=== PATIENT | female | born 1960 | race Caucasian/White ===

== ENCOUNTER 2017-09-27 08:07 | Emergency (ER) | payer SELFPAY ==
[2017-09-27 08:47] LABS: Absolute Lymphocytes (CBC) 1.7 K/uL (0.7-4.9); Absolute Monocytes 0.5 K/uL (0.1-1.3); Absolute Neutrophil 3.9 K/uL (1.8-8.0); Basophils % 0.5 % (0-1.3); Eosinophils % 0.3 % (0-4.4); Hematocrit 40.8 % (36.0-45.0); Lymphocytes % 27.5 % (15.3-44.8); MCH 35.8 pg (27.0-35.0); MCV 101.6 fL (80-100); MPV 8.2 fL (7.6-11.3); Monocytes % 8.5 % (3.3-12.3); RBC Red Blood Cell Count 4.02 M/uL (3.86-4.86)
[2017-09-27] MEDS ORDERED: NA CHLORIDE 0.9% 1,000 ML ONE (09:00)
[2017-09-27] MEDS ORDERED: ONDANSETRON 4 MG/2 ML VIAL ONE (09:00)
[2017-09-27 09:01] LABS: Potassium 3.8 mEq/L (3.6-5.0)
[2017-09-27 09:07] LABS: Bilirubin Direct 0.1 mg/dL (0-0.2); Protein, Total 8.7 g/dL (6.0-8.3)
--- NOTE | 2017-09-27 11:02 | RAD REPORT ---
EXAM DESCRIPTION: Jassi Everett (2 Views)09/27/2017 8:47 am CLINICAL HISTORY: Cough COMPARISON: 2016 FINDINGS: The lungs appear clear of acute infiltrate. The heart is normal size IMPRESSION: No acute abnormalities displayed
--- NOTE | 2017-09-27 11:18 | ER ---
Nurse's Notes [facility] Name: Billie Botello Age: 56 yrs Sex: Female : 1960 Arrival Date: 09/27/2017 Time: 08:09 Bed 7 Private MD: Diagnosis: Vomiting;Dehydration;Diarrhea, unspecified Presentation: 09/27 08:16 Presenting complaint: Patient states: "I have been sick a couple of days. I tried to go lk1 to work and I couldn't. I have indigestion and my arm is numb.". Transition of care: patient was not received from another setting of care. Onset of symptoms was September 23, 2017. Care prior to arrival: None. 08:16 Method Of Arrival: Ambulatory lk1 08:16 Acuity: NIKA 3 lk1 Triage Assessment: 08:18 General: Appears ill, Behavior is calm, cooperative, appropriate for age. Pain: lk1 Complains of pain in left clavicle and anterior aspect of left upper chest Pain currently is 7 out of 10 on a pain scale. GI: Reports vomiting. Historical: - Allergies: 08:18 Bactrim; lk1 - PMHx: 08:18 Diabetes - NIDDM; Hypertension; High Cholesterol; Pancreatitis; lk1 - PSHx: 08:18 ; lk1 - Immunization history:: Adult Immunizations up to date. - Social history:: Smoking status: Patient uses tobacco products, smokes one-half pack cigarettes per day. - Family history:: not pertinent. - Hospitalizations: : No recent hospitalization is reported. Screenin:43 Abuse screen: Denies threats or abuse. Denies injuries from another. Nutritional jl7 screening: No deficits noted. Tuberculosis screening: No symptoms or risk factors identified. Fall Risk IV access (20 points). Total Arias Fall Scale indicates No Risk (0-24 pts). Assessment: 08:43 General: Appears uncomfortable, Behavior is calm, cooperative, appropriate for age. jl7 Pain: Complains of pain in epigastric area Pain does not radiate. Pain Quality of pain is described as burning, Pain began this morning Is intermittent. Pain: Complains of pain in anterior aspect of left upper chest Pain does not radiate. Pain currently is 7 out of 10 on a pain scale. Pain began this morning Is continuous. Neuro: Level of Consciousness is awake, alert, obeys commands, Oriented to person, place, time, situation, Moves all extremities. Gait is steady, Speech is normal, Facial symmetry appears normal, Pupils are PERRLA. Cardiovascular: Heart tones S1 S2 present Patient's skin is warm and dry. Respiratory: Airway is patent Respiratory effort is even, unlabored, Respiratory pattern is regular, symmetrical, Breath sounds are clear bilaterally. GI: Abdomen is round non-distended, Bowel sounds present X 4 quads. : No signs and/or symptoms were reported regarding the genitourinary system. EENT: Derm: Skin is pink, warm \\T\\ dry. Musculoskeletal: No signs and/or symptoms reported regarding the musculoskeletal system. 09:45 Reassessment: No changes from previously documented assessment. Patient and/or family jl7 updated on plan of care and expected duration. Pain level reassessed. Patient is alert, oriented x 3, equal unlabored respirations, skin warm/dry/pink. 10:30 Reassessment: Assisted pt to bathroom, pt reported having diarrhea. Provider notified. jl7 Vital Signs: 08:18 BP 120 / 82; Pulse 101; Resp 18; Temp 97.8(TE); Pulse Ox 97% on R/A; Weight 83.91 kg lk1 (R); Height 5 ft. 4 in. (162.56 cm) (R); Pain 7/10; 08:42 BP 113 / 89; Pulse 87; Resp 16 S; Pulse Ox 98% on R/A; Pain 7/10; jl7 09:05 BP 121 / 88; Pulse 78; Resp 14 S; Pulse Ox 96% on R/A; jl7 09:30 BP 126 / 91; Pulse 71; Resp 14 S; Pulse Ox 97% on R/A; jl7 10:12 BP 130 / 83; Pulse 74; Resp 16 S; Pulse Ox 95% on R/A; jl7 11:25 BP 128 / 80; Pulse 73; Resp 16 S; Pulse Ox 97% on R/A; jl7 08:18 Body Mass Index 31.75 (83.91 kg, 162.56 cm) lk1 ED Course: 08:09 Patient arrived in ED. rg4 08:17 Triage completed. lk1 08:20 Arm band placed on right wrist. lk1 08:21 Hola Rodriguez MD is Attending Physician. rn 08:24 Barbara Schmitt, RN is Primary Nurse. jl7 08:42 Patient moved to radiology via wheelchair. jb2 08:43 X-ray completed. Patient tolerated procedure well. Patient moved back from radiology. jb2 08:43 XRAY Chest Pa And Lat (2 Views) In Process Unspecified. EDMS 08:43 Patient has correct armband on for positive identification. Placed in gown. Bed in low jl7 position. Call light in reach. Side rails up X 1. 7th grade teacher on. Pulse ox on. NIBP on. Warm blanket given. 08:43 Initial lab(s) drawn, by ca, sent to lab. Inserted saline lock: 20 gauge in left jl7 antecubital area, using aseptic technique. Blood collected. 08:46 EKG done, by renal dialysis technician. reviewed by Hola Rodriguez MD. tc 10:33 US Abdomen Limited In Process Unspecified. EDMS 11:30 No provider procedures requiring assistance completed. IV discontinued, intact, jl7 bleeding controlled, No redness/swelling at site. Pressure dressing applied. Administered Medications: 09:02 Drug: NS 0.9% 1000 ml Route: IV; Rate: 1000 ml; Site: left antecubital; jl7 10:00 Follow up: Response: No adverse reaction; IV Status: Completed infusion jl7 09:03 Drug: Zofran 4 mg Route: IVP; Site: left antecubital; jl7 09:30 Follow up: Response: No adverse reaction; Nausea is decreased jl7 Outcome: 11:17 Discharge ordered by . rn 11:30 Discharged to home ambulatory. jl7 11:30 Condition: stable 11:30 Discharge instructions given to patient, Instructed on discharge instructions, follow up and referral plans. medication usage, Demonstrated understanding of instructions, follow-up care, medications, Prescriptions given X 1. 11:31 Patient left the ED. jl7 Signatures: Dispatcher [employer] EDVT Steven Stiles jb2 Hola Rodriguez MD MD rn Callis, Tiffany, car head liner installer EKG Ttc Kate Rajput RN RN susan1 Sharla Abarca rg4 Barbara Schmitt, RN RN jl7
--- NOTE | 2017-09-27 11:18 | EDPHYS ---
Physician Documentation [facility] Name: Billie Botello Age: 56 yrs Sex: Female : 1960 Arrival Date: 09/27/2017 Time: 08:09 Bed 7 Private MD: ED Physician Hola Rodriguez HPI: 09/27 09:28 This 56 yrs old Female presents to ER via Ambulatory with complaints of rn Vomiting, Numbness Of Arm. 09:28 The patient presents to the emergency department with nausea, vomiting, abdominal pain, rn of the epigastric area and right upper quadrant. Onset: The symptoms/episode began/occurred today. Possible causes: unknown. The symptoms are aggravated by nothing. The symptoms are alleviated by nothing. Severity of symptoms: At their worst the symptoms were moderate in the emergency department the symptoms are unchanged. The patient has not experienced similar symptoms in the past. The patient has not recently seen a physician. Reports epigastric abd pain, RUQ pain, began just prior to arrival, has been having non-bilious/non-bloody emesis for 4 days, no chest pain, reports numbness of left arm today, has had multiple chest pain w/u here in this hospital with no abnormalities. Normal stool. . Historical: - Allergies: 08:18 Bactrim; lk1 - PMHx: 08:18 Diabetes - NIDDM; Hypertension; High Cholesterol; Pancreatitis; lk1 - PSHx: 08:18 ; lk1 - Immunization history:: Adult Immunizations up to date. - Social history:: Smoking status: Patient uses tobacco products, smokes one-half pack cigarettes per day. - Family history:: not pertinent. - Hospitalizations: : No recent hospitalization is reported. ROS: 09:28 Constitutional: Negative for fever, chills, and weight loss, Eyes: Negative for injury, rn pain, redness, and discharge, Neck: Negative for injury, pain, and swelling, Cardiovascular: Negative for chest pain, palpitations, and edema, Respiratory: Negative for shortness of breath, cough, wheezing, and pleuritic chest pain, Abdomen/GI: Negative for diarrhea, and constipation, Back: Negative for injury and pain, MS/Extremity: Negative for injury and deformity, Skin: Negative for injury, rash, and discoloration, Neuro: Negative for headache, weakness, and seizure. Exam: :28 Constitutional: This is a well developed, well nourished patient who is awake, alert, rn appears uncomfortable, holding right side Head/Face: Normocephalic, atraumatic. Eyes: Pupils equal round and reactive to light, extra-ocular motions intact. Lids and lashes normal. Conjunctiva and sclera are non-icteric and not injected. Cornea within normal limits. Periorbital areas with no swelling, redness, or edema. Neck: Trachea midline, no thyromegaly or masses palpated, and no cervical lymphadenopathy. Supple, full range of motion without nuchal rigidity, or vertebral point tenderness. No Meningismus. Cardiovascular: Regular rate and rhythm with a normal S1 and S2. No gallops, murmurs, or rubs. Normal PMI, no JVD. No pulse deficits. Respiratory: Lungs have equal breath sounds bilaterally, clear to auscultation and percussion. No rales, rhonchi or wheezes noted. No increased work of breathing, no retractions or nasal flaring. Abdomen/GI: soft, + epigastric and RUQ tenderness, no rebound, neg bautista Skin: Warm, dry with normal turgor. Normal color with no rashes, no lesions, and no evidence of cellulitis. MS/ Extremity: Pulses equal, no cyanosis. Neurovascular intact. Full, normal range of motion. Equal circumference. Neuro: Awake and alert, GCS 15, oriented to person, place, time, and situation. Cranial nerves II-XII grossly intact. Motor strength 5/5 in all extremities. Sensory grossly intact. 09:36 ECG was reviewed by the Attending Physician. rn Vital Signs: 08:18 BP 120 / 82; Pulse 101; Resp 18; Temp 97.8(TE); Pulse Ox 97% on R/A; Weight 83.91 kg lk1 (R); Height 5 ft. 4 in. (162.56 cm) (R); Pain 7/10; 08:42 BP 113 / 89; Pulse 87; Resp 16 S; Pulse Ox 98% on R/A; Pain 7/10; jl7 09:05 BP 121 / 88; Pulse 78; Resp 14 S; Pulse Ox 96% on R/A; jl7 09:30 BP 126 / 91; Pulse 71; Resp 14 S; Pulse Ox 97% on R/A; jl7 10:12 BP 130 / 83; Pulse 74; Resp 16 S; Pulse Ox 95% on R/A; jl7 11:25 BP 128 / 80; Pulse 73; Resp 16 S; Pulse Ox 97% on R/A; jl7 08:18 Body Mass Index 31.75 (83.91 kg, 162.56 cm) lk1 MDM: 08:21 Patient medically screened. rn 11:16 Differential diagnosis: gastritis, cholecystitis, pancreatitis, viral gastroenteritis, rn gastroenteritis. Data reviewed: vital signs, nurses notes, lab test result(s), EKG, radiologic studies, plain films, ultrasound, and as a result, I will discharge patient. Counseling: I had a detailed discussion with the patient and/or guardian regarding: the historical points, exam findings, and any diagnostic results supporting the discharge/admit diagnosis, lab results, radiology results, the need for outpatient follow up, to return to the emergency department if symptoms worsen or persist or if there are any questions or concerns that arise at home. Special discussion: I discussed with the patient/guardian in detail that at this point there is no indication for admission to the hospital. It is understood, however, that if the symptoms persist or worsen the patient needs to return immediately for re-evaluation. ED course: Pt now reports has been having concomitant diarrhea as well, no blood or dark color. Labs consistent with mild dehydration, normal WBC, normal h/h, normal u/s gallbladder, will dc home with zofran prn and pcp f/u. . 09/27 08:28 Order name: Basic Metabolic Panel; Complete Time: 09: rn 09/27 08:28 Order name: CBC with Diff; Complete Time: : rn 09/27 08:28 Order name: Creatinine for Radiology; Complete Time: : rn 09/27 08:28 Order name: Hepatic Function; Complete Time: 09: rn 09/27 08:28 Order name: Lipase; Complete Time: :09/27 08:28 Order name: Urine Microscopic Only rn 09/27 08:28 Order name: XRAY Chest Pa And Lat (2 Views); Complete Time: 11:15 09/27 08:28 Order name: Troponin (emerg Dept Use Only); Complete Time: 09: rn 09/27 08:28 Order name: EKG; Complete Time: 08:29 rn 09/27 10:07 Order name: US Abdomen Limited rn 09/27 11:30 Order name: Urine Dipstick--Ancillary (enter results) bd 09/27 11:31 Order name: Urine Dipstick-Ancillary EDMA 09/27 08:28 Order name: IV Saline Lock; Complete Time: 08:42 rn 09/27 08:28 Order name: Labs collected and sent; Complete Time: 08:42 rn 09/27 08:28 Order name: Urine Dipstick-Ancillary (obtain specimen); Complete Time: 13:28 rn 09/27 08:28 Order name: EKG - Nurse/Tech; Complete Time: 08:42 rn EC:36 Rate is 89 beats/min. Rhythm is regular. QRS [place] is Normal. [place] interval is normal. QRS rn interval is normal. QT interval is normal. No Q waves. T waves are Normal. No ST changes noted. Clinical impression: NSR w/ Non-specific ST/T Changes. Interpreted by me. Administered Medications: 09:02 Drug: NS 0.9% 1000 ml Route: IV; Rate: 1000 ml; Site: left antecubital; jl7 10:00 Follow up: Response: No adverse reaction; IV Status: Completed infusion jl7 09:03 Drug: Zofran 4 mg Route: IVP; Site: left antecubital; jl7 09:30 Follow up: Response: No adverse reaction; Nausea is decreased jl7 Disposition: 09/27/17 11:17 Discharged to Home. Impression: Vomiting, Dehydration, Diarrhea, unspecified. - Condition is Stable. - Discharge Instructions: Dehydration, Adult, Diarrhea, Nausea and Vomiting, Viral Gastroenteritis. - Prescriptions for Zofran ODT 4 mg Oral tablet,disintegrating - place 1 tablet by TRANSLINGUAL route every 8-10 hours As needed; 15 tablet. - Work release form, Medication Reconciliation Form, Thank You Letter, Antibiotic Education, Prescription Opioid Use form. - Follow up: Private Physician; When: As needed; Reason: Recheck today's complaints, Re-evaluation by your physician. - Problem is new. - Symptoms have improved. Signatures: Dispatcher [employer] EDMA Hola Rodriguez MD MD rn Kluge, Leah, RN RN lk1 Barbara Schmitt RN RN jl7
[2017-09-27 11:32] LABS: Urine Blood TRACE (NEG); Urine Glucose NEGATIVE (NEG); Urine Protein 3+ (NEG)
[2017-09-27 11:36] VITALS: TEMP 97.8
--- NOTE | 2017-09-27 11:37 | RAD REPORT ---
EXAM DESCRIPTION: US - Abdomen Exam Limited - 09/27/2017 10:33 am CLINICAL HISTORY: Right upper quadrant pain COMPARISON: May 2017 FINDINGS: No gallstones, sludge or other abnormalities within the gallbladder lumen. There is no wal l thickening or pericholecystic fluid. No common duct stone or biliary tree dilatation identified. IMPRESSION: Normal gallbladder and biliary tree ultrasound.
[2017-09-27 11:45] VITALS: BP 128/80; O2SAT 97
[2017-09-27 12:30] LABS: Urine Bacteria 20-50 /HPF (<20); Urine RBC <5 /HPF (NONE SEEN)
[2017-09-27 12:31] LABS: Urine Amorphous Sediment 2+ /HPF (NONE SEEN)
--- NOTE | 2017-09-27 16:27 | EKG ---
Test Date: 2017-09-27 Test Time: 08:26:27 Marine Consultant: NELA MEASUREMENT RESULTS: Intervals: Rate: 89 MI: 146 QRSD: 74 QT: 406 QTc: 493 [place]: P: -8 MI: 146 QRS: 17 T: 34 INTERPRETIVE STATEMENTS: Normal sinus rhythm Cannot rule out Anterior infarct, age undetermined Abnormal ECG Compared to ECG 08/14/2017 10:04:08 Myocardial infarct finding now present Electronically Signed On 09-27-17 16:24:59 CDT by Doug Gold
== END 2017-09-27 11:31 | disposition home or self-care (01) ==
LOC: ER 08:07
DX: I10 Essential (primary) hypertension; Z88.1 Allergy status to other antibiotic agents; F17.210 Nicotine dependence, cigarettes, uncomplicated; E86.0 Dehydration; R19.7 Diarrhea, unspecified
CPT/HCPCS: 36415; 71046; 76705; 80048; 80076; 81003; 81015; 83690; 84484; 85025; 93005; 96361; 96374; 99285; J2405; J7030

== ENCOUNTER 2017-12-06 09:16 | Emergency (ER) | payer SELFPAY ==
--- OUTSIDE RECORDS SUMMARY | 2017-12-06 09:19 | XMS REPORT ---
:1960 Author Organization e[employer] Care Team Providers Name Role Phone Nancy Oliva Provider Role Unavailable Allergies No Known Allergies Problems Problem Type Condition Code Onset Dates Condition Status Problem Type 2 diabetes mellitus without E11.9 Active complication Problem History of hypokalemia Z86.39 Active Problem Pain in left knee M25.562 Active Problem Vitamin D deficiency E55.9 Active Problem Other chronic pain G89.29 Active Problem Dizziness R42 Active Problem Uncontrolled type 2 diabetes E11.65 Active mellitus without complication, without long-term current use of insulin Problem Hypertension, unspecified type I10 Active Problem Hyperlipidemia, unspecified E78.5 Active hyperlipidemia type Problem Hypothyroidism, unspecified type E03.9 Active Problem Hyperlipidemia E78.5 Active Problem Hypothyroidism E03.9 Active Problem Depression F32.9 Active Problem Hypertension I10 Active Problem Allergic rhinitis, seasonal J30.2 Active Medications No Known Medications Results No Known Results Summary Purpose [employer] Submission
--- OUTSIDE RECORDS SUMMARY | 2017-12-06 09:19 | XMS REPORT ---
[...] Medications Results No Known Results Summary Purpose [employer] Submission
--- OUTSIDE RECORDS SUMMARY | 2017-12-06 09:19 | XMS REPORT ---
[...] Medications Results No Known Results Summary Purpose [employer] Submission
--- OUTSIDE RECORDS SUMMARY | 2017-12-06 09:19 | XMS REPORT ---
[...] Problem Allergic rhinitis, seasonal J30.2 Active Medications Medication Code Code Instructions Start End Date Status Dosage System Date Metformin HCl [facility] 29366256979 1000 MG Orally October 28, Active 1 tablet Twice a day 2017 with a meal Results No Known Results Summary Purpose [employer] Submission
--- OUTSIDE RECORDS SUMMARY | 2017-12-06 09:19 | XMS REPORT ---
:1960 Author Organization e[employer] Care Team Providers Name Role Phone Nancy Oliva Provider Role Unavailable Allergies, Adverse Reactions, Alerts Substance Reaction Event Type Sulfa Info Not Available Drug Allergy Problems Problem Type Condition Code Onset Dates Condition Status Problem Type 2 diabetes mellitus without E11.9 Active complication Problem History of hypokalemia Z86.39 Active Problem Pain in left knee M25.562 Active Problem Vitamin D deficiency E55.9 Active Assessment Uncontrolled type 2 diabetes E11.65 Active mellitus without complication, without long-term current use of insulin Problem Other chronic pain G89.29 Active Assessment Hyperlipidemia, unspecified E78.5 Active hyperlipidemia type Assessment Hypothyroidism, unspecified type E03.9 Active Problem Dizziness R42 Active Problem Uncontrolled type 2 diabetes E11.65 Active mellitus without complication, without long-term current use of insulin Problem Hypertension, unspecified type I10 Active Problem Hyperlipidemia, unspecified E78.5 Active hyperlipidemia type Problem Hypothyroidism, unspecified type E03.9 Active Assessment Dizziness R42 Active Assessment Other chronic pain G89.29 Active Assessment History of hypokalemia Z86.39 Active Assessment Hypertension, unspecified type I10 Active Problem Hyperlipidemia E78.5 Active Problem Hypothyroidism E03.9 Active Assessment Pain in left knee M25.562 Active Problem Depression F32.9 Active Assessment Vitamin D deficiency E55.9 Active Problem Hypertension I10 Active Problem Allergic rhinitis, seasonal J30.2 Active Medications Medication Code Code Instructions Start End Status Dosage System Date Date Cardura [facility] 09337075041 1 MG Orally Active 1 tablet Once a day Carvedilol [facility] 55562512421 12.5 MG Orally Active 1 tablet Twice daily Vitamin C [facility] 66128-53452 Orally Once a Active 1 tablet day Clonidine HCl [facility] 93103424095 0.1 MG Orally Active 1 tablet Once daily at bedtime Nitrofurantoin Monohyd [facility] 79708894676 100 MG Oral Active not Macro defined MetFORMIN HCl ER (OSM) ND 39017365155 1000 MG Orally October Active 1 tablet Twice daily 24, 2018 Simvastatin [facility] 18617047978 20 mg Orally Active 1 tablet Once a day Levothyroxine Sodium [facility] 78899290413 25 MCG Orally Active 1 tablet Once a day on an empty stomach in the morning Lisinopril [facility] 20416621515 20 mg Orally Active 1 tablet Once a day Potassium ND 0 Orally Once a Active 1 tablet day Hydrochlorothiazide [facility] 40843923703 12.5 MG Oral Active not defined Ondansetron [facility] 24362563880 4 MG Oral Active not defined Metformin HCl [facility] 18166112924 1000 MG Orally Active 1 tablet Twice a day with a meal Vitamin D-400 [facility] 9[address]70-60508 Orally Once a Active not day defined Results No Known Results Summary Purpose [employer] Submission
[2017-12-06] MEDS ORDERED: NA CHLORIDE 0.9% 500 ML ONE (10:38)
[2017-12-06 10:46] LABS: Absolute Lymphocytes (CBC) 1.2 K/uL (0.7-4.9); Absolute Monocytes 0.4 K/uL (0.1-1.3); Absolute Neutrophil 5.3 K/uL (1.8-8.0); Basophils % 0.5 % (0-1.3); Eosinophils % 0.9 % (0-4.4); Hematocrit 37.4 % (36.0-45.0); Lymphocytes % 17.1 % (15.3-44.8); MCH 35.6 pg (27.0-35.0); MCV 105.8 fL (80-100); MPV 8.4 fL (7.6-11.3); Monocytes % 5.8 % (3.3-12.3); RBC Red Blood Cell Count 3.53 M/uL (3.86-4.86)
[2017-12-06 10:48] LABS: Potassium 3.1 mEq/L (3.6-5.0)
[2017-12-06 10:59] LABS: Magnesium 1.4 mg/dL (1.8-2.5)
[2017-12-06] MEDS ORDERED: POTASSIUM CL SA 10 MEQ TAB PO ONE (11:03)
[2017-12-06] MEDS ORDERED: Magnesium Sulfate 2gm IVPB 2 G/50 ML BAG IV ONE (11:03)
[2017-12-06] MEDS ORDERED: ONDANSETRON 4 MG/2 ML VIAL ONE (11:03)
[2017-12-06 12:12] LABS: Urine Blood TRACE (NEG); Urine Glucose NEGATIVE (NEG); Urine Protein 2+ (NEG)
--- NOTE | 2017-12-06 12:50 | EDPHYS ---
Physician Documentation [facility] Name: Billie Botello Age: 57 yrs Sex: Female : 1960 Arrival Date: 12/06/2017 Time: 09:26 Bed 19 Private MD: ED Physician Hola Rodriguez HPI: 12/06 10:12 This 57 yrs old Female presents to ER via EMS with complaints of High Blood cp Sugar. 10:12 The patient or guardian reports hyperglycemia, dizziness that was potentially cp precipitated by no particular event, with the patient's symptoms witnessed by co-worker. Onset: The symptoms/episode began/occurred this morning. Associated signs and symptoms: Pertinent positives: dizziness. Historical: - Allergies: 09:30 Bactrim; jl7 - Home Meds: 09:30 carvedilol 6.25 mg Oral tab 2 tabs 2 times per day [Active]; lisinopril 20 mg Oral tab jl7 1 tab once daily [Active]; metformin 1,000 mg Oral tab [Active]; simvastatin 20 mg Oral tab 1 tab once daily [Active]; levothyroxine oral [Active]; - PMHx: 09:30 Diabetes - NIDDM; Hypertension; High Cholesterol; Pancreatitis; jl7 - PSHx: 09:30 Appendectomy; jl7 - Immunization history:: Adult Immunizations. - Social history:: Smoking status: Patient uses tobacco products, smokes one-half pack cigarettes per day, Patient uses alcohol, weekly. "About a pint of rum per week.". - Ebola Screening: : No symptoms or risks identified at this time. ROS: 10:20 Constitutional: Negative for body aches, chills, fever, poor PO intake. cp 10:20 Eyes: Negative for injury, pain, redness, and discharge. cp 10:20 ENT: Negative for drainage from ear(s), ear pain, sore throat, difficulty swallowing, difficulty handling secretions. 10:20 Neck: Negative for pain with movement, pain at rest, stiffness, tenderness. 10:20 Cardiovascular: Negative for chest pain, edema, palpitations. 10:20 Respiratory: Negative for cough, shortness of breath, wheezing. 10:20 Abdomen/GI: Negative for abdominal pain, nausea, vomiting, and diarrhea, constipation, anorexia, black/tarry stool, rectal bleeding. 10:20 Back: Negative for pain at rest, pain with movement, radiated pain. 10:20 : Negative for urinary symptoms, vaginal bleeding, vaginal discharge. 10:20 Skin: Negative for cellulitis, rash. 10:20 Neuro: Positive for dizziness, Negative for altered mental status, gait disturbance, headache, syncope, near syncope, weakness. 10:20 Endocrine: Positive for hyperglycemia, Negative for weight gain, weight loss. 10:20 All other systems are negative. Exam: 10:25 Constitutional: The patient appears in no acute distress, alert, awake, cp non-diaphoretic, non-toxic, well developed, well nourished. 10:25 Head/Face: Normocephalic, atraumatic. Eyes: Pupils equal round and reactive to light, cp extra-ocular motions intact. Lids and lashes normal. Conjunctiva and sclera are non-icteric and not injected. Cornea within normal limits. Periorbital areas with no swelling, redness, or edema. ENT: Nares patent. No nasal discharge, no septal abnormalities noted. Tympanic membranes are normal and external auditory canals are clear. Oropharynx with no redness, swelling, or masses, exudates, or evidence of obstruction, uvula midline. Mucous membranes moist. 10:25 Neck: External neck: is normal, ROM/movement: is normal, is supple, without pain, no range of motions limitations, no nuchal rigidity, Lymph nodes: no appreciated lymphadenopathy. 10:25 Chest/axilla: Inspection: normal, Palpation: is normal, no crepitus, no tenderness. 10:25 Cardiovascular: Rate: normal, Rhythm: regular, Pulses: Pulses are 2+ in right radial artery and left radial artery. Heart sounds: murmur, not appreciated, Edema: is not appreciated, JVD: is not appreciated. 10:25 Respiratory: the patient does not display signs of respiratory distress, Respirations: normal, no use of accessory muscles, no retractions, no splinting, no tachypnea, labored breathing, is not present, Breath sounds: are clear throughout, no decreased breath sounds, no stridor, no wheezing. 10:25 Abdomen/GI: Inspection: abdomen appears normal, Bowel sounds: active, all quadrants, Palpation: abdomen is soft and non-tender, in all quadrants, rebound tenderness, is not appreciated, voluntary guarding, is not appreciated, involuntary guarding, is not appreciated. 10:25 Back: pain, is absent, ROM is normal. 10:25 Skin: cellulitis, is not appreciated, no rash present. 10:25 Neuro: Orientation: to person, place \\T\\ time. Mentation: lucid, able to follow commands, Cerebellar function: is grossly normal, Motor: moves all fours, strength is normal, Sensation: no obvious gross deficits, Gait: is steady, at a normal pace, without difficulty. 11:42 ECG was reviewed by the Attending Physician. Vital Signs: 09:30 BP 115 / 75; Pulse 81; Resp 16 S; Temp 98.6(O); Pulse Ox 97% on R/A; Weight 81.65 kg jl7 (R); Height 5 ft. 4 in. (162.56 cm) (R); Pain 0/10; 10:37 BP 111 / 78 Supine; Pulse 87; Resp 20; Pulse Ox 96% ; 7 10:38 BP 126 / 86 Sitting; Pulse 92; Resp 21; Pulse Ox 98% ; 7 10:40 BP 106 / 86 Standing; Pulse 99; Resp 18; Pulse Ox 100% ; 7 11:46 BP 121 / 79; Pulse 96; Resp 17; Pulse Ox 94% on R/A; 5 12:45 BP 130 / 82; Pulse 85; Resp 16; Pulse Ox 100% ; 7 12:59 BP 115 / 87; Pulse 86; Resp 18; Pulse Ox 96% on R/A; 5 09:30 Body Mass Index 30.90 (81.65 kg, 162.56 cm) 7 MDM: 09:50 Patient medically screened. 11:00 Differential diagnosis: DKA, hyperglycemia, UTI, electrolyte abnormality, cardiac cp arrythmia. 12:48 Data reviewed: vital signs, nurses notes, lab test result(s), EKG, and as a result, I will discharge patient. 12:48 Test interpretation: by ED physician or midlevel provider: ECG. 12/06 10:10 Order name: CBC with Diff; Complete Time: 10:59 12/06 10:59 Interpretation: Normal except: RBC 3.53; MCV 105.8; MCH 35.6; BROOKS% 75.7. 12/06 10:10 Order name: BMP; Complete Time: 11:00 12/06 11:00 Interpretation: Normal except: K 3.1; CL 97; GLUC 143; BUN 35; CRE 1.41; GFR 38. cp / 10:10 Order name: Magnesium; Complete Time: 12:48 cp 05 12:48 Interpretation: Abnormal: MG 1.4. cp 12/06 11:57 Order name: Urine Dipstick--Ancillary (enter results); Complete Time: 12:48 bd 12/06 11:57 Order name: Urine --Ancillary (enter results); Complete Time: 12:48 bd 12/06 10:10 Order name: Orthostatics; Complete Time: 10:49 cp 12/06 10:10 Order name: Urine Dipstick-Ancillary (obtain specimen); Complete Time: 10:49 cp 12/06 10:10 Order name: Urine Test (obtain specimen); Complete Time: 10:49 cp 12/06 10:10 Order name: EKG; Complete Time: 10:10 cp EC:42 Rate is 86 beats/min. Rhythm is regular. OR interval is normal. QRS interval is normal. cp QT interval is normal. No ST changes noted. Interpreted by me. Reviewed by me. Administered Medications: 10:49 Drug: NS 0.9% 500 ml Route: IV; Rate: bolus; Site: right antecubital; jl7 11:08 Drug: Zofran 4 mg Route: IVP; Site: right antecubital; jl7 11:10 Drug: Magnesium Sulfate 2 grams Route: IVPB; Infused Over: 2 hrs; Site: right jl7 antecubital; 11:12 Drug: Potassium Chloride 40 mEq Route: PO; jl7 Point of Care Testing: Blood Glucose: 09:30 Blood Glucose: 167 mg/dL; jl7 Ranges: Critical Glucose Levels:Adult <50 mg/dl or >400 mg/dl <40 mg/dl or >180 mg/dl Disposition: 13:36 Co-signature as Attending Physician, Hola Rodriguez MD., rn 12/07 07:18 Co-signature as Attending Physician, Hola Rodriguez MD. rn Disposition: 12/06/17 12:49 Discharged to Home. Impression: Diabetes mellitus due to underlying condition with hyperglycemia, Hypomagnesemia, Hypokalemia. - Condition is Stable. - Discharge Instructions: Potassium Content of Foods, Hypomagnesemia, Blood Glucose Monitoring, Adult, Diabetes Mellitus and Food. - Prescriptions for magnesium - take 400 milligram by ORAL route once daily for 3 days; 3 tablet. Potassium Chloride 10 mEq Oral Capsule, Sustained Release - take 1 tablet by ORAL route every 12 hours for 3 days; 6 tablet. - Medication Reconciliation Form, Thank You Letter, Antibiotic Education, Prescription Opioid Use, Work release form form. - Follow up: Private Physician; When: 1 - 2 days; Reason: Recheck today's complaints. - Problem is new. - Symptoms have improved. Signatures: Dispatcher [employer] EDMS Hola Rodriguez MD MD rn Dallas Trujillo PA PA cp Leal, Jahala, RN RN jl7 Corrections: (The following items were deleted from the chart) 12/06 13:06 12:49 12/06/2017 12:49 Discharged to Home. Impression: Diabetes mellitus due to jl7 underlying condition with hyperglycemia; Hypomagnesemia; Hypokalemia. Condition is Stable. Forms are Medication Reconciliation Form, Thank You Letter, Antibiotic Education, Prescription Opioid Use. Follow up: Private Physician; When: 1 - 2 days; Reason: Recheck today's complaints. Problem is new. Symptoms have improved. cp
--- NOTE | 2017-12-06 12:50 | ER ---
Nurse's Notes [facility] Name: Billie Botello Age: 57 yrs Sex: Female : 1960 Arrival Date: 12/06/2017 Time: 09:26 Bed 19 Private MD: Diagnosis: Diabetes mellitus due to underlying condition with hyperglycemia;Hypomagnesemia;Hypokalemia Presentation: 12/06 09:26 Presenting complaint: EMS states: She was at work and started feeling shaky, FSBS was jl7 187 then checked again and it was 230. It was 201 for us. BP is on the low end for her 103/76, normal is 120/80, reported getting lightheaded when standing. Transition of care: patient was not received from another setting of care. Onset of symptoms was December 06, 2017 at 08:30. Risk Assessment: Do you want to hurt yourself or someone else? Patient reports no desire to harm self or others. Initial Sepsis Screen: Does the patient meet any 2 criteria? No. Patient's initial sepsis screen is negative. Does the patient have a suspected source of infection? No. Patient's initial sepsis screen is negative. Care prior to arrival: None. 09:26 Method Of Arrival: EMS: [facility] jl7 09:26 Acuity: NIKA 3 jl7 Triage Assessment: 09:30 General: Appears in no apparent distress. uncomfortable, Behavior is calm, Pt reports jl7 "I feel a lot better than I did when I was at work.". Pain: Denies pain. EENT: No deficits noted. Neuro: Level of Consciousness is awake, alert, obeys commands, Oriented to person, place, time, situation. Cardiovascular: Patient's skin is warm and dry. Respiratory: Airway is patent Respiratory effort is even, unlabored, Respiratory pattern is regular, symmetrical. GI: No signs and/or symptoms were reported involving the gastrointestinal system. Patient currently denies diarrhea, nausea, vomiting. : No signs and/or symptoms were reported regarding the genitourinary system. Derm: Skin is pink, warm \\T\\ dry. Musculoskeletal: No signs and/or symptoms reported regarding the musculoskeletal system. Historical: - Allergies: 09:30 Bactrim; jl7 - Home Meds: 09:30 carvedilol 6.25 mg Oral tab 2 tabs 2 times per day [Active]; lisinopril 20 mg Oral tab jl7 1 tab once daily [Active]; metformin 1,000 mg Oral tab [Active]; simvastatin 20 mg Oral tab 1 tab once daily [Active]; levothyroxine oral [Active]; - PMHx: 09:30 Diabetes - NIDDM; Hypertension; High Cholesterol; Pancreatitis; jl7 - PSHx: 09:30 Appendectomy; jl7 - Immunization history:: Adult Immunizations. - Social history:: Smoking status: Patient uses tobacco products, smokes one-half pack cigarettes per day, Patient uses alcohol, weekly. "About a pint of rum per week.". - Ebola Screening: : No symptoms or risks identified at this time. Screenin:33 Abuse screen: Denies threats or abuse. Denies injuries from another. Nutritional [facility] screening: No deficits noted. Tuberculosis screening: No symptoms or risk factors identified. Fall Risk IV access (20 points). Total Arias Fall Scale indicates No Risk (0-24 pts). Assessment: 10:59 Reassessment: Mag 1.4, provider notified of critical value. 7 Vital Signs: 09:30 BP 115 / 75; Pulse 81; Resp 16 S; Temp 98.6(O); Pulse Ox 97% on R/A; Weight 81.65 kg 7 (R); Height 5 ft. 4 in. (162.56 cm) (R); Pain 0/10; 10:37 BP 111 / 78 Supine; Pulse 87; Resp 20; Pulse Ox 96% ; 7 10:38 BP 126 / 86 Sitting; Pulse 92; Resp 21; Pulse Ox 98% ; 7 10:40 BP 106 / 86 Standing; Pulse 99; Resp 18; Pulse Ox 100% ; jl7 11:46 BP 121 / 79; Pulse 96; Resp 17; Pulse Ox 94% on R/A; 5 12:45 BP 130 / 82; Pulse 85; Resp 16; Pulse Ox 100% ; 7 12:59 BP 115 / 87; Pulse 86; Resp 18; Pulse Ox 96% on R/A; 5 09:30 Body Mass Index 30.90 (81.65 kg, 162.56 cm) [facility] ED Course: 09:26 Patient arrived in ED. 7 09:28 Triage completed. 7 09:30 Arm band placed on right wrist. jl7 09:33 Patient has correct armband on for positive identification. Placed in gown. Bed in low jl7 position. Call light in reach. Side rails up X 1. Pulse ox on. NIBP on. Warm blanket given. 09:50 Dallas Trujillo PA is PHCP. cp 09:50 Hola Rodriguez MD is Attending Physician. cp 09:59 Barbara Schmitt, RN is Primary Nurse. jl7 11:47 EKG done, by icu tech. reviewed by Dallas GARCIA. at1 13:06 No provider procedures requiring assistance completed. IV discontinued, intact, jl7 bleeding controlled, No redness/swelling at site. Pressure dressing applied. Administered Medications: 10:49 Drug: NS 0.9% 500 ml Route: IV; Rate: bolus; Site: right antecubital; jl7 11:08 Drug: Zofran 4 mg Route: IVP; Site: right antecubital; jl7 11:10 Drug: Magnesium Sulfate 2 grams Route: IVPB; Infused Over: 2 hrs; Site: right jl7 antecubital; 11:12 Drug: Potassium Chloride 40 mEq Route: PO; jl7 Point of Care Testing: Blood Glucose: 09:30 Blood Glucose: 167 mg/dL; jl7 Ranges: Outcome: 12:49 Discharge ordered by . cp 13:06 Discharged to home ambulatory. jl7 13:06 Condition: stable 13:06 Discharge instructions given to patient, Instructed on discharge instructions, follow up and referral plans. medication usage, Demonstrated understanding of instructions, follow-up care, medications, Prescriptions given X 2. 13:06 Patient left the ED. jl7 Signatures: Massiel centeno, commercial kitchen service technician EKG Tat1 Dallas Trujillo PA PA Rohini Carrillo 5 Barbara cShmitt, RN RN jl7
[2017-12-06 13:11] VITALS: TEMP 98.6
[2017-12-06 13:14] VITALS: O2SAT 100
[2017-12-06 13:15] VITALS: BP 130/82
--- NOTE | 2017-12-06 13:41 | EKG ---
Test Date: 2017-12-06 Test Time: 11:36:48 Resaw Machine Operator: STORM MEASUREMENT RESULTS: Intervals: Rate: 86 MO: 198 QRSD: 72 QT: 396 QTc: 473 [place]: P: 57 MO: 198 QRS: 8 T: 40 INTERPRETIVE STATEMENTS: Normal sinus rhythm Cannot rule out Anterior infarct, age undetermined Abnormal ECG Compared to ECG 09/27/2017 08:26:27 No significant changes Electronically Signed On 12-06-17 13:40:29 CDT by Doug Gold
== END 2017-12-06 13:06 | disposition home or self-care (01) ==
LOC: ER 09:16
DX: E11.65 Type 2 diabetes mellitus with hyperglycemia (principal); E83.42 Hypomagnesemia; E87.6 Hypokalemia; I10 Essential (primary) hypertension; E78.00 Pure hypercholesterolemia, unspecified; F17.210 Nicotine dependence, cigarettes, uncomplicated; Z88.1 Allergy status to other antibiotic agents
CPT/HCPCS: 36415; 80048; 81003; 81025; 82962; 83735; 85025; 93005; 96374; 96375; 99284; J2405; J3475

== ENCOUNTER 2017-12-29 08:52 | Inpatient (IN) | payer SELFPAY ==
--- OUTSIDE RECORDS SUMMARY | 2017-12-29 08:54 | XMS REPORT ---
[...] Medications Results No Known Results Summary Purpose [email or web address] Submission
--- OUTSIDE RECORDS SUMMARY | 2017-12-29 08:54 | XMS REPORT ---
[...] End Status Dosage System Date Date Cardura [facility] 20250092409 1 MG Orally Active 1 tablet Once a day Carvedilol [facility] 39728127797 12.5 MG Orally Active 1 tablet Twice daily Vitamin C [facility] 85698-62573 Orally Once a Active 1 tablet day Clonidine HCl [facility] 49265954862 0.1 MG Orally Active 1 tablet Once daily at bedtime Nitrofurantoin Monohyd [facility] 09877436479 100 MG Oral Active not Macro defined MetFORMIN HCl ER (OSM) ND 27905567323 1000 MG Orally October Active 1 tablet Twice daily 24, 2018 Simvastatin [facility] 37316025941 20 mg Orally Active 1 tablet Once a day Levothyroxine Sodium [facility] 30816708234 25 MCG Orally Active 1 tablet Once a day on an empty stomach in the morning Lisinopril [facility] 20173178446 20 mg Orally Active 1 tablet Once a day Potassium ND 0 Orally Once a Active 1 tablet day Hydrochlorothiazide [facility] 05131740447 12.5 MG Oral Active not defined Ondansetron [facility] 43125678176 4 MG Oral Active not defined Metformin HCl [facility] 77304596208 1000 MG Orally Active 1 tablet Twice a day with a meal Vitamin D-400 [facility] [address]-47817 Orally Once a Active not day defined Results No Known Results Summary Purpose eClinicalWorks Submission
--- OUTSIDE RECORDS SUMMARY | 2017-12-29 08:54 | XMS REPORT ---
[...] Medications Results No Known Results Summary Purpose [email or web address] Health Submission
--- OUTSIDE RECORDS SUMMARY | 2017-12-29 08:54 | XMS REPORT ---
[...] Date Status Dosage System Date Metformin HCl [facility] 91210295001 1000 MG Orally October 28, Active 1 tablet Twice a day 2017 with a meal Results No Known Results Summary Purpose eClinicalWorks Submission
--- OUTSIDE RECORDS SUMMARY | 2017-12-29 08:54 | XMS REPORT ---
[...] Medications Results No Known Results Summary Purpose [email or web address] Submission
[2017-12-29] MEDS ORDERED: NA CHLORIDE 0.9% 1,000 ML ONE (09:12)
[2017-12-29] MEDS ORDERED: ACETAMINOPHEN 500 MG TAB ONE (09:12)
[2017-12-29 09:26] LABS: Absolute Lymphocytes (CBC) 1.8 K/uL (0.7-4.9); Absolute Monocytes 0.5 K/uL (0.1-1.3); Absolute Neutrophil 5.1 K/uL (1.8-8.0); Basophils % 0.6 % (0-1.3); Eosinophils % 0.8 % (0-4.4); Hematocrit 38.5 % (36.0-45.0); Lymphocytes % 23.4 % (15.3-44.8); MCH 35.4 pg (27.0-35.0); MCV 107.4 fL (80-100); MPV 8.2 fL (7.6-11.3); Monocytes % 6.8 % (3.3-12.3); RBC Red Blood Cell Count 3.58 M/uL (3.86-4.86)
[2017-12-29 09:35] LABS: Protime INR 1.07
--- NOTE | 2017-12-29 09:44 | EKG ---
Test Date: 2017-12-29 Test Time: 09:11:55 Cashier Associate: STORM MEASUREMENT RESULTS: Intervals: Rate: 85 WV: 184 QRSD: 72 QT: 426 QTc: 506 [place]: P: 37 WV: 184 QRS: 24 T: 30 INTERPRETIVE STATEMENTS: Normal sinus rhythm Cannot rule out Anterior infarct, age undetermined Prolonged QT Abnormal ECG Compared to ECG 12/06/2017 11:36:48 Prolonged QT interval now present Myocardial infarct finding still present Electronically Signed On 12-29-17 09:43:57 CDT by Doug Gold
--- NOTE | 2017-12-29 09:48 | RAD REPORT ---
EXAM DESCRIPTION: CT - Head Brain Wo Cont - 12/29/2017 9:41 am CLINICAL HISTORY: Syncope COMPARISON: CT head August 2017 TECHNIQUE: Axial 5 mm thick images of the head were obtained without IV contrast. All CT scans are performed using dose optimization technique as appropriate and may include automated exposure control or mA/KV adjustment according to patient size. FINDINGS: No intracranial hemorrhage, mass, edema or shift of mid-line structures. No acute cortical based infarction. No cortical edema or sulcal effacement. Atrophy and chronic ischemic changes are p resent. Findings are not severe but are advanced for the patient's age. Physiologic calcifications ar e present. No abnormal extra-axial fluid collections. Ventricles are in proportion to volume loss. Mastoid air cells and visualized portions of the paranasal sinuses are clear. No acute bony findings. IMPRESSION: No hemorrhage, mass or acute intracranial finding. Advanced for age atrophy and chronic ischemic change similar to August 2017.
--- NOTE | 2017-12-29 09:49 | RAD REPORT ---
EXAM DESCRIPTION: RAD - Chest Single View - 12/29/2017 9:11 am CLINICAL HISTORY: Syncope, shortness of breath COMPARISON: September 2017 TECHNIQUE: AP portable chest image was obtained 0859 hours . FINDINGS: No acute lung parenchymal process. Lung findings are similar to comparison. Heart and vasc ulature are normal. No measurable pleural effusion and no pneumothorax. No gross bony abnormality see n. No acute aortic findings suspected. IMPRESSION: No acute cardiopulmonary process. No significant change from comparison.
[2017-12-29 09:52] LABS: Albumin 3.4 g/dL (3.4-5.0); Bilirubin Direct 0.2 mg/dL (0-0.2); Bilirubin Total 0.7 mg/dL (0.2-1.0); Potassium 3.8 mmol/L (3.5-5.1); Protein, Total 7.3 g/dL (6.4-8.2)
[2017-12-29 09:53] LABS: Magnesium 1.1 mg/dL (1.8-2.4)
--- NOTE | 2017-12-29 10:04 | EDPHYS ---
Physician Documentation [facility] Name: Billie Botello Age: 57 yrs Sex: Female : 1960 Arrival Date: 12/29/2017 Time: 08:58 Bed External Waiting Private MD: ED Physician Eduard Penaloza HPI: 12/29 17:25 This 57 yrs old Female presents to ER via EMS with complaints of Syncope, kdr Hypotension. 17:25 The patient has experienced syncope, became unresponsive, collapsed. kdr 17:29 Onset: The symptoms/episode began/occurred suddenly, just prior to arrival. Duration: kdr The patient has had multiple episodes, Lasts a few seconds. Context: occurred at work, occurred while the patient was at rest, sitting, Just prior to the episode the patient experienced dizziness, lightheadedness, weakness. Associated injury: The patient did not suffer any apparent associated injury. Associated signs and symptoms: Pertinent positives: confusion, diarrhea, dizziness, vomiting. Current symptoms: Generalized weakness. The patient has not experienced similar symptoms in the past. The patient has not recently seen a physician. Historical: - Allergies: 09:06 Bactrim; hb - Home Meds: 09:06 carvedilol 6.25 mg Oral tab 2 tabs 2 times per day [Active]; levothyroxine [Active]; hb lisinopril 20 mg Oral tab 1 tab once daily [Active]; metformin 1,000 mg Oral tab [Active]; simvastatin 20 mg Oral tab 1 tab once daily [Active]; - PMHx: 09:06 High Cholesterol; Hypertension; Diabetes - NIDDM; Pancreatitis; hb - PSHx: 09:06 Appendectomy; hb - Immunization history:: Adult Immunizations up to date. - Social history:: Smoking status: Patient/guardian denies using tobacco. - Ebola Screening: : No symptoms or risks identified at this time. ROS: 17:29 Constitutional: Negative for fever, chills, and weight loss, Eyes: Negative for injury, kdr pain, redness, and discharge, ENT: Negative for injury, pain, and discharge, Neck: Negative for injury, pain, and swelling, Cardiovascular: Negative for chest pain, palpitations, and edema, Respiratory: Negative for shortness of breath, cough, wheezing, and pleuritic chest pain, Abdomen/GI: Negative for abdominal pain, nausea, vomiting, diarrhea, and constipation, Back: Negative for injury and pain, : Negative for injury, bleeding, discharge, and swelling, MS/Extremity: Negative for injury and deformity, Skin: Negative for injury, rash, and discoloration, Psych: Negative for depression, anxiety, suicide ideation, homicidal ideation, and hallucinations, Allergy/Immunology: Negative for hives, rash, and allergies, Endocrine: Negative for neck swelling, polydipsia, polyuria, polyphagia, and marked weight changes, Hematologic/Lymphatic: Negative for swollen nodes, abnormal bleeding, and unusual bruising. 17:29 Neuro: Positive for dizziness, weakness, Negative for headache, numbness. Exam: 17:29 Constitutional: This is a well developed, well nourished patient who is awake, alert, kdr and in no acute distress. Head/Face: Normocephalic, atraumatic. Eyes: Pupils equal round and reactive to light, extra-ocular motions intact. Lids and lashes normal. Conjunctiva and sclera are non-icteric and not injected. Cornea within normal limits. Periorbital areas with no swelling, redness, or edema. ENT: Nares patent. No nasal discharge, no septal abnormalities noted. Tympanic membranes are normal and external auditory canals are clear. Oropharynx with no redness, swelling, or masses, exudates, or evidence of obstruction, uvula midline. Mucous membranes moist. Neck: Trachea midline, no thyromegaly or masses palpated, and no cervical lymphadenopathy. Supple, full range of motion without nuchal rigidity, or vertebral point tenderness. No Meningismus. Chest/axilla: Normal chest wall appearance and motion. Nontender with no deformity. No lesions are appreciated. Cardiovascular: Regular rate and rhythm with a normal S1 and S2. No gallops, murmurs, or rubs. Normal PMI, no JVD. No pulse deficits. Respiratory: Lungs have equal breath sounds bilaterally, clear to auscultation and percussion. No rales, rhonchi or wheezes noted. No increased work of breathing, no retractions or nasal flaring. Abdomen/GI: Soft, non-tender, with normal bowel sounds. No distension or tympany. No guarding or rebound. No evidence of tenderness throughout. Back: No spinal tenderness. No costovertebral tenderness. Full range of motion. Skin: Warm, dry with normal turgor. Normal color with no rashes, no lesions, and no evidence of cellulitis. MS/ Extremity: Pulses equal, no cyanosis. Neurovascular intact. Full, normal range of motion. Neuro: Awake and alert, GCS 15, oriented to person, place, time, and situation. Cranial nerves II-XII grossly intact. Motor strength 5/5 in all extremities. Sensory grossly intact. Cerebellar exam normal. Normal gait. Psych: Awake, alert, with orientation to person, place and time. Behavior, mood, and affect are within normal limits. Vital Signs: 09:04 BP 85 / 56; Pulse 87; Resp 15; Temp 98.1; Pulse Ox 100% ; Pain 0/10; hb 09:15 BP 82 / 59; Pulse 97; Resp 16 S; Pulse Ox 95% on R/A; Pain 3/10; aa5 09:25 BP 81 / 55; Pulse 87; Resp 16 S; Pulse Ox 95% on R/A; aa5 09:45 BP 80 / 68; Pulse 85; Resp 16 S; Pulse Ox 98% on R/A; Pain 0/10; aa5 09:54 BP 82 / 61; Pulse 82; Resp 16 S; Pulse Ox 97% on R/A; aa5 10:00 BP 93 / 66; Pulse 83; Resp 18 S; Pulse Ox 97% on R/A; aa5 10:10 BP 94 / 66; Pulse 80; Resp 16 S; Pulse Ox 97% on R/A; aa5 10:20 BP 96 / 63; Pulse 78; Resp 18 S; Pulse Ox 97% on R/A; aa5 10:30 BP 91 / 64; Pulse 80; Resp 16 S; Pulse Ox 96% on R/A; aa5 10:40 BP 103 / 51; Pulse 78; Resp 16 S; Pulse Ox 96% on R/A; aa5 11:00 BP 102 / 62; Pulse 78; Resp 16 S; Pulse Ox 95% on R/A; aa5 11:25 BP 111 / 73; Pulse 77; Resp 16 S; Pulse Ox 96% on R/A; aa5 11:45 BP 98 / 59; Pulse 78; Resp 16 S; Pulse Ox 95% on R/A; aa5 12:00 BP 105 / 94; Pulse 80; Resp 18 S; Pulse Ox 95% on R/A; aa5 MDM: 10:03 Patient medically screened. kdr 17:29 Data reviewed: vital signs, nurses notes, lab test result(s), radiologic studies. kdr Counseling: I had a detailed discussion with the patient and/or guardian regarding: the historical points, exam findings, and any diagnostic results supporting the discharge/admit diagnosis, lab results, radiology results, the need for further work-up and treatment in the hospital. 12/29 09:01 Order name: Basic Metabolic Panel; Complete Time: 09:54 [facility] 12/29 09:01 Order name: CBC with Diff; Complete Time: 09:53 [facility] 12/29 09:01 Order name: LFT's; Complete Time: 09:54 [facility] 12/29 09:01 Order name: Magnesium; Complete Time: 09:54 [facility] 12/29 09:01 Order name: NT PRO-BNP; Complete Time: 09:54 [facility] 12/29 09:01 Order name: PT-INR; Complete Time: 09:53 [facility] 12/29 09:01 Order name: Ptt, Activated; Complete Time: 09:53 [facility] 12/29 09:01 Order name: Troponin (emerg Dept Use Only); Complete Time: 09:53 [facility] 12/29 09:01 Order name: XRAY Chest (1 view); Complete Time: 09:53 [facility] 12/29 09:01 Order name: CT Head Brain wo Cont; Complete Time: 09:53 [facility] 12/29 10:39 Order name: CT Abd/Pelvis - Without Cont [facility] 12/29 11:18 Order name: CT; Complete Time: 11:23 EDID 12/29 11:55 Order name: US; Complete Time: 12:26 EDID 12/29 12:09 Order name: Urine Dipstick--Ancillary (enter results) em1 12/29 09:01 Order name: EKG; Complete Time: 09:02 [facility] 12/29 09:01 Order name: Cardiac monitoring; Complete Time: 09:20 [facility] 12/29 09:01 Order name: EKG - Nurse/Tech; Complete Time: 09:20 [facility] 12/29 09:01 Order name: IV Saline Lock; Complete Time: 09:20 [facility] 12/29 09:01 Order name: Labs collected and sent; Complete Time: 09:20 [facility] 12/29 09:01 Order name: O2 Per Protocol; Complete Time: 09:20 [facility] 12/29 09:01 Order name: O2 Sat Monitoring; Complete Time: : kdr 12/29 09:01 Order name: Urine Dipstick-Ancillary (obtain specimen); Complete Time: 12: [facility] Administered Medications: Drug: NS 0.9% 1000 ml Route: IV; Rate: 1 bolus; Site: left antecubital; aa5 :18 Follow up: Pt also given remaining EMS 400cc NS per Dr. Penaloza's VO. aa5 10:40 Follow up: IV Status: Completed infusion; IV Intake: 1400ml aa5 :18 Drug: Tylenol 1000 mg Route: PO; aa5 09:52 Follow up: Response: No adverse reaction; Pain is decreased aa5 10:05 Drug: Magnesium Sulfate 2 grams Route: IVPB; Infused Over: 2 hrs; Site: left aa5 antecubital; 12:05 Follow up: Response: No adverse reaction; IV Status: Completed infusion aa5 Disposition: 12/29/17 10:03 Hospitalization ordered by Jim Gilman for Inpatient Admission. Preliminary diagnosis are Syncope and collapse, Hypotension, Weakness, Hypomagnesemia. - Bed requested for Intensive Care Unit. - Status is Inpatient Admission. iw - Condition is Serious. - Problem is new. - Symptoms have improved. UTI on Admission? No Signatures: Dispatcher [employer] EDMS Eduard Penaloza MD MD [facility] Celia Anderson RN RN Cynthia Pope RN RN aa5 Sergo Medina PA PA jr8 Jennifer Garcia Layne Billingsley RN RN Corrections: (The following items were deleted from the chart) 10:04 10:03 Hospitalization Ordered by Jim Gilman DO for Inpatient Admission. Preliminary [facility] diagnosis is Syncope and collapse; Hypotension; Weakness. Bed requested for Intensive Care Unit. Status is Inpatient Admission. Condition is Serious. Problem is new. Symptoms have improved. UTI on Admission? No. kdr 11:35 10:04 12/29/2017 10:03 Hospitalization Ordered by Jim Gilman DO for Inpatient ag Admission. Preliminary diagnosis is Syncope and collapse; Hypotension; Weakness; Hypomagnesemia. Bed requested for Intensive Care Unit. Status is Inpatient Admission. Condition is Serious. Problem is new. Symptoms have improved. UTI on Admission? No. kdr 12:34 11:35 12/29/2017 10:03 Hospitalization Ordered by Jim Gilman DO for Inpatient iw Admission. Preliminary diagnosis is Syncope and collapse; Hypotension; Weakness; Hypomagnesemia. Bed requested for Intensive Care Unit. Status is Inpatient Admission. Condition is Serious. Problem is new. Symptoms have improved. UTI on Admission? No. ag
--- NOTE | 2017-12-29 10:04 | ER ---
Nurse's Notes [facility] Name: Billie Botello Age: 57 yrs Sex: Female : 1960 Arrival Date: 12/29/2017 Time: 08:58 Bed External Waiting [facility] MD: Diagnosis: Syncope and collapse;Hypotension;Weakness;Hypomagnesemia Presentation: 12/29 08:58 Presenting complaint: EMS states: Witnessed syncopal episode while sitting in chair at work. Pt reports severe nausea before passing out, now c/o nausea and headache. On scene initial BP 50s, unable to palpate radial pulse, skin pale and diaphoretic. SBP 80s, HR 100 after 600ml NS. BGL 140. Transition of care: patient was not received from another setting of care. Onset of symptoms was December 29, 2017. Risk Assessment: Do you want to hurt yourself or someone else? Patient reports no desire to harm self or others. Care prior to arrival: Medication(s) given: 600ml IV initiated. 18 GA, in the right wrist, Glucose check: 140. 08:58 Method Of Arrival: EMS: [facility] 08:58 Acuity: NIKA 2 hb 09:15 Initial Sepsis Screen: Does the patient meet any 2 criteria? Systolic BP < 90 mmHg. aa5 Does the patient have a suspected source of infection? No. Patient's initial sepsis screen is negative. Historical: - Allergies: 09:06 Bactrim; hb - Home Meds: 09:06 carvedilol 6.25 mg Oral tab 2 tabs 2 times per day [Active]; levothyroxine [Active]; hb lisinopril 20 mg Oral tab 1 tab once daily [Active]; metformin 1,000 mg Oral tab [Active]; simvastatin 20 mg Oral tab 1 tab once daily [Active]; - PMHx: 09:06 High Cholesterol; Hypertension; Diabetes - NIDDM; Pancreatitis; hb - PSHx: 09:06 Appendectomy; hb - Immunization history:: Adult Immunizations up to date. - Social history:: Smoking status: Patient/guardian denies using tobacco. - Ebola Screening: : No symptoms or risks identified at this time. Screenin:07 Abuse screen: Denies threats or abuse. Denies injuries from another. Nutritional hb screening: No deficits noted. Tuberculosis screening: No symptoms or risk factors identified. Fall Risk Total Arias Fall Scale indicates Low Risk Score (25-44 pts). Fall prevention measures have been instituted. Side Rails Up X 2 Frequent Obs/Assesments occuring As available Patient and Family Educated on Fall Prevention Program and strategies. Assessment: 09:15 Reassessment: Pt requesting for 18 G to R wrist to be dc'd, pt states "the IV is just aa5 rubbing against my bone, it feels like". 18G to R wrist was dc'd per pt's request, catheter intact, bleeding controlled, pressure dressing applied. . 09:15 General: Appears uncomfortable, Behavior is calm, cooperative. Pain: Complains of pain aa5 in right congregation and left congregation Pain does not radiate. Pain currently is 3 out of 10 on a pain scale. Quality of pain is described as aching, Pain began "just when I got here" Is continuous. Neuro: Level of Consciousness is awake, alert, obeys commands, Oriented to person, place, time, situation, Crm Marketing Analyst are weak bilaterally Moves all extremities. Speech is normal, Facial symmetry appears normal, Pupils are PERRLA, Reports headache frontal area, Feeling dizzy only with repositioning that began after syncopal episode. . Cardiovascular: Heart tones S1 S2 present Rhythm is regular. Respiratory: Airway is patent Respiratory effort is even, unlabored, Respiratory pattern is regular, symmetrical, Breath sounds are clear bilaterally. GI: Abdomen is round non-distended, Bowel sounds present X 4 quads. Abd is soft and non tender X 4 quads. 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 Patient currently denies bloody stool, nausea. : No signs and/or symptoms were reported regarding the genitourinary system. EENT: No signs and/or symptoms were reported regarding the EENT system. Derm: Skin is dry, Skin is pale, Skin temperature is warm. Musculoskeletal: Range of motion: limited in left knee Knee brace noted to left knee. Pt states "I have problems with the ligaments on my left knee so I wear the brace". Injury Description: Pt denies fall. Pt states "my co-workers were able to sit me in a chair before I passed out". 09:50 Reassessment: Patient and/or family updated on plan of care and expected duration. Pain aa5 level reassessed. Patient is alert, oriented x 3, equal unlabored respirations, skin warm/dry/pink. Pt back from CT. Pt currently denies headache, denies nausea. Pt sitting up in bed with eyes closed, bed remains in low position and locked, side rails x 2, call navarrete within reach. . 10:10 Reassessment: Patient and/or family updated on plan of care and expected duration. Pain aa5 level reassessed. Patient is alert, oriented x 3, equal unlabored respirations, skin warm/dry/pink. Patient denies pain at this time. 10:50 Reassessment: Dr. Gilman at bedside . aa5 11:25 Reassessment: Patient and/or family updated on plan of care and expected duration. Pain aa5 level reassessed. Patient is alert, oriented x 3, equal unlabored respirations, skin warm/dry/pink. Patient denies pain at this time. US at bedside . 12:00 Reassessment: Patient and/or family updated on plan of care and expected duration. Pain aa5 level reassessed. Patient is alert, oriented x 3, equal unlabored respirations, skin warm/dry/pink. Patient denies pain at this time. 12:30 Reassessment: Pt taken to MRI via stretcher . aa5 13:00 Reassessment: Patient is alert, oriented x 3, equal unlabored respirations, skin aa5 warm/dry/pink. Patient denies pain at this time. Vital Signs: 09:04 BP 85 / 56; Pulse 87; Resp 15; Temp 98.1; Pulse Ox 100% ; Pain 0/10; hb 09:15 BP 82 / 59; Pulse 97; Resp 16 S; Pulse Ox 95% on R/A; Pain 3/10; aa5 09:25 BP 81 / 55; Pulse 87; Resp 16 S; Pulse Ox 95% on R/A; aa5 09:45 BP 80 / 68; Pulse 85; Resp 16 S; Pulse Ox 98% on R/A; Pain 0/10; aa5 09:54 BP 82 / 61; Pulse 82; Resp 16 S; Pulse Ox 97% on R/A; aa5 10:00 BP 93 / 66; Pulse 83; Resp 18 S; Pulse Ox 97% on R/A; aa5 10:10 BP 94 / 66; Pulse 80; Resp 16 S; Pulse Ox 97% on R/A; aa5 10:20 BP 96 / 63; Pulse 78; Resp 18 S; Pulse Ox 97% on R/A; aa5 10:30 BP 91 / 64; Pulse 80; Resp 16 S; Pulse Ox 96% on R/A; aa5 10:40 BP 103 / 51; Pulse 78; Resp 16 S; Pulse Ox 96% on R/A; aa5 11:00 BP 102 / 62; Pulse 78; Resp 16 S; Pulse Ox 95% on R/A; aa5 11:25 BP 111 / 73; Pulse 77; Resp 16 S; Pulse Ox 96% on R/A; aa5 11:45 BP 98 / 59; Pulse 78; Resp 16 S; Pulse Ox 95% on R/A; aa5 12:00 BP 105 / 94; Pulse 80; Resp 18 S; Pulse Ox 95% on R/A; aa5 ED Course: 08:58 Patient arrived in ED. hb 08:59 Eduard Penaloza MD is Attending Physician. kdr 09:04 Triage completed. hb 09:06 Arm band placed on right wrist. hb 09:08 X-ray completed. Portable x-ray completed in exam room. Patient tolerated procedure jb2 well. 09:10 XRAY Chest (1 view) In Process Unspecified. EDMS 09:10 Initial lab(s) drawn, by me, sent to lab. Missed attempt(s): 20 gauge in right iw antecubital area. Inserted saline lock: 20 gauge in left antecubital area, using aseptic technique. Blood collected. 09:15 Patient has correct armband on for positive identification. Placed in gown. Bed in low aa5 position. Call light in reach. Side rails up X2. 09:15 cafeteria monitor on. Pulse ox on. NIBP on. aa5 09:20 Cynthia Pope, TEE is Primary Nurse. aa5 09:20 EKG done, by mineral surveying technician. reviewed by Eduard Penaloza MD. at1 09:21 No provider procedures requiring assistance completed. aa5 09:41 CT Head Brain wo Cont In Process Unspecified. EDMS 10:03 Jim Gilman DO is Hospitalizing Provider. kdr 10:56 CT completed. Patient tolerated procedure well. Patient moved to CT via stretcher. sj Patient moved back from CT. 11:51 Ultrasound completed. Patient tolerated well. aa4 13:00 Patient admitted, IV remains in place. aa5 Administered Medications: :18 Drug: NS 0.9% 1000 ml Route: IV; Rate: 1 bolus; Site: left antecubital; aa5 :18 Follow up: Pt also given remaining EMS 400cc NS per Dr. Penaloza's VO. aa5 10:40 Follow up: IV Status: Completed infusion; IV Intake: 1400ml aa5 :18 Drug: Tylenol 1000 mg Route: PO; aa5 09:52 Follow up: Response: No adverse reaction; Pain is decreased aa5 10:05 Drug: Magnesium Sulfate 2 grams Route: IVPB; Infused Over: 2 hrs; Site: left aa5 antecubital; 12:05 Follow up: Response: No adverse reaction; IV Status: Completed infusion aa5 Intake: 10:40 IV: 1400ml; Total: 1400ml. aa5 Outcome: 10:03 Decision to Hospitalize by Provider. kdr 13:00 Admitted to ICU accompanied by nurse, via stretcher, on monitor, with chart, Report aa5 called to TEE Ibarra 13:00 Condition: stable 13:00 Instructed on the need for admit, Demonstrated understanding of instructions. Signatures: Dispatcher [employer] EDMS Eduard Penaloza MD MD kdr Buechter, Jesse jb2 Jones, Susan sj Williams, Irene, TEE OLIVEIRA iw Massiel Swartz aa4 Cynthia Pope RN RN aa5 Massiel centeno, movable bulkhead installer EKG Tat1 Layne Billingsley RN RN Corrections: (The following items were deleted from the chart) 14:24 12:34 Patient left the ED. iw aa5
[2017-12-29] MEDS ORDERED: Magnesium Sulfate 2gm IVPB 2 G/50 ML BAG IV ONE (10:14)
[2017-12-29] MEDS ORDERED: ONDANSETRON 4 MG/2 ML VIAL IV PRN (10:59)
[2017-12-29] MEDS ORDERED: D50W 25 GM/50 ML SYRINGE IV PRN (10:59)
[2017-12-29] MEDS ORDERED: SODIUM CHLORIDE 0.9% 10ML INJ IV PRN (10:59)
[2017-12-29] MEDS ORDERED: GLUCAGON 1 MG/VIAL IM PRN (10:59)
[2017-12-29] MEDS ORDERED: ACETAMINOPHEN 500 MG TAB PO PRN (10:59)
--- NOTE | 2017-12-29 11:18 | RAD REPORT ---
EXAM DESCRIPTION: CT - Abdomen Pelvis Wo Contrast - 12/29/2017 10:59 am CLINICAL HISTORY: Abdominal pain /nausea COMPARISON: May 2017 TECHNIQUE: Computed axial tomography of the abdomen and pelvis was obtained. IV and oral contrast we re not requested. All CT scans are performed using dose optimization technique as appropriate and may include automated exposure control or mA/KV adjustment according to patient size. FINDINGS: The evaluation of solid organs, vessels and bowel is limited secondary to the lack of con trast administration. The wall of the distal esophagus appears thickened. The liver, spleen, pancreas, adrenals and kidneys appear grossly normal. Diverticula stem from the colon without evidence of diverticulitis. IMPRESSION: Apparent thickening of the wall of the distal esophagus may indicate esophagitis
[2017-12-29] MEDS ORDERED: INSULIN -REGULAR HUMAN 50 UNIT/0.5 ML ML SQ SCH (11:30)
[2017-12-29] MEDS: INSULIN -REGULAR HUMAN 50 UNIT/0.5 ML ML SQ SCH ×3 (11:30→21:00)
--- NOTE | 2017-12-29 11:54 | P.HP ---
Certification for Inpatient Patient admitted to: Inpatient With expected LOS: >2 Midnights Patient will require the following post-hospital care: None Practitioner: I am a practitioner with admitting privileges, knowledge of patient current condition, hospital course, and medical plan of care. Services: Services provided to patient in accordance with Admission requirements found in Title 42 Section 412.3 of the Code of Federal Regulations Patient History Date of Service: 12/29/17 Primary Care Provider: Dr. Oliva Reason for admission: Syncope History of Present Illness: 57-year-old female present emergency room with a syncopal episode. Patient reported some nausea, vomiting, diarrhea since Tuesday. Today she went to work. Her coworkers noted that she was pale. She did report some dizziness. Upon walking to the break room the patient had a syncopal episode. She denied any chest pain, palpitations. She did report a mild headache. The patient has diabetes, hypertension, hyperlipidemia. Patient on multiple blood pressure medications. She took medication this morning. Patient also takes metformin. In the ER patient was found to be hypotensive. Patient given IV fluids-2 liters. On lab white count 7.5, hemoglobin 12.7. Sodium 133, potassium 3.8. BUN of 33, creatinine 2.0 with a GFR 26. This has been a change from previous lab. AST 70, ALT 64. Troponin less than 0.02. BNP unremarkable. INR unremarkable. CT of the head showed no acute changes. Atrophy with chronic ischemic changes noted, advanced for her age. CT scan showed possible esophagitis. Due to the nature the findings the patient was admitted to ICU. When I saw the patient ER, she appeared stable. Blood pressure improved with hydration. Patient admits taking multiple medications for blood pressure. She did take her medications today. Patient also takes metformin. Patient was evaluated May 2017 for chest pain. At that time heart catheterization showed normal coronaries with normal ejection fraction. Patient does smoke. She also drinks on occasion. Patient reports some abdominal pain to the left lower quadrant. This is mild. She also reports some mild epigastric pain. Allergies sulfamethoxazole [From Bactrim] Allergy (Intermediate, Verified 05/09/12 16:51) Rash trimethoprim [From Bactrim] Allergy (Intermediate, Verified 05/09/12 16:51) Rash Sulfa (Sulfonamide Antibiotics) Allergy (Verified 05/27/17 01:47) Unknown Home medications list reviewed: Yes Home Medications: Lisinopril [Prinivil*] 20 mg PO BID 11/21/15 Carvedilol [Coreg*] 12.5 mg PO BID #60 tab 11/24/15 Levothyroxine Sodium [Unithroid] 25 mcg PO DAILY #30 tablet 11/24/15 Metformin HCl [Glucophage] 1,000 mg PO BID* 01/17/16 Cholecalciferol (Vitamin D3) [Vitamin D 1000 Iu Tab*] 1 tab PO DAILY 05/27/17 Potassium Gluconate [Potassium] 1 tab PO DAILY 05/27/17 Simvastatin 10 mg PO DAILY 05/27/17 Nitrofuran Macro [Macrobid] 100 mg PO BID #14 cap 05/30/17 - Past Medical/Surgical History Diabetic: Yes -: HTN -: Hyperlipidemia -: Hypothyroidism -: GERD -: Tobacco abuse -: -: R wrist Sx (metal plate) -: rectal polyps removed Psychosocial/ Personal History: The patient is single. She has 1 child. She works at [employer] - Family History Mother -: Heart disease, Cancer (Lymphoma) Notes: lymphoma Father -: Heart disease - Social History Smoking Status: Light Tobacco smoker (1-9 cigarettes/day) Counseled patient to stop smoking for: less than 10 minutes Smoking therapy provided: Yes Patient receptive to therapy: Yes Alcohol use: Yes CD- Drugs: No Caffeine use: Yes Place of Residence: Home Review of Systems General: Weakness, Malaise, As per HPI Eyes: Unremarkable ENT: Unremarkable Respiratory: Unremarkable Cardiovascular: Light Headedness, As per HPI Gastrointestinal: Nausea, Vomiting, Abdominal Pain, Diarrhea, As per HPI Genitourinary: Unremarkable Musculoskeletal: Unremarkable Integumentary: Unremarkable Neurological: Weakness, As per HPI Lymphatics: Unremarkable Physical Examination - Physical Exam General: Alert, In no apparent distress, Oriented x3, Cooperative HEENT: Atraumatic, Normocephalic, Other (Dry mucous membranes) Neck: Supple Respiratory: Clear to auscultation bilaterally, Normal air movement Cardiovascular: Normal pulses, Regular rate/rhythm Gastrointestinal: Normal bowel sounds, Soft and benign, Non-distended, No masses , No rebound, No guarding, Tenderness (Minimal pain to the epigastric region) Musculoskeletal: No erythema, No tenderness, No warmth Integumentary: No tenderness/swelling, No erythema, No warmth, No cyanosis, Other (Dry skin) Neurological: Normal speech, Normal strength at 5/5 x4 extr, Normal tone, Normal affect Lymphatics: No axilla or inguinal lymphadenopathy - Studies Laboratory Data (last 24 hrs) 12/29/17 09:10: PT 12.6 H, INR 1.07, APTT 22.2 L 12/29/17 09:10: WBC 7.5, Hgb 12.7, Hct 38.5, Plt Count 401 12/29/17 09:10: Sodium 133 L, Potassium 3.8, BUN 33 H, Creatinine 2.00 H, Glucose 177 H, Magnesium 1.1 L*, Total Bilirubin 0.7, AST 78 H, ALT 64, Alkaline Phosphatase 63 Assessment and Plan - Problems (Diagnosis) (1) Nausea & vomiting Current Visit: Yes Status: Acute Plan: Will provide medication. Qualifiers: Vomiting type: unspecified Vomiting Intractability: unspecified Qualified Code(s): R11.2 - Nausea with vomiting, unspecified (2) Diarrhea Current Visit: Yes Status: Acute Plan: Likely infectious. Will check stool for C diff. Will start IV Zosyn. Stool cultures obtained. Will monitor closely. Will continue with IV fluids. Qualifiers: Diarrhea type: unspecified type Qualified Code(s): R19.7 - Diarrhea, unspecified (3) GERD (gastroesophageal reflux disease) Current Visit: Yes Status: Suspected Plan: CT scan showed possible esophagitis. Will start PPI. Qualifiers: Esophagitis presence: with esophagitis Qualified Code(s): K21.0 - Gastro- esophageal reflux disease with esophagitis (4) Diabetes mellitus Current Visit: Yes Status: Chronic Plan: Will check A1c. We will continue sliding scale. Will hold metformin due to her acute renal insufficiency. Qualifiers: Diabetes mellitus type: type 2 Diabetes mellitus [facility] insulin use: without [facility] use Diabetes mellitus complication status: with other specified complication Qualified Code(s): E11.69 - Type 2 diabetes mellitus with other specified complication (5) Renal insufficiency Current Visit: Yes Status: Acute Plan: Likely from dehydration, diarrhea, and medication. Will hold lisinopril, metformin. Will also hold other blood pressure medication. Will continue IV fluids. Patient will be sent to the ICU for close monitoring. Previous heart catheterization done in May showed normal coronaries. Will evaluate for possible stroke which is less likely. Nephrology consulted to further evaluate. (6) Tobacco abuse Current Visit: Yes Status: Chronic Plan: Will provide nicotine patch. (7) Elevated liver function tests Current Visit: Yes Status: Chronic Plan: Will send for hepatitis panel (8) Hypomagnesemia Onset Date: 11/24/15 Current Visit: No Status: Acute Plan: Will monitor and replace. Replacement protocol in place. (9) Syncope Onset Date: 02/28/15 Current Visit: No Status: Acute Plan: Likely multifactorial. Patient dehydrated from nausea, vomiting and diarrhea. Will evaluate for infectious cause. Will send stool study for C diff. Will continue IV Zosyn and IV fluids. Will hold blood pressure medication and metformin. Will continue evaluation for possible CVA, less likely. CT scan brain shows chronic changes advanced for her age. CT abdomen and shows esophagitis. Will start PPI. Neurology consulted along with cardiology. Will discuss further with them. Previous heart catheterization showed normal ejection fraction and coronaries. Qualifiers: Encounter type: initial encounter (10) Hyperlipidemia Onset Date: 11/24/15 Current Visit: No Status: Chronic Plan: Will start Lipitor. Will check lipid panel. Qualifiers: Hyperlipidemia type: mixed hyperlipidemia Qualified Code(s): E78.2 - Mixed hyperlipidemia (11) Hypertension Onset Date: 11/24/15 Current Visit: No Status: Chronic Plan: Will hold blood pressure medication at this time. Continue as above. Qualifiers: Hypertension type: essential hypertension Qualified Code(s): I10 - Essential (primary) hypertension Discharge Plan: Home Plan to discharge in: 48 Hours - Advance Directives Does patient have a Living Will: No Does patient have a Durable POA for Healthcare: No - Code Status/Comfort Care Code Status Assessed: Yes Time Spent Managing Pts Care (In Minutes): 55
--- NOTE | 2017-12-29 11:55 | RAD REPORT ---
EXAM DESCRIPTION: VASCarotid Artery Bilateral12/29/2017 11:46 am CLINICAL HISTORY: Syncope COMPARISON: None FINDINGS: The velocity of the right internal carotid artery equals 67 cm/sec. The right ICA/CCA rati o 0.7 The velocity of the left internal carotid artery equals 82 cm/sec. The left ICA/CCA ratio point Mild to moderate plaque is present within the carotid arteries. The vertebral arteries demonstrate antegrade flow IMPRESSION: Mild to moderate plaque within the carotid arteries without evidence of a hemodynamicall y significant stenosis
[2017-12-29 13:16] LABS: Urine Blood NEGATIVE (NEG); Urine Glucose NEGATIVE (NEG); Urine Protein 3+ (NEG); Urine pH 5.5 (5.0-7.0)
--- NOTE | 2017-12-29 13:29 | RAD REPORT ---
EXAM DESCRIPTION: MRI - Brain Wo Cont - 12/29/2017 1:13 pm CLINICAL HISTORY: Syncope COMPARISON: August [address] TECHNIQUE: Axial, sagittal, and coronal magnetic resonance images of the brain were obtained. Contra st was not requested FINDINGS: Mild to moderate abnormal signal is present within periventricular, deep and subcortical w allen matter. Diffusion-weighted/ADC mapping does not reveal evidence of acute infarction. The ventricles are normal caliber. An extra-axial fluid collection is not present Fluid within the sinuses/mastoids is not seen. A 23 millimeter right parotid mass has high signal on T2 weighted sequences. IMPRESSION: Mild to moderate signal within periventricular, deep and subcortical white matter likely representing ischemic changes secondary to small vessel disease No acute intracranial abnormality is seen. A 23 millimeter right parotid mass
--- NOTE | 2017-12-29 13:34 | RAD REPORT ---
EXAM DESCRIPTION: MRI - MRA Head Wo Cont - 12/29/2017 1:13 pm CLINICAL HISTORY: Syncope, recurring episodes of loss of consciousness COMPARISON: None. TECHNIQUE: Axial and coronal 3D [id number] image acquisition was performed. 3D rotational images were generated with source and reconstruction images reviewed. FINDINGS: Major venous sinuses are patent. Right transverse sinus is dominant as a normal variant. No aneurysm or vascular malformation. No significant atherosclerotic changes identifiable. The right anterior cerebral artery A1 segment is very small as a normal anatomic variant. Anterior communicatin g artery is present. Vertebrobasilar tortuosity noted without stenosis. Both posterior cerebral arter ies are supplied by a large posterior communicating arteries. This persistent origin anatomy is a normal anatomic variant. Left vertebral artery is dominant. Right vertebral artery probably termin ates at the posterior inferior cerebellar artery. Most of the each cervical internal carotid artery a lso imaged on this study without abnormality. IMPRESSION: MRA head examination shows no significant or suspicious finding.
[2017-12-29] MEDS: NA CHLORIDE 0.9% 1,000 ML IV SCH ×2 (13:43→18:25)
[2017-12-29] MEDS: PIPER/TAZO/NS 3.375gm 3.375 GM/100 ML BAG IVPB SCH ×2 (13:44→21:06)
[2017-12-29] MEDS ORDERED: ENOXAPARIN 40 MG/0.4 ML SQ SCH (17:00)
[2017-12-29] MEDS: ENOXAPARIN 30 MG/0.3 ML SQ SCH (17:42)
[2017-12-29 17:49] LABS: Urine Appearance CLOUDY; Urine Bilirubin NEGATIVE (NEG); Urine Blood NEGATIVE (NEG); Urine Color YELLOW; Urine Glucose NEGATIVE (NEG); Urine Protein 1+ (NEG); Urine Specific Gravity 1.025 (1.005-1.030); Urine pH 5.5 (5.0-7.0)
[2017-12-29 17:50] LABS: Urine Microscopic Reflex ORDER UMIC
[2017-12-29] MEDS ORDERED: PNEUMOCOCCAL VACCINE 0.5 ML IMVAC ONE (18:00)
[2017-12-29 18:17] LABS: Urine Bacteria <20 /HPF (<20); Urine Culture Reflex Order NOT NEEDED; Urine RBC <5 /HPF (NONE SEEN)
[2017-12-29] MEDS ORDERED: ZOLPIDEM TARTRATE 5 MG TABLET PO PRN (18:35)
[2017-12-29 20:23] LABS: CKMB Creatine Kinase MB < 1.0 ng/mL (0.3-3.6); Creatine Phosphokinase 49 U/L (26-192)
[2017-12-29] MEDS ORDERED: ATORVASTATIN 40 MG TAB PO SCH (21:00)
--- NOTE | 2017-12-30 01:02 | CON ---
Date of Consultation: 12/29/2017 Reason For Consultation: Syncope. History: A 57-year-old lady with hypertension and diabetes. She was in her usual state of health un til today when doing her time sheet at work, she felt pale and generally weak, had to sit down in the chair. Blood pressure was checked and it was noted to be 50s systolic. The patient then had an epi sode of syncope. There is no mention of any convulsive activity. She did not bite her tongue. She was not incontinent, wheeled into the break room. EMS was summoned. The patient had another syncopa l spell in front of EMS, brought to the emergency department. Blood glucose 140, documented systolic s in the 80s, given normal saline. Blood pressure is better. The patient had a brain MRI. She had some nausea and generalized weakness. No acute stroke. MRI brain, no intracranial atherosclerosis. Doppler is negative for significant stenosis. The patient feels better, currently in the ICU. Cons ultation was requested. Past Medical History: As alluded to. Medications: Potassium, Prinivil, clonidine, simvastatin, Coreg, Glucophage, and . The yonny nunez is on aspirin now as well. Allergies: BACTRIM, SULFA. Social History: Employed. Smokes. Drinks. Independent in basic activities of daily living. Family History: Noncontributory. Review of Systems: General: Good health. Eyes: Denies. Ears, nose, and Throat: Negative. Cardiovascular: Hypertension. Pulmonary: Negative. GI: Negative. : Negative. She does have some renal insufficiency. Musculoskeletal: Arthralgias. Knee pain left. Neurologic: As noted. Psychiatric: Negative. Endocrine: Diabetes, hypothyroidism. Hematologic: Negative. Physical Examination: Vital Signs: 97, 170, 16, and 96/62. General: Pleasant lady, lying in bed, and in no distress. Awake, alert, and oriented to time, perso n, place, situation. Neurologic: Pupils are reactive. Ocular motion is full. Giraldo are full. Facial strength and sens ation are normal. Tongue protrudes evenly. Soft palate elevates symmetrically bilaterally. Extremi ty strength is full. Sensation decreased distally. Reflexes are 1/4, symmetric. Toes are downgoing . Cerebellar exam demonstrates no ataxia. Pertinent Laboratory Data: Imaging as noted. Creatinine is 2. White count 7.5, hemoglobin 12.7, an d platelets 401. Magnesium 1.1, up to 1.5; sodium 133; AST 78. Impression: Syncope likely from orthostasis. Plan: The patient did have several events. We will check an EEG, but I think that is going to be a relatively low yield study. Would continue aspirin on discharge. The patient has multiple vascular risk factors. Thank you for the consult. We will continue to follow with you. FLO Voice ID: [id number] Report ID: [id number]
--- NOTE | 2017-12-30 01:27 | CON ---
Date of Consultation: 12/29/2017 Reason For Consultation: Elevated creatinine, fluid management. History Of Present Illness: This is a pleasant 57-year-old female with significant past medical hist ory of hypertension, being uncontrolled, especially lately; diabetes complicated with neuropathy sinc e 2004, no retinopathy, no nephropathy; the patient came to the hospital because of presyncope. Appa rently, the patient had nausea, vomiting, and diarrhea for the last few days. Started having some ta chycardia and loss of consciousness. Found to have at work low blood pressure when EMS came, and whe n she arrived to the hospital, blood pressure was low. Lab showed elevation in BUN and creatinine. For that reason, we have been consulted. The patient admits that she has been taking Advil 1-2 table ts a week. The patient's blood sugar has been uncontrolled, was started on metformin. The patient i s on ARB. According to her, her doctor has been decreasing her blood pressure medication as the bloo d pressure was not controlled. The patient denied any recent exposure to antibiotics, no IV contrast. After started the patient on IV hydration, the blood pressure started being maintained. Reviewing the record for the patient, the patient's kidney function was normal before back in September 02 018. Creatinine 1.4 and GFR of 36, early in December. Past Medical History: 1.Diabetes. 2.Hypertension. 3.Hyperlipidemia. 4.Hypothyroidism. Past Surgical History: 1.. 2.Wrist surgery. 3.Rectal polyp removal. Home Medications: 1.Lisinopril. 2.Carvedilol. 3.Levothyroxine. 4.Metformin. 5.Cholecalciferol. 6.KCl. 7.Simvastatin. 8.Macrobid. Allergies: TO BACTRIM. Social History: Active smoker. Denies alcohol. Denies drug abuse. Family History: Positive for heart disease. Review of Systems: Head and Neck: No red eye. No ear pain. GI: Has nausea, vomiting. Has diarrhea. : No polyuria. No dysuria. No hematuria. 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 Respiratory: No shortness of breath. Cardiovascular: Has syncope. Has palpitation. Neuro: Has syncope. Musculoskeletal: Generalized body ache. Endocrine: No polydipsia. Skin: No rash. Physical Examination: Vital Signs: When I saw the patient, blood pressure of 78/50, pulse of 70, afebrile. Chest: Clear to auscultation. Heart: S1, S2. Regular. Abdomen: Soft, nontender. Extremities: No edema. Laboratory Data: Magnesium 1.5, sodium 133, potassium 3.8, bicarb 22, BUN 33, creatinine 2, GFR of 2 6. Earlier magnesium 1.5, calcium 8.8. BNP 183. PTH of 0.24. Repeated magnesium 1.5. Urinalysis; specific gravity 1.025, +1 protein. WBC 7.5, H and H of 12.7/38.5, platelets 403. Current Medications: Current medications the patient on include; 1.Aspirin. 2.Nicotine. 3.Zosyn. 4.Atorvastatin. 5.Ambien. 6.Tylenol. 7.Pantoprazole. 8.IV fluid. Assessment And Plan: 1.Acute kidney injury, secondary to prerenal poor perfusion, acute tubular necrosis, secondary to lo w blood pressure. Superimposed with NORMA inhibitor and metformin use. Doubt to be related to any hem olysis phenomena as the platelet within normal limit. I am going to agree with hydration, discontinu e lisinopril and metformin. We will continue to monitor the patient. We will go ahead and send for full workup renal ultrasound, protein, creatinine, and we will follow up. 2.Hypertension, currently blood pressure on the lower side. Hold all the blood pressure medication, especially NORMA inhibitor. 3.Diabetes, uncontrolled. Hold metformin given the acute kidney injury. 4.Diarrhea, as by Primary. Agree with Bertram for the time being accurate does. 5.Hypomagnesemia. I am going to go ahead and supplement. Thank you, Dr. Gilman, for allowing us to participate in the care of your patient. JOSR/RAJINDER Voice ID: [id number] Report ID: [id number]
[2017-12-30] MEDS: NA CHLORIDE 0.9% 1,000 ML IV SCH ×3 (03:57→21:27)
[2017-12-30 05:52] LABS: Urine Protein/Creatinine Ratio 0.43 ratio (<0.15)
[2017-12-30 06:03] LABS: Absolute Lymphocytes (CBC) 0.5 K/uL (0.7-4.9); Absolute Monocytes 0.2 K/uL (0.1-1.3); Absolute Neutrophil 3.9 K/uL (1.8-8.0); Basophils % 0.5 % (0-1.3); Eosinophils % 2.2 % (0-4.4); Hematocrit 33.7 % (36.0-45.0); Lymphocytes % 10.7 % (15.3-44.8); MCH 35.7 pg (27.0-35.0); MCV 107.3 fL (80-100); MPV 8.2 fL (7.6-11.3); Monocytes % 4.9 % (3.3-12.3); RBC Red Blood Cell Count 3.14 M/uL (3.86-4.86)
[2017-12-30 06:05] LABS: CKMB Creatine Kinase MB < 1.0 ng/mL (0.3-3.6); Creatine Phosphokinase 46 U/L (26-192)
[2017-12-30 06:08] LABS: Albumin 3.2 g/dL (3.4-5.0); Bilirubin Total 0.5 mg/dL (0.2-1.0); Magnesium 1.5 mg/dL (1.8-2.4); Phosphorus 3.2 mg/dL (2.5-4.9); Potassium 3.6 mmol/L (3.5-5.1); Protein, Total 6.8 g/dL (6.4-8.2); Thyroid Stimulating Hormone 1.24 uIU/mL (0.36-3.74)
[2017-12-30] MEDS: INSULIN -REGULAR HUMAN 50 UNIT/0.5 ML ML SQ SCH ×4 (07:30→21:00)
--- NOTE | 2017-12-30 07:40 | ECHO ---
HEIGHT: 5 ft 4 in WEIGHT: 175 lb 2 oz DATE OF STUDY: 12/29/[address]: Jim Gilman DO 2-DIMENSIONAL: YES M.MODE: YES DOPPLER: YES COLOR FLOW: YES TDS: YES PORTABLE: YES DEFINITY: NO BUBBLE STUDY: NO DIAGNOSIS: SYNCOPE, HISTORY OF HYPERTENSION CARDIAC HISTORY: CATHERIZATION: NO SURGERY: NO PROSTHETIC VALVE: NO PACEMAKER: NO MEASUREMENTS (cm) DIASTOLIC (NORMALS) SYSTOLIC (NORMALS) IVSd 1.1 (0.6-1.2) LA Diam 3.1 (1.9-4.0) LVEF 57% LVIDd 4.1 (3.5-5.7) LVIDs 2.9 (2.0-3.5) %FS 30% LVPWd 1.4 (0.6-1.2) Ao Diam 2.8 (2.0-3.7) 2 DIMENSIONAL ASSESSMENT: RIGHT ATRIUM: NORMAL LEFT ATRIUM: NORMAL RIGHT VENTRICLE: NORMAL LEFT VENTRICLE: NORMAL TRICUSPID VALVE: NORMAL MITRAL VALVE: NORMAL PULMONIC VALVE: NORMAL AORTIC VALVE: NORMAL PERICARDIAL EFFUSION: NONE AORTIC ROOT: NORMAL LEFT VENTRICULAR WALL MOTION: NORMAL. DOPPLER/COLOR FLOW: IMPAIRED LEFT VENTRICULAR RELAXATION. COMMENTS: NORMAL 2D ECHO. IMPAIRED LEFT VENTRICULAR RELAXATION OTHERWISE NORMAL CARDIAC DOPPLER. TECHNICALLY DIFFICULT STUDY. TECHNOLOGIST: JOYCE RICKS
--- NOTE | 2017-12-30 08:24 | P.PN ---
Subjective Date of Service: 12/30/17 Primary Care Provider: Dr. Oliva Chief Complaint: Syncope Subjective: Doing well (Patient doing well.) Physical Examination - Vital Signs Temperature: 98.4 F Blood Pressure: 132/84 Pulse: 68 Respirations: 13 Pulse Ox (%): 100 - Physical Exam General: Alert, In no apparent distress, Oriented x3, Cooperative HEENT: Atraumatic, Other (Mild fullness to the right parotid region compared to the left) Neck: Supple Respiratory: Clear to auscultation bilaterally, Normal air movement Cardiovascular: Normal pulses, Regular rate/rhythm Gastrointestinal: Normal bowel sounds, Soft and benign, Non-distended, No tenderness, No masses, No rebound, No guarding Musculoskeletal: No erythema, No tenderness, No warmth Integumentary: No tenderness/swelling, No erythema, No warmth, No cyanosis Neurological: Normal speech, Normal strength at 5/5 x4 extr, Normal tone, Normal affect - Studies Laboratory Data (last 24 hrs) 12/29/17 09:10: PT 12.6 H, INR 1.07, APTT 22.2 L 12/29/17 09:10: WBC 7.5, Hgb 12.7, Hct 38.5, Plt Count 401 12/29/17 09:10: Sodium 133 L, Potassium 3.8, BUN 33 H, Creatinine 2.00 H, Glucose 177 H, Magnesium 1.1 L*, Total Bilirubin 0.7, AST 78 H, ALT 64, Alkaline Phosphatase 63 Medications List Reviewed: Yes Assessment & Plan - Problems (Diagnosis) (1) Nausea & vomiting Onset Date: 12/30/17 Current Visit: Yes Status: Acute Plan: This has resolved. CT scan abdomen showed esophagitis. Will continue with PPI. Patient will need to follow up with GI as an outpatient to further assess. Patient will likely need EGD as an outpatient. Qualifiers: Vomiting type: unspecified Vomiting Intractability: unspecified Qualified Code(s): R11.2 - Nausea with vomiting, unspecified (2) Diarrhea Onset Date: 12/30/17 Current Visit: Yes Status: Acute Plan: Likely viral. This has improved. Will check C diff culture. Will consider discontinuing IV antibiotic therapy. Qualifiers: Diarrhea type: unspecified type Qualified Code(s): R19.7 - Diarrhea, unspecified (3) GERD (gastroesophageal reflux disease) Onset Date: 12/30/17 Current Visit: Yes Status: Suspected Plan: CT scan showed esophagitis. Will continue PPI. Patient will need EGD and GI evaluation as outpatient Qualifiers: Esophagitis presence: with esophagitis Qualified Code(s): K21.0 - Gastro- esophageal reflux disease with esophagitis (4) Diabetes mellitus Onset Date: 12/30/17 Current Visit: Yes Status: Chronic Plan: Will check A1c. We will continue sliding scale. Will hold metformin due to her acute renal insufficiency. Qualifiers: Diabetes mellitus type: type 2 Diabetes mellitus fpc insulin use: without fpc use Diabetes mellitus complication status: with other specified complication Qualified Code(s): E11.69 - Type 2 diabetes mellitus with other specified complication (5) Renal insufficiency Onset Date: 12/30/17 Current Visit: Yes Status: Acute Plan: Likely from dehydration, diarrhea, and medication. Will hold lisinopril, metformin. Patient improved. Will continue with IV fluids. Will check renal ultrasound. Will discuss with nephrology. Will transfer patient to the floor. Anticipate possible discharge as early as tomorrow. Will continue to adjust medications. (6) Tobacco abuse Onset Date: 12/30/17 Current Visit: Yes Status: Chronic Plan: Will provide nicotine patch. (7) Elevated liver function tests Onset Date: 12/30/17 Current Visit: Yes Status: Chronic Plan: Will send for hepatitis panel (8) Hypomagnesemia Onset Date: 11/24/15 Current Visit: No Status: Acute Plan: Will monitor and replace. Replacement protocol in place. (9) Syncope Onset Date: 02/28/15 Current Visit: No Status: Acute Plan: Likely multifactorial. Patient dehydrated from nausea, vomiting and diarrhea. Will continue IV antibiotic therapy. Will the await for C diff colitis. Continue IV fluids. Continue to hold blood pressure medication and metformin. Renal function slightly improved. Await renal ultrasound. MRI of brain shows no acute stroke. Neurology plans for EEG. Will discuss with cardiology. Echocardiogram unremarkable. Will ambulate patient today. Will transfer to the telemetry floor. Will check orthostatics. Qualifiers: Encounter type: initial encounter (10) Hyperlipidemia Onset Date: 11/24/15 Current Visit: No Status: Chronic Plan: Continue with Lipitor. Qualifiers: Hyperlipidemia type: mixed hyperlipidemia Qualified Code(s): E78.2 - Mixed hyperlipidemia (11) Hypertension Onset Date: 11/24/15 Current Visit: No Status: Chronic Plan: Blood pressure stable at this time. Patient off blood pressure medication. Will continue to monitor. Will need to make adjustments to her medication at discharge. Qualifiers: Hypertension type: essential hypertension Qualified Code(s): I10 - Essential (primary) hypertension (12) Esophagitis Current Visit: Yes Status: Suspected Plan: CT scan abdomen showed esophagitis. Will continue with PPI. Patient will need GI evaluation as an outpatient with EGD. (13) Parotid mass Current Visit: Yes Status: Acute Plan: New finding of parotid mass to the right side. Case discussed with the ENT. Patient will need fine-needle aspiration biopsy of mass to rule out cancer. This can be done as an outpatient. Patient will need to follow up with ENT as an outpatient to further address. Discharge Plan: Home Plan to discharge in: 24 Hours Time Spent Managing Pts Care (In Minutes): 55
[2017-12-30] MEDS: NICOTINE 21 MG/PAT TD SCH (08:53)
[2017-12-30] MEDS: LEVOTHYROXINE SOD 0.025 MG TAB PO SCH (08:53)
[2017-12-30] MEDS: PANTOPRAZOLE 40 MG INJ IVP SCH (08:53)
[2017-12-30] MEDS: ASPIRIN EC 81 MG TAB PO SCH (08:54)
[2017-12-30] MEDS: PIPER/TAZO/NS 3.375gm 3.375 GM/100 ML BAG IVPB SCH ×2 (08:56→21:29)
--- NOTE | 2017-12-30 11:28 | RAD REPORT ---
EXAM DESCRIPTION: US - Renal Ultrasound-Complete - 12/30/2017 11:23 am CLINICAL HISTORY: . Acute renal insufficiency COMPARISON: None. FINDINGS: The right kidney measures 11 cm with a normal echotexture. The left kidney measures 11 cm with a normal echotexture. Hydronephrosis is not seen. No abnormality of the bladder is noted IMPRESSION: Unremarkable renal ultrasound.
--- NOTE | 2017-12-30 11:45 | CON ---
Chief Complaint: Loss of consciousness. History Of Present Illness: Mrs. Botello takes medicines for blood pressure and diabetes. She took her medicines, went to work, was having a normal day, then she got some depressing news, her hours were b eing cut back and then she started to get lightheaded and dizzy then she sat down and while sitting s he completely lost consciousness apparently for 2 minutes. No tongue biting. No bladder or bowel in continence. Her outpatient medications are lisinopril, carvedilol, levothyroxine, metformin, choleca lciferol, simvastatin, clonidine, and potassium gluconate. The patient and drinking, taki ng her medicines on a normal routine. She has had no other episodes of syncope. No history of myoca rdial infarction, stroke, or known vascular disease. Since she has been in the hospital, MRA and MRI are negative for cerebrovascular disease. Carotid Doppler is normal. Echocardiogram is normal. Ca rdiac enzymes are normal. She has a normal hematocrit and hemoglobin level, but her red blood cells are rather large with an MCV of 107. Her thyroid function appears to be normal. Parathyroid hormone was normal. Calcium level was 8.1, but she has a fairly low albumin level. Her urine test shows a trace of esterase and protein. Physical Examination: Vital Signs: 5 feet 4 inches, 175 pounds. General: Alert, oriented, pleasant, not in distress. Lungs: Clear. Heart Exam: Within normal limits. Carotids: No bruit. Extremities: Palpable pulses. Her troponins are normal. EKG unremarkable. Impression: This is not cardiac related syncope, although I would be concerned that she may have hyp otension sometimes with her present medicine regimen and perhaps clonidine should be discontinued and reevaluate her blood pressure regimen. Dr. Ortiz is conducting other tests including an EEG. From a cardiac standpoint, I think Mrs. Botello can be discharged for outpatient care. She is a 10-cigarette per day cigarette smoker and is on a reduction plan, plans to quit, I encouraged that. Thank you very much for your kind referral of Mrs. Botello. We will follow her with you. BROOKLYN/RAJINDER Voice ID: [id number] Report ID: [id number]
--- NOTE | 2017-12-30 12:06 | CON ---
Date of Consultation: 12/29/[address] Gilman on 12/29/2017 and seen on the same day. Reason For Consultation: Syncope. History Of Present Illness: She has a history of hypertension, dyslipidemia, diabetes, hypothyroidis m, and pancreatitis, and syncope, noted to be orthostatic. Workup continues to be pending. She was seen in the emergency room. She but she really had a negative CT of her head, negative ca rotid. Her MRI is also negative. She had a normal heart catheterization by Dr. Botello in May 05 with normal coronaries. Allergies: SHE IS ALLERGIC TO SULFA. Medications: Include potassium, Zocor, lisinopril, Coreg, , and metformin. Review of Systems: Negative. Family History: Negative. Physical Examination: Vital Signs: Stable. Afebrile. HEENT: Negative. Neck: Supple with no bruit. Chest: Clear. Cardiac: Normal. Abdomen: Benign. Extremities: Revealed no clubbing, cyanosis, or edema. Diagnostic Data: All within normal limit, except for magnesium 1.1, creatinine 2.0, glucose 177. EK G is unremarkable. Chest x-ray is unremarkable. Impression And Plan: Syncope, most likely secondary to systemic hypertension and dehydration. She n eeds magnesium supplemented. She needs to be hydrated because of her creatinine and glucose was slig htly elevated. Her blood pressure is well controlled thyroid. She has had a negative CT echocardiogram was also normal. She can go home whenever it is okay with Dr. Gilman. We will suggest that she is off temporarily. If her syncope becomes more recurrent issue, we will discuss further therapy later such as . I doubt this is cardiovascular. KIM/RAJINDER Voice ID: [id number] Report ID: [id number]
[2017-12-30] MEDS ORDERED: POTASSIUM CL SA 10 MEQ TAB PO ONE (12:55)
[2017-12-30] MEDS ORDERED: Magnesium Sulfate 2gm IVPB 2 G/50 ML BAG IV ONE (12:55)
[2017-12-30] MEDS: ENOXAPARIN 30 MG/0.3 ML SQ SCH (16:41)
[2017-12-30] MEDS: ATORVASTATIN 10 MG TAB PO SCH (21:27)
[2017-12-30] MEDS: TRAZODONE 50 MG TABLET PO PRN (21:53)
--- NOTE | 2017-12-31 01:31 | PN ---
Date of Progress Note: 12/30/2017 Chief Complaint: Elevated BUN creatinine, acute on chronic kidney injury, diabetes mellitus with renal manifestation. History Of Present Illness: This patient developed acute kidney injury secondary to severe prerenal azotemia with poor renal perfusion, complicated by acute tubular necrosis. She has nonoliguric urine output. The patient had effect of NORMA inhibitor causing acute kidney injury. Prior to this admission, the patient was taking metformin for diabetes, and she was taken off metformin due to the fact that she developed acute kidney injury. The patient was started on IV fluids. She remains nonoliguric. Blood pressure remained stable. The patient developed syncope prior to this admission. She was found to have hypotension, was brought by EMS to the hospital and received IV fluids for volume resuscitation. The patient apparently was taking Advil, which was additional culprit for acute kidney injury. Review of Systems: The patient is feeling better. Denies PND or orthopnea. Physical Examination: Lungs: Clear to auscultation bilaterally. Heart: S1, S2. Abdomen: Soft, benign. Extremities: Minimal edema. Laboratory Data: Sodium 135, potassium 3.6, chloride 102, CO2 25, BUN 31, creatinine 1.80, glucose 170, calcium 8.1, magnesium 1.5, and phosphorus 3.2, CK level of 46. Yesterday, BUN 33, creatinine 2.0, magnesium 1.1. Impression And Plan: 1. Acute on chronic kidney injury, remains nonoliguric. Renal function has not improved significantly since yesterday. Continue IV fluids for hydration. 2. Hyponatremia on arrival to the hospital. The patient was found to have hyponatremia, sodium of 133, which was due to renal hypoperfusion and hypovolemia. Continue normal saline for volume resuscitation and treatment of acute kidney injury, as well as to control hyponatremia. 3. Hypomagnesemia. Magnesium was 1.1 on arrival to the hospital, is improving to 1.5. Continue magnesium replacement. The patient will have magnesium sulfate IV 2 g today. 4. Hypokalemia. Replacement with potassium by mouth was ordered. 5. Hypertension. Monitor blood pressure closely. The patient is off NORMA inhibitor due to acute kidney injury. Monitor renal function and fluid balance. Continue replacement of electrolytes as needed. I spent total 36 min including 25 min to coordinate care plan. VINICIUS/RAJINDER Voice ID: [id number] Report ID: [id number] [email or web address]
[2017-12-31] MEDS: NA CHLORIDE 0.9% 1,000 ML IV SCH ×3 (03:00→21:48)
[2017-12-31] MEDS: LEVOTHYROXINE SOD 0.025 MG TAB PO SCH (06:03)
[2017-12-31 06:07] LABS: Absolute Lymphocytes (CBC) 1.3 K/uL (0.7-4.9); Absolute Monocytes 0.4 K/uL (0.1-1.3); Absolute Neutrophil 3.2 K/uL (1.8-8.0); Basophils % 0.4 % (0-1.3); Hematocrit 40.5 % (36.0-45.0); Lymphocytes % 25.5 % (15.3-44.8); MCH 33.9 pg (27.0-35.0); MCV 108.8 fL (80-100); MPV 8.8 fL (7.6-11.3); Monocytes % 7.9 % (3.3-12.3); RBC Red Blood Cell Count 3.72 M/uL (3.86-4.86)
[2017-12-31 06:18] LABS: Albumin 3.2 g/dL (3.4-5.0); Bilirubin Total 0.3 mg/dL (0.2-1.0); Magnesium 1.8 mg/dL (1.8-2.4); Phosphorus 2.9 mg/dL (2.5-4.9); Potassium 4.1 mmol/L (3.5-5.1); Protein, Total 6.8 g/dL (6.4-8.2)
[2017-12-31] MEDS ORDERED: MAGNESIUM SULFATE 1 gm IVPB 1 GM/100 ML BAG IV ONE (06:36)
[2017-12-31 06:37] LABS: Urine White Blood Cell Casts OK
[2017-12-31 06:38] LABS: Blood Morphology Comment NOTED (NOT SEEN); Macrocytosis 1+; Platelet Estimate INCR
[2017-12-31] MEDS: INSULIN -REGULAR HUMAN 50 UNIT/0.5 ML ML SQ SCH ×4 (07:30→21:00)
[2017-12-31] MEDS: NICOTINE 21 MG/PAT TD SCH (09:07)
[2017-12-31] MEDS: PIPER/TAZO/NS 3.375gm 3.375 GM/100 ML BAG IVPB SCH (09:08)
[2017-12-31] MEDS: ASPIRIN EC 81 MG TAB PO SCH (09:08)
[2017-12-31] MEDS: PANTOPRAZOLE 40 MG INJ IVP SCH (09:08)
--- NOTE | 2017-12-31 10:36 | P.PN ---
Subjective Date of Service: 12/31/17 Primary Care Provider: Dr. Oliva Chief Complaint: Syncope Subjective: Improving Physical Examination - Vital Signs Temperature: 98.1 F Blood Pressure: 168/112 Pulse: 73 Respirations: 18 Pulse Ox (%): 99 - Physical Exam General: Alert, In no apparent distress, Oriented x3, Cooperative HEENT: Atraumatic Neck: Supple Respiratory: Clear to auscultation bilaterally, Normal air movement Cardiovascular: Normal pulses, Regular rate/rhythm Gastrointestinal: Normal bowel sounds, Soft and benign, Non-distended, No tenderness, No masses, No rebound, No guarding Musculoskeletal: No erythema, No tenderness, No warmth Integumentary: No tenderness/swelling, No erythema, No warmth, No cyanosis Neurological: Normal speech, Normal strength at 5/5 x4 extr, Normal tone, Normal affect - Studies Medications List Reviewed: Yes Assessment & Plan - Problems (Diagnosis) (1) Nausea & vomiting Onset Date: 12/30/17 Current Visit: Yes Status: Acute Plan: This has resolved. CT scan abdomen showed esophagitis. Will continue with PPI. Patient will need to follow up with GI as an outpatient to further assess. Patient will likely need EGD as an outpatient. Qualifiers: Vomiting type: unspecified Vomiting Intractability: unspecified Qualified Code(s): R11.2 - Nausea with vomiting, unspecified (2) Diarrhea Onset Date: 12/30/17 Current Visit: Yes Status: Acute Plan: Likely viral. This has improved. C diff negative. Will discontinue IV antibiotic therapy. Qualifiers: Diarrhea type: unspecified type Qualified Code(s): R19.7 - Diarrhea, unspecified (3) GERD (gastroesophageal reflux disease) Onset Date: 12/30/17 Current Visit: Yes Status: Suspected Plan: CT scan showed esophagitis. Will continue PPI. Patient will need EGD and GI evaluation as outpatient Qualifiers: Esophagitis presence: with esophagitis Qualified Code(s): K21.0 - Gastro- esophageal reflux disease with esophagitis (4) Diabetes mellitus Onset Date: 12/30/17 Current Visit: Yes Status: Chronic Plan: A1c 5.5. We will continue sliding scale. Will hold metformin due to her acute renal insufficiency. Patient may require glimepiride at discharge instead of metformin. 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 Continue to hold lisinopril , metformin. Overall improved. Will consider discharge today if lab improved. Will discuss with nephrology. (6) Tobacco abuse Onset Date: 12/30/17 Current Visit: Yes Status: Chronic Plan: Will provide nicotine patch. (7) Elevated liver function tests Onset Date: 12/30/17 Current Visit: Yes Status: Chronic Plan: Will send for hepatitis panel (8) Hypomagnesemia Onset Date: 11/24/15 Current Visit: No Status: Acute Plan: Will monitor and replace. Replacement protocol in place. (9) Syncope Onset Date: 02/28/15 Current Visit: No Status: Acute Plan: Likely multifactorial. Patient improved. No stroke noted. Consider discharge today or tomorrow pending lab improvement. Will also need better hypertensive control Qualifiers: Encounter type: initial encounter (10) Hyperlipidemia Onset Date: 11/24/15 Current Visit: No Status: Chronic Plan: Continue with Lipitor. Qualifiers: Hyperlipidemia type: mixed hyperlipidemia Qualified Code(s): E78.2 - Mixed hyperlipidemia (11) Hypertension Onset Date: 11/24/15 Current Visit: No Status: Chronic Plan: Blood pressure increased. Will restart carvedilol. Will add Norvasc. If blood pressure is stable by this afternoon then consider discharge Qualifiers: Hypertension type: essential hypertension Qualified Code(s): I10 - Essential (primary) hypertension (12) Esophagitis Current Visit: Yes Status: Suspected Plan: CT scan abdomen showed esophagitis. Will continue with PPI. Patient will need GI evaluation as an outpatient with EGD. (13) Parotid mass Current Visit: Yes Status: Acute Plan: New finding of parotid mass to the right side. Case discussed with the ENT. Patient will need fine-needle aspiration biopsy of mass to rule out cancer. This can be done as an outpatient. Patient will need to follow up with ENT as an outpatient to further address. Discharge Plan: Home Plan to discharge in: 24 Hours Time Spent Managing Pts Care (In Minutes): 55
[2017-12-31] MEDS: AMLODIPINE 5 MG TAB PO SCH ×2 (10:56→21:48)
[2017-12-31] MEDS: CARVEDILOL 12.5 MG TAB PO SCH ×2 (10:56→17:14)
[2017-12-31 11:37] LABS: Potassium 4.2 mmol/L (3.5-5.1)
[2017-12-31] MEDS ORDERED: ENOXAPARIN 40 MG/0.4 ML SQ SCH (17:00)
[2017-12-31] MEDS ORDERED: CARVEDILOL 3.125 MG TAB PO SCH (18:00)
[2017-12-31] MEDS: ATORVASTATIN 10 MG TAB PO SCH (21:49)
[2017-12-31] MEDS: TRAZODONE 50 MG TABLET PO PRN (21:49)
--- NOTE | 2018-01-01 04:43 | PN ---
Date of Progress Note: 12/31/2017 Chief Complaint: Acute kidney injury, nonoliguric, with prerenal azotemia and effect of NORMA inhibitor causing severe renal hypoperfusion. The patient was admitted to the hospital after she developed syncope. She was found to have hypotension, was brought by EMS to the hospital. Received IV fluids for volume resuscitation. Prior to this admission, she was taking Advil which was additional culprit for acute kidney injury. Review of Systems: Denies fever/chills. Physical Examination: Lungs: Few crackles at bases. Heart: S1, S2. Abdomen: Soft, benign. Extremities: Minimal edema. Impression And Plan: 1. Acute kidney injury, remains nonoliguric. Renal function is gradually improving. The patient was found to have hypomagnesemia. Magnesium level was 1.1, subsequently increased to 1.5 with replacement. Continue to monitor magnesium level and adjust treatment accordingly. 2. Hyponatremia. The patient was found to have mild hyponatremia on arrival to the hospital. The patient will continue normal saline for volume resuscitation. Continue p.o. intake and monitor electrolytes. 3. Hypokalemia, mild, replaced and stable. 4. Hypertension. The patient was taken off NORMA inhibitor due to acute kidney injury. NORMA inhibitor will be resumed when renal function is at baseline. 5. Acute kidney injury, nonoliguric, secondary to multiple causes leading to renal hypoperfusion. The patient will avoid nonsteroidal anti- inflammatory medication. VINICIUS/RAJINDER Voice ID: [id number] Report ID: [id number] [facility]
[2018-01-01] MEDS: NA CHLORIDE 0.9% 1,000 ML IV SCH ×2 (06:00→11:00)
[2018-01-01] MEDS: LEVOTHYROXINE SOD 0.025 MG TAB PO SCH (06:00)
[2018-01-01] MEDS: CARVEDILOL 12.5 MG TAB PO SCH (06:01)
[2018-01-01 06:24] LABS: Absolute Lymphocytes (CBC) 1.7 K/uL (0.7-4.9); Absolute Monocytes 0.5 K/uL (0.1-1.3); Absolute Neutrophil 3.5 K/uL (1.8-8.0); Basophils % 0.4 % (0-1.3); Eosinophils % 2.1 % (0-4.4); Hematocrit 37.3 % (36.0-45.0); Lymphocytes % 28.8 % (15.3-44.8); MCH 35.5 pg (27.0-35.0); MPV 8.5 fL (7.6-11.3); Monocytes % 8.6 % (3.3-12.3); RBC Red Blood Cell Count 3.48 M/uL (3.86-4.86)
[2018-01-01 06:48] LABS: Albumin 3.5 g/dL (3.4-5.0); Bilirubin Total 0.2 mg/dL (0.2-1.0); Potassium 3.9 mmol/L (3.5-5.1); Protein, Total 7.7 g/dL (6.4-8.2)
[2018-01-01 06:51] LABS: Magnesium 1.2 mg/dL (1.8-2.4)
[2018-01-01] MEDS: INSULIN -REGULAR HUMAN 50 UNIT/0.5 ML ML SQ SCH ×2 (07:30→11:30)
[2018-01-01] MEDS: NICOTINE 21 MG/PAT TD SCH (09:00)
[2018-01-01] MEDS ORDERED: POTASSIUM CL SA 10 MEQ TAB PO ONE (09:00)
[2018-01-01] MEDS ORDERED: Magnesium Sulfate 2gm IVPB 2 G/50 ML BAG IV ONE (09:00)
[2018-01-01 09:05] VITALS: O2SAT 97
[2018-01-01] MEDS: PANTOPRAZOLE 40 MG INJ IVP SCH (09:39)
[2018-01-01] MEDS: AMLODIPINE 5 MG TAB PO SCH (09:40)
[2018-01-01] MEDS: ASPIRIN EC 81 MG TAB PO SCH (09:41)
--- NOTE | 2018-01-01 10:00 | P.DS ---
Admission Date: 12/29/17 Discharge Date: 01/01/18 Primary Care Provider: Dr. Oliva Disposition: ROUTINE DISCHARGE Discharge Condition: GOOD Reason for Admission: Syncope Consultations: Nephrology-Dr. Vasquez Cardiology-Dr. Botello Neurology-Dr. Ortiz Procedures: MRI/MRA brain: COMPARISON: August [address] TECHNIQUE: Axial, sagittal, and coronal magnetic resonance images of the brain were obtained. Contrast was not requested FINDINGS: Mild to moderate abnormal signal is present within periventricular, deep and subcortical white matter. Diffusion-weighted/ADC mapping does not reveal evidence of acute infarction. The ventricles are normal caliber. An extra-axial fluid collection is not present Fluid within the sinuses/mastoids is not seen. A 23 millimeter right parotid mass has high signal on T2 weighted sequences. IMPRESSION: Mild to moderate signal within periventricular, deep and subcortical white matter likely representing ischemic changes secondary to small vessel disease No acute intracranial abnormality is seen. A 23 millimeter right parotid mass Echocardiogram: Ejection fraction 57%. Otherwise unremarkable Carotid Doppler: Mild to moderate plaque without any significant stenosis CT abdomen: Thickening to the esophagus likely esophagitis. - Problems (1) Nausea & vomiting Onset Date: 12/30/17 Current Visit: Yes Status: Acute Qualifiers: Vomiting type: unspecified Vomiting Intractability: unspecified Qualified Code(s): R11.2 - Nausea with vomiting, unspecified (2) Diarrhea Onset Date: 12/30/17 Current Visit: Yes Status: Acute Qualifiers: Diarrhea type: unspecified type Qualified Code(s): R19.7 - Diarrhea, unspecified (3) GERD (gastroesophageal reflux disease) Onset Date: 12/30/17 Current Visit: Yes Status: Suspected Qualifiers: Esophagitis presence: with esophagitis Qualified Code(s): K21.0 - Gastro- esophageal reflux disease with esophagitis (4) Diabetes mellitus Onset Date: 12/30/17 Current Visit: Yes Status: Chronic Qualifiers: Diabetes mellitus type: type 2 Diabetes mellitus longterm insulin use: without oil heaterman use Diabetes mellitus complication status: with other specified complication Qualified Code(s): E11.69 - Type 2 diabetes mellitus with other specified complication (5) Renal insufficiency Onset Date: 12/30/17 Current Visit: Yes Status: Acute (6) Tobacco abuse Onset Date: 12/30/17 Current Visit: Yes Status: Chronic (7) Elevated liver function tests Onset Date: 12/30/17 Current Visit: Yes Status: Chronic (8) Hypomagnesemia Onset Date: 11/24/15 Current Visit: No Status: Acute (9) Syncope Onset Date: 02/28/15 Current Visit: No Status: Acute Qualifiers: Encounter type: initial encounter (10) Hyperlipidemia Onset Date: 11/24/15 Current Visit: No Status: Chronic Qualifiers: Hyperlipidemia type: mixed hyperlipidemia Qualified Code(s): E78.2 - Mixed hyperlipidemia (11) Hypertension Onset Date: 11/24/15 Current Visit: No Status: Chronic Qualifiers: Hypertension type: essential hypertension Qualified Code(s): I10 - Essential (primary) hypertension (12) Esophagitis Current Visit: Yes Status: Suspected (13) Parotid mass Current Visit: Yes Status: Acute (14) B12 deficiency Current Visit: Yes Status: Acute Brief History of Present Illness: 57-year-old female present emergency room with a syncopal episode. Patient reported some nausea, vomiting, diarrhea since Tuesday. Today she went to work. Her coworkers noted that she was pale. She did report some dizziness. Upon walking to the break room the patient had a syncopal episode. She denied any chest pain, palpitations. She did report a mild headache. The patient has diabetes, hypertension, hyperlipidemia. Patient on multiple blood pressure medications. She took medication this morning. Patient also takes metformin. In the ER patient was found to be hypotensive. Patient given IV fluids-2 liters. On lab white count 7.5, hemoglobin 12.7. Sodium 133, potassium 3.8. BUN of 33, creatinine 2.0 with a GFR 26. This has been a change from previous lab. AST 70, ALT 64. Troponin less than 0.02. BNP unremarkable. INR unremarkable. CT of the head showed no acute changes. Atrophy with chronic ischemic changes noted, advanced for her age. CT scan showed possible esophagitis. Due to the nature the findings the patient was admitted to ICU. When I saw the patient ER, she appeared stable. Blood pressure improved with hydration. Patient admits taking multiple medications for blood pressure. She did take her medications today. Patient also takes metformin. Patient was evaluated May 2017 for chest pain. At that time heart catheterization showed normal coronaries with normal ejection fraction. Patient does smoke. She also drinks on occasion. Patient reports some abdominal pain to the left lower quadrant. This is mild. She also reports some mild epigastric pain. Hospital Course: Patient presented with syncopal episode likely from dehydration related to nausea, vomiting, diarrhea and medications-lisinopril/metformin. Patient had acute renal failure from dehydration. Patient responded to IV fluid resuscitation. Medications were held and adjusted. Patient was evaluated by cardiology, neurology and nephrology. C diff culture negative. CT scan showed esophagitis. MRI/MRA brain showed no acute stroke. Patient likely has small- vessel disease to the brain. 23 mm right parotid mass noted incidentally. Echocardiogram normal with ejection fraction of 57%. Carotid Doppler showed moderate plaque without any significant stenosis. During the course of her stay condition improved. At discharge she is without any nausea, vomiting or diarrhea. C diff culture negative. Patient tolerating diet. Renal function back to baseline. Patient will be discharged home. Recommendation to recheck lab-BMP in 1 week to monitor progress. Patient has diabetes. Hemoglobin A1c 5.5. Patient reports GI upset with metformin since starting this medication. Will discontinue metformin due to recent renal failure. Will start glimepiride 1 mg daily. Recommendation is to maintain blood sugars less 140 fasting and less than 200 after meals. Further adjustment can be done by her PCP. Patient has hypertension. Medications adjusted due to acute renal failure. At discharge patient will continue with Norvasc 5 mg 1 pill twice daily and carvedilol 12.5 mg 1 pill twice daily. Lisinopril and clonidine has been discontinued. Recommendation is to maintain blood pressures less 150/80. Further adjustment can be done by her PCP. Patient likely has GERD. CT scan showed esophagitis. Patient started on Protonix 40 mg 1 pill once daily. She will continue with this at discharge. Recommendation is for the patient follow up with GI as an outpatient to further evaluate. Patient will likely require EGD and colonoscopy to further evaluate. Patient found to have a right parotid mass. Case discussed with the ENT. Recommendations for the patient follow up with ENT as an outpatient. Patient will need fine-needle aspiration biopsy to further assess. Patient came in with acute renal failure likely from dehydration and medications. Medications adjusted as above. Patient now back to baseline. Recommendation to recheck lab-BMP in 1 week to monitor her progress. Recommendation on no further use of nonsteroidal anti-inflammatories. Future medications may need to be renally dosed. At discharge hepatitis panel pending at discharge. EEG was done by neurology. This is likely unremarkable. This will be followed up as an outpatient. Patient has hypothyroidism. Patient continue with her medication. Tobacco cessation addressed in detail. Nicotine patch provided. Patient found to have B12 deficiency. At discharge she will continue with B12 supplementation. Vital Signs/Physical Exam: Temp Pulse Resp BP Pulse Ox 96.8 F 75 12 147/102 H 98 01/01/18 08:00 01/01/18 09:40 01/01/18 08:00 01/01/18 09:40 01/01/18 08:00 General: Alert, In no apparent distress, Oriented x3, Cooperative HEENT: Atraumatic, Mucous membr. moist/pink Neck: Supple Respiratory: Clear to auscultation bilaterally, Normal air movement Cardiovascular: Normal pulses, Regular rate/rhythm Gastrointestinal: Normal bowel sounds, Soft and benign, Non-distended, No tenderness, No masses, No rebound, No guarding Musculoskeletal: No erythema, No tenderness, No warmth Integumentary: No tenderness/swelling, No erythema, No warmth, No cyanosis Neurological: Normal speech, Normal strength at 5/5 x4 extr, Normal tone, Normal affect Laboratory Data at Discharge: WBC 5.8 K/uL (4.3-10.9) D 01/01/18 05:20 Hgb 12.4 g/dL (12.0-15.0) 01/01/18 05:20 Hct 37.3 % (36.0-45.0) 01/01/18 05:20 Plt Count 336 K/uL (152-406) D 01/01/18 05:20 PT 12.6 SECONDS (9.5-12.5) H 12/29/17 09:10 INR 1.07 12/29/17 09:10 APTT 22.2 SECONDS (24.3-36.9) L 12/29/17 09:10 Sodium 140 mmol/L (136-145) 01/01/18 05:20 Potassium 3.9 mmol/L (3.5-5.1) 01/01/18 05:20 BUN 14 mg/dL (7-18) 01/01/18 05:20 Creatinine 1.00 mg/dL (0.55-1.3) 01/01/18 05:20 Glucose 104 mg/dL (74-106) 01/01/18 05:20 Phosphorus 3.0 mg/dL (2.5-4.9) 01/01/18 05:20 Magnesium 1.2 mg/dL (1.8-2.4) L* D 01/01/18 05:20 Total Bilirubin 0.2 mg/dL (0.2-1.0) 01/01/18 05:20 AST 47 U/L (15-37) H 01/01/18 05:20 ALT 46 U/L (12-78) 01/01/18 05:20 Alkaline Phosphatase 58 U/L (45-117) 01/01/18 05:20 Troponin I < 0.02 ng/mL (0.0-0.045) 12/30/17 05:22 Triglycerides 205 mg/dL (<150) H 12/30/17 05:22 Cholesterol 184 mg/dL (<200) 12/30/17 05:22 HDL Cholesterol 47 mg/dL (40-60) 12/30/17 05:22 Cholesterol/HDL Ratio 3.91 12/30/17 05:22 Home Medications: Carvedilol [Coreg*] 12.5 mg PO BID #60 tab 11/24/15 Levothyroxine Sodium [Unithroid] 25 mcg PO DAILY #30 tablet 11/24/15 Cholecalciferol (Vitamin D3) [Vitamin D 1000 Iu Tab*] 1 tab PO DAILY 05/27/17 Simvastatin 20 mg PO DAILY 05/27/17 Amlodipine [Norvasc*] 5 mg PO BID #60 tab 01/01/18 Aspirin [Aspirin EC 81 MG] 81 mg PO DAILY #90 tablet. 01/01/18 Cyanocobalamin (Vitamin B-12) [Vitamin B-12] 1,000 mcg PO DAILY #30 tablet 01/01 Glimepiride 1 mg PO DAILY #30 tablet 01/01/18 Nicotine [Nicoderm*] 21 mg TD DAILY #30 patch.td24 01/01/18 Pantoprazole [Protonix Tab] 40 mg PO DAILY #30 tab 01/01/18 New Medications: Amlodipine [Norvasc*] 5 mg PO BID #60 tab Aspirin [Aspirin EC 81 MG] 81 mg PO DAILY #90 tablet. Cyanocobalamin (Vitamin B-12) [Vitamin B-12] 1,000 mcg PO DAILY #30 tablet Glimepiride 1 mg PO DAILY #30 tablet Nicotine [Nicoderm*] 21 mg TD DAILY #30 patch.td24 Pantoprazole [Protonix Tab] 40 mg PO DAILY #30 tab Patient Discharge Instructions: 1. Patient will need to follow with her PCP in 1 week to follow up this hospitalization. 2. Patient presented with syncopal episode likely multifactorial secondary to medication-lisinopril/metformin/Aleve , diarrhea and dehydration. Patient found to have acute renal failure secondary to dehydration. Patient evaluated by neurology, nephrology and cardiology. MRI negative for acute stroke. Renal ultrasound shows no chronic renal disease. CT scan abdomen showed esophagitis. MRI showed incidental right parotid mass. Patient improved with IV fluids and medication adjustment. Renal function back to baseline. At discharge, clonidine, lisinopril, metformin has been discontinued. Recommendation on no further use of nonsteroidal anti-inflammatories. Recommendation is to recheck lab-BMP in 1 week to monitor progress. Increase fluid intake recommended. 3. Patient has hypertension. Echocardiogram unremarkable. Medications have been adjusted due to recent acute renal failure secondary to dehydration. Lisinopril, clonidine has been discontinued. At discharge she will continue with carvedilol 12.5 mg 1 pill twice daily and Norvasc 5 mg 1 pill twice daily. Recommendation is to maintain blood pressures less 150/80. Further adjustment can be done by her PCP. 4. Patient has diabetes. Hemoglobin A1c 5.5. Metformin was discontinued due to acute renal failure. At discharge metformin will be discontinued. Patient reports abdominal complaints with metformin. At discharge the patient will go home on glimepiride 1 mg daily. Recommendation is to maintain blood sugars less 140 fasting and less than 200 after meals. Further adjustment can be done by her PCP. 5. Patient has hyperlipidemia. Patient will continue with Zocor 20 mg 1 pill once daily. 6. Patient likely has GERD. CT scan revealed esophagitis. Patient will continue with Protonix 40 mg 1 pill once daily at discharge. Recommendation is for the patient follow up with GI as an outpatient to further evaluate. Patient may require a EGD in the future to further assess. 7. Patient found to have right parotid mass. Case discussed with ENT. Recommendation is for the patient to follow up with ENT as an outpatient to further evaluate. Patient will need fine-needle aspiration biopsy further assess. This can be arranged by her PCP or ENT. 8. Patient has hypothyroidism. Patient continue with her medication. 9. Tobacco cessation education will be provided. Patient provided nicotine patch as needed. Diet: Renal Activity: Ad sunitha Time spent managing pt's care (in minutes): 55
[2018-01-01 13:06] VITALS: BP 141/91; TEMP 97.4
--- NOTE | 2018-01-01 22:19 | PN ---
Date of Progress Note: 01/01/2018 Chief Complaint: Acute kidney injury, nonoliguric, with prerenal azotemia due to effect of NORMA inhibitor causing severe renal hypoperfusion in setting of hypovolemia. History Of Present Illness: The patient was brought to the hospital because of syncope and presyncope. She was found to have hypotension and acute kidney injury. She was started on IV fluids for volume resuscitation and treatment of acute kidney injury. She responded to IV fluids. She is tolerating p.o. intake. Renal function has improved to baseline. Review of Systems: Denies fever or chills. Physical Examination: Lungs: Clear to auscultation bilaterally. Heart: S1, S2. Abdomen: Soft, benign. Extremities: No edema. Impression And Plan: 1. Acute kidney injury, remains nonoliguric. Renal function is gradually improving. 2. Hypomagnesemia. Magnesium replacement was ordered. Monitor magnesium level. 3. Hyponatremia, was found when the patient came to the hospital, and normal saline was started, and sodium level is in acceptable control. 4. Hypokalemia. Replacement was ordered and potassium level is stable. 5. Hypertension. The patient was taken off NORMA inhibitor due to renal hypoperfusion, acute kidney injury, and hypotension. 6. Acute kidney injury is resolving. The patient will follow up with Nephrology for further adjustment of medications. NORMA inhibitor is currently on hold. 7. Plan is to avoid nonsteroidal anti-inflammatory medication which may be culprit for renal hypoperfusion as well as may lead to allergic interstitial nephritis. VINICIUS/RAJINDER Voice ID: [id number] Report ID: [id number] OSCAR
[2018-01-02 04:45] LABS: HBsAG Nonreactive (Nonreactive); Hepatitis A IgM Antibody Nonreactive
--- NOTE | 2018-01-02 07:51 | EEG ---
CHART: [id number] TEST ID#: [id number] DATE OF STUDY: 12/30/2017 THE EEG WAS RECORDED PORTABLE IN THE ICU ON A 17 CHANNEL MACHINE. ELECTRODES WERE APPLIED IN THE USUAL MANNER USING THE INTERNATIONAL 10-20 SYSTEM. THE WAKING BACKGROUND RHYTHM IN THIS RECORD CONSISTS OF VERY WELL DEVELOPED AND WELL ORGANIZED WAVES OF 10 HZ., MAXIMAL IN THE POSTERIOR HEAD REGIONS WHICH ATTENUATE NORMALLY WITH EYE OPENING. IN DROWSINESS THE BACKGROUND DROPS TO 9 HZ. THERE ARE NO FOCAL OR LATERALIZING FEATURES. NO EPILEPTIFORM ACTIVITY APPEARS. SLEEP DID NOT OCCUR. HYPERVENTILATION WAS NOT PERFORMED. PHOTIC STIMULATION PRODUCED GOOD DRIVING BILATERALLY. IMPRESSION: NORMAL EEG FOR THE AGE OF THE PATIENT IN WAKE AND DROWSINESS.
== END 2018-01-01 16:36 | disposition home or self-care (01) | DRG 683 ==
LOC: ER 08:52 → ERHOLD 10:01 → 3RD-ICU 12:01 → 2ND 12-30 12:40
PROVIDERS: ADMIT Family Medicine; ATTEND Family Medicine
DX: N17.0 Acute kidney failure with tubular necrosis (principal); E87.1 Hypo-osmolality and hyponatremia; I10 Essential (primary) hypertension; R19.7 Diarrhea, unspecified; E83.42 Hypomagnesemia; R55 Syncope and collapse; E86.0 Dehydration; R11.2 Nausea with vomiting, unspecified; E13.9 Other specified diabetes mellitus without complications; E87.6 Hypokalemia; E53.8 Deficiency of other specified B group vitamins; I89.8 Other specified noninfective disorders of lymphatic vessels and lymph nodes; E78.5 Hyperlipidemia, unspecified; K21.9 Gastro-esophageal reflux disease without esophagitis; K21.0 Gastro-esophageal reflux disease with esophagitis; F17.200 Nicotine dependence, unspecified, uncomplicated; Z23 Encounter for immunization
CPT/HCPCS: 36415; 70450; 70544; 70551; 71045; 74176; 76770; 80048; 80053; 80061; 80069; 80074; 80076; 81003; 81015; 82550; 82553; 82570; 82607; 82962; 83036; 83735; 83880; 83970; 84145; 84156; 84439; 84443; 84484; 85025; 85610; 85730; 87040; 87045; 87046; 87177; 87209; 87493; 89055; 90670; 93005; 93306; 93880; 95816; 96361; 96365; 96366; 99285; C9113; G0009; J1650; J2543; J3475; J7030

== ENCOUNTER 2018-10-16 15:35 | Emergency (ER) | payer SELFPAY ==
--- OUTSIDE RECORDS SUMMARY | 2018-10-16 15:53 | XMS REPORT ---
[...] Medications Results No Known Results Summary Purpose eClinicalBlack coin Submission
--- OUTSIDE RECORDS SUMMARY | 2018-10-16 15:53 | XMS REPORT ---
[...] Medications Results No Known Results Summary Purpose eClinicalGoMiles Submission
--- OUTSIDE RECORDS SUMMARY | 2018-10-16 15:53 | XMS REPORT ---
[...] Medications Results No Known Results Summary Purpose eClinicalMoka Submission
--- OUTSIDE RECORDS SUMMARY | 2018-10-16 15:53 | XMS REPORT ---
[...] Date Status Dosage System Date Metformin HCl [facility] 70904638208 1000 MG Orally October 28, Active 1 tablet Twice a day 2017 with a meal Results No Known Results Summary Purpose eClinicalWorks Submission
--- OUTSIDE RECORDS SUMMARY | 2018-10-16 15:53 | XMS REPORT ---
[...] End Status Dosage System Date Date Cardura [facility] 65435806439 1 MG Orally Active 1 tablet Once a day Carvedilol [facility] 59483866413 12.5 MG Orally Active 1 tablet Twice daily Vitamin C [facility] [address] Orally Once a Active 1 tablet day Clonidine HCl [facility] 12426484412 0.1 MG Orally Active 1 tablet Once daily at bedtime Nitrofurantoin Monohyd [facility] 58526822636 100 MG Oral Active not Macro defined MetFORMIN HCl ER (OSM) ND 07083763254 1000 MG Orally October Active 1 tablet Twice daily 24, 2018 Simvastatin [facility] 83988146884 20 mg Orally Active 1 tablet Once a day Levothyroxine Sodium [facility] 92480237179 25 MCG Orally Active 1 tablet Once a day on an empty stomach in the morning Lisinopril [facility] 30374234784 20 mg Orally Active 1 tablet Once a day Potassium ND 0 Orally Once a Active 1 tablet day Hydrochlorothiazide [facility] 66496114833 12.5 MG Oral Active not defined Ondansetron [facility] 40060289389 4 MG Oral Active not defined Metformin HCl [facility] 39230483320 1000 MG Orally Active 1 tablet Twice a day with a meal Vitamin D-400 [facility] [address] Orally Once a Active not day defined Results No Known Results Summary Purpose eClinicalWorks Submission
[2018-10-16 16:17] LABS: Absolute Lymphocytes (CBC) 1.5 K/uL (0.7-4.9); Absolute Monocytes 0.6 K/uL (0.1-1.3); Absolute Neutrophil 6.3 K/uL (1.8-8.0); Basophils % 0.6 % (0-1.3); Hematocrit 43.1 % (36.0-45.0); Lymphocytes % 18.2 % (15.3-44.8); MPV 8.4 fL (7.6-11.3); Monocytes % 6.5 % (3.3-12.3); RBC Red Blood Cell Count 4.12 M/uL (3.86-4.86)
[2018-10-16 16:30] LABS: Protime INR 0.99
--- NOTE | 2018-10-16 16:34 | RAD REPORT ---
EXAM DESCRIPTION: Jassi Single View10/16/2018 4:21 pm CLINICAL HISTORY: Chest pain COMPARISON: December 2017 FINDINGS: The lungs appear clear of acute infiltrate. The heart is normal size IMPRESSION: No acute abnormalities displayed
[2018-10-16 16:40] LABS: ALT/SGPT 40 U/L (12-78); AST/SGOT 41 U/L (15-37); Albumin 4.1 g/dL (3.4-5.0); Alkaline Phosphatase 70 U/L (45-117); BUN Blood Urea Nitrogen 12 mg/dL (7-18); Bicarbonate 32 mmol/L (21-32); Bilirubin Direct 0.4 mg/dL (0-0.2); Bilirubin Total 1.8 mg/dL (0.2-1.0); Glucose Level 182 mg/dL (74-106); NT PRO-BNP 120 pg/mL (<125); Protein, Total 8.1 g/dL (6.4-8.2); Sodium Level 136 mmol/L (136-145); Troponin (Emerg Dept Use Only) < 0.02 ng/mL (0.0-0.045)
[2018-10-16 16:56] LABS: Potassium 2.9 mmol/L (3.5-5.1)
[2018-10-16 16:57] LABS: Magnesium 1.1 mg/dL (1.8-2.4)
[2018-10-16] MEDS ORDERED: FAMOTIDINE 20 MG/2 ML VIAL IV ONE (17:07)
[2018-10-16] MEDS ORDERED: Magnesium Sulfate 2gm IVPB 2 G/50 ML BAG IV ONE (17:19)
[2018-10-16] MEDS ORDERED: POTASSIUM 25 MEQ EFFERV TAB ONE (17:19)
--- NOTE | 2018-10-16 18:18 | RAD REPORT ---
EXAM DESCRIPTION: CT - Abdomen Pelvis W Contrast - 10/16/2018 5:32 pm CLINICAL HISTORY: Abdominal pain/epigastric pain COMPARISON: 2016 TECHNIQUE: Computed axial tomography of the abdomen pelvis was obtained. 100 cc Isovue-300 was admin istered intravenously. Oral contrast was not requested which limits evaluation of bowel. All CT scans are performed using dose optimization technique as appropriate and may include automated exposure control or mA/KV adjustment according to patient size. FINDINGS: Fatty liver Spleen, pancreas, adrenal and kidneys appear unremarkable. Diverticula stem from the colon without evidence of diverticulitis. Spondylosis involves lumbar spine resulting in spinal stenosis IMPRESSION: Fatty liver
[2018-10-16] MEDS ORDERED: ONDANSETRON 4 MG/2 ML VIAL ONE (19:39)
--- NOTE | 2018-10-16 21:45 | ER ---
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 Transition of care: patient was not received from another setting of care. Onset of symptoms was October 16, 2018. Risk Assessment: Do you want to hurt yourself or someone else? Patient reports no desire to harm self or others. Initial Sepsis Screen: Does the patient meet any 2 criteria? No. Patient's initial sepsis screen is negative. Does the patient have a suspected source of infection? No. Patient's initial sepsis screen is negative. Care prior to arrival: IV initiated. 20 GA, in the left antecubital area, Glucose check: 211. 15:41 Method Of Arrival: EMS: [facility] sg 15:41 Acuity: NIKA 3 sg Historical: - Allergies: 15:49 Bactrim; sg - Home Meds: 15:49 carvedilol 6.25 mg Oral tab 2 tabs 2 times per day [Active]; levothyroxine [Active]; sg lisinopril 20 mg Oral tab 1 tab once daily [Active]; metformin 1,000 mg Oral tab [Active]; simvastatin 20 mg Oral tab 1 tab once daily [Active]; - PMHx: 15:49 Diabetes - NIDDM; High Cholesterol; Hypertension; Pancreatitis; sg - PSHx: 15:49 Appendectomy; sg - Immunization history:: Adult Immunizations up to date. - Social history:: Smoking status: Patient/guardian denies using tobacco. - Ebola Screening: : Patient negative for fever greater than or equal to 101.5 degrees Fahrenheit, and additional compatible Ebola Virus Disease symptoms Patient denies exposure to infectious person Patient denies travel to an Ebola-affected area in the 21 days before illness onset No symptoms or risks identified at this time. Assessment: 19:20 Reassessment:. General: Appears in no apparent distress. uncomfortable, Behavior is tl2 calm, cooperative, appropriate for age. Pain: Complains of pain in xyphoid area and mid-sternal area Pain does not radiate. Quality of pain is described as burning, Pain began 1 day ago. Neuro: Level of Consciousness is awake, alert, obeys commands, Oriented to person, place, time, situation. Cardiovascular: Chest pain is described as mild, quality is burning, is located in epigastric area. Respiratory: Airway is patent Respiratory effort is even, unlabored, Respiratory pattern is regular, symmetrical. GI: Patient currently denies diarrhea, nausea, vomiting. : No signs and/or symptoms were reported regarding the genitourinary system. Derm: Skin is pink, warm \\T\\ dry. 19:57 Reassessment: pt ambulatory to restroom without assistance. Will draw repeat troponin tl2 at 2030. 21:32 Reassessment: Patient appears in no apparent distress at this time. Patient and/or tl2 family updated on plan of care and expected duration. Pain level reassessed. Patient is alert, oriented x 3, equal unlabored respirations, skin warm/dry/pink. Vital Signs: 15:46 BP 123 / 91; Pulse 90; Resp 17; Temp 98.4; Pulse Ox 97% on R/A; Pain 6/10; sg 19:57 BP 141 / 93; Pulse 88; Resp 18; Pulse Ox 95% on R/A; tl2 21:32 BP 157 / 102; Pulse 97; Resp 20; Pulse Ox 96% on R/A; tl2 ED Course: 15:39 Patient arrived in ED. sg 15:39 Nancy Oliva MD is Private Physician. sg 15:41 Arm band placed on. sg 15:46 Triage completed. sg 15:51 EKG done, by vascular ultrasound technologist. reviewed by Dallas Arreola MD. sm3 16:00 Eleno Shrestha NP is PHCP. pm1 16:00 Tomas Castano MD is Attending Physician. pm1 16:21 Pancho Katz, RN is Primary Nurse. sg 16:22 XRAY Chest (1 view) In Process Unspecified. EDMS 17:[address] via wheelchair. jg6 17:32 CT Abd/Pelvis - W/Contrast: Iv contrast only In Process Unspecified. EDMS 17:32 CT completed. Patient tolerated procedure well. Patient moved back from CT. vm2 21:28 Sharri Wetzel, RN is Primary Nurse. ed1 22:26 No provider procedures requiring assistance completed. IV discontinued, intact, ed1 bleeding controlled, No redness/swelling at site. Pressure dressing applied. Administered Medications: 17:00 Drug: Pepcid 20 mg Route: IVP; Site: left antecubital; sg 17:00 Drug: Magnesium Sulfate 2 grams Route: IVPB; Infused Over: 2 hrs; Site: left sg antecubital; 17:00 Drug: Potassium Effervescent Tablet 50 mEq Route: PO; sg 21:08 Follow up: Response: No adverse reaction tl2 19:36 Drug: Zofran 4 mg Route: IVP; Site: left antecubital; tl2 20:30 Follow up: Response: No adverse reaction; Nausea is decreased tl2 21:40 Drug: GI Cocktail without - (Maalox Suspension 30 ml, Lidocaine Liquid 2 % 15 ed1 ml) Route: PO; Outcome: 21:45 Discharge ordered by MD. pm1 22:26 Discharged to home ambulatory, with family. ed1 22:26 Condition: good 22:26 Discharge instructions given to patient, Instructed on discharge instructions, follow up and referral plans. Demonstrated understanding of instructions, follow-up care. 22:27 Patient left the ED. ed1 Signatures: Dispatcher [employer] EDID Pancho Katz RN RN Sharri Wetzel, TEE RN ed1 Eleno Shrestha, PRASANNA EDGER TECHNICIAN pm1 Nicki Stanton RN RN tl2 Regina Maria 2 Dolores Bermudez 3 Jazmyn Abarca jg6
[2018-10-16] MEDS ORDERED: MAGNE/ALUM HYDROXD 30 ML UCUP ONE (21:46)
[2018-10-16] MEDS ORDERED: LIDOCAINE VISCOUS 2% SOLN 15 ML UDC ONE (21:46)
--- NOTE | 2018-10-16 21:46 | EDPHYS ---
Physician Documentation [facility] Name: Billie Botello Age: 57 yrs Sex: Female : 1960 Arrival Date: 10/16/2018 Time: 15:39 Bed 18 Private MD: Nancy Oliva ED Physician Tomas Castano HPI: 10/16 18:00 This 57 yrs old Female presents to ER via EMS with complaints of Chest Pain, pm1 High Blood Pressure. 18:00 The patient or guardian reports chest pain that is located primarily in the mid-sternal pm1 area. Onset: just prior to arrival. The pain does not radiate. Associated signs and symptoms: Pertinent negatives: abdominal pain, cough, nausea, shortness of breath, vomiting. The chest pain is described as burning. Duration: The patient or guardian reports a single episode, that is still ongoing. Modifying factors: The symptoms are alleviated by nothing. the symptoms are aggravated by Drinking water. Severity of pain: in the emergency department the pain has improved. The patient has experienced similar episodes in the past, several times. The patient has been recently seen by a physician: the patient's primary care provider, instructed to stop taking ranatadine 2 days ago. Patient with history of GERD. Patient with chest pain onset today with drinking water. Water felt like it was getting stuck. Patient recently stopped taking ranatadine. Historical: - Allergies: 15:49 Bactrim; sg - Home Meds: 15:49 carvedilol 6.25 mg Oral tab 2 tabs 2 times per day [Active]; levothyroxine [Active]; sg lisinopril 20 mg Oral tab 1 tab once daily [Active]; metformin 1,000 mg Oral tab [Active]; simvastatin 20 mg Oral tab 1 tab once daily [Active]; - PMHx: 15:49 Diabetes - NIDDM; High Cholesterol; Hypertension; Pancreatitis; sg - PSHx: 15:49 Appendectomy; sg - Immunization history:: Adult Immunizations up to date. - Social history:: Smoking status: Patient/guardian denies using tobacco. - Ebola Screening: : Patient negative for fever greater than or equal to 101.5 degrees Fahrenheit, and additional compatible Ebola Virus Disease symptoms Patient denies exposure to infectious person Patient denies travel to an Ebola-affected area in the 21 days before illness onset No symptoms or risks identified at this time. ROS: 18:00 Constitutional: Negative for fever, chills, and weight loss, Eyes: Negative for injury, pm1 pain, redness, and discharge, ENT: Negative for injury, pain, and discharge, Neck: Negative for injury, pain, and swelling. 18:00 Respiratory: Negative for shortness of breath, cough, wheezing, and pleuritic chest pain, Abdomen/GI: Negative for abdominal pain, nausea, vomiting, diarrhea, and constipation, Back: Negative for injury and pain, : Negative for injury, bleeding, discharge, and swelling, MS/Extremity: Negative for injury and deformity, Skin: Negative for injury, rash, and discoloration, Neuro: Negative for headache, weakness, numbness, tingling, and seizure. 18:00 Cardiovascular: Positive for chest pain, Negative for edema, orthopnea, palpitations. Exam: 18:00 Constitutional: This is a well developed, well nourished patient who is awake, alert, pm1 and in no acute distress. Head/Face: Normocephalic, atraumatic. Eyes: Pupils equal round and reactive to light, extra-ocular motions intact. Lids and lashes normal. Conjunctiva and sclera are non-icteric and not injected. Cornea within normal limits. Periorbital areas with no swelling, redness, or edema. ENT: Nares patent. No nasal discharge, no septal abnormalities noted. Tympanic membranes are normal and external auditory canals are clear. Oropharynx with no redness, swelling, or masses, exudates, or evidence of obstruction, uvula midline. Mucous membranes moist. Neck: Trachea midline, no thyromegaly or masses palpated, and no cervical lymphadenopathy. Supple, full range of motion without nuchal rigidity, or vertebral point tenderness. No Meningismus. Chest/axilla: Normal chest wall appearance and motion. Nontender with no deformity. No lesions are appreciated. Cardiovascular: Regular rate and rhythm with a normal S1 and S2. No gallops, murmurs, or rubs. Normal PMI, no JVD. No pulse deficits. Respiratory: Lungs have equal breath sounds bilaterally, clear to auscultation and percussion. No rales, rhonchi or wheezes noted. No increased work of breathing, no retractions or nasal flaring. Abdomen/GI: Soft, non-tender, with normal bowel sounds. No distension or tympany. No guarding or rebound. No evidence of tenderness throughout. Back: No spinal tenderness. No costovertebral tenderness. Full range of motion. Skin: Warm, dry with normal turgor. Normal color with no rashes, no lesions, and no evidence of cellulitis. MS/ Extremity: Pulses equal, no cyanosis. Neurovascular intact. Full, normal range of motion. 18:00 Neuro: Orientation: is normal, Motor: is normal, moves all fours, Sensation: is normal, no obvious gross deficits, Gait: is steady, at a normal pace, without difficulty. Vital Signs: 15:46 BP 123 / 91; Pulse 90; Resp 17; Temp 98.4; Pulse Ox 97% on R/A; Pain 6/10; sg 19:57 BP 141 / 93; Pulse 88; Resp 18; Pulse Ox 95% on R/A; tl2 21:32 BP 157 / 102; Pulse 97; Resp 20; Pulse Ox 96% on R/A; tl2 MDM: 16:03 Patient medically screened. pm1 17:24 ED course: patient takes hctz, likely cause for hypokalemia. pm1 21:44 Data reviewed: vital signs. Data interpreted: Pulse oximetry: on room air is 96 %. pm1 Interpretation: normal. Counseling: I had a detailed discussion with the patient and/or guardian regarding: the historical points, exam findings, and any diagnostic results supporting the discharge/admit diagnosis, lab results, radiology results, the need for outpatient follow up, to return to the emergency department if symptoms worsen or persist or if there are any questions or concerns that arise at home. 10/16 16:00 Order name: Basic Metabolic Panel; Complete Time: 17:08 pm1 10/16 16:00 Order name: CBC with Diff; Complete Time: 16:55 pm1 10/16 16:00 Order name: LFT's; Complete Time: 17:08 pm1 10/16 16:00 Order name: Magnesium; Complete Time: 17:08 pm1 10/16 16:00 Order name: NT PRO-BNP; Complete Time: 17:08 pm1 10/16 16:00 Order name: PT-INR; Complete Time: 16:55 pm1 10/16 16:00 Order name: Troponin (emerg Dept Use Only); Complete Time: 17:08 pm1 10/16 16:00 Order name: XRAY Chest (1 view); Complete Time: 16:55 pm1 10/16 17:12 Order name: CT Abd/Pelvis - W/Contrast: Iv contrast only; Complete Time: 18:21 pm1 10/16 20:12 Order name: Troponin (emerg Dept Use Only): 2021 for 4 hour repeat; Complete Time: 21:22pm1 10/16 16:00 Order name: EKG; Complete Time: 16:01 pm1 10/16 16:00 Order name: Cardiac monitoring; Complete Time: 16:22 pm1 10/16 16:00 Order name: EKG - Nurse/Tech; Complete Time: 16:22 pm1 10/16 16:00 Order name: IV Saline Lock; Complete Time: 16:22 pm1 10/16 16:00 Order name: Labs collected and sent; Complete Time: 16:22 pm1 10/16 16:00 Order name: O2 Per Protocol; Complete Time: 16:22 pm1 10/16 16:00 Order name: O2 Sat Monitoring; Complete Time: 16:23 pm1 Administered Medications: 17:00 Drug: Pepcid 20 mg Route: IVP; Site: left antecubital; sg 17:00 Drug: Magnesium Sulfate 2 grams Route: IVPB; Infused Over: 2 hrs; Site: left sg antecubital; 17:00 Drug: Potassium Effervescent Tablet 50 mEq Route: PO; sg 21:08 Follow up: Response: No adverse reaction tl2 19:36 Drug: Zofran 4 mg Route: IVP; Site: left antecubital; tl2 20:30 Follow up: Response: No adverse reaction; Nausea is decreased tl2 21:40 Drug: GI Cocktail without - (Maalox Suspension 30 ml, Lidocaine Liquid 2 % 15 ed1 ml) Route: PO; Disposition: 10/17 10:29 Co-signature as Attending Physician, Tomas Castano MD. Disposition: 10/16/18 21:45 Discharged to Home. Impression: Chest pain, unspecified, Gastritis, unspecified. - Condition is Stable. - Discharge Instructions: Nonspecific Chest Pain, Gastroesophageal Reflux Disease, Adult. - Work release form, Medication Reconciliation Form, Thank You Letter, Antibiotic Education, Prescription Opioid Use form. - Follow up: Emergency Department; When: As needed; Reason: Worsening of condition. Follow up: Private Physician; When: 2 - 3 days; Reason: Recheck today's complaints, Continuance of care, Re-evaluation by your physician. - Problem is new. - Symptoms have improved. 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 Impression: Chest pain, unspecified; ed1 Gastritis, unspecified. Condition is Stable. Forms are Medication Reconciliation Form, Thank You Letter, Antibiotic Education, Prescription Opioid Use. Follow up: Emergency Department; When: As needed; Reason: Worsening of condition. Follow up: Private Physician; When: 2 - 3 days; Reason: Recheck today's complaints, Continuance of care, Re-evaluation by your physician. Problem is new. Symptoms have improved. pm1
[2018-10-16 22:44] VITALS: TEMP 98.4
[2018-10-16 22:49] VITALS: BP 157/102; O2SAT 96
--- NOTE | 2018-10-17 05:51 | EKG ---
Test Date: 2018-10-16 Test Time: 15:38:43 Spin Instructor: EMMANUEL MEASUREMENT RESULTS: Intervals: Rate: 95 NE: 168 QRSD: 70 QT: 388 QTc: 487 Brooks: P: 46 NE: 168 QRS: 70 T: 68 INTERPRETIVE STATEMENTS: Normal sinus rhythm Cannot rule out Anterior infarct, age undetermined Abnormal ECG Compared to ECG 12/29/2017 09:11:55 Prolonged QT interval no longer present Myocardial infarct finding still present Electronically Signed On 10-17-18 05:50:39 CDT by Randall Botello
== END 2018-10-16 22:27 | disposition home or self-care (01) ==
LOC: ER 15:35
DX: K29.70 Gastritis, unspecified, without bleeding (principal); R07.9 Chest pain, unspecified; E11.9 Type 2 diabetes mellitus without complications; E78.00 Pure hypercholesterolemia, unspecified; I10 Essential (primary) hypertension; Z79.84 Long term (current) use of oral hypoglycemic drugs; Z79.899 Other long term (current) drug therapy
CPT/HCPCS: 36415; 71045; 74177; 80048; 80076; 83735; 83880; 84484; 85025; 85610; 93005; 96374; 96375; 99284; J2405; J3475; Q9967

== ENCOUNTER 2018-12-07 14:54 | Emergency (ER) | payer SELFPAY ==
--- OUTSIDE RECORDS SUMMARY | 2018-12-07 15:12 | XMS REPORT ---
[...] Medications Results No Known Results Summary Purpose eClinicalKarmaKey Submission
--- OUTSIDE RECORDS SUMMARY | 2018-12-07 15:12 | XMS REPORT ---
[...] Date Status Dosage System Date Metformin HCl [facility] 37480414387 1000 MG Orally October 28, Active 1 tablet Twice a day 2017 with a meal Results No Known Results Summary Purpose eClinicalWorks Submission
--- OUTSIDE RECORDS SUMMARY | 2018-12-07 15:12 | XMS REPORT ---
[...] Medications Results No Known Results Summary Purpose eClinicalAdept Cloud Submission
--- OUTSIDE RECORDS SUMMARY | 2018-12-07 15:12 | XMS REPORT ---
[...] End Status Dosage System Date Date Cardura [facility] 47100220650 1 MG Orally Active 1 tablet Once a day Carvedilol [facility] 96673882801 12.5 MG Orally Active 1 tablet Twice daily Vitamin C [facility] 87[address] Orally Once a Active 1 tablet day Clonidine HCl [facility] 04847806253 0.1 MG Orally Active 1 tablet Once daily at bedtime Nitrofurantoin Monohyd [facility] 10119445556 100 MG Oral Active not Macro defined MetFORMIN HCl ER (OSM) ND 63404765700 1000 MG Orally October Active 1 tablet Twice daily 24, 2018 Simvastatin [facility] 32422458861 20 mg Orally Active 1 tablet Once a day Levothyroxine Sodium [facility] 44916782308 25 MCG Orally Active 1 tablet Once a day on an empty stomach in the morning Lisinopril [facility] 88110052824 20 mg Orally Active 1 tablet Once a day Potassium ND 0 Orally Once a Active 1 tablet day Hydrochlorothiazide [facility] 23157367891 12.5 MG Oral Active not defined Ondansetron [facility] 29195612673 4 MG Oral Active not defined Metformin HCl [facility] 81501807021 1000 MG Orally Active 1 tablet Twice a day with a meal Vitamin D-400 [facility] [address] Orally Once a Active not day defined Results No Known Results Summary Purpose eClinicalWorks Submission
--- OUTSIDE RECORDS SUMMARY | 2018-12-07 15:12 | XMS REPORT ---
[...] Medications Results No Known Results Summary Purpose [email or web address] Submission
--- NOTE | 2018-12-07 15:32 | RAD REPORT ---
EXAM DESCRIPTION: CT - Ct Stroke Brain Wo Cont - 12/07/2018 3:20 pm CLINICAL HISTORY: numbness of arms and legs;Weakness CVA symptomology COMPARISON: Head Brain Wo Cont dated 12/29/2017; Head Brain Wo Cont dated 08/14/2017 TECHNIQUE: All CT scans are performed using dose optimization technique as appropriate and may inclu de automated exposure control or mA/KV adjustment according to patient size. FINDINGS: No intracranial hemorrhage, hydrocephalus or extra-axial fluid collection.Mild brain atrop hy.No areas of brain edema or evidence of midline shift. The paranasal sinuses and mastoids are clear. The calvarium is intact. IMPRESSION: No acute intracranial abnormality. The findings were discussed with ER physician Dr. Arreola on 12/07/2018 at 3:30 p.m. by telephone.
[2018-12-07 15:42] LABS: Absolute Lymphocytes (CBC) 0.8 K/uL (0.7-4.9); Absolute Monocytes 0.4 K/uL (0.1-1.3); Absolute Neutrophil 6.4 K/uL (1.8-8.0); Basophils % 0.6 % (0-1.3); Eosinophils % 0.7 % (0-4.4); Hematocrit 41.4 % (36.0-45.0); Lymphocytes % 10.4 % (15.3-44.8); MPV 8.2 fL (7.6-11.3); Monocytes % 5.2 % (3.3-12.3); RBC Red Blood Cell Count 4.09 M/uL (3.86-4.86)
[2018-12-07 15:52] LABS: Protime INR 1.02
[2018-12-07] MEDS ORDERED: ALTEPLASE 100 ML IV ONE (15:54)
[2018-12-07] MEDS ORDERED: NA CHLORIDE 0.9% 1,000 ML ONE (15:55)
[2018-12-07] MEDS ORDERED: NA CHLORIDE 0.9% 250 ML ONE (15:58)
[2018-12-07 16:04] LABS: ALT/SGPT 53 U/L (12-78); AST/SGOT 164 U/L (15-37); Albumin 3.1 g/dL (3.4-5.0); Alkaline Phosphatase 91 U/L (45-117); BUN Blood Urea Nitrogen 23 mg/dL (7-18); Bicarbonate 33 mmol/L (21-32); Bilirubin Direct 0.4 mg/dL (0-0.2); Bilirubin Total 1.1 mg/dL (0.2-1.0); CKMB Creatine Kinase MB < 1.0 ng/mL (0.3-3.6); Creatine Phosphokinase 71 U/L (26-192); Glucose Level 247 mg/dL (74-106); Protein, Total 7.4 g/dL (6.4-8.2); Sodium Level 129 mmol/L (136-145); Troponin (Emerg Dept Use Only) < 0.02 ng/mL (0.0-0.045)
[2018-12-07 16:08] LABS: Magnesium 0.9 mg/dL (1.8-2.4); Potassium 2.1 mmol/L (3.5-5.1)
--- NOTE | 2018-12-07 16:08 | RAD REPORT ---
EXAM DESCRIPTION: RAD - Chest Single View - 12/07/2018 4:01 pm CLINICAL HISTORY: weakness, numbness of arms and legs Chest pain. COMPARISON: Chest Single View dated 10/16/2018; Chest Single View dated 12/29/2017; Chest Pa And Lat ( 2 Views) dated 09/27/2017; Chest Single View dated 08/14/2017 FINDINGS: Portable technique limits examination quality. The lungs are grossly clear. The heart is normal in size. No displaced fractures. IMPRESSION: No acute intrathoracic process suspected.
--- NOTE | 2018-12-07 16:11 | EDPHYS ---
Physician Documentation [facility] Name: Billie Botello Age: 58 yrs Sex: Female : 1960 Arrival Date: 12/07/2018 Time: 14:56 Bed 3 Private MD: ED Physician Dallas Arreola HPI: 12/07 15:35 This 58 yrs old Female presents to ER via Wheelchair with complaints of cp Numbness Of Arm, Numbness Of Face. 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 Duration: The cp episode is continuous, the symptoms became worse while in ED. Patient reports worsening numbness to LUE and LLE with weakness now to LUE and LLE. Associated signs and symptoms: Pertinent negatives: abdominal pain, chest pain, diarrhea, vomiting. Severity of symptoms: in the emergency department the symptoms are worse. Patient's baseline: Neuro: alert and fully oriented, Motor: no deficits, Ambulation: walks without assistance, Speech: normal, The patient has a previous history of CVA. 15:35 The patient's problem is reported as paresthesias, in right upper extremity, in right cp lower extremity, in left upper extremity, in left lower extremity, in right side of face, in left side of face. Historical: - Allergies: 15:00 Bactrim; rb1 - Home Meds: 15:00 carvedilol 6.25 mg Oral tab 2 tabs 2 times per day [Active]; levothyroxine [Active]; rb1 lisinopril 20 mg Oral tab 1 tab once daily [Active]; metformin 1,000 mg Oral tab [Active]; simvastatin 20 mg Oral tab 1 tab once daily [Active]; - PMHx: 15:00 Diabetes - NIDDM; High Cholesterol; Hypertension; Pancreatitis; rb1 - PSHx: 15:00 Appendectomy; right wrist; rb1 - Immunization history:: Adult Immunizations up to date. - Social history:: Smoking status: Patient uses tobacco products, smokes one-half pack cigarettes per day. - Ebola Screening: : Patient negative for fever greater than or equal to 101.5 degrees Fahrenheit, and additional compatible Ebola Virus Disease symptoms. ROS: 15:40 Constitutional: Negative for body aches, chills, fever, poor PO intake. cp 15:40 Eyes: Negative for injury, pain, redness, and discharge. cp 15:40 ENT: Negative for drainage from ear(s), ear pain, sore throat, difficulty swallowing, difficulty handling secretions. 15:40 Neck: Negative for pain with movement, pain at rest, stiffness, tenderness. 15:40 Cardiovascular: Negative for chest pain, edema, palpitations. 15:40 Respiratory: Negative for cough, shortness of breath, wheezing. 15:40 Abdomen/GI: Negative for abdominal pain, nausea, vomiting, and diarrhea, black/tarry stool, rectal bleeding. 15:40 Back: Negative for pain at rest, pain with movement, radiated pain. 15:40 MS/extremity: Negative for injury or acute deformity, decreased range of motion, pain. 15:40 Neuro: Positive for numbness, weakness, of the left arm and left leg, Negative for altered mental status, dizziness, headache. 15:40 All other systems are negative. Exam: 15:38 Radiologist reports: negative for acute findings cp 15:43 Constitutional: The patient appears in no acute distress, alert, awake, cp non-diaphoretic, non-toxic, well developed, well nourished. 15:43 Head/Face: Normocephalic, atraumatic. cp 15:43 Eyes: Pupils equal round and reactive to light, extra-ocular motions intact. Lids and lashes normal. Conjunctiva and sclera are non-icteric and not injected. Cornea within normal limits. Periorbital areas with no swelling, redness, or edema. ENT: Nares patent. No nasal discharge, no septal abnormalities noted. Tympanic membranes are normal and external auditory canals are clear. Oropharynx with no redness, swelling, or masses, exudates, or evidence of obstruction, uvula midline. Mucous membranes moist. Chest/axilla: Normal chest wall appearance and motion. Nontender with no deformity. No lesions are appreciated. 15:43 Cardiovascular: Rate: normal, Rhythm: regular, Heart sounds: murmur, not appreciated, Edema: is not appreciated, JVD: is not appreciated. 15:43 ECG was reviewed by the Attending Physician. 15:43 Respiratory: the patient does not display signs of respiratory distress, Respirations: normal, no use of accessory muscles, no retractions, no splinting, no tachypnea, labored breathing, is not present, Breath sounds: are clear throughout, no decreased breath sounds, no stridor, no wheezing. 15:43 Abdomen/GI: Inspection: abdomen appears normal, Palpation: abdomen is soft and non-tender, in all quadrants. 15:43 Back: pain, is absent, ROM is normal. 15:43 Musculoskeletal/extremity: Exam is negative for bony tenderness, calf tenderness, decreased range of motion, injury, the left arm and left leg and left side of face decreased sensation. 15:43 Skin: cellulitis, is not appreciated, no rash present. 15:43 Neuro: Orientation: to person, place \T\ time. Mentation: is normal. Vital Signs: 15:00 BP 100 / 73; Pulse 106; Resp 20; Pulse Ox 96% on R/A; Weight 89.36 kg (R); Height 5 ft. rb1 4 in. (162.56 cm) (R); Pain 0/10; 15:35 BP 100 / 71; Pulse 96; Resp 20 S; Pulse Ox 96% on R/A; sg 15:37 Weight 92.99 kg (M); sg 15:55 BP 110 / 70; Pulse 94; Resp 18 S; Pain 10/10; sg 16:01 BP 96 / 70; Pulse 95 MON; Pain 9/10; sg 16:10 BP 105 / 84; Pulse 95 MON; Resp 17 S; Pulse Ox 98% on R/A; sg 16:25 BP 109 / 82; Pulse 95; Resp 17; Pulse Ox 95% on R/A; sg 16:40 BP 92 / 60; Pulse 96; Resp 17; Pulse Ox 90% on R/A; sg 16:55 BP 87 / 50; Pulse 99; Resp 19; Pulse Ox 100% on 2 lpm NC; sg 15:37 Body Mass Index 35.19 (92.99 kg, 162.56 cm) sg 16:40 pt placed to 02 via NC at 2 lpm, O2 reading increased to 98% sg NIH Stroke Scale Scores: 15:20 NIHSS Score: 3 cp 15:55 NIHSS Score: 2 sg MDM: 15:03 Patient medically screened. edgard 16:20 Data reviewed: vital signs, nurses notes, lab test result(s), EKG, radiologic studies, cp CT scan, plain films, I have discussed the patient's presentation/case with the attending Emergency Department Physician;. 16:20 Differential diagnosis: CVA, TIA, metabolic disorder, drug effects. Test cp interpretation: by ED physician or midlevel provider: ECG, plain radiologic studies. Response to treatment: the patient's symptoms have mildly improved after treatment. 12/07 15:14 Order name: CPK; Complete Time: 16:19 cp 12/07 15:14 Order name: Ckmb; Complete Time: 16:19 cp 12/07 15:14 Order name: Magnesium; Complete Time: 16:19 cp 12/07 16:20 Interpretation: Abnormal: MG 0.9. cp 12/07 15:14 Order name: Hepatic Function; Complete Time: 16:19 cp 12/07 15:14 Order name: Troponin (emerg Dept Use Only); Complete Time: 16:19 cp 12/07 15:14 Order name: Basic Metabolic Panel; Complete Time: 16:19 cp 12/07 16:20 Interpretation: Normal except: NA 129; K 2.1; CL 80; CO2 33; GLUC 247; BUN 23; CRE cp 1.65; GFR 32; CA 7.8. 12/07 15:14 Order name: CBC with Diff; Complete Time: 15:56 cp 12/07 15:14 Order name: Protime (+inr); Complete Time: 15:56 cp 12/07 15:14 Order name: Ptt, Activated; Complete Time: 15:56 cp 12/07 15:14 Order name: CT Stroke Brain w/o Contrast; Complete Time: 15:56 cp 12/07 15:14 Order name: Stroke CXR 1 View; Complete Time: 16:19 cp 12/07 16:26 Order name: BMP: redraw; Complete Time: 17:24 cp 12/07 16:26 Order name: Magnesium: redraw; Complete Time: 17:24 cp 12/07 15:14 Order name: EKG; Complete Time: 15:17 cp 12/07 15:14 Order name: Accucheck; Complete Time: 15:36 cp 12/07 15:14 Order name: Cardiac monitoring; Complete Time: 15:28 cp 12/07 15:14 Order name: EKG - Nurse/Tech; Complete Time: 15:28 cp 12/07 15:14 Order name: IV Saline Lock; Complete Time: 15:29 cp 12/07 15:14 Order name: Labs collected and sent; Complete Time: 15:29 cp 12/07 15:14 Order name: NPO; Complete Time: 15:29 cp 12/07 15:14 Order name: O2 Per Protocol; Complete Time: 15:51 cp 12/07 15:14 Order name: O2 Sat Monitoring; Complete Time: 15:51 cp EC:43 Rate is 97 beats/min. Rhythm is regular. FL interval is normal. QRS interval is normal. cp QT interval is normal. Interpreted by me. Reviewed by me. Administered Medications: 15:35 Drug: NS 0.9% 1000 ml Route: IV; Rate: 1 bolus; Site: right hand; sg 15:55 Drug: Alteplase {Co-Signature: hb (Layne Billingsley RN).} Route: IV Thrombolytics; Rate: sg calculated rate; 16:02 Drug: morphine 2 mg Route: IVP; Site: right wrist; sg 16:02 Drug: Zofran 4 mg Route: IVP; Site: right wrist; sg 16:24 Drug: foLIC Acid 1 mg Route: IVPB; Site: right wrist; hb 16:40 Follow up: Response: No adverse reaction; IV Status: Completed infusion sg 16:36 Drug: morphine 2 mg Route: IVP; Site: right wrist; hb 16:36 Drug: Magnesium Sulfate 1 grams Route: IVPB; Infused Over: 1 hrs; Site: right hb antecubital; 16:36 Drug: Potassium Chloride 20 mEq Route: IV; Rate: calculated rate; Site: right hb antecubital; Disposition: 12/08 07:20 Co-signature as Attending Physician, Dallas Arreola MD I agree with the assessment and edgard plan of care. Disposition: 12/07/18 16:10 Transfer ordered to [facility]. Diagnosis are Hypokalemia, Hypomagnesemia, Cerebral infarction. - Reason for transfer: Higher level of care. - Accepting physician is DR Oconnor. - Condition is Stable. - Problem is new. - Symptoms have improved. NIH Stroke Scale - NIH Stroke Score Date: 12/07/2018 Time: 15:20 Total Score = 3 1a. Level of Consciousness (LOC) - 0(Alert) 1b. Level of Consciousness (LOC) (Year \T\ Age) - 0(Both) 1c. LOC Commands (Open \T\ Closes Eyes/Level Vial Inside Grinder) - 0(Both) 2. Best Gaze (Lateral Gaze Paresis) - 0(Normal) 3. Visual Field Loss - 0(No visual loss) 4. Facial Palsy - 1(Minor Paralysis) 5a. Left Arm: Motor (10-second hold) - 0(No drift) 5b. Right Arm: Motor (10-second hold) - 0(No drift) 6a. Left Leg: Motor (5-second hold - always test supine) - 0(No drift) 6b. Right Leg: Motor (5-second hold - always test supine) - 0(No drift) 7. Limb Ataxia (finger/nose \T\ heel/umanzor - test with eyes open) - 0(Absent) 8. Sensory Loss (pinprick arms/legs/face) - 1(Mild to moderate loss) 9. Best Language: Aphasia (description/naming/reading) - 0(No aphasia) 10. Dysarthria (speech clarity - read or repeat words) - 1(Mild to Moderate) 11. Extinction and Inattention (visual/tactile/auditory/spatial/personal) - 0(No abnormality) Initials: cp NIH Stroke Scale - NIH Stroke Score Date: 12/07/2018 Time: 15:55 Total Score = 2 1a. Level of Consciousness (LOC) - 0(Alert) 1b. Level of Consciousness (LOC) (Year \T\ Age) - 0(Both) 1c. LOC Commands (Open \T\ Closes Eyes/Level Vial Inside Grinder) - 0(Both) 2. Best Gaze (Lateral Gaze Paresis) - 0(Normal) 3. Visual Field Loss - 0(No visual loss) 4. Facial Palsy - 1(Minor Paralysis) 5a. Left Arm: Motor (10-second hold) - 0(No drift) 5b. Right Arm: Motor (10-second hold) - 0(No drift) 6a. Left Leg: Motor (5-second hold - always test supine) - 0(No drift) 6b. Right Leg: Motor (5-second hold - always test supine) - 0(No drift) 7. Limb Ataxia (finger/nose \T\ heel/umanzor - test with eyes open) - 0(Absent) 8. Sensory Loss (pinprick arms/legs/face) - 1(Mild to moderate loss) 9. Best Language: Aphasia (description/naming/reading) - 0(No aphasia) 10. Dysarthria (speech clarity - read or repeat words) - 0(Normal) 11. Extinction and Inattention (visual/tactile/auditory/spatial/personal) - 0(No abnormality) Initials: sg Signatures: Dispatcher [employer] Pancho Muhammad RN RN sg Anderson, Corey, MD MD cha Page, Corey, JOSE GARCIA cp Janice Kaba RN RN [facility] Layne Billingsley RN RN hb Heather Baxter RN hb Corrections: (The following items were deleted from the chart) 12/07 15:42 15:38 The patient's problem is reported as paresthesias, in right upper cp extremity, in left upper extremity, in right side of face, in left side of face, cp 16:20 16:20 Normal except: NA 129; K 2.1; CL 80; CO2 33; GLUC 247; BUN 23; CRE 1.65; cp GFR 32. cp 16:27 16:10 12/07/2018 16:10 Transfer ordered to [facility]. cp Diagnosis is Cerebrovascular disease, unspecified. Reason for transfer: Higher level of care. Accepting physician is DR Oconnor. Condition is Stable. Problem is new. Symptoms have improved. cp 17:11 16:27 12/07/2018 16:10 Transfer ordered to [facility]. sg Diagnosis is Hypokalemia; Hypomagnesemia; Cerebral infarction. Reason for transfer: Higher level of care. Accepting physician is DR Oconnor. Condition is Stable. Problem is new. Symptoms have improved. cp
--- NOTE | 2018-12-07 16:11 | ER ---
Nurse's Notes [facility] Name: Billie Botello Age: 58 yrs Sex: Female : 1960 Arrival Date: 12/07/2018 Time: 14:56 Bed 3 Private MD: Diagnosis: Hypokalemia;Hypomagnesemia;Cerebral infarction Presentation: 12/07 15:00 Presenting complaint: Patient states: Pt. started having left sided facial numbness, rb1 tingling to the arms and legs, left sided chest pain 0/10 now, at worst 8/10. C/o nausea, SOB, facial drooping on the left side, generalized weakness, and slurred speech. Transition of care: patient was not received from another setting of care. Onset of symptoms was December 07, 2018 at 14:45. Risk Assessment: Do you want to hurt yourself or someone else? Patient reports no desire to harm self or others. Care prior to arrival: None. 15:00 Method Of Arrival: Wheelchair rb1 15:00 Acuity: NIKA 2 rb1 16:10 Initial Sepsis Screen: Does the patient meet any 2 criteria? HR > 90 bpm. Does the sg patient have a suspected source of infection? No. Patient's initial sepsis screen is negative. Triage Assessment: 15:00 General: Appears uncomfortable, Behavior is calm, cooperative. Pain: Denies pain. rb1 Neuro: Level of Consciousness is awake, alert, obeys commands, Oriented to person, place, time, situation, Nozzle Worker are equal bilaterally Moves all extremities. Gait is unsteady, Speech is slurred, Facial droop on left, Pupils are PERRLA, Reports numbness in bilateral arms and legs. Cardiovascular: Reports nausea, shortness of breath, Respiratory: Airway is patent Respiratory effort is even, unlabored, Respiratory pattern is regular, symmetrical. GI: Reports nausea. : Derm: Skin is pink, warm \T\ dry. Musculoskeletal: Range of motion: intact in all extremities. Historical: - Allergies: 15:00 Bactrim; rb1 - Home Meds: 15:00 carvedilol 6.25 mg Oral tab 2 tabs 2 times per day [Active]; levothyroxine [Active]; rb1 lisinopril 20 mg Oral tab 1 tab once daily [Active]; metformin 1,000 mg Oral tab [Active]; simvastatin 20 mg Oral tab 1 tab once daily [Active]; - PMHx: 15:00 Diabetes - NIDDM; High Cholesterol; Hypertension; Pancreatitis; rb1 - PSHx: 15:00 Appendectomy; right wrist; rb1 - Immunization history:: Adult Immunizations up to date. - Social history:: Smoking status: Patient uses tobacco products, smokes one-half pack cigarettes per day. - Ebola Screening: : Patient negative for fever greater than or equal to 101.5 degrees Fahrenheit, and additional compatible Ebola Virus Disease symptoms. Screenin:55 Abuse screen: Denies threats or abuse. Denies injuries from another. Nutritional sg screening: No deficits noted. Tuberculosis screening: No symptoms or risk factors identified. Never had TB. Fall Risk None identified. 16:30 The patient has not been NPO before screening. The patient is alert, able to follow sg commands. The patient does not exhibit slurred or garbled speech The patient is not exhibiting difficulty speaking. The patient does not exhibit difficulty understanding words. The patient is able to swallow own secretions with no drooling or need for suction. Patient tolerated one teaspoon of water. No drooling, immediate coughing, gurgling, or clearing of the throat was noted. The patient tolerated 90mL of water. No drooling, immediate coughing, gurgling, or clearing of the throat was noted. The patient passed the bedside swallow screening. Oral medications may be given as ordered. Contact Physician for further diet orders. Assessment: 15:55 Reassessment: Patient appears in no apparent distress at this time. pt complaining of sg abd pain at this time, described as sharp and shooting across the abd, Natalia GARCIA notified. 16:00 Reassessment: orders received for morphine 2 mg IVP repeat x1, and Zofran 4 mg IVP per sg Natalia GARCIA. 16:10 Reassessment: pt reports numbness to the face has gotten much better at this time, pt sg smile appears symmetrical, pt reports the numbness to the left arm and left leg continues, and Natalia GARCIA notified of pt condition. General: Appears in no apparent distress. well groomed, well developed, well nourished, Behavior is cooperative, appropriate for age, anxious. Pain: Complains of pain in anterior aspect of left upper chest. Neuro: Level of Consciousness is awake, alert, obeys commands, Oriented to person, place, time, Speech is slurred, Facial droop on left. Cardiovascular: Patient's skin is warm and dry. Chest pain is described as mild, quality is clutching, is located in left anterior chest wall. Respiratory: Airway is patent Respiratory effort is even, unlabored, Respiratory pattern is regular, symmetrical. GI: Abdomen is round obese, Bowel sounds present X 4 quads. : No signs and/or symptoms were reported regarding the genitourinary system. EENT: No signs and/or symptoms were reported regarding the EENT system. Derm: Skin is pale, Skin temperature is warm. Musculoskeletal: Circulation, motion, and sensation intact. Range of motion: intact in all extremities, Swelling absent. 16:25 Reassessment: Patient states feeling better. Neuro: Level of Consciousness is awake, sg alert, obeys commands, Oriented to person, place, time, Nozzle Worker are weak bilaterally Moves all extremities. Speech is normal, Facial symmetry appears normal. 16:40 Reassessment: Patient appears in no apparent distress at this time. Patient states sg feeling better. Neuro: Level of Consciousness is awake, alert, obeys commands, Oriented to person, place, time, Nozzle Worker are weak bilaterally Moves all extremities. Speech is normal, Facial symmetry appears normal. 16:55 Reassessment: Patient appears in no apparent distress at this time. Patient states sg feeling better. Patient states symptoms have improved. Reassessment:. Neuro: Level of Consciousness is awake, alert, obeys commands, Oriented to person, place, time, Nozzle Worker are weak bilaterally Moves all extremities. Speech is normal, Facial symmetry appears normal. Derm: Skin is pink, warm \T\ dry. Skin temperature is warm. 17:05 Reassessment: Patient appears in no apparent distress at this time. bedside report sg given to mirtha Clemens to be transported to [facility] at the [facility] Patient states feeling better. Patient states symptoms have improved. 17:21 Reassessment: Lab values called to TEE Barriga for [facility] [place]. sg 17:25 Reassessment: an updated lab report has been faxed to receiving facility for sg continuance of care. Vital Signs: 15:00 BP 100 / 73; Pulse 106; Resp 20; Pulse Ox 96% on R/A; Weight 89.36 kg (R); Height 5 ft. rb1 4 in. (162.56 cm) (R); Pain 0/10; 15:35 BP 100 / 71; Pulse 96; Resp 20 S; Pulse Ox 96% on R/A; sg 15:37 Weight 92.99 kg (M); sg 15:55 BP 110 / 70; Pulse 94; Resp 18 S; Pain 10/10; sg 16:01 BP 96 / 70; Pulse 95 MON; Pain 9/10; sg 16:10 BP 105 / 84; Pulse 95 MON; Resp 17 S; Pulse Ox 98% on R/A; sg 16:25 BP 109 / 82; Pulse 95; Resp 17; Pulse Ox 95% on R/A; sg 16:40 BP 92 / 60; Pulse 96; Resp 17; Pulse Ox 90% on R/A; sg 16:55 BP 87 / 50; Pulse 99; Resp 19; Pulse Ox 100% on 2 lpm NC; sg 15:37 Body Mass Index 35.19 (92.99 kg, 162.56 cm) sg 16:40 pt placed to 02 via NC at 2 lpm, O2 reading increased to 98% sg NIH Stroke Scale Scores: 15:20 NIHSS Score: 3 cp 15:55 NIHSS Score: 2 ED Course: 14:56 Patient arrived in ED. ds1 14:59 Janice Kaba, RN is Primary Nurse. rb1 15:00 Arm band placed on right wrist. rb1 15:03 Dallas Trujillo PA is PHCP. cp 15:03 Dallas Arreola MD is Attending Physician. cp 15:13 Patient has correct armband on for positive identification. Placed in gown. Bed in low mh5 position. Call light in reach. Side rails up X2. Warm blanket given. manhole stripper on. Pulse ox on. NIBP on. 15:14 Triage completed. rb1 15:22 CT Stroke Brain w/o Contrast In Process Unspecified. EDMS 15:35 Primary Nurse role handed off by Janice Kaba, RN sg 15:35 Pancho Katz, RN is Primary Nurse. sg 15:35 EKG done, by lube technician. reviewed by Dallas GARCIA. dt2 15:56 X-ray completed. Portable x-ray completed in exam room. Patient tolerated procedure mh1 well. 15:58 Stroke CXR 1 View In Process Unspecified. EDMS 17:05 No provider procedures requiring assistance completed. Patient transferred, IV remains sg in place. intact, No redness/swelling at site. Administered Medications: 15:35 Drug: NS 0.9% 1000 ml Route: IV; Rate: 1 bolus; Site: right hand; sg 15:55 Drug: Alteplase {Co-Signature: hb (Layne Billingsley RN).} Route: IV Thrombolytics; Rate: sg calculated rate; 16:02 Drug: morphine 2 mg Route: IVP; Site: right wrist; sg 16:02 Drug: Zofran 4 mg Route: IVP; Site: right wrist; sg 16:24 Drug: foLIC Acid 1 mg Route: IVPB; Site: right wrist; hb 16:40 Follow up: Response: No adverse reaction; IV Status: Completed infusion sg 16:36 Drug: morphine 2 mg Route: IVP; Site: right wrist; hb 16:36 Drug: Magnesium Sulfate 1 grams Route: IVPB; Infused Over: 1 hrs; Site: right hb antecubital; 16:36 Drug: Potassium Chloride 20 mEq Route: IV; Rate: calculated rate; Site: right hb antecubital; Outcome: 16:10 ER care complete, transfer ordered by . cp 16:15 Transferred sg 16:15 Transferred Note: report given to Linus OLIVEIRA 17:10 Transferred by helicopter to [facility], Transfer form completed. 17:10 Condition: stable 17:10 Instructed on the need for transfer, safety practices. 17:11 Patient left the ED. NIH Stroke Scale - NIH Stroke Score Date: 12/07/2018 Time: 15:20 Total Score = 3 1a. Level of Consciousness (LOC) - 0(Alert) 1b. Level of Consciousness (LOC) (Year \T\ Age) - 0(Both) 1c. LOC Commands (Open \T\ Closes Eyes/Pattern Perforating Machine Operator) - 0(Both) 2. Best Gaze (Lateral Gaze Paresis) - 0(Normal) 3. Visual Field Loss - 0(No visual loss) 4. Facial Palsy - 1(Minor Paralysis) 5a. Left Arm: Motor (10-second hold) - 0(No drift) 5b. Right Arm: Motor (10-second hold) - 0(No drift) 6a. Left Leg: Motor (5-second hold - always test supine) - 0(No drift) 6b. Right Leg: Motor (5-second hold - always test supine) - 0(No drift) 7. Limb Ataxia (finger/nose \T\ heel/umanzor - test with eyes open) - 0(Absent) 8. Sensory Loss (pinprick arms/legs/face) - 1(Mild to moderate loss) 9. Best Language: Aphasia (description/naming/reading) - 0(No aphasia) 10. Dysarthria (speech clarity - read or repeat words) - 1(Mild to Moderate) 11. Extinction and Inattention (visual/tactile/auditory/spatial/personal) - 0(No abnormality) Initials: cp NIH Stroke Scale - NIH Stroke Score Date: 12/07/2018 Time: 15:55 Total Score = 2 1a. Level of Consciousness (LOC) - 0(Alert) 1b. Level of Consciousness (LOC) (Year \T\ Age) - 0(Both) 1c. LOC Commands (Open \T\ Closes Eyes/Pattern Perforating Machine Operator) - 0(Both) 2. Best Gaze (Lateral Gaze Paresis) - 0(Normal) 3. Visual Field Loss - 0(No visual loss) 4. Facial Palsy - 1(Minor Paralysis) 5a. Left Arm: Motor (10-second hold) - 0(No drift) 5b. Right Arm: Motor (10-second hold) - 0(No drift) 6a. Left Leg: Motor (5-second hold - always test supine) - 0(No drift) 6b. Right Leg: Motor (5-second hold - always test supine) - 0(No drift) 7. Limb Ataxia (finger/nose \T\ heel/umanzor - test with eyes open) - 0(Absent) 8. Sensory Loss (pinprick arms/legs/face) - 1(Mild to moderate loss) 9. Best Language: Aphasia (description/naming/reading) - 0(No aphasia) 10. Dysarthria (speech clarity - read or repeat words) - 0(Normal) 11. Extinction and Inattention (visual/tactile/auditory/spatial/personal) - 0(No abnormality) Initials: sg Signatures: Dispatcher [employer] Pancho Muhammad RN RN Tawana Bearden 1 Peggy Marquez ds1 Dallas Trujillo PA PA cp Barber, Rebecca, TEE RN rb1 Layne Billingsley RN RN Rohini Wen 5 Mere Do 2 Layne Billingsley RN Corrections: (The following items were deleted from the chart) 17:10 16:55 BP 87 / 50; Pulse 102bpm; Resp 19bpm; Pulse Ox 100% 2 lpm Nasal Cannula; sg sg
[2018-12-07] MEDS ORDERED: MORPHINE 4 MG/ML SYR ONE (16:15)
[2018-12-07] MEDS ORDERED: ONDANSETRON 4 MG/2 ML VIAL ONE (16:15)
[2018-12-07] MEDS ORDERED: FOLIC ACID 5 MG/ML VIAL ONE (16:23)
[2018-12-07] MEDS ORDERED: MAGNESIUM SULFATE 1 gm IVPB 1 GM/100 ML BAG IV ONE (16:43)
[2018-12-07] MEDS ORDERED: KCL 20 MEQ/100 mL IVPB 20 MEQ/100 ML BAG IV ONE (16:44)
[2018-12-07 17:17] LABS: Magnesium 0.8 mg/dL (1.8-2.4)
[2018-12-07 19:51] VITALS: BP 87/50; O2SAT 100
--- NOTE | 2018-12-08 07:18 | EKG ---
Test Date: 2018-12-07 Test Time: 15:28:57 Lining Marker: CY MEASUREMENT RESULTS: Intervals: Rate: 97 IL: 138 QRSD: 74 QT: 424 QTc: 538 [place]: P: -9 IL: 138 QRS: 6 T: 22 INTERPRETIVE STATEMENTS: Normal sinus rhythm Inferior infarct, age undetermined Cannot rule out Anterior infarct, age undetermined Prolonged QT Abnormal ECG Compared to ECG 10/16/2018 15:38:43 Prolonged QT interval now present Myocardial infarct finding still present Electronically Signed On 12-08-18 07:15:48 CDT by Doug Gold
== END 2018-12-07 17:11 | disposition short-term general hospital (02) ==
LOC: ER 14:54
DX: I63.9 Cerebral infarction, unspecified (principal); E87.6 Hypokalemia; E83.42 Hypomagnesemia; E11.9 Type 2 diabetes mellitus without complications; E78.00 Pure hypercholesterolemia, unspecified; I10 Essential (primary) hypertension; Z79.84 Long term (current) use of oral hypoglycemic drugs
CPT/HCPCS: 36415; 70450; 71045; 80048; 80076; 82550; 82553; 82962; 83735; 84484; 85025; 85610; 85730; 92977; 93005; 99285; J2405; J2997; J3475; J7030

== ENCOUNTER 2019-02-19 10:35 | Observation (INO) | payer SELFPAY ==
--- OUTSIDE RECORDS SUMMARY | 2019-02-19 10:39 | XMS REPORT | Clinical Summary ---
:1960 Author Organization [facility] Address [address] [place] [address] Care Team Providers Name Role Phone Unavailable Primary Care Provider Unavailable Allergies Active Allergy Reactions Severity Noted Date Comments Sulfamethoxazole-Trimethoprim Rash Low 12/07/2018 Medications Medication Sig Dispensed Refills Start End Status Date Date carvedilol (COREG) 12.5 Take 1 tablet 60 tablet 2 Active MG tabletIndications: (12.5 mg 9 hypertension total) by mouth 2 (two) times daily with breakfast and dinner. aspirin 81 MG chewable Take 1 tablet 360 tablet 0 Active tablet (81 mg total) 9 020 by mouth daily. multivitamin (THERAGRAN) Take 1 tablet 360 tablet 0 Active tablet by mouth 9 020 daily. ranitidine (ZANTAC) 150 Take 150 mg 0 Active MG tablet by mouth 2 (two) times daily. omeprazole (PRILOSEC) 40 Take 40 mg by 0 Active MG capsule mouth daily. potassium gluconate 550 Take by 0 Active mg (90 mg) Tab mouth. amLODIPine (NORVASC) 10 Take 1 tablet 30 tablet 2 Active MG tablet (10 mg total) 9 by mouth daily. atorvastatin (LIPITOR) Take 1 tablet 30 tablet 2 Active 40 MG tablet (40 mg total) 9 by mouth nightly. glimepiride (AMARYL) 1 Take 1 tablet 30 tablet 2 Active MG tablet (1 mg total) 9 by mouth every morning before breakfast. carvedilol (COREG) 6.25 Take 6.25 mg 0 Discontinued MG tabletIndications: by mouth 2 019 hypertension (two) times daily with breakfast and dinner. lisinopril Take 20 mg by 0 Discontinued (PRINIVIL,ZESTRIL) 20 MG mouth daily. 019 tablet simvastatin (ZOCOR) 20 Take 20 mg by 0 Discontinued MG tabletIndications: mouth 019 hypercholesterolemia nightly. metFORMIN (GLUCOPHAGE) Take 500 mg 0 Discontinued 500 MG tablet by mouth 2 019 (two) times daily with breakfast and dinner. levothyroxine 112 mcg Take 112 mcg 0 Discontinued Cap by mouth 019 daily. lisinopril Take 1 tablet 30 tablet 2 Discontinued (PRINIVIL,ZESTRIL) 20 MG (20 mg total) 9 019 tablet by mouth daily. metFORMIN (GLUCOPHAGE) Take 1 tablet 60 tablet 2 Discontinued 500 MG tablet (500 mg 9 019 total) by mouth 2 (two) times daily with breakfast and dinner. simvastatin (ZOCOR) 20 Take 2 60 tablet 2 Discontinued MG tabletIndications: tablets (40 9 019 hypercholesterolemia mg total) by mouth nightly. traZODone (DESYREL) 100 Take 1 tablet 30 tablet 2 Discontinued MG tablet (100 mg 9 019 total) by mouth nightly for 90 days. nicotine (NICODERM CQ) Place 1 patch 21 patch 0 14 mg/24 hr patch onto the skin 9 019 daily for 21 days. carvedilol (COREG) 12.5 Take 12.5 mg 0 Discontinued MG tablet by mouth 2 019 (two) times daily with breakfast and dinner. amLODIPine (NORVASC) 10 Take 10 mg by 0 Discontinued MG tablet mouth daily. 019 atorvastatin (LIPITOR) Take 40 mg by 0 Discontinued 40 MG tablet mouth daily. 019 glimepiride (AMARYL) 1 Take 1 mg by 0 Discontinued MG tablet mouth every 019 morning before breakfast. traZODone (DESYREL) 100 Take 2 60 tablet 2 MG tablet tablets (200 9 019 mg total) by mouth nightly for 30 days. Active Problems Problem Noted Date Type 2 diabetes mellitus 12/08/2018 Hypokalemia 12/08/2018 Hypomagnesemia 12/08/2018 Alcohol abuse 12/08/2018 Essential hypertension 12/08/2018 Stroke 12/07/2018 Status post administration of tPA (rtPA) in a different facility within 2018 the last 24 hours prior to admission to current facility Encounters Date Type Specialty Care Team Description 12/10/2018 Orders Only General Internal Medicine 12/07/2018 - Hospital Encounter Intensive Care Altaf Oconnor Cerebrovascular accident (CVA), unspecified mechanism (HCC); 12/11/2018 MD Curtis Alcohol abuse 12/07/2018 Travel after 02/18/2018 Social History Tobacco Use Types Packs/Day Years Used Date Current Some Day Smoker 1 10 Smokeless Tobacco: Never Used Tobacco Cessation: Ready to Quit: Yes; Counseling Given: Yes Comments: 1 pack every 2 days for the last 10 years Alcohol Use Drinks/Week oz/Week Comments Yes drinks occcasionally run, last drank 12/06/18 Sex Assigned at Date Recorded Not on file Job Start Date Occupation Industry Not on file Not on file Not on file Travel History Travel Start Travel End No recent travel history available. Last Filed Vital Signs Vital Sign Reading Time Taken Blood Pressure 138/107 12/11/2018 2:00 PM CDT Pulse 101 12/11/2018 2:00 PM CDT Temperature 36.9 C (98.5 F) 12/11/2018 12:00 PM CDT Respiratory Rate 16 12/11/2018 2:00 PM CDT Oxygen Saturation 96% 12/11/2018 2:00 PM CDT Inhaled Oxygen Concentration - - Weight 81 kg (178 lb 9.2 oz) 12/07/2018 6:00 PM CDT Height 162.6 cm (5' 4") 12/07/2018 6:00 PM CDT Body Mass Index 30.65 12/07/2018 6:00 PM CDT Plan of Treatment Not on file Procedures Procedure Name Priority Date/Time Associated Comments Diagnosis REPORT OF PROCEDURE - 12/13/2018 10:30 ENDOSCOPY SCAN AM CDT RHYTHM STRIP - SCAN 12/13/2018 10:30 AM CDT CBC W/PLT COUNT & AUTO Routine 12/11/2018 3:46 Results for this DIFFERENTIAL AM CDT procedure are in the results section. BASIC METABOLIC PANEL Routine 12/11/2018 3:46 Results for this (7) AM CDT procedure are in the results section. CBC W/PLT COUNT & AUTO Routine 12/11/2018 3:46 Results for this DIFFERENTIAL AM CDT procedure are in the results section. POCT-GLUCOSE METER Routine 12/10/2018 9:56 Results for this PM CDT procedure are in the results section. POCT-GLUCOSE METER Routine 12/10/2018 4:52 Results for this PM CDT procedure are in the results section. POCT-GLUCOSE METER Routine 12/10/2018 11:58 Results for this AM CDT procedure are in the results section. ECG 12-LEAD STAT 12/10/2018 10:59 Results for this AM CDT procedure are in the results section. POCT-GLUCOSE METER Routine 12/10/2018 8:21 Results for this AM CDT procedure are in the results section. CBC W/PLT COUNT & AUTO Routine 12/10/2018 4:30 Results for this DIFFERENTIAL AM CDT procedure are in the results section. PHOSPHORUS Routine 12/10/2018 4:30 Results for this AM CDT procedure are in the results section. MAGNESIUM Routine 12/10/2018 4:30 Results for this AM CDT procedure are in the results section. COMPREHENSIVE Routine 12/10/2018 4:30 Results for this METABOLIC PANEL AM CDT procedure are in the results section. CBC W/PLT COUNT & AUTO Routine 12/10/2018 4:30 Results for this DIFFERENTIAL AM CDT procedure are in the results section. POCT-GLUCOSE METER Routine 12/09/2018 10:41 Results for this PM CDT procedure are in the results section. POCT-GLUCOSE METER Routine 12/09/2018 6:14 Results for this PM CDT procedure are in the results section. POTASSIUM Routine 12/09/2018 3:37 Results for this PM CDT procedure are in the results section. MAGNESIUM Routine 12/09/2018 3:37 Results for this PM CDT procedure are in the results section. POCT-GLUCOSE METER Routine 12/09/2018 12:21 Results for this PM CDT procedure are in the results section. POCT-GLUCOSE METER Routine 12/09/2018 9:21 Results for this AM CDT procedure are in the results section. CBC W/PLT COUNT & AUTO Routine 12/09/2018 5:06 Results for this DIFFERENTIAL AM CDT procedure are in the results section. MAGNESIUM Routine 12/09/2018 5:06 Results for this AM CDT procedure are in the results section. BASIC METABOLIC PANEL Routine 12/09/2018 5:06 Results for this (7) AM CDT procedure are in the results section. CBC W/PLT COUNT & AUTO Routine 12/09/2018 5:06 Results for this DIFFERENTIAL AM CDT procedure are in the results section. POCT-GLUCOSE METER Routine 12/08/2018 10:03 Results for this PM CDT procedure are in the results section. POCT-GLUCOSE METER Routine 12/08/2018 6:59 Results for this PM CDT procedure are in the results section. MAGNESIUM Routine 12/08/2018 4:49 Results for this PM CDT procedure are in the results section. POTASSIUM Routine 12/08/2018 4:49 Results for this PM CDT procedure are in the results section. POTASSIUM Routine 12/08/2018 10:02 Results for this AM CDT procedure are in the results section. MAGNESIUM JUANJO 12/08/2018 10:02 Results for this AM CDT procedure are in the results section. TROPONIN I Routine 12/08/2018 10:02 Results for this AM CDT procedure are in the results section. MR MRA HEAD WITHOUT Routine 12/08/2018 10:02 Results for this CONTRAST AM CDT procedure are in the results section. MR MRA NECK WITHOUT IV Routine 12/08/2018 10:02 Results for this CONTRAST AM CDT procedure are in the results section. MR BRAIN WITHOUT IV Routine 12/08/2018 10:02 Results for this CONTRAST AM CDT procedure are in the results section. POTASSIUM JUANJO 12/08/2018 5:31 Results for this AM CDT procedure are in the results section. CBC W/PLT COUNT & AUTO Routine 12/08/2018 1:23 Results for this DIFFERENTIAL AM CDT procedure are in the results section. BASIC METABOLIC PANEL Routine 12/08/2018 1:23 Results for this (7) AM CDT procedure are in the results section. HIV-1 ANTIGEN WITH Routine 12/08/2018 1:23 Results for this HIV-1/2 ANTIBODY AM CDT procedure are in the results section. VITAMIN B12 AND FOLATE Routine 12/08/2018 1:23 Results for this AM CDT procedure are in the results section. TSH/FREE T4 IF Routine 12/08/2018 1:23 Results for this INDICATED AM CDT procedure are in the results section. HEMOGLOBIN A1C Routine 12/08/2018 1:23 Results for this AM CDT procedure are in the results section. RPR Routine 12/08/2018 1:23 Results for this AM CDT procedure are in the results section. LIPID PANEL Routine 12/08/2018 1:23 Results for this AM CDT procedure are in the results section. CBC W/PLT COUNT & AUTO Routine 12/08/2018 1:23 Results for this DIFFERENTIAL AM CDT procedure are in the results section. MAGNESIUM JUANJO 12/08/2018 1:23 Results for this AM CDT procedure are in the results section. BASIC METABOLIC PANEL Routine 12/07/2018 10:16 Results for this (7) PM CDT procedure are in the results section. TROPONIN I Routine 12/07/2018 10:16 Results for this PM CDT procedure are in the results section. ETHANOL Routine 12/07/2018 10:16 Results for this PM CDT procedure are in the results section. URINALYSIS MICROSCOPIC Routine 12/07/2018 10:11 Results for this PM CDT procedure are in the results section. DRUG SCREEN, URINE, Routine 12/07/2018 10:11 COMPREHENSIVE PM CDT URINALYSIS WITH Routine 12/07/2018 10:11 Results for this MICROSCOPIC IF PM CDT procedure are in INDICATED the results section. ECG 12-LEAD STAT 12/07/2018 8:29 Results for this PM CDT procedure are in the results section. PHOSPHORUS STAT 12/07/2018 6:26 Results for this PM CDT procedure are in the results section. MAGNESIUM STAT 12/07/2018 6:26 Results for this PM CDT procedure are in the results section. BASIC METABOLIC PANEL STAT 12/07/2018 6:26 Results for this (7) PM CDT procedure are in the results section. HEPATIC FUNCTION PANEL Routine 12/07/2018 6:26 Results for this PM CDT procedure are in the results section. after 02/18/2018 Results EKG-SCANNED (12/13/2018 10:30 AM CDT) Narrative Performed At RHYTHM STRIP - SCAN (12/13/2018 10:30 AM CDT) Narrative Performed At CBC with platelet count + automated diff (12/11/2018 3:46 AM CDT)Only the most recent of4 resultswithin the time period is included. WBC 5.6 3.5 - 10.5 K/L [facility] RBC 2.98 (L) 3.93 - 5.22 M/L [facility] Hemoglobin 10.1 (L) 11.2 - 15.7 GM/DL [facility] Hematocrit 30.4 (L) 34.1 - 44.9 % [facility] MCV 102.0 (H) 79.4 - 94.8 fL [facility] MCH 33.9 (H) 25.6 - 32.2 pg [facility] MCHC 33.2 32.2 - 35.5 GM/DL [facility] RDW 12.6 11.7 - 14.4 % [facility] Platelets 318 150 - 450 K/CU MM [facility] MPV 9.9 9.4 - 12.3 fL [facility] nRBC 0 0 - 0 /100 WBC [facility] % Neutros 61 % [facility] % Lymphs 27 % [facility] % Monos 9 % [facility] % Eos 2 % [facility] [place] % Baso 0 % [facility] # Neutros 3.40 1.56 - 6.13 K/L [facility] # Lymphs 1.50 1.18 - 3.74 K/L [facility] # Monos 0.51 (H) 0.24 - 0.36 K/L [facility] # Eos 0.12 0.04 - 0.36 K/L [facility] # Baso 0.02 0.01 - 0.08 K/L [facility] Immature 0 0 - 1 % [facility] Specimen Blood Performing Organization Address City/[facility]/Zipcode Phone Number [address] [address] [place] Basic Metabolic Panel (12/11/2018 3:46 AM CDT)Only the most recent of5 resultswithin the time period is included. Sodium 135 (L) 136 - 145 meq/L [facility] Potassium 3.9 3.5 - 5.1 meq/L [facility] Chloride 101 98 - 107 meq/L [facility] CO2 25 22 - 29 meq/L [facility] BUN 11 7 - 21 mg/dL [facility] Creatinine 0.84 0.57 - 1.25 mg/dL [facility] Glucose 157 (H) 70 - 105 mg/dL [facility] Calcium 9.0 8.4 - 10.2 mg/dL [facility] EGFR 69Comment: ESTIMATED GFR IS mL/min/1.[address] [facility] NOT ACCURATE CREATININE [facility] CLEARANCE IN PREDICTING GLOMERULAR FILTRATION RATE. ESTIMATED GFR IS NOT APPLICABLE FOR DIALYSIS PATIENTS. Specimen Blood Performing Organization Address [facility] Phone Number [address] [address] [place] POC-Glucose meter (12/10/2018 9:56 PM CDT)Only the most recent of10 resultswithin the time period is included. POC-Glucose Meter 148 (H)Comment: TESTED AT 70 - 110 mg/dL [address] [address] Specimen Blood Performing Organization Address City/[facility]/Zipcode Phone Number [address] [address] [phone] [place] ECG 12 lead (12/10/2018 10:59 AM CDT)Only the most recent of2 resultswithin the time period is included. Specimen Narrative Performed At Ventricular Rate 89 BPM GE MUSE Atrial Rate 89 BPM P-R Interval 166 ms QRS Duration 70 ms Q-T Interval 376 ms QTC Calculation(Bazett) 457 ms P [place] 40 degrees R [place] -5 degrees T [place] 15 degrees Normal sinus rhythm Poor R wave progression Cannot rule out Anterior infarct , age undetermined Prolonged QT Abnormal ECG When compared with ECG of 07-DEC-2018 20:29, QT has shortened Confirmed by Bernarda RICHARDS, BRISA ([id number]) on 12/13/2018 7:23:26 AM Procedure Note Interface, External Ris In - 12/13/2018 7:23 AM CDT Ventricular Rate 89 BPM Atrial Rate 89 BPM P-R Interval 166 ms QRS Duration 70 ms Q-T Interval 376 ms QTC Calculation(Bazett) 457 ms P [place] 40 degrees R [place] -5 degrees T [place] 15 degrees Normal sinus rhythm Poor R wave progression Cannot rule out Anterior infarct , age undetermined Prolonged QT Abnormal ECG When compared with ECG of 07-DEC-2018 20:29, QT has shortened Confirmed by Bernarda RICHARDS, BRISA ([id number]) on 12/13/2018 7:23:26 AM Performing Organization Address City/State/Zipcode Phone Number GE MUSE Phosphorus (12/10/2018 4:30 AM CDT)Only the most recent of2 resultswithin the time period is included. Phosphorus 2.9 2.3 - 4.7 mg/dL [facility] Specimen Blood Performing Organization Address City/[facility] Phone Number [address] [address] CENTER Magnesium (12/10/2018 4:30 AM CDT)Only the most recent of7 resultswithin the time period is included. Magnesium 1.6 1.6 - 2.6 mg/dL [facility] Specimen Blood Performing Organization Address [facility]/Zipcode Phone Number [address] [address] [place] Comprehensive metabolic panel (12/10/2018 4:30 AM CDT) Protein, Total 6.3 6.0 - 8.3 gm/dL [facility] Albumin 3.3 (L) 3.5 - 5.0 g/dL [facility] Alkaline Phosphatase 84 40 - 150 U/L [facility] Total Bilirubin 0.4 0.2 - 1.2 mg/dL [facility] Sodium 137 136 - 145 meq/L [facility] Potassium 3.9 3.5 - 5.1 meq/L [facility] Chloride 98 98 - 107 meq/L [facility] CO2 31 (H) 22 - 29 meq/L [facility] BUN 10 7 - 21 mg/dL [facility] Creatinine 0.79 0.57 - 1.25 mg/dL [facility] Glucose 161 (H) 70 - 105 mg/dL [facility] Calcium 9.2 8.4 - 10.2 mg/dL [facility] AST 38 (H) 5 - 34 U/L [facility] ALT 23 6 - 55 U/L [facility] EGFR 74Comment: ESTIMATED GFR mL/min/1.73 sq m [facility] IS NOT ACCURATE [facility] CREATININE CLEARANCE IN PREDICTING GLOMERULAR FILTRATION RATE. ESTIMATED GFR IS NOT APPLICABLE FOR DIALYSIS PATIENTS. Specimen Blood Performing Organization Address City/[facility]/Zipcode Phone Number [address] [address] [phone] CENTER Potassium (12/09/2018 3:37 PM CDT)Only the most recent of4 resultswithin the time period is included. Potassium 4.1 3.5 - 5.1 meq/L [facility] Specimen Blood Performing Organization Address City/[facility]/Zipcode Phone Number [place] [phone] [place] [address] CENTER Troponin I (12/08/2018 10:02 AM CDT)Only the most recent of2 resultswithin the time period is included. Troponin I 0.01 0.00 - 0.03 ng/mL [facility] Specimen Blood Narrative Performed At Troponin I (TnI) levels must be interpreted [facility] in the context of the presenting symptoms and the clinical findings. Elevated TnI levels indicate myocardial damage, but are not specific for ischemic heart disease. Elevated TnI levels are seen in patients with other cardiac conditions (including myocarditis and congestive heart failure), and slight TnI elevations occur in patients with other conditions, including sepsis, renal failure, acidosis, acute neurological disease, and persistent tachyarrhythmia. Performing Organization Address City/State/Zipcode Phone Number [facility] [address] [place] [address] [phone] CENTER MR brain without IV contrast (12/08/2018 10:02 AM CDT) Specimen Narrative Performed At FINAL REPORT [facility] MR, BRAIN, WITHOUT CONTRAST, MR, MRA, BRAIN, WITHOUT CONTRAST, MR, MRA, NECK, WITHOUT IV CONTRAST INDICATION: Stroke Stroke TECHNIQUE: Multiplanar, multisequence MR images of the brain.3-D time of flight MRA of the cranial and cervical circulation. 2-D time of flight MRA of the neck. 3D MIP angiographic post-processing was performed. Stenosis evaluation utilized NASCET criteria. COMPARISON: Noncontrast brain CT of the same date FINDINGS: MRI BRAIN: Apparent DTI hyperintensity within the right pontomedullary junction (axial DTI image 48) is present with decreased signal on ADC. No definite FLAIR abnormality, although, this may conceivably have been excluded due to slice selection. The remainder of the brain parenchyma is normal in morphology. Midline structures are normally developed.No abnormal susceptibility. Scattered T2/FLAIR hyperintense foci within the periventricular and subcortical white matter are nonspecific, however, statistically represent chronic microvascular ischemic changes. No hydrocephalus. Orbits are within normal limits. No obstructive paranasal sinus disease. Additional findings: Bilateral T2 hyperintense parotid lesions, with the right measuring 2 cm and the right measuring 1.8 cm. MRA BRAIN: Internal carotid arteries: Normal flow related enhancementwithout flow-limiting stenosis Middle cerebral arteries: Normal flow related enhancement within the bilateral MCA M1-M2 segments without flow limiting stenosis Anterior cerebral arteries: Normal flow-related enhancement within the bilateral ANGELICA A1-A2 segments without flow limiting stenosis Basilar system: Normal flow-related enhancement within the bilateral V4 segments and the basilar arterywithout flow-limiting stenosis Posterior cerebral arteries: Normal flow-related enhancement within the bilateral [employer] P1-P2 segmentswithout flow-limiting stenosis. 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 Additional findings: None. MRA NECK: Common carotid arteries: Unremarkable. Bifurcations: No flow-limiting stenosis. Cervical internal carotid arteries: No flow limiting stenosis. Vertebral arteries: Origins are not well-seen. No flow limiting stenosis within the visualized cervical vertebral arterial segments. Limited assessment of the V3 segment secondary to noncontrast technique. IMPRESSION: Tiny focus of restricted diffusion within the right pontomedullary junction concerning for subcentimeter acute infarct. No flow limiting stenosis in the major branch vessels of the cervical or cranial circulation. Bilateral T2 hyperintense parotid lesions as per above. Differential considerations include benign parotid lesions ( Warthin's tumors versus pleomorphic adenoma), although, correlation with nonemergent outpatient tissue sampling is recommended to exclude primary intraparotid malignancy and/or metastatic disease (which cannot be excluded by imaging). Signed: Caty Barger MD Report Verified Date/Time:12/08/2018 19:23:05 Reading Location: [address] Neuro Reading Room Procedure Note Interface, External Ris In - 12/09/2018 10:05 AM CDT FINAL REPORT MR, BRAIN, WITHOUT CONTRAST, MR, MRA, BRAIN, WITHOUT CONTRAST, MR, MRA, NECK, WITHOUT IV CONTRAST INDICATION: Stroke Stroke TECHNIQUE: Multiplanar, multisequence MR images of the brain. 3-D time of flight MRA of the cranial and cervical circulation. 2-D time of flight MRA of the neck. 3D MIP angiographic post-processing was performed. Stenosis evaluation utilized NASCET criteria. COMPARISON: Noncontrast brain CT of the same date FINDINGS: MRI BRAIN: Apparent DTI hyperintensity within the right pontomedullary junction (axial DTI image 48) is present with decreased signal on ADC. No definite FLAIR abnormality, although, this may conceivably have been excluded due to slice selection. The remainder of the brain parenchyma is normal in morphology. Midline structures are normally developed. No abnormal susceptibility. Scattered T2/FLAIR hyperintense foci within the periventricular and subcortical white matter are nonspecific, however, statistically represent chronic microvascular ischemic changes. No hydrocephalus. Orbits are within normal limits. No obstructive paranasal sinus disease. Additional findings: Bilateral T2 hyperintense parotid lesions, with the right measuring 2 cm and the right measuring 1.8 cm. MRA BRAIN: Internal carotid arteries: Normal flow related enhancement without flow-limiting stenosis Middle cerebral arteries: Normal flow related enhancement within the bilateral MCA M1-M2 segments without flow limiting stenosis Anterior cerebral arteries: Normal flow-related enhancement within the bilateral ANGELICA A1-A2 segments without flow limiting stenosis Basilar system: Normal flow-related enhancement within the bilateral V4 segments and the basilar artery without flow-limiting stenosis Posterior cerebral arteries: Normal flow-related enhancement within the bilateral G[employer]JUSTER P1-P2 segments without flow-limiting stenosis. 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 Additional findings: None. MRA NECK: Common carotid arteries: Unremarkable. Bifurcations: No flow-limiting stenosis. Cervical internal carotid arteries: No flow limiting stenosis. Vertebral arteries: Origins are not well-seen. No flow limiting stenosis within the visualized cervical vertebral arterial segments. Limited assessment of the V3 segment secondary to noncontrast technique. IMPRESSION: Tiny focus of restricted diffusion within the right pontomedullary junction concerning for subcentimeter acute infarct. No flow limiting stenosis in the major branch vessels of the cervical or cranial circulation. Bilateral T2 hyperintense parotid lesions as per above. Differential considerations include benign parotid lesions ( Warthin's tumors versus pleomorphic adenoma), although, correlation with nonemergent outpatient tissue sampling is recommended to exclude primary intraparotid malignancy and/or metastatic disease (which cannot be excluded by imaging). Signed: Caty Barger MD Report Verified Date/Time: 12/08/2018 19:23:05 Reading Location: [address] Neuro Reading Room Performing Organization Address City/State/Zipcode Phone Number [facility] MR MRA neck without contrast (12/08/2018 10:02 AM CDT) Specimen Narrative Performed At FINAL REPORT [facility] MR, BRAIN, WITHOUT CONTRAST, MR, MRA, BRAIN, WITHOUT CONTRAST, MR, MRA, NECK, WITHOUT IV CONTRAST INDICATION: Stroke Stroke TECHNIQUE: Multiplanar, multisequence MR images of the brain.3-D time of flight MRA of the cranial and cervical circulation. 2-D time of flight MRA of the neck. 3D MIP angiographic post-processing was performed. Stenosis evaluation utilized NASCET criteria. COMPARISON: Noncontrast brain CT of the same date FINDINGS: MRI BRAIN: Apparent DTI hyperintensity within the right pontomedullary junction (axial DTI image 48) is present with decreased signal on ADC. No definite FLAIR abnormality, although, this may conceivably have been excluded due to slice selection. The remainder of the brain parenchyma is normal in morphology. Midline structures are normally developed.No abnormal susceptibility. Scattered T2/FLAIR hyperintense foci within the periventricular and subcortical white matter are nonspecific, however, statistically represent chronic microvascular ischemic changes. No hydrocephalus. Orbits are within normal limits. No obstructive paranasal sinus disease. Additional findings: Bilateral T2 hyperintense parotid lesions, with the right measuring 2 cm and the right measuring 1.8 cm. MRA BRAIN: Internal carotid arteries: Normal flow related enhancementwithout flow-limiting stenosis Middle cerebral arteries: Normal flow related enhancement within the bilateral MCA M1-M2 segments without flow limiting stenosis Anterior cerebral arteries: Normal flow-related enhancement within the bilateral ANGELICA A1-A2 segments without flow limiting stenosis Basilar system: Normal flow-related enhancement within the bilateral V4 segments and the basilar arterywithout flow-limiting stenosis Posterior cerebral arteries: Normal flow-related enhancement within the bilateral G[employer] ADJUSTER P1-P2 segmentswithout flow-limiting stenosis. 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 Additional findings: None. MRA NECK: Common carotid arteries: Unremarkable. Bifurcations: No flow-limiting stenosis. Cervical internal carotid arteries: No flow limiting stenosis. Vertebral arteries: Origins are not well-seen. No flow limiting stenosis within the visualized cervical vertebral arterial segments. Limited assessment of the V3 segment secondary to noncontrast technique. IMPRESSION: Tiny focus of restricted diffusion within the right pontomedullary junction concerning for subcentimeter acute infarct. No flow limiting stenosis in the major branch vessels of the cervical or cranial circulation. Bilateral T2 hyperintense parotid lesions as per above. Differential considerations include benign parotid lesions ( Warthin's tumors versus pleomorphic adenoma), although, correlation with nonemergent outpatient tissue sampling is recommended to exclude primary intraparotid malignancy and/or metastatic disease (which cannot be excluded by imaging). Signed: Caty Barger MD Report Verified Date/Time:12/08/2018 19:23:05 Reading Location: [address] Neuro Reading Room Procedure Note Interface, External Ris In - 12/09/2018 10:05 AM CDT FINAL REPORT MR, BRAIN, WITHOUT CONTRAST, MR, MRA, BRAIN, WITHOUT CONTRAST, MR, MRA, NECK, WITHOUT IV CONTRAST INDICATION: Stroke Stroke TECHNIQUE: Multiplanar, multisequence MR images of the brain. 3-D time of flight MRA of the cranial and cervical circulation. 2-D time of flight MRA of the neck. 3D MIP angiographic post-processing was performed. Stenosis evaluation utilized NASCET criteria. COMPARISON: Noncontrast brain CT of the same date FINDINGS: MRI BRAIN: Apparent DTI hyperintensity within the right pontomedullary junction (axial DTI image 48) is present with decreased signal on ADC. No definite FLAIR abnormality, although, this may conceivably have been excluded due to slice selection. The remainder of the brain parenchyma is normal in morphology. Midline structures are normally developed. No abnormal susceptibility. Scattered T2/FLAIR hyperintense foci within the periventricular and subcortical white matter are nonspecific, however, statistically represent chronic microvascular ischemic changes. No hydrocephalus. Orbits are within normal limits. No obstructive paranasal sinus disease. Additional findings: Bilateral T2 hyperintense parotid lesions, with the right measuring 2 cm and the right measuring 1.8 cm. MRA BRAIN: Internal carotid arteries: Normal flow related enhancement without flow-limiting stenosis Middle cerebral arteries: Normal flow related enhancement within the bilateral MCA M1-M2 segments without flow limiting stenosis Anterior cerebral arteries: Normal flow-related enhancement within the bilateral ANGELICA A1-A2 segments without flow limiting stenosis Basilar system: Normal flow-related enhancement within the bilateral V4 segments and the basilar artery without flow-limiting stenosis Posterior cerebral arteries: Normal flow-related enhancement within the bilateral G[employer] ADJUSTER P1-P2 segments without flow-limiting stenosis. 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 Additional findings: None. MRA NECK: Common carotid arteries: Unremarkable. Bifurcations: No flow-limiting stenosis. Cervical internal carotid arteries: No flow limiting stenosis. Vertebral arteries: Origins are not well-seen. No flow limiting stenosis within the visualized cervical vertebral arterial segments. Limited assessment of the V3 segment secondary to noncontrast technique. IMPRESSION: Tiny focus of restricted diffusion within the right pontomedullary junction concerning for subcentimeter acute infarct. No flow limiting stenosis in the major branch vessels of the cervical or cranial circulation. Bilateral T2 hyperintense parotid lesions as per above. Differential considerations include benign parotid lesions ( Warthin's tumors versus pleomorphic adenoma), although, correlation with nonemergent outpatient tissue sampling is recommended to exclude primary intraparotid malignancy and/or metastatic disease (which cannot be excluded by imaging). Signed: Caty Barger MD Report Verified Date/Time: 12/08/2018 19:23:05 Reading Location: [facility] B1 [id number] Neuro Reading Room Performing Organization Address City/State/Zipcode Phone Number [facility] MR MRA head without contrast (12/08/2018 10:02 AM CDT) Specimen Narrative Performed At FINAL REPORT [facility] MR, BRAIN, WITHOUT CONTRAST, MR, MRA, BRAIN, WITHOUT CONTRAST, MR, MRA, NECK, WITHOUT IV CONTRAST INDICATION: Stroke Stroke TECHNIQUE: Multiplanar, multisequence MR images of the brain.3-D time of flight MRA of the cranial and cervical circulation. 2-D time of flight MRA of the neck. 3D MIP angiographic post-processing was performed. Stenosis evaluation utilized NASCET criteria. COMPARISON: Noncontrast brain CT of the same date FINDINGS: MRI BRAIN: Apparent DTI hyperintensity within the right pontomedullary junction (axial DTI image 48) is present with decreased signal on ADC. No definite FLAIR abnormality, although, this may conceivably have been excluded due to slice selection. The remainder of the brain parenchyma is normal in morphology. Midline structures are normally developed.No abnormal susceptibility. Scattered T2/FLAIR hyperintense foci within the periventricular and subcortical white matter are nonspecific, however, statistically represent chronic microvascular ischemic changes. No hydrocephalus. Orbits are within normal limits. No obstructive paranasal sinus disease. Additional findings: Bilateral T2 hyperintense parotid lesions, with the right measuring 2 cm and the right measuring 1.8 cm. MRA BRAIN: Internal carotid arteries: Normal flow related enhancementwithout flow-limiting stenosis Middle cerebral arteries: Normal flow related enhancement within the bilateral MCA M1-M2 segments without flow limiting stenosis Anterior cerebral arteries: Normal flow-related enhancement within the bilateral ANGELICA A1-A2 segments without flow limiting stenosis Basilar system: Normal flow-related enhancement within the bilateral V4 segments and the basilar arterywithout flow-limiting stenosis Posterior cerebral arteries: Normal flow-related enhancement within the bilateral G[employer] ADJUSTER P1-P2 segmentswithout flow-limiting stenosis. 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 Additional findings: None. MRA NECK: Common carotid arteries: Unremarkable. Bifurcations: No flow-limiting stenosis. Cervical internal carotid arteries: No flow limiting stenosis. Vertebral arteries: Origins are not well-seen. No flow limiting stenosis within the visualized cervical vertebral arterial segments. Limited assessment of the V3 segment secondary to noncontrast technique. IMPRESSION: Tiny focus of restricted diffusion within the right pontomedullary junction concerning for subcentimeter acute infarct. No flow limiting stenosis in the major branch vessels of the cervical or cranial circulation. Bilateral T2 hyperintense parotid lesions as per above. Differential considerations include benign parotid lesions ( Warthin's tumors versus pleomorphic adenoma), although, correlation with nonemergent outpatient tissue sampling is recommended to exclude primary intraparotid malignancy and/or metastatic disease (which cannot be excluded by imaging). Signed: Caty Barger MD Report Verified Date/Time:12/08/2018 19:23:05 Reading Location: [address] Neuro Reading Room Procedure Note Interface, External Ris In - 12/09/2018 10:05 AM CDT FINAL REPORT MR, BRAIN, WITHOUT CONTRAST, MR, MRA, BRAIN, WITHOUT CONTRAST, MR, MRA, NECK, WITHOUT IV CONTRAST INDICATION: Stroke Stroke TECHNIQUE: Multiplanar, multisequence MR images of the brain. 3-D time of flight MRA of the cranial and cervical circulation. 2-D time of flight MRA of the neck. 3D MIP angiographic post-processing was performed. Stenosis evaluation utilized NASCET criteria. COMPARISON: Noncontrast brain CT of the same date FINDINGS: MRI BRAIN: Apparent DTI hyperintensity within the right pontomedullary junction (axial DTI image 48) is present with decreased signal on ADC. No definite FLAIR abnormality, although, this may conceivably have been excluded due to slice selection. The remainder of the brain parenchyma is normal in morphology. Midline structures are normally developed. No abnormal susceptibility. Scattered T2/FLAIR hyperintense foci within the periventricular and subcortical white matter are nonspecific, however, statistically represent chronic microvascular ischemic changes. No hydrocephalus. Orbits are within normal limits. No obstructive paranasal sinus disease. Additional findings: Bilateral T2 hyperintense parotid lesions, with the right measuring 2 cm and the right measuring 1.8 cm. MRA BRAIN: Internal carotid arteries: Normal flow related enhancement without flow-limiting stenosis Middle cerebral arteries: Normal flow related enhancement within the bilateral MCA M1-M2 segments without flow limiting stenosis Anterior cerebral arteries: Normal flow-related enhancement within the bilateral ANGELICA A1-A2 segments without flow limiting stenosis Basilar system: Normal flow-related enhancement within the bilateral V4 segments and the basilar artery without flow-limiting stenosis Posterior cerebral arteries: Normal flow-related enhancement within the bilateral G[employer] ADJUSTER P1-P2 segments without flow-limiting stenosis. 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 Additional findings: None. MRA NECK: Common carotid arteries: Unremarkable. Bifurcations: No flow-limiting stenosis. Cervical internal carotid arteries: No flow limiting stenosis. Vertebral arteries: Origins are not well-seen. No flow limiting stenosis within the visualized cervical vertebral arterial segments. Limited assessment of the V3 segment secondary to noncontrast technique. IMPRESSION: Tiny focus of restricted diffusion within the right pontomedullary junction concerning for subcentimeter acute infarct. No flow limiting stenosis in the major branch vessels of the cervical or cranial circulation. Bilateral T2 hyperintense parotid lesions as per above. Differential considerations include benign parotid lesions ( Warthin's tumors versus pleomorphic adenoma), although, correlation with nonemergent outpatient tissue sampling is recommended to exclude primary intraparotid malignancy and/or metastatic disease (which cannot be excluded by imaging). Signed: Caty Barger MD Report Verified Date/Time: 12/08/2018 19:23:05 Reading Location: [facility] Neuro Reading Room Performing Organization Address City/State/Zipcode Phone Number [facility] Vitamin B12 and Folate (12/08/2018 1:23 AM CDT) Vitamin B12 1,168 (H) 213 - 816 pg/mL [facility] Folate >40.0 >=7.0 ng/mL [facility] Specimen Blood Performing Organization Address City/[facility] Phone Number [facility] [address] [place] TSH/Free T4 If Indicated (12/08/2018 1:23 AM CDT) TSH 2.19 0.35 - 4.94 uIU/mL [facility] Specimen Blood Performing Organization Address City/[facility]/Zipcode Phone Number [address] [phone] [place] HIV-1 Antigen with HIV-1/2 Antibody (12/08/2018 1:23 AM CDT) HIV-1 Antigen with HIV 1&2 Nonreactive Nonreactive [facility] Specimen Blood Performing Organization Address City/[facility] Phone Number [address] [phone] [place] RPR (12/08/2018 1:23 AM CDT) RPR Nonreactive Nonreactive [facility] Specimen Blood Performing Organization Address City/State/Zipcode Phone Number [address] [address] [place] Hemoglobin A1c (12/08/2018 1:23 AM CDT) Hemoglobin A1C 8.1 (H) 4.3 - 6.1 % [facility] Specimen Blood Performing Organization Address City/[facility]/Zipcode Phone Number [address] [phone] [place] Fasting lipid panel (12/08/2018 1:23 AM CDT) Triglycerides 135Comment: Specimen slightly mg/dL [facility] Cholesterol 151Comment: Specimen slightly mg/dL [facility] HDL 43 mg/dL [facility] LDL Calculated 81 mg/dL [facility] Specimen Blood Narrative Performed At Triglyceride Reference Range: [facility] Low Risk <150 [id number] High Risk 200-499 Very High Risk>=500 Cholesterol Reference Range: Low Risk <200 [id number] High Risk>240 HDL Cholesterol Reference Range: Low Risk >=60 High Risk <40 LDL Cholesterol Reference Range: Optimal<100 Near [id number] Very High >=190 Fasting Performing Organization Address [facility] Phone Number [address] [address] CENTER Ethanol (12/07/2018 10:16 PM CDT) Ethanol Lvl <10 <=10 mg/dL [facility] Specimen Blood Performing Organization Address [facility] Phone Number [address] [phone] [place] Urinalysis Microscopic Only (12/07/2018 10:11 PM CDT) RBC, UA 1 /HPF [facility] WBC, UA <1 /HPF [facility] Squam Epithel, UA 7 /HPF [facility] Hyaline Casts, UA 2 /LPF [facility] Specimen Urine Performing Organization Address [facility] Phone Number [address] [address] [phone] CENTER Urinalysis with Microscopic If Indicated (12/07/2018 10:11 PM CDT) Color, UA Yellow [facility] Clarity, UA Hazy [facility] Specific Stout, UA 1.012 1.001 - 1.035 [facility] pH, UA 6.0 5.0 - 8.0 [facility] Protein, UA 200 mg/dL (A) Negative [facility] Glucose, UA Negative Negative [facility] Ketones, UA Trace (A) Negative [facility] Bilirubin, UA Negative Negative [facility] Blood, UA Trace (A) Negative [facility] Nitrite, UA Negative Negative [facility] Leukocytes, UA Negative Negative [facility] Urobilinogen, UA 2.0 (H) 0.2 - 1.0 mg/dL [facility] Specimen Source [facility] Specimen Urine Performing Organization Address City/[facility] Phone Number [facility] [address] [place] [phone] [place] Drug screen, urine, comprehensive (12/07/2018 10:11 PM CDT) Specimen Urine Narrative Performed At Hepatic function panel (12/07/2018 6:26 PM CDT) Protein, Total 6.0 6.0 - 8.3 gm/dL [facility] Albumin 3.3 (L) 3.5 - 5.0 g/dL [facility] Total Bilirubin 1.2 0.2 - 1.2 mg/dL [facility] Bilirubin, Direct 0.6 (H) 0.1 - 0.5 mg/dL [facility] Alkaline Phosphatase 74 40 - 150 U/L [facility] AST 103 (H) 5 - 34 U/L [facility] ALT 36 6 - 55 U/L [facility] Specimen Blood Performing Organization Address City/[facility]/Zipcode Phone Number [facility] [address] [place] [phone] [place] after 02/18/2018 Advance Directives For more information, please contact:[address] [phone] Code Status Date Activated Date Inactivated Comments Full Code 12/07/2018 6:12 PM 12/11/2018 5:47 PM This code status was determined by: Patient
--- OUTSIDE RECORDS SUMMARY | 2019-02-19 10:40 | XMS REPORT | Summary of Care ---
:1960 Author Encounter HQ Omega_[id number](NICOLE) [id number] Date(s): 10/30/14 - 11/01/14 [facility] [address] [place] [address]- Discharge Disposition: Home Physician Attending: Aditya Frost DO Physician Admitting: Aditya Frost DO Physician_Referring: Aditya Frost DO Vital Signs Most recent to oldest [Reference 1 2 3 Range]: Height 162.56 cm (10/30/14 5:23 AM) Temperature Oral [96.4-99.1 DegF] 98.5 DegF 98.6 DegF 98 DegF (11/01/14 12:00 PM) (11/01/14 8:00 AM) (11/01/14 4:01 AM) Blood Pressure [90-140/60-90 146/87 mmHg 136/80 mmHg 143/81 mmHg mmHg] *HI* (11/01/14 8:00 AM) *HI* (11/01/14 12:00 PM) (11/01/14 4:01 AM) Respiratory Rate [14-20 BRMIN] 17 BRMIN 17 BRMIN 17 BRMIN (11/01/14 12:00 PM) (11/01/14 8:00 AM) (11/01/14 4:01 AM) Peripheral Pulse Rate [60-100 61 bpm 58 bpm 66 bpm bpm] (11/01/14 12:00 PM) *LOW* (11/01/14 4:01 AM) (11/01/14 8:00 AM) Weight 81.932 kg (10/30/14 5:23 AM) Body Mass Index 31 m2 (10/30/14 5:23 AM) Problem List Condition Effective Dates Status Health Status Informant Diverticulitis(Confirmed) Resolved HTN (hypertension)(Confirmed) Resolved Allergies, Adverse Reactions, Alerts Substance Reaction Severity Status Bactrim Active Medications carvedilol 12.5 mg, 1 tab, Route: PO, Drug form: TAB, BID, Dosing Weight 81.932, kg, Start date: 10/30/14 17:00:00, Duration: 30 day, Stop date: 11/29/14 9:00:00 Notes: Give with food. (Same As: Coreg) Start Date: 10/30/14 Stop Date: 11/01/14 Status: Discontinuedcarvedilol 12.5 mg oral tablet 12.5 mg=1 tab, PO, BID, 0 Refill(s) Start Date: 10/30/14 Status: OrderedDilaudid 1 mg, 1 mL, Route: IVP, Drug form: INJ, Q6H, Dosing Weight 81.932, kg, PRN Pain Score 7-10, Priority: STAT, Start date: 10/30/14 6:25:00, Duration: 30 day, Stop date: 11/29/14 6:24:00 Start Date: 10/30/14 Stop Date: 11/01/14 Status: Discontinuedhydrochlorothiazide 12.5 mg, 1 cap, Route: PO, Drug form: CAP, Daily, Dosing Weight 81.932, kg, Start date: 10/31/14 9:00:00, Duration: 30 day, Stop date: 11/29/14 9:00:00 Notes: (Same as: Microzide) With food. Start Date: 10/31/14 Stop Date: 11/01/14 Status: Discontinuedhydrochlorothiazide 12.5 mg, PO, Daily, 0 Refill(s) Start Date: 10/30/14 Stop Date: 11/01/14 Status: DiscontinuedK-Dur 20 40 mEq, 2 tab, Route: PO, Drug form: ERTAB, ONCE, Dosing Weight 81.932, kg, Start date: 10/30/14 10:30:00, Stop date: 10/30/14 10:30:00 Notes: (Same as: K-Dur 20)"Do Not Crush" With food and full glass of water Start Date: 10/30/14 Stop Date: 10/30/14 Status: Completedlabetalol 5 mg, 1 mL, Route: IVP, Drug form: INJ, Q3H, Dosing Weight 81.932, kg, PRN Hypertension, Start date:10/30/14 6:23:00, Duration: 30 day, Stop date: 6:22:00 Notes: (Same as: Normodyne, Trandate)Push over 2 minutes Give bolus over 2-3 minutes. Start Date: 10/30/14 Stop Date: 11/01/14 Status: Discontinuedlisinopril 20 mg, 1 tab, Route: PO, Drug form: TAB, Daily, Dosing Weight 81.932, kg, Start date: 10/31/14 9:00:00, Duration: 30 day, Stop date: 11/29/14 9:00:00 Notes: (Same as: Prinivil, Zestril) Start Date: 10/31/14 Stop Date: 11/01/14 Status: Discontinuedlisinopril 20 mg, PO, Daily, 0 Refill(s) Start Date: 10/30/14 Status: Orderedmorphine Sulfate 2 mg, 1 mL, Route: IVP, Drug form: INJ, Q4H, Dosing Weight 81.932, kg, PRN Pain Score 1-5, Start date: 10/30/14 6:26:00, Duration: 30 day, Stop date: 11/29/14 6 :25:00 Notes: (Same as:MORPhine Sulfate) Start Date: 10/30/14 Stop Date: 11/01/14 Status: Discontinuednormal saline 0.9% IV 1,000 mL 1,000 mL, Rate: 100 ml/hr, Infuse over: 10 hr, Route: IV, Dosing Weight 81.932 kg, Total Volume: 1,000, Start date: 10/30/14 6:23:00, Duration: 30 day, Stop date: 11/29/14 6:22:00 Start Date: 10/30/14 Stop Date: 11/01/14 Status: Discontinuedpneumococcal 23-valent vaccine 0.5 mL, Route: IM, Drug Form: INJ, Daily, Start date: 10/31/14 9:00:00, Duration : 1 doses or times, Stop date: 10/31/14 9:00:00 Notes: (Same as: Pneumovax 23) Refrigerate Start Date: 10/31/14 Stop Date: 10/31/14 Status: Pending CompletePneumovax 23 0.5 mL, Route: IM, Drug Form: INJ, Daily, Start date: 11/01/14 12:21:00, Duration: 1 doses or times,Stop date: 11/01/14 12:21:00 Notes: (Same as: Pneumovax 23) Refrigerate Start Date: 11/01/14 Stop Date: 11/01/14 Status: CompletedUltram 50 mg oral tablet 1 - 2 tabs, PO, Q4-6H, PRN Pain 1-3/Temp > 100.4 F, X 4 day, # 30 tab, 0 Refill( s) Start Date: 11/01/14 Stop Date: 11/05/14 Status: OrderedZofran 4 mg, 2 mL, Route: IV, Drug form: INJ, Q4H, Dosing Weight 81.932, kg, PRN Nausea , Start date: 10/30/14 6:34:00, Duration: 30 day, Stop date: 11/29/14 6:33:00 Notes: (Same as: Zofran) MEDICATION WASTE Product Size: 4 mgProduct Wasted: ___ mg Start Date: 10/30/14 Stop Date: 11/01/14 Status: Discontinued Results ELECTROLYTES Most recent to oldest [Reference Range]: 1 2 3 Sodium Lvl [135-145 mEq/L] 134 mEq/L 136 mEq/L *LOW* (10/30/14 7:48 AM) (10/31/14 5:18 AM) Potassium Lvl [3.5-5.1 mEq/L] 3.5 mEq/L 3.1 mEq/L (10/31/14 5:18 AM) *LOW* (10/30/14 7:48 AM) Chloride Lvl [95-109 mEq/L] 98 mEq/L 96 mEq/L (10/31/14 5:18 AM) (10/30/14 7:48 AM) CO2 [24-32 mEq/L] 30 mEq/L 33 mEq/L (10/31/14 5:18 AM) *HI* (10/30/14 7:48 AM) AGAP [10.0-20.0 mEq/L] 9.5 mEq/L 10.1 mEq/L *LOW* (10/30/14 7:48 AM) (10/31/14 5:18 AM) CHEM PANEL Most recent to oldest 1 2 3 [Reference Range]: Creatinine Lvl [0.5-1.4 0.9 mg/dL 1.3 mg/dL mg/dL] (10/31/14 5:18 AM) (10/30/14 7:48 AM) eGFR 72 mL/min/1.73m2 1 46 mL/min/1.73m2 2 *NA* *NA* (10/31/14 5:18 AM) (10/30/14 7:48 AM) BUN [7-22 mg/dL] 12 mg/dL 30 mg/dL (10/31/14 5:18 AM) *HI* (10/30/14 7:48 AM) B/C Ratio [6-25] 13 23 (10/31/14 5:18 AM) (10/30/14 7:48 AM) Glucose Lvl [70-99 mg/dL] 145 mg/dL 3 105 mg/dL 4 *HI* *HI* (10/31/14 5:18 AM) (10/30/14 7:48 AM) Total Protein [6.4-8.4 g/dL] 6.1 g/dL 6.4 g/dL *LOW* (10/30/14 7:48 AM) (10/31/14 5:18 AM) Albumin Lvl [3.5-5.0 g/dL] 3.1 g/dL 3.6 g/dL *LOW* (10/30/14 7:48 AM) (10/31/14 5:18 AM) Globulin [2.0-4.0 g/dL] 3.0 g/dL 2.8 g/dL (10/31/14 5:18 AM) (10/30/14 7:48 AM) A/G Ratio [0.7-1.6] 1.0 1.3 (10/31/14 5:18 AM) (10/30/14 7:48 AM) Calcium Lvl [8.5-10.5 mg/dL] 7.8 mg/dL 8.3 mg/dL *LOW* *LOW* (10/31/14 5:18 AM) (10/30/14 7:48 AM) ALT [0-65 unit/L] 57 unit/L 84 unit/L (10/31/14 5:18 AM) *HI* (10/30/14 7:48 AM) AST [0-37 unit/L] 45 unit/L 92 unit/L *HI* *HI* (10/31/14 5:18 AM) (10/30/14 7:48 AM) Alk Phos [39-136 unit/L] 49 unit/L 50 unit/L (10/31/14 5:18 AM) (10/30/14 7:48 AM) Bili Total [0.2-1.3 mg/dL] 0.7 mg/dL 1.0 mg/dL (10/31/14 5:18 AM) (10/30/14 7:48 AM) Lipase Lvl [73-393 unit/L] 545 unit/L 660 unit/L 1352 unit/L *HI* *HI* *HI* (11/01/14 3:47 AM) (10/31/14 5:18 AM) (10/30/14 7:48 AM) 1Result Comment: The eGFR is calculated using the CKD-EPI formula. In most young , healthy individualsthe eGFR will be >90 mL/min/1.73m2. The eGFR declines with age. An eGFR of 60-89 may be normal in some populations, particularly the elderly, for whom the CKD-EPI formula has not been extensively validated. Use of the eGFR is not recommended in the following populations: Individuals with unstable creatinine concentrations, including patients and those with serious co-morbid conditions. Patients with extremes in muscle mass or diet. The data above are obtained from the National Kidney Disease Education Program ( NKDEP) which additionally recommends that when the eGFR is used in patients with extremes of body mass index for purposesof drug dosing, the eGFR should be multiplied by the estimated BMI.2Result Comment: The eGFR is calculated using the CKD-EPI formula. In most young, healthy individualsthe eGFR will be >90 mL/ min/1.73m2. The eGFR declines with age. An eGFR of 60-89 may be normal in some populations, particularly the elderly, for whom the CKD-EPI formula has not been extensively validated. Use of the eGFR is not recommended in the following populations: Individuals with unstable creatinine concentrations, including patients and those with serious co-morbid conditions. Patients with extremes in muscle mass or diet. The data above are obtained from the National Kidney Disease Education Program ( NKDEP) which additionally recommends that when the eGFR is used in patients with extremes of body mass index for purposesof drug dosing, the eGFR should be multiplied by the estimated BMI.3Interpretive Data: Adult reference range values reflect the clinical guidelines of the [place] [employer].4Interpretive Data: Adult reference range values reflect the clinical guidelines of the [place] [employer].LIPIDS Most recent to oldest [Reference Range]: 1 2 3 CHD Risk [3.90-5.80] 2.23 *LOW* (10/31/14:18 AM) Chol [<=199 mg/dL] 172 mg/dL (10/31/14:18 AM) Trig [<=149 mg/dL] 67 mg/dL (10/31/14:18 AM) HDL [>=61 mg/dL] 77 mg/dL (10/31/14:18 AM) LDL (Calculated) [<=99 mg/dL] 82 mg/dL (10/31/14 5:18 AM) VLDL 13 *NA* (10/31/14:18 AM) HEMATOLOGY Most recent to oldest [Reference Range]: 1 2 3 WBC [3.7-10.4 K/CMM] 8.0 K/CMM 7.8 K/CMM (10/31/14 5:18 AM) (10/30/14 7:48 AM) RBC [4.20-5.40 M/CMM] 3.39 M/CMM 3.56 M/CMM *LOW* *LOW* (10/31/14:18 AM) (10/30/14 7:48 AM) Hgb [12.0-16.0 g/dL] 12.0 g/dL 12.8 g/dL (10/31/14:18 AM) (10/30/14 7:48 AM) Hct [36.0-48.0 %] 35.5 % 36.8 % *LOW* (10/30/14 7:48 AM) (10/31/14 5:18 AM) MCV [80.0-98.0 fL] 104.7 fL 103.3 fL *HI* *HI* (10/31/14 5:18 AM) (10/30/14 7:48 AM) MCH [27.0-31.0 pg] 35.5 pg 36.1 pg *HI* *HI* (10/31/14 5:18 AM) (10/30/14 7:48 AM) MCHC [32.0-36.0 g/dL] 33.9 g/dL 34.9 g/dL (10/31/14 5:18 AM) (10/30/14 7:48 AM) RDW [11.5-14.5 %] 12.7 % 12.9 % (10/31/14:18 AM) (10/30/14 7:48 AM) Platelet [133-450 K/CMM] 128 K/CMM 163 K/CMM *LOW* (10/30/14 7:48 AM) (10/31/14 5:18 AM) MPV [7.4-10.4 fL] 9.5 fL 8.3 fL (10/31/14 5:18 AM) (10/30/14 7:48 AM) Segs [45.0-75.0 %] 76.2 % 70.9 % *HI* (10/30/14 7:48 AM) (10/31/14:18 AM) Lymphocytes [20.0-40.0 %] 15.1 % 20.3 % *LOW* (10/30/14 7:48 AM) (10/31/14 5:18 AM) Monocytes [2.0-12.0 %] 6.1 % 6.7 % (10/31/14 5:18 AM) (10/30/14 7:48 AM) Eosinophils [0.0-4.0 %] 2.3 % 1.4 % (10/31/14 5:18 AM) (10/30/14 7:48 AM) Basophils [0.0-1.0 %] 0.3 % 0.7 % (10/31/14 5:18 AM) (10/30/14 7:48 AM) Segs-Bands # [1.5-8.1 K/CMM] 6.1 K/CMM 5.5 K/CMM (10/31/14 5:18 AM) (10/30/14 7:48 AM) Lymphocytes # [1.0-5.5 K/CMM] 1.2 K/CMM 1.6 K/CMM (10/31/14 5:18 AM) (10/30/14 7:48 AM) Monocytes # [0.0-0.8 K/CMM] 0.5 K/CMM 0.5 K/CMM (10/31/14 5:18 AM) (10/30/14 7:48 AM) Eosinophils # [0.0-0.5 K/CMM] 0.2 K/CMM 0.1 K/CMM (10/31/14 5:18 AM) (10/30/14 7:48 AM) Basophils # [0.0-0.2 K/CMM] 0.1 K/CMM (10/30/14 7:48 AM) Macrocyte [None Seen] 2+ 1+ *ABN* *ABN* (10/31/14 5:18 AM) (10/30/14 7:48 AM) Immunizations Vaccine Date Refusal Reason pneumococcal 23-valent vaccine 11/01/14 Procedures Procedure Date Related Diagnosis Body Site section Social History Social History Type Response Substance Abuse Use: None. Alcohol Current, Type Liquor. Frequency: 1-2 times per week. Previous treatment: None. Smoking Status Former smoker; Type: Cigarettes; Tobacco use per day: 1; Previous treatment: None; Ready to change: Yes; Concerns about tobacco use in household: Yes; Exposure to Tobacco Smoke None; Cigarette Smoking Last 365 Days Yes; Reg Smoking Cessation Counseling No Assessment and Plan Extracted from: Title: Clinical Document Author: TeqwAditya zavala DO Date: 10/31/14 Progress Daily [facility] SUBJECTIVE Pt is feeling better with minimal abdominal pain. denies fever or chills OBJECTIVE Vital Signs (last 24 hrs) Last Charted Minimum Maximum Temp H 99.3 (OCT 31 08:08) 97.3 (OCT 31 00:04) H 99.3 (OCT 31 08:08) Heart Rate 62 (OCT 31 08:08) 60 (OCT 30 16:00) 74 (OCT 31 03:50) Resp Rate 18 (OCT 31 08:08) 18 (OCT 31 00:04) 20 (OCT 30 16:00) SBP 131 (OCT 31 08:08) 110 (OCT 31 00:04) 138 (OCT 31 03:50) DBP 81 (OCT 31 08:08) 69 (OCT 30 16:00) 83 (OCT 31 03:50) Labs (Last four charted values) WBC 8.0 (OCT 31) 7.8 (OCT 30) Hgb 12.0 (OCT 31) 12.8 (OCT 30) Hct L 35.5 (OCT 31) 36.8 (OCT 30) Plt L 128 (OCT 31) 163 (OCT 30) Na L 134 (OCT 31) 136 (OCT 30) K 3.5 (OCT 31) L 3.1 (OCT 30) CO2 30 (OCT 31) H 33 (OCT 30) Cl 98 (OCT 31) 96 (OCT 30) Cr 0.9 (OCT 31) 1.3 (OCT 30) BUN 12 (OCT 31) H 30 (OCT 30) Glucose Random H 145 (OCT 31) H 105 (OCT 30) Ca L 7.8 (OCT 31) L 8.3 (OCT 30) Input/Output Record In Out Bal 10/31 24hr Tot 2 0 2 10/30 24hr Tot [id number] ASSESSMENT & EXAM Gen. Pt is AOX4 in no acute distress HEET: Normocephalic, nontraumatic. NECK: Supple, no JVD or Lymphadenopathy LUNGS: Clear on auscultation B/l with no wheezing or crackles HEART: S1, S2.RRR with no murmurs ABDOMEN: Soft, mild diffuse tenderness CENTRAL NERVOUS SYSTEM: Patient moving all extremities grossly well. LOWER EXTREMITIES: No C/C/E PLAN & TREATMENT Pt admitted with acute pancreatitis -Pt is feeling better -lipase trending down -Will start on reg diet -C/w IVF DIAGNOSES & PROBLEMS Acute pancreatitis Chronic diarrhea HTN Scheduled Meds (3):carvedilol, hydrochlorothiazide, lisinopril Unscheduled Meds: None PRN Meds (4):hydromorphone (Dilaudid), labetalol, morphine Sulfate, ondansetron (Zofran) One Time Meds (1):(Completed) potassium chloride (K-Dur 20) Continuous Infusions (1):Sodium Chloride 0.9% IV 1,000 mL (normal saline 0.9% IV 1,000 mL)
--- OUTSIDE RECORDS SUMMARY | 2019-02-19 10:40 | XMS REPORT | Continuity of Care Document ---
:1960 Author Organization [employer] Care Team Providers Name Role Phone [employer] Unavailable Unavailable Problems Problem Status Onset Classification Date Comments Source Date Reported PANCREATITIS Active 10/31/19 15 [place] Diverticulitis Resolved Problem 2014 MH (disorder) [facility] Hypertensive Resolved Problem 2014 disorder, [place] systemic arterial (disorder) CHRONIC Active PANCREATITIS [facility] Medications Medication Details Route Status Patient Ordering Order Source Instructions Provider Date Pneumovax 23 0.5 mL, Inactive Route: IM, 2014 [facility] Drug Form: INJ, Daily, Start date: 11/01/14 12:21:00, Duration: 1 doses or times, Stop date: 11/01/14 12:21:00Note s: (Same as: Pneumovax 23) Refrigerate tramadol 1 - 2 tabs, Active hydrochloride 50 MG PO, Q4-6H, 2014 Oral Tablet [Ultram] PRN Pain 1-3/Temp > 100.4 F, X 4 day, # 30 tab, 0 Refill(s) Lisinopril 20 mg, 1 No Longer tab, Route: Active 2014 [facility] PO, Drug form: TAB, Daily, Dosing Weight 81.932, kg, Start date: 10/31/14 9:00:00, Duration: 30 day, Stop date: 11/29/14 9:00:00Notes : (Same as: Prinivil, Zestril) Hydrochlorothiazide 12.5 mg, 1 No Longer cap, Route: Active 2014 [facility] PO, Drug form: CAP, Daily, Dosing Weight 81.932, kg, Start date: 10/31/14 9:00:00, Duration: 30 day, Stop date: 11/29/14 9:00:00Notes : (Same as: Microzide) With food. pneumococcal 0.5 mL, Inactive capsular Route: IM, 2014 polysaccharide type Drug Form: 1 vaccine / INJ, Daily, pneumococcal Start date: capsular 10/31/14 polysaccharide type 9:00:00, 10A vaccine / Duration: 1 pneumococcal doses or capsular times, Stop polysaccharide type date: 11A vaccine / 10/31/14 pneumococcal 9:00:00Notes capsular : (Same as: polysaccharide type Pneumovax 12F vaccine / 23) pneumococcal Refrigerate capsular polysacchar carvedilol 12.5 mg, 1 No Longer tab, Route: Active 2014 [facility] PO, Drug form: TAB, BID, Dosing Weight 81.932, kg, Start date: 10/30/14 17:00:00, Duration: 30 day, Stop date: 11/29/14 9:00:00Notes : Give with food. (Same As: Coreg) K-Dur 20 40 mEq, 2 Inactive tab, Route: 2014 [facility] PO, Drug form: ERTAB, ONCE, Dosing Weight 81.932, kg, Start date: 10/30/14 10:30:00, Stop date: 10/30/14 10:30:00Note s: (Same as: K-Dur 20) "Do Not Crush" With food and full glass of water Zofran 4 mg, 2 mL, No Longer Route: IV, Active 2014 [facility] Drug form: INJ, Q4H, Dosing Weight 81.932, kg, PRN Nausea, Start date: 10/30/14 6:34:00, Duration: 30 day, Stop date: 11/29/14 6:33:00Notes : (Same as: Zofran) MEDICATION WASTE Product Size: 4 mg Product Wasted: ___ mg Morphine 2 mg, 1 mL, No Longer Route: IVP, Active 2014 [facility] Drug form: INJ, Q4H, Dosing Weight 81.932, kg, PRN Pain Score 1-5, Start date: 10/30/14 6:26:00, Duration: 30 day, Stop date: 11/29/14 6:25:00Notes : (Same as:MORPhine Sulfate) Dilaudid 1 mg, 1 mL, No Longer Route: IVP, Active 2014 [facility] Drug form: INJ, Q6H, Dosing Weight 81.932, kg, PRN Pain Score 7-10, Priority: STAT, Start date: 10/30/14 6:25:00, Duration: 30 day, Stop date: 11/29/14 6:24:00 Labetalol 5 mg, 1 mL, No Longer Route: IVP, Active 2014 [facility] Drug form: INJ, Q3H, Dosing Weight 81.932, kg, PRN Hypertension , Start date: 10/30/14 6:23:00, Duration: 30 day, Stop date: 11/29/14 6:22:00Notes : (Same as: Normodyne, Trandate) Push over 2 minutes Give bolus over 2-3 minutes. normal saline 0.9% 1,000 mL, No Longer IV 1,000 mL Rate: 100 Active 2014 [facility] ml/hr, Infuse over: 10 hr, Route: IV, Dosing Weight 81.932 kg, Total Volume: 1,000, Start date: 10/30/14 6:23:00, Duration: 30 day, Stop date: 11/29/14 6:22:00 carvedilol 12.5 mg 12.5 mg=1 Active oral tablet tab, PO, 2014 [facility] BID, 0 Refill(s) Hydrochlorothiazide 12.5 mg, PO, No Longer Daily, 0 Active 2014 [facility] Refill(s) Lisinopril 20 mg, PO, Active Daily, 0 2014 [facility] Refill(s) Allergies, Adverse Reactions, Alerts Substance Category Reaction Severity Reaction Status Date Comments Source type Reported Bactrim Assertion Drug Active allergy [facility] Immunizations Immunization Date Site Status Last Comments Source Given Updated pneumococcal Right completed [facility] 23-valent 5 deltoid vaccine Results Order Name Results Value Reference Date Interpretation Comments Source Range CHEM PANEL Lipase Lvl 545 73 393 11/01 [facility] CHEM PANEL Lipase Lvl 660 73 - 393 10/31 [facility] ELECTROLYTES Sodium Lvl 134 135 - 145 10/31 [facility] ELECTROLYTES Potassium 3.5 3.5 - 5.1 10/31 [facility] ELECTROLYTES Calcium Lvl 7.8 8.5 - 10.5 10/31 [facility] ELECTROLYTES Chloride Lvl 98 95 - 109 10/31 [facility] ELECTROLYTES eGFR 72 10/31 <sup>1</sup>R MH /2014 [facility] Comment: The eGFR is calculated using the CKD-EPI formula. In most young, healthy individuals the eGFR will be >90 mL/min/1.73m2 . The eGFR declines with age. An eGFR of 60-89 may be normal in some populations, particularly the elderly, for whom the CKD-EPI formula has not been extensively validated. Use of the eGFR is not recommended in the following populations:& lt;br/>
I ndividuals with unstable creatinine concentration s, including patients and those with serious co-morbid conditions.<b r/>
Patie nts with extremes in muscle mass or diet.

The data above are obtained from the National Kidney Disease Education Program (NKDEP) which additionally recommends that when the eGFR is used in patients with extremes of body mass index for purposes of drug dosing, the eGFR should be multiplied by the estimated BMI. ELECTROLYTES Globulin 3.0 2.0 - 4.0 10/31 [facility] ELECTROLYTES A/G Ratio 1.0 0.7 - 1.6 10/31 [facility] ELECTROLYTES AST 45 0 - 37 10/31 [facility] ELECTROLYTES ALT 57 0 - 65 10/31 [facility] ELECTROLYTES Alk Phos 49 39 - 136 10/31 [facility] ELECTROLYTES Bili Total 0.7 0.2 - 1.3 10/31 [facility] ELECTROLYTES Glucose Lvl 145 70 - 99 10/31 <sup>3</sup>I MH nterpretive [facility] Data: Adult reference range values reflect the clinical guidelines
of the [place] [employer]. ELECTROLYTES Creatinine 0.9 0.5 - 1.4 10/31 MH Lvl /2014 [facility] ELECTROLYTES BUN 12 7 - 22 10/31 [facility] ELECTROLYTES B/C Ratio 13 6 - 25 10/31 [facility] ELECTROLYTES CO2 30 24 - 32 10/31 [facility] ELECTROLYTES Total 6.1 6.4 - 8.4 10/31 MH Protein [facility] ELECTROLYTES AGAP 9.5 10.0 - 04 MH 20.0 /2015 [facility] ELECTROLYTES Albumin Lvl 3.1 3.5 - 5.0 10/31 [facility] HEMATOLOGY Eosinophils 0.2 0.0 - 0.5 10/31 MH # /2014 [facility] HEMATOLOGY Macrocyte 2+ None Seen 10/31 MH *ABN* /2014 [facility] (10/31/14 5:18 AM) HEMATOLOGY Monocytes # 0.5 0.0 - 0.8 10/31 [facility] HEMATOLOGY Eosinophils 2.3 0.0 - 4.0 10/31 [facility] HEMATOLOGY Lymphocytes 1.2 1.0 - 5.5 10/31 MH # /2014 [facility] HEMATOLOGY Basophils 0.3 0.0 - 1.0 10/31 [facility] HEMATOLOGY Segs-Bands # 6.1 1.5 - 8.1 10/31 [facility] HEMATOLOGY Monocytes 6.1 2.0 - 12.0 10/31 [facility] HEMATOLOGY Lymphocytes 15.1 20.0 - 10/31 MH 40.0 /2014 [facility] HEMATOLOGY Segs 76.2 45.0 - 10/31 MH 75.0 /2014 [facility] HEMATOLOGY MCHC 33.9 32.0 - 10/31 MH 36.0 /2014 [facility] HEMATOLOGY MCV 104.7 80.0 - 10/31 MH 98.0 /2014 [facility] HEMATOLOGY Hct 35.5 36.0 - 10/31 MH 48.0 /2014 [facility] HEMATOLOGY Hgb 12.0 12.0 - 10/31 MH 16.0 /2014 [facility] HEMATOLOGY WBC 8.0 3.7 - 10.4 10/31 [facility] HEMATOLOGY RBC 3.39 4.20 - 10/31 MH 5.40 /2014 [facility] HEMATOLOGY Platelet 128 133 - 450 10/31 [facility] HEMATOLOGY MPV 9.5 7.4 - 10.4 10/31 [facility] HEMATOLOGY RDW 12.7 11.5 - 10/31 MH 14.5 [facility] HEMATOLOGY MCH 35.5 27.0 - 10/31 MH 31.0 /2014 [facility] LIPIDS HDL 77 >=61 mg/dL 10/31 [facility] LIPIDS Chol 172 <=199 10/31 MH mg/dL [facility] LIPIDS Trig 67 <=149 10/31 mg/dL /2014 [facility] LIPIDS LDL 82 <=99 mg/dL 10/31 (Calculated) /2014 [facility] LIPIDS CHD Risk 2.23 3.90 - 10/31 MH 5.80 /2014 [facility] LIPIDS VLDL 13 10/31 /2014 [facility] CHEM PANEL Lipase Lvl 1352 73 - 393 10/30 [facility] CHEM PANEL Alk Phos 50 39 - 136 10/30 [facility] CHEM PANEL Bili Total 1.0 0.2 - 1.3 10/30 [facility] CHEM PANEL Albumin Lvl 3.6 3.5 - 5.0 10/30 [facility] CHEM PANEL CO2 33 24 - 32 10/30 [facility] CHEM PANEL Total 6.4 6.4 - 8.4 10/30 [facility] CHEM PANEL ALT 84 0 - 65 10/30 [facility] CHEM PANEL AST 92 0 - 37 10/30 [facility] CHEM PANEL Glucose Lvl 105 70 - 99 10/30 <sup>4</sup>I nterpretive [facility] Data: Adult reference range values reflect the clinical guidelines
of the [place] [employer]. CHEM PANEL BUN 30 7 - 22 10/30 [facility] CHEM PANEL eGFR 46 10/30 <sup>2</sup>R esult [facility] Comment: The eGFR is calculated using the CKD-EPI formula. In most young, healthy individuals the eGFR will be >90 mL/min/1.73m2 . The eGFR declines with age. An eGFR of 60-89 may be normal in some populations, particularly the elderly, for whom the CKD-EPI formula has not been extensively validated. Use of the eGFR is not recommended in the following populations:& lt;br/>
I ndividuals with unstable creatinine concentration s, including patients and those with serious co-morbid conditions.<b r/>
Patie nts with extremes in muscle mass or diet.

The data above are obtained from the National Kidney Disease Education Program (NKDEP) which additionally recommends that when the eGFR is used in patients with extremes of body mass index for purposes of drug dosing, the eGFR should be multiplied by the estimated BMI. CHEM PANEL Potassium 3.1 3.5 - 5.1 10/30 [facility] CHEM PANEL Calcium Lvl 8.3 8.5 - 10.5 10/30 [facility] CHEM PANEL Chloride Lvl 96 95 - 109 10/30 [facility] CHEM PANEL Sodium Lvl 136 135 - 145 10/30 [facility] CHEM PANEL Creatinine 1.3 0.5 - 1.4 10/30 [facility] CHEM PANEL Globulin 2.8 2.0 - 4.0 10/30 /2014 [facility] CHEM PANEL A/G Ratio 1.3 0.7 - 1.6 10/30 [facility] CHEM PANEL B/C Ratio 23 6 - 25 10/30 /2014 [facility] CHEM PANEL AGAP 10.1 10.0 - 10/30 MH 20.0 /2014 [facility] HEMATOLOGY Macrocyte 1+ None Seen 10/30 MH *ABN* /2014 [facility] (10/30/14 7:48 AM) HEMATOLOGY Segs-Bands # 5.5 1.5 - 8.1 10/30 [facility] HEMATOLOGY Basophils 0.7 0.0 - 1.0 10/30 /2014 [facility] HEMATOLOGY Eosinophils 1.4 0.0 - 4.0 10/30 [facility] HEMATOLOGY Basophils # 0.1 0.0 - 0.2 10/30 [facility] HEMATOLOGY Eosinophils 0.1 0.0 - 0.5 10/30 MH # /2014 [facility] HEMATOLOGY Lymphocytes 1.6 1.0 - 5.5 10/30 MH # /2015 [facility] HEMATOLOGY Monocytes # 0.5 0.0 - 0.8 10/30 /2014 [facility] HEMATOLOGY Monocytes 6.7 2.0 - 12.0 10/30 /2014 [facility] HEMATOLOGY Lymphocytes 20.3 20.0 - 10/30 MH 40.0 /2014 [facility] HEMATOLOGY Segs 70.9 45.0 - 10/30 MH 75.0 /2014 [facility] HEMATOLOGY RDW 12.9 11.5 - 10/30 MH 14.5 /2014 [facility] HEMATOLOGY Hgb 12.8 12.0 - 10/30 MH 16.0 /2014 [facility] HEMATOLOGY RBC 3.56 4.20 - 10/30 MH 5.40 /2014 [facility] HEMATOLOGY MPV 8.3 7.4 - 10.4 10/30 /2014 [facility] HEMATOLOGY Platelet 163 133 - 450 10/30 [facility] HEMATOLOGY MCV 103.3 80.0 - 10/30 MH 98.0 /2014 [facility] HEMATOLOGY Hct 36.8 36.0 - 10/30 MH 48.0 [facility] HEMATOLOGY MCHC 34.9 32.0 - 10/30 MH 36.0 [facility] HEMATOLOGY MCH 36.1 27.0 - 10/30 MH 31.0 [facility] HEMATOLOGY WBC 7.8 3.7 - 10.4 10/30 [facility] Pathology Reports No Data Provided for This Section Diagnostic Reports Report Value Date Source Abdomen w/wo contrast DYNAMIC MRI OF THE ABDOMEN WITH AND WITHOUT CONTRAST: 10/31/2014 [facility] MRI CLINICAL HISTORY: Acute abdominal pain. TECHNIQUE AND FINDINGS: A dynamic precontrast and postcontrast MRI of the liver was performed on a 1.5 savage magnet. Multiple imaging sequences were obtained including coronal T1 localizer, axial T1, axial T2 FSE fat-suppresse d, axial SSFSE, axial in phase/out of phase, and dynamic postcontrast axial T1 SPGR. COMPARISON: Abdominal ultrasound 10/30/2014 1. Normal size liver with fatty infiltration on out of phase images associated with areas of sparing adjacent to the gallbladder and kia hepatis. No focal hepatic lesions are otherwise appreciated on the precontrast and dynamic postcontrast images of the liver. 2. Normal gallbladder without cholelithiasis, pericholecystic inflammation, or biliary dilatation. 3. Although evaluation is mildly compromised by artifact, induration, stranding, and fluid is seen involving the pancreas and peripancreatic fat extending into the left anterior pararenal fascia. Trace perisplenic and perihepatic fluid are also noted. Findings are suspicious for acute pancreatitis. No focal pancreatic lesion is appreciated on the precontrast or post contrast images. The pancreatic ginny t is not dilated. No evidence of pancreatic pseudocyst, abscess, or necrosis. Heterogeneous areas of enhancement in the region of the pancreatic tail are likely related to inflammation or partial volume averaging artifact. 4. Normal kidneys, adrenal glands, spleen, and abdominal aorta. 5. No lymphadenopathy or mass. 6. Mild spinal degenerative change. IMPRESSION: 1. Findings consistent with acute pancreatitis as above discussed. Heterogeneous areas of enhancement in the pancreatic tail likely represent inflammation and partial volume averaging artifact. No defin ite occult pancreatic lesion is appreciated. Follow-up imaging is recommended after appropriate treatment to or evaluate this region. 2. Fatty liver infiltration with areas of focal sparing. SL:17 Consultation Notes No Data Provided for This Section Discharge Summaries No Data Provided for This Section History and Physicals No Data Provided for This Section Vital Signs Vital Sign Value Date Comments Source Heart Rate 61 11/01/2014 [facility] Temperature Oral (F) 98.5 F 11/01/2014 [facility] Systolic (mm Hg) 146 11/01/2014 [facility] Diastolic (mm Hg) 87 11/01/2014 [facility] Respitory Rate 17 11/01/2014 [facility] Heart Rate 58 11/01/2014 [facility] Systolic (mm Hg) 136 11/01/2014 [facility] Diastolic (mm Hg) 80 11/01/2014 [facility] Respitory Rate 17 11/01/2014 [facility] Temperature Oral (F) 98.6 F 11/01/2014 [facility] Respitory Rate 17 11/01/2014 [facility] Systolic (mm Hg) 143 11/01/2014 [facility] Diastolic (mm Hg) 81 11/01/2014 [facility] Temperature Oral (F) 98 F 11/01/2014 [facility] Heart Rate 66 11/01/2014 [facility] Weight 81.932 10/30/2014 [facility] BMI Calculated 31 10/30/2014 [facility] Height 162.56 cm 10/30/2014 [facility] Encounters Location Location Encounter Encounter Reason Attending ADM DC Status Source Details Type Number For Provider Date Date Visit [facility] Inpatient [id number] Aditya 10/30 11/01 [facility] /2014 [facility] Procedures Procedure Code Date Perfomer Comments Source section [id number] [facility] Assessment and Plan Assessment and Plan Date Source Extracted from:Title: Clinical Document 11/01/2014 [facility] Author: Aditya Frost DO Date: 10/31/14 Progress Daily [facility] SUBJECTIVE Pt is feeling better with minimal [...] 18 (OCT 31 00:04) 20 (OCT 30 16 :00) SBP 131 (OCT 31 08:08) 110 (OCT [...] 10/30 24hr Tot [id number] ASSESSMENT and EXAM Gen. Pt is AOX4 in no acute distress HEET: Normocephalic, nontraumatic. NECK: Supple, no JVD or Lymphadenopathy LUNGS: Clear on auscultation B/l with no wheezing or crackles HEART: S1, S2.RRR with no murmurs ABDOMEN: Soft, mild diffuse tenderness CENTRAL NERVOUS SYSTEM: Patient moving all extremities grossly well. LOWER EXTREMITIES: No C/C/E PLAN and TREATMENT Pt admitted with acute pancreatitis -Pt is feeling better -lipase trending down -Will start on reg diet -C/w IVF DIAGNOSES and PROBLEMS Acute pancreatitis Chronic diarrhea HTN Scheduled Meds (3):carvedilol, hydrochlorothiazide, lisinopril Unscheduled Meds: None PRN Meds (4):hydromorphone (Dilaudid), labetalol, morphine Sulfate, ondansetron (Zofran) One Time Meds (1):(Completed) potassium chloride (K-Dur 20) Continuous Infusions (1):Sodium Chloride 0.9% IV 1,000 mL (normal saline 0.9% IV 1,000 mL) Plan of Care No Data Provided for This Section Social History Social History Date Source Social History TypeResponse 10/30/2014 [facility] Substance Abuse Use: None. Alcohol Current, Type Liquor. Frequency: 1-2 times per week. Previous treatment: None. Smoking Status Former smoker; Type: Cigarettes; Tobacco use per day: 1; Previous treatment: None; Ready to change: Yes; Concerns about tobacco use in household: Yes; Exposure to Tobacco Smoke None; Cigarette Smoking L ast 365 Days Yes; Reg Smoking Cessation Counseling No Family History No Data Provided for This Section Advance Directives No Data Provided for This Section Functional Status No Data Provided for This Section
--- OUTSIDE RECORDS SUMMARY | 2019-02-19 10:41 | XMS REPORT ---
[...] Date Status Dosage System Date Metformin HCl [facility] 2001 [id number] 1000 MG Orally October 28, Active 1 tablet Twice a day 2017 with a meal Results No Known Results Summary Purpose [employer] Submission
--- OUTSIDE RECORDS SUMMARY | 2019-02-19 10:41 | XMS REPORT ---
[...] Medications Results No Known Results Summary Purpose [employer] Submission
--- OUTSIDE RECORDS SUMMARY | 2019-02-19 10:41 | XMS REPORT ---
:1960 [facility] Address [address] [place] [address] [address]. [address] [place] [address] Care Team Providers Name Role Phone RICH CHIANG Unavailable Unavailable Problems This patient has no known problems. Allergies, Adverse Reactions, Alerts This patient has no known allergies or adverse reactions. Medications This patient has no known medications. Results Test Description Test Time Test Comments Text Results Atomic Results Result Comments BASIC METABOLIC PANEL 2018-12-11 05:52:00 Test Item Value Reference Range Comments SODIUM (BEAKER) (test 135 meq/L 136-145 dbrt=260) POTASSIUM (BEAKER) (test 3.9 meq/L 3.5-5.1 plsh=832) CHLORIDE (BEAKER) (test 101 meq/L 98-107 mdpg=982) CO2 (BEAKER) (test bknn=063) 25 meq/L 22-29 BLOOD UREA NITROGEN (BEAKER) 11 mg/dL 7-21 (test dxnq=481) CREATININE (BEAKER) (test 0.84 mg/dL 0.57-1.25 wrde=933) GLUCOSE RANDOM (BEAKER) 157 mg/dL 70-105 (test sumv=137) CALCIUM (BEAKER) (test 9.0 mg/dL 8.4-10.2 hgxx=102) EGFR (BEAKER) (test 69 mL/min/1.73 sq m ESTIMATED GFR IS NOT prny=3333) ACCURATE CREATININE CLEARANCE IN PREDICTING GLOMERULAR FILTRATION RATE. ESTIMATED GFR IS NOT APPLICABLE FOR DIALYSIS PATIENTS. CBC W/PLT COUNT & AUTO [id number] 04:21:00 Test Item Value Reference Range Comments WHITE BLOOD CELL COUNT (BEAKER) (test xlue=267) 5.6 K/ L 3.5-10.5 RED BLOOD CELL COUNT (BEAKER) (test ojuc=966) 2.98 M/ L 3.93-5.22 HEMOGLOBIN (BEAKER) (test nhju=384) 10.1 GM/DL 11.2-15.7 HEMATOCRIT (BEAKER) (test nwhw=182) 30.4 % 34.1-44.9 MEAN CORPUSCULAR VOLUME (BEAKER) (test wzpz=850) 102.0 fL 79.4-94.8 MEAN CORPUSCULAR HEMOGLOBIN (BEAKER) (test 33.9 pg 25.6-32.2 ixsg=890) MEAN CORPUSCULAR HEMOGLOBIN CONC (BEAKER) (test 33.2 GM/DL 32.2-35.5 sjzo=888) RED CELL DISTRIBUTION WIDTH (BEAKER) (test 12.6 % 11.7-14.4 bhzt=081) PLATELET COUNT (BEAKER) (test zyde=336) 318 K/CU MM 150-450 MEAN PLATELET VOLUME (BEAKER) (test uqtg=289) 9.9 fL 9.4-12.3 NUCLEATED RED BLOOD CELLS (BEAKER) (test 0 /100 WBC 0-0 ughg=556) NEUTROPHILS RELATIVE PERCENT (BEAKER) (test 61 % hdlf=929) LYMPHOCYTES RELATIVE PERCENT (BEAKER) (test 27 % ycla=562) MONOCYTES RELATIVE PERCENT (BEAKER) (test 9 % joqr=197) EOSINOPHILS RELATIVE PERCENT (BEAKER) (test 2 % ofdq=949) BASOPHILS RELATIVE PERCENT (BEAKER) (test 0 % wndz=049) NEUTROPHILS ABSOLUTE COUNT (BEAKER) (test 3.40 K/ L 1.56-6.13 nerq=265) LYMPHOCYTES ABSOLUTE COUNT (BEAKER) (test 1.50 K/ L 1.18-3.74 akju=483) MONOCYTES ABSOLUTE COUNT (BEAKER) (test 0.51 K/ L 0.24-0.36 iose=143) EOSINOPHILS ABSOLUTE COUNT (BEAKER) (test 0.12 K/ L 0.04-0.36 lktr=018) BASOPHILS ABSOLUTE COUNT (BEAKER) (test 0.02 K/ L 0.01-0.08 okle=590) IMMATURE GRANULOCYTES-RELATIVE PERCENT (BEAKER) 0 % 0-1 (test aujf=3089) POCT-GLUCOSE [id number] 22:00:00 Test Item Value Reference Range Comments POC-GLUCOSE METER (BEAKER) 148 mg/dL 70-[address] [facility] [address] [facility] (test vhhr=9657) [facility] [address] POCT-GLUCOSE [id number] 17:06:00 Test Item Value Reference Range Comments POC-GLUCOSE METER (BEAKER) 224 mg/dL 70-[address] [facility] [address] [facility] (test fpbf=9265) [facility] [address] POCT-GLUCOSE [id number] 12:39:00 Test Item Value Reference Range Comments POC-GLUCOSE METER (BEAKER) 214 mg/dL 70-[address] [facility] [address] [facility] (test dzoa=7087) [facility] [address] POCT-GLUCOSE [id number] 08:26:00 Test Item Value Reference Range Comments POC-GLUCOSE METER (BEAKER) 166 mg/dL 70-110 TESTED AT [place] [id number] [facility] (test mvav=0791) [facility] [address] COMPREHENSIVE METABOLIC [id number] 05:17:00 Test Item Value Reference Range Comments TOTAL PROTEIN (BEAKER) 6.3 gm/dL 6.0-8.3 (test wvcw=746) ALBUMIN (BEAKER) (test 3.3 g/dL 3.5-5.0 wclu=6254) ALKALINE PHOSPHATASE 84 U/L 40-150 (BEAKER) (test zall=382) BILIRUBIN TOTAL (BEAKER) 0.4 mg/dL 0.2-1.2 (test cybt=386) SODIUM (BEAKER) (test 137 meq/L 136-145 xuqo=286) POTASSIUM (BEAKER) (test 3.9 meq/L 3.5-5.1 owro=937) CHLORIDE (BEAKER) (test 98 meq/L 98-107 pgzf=066) CO2 (BEAKER) (test 31 meq/L 22-29 rxmk=957) BLOOD UREA NITROGEN 10 mg/dL 7-21 (BEAKER) (test qdky=796) CREATININE (BEAKER) (test 0.79 mg/dL 0.57-1.25 lwls=566) GLUCOSE RANDOM (BEAKER) 161 mg/dL 70-105 (test ttkt=811) CALCIUM (BEAKER) (test 9.2 mg/dL 8.4-10.2 pevw=461) AST (SGOT) (BEAKER) (test 38 U/L 5-34 oinu=751) ALT (SGPT) (BEAKER) (test 23 U/L 6-55 xinh=188) EGFR (BEAKER) (test 74 mL/min/1.73 sq m ESTIMATED GFR IS NOT fnzo=6615) ACCURATE CREATININE CLEARANCE IN PREDICTING GLOMERULAR FILTRATION RATE. ESTIMATED GFR IS NOT APPLICABLE FOR DIALYSIS PATIENTS. [id number] 05:14:00 Test Item Value Reference Range Comments PHOSPHORUS (BEAKER) (test mylm=219) 2.9 mg/dL 2.3-4.7 [id number] 05:14:00 Test Item Value Reference Range Comments MAGNESIUM (BEAKER) (test hfuy=128) 1.6 mg/dL 1.6-2.6 CBC W/PLT COUNT & AUTO [id number] 04:48:00 Test Item Value Reference Range Comments WHITE BLOOD CELL COUNT (BEAKER) (test vjcg=208) 7.4 K/ L 3.5-10.5 RED BLOOD CELL COUNT (BEAKER) (test amnd=663) 3.37 M/ L 3.93-5.22 HEMOGLOBIN (BEAKER) (test ctcd=763) 11.4 GM/DL 11.2-15.7 HEMATOCRIT (BEAKER) (test lcjt=603) 34.6 % 34.1-44.9 MEAN CORPUSCULAR VOLUME (BEAKER) (test vfwy=129) 102.7 fL 79.4-94.8 MEAN CORPUSCULAR HEMOGLOBIN (BEAKER) (test 33.8 pg 25.6-32.2 oiqc=316) MEAN CORPUSCULAR HEMOGLOBIN CONC (BEAKER) (test 32.9 GM/DL 32.2-35.5 rquk=713) RED CELL DISTRIBUTION WIDTH (BEAKER) (test 12.7 % 11.7-14.4 dqpc=888) PLATELET COUNT (BEAKER) (test ysll=890) 330 K/CU MM 150-450 MEAN PLATELET VOLUME (BEAKER) (test jiad=846) 9.8 fL 9.4-12.3 NUCLEATED RED BLOOD CELLS (BEAKER) (test 0 /100 WBC 0-0 blej=031) NEUTROPHILS RELATIVE PERCENT (BEAKER) (test 73 % qnab=553) LYMPHOCYTES RELATIVE PERCENT (BEAKER) (test 18 % lyna=727) MONOCYTES RELATIVE PERCENT (BEAKER) (test 7 % ftzh=415) EOSINOPHILS RELATIVE PERCENT (BEAKER) (test 2 % mzba=212) BASOPHILS RELATIVE PERCENT (BEAKER) (test 0 % hbti=616) NEUTROPHILS ABSOLUTE COUNT (BEAKER) (test 5.43 K/ L 1.56-6.13 gtet=650) LYMPHOCYTES ABSOLUTE COUNT (BEAKER) (test 1.33 K/ L 1.18-3.74 fhhm=680) MONOCYTES ABSOLUTE COUNT (BEAKER) (test 0.48 K/ L 0.24-0.36 srej=916) EOSINOPHILS ABSOLUTE COUNT (BEAKER) (test 0.12 K/ L 0.04-0.36 csrm=618) BASOPHILS ABSOLUTE COUNT (BEAKER) (test 0.03 K/ L 0.01-0.08 onsz=976) IMMATURE GRANULOCYTES-RELATIVE PERCENT (BEAKER) 1 % 0-1 (test jjfo=9223) POCT-GLUCOSE [id number] 22:42:00 Test Item Value Reference Range Comments POC-GLUCOSE METER (BEAKER) 184 mg/dL 70-110 TESTED AT [address] (test djjf=2318) [place] [id number] POCT-GLUCOSE [id number] 18:51:00 Test Item Value Reference Range Comments POC-GLUCOSE METER (BEAKER) 220 mg/dL 70-110 TESTED AT [address] (test yrvm=7909) [place] [address] [id number] 16:07:00 Test Item Value Reference Range Comments MAGNESIUM (BEAKER) (test hndx=809) 1.8 mg/dL 1.6-2.6 [id number] 16:07:00 Test Item Value Reference Range Comments POTASSIUM (BEAKER) (test ryna=368) 4.1 meq/L 3.5-5.1 POCT-GLUCOSE [id number] 15:47:00 Test Item Value Reference Range Comments POC-GLUCOSE METER (BEAKER) 215 mg/dL 70-110 TESTED AT [address] (test uvqi=0610) [place] [id number] 10:16:00 Test Item Value Reference Range Comments MAGNESIUM (BEAKER) (test ooex=872) 1.7 mg/dL 1.6-2.6 POCT-GLUCOSE [id number] 09:25:00 Test Item Value Reference Range Comments POC-GLUCOSE METER (BEAKER) 156 mg/dL 70-110 TESTED AT [address] (test kboe=0632) [facility] [address] BASIC METABOLIC [id number] 06:32:00 Test Item Value Reference Range Comments SODIUM (BEAKER) (test 136 meq/L 136-145 airb=897) POTASSIUM (BEAKER) (test 3.7 meq/L 3.5-5.1 qzqr=882) CHLORIDE (BEAKER) (test 97 meq/L 98-107 nmfx=785) CO2 (BEAKER) (test 32 meq/L 22-29 nizf=822) BLOOD UREA NITROGEN 16 mg/dL 7-21 (BEAKER) (test rkge=477) CREATININE (BEAKER) (test 0.82 mg/dL 0.57-1.25 jkvn=137) GLUCOSE RANDOM (BEAKER) 114 mg/dL 70-105 (test jszj=873) CALCIUM (BEAKER) (test 7.8 mg/dL 8.4-10.2 fgru=788) EGFR (BEAKER) (test 71 mL/min/1.73 sq m ESTIMATED GFR IS NOT johi=0552) ACCURATE CREATININE CLEARANCE IN PREDICTING GLOMERULAR FILTRATION RATE. ESTIMATED GFR IS NOT APPLICABLE FOR DIALYSIS PATIENTS. CBC W/PLT COUNT & AUTO [id number] 05:42:00 Test Item Value Reference Range Comments WHITE BLOOD CELL COUNT (BEAKER) (test ozzx=153) 7.9 K/ L 3.5-10.5 RED BLOOD CELL COUNT (BEAKER) (test ujec=452) 3.12 M/ L 3.93-5.22 HEMOGLOBIN (BEAKER) (test gfve=791) 10.8 GM/DL 11.2-15.7 HEMATOCRIT (BEAKER) (test ucog=223) 32.6 % 34.1-44.9 MEAN CORPUSCULAR VOLUME (BEAKER) (test dqpa=869) 104.5 fL 79.4-94.8 MEAN CORPUSCULAR HEMOGLOBIN (BEAKER) (test 34.6 pg 25.6-32.2 adiv=608) MEAN CORPUSCULAR HEMOGLOBIN CONC (BEAKER) (test 33.1 GM/DL 32.2-35.5 yrhs=973) RED CELL DISTRIBUTION WIDTH (BEAKER) (test 13.0 % 11.7-14.4 uftc=108) PLATELET COUNT (BEAKER) (test kuds=013) 324 K/CU MM 150-450 MEAN PLATELET VOLUME (BEAKER) (test usqx=930) 9.7 fL 9.4-12.3 NUCLEATED RED BLOOD CELLS (BEAKER) (test 0 /100 WBC 0-0 vwiq=062) NEUTROPHILS RELATIVE PERCENT (BEAKER) (test 76 % swtg=363) LYMPHOCYTES RELATIVE PERCENT (BEAKER) (test 16 % ybhb=327) MONOCYTES RELATIVE PERCENT (BEAKER) (test 6 % pcbx=455) EOSINOPHILS RELATIVE PERCENT (BEAKER) (test 1 % ddns=793) BASOPHILS RELATIVE PERCENT (BEAKER) (test 1 % wdbi=852) NEUTROPHILS ABSOLUTE COUNT (BEAKER) (test 5.96 K/ L 1.56-6.13 nyfa=641) LYMPHOCYTES ABSOLUTE COUNT (BEAKER) (test 1.27 K/ L 1.18-3.74 zvhk=909) MONOCYTES ABSOLUTE COUNT (BEAKER) (test 0.46 K/ L 0.24-0.36 uxoz=576) EOSINOPHILS ABSOLUTE COUNT (BEAKER) (test 0.10 K/ L 0.04-0.36 zytu=465) BASOPHILS ABSOLUTE COUNT (BEAKER) (test 0.04 K/ L 0.01-0.08 rntx=028) IMMATURE GRANULOCYTES-RELATIVE PERCENT (BEAKER) 0 % 0-1 (test xosm=9898) POCT-GLUCOSE [id number] 22:05:00 Test Item Value Reference Range Comments POC-GLUCOSE METER (BEAKER) 255 mg/dL 70-110 TESTED AT [address] (test hksz=2518) [facility] [address] MR, BRAIN, WITHOUT [id number] 19:23:00Reason for exam:->StrokeWhat is the patient's sedation requirement?->No SedationFINAL REPORT MR, BRAIN, WITHOUT CONTRAST, MR, MRA, BRAIN, WITHOUT CONTRAST, MR, MRA, NECK, WITHOUT IV CONTRAST INDICATION: StrokeStroke TECHNIQUE: Multiplanar, multisequence MR images of the brain. 3-D time of flight MRA of the cranial and cervical circulation. 2-D time of flight MRA of the neck. 3D MIP angiographic post-processing was performed. Stenosis evaluation utilized NASCET criteria. COMPARISON: Noncontrast brain CT of the same date FINDINGS: MRI BRAIN : Apparent DTI hyperintensity within the right pontomedullary junction (axial DTI image 48) is present with decreased signal on ADC. No definite FLAIR abnormality, although, this may conceivably have been excluded dueto slice selection. The remainder of the brain [...] and the right measuring 1.8 cm. MRA BRAIN:Internal carotid arteries: Normal flowrelated enhancement without flow-limiting stenosisMiddle cerebral arteries: Normal flow related enhancement within the bilateral MCA M1-M2 segments without flow limiting stenosis Anterior cerebral arteries: Normal flow-related enhancement within the bilateral ANGELICA A1-A2 segments without flow limiting stenosisBasilar system: Normal flow-related enhancement within the bilateral V4 segments and the basilar artery without flow-limiting stenosis Posterior cerebral arteries: Normal flow-related enhancement within the bilateral PAPER MAKER P1-P2 segments without flow-limiting stenosis. 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 MRA NECK:Common carotid arteries: Unremarkable. Bifurcations: No flow-limiting stenosis. Cervical internal carotid arteries: No flow limiting stenosis.Vertebral arteries: Origins are not well-seen. No flow limiting stenosis within the visualized cervical vertebralarterial segments. Limited assessment of the V3 segment secondary to noncontrast technique. IMPRESSION: Tiny focus of restricted diffusion within the right pontomedullary junction concerning for subcentimeter acute infarct. No flow limiting stenosis in the major branch vessels of the cervical or cranial circulation. Bilateral T2 hyperintense parotid lesions as per above. Differential considerations include benign parotid lesions ( Warthin's tumors versus pleomorphic adenoma), although , correlation with nonemergent outpatient tissue sampling is recommended to exclude primary intraparotid malignancyand/or metastatic disease (which cannot be excluded by imaging). Signed: Caty Barger MDReport Verified Date/Time: 12/08/2018 19:23:05 Reading Location: [facility] C013V Neuro Reading Room MR , MRA, NECK, WITHOUT IV [id number] 19:23:00FINAL REPORT MR, BRAIN, WITHOUT CONTRAST, MR, MRA, BRAIN, WITHOUT CONTRAST, MR, MRA , NECK, WITHOUT IV CONTRAST INDICATION: StrokeStroke TECHNIQUE: Multiplanar, multisequence MR images of the brain. 3-D time of flight MRA of the cranial and cervical circulation. 2-D time of flight MRA of the neck. 3D MIP angiographic post-processing was performed. Stenosis evaluation utilized NASCET criteria. COMPARISON: Noncontrast brain CT of the same date FINDINGS: MRI BRAIN : Apparent DTI hyperintensity within the right pontomedullary junction (axial DTI image 48) is present with decreased signal on ADC. No definite FLAIR abnormality, although, this may conceivably have been excluded dueto slice selection. The remainder of the brain [...] and the right measuring 1.8 cm. MRA BRAIN:Internal carotid arteries: Normal flowrelated enhancement without flow-limiting stenosisMiddle cerebral arteries: Normal flow related enhancement within the bilateral MCA M1-M2 segments without flow limiting stenosis Anterior cerebral arteries: Normal flow-related enhancement within the bilateral ANGELICA A1-A2 segments without flow limiting stenosisBasilar system: Normal flow-related enhancement within the bilateral V4 segments and the basilar artery without flow-limiting stenosis Posterior cerebral arteries: Normal flow-related enhancement within the bilateral PAPER MAKER P1-P2 segments without flow-limiting stenosis. 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 MRA NECK:Common carotid arteries: Unremarkable. Bifurcations: No flow-limiting stenosis. Cervical internal carotid arteries: No flow limiting stenosis.Vertebral arteries: Origins are not well-seen. No flow limiting stenosis within the visualized cervical vertebralarterial segments. Limited assessment of the V3 segment secondary to noncontrast technique. IMPRESSION: Tiny focus of restricted diffusion within the right pontomedullary junction concerning for subcentimeter acute infarct. No flow limiting stenosis in the major branch vessels of the cervical or cranial circulation. Bilateral T2 hyperintense parotid lesions as per above. Differential considerations include benign parotid lesions ( Warthin's tumors versus pleomorphic adenoma), although , correlation with nonemergent outpatient tissue sampling is recommended to exclude primary intraparotid malignancyand/or metastatic disease (which cannot be excluded by imaging). Signed: Caty Barger MDReport Verified Date/Time: 12/08/2018 19:23:05 Reading Location: [facility] C013V Neuro Reading Room MR , MRA, BRAIN, WITHOUT [id number] 19:23:00Reason for exam:-> StrokeWhat is the patient's sedation requirement?->No SedationFINAL REPORT MR, BRAIN, WITHOUT CONTRAST, MR, MRA, BRAIN, WITHOUT CONTRAST, MR, MRA, NECK, WITHOUT IV CONTRAST INDICATION: StrokeStroke TECHNIQUE : Multiplanar, multisequence MR images of the brain. [...] although, this may conceivably have been excluded dueto slice selection. The remainder of the brain [...] and the right measuring 1.8 cm. MRA BRAIN:Internal carotid arteries: Normal flowrelated enhancement without flow-limiting stenosisMiddle cerebral arteries: Normal flow related enhancement within the bilateral MCA M1-M2 segments without flow limiting stenosis Anterior cerebral arteries: Normal flow-related enhancement within the bilateral ANGELICA A1-A2 segments without flow limiting stenosisBasilar system: Normal flow-related enhancement within the bilateral V4 segments and the basilar artery without flow-limiting stenosis Posterior cerebral arteries: Normal flow-related enhancement within the bilateral PAPER MAKER P1-P2 segments without flow-limiting stenosis. 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 MRA NECK:Common carotid arteries: Unremarkable. Bifurcations: No flow-limiting stenosis. Cervical internal carotid arteries: No flow limiting stenosis.Vertebral arteries: Origins are not well-seen. No flow limiting stenosis within the visualized cervical vertebralarterial segments. Limited assessment of the V3 segment secondary to noncontrast technique. IMPRESSION: Tiny focus of restricted diffusion within the right pontomedullary junction concerning for subcentimeter acute infarct. No flow limiting stenosis in the major branch vessels of the cervical or cranial circulation. Bilateral T2 hyperintense parotid lesions as per above. Differential considerations include benign parotid lesions ( Warthin's tumors versus pleomorphic adenoma), although , correlation with nonemergent outpatient tissue sampling is recommended to exclude primary intraparotid malignancyand/or metastatic disease (which cannot be excluded by imaging). Signed: Caty Barger Verified Date/Time: 12/08/2018 19:23:05 Reading Location: [address] Neuro Reading Room POCT-GLUCOSE [id number] 19:03:00 Test Item Value Reference Range Comments POC-GLUCOSE METER (BEAKER) 158 mg/dL 70-[address] [facility] [address] [facility] (test rans=1011) [facility] [address] [id number] 17:33:00 Test Item Value Reference Range Comments POTASSIUM (BEAKER) (test irit=611) 4.0 meq/L 3.5-5.1 [id number] 17:33:00 Test Item Value Reference Range Comments MAGNESIUM (BEAKER) (test leoh=110) 2.4 mg/dL 1.6-2.6 [id number] 14:55:00 Test Item Value Reference Range Comments RPR SCREEN (BEAKER) (test kbgv=276) Nonreactive Nonreactive [id number] 12:28:00 Test Item Value Reference Range Comments POTASSIUM (BEAKER) (test ilzg=769) 2.9 meq/L 3.5-5.1 TROPONIN [id number] 10:59:00 Test Item Value Reference Range Comments TROPONIN I (BEAKER) (test igrp=414) 0.01 ng/mL 0.00-0.03 Troponin I (TnI) levels must be interpreted in the context of the presenting symptoms and the clinical findings. Elevated TnI levels indicate myocardial damage, but are not specific for ischemic heart disease. Elevated TnI levels are seen in patients with other cardiac conditions (including myocarditis and congestive heart failure), and slight TnI elevations occur in patients with other conditions, including sepsis, renal failure, acidosis, acute neurological disease, and persistent tachyarrhythmia.[id number] 10:50:00 Test Item Value Reference Range Comments MAGNESIUM (BEAKER) (test ycbi=492) 1.8 mg/dL 1.6-2.6 HEMOGLOBIN [id number] 07:49:00 Test Item Value Reference Range Comments HEMOGLOBIN A1C (BEAKER) (test fiki=069) 8.1 % 4.3-6.1 HIV-1 ANTIGEN WITH HIV-1/2 [id number] 06:03:00 Test Item Value Reference Range Comments HIV-1 ANTIGEN WITH HIV 1\T\2 ANTIBODY (2) Nonreactive Nonreactive (BEAKER) (test ttyx=0341) [id number] 05:54:00 Test Item Value Reference Range Comments POTASSIUM (BEAKER) (test khjg=704) 2.8 meq/L 3.5-5.1 VITAMIN B12 AND [id number] 03:31:00 Test Item Value Reference Range Comments VITAMIN B12 (BEAKER) (test vnoy=241) 1168 pg/mL 213-816 FOLATE (BEAKER) (test xzkf=641) > ng/mL >=7.0 TSH/FREE T4 IF [id number] 03:24:00 Test Item Value Reference Range Comments THYROID STIMULATING HORMONE (BEAKER) (test 2.19 uIU/mL 0.35-4.94 akkh=244) BASIC METABOLIC [id number] 02:06:00 Test Item Value Reference Range Comments SODIUM (BEAKER) (test 132 meq/L 136-145 rxpm=289) POTASSIUM (BEAKER) (test 3.0 meq/L 3.5-5.1 Specimen slightly pxnr=072) hemolyzed CHLORIDE (BEAKER) (test 83 meq/L 98-107 vdpg=208) CO2 (BEAKER) (test 37 meq/L 22-29 orwx=603) BLOOD UREA NITROGEN 27 mg/dL 7-21 (BEAKER) (test ujpo=209) CREATININE (BEAKER) (test 1.33 mg/dL 0.57-1.25 Specimen slightly aejz=543) hemolyzed GLUCOSE RANDOM (BEAKER) 216 mg/dL 70-105 (test emeh=433) CALCIUM (BEAKER) (test 7.2 mg/dL 8.4-10.2 ejjz=529) EGFR (BEAKER) (test mL/min/1.73 sq m INSUFFICIENT CLINICAL DATA tacw=2254) TO CALCULATE ESTIMATED GFR. [id number] 02:04:00 Test Item Value Reference Range Comments MAGNESIUM (BEAKER) (test 1.5 mg/dL 1.6-2.6 Specimen slightly hemolyzed ccms=605) FastingLIPID [id number] 02:04:00 Test Item Value Reference Range Comments TRIGLYCERIDES (BEAKER) (test 135 mg/dL Specimen slightly hemolyzed mlfo=108) CHOLESTEROL (BEAKER) (test 151 mg/dL Specimen slightly hemolyzed phvd=797) HDL CHOLESTEROL (BEAKER) (test 43 mg/dL gubu=434) LDL CHOLESTEROL CALCULATED 81 mg/dL (BEAKER) (test jnwz=345) Triglyceride Reference Range: Low Risk <150 Borderline 150- 199 High Risk 200-499 Very High Risk >=500Cholesterol Reference Range: Low Risk <200 Borderline 200-239 High Risk > 240HDL Cholesterol Reference Range: Low Risk >=60 High Risk <40LDL Cholesterol Reference Range: Optimal <100 Near Optimal 100-129 Borderline 130-159 High 160-189 Very High >=190 FastingCBC W/PLT COUNT & AUTO [id number] 01:36:00 Test Item Value Reference Range Comments WHITE BLOOD CELL COUNT (BEAKER) (test mibt=134) 6.9 K/ L 3.5-10.5 RED BLOOD CELL COUNT (BEAKER) (test qzqr=583) 3.21 M/ L 3.93-5.22 HEMOGLOBIN (BEAKER) (test edrx=931) 11.2 GM/DL 11.2-15.7 HEMATOCRIT (BEAKER) (test dgyb=837) 32.4 % 34.1-44.9 MEAN CORPUSCULAR VOLUME (BEAKER) (test iksi=675) 100.9 fL 79.4-94.8 MEAN CORPUSCULAR HEMOGLOBIN (BEAKER) (test 34.9 pg 25.6-32.2 mrxq=961) MEAN CORPUSCULAR HEMOGLOBIN CONC (BEAKER) (test 34.6 GM/DL 32.2-35.5 ojrz=653) RED CELL DISTRIBUTION WIDTH (BEAKER) (test 12.9 % 11.7-14.4 ruim=782) PLATELET COUNT (BEAKER) (test kbmv=755) 346 K/CU MM 150-450 MEAN PLATELET VOLUME (BEAKER) (test acrz=206) 9.5 fL 9.4-12.3 NUCLEATED RED BLOOD CELLS (BEAKER) (test 0 /100 WBC 0-0 ghhq=884) NEUTROPHILS RELATIVE PERCENT (BEAKER) (test 82 % zusz=294) LYMPHOCYTES RELATIVE PERCENT (BEAKER) (test 11 % gksg=018) MONOCYTES RELATIVE PERCENT (BEAKER) (test 6 % lxbm=011) EOSINOPHILS RELATIVE PERCENT (BEAKER) (test 1 % bnbd=702) BASOPHILS RELATIVE PERCENT (BEAKER) (test 1 % awcm=645) NEUTROPHILS ABSOLUTE COUNT (BEAKER) (test 5.58 K/ L 1.56-6.13 kuhb=767) LYMPHOCYTES ABSOLUTE COUNT (BEAKER) (test 0.74 K/ L 1.18-3.74 xndx=668) MONOCYTES ABSOLUTE COUNT (BEAKER) (test 0.40 K/ L 0.24-0.36 qhcj=469) EOSINOPHILS ABSOLUTE COUNT (BEAKER) (test 0.06 K/ L 0.04-0.36 cfsn=659) BASOPHILS ABSOLUTE COUNT (BEAKER) (test 0.04 K/ L 0.01-0.08 ynfv=375) IMMATURE GRANULOCYTES-RELATIVE PERCENT (BEAKER) 0 % 0-1 (test kfng=8841) [id number] 23:06:00 Test Item Value Reference Range Comments ETHANOL (BEAKER) (test qmnb=734) < mg/dL <=10 TROPONIN [id number] 22:58:00 Test Item Value Reference Range Comments TROPONIN I (BEAKER) (test bhod=311) 0.01 ng/mL 0.00-0.03 Troponin I (TnI) levels must be interpreted in the context of the presenting symptoms and the clinical findings. Elevated TnI levels indicate myocardial damage, but are not specific for ischemic heart disease. Elevated TnI levels are seen in patients with other cardiac conditions (including myocarditis and congestive heart failure), and slight TnI elevations occur in patients with other conditions, including sepsis, renal failure, acidosis, acute neurological disease, and persistent tachyarrhythmia.BASIC METABOLIC [id number] 22:56:00 Test Item Value Reference Range Comments SODIUM (BEAKER) (test 132 meq/L 136-145 afhb=432) POTASSIUM (BEAKER) (test 2.2 meq/L 3.5-5.1 zmuv=374) CHLORIDE (BEAKER) (test 81 meq/L 98-107 agvi=978) CO2 (BEAKER) (test 36 meq/L 22-29 fone=935) BLOOD UREA NITROGEN 27 mg/dL 7-21 (BEAKER) (test mmoy=026) CREATININE (BEAKER) (test 1.43 mg/dL 0.57-1.25 xorg=072) GLUCOSE RANDOM (BEAKER) 190 mg/dL 70-105 (test ivxr=390) CALCIUM (BEAKER) (test 7.6 mg/dL 8.4-10.2 hzrf=890) EGFR (BEAKER) (test mL/min/1.73 sq m INSUFFICIENT CLINICAL DATA jhsi=1237) TO CALCULATE ESTIMATED GFR. URINALYSIS [id number] 22:41:00 Test Item Value Reference Range Comments RBC UA (BEAKER) (test gfzk=689) 1 /HPF WBC UA (BEAKER) (test slvf=189) < /HPF SQUAMOUS EPITHELIAL (BEAKER) (test sgmg=796) 7 /HPF HYALINE CASTS (BEAKER) (test drgi=817) 2 /LPF URINALYSIS WITH MICROSCOPIC IF [id number] 22:36:00 Test Item Value Reference Range Comments COLOR (BEAKER) (test sqgz=976) Yellow CLARITY (BEAKER) (test aayy=684) Hazy SPECIFIC GRAVITY UA (BEAKER) (test jvdj=156) 1.012 1.001-1.035 PH UA (BEAKER) (test fzxk=844) 6.0 5.0-8.0 PROTEIN UA (BEAKER) (test fywe=732) 200 mg/dL Negative GLUCOSE UA (BEAKER) (test nevy=548) Negative Negative KETONES UA (BEAKER) (test gxpf=860) Trace Negative BILIRUBIN UA (BEAKER) (test smbz=390) Negative Negative BLOOD UA (BEAKER) (test zvhu=904) Trace Negative NITRITE UA (BEAKER) (test xsso=402) Negative Negative LEUKOCYTE ESTERASE UA (BEAKER) (test kfuy=244) Negative Negative UROBILINOGEN UA (BEAKER) (test crus=561) 2.0 mg/dL 0.2-1.0 SOURCE(BEAKER) (test vczg=7765) BASIC METABOLIC [id number] 19:01:00 Test Item Value Reference Range Comments SODIUM (BEAKER) (test 134 meq/L 136-145 qgvp=320) POTASSIUM (BEAKER) (test 2.2 meq/L 3.5-5.1 jxcz=306) CHLORIDE (BEAKER) (test 82 meq/L 98-107 pqoh=270) CO2 (BEAKER) (test 35 meq/L 22-29 bifw=055) BLOOD UREA NITROGEN 25 mg/dL 7-21 (BEAKER) (test igrt=618) CREATININE (BEAKER) (test 1.36 mg/dL 0.57-1.25 kfxj=632) GLUCOSE RANDOM (BEAKER) 214 mg/dL 70-105 (test botc=214) CALCIUM (BEAKER) (test 7.4 mg/dL 8.4-10.2 eoto=217) EGFR (BEAKER) (test mL/min/1.73 sq m INSUFFICIENT CLINICAL DATA yytx=3995) TO CALCULATE ESTIMATED GFR. [id number] 19:01:00 Test Item Value Reference Range Comments MAGNESIUM (BEAKER) (test fpgo=949) 0.7 mg/dL 1.6-2.6 [id number] 18:58:00 Test Item Value Reference Range Comments PHOSPHORUS (BEAKER) (test zrpo=878) 3.3 mg/dL 2.3-4.7 HEPATIC FUNCTION [id number] 18:58:00 Test Item Value Reference Range Comments TOTAL PROTEIN (BEAKER) (test gnql=457) 6.0 gm/dL 6.0-8.3 ALBUMIN (BEAKER) (test hxfh=8245) 3.3 g/dL 3.5-5.0 BILIRUBIN TOTAL (BEAKER) (test rjew=187) 1.2 mg/dL 0.2-1.2 BILIRUBIN DIRECT (BEAKER) (test hvgs=667) 0.6 mg/dL 0.1-0.5 ALKALINE PHOSPHATASE (BEAKER) (test xckq=798) 74 U/L 40-150 AST (SGOT) (BEAKER) (test rwnl=501) 103 U/L 5-34 ALT (SGPT) (BEAKER) (test twzj=116) 36 U/L 6-55
--- OUTSIDE RECORDS SUMMARY | 2019-02-19 10:41 | XMS REPORT ---
[...] Medications Results No Known Results Summary Purpose [employer] Submission
--- OUTSIDE RECORDS SUMMARY | 2019-02-19 10:41 | XMS REPORT ---
[...] Medications Results No Known Results Summary Purpose [employer] Submission
--- OUTSIDE RECORDS SUMMARY | 2019-02-19 10:41 | XMS REPORT ---
[...] End Status Dosage System Date Date Cardura [facility] 02181821589 1 MG Orally Active 1 tablet Once a day Carvedilol [facility] 71534021561 12.5 MG Orally Active 1 tablet Twice daily Vitamin C [facility] 13668-[address] Orally Once a Active 1 tablet day Clonidine HCl [facility] 11033534971 0.1 MG Orally Active 1 tablet Once daily at bedtime Nitrofurantoin Monohyd [facility] 60890449103 100 MG Oral Active not Macro defined MetFORMIN HCl ER (OSM) ND 69093984861 1000 MG Orally October Active 1 tablet Twice daily 24, 2018 Simvastatin [facility] 00584448985 20 mg Orally Active 1 tablet Once a day Levothyroxine Sodium [facility] 90874435644 25 MCG Orally Active 1 tablet Once a day on an empty stomach in the morning Lisinopril [facility] 00905898256 20 mg Orally Active 1 tablet Once a day Potassium ND 0 Orally Once a Active 1 tablet day Hydrochlorothiazide [facility] 23788282729 12.5 MG Oral Active not defined Ondansetron [facility] 84180848899 4 MG Oral Active not defined Metformin HCl [facility] 18473192131 1000 MG Orally Active 1 tablet Twice a day with a meal Vitamin D-400 [facility] [address] Orally Once a Active not day defined Results No Known Results Summary Purpose [employer] Submission
[2019-02-19] MEDS ORDERED: NITROGLYCERIN 0.4 MG/TAB SL ONE (10:55)
[2019-02-19] MEDS ORDERED: ONDANSETRON 4 MG/2 ML VIAL ONE (11:02)
[2019-02-19 11:05] LABS: Absolute Lymphocytes (CBC) 1.8 K/uL (0.7-4.9); Basophils % 0.5 % (0-1.3); Hematocrit 42.6 % (36.0-45.0); Lymphocytes % 19.1 % (15.3-44.8); MPV 8.2 fL (7.6-11.3)
[2019-02-19 11:09] LABS: Protime INR 0.94
[2019-02-19 11:22] LABS: BUN Blood Urea Nitrogen 10 mg/dL (7-18); Bicarbonate 26 mmol/L (21-32); Glucose Level 172 mg/dL (74-106); NT PRO-BNP 15 pg/mL (<125); Potassium 3.8 mmol/L (3.5-5.1); Sodium Level 141 mmol/L (136-145); Troponin (Emerg Dept Use Only) < 0.02 ng/mL (0.0-0.045)
--- NOTE | 2019-02-19 11:44 | RAD REPORT ---
EXAM DESCRIPTION: RAD - Chest Single View - 02/19/2019 11:29 am CLINICAL HISTORY: CHEST PAIN Chest pain. COMPARISON: Chest Single View dated 12/07/2018; Chest Single View dated 10/16/2018; Chest Single View d ated 12/29/2017; Chest Pa And Lat (2 Views) dated 09/27/2017 FINDINGS: Portable technique limits examination quality. The lungs are grossly clear. The heart is normal in size. No displaced fractures. IMPRESSION: No acute intrathoracic process suspected.
--- NOTE | 2019-02-19 12:03 | RAD REPORT ---
EXAM DESCRIPTION: CT - Chest For Pe Angio - 02/19/2019 11:46 am CLINICAL HISTORY: Chest pain. CHEST PAIN COMPARISON: No comparisonsThorax W/ Con dated 05/21/2016Thorax W/ Con dated 05/21/2016; Chest For Pe Angio dated 11/21/2015 TECHNIQUE: CT angiogram of the pulmonary arteries was performed with MIP. All CT scans are performed using dose optimization technique as appropriate and may include automated exposure control or mA/KV adjustment according to patient size. FINDINGS: No evidence of pulmonary thromboembolism. No acute aortic finding demonstrated. The lungs are clear. No significant pericardial or pleural fluid. No concerning bony finding. IMPRESSION: No evidence of pulmonary thromboembolism. No acute lung findings.
--- NOTE | 2019-02-19 12:45 | ER ---
Nurse's Notes [facility] Name: Billie Botello Age: 58 yrs Sex: Female : 1960 Arrival Date: 02/19/2019 Time: 10:37 Bed 2 Private MD: Diagnosis: Chest pain, unspecified Presentation: 02/19 10:45 Presenting complaint: Patient states: left sided chest pain, vomiting since this iw morning, left hand went numb. Transition of care: patient was not received from another setting of care. Onset of symptoms was February 19, 2019. Risk Assessment: Do you want to hurt yourself or someone else? Patient reports no desire to harm self or others. Initial Sepsis Screen: Does the patient meet any 2 criteria? No. Patient's initial sepsis screen is negative. Does the patient have a suspected source of infection? No. Patient's initial sepsis screen is negative. Care prior to arrival: None. 10:45 Method Of Arrival: Wheelchair iw 10:45 Acuity: NIKA 2 iw Historical: - Allergies: 11:00 Bactrim; jl7 - Home Meds: 11:00 carvedilol 6.25 mg Oral tab 2 tabs 2 times per day [Active]; levothyroxine [Active]; jl7 lisinopril 20 mg Oral tab 1 tab once daily [Active]; metformin 1,000 mg Oral tab [Active]; simvastatin 20 mg Oral tab 1 tab once daily [Active]; aspirin Oral [Active]; - PMHx: 11:00 Diabetes - NIDDM; High Cholesterol; Hypertension; Pancreatitis; jl7 - PSHx: 11:00 Appendectomy; right wrist; jl7 - Immunization history:: Adult Immunizations unknown. - Social history:: Smoking status: Patient uses tobacco products, smokes one-half pack cigarettes per day, Patient uses alcohol, on a daily basis. "A pint/day and couple times a week.". - Ebola Screening: : No symptoms or risks identified at this time. - Family history:: not pertinent. - Hospitalizations: : No recent hospitalization is reported. Screenin:11 Abuse screen: Denies threats or abuse. Denies injuries from another. Nutritional jl7 screening: No deficits noted. Tuberculosis screening: No symptoms or risk factors identified. Fall Risk IV access (20 points). Total Arias Fall Scale indicates No Risk (0-24 pts). Assessment: 10:45 General: Appears in no apparent distress. uncomfortable, Behavior is cooperative, jl7 appropriate for age. Pain: Complains of pain in anterior aspect of left upper chest Pain radiates to left hand Pain currently is 8 out of 10 on a pain scale. Quality of pain is described as squeezing, Pain began 2 hours ago. Is continuous. Neuro: Level of Consciousness is awake, alert, obeys commands, Oriented to person, place, time, situation. Cardiovascular: Heart tones S1 S2 present Rhythm is sinus tachycardia Chest pain is described as Pain is 8 out of 10 on a pain scale. quality is squeezing, is located in left anterior chest wall radiates to left arm(s). Respiratory: Airway is patent Respiratory effort is even, unlabored, Respiratory pattern is regular, symmetrical, congestion auscultated bilaterally. GI: Reports nausea. : No signs and/or symptoms were reported regarding the genitourinary system. EENT: No signs and/or symptoms were reported regarding the EENT system. Derm: Skin is diaphoretic, Skin is normal, Skin temperature is cool. Musculoskeletal: No signs and/or symptoms reported regarding the musculoskeletal system. 11:26 Reassessment: Patient appears in no apparent distress at this time. Patient states jl7 feeling better. Patient states symptoms have improved. 12:30 Reassessment: Patient appears in no apparent distress at this time. No changes from jl7 previously documented assessment. Patient and/or family updated on plan of care and expected duration. Pain level reassessed. Patient is alert, oriented x 3, equal unlabored respirations, skin warm/dry/pink. 13:30 Reassessment: Patient appears in no apparent distress at this time. Patient and/or jl7 family updated on plan of care and expected duration. Pain level reassessed. Patient is alert, oriented x 3, equal unlabored respirations, skin warm/dry/pink. 14:30 Reassessment: Patient appears in no apparent distress at this time. No changes from jl7 previously documented assessment. Patient and/or family updated on plan of care and expected duration. Pain level reassessed. Patient is alert, oriented x 3, equal unlabored respirations, skin warm/dry/pink. Patient denies pain at this time. Vital Signs: 10:45 BP 144 / 93; Pulse 124; Resp 34; Pulse Ox 97% on R/A; Pain 8/10; jl7 11:24 BP 114 / 90; Pulse 103; Resp 16 S; Temp 98.5(O); Pulse Ox 96% on R/A; Pain 1/10; jl7 12:45 BP 135 / 96; Pulse 101; Resp 16 S; Pulse Ox 97% on R/A; jl7 14:30 BP 157 / 75; Pulse 64; Resp 16 S; Pulse Ox 98% on R/A; jl7 15:07 BP 162 / 107; Pulse 92; Resp 20; Temp 98.2(TE); Pulse Ox 95% on R/A; mh5 ED Course: 10:37 Patient arrived in ED. mr 10:43 Hola Rodriguez MD is Attending Physician. rn 10:45 Arm band placed on right wrist. jl7 10:46 Triage completed. iw 10:48 Initial lab(s) drawn, by pa, sent to lab. Inserted saline lock: 20 gauge in right aa5 forearm, using aseptic technique. Blood collected. 10:48 Missed attempt(s): 20 gauge in right forearm. Bleeding controlled, band aid applied, aa5 catheter tip intact. 10:54 Barbara Schmitt RN is Primary Nurse. jl7 10:58 EKG done, by case technician. reviewed by Hola Rodriguez MD. sm3 11:11 Patient maintains SpO2 saturation greater than 95% on room air. jl7 11:11 Patient has correct armband on for positive identification. Placed in gown. Bed in low jl7 position. Call light in reach. Side rails up X2. pipe machine operator on. Pulse ox on. NIBP on. Warm blanket given. 11:31 XRAY Chest (1 view) In Process Unspecified. EDMS 11:47 CT Chest For PE Angio In Process Unspecified. EDMS 12:44 Jim Gilman DO is Hospitalizing Provider. rn 14:40 No provider procedures requiring assistance completed. Patient admitted, IV remains in jl7 place. intact, No redness/swelling at site. Administered Medications: 10:58 Drug: Nitroglycerin 0.4 mg Route: Sublingual; jl7 11:15 Follow up: Response: No adverse reaction; Pain is decreased jl7 11:05 Drug: Zofran 4 mg Route: IVP; Site: right forearm; jl7 11:23 Follow up: Response: No adverse reaction; Nausea is decreased jl7 15:50 Drug: Phenergan 12.5 mg Route: IVP; Site: right forearm; iw Outcome: 12:44 Decision to Hospitalize by Provider. rn 16:32 Patient left the ED. iw Signatures: Dispatcher [employer] ADIA Aric Taylor rios Celia Anderson RN RN iw Hola Rodriguez MD MD rn Calderon, Audri, RN RN ishaan5 Rohini Wen 5 Barbara Schmitt RN RN jl7 Dolores Bermudez 3 Corrections: (The following items were deleted from the chart) 11:26 11:24 BP 114 / 90; Pulse 103bpm; Resp 96bpm; Spontaneous; Pulse Ox 96% RA; Temp 98.5F jl7 Oral; Pain /; jl7
--- NOTE | 2019-02-19 12:46 | EDPHYS ---
Physician Documentation [facility] Name: Billie Botello Age: 58 yrs Sex: Female : 1960 Arrival Date: 02/19/2019 Time: 10:37 Bed 2 Private MD: ED Physician Hola Rodriguez HPI: 02/19 11:19 This 58 yrs old Female presents to ER via Wheelchair with complaints of Chest rn Pain. 11:19 The patient or guardian reports chest pain that is located primarily in the anterior rn chest wall, left. Onset: this morning. The pain radiates to the left arm. The chest pain is described as a heaviness. Duration: The patient or guardian reports a single episode, that is still ongoing. Modifying factors: The symptoms are alleviated by nothing. the symptoms are aggravated by nothing. Severity of pain: At its worst the pain was moderate in the emergency department the pain is unchanged. The patient has not experienced similar symptoms in the past. Reports chest pain, pressure/tight, began this AM, radiates to left arm, assoc with nausea and vomiting. Denies abd pain.. Historical: - Allergies: 11:00 Bactrim; jl7 - Home Meds: 11:00 carvedilol 6.25 mg Oral tab 2 tabs 2 times per day [Active]; levothyroxine [Active]; jl7 lisinopril 20 mg Oral tab 1 tab once daily [Active]; metformin 1,000 mg Oral tab [Active]; simvastatin 20 mg Oral tab 1 tab once daily [Active]; aspirin Oral [Active]; - PMHx: 11:00 Diabetes - NIDDM; High Cholesterol; Hypertension; Pancreatitis; jl7 - PSHx: 11:00 Appendectomy; right wrist; jl7 - Immunization history:: Adult Immunizations unknown. - Social history:: Smoking status: Patient uses tobacco products, smokes one-half pack cigarettes per day, Patient uses alcohol, on a daily basis. "A pint/day and couple times a week.". - Ebola Screening: : No symptoms or risks identified at this time. - Family history:: not pertinent. - Hospitalizations: : No recent hospitalization is reported. ROS: 11:19 Constitutional: Negative for fever, chills, and weight loss, Eyes: Negative for injury, rn pain, redness, and discharge, Neck: Negative for injury, pain, and swelling, Cardiovascular: Negative for palpitations, and edema, Respiratory: Negative for shortness of breath, cough, wheezing, and pleuritic chest pain, Abdomen/GI: Negative for abdominal pain, diarrhea, and constipation, MS/Extremity: Negative for injury and deformity, Skin: Negative for injury, rash, and discoloration, Neuro: Negative for headache, weakness, numbness, tingling, and seizure. Exam: 11:19 Constitutional: This is a well developed, well nourished patient who is awake, alert, rn appears anxious and hyperventilating. Head/Face: Normocephalic, atraumatic. Eyes: Pupils equal round and reactive to light, extra-ocular motions intact. Lids and lashes normal. Conjunctiva and sclera are non-icteric and not injected. Cornea within normal limits. Periorbital areas with no swelling, redness, or edema. ENT: MMM Cardiovascular: tachycardic, regular, no murmur Respiratory: + mild tachypnea, clear bilateral breath sounds Abdomen/GI: soft, non-tender MS/ Extremity: Pulses equal, no cyanosis. Neurovascular intact. Full, normal range of motion. Equal circumference. Neuro: Awake and alert, GCS 15, oriented to person, place, time, and situation. Cranial nerves II-XII grossly intact. Motor strength 5/5 in all extremities. Sensory grossly intact. 11:46 ECG was reviewed by the Attending Physician. rn Vital Signs: 10:45 BP 144 / 93; Pulse 124; Resp 34; Pulse Ox 97% on R/A; Pain 8/10; jl7 11:24 BP 114 / 90; Pulse 103; Resp 16 S; Temp 98.5(O); Pulse Ox 96% on R/A; Pain 1/10; jl7 12:45 BP 135 / 96; Pulse 101; Resp 16 S; Pulse Ox 97% on R/A; jl7 14:30 BP 157 / 75; Pulse 64; Resp 16 S; Pulse Ox 98% on R/A; jl7 15:07 BP 162 / 107; Pulse 92; Resp 20; Temp 98.2(TE); Pulse Ox 95% on R/A; 5 MDM: 10:43 Patient medically screened. rn 12:43 Differential diagnosis: acute myocardial infarction, acute pericarditis, coronary rn artery disease gastroesophageal reflux disease (GERD), pleurisy, pneumonia, pneumothorax, pulmonary embolus, stable angina, unstable angina. HEART Score: History: Highly Suspicious (2), ECG: Normal (0), Age: > 45 and < 65 years (1), Risk Factors: > or = 3 Risk factors for atherosclerotic disease (2), Troponin: < or = 1 x Normal Limit (0). The patient was given aspirin in the Emergency Department. Data reviewed: vital signs, nurses notes, lab test result(s), EKG, radiologic studies, CT scan, plain films, and as a result, I will admit patient. Counseling: I had a detailed discussion with the patient and/or guardian regarding: the historical points, exam findings, and any diagnostic results supporting the discharge/admit diagnosis, lab results, radiology results, the need for further work-up and treatment in the hospital. ED course: Pt with chest pain resolved with nitro, nausea/vomiting/radiation to left arm, will admit for cardiac eval. CT PE neg. . 02/19 10:48 Order name: Basic Metabolic Panel; Complete Time: 11:36 rn 02/19 10:48 Order name: CBC with Diff; Complete Time: 11: rn 02/19 10:48 Order name: NT PRO-BNP; Complete Time: 11:36 rn 02/19 10:48 Order name: PT-INR; Complete Time: 11: rn 02/19 10:48 Order name: Troponin (emerg Dept Use Only); Complete Time: 11:36 rn 02/19 10:48 Order name: XRAY Chest (1 view); Complete Time: 12: rn 02/19 10:48 Order name: EKG; Complete Time: 10:50 rn 02/19 10:48 Order name: Cardiac monitoring; Complete Time: 10:58 rn 02/19 10:48 Order name: EKG - Nurse/Tech; Complete Time: 10:58 rn 02/19 11:36 Order name: CT Chest For PE Angio; Complete Time: 12: rn 02/19 13:47 Order name: CONS Physician Consult EDKY 02/19 10:48 Order name: IV Saline Lock; Complete Time: 10:58 rn 02/19 10:48 Order name: Labs collected and sent; Complete Time: 10:58 rn 02/19 10:48 Order name: O2 Per Protocol; Complete Time: 10:58 rn 02/19 10:48 Order name: O2 Sat Monitoring; Complete Time: 10:58 rn EC:46 Rate is 109 beats/min. Rhythm is regular. QRS [place] is Normal. [place] interval is normal. rn QRS interval is normal. QT interval is normal. No Q waves. T waves are Normal. No ST changes noted. Clinical impression: Normal ECG. Interpreted by me. Reviewed by me. Administered Medications: :58 Drug: Nitroglycerin 0.4 mg Route: Sublingual; jl7 11:15 Follow up: Response: No adverse reaction; Pain is decreased jl7 11:05 Drug: Zofran 4 mg Route: IVP; Site: right forearm; jl7 11:23 Follow up: Response: No adverse reaction; Nausea is decreased jl7 15:50 Drug: Phenergan 12.5 mg Route: IVP; Site: right forearm; iw Disposition: 02/19/19 12:44 Hospitalization ordered by Jim Gilman for Observation. Preliminary diagnosis is Chest pain, unspecified. - Bed requested for Telemetry/MedSurg (observation). - Status is Observation. iw - Condition is Stable. - Problem is new. - Symptoms have improved. UTI on Admission? No Signatures: Dispatcher [employer] EDMS Tiffany Scott Irene, RN RN iw Nieto, Roman, MD MD rn Leal, Jahala, RN RN jl7 Corrections: (The following items were deleted from the chart) 11:21 11:19 Constitutional: Negative for fever, chills, and weight loss, Eyes: Negative for rn injury, pain, redness, and discharge, Neck: Negative for injury, pain, and swelling, Cardiovascular: Negative for palpitations, and edema, Respiratory: Negative for shortness of breath, cough, wheezing, and pleuritic chest pain, Abdomen/GI: Negative for abdominal pain, nausea, vomiting, diarrhea, and constipation, MS/Extremity: Negative for injury and deformity, Skin: Negative for injury, rash, and discoloration, Neuro: Negative for headache, weakness, numbness, tingling, and seizure, rn 15:05 12:44 Hospitalization Ordered by Jim Gilman DO for Observation. Preliminary bd diagnosis is Chest pain, unspecified. Bed requested for Telemetry/MedSurg (observation). Status is Observation. Condition is Stable. Problem is new. Symptoms have improved. UTI on Admission? No. rn 16:32 15:05 02/19/2019 12:44 Hospitalization Ordered by Jim Gilman DO for Observation. iw Preliminary diagnosis is Chest pain, unspecified. Bed requested for Telemetry/MedSurg (observation). Status is Observation. Condition is Stable. Problem is new. Symptoms have improved. UTI on Admission? No. bd
--- NOTE | 2019-02-19 14:54 | P.HP ---
Certification for Inpatient Patient admitted to: Observation With expected LOS: <2 Midnights Patient will require the following post-hospital care: None Practitioner: I am a practitioner with admitting privileges, knowledge of patient current condition, hospital course, and medical plan of care. Services: Services provided to patient in accordance with Admission requirements found in Title 42 Section 412.3 of the Code of Federal Regulations <Fredo Medina - Last Filed: 02/19/19 14:49> Patient admitted to: Observation With expected LOS: <2 Midnights Patient will require the following post-hospital care: None Practitioner: I am a practitioner with admitting privileges, knowledge of patient current condition, hospital course, and medical plan of care. Services: Services provided to patient in accordance with Admission requirements found in Title 42 Section 412.3 of the Code of Federal Regulations <Jim Gilman - Last Filed: 02/19/19 17:31> Patient History Date of Service: 02/19/19 Primary Care Provider: [facility] Reason for admission: Chest pain History of Present Illness: This is a 58 y/o F patient that had sudden onset chest pressure with nausea that started while at rest this morning. Patient came in a couple hours after that to be evaluated as pain had not gone away. Patient was given nitroglycerin and aspirin with almost complete relief of symptoms. EKG and first round of cardiac enzymes were without acute findings. Patient has significant history such as HTN, DM, CVA, hyperlipidemia, and is a 1/2 ppd smoker with occasional ETOH use. Patient currently hemodynamically stable at this time. Home medications list reviewed: Yes - Past Medical/Surgical History Has patient received pneumonia vaccine in the past: No Diabetic: Yes -: HTN -: Hyperlipidemia -: Hypothyroidism -: GERD -: Tobacco abuse -: "stomach infection" -: renal insufficiency -: hypercholesterolemia -: -: R wrist Sx (metal plate) -: rectal polyps removed Psychosocial/ Personal History: The patient is single. She has 1 child. She works at [employer] - Family History Sister -: Lung disease, Diabetes Mother -: Heart disease, Cancer (Lymphoma) Notes: lymphoma Father -: Heart disease - Social History Smoking Status: Current every day smoker Counseled patient to stop smoking for: less than 10 minutes Smoking therapy provided: Yes Patient receptive to therapy: Yes Alcohol use: Yes CD- Drugs: No Caffeine use: Yes Place of Residence: Home <Vandana Medinashua - Last Filed: 02/19/19 14:49> Date of Service: 02/19/19 Home medications list reviewed: Yes - Past Medical/Surgical History Diabetic: Yes -: Diabetes mellitus type 2 in non insulin-dependent <Jim Gilman - Last Filed: 02/19/19 17:31> Allergies sulfamethoxazole [From Bactrim] Allergy (Intermediate, Verified 05/09/12 16:51) Rash trimethoprim [From Bactrim] Allergy (Intermediate, Verified 05/09/12 16:51) Rash Sulfa (Sulfonamide Antibiotics) Allergy (Verified 05/27/17 01:47) Unknown Home Medications: Carvedilol [Coreg*] 12.5 mg PO BID #60 tab 11/24/15 Levothyroxine Sodium [Unithroid] 25 mcg PO DAILY #30 tablet 11/24/15 Cholecalciferol (Vitamin D3) [Vitamin D 1000 Iu Tab*] 1 tab PO DAILY 05/27/17 Simvastatin 20 mg PO DAILY 05/27/17 Amlodipine [Norvasc*] 5 mg PO BID #60 tab 01/01/18 Aspirin [Aspirin EC 81 MG] 81 mg PO DAILY #90 tablet.dr 01/01/18 Cyanocobalamin (Vitamin B-12) [Vitamin B-12] 1,000 mcg PO DAILY #30 tablet 01/01 Glimepiride 1 mg PO DAILY #30 tablet 01/01/18 Nicotine [Nicoderm*] 21 mg TD DAILY #30 patch.td24 01/01/18 Pantoprazole [Protonix Tab] 40 mg PO DAILY #30 tab 01/01/18 Review of Systems General: Unremarkable Eyes: Unremarkable ENT: Unremarkable Respiratory: Unremarkable Cardiovascular: Chest Pain, As per HPI Gastrointestinal: Unremarkable Musculoskeletal: Unremarkable Integumentary: Unremarkable Neurological: Unremarkable Lymphatics: Unremarkable <ShylaalexanderVandana bacaFredo - Last Filed: 02/19/19 14:49> Physical Examination - Vital Signs Temperature: 98.5 F Blood Pressure: 114/90 Pulse: 103 Respirations: 16 Pulse Ox (%): 95 - Physical Exam General: Alert, In no apparent distress, Oriented x3, Cooperative HEENT: Normocephalic, PERRLA, Mucous membr. moist/pink, EOMI Neck: Supple, 2+ carotid pulse no bruit, JVD not distended, No Thyromegaly Respiratory: Clear to auscultation bilaterally, Normal air movement Cardiovascular: No edema, Normal pulses, Regular rate/rhythm, Normal S1 S2, No gallops, No rubs, No murmurs Capillary refill: <2 Seconds Gastrointestinal: Normal bowel sounds, Soft and benign, Non-distended, No ascites, No tenderness, No masses, No rebound, No guarding Musculoskeletal: No clubbing, No swelling, No contractures, No erythema, No tenderness, No warmth Integumentary: No rashes, No breakdown, No significant lesion, No tenderness/ swelling, No erythema, No warmth, No cyanosis Neurological: Normal gait, Normal speech, Normal strength at 5/5 x4 extr, Normal tone, Sensation intact, Cranial nerves 3-12 intact, Normal reflexes 2+, Normal affect Lymphatics: No axilla or inguinal lymphadenopathy - Studies Laboratory Data (last 24 hrs) 02/19/19 10:55: PT 11.1, INR 0.94 02/19/19 10:55: WBC 9.6, Hgb 14.9, Hct 42.6, Plt Count 363 02/19/19 10:55: Sodium 141, Potassium 3.8, BUN 10, Creatinine 0.90, Glucose 172 H <Fredo Medina - Last Filed: 02/19/19 14:49> - Physical Exam General: Alert, In no apparent distress, Oriented x3, Cooperative HEENT: Atraumatic, Normocephalic, PERRLA, Mucous membr. moist/pink Neck: Supple, No Thyromegaly Respiratory: Clear to auscultation bilaterally, Normal air movement Cardiovascular: Normal pulses, Regular rate/rhythm Gastrointestinal: Normal bowel sounds, Soft and benign, Non-distended, No tenderness, No masses, No rebound, No guarding Musculoskeletal: No contractures, No erythema, No tenderness, No warmth Integumentary: No tenderness/swelling, No erythema, No warmth, No cyanosis Neurological: Normal speech, Normal strength at 5/5 x4 extr, Normal tone, Normal affect - Studies Laboratory Data (last 24 hrs) 02/19/19 10:55: PT 11.1, INR 0.94 02/19/19 10:55: WBC 9.6, Hgb 14.9, Hct 42.6, Plt Count 363 02/19/19 10:55: Sodium 141, Potassium 3.8, BUN 10, Creatinine 0.90, Glucose 172 H <Jim Gilman - Last Filed: 02/19/19 17:31> Assessment and Plan - Problems (Diagnosis) (1) Chest pain, rule out acute myocardial infarction Onset Date: 05/30/17 Current Visit: Yes Status: Acute (2) Diabetes mellitus Onset Date: 12/30/17 Current Visit: Yes Status: Chronic Qualifiers: Diabetes mellitus type: type 2 Diabetes mellitus senior care insulin use: without watermelon inspector use Diabetes mellitus complication status: with other specified complication Qualified Code(s): E11.69 - Type 2 diabetes mellitus with other specified complication (3) Hyperlipidemia Onset Date: 11/24/15 Current Visit: Yes Status: Chronic Qualifiers: Hyperlipidemia type: mixed hyperlipidemia Qualified Code(s): E78.2 - Mixed hyperlipidemia (4) Hypertension Onset Date: 11/24/15 Current Visit: Yes Status: Chronic Qualifiers: Hypertension type: essential hypertension Qualified Code(s): I10 - Essential (primary) hypertension - Plan Patient will be continuously monitored in telemetry bed with serial troponin's drawn. Cardiology was consulted on case to assess if further intervention is needed. Labs and continued management of BP, cholesterol, and DM will also be completed Discharge Plan: Home Plan to discharge in: 24 Hours - Advance Directives Does patient have a Living Will: No Does patient have a Durable POA for Healthcare: No - Code Status/Comfort Care Code Status Assessed: Yes Code Status: Full Code Critical Care: No Time Spent Managing Pts Care (In Minutes): 45 <Fredo Medina - Last Filed: 02/19/19 14:49> Discharge Plan: Home Plan to discharge in: 24 Hours - Code Status/Comfort Care Code Status Assessed: Yes (Patient is full code) Physician Review Additional Text: Impression: Chest pain Hypertension Diabetes mellitus type 2 [id number] Hyperlipidemia GERD Tobacco abuse Hypothyroidism Obesity, BMI 31.8 Plan: Chest pain: Patient admitted for further evaluation. Continue telemetry and monitor cardiac enzymes. So far unremarkable. Will obtain echocardiogram to further evaluate. Will keep the patient NPO after midnight for possible cardiac evaluation. Cardiology has been consulted. Await further recommendation. Anticipate discharge within the next 24 hr pending clinical improvement and cleared by cardiology. Hypertension: Continue with home medication. Will monitor and adjust appropriately. Diabetes mellitus type 2 [id number]: Will provide insulin sliding scale. Monitor Accu-Cheks. Hyperlipidemia: Continue with medication. Will check fasting lipid panel. GERD: Continue with medication. Tobacco abuse: Continue to address lifestyle modification education and tobacco cessation. Will provide nicotine patch. Hypothyroidism: Continue home medication. Obesity, BMI 31.8: Will address lifestyle modification education. Time Spent Managing Pts Care (In Minutes): 55 <Jim Gilman - Last Filed: 02/19/19 17:31>
[2019-02-19] MEDS ORDERED: PROMETHAZINE 25 MG/ML VIAL ONE (15:45)
[2019-02-19 16:29] VITALS: BMI 31.7
[2019-02-19] MEDS ORDERED: GLUCAGON 1 MG/VIAL IM PRN (16:30)
[2019-02-19] MEDS ORDERED: NITROGLYCERIN 0.4 MG/TAB SL PRN (16:30)
[2019-02-19] MEDS: INSULIN -REGULAR HUMAN 50 UNIT/0.5 ML ML SQ SCH ×2 (16:30→20:20)
[2019-02-19] MEDS ORDERED: D50W 25 GM/50 ML SYRINGE IV PRN (16:30)
[2019-02-19 17:26] LABS: HDL Cholesterol 85 mg/dL (40-60); LDL Cholesterol, Calculated 133 (<130); Troponin I < 0.02 ng/mL (0.0-0.045)
[2019-02-19] MEDS: CARVEDILOL 12.5 MG TAB PO SCH (17:53)
[2019-02-19] MEDS: ONDANSETRON 4 MG/2 ML VIAL IV PRN (18:40)
[2019-02-19] MEDS ORDERED: MELATONIN 5 MG TABLET PO ONE ×2 (21:00→21:10)
[2019-02-19] MEDS ORDERED: ATORVASTATIN 10 MG TAB PO SCH (21:00)
[2019-02-19] MEDS ORDERED: TRAZODONE 50 MG TABLET ONE (21:02)
[2019-02-19] MEDS: ACETAMINOPHEN 500 MG TAB PO PRN (21:41)
[2019-02-19 22:05] LABS: Urine Appearance CLEAR; Urine Bilirubin NEGATIVE (NEG); Urine Blood NEGATIVE (NEG); Urine Color YELLOW; Urine Glucose NEGATIVE (NEG); Urine Protein 2+ (NEG); Urine Specific Gravity >=1.030 (1.005-1.030); Urine pH 7.5 (5.0-7.0)
[2019-02-19 22:07] LABS: Urine Microscopic Reflex ORDER UMIC
[2019-02-19 23:55] LABS: Urine Bacteria <20 /HPF (<20); Urine Culture Reflex Order NOT NEEDED; Urine RBC NONE SEEN /HPF (NONE SEEN)
[2019-02-20 04:28] LABS: Absolute Lymphocytes (CBC) 2.4 K/uL (0.7-4.9); Basophils % 0.3 % (0-1.3); Hematocrit 37.1 % (36.0-45.0); MPV 8.4 fL (7.6-11.3); RBC Red Blood Cell Count 3.67 M/uL (3.86-4.86)
[2019-02-20 05:00] LABS: Potassium 3.1 mmol/L (3.5-5.1)
[2019-02-20] MEDS: CARVEDILOL 12.5 MG TAB PO SCH (05:25)
[2019-02-20] MEDS: ONDANSETRON 4 MG/2 ML VIAL IV PRN (05:37)
[2019-02-20 05:43] LABS: Thyroid Stimulating Hormone 6.21 uIU/mL (0.360-3.740)
--- NOTE | 2019-02-20 07:28 | EKG ---
Test Date: 2019-02-19 Test Time: 10:49:22 Optical Engineering Technician: EMMANUEL MEASUREMENT RESULTS: Intervals: Rate: 109 AR: 184 QRSD: 70 QT: 326 QTc: 439 [place]: P: 77 AR: 184 QRS: 63 T: 66 INTERPRETIVE STATEMENTS: Sinus tachycardia Possible Anterior infarct, age undetermined Abnormal ECG Compared to ECG 12/07/2018 15:28:57 Sinus rhythm no longer present Prolonged QT interval no longer present Myocardial infarct finding still present Electronically Signed On 02-20-19 07:27:19 CDT by Randall Botello
[2019-02-20] MEDS: INSULIN -REGULAR HUMAN 50 UNIT/0.5 ML ML SQ SCH ×2 (07:30→12:02)
[2019-02-20] MEDS ORDERED: POTASSIUM CL SA 10 MEQ TAB PO ONE (08:13)
[2019-02-20] MEDS: ACETAMINOPHEN 500 MG TAB PO PRN (08:26)
[2019-02-20] MEDS ORDERED: ASPIRIN EC 81 MG TAB PO SCH (09:00)
[2019-02-20] MEDS ORDERED: NICOTINE 21 MG/PAT TD SCH (09:00)
[2019-02-20] MEDS ORDERED: LISINOPRIL 20 MG TAB PO SCH (09:00)
--- NOTE | 2019-02-20 11:06 | P.DS ---
Admission Date: 02/19/19 Discharge Date: 02/20/19 Primary Care Provider: Duarte cervantes Disposition: ROUTINE DISCHARGE Discharge Condition: GOOD Reason for Admission: Chest pain Consultations: Cardiology-Dr. Gold Procedures: CT Chest: FINDINGS: No evidence of pulmonary thromboembolism. No acute aortic finding demonstrated. The lungs are clear. No significant pericardial or pleural fluid. No concerning bony finding. IMPRESSION: No evidence of pulmonary thromboembolism. No acute lung findings. Medical Problem List: Chest pain suspect noncardiac Hypertension Diabetes mellitus type 2 [id number] Hyperlipidemia GERD Tobacco abuse Hypothyroidism History CVA Obesity, BMI 31.8 Brief History of Present Illness: 58-year-old female presented emergency room with chest pain. Patient with underlying hypertension, diabetes, hyperlipidemia and prior CVA. Patient was evaluated the emergency room. Initial cardiac enzymes unremarkable. The patient was admitted for further evaluation. Cardiology consulted. Hospital Course: Patient presented with chest pain. Initial CT chest unremarkable. Cardiac enzymes unremarkable. Lipid panel elevated with LDL of 133. Patient seen and evaluated by Cardiology. Cardiology reviewed prior information. Patient had heart catheterization in May of 2017. Heart catheterization was unremarkable. Cardiology suspects chest pain likely noncardiac. No intervention needed at this time. Recommendation is for the patient to follow up with cardiology in 1 week to follow up this hospitalization. Cardiology to further address as an outpatient. At discharge she will continue with aspirin 81 mg daily. Patient may utilize nitroglycerin as needed for chest pain. Patient may also benefit with GI evaluation as an outpatient, as she may need EGD to further address. Patient with underlying hypertension. This has remained stable. At discharge she will continue with her home medications-Norvasc 5 mg 1 pill twice daily and carvedilol 12.5 mg 1 pill twice daily. Recommend blood pressures to remain less than 150/80. Further adjustment can be done by her PCP. Patient with diabetes mellitus type 2, eew-sryiewb-tqkjjekda. A1c well controlled at 6.6. At discharge she will continue with her current medication- glimepiride 1 mg daily. Recommend maintain blood sugars less 140 fasting and less than 200 after meals. Further adjustment can be done by her PCP. Patient with hyperlipidemia. Total cholesterol 244, LDL 133. Patient needs better control of her lipids. Patient previously on Zocor 20 mg daily. Will change to Lipitor. At discharge she will continue with Lipitor 40 mg daily. Recommend lifestyle modification education with ADA diet. Recommend to recheck lab-fasting lipid panel in 4-6 weeks to monitor her progress. Further adjustment in medication can be done by her PCP. Patient with GERD. Patient will continue with Protonix 40 mg daily. Recommend lifestyle modification education. Recommend follow up with GI as an outpatient to further address. Patient may require EGD to further evaluate. Patient with tobacco abuse. Tobacco cessation addressed in detail. Patient will provided nicotine patch to help with cessation. Education on cessation will be provided. Patient with hypothyroidism. Tsh and free T4 appear stable. At discharge she will continue with her medication-levothyroxine 25 mcg daily. Patient with history of CVA. At discharge she will continue with aspirin 81 mg daily. Patient likely with underlying obstructive sleep apnea. Patient with obesity BMI 31.8. Lifestyle modification education addressed. Recommend evaluation with sleep study to furher evaluate. Vital Signs/Physical Exam: Temp Pulse Resp BP Pulse Ox 98.4 F 71 18 124/76 94 02/20/19 08:00 02/20/19 08:16 02/20/19 08:00 02/20/19 08:16 02/20/19 08:00 General: Alert, In no apparent distress, Oriented x3, Cooperative HEENT: Atraumatic Neck: Supple Respiratory: Clear to auscultation bilaterally, Normal air movement Cardiovascular: Normal pulses, Regular rate/rhythm Gastrointestinal: Normal bowel sounds, Soft and benign, Non-distended, No tenderness, No masses, No rebound, No guarding Musculoskeletal: No erythema, No tenderness, No warmth Integumentary: No tenderness/swelling, No erythema, No warmth, No cyanosis Neurological: Normal speech, Normal strength at 5/5 x4 extr, Normal tone, Normal affect Laboratory Data at Discharge: WBC 6.3 K/uL (4.3-10.9) D 02/20/19 03:55 Hgb 12.5 g/dL (12.0-15.0) 02/20/19 03:55 Hct 37.1 % (36.0-45.0) 02/20/19 03:55 Plt Count 266 K/uL (152-406) D 02/20/19 03:55 PT 11.1 SECONDS (9.5-12.5) 02/19/19 10:55 INR 0.94 02/19/19 10:55 Sodium 140 mmol/L (136-145) 02/20/19 03:55 Potassium 3.1 mmol/L (3.5-5.1) L 02/20/19 03:55 BUN 11 mg/dL (7-18) 02/20/19 03:55 Creatinine 0.90 mg/dL (0.55-1.3) 02/20/19 03:55 Glucose 102 mg/dL (74-106) 02/20/19 03:55 Troponin I < 0.02 ng/mL (0.0-0.045) 02/19/19 16:57 Triglycerides 128 mg/dL (<150) 02/19/19 16:57 Cholesterol 244 mg/dL (<200) H 02/19/19 16:57 HDL Cholesterol 85 mg/dL (40-60) H 02/19/19 16:57 Cholesterol/HDL Ratio 2.87 02/19/19 16:57 Home Medications: Carvedilol [Coreg*] 12.5 mg PO BID #60 tab 11/24/15 Levothyroxine Sodium [Unithroid] 25 mcg PO DAILY #30 tablet 11/24/15 Cholecalciferol (Vitamin D3) [Vitamin D 1000 Iu Tab*] 1 tab PO DAILY 05/27/17 Amlodipine [Norvasc*] 5 mg PO BID #60 tab 01/01/18 Aspirin [Aspirin EC 81 MG] 81 mg PO DAILY #90 tablet. 01/01/18 Cyanocobalamin (Vitamin B-12) [Vitamin B-12] 1,000 mcg PO DAILY #30 tablet 01/01 Glimepiride 1 mg PO DAILY #30 tablet 01/01/18 Nicotine [Nicoderm*] 21 mg TD DAILY #30 patch.td24 01/01/18 Pantoprazole [Protonix Tab*] 40 mg PO DAILY #30 tab 01/01/18 Atorvastatin Calcium [Lipitor] 40 mg PO BEDTIME #30 tab 02/20/19 Nicotine [Nicoderm*] 21 mg TD DAILY #30 patch.td24 02/20/19 Nitroglycerin 0.4 mg SL SEECOM #30 tab.subl 02/20/19 New Medications: Atorvastatin Calcium [Lipitor] 40 mg PO BEDTIME #30 tab Nicotine [Nicoderm*] 21 mg TD DAILY #30 patch.td24 Nitroglycerin 0.4 mg SL SEECOM #30 tab.subl Patient Discharge Instructions: 1. Recommend follow up with PCP in 1 week to follow up hospitalization. 2. Patient presented with chest pain. Initial CT chest unremarkable. Cardiac enzymes unremarkable. Lipid panel elevated with LDL of 133. Patient seen and evaluated by Cardiology. Cardiology reviewed prior information. Patient had heart catheterization in May of 2017. Heart catheterization was unremarkable. Cardiology suspects chest pain likely noncardiac. No intervention needed at this time. Recommendation is for the patient to follow up with cardiology in 1 week to follow up this hospitalization. Cardiology to further address as an outpatient. At discharge she will continue with aspirin 81 mg daily. Patient may utilize nitroglycerin as needed for chest pain. Patient may also benefit with GI evaluation as an outpatient, as she may need EGD to further address. 3. Patient with underlying hypertension. This has remained stable. At discharge she will continue with her home medications-Norvasc 5 mg 1 pill twice daily and carvedilol 12.5 mg 1 pill twice daily. Recommend blood pressures to remain less than 150/80. Further adjustment can be done by her PCP. 4. Patient with diabetes mellitus type 2, [id number]. A1c well controlled at 6.6. At discharge she will continue with her current medication-glimepiride 1 mg daily. Recommend maintain blood sugars less 140 fasting and less than 200 after meals. Further adjustment can be done by her PCP. 5. Patient with hyperlipidemia. Total cholesterol 244, LDL 133. Patient needs better control of her lipids. Patient previously on Zocor 20 mg daily. Will change to Lipitor. At discharge she will continue with Lipitor 40 mg daily. Recommend lifestyle modification education with ADA diet. Recommend to recheck lab- fasting lipid panel in 4-6 weeks to monitor her progress. Further adjustment in medication can be done by her PCP. 6. Patient with GERD. Patient will continue with Protonix 40 mg daily. Recommend lifestyle modification education. Recommend follow up with GI as an outpatient to further address. Patient may require EGD to further evaluate. 7. Patient with tobacco abuse. Tobacco cessation addressed in detail. Patient will provided nicotine patch to help with cessation. Education on cessation will be provided. 8. Patient with hypothyroidism. Tsh and free T4 appear stable. At discharge she will continue with her medication-levothyroxine 25 mcg daily. 9. Patient with history of CVA. At discharge she will continue with aspirin 81 mg daily. 10. Patient likely with underlying obstructive sleep apnea. Patient with obesity BMI 31.8. Lifestyle modification education addressed. Recommend evaluation with sleep study to furher evaluate. Diet: ADA Activity: Ad sunitha Time spent managing pt's care (in minutes): 55
[2019-02-20 11:57] VITALS: BP 128/84; TEMP 98; O2SAT 98
--- NOTE | 2019-02-20 12:21 | EKG ---
Test Date: 2019-02-20 Test Time: 07:22:57 Nutrition Partner: EMMANUEL MEASUREMENT RESULTS: Intervals: Rate: 70 MA: 198 QRSD: 78 QT: 450 QTc: 486 [place]: P: 44 MA: 198 QRS: 17 T: 33 INTERPRETIVE STATEMENTS: Normal sinus rhythm Prolonged QT Abnormal ECG Compared to ECG 02/19/2019 10:49:22 Prolonged QT interval now present Sinus tachycardia no longer present Myocardial infarct finding no longer present Electronically Signed On 02-20-19 12:20:13 CDT by Randall Botello
--- NOTE | 2019-02-20 14:23 | CON ---
Date of Consultation: 02/20/2019 Reason For Consultation: Chest pain. History Of Present Illness: Ms. Botello is a 58-year-old woman, who had a history of normal heart cathet erization less than 2 years ago. Normal echocardiogram in the past year. Had a negative carotid in 2017. At that time, she had a stroke. She has a history of diabetes, pancreatitis, hypertension, dy slipidemia, and hypothyroidism, as well as obesity. She came in with nausea, vomiting, midepigastric chest pain. No PND, orthopnea, pedal edema, palpitation, or syncope. She has already had a negativ e cardiac workup so far. Echocardiogram is pending. CPKs, MBs, troponin, BNP is negative. She is s till nauseated but no chest pain. Allergies: SULFA AND TRAZODONE. Review of Systems: Negative. Social History: Negative. Family History: Negative. Medications: At home include Coreg, Zocor, Synthroid, lisinopril, metformin, and aspirin. Ms. Botello h as not been taking her medication. She is run out of her medicine. She normally sees Dr. Yo at [facility]. Physical Examination: Vital Signs: Stable, afebrile. HEENT: Negative. Neck: Supple with no bruit. Chest: Clear. Cardiac: Revealed a regular rhythm and rate. No murmurs, gallops, or rubs. Abdomen: Benign. Extremities: Revealed no clubbing, cyanosis, or edema. Diagnostic Data: Within normal limit. Impression And Plan: Symptoms definitely noncardiac. Has had a normal stress test, normal echo, nor mal catheterization in 2017. Her CTA is negative. Her blood work is negative from a heart standpoin t. I think we are dealing with mid-epigastric viral gastroenteritis issue with nausea and vomiting. She certainly could have beginning of pancreatitis. Her other problems including diabetes, hyperten rigo, dyslipidemia, and hypothyroidism are stable. We will see what her echo shows, but if it is neg ative, she can go home from my standpoint. KIM/RAJINDER Voice ID: [id number] Report ID: [id number]
--- NOTE | 2019-02-20 16:23 | ECHO ---
HEIGHT: 5 ft 4 in WEIGHT: 185 lb 0 oz DATE OF STUDY: 02/20/[address]: Jim Gilman DO 2-DIMENSIONAL: YES M.MODE: YES DOPPLER: YES COLOR FLOW: YES TDS: PORTABLE: DEFINITY: BUBBLE STUDY: DIAGNOSIS: CHEST PAIN, HX HYPERTENSION, DIABETES AND HYPOTHYRODISM CARDIAC HISTORY: CATHERIZATION: NO SURGERY: NO PROSTHETIC VALVE: NO PACEMAKER: NO MEASUREMENTS (cm) DIASTOLIC (NORMALS) SYSTOLIC (NORMALS) IVSd 0.8 (0.6-1.2) LA Diam 2.6 (1.9-4.0) LVEF 62% LVIDd 4.2 (3.5-5.7) LVIDs 2.8 (2.0-3.5) %FS 33% LVPWd 1.0 (0.6-1.2) Ao Diam 2.8 (2.0-3.7) 2 DIMENSIONAL ASSESSMENT: RIGHT ATRIUM: NORMAL LEFT ATRIUM: NORMAL RIGHT VENTRICLE: NORMAL LEFT VENTRICLE: NORMAL TRICUSPID VALVE: NORMAL MITRAL VALVE: NORMAL PULMONIC VALVE: NORMAL AORTIC VALVE: NORMAL PERICARDIAL EFFUSION: NONE AORTIC ROOT: NORMAL LEFT VENTRICULAR WALL MOTION: NORMAL DOPPLER/COLOR FLOW: NORMAL COMMENTS: NORMAL TWO DIMENSIONAL ECHOCARDIOGRAM WITH DOPPLER. NO WALL MOTION ABNORMALITY. MILD TRICUSPID REGURGIATION. TECHNOLOGIST: CAPRI RICKS
[2019-02-20] MEDS ORDERED: ENOXAPARIN 40 MG/0.4 ML SQ SCH (17:00)
== END 2019-02-20 14:40 | disposition home or self-care (01) ==
LOC: ER 10:35 → ERHOLD 13:45 → 4TH 15:33
PROVIDERS: ADMIT Family Medicine; ATTEND Family Medicine
DX: R07.9 Chest pain, unspecified (principal); I10 Essential (primary) hypertension; E11.9 Type 2 diabetes mellitus without complications; E78.5 Hyperlipidemia, unspecified; K21.9 Gastro-esophageal reflux disease without esophagitis; F17.210 Nicotine dependence, cigarettes, uncomplicated; E03.9 Hypothyroidism, unspecified; Z86.73 Personal history of transient ischemic attack (TIA), and cerebral infarction without residual deficits
CPT/HCPCS: 36415; 71045; 71275; 80048; 80061; 81003; 81015; 82962; 83036; 83880; 84132; 84439; 84443; 84484; 85025; 85610; 93005; 93306; 96374; 96375; 99285; G0378; J2405; J2550; Q9967

== ENCOUNTER 2019-04-01 06:06 | Emergency (ER) | payer SELFPAY ==
[2019-04-01] MEDS ORDERED: HYDROCODONE/APAP 5/325 MG TAB ONE (06:37)
--- NOTE | 2019-04-01 07:11 | ER ---
Nurse's Notes [facility] Name: Billie Botello Age: 58 yrs Sex: Female : 1960 Arrival Date: 04/01/2019 Time: 06:08 Bed 8 Private MD: Diagnosis: Pain in left knee Presentation: 04/01 06:15 Presenting complaint: Patient states: 2 days ago her L knee cap popped out and she aa1 popped it back in and then it popped out again this morning when she got out of bed. C/O L knee pain 04/12. Transition of care: patient was not received from another setting of care. Onset of symptoms was March 30, 2019. Risk Assessment: Do you want to hurt yourself or someone else? Patient reports no desire to harm self or others. Initial Sepsis Screen: Does the patient meet any 2 criteria? No. Patient's initial sepsis screen is negative. Does the patient have a suspected source of infection? No. Patient's initial sepsis screen is negative. Care prior to arrival: None. 06:15 Method Of Arrival: Ambulatory aa1 06:15 Acuity: NIKA 4 aa1 Triage Assessment: 06:22 General: Appears in no apparent distress. comfortable, Behavior is calm, cooperative, aa1 appropriate for age. Historical: - Allergies: 06:22 Bactrim; aa1 - Home Meds: 06:22 Aspirin Oral [Active]; carvedilol 6.25 mg Oral tab 2 tabs 2 times per day [Active]; aa1 levothyroxine [Active]; lisinopril 20 mg Oral tab 1 tab once daily [Active]; metformin 1,000 mg Oral tab [Active]; simvastatin 20 mg Oral tab 1 tab once daily [Active]; - PMHx: 06:22 Diabetes - NIDDM; High Cholesterol; Hypertension; Pancreatitis; aa1 - PSHx: 06:22 Appendectomy; right wrist; aa1 - Immunization history:: Flu vaccine is up to date. - Social history:: Smoking status: Patient uses tobacco products, 2 packs/week. - Ebola Screening: : No symptoms or risks identified at this time. Screenin:33 Abuse screen: Denies threats or abuse. Denies injuries from another. Nutritional lp1 screening: No deficits noted. Tuberculosis screening: No symptoms or risk factors identified. Fall Risk None identified. Assessment: 06:26 General: Appears uncomfortable, Behavior is appropriate for age. Pain: Complains of lp1 pain in medial aspect of left knee and left knee Pain currently is 10 out of 10 on a pain scale. Quality of pain is described as sharp, Aggravated by increased activity, repositioning, weight bearing. Neuro: No deficits noted. Cardiovascular: No deficits noted. Respiratory: No deficits noted. GI: No deficits noted. : No deficits noted. EENT: No deficits noted. Derm: Skin is pink, warm \T\ dry. Musculoskeletal: Range of motion: limited in left knee Reports pain in medial aspect of left knee. 07:43 Reassessment: Patient appears in no apparent distress at this time. Patient and/or ph family updated on plan of care and expected duration. Pain level reassessed. Patient is alert, oriented x 3, equal unlabored respirations, skin warm/dry/pink. Knee immobilizer placed to L knee, pt instructed to follow up w/ ortho and provided work note. Vital Signs: 06:22 BP 144 / 97; Pulse 115; Resp 18; Temp 98.5; Pulse Ox 99% on R/A; Weight 88.45 kg; aa1 Height 5 ft. 4 in. (162.56 cm); Pain 10/10; 06:39 Pulse 97; Pulse Ox 100% on R/A; lp1 07:48 BP 132 / 87; Pulse 94; Resp 18; Temp 98.0; Pulse Ox 100% on R/A; ph 06:22 Body Mass Index 33.47 (88.45 kg, 162.56 cm) aa1 ED Course: 06:08 Patient arrived in ED. ds1 06:10 Ember Syed, TEE is Primary Nurse. lp1 06:10 Eleno Shrestha NP is PHCP. pm1 06:10 Tomas Castano MD is Attending Physician. pm1 06:20 Triage completed. aa1 06:22 Arm band placed on right wrist. aa1 06:33 Patient has correct armband on for positive identification. lp1 06:57 Knee Left 3 View XRAY In Process Unspecified. EDMS 07:49 No provider procedures requiring assistance completed. Patient did not have IV access ph during this emergency room visit. Administered Medications: 06:38 Drug: [place] 5 mg-325 mg 1 tabs {Note: RASS 0.} Route: PO; lp1 07:43 Follow up: Response: No adverse reaction; Pain is decreased; RASS: Alert and Calm (0) ph Outcome: 07:11 Discharge ordered by MD. pm1 07:49 Discharged to home ambulatory. ph 07:49 Condition: good 07:49 Discharge instructions given to patient, Instructed on discharge instructions, follow up and referral plans. medication usage, Demonstrated understanding of instructions, follow-up care, medications, Prescriptions given X 1. 07:49 Patient left the ED. ph Signatures: Dispatcher [employer] EDMS Fiona Santiago RN RN aa1 Peggy Marquez ds1 Ember Syed RN RN lp1 Marybeth Andrade RN RN Eleno Shrestha NP EARLY CHILDHOOD ASSOCIATE pm1
--- NOTE | 2019-04-01 07:12 | EDPHYS ---
Physician Documentation [facility] Name: Billie Botello Age: 58 yrs Sex: Female : 1960 Arrival Date: 04/01/2019 Time: 06:08 Bed 8 Private MD: ED Physician Tomas Castano HPI: 04/01 06:33 This 58 yrs old Female presents to ER via Ambulatory with complaints of Left pm1 Knee Pain. 06:33 The patient presents with pain. The complaints affect the left knee. Context: The pm1 problem was sustained at home, resulted from an unknown cause, the patient can fully bear weight, the patient is able to ambulate, uses a brace, Has been told at least 6 years ago by orthopedics that she requires left knee surgery. 06:33 Reports that left knee cap popped out 2 days ago and occurred this again this AM. pm1 Patient popped it back in. Patient denies any trauma. Historical: - Allergies: 06:22 Bactrim; aa1 - Home Meds: 06:22 Aspirin Oral [Active]; carvedilol 6.25 mg Oral tab 2 tabs 2 times per day [Active]; aa1 levothyroxine [Active]; lisinopril 20 mg Oral tab 1 tab once daily [Active]; metformin 1,000 mg Oral tab [Active]; simvastatin 20 mg Oral tab 1 tab once daily [Active]; - PMHx: 06:22 Diabetes - NIDDM; High Cholesterol; Hypertension; Pancreatitis; aa1 - PSHx: 06:22 Appendectomy; right wrist; aa1 - Immunization history:: Flu vaccine is up to date. - Social history:: Smoking status: Patient uses tobacco products, 2 packs/week. - Ebola Screening: : No symptoms or risks identified at this time. ROS: 06:41 Constitutional: Negative for fever, chills, and weight loss, Eyes: Negative for injury, pm1 pain, redness, and discharge, ENT: Negative for injury, pain, and discharge, Neck: Negative for injury, pain, and swelling, Cardiovascular: Negative for chest pain, palpitations, and edema, Respiratory: Negative for shortness of breath, cough, wheezing, and pleuritic chest pain, Abdomen/GI: Negative for abdominal pain, nausea, vomiting, diarrhea, and constipation, Back: Negative for injury and pain, : Negative for injury, bleeding, discharge, and swelling. 06:41 Skin: Negative for injury, rash, and discoloration, Neuro: Negative for headache, weakness, numbness, tingling, and seizure. 06:41 MS/extremity: Positive for pain, of the left knee, Negative for decreased range of motion, deformity. Exam: 06:41 Constitutional: This is a well developed, well nourished patient who is awake, alert, pm1 and in no acute distress. Head/Face: Normocephalic, atraumatic. Chest/axilla: Normal chest wall appearance and motion. Nontender with no deformity. No lesions are appreciated. Cardiovascular: Regular rate and rhythm with a normal S1 and S2. No gallops, murmurs, or rubs. Normal PMI, no JVD. No pulse deficits. Respiratory: Lungs have equal breath sounds bilaterally, clear to auscultation and percussion. No rales, rhonchi or wheezes noted. No increased work of breathing, no retractions or nasal flaring. Back: No spinal tenderness. No costovertebral tenderness. Full range of motion. Skin: Warm, dry with normal turgor. Normal color with no rashes, no lesions, and no evidence of cellulitis. 06:41 Musculoskeletal/extremity: Extremities: grossly normal except: noted in the medial aspect of left knee: tenderness, There is no evidence of decreased ROM, deformity, swelling, ROM: full passive range of motion, in the left knee, Circulation is intact in all extremities. Sensation intact. 06:41 Neuro: Orientation: is normal, Motor: is normal, moves all fours, Sensation: is normal, no obvious gross deficits. Vital Signs: 06:22 BP 144 / 97; Pulse 115; Resp 18; Temp 98.5; Pulse Ox 99% on R/A; Weight 88.45 kg; aa1 Height 5 ft. 4 in. (162.56 cm); Pain 10/10; 06:39 Pulse 97; Pulse Ox 100% on R/A; lp1 07:48 BP 132 / 87; Pulse 94; Resp 18; Temp 98.0; Pulse Ox 100% on R/A; ph 06:22 Body Mass Index 33.47 (88.45 kg, 162.56 cm) aa1 MDM: 06:10 Patient medically screened. pm1 07:09 Data reviewed: vital signs. Data interpreted: Pulse oximetry: on room air is 100 %. pm1 Interpretation: normal. Counseling: I had a detailed discussion with the patient and/or guardian regarding: the historical points, exam findings, and any diagnostic results supporting the discharge/admit diagnosis, radiology results, the need for outpatient follow up, for definitive care, a orthopedic surgeon, to return to the emergency department if symptoms worsen or persist or if there are any questions or concerns that arise at home. 07:19 ED course: Patient offered crutches and knee immobilizer. Patient just wants pm1 immobilizer because she has a cane at home and has crutches that she plans to borrow from her family. 04/01 06:33 Order name: Knee Left 3 View XRAY pm1 04/01 07:17 Order name: Knee Immobilizer; Complete Time: 07:35 pm1 Administered Medications: 06:38 Drug: [place] 5 mg-325 mg 1 tabs {Note: RASS 0.} Route: PO; lp1 07:43 Follow up: Response: No adverse reaction; Pain is decreased; RASS: Alert and Calm (0) ph Disposition: 04/01/19 07:11 Discharged to Home. Impression: Pain in left knee. - Condition is Stable. - Discharge Instructions: Crutch Use, Knee Immobilizer, Knee Pain. - Prescriptions for Tylenol- Codeine #3 300-30 mg Oral Tablet - take 2 tablets by ORAL route every 6 hours As needed; 20 tablet. - Work release form, Medication Reconciliation Form, Thank You Letter, Antibiotic Education, Prescription Opioid Use form. - Follow up: Emergency Department; When: As needed; Reason: Worsening of condition. Follow up: Private Physician; When: 2 - 3 days; Reason: Recheck today's complaints, Continuance of care, Re-evaluation by your physician. - Problem is new. - Symptoms have improved. Addendum: 04/03/2019 15:01 Co-signature as Attending Physician, Tomas Castano MD. g s Signatures: Dispatcher [employer] EDMS Fiona Santiago RN RN aa1 Ember Syed RN RN lp1 Marybeth Andrade RN RN ph Eleno Shrestha, WAX PATTERN REPAIRER WAX PATTERN REPAIRER pm1 Tomas Castano MD MD Corrections: (The following items were deleted from the chart) 04/01 07:49 07:11 04/01/2019 07:11 Discharged to Home. Impression: Pain in left knee. Condition is ph Stable. Forms are Medication Reconciliation Form, Thank You Letter, Antibiotic Education, Prescription Opioid Use. Follow up: Emergency Department; When: As needed; Reason: Worsening of condition. Follow up: Private Physician; When: 2 - 3 days; Reason: Recheck today's complaints, Continuance of care, Re-evaluation by your physician. Problem is new. Symptoms have improved. pm1
[2019-04-01 07:57] VITALS: O2SAT 100
[2019-04-01 07:58] VITALS: BP 132/87; TEMP 98
--- NOTE | 2019-04-01 10:48 | RAD REPORT ---
EXAM DESCRIPTION: RAD - Knee Left 3 View - 04/01/2019 6:59 am CLINICAL HISTORY: Left knee pain, history of recent patella dislocation COMPARISON: August 2015 FINDINGS: No fracture, dislocation or periosteal reaction.Trace joint effusion is seen. No acute fin ding of the patella identified. Mild edema in the soft tissues anterior to the patella. Patient has u nderlying degenerative change with marginal spurs at the compartments. No significant compartment wesley rowing. Arterial tree calcifications are present progressive from 2016. IMPRESSION: Mild soft tissue edema changes are present around the anterior knee and patella. Bony degenerative change in the joint. No acute findings seen. Clinical concerns for internal derangement or occult bony injury could be further assessed with MR im aging.
== END 2019-04-01 07:49 | disposition home or self-care (01) ==
LOC: ER 06:06
DX: M25.562 Pain in left knee (principal); I10 Essential (primary) hypertension; E11.9 Type 2 diabetes mellitus without complications; E78.00 Pure hypercholesterolemia, unspecified; Z72.0 Tobacco use; Z79.82 Long term (current) use of aspirin; Z88.1 Allergy status to other antibiotic agents
CPT/HCPCS: 99283

== ENCOUNTER 2019-04-13 12:21 | Emergency (ER) | payer SELFPAY ==
[2019-04-13] MEDS ORDERED: HYDROCODONE/APAP 7.5/325 MG TAB ONE ×2 (12:58→14:55)
--- NOTE | 2019-04-13 13:54 | RAD REPORT ---
EXAM DESCRIPTION: CT - Chest Abd Pelvis Wo Con - 04/13/2019 1:18 pm CLINICAL HISTORY: Chest and abdominal pain status post fall COMPARISON: February 2018 TECHNIQUE: Computed axial tomography of the chest, abdomen and pelvis was obtained. IV and oral cont rast was not requested. All CT scans are performed using dose optimization technique as appropriate and may include automated exposure control or mA/KV adjustment according to patient size. FINDINGS: Some of the images are degraded by motion artifact The evaluation of mediastinum, roger, vessels,bowel and solid organs is limited secondary to the lack of contrast administration A mediastinal hematoma is not seen. A pleural effusion is not present. A lung contusion is not seen. Mild left lower lobe atelectasis The liver, spleen, pancreas, adrenals, kidneys and bladder do not demonstrate traumatic injury. . . IMPRESSION: No evidence of a an acute traumatic injury to the chest, abdomen or pelvis. Mild left lower lobe atelectasis
--- NOTE | 2019-04-13 13:55 | RAD REPORT ---
EXAM DESCRIPTION: CT - Head Brain Wo Cont - 04/13/2019 1:19 pm CLINICAL HISTORY: Headache status post fall and head injury COMPARISON: December 2018 TECHNIQUE: Computed axial tomography of the head was obtained. IV contrast was not requested. All CT scans are performed using dose optimization technique as appropriate and may include automated exposure control or mA/KV adjustment according to patient size. FINDINGS: An intracranial bleed is not seen . The ventricles are normal in caliber. No extra-axial fluid collection is noted. Mild low-density areas within periventricular, deep and sub cortical white matter likely ischemic changes secondary to small vessel disease Fluid within the sinuses/ mastoids is not seen. IMPRESSION: No acute intracranial abnormality is seen. If patient's symptoms persist MRI of the bra in would be recommended.
--- NOTE | 2019-04-13 14:36 | EDPHYS ---
Physician Documentation [facility] Name: Billie Botello Age: 58 yrs Sex: Female : 1960 Arrival Date: 04/13/2019 Time: 12:24 Bed 12 Private MD: ED Physician Tomas Castano HPI: 04/13 14:25 This 58 yrs old Female presents to ER via Wheelchair with complaints of Fall gs Injury. 14:25 Details of fall: The patient fell from an upright position, while walking. Onset: The gs symptoms/episode began/occurred acutely, yesterday. Associated injuries: The patient sustained injury to the chest, injury to the abdomen. Severity of symptoms: At their worst the symptoms were moderate, in the emergency department the symptoms are unchanged. The patient has not experienced similar symptoms in the past. Historical: - Allergies: 12:28 Bactrim; hb 14:16 Sulfa (Sulfonamide Antibiotics); tw2 14:16 trimethoprim; tw2 14:16 Trazodone; tw2 - Home Meds: 14:16 Aspirin Oral [Active]; simvastatin 20 mg Oral tab 1 tab once daily [Active]; metformin tw2 1,000 mg Oral tab [Active]; lisinopril 20 mg Oral tab 1 tab once daily [Active]; levothyroxine [Active]; carvedilol 6.25 mg Oral tab 2 tabs 2 times per day [Active]; - PMHx: 12:28 Diabetes - NIDDM; High Cholesterol; Pancreatitis; Hypertension; hb - PSHx: 12:28 Appendectomy; right wrist; hb - Immunization history:: Adult Immunizations up to date. - Social history:: Smoking status: Patient/guardian denies using tobacco. - Ebola Screening: : No symptoms or risks identified at this time. ROS: 14:25 All other systems are negative. gs Exam: 14:25 Head/Face: Normocephalic, atraumatic. Eyes: Pupils equal round and reactive to light, gs extra-ocular motions intact. Lids and lashes normal. Conjunctiva and sclera are non-icteric and not injected. Cornea within normal limits. Periorbital areas with no swelling, redness, or edema. ENT: Nares patent. No nasal discharge, no septal abnormalities noted. Tympanic membranes are normal and external auditory canals are clear. Oropharynx with no redness, swelling, or masses, exudates, or evidence of obstruction, uvula midline. Mucous membranes moist. Neck: Trachea midline, no thyromegaly or masses palpated, and no cervical lymphadenopathy. Supple, full range of motion without nuchal rigidity, or vertebral point tenderness. No Meningismus. Cardiovascular: Regular rate and rhythm with a normal S1 and S2. No gallops, murmurs, or rubs. Normal PMI, no JVD. No pulse deficits. Respiratory: Lungs have equal breath sounds bilaterally, clear to auscultation and percussion. No rales, rhonchi or wheezes noted. No increased work of breathing, no retractions or nasal flaring. Back: No spinal tenderness. No costovertebral tenderness. Full range of motion. Skin: Warm, dry with normal turgor. Normal color with no rashes, no lesions, and no evidence of cellulitis. MS/ Extremity: Pulses equal, no cyanosis. Neurovascular intact. Full, normal range of motion. Neuro: Awake and alert, GCS 15, oriented to person, place, time, and situation. Cranial nerves II-XII grossly intact. Motor strength 5/5 in all extremities. Sensory grossly intact. Cerebellar exam normal. Normal gait. 14:25 Constitutional: The patient appears alert, awake, uncomfortable. 14:25 Chest/axilla: Palpation: tenderness, that is moderate, of the left nipple, right breast and left breast. 14:25 Abdomen/GI: Palpation: moderate abdominal tenderness, in the epigastric area, right upper quadrant and left upper quadrant. Vital Signs: 12:27 BP 152 / 118; Pulse 115; Resp 24; Temp 97.8; Pulse Ox 100% on R/A; Weight 82.1 kg; hb Height 5 ft. 4 in. (162.56 cm); Pain 10/10; 14:11 BP 152 / 89; Pulse 98; Resp 18 S; Pulse Ox 98% on R/A; iw 12:27 Body Mass Index 31.07 (82.10 kg, 162.56 cm) hb Trauma Score (Adult): 12:27 Eye Response: spontaneous(1); Verbal Response: oriented(1); Motor Response: obeys hb commands(2); Systolic BP: > 89 mm Hg(4); Respiratory Rate: 10 to 29 per min(4); [place] Score: 15; Trauma Score: 12 MDM: 12:54 Patient medically screened. 14:25 Differential diagnosis: closed head injury, contusion, fracture, sprain. Data reviewed: vital signs, nurses notes, and as a result, I will discharge patient. 04/13 12:55 Order name: CT Chest Abdomen Pelvis W/O Contrast; Complete Time: 14:35 04/13 13:02 Order name: CT Head Brain wo Cont; Complete Time: 14:35 04/13 14:43 Order name: EKG - Nurse/Tech; Complete Time: 15:01 iw 04/13 14:44 Order name: EKG; Complete Time: 14:44 iw Administered Medications: 13:01 Drug: [place] (7.5 mg-325 mg) 1 tabs Route: PO; iw 14:00 Follow up: Response: No adverse reaction; Pain is unchanged, physician notified iw 14:46 Drug: [place] (7.5 mg-325 mg) 1 tabs Route: PO; Disposition: 04/13/19 14:35 Discharged to Home. Impression: Contusion of front wall of thorax, Contusion of abdominal wall. - Condition is Stable. - Discharge Instructions: Contusion. - Prescriptions for Tylenol- Codeine #4 300-60 mg Oral Tablet - take 1 tablet by ORAL route every 6 hours As needed; 6 tablet. - Medication Reconciliation Form, Thank You Letter, Antibiotic Education, Prescription Opioid Use form. - Follow up: Private Physician; When: 2 - 3 days; Reason: Re-evaluation by your physician. Signatures: Dispatcher [employer] Celia Retana RN RN Layne Billingsley RN RN Marilu Bella RN RN tw2 Tomas Castano MD MD Corrections: (The following items were deleted from the chart) 15: 14:35 04/13/2019 14:35 Discharged to Home. Impression: Contusion of front wall of iw thorax; Contusion of abdominal wall. Condition is Stable. Forms are Medication Reconciliation Form, Thank You Letter, Antibiotic Education, Prescription Opioid Use. Follow up: Private Physician; When: 2 - 3 days; Reason: Re-evaluation by your physician.
--- NOTE | 2019-04-13 14:36 | ER ---
Nurse's Notes [facility] Name: Billie Botello Age: 58 yrs Sex: Female : 1960 Arrival Date: 04/13/2019 Time: 12:24 Bed 12 Private MD: Diagnosis: Contusion of front wall of thorax;Contusion of abdominal wall Presentation: 04/13 12:25 Presenting complaint: Anterior chest wall pain and pain with breathing after mechanical hb fall from standing last night. Care prior to arrival: None. Mechanism of Injury: Fall from standing position. 12:25 Acuity: NIKA 3 hb 12:25 Method Of Arrival: Wheelchair hb 14:00 Transition of care: patient was not received from another setting of care. Onset of tw2 symptoms was April 13, 2019. Risk Assessment: Do you want to hurt yourself or someone else? Patient reports no desire to harm self or others. Initial Sepsis Screen: Does the patient meet any 2 criteria? No. Patient's initial sepsis screen is negative. Does the patient have a suspected source of infection? No. Patient's initial sepsis screen is negative. Triage Assessment: 15:00 General: Appears in no apparent distress. Behavior is calm. Pain: Complains of pain in iw chest and abdomen. Historical: - Allergies: 12:28 Bactrim; hb 14:16 Sulfa (Sulfonamide Antibiotics); tw2 14:16 trimethoprim; tw2 14:16 Trazodone; tw2 - Home Meds: 14:16 Aspirin Oral [Active]; simvastatin 20 mg Oral tab 1 tab once daily [Active]; metformin tw2 1,000 mg Oral tab [Active]; lisinopril 20 mg Oral tab 1 tab once daily [Active]; levothyroxine [Active]; carvedilol 6.25 mg Oral tab 2 tabs 2 times per day [Active]; - PMHx: 12:28 Diabetes - NIDDM; High Cholesterol; Pancreatitis; Hypertension; hb - PSHx: 12:28 Appendectomy; right wrist; hb - Immunization history:: Adult Immunizations up to date. - Social history:: Smoking status: Patient/guardian denies using tobacco. - Ebola Screening: : No symptoms or risks identified at this time. Screenin:00 Abuse screen: Denies threats or abuse. Nutritional screening: No deficits noted. tw2 Tuberculosis screening: No symptoms or risk factors identified. Fall Risk None identified. Primary Survey: 12:35 NO uncontrolled hemorrhage observed. A: The patient is alert. Airway: patent. tw2 Breathing/Chest: Respiratory pattern: regular, Respiratory effort: spontaneous, unlabored, Chest inspection: symmetrical rise and fall of the chest. Circulation: Heart tones present. Disability Alert. 14:00 Exposure/Environment: All clothing and personal items were removed. Forensic evidence tw2 collection is not deemed to be indicated at this time. Items placed in patient belonging bag. Assessment: 13:00 General: Appears uncomfortable, Behavior is cooperative. Pain: Complains of pain in iw chest, epigastric area, right upper quadrant and left upper quadrant. Neuro: Level of Consciousness is awake, alert, obeys commands, Oriented to person, place, time, situation, Moves all extremities. Full function. Neuro: Reports headache Denies blurred vision dizziness, numbness. Cardiovascular: Patient's skin is warm and dry. Respiratory: Respiratory effort is even, unlabored, Respiratory pattern is regular, symmetrical. Derm: Skin is intact, is fragile, is thin. Musculoskeletal: Range of motion: intact in all extremities. 13:49 Reassessment: pt requesting apple juice, given now, awaiting results of CT/xray. iw 14:11 Reassessment: Patient appears in no apparent distress at this time. Patient and/or iw family updated on plan of care and expected duration. Pain level reassessed. Patient is alert, oriented x 3, equal unlabored respirations, skin warm/dry/pink. Vital Signs: 12:27 BP 152 / 118; Pulse 115; Resp 24; Temp 97.8; Pulse Ox 100% on R/A; Weight 82.1 kg; hb Height 5 ft. 4 in. (162.56 cm); Pain 10/10; 14:11 BP 152 / 89; Pulse 98; Resp 18 S; Pulse Ox 98% on R/A; iw 12:27 Body Mass Index 31.07 (82.10 kg, 162.56 cm) hb Trauma Score (Adult): 12:27 Eye Response: spontaneous(1); Verbal Response: oriented(1); Motor Response: obeys hb commands(2); Systolic BP: > 89 mm Hg(4); Respiratory Rate: 10 to 29 per min(4); [place] Score: 15; Trauma Score: 12 ED Course: 12:24 Patient arrived in ED. mr 12:27 Triage completed. hb 12:28 Arm band placed on. hb 12:32 Bed in low position. Call light in reach. tw2 12:38 Tomas Castano MD is Attending Physician. gs 12:56 Celia Anderson, RN is Primary Nurse. iw 13:18 CT Chest Abdomen Pelvis W/O Contrast In Process Unspecified. EDMS 13:19 CT Head Brain wo Cont In Process Unspecified. EDMS 14:00 Patient maintains SpO2 saturation greater than 95% on room air. tw2 15:00 No provider procedures requiring assistance completed. Patient did not have IV access iw during this emergency room visit. Administered Medications: 13:01 Drug: [place] (7.5 mg-325 mg) 1 tabs Route: PO; iw 14:00 Follow up: Response: No adverse reaction; Pain is unchanged, physician notified iw 14:46 Drug: Wheatcroft (7.5 mg-325 mg) 1 tabs Route: PO; iw Outcome: 14:35 Discharge ordered by . gs 15:00 Discharged to home ambulatory, with family. iw 15:00 Discharge instructions given to patient, family, Instructed on discharge instructions, follow up and referral plans. medication usage, Demonstrated understanding of instructions, follow-up care, medications, Prescriptions given X 1. 15:01 Patient left the ED. iw 15:13 Condition: good iw Signatures: Dispatcher [employer] [facility] [place] Taylor Corbett mr Celia Anderson RN RN Layne Billingsley RN RN Marilu Bella RN RN tw2 Tomas Castano MD MD
[2019-04-13 15:20] VITALS: TEMP 97.8
[2019-04-13 15:21] VITALS: BP 152/89; O2SAT 98
--- NOTE | 2019-04-13 17:13 | EKG ---
Test Date: 2019-04-13 Test Time: 14:48:23 Hospice Patient Care Secretary: GWEN MEASUREMENT RESULTS: Intervals: Rate: 89 [place]: 176 QRSD: 70 QT: 360 QTc: 438 [place]: P: 25 [place]: 176 QRS: 1 T: 39 INTERPRETIVE STATEMENTS: Normal sinus rhythm Possible Inferior infarct, age undetermined Cannot rule out Anterior infarct, age undetermined Abnormal ECG Compared to ECG 02/20/2019 07:22:57 Myocardial infarct finding now present Prolonged QT interval no longer present Electronically Signed On 04-13-19 17:12:35 CDT by Doug Gold
== END 2019-04-13 15:01 | disposition home or self-care (01) ==
LOC: ER 12:21
DX: S30.1XXA Contusion of abdominal wall, initial encounter (principal); S20.219A Contusion of unspecified front wall of thorax, initial encounter; W19.XXXA Unspecified fall, initial encounter; Y93.01 Activity, walking, marching and hiking; Y92.9 Unspecified place or not applicable; Z79.82 Long term (current) use of aspirin; Z88.1 Allergy status to other antibiotic agents; Z88.2 Allergy status to sulfonamides; Z88.5 Allergy status to narcotic agent; I10 Essential (primary) hypertension; E11.9 Type 2 diabetes mellitus without complications; E78.00 Pure hypercholesterolemia, unspecified
CPT/HCPCS: 70450; 71250; 74176; 93005; 99284

== ENCOUNTER 2019-06-19 20:51 | Emergency (ER) | payer SELFPAY ==
--- OUTSIDE RECORDS SUMMARY | 2019-06-19 20:55 | XMS REPORT ---
[...] Medications Results No Known Results Summary Purpose [employer] Submission
--- OUTSIDE RECORDS SUMMARY | 2019-06-19 20:55 | XMS REPORT ---
:1960 [facility] Address [address] [place] [address] Care Team Providers Name Role Phone RICH [...] Comments SODIUM (BEAKER) (test 135 meq/L 136-145 vsbp=279) POTASSIUM (BEAKER) (test 3.9 meq/L 3.5-5.1 mxdd=129) CHLORIDE (BEAKER) (test 101 meq/L 98-107 eylk=151) CO2 (BEAKER) (test mrac=427) 25 meq/L 22-29 BLOOD UREA NITROGEN (BEAKER) 11 mg/dL 7-21 (test myjv=030) CREATININE (BEAKER) (test 0.84 mg/dL 0.57-1.25 kyqt=129) GLUCOSE RANDOM (BEAKER) 157 mg/dL 70-105 (test rrkr=283) CALCIUM (BEAKER) (test 9.0 mg/dL 8.4-10.2 dfqt=716) EGFR (BEAKER) (test 69 mL/min/1.73 sq m ESTIMATED GFR IS NOT hoxv=6803) ACCURATE CREATININE CLEARANCE IN PREDICTING GLOMERULAR FILTRATION RATE. ESTIMATED GFR IS NOT APPLICABLE FOR DIALYSIS PATIENTS. CBC W/PLT COUNT & AUTO [id number] 04:21:00 Test Item Value Reference Range Comments WHITE BLOOD CELL COUNT (BEAKER) (test fxux=525) 5.6 K/ L 3.5-10.5 RED BLOOD CELL COUNT (BEAKER) (test msww=293) 2.98 M/ L 3.93-5.22 HEMOGLOBIN (BEAKER) (test sbhf=608) 10.1 GM/DL 11.2-15.7 HEMATOCRIT (BEAKER) (test ppud=036) 30.4 % 34.1-44.9 MEAN CORPUSCULAR VOLUME (BEAKER) (test qxvq=400) 102.0 fL 79.4-94.8 MEAN CORPUSCULAR HEMOGLOBIN (BEAKER) (test 33.9 pg 25.6-32.2 omwh=960) MEAN CORPUSCULAR HEMOGLOBIN CONC (BEAKER) (test 33.2 GM/DL 32.2-35.5 slkb=432) RED CELL DISTRIBUTION WIDTH (BEAKER) (test 12.6 % 11.7-14.4 kbdh=666) PLATELET COUNT (BEAKER) (test brtz=358) 318 K/CU MM 150-450 MEAN PLATELET VOLUME (BEAKER) (test ppue=669) 9.9 fL 9.4-12.3 NUCLEATED RED BLOOD CELLS (BEAKER) (test 0 /100 WBC 0-0 kvvd=382) NEUTROPHILS RELATIVE PERCENT (BEAKER) (test 61 % afqu=514) LYMPHOCYTES RELATIVE PERCENT (BEAKER) (test 27 % lodo=026) MONOCYTES RELATIVE PERCENT (BEAKER) (test 9 % trty=632) EOSINOPHILS RELATIVE PERCENT (BEAKER) (test 2 % qxti=262) BASOPHILS RELATIVE PERCENT (BEAKER) (test 0 % gxtt=669) NEUTROPHILS ABSOLUTE COUNT (BEAKER) (test 3.40 K/ L 1.56-6.13 mkmj=499) LYMPHOCYTES ABSOLUTE COUNT (BEAKER) (test 1.50 K/ L 1.18-3.74 jwoe=689) MONOCYTES ABSOLUTE COUNT (BEAKER) (test 0.51 K/ L 0.24-0.36 yfpo=912) EOSINOPHILS ABSOLUTE COUNT (BEAKER) (test 0.12 K/ L 0.04-0.36 xjfa=151) BASOPHILS ABSOLUTE COUNT (BEAKER) (test 0.02 K/ L 0.01-0.08 ivzk=333) IMMATURE GRANULOCYTES-RELATIVE PERCENT (BEAKER) 0 % 0-1 (test kqjf=1096) POCT-GLUCOSE [id number] 22:00:00 Test Item Value Reference Range Comments POC-GLUCOSE METER (BEAKER) 148 mg/dL 70-110 TESTED AT [address] (test tfxx=7610) [facility] [address] POCT-GLUCOSE [id number] 17:06:00 Test Item Value Reference Range Comments POC-GLUCOSE METER (BEAKER) 224 mg/dL 70-110 TESTED AT [place] [id number] [facility] (test xbxm=6403) [facility] [address] POCT-GLUCOSE [id number] 12:39:00 Test Item Value Reference Range Comments POC-GLUCOSE METER (BEAKER) 214 mg/dL 70-110 TESTED AT [address] (test zuhf=8096) [facility] [address] POCT-GLUCOSE [id number] 08:26:00 Test Item Value Reference Range Comments POC-GLUCOSE METER (BEAKER) 166 mg/dL 70-110 TESTED AT [address] (test lsbu=8074) [facility] [address] COMPREHENSIVE METABOLIC [id number] 05:17:00 Test Item Value Reference Range Comments TOTAL PROTEIN (BEAKER) 6.3 gm/dL 6.0-8.3 (test dalu=199) ALBUMIN (BEAKER) (test 3.3 g/dL 3.5-5.0 xrrr=8082) ALKALINE PHOSPHATASE 84 U/L 40-150 (BEAKER) (test vajq=725) BILIRUBIN TOTAL (BEAKER) 0.4 mg/dL 0.2-1.2 (test xrzt=028) SODIUM (BEAKER) (test 137 meq/L 136-145 wzsd=220) POTASSIUM (BEAKER) (test 3.9 meq/L 3.5-5.1 cjas=335) CHLORIDE (BEAKER) (test 98 meq/L 98-107 vnfq=948) CO2 (BEAKER) (test 31 meq/L 22-29 wvaq=090) BLOOD UREA NITROGEN 10 mg/dL 7-21 (BEAKER) (test bqiu=890) CREATININE (BEAKER) (test 0.79 mg/dL 0.57-1.25 rxry=084) GLUCOSE RANDOM (BEAKER) 161 mg/dL 70-105 (test nhav=836) CALCIUM (BEAKER) (test 9.2 mg/dL 8.4-10.2 bhtc=577) AST (SGOT) (BEAKER) (test 38 U/L 5-34 tjjz=932) ALT (SGPT) (BEAKER) (test 23 U/L 6-55 jpum=661) EGFR (BEAKER) (test 74 mL/min/1.73 sq m ESTIMATED GFR IS NOT irbm=0730) ACCURATE CREATININE CLEARANCE IN PREDICTING GLOMERULAR FILTRATION RATE. ESTIMATED GFR IS NOT APPLICABLE FOR DIALYSIS PATIENTS. [id number] 05:14:00 Test Item Value Reference Range Comments PHOSPHORUS (BEAKER) (test ikqw=460) 2.9 mg/dL 2.3-4.7 [id number] 05:14:00 Test Item Value Reference Range Comments MAGNESIUM (BEAKER) (test zvqy=128) 1.6 mg/dL 1.6-2.6 CBC W/PLT COUNT & AUTO [id number] 04:48:00 Test Item Value Reference Range Comments WHITE BLOOD CELL COUNT (BEAKER) (test lyga=695) 7.4 K/ L 3.5-10.5 RED BLOOD CELL COUNT (BEAKER) (test ifew=883) 3.37 M/ L 3.93-5.22 HEMOGLOBIN (BEAKER) (test tfpa=660) 11.4 GM/DL 11.2-15.7 HEMATOCRIT (BEAKER) (test jtir=549) 34.6 % 34.1-44.9 MEAN CORPUSCULAR VOLUME (BEAKER) (test rylh=139) 102.7 fL 79.4-94.8 MEAN CORPUSCULAR HEMOGLOBIN (BEAKER) (test 33.8 pg 25.6-32.2 mtfa=418) MEAN CORPUSCULAR HEMOGLOBIN CONC (BEAKER) (test 32.9 GM/DL 32.2-35.5 nilo=467) RED CELL DISTRIBUTION WIDTH (BEAKER) (test 12.7 % 11.7-14.4 yegs=428) PLATELET COUNT (BEAKER) (test tdao=906) 330 K/CU MM 150-450 MEAN PLATELET VOLUME (BEAKER) (test wjsp=916) 9.8 fL 9.4-12.3 NUCLEATED RED BLOOD CELLS (BEAKER) (test 0 /100 WBC 0-0 drns=392) NEUTROPHILS RELATIVE PERCENT (BEAKER) (test 73 % jmfn=654) LYMPHOCYTES RELATIVE PERCENT (BEAKER) (test 18 % mzgx=746) MONOCYTES RELATIVE PERCENT (BEAKER) (test 7 % vupn=776) EOSINOPHILS RELATIVE PERCENT (BEAKER) (test 2 % efpo=551) BASOPHILS RELATIVE PERCENT (BEAKER) (test 0 % nnew=689) NEUTROPHILS ABSOLUTE COUNT (BEAKER) (test 5.43 K/ L 1.56-6.13 nqpx=610) LYMPHOCYTES ABSOLUTE COUNT (BEAKER) (test 1.33 K/ L 1.18-3.74 rwee=269) MONOCYTES ABSOLUTE COUNT (BEAKER) (test 0.48 K/ L 0.24-0.36 eoei=297) EOSINOPHILS ABSOLUTE COUNT (BEAKER) (test 0.12 K/ L 0.04-0.36 qvou=267) BASOPHILS ABSOLUTE COUNT (BEAKER) (test 0.03 K/ L 0.01-0.08 bedt=615) IMMATURE GRANULOCYTES-RELATIVE PERCENT (BEAKER) 1 % 0-1 (test ahgs=6963) POCT-GLUCOSE [id number] 22:42:00 Test Item Value Reference Range Comments POC-GLUCOSE METER (BEAKER) 184 mg/dL 70-110 TESTED AT [address] (test kqfk=2985) [place] [id number] POCT-GLUCOSE [id number] 18:51:00 Test Item Value Reference Range Comments POC-GLUCOSE METER (BEAKER) 220 mg/dL 70-110 TESTED AT [address] (test ezpx=9459) [place] [address] [id number] 16:07:00 Test Item Value Reference Range Comments MAGNESIUM (BEAKER) (test isaw=150) 1.8 mg/dL 1.6-2.6 [id number] 16:07:00 Test Item Value Reference Range Comments POTASSIUM (BEAKER) (test wdud=470) 4.1 meq/L 3.5-5.1 POCT-GLUCOSE [id number] 15:47:00 Test Item Value Reference Range Comments POC-GLUCOSE METER (BEAKER) 215 mg/dL 70-110 TESTED AT [address] (test zqqf=0083) [place] [address] [id number] 10:16:00 Test Item Value Reference Range Comments MAGNESIUM (BEAKER) (test oenv=098) 1.7 mg/dL 1.6-2.6 POCT-GLUCOSE [id number] 09:25:00 Test Item Value Reference Range Comments POC-GLUCOSE METER (BEAKER) 156 mg/dL 70-110 TESTED AT [facility] [address] (test lawc=5281) [facility] [address] BASIC METABOLIC [id number] 06:32:00 Test Item Value Reference Range Comments SODIUM (BEAKER) (test 136 meq/L 136-145 khlc=594) POTASSIUM (BEAKER) (test 3.7 meq/L 3.5-5.1 siig=249) CHLORIDE (BEAKER) (test 97 meq/L 98-107 nela=500) CO2 (BEAKER) (test 32 meq/L 22-29 btlb=865) BLOOD UREA NITROGEN 16 mg/dL 7-21 (BEAKER) (test aofg=608) CREATININE (BEAKER) (test 0.82 mg/dL 0.57-1.25 bmds=079) GLUCOSE RANDOM (BEAKER) 114 mg/dL 70-105 (test bixb=987) CALCIUM (BEAKER) (test 7.8 mg/dL 8.4-10.2 czdz=886) EGFR (BEAKER) (test 71 mL/min/1.73 sq m ESTIMATED GFR IS NOT mfkc=6643) ACCURATE CREATININE CLEARANCE IN PREDICTING GLOMERULAR FILTRATION RATE. ESTIMATED GFR IS NOT APPLICABLE FOR DIALYSIS PATIENTS. CBC W/PLT COUNT & AUTO [id number] 05:42:00 Test Item Value Reference Range Comments WHITE BLOOD CELL COUNT (BEAKER) (test sgda=490) 7.9 K/ L 3.5-10.5 RED BLOOD CELL COUNT (BEAKER) (test iyoe=005) 3.12 M/ L 3.93-5.22 HEMOGLOBIN (BEAKER) (test dikm=406) 10.8 GM/DL 11.2-15.7 HEMATOCRIT (BEAKER) (test domt=969) 32.6 % 34.1-44.9 MEAN CORPUSCULAR VOLUME (BEAKER) (test etra=024) 104.5 fL 79.4-94.8 MEAN CORPUSCULAR HEMOGLOBIN (BEAKER) (test 34.6 pg 25.6-32.2 zgdq=646) MEAN CORPUSCULAR HEMOGLOBIN CONC (BEAKER) (test 33.1 GM/DL 32.2-35.5 eshp=262) RED CELL DISTRIBUTION WIDTH (BEAKER) (test 13.0 % 11.7-14.4 xtvw=642) PLATELET COUNT (BEAKER) (test vafg=349) 324 K/CU MM 150-450 MEAN PLATELET VOLUME (BEAKER) (test bjhm=188) 9.7 fL 9.4-12.3 NUCLEATED RED BLOOD CELLS (BEAKER) (test 0 /100 WBC 0-0 kymr=911) NEUTROPHILS RELATIVE PERCENT (BEAKER) (test 76 % vlrz=360) LYMPHOCYTES RELATIVE PERCENT (BEAKER) (test 16 % aczv=402) MONOCYTES RELATIVE PERCENT (BEAKER) (test 6 % ofko=149) EOSINOPHILS RELATIVE PERCENT (BEAKER) (test 1 % dzjm=369) BASOPHILS RELATIVE PERCENT (BEAKER) (test 1 % eczi=363) NEUTROPHILS ABSOLUTE COUNT (BEAKER) (test 5.96 K/ L 1.56-6.13 wubk=033) LYMPHOCYTES ABSOLUTE COUNT (BEAKER) (test 1.27 K/ L 1.18-3.74 rfse=383) MONOCYTES ABSOLUTE COUNT (BEAKER) (test 0.46 K/ L 0.24-0.36 lxnc=224) EOSINOPHILS ABSOLUTE COUNT (BEAKER) (test 0.10 K/ L 0.04-0.36 keby=933) BASOPHILS ABSOLUTE COUNT (BEAKER) (test 0.04 K/ L 0.01-0.08 jewc=862) IMMATURE GRANULOCYTES-RELATIVE PERCENT (BEAKER) 0 % 0-1 (test rkvm=0921) POCT-GLUCOSE [id number] 22:05:00 Test Item Value Reference Range Comments POC-GLUCOSE METER (BEAKER) 255 mg/dL 70-110 TESTED AT [facility] [address] [facility] (test dzgl=1213) [facility] [address] MR, BRAIN, WITHOUT [id number] 19:23:00Reason for exam:->StrokeWhat is the patient's sedation [...] arteries: Normal flow-related enhancement within the bilateral BOOT REPAIRER P1-P2 segments without flow-limiting stenosis. Bilateral functional type field research associate.Additional findings: None. MRA NECK:Common carotid arteries: Unremarkable. [...] be excluded by imaging). Signed: Caty Barger MDRayana Verified Date/Time: 12/08/2018 19:23:05 Reading Location: [address] Neuro Reading Room MR , MRA, NECK, WITHOUT IV [id number] 19:23:00FINAL REPORT MR, BRAIN, WITHOUT CONTRAST, MR, [...] arteries: Normal flow-related enhancement within the bilateral BOOT REPAIRER P1-P2 segments without flow-limiting stenosis. Bilateral functional type field research associate.Additional findings: None. MRA NECK:Common carotid arteries: Unremarkable. [...] MDReport Verified Date/Time: 12/08/2018 19:23:05 Reading Location: [facility] B1 C013V Neuro Reading Room MR , MRA, BRAIN, WITHOUT [id number] 19:23:00Reason for exam:-> StrokeWhat is the patient's [...] arteries: Normal flow-related enhancement within the bilateral BOOT REPAIRER P1-P2 segments without flow-limiting stenosis. Bilateral functional type field research associate.Additional findings: None. MRA NECK:Common carotid arteries: Unremarkable. [...] Barger Verified Date/Time: 12/08/2018 19:23:05 Reading Location: [address] Neuro Reading Room POCT-GLUCOSE [id number] 19:03:00 Test Item Value Reference Range Comments POC-GLUCOSE METER (BEAKER) 158 mg/dL 70-110 TESTED AT [facility] [address] [place] [address] (test zmqn=9597) [facility] [address] [id number] 17:33:00 Test Item Value Reference Range Comments POTASSIUM (BEAKER) (test teot=957) 4.0 meq/L 3.5-5.1 [id number] 17:33:00 Test Item Value Reference Range Comments MAGNESIUM (BEAKER) (test rfme=806) 2.4 mg/dL 1.6-2.6 [id number] 14:55:00 Test Item Value Reference Range Comments RPR SCREEN (BEAKER) (test jtkl=573) Nonreactive Nonreactive [id number] 12:28:00 Test Item Value Reference Range Comments POTASSIUM (BEAKER) (test anfq=269) 2.9 meq/L 3.5-5.1 TROPONIN [id number] 10:59:00 Test Item Value Reference Range Comments TROPONIN I (BEAKER) (test hbpo=673) 0.01 ng/mL 0.00-0.03 Troponin I (TnI) levels [...] failure, acidosis, acute neurological disease, and persistent tachyarrhythmia.[id number] 10:50:00 Test Item Value Reference Range Comments MAGNESIUM (BEAKER) (test kxem=647) 1.8 mg/dL 1.6-2.6 HEMOGLOBIN [id number] 07:49:00 Test Item Value Reference Range Comments HEMOGLOBIN A1C (BEAKER) (test bgpk=856) 8.1 % 4.3-6.1 HIV-1 ANTIGEN WITH HIV-1/2 [id number] 06:03:00 Test Item Value Reference Range Comments HIV-1 ANTIGEN WITH HIV 1\T\2 ANTIBODY (2) Nonreactive Nonreactive (BEAKER) (test trny=9700) [id number] 05:54:00 Test Item Value Reference Range Comments POTASSIUM (BEAKER) (test wege=489) 2.8 meq/L 3.5-5.1 VITAMIN B12 AND [id number] 03:31:00 Test Item Value Reference Range Comments VITAMIN B12 (BEAKER) (test rckn=811) 1168 pg/mL 213-816 FOLATE (BEAKER) (test eaom=878) > ng/mL >=7.0 TSH/FREE T4 IF [id number] 03:24:00 Test Item Value Reference Range Comments THYROID STIMULATING HORMONE (BEAKER) (test 2.19 uIU/mL 0.35-4.94 gzmd=805) BASIC METABOLIC [id number] 02:06:00 Test Item Value Reference Range Comments SODIUM (BEAKER) (test 132 meq/L 136-145 ftuc=477) POTASSIUM (BEAKER) (test 3.0 meq/L 3.5-5.1 Specimen slightly aszp=579) hemolyzed CHLORIDE (BEAKER) (test 83 meq/L 98-107 zeag=223) CO2 (BEAKER) (test 37 meq/L 22-29 ihwj=046) BLOOD UREA NITROGEN 27 mg/dL 7-21 (BEAKER) (test yiva=837) CREATININE (BEAKER) (test 1.33 mg/dL 0.57-1.25 Specimen slightly xbsu=370) hemolyzed GLUCOSE RANDOM (BEAKER) 216 mg/dL 70-105 (test icsk=959) CALCIUM (BEAKER) (test 7.2 mg/dL 8.4-10.2 iqho=499) EGFR (BEAKER) (test mL/min/1.73 sq m INSUFFICIENT CLINICAL DATA deaw=5553) TO CALCULATE ESTIMATED GFR. [id number] 02:04:00 Test Item Value Reference Range Comments MAGNESIUM (BEAKER) (test 1.5 mg/dL 1.6-2.6 Specimen slightly hemolyzed knxy=204) FastingLIPID [id number] 02:04:00 Test Item Value Reference Range Comments TRIGLYCERIDES (BEAKER) (test 135 mg/dL Specimen slightly hemolyzed joum=352) CHOLESTEROL (BEAKER) (test 151 mg/dL Specimen slightly hemolyzed bwir=482) HDL CHOLESTEROL (BEAKER) (test 43 mg/dL ldxp=617) LDL CHOLESTEROL CALCULATED 81 mg/dL (BEAKER) (test rysr=774) Triglyceride Reference Range: Low Risk <150 Borderline 150- 199 High Risk 200-499 Very High Risk >=500Cholesterol Reference Range: Low Risk <200 Borderline 200-239 High Risk > 240HDL Cholesterol Reference Range: Low Risk >=60 High Risk <40LDL Cholesterol Reference Range: Optimal <100 Near Optimal 100-129 Borderline 130-159 High 160-189 Very High >=190 FastingCBC W/PLT COUNT & AUTO [id number] 01:36:00 Test Item Value Reference Range Comments WHITE BLOOD CELL COUNT (BEAKER) (test rxtm=039) 6.9 K/ L 3.5-10.5 RED BLOOD CELL COUNT (BEAKER) (test aaev=128) 3.21 M/ L 3.93-5.22 HEMOGLOBIN (BEAKER) (test ziqx=358) 11.2 GM/DL 11.2-15.7 HEMATOCRIT (BEAKER) (test oawn=608) 32.4 % 34.1-44.9 MEAN CORPUSCULAR VOLUME (BEAKER) (test tihc=975) 100.9 fL 79.4-94.8 MEAN CORPUSCULAR HEMOGLOBIN (BEAKER) (test 34.9 pg 25.6-32.2 wwra=598) MEAN CORPUSCULAR HEMOGLOBIN CONC (BEAKER) (test 34.6 GM/DL 32.2-35.5 fmvt=371) RED CELL DISTRIBUTION WIDTH (BEAKER) (test 12.9 % 11.7-14.4 akdt=283) PLATELET COUNT (BEAKER) (test uthh=266) 346 K/CU MM 150-450 MEAN PLATELET VOLUME (BEAKER) (test dgxp=218) 9.5 fL 9.4-12.3 NUCLEATED RED BLOOD CELLS (BEAKER) (test 0 /100 WBC 0-0 koqu=727) NEUTROPHILS RELATIVE PERCENT (BEAKER) (test 82 % qzwc=229) LYMPHOCYTES RELATIVE PERCENT (BEAKER) (test 11 % yfqu=092) MONOCYTES RELATIVE PERCENT (BEAKER) (test 6 % bsex=170) EOSINOPHILS RELATIVE PERCENT (BEAKER) (test 1 % qxad=306) BASOPHILS RELATIVE PERCENT (BEAKER) (test 1 % vjmy=434) NEUTROPHILS ABSOLUTE COUNT (BEAKER) (test 5.58 K/ L 1.56-6.13 nzkg=782) LYMPHOCYTES ABSOLUTE COUNT (BEAKER) (test 0.74 K/ L 1.18-3.74 uqwk=673) MONOCYTES ABSOLUTE COUNT (BEAKER) (test 0.40 K/ L 0.24-0.36 fgfs=538) EOSINOPHILS ABSOLUTE COUNT (BEAKER) (test 0.06 K/ L 0.04-0.36 wils=837) BASOPHILS ABSOLUTE COUNT (BEAKER) (test 0.04 K/ L 0.01-0.08 uker=653) IMMATURE GRANULOCYTES-RELATIVE PERCENT (BEAKER) 0 % 0-1 (test ybzo=0172) [id number] 23:06:00 Test Item Value Reference Range Comments ETHANOL (BEAKER) (test hbbw=039) < mg/dL <=10 TROPONIN [id number] 22:58:00 Test Item Value Reference Range Comments TROPONIN I (BEAKER) (test xhhs=705) 0.01 ng/mL 0.00-0.03 Troponin I (TnI) levels [...] acute neurological disease, and persistent tachyarrhythmia.BASIC METABOLIC [id number] 22:56:00 Test Item Value Reference Range Comments SODIUM (BEAKER) (test 132 meq/L 136-145 mcva=946) POTASSIUM (BEAKER) (test 2.2 meq/L 3.5-5.1 vqed=570) CHLORIDE (BEAKER) (test 81 meq/L 98-107 gwmg=831) CO2 (BEAKER) (test 36 meq/L 22-29 hscs=401) BLOOD UREA NITROGEN 27 mg/dL 7-21 (BEAKER) (test qfrl=238) CREATININE (BEAKER) (test 1.43 mg/dL 0.57-1.25 wtva=966) GLUCOSE RANDOM (BEAKER) 190 mg/dL 70-105 (test tgsr=685) CALCIUM (BEAKER) (test 7.6 mg/dL 8.4-10.2 otdq=071) EGFR (BEAKER) (test mL/min/1.73 sq m INSUFFICIENT CLINICAL DATA uybj=2001) TO CALCULATE ESTIMATED GFR. URINALYSIS [id number] 22:41:00 Test Item Value Reference Range Comments RBC UA (BEAKER) (test exvs=671) 1 /HPF WBC UA (BEAKER) (test yzan=084) < /HPF SQUAMOUS EPITHELIAL (BEAKER) (test ntae=661) 7 /HPF HYALINE CASTS (BEAKER) (test bhbn=168) 2 /LPF URINALYSIS WITH MICROSCOPIC IF [id number] 22:36:00 Test Item Value Reference Range Comments COLOR (BEAKER) (test azyg=764) Yellow CLARITY (BEAKER) (test xqfm=603) Hazy SPECIFIC GRAVITY UA (BEAKER) (test yxvr=384) 1.012 1.001-1.035 PH UA (BEAKER) (test txpp=301) 6.0 5.0-8.0 PROTEIN UA (BEAKER) (test icez=961) 200 mg/dL Negative GLUCOSE UA (BEAKER) (test ajmk=379) Negative Negative KETONES UA (BEAKER) (test msjv=661) Trace Negative BILIRUBIN UA (BEAKER) (test jtxn=411) Negative Negative BLOOD UA (BEAKER) (test vfjz=966) Trace Negative NITRITE UA (BEAKER) (test bozq=782) Negative Negative LEUKOCYTE ESTERASE UA (BEAKER) (test mbsb=693) Negative Negative UROBILINOGEN UA (BEAKER) (test yvaf=676) 2.0 mg/dL 0.2-1.0 SOURCE(BEAKER) (test njue=8814) BASIC METABOLIC [id number] 19:01:00 Test Item Value Reference Range Comments SODIUM (BEAKER) (test 134 meq/L 136-145 foqa=908) POTASSIUM (BEAKER) (test 2.2 meq/L 3.5-5.1 vlxy=015) CHLORIDE (BEAKER) (test 82 meq/L 98-107 egja=301) CO2 (BEAKER) (test 35 meq/L 22-29 tkzc=428) BLOOD UREA NITROGEN 25 mg/dL 7-21 (BEAKER) (test amyk=114) CREATININE (BEAKER) (test 1.36 mg/dL 0.57-1.25 ocrc=362) GLUCOSE RANDOM (BEAKER) 214 mg/dL 70-105 (test emrf=524) CALCIUM (BEAKER) (test 7.4 mg/dL 8.4-10.2 lklf=214) EGFR (BEAKER) (test mL/min/1.73 sq m INSUFFICIENT CLINICAL DATA tiih=4059) TO CALCULATE ESTIMATED GFR. [id number] 19:01:00 Test Item Value Reference Range Comments MAGNESIUM (BEAKER) (test bdco=273) 0.7 mg/dL 1.6-2.6 [id number] 18:58:00 Test Item Value Reference Range Comments PHOSPHORUS (BEAKER) (test zueg=756) 3.3 mg/dL 2.3-4.7 HEPATIC FUNCTION [id number] 18:58:00 Test Item Value Reference Range Comments TOTAL PROTEIN (BEAKER) (test lshr=030) 6.0 gm/dL 6.0-8.3 ALBUMIN (BEAKER) (test zvrr=7321) 3.3 g/dL 3.5-5.0 BILIRUBIN TOTAL (BEAKER) (test fikv=806) 1.2 mg/dL 0.2-1.2 BILIRUBIN DIRECT (BEAKER) (test jtbs=768) 0.6 mg/dL 0.1-0.5 ALKALINE PHOSPHATASE (BEAKER) (test chly=660) 74 U/L 40-150 AST (SGOT) (BEAKER) (test uubf=683) 103 U/L 5-34 ALT (SGPT) (BEAKER) (test hyte=384) 36 U/L 6-55
--- OUTSIDE RECORDS SUMMARY | 2019-06-19 20:55 | XMS REPORT ---
[...] Medications Results No Known Results Summary Purpose [email or web address] Submission
--- OUTSIDE RECORDS SUMMARY | 2019-06-19 20:55 | XMS REPORT ---
[...] Date Status Dosage System Date Metformin HCl [facility] 86782650264 1000 MG Orally October 28, Active 1 tablet Twice a day 2017 with a meal Results No Known Results Summary Purpose eClinicalWorks Submission
--- OUTSIDE RECORDS SUMMARY | 2019-06-19 20:55 | XMS REPORT ---
[...] End Status Dosage System Date Date Cardura [facility] 38973890865 1 MG Orally Active 1 tablet Once a day Carvedilol [facility] 09405824801 12.5 MG Orally Active 1 tablet Twice daily Vitamin C [facility] 80[address]-72555 Orally Once a Active 1 tablet day Clonidine HCl [facility] 44761728508 0.1 MG Orally Active 1 tablet Once daily at bedtime Nitrofurantoin Monohyd [facility] 38265944034 100 MG Oral Active not Macro defined MetFORMIN HCl ER (OS[facility]) ND 42939382957 1000 MG Orally October Active 1 tablet Twice daily 24, 2018 Simvastatin [facility] 57239593760 20 mg Orally Active 1 tablet Once a day Levothyroxine Sodium [facility] 83076972953 25 MCG Orally Active 1 tablet Once a day on an empty stomach in the morning Lisinopril [facility] 51659520306 20 mg Orally Active 1 tablet Once a day Potassium ND 0 Orally Once a Active 1 tablet day Hydrochlorothiazide [facility] 86047546502 12.5 MG Oral Active not defined Ondansetron [facility] 43043353915 4 MG Oral Active not defined Metformin HCl [facility] 99718425798 1000 MG Orally Active 1 tablet Twice a day with a meal Vitamin D-400 [facility] 11264-89044 Orally Once a Active not day defined Results No Known Results Summary Purpose eClinicalWorks Submission
--- OUTSIDE RECORDS SUMMARY | 2019-06-19 20:55 | XMS REPORT ---
[...] Medications Results No Known Results Summary Purpose [employer] Submission
[2019-06-19] MEDS ORDERED: INSULIN -REGULAR HUMAN 50 UNIT/0.5 ML ML ONE (21:49)
[2019-06-19] MEDS ORDERED: NA CHLORIDE 0.9% 1,000 ML ONE (21:49)
[2019-06-19 22:04] LABS: Absolute Lymphocytes (CBC) 2.5 K/uL (0.7-4.9); Basophils % 0.6 % (0-1.3); Hematocrit 37.7 % (36.0-45.0); Lymphocytes % 32.2 % (15.3-44.8); MPV 9.4 fL (7.6-11.3); RBC Red Blood Cell Count 3.82 M/uL (3.86-4.86)
[2019-06-19 22:14] LABS: Potassium 3.9 mmol/L (3.5-5.1)
--- NOTE | 2019-06-19 23:06 | ER ---
Nurse's Notes [facility] Name: Billie Botello Age: 58 yrs Sex: Female : 1960 Arrival Date: 06/19/2019 Time: 20:55 Bed 23 Private MD: Diagnosis: Hyperglycemia, unspecified Presentation: 06/19 21:03 Presenting complaint: Patient states: I have been having real high blood sugars this tl1 week. i went to the Dr this week and he started me on metformin 500mg twice per day and changed my glimipiride 4mg twice per day. My blood sugars are still high. Transition of care: patient was not received from another setting of care. Onset of symptoms was June 17, 2019. Risk Assessment: Do you want to hurt yourself or someone else? Patient reports no desire to harm self or others. Initial Sepsis Screen: Does the patient meet any 2 criteria? No. Patient's initial sepsis screen is negative. Does the patient have a suspected source of infection? No. Patient's initial sepsis screen is negative. Care prior to arrival: None. 21:03 Method Of Arrival: Ambulatory tl1 21:03 Acuity: NIKA 3 tl1 Historical: - Allergies: 21:07 Bactrim; tl1 21:07 Sulfa (Sulfonamide Antibiotics); tl1 21:07 Trazodone; tl1 21:07 TRIMETHOPRIM; tl1 - Home Meds: 21:07 Aspirin Oral [Active]; carvedilol 6.25 mg Oral tab 2 tabs 2 times per day [Active]; tl1 levothyroxine [Active]; lisinopril 20 mg Oral tab 1 tab once daily [Active]; simvastatin 20 mg Oral tab 1 tab once daily [Active]; metformin 500 mg oral tab 1 tab 2 times per day [Active]; glimepiride 4 mg Oral tab 1 tab bid [Active]; - PMHx: 21:08 Diabetes - NIDDM; High Cholesterol; Hypertension; Pancreatitis; tl1 - Immunization history:: Adult Immunizations up to date. - Social history:: Smoking status: Patient uses tobacco products, smokes one-half pack cigarettes per day. - Ebola Screening: : Patient negative for fever greater than or equal to 101.5 degrees Fahrenheit, and additional compatible Ebola Virus Disease symptoms Patient denies exposure to infectious person Patient denies travel to an Ebola-affected area in the 21 days before illness onset. Screenin:13 Abuse screen: Denies threats or abuse. Denies injuries from another. Nutritional mg2 screening: No deficits noted. Tuberculosis screening: No symptoms or risk factors identified. Fall Risk IV access (20 points). Assessment: 22:24 General: Appears in no apparent distress. Behavior is calm, cooperative, appropriate ea for age. Pain: Denies pain. Neuro: Level of Consciousness is awake, alert, obeys commands, Oriented to person, place, time, situation. Cardiovascular: Respiratory: Airway is patent Respiratory effort is even, unlabored, Respiratory pattern is regular, symmetrical. Derm: Skin is pink, warm \T\ dry. Musculoskeletal: Circulation, motion, and sensation intact. 23:23 Reassessment: Patient and/or family updated on plan of care and expected duration. Pain ea level reassessed. Patient is alert, oriented x 3, equal unlabored respirations, skin warm/dry/pink. Discharge instruction given to patient, verbalized the understanding of instruction. Pt left ED ambulatory accompanied by family, pt tolerating well. Vital Signs: 21:09 BP 144 / 92; Pulse 94; Resp 20; Temp 99.4; Pulse Ox 96% on R/A; Weight 85.73 kg; Height tl1 5 ft. 4 in. (162.56 cm); Pain 0/10; 22:31 BP 142 / 57; Pulse 87; Resp 18; Pulse Ox 100% ; ea 23:15 BP 140 / 60; Pulse 88; Resp 18; Temp 98.8; Pulse Ox 97% on R/A; ea 21:09 Body Mass Index 32.44 (85.73 kg, 162.56 cm) tl1 ED Course: 20:55 Patient arrived in ED. jg7 21:03 Sergo Medina PA is PHCP. jr8 21:03 Clovis Gaytan MD is Attending Physician. jr8 21:05 Triage completed. tl1 21:10 Arm band placed on right wrist. tl1 21:54 Angela Sims, TEE is Primary Nurse. ea 22:12 No provider procedures requiring assistance completed. Inserted saline lock: 20 gauge mg2 in right forearm, using aseptic technique. Blood collected. 22:25 Patient has correct armband on for positive identification. Bed in low position. Call ea light in reach. Side rails up X2. 23:15 IV discontinued, intact, bleeding controlled, No redness/swelling at site. Pressure ea dressing applied. Administered Medications: 21:56 Drug: NS 0.9% 1000 ml Route: IV; Rate: 1000 ml; Site: right forearm; mg2 23:00 Follow up: Response: No adverse reaction; IV Status: Completed infusion; IV Intake: ea 1000ml 21:56 Drug: Insulin Regular Human 10 units {Co-Signature: sonido (Angela Sims RN).} Route: IVP; mg2 Site: right forearm; 22:30 Follow up: Response: No adverse reaction ea Intake: 23:00 IV: 1000ml; Total: 1000ml. ea Outcome: 23:06 Discharge ordered by . carol 23:21 Discharged to home ambulatory, with family. ea 23:21 Condition: stable 23:21 Discharge instructions given to patient, Instructed on discharge instructions, follow up and referral plans. medication usage, Demonstrated understanding of instructions, follow-up care, medications, Prescriptions given X 1. 23:25 Patient left the ED. ea Signatures: Sergo Medina PA PA jr8 Lasagna, Tonya, RN RN tl1 Angela Sims RN RN ea Gardose, Michele RN TEE mg2 Jazmyn Emmanuelg7 Angela Sims RN, ea Corrections: (The following items were deleted from the chart) 21:09 21:03 Presenting complaint: Patient states: I have been having real high blood sugars tl1 this week. i went to the Dr this week and he started me on metformin 500mg twice per day and changed my glipizide 4mg twice per day. My blood sugars are still high tl1
--- NOTE | 2019-06-19 23:07 | EDPHYS ---
Physician Documentation [facility] Name: Billie Botello Age: 58 yrs Sex: Female : 1960 Arrival Date: 06/19/2019 Time: 20:55 Bed 23 Private MD: ED Physician Clovis Gaytan HPI: 06/19 21:40 This 58 yrs old Female presents to ER via Ambulatory with complaints of High jr8 Blood Sugar. 21:40 The patient or guardian reports generalized fatigue, generalized weakness, jr8 hyperglycemia, polydipsia, polyuria. Onset: The symptoms/episode began/occurred gradually, 1 week(s) ago. Associated signs and symptoms: Pertinent positives: blurred vision. Current symptoms: In the emergency department the patient's symptoms are unchanged from the initial presentation. It is unknown whether or not the patient has had similar symptoms in the past. The patient has been recently seen by a physician:. Patient stated that her sugar had been elevating lately. PCP last week increased her glimepride and also put her on metformin 500 mg PO BID. Still continues to have elevated glucose with fatigue, dryness, and blurred vision . Historical: - Allergies: 21:07 Bactrim; tl1 21:07 Sulfa (Sulfonamide Antibiotics); tl1 21:07 Trazodone; tl1 21:07 TRIMETHOPRIM; tl1 - Home Meds: 21:07 Aspirin Oral [Active]; carvedilol 6.25 mg Oral tab 2 tabs 2 times per day [Active]; tl1 levothyroxine [Active]; lisinopril 20 mg Oral tab 1 tab once daily [Active]; simvastatin 20 mg Oral tab 1 tab once daily [Active]; metformin 500 mg oral tab 1 tab 2 times per day [Active]; glimepiride 4 mg Oral tab 1 tab bid [Active]; - PMHx: 21:08 Diabetes - NIDDM; High Cholesterol; Hypertension; Pancreatitis; tl1 - Immunization history:: Adult Immunizations up to date. - Social history:: Smoking status: Patient uses tobacco products, smokes one-half pack cigarettes per day. - Ebola Screening: : Patient negative for fever greater than or equal to 101.5 degrees Fahrenheit, and additional compatible Ebola Virus Disease symptoms Patient denies exposure to infectious person Patient denies travel to an Ebola-affected area in the 21 days before illness onset. ROS: 21:40 Eyes: Negative for injury, pain, redness, and discharge, ENT: Negative for injury, jr8 pain, and discharge, Neck: Negative for injury, pain, and swelling, Cardiovascular: Negative for chest pain, palpitations, and edema, Respiratory: Negative for shortness of breath, cough, wheezing, and pleuritic chest pain, Abdomen/GI: Negative for abdominal pain, nausea, vomiting, diarrhea, and constipation, Back: Negative for injury and pain, MS/Extremity: Negative for injury and deformity, Skin: Negative for injury, rash, and discoloration, Neuro: Negative for headache, weakness, numbness, tingling, and seizure. 21:40 Constitutional: Positive for fatigue, malaise. 21:40 Endocrine: Positive for polydipsia, polyuria. Exam: 21:40 Eyes: Pupils equal round and reactive to light, extra-ocular motions intact. Lids and jr8 lashes normal. Conjunctiva and sclera are non-icteric and not injected. Cornea within normal limits. Periorbital areas with no swelling, redness, or edema. ENT: Nares patent. No nasal discharge, no septal abnormalities noted. Tympanic membranes are normal and external auditory canals are clear. Oropharynx with no redness, swelling, or masses, exudates, or evidence of obstruction, uvula midline. Mucous membranes dry. Neck: Trachea midline, no thyromegaly or masses palpated, and no cervical lymphadenopathy. Supple, full range of motion without nuchal rigidity, or vertebral point tenderness. No Meningismus. Cardiovascular: Regular rate and rhythm with a normal S1 and S2. No gallops, murmurs, or rubs. Normal PMI, no JVD. No pulse deficits. Respiratory: Lungs have equal breath sounds bilaterally, clear to auscultation and percussion. No rales, rhonchi or wheezes noted. No increased work of breathing, no retractions or nasal flaring. Abdomen/GI: Soft, non-tender, with normal bowel sounds. No distension or tympany. No guarding or rebound. No evidence of tenderness throughout. Back: No spinal tenderness. No costovertebral tenderness. Full range of motion. Skin: Warm, dry with normal turgor. Normal color with no rashes, no lesions, and no evidence of cellulitis. MS/ Extremity: Pulses equal, no cyanosis. Neurovascular intact. Full, normal range of motion. Neuro: Awake and alert, GCS 15, oriented to person, place, time, and situation. Cranial nerves II-XII grossly intact. Motor strength 5/5 in all extremities. Sensory grossly intact. Cerebellar exam normal. Normal gait. Vital Signs: 21:09 BP 144 / 92; Pulse 94; Resp 20; Temp 99.4; Pulse Ox 96% on R/A; Weight 85.73 kg; Height tl1 5 ft. 4 in. (162.56 cm); Pain 0/10; 22:31 BP 142 / 57; Pulse 87; Resp 18; Pulse Ox 100% ; ea 23:15 BP 140 / 60; Pulse 88; Resp 18; Temp 98.8; Pulse Ox 97% on R/A; ea 21:09 Body Mass Index 32.44 (85.73 kg, 162.56 cm) tl1 MDM: 21:11 Patient medically screened. jr8 23:05 Data reviewed: vital signs, nurses notes, lab test result(s). Data interpreted: Pulse jr8 oximetry: on room air is 100 %. Interpretation: normal. Counseling: I had a detailed discussion with the patient and/or guardian regarding: the historical points, exam findings, and any diagnostic results supporting the discharge/admit diagnosis, lab results, the need for outpatient follow up, a family practitioner, to return to the emergency department if symptoms worsen or persist or if there are any questions or concerns that arise at home. Response to treatment: the patient's symptoms have markedly improved after treatment, patient is well hydrated. ED course: Patient feeling much better. Glucose now at 277. Will adjust her metformin. To f/u with PCP in next couple days if possible. If worse to come back. Patient good with this . 06/19 21:26 Order name: Glucose, Ancillary Testing; Complete Time: 21:31 EDMS 06/19 21:32 Order name: CBC with Diff; Complete Time: 22:08 jr8 06/19 21:32 Order name: Basic Metabolic Panel; Complete Time: 22:16 jr8 06/19 21:55 Order name: Urine Dipstick--Ancillary (enter results) ct 06/19 23:15 Order name: Glucose, Ancillary Testing; Complete Time: 23:19 EDMS 06/19 21:32 Order name: IV; Complete Time: 21:48 jr8 Administered Medications: 21:56 Drug: NS 0.9% 1000 ml Route: IV; Rate: 1000 ml; Site: right forearm; mg2 23:00 Follow up: Response: No adverse reaction; IV Status: Completed infusion; IV Intake: ea 1000ml 21:56 Drug: Insulin Regular Human 10 units {Co-Signature: sonido (Angela Sims RN).} Route: IVP; mg2 Site: right forearm; 22:30 Follow up: Response: No adverse reaction ea Disposition: 06/19/19 23:06 Discharged to Home. Impression: Hyperglycemia, unspecified. - Condition is Stable. - Discharge Instructions: Hyperglycemia, Blood Glucose Monitoring, Adult. - Prescriptions for metformin 750 mg Oral tablet extended release 24 hr - take 2 tablet by ORAL route once daily with the evening meal; 60 tablet. - Medication Reconciliation Form, Thank You Letter, Antibiotic Education, Prescription Opioid Use form. - Follow up: Private Physician; When: 2 - 3 days; Reason: Recheck today's complaints, Continuance of care, Re-evaluation by your physician. - Problem is new. - Symptoms have improved. Addendum: 06/21/2019 06:18 Co-signature as Attending Physician, Clovis Gaytan MD I agree with the assessment and t w4 plan of care. Signatures: Dispatcher [employer] EDMS Sergo Medina PA PA jr8 Xiomara Aponte, RN RN tl1 Angela Sims RN Clovis Morton ea, MD MD tw4 Keshawn Gilliam RN RN mg2 Angela Sims RN, ea Corrections: (The following items were deleted from the chart) 06/19 23:25 23:06 06/19/2019 23:06 Discharged to Home. Impression: Hyperglycemia, unspecified. ea Condition is Stable. Forms are Medication Reconciliation Form, Thank You Letter, Antibiotic Education, Prescription Opioid Use. Follow up: Private Physician; When: 2 - 3 days; Reason: Recheck today's complaints, Continuance of care, Re-evaluation by your physician. Problem is new. Symptoms have improved. jr8
[2019-06-20 00:18] LABS: Urine Blood NEGATIVE (NEG); Urine Glucose 2+ (NEG); Urine Protein NEGATIVE (NEG); Urine Specific Gravity 1.015 (1.005-1.030); Urine pH 5.5 (5.0-7.0)
[2019-06-20 19:43] VITALS: BP 140/60; TEMP 98.8; O2SAT 97
== END 2019-06-19 23:25 | disposition home or self-care (01) ==
LOC: ER 20:51
DX: E11.65 Type 2 diabetes mellitus with hyperglycemia (principal); F17.210 Nicotine dependence, cigarettes, uncomplicated; I10 Essential (primary) hypertension; E78.00 Pure hypercholesterolemia, unspecified; Z79.82 Long term (current) use of aspirin; Z88.1 Allergy status to other antibiotic agents; Z88.2 Allergy status to sulfonamides; Z88.5 Allergy status to narcotic agent; Z88.8 Allergy status to other drugs, medicaments and biological substances
CPT/HCPCS: 36415; 80048; 81003; 82947; 85025; 96361; 96374; 99284; J7030

== ENCOUNTER 2020-05-07 14:25 | Inpatient (IN) | payer SELFPAY ==
--- OUTSIDE RECORDS SUMMARY | 2020-05-07 14:28 | XMS REPORT | Clinical Summary ---
:1960 Author Organization [facility] Address [address] [place] [address] Care Team Providers Name Role Phone Unavailable Primary Care Provider Unavailable Allergies Active Allergy Reactions Severity Noted Date Comments Sulfamethoxazole-Trimethoprim Rash Low 12/07/2018 Medications Medication Sig Dispensed Refills Start Date End Date Status carvedilol (COREG) Take 1 tablet 60 tablet 2 12/11/2018 Active 12.5 MG (12.5 mg total) tabletIndications: by mouth 2 (two) hypertension times daily with breakfast and dinner. ranitidine (ZANTAC) Take 150 mg by 0 Active 150 MG tablet mouth 2 (two) times daily. omeprazole Take 40 mg by 0 Activ e (PRILOSEC) 40 MG mouth daily. capsule potassium gluconate Take by mouth. 0 Active 550 mg (90 mg) Tab amLODIPine (NORVASC) Take 1 tablet 30 tablet 2 12/11/2018 Active 10 MG tablet (10 mg total) by mouth daily. atorvastatin Take 1 tablet 30 tablet 2 12/11/2018 Ac tive (LIPITOR) 40 MG (40 mg total) by tablet mouth nightly. glimepiride (AMARYL) Take 1 tablet (1 30 tablet 2 12/11/2018 Active 1 MG tablet mg total) by mouth every morning before breakfast. aspirin 81 MG Take 1 tablet 360 tablet 0 12/12/2018 12/12/2019 chewable tablet (81 mg total) by mouth daily. multivitamin Take 1 tablet by 360 tablet 0 12/12/2018 12/12/19 20 (THERAGRAN) tablet mouth daily. Active Problems Problem Noted Date Type 2 diabetes mellitus 12/08/2018 Hypokalemia 12/08/2018 Hypomagnesemia 12/08/2018 Alcohol abuse 12/08/2018 Essential hypertension 12/08/2018 Stroke 12/07/2018 Status post administration of tPA (rtPA) in a [facility] facility within 12/07/2018 the last 24 hours prior to admission to current facili ty Social History Tobacco Use Types Packs/Day Years Used Date Current Some Day Smoker 1 10 Smokeless Tobacco: Never Used Tobacco Cessation: Ready to Quit: Yes; C ounseling Given: Yes Comments: 1 pack every 2 [address] for the [facility] 10 years Alcohol Use Drinks/Week oz/Week Comments Yes drinks occcasion ally run, last drank 12/06/18 Sex Assigned at Date Recorded Not on file Last Filed Vital Signs Not on file Plan of Treatment Health Maintenance Due Date Last Done Comments BREAST CANCER SCREENING 1960 COLON CANCER SCREENING COLONOSCOPY 1960 PNEUMOCOCCAL VACCINE 0-64 YRS (1 of 1 - PPSV23) 1964 DIABETIC EYE EXAM 1968 DIABETIC FOOT EXAM 1968 URINE MICROALBUMIN 1968 CERVICAL CANCER SCREENING PAP ONLY (Age 21-65) 11/05/1979 HEMOGLOBIN A1C 06/09/2019 12/08/2018 INFLUENZA VACCINE (#1) 2020 LIPID PANEL 12/08/2021 12/08/2018 Results Not on fileafter 05/07/2019 Advance Directives For more information, please contact: [phone] Code Status Date Activated Date Inactivated Comments Full Code 12/07/2018 6:12 PM 12/11/2018 5:47 PM This code status was determined by: Patient
--- OUTSIDE RECORDS SUMMARY | 2020-05-07 14:29 | XMS REPORT | Continuity of Care Document ---
:1960 Author Organization [employer] Care Team Providers Name Role Phone [employer] Unavailable Un available Problems Problem Status Onset Classification Date Comments Sourc e Date Reported PANCREATITIS Active 10/31/19 15 Diverticulitis Resolved Problem 2014 MH (disorder) [facility] Hypertensive Resolved Problem 2014 MH disorder, [facility] systemic arterial (disorder) CHRONIC Active PANCREATITIS [facility] Medications Medication Details Route Status Patient Ordering Order Source Instructions Provider Date Pneumovax 23 Notes: (Same Inactive as: 2014 Pneumovax 23) Refrigerate tramadol 100.4 F, X Active hydrochloride 50 MG 4 day, # 30 2014 Oral Tablet [Ultram] tab, 0 Refill(s) Lisinopril Notes: (Same No Longer as: Active 2014 Prinivil, Zestril) Hydrochlorothiazide Notes: (Same No Longer 10/31 as: Active 2014 Microzide) With food. pneumococcal Notes: (Same Inactive capsular as: 2014 polysaccharide type Pneumovax 1 vaccine / 23) pneumococcal Refrigerate capsular polysaccharide type 10A vaccine / pneumococcal capsular polysaccharide type 11A vaccine / pneumococcal capsular polysaccharide type 12F vaccine / pneumococcal capsular polysacchar carvedilol Notes: Give No Longer with food. Active 2014 (Same As: Coreg) K-Dur Notes: (Same Inactive as: K-Dur 2014 20) "Do Not Crush" With food and full glass of water Zofran Notes: (Same No Longer as: Zofran) Active 2014 MEDICATION WASTE Product Size: 4 mg Product Wasted: ___ mg Morphine Notes: (Same No Longer as:MORPhine Active 2014 Sulfate) Dilaudid 1 mg, 1 mL, No Longer Route: IVP, Active 2014 Drug form: INJ, Q6H, Dosing Weight 81.932, kg, PRN Pain Score 7-10, Priority: STAT, Start date: 10/30/14 6:25:00, Duration: 30 day, Stop date: 11/29/14 6:24:00 Labetalol Notes: (Same No Longer as: Active 2014 Normodyne, Trandate) Push over 2 minutes Give bolus over 2-3 minutes. normal saline 0.9% 1,000 mL, No Longer H IV 1,000 mL Rate: 100 Active 2014 ml/hr, Infuse over: 10 hr, Route: IV, Dosing Weight 81.932 kg, Total Volume: 1,000, Start date: 10/30/14 6:23:00, Duration: 30 day, Stop date: 11/29/14 6:22:00 carvedilol 12.5 mg 12.5 mg = 1 Active H oral tablet tab, PO, 2014 BID, 0 Refill(s) Hydrochlorothiazide 12.5 mg, PO, No Longer 10/30 Daily, 0 Active 2014 [facility] Refill(s) Lisinopril 20 mg, PO, Active Daily, 0 2014 [facility] Refill(s) Allergies, Adverse Reactions, Alerts Substance Category Reaction Severity Reaction Status Date Comments S ource type Reported Bactrim Assertion Drug Active allergy [facility] Immunizations Immunization Date Site Status Last Comments Source Given Updated pneumococcal Right completed [facility] 23-valent 5 deltoid vaccine Results Order Name Results Value Reference Date Interpretation Comments Cadence rce Range CHEM PANEL Lipase Lvl 545 73 - 393 11/01 [facility] CHEM PANEL Lipase Lvl 660 73 - 393 10/31 [facility] ELECTROLYTES Sodium Lvl 134 135 - 145 10/31 [facility] ELECTROLYTES Potassium 3.5 3.5 - 5.1 10/31 [facility] ELECTROLYTES Calcium Lvl 7.8 8.5 - 10.5 10/31 [facility] ELECTROLYTES Chloride Lvl 98 95 - 109 10/31 [facility] ELECTROLYTES eGFR 72 10/31 <sup>1</sup>R esult [facility] Comment: The eGFR is calculated using the [...] ELECTROLYTES Globulin 3.0 2.0 - 4.0 10/31 [facility] ELECTROLYTES A/G Ratio 1.0 0.7 - 1.6 10/31 [facility] ELECTROLYTES AST 45 0 - 37 10/31 [facility] ELECTROLYTES ALT 57 0 - 65 10/31 [facility] ELECTROLYTES Alk Phos 49 39 - 136 10/31 [facility] ELECTROLYTES Bili Total 0.7 0.2 - 1.3 10/31 [facility] ELECTROLYTES Glucose Lvl 145 70 - 99 10/31 <sup>3</sup>I M H /2014 nterpretive [facility] Data: Adult reference range values reflect the clinical guidelines
of the [place] [employer]. ELECTROLYTES Creatinine 0.9 0.5 - 1.4 10/31 MH Lvl /2014 [facility] ELECTROLYTES BUN 12 7 - 22 10/31 [facility] ELECTROLYTES B/C Ratio 13 6 - 25 10/31 [facility] ELECTROLYTES CO2 30 24 - 32 10/31 [facility] ELECTROLYTES Total 6.1 6.4 - 8.4 10/31 MH Protein [facility] ELECTROLYTES AGAP 9.5 10.0 - 10/31 MH 20.0 /2014 [facility] ELECTROLYTES Albumin Lvl 3.1 3.5 - 5.0 10/31 [facility] HEMATOLOGY Eosinophils 0.2 0.0 - 0.5 10/31 MH # /2015 [facility] HEMATOLOGY Macrocyte 2+ None Seen 10/31 MH *ABN* /2014 [facility] (10/31/14 5:18 AM) HEMATOLOGY Monocytes # 0.5 0.0 - 0.8 10/31 [facility] HEMATOLOGY Eosinophils 2.3 0.0 - 4.0 10/31 [facility] HEMATOLOGY Lymphocytes 1.2 1.0 - 5.5 10/31 MH # /2014 [facility] HEMATOLOGY Basophils 0.3 0.0 - 1.0 10/31 [facility] HEMATOLOGY Segs-Bands # 6.1 1.5 - 8.1 10/31 [facility] HEMATOLOGY Monocytes 6.1 2.0 - 12.0 10/31 [facility] HEMATOLOGY Lymphocytes 15.1 20.0 - 10/31 MH 40.0 /2014 [facility] HEMATOLOGY Segs 76.2 45.0 - 10/31 MH 75.0 /2014 [facility] HEMATOLOGY MCHC 33.9 32.0 - 10/31 MH 36.0 /2014 [facility] HEMATOLOGY MCV 104.7 80.0 - 10/31 MH 98.0 /2014 [facility] HEMATOLOGY Hct 35.5 36.0 - 10/31 MH 48.0 /2014 [facility] HEMATOLOGY Hgb 12.0 12.0 - 10/31 MH 16.0 /2014 [facility] HEMATOLOGY WBC 8.0 3.7 - 10.4 10/31 [facility] HEMATOLOGY RBC 3.39 4.20 - 10/31 MH 5.40 /2014 [facility] HEMATOLOGY Platelet 128 133 - 450 10/31 [facility] HEMATOLOGY MPV 9.5 7.4 - 10.4 10/31 [facility] HEMATOLOGY RDW 12.7 11.5 - 10/31 MH 14.5 [facility] HEMATOLOGY MCH 35.5 27.0 - 10/31 MH 31.0 [facility] LIPIDS HDL 77 >=61 mg/dL 10/31 [facility] LIPIDS Chol 172 <=199 10/31 mg/dL [facility] LIPIDS Trig 67 <=149 10/31 mg/dL [facility] LIPIDS LDL 82 <=99 mg/dL 10/31 (Calculated) [facility] LIPIDS CHD Risk 2.23 3.90 - 10/31 MH 5.80 /2014 [facility] LIPIDS VLDL 13 10/31 [facility] CHEM PANEL Lipase Lvl 1352 73 - 393 10/30 [facility] CHEM PANEL Alk Phos 50 39 - 136 10/30 [facility] CHEM PANEL Bili Total 1.0 0.2 - 1.3 10/30 [facility] CHEM PANEL Albumin Lvl 3.6 3.5 - 5.0 10/30 [facility] CHEM PANEL CO2 33 24 - 32 10/30 [facility] CHEM PANEL Total 6.4 6.4 - 8.4 10/30 [facility] CHEM PANEL ALT 84 0 - 65 10/30 [facility] CHEM PANEL AST 92 0 - 37 10/30 [facility] CHEM PANEL Glucose Lvl 105 70 - 99 10/30 <sup>4</sup>I nterpretive [facility] Data: Adult reference range values reflect the clinical guidelines
of the [place] [employer]. CHEM PANEL BUN 30 7 - 22 10/30 [facility] CHEM PANEL eGFR 46 10/30 <sup>2</sup>R esult [facility] Comment: The eGFR is calculated using the [...] PANEL Potassium 3.1 3.5 - 5.1 10/30 [facility] CHEM PANEL Calcium Lvl 8.3 8.5 - 10.5 10/30 [facility] CHEM PANEL Chloride Lvl 96 95 - 109 10/30 [facility] CHEM PANEL Sodium Lvl 136 135 - 145 10/30 [facility] CHEM PANEL Creatinine 1.3 0.5 - 1.4 10/30 [facility] CHEM PANEL Globulin 2.8 2.0 - 4.0 10/30 [facility] CHEM PANEL A/G Ratio 1.3 0.7 - 1.6 10/30 [facility] CHEM PANEL B/C Ratio 23 6 - 25 10/30 [facility] CHEM PANEL AGAP 10.1 10.0 - 10/30 MH 20.0 /2014 [facility] HEMATOLOGY Macrocyte 1+ None Seen 10/30 *ABN* /2014 [facility] (10/30/14 7:48 AM) HEMATOLOGY Segs-Bands # 5.5 1.5 - 8.1 10/30 [facility] HEMATOLOGY Basophils 0.7 0.0 - 1.0 10/30 [facility] HEMATOLOGY Eosinophils 1.4 0.0 - 4.0 10/30 [facility] HEMATOLOGY Basophils # 0.1 0.0 - 0.2 10/30 [facility] HEMATOLOGY Eosinophils 0.1 0.0 - 0.5 10/30 MH # /2014 [facility] HEMATOLOGY Lymphocytes 1.6 1.0 - 5.5 10/30 MH # /2014 [facility] HEMATOLOGY Monocytes # 0.5 0.0 - 0.8 10/30 [facility] HEMATOLOGY Monocytes 6.7 2.0 - 12.0 10/30 /2014 [facility] HEMATOLOGY Lymphocytes 20.3 20.0 - 10/30 MH 40.0 /2014 [facility] HEMATOLOGY Segs 70.9 45.0 - 10/30 75.0 /2014 [facility] HEMATOLOGY RDW 12.9 11.5 - 10/30 14.5 /2014 [facility] HEMATOLOGY Hgb 12.8 12.0 - 10/30 16.0 /2014 [facility] HEMATOLOGY RBC 3.56 4.20 - 10/30 5.40 /2014 [facility] MPV 8.3 7.4 - 10.4 10/30 [facility] HEMATOLOGY Platelet 163 133 - 450 10/30 [facility] HEMATOLOGY MCV 103.3 80.0 - 10/30 98.0 /2014 [facility] HEMATOLOGY Hct 36.8 36.0 - 10/30 48.0 /2014 [facility] HEMATOLOGY MCHC 34.9 32.0 - 10/30 36.0 /2014 [facility] HEMATOLOGY MCH 36.1 27.0 - 10/30 31.0 /2014 [facility] WBC 7.8 3.7 - 10.4 10/30 [facility] Pathology Reports No Data Provided for This Section Diagnostic Reports Report Value Date Source Abdomen w/wo contrast DYNAMIC MRI OF THE ABDOMEN WITH AND WI THOUT CONTRAST: 10/31/2014 [facility] CLINICAL HISTORY: Acute abdominal pain. TECHNIQUE AND FINDINGS: A dynamic precontrast and po stcontrast MRI of the liver was performed on a 1.5 savage magnet. Multiple imaging sequences were obtained including coronal T1 localizer, axial T1, axial T2 FSE fat-suppresse d, axial SSFSE, axial in pha se/out of phase, and dynamic postcontrast axial T1 SPGR. COMPARISON: Abdominal ultrasound 10/30/2014 1. Normal size liver with fa tty infiltration on out of phase images associated with areas of sparing adjacent to the gallbladder and kia hepatis. No focal hepatic lesions are otherwise appreciated on the precontrast and dynamic postcontrast images of the liver. 2. Normal gallbladder withou t cholelithiasis, pericholecystic inflammation, or biliary dilatation. 3. Although evaluation is mi ldly compromised by artifact, induration, stranding, and fluid is seen involving the pancreas and peripancreatic fat extending into the left anterior pararenal fascia. Trace perisplenic and perihepatic fluid are also noted. Findings are suspicious for acute pancreatitis. No focal pancreatic lesion is appreciated on the precontrast or post contrast images. The pancreatic ginny t is not dilated. No evidenc e of pancreatic pseudocyst, abscess, or necrosis. Heterogeneous areas of enhancement in the region of the pancreatic tail are likely related to inflammation or partial volume averaging artifact. 4. Normal kidneys, adrenal glands, spleen, and a bdominal aorta. 5. No lymphadenopathy or mass. 6. [...] Date Comments Source Heart Rate 61 11/01/2014 [facility] Temperature Oral (F) 98.5 F 11/01/2014 [facility] Systolic (mm Hg) 146 11/01/2014 [facility] Diastolic (mm Hg) 87 [facility] Resp[facility] 17 11/01/2014 [facility] Heart Rate 58 11/01/2014 [facility] Systolic (mm Hg) 136 [facility]01[facility] Diastolic (mm Hg) 80 11/01/[address] [facility] [address] Respitory Rate 17 11/01/2014 [facility] Temperature Oral (F) 98.6 F 11/01/2014 [facility] Respitory Rate 17 11/01/2014 [facility] Systolic (mm Hg) 143 11/01/2014 [facility] t Diastolic (mm Hg) 81 11/01/[address] [facility] [address] Temperature Oral (F) 98 F 11/01/2014 [facility] Heart Rate 66 11/01/2014 [facility] Weight 81.932 10/30/2014 [facility] BMI Calculated 31 10/30/2014 [facility] Height 162.56 cm 10/30/2014 [facility] Encounters Location Location Encounter Encounter Reason Attending ADM DC Stat us Source Details Type Number For Provider Date Date Visit [facility] Inpatient [id number] Aditya 10/30 11/01 [facility] Santosh /2014 [facility] Procedures Procedure Code Date Perfomer Comments Source section [id number] [facility] Assessment and Plan Assessment and Plan Date Source Extracted from:Title: Clinical Document 11/01/2014 [facility] Author: Aditya Frost DO Date: 10/31/14 Progress Daily [facility] SUBJECTIVE Pt is feeling better with minimal abdominal pain. denies fev er or chills OBJECTIVE Vital Signs (last 24 hrs) Last C harted Minimum Maximum Temp H 99.3 (OCT 31 08:08) 97.3 (OCT 31 00:04) H 9 9.3 (OCT 31 08:08) Heart Rate 62 (OCT 31 08:08) 60 (OCT 30 16:00) 74 (OCT 31 03:50) Resp Rate 18 (OCT 31 08:08) 18 (OCT 31 00:04) 20 (OCT 30 16:00) SBP 131 (OCT 31 08:08) 110 (OCT 31 00:04) 138 (A WA 03:50) DBP 81 (OCT 31 08:08) 69 (OCT 30 16:00) 83 (OCT 31 03:50) Labs (Last four charted values) WBC 8.0 (OCT 31) 7.8 (OCT 30) Hgb 12.0 (OCT 31) 12.8 (OCT 30) Hct L 35.5 (OCT 31) 36.8 (OCT 03 9) Plt L 128 (OCT 31) 163 (OCT 30) Na L 134 (OCT 31) 136 (OCT 30) K 3.5 (OCT 31) L 3.1 (OCT 30) CO2 30 (OCT 31) H 33 (OCT 30) Cl 98 (OCT 31) 96 (OCT 30) Cr 0.9 (OCT 31) 1.3 (OCT 30) BUN 12 (OCT 31) H 30 (OCT 30) Glucose Random H 145 (OCT 31) H 105 (OCT 03 9) Ca L 7.8 (OCT 31) L 8.3 (OCT 03) Input/Output Record In Out Bal 10/31 24hr Tot 2 0 2 10/30 24hr Tot 2407 [id number] ASSESSMENT and EXAM Gen. Pt is AOX4 in no acute distress HEET: Normocephalic, nontraumatic. NECK: Supple, no JVD or Lymphadenopathy LUNGS: Clear on auscultation B/l with no wheezing or crackl es HEART: S1, S2.RRR with no murmurs ABDOMEN: Soft, mild diffuse tenderness CENTRAL NERVOUS SYSTEM: Patient moving all extremities ravindra sly well. LOWER EXTREMITIES: No C/C/E PLAN and TREATMENT Pt admitted with acute pancreatitis -Pt is feeling better -lipase trending down -Will start on reg diet -C/w IVF DIAGNOSES and PROBLEMS Acute pancreatitis Chronic diarrhea HTN Scheduled Meds (3):carvedilol, hydrochlorothiazide, lisinopr il Unscheduled Meds: None PRN Meds (4):hydromorphone (Dilaudid), l abetalol, morphine Sulfate, ondansetron (Zofran) One Time Meds (1):(Completed) potassium chloride (K-Dur 20) Continuous Infusions (1):Sodium Chloride 0.9% IV 1,000 mL (normal saline 0.9% IV 1,000 mL) Plan of Care No Data Provided for This Section Social History Social History Date Source Social History TypeResponse 10/30/2014 [facility] Substance Abuse Use: None. Alcohol Current, Type Liquor. Frequency: 1-2 ti mes per week. Previous treatment: None. Smoking Status [...]
--- OUTSIDE RECORDS SUMMARY | 2020-05-07 14:30 | XMS REPORT | Continuity of Care Document ---
:1960 Author Organization [facility] t Address [address] [place] [address] Care Team Providers Name Role Phone KAREN CHIANG Attending Clinician Unavailable Teqwimdeb Attending Clinician KAREN CHIANG Admitting Clinician Unavailable [facility] Admitting Clinician Problems Condition Condition Condition Status Onset Resolution Last Treating Co mments Source Name Details Category Date Date Treatment Clinician Date Type 2 Type [address] [facility] diabetes diabetes 12[facility]08 [facility] mellitus mellitus 00:00: Medica l 00 Center Hypokalemi Hypokalemi Disease Active [facility] a a 12[facility]08 [facility] - 00:00: Medical 00 Hermon Hypomagnes Hypomagnes Disease Active [facility] emia emia 12-08 [facility] - 00:00: Medical 00 Center Alcohol Alcohol Disease Active [facility] abuse abuse 12-08 [facility] - 00:00: Medical 00 Hermon Essential Essential Disease Active [facility] hypertensi hypertensi 12-08 Carmen kes - on on 00:00: Medical 00 Center Stroke Stroke Disease Active 2018- [facility] - 00:[facility]: Medical 00 Center Status Status Disease Active [facility] post post 12-07 [facility] - administra administra 00:00: Me dical tion of tion of 00 Center tPA (rtPA) tPA (rtPA) in a in a different different facility facility within the within the last 24 last 24 hours hours prior to prior to admission admission to current to current facility facility PANCREATIT Diagnosis Active 2014-11-05 Memoria IS 10-30 21:50:00 l 03:39: [place] PANCREATIT 00 IS Active 5 [facility] Type 2 Type [address] [facility] diabetes diabetes [facility] - mellitus mellitus Memori a without without l complicati complicati Ou tpati on on ent Clinics History of History of Problem Active [facility] hypokalemi hypokalemi Carmen kes - a a [facility] Pain in Pain in Problem Active [facility] left knee left knee [facility] - [facility] Vitamin D Vitamin D Problem Active [facility] deficiency deficiency Carmen kes - [facility] Clinics Uncontroll Uncontroll Problem Active [facility] ed type 2 ed type 2 [facility] - diabetes diabetes Memori a mellitus mellitus l without without Outpati complicati complicati en t on, on, Clinics without without long-term long-term current current use of use of insulin insulin Other Other Problem Active [facility] chronic chronic [facility] pain pain [facility] Hyperlipid Hyperlipid Problem Active [facility] emia [facility] Hypothyroi Hypothyroi Problem Active [facility] dism dism [facility] Dizziness Dizziness Problem Active [facility] Hypertensi Hypertensi Problem Active [facility] Depression Depression Problem Active [facility] Allergic Allergic Problem Active [facility] rhinitis, rhinitis, [facility] - seasonal seasonal Memori a l Outpati ent Clinics Diverticul Problem Resolve 2014 Memoria itis d 04:20:14 l (disorder) Sebastian n Diverticul itis (disorder) Resolved Problem 2014 [facility] Hypertensi Problem Resolve 2014 Memoria ve d 04:20:14 l disorder, Tobias systemic Hypertensi arterial ve (disorder) disorder, systemic arterial (disorder) Resolved Problem 2014 [facility] CHRONIC Diagnosis Active 2014-11-05 Me moria PANCREATIT 21:50:00 l IS CHRONIC [place] PANCREATIT IS Active [facility] Allergies, Adverse Reactions, Alerts Allergy Allergy Status Severity Reaction(s) Onset Inactive Treating Comm ents Source Name Type Date Date Clinician Sulfamet Propensi Active Rash 2019-[address] hoxazole ty to 12-07 [facility] - -Trimeth adverse 00:00: Medical oprim reaction 00 Center s Sulfa Adverse Active Info Not [facility] Reaction Available [facility] - Nikolai brandt Outpati ent Clinics Bactrim Bactrim Active Nikolai Collado Social History Social Habit Start Date Stop Date Quantity Comments Source Sex Assigned At [facility] Cigarettes smoked 2018-12-07 2018-12-07 [facility] - current (pack per 00:00:00 00:00:00 [facility] Center day) - Reported Cigarette 2018-12-07 2018-12-07 [facility] - pack-years 00:00:00 00:00:00 [facility] Tobacco use and 2018-12-07 2018-12-07 Never used [facility] - exposure 00:00:00 00:00:00 [facility] Alcohol intake 2018-12-07 2018-12-07 Current drinker of [facility] - 00:00:00 00:00:00 alcohol (finding) [facility] Tobacco Comment 2018-12-07 2018-12-07 1 pack every 2 days [facility] - 00:00:00 00:00:00 for the last 10 Medical C enter years Alcohol Comment 2018-12-07 2018-12-07 drinks occcasionally [facility] - 00:00:00 00:00:00 run, last drank Medical C enter 12/06/18 Social History 2014-10-30 2014-10-30 [facility] 10:31:19 10:31:19 [place] Smoking Status Start Date Stop Date Source Current some day smoker 2018-12-07 00:00:00 [facility] Medications Ordered Filled Start Stop Current Ordering Indication Dosage Frequency Signature Comments Components Source Medication Medication Date Date Medication? Clinician (SIG) Name Name aspirin 81 2018- 2020- No 81mg QD Take [address] [facility] MG chewable 6-11 06-10 tablet (81 L ukes - tablet 00:00: 23:59 mg total) Medic al 00 :00 by mouth Center daily. multivitami 2020- No 1{tbl} QD Take [address] n 6-11 06-[address] [facility] - (THERAGRAN) 00:00: 23:59 mouth Medi gurinder tablet 00 :00 daily. Hermon ranitidine 2019-0 Yes 150mg Q.5D Take [address] (ZANTAC) 6-10 mg by [facility] - 150 MG 15:47: mouth 2 Medical tablet 46 (two) Center times daily. omeprazole Yes 40mg QD Take [address] (PRILOSEC) 6-10 by mouth [facility] - 40 MG 15:47: daily. Medical capsule 46 Center potassium Yes Take by [facility] t gluconate 6-10 mouth. [facility] - 550 mg (90 15:47: Medical mg) Tab 46 Center carvedilol Yes hypertensio 12.5mg Take [address] (COREG) 6-10 n tablet [facility] - 12.5 MG 00:00: (12.5 mg Medica l tablet 00 total) by Center mouth 2 (two) times daily with breakfast and dinner. amLODIPine Yes 10mg QD Take 1 [facility] t (NORVASC) 6-10 tablet (10 [facility] - 10 MG 00:00: mg total) Medical tablet 00 by mouth Center daily. atorvastati Yes 40mg QD Take [address] n (LIPITOR) 6-10 tablet (40 Carmen kes - 40 MG 00:00: mg total) Medical tablet 00 by mouth Center nightly. glimepiride Yes 1mg Take [address] [facility] (AMARYL) 1 6-10 tablet (1 [facility] - MG tablet 00:00: mg total) Med ical 00 by mouth Center every morning before breakfast. Metformin Metformin Yes Nancy [address] HCl HCl 4-27 Millender with a [facility] - 00:00: meal Memoria 00 l Outpati ent Clinics Pneumovax No Notes: Memori a 23 11-01 (Same as: l 17:21: Pneumovax Tobias 00 23) Refrigerat e tramadol Yes 100.4 F, Abad charlene hydrochlori 11-01 X 4 day, # l de 50 MG 15:11: 30 tab, 0 Herm debbie Oral Tablet 00 Refill(s) [Ultram] Lisinopril No Notes: Memor ia 4-30 (Same as: l 14:00: Prinivil, [place] 00 Zestril) Hydrochloro No Notes: Abad charlene thiazide 4-30 (Same as: l 14:00: Microzide) Tobias With food. pneumococca Yes Notes: Abad charlene l capsular 10-31 (Same as: l polysacchar 14:00: Pneumovax H ermann ricky type 1 00 23) vaccine / Refrigerat pneumococca e l capsular polysacchar ricky type 10A vaccine / pneumococca l capsular polysacchar ricky type 11A vaccine / pneumococca l capsular polysacchar ricky type 12F vaccine / pneumococca l capsular polysacchar carvedilol No Notes: Memor ia - Give with l 22:00: food. [place] 00 (Same As: Coreg) K-Dur 20 No Notes: Memoria 10-30 (Same as: l 15:30: K-Dur 20) Tobias 00 "Do Not Crush" With food and full glass of water Zofran No Notes: Memoria 10-30 (Same as: l 11:34: Zofran) [place] 00 MEDICATION WASTE Product Size: 4 mg Product Wasted: ___ mg Morphine No Notes: Memoria 10-30 (Same l 11:26: as:MORPhin [place] 00 e Sulfate) Dilaudid No 1 mg, 1 Memori a -29 mL, Route: l 11:25: IVP, Drug form: INJ, Q6H, Dosing Weight 81.932, kg, PRN Pain Score 7-10, Priority: STAT, Start date: 10/30/14 6:25:00, Duration: 30 day, Stop date: 11/29/14 6:24:00 Labetalol No Notes: Memori a 10-30 (Same as: l 11:23: Normodyne, [place] 00 Trandate) Push over 2 minutes Give bolus over 2-3 minutes. normal No 1,000 mL, Memori a saline 0.9% 10-30 Rate: 100 l IV 1,000 mL 11:23: ml/hr, Infuse over: 10 hr, Route: IV, Dosing Weight 81.932 kg, Total Volume: 1,000, Start date: 10/30/14 6:23:00, Duration: 30 day, Stop date: 11/29/14 6:22:00 carvedilol Yes 12.5 mg = Me moria 12.5 mg 10-30 1 tab, PO, l oral tablet 10:34: BID, 0 Herm debbie 00 Refill(s) Hydrochloro No 12.5 mg, Me moria thiazide 10-30 PO, Daily, l 10:34: 0 [place] 00 Refill(s) Lisinopril Yes 20 mg, PO, M emoria 10-30 Daily, 0 l 10:34: Refill(s) Tobias 00 Vital Signs Vital Name Observation Time Observation Value Comments Source Heart Rate 2014-11-01 17:00:00 [facility] [place] Temperature Oral (F) 2014-11-01 17:00:00 98.5 F [facility] [place] Systolic (mm Hg) 2014-11-01 17:00:00 Abad rial [place] Diastolic (mm Hg) 2014-11-01 17:00:00 Mem orial [place] Respitory Rate 2014-11-01 17:00:00 Memori al [place] Heart Rate 2014-11-01 13:00:00 [facility] [place] Systolic (mm Hg) 2014-11-01 13:00:00 Abad rial [place] Diastolic (mm Hg) 2014-11-01 13:00:00 Mem orial [place] Respitory Rate 2014-11-01 13:00:00 Memori al [place] Temperature Oral (F) 2014-11-01 13:00:00 98.6 F [facility] [place] Respitory Rate 2014-11-01 09:01:00 Memori al [place] Systolic (mm Hg) 2014-11-01 09:01:00 Abad rial [place] Diastolic (mm Hg) 2014-11-01 09:01:00 Mem orial [place] Temperature Oral (F) 2014-11-01 09:01:00 98 F [facility] [place] Heart Rate 2014-11-01 09:01:00 Maxwell Collado Weight 2014-10-30 10:23:00 Maxwell Collado BMI Calculated 2014-10-30 10:23:00 Aleks Tilleyann Height 2014-10-30 10:23:00 162.56 cm Maxwell Collado Procedures Procedure Date / Time Performed Performing Clinician [facility] e section Maxwell balbuena Plan of Care Planned Activity Planned Date Details Comments Source Future Scheduled 2021-12-[address] [facility] - Test 00:00:00 (procedure) [code = Medical Center 84223104] Future Scheduled 2020-03-04 INFLUENZA VACCINE (#1) [facility] Test 00:00:00 [code = INFLUENZA Medical Ce nter VACCINE (#1)] Future Scheduled 2019-06-[address] Carmen kes - Test 00:00:00 measurement Medical Center (procedure) [code = 05424404] Future Scheduled 1979-11-[address] [facility] - Test 00:00:00 [facility] cervix (procedure) [code = 285336436] Future Scheduled [address] DIABETIC EYE EXAM [facility] - Test 00:00:00 [code = DIABETIC EYE Medical Center EXAM] Future Scheduled [address] - Test 00:00:00 examination Medical Center (regime/therapy) [code = 858674719] Future Scheduled 1968 Urine screening [facility] - Test 00:00:00 protein (procedure) [facility] [code = 375099670] Future Scheduled [address] [facility] - Test 00:00:00 0-64 YRS (1 of 1 - Medical C enter PPSV23) [code = PNEUMOCOCCAL VACCINE 0-64 YRS (1 of 1 - PPSV23)] Future Scheduled [address] [facility] - Test 00:00:00 [facility] breast (procedure) [code = 786585092] Future Scheduled [address] [facility] - Test 00:00:00 malignant neoplasm of [facility] colon (procedure) [code = 137864568] Encounters Start End Encounter Admission Attending Care Care Encounter Source Date/Time Date/Time Type Type Clinicians Facility Department ID 2017-12-01 2017-12-01 Outpatient Shiela Leyva [id number] [facility] 09:06:00 09:06:00 [facility] Medicine Medicine Outpati ent Clinics 2017-11-22 2017-11-22 Outpatient Shiela Leyva [id number] 13:28:00 13:28:00 [facility] Medicine Medicine Outpati ent [facility] 2017-10-28 2017-10-28 Outpatient Shiela Leyva [id number] [facility] 15:25:00 15:25:00 [facility] 2017-10-27 2017-10-27 Outpatient Shiela Leyva [id number] 11:53:00 11:53:00 [facility] 2017-10-25 2017-10-25 Outpatient Shiela Leyva [id number] 13:30:00 13:30:00 [facility] 2014-10-30 2014-11-01 Outpatient NEISHA Frost [facility] [id number] 05:18:00 16:02:00 Aditya 19 Results Test Description Test Time Test Comments Results Result Comments Source BASIC METABOLIC PANEL 2018-12-11 05:52:00 Test Item Value Reference Range Interpretation Comme nts SODIUM (BEAKER) (test code 135 meq/L 136-145 L = 381) POTASSIUM (BEAKER) (test 3.9 meq/L 3.5-5.1 code = 379) CHLORIDE (BEAKER) (test 101 meq/L 98-107 code = 382) CO2 (BEAKER) (test code = 25 meq/L 22-29 355) BLOOD UREA NITROGEN 11 mg/dL 7-21 (BEAKER) (test code = 354) CREATININE (BEAKER) (test 0.84 mg/dL 0.57-1.25 code = 358) GLUCOSE RANDOM (BEAKER) 157 mg/dL 70-105 H (test code = 652) CALCIUM (BEAKER) (test code 9.0 mg/dL 8.4-10.2 = 697) EGFR (BEAKER) (test code = 69 mL/min/1.73 sq m ESTIMATED GFR IS NOT 1092) ACCURATE CRE ATININE CLEARANCE IN OR EDICTING GLOMERULAR FILT RATION RATE. ESTIMATED GFR IS NOT APPLICABLE FOR DIALYSIS PATIENTS. CBC W/PLT COUNT & AUTO [id number] 04:21:00 Test Item Value Reference Range Interpretation Comments WHITE BLOOD CELL COUNT (BEAKER) 5.6 K/ L 3.5-10.5 (test code = 775) RED BLOOD CELL COUNT (BEAKER) 2.98 M/ L 3.93-5.22 L (test code = 761) HEMOGLOBIN (BEAKER) (test code = 10.1 GM/DL 11.2-15.7 L 410) HEMATOCRIT (BEAKER) (test code = 30.4 % 34.1-44.9 L 411) MEAN CORPUSCULAR VOLUME (BEAKER) 102.0 fL 79.4-94.8 H (test code = 753) MEAN CORPUSCULAR HEMOGLOBIN 33.9 pg 25.6-32.2 H (BEAKER) (test code = 751) MEAN CORPUSCULAR HEMOGLOBIN CONC 33.2 GM/DL 32.2-35.5 (BEAKER) (test code = 752) RED CELL DISTRIBUTION WIDTH 12.6 % 11.7-14.4 (BEAKER) (test code = 412) PLATELET COUNT (BEAKER) (test 318 K/CU MM 150-450 code = 756) MEAN PLATELET VOLUME (BEAKER) 9.9 fL 9.4-12.3 (test code = 754) NUCLEATED RED BLOOD CELLS 0 /100 WBC 0-0 (BEAKER) (test code = 413) NEUTROPHILS RELATIVE PERCENT 61 % (BEAKER) (test code = 429) LYMPHOCYTES RELATIVE PERCENT 27 % (BEAKER) (test code = 430) MONOCYTES RELATIVE PERCENT 9 % (BEAKER) (test code = 431) EOSINOPHILS RELATIVE PERCENT 2 % (BEAKER) (test code = 432) BASOPHILS RELATIVE PERCENT 0 % (BEAKER) (test code = 437) NEUTROPHILS ABSOLUTE COUNT 3.40 K/ L 1.56-6.13 (BEAKER) (test code = 670) LYMPHOCYTES ABSOLUTE COUNT 1.50 K/ L 1.18-3.74 (BEAKER) (test code = 414) MONOCYTES ABSOLUTE COUNT (BEAKER) 0.51 K/ L 0.24-0.36 H (test code = 415) EOSINOPHILS ABSOLUTE COUNT 0.12 K/ L 0.04-0.36 (BEAKER) (test code = 416) BASOPHILS ABSOLUTE COUNT (BEAKER) 0.02 K/ L 0.01-0.08 (test code = 417) IMMATURE GRANULOCYTES-RELATIVE 0 % 0-1 PERCENT (BEAKER) (test code = 2801) POCT-GLUCOSE [id number] 22:00:00 Test Item Value Reference Range Interpretation Comments POC-GLUCOSE METER 148 mg/dL 70-110 H TESTED AT [facility] (test code = [facility] 1538) [id number] POCT-GLUCOSE [id number] 17:06:00 Test Item Value Reference Range Interpretation Comments POC-GLUCOSE METER 224 mg/dL 70-110 H TESTED AT [place] [address] ([facility] (test code = [facility] 1538) [id number] POCT-GLUCOSE [id number] 12:39:00 Test Item Value Reference Range Interpretation Comments POC-GLUCOSE METER 214 mg/dL 70-110 H TESTED AT [place] [address] ([facility] (test code = [facility] 1538) [id number] POCT-GLUCOSE [id number] 08:26:00 Test Item Value Reference Range Interpretation Comments POC-GLUCOSE METER 166 mg/dL 70-110 H TESTED AT [place] [address] ([facility] (test code = [facility] 1538) [id number] COMPREHENSIVE METABOLIC [id number] 05:17:00 Test Item Value Reference Range Interpretation Comments TOTAL PROTEIN 6.3 gm/dL 6.0-8.3 (BEAKER) (test code = 770) ALBUMIN (BEAKER) 3.3 g/dL 3.5-5.0 L (test code = 1145) ALKALINE PHOSPHATASE 84 U/L 40-150 (BEAKER) (test code = 346) BILIRUBIN TOTAL 0.4 mg/dL 0.2-1.2 (BEAKER) (test code = 377) SODIUM (BEAKER) (test 137 meq/L 136-145 code = 381) POTASSIUM (BEAKER) 3.9 meq/L 3.5-5.1 (test code = 379) CHLORIDE (BEAKER) 98 meq/L 98-107 (test code = 382) CO2 (BEAKER) (test 31 meq/L 22-29 H code = 355) BLOOD UREA NITROGEN 10 mg/dL 7-21 (BEAKER) (test code = 354) CREATININE (BEAKER) 0.79 mg/dL 0.57-1.25 (test code = 358) GLUCOSE RANDOM 161 mg/dL 70-105 H (BEAKER) (test code = 652) CALCIUM (BEAKER) 9.2 mg/dL 8.4-10.2 (test code = 697) AST (SGOT) (BEAKER) 38 U/L 5-34 H (test code = 353) ALT (SGPT) (BEAKER) 23 U/L 6-55 (test code = 347) EGFR (BEAKER) (test 74 mL/min/1.73 ESTIMA CRISTO GFR IS code = 1092) sq m NOT ACCURATE CREATININE CLEARANCE IN PREDICTING GLOMERULAR FILTRATION RATE . ESTIMATED GFR I S NOT APPLICABLE FOR DIALYSIS PATIEN TS. [id number] 05:14:00 Test Item Value Reference Range Interpretation Comments PHOSPHORUS (BEAKER) (test code = 2.9 mg/dL 2.3-4.7 604) [id number] 05:14:00 Test Item Value Reference Range Interpretation Comments MAGNESIUM (BEAKER) (test code = 1.6 mg/dL 1.6-2.6 627) CBC W/PLT COUNT & AUTO [id number] 04:48:00 Test Item Value Reference Range Interpretation Comments WHITE BLOOD CELL COUNT (BEAKER) 7.4 K/ L 3.5-10.5 (test code = 775) RED BLOOD CELL COUNT (BEAKER) 3.37 M/ L 3.93-5.22 L (test code = 761) HEMOGLOBIN (BEAKER) (test code = 11.4 GM/DL 11.2-15.7 410) HEMATOCRIT (BEAKER) (test code = 34.6 % 34.1-44.9 411) MEAN CORPUSCULAR VOLUME (BEAKER) 102.7 fL 79.4-94.8 H (test code = 753) MEAN CORPUSCULAR HEMOGLOBIN 33.8 pg 25.6-32.2 H (BEAKER) (test code = 751) MEAN CORPUSCULAR HEMOGLOBIN CONC 32.9 GM/DL 32.2-35.5 (BEAKER) (test code = 752) RED CELL DISTRIBUTION WIDTH 12.7 % 11.7-14.4 (BEAKER) (test code = 412) PLATELET COUNT (BEAKER) (test 330 K/CU MM 150-450 code = 756) MEAN PLATELET VOLUME (BEAKER) 9.8 fL 9.4-12.3 (test code = 754) NUCLEATED RED BLOOD CELLS 0 /100 WBC 0-0 (BEAKER) (test code = 413) NEUTROPHILS RELATIVE PERCENT 73 % (BEAKER) (test code = 429) LYMPHOCYTES RELATIVE PERCENT 18 % (BEAKER) (test code = 430) MONOCYTES RELATIVE PERCENT 7 % (BEAKER) (test code = 431) EOSINOPHILS RELATIVE PERCENT 2 % (BEAKER) (test code = 432) BASOPHILS RELATIVE PERCENT 0 % (BEAKER) (test code = 437) NEUTROPHILS ABSOLUTE COUNT 5.43 K/ L 1.56-6.13 (BEAKER) (test code = 670) LYMPHOCYTES ABSOLUTE COUNT 1.33 K/ L 1.18-3.74 (BEAKER) (test code = 414) MONOCYTES ABSOLUTE COUNT (BEAKER) 0.48 K/ L 0.24-0.36 H (test code = 415) EOSINOPHILS ABSOLUTE COUNT 0.12 K/ L 0.04-0.36 (BEAKER) (test code = 416) BASOPHILS ABSOLUTE COUNT (BEAKER) 0.03 K/ L 0.01-0.08 (test code = 417) IMMATURE GRANULOCYTES-RELATIVE 1 % 0-1 PERCENT (BEAKER) (test code = 2801) POCT-GLUCOSE [id number] 22:42:00 Test Item Value Reference Range Interpretation Comments POC-GLUCOSE METER 184 mg/dL 70-110 H TESTED AT [place] [address] ([facility] (test code = [place] 1538) [id number] POCT-GLUCOSE [id number] 18:51:00 Test Item Value Reference Range Interpretation Comments POC-GLUCOSE METER 220 mg/dL 70-110 H TESTED AT [place] [address] (BEAKER) (test code = GAIL Mccollum [facility] 1538) [id number] 16:07:00 Test Item Value Reference Range Interpretation Comments MAGNESIUM (BEAKER) (test code = 1.8 mg/dL 1.6-2.6 627) [id number] 16:07:00 Test Item Value Reference Range Interpretation Comments POTASSIUM (BEAKER) (test code = 4.1 meq/L 3.5-5.1 379) POCT-GLUCOSE [id number] 15:47:00 Test Item Value Reference Range Interpretation Comments POC-GLUCOSE METER 215 mg/dL 70-110 H TESTED AT [place] [address] (BEAKER) (test code = GAIL Mccollum [facility] 1538) [id number] 10:16:00 Test Item Value Reference Range Interpretation Comments MAGNESIUM (BEAKER) (test code = 1.7 mg/dL 1.6-2.6 627) POCT-GLUCOSE [id number] 09:25:00 Test Item Value Reference Range Interpretation Comments POC-GLUCOSE METER 156 mg/dL 70-110 H TESTED AT [facility] 6720 (BEAKER) (test code = FREDOR Veda [facility] 1538) [id number] BASIC METABOLIC [id number] 06:32:00 Test Item Value Reference Range Interpretation Comments SODIUM (BEAKER) 136 meq/L 136-145 (test code = 381) POTASSIUM (BEAKER) 3.7 meq/L 3.5-5.1 (test code = 379) CHLORIDE (BEAKER) 97 meq/L 98-107 L (test code = 382) CO2 (BEAKER) (test 32 meq/L 22-29 H code = 355) BLOOD UREA NITROGEN 16 mg/dL 7-21 (BEAKER) (test code = 354) CREATININE (BEAKER) 0.82 mg/dL 0.57-1.25 (test code = 358) GLUCOSE RANDOM 114 mg/dL 70-105 H (BEAKER) (test code = 652) CALCIUM (BEAKER) 7.8 mg/dL 8.4-10.2 L (test code = 697) EGFR (BEAKER) (test 71 mL/min/1.73 ESTIMA CRISTO GFR IS code = 1092) sq m NOT ACCURATE CREATININE CLEARANCE IN PREDICTING GLOMERULAR FILTRATION RATE . ESTIMATED GFR I S NOT APPLICABLE FOR DIALYSIS PATIEN TS. CBC W/PLT COUNT & AUTO [id number] 05:42:00 Test Item Value Reference Range Interpretation Comments WHITE BLOOD CELL COUNT (BEAKER) 7.9 K/ L 3.5-10.5 (test code = 775) RED BLOOD CELL COUNT (BEAKER) 3.12 M/ L 3.93-5.22 L (test code = 761) HEMOGLOBIN (BEAKER) (test code = 10.8 GM/DL 11.2-15.7 L 410) HEMATOCRIT (BEAKER) (test code = 32.6 % 34.1-44.9 L 411) MEAN CORPUSCULAR VOLUME (BEAKER) 104.5 fL 79.4-94.8 H (test code = 753) MEAN CORPUSCULAR HEMOGLOBIN 34.6 pg 25.6-32.2 H (BEAKER) (test code = 751) MEAN CORPUSCULAR HEMOGLOBIN CONC 33.1 GM/DL 32.2-35.5 (BEAKER) (test code = 752) RED CELL DISTRIBUTION WIDTH 13.0 % 11.7-14.4 (BEAKER) (test code = 412) PLATELET COUNT (BEAKER) (test 324 K/CU MM 150-450 code = 756) MEAN PLATELET VOLUME (BEAKER) 9.7 fL 9.4-12.3 (test code = 754) NUCLEATED RED BLOOD CELLS 0 /100 WBC 0-0 (BEAKER) (test code = 413) NEUTROPHILS RELATIVE PERCENT 76 % (BEAKER) (test code = 429) LYMPHOCYTES RELATIVE PERCENT 16 % (BEAKER) (test code = 430) MONOCYTES RELATIVE PERCENT 6 % (BEAKER) (test code = 431) EOSINOPHILS RELATIVE PERCENT 1 % (BEAKER) (test code = 432) BASOPHILS RELATIVE PERCENT 1 % (BEAKER) (test code = 437) NEUTROPHILS ABSOLUTE COUNT 5.96 K/ L 1.56-6.13 (BEAKER) (test code = 670) LYMPHOCYTES ABSOLUTE COUNT 1.27 K/ L 1.18-3.74 (BEAKER) (test code = 414) MONOCYTES ABSOLUTE COUNT (BEAKER) 0.46 K/ L 0.24-0.36 H (test code = 415) EOSINOPHILS ABSOLUTE COUNT 0.10 K/ L 0.04-0.36 (BEAKER) (test code = 416) BASOPHILS ABSOLUTE COUNT (BEAKER) 0.04 K/ L 0.01-0.08 (test code = 417) IMMATURE GRANULOCYTES-RELATIVE 0 % 0-1 PERCENT (BEAKER) (test code = 2801) POCT-GLUCOSE [id number] 22:05:00 Test Item Value Reference Range Interpretation Comments POC-GLUCOSE METER 255 mg/dL 70-110 H TESTED AT [facility] 0620 (BEAKER) (test code = [place] 1538) [id number] MR, BRAIN, WITHOUT [id number] 19:23:00Reason for exam:->StrokeWhat is the patient's sedation [...] BRAIN:Internal carotid arteries: Normal flowrelated enhancement without flow- limiting stenosisMiddle cerebral arteries: Normal flow related enhancement within the bilateral MCA M1-M2 segments without flow limiting stenosis Anterior cerebral arteries: Normal flow-related enhancement within the bilateral ANGELICA A1- A2 segments without flow limiting stenosisBasilar system: Normal flow-related enhancement within the bilateral V4 segments and the basilar artery without flow-limiting stenosis Posterior cerebral arteries: Normal flow-related enhancement within the bilateral INSTRUMENT TESTER P1-P2 segments without flow-limiting stenosis. Bilateral functional type rnp.Additional findings: None. MRA NECK:Common carotid arteries: Unremarkable. [...] (which cannot be excluded by imaging). Signed: Celine Holly MDReport Verified Date/Time: 12/08/2018 19:23:05 Reading Location: [facility] C013V Neuro Reading Room MR, MRA, NECK, WITHOUT IV [id number] 19:23:00FINAL REPORT MR, BRAIN, WITHOUT CONTRAST, MR, [...] BRAIN:Internal carotid arteries: Normal flowrelated enhancement without flow- limiting stenosisMiddle cerebral arteries: Normal flow related enhancement within the bilateral MCA M1-M2 segments without flow limiting stenosis Anterior cerebral arteries: Normal flow-related enhancement within the bilateral ANGELICA A1- A2 segments without flow limiting stenosisBasilar system: Normal flow-related enhancement within the bilateral V4 segments and the basilar artery without flow-limiting stenosis Posterior cerebral arteries: Normal flow-related enhancement within the bilateral INSTRUMENT TESTER P1-P2 segments without flow-limiting stenosis. Bilateral functional type rnp.Additional findings: None. MRA NECK:Common carotid arteries: Unremarkable. [...] (which cannot be excluded by imaging). Signed: Celine Holly MDReport Verified Date/Time: 12/08/2018 19:23:05 Reading Location: [address] Neuro Reading Room MR, MRA, BRAIN, WITHOUT [id number] 19:23:00Reason for exam:->StrokeWhat is the patient's sedation [...] BRAIN:Internal carotid arteries: Normal flowrelated enhancement without flow- limiting stenosisMiddle cerebral arteries: Normal flow related enhancement within the bilateral MCA M1-M2 segments without flow limiting stenosis Anterior cerebral arteries: Normal flow-related enhancement within the bilateral ANGELICA A1- A2 segments without flow limiting stenosisBasilar system: Normal flow-related enhancement within the bilateral V4 segments and the basilar artery without flow-limiting stenosis Posterior cerebral arteries: Normal flow-related enhancement within the bilateral INSTRUMENT TESTER P1-P2 segments without flow-limiting stenosis. Bilateral functional type rnp.Additional findings: None. MRA NECK:Common carotid arteries: Unremarkable. [...] (which cannot be excluded by imaging). Signed: Celine Holly Verified Date/Time: 12/08/2018 19:23:05 Reading Location: [address] Neuro Reading Room -GLUCOSE [id number] 19:03:00 Test Item Value Reference Range Interpretation Comments POC-GLUCOSE METER 158 mg/dL 70-110 H TESTED AT [facility] 6720 (BEAKER) (test code = GAIL Mccollum [place] 1532) [address] [id number] 17:33:00 Test Item Value Reference Range Interpretation Comments POTASSIUM (BEAKER) (test code = 4.0 meq/L 3.5-5.1 379) [id number] 17:33:00 Test Item Value Reference Range Interpretation Comments MAGNESIUM (BEAKER) (test code = 2.4 mg/dL 1.6-2.6 627) [id number] 14:55:00 Test Item Value Reference Range Interpretation Comments RPR SCREEN (BEAKER) (test code = Nonreactive Nonreactive 420) [id number] 12:28:00 Test Item Value Reference Range Interpretation Comments POTASSIUM (BEAKER) (test code = 2.9 meq/L 3.5-5.1 L 379) TROPONIN [id number] 10:59:00 Test Item Value Reference Range Interpretation Comments TROPONIN I (BEAKER) (test code = 0.01 ng/mL 0.00-0.03 397) Troponin I (TnI) levels must be interpreted [...] failure, acidosis, acute neurological disease, and persistent tachyarrhythmia.[id number] 10:50:00 Test Item Value Reference Range Interpretation Comments MAGNESIUM (BEAKER) (test code = 1.8 mg/dL 1.6-2.6 627) HEMOGLOBIN [id number] 07:49:00 Test Item Value Reference Range Interpretation Comments HEMOGLOBIN A1C (BEAKER) (test code = 8.1 % 4.3-6.1 H 368) HIV-1 ANTIGEN WITH HIV-1/2 [id number] 06:03:00 Test Item Value Reference Range Interpretation Comments HIV-1 ANTIGEN WITH HIV 1\\T\\2 Nonreactive Nonreactive ANTIBODY (2) (BEAKER) (test code = 2586) [id number] 05:54:00 Test Item Value Reference Range Interpretation Comments POTASSIUM (BEAKER) (test code = 2.8 meq/L 3.5-5.1 L 379) VITAMIN B12 AND [id number] 03:31:00 Test Item Value Reference Range Interpretation Comments VITAMIN B12 (BEAKER) (test code = 1168 pg/mL 213-816 H 774) FOLATE (BEAKER) (test code = 362) > ng/mL >=7.0 TSH/FREE T4 IF [id number] 03:24:00 Test Item Value Reference Range Interpretation Comments THYROID STIMULATING HORMONE 2.19 uIU/mL 0.35-4.94 (BEAKER) (test code = 772) BASIC METABOLIC [id number] 02:06:00 Test Item Value Reference Range Interpretation Comments SODIUM (BEAKER) 132 meq/L 136-145 L (test code = 381) POTASSIUM (BEAKER) 3.0 meq/L 3.5-5.1 L Specimen slightly (test code = 379) hemolyzed CHLORIDE (BEAKER) 83 meq/L 98-107 L (test code = 382) CO2 (BEAKER) (test 37 meq/L 22-29 H code = 355) BLOOD UREA NITROGEN 27 mg/dL 7-21 H (BEAKER) (test code = 354) CREATININE (BEAKER) 1.33 mg/dL 0.57-1.25 H Specimen slightly (test code = 358) hemolyzed GLUCOSE RANDOM 216 mg/dL 70-105 H (BEAKER) (test code = 652) CALCIUM (BEAKER) 7.2 mg/dL 8.4-10.2 L (test code = 697) EGFR (BEAKER) (test mL/min/1.73 INSUFFIC IENT CLINICAL code = 1092) sq m DATA TO CALCULA TE ESTIMATED GFR. [id number] 02:04:00 Test Item Value Reference Range Interpretation Comments MAGNESIUM (BEAKER) 1.5 mg/dL 1.6-2.6 L Specimen slightly (test code = 627) hemolyzed FastingLIPID [id number] 02:04:00 Test Item Value Reference Range Interpretation Comments TRIGLYCERIDES (BEAKER) 135 mg/dL Speci men slightly (test code = 540) hemolyzed CHOLESTEROL (BEAKER) 151 mg/dL Specime n slightly (test code = 631) hemolyzed HDL CHOLESTEROL (BEAKER) 43 mg/dL (test code = 976) LDL CHOLESTEROL 81 mg/dL CALCULATED (BEAKER) (test code = 633) Triglyceride Reference Range: Low Risk <150 Borderline 150-199 High Risk 200-499 Very High Risk >=500Cholesterol Reference Range: Low Risk <200 Borderline 200-239 High Risk >240HDL Cholesterol Reference Range: Low Risk >=60 High Risk <40LDL Cholesterol Reference Range: Optimal <100 Near Optimal 100-129 Borderline 130-159 High 160-189 Very High >=190 FastingCBC W/PLT COUNT & AUTO [id number] 01:36:00 Test Item Value Reference Range Interpretation Comments WHITE BLOOD CELL COUNT (BEAKER) 6.9 K/ L 3.5-10.5 (test code = 775) RED BLOOD CELL COUNT (BEAKER) 3.21 M/ L 3.93-5.22 L (test code = 761) HEMOGLOBIN (BEAKER) (test code = 11.2 GM/DL 11.2-15.7 410) HEMATOCRIT (BEAKER) (test code = 32.4 % 34.1-44.9 L 411) MEAN CORPUSCULAR VOLUME (BEAKER) 100.9 fL 79.4-94.8 H (test code = 753) MEAN CORPUSCULAR HEMOGLOBIN 34.9 pg 25.6-32.2 H (BEAKER) (test code = 751) MEAN CORPUSCULAR HEMOGLOBIN CONC 34.6 GM/DL 32.2-35.5 (BEAKER) (test code = 752) RED CELL DISTRIBUTION WIDTH 12.9 % 11.7-14.4 (BEAKER) (test code = 412) PLATELET COUNT (BEAKER) (test 346 K/CU MM 150-450 code = 756) MEAN PLATELET VOLUME (BEAKER) 9.5 fL 9.4-12.3 (test code = 754) NUCLEATED RED BLOOD CELLS 0 /100 WBC 0-0 (BEAKER) (test code = 413) NEUTROPHILS RELATIVE PERCENT 82 % (BEAKER) (test code = 429) LYMPHOCYTES RELATIVE PERCENT 11 % (BEAKER) (test code = 430) MONOCYTES RELATIVE PERCENT 6 % (BEAKER) (test code = 431) EOSINOPHILS RELATIVE PERCENT 1 % (BEAKER) (test code = 432) BASOPHILS RELATIVE PERCENT 1 % (BEAKER) (test code = 437) NEUTROPHILS ABSOLUTE COUNT 5.58 K/ L 1.56-6.13 (BEAKER) (test code = 670) LYMPHOCYTES ABSOLUTE COUNT 0.74 K/ L 1.18-3.74 L (BEAKER) (test code = 414) MONOCYTES ABSOLUTE COUNT (BEAKER) 0.40 K/ L 0.24-0.36 H (test code = 415) EOSINOPHILS ABSOLUTE COUNT 0.06 K/ L 0.04-0.36 (BEAKER) (test code = 416) BASOPHILS ABSOLUTE COUNT (BEAKER) 0.04 K/ L 0.01-0.08 (test code = 417) IMMATURE GRANULOCYTES-RELATIVE 0 % 0-1 PERCENT (BEAKER) (test code = 2801) [id number] 23:06:00 Test Item Value Reference Range Interpretation Comments ETHANOL (BEAKER) (test code = 400) < mg/dL <=10 TROPONIN [id number] 22:58:00 Test Item Value Reference Range Interpretation Comments TROPONIN I (BEAKER) (test code = 0.01 ng/mL 0.00-0.03 397) Troponin I (TnI) levels must be interpreted [...] acute neurological disease, and persistent tachyarrhythmia.BASIC METABOLIC [id number] 22:56:00 Test Item Value Reference Range Interpretation Comments SODIUM (BEAKER) 132 meq/L 136-145 L (test code = 381) POTASSIUM (BEAKER) 2.2 meq/L 3.5-5.1 LL (test code = 379) CHLORIDE (BEAKER) 81 meq/L 98-107 L (test code = 382) CO2 (BEAKER) (test 36 meq/L 22-29 H code = 355) BLOOD UREA NITROGEN 27 mg/dL 7-21 H (BEAKER) (test code = 354) CREATININE (BEAKER) 1.43 mg/dL 0.57-1.25 H (test code = 358) GLUCOSE RANDOM 190 mg/dL 70-105 H (BEAKER) (test code = 652) CALCIUM (BEAKER) 7.6 mg/dL 8.4-10.2 L (test code = 697) EGFR (BEAKER) (test mL/min/1.73 INSUFFIC IENT CLINICAL code = 1092) sq m DATA TO CALCULA TE ESTIMATED GFR. URINALYSIS [id number] 22:41:00 Test Item Value Reference Range Interpretation Comments RBC UA (BEAKER) (test code = 519) 1 /HPF WBC UA (BEAKER) (test code = 520) < /HPF SQUAMOUS EPITHELIAL (BEAKER) (test 7 /HPF code = 516) HYALINE CASTS (BEAKER) (test code = 2 /LPF 514) URINALYSIS WITH MICROSCOPIC IF [id number] 22:36:00 Test Item Value Reference Range Interpretation Comments COLOR (BEAKER) (test code = 470) Yellow CLARITY (BEAKER) (test code = 469) Hazy SPECIFIC GRAVITY UA (BEAKER) (test 1.012 1.001-1.035 code = 468) PH UA (BEAKER) (test code = 467) 6.0 5.0-8.0 PROTEIN UA (BEAKER) (test code = 200 mg/dL Negative A 464) GLUCOSE UA (BEAKER) (test code = Negative Negative 365) KETONES UA (BEAKER) (test code = Trace Negative A 371) BILIRUBIN UA (BEAKER) (test code = Negative Negative 462) BLOOD UA (BEAKER) (test code = 461) Trace Negative A NITRITE UA (BEAKER) (test code = Negative Negative 465) LEUKOCYTE ESTERASE UA (BEAKER) Negative Negative (test code = 466) UROBILINOGEN UA (BEAKER) (test code 2.0 mg/dL 0.2-1.0 H = 463) SOURCE(BEAKER) (test code = 2795) BASIC METABOLIC [id number] 19:01:00 Test Item Value Reference Range Interpretation Comments SODIUM (BEAKER) 134 meq/L 136-145 L (test code = 381) POTASSIUM (BEAKER) 2.2 meq/L 3.5-5.1 LL (test code = 379) CHLORIDE (BEAKER) 82 meq/L 98-107 L (test code = 382) CO2 (BEAKER) (test 35 meq/L 22-29 H code = 355) BLOOD UREA NITROGEN 25 mg/dL 7-21 H (BEAKER) (test code = 354) CREATININE (BEAKER) 1.36 mg/dL 0.57-1.25 H (test code = 358) GLUCOSE RANDOM 214 mg/dL 70-105 H (BEAKER) (test code = 652) CALCIUM (BEAKER) 7.4 mg/dL 8.4-10.2 L (test code = 697) EGFR (BEAKER) (test mL/min/1.73 INSUFFIC IENT CLINICAL code = 1092) sq m DATA TO CALCULA TE ESTIMATED GFR. [id number] 19:01:00 Test Item Value Reference Range Interpretation Comments MAGNESIUM (BEAKER) (test code = 0.7 mg/dL 1.6-2.6 LL 627) [id number] 18:58:00 Test Item Value Reference Range Interpretation Comments PHOSPHORUS (BEAKER) (test code = 3.3 mg/dL 2.3-4.7 604) HEPATIC FUNCTION [id number] 18:58:00 Test Item Value Reference Range Interpretation Comments TOTAL PROTEIN (BEAKER) (test code = 6.0 gm/dL 6.0-8.3 770) ALBUMIN (BEAKER) (test code = 1145) 3.3 g/dL 3.5-5.0 L BILIRUBIN TOTAL (BEAKER) (test code 1.2 mg/dL 0.2-1.2 = 377) BILIRUBIN DIRECT (BEAKER) (test 0.6 mg/dL 0.1-0.5 H code = 706) ALKALINE PHOSPHATASE (BEAKER) (test 74 U/L 40-150 code = 346) AST (SGOT) (BEAKER) (test code = 103 U/L 5-34 H 353) ALT (SGPT) (BEAKER) (test code = 36 U/L 6-55 347) CHEM [id number] 08:47:73675Morskpvp HermannCHEM [id number] 10:18:70631 [facility] JwhbihzUYATWPZHXLQK3316-08-05 10:18:84894Vasyhgfw HermannELECTROLYTES 2014-10-31 10:18:003.5[facility] CcnmbpnKGBRYBUEGKFY9931-76-33 10:18:007.8[facility] YbyosjjZIVTGOFDURVR5719-16-48 10:18:0098[facility] EwufoimDWREPSJCNKYC3380-75-94 10:18:0072[facility] ZcnipzaTUDWZBNYSSGW5397-10-44 10:18:003.0[facility] QMDFKCPIBZCP8847-67-03 10:18:001.0[facility] YmihtgyMJUBHJBUOJGF6427-37-55 10:18:0045[facility] XorxatyZZYLCVDPGDYD8458-60-58 10:18:0057[facility] VTJLJIILLUMC3634-63-47 10:18:0049[facility] BdbbnkbGVONIMFIXGEQ6675-55-84 10:18:00 0.7[facility] PqsltezJXZMDOIIVGAS8072-97-83 10:18:34658Rvoghsqo [facility]ias RUMHICUPZQML3772-25-97 10:18:000.9[facility] IzirqdwXNQQMHMUSYLH7120-11-78 10:18:0012[facility] NohkfjvJGYCZSOUEDWB5104-34-17 10:18:0013[facility] OJQTUIZLCZKH8577-32-94 10:18:0030[facility] PmuxvnjERTVUMVBTQLC4012-67-99 10:18:00 6.1[facility] CoyurleGEAHKMCFZPXI7391-83-89 10:18:009.5[facility] USPBRJJLCHCW0009-74-65 10:18:003.1[facility] EkqzkieGCCTNYSJIV9349-85-75 10:18:00 0.2[facility] CfjuoraQBRACNCTGS4736-30-48 10:18:002+ *ABN*(10/31/14 5:18 AM) [facility] KwjycaiZDQWHAXVRU5593-90-20 10:18:000.5[facility] HermannHEMATOLOGY 2014-10-31 10:18:002.3[facility] KartxvjRREKYPJCQH3525-09-49 10:18:001.2[facility] PavlcvbRTPJMJQWQT0668-39-97 10:18:000.3[facility] ZnjspmuQWTXUHQLDC5478-62-60 10:18:006.1[facility] YxyhldjZWBSXMMDDZ7696-41-44 10:18:006.1[facility] OYTUHOQNXP4514-12-49 10:18:0015.1[facility] CmekstgMHPEEBJXNK6727-63-89 10:18:00 76.2[facility] YheflgeJVRFFRMVWF5815-93-83 10:18:0033.9[facility] HermannHEMATOLOGY 2014-10-31 10:18:64549.7[facility] ZqqxyhmTEXHVNKPZR0002-37-15 10:18:0035.5 [facility] LvowkcmGGGBMNHZNH4375-88-54 10:18:0012.0[facility] HermannHEMATOLOGY 2014-10-31 10:18:008.0[facility] OswyuinUNOGVFWRMW0059-74-50 10:18:003.39[facility] DgpodchZWRXZXNYHK9339-51-76 10:18:48565Lyzsjolk EzbojoxLOBCOQXKVX7209-23-28 10:18:009.5[facility] OtpkyabQRRXSDTPVG6399-65-94 10:18:0012.7[facility] CSATYYKWLA1797-42-79 10:18:00 Test Item Value Reference Range Interpretation Comments MCH (test code = MCH) 35.5 pg 27.0-31.0 [facility] EedmollUECCKF6188-17-62 10:18:0077[facility] QdaeawiGRIWWU5801-30-59 10:18:34126Drivpqef BpjafdbUMQQHM3024-69-96 10:18:0067[facility] HermannLIPIDS 2014-10-31 10:18:0082[facility] GijxtbpNQADAU8985-41-74 10:18:002.23[facility] TswlcmjVZWQEF1353-82-93 10:18:0013[facility] HermannCHEM KPMLF7676-40-06 12:48:00 1352[facility] HermannCHEM BASOD3373-42-72 12:48:0050[facility] HermannCHEM PANEL 2014-10-30 12:48:001.0[facility] HermannCHEM IDJPM1818-12-26 12:48:003.6[facility] HermannCHEM ZAUYM4137-33-82 12:48:0033[facility] HermannCHEM LJGZF9334-78-01 12:48:006.4[facility] HermannCHEM RJRXG4839-76-22 12:48:0084[facility] HermannCHEM UQXEW9413-82-63 12:48:0092[facility] HermannCHEM YYEWR0824-42-03 12:48:26120 [facility] HermannCHEM TNHAB8280-79-96 12:48:0030[facility] HermannCHEM PANEL 2014-10-30 12:48:0046[facility] HermannCHEM HEERQ7999-63-33 12:48:003.1[facility] HermannCHEM DLQHM8658-48-46 12:48:008.3[facility] HermannCHEM GQBIT3188-26-01 12:48:0096[facility] HermannCHEM SEIIH9549-75-06 12:48:10929Wfdmkjrk HermannCHEM TEVLY6179-26-20 12:48:001.3[facility] HermannCHEM ILVNU8245-39-81 12:48:002.8 [facility] HermannCHEM GKFXH9139-05-35 12:48:001.3[facility] HermannCHEM PANEL 2014-10-30 12:48:0023[facility] HermannCHEM FTFHX2998-20-73 12:48:0010.1[facility] YvuzndxUQQDOWMSOX1934-72-23 12:48:001+ *ABN*(10/30/14 7:48 AM)[facility] DCVRAADLCK6813-12-47 12:48:005.5[facility] WlkdhguYGVLGURVOA9040-50-26 12:48:000.7 [facility] DhgluazEUHKSKGTHM7887-99-07 12:48:001.4[facility] HermannHEMATOLOGY 2014-10-30 12:48:000.1[facility] JvoeztuEGPYZFLZZX4523-93-42 12:48:000.1[facility] HskucedHRNAKDWJJF9874-65-09 12:48:001.6[facility] YtcemfxIJWQATHIEK8322-65-08 12:48:000.5[facility] KtstzvgTGHTLKXBDK5371-16-62 12:48:006.7[facility] CHALRMSUHK0233-16-84 12:48:0020.3[facility] OrthztcUWGRPWMQGZ0189-43-22 12:48:00 70.9[facility] LwmybspKJDOFHXCKT1885-68-06 12:48:0012.9[facility] HermannHEMATOLOGY 2014-10-30 12:48:0012.8[facility] NecjqruGDTTDLZCBT4815-34-75 12:48:003.56[facility] QefgsohVDUUFCPTSX4262-19-60 12:48:008.3[facility] MnatufeVPVJYJXLUA2354-70-33 12:48:89592Tapftykr GcsciksYVGWGPUHHO0652-12-92 12:48:94714.3[facility] QLXEPPXRAS1035-51-16 12:48:0036.8[facility] NfhfjyzMFLGACSNCF1137-02-85 12:48:00 34.9[facility] FypalpsNFOKUWIZOR5107-48-69 12:48:00 Test Item Value Reference Range Interpretation Comments MCH (test code = MCH) 36.1 pg 27.0-31.0 [facility] CjibfzcLVKZAKQZRP7265-36-90 12:48:007.8[facility]
[2020-05-07] MEDS ORDERED: D50W 25 GM/50 ML SYRINGE/VIAL IV ONE (14:49)
[2020-05-07] MEDS ORDERED: NA CHLORIDE 0.9% 500 ML ONE (14:49)
[2020-05-07 15:01] LABS: Absolute Lymphocytes (CBC) 1.9 K/uL (0.7-4.9); Basophils % 0.5 % (0-1.3); Hematocrit 43.6 % (36.0-45.0); Lymphocytes % 28.3 % (15.3-44.8)
--- NOTE | 2020-05-07 15:15 | RAD REPORT ---
EXAM DESCRIPTION: CT - Head Brain Wo Cont - 05/07/2020 3:01 pm CLINICAL HISTORY: WEAKNESS COMPARISON: Head Brain Wo Cont dated 04/13/2019; Ct Stroke Brain Wo Cont dated 12/07/2018 TECHNIQUE: All CT scans are performed using dose optimization technique as appropriate and may inclu de automated exposure control or mA/KV adjustment according to patient size. FINDINGS: No intracranial hemorrhage, hydrocephalus or extra-axial fluid collection.Mild generalized brain atrophy is present with mild periventricular and deep white matter chronic microvascular ische viky changes.No areas of brain edema or evidence of midline shift. The paranasal sinuses and mastoids are clear. The calvarium is intact. IMPRESSION: No acute intracranial abnormality.
[2020-05-07 15:16] LABS: Potassium 3.3 mmol/L (3.5-5.1)
[2020-05-07 15:27] LABS: Urine Bacteria <20 /HPF (<20); Urine Culture Reflex Order NOT NEEDED; Urine RBC <5 /HPF (NONE SEEN)
[2020-05-07 15:35] LABS: Urine Blood TRACE (NEG); Urine Glucose NEGATIVE (NEG); Urine Protein TRACE (NEG)
--- NOTE | 2020-05-07 17:30 | ER ---
Nurse's Notes [facility] Name: Billie Botello Age: 59 yrs Sex: Female : 1960 Arrival Date: 05/07/2020 Time: 14:31 Bed 8 Private MD: Diagnosis: Hypoglycemia, unspecified;Dehydration Presentation: 05/07 14:32 Chief complaint: Patient states: Pt called EMS because she has not been able to get out ss of bed all day. Upon arrival, EMS discovered that patient's BGL was 35. 2 tubes of oral glucose administered en route to ED. Coronavirus screen: Client denies travel out of the [place] in the last 14 days. Ebola Screen: Patient denies exposure to infectious person. Patient denies travel to an Ebola-affected area in the 21 days before illness onset. Initial Sepsis Screen: Does the patient meet any 2 criteria? No. Patient's initial sepsis screen is negative. Does the patient have a suspected source of infection? No. Patient's initial sepsis screen is negative. Risk Assessment: Do you want to hurt yourself or someone else? Patient reports no desire to harm self or others. Onset of symptoms was May 07, 2020. 14:32 Method Of Arrival: EMS: [facility] ss 14:32 Acuity: NIKA 2 ss Historical: - Allergies: 14:34 Bactrim; ss 14:34 Sulfa (Sulfonamide Antibiotics); ss 14:34 Trazodone; ss 14:34 TRIMETHOPRIM; ss - PMHx: 14:34 Diabetes - NIDDM; High Cholesterol; Hypertension; Pancreatitis; ss - Immunization history:: Adult Immunizations up to date. - Social history:: Smoking status: Patient reports the use of cigarette tobacco products, smokes one-half pack cigarettes per day, Patient uses alcohol. - Family history:: not pertinent. - Hospitalizations: : No recent hospitalization is reported. Screenin:33 Abuse screen: Denies threats or abuse. Nutritional screening: No deficits noted. tw2 Tuberculosis screening: No symptoms or risk factors identified. Fall Risk Secondary diagnosis (15 points). Assessment: 14:32 General: Appears uncomfortable, Behavior is calm, cooperative. Pain: Denies pain. aa5 Neuro: Level of Consciousness is awake, alert, obeys commands, Oriented to person, place, time, situation, Hand Picker are weak bilaterally Moves all extremities. Weakness in bilateral hand(s) arm(s) leg(s) foot/feet Speech slow and slurred . 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 . Reports Generalized weakness since this morning. . Denies numbness. Cardiovascular: Heart tones S1 S2 present Rhythm is regular. Respiratory: Airway is patent Respiratory effort is even, unlabored, Respiratory pattern is regular, symmetrical. GI: Abdomen is round Patient currently denies nausea, vomiting, Pt reports she has not eaten today, denies taking insulin today. : No signs and/or symptoms were reported regarding the genitourinary system. EENT: No signs and/or symptoms were reported regarding the EENT system. Derm: Skin is pink, warm \T\ dry. Musculoskeletal: Range of motion: intact in all extremities. 15:23 Reassessment: Patient is alert, oriented x 3, equal unlabored respirations, skin aa5 warm/dry/pink. Patient states feeling better. Patient states symptoms have improved. Pt sitting up in bed eating, pt tolerating well. . 15:23 Neuro: Level of Consciousness is awake, alert, obeys commands, Oriented to person, aa5 place, time, situation, Hand Picker are equal bilaterally Moves all extremities. Speech is normal, Facial droop on left. 16:30 Reassessment: Patient is alert, oriented x 3, equal unlabored respirations, skin aa5 warm/dry/pink. Patient states feeling better. Patient states symptoms have improved. Awaiting disposition. . Neuro: Level of Consciousness is awake, alert, obeys commands, Oriented to person, place, time, situation, Hand Picker are equal bilaterally Moves all extremities. Speech is normal, Facial droop on left. 17:27 Reassessment: pt c/o nauseousness, medicated as ordered, pt states she needs to have a tw2 BM and would like to go to the restroom, pt unsteady on feet, returned to bed, w/c provided for restroom. 17:33 Reassessment: pt returned to exam room at this time, via w/c. tw2 17:43 Reassessment: hospitalist at bedside at this time. tw2 17:45 Reassessment: Patient appears in no apparent distress at this time. Patient and/or tw2 family updated on plan of care and expected duration. Pain level reassessed. Patient is alert, oriented x 3, equal unlabored respirations, skin warm/dry/pink. 18:20 Reassessment: Patient is alert, oriented x 3, equal unlabored respirations, skin aa5 warm/dry/pink. 19:16 General: Appears in no apparent distress. comfortable, Behavior is calm, cooperative, rr5 appropriate for age. Pain: Denies pain. Neuro: Level of Consciousness is awake, alert, obeys commands, Oriented to person, place, time, Facial droop on left. Cardiovascular: Capillary refill < 3 seconds Patient's skin is warm and dry. Respiratory: Airway is patent Respiratory effort is even, unlabored, Respiratory pattern is regular, symmetrical. GI: Reports nausea. Derm: Skin is intact, is healthy with good turgor, Skin temperature is warm. Musculoskeletal: Capillary refill < 3 seconds. Vital Signs: 14:32 BP 132 / 86; Pulse 80; Resp 18; Pulse Ox 100% on R/A; Weight 89.81 kg; ss 15:32 BP 135 / 97; Pulse 89; Resp 16; Temp 97.9(O); Pulse Ox 98% on R/A; tw2 16:37 BP 117 / 75; Pulse 89; Resp 16; Pulse Ox 95% on R/A; tw2 17:44 BP 136 / 65; Pulse 93; Resp 18; Pulse Ox 96% on R/A; aa5 18:29 BP 103 / 73; Pulse 85; Resp 19; Pulse Ox 95% on R/A; tw2 19:17 BP 96 / 84; Pulse 84; Resp 16; Pulse Ox 99% ; rr5 20:42 BP 110 / 66; Pulse 80; Resp 17; Pulse Ox 99% ; rr5 ED Course: 14:31 Patient arrived in ED. tw2 14:31 Hola Rodriguez MD is Attending Physician. tw2 14:33 Triage completed. ss 14:34 Arm band placed on right wrist. ss 14:37 Missed attempt(s): 20 gauge in right wrist. Bleeding controlled, band aid applied, aa5 catheter tip intact. 14:40 Initial lab(s) drawn, by vt, sent to lab. Inserted saline lock: 22 gauge in left aa5 forearm, using aseptic technique. 14:45 Cynthia Pope, RN is Primary Nurse. aa5 15:01 CT Head Brain wo Cont In Process Unspecified. EDMS 15:16 EKG done, by ED staff, reviewed by Hola Rodriguez MD. mh5 15:17 Patient has correct armband on for positive identification. Placed in gown. Bed in low mh5 position. Call light in reach. Side rails up X2. Warm blanket given. traffic monitor specialist on. Pulse ox on. NIBP on. 17:29 Gerardo Fernandes is Hospitalizing Provider. rn 18:55 Report given to TEE Miller and TEE Bailon. aa5 20:39 No provider procedures requiring assistance completed. Patient admitted, IV remains in rr5 place. intact, No redness/swelling at site. Administered Medications: 14:43 Drug: D50W 50 ml Route: IVP; Site: left forearm; ss 15:40 Follow up: Response: No adverse reaction; Blood sugar is elevated ss 14:43 Drug: NS 0.9% 500 ml Route: IV; Rate: bolus; Site: left forearm; ss 17:27 Drug: Zofran (Ondansetron) 4 mg Route: IVP; Site: left forearm; tw2 17:28 CANCELLED (Duplicate Order): Zofran (Ondansetron) 4 mg IVP once; over 2 minutes tw2 19:39 Drug: Zofran (Ondansetron) 4 mg Route: IVP; Site: left forearm; rr5 20:42 Follow up: Response: No adverse reaction rr5 Point of Care Testing: Blood Glucose: 15:23 Blood Glucose: 170 mg/dL; aa5 17:00 Blood Glucose: 230 mg/dL; aa5 Ranges: Outcome: 17:29 Decision to Hospitalize by Provider. rn 20:39 Admitted to Med/surg accompanied by tech, via stretcher, room 213, with chart, Report rr5 called to [place] 20:39 Condition: stable 20:39 Instructed on the need for admit. 20:45 Patient left the ED. sg Addendum: 05/12/2020 17:47 Addendum: COVID-19 Result: Negative result given to RN to notify pt. Attempted to i w contact pt regarding negative COVID-19 swab results. Signatures: Dispatcher [facility] EDPancho Morales RN RN sg Williams, Irene, RN RN iw Nieto, Roman, MD MD rn Pope, Cynthia, RN RN aa5 Betty Means RN RN ss Wise, Tara, RN RN 2 Rohini Wen [facility] Uvaldo Vidal RN RN rr5 Corrections: (The following items were deleted from the chart) 05/07 17:07 15:23 Reassessment: Patient is alert, oriented x 3, equal unlabored respirations, skin aa5 warm/dry/pink. Patient states feeling better. Patient states symptoms have improved. Pt sitting up in bed eating, pt tolerating well. . aa5 17:28 15:32 BP 135 / 97; Pulse 89bpm; Resp 16bpm; Pulse Ox 98% RA; tw2 tw2 18:18 17:44 BP 136 / 5; Pulse 93bpm; Resp 18bpm; Pulse Ox 96% RA; tw2 aa5
--- NOTE | 2020-05-07 17:31 | EDPHYS ---
Physician Documentation [facility] Name: Billie Botello Age: 59 yrs Sex: Female : 1960 Arrival Date: 05/07/2020 Time: 14:31 Bed 8 Private MD: ED Physician Hola Rodriguez HPI: 05/07 14:36 This 59 yrs old Female presents to ER via EMS with complaints of Low Blood rn Sugar. 14:36 The patient or guardian reports hypoglycemia. Onset: The symptoms/episode rn began/occurred today. Current symptoms: In the emergency department the patient's symptoms have improved. It is unknown whether or not the patient has had similar symptoms in the past. Reports woke up a few hours ago, very difficult to move entire body, denies focal weakness or numbness, eventually able to get to call someone, brought in by EMS, improved with oral glucose but not back to normal. Reports has not had anything to eat today. Denies recent illness/cough/sob/fever. Reports chronic vomiting. No blood in stool. . Historical: - Allergies: 14:34 Bactrim; ss 14:34 Sulfa (Sulfonamide Antibiotics); ss 14:34 Trazodone; ss 14:34 TRIMETHOPRIM; ss - PMHx: 14:34 Diabetes - NIDDM; High Cholesterol; Hypertension; Pancreatitis; ss - Immunization history:: Adult Immunizations up to date. - Social history:: Smoking status: Patient reports the use of cigarette tobacco products, smokes one-half pack cigarettes per day, Patient uses alcohol. - Family history:: not pertinent. - Hospitalizations: : No recent hospitalization is reported. ROS: 14:36 Constitutional: Negative for fever, chills, and weight loss, Eyes: Negative for injury, rn pain, redness, and discharge, Cardiovascular: Negative for chest pain, palpitations, and edema, Respiratory: Negative for shortness of breath, cough, wheezing, and pleuritic chest pain, Abdomen/GI: Negative for abdominal pain, diarrhea, and constipation, MS/Extremity: Negative for injury and deformity, Skin: Negative for injury, rash, and discoloration, Neuro: Negative for headache, numbness, tingling, and seizure. Exam: 14:36 Constitutional: This is a well developed, well nourished patient who is awake, alert, rn and in no acute distress. Head/Face: Normocephalic, atraumatic. ENT: dry MM Neck: No Meningismus. Cardiovascular: Regular rate and rhythm. No pulse deficits. Respiratory: No increased work of breathing, no retractions or nasal flaring. Abdomen/GI: soft, non-tender Skin: Warm, dry MS/ Extremity: Pulses equal, no cyanosis. Neurovascular intact. Full, normal range of motion. Equal circumference. Neuro: Awake and alert, GCS 15, oriented to person, place, time, and situation. Cranial nerves II-XII grossly intact. Motor strength 4/5 in all extremities. Sensory grossly intact. Cerebellar exam normal. Vital Signs: 14:32 BP 132 / 86; Pulse 80; Resp 18; Pulse Ox 100% on R/A; Weight 89.81 kg; ss 15:32 BP 135 / 97; Pulse 89; Resp 16; Temp 97.9(O); Pulse Ox 98% on R/A; tw2 16:37 BP 117 / 75; Pulse 89; Resp 16; Pulse Ox 95% on R/A; tw2 17:44 BP 136 / 65; Pulse 93; Resp 18; Pulse Ox 96% on R/A; aa5 18:29 BP 103 / 73; Pulse 85; Resp 19; Pulse Ox 95% on R/A; tw2 19:17 BP 96 / 84; Pulse 84; Resp 16; Pulse Ox 99% ; rr5 20:42 BP 110 / 66; Pulse 80; Resp 17; Pulse Ox 99% ; rr5 MDM: 14:33 Patient medically screened. rn 15:58 ED course: Much more alert after glucose administration and eating. Strength back to rn baseline, no acute complaints. . 17:27 Differential diagnosis: hypoglycemic episode. Data reviewed: vital signs, nurses notes, varnish filterer test result(s). 17:27 ED course: Pt improved, very anxious about going home, has no one to stay with her, is rn concerned she will overnight, getting nauseated, will observe in hospital overnight to Dr. Fernandes. . 05/07 14:34 Order name: CBC with Diff; Complete Time: 15:19 rn 05/07 14:34 Order name: Basic Metabolic Panel; Complete Time: 15:19 rn 05/07 14:34 Order name: Urine Microscopic Only; Complete Time: 15:57 rn 05/07 14:54 Order name: Glucose, Ancillary Testing; Complete Time: 15:19 EDMS 05/07 15:04 Order name: Urine Dipstick--Ancillary (enter results); Complete Time: 15:57 bd 05/07 15:35 Order name: Glucose, Ancillary Testing; Complete Time: 15:57 EDMS 05/07 14:34 Order name: CT Head Brain wo Cont; Complete Time: 15:19 rn 05/07 17:00 Order name: Glucose, Ancillary Testing; Complete Time: 17:04 EDMS 05/07 17:27 Order name: Lipase rn 05/07 19:10 Order name: Glucose, Ancillary Testing EDMS 05/07 19:27 Order name: COVID-19 rr5 05/07 14:34 Order name: IV Start; Complete Time: 14:34 rn 05/07 14:34 Order name: Urine Dipstick-Ancillary (obtain specimen); Complete Time: 14:57 rn 05/07 14:34 Order name: EKG - Nurse/Tech; Complete Time: 14:40 rn 05/07 14:34 Order name: EKG; Complete Time: 14:34 rn 05/07 14:34 Order name: Glucose Level; Complete Time: 14:34 rn 05/07 14:40 Order name: Diet Regular; Complete Time: 14:40 ss Administered Medications: 14:43 Drug: D50W 50 ml Route: IVP; Site: left forearm; ss 15:40 Follow up: Response: No adverse reaction; Blood sugar is elevated ss 14:43 Drug: NS 0.9% 500 ml Route: IV; Rate: bolus; Site: left forearm; ss 17:27 Drug: Zofran (Ondansetron) 4 mg Route: IVP; Site: left forearm; tw2 17:28 CANCELLED (Duplicate Order): Zofran (Ondansetron) 4 mg IVP once; over 2 minutes tw2 19:39 Drug: Zofran (Ondansetron) 4 mg Route: IVP; Site: left forearm; rr5 20:42 Follow up: Response: No adverse reaction rr5 Point of Care Testing: Blood Glucose: 15:23 Blood Glucose: 170 mg/dL; aa5 17:00 Blood Glucose: 230 mg/dL; aa5 Ranges: Critical Glucose Levels:Adult <50 mg/dl or >400 mg/dl <40 mg/dl or >180 mg/dl Disposition: 05/07/20 17:29 Hospitalization ordered by Gerardo Fernandes for Observation. Preliminary diagnosis are Hypoglycemia, unspecified, Dehydration. - Bed requested for Telemetry/MedSurg (observation). - Status is Observation. sg - Condition is Stable. - Problem is new. - Symptoms have improved. Signatures: Dispatcher [employer] EDMS Pancho Katz RN RN sg Hola Rodriguez MD MD rn Smirch, Shelby, RN RN Xiomara Aponte RN RN tl1 Marilu Bella RN RN tw2 Uvaldo Vidal RN RN rr5 Corrections: (The following items were deleted from the chart) 17:28 17:28 Zofran (Ondansetron) 4 mg IVP once; over 2 minutes ordered. tw2 tw2 19:35 17:29 Hospitalization Ordered by Gerardo Fernandes for Observation. Preliminary diagnosis tl1 is Hypoglycemia, unspecified; Dehydration. Bed requested for Telemetry/MedSurg (observation). Status is Observation. Condition is Stable. Problem is new. Symptoms have improved. rn 20:45 19:35 05/07/2020 17:29 Hospitalization Ordered by Gerardo Fernandes for Observation. sg Preliminary diagnosis is Hypoglycemia, unspecified; Dehydration. Bed requested for Telemetry/MedSurg (observation). Status is Observation. Condition is Stable. Problem is new. Symptoms have improved. tl1
[2020-05-07] MEDS ORDERED: ONDANSETRON 4 MG/2 ML VIAL ONE ×2 (17:35→19:41)
--- NOTE | 2020-05-07 18:09 | P.HP ---
Certification for Inpatient Patient admitted to: Observation With expected LOS: <2 Midnights Practitioner: I am a practitioner with admitting privileges, knowledge of patient current condition, hospital course, and medical plan of care. Services: Services provided to patient in accordance with Admission requirements found in Title 42 Section 412.3 of the Code of Federal Regulations Patient History Date of Service: 05/07/20 Reason for admission: Hypoglycemia History of Present Illness: 59-year-old woman with a history of diabetes mellitus type 2, hypothyroidism was brought to the emergency department because of hypoglycemia. Patient stated she was not able to get out of bed or move her body for about 4 hours. Symptoms started this morning. She struggled he eventually to a phone and called EMS. EMS found her with a blood sugar of 35. Patient was given oral glucose enroute to the ED. Her blood sugar in the ED was 41. Patient was given 50 ml of D50. Her blood sugar is currently 230. Patient denies any loss of consciousness. Her symptoms has currently resolved. She has been using Levemir insulin 45 units twice a day. Patient states she eats only once a day at lunch. She stated this is her 1st hypoglycemia episode since she was switched from glimepiride to insulin. She is placed under observation for further monitoring. Allergies sulfamethoxazole [From Bactrim] Allergy (Intermediate, Verified 05/09/12 16:51) Rash trimethoprim [From Bactrim] Allergy (Intermediate, Verified 05/09/12 16:51) Rash Sulfa (Sulfonamide Antibiotics) Allergy (Verified 05/27/17 01:47) Unknown trazodone Allergy (Verified 02/19/19 21:07) Itching Home Medications: Levothyroxine Sodium [Unithroid] 25 mcg PO DAILY #30 tablet 11/24/15 carvediloL [Coreg*] 12.5 mg PO BID #60 tab 11/24/15 Cholecalciferol (Vitamin D3) [Vitamin D 1000 Iu Tab*] 1 tab PO DAILY 05/27/17 Amlodipine [Norvasc*] 5 mg PO BID #60 tab 01/01/18 Aspirin [Aspirin EC 81 MG] 81 mg PO DAILY #90 tablet. 01/01/18 Cyanocobalamin (Vitamin B-12) [Vitamin B-12] 1,000 mcg PO DAILY #30 tablet 01/01/18 Glimepiride 1 mg PO DAILY #30 tablet 01/01/18 Nicotine [Nicoderm*] 21 mg TD DAILY #30 patch.td24 01/01/18 Pantoprazole [Protonix Tab*] 40 mg PO DAILY #30 tab 01/01/18 Atorvastatin Calcium [Lipitor] 40 mg PO BEDTIME #30 tab 02/20/19 Nicotine [Nicoderm*] 21 mg TD DAILY #30 patch.td24 02/20/19 Nitroglycerin 0.4 mg SL SEECOM #30 tab.subl 02/20/19 - Past Medical/Surgical History Diabetic: Yes -: HTN -: Hyperlipidemia -: Hypothyroidism -: GERD -: Tobacco abuse -: Diabetes mellitus type 2 in non insulin-dependent -: renal insufficiency -: hypercholesterolemia -: -: R wrist Sx (metal plate) -: rectal polyps removed Psychosocial/ Personal History: The patient is single. She has 1 child. She works at [employer] - Family History Sister -: Lung disease, Diabetes Mother -: Heart disease, Cancer Notes: lymphoma Father -: Heart disease - Social History Alcohol use: Yes CD- Drugs: No Caffeine use: Yes Review of Systems Other: Except as documented, all other systems reviewed and negative. Physical Examination - Physical Exam General: Alert, In no apparent distress HEENT: Normocephalic, PERRLA, Mucous membr. moist/pink, EOMI Neck: Supple, JVD not distended Respiratory: Clear to auscultation bilaterally, Normal air movement Cardiovascular: No edema, Regular rate/rhythm, Normal S1 S2 Gastrointestinal: Normal bowel sounds, Soft and benign, No tenderness Musculoskeletal: No swelling, No erythema Integumentary: No rashes, No tenderness/swelling Neurological: Normal speech, Normal strength at 5/5 x4 extr, Cranial nerves 3-12 intact - Studies Laboratory Data (last 24 hrs) 05/07/20 14:30: Lipase 120 05/07/20 14:30: Sodium 137, Potassium 3.3 L, BUN 31 H, Creatinine 1.57 H, Glucose 50 L 05/07/20 14:30: WBC 6.7, Hgb 15.0, Hct 43.6, Plt Count 328 Assessment and Plan - Problems (Diagnosis) (1) Hypoglycemia Current Visit: Yes Status: Acute (2) Diabetes mellitus Onset Date: 06/29/18 Current Visit: No Status: Chronic Qualifiers: Diabetes mellitus type: type 2 Diabetes mellitus longterm insulin use: w ithout longterm use Diabetes mellitus complication status: with other specified complication Qualified Code(s): E11.69 - Type 2 diabetes mellitus with other specified complication (3) Hypertension Onset Date: 11/24/15 Current Visit: No Status: Chronic Qualifiers: Hypertension type: essential hypertension Qualified Code(s): I10 - Essential (primary) hypertension (4) Acute renal failure Current Visit: Yes Status: Acute - Plan Place under observation. Patient will be treated with D5 normal saline for the next 12 hrs. Start insulin sliding scale. Hold long-acting insulin. Check TSH in am. Continue home dose Synthroid for now. Monitor renal function for improvement. - Advance Directives Does patient have a Living Will: No Does patient have a Durable POA for Healthcare: Yes
[2020-05-07 21:02] VITALS: BMI 35.0
[2020-05-07] MEDS: INSULIN -REGULAR HUMAN 50 UNIT/0.5 ML ML SQ SCH (21:45)
[2020-05-07] MEDS: D5 0.9 NS 1,000 ML IV SCH (21:45)
[2020-05-08] MEDS ORDERED: MELATONIN 5 MG TABLET PO ONE (00:35)
[2020-05-08] MEDS: HEPARIN 5000 UNIT/ML 1 ML VIAL SQ SCH ×3 (01:40→16:26)
[2020-05-08 04:05] LABS: Absolute Lymphocytes (CBC) 1.7 K/uL (0.7-4.9); Basophils % 0.4 % (0-1.3); Hematocrit 36.7 % (36.0-45.0); Lymphocytes % 24.1 % (15.3-44.8); MPV 8.4 fL (7.6-11.3); RBC Red Blood Cell Count 3.86 M/uL (3.86-4.86)
[2020-05-08 04:50] LABS: Potassium 3.1 mmol/L (3.5-5.1); Thyroid Stimulating Hormone 1.11 uIU/mL (0.360-3.740)
[2020-05-08 04:51] LABS: Magnesium 1.1 mg/dL (1.8-2.4)
[2020-05-08] MEDS ORDERED: POTASSIUM 25 MEQ EFFERV TAB PO ONE (06:00)
[2020-05-08] MEDS ORDERED: Magnesium Sulfate 2gm IVPB 2 G/50 ML BAG IV ONE (06:00)
[2020-05-08] MEDS: D5 0.9 NS 1,000 ML IV SCH (07:00)
--- NOTE | 2020-05-08 07:34 | EKG ---
Test Date: 2020-05-07 Test Time: 14:44:53 Hide Worker: ILIANA MEASUREMENT RESULTS: Intervals: Rate: 85 IL: 180 QRSD: 72 QT: 394 QTc: 468 [place]: P: 87 IL: 180 QRS: 10 T: 16 INTERPRETIVE STATEMENTS: Normal sinus rhythm ST elevation, consider lateral injury or acute infarct ACUTE NH Abnormal ECG Compared to ECG 04/13/2019 14:48:23 ST (T wave) deviation now present Myocardial infarct finding still present Electronically Signed On 05-08-20 07:32:27 [employer] LENS TECHNICIAN by Doug Gold
[2020-05-08] MEDS ORDERED: INFLUENZA VACCINE (for 3y+) 0.5 ML DOSE IMVAC ONE (08:00)
[2020-05-08] MEDS: INSULIN -REGULAR HUMAN 50 UNIT/0.5 ML ML SQ SCH ×4 (08:22→21:00)
[2020-05-08] MEDS: ASPIRIN EC 81 MG TAB PO SCH (08:23)
[2020-05-08] MEDS: PANTOPRAZOLE 40MG TABLET PO SCH (08:23)
--- NOTE | 2020-05-08 10:26 | P.PN ---
Subjective Date of Service: 05/08/20 Chief Complaint: Hypoglycemia Subjective: Improving (Patient taken off D5 infusion this morning. Otherwise, mental status is at baseline. She states that she used to be on levemir 90 units QAM and this regimen was modified to 45 units BID.) Physical Examination - Vital Signs Temperature: 98 F Blood Pressure: 125/69 Pulse: 77 Respirations: 18 Pulse Ox (%): 93 - Physical Exam General: In no apparent distress, Cooperative, Obese HEENT: Atraumatic, Normocephalic, EOMI Neck: Supple Respiratory: Clear to auscultation bilaterally, Normal air movement Cardiovascular: No edema, Normal pulses, Regular rate/rhythm, Normal S1 S2 Gastrointestinal: Normal bowel sounds, Soft and benign, Non-distended, No tenderness Musculoskeletal: No clubbing, No swelling, No contractures, No erythema, No tenderness, No warmth Neurological: Normal speech, Sensation intact, Normal affect - Studies Laboratory Data (last 24 hrs) 05/08/20 03:30: Sodium 140, Potassium 3.1 L, BUN 25 H, Creatinine 0.97, Glucose 121 H, Phosphorus 3.0, Magnesium 1.1 L* 05/08/20 03:30: WBC 6.9, Hgb 12.5 D, Hct 36.7 D, Plt Count 260 D 05/07/20 14:30: Lipase 120 05/07/20 14:30: Sodium 137, Potassium 3.3 L, BUN 31 H, Creatinine 1.57 H, Glucose 50 L 05/07/20 14:30: WBC 6.7, Hgb 15.0, Hct 43.6, Plt Count 328 Assessment & Plan Physician Review Additional Text: Assessment Patient is a 59 year old female with insulin dependent diabetes mellitus who was admitted to the hospital with symptomatic hypoglycemia. Her home regimen consists consistent of levemir 45 units BID and glimeperide. During this admission, she has been placed on dextrose infusion. Her mental status and well being is back to baseline Hypoglycemia Type II Diabetes mellitus Obesity PLAN Discontinue D5 water Continue monitoring FBG every 4 hours Encourage PO intake If hypoglycemic, I will obtain a CT abdomen and pelvis Otherwise, I will discharge her home without insulin or OHA She will need to follow up with her PCP for medication reconciliation
[2020-05-08 12:39] LABS: Magnesium 1.7 mg/dL (1.8-2.4); Potassium 3.8 mmol/L (3.5-5.1)
[2020-05-08] MEDS ORDERED: POTASSIUM CL SA 10 MEQ TAB PO ONE (13:00)
[2020-05-08] MEDS ORDERED: MAGNESIUM SULFATE 1 gm IVPB 1 GM/100 ML BAG IV ONE (13:00)
[2020-05-08] MEDS ORDERED: ATORVASTATIN 40 MG TAB PO SCH (21:00)
[2020-05-08 22:31] VITALS: O2SAT 95
[2020-05-08] MEDS ORDERED: ZOLPIDEM TARTRATE 5 MG TABLET PO ONE (22:34)
[2020-05-09] MEDS: HEPARIN 5000 UNIT/ML 1 ML VIAL SQ SCH ×2 (01:05→09:00)
[2020-05-09 05:54] LABS: BUN Blood Urea Nitrogen 9 mg/dL (7-18); Bicarbonate 29 mmol/L (21-32); Glucose Level 123 mg/dL (74-106); Magnesium 1.5 mg/dL (1.8-2.4); Potassium 3.7 mmol/L (3.5-5.1); Sodium Level 140 mmol/L (136-145)
[2020-05-09] MEDS ORDERED: Magnesium Sulfate 2gm IVPB 2 G/50 ML BAG IV ONE (06:36)
[2020-05-09] MEDS: INSULIN -REGULAR HUMAN 50 UNIT/0.5 ML ML SQ SCH (07:30)
[2020-05-09] MEDS ORDERED: POTASSIUM CL SA 10 MEQ TAB PO ONE (08:00)
--- NOTE | 2020-05-09 08:30 | P.DS ---
Admission Date: 05/08/20 Discharge Date: 05/09/20 Disposition: ROUTINE DISCHARGE Discharge Condition: GOOD Reason for Admission: Hypoglycemia Brief History of Present Illness: 59-year-old woman with a history of diabetes mellitus type 2, hypothyroidism was brought to the emergency department because of hypoglycemia. Patient stated she was not able to get out of bed or move her body for about 4 hours. Symptoms started this morning. She struggled he eventually to a phone and called EMS. EMS found her with a blood sugar of 35. Patient was given oral glucose enroute to the ED. Her blood sugar in the ED was 41. Patient was given 50 ml of D50. Her blood sugar is currently 230. Patient denies any loss of consciousness. Her symptoms has currently resolved. She has been using Levemir insulin 45 units twice a day. Patient states she eats only once a day at lunch. She stated this is her 1st hypoglycemia episode since she was switched from glimepiride to insulin. She is placed under observation for further monitoring. Hospital Course: Patient was placed on D5 water infusion and successfully transitioned off. She was able to maintain her blood glucose high enough without dextrose supplements. As stated above, she is on levemir 45 units BID and glimeperide. With a A1c 6.2, this is most likely aggressive regimen for her diabetes. She will be discharged without OHA or insulin and instructed to follow up with her PCP regarding a safe regimen less likely to cause hypoglycemic events. Vital Signs/Physical Exam: Temp Pulse Resp BP Pulse Ox 97.8 F 73 20 137/77 93 05/09/20 04:00 05/09/20 04:00 05/09/20 04:00 05/09/20 04:00 05/09/20 04:00 General: In no apparent distress, Cooperative, Obese HEENT: Atraumatic, Normocephalic, EOMI Neck: Supple Respiratory: Clear to auscultation bilaterally, Normal air movement Cardiovascular: No edema, Normal pulses, Regular rate/rhythm, Normal S1 S2 Gastrointestinal: Normal bowel sounds, Non-distended, No tenderness Neurological: Normal speech, Sensation intact, Normal affect Laboratory Data at Discharge: WBC 6.9 K/uL (4.3-10.9) 05/08/20 03:30 Hgb 12.5 g/dL (12.0-15.0) D 05/08/20 03:30 Hct 36.7 % (36.0-45.0) D 05/08/20 03:30 Plt Count 260 K/uL (152-406) D 05/08/20 03:30 Sodium 140 mmol/L (136-145) 05/09/20 05:24 Potassium 3.7 mmol/L (3.5-5.1) 05/09/20 05:24 BUN 9 mg/dL (7-18) 05/09/20 05:24 Creatinine 0.66 mg/dL (0.55-1.3) 05/09/20 05:24 Glucose 123 mg/dL (74-106) H 05/09/20 05:24 Phosphorus 3.0 mg/dL (2.5-4.9) 05/08/20 03:30 Magnesium 1.5 mg/dL (1.8-2.4) L 05/09/20 05:24 Lipase 120 U/L (73-393) 05/07/20 14:30 Home Medications: carvediloL [Coreg*] 12.5 mg PO BID #60 tab 11/24/15 Amlodipine [Norvasc*] 5 mg PO BID #60 tab 01/01/18 Aspirin [Aspirin EC 81 MG] 81 mg PO DAILY #90 tablet. 01/01/18 Pantoprazole [Protonix Tab*] 40 mg PO DAILY #30 tab 01/01/18 Atorvastatin Calcium [Lipitor] 40 mg PO BEDTIME #30 tab 02/20/19 Nitroglycerin 0.4 mg SL SEECOM #30 tab.subl 02/20/19 Diet: ADA Followup: Srinath Sabillon FNP [OUTSIDE PHYSICIAN] -
[2020-05-09] MEDS: ASPIRIN EC 81 MG TAB PO SCH (10:38)
[2020-05-09] MEDS: PANTOPRAZOLE 40MG TABLET PO SCH (10:40)
[2020-05-09 14:29] VITALS: BP 152/94; TEMP 97.9
== END 2020-05-09 13:35 | disposition home or self-care (01) | DRG 639 ==
LOC: ER 14:25 → ERHOLD 17:57 → 2ND 20:36 → OBSVTOIN 05-08 07:38
PROVIDERS: ADMIT Internal Medicine; ATTEND Internal Medicine
DX: E11.649 Type 2 diabetes mellitus with hypoglycemia without coma (principal); I10 Essential (primary) hypertension; E03.9 Hypothyroidism, unspecified; K21.9 Gastro-esophageal reflux disease without esophagitis; E78.5 Hyperlipidemia, unspecified; F17.210 Nicotine dependence, cigarettes, uncomplicated; N17.9 Acute kidney failure, unspecified; E66.9 Obesity, unspecified; Z68.35 Body mass index [BMI] 35.0-35.9, adult; Z88.1 Allergy status to other antibiotic agents; Z88.8 Allergy status to other drugs, medicaments and biological substances; Z79.82 Long term (current) use of aspirin; Z79.84 Long term (current) use of oral hypoglycemic drugs; Z79.899 Other long term (current) drug therapy; Z20.828 Contact with and (suspected) exposure to other viral communicable diseases
CPT/HCPCS: 36415; 70450; 80048; 81003; 81015; 82947; 83036; 83690; 83735; 84100; 84132; 84443; 85025; 93005; 96374; 96375; 99285; G0378; J1644; J2405; J3475; J7040; J7042; U0002

== ENCOUNTER 2020-06-08 06:52 | Inpatient (IN) | payer SELFPAY ==
--- OUTSIDE RECORDS SUMMARY | 2020-06-08 06:55 | XMS REPORT | Clinical Summary ---
:1960 Author Organization [facility] Address [address] [place] [address] Care Team Providers Name Role Phone Unavailable [...] post administration of tPA (rtPA) in a [facility] facility within 12/07/2018 the last 24 [...] PANEL 12/08/2021 12/08/2018 Results Not on fileafter 06/08/2019 Advance Directives For more information, please contact: [phone] Code Status Date Activated Date Inactivated Comments Full Code 12/07/2018 6:12 PM 12/11/2018 5:47 PM This code status was determined by: Patient
--- OUTSIDE RECORDS SUMMARY | 2020-06-08 06:56 | XMS REPORT | Continuity of Care Document ---
:1960 Author Organization [employer] Care Team Providers Name Role Phone [employer] Unavailable Un available Problems Problem Status Onset Classification Date Comments Sourc e Date Reported PANCREATITIS Active 10/31/19 15 Diverticulitis Resolved Problem 2014 MH (disorder) [facility] Hypertensive Resolved Problem 2014 MH disorder, [facility] systemic arterial (disorder) CHRONIC Active PANCREATITIS [facility] Medications Medication Details Route Status [...] Coreg) K-Dur Notes: (Same Inactive as: K-Dur 2014) "Do Not Crush" With food and full [...] No Longer 10/30 Daily, 0 Active 2014 [facility] Refill(s) Lisinopril 20 mg, PO, Active Daily, 0 2014 [facility] Refill(s) Allergies, Adverse Reactions, Alerts Substance [...] Lipase Lvl 545 73 - 393 11/01 [facility] CHEM PANEL Lipase Lvl 660 73 - 393 10/31 [facility] ELECTROLYTES Sodium Lvl 134 135 - 145 10/31 [facility] ELECTROLYTES Potassium 3.5 3.5 - 5.1 10/31 [facility] ELECTROLYTES Calcium Lvl 7.8 8.5 - 10.5 10/31 [facility] ELECTROLYTES Chloride Lvl 98 95 - 109 10/31 [facility] ELECTROLYTES eGFR 72 10/31 <sup>1</sup>R esult [facility] Comment: The eGFR is calculated using [...] ELECTROLYTES Globulin 3.0 2.0 - 4.0 10/31 [facility] ELECTROLYTES A/G Ratio 1.0 0.7 - 1.6 10/31 [facility] ELECTROLYTES AST 45 0 - 37 10/31 [facility] ELECTROLYTES ALT 57 0 - 65 10/31 [facility] ELECTROLYTES Alk Phos 49 39 - 136 10/31 [facility] ELECTROLYTES Bili Total 0.7 0.2 - 1.3 10/31 [facility] ELECTROLYTES Glucose Lvl 145 70 - 99 10/31 <sup>3</sup>I M H /2014 nterpretive [facility] Data: Adult reference range values reflect the clinical guidelines
of the [place] [employer]. ELECTROLYTES Creatinine 0.9 0.5 - 1.4 10/31 MH Lvl /2014 [facility] ELECTROLYTES BUN 12 7 - 22 10/31 [facility] ELECTROLYTES B/C Ratio 13 6 - 25 10/31 [facility] ELECTROLYTES CO2 30 24 - 32 10/31 [facility] ELECTROLYTES Total 6.1 6.4 - 8.4 10/31 MH Protein [facility] ELECTROLYTES AGAP 9.5 10.0 - 10/31 MH 20.0 /2014 [facility] ELECTROLYTES Albumin Lvl 3.1 3.5 - 5.0 10/31 [facility] HEMATOLOGY Eosinophils 0.2 0.0 - 0.5 10/31 MH # /2015 [facility] HEMATOLOGY Macrocyte 2+ None Seen 10/31 MH *ABN* /2014 [facility] (10/31/14 5:18 AM) HEMATOLOGY Monocytes # 0.5 0.0 - 0.8 10/31 [facility] HEMATOLOGY Eosinophils 2.3 0.0 - 4.0 10/31 [facility] HEMATOLOGY Lymphocytes 1.2 1.0 - 5.5 10/31 MH # /2014 [facility] HEMATOLOGY Basophils 0.3 0.0 - 1.0 10/31 [facility] HEMATOLOGY Segs-Bands # 6.1 1.5 - 8.1 10/31 [facility] HEMATOLOGY Monocytes 6.1 2.0 - 12.0 10/31 [facility] HEMATOLOGY Lymphocytes 15.1 20.0 - 10/31 MH 40.0 /2014 [facility] HEMATOLOGY Segs 76.2 45.0 - 10/31 MH 75.0 /2014 [facility] HEMATOLOGY MCHC 33.9 32.0 - 10/31 MH 36.0 /2014 [facility] HEMATOLOGY MCV 104.7 80.0 - 10/31 MH 98.0 /2014 [facility] HEMATOLOGY Hct 35.5 36.0 - 10/31 MH 48.0 /2014 [facility] HEMATOLOGY Hgb 12.0 12.0 - 10/31 MH 16.0 /2014 [facility] HEMATOLOGY WBC 8.0 3.7 - 10.4 10/31 [facility] HEMATOLOGY RBC 3.39 4.20 - 10/31 MH 5.40 /2014 [facility] HEMATOLOGY Platelet 128 133 - 450 10/31 [facility] HEMATOLOGY MPV 9.5 7.4 - 10.4 10/31 [facility] HEMATOLOGY RDW 12.7 11.5 - 10/31 MH 14.5 [facility] HEMATOLOGY MCH 35.5 27.0 - 10/31 MH 31.0 [facility] LIPIDS HDL 77 >=61 mg/dL 10/31 [facility] LIPIDS Chol 172 <=199 10/31 mg/dL [facility] LIPIDS Trig 67 <=149 10/31 mg/dL [facility] LIPIDS LDL 82 <=99 mg/dL 10/31 (Calculated) [facility] LIPIDS CHD Risk 2.23 3.90 - 10/31 MH 5.80 /2014 [facility] LIPIDS VLDL 13 10/31 [facility] CHEM PANEL Lipase Lvl 1352 73 - 393 10/30 [facility] CHEM PANEL Alk Phos 50 39 - 136 10/30 [facility] CHEM PANEL Bili Total 1.0 0.2 - 1.3 10/30 [facility] CHEM PANEL Albumin Lvl 3.6 3.5 - 5.0 10/30 [facility] CHEM PANEL CO2 33 24 - 32 10/30 [facility] CHEM PANEL Total 6.4 6.4 - 8.4 10/30 [facility] CHEM PANEL ALT 84 0 - 65 10/30 [facility] CHEM PANEL AST 92 0 - 37 10/30 [facility] CHEM PANEL Glucose Lvl 105 70 - 99 10/30 <sup>4</sup>I nterpretive [facility] Data: Adult reference range values reflect the clinical guidelines
of the [place] [employer]. CHEM PANEL BUN 30 7 - 22 10/30 [facility] CHEM PANEL eGFR 46 10/30 <sup>2</sup>R esult [facility] Comment: The eGFR is calculated using [...] PANEL Potassium 3.1 3.5 - 5.1 10/30 [facility] CHEM PANEL Calcium Lvl 8.3 8.5 - 10.5 10/30 [facility] CHEM PANEL Chloride Lvl 96 95 - 109 10/30 [facility] CHEM PANEL Sodium Lvl 136 135 - 145 10/30 [facility] CHEM PANEL Creatinine 1.3 0.5 - 1.4 10/30 [facility] CHEM PANEL Globulin 2.8 2.0 - 4.0 10/30 [facility] CHEM PANEL A/G Ratio 1.3 0.7 - 1.6 10/30 [facility] CHEM PANEL B/C Ratio 23 6 - 25 10/30 [facility] CHEM PANEL AGAP 10.1 10.0 - 10/30 MH 20.0 /2014 [facility] HEMATOLOGY Macrocyte 1+ None Seen 10/30 *ABN* /2014 [facility] (10/30/14 7:48 AM) HEMATOLOGY Segs-Bands # 5.5 1.5 - 8.1 10/30 [facility] HEMATOLOGY Basophils 0.7 0.0 - 1.0 10/30 [facility] HEMATOLOGY Eosinophils 1.4 0.0 - 4.0 10/30 [facility] HEMATOLOGY Basophils # 0.1 0.0 - 0.2 10/30 [facility] HEMATOLOGY Eosinophils 0.1 0.0 - 0.5 10/30 MH # /2014 [facility] HEMATOLOGY Lymphocytes 1.6 1.0 - 5.5 10/30 MH # /2014 [facility] HEMATOLOGY Monocytes # 0.5 0.0 - 0.8 10/30 [facility] HEMATOLOGY Monocytes 6.7 2.0 - 12.0 10/30 /2014 [facility] HEMATOLOGY Lymphocytes 20.3 20.0 - 10/30 MH 40.0 /2014 [facility] HEMATOLOGY Segs 70.9 45.0 - 10/30 75.0 /2014 [facility] HEMATOLOGY RDW 12.9 11.5 - 10/30 14.5 /2014 [facility] HEMATOLOGY Hgb 12.8 12.0 - 10/30 16.0 /2014 [facility] HEMATOLOGY RBC 3.56 4.20 - 10/30 5.40 /2014 [facility] MPV 8.3 7.4 - 10.4 10/30 [facility] HEMATOLOGY Platelet 163 133 - 450 10/30 [facility] HEMATOLOGY MCV 103.3 80.0 - 10/30 98.0 /2014 [facility] HEMATOLOGY Hct 36.8 36.0 - 10/30 48.0 /2014 [facility] HEMATOLOGY MCHC 34.9 32.0 - 10/30 36.0 /2014 [facility] HEMATOLOGY MCH 36.1 27.0 - 10/30 31.0 /2014 [facility] WBC 7.8 3.7 - 10.4 10/30 [facility] Pathology Reports No Data Provided for [...] Date Comments Source Heart Rate 61 11/01/2014 [facility] Temperature Oral (F) 98.5 F 11/01/2014 [place] Systolic (mm Hg) 146 11/01/2014 [place] [facility] Diastolic (mm Hg) 87 [facility]01[facility] Resp[facility] 17 11/01/2014 [facility] Heart Rate 58 11/01/2014 [facility] Systolic (mm Hg) 136 [facility]01[facility] Diastolic (mm Hg) 80 11/01/[address] [facility] [address] Respitory Rate 17 11/01/2014 [facility] Temperature Oral (F) 98.6 F 11/01/2014 [place] Respitory Rate 17 11/01/2014 [facility] Systolic (mm Hg) 143 11/01/2014 [facility] t Diastolic (mm Hg) 81 11/01/2014 [facility] [address] Temperature Oral (F) 98 F 11/01/2014 [place] Heart Rate 66 11/01/2014 [facility] Weight 81.932 10/30/2014 [facility] BMI Calculated 31 10/30/2014 [facility] Height 162.56 cm 10/30/2014 [facility] Encounters Location Location Encounter Encounter Reason Attending ADM DC Stat us Source Details Type Number For Provider Date Date Visit [facility] Inpatient [id number] Aditya 10/30 11/01 [facility] Santosh /2014 [facility] Procedures Procedure Code Date Perfomer Comments Source section [id number] [facility] Assessment and Plan Assessment and Plan Date Source Extracted from:Title: Clinical Document 11/01/2014 [facility] Author: Aditya Frost DO Date: 10/31/14 Progress Daily [facility] SUBJECTIVE Pt is feeling better with minimal [...] 08:08) 110 (OCT 31 00:04) 138 (A [place] 03:50) DBP 81 (OCT 31 08:08) 69 [...] History Date Source Social History TypeResponse 10/30/2014 [facility] Substance Abuse Use: None. Alcohol Current, [...]
--- OUTSIDE RECORDS SUMMARY | 2020-06-08 06:57 | XMS REPORT | Continuity of Care Document ---
:1960 Author Organization [facility] t Address [address] [place] [address] Care Team Providers Name Role Phone KAREN CHIANG Attending Clinician Unavailable Teqwimdeb Attending Clinician KAREN CHIANG Admitting Clinician Un[facility] Problems Condition Condition Condition Status Onset Resolution Last Treating Co mments Source Name Details Category Date Date Treatment Clinician Date Type 2 Type [address] [facility]08 [facility] mellitus mellitus 00:[facility]: Medica l 00 Center Hypokalemi Hypokalemi Disease Active [facility] - [facility] Medical 00 [place] Hypomagnes Hypomagnes Disease Active [facility] emia emia 12-08 [facility] Alcohol Alcohol Disease Active [facility] abuse abuse 12[facility]08 [facility]: Medical 00 [place] Essential Essential Disease Active [facility] hypertensi [...] 2014-11-05 Memoria IS 10-30 21:50:00 l 03:39: [place]ias PANCREATIT 00 IS Active 5 [facility] Type 2 Type 2 Problem Active [...] n Diverticul itis (disorder) Resolved Problem 2014 [facility] Hypertensi Problem Resolve 2014 Memoria ve d 04:20:14 l disorder, Tobias systemic Hypertensi arterial ve (disorder) disorder, systemic arterial (disorder) Resolved Problem 2014 [facility] CHRONIC Diagnosis Active 2014-11-05 Me moria PANCREATIT 21:50:00 l IS CHRONIC Tobias PANCREATIT IS Active [facility] Allergies, Adverse Reactions, Alerts Allergy Allergy Status Severity Reaction(s) Onset Inactive Treating Comm ents Source Name Type Date Date Clinician Sulfamet Propensi Active Rash 2019-[address] hoxazole ty to 12-07 [facility] - -Trim[facility] adverse 00:00: Medical oprim reaction 00 Center s Sulfa Adverse Active Info Not [facility] Reaction Available [facility] Outpati ent Clinics Bactrim Bactrim Active Nikolai Collado Social History Social Habit Start Date Stop Date Quantity Comments Source Sex Assigned At [facility] Cigarettes smoked 2018-12-07 2018-12-07 [facility] - current (pack per 00:00:00 00:00:00 [facility] day) - Reported Cigarette 2018-12-07 2018-12-07 [facility] - pack-years 00:00:00 00:00:00 [facility] Tobacco use and 2018-12-07 2018-12-[address] [facility] - exposure 00:00:00 00:00:00 [facility] Alcohol intake 2018-12-07 2018-12-07 Current drinker of [facility] - 00:00:00 00:00:00 alcohol (finding) [facility] Tobacco Comment 2018-12-07 2018-12-07 1 pack every 2 days [facility] - 00:00:00 00:00:00 for the last 10 Medical C enter years Alcohol Comment 2018-12-07 2018-12-07 drinks occcasionally [facility] - 00:[facility]:00 00:00:00 run, last drank Medical C enter 12/06/18 Social History 2014-10-30 2014-10-30 [facility] 10:31:19 10:31:19 [place] Smoking Status Start Date Stop Date Source Current some day smoker 2018-12-07 00:00:00 [facility] Medications Ordered Filled Start Stop [...] HI St n 6-11 06-10 tablet by [facility] - (THERAGRAN) 00:00: 23:59 mouth Medi gurinder tablet 00 :00 daily. [place] ranitidine 2019-0 Yes 150mg Q.5D Take 150 [...] ia 4-30 (Same as: l 14:00: Prinivil, [place] 00 Zestril) Hydrochloro No Notes: Abad charlene [...] ia - Give with l 22:00: food. Tobias 00 (Same As: Coreg) K-Dur 20 No Notes: Memoria 10-30 (Same as: l 15:30: K-Dur 20) [place] 00 "Do Not Crush" With food and full glass of water Zofran No Notes: Memoria 10-30 (Same as: l 11:34: Zofran) [place] 00 MEDICATION WASTE Product Size: 4 mg Product Wasted: ___ mg Morphine No Notes: Memoria 10-30 (Same l 11:26: as:MORPhin [place] 00 e Sulfate) Dilaudid No 1 mg, 1 Memori a -29 mL, Route: l 11:25: IVP, Drug form: INJ, Q6H, Dosing Weight 81.932, kg, PRN Pain Score 7-10, Priority: STAT, Start date: 10/30/14 6:25:00, Duration: 30 day, Stop date: 11/29/14 6:24:00 Labetalol No Notes: Memori a 10-30 (Same as: l 11:23: Normodyne, [place] 00 Trandate) Push over 2 minutes Give [...] thiazide 10-30 PO, Daily, l 10:34: 0 Tobias 00 Refill(s) Lisinopril Yes 20 mg, PO, M emoria 10-30 Daily, 0 l 10:34: Refill(s) Tobias 00 Vital Signs Vital Name Observation Time Observation Value Comments Source Heart Rate 2014-11-01 17:00:00 [facility] [place] Temperature Oral (F) 2014-11-01 17:00:00 98.5 F [facility] [place] Systolic (mm Hg) 2014-11-01 17:00:00 Abad rial [place] Diastolic (mm Hg) 2014-11-01 17:00:00 Mem orial [place] Respitory Rate 2014-11-01 17:00:00 Memori al [place] Heart Rate 2014-11-01 13:00:00 [facility] [place] Systolic (mm Hg) 2014-11-01 13:00:00 Abad rial [place] Diastolic (mm Hg) 2014-11-01 13:00:00 Mem orial [place] Respitory Rate 2014-11-01 13:00:00 Memori al [place] Temperature Oral (F) 2014-11-01 13:00:00 98.6 F [facility] [place] Respitory Rate 2014-11-01 09:01:00 Memori al [place] Systolic (mm Hg) 2014-11-01 09:01:00 Abad rial [place]ias Diastolic (mm Hg) 2014-11-01 09:01:00 Mem orial [place] Temperature Oral (F) 2014-11-01 09:01:00 98 F [facility] [place] Heart Rate 2014-11-01 09:01:00 Maxwell Collado Weight 2014-10-30 10:23:00 Maxwell Collado BMI Calculated 2014-10-30 10:23:00 Aleks Tilleyann Height 2014-10-30 10:23:00 162.56 cm Maxwell Collado Procedures Procedure Date / Time Performed Performing Clinician [facility] e section Maxwell balbuena Plan of Care Planned Activity Planned Date Details Comments Source Future Scheduled 2021-12-[address] [facility] (procedure) [code = Medical Center 05626540] Future Scheduled 2020-03-04 INFLUENZA VACCINE (#1) [facility] [code = INFLUENZA Medical Ce nter VACCINE (#1)] Future Scheduled 2019-06-[address] [facility] - Test 00:00:00 measurement Medical Center (procedure) [code = 26924139] Future Scheduled 1979-11-[address] [facility] - Test 00:00:00 [facility] cervix (procedure) [code = 869989102] Future Scheduled [address] DIABETIC EYE EXAM [facility] - Test 00:00:00 [code = DIABETIC EYE Medical Center EXAM] Future Scheduled [address] - Test 00:00:00 examination Medical Center (regime/therapy) [code = 931019999] Future Scheduled 1968 Urine screening [facility] - Test 00:00:00 protein (procedure) [facility] [code = 376165268] Future Scheduled [address] [facility] - Test 00:00:00 0-64 YRS (1 of 1 - Medical C enter PPSV23) [code = PNEUMOCOCCAL VACCINE 0-64 YRS (1 of 1 - PPSV23)] Future Scheduled [address] [facility] - Test 00:00:00 [facility] breast (procedure) [code = 548823224] Future Scheduled [address] [facility] - Test 00:00:00 malignant neoplasm of [facility] colon (procedure) [code = 493262908] Encounters Start End Encounter Admission Attending Care Care Encounter Source Date/Time Date/Time Type Type Clinicians Facility Department ID 2017-12-01 2017-12-01 Outpatient Shiela Leyva [id number] 09:06:00 09:06:00 [facility] Medicine Medicine Outpati ent Clinics 2017-11-22 2017-11-22 Outpatient Shiela Leyva [id number] 13:28:00 13:28:00 [facility] Medicine Medicine Outpati ent [facility] 2017-10-28 2017-10-28 Outpatient Shiela Leyva [id number] 15:25:00 15:25:00 [facility] 2017-10-27 2017-10-27 Outpatient Shiela Leyva [id number] 11:53:00 11:53:00 [facility] 2017-10-25 2017-10-25 Outpatient Shiela Leyva [id number] 13:30:00 13:30:00 [facility] 2014-10-30 2014-11-[address] [facility] [id number] 05:18:00 16:02:00 Aditya 19 Results Test Description [...] NOT 1092) ACCURATE CRE ATININE CLEARANCE IN SD EDICTING GLOMERULAR FILT RATION RATE. ESTIMATED GFR IS NOT APPLICABLE FOR DIALYSIS PATIENTS. CBC W/PLT COUNT & AUTO [id number] 04:21:00 Test Item Value Reference Range Interpretation [...] PERCENT (BEAKER) (test code = 2801) POCT-GLUCOSE [id number] 22:00:00 Test Item Value Reference Range Interpretation Comments POC-GLUCOSE METER 148 mg/dL 70-110 H TESTED AT [facility] 6720 ([facility]) (test code = [facility] 1538) [address] POCT-GLUCOSE [id number] 17:06:00 Test Item Value Reference Range Interpretation Comments POC-GLUCOSE METER 224 mg/dL 70-110 H TESTED AT [place] [address] ([facility]) (test code = [facility] 1538) [address] POCT-GLUCOSE [id number] 12:39:00 Test Item Value Reference Range Interpretation Comments POC-GLUCOSE METER 214 mg/dL 70-110 H TESTED AT [place] [address] ([facility]) (test code = [facility] 1538) [address] POCT-GLUCOSE [id number] 08:26:00 Test Item Value Reference Range Interpretation Comments POC-GLUCOSE METER 166 mg/dL 70-110 H TESTED AT [place] [address] ([facility]) (test code = [facility] 1538) [address] COMPREHENSIVE METABOLIC [id number] 05:17:00 Test Item Value Reference Range Interpretation [...] S NOT APPLICABLE FOR DIALYSIS PATIEN TS. [id number] 05:14:00 Test Item Value Reference Range Interpretation Comments PHOSPHORUS (BEAKER) (test code = 2.9 mg/dL 2.3-4.7 604) [id number] 05:14:00 Test Item Value Reference Range Interpretation Comments MAGNESIUM (BEAKER) (test code = 1.6 mg/dL 1.6-2.6 627) CBC W/PLT COUNT & AUTO [id number] 04:48:00 Test Item Value Reference Range Interpretation [...] PERCENT (BEAKER) (test code = 2801) POCT-GLUCOSE [id number] 22:42:00 Test Item Value Reference Range Interpretation Comments POC-GLUCOSE METER 184 mg/dL 70-110 H TESTED AT [place] [address] ([facility]) (test code = [place] 1538) [address] POCT-GLUCOSE [id number] 18:51:00 Test Item Value Reference Range Interpretation Comments POC-GLUCOSE METER 220 mg/dL 70-110 H TESTED AT [place] [address] (BEAKER) (test code = GAIL Mccollum [facility] 1538) [address] [id number] 16:07:00 Test Item Value Reference Range Interpretation Comments MAGNESIUM (BEAKER) (test code = 1.8 mg/dL 1.6-2.6 627) [id number] 16:07:00 Test Item Value Reference Range Interpretation Comments POTASSIUM (BEAKER) (test code = 4.1 meq/L 3.5-5.1 379) POCT-GLUCOSE [id number] 15:47:00 Test Item Value Reference Range Interpretation Comments POC-GLUCOSE METER 215 mg/dL 70-110 H TESTED AT [place] [address] (BEAKER) (test code = GAIL Mccollum [facility] 1538) [address] [id number] 10:16:00 Test Item Value Reference Range Interpretation Comments MAGNESIUM (BEAKER) (test code = 1.7 mg/dL 1.6-2.6 627) POCT-GLUCOSE [id number] 09:25:00 Test Item Value Reference Range Interpretation Comments POC-GLUCOSE METER 156 mg/dL 70-110 H TESTED AT [facility] 6720 (BEAKER) (test code = FREDWI Vead [facility] 1538) [address] BASIC METABOLIC [id number] 06:32:00 Test Item Value Reference Range Interpretation [...] PATIEN TS. CBC W/PLT COUNT & AUTO [id number] 05:42:00 Test Item Value Reference Range Interpretation [...] PERCENT (BEAKER) (test code = 2801) POCT-GLUCOSE [id number] 22:05:00 Test Item Value Reference Range Interpretation Comments POC-GLUCOSE METER 255 mg/dL 70-110 H TESTED AT [facility] 9220 (BEAKER) (test code = GA[place] 1538) [address] MR, BRAIN, WITHOUT [id number] 19:23:00Reason for exam:->StrokeWhat is the patient's sedation [...] arteries: Normal flow-related enhancement within the bilateral WEB OPERATIONS LEAD P1-P2 segments without flow-limiting stenosis. 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 MRA NECK:Common carotid arteries: Unremarkable. [...] MDReport Verified Date/Time: 12/08/2018 19:23:05 Reading Location: [facility] C013V Neuro Reading Room MR, MRA, NECK, WITHOUT IV [id number] 19:23:00FINAL REPORT MR, BRAIN, WITHOUT CONTRAST, MR, [...] arteries: Normal flow-related enhancement within the bilateral WEB OPERATIONS LEAD P1-P2 segments without flow-limiting stenosis. 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 MRA NECK:Common carotid arteries: Unremarkable. [...] MDReport Verified Date/Time: 12/08/2018 19:23:05 Reading Location: [address] Neuro Reading Room MR, MRA, BRAIN, WITHOUT [id number] 19:23:00Reason for exam:->StrokeWhat is the patient's sedation [...] arteries: Normal flow-related enhancement within the bilateral WEB OPERATIONS LEAD P1-P2 segments without flow-limiting stenosis. 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 MRA NECK:Common carotid arteries: Unremarkable. [...] Holly Verified Date/Time: 12/08/2018 19:23:05 Reading Location: [address] Neuro Reading Room -GLUCOSE [id number] 19:03:00 Test Item Value Reference Range Interpretation Comments POC-GLUCOSE METER 158 mg/dL 70-110 H TESTED AT [facility] 67[address] (BEAKER) (test code = GAIL Mccollum [place] 1539) [id number] 17:33:00 Test Item Value Reference Range Interpretation Comments POTASSIUM (BEAKER) (test code = 4.0 meq/L 3.5-5.1 379) [id number] 17:33:00 Test Item Value Reference Range Interpretation Comments MAGNESIUM (BEAKER) (test code = 2.4 mg/dL 1.6-2.6 627) [id number] 14:55:00 Test Item Value Reference Range Interpretation Comments RPR SCREEN (BEAKER) (test code = Nonreactive Nonreactive 420) [id number] 12:28:00 Test Item Value Reference Range Interpretation Comments POTASSIUM (BEAKER) (test code = 2.9 meq/L 3.5-5.1 L 379) TROPONIN [id number] 10:59:00 Test Item Value Reference Range Interpretation [...] failure, acidosis, acute neurological disease, and persistent tachyarrhythmia.[id number] 10:50:00 Test Item Value Reference Range Interpretation Comments MAGNESIUM (BEAKER) (test code = 1.8 mg/dL 1.6-2.6 627) HEMOGLOBIN [id number] 07:49:00 Test Item Value Reference Range Interpretation Comments HEMOGLOBIN A1C (BEAKER) (test code = 8.1 % 4.3-6.1 H 368) HIV-1 ANTIGEN WITH HIV-1/2 [id number] 06:03:00 Test Item Value Reference Range Interpretation Comments HIV-1 ANTIGEN WITH HIV 1\\T\\2 Nonreactive Nonreactive ANTIBODY (2) (BEAKER) (test code = 2586) [id number] 05:54:00 Test Item Value Reference Range Interpretation Comments POTASSIUM (BEAKER) (test code = 2.8 meq/L 3.5-5.1 L 379) VITAMIN B12 AND [id number] 03:31:00 Test Item Value Reference Range Interpretation Comments VITAMIN B12 (BEAKER) (test code = 1168 pg/mL 213-816 H 774) FOLATE (BEAKER) (test code = 362) > ng/mL >=7.0 TSH/FREE T4 IF [id number] 03:24:00 Test Item Value Reference Range Interpretation Comments THYROID STIMULATING HORMONE 2.19 uIU/mL 0.35-4.94 (BEAKER) (test code = 772) BASIC METABOLIC [id number] 02:06:00 Test Item Value Reference Range Interpretation [...] m DATA TO CALCULA TE ESTIMATED GFR. [id number] 02:04:00 Test Item Value Reference Range Interpretation Comments MAGNESIUM (BEAKER) 1.5 mg/dL 1.6-2.6 L Specimen slightly (test code = 627) hemolyzed FastingLIPID [id number] 02:04:00 Test Item Value Reference Range Interpretation [...] High >=190 FastingCBC W/PLT COUNT & AUTO [id number] 01:36:00 Test Item Value Reference Range Interpretation [...] 0-1 PERCENT (BEAKER) (test code = 2801) [id number] 23:06:00 Test Item Value Reference Range Interpretation Comments ETHANOL (BEAKER) (test code = 400) < mg/dL <=10 TROPONIN [id number] 22:58:00 Test Item Value Reference Range Interpretation [...] acute neurological disease, and persistent tachyarrhythmia.BASIC METABOLIC [id number] 22:56:00 Test Item Value Reference Range Interpretation [...] DATA TO CALCULA TE ESTIMATED GFR. URINALYSIS [id number] 22:41:00 Test Item Value Reference Range Interpretation Comments RBC UA (BEAKER) (test code = 519) 1 /HPF WBC UA (BEAKER) (test code = 520) < /HPF SQUAMOUS EPITHELIAL (BEAKER) (test 7 /HPF code = 516) HYALINE CASTS (BEAKER) (test code = 2 /LPF 514) URINALYSIS WITH MICROSCOPIC IF [id number] 22:36:00 Test Item Value Reference Range Interpretation [...] SOURCE(BEAKER) (test code = 2795) BASIC METABOLIC [id number] 19:01:00 Test Item Value Reference Range Interpretation [...] m DATA TO CALCULA TE ESTIMATED GFR. [id number] 19:01:00 Test Item Value Reference Range Interpretation Comments MAGNESIUM (BEAKER) (test code = 0.7 mg/dL 1.6-2.6 LL 627) [id number] 18:58:00 Test Item Value Reference Range Interpretation Comments PHOSPHORUS (BEAKER) (test code = 3.3 mg/dL 2.3-4.7 604) HEPATIC FUNCTION [id number] 18:58:00 Test Item Value Reference Range Interpretation [...] code = 36 U/L 6-55 347) CHEM [id number] 08:47:40017Cyuxopac HermannCHEM [id number] 10:18:52010 [facility] RawyzybGOCSEUCVHDOD9207-76-90 10:18:66971Yagiduay HermannELECTROLYTES 2014-10-31 10:18:003.5[facility] XsobyqnSFONUVGKHRIU6680-05-13 10:18:007.8[facility]orial CjrjxgqIQQQXPBAPZXT1303-33-57 10:18:0098[facility] GyuzpkzHNXUPRMIERWC6865-33-37 10:18:0072[facility] ImaurnlPTDKEMUYIWUM9079-94-23 10:18:003.0[facility] HZGFXSIYFEPR9013-08-32 10:18:001.0[facility] UuzbjxrVVFIVAWKDWYU5666-13-75 10:18:0045[facility] KzwgcdgVFGZBBPHCHRG4224-09-73 10:18:0057[facility] [place] SGTHCPXMCGKS9521-60-84 10:18:0049[facility] IxrcbckGKCTECDWXBDX9331-91-73 10:18:00 0.7[facility] AktostdLJUFNMXNTKQO0820-39-51 10:18:93404Ootwbtcs [place] JHHKWPDGOSQO6469-20-12 10:18:000.9[facility] WzsvnboQPBFSEFHROOW6677-37-30 10:18:0012[facility] GmqerwyYTKHAYUHIBCV1450-64-69 10:18:0013[facility] [place] LITQZRZGELYX5844-43-78 10:18:0030[facility] NeqrnmrSKEVRWQSTRAJ5918-30-29 10:18:00 6.1[facility] NbxublnAMMOVSFFWBSL1552-59-73 10:18:009.5[facility] [place] RJVYEPXXRKWI0863-39-05 10:18:003.1[facility] LrbzzhwAOPKUEZTBZ6922-91-92 10:18:00 0.2[facility] LrpwdpsXOYXAARAGU1122-16-75 10:18:002+ *ABN*(10/31/14 5:18 AM) Memorial KvcdtudIFULNQAKDA6735-95-65 10:18:000.5[facility] HermannHEMATOLOGY 2014-10-31 10:18:002.3[facility] RzdziprZYCPEOPHVJ3767-63-51 10:18:001.2[facility] TdmcqyeWWMUCTMFHO9964-06-71 10:18:000.3[facility] QhciwciSTMZZGFCRM8471-65-00 10:18:006.1[facility] ElqgwqlGUFAZDPJEF2058-94-46 10:18:006.1[facility] [place] HXWDNSUGRX4229-91-30 10:18:0015.1[facility] SbquokfVRKVWHNCHZ5370-03-82 10:18:00 76.2[facility] XrwxxzuMPDKCSHAVB8219-53-74 10:18:0033.9[facility] HermannHEMATOLOGY 2014-10-31 10:18:43456.7[facility] XjgzhxwEHAFLPCWEK9620-64-58 10:18:0035.5 [facility] BodcswsNWEDUFTFOO7419-56-26 10:18:0012.0[facility] HermannHEMATOLOGY 2014-10-31 10:18:008.0[facility] UswrdafJKHJTVDFAA6397-25-72 10:18:003.39[facility] ZtzcwfiYDQFYCDCLN4890-56-62 10:18:54592Sbkgnndg SzhihhhNMBBQKZXZW0240-00-18 10:18:009.5[facility] MqugzhwIRTPEABSUZ0722-79-67 10:18:0012.7[facility] [place] PLKTQYNWEJ5967-42-11 10:18:00 Test Item Value Reference Range Interpretation Comments MCH (test code = MCH) 35.5 pg 27.0-31.0 Memorial [id number] 10:18:0077[facility] LezwgaaZZDIVI3438-35-40 10:18:42300Jdptsgqf KpckmybHKBGNW3556-82-79 10:18:0067[facility] HermannLIPIDS 2014-10-31 10:18:0082[facility] PpydmovBPQJLL3733-97-72 10:18:002.23[facility] CcqjolzGKBKEO4831-46-12 10:18:0013[facility] HermannCHEM IYLNZ8308-50-00 12:48:00 1352[facility] HermannCHEM FTQDW1342-51-34 12:48:0050[facility] HermannCHEM PANEL 2014-10-30 12:48:001.0[facility] HermannCHEM FIGRF6004-78-07 12:48:003.6[facility] HermannCHEM OLLWI4435-82-63 12:48:0033[facility] HermannCHEM OXCJS2339-95-73 12:48:006.4[facility] HermannCHEM FKVYK0362-27-53 12:48:0084[facility] HermannCHEM UKIUV8258-71-35 12:48:0092[facility] HermannCHEM LYXPH9276-77-16 12:48:67741 [facility] HermannCHEM QYTAK3659-91-15 12:48:0030[facility] HermannCHEM PANEL 2014-10-30 12:48:0046[facility] HermannCHEM SMIJF0225-24-45 12:48:003.1[facility] HermannCHEM OOEPN8444-15-58 12:48:008.3[facility] HermannCHEM ALGZH3786-08-10 12:48:0096[facility] HermannCHEM LBHSV4327-21-17 12:48:42501Rvrjocll HermannCHEM LTSWF2555-36-65 12:48:001.3[facility] HermannCHEM ZIEVN2060-42-76 12:48:002.8 [facility] HermannCHEM GBKDF4409-53-15 12:48:001.3[facility] HermannCHEM PANEL 2014-10-30 12:48:0023[facility] HermannCHEM IFFJK7781-91-05 12:48:0010.1[facility] BtgsbdoGUVGPLUOPN5706-99-88 12:48:001+ *ABN*(10/30/14 7:48 AM)[facility] HWRKIRMERD7778-70-32 12:48:005.5[facility] TizsotmBQTGIOBVFS0425-18-67 12:48:000.7 Memorial LqseimpJGWXUWHAIY1564-98-83 12:48:001.4[facility] HermannHEMATOLOGY 2014-10-30 12:48:000.1[facility] XrrsyskAMKMKSQTSU6971-96-86 12:48:000.1[facility] PbzltiwMDFZVPDTPC0792-37-77 12:48:001.6[facility] XivdierDCTLIQOLLZ5296-34-31 12:48:000.5[facility] ZyguqutLKGJDYCKNA9756-53-15 12:48:006.7[facility] [place] UDXXCDLXGU8959-77-92 12:48:0020.3[facility] GodsvrmJOXHDPTTAE9070-92-19 12:48:00 70.9[facility] YxernegLDFHWXWXGE5877-27-01 12:48:0012.9[facility] HermannHEMATOLOGY 2014-10-30 12:48:0012.8[facility] TrqoqwzOPVXIERKNU0160-45-24 12:48:003.56[facility] MonuasrSRQXPHYLLV0265-47-89 12:48:008.3[facility] CmyffgvEEYTWENBSI9278-49-24 12:48:21283Vnregbaz VwnthmhYSARFLJEVI7491-13-74 12:48:79915.3[facility] REVSCSOVYU8430-44-30 12:48:0036.8[facility] GfsenneFFPFHZYPWQ7618-51-33 12:48:00 34.9[facility] BinqjyxPMGPRTZGQB0287-55-57 12:48:00 Test Item Value Reference Range Interpretation Comments MCH (test code = MCH) 36.1 pg 27.0-31.0 [facility] YcooacnOLJVOBCHSE5680-06-97 12:48:007.8[facility] Tobias
[2020-06-08] MEDS ORDERED: FENTANYL CITR 100 MCG/2 ML ONE ×2 (07:30→08:14)
[2020-06-08] MEDS ORDERED: NA CHLORIDE 0.9% 1,000 ML ONE (07:30)
[2020-06-08] MEDS ORDERED: ONDANSETRON 4 MG/2 ML VIAL ONE (07:30)
[2020-06-08 09:47] LABS: Absolute Lymphocytes (CBC) 3.1 K/uL (0.7-4.9); Basophils % 0.3 % (0-1.3); Hematocrit 38.2 % (36.0-45.0); Lymphocytes % 36.1 % (15.3-44.8); MPV 8.7 fL (7.6-11.3); RBC Red Blood Cell Count 3.96 M/uL (3.86-4.86)
--- NOTE | 2020-06-08 09:47 | ER ---
Nurse's Notes [facility] Name: Billie Botello Age: 59 yrs Sex: Female : 1960 Arrival Date: 06/08/2020 Time: 06:53 Bed 7 Private MD: Diagnosis: Displaced trimalleolar fracture of left lower leg;Dislocation of left ankle joint;Hypotension, unspecified;Alcohol dependence with intoxication Presentation: 06/08 06:54 Chief complaint: EMS states: Pt was drinking all night, got out of bed when she slipped wh and fell. Pt denies LOC, Pt has obvious deformity on left ankle. Coronavirus screen: Client denies travel out of the [place] in the last 14 days. At this time, the client does not indicate any symptoms associated with coronavirus-19. Ebola Screen: Patient negative for fever greater than or equal to 101.5 degrees Fahrenheit, and additional compatible Ebola Virus Disease symptoms Patient denies exposure to infectious person. Initial Sepsis Screen: Does the patient meet any 2 criteria? No. Patient's initial sepsis screen is negative. Does the patient have a suspected source of infection? No. Patient's initial sepsis screen is negative. Risk Assessment: Do you want to hurt yourself or someone else? Patient reports no desire to harm self or others. Onset of symptoms was June 08, 2020. 06:54 Method Of Arrival: EMS: [facility] 06:54 Acuity: NIKA 3 Historical: - Allergies: 06:56 Bactrim; 06:56 Sulfa (Sulfonamide Antibiotics); 06:56 Trazodone; 06:56 TRIMETHOPRIM; - PMHx: 06:56 Diabetes - NIDDM; High Cholesterol; Hypertension; Pancreatitis; - PSHx: 06:56 Appendectomy; - Immunization history:: Adult Immunizations up to date. - Social history:: Smoking status: Patient reports the use of cigarette tobacco products, Patient uses alcohol, street drugs, marijuana. - Family history:: not pertinent. - Hospitalizations: : No recent hospitalization is reported. Screenin:57 Abuse screen: Denies threats or abuse. Denies injuries from another. Nutritional screening: No deficits noted. Tuberculosis screening: No symptoms or risk factors identified. Fall Risk Fall in past 12 months (25 points). Assessment: 07:20 General: Appears in no apparent distress. uncomfortable, unkempt, well developed, sv Behavior is cooperative, Smells of alcohol. Pain: Complains of pain in left ankle. Neuro: Level of Consciousness is awake, alert, obeys commands, Oriented to person, place, time, situation. Cardiovascular: Patient's skin is warm and dry. Respiratory: Respiratory effort is even, unlabored, Respiratory pattern is regular, symmetrical. Derm: Skin is pink, warm \T\ dry. Musculoskeletal: Range of motion: limited in left ankle Bony deformity noted of left ankle Swelling present in left ankle. 08:12 Reassessment: Patient appears in no apparent distress at this time. Patient and/or sv family updated on plan of care and expected duration. Pain level reassessed. Patient is alert, oriented x 3, equal unlabored respirations, skin warm/dry/pink. 08:22 Reassessment: Called pt's daughter Katherine at [phone] and [phone] with no sv answer. 08:41 Reassessment: Patient appears in no apparent distress at this time. Pt appears to be sv sleeping with eyes closed. Will continue to monitor. Respiratory: Respiratory effort is even, unlabored. 08:56 Reassessment: Pt given sandwich, chips and juice to drink. Ok by Dr Rodriguez. sv 09:30 Reassessment: Patient appears in no apparent distress at this time. Patient and/or sv family updated on plan of care and expected duration. Pain level reassessed. Patient is alert, oriented x 3, equal unlabored respirations, skin warm/dry/pink. 11:00 Reassessment: Patient appears in no apparent distress at this time. Patient and/or sv family updated on plan of care and expected duration. Pain level reassessed. Patient is alert, oriented x 3, equal unlabored respirations, skin warm/dry/pink. 12:40 Reassessment: Patient appears in no apparent distress at this time. Patient and/or sv family updated on plan of care and expected duration. Pain level reassessed. Patient is alert, oriented x 3, equal unlabored respirations, skin warm/dry/pink. 13:20 Reassessment: Patient appears in no apparent distress at this time. Patient and/or sv family updated on plan of care and expected duration. Pain level reassessed. Patient is alert, oriented x 3, equal unlabored respirations, skin warm/dry/pink. Vital Signs: 06:54 BP 102 / 80; Pulse 70; Resp 18; Temp 98.2; Pulse Ox 99% on R/A; Weight 83.91 kg; Height wh 5 ft. 4 in. (162.56 cm); 07:00 BP 97 / 70; Pulse 68 MON; Resp 19; Pulse Ox 100% on R/A; sv 07:40 Pulse Ox 91% on R/A; sv 07:54 BP 107 / 76; Pulse 68 MON; Resp 18; Pulse Ox 97% on 2 lpm NC; sv 08:47 BP 94 / 61; Pulse 61; Resp 16; Pulse Ox 99% on 2 lpm NC; sv 09:41 BP 92 / 66; Pulse 69; Resp 18; Pulse Ox 97% on 2 lpm NC; sv 10:30 BP 80 / 53; Pulse 66; Resp 14; Pulse Ox 96% on 2 lpm NC; sv 11:15 BP 86 / 48; Pulse 66; Resp 14; Pulse Ox 99% on 2 lpm NC; sv 12:06 BP 103 / 66; Pulse 75; Resp 16; Pulse Ox 98% on 2 lpm NC; sv 12:30 Pulse Ox 88% on 2 lpm NC; sv 12:43 BP 93 / 63; Pulse 76; Resp 14; Temp 98; Pulse Ox 96% on 4 lpm NC; sv 06:54 Body Mass Index 31.75 (83.91 kg, 162.56 cm) wh 07:00 Sinus Rhythm sv 07:54 Sinus Rhythm sv 07:40 Pt placed on O2 \T\ 2L per NC. O2 sat up to 100% sv 12:30 O2 increased to 4L per NC. sv ED Course: 06:53 Patient arrived in ED. cl3 06:56 Triage completed. wh 06:57 Patient has correct armband on for positive identification. Bed in low position. Call light in reach. Side rails up X 1. Pulse ox on. NIBP on. 06:57 Arm band placed on right wrist. wh 07:02 Hola Rodriguez MD is Attending Physician. rn 07:02 Missed attempt(s): 20 gauge in right hand. Inserted saline lock: 20 gauge in left lp1 antecubital area, using aseptic technique. 07:11 Chelsea Mcdonnell RN is Primary Nurse. sv 07:30 Warm blanket given. sv 07:35 X-ray(s) taken. sv 07:53 Assist provider with reduction of left ankle using manipulation, Set up for procedure. sv Performed by Hola Rodriguez MD Patient tolerated well. 08:00 Ankle Left 2 View In Process Unspecified. EDMS 08:05 Orthoglass splint: Posterior short lleg splint applied on left leg. stirrup splint sv applied on left leg. Placed by Michaela kidd and Dr Rodriguez. 08:06 Orthoglass splint: Posterior short lleg splint applied on left leg. stirrup splint dh3 applied on left leg. capillary refill <3 seconds, assisted by Dr. Rodriguez. 08:17 X-ray(s) taken. sv 08:27 XRAY Ankle LEFT 2 view In Process Unspecified. EDMS 08:29 Awaiting radiology results. sv 09:35 Initial lab(s) drawn, by pa, sent to lab. dh3 09:42 Awaiting lab results. sv 09:45 Gerardo Fernandes is Hospitalizing Provider. rn 12:00 Warm blanket given. Elevated left leg. sv 12:40 Awaiting bed assignment. sv 13:26 Patient admitted, IV remains in place. intact. sv Administered Medications: 07:20 Drug: NS 0.9% 1000 ml Route: IV; Rate: 1000 ml; Site: left antecubital; sv 09:00 Follow up: Response: No adverse reaction; IV Status: Completed infusion; IV Intake: sv 1000ml 07:20 Drug: Zofran (Ondansetron) 4 mg Route: IVP; Site: left antecubital; sv 08:05 Follow up: Response: No adverse reaction sv 07:22 Drug: fentaNYL (PF) 50 mcg {Note: rass2.} Route: IVP; Site: left antecubital; sv 08:05 Follow up: Response: No adverse reaction; No change in condition; RASS: Agitated (+2) sv 08:04 Drug: fentaNYL (PF) 50 mcg {Note: rass2.} Route: IVP; Site: left antecubital; sv 08:15 Follow up: Response: No adverse reaction; Marked relief of symptoms; Pain is decreased; sv RASS: Alert and Calm (0) Intake: 09:00 IV: 1000ml; Total: 1000ml. sv Outcome: 09:46 Decision to Hospitalize by Provider. rn 13:27 Admitted to Med/surg accompanied by tech, via stretcher, room 220, with oxygen, with sv chart, Report called to Afshan OLIVEIRA 13:27 Condition: stable 13:27 Instructed on the need for admit. 14:04 Patient left the ED. sv Signatures: Dispatcher [employer] EDMS Chelsea Mcdonnell RN RN sv Hola Rodriguez MD MD rn Pena, Laura, RN RN lp1 Michaela Lakhani 3 Liane Dobson Charde cl3 Corrections: (The following items were deleted from the chart) 07:59 07:52 To radiology for Ankle Left 3 View+RAD.RAD.BRZ. sv EDMS 08:13 08:05 Orthoglass splint: Posterior short lleg splint applied on left leg. stirrup sv splint applied on left leg. sv 08:41 07:54 BP 107 / 76; Pulse 68bpm; Monitor: Sinus RhythmResp 18bpm; Pulse Ox 97%; sv sv 08:47 08:47 BP 94 / 71; Pulse 61bpm; Resp 16bpm; Pulse Ox 99% 2 lpm Nasal Cannula; sv sv
--- NOTE | 2020-06-08 09:47 | EDPHYS ---
Physician Documentation [facility] Name: Billie Botello Age: 59 yrs Sex: Female : 1960 Arrival Date: 06/08/2020 Time: 06:53 Bed 7 Private MD: ED Physician Hola Rodriguez HPI: 06/08 07:16 This 59 yrs old Female presents to ER via EMS with complaints of Ankle Injury.rn 07:16 The patient presents with a deformity, an injury. The complaints affect the left ankle. rn Onset: The symptoms/episode began/occurred just prior to arrival. Context: The problem was sustained at home, resulted from a mis-step by the patient, The mechanism of injury is unknown. The patient is unable to bear weight. The patient is not able to ambulate. Associated signs and symptoms: Pertinent positives: swelling, Pertinent negatives: weakness. Modifying factors: The symptoms are alleviated by nothing, the symptoms are aggravated by movement. Severity of symptoms: At their worst the symptoms were moderate, in the emergency department the symptoms are unchanged. The patient has not experienced similar symptoms in the past. The patient has not recently seen a physician. Reports is alcoholic, drinking last night, was walking to bathroom and rolled her ankle, no other injury, unable to walk on it. Reports NPO since last night.. Historical: - Allergies: 06:56 Bactrim; 06:56 Sulfa (Sulfonamide Antibiotics); 06:56 Trazodone; 06:56 TRIMETHOPRIM; - PMHx: 06:56 Diabetes - NIDDM; High Cholesterol; Hypertension; Pancreatitis; - PSHx: 06:56 Appendectomy; - Immunization history:: Adult Immunizations up to date. - Social history:: Smoking status: Patient reports the use of cigarette tobacco products, Patient uses alcohol, street drugs, marijuana. - Family history:: not pertinent. - Hospitalizations: : No recent hospitalization is reported. ROS: 07:16 Constitutional: Negative for fever, chills, and weight loss, MS/Extremity: + left ankle rn injury Skin: + ankle injury and deformity Exam: 07:16 Constitutional: This is a well developed, well nourished patient who is awake, alert, rn appears uncomfortable Cardiovascular: Regular rate and rhythm. No pulse deficits. Respiratory: No increased work of breathing, no retractions or nasal flaring. Skin: Warm, dry, no open wounds MS/ Extremity: Pulses equal, no cyanosis. + left ankle in splint from EMS, no open wounds, lateral dislocation of foot with external rotation. Neuro: Awake and alert, GCS 15 Vital Signs: 06:54 BP 102 / 80; Pulse 70; Resp 18; Temp 98.2; Pulse Ox 99% on R/A; Weight 83.91 kg; Height wh 5 ft. 4 in. (162.56 cm); 07:00 BP 97 / 70; Pulse 68 MON; Resp 19; Pulse Ox 100% on R/A; sv 07:40 Pulse Ox 91% on R/A; sv 07:54 BP 107 / 76; Pulse 68 MON; Resp 18; Pulse Ox 97% on 2 lpm NC; sv 08:47 BP 94 / 61; Pulse 61; Resp 16; Pulse Ox 99% on 2 lpm NC; sv 09:41 BP 92 / 66; Pulse 69; Resp 18; Pulse Ox 97% on 2 lpm NC; sv 10:30 BP 80 / 53; Pulse 66; Resp 14; Pulse Ox 96% on 2 lpm NC; sv 11:15 BP 86 / 48; Pulse 66; Resp 14; Pulse Ox 99% on 2 lpm NC; sv 12:06 BP 103 / 66; Pulse 75; Resp 16; Pulse Ox 98% on 2 lpm NC; sv 12:30 Pulse Ox 88% on 2 lpm NC; sv 12:43 BP 93 / 63; Pulse 76; Resp 14; Temp 98; Pulse Ox 96% on 4 lpm NC; sv 06:54 Body Mass Index 31.75 (83.91 kg, 162.56 cm) wh 07:00 Sinus Rhythm sv 07:54 Sinus Rhythm sv 07:40 Pt placed on O2 \T\ 2L per NC. O2 sat up to 100% sv 12:30 O2 increased to 4L per NC. sv Procedures: 08:06 Splinting: Splint applied to left ankle using Orthoglass splint, applied by myself. rn post reduction film - reveals improved alignment, Examined by me, post splint application: neurovascular intact, 2+ distal pulses palpable, brisk capillary refill noted, Patient tolerated well. Reduction: of the left ankle, using traction, manipulation, Immobilized with posterior and stirrup orthoglass splint. Patient tolerated well. Post reduction film - reveals improved alignment. MDM: 07:02 Patient medically screened. rn 08:39 ED course: Pt not doing as instructed, probably due to alcohol, but continues to move rn ankle and foot despite splint, not keeping it immobile, is unstable ankle and post-reduction shows mild lateral subluxation, will keep in splint and have f/u with ortho as outpt. . 09:43 Differential diagnosis: fracture, sprain. Differential diagnosis: dislocation. Data rn reviewed: vital signs, nurses notes, lab test result(s), radiologic studies, plain films, and as a result, I will admit patient. Counseling: I had a detailed discussion with the patient and/or guardian regarding: the historical points, exam findings, and any diagnostic results supporting the discharge/admit diagnosis, lab results, radiology results, the need for outpatient follow up, to return to the emergency department if symptoms worsen or persist or if there are any questions or concerns that arise at home. Response to treatment: There is no appreciated change of the patient's symptoms at this time, and as a result, I will admit patient. Admission orders: after a detailed discussion of the patient's condition and case, the admit orders are written by me. ED course: Ankle reduced, pain not controlled, patient with hypotension, dehydration due to alcoholism, lives alone, high fall risk given alcoholic and now with large leg splint, unable to tolerate crutches or even standing/balancing on good leg here, will have to obs to Dr. fernandes for these reasons. Do not anticipate surgery during hospitalization. . 14:15 ED course: Dr. Elkins called after being consulted by hospitalist service for rn trimalleolar fracture. Wanted to know why he was not consulted in ER, told him I reduced ankle, is splinted, and I do not believe she needs emergent or urgent orthopedic consultation. I am in agreement with him that patient can wait for outpt fixation. Told him patient was admitted for medical/social reasons of alcholism, hypotension, and high fall risk due to large splint and ETOH intoxication. She was not admitted for trimalleolar fracture as this can be outpt treatment. . 06/08 09:30 Order name: CBC with Diff; Complete Time: 09:52 rn 06/08 09:30 Order name: BMP; Complete Time: 10:09 rn 06/08 07:59 Order name: Ankle Left 2 View; Complete Time: 11:51 EDMS 06/08 09:30 Order name: CK; Complete Time: 10:09 rn 06/08 09:36 Order name: ETOH Level; Complete Time: 10:09 rn 06/08 07:10 Order name: IV Start; Complete Time: 07:11 rn 06/08 08:06 Order name: XRAY Ankle LEFT 2 view; Complete Time: 11:51 rn Administered Medications: 07:20 Drug: NS 0.9% 1000 ml Route: IV; Rate: 1000 ml; Site: left antecubital; sv 09:00 Follow up: Response: No adverse reaction; IV Status: Completed infusion; IV Intake: sv 1000ml 07:20 Drug: Zofran (Ondansetron) 4 mg Route: IVP; Site: left antecubital; sv 08:05 Follow up: Response: No adverse reaction sv 07:22 Drug: fentaNYL (PF) 50 mcg {Note: rass2.} Route: IVP; Site: left antecubital; sv 08:05 Follow up: Response: No adverse reaction; No change in condition; RASS: Agitated (+2) sv 08:04 Drug: fentaNYL (PF) 50 mcg {Note: rass2.} Route: IVP; Site: left antecubital; sv 08:15 Follow up: Response: No adverse reaction; Marked relief of symptoms; Pain is decreased; sv RASS: Alert and Calm (0) Disposition: 06/08/20 09:46 Hospitalization ordered by Gerardo Fernandes for Observation. Preliminary diagnosis are Displaced trimalleolar fracture of left lower leg, Dislocation of left ankle joint, Hypotension, unspecified, Alcohol dependence with intoxication. - Bed requested for Telemetry/MedSurg (observation). - Status is Observation. sv - Condition is Stable. - Problem is new. - Symptoms have improved. Signatures: Dispatcher [employer] EDMS Chelsea Mcdonnell RN Hola Harris MD MD rn Habalo, Winsy wh Aguilar, Jose, RN RN Soledad Quiroga Corrections: (The following items were deleted from the chart) 07:59 07:11 Ankle Left 3 View+RAD.RAD.BRZ ordered. EDMS EDMS 13:15 09:46 Hospitalization Ordered by Gerardo Fernandes for Observation. Preliminary diagnosis ja1 is Displaced trimalleolar fracture of left lower leg; Dislocation of left ankle joint; Hypotension, unspecified; Alcohol dependence with intoxication. Bed requested for Telemetry/MedSurg (observation). Status is Observation. Condition is Stable. Problem is new. Symptoms have improved. rn 13:17 13:15 06/08/2020 09:46 Hospitalization Ordered by Gerardo Fernandes for Observation. ja1 Preliminary diagnosis is Displaced trimalleolar fracture of left lower leg; Dislocation of left ankle joint; Hypotension, unspecified; Alcohol dependence with intoxication. Bed requested for Telemetry/MedSurg (observation). Status is Observation. Condition is Stable. Problem is new. Symptoms have improved. ja1 13:18 13:17 06/08/2020 09:46 Hospitalization Ordered by Gerardo Fernandes for Observation. eb Preliminary diagnosis is Displaced trimalleolar fracture of left lower leg; Dislocation of left ankle joint; Hypotension, unspecified; Alcohol dependence with intoxication. Bed requested for Telemetry/MedSurg (observation). Status is Observation. Condition is Stable. Problem is new. Symptoms have improved. ja1 13:27 13:18 06/08/2020 09:46 Hospitalization Ordered by Gerardo Fernandes for Observation. sv Preliminary diagnosis is Displaced trimalleolar fracture of left lower leg; Dislocation of left ankle joint; Hypotension, unspecified; Alcohol dependence with intoxication. Bed requested for Telemetry/MedSurg (observation). Status is Observation. Condition is Stable. Problem is new. Symptoms have improved. eb 14:04 13:27 06/08/2020 09:46 Hospitalization Ordered by Gerardo Fernandes for Observation. sv Preliminary diagnosis is Displaced trimalleolar fracture of left lower leg; Dislocation of left ankle joint; Hypotension, unspecified; Alcohol dependence with intoxication. Bed requested for Telemetry/MedSurg (observation). Status is Observation. Condition is Stable. Problem is new. Symptoms have improved. sv
[2020-06-08 10:07] LABS: Potassium 3.2 mmol/L (3.5-5.1)
--- NOTE | 2020-06-08 11:23 | P.HP ---
Certification for Inpatient Patient admitted to: Inpatient With expected LOS: >2 Midnights Practitioner: I am a practitioner with admitting privileges, knowledge of patient current condition, hospital course, and medical plan of care. Services: Services provided to patient in accordance with Admission requirements found in Title 42 Section 412.3 of the Code of Federal Regulations Patient History Date of Service: 06/08/20 Reason for admission: Fall with ankle fracture History of Present Illness: 59-year-old woman with a history of alcohol abuse reported she had an accidental fall. She tripped over a step and fell injuring her left ankle. Imaging done in the emergency department and demonstrates left malleolar fractures. Patient is not able to ambulate due to loss of function and pain. Her ankle was splinted in the ED. Patient is admitted for further management. Her alcohol level was 306 in the ED today. Allergies sulfamethoxazole [From Bactrim] Allergy (Intermediate, Verified 05/07/20 21:54) Rash trimethoprim [From Bactrim] Allergy (Intermediate, Verified 05/07/20 21:54) Rash Sulfa (Sulfonamide Antibiotics) Allergy (Verified 05/07/20 21:54) Unknown trazodone Allergy (Verified 05/07/20 21:54) Itching Home Medications: carvediloL [Coreg*] 12.5 mg PO BID #60 tab 11/24/15 Amlodipine [Norvasc*] 5 mg PO BID #60 tab 01/01/18 Aspirin [Aspirin EC 81 MG] 81 mg PO DAILY #90 tablet. 01/01/18 Pantoprazole [Protonix Tab*] 40 mg PO DAILY #30 tab 01/01/18 Atorvastatin Calcium [Lipitor] 40 mg PO BEDTIME #30 tab 02/20/19 Nitroglycerin 0.4 mg SL SEECOM #30 tab.subl 02/20/19 - Past Medical/Surgical History Diabetic: Yes -: HTN -: Hyperlipidemia -: Hypothyroidism -: GERD -: Tobacco abuse -: Diabetes mellitus type 2 in non insulin-dependent -: renal insufficiency -: hypercholesterolemia -: -: R wrist Sx (metal plate) -: rectal polyps removed Psychosocial/ Personal History: The patient is single. She has 1 child. She works at [email or web address] - Family History Sister -: Lung disease, Diabetes Mother -: Heart disease, Cancer Notes: lymphoma Father -: Heart disease - Social History Alcohol use: Yes CD- Drugs: No Caffeine use: Yes Review of Systems Other: Except as documented, all other systems reviewed and negative. Physical Examination - Physical Exam General: Alert, In no apparent distress HEENT: Mucous membr. moist/pink Neck: Supple, JVD not distended Respiratory: Clear to auscultation bilaterally, Normal air movement Cardiovascular: No edema, Regular rate/rhythm, Normal S1 S2 Capillary refill: <2 Seconds Gastrointestinal: Normal bowel sounds, Soft and benign, No tenderness Musculoskeletal: Other (Left leg in a splint) Integumentary: No rashes Neurological: Normal speech, Other (Nonfocal) - Studies Laboratory Data (last 24 hrs) 06/08/20 09:35: Sodium 138, Potassium 3.2 L, BUN 12, Creatinine 1.10, Glucose 230 H 06/08/20 09:35: WBC 8.6, Hgb 12.9, Hct 38.2, Plt Count 286 Assessment and Plan - Problems (Diagnosis) (1) Fall Current Visit: Yes Status: Acute (2) Closed left ankle fracture Current Visit: Yes Status: Acute (3) Alcohol intoxication Current Visit: Yes Status: Acute - Plan Admit to the medical floor. Pain management with IV morphine. IV Ativan p.r.n. for impending alcohol withdrawal. Consult to ortho-Dr. Elkins. PT evaluation Insulin sliding scale for glucose management. - Advance Directives Does patient have a Living Will: No Does patient have a Durable POA for Healthcare: No
--- NOTE | 2020-06-08 11:37 | RAD REPORT ---
EXAM DESCRIPTION: RAD - Ankle Left 2 View - 06/08/2020 8:26 am CLINICAL HISTORY: post reduction COMPARISON: Ankle Left 2 View dated 06/08/2020 FINDINGS: Trimalleolar fracture pattern is again seen. Widening of the medial clear space is seen wi thin the bony fragment present. Tibiotalar subluxation/ dislocation appears to been reduced. Moderate calcaneal spurs. A splint has been placed about the ankle.
--- NOTE | 2020-06-08 11:37 | RAD REPORT ---
EXAM DESCRIPTION: RAD - Ankle Left 2 View - 06/08/2020 7:59 am CLINICAL HISTORY: DEFORMITY COMPARISON: No comparisons FINDINGS: The examination is limited by nonstandard anatomic positioning. Trimalleolar fracture is s uspected. Subluxation/dislocation at the level of the tibiotalar joint is noted. Calcaneal spurs are evident.
[2020-06-08] MEDS ORDERED: LORazepam 2 MG/ML VIAL IV PRN (13:31)
[2020-06-08] MEDS: NA CHLORIDE 0.9% 1,000 ML IV SCH ×2 (13:53→23:59)
[2020-06-08] MEDS: INSULIN -REGULAR HUMAN 50 UNIT/0.5 ML ML SQ SCH ×3 (13:53→20:35)
[2020-06-08] MEDS: MORPHINE 2 MG/ML SYR IV PRN ×2 (14:02→20:33)
[2020-06-08 14:28] VITALS: BMI 37.0
[2020-06-08] MEDS: HEPARIN 5000 UNIT/ML 1 ML VIAL SQ SCH (15:55)
[2020-06-08 19:50] LABS: Urine Appearance CLEAR; Urine Bilirubin NEGATIVE (NEG); Urine Blood NEGATIVE (NEG); Urine Color YELLOW; Urine Glucose NEGATIVE (NEG); Urine Protein NEGATIVE (NEG); Urine Specific Gravity 1.015 (1.005-1.030); Urine Urobilinogen 0.2 mg/dL (0.2-1.0)
[2020-06-08 20:15] LABS: Urine Microscopic Reflex NO UMIC
[2020-06-09] MEDS: HEPARIN 5000 UNIT/ML 1 ML VIAL SQ SCH ×3 (00:01→18:05)
[2020-06-09] MEDS: MORPHINE 2 MG/ML SYR IV PRN ×6 (00:04→22:24)
[2020-06-09 05:47] LABS: Absolute Lymphocytes (CBC) 2.1 K/uL (0.7-4.9); Basophils % 0.7 % (0-1.3); Lymphocytes % 30.9 % (15.3-44.8); MPV 9.1 fL (7.6-11.3); RBC Red Blood Cell Count 3.99 M/uL (3.86-4.86)
[2020-06-09 05:53] LABS: Magnesium 1.5 mg/dL (1.8-2.4); Phosphorus 2.4 mg/dL (2.5-4.9); Potassium 3.4 mmol/L (3.5-5.1)
[2020-06-09] MEDS: POTASS/SODIUM PHOSPHATE 1 PKT POWD.PACK PO SCH ×3 (06:28→09:18)
[2020-06-09] MEDS ORDERED: Magnesium Sulfate 2gm IVPB 2 G/50 ML BAG IV ONE (07:30)
[2020-06-09] MEDS ORDERED: POTASSIUM CL SA 10 MEQ TAB PO ONE (07:30)
[2020-06-09] MEDS: INSULIN -REGULAR HUMAN 50 UNIT/0.5 ML ML SQ SCH ×4 (08:36→20:47)
[2020-06-09 11:27] LABS: Urine Appearance CLEAR; Urine Bilirubin NEGATIVE (NEG); Urine Blood NEGATIVE (NEG); Urine Color YELLOW; Urine Glucose TRACE (NEG); Urine Protein NEGATIVE (NEG); Urine Specific Gravity <=1.005 (1.005-1.030); Urine Urobilinogen 0.2 mg/dL (0.2-1.0); Urine pH 7.5 (5.0-7.0)
[2020-06-09 11:38] LABS: Urine Microscopic Reflex NO UMIC
[2020-06-09] MEDS: NA CHLORIDE 0.9% 1,000 ML IV SCH ×3 (13:06→22:24)
[2020-06-09 14:01] LABS: Magnesium 2.2 mg/dL (1.8-2.4); Potassium 3.8 mmol/L (3.5-5.1)
[2020-06-09] MEDS ORDERED: methocarbamoL 750 MG TAB PO PRN (14:17)
--- NOTE | 2020-06-09 14:17 | P.PN ---
Subjective Date of Service: 06/09/20 Chief Complaint: Fall with ankle fracture Patient has no complaint except pain in her left lower extremity. No symptoms or signs of alcohol withdrawal. Physical Examination - Vital Signs Temperature: 97.4 F Blood Pressure: 160/86 Pulse: 78 Respirations: 18 Pulse Ox (%): 92 - Physical Exam General: Alert, In no apparent distress Neck: Supple Respiratory: Clear to auscultation bilaterally, Normal air movement Cardiovascular: No edema, Regular rate/rhythm, Normal S1 S2 Gastrointestinal: Normal bowel sounds, Soft and benign, No tenderness Musculoskeletal: Other (Left leg in s) Integumentary: No rashes Neurological: Other (Nonfocal) Assessment And Plan - Current Problems (Diagnosis) (1) Fall Current Visit: Yes Status: Acute (2) Closed left ankle fracture Current Visit: Yes Status: Acute (3) Alcohol intoxication Current Visit: Yes Status: Acute - Plan Continue pain management with IV morphine. IV Ativan p.r.n. for impending alcohol withdrawal. Case discussed with Dr. Elkins. Patient will need outpatient surgery only after a week or 2 when when the ankle swelling has subsided. PT evaluation to evaluate functional status and her mobility needs for discharge. Insulin sliding scale for glucose management.
[2020-06-09] MEDS: carvediloL 12.5 MG TAB PO SCH (20:45)
[2020-06-09] MEDS: ATORVASTATIN 40 MG TAB PO SCH (20:45)
[2020-06-10] MEDS: HEPARIN 5000 UNIT/ML 1 ML VIAL SQ SCH ×3 (00:14→16:06)
[2020-06-10 06:37] LABS: Magnesium 1.9 mg/dL (1.8-2.4); Phosphorus 2.4 mg/dL (2.5-4.9); Potassium 3.6 mmol/L (3.5-5.1)
[2020-06-10] MEDS: MORPHINE 2 MG/ML SYR IV PRN ×3 (06:48→16:06)
[2020-06-10] MEDS: NA CHLORIDE 0.9% 1,000 ML IV SCH ×3 (06:49→23:25)
[2020-06-10] MEDS: INSULIN -REGULAR HUMAN 50 UNIT/0.5 ML ML SQ SCH ×4 (07:30→21:42)
[2020-06-10] MEDS ORDERED: POTASSIUM CL SA 10 MEQ TAB PO ONE (09:00)
[2020-06-10] MEDS ORDERED: INSULIN DETEMIR 30 UNIT SQ SCH (09:00)
[2020-06-10] MEDS: DOXEPIN HCL 6 MG PO SCH (09:00)
[2020-06-10] MEDS ORDERED: HOME MED 1 EA UNK (Omeprazole [Prilosec] 1 TAB) PO SCH (09:00)
[2020-06-10] MEDS ORDERED: HOME MED 1 EA UNK (Hydroxyzine Hcl [Atarax] 25 MG) PO SCH (09:00)
[2020-06-10] MEDS: POTASS/SODIUM PHOSPHATE 1 PKT POWD.PACK PO SCH ×3 (10:01→12:39)
[2020-06-10] MEDS: ASPIRIN EC 81 MG TAB PO SCH (10:01)
[2020-06-10] MEDS: hydrOXYzine HCL 25 MG TAB PO SCH (10:01)
[2020-06-10] MEDS: FENOFIBRATE 160 MG TAB PO SCH (10:02)
[2020-06-10] MEDS: carvediloL 12.5 MG TAB PO SCH ×2 (10:02→21:36)
[2020-06-10] MEDS: CITALOPRAM 10 MG TABLET PO SCH (10:02)
[2020-06-10] MEDS: PANTOPRAZOLE 40MG TABLET PO SCH (10:02)
[2020-06-10] MEDS: AMLODIPINE 10 MG TAB PO SCH (10:02)
[2020-06-10] MEDS: INSULIN GLARGINE 100 UNITS/ML SQ SCH (10:03)
--- NOTE | 2020-06-10 15:15 | P.PN ---
Subjective Date of Service: 06/10/20 Chief Complaint: Fall with ankle fracture Subjective: Improving (continues with pain, slight improvement, concerned about going home safely, lives alone, but does live in small 1 room apartment.) Review of Systems 10-point ROS is otherwise unremarkable Physical Examination - Vital Signs Temperature: 98 F Blood Pressure: 163/81 Pulse: 73 Respirations: 18 Pulse Ox (%): 94 - Physical Exam General: Alert, In no apparent distress, Oriented x3 HEENT: Sclerae nonicteric Respiratory: Clear to auscultation bilaterally Cardiovascular: Regular rate/rhythm Gastrointestinal: Soft and benign, No tenderness Musculoskeletal: Other (LLE: splint in place, able to wiggle toes, warm & well perfused, with intact sensation) Neurological: Normal speech, Normal affect Assessment & Plan Physician Review Additional Text: Fall Closed left ankle fracture (Trimalleolar fracture) Alcohol intoxication Continue pain management, will order tramadol, morphine for breakthrough IV Ativan p.r.n. for possible alcohol withdrawal - patient denies any recent alcohol withdrawal symptoms Per chart review- Case discussed with Dr. Elkins. Patient will need outpatient surgery only after a week or 2 when when the ankle swelling has subsided. PT consulted, yesterday reported patient is unsafe to be discharged home. To work with patient again today to ensure safety with transfers/mobility Insulin sliding scale for glucose management. Dispo: Anticipate Dc home in 24-48hrs, pending improvement of mobility / safe transferring patient lives home alone in small 1 room apartment, states bathroom is ~15 steps away Time Spent Managing Pts Care (In Minutes): 35
[2020-06-10] MEDS: TRAMADOL HCL 50 MG TAB PO PRN (21:36)
[2020-06-10] MEDS: ATORVASTATIN 40 MG TAB PO SCH (21:36)
[2020-06-11] MEDS: MORPHINE 2 MG/ML SYR IV PRN ×5 (00:21→22:14)
[2020-06-11] MEDS: HEPARIN 5000 UNIT/ML 1 ML VIAL SQ SCH ×3 (00:22→16:33)
[2020-06-11] MEDS: NA CHLORIDE 0.9% 1,000 ML IV SCH ×3 (01:31→18:00)
[2020-06-11 04:53] LABS: Phosphorus 3.4 mg/dL (2.5-4.9)
[2020-06-11] MEDS: INSULIN -REGULAR HUMAN 50 UNIT/0.5 ML ML SQ SCH ×4 (07:30→19:56)
[2020-06-11] MEDS: CITALOPRAM 10 MG TABLET PO SCH (07:59)
[2020-06-11] MEDS: AMLODIPINE 10 MG TAB PO SCH (07:59)
[2020-06-11] MEDS: carvediloL 12.5 MG TAB PO SCH ×2 (07:59→20:57)
[2020-06-11] MEDS: ASPIRIN EC 81 MG TAB PO SCH (07:59)
[2020-06-11] MEDS: PANTOPRAZOLE 40MG TABLET PO SCH (07:59)
[2020-06-11] MEDS: hydrOXYzine HCL 25 MG TAB PO SCH (08:00)
[2020-06-11] MEDS: FENOFIBRATE 160 MG TAB PO SCH (08:00)
[2020-06-11] MEDS: INSULIN GLARGINE 100 UNITS/ML SQ SCH (08:01)
[2020-06-11] MEDS: DOXEPIN HCL 6 MG PO SCH (09:00)
--- NOTE | 2020-06-11 17:45 | P.PN ---
Subjective Date of Service: 06/11/20 Chief Complaint: Fall with ankle fracture Subjective: Improving (Patient doing better with physical therapy, continues with pain of her ankle) Review of Systems 10-point ROS is otherwise unremarkable Physical Examination - Vital Signs Temperature: 97.0 F Blood Pressure: 133/87 Pulse: 68 Respirations: 16 Pulse Ox (%): 98 - Physical Exam General: Alert, In no apparent distress HEENT: Sclerae nonicteric Respiratory: Clear to auscultation bilaterally Cardiovascular: No edema, Regular rate/rhythm Gastrointestinal: Soft and benign, No tenderness Integumentary: Other (Left toes, warm well perfused, intact sensation. Left lower extremity splint in place) Neurological: Normal speech, Normal affect Assessment & Plan Physician Review Additional Text: Fall Closed left ankle fracture (Trimalleolar fracture) Alcohol intoxication Continue pain management, tramadol, morphine for breakthrough IV Ativan p.r.n. for possible alcohol withdrawal - patient denies any recent alcohol withdrawal symptoms, seems to be doing well so far Per chart review- Case discussed with Dr. Elkins. Patient will need outpatient surgery only after a week or 2 when when the ankle swelling has subsided. PT consulted, initially patient was unsafe to be discharged home, not doing much better with pivot/transfers. Will need wheelchair for home Patient lives home alone, she may have family to rearrange her home but unsure if she will have family to stay with her Insulin sliding scale for glucose management. Dispo: Anticipate Dc home in 24-48hrs, pt doing better with transfers / mobility, discussed possible dc home tomorrow, pt states family can't find wheelchair anywhere today Time Spent Managing Pts Care (In Minutes): 40
[2020-06-11] MEDS: ATORVASTATIN 40 MG TAB PO SCH (20:56)
[2020-06-11 21:24] VITALS: O2SAT 95
[2020-06-12] MEDS: TRAMADOL HCL 50 MG TAB PO PRN ×2 (00:28→09:53)
[2020-06-12] MEDS: HEPARIN 5000 UNIT/ML 1 ML VIAL SQ SCH ×2 (00:29→08:51)
[2020-06-12] MEDS: INSULIN -REGULAR HUMAN 50 UNIT/0.5 ML ML SQ SCH ×2 (07:30→12:11)
[2020-06-12] MEDS: PANTOPRAZOLE 40MG TABLET PO SCH (08:49)
[2020-06-12] MEDS: INSULIN GLARGINE 100 UNITS/ML SQ SCH (08:49)
[2020-06-12] MEDS: carvediloL 12.5 MG TAB PO SCH (08:50)
[2020-06-12] MEDS: FENOFIBRATE 160 MG TAB PO SCH (08:50)
[2020-06-12] MEDS: CITALOPRAM 10 MG TABLET PO SCH (08:50)
[2020-06-12] MEDS: ASPIRIN EC 81 MG TAB PO SCH (08:51)
[2020-06-12] MEDS: AMLODIPINE 10 MG TAB PO SCH (08:51)
[2020-06-12] MEDS: hydrOXYzine HCL 25 MG TAB PO SCH (08:51)
[2020-06-12] MEDS: DOXEPIN HCL 6 MG PO SCH (08:52)
[2020-06-12 12:15] VITALS: BP 123/78; TEMP 97.1
--- NOTE | 2020-06-12 12:18 | P.DS ---
Admission Date: 06/08/20 Discharge Date: 06/12/20 Disposition: ROUTINE DISCHARGE Discharge Condition: GOOD Reason for Admission: Fall with ankle fracture Consultations: Orthopedic Surgery - Dr. Elkins Procedures: Ankle X-ray (06/08): examination is limited by nonstandard anatomic positioning. Trimalleolar fracture is suspected. Subluxation/dislocation at the level of the tibiotalar joint is noted. Ankle X-ray (06/08): Trimalleolar fracture pattern is again seen. Widening of the medial clear space is seen within the bony fragment present. Tibiotalar subluxation/ dislocation appears to been reduced. Moderate calcaneal spurs. A splint has been placed about the ankle. Problem List: Fall Closed left ankle fracture (Trimalleolar fracture) Alcohol intoxication Insulin dependent DM2 Anxiety/Depression Brief History of Present Illness: 59-year-old woman with a history of alcohol abuse reported she had an accidental fall. She tripped over a step and fell injuring her left ankle. Imaging done in the emergency department and demonstrates left malleolar fractures. Patient is not able to ambulate due to loss of function and pain. Her ankle was splinted in the ED. Patient is admitted for further management. Her alcohol level was 306 in the ED Hospital Course: Orthopedic surgery was consulted by admitting physician and recommended outpatient surgery after 1-2 weeks so that the ankle swelling can subside. Patient was evaluated by PT. Initially she was felt too unsteady and unsafe to be discharged home, but had improvement of pivots / wheelchair and walker use. She was able to obtain these DME items and was discharged home. She is to f/u with Dr. Elkins. She was monitored for alcohol withdrawal but did not have any signs/symptoms. Vital Signs/Physical Exam: Temp Pulse Resp BP Pulse Ox 97.1 F 75 18 123/78 95 06/12/20 12:00 06/12/20 12:00 06/12/20 12:00 06/12/20 12:00 06/12/20 12:00 General: Alert, In no apparent distress, Oriented x3 HEENT: Sclerae nonicteric Respiratory: Clear to auscultation bilaterally Cardiovascular: Regular rate/rhythm Gastrointestinal: Soft and benign, No tenderness Musculoskeletal: Other (LLE in splint) Integumentary: Other (L toes with intact sensation, warm, well-perfused) Neurological: Normal speech, Normal affect Laboratory Data at Discharge: WBC 6.9 K/uL (4.3-10.9) D 06/09/20 05:07 Hgb 13.1 g/dL (12.0-15.0) 06/09/20 05:07 Hct 38.0 % (36.0-45.0) 06/09/20 05:07 Plt Count 263 K/uL (152-406) 06/09/20 05:07 Sodium 138 mmol/L (136-145) 06/11/20 04:08 Potassium 4.0 mmol/L (3.5-5.1) 06/11/20 04:08 BUN 10 mg/dL (7-18) 06/11/20 04:08 Creatinine 0.89 mg/dL (0.55-1.3) 06/11/20 04:08 Glucose 145 mg/dL (74-106) H 06/11/20 04:08 Phosphorus 3.4 mg/dL (2.5-4.9) 06/11/20 04:08 Magnesium 1.9 mg/dL (1.8-2.4) 06/10/20 05:43 Home Medications: carvediloL [Coreg*] 12.5 mg PO BID #60 tab 11/24/15 Aspirin [Aspirin EC 81 MG] 81 mg PO DAILY #90 tablet. 01/01/18 Atorvastatin Calcium [Lipitor] 40 mg PO BEDTIME #30 tab 02/20/19 Amlodipine [Norvasc*] 10 mg PO DAILY 06/08/20 Citalopram [Celexa*] 20 mg PO DAILY 06/08/20 Doxepin HCl [Silenor] 1 tab PO DAILY 06/08/20 Fenofibrate [Tricor*] 1 tab PO DAILY 06/08/20 Hydroxyzine HCl [Atarax] 25 mg PO DAILY 06/08/20 Insulin Detemir [Levemir] 30 units SQ DAILY 06/08/20 Methocarbamol [Robaxin-750] 1 tab PO BIDP PRN 06/08/20 Omeprazole [Prilosec] 1 tab PO DAILY 06/08/20 Potassium Gluconate 550 mg PO DAILY 06/08/20 Tramadol HCl [Ultram] 50 mg PO Q8HR PRN #10 tablet 06/12/20 New Medications: Tramadol HCl [Ultram] 50 mg PO Q8HR PRN #10 tablet PRN Reason: Pain Scale 5-7 (Moderate) Patient Discharge Instructions: follow up with PCP within 1 week. follow up with Dr. Elkins (orthopedic surgery) in ~1week - call his office, to schedule appointment and surgery. continue home medications as prescribed. Diet: ADA Activity: Non-weight bearing (of left leg; use wheelchair and walker for mobility) Followup: Pancho Elkins MD [ACTIVE - CAN ADMIT] - (call to schedule appointment) NONE,NONE [Primary Care Provider] - Time spent managing pt's care (in minutes): 35
== END 2020-06-12 16:45 | disposition home or self-care (01) | DRG 563 ==
LOC: ER 06:52 → ERHOLD 10:56 → 2ND 13:18
PROVIDERS: ADMIT Internal Medicine; ATTEND Hospitalist
DX: S82.852A Displaced trimalleolar fracture of left lower leg, initial encounter for closed fracture (principal); F41.9 Anxiety disorder, unspecified; F32.9 Major depressive disorder, single episode, unspecified; E11.9 Type 2 diabetes mellitus without complications; I10 Essential (primary) hypertension; K21.9 Gastro-esophageal reflux disease without esophagitis; F17.210 Nicotine dependence, cigarettes, uncomplicated; F10.229 Alcohol dependence with intoxication, unspecified; Y90.8 Blood alcohol level of 240 mg/100 ml or more; W06.XXXA Fall from bed, initial encounter; Z88.1 Allergy status to other antibiotic agents; Z88.8 Allergy status to other drugs, medicaments and biological substances; Z90.49 Acquired absence of other specified parts of digestive tract; Z79.82 Long term (current) use of aspirin; Z79.899 Other long term (current) drug therapy; Z60.2 Problems related to living alone; Z79.4 Long term (current) use of insulin; Z20.828 Contact with and (suspected) exposure to other viral communicable diseases
CPT/HCPCS: 36415; 80048; 80320; 81003; 82550; 82947; 83605; 83735; 84100; 84132; 85025; 96361; 96374; 96375; 97110; 97116; 97161; 97530; 97542; 99285; J1644; J1815; J2270; J2405; J3010; J3475; J7030; U0003

== ENCOUNTER 2020-07-26 17:29 | Inpatient (IN) | payer SELFPAY ==
--- OUTSIDE RECORDS SUMMARY | 2020-07-26 17:30 | XMS REPORT | Clinical Summary ---
:1960 Author Organization [facility] Address [address] [place] [address] Care Team Providers Name Role Phone Unavailable [...] post administration of tPA (rtPA) in a [facility] within 12/07/2018 the last 24 [facility] Social History Tobacco Use Types Packs/Day [...] PANEL 12/08/2021 12/08/2018 Results Not on fileafter 07/26/2019 Advance Directives For more information, please contact: [phone] Code Status Date Activated Date Inactivated Comments Full Code 12/07/2018 6:12 PM 12/11/2018 5:47 PM This code status was determined by: Patient
--- OUTSIDE RECORDS SUMMARY | 2020-07-26 17:31 | XMS REPORT | Continuity of Care Document ---
:1960 Author Organization [facility] Care Team Providers Name Role Phone [facility] Unavailable Un available Problems Problem Status Onset Classification Date Comments Sourc e Date Reported PANCREATITIS Active 10/31/19 [facility] [address] Diverticulitis Resolved Problem 2014 [facility] (disorder) [facility] Hypertensive Resolved Problem 2014 [facility] disorder, [facility] systemic arterial (disorder) CHRONIC Active PANCREATITIS [facility] st Medications Medication Details Route Status Patient Ordering [...] Notes: (Same No Longer as: Active 2014 [facility] Normodyne, Trandate) Push over 2 minutes Give [...] No Longer 10/30 Daily, 0 Active 2014 [facility] Refill(s) Lisinopril 20 mg, PO, Active Daily, 0 2014 [facility] Refill(s) Allergies, Adverse Reactions, Alerts Substance [...] Lipase Lvl 545 73 - 393 11/01 [facility] CHEM PANEL Lipase Lvl 660 73 - 393 10/31 [facility] ELECTROLYTES Sodium Lvl 134 135 - 145 10/31 [facility] ELECTROLYTES Potassium 3.5 3.5 - 5.1 10/31 [facility] ELECTROLYTES Calcium Lvl 7.8 8.5 - 10.5 10/31 [facility] ELECTROLYTES Chloride Lvl 98 95 - 109 10/31 [facility] ELECTROLYTES eGFR 72 10/31 <sup>1</sup>R esult [facility] Comment: The eGFR is calculated using [...] ELECTROLYTES Globulin 3.0 2.0 - 4.0 10/31 [facility] ELECTROLYTES A/G Ratio 1.0 0.7 - 1.6 10/31 [facility] ELECTROLYTES AST 45 0 - 37 10/31 [facility] ELECTROLYTES ALT 57 0 - 65 10/31 [facility] ELECTROLYTES Alk Phos 49 39 - 136 10/31 [facility] ELECTROLYTES Bili Total 0.7 0.2 - 1.3 10/31 [facility] ELECTROLYTES Glucose Lvl 145 70 - 99 10/31 <sup>3</sup>I M H /2014 nterpretive [facility] Data: Adult reference range values reflect the clinical guidelines
of the [employer]. ELECTROLYTES Creatinine 0.9 0.5 - 1.4 10/31 MH Lvl /2014 [facility] ELECTROLYTES BUN 12 7 - 22 10/31 [facility] ELECTROLYTES B/C Ratio 13 6 - 25 10/31 [facility] ELECTROLYTES CO2 30 24 - 32 10/31 [facility] ELECTROLYTES Total 6.1 6.4 - 8.4 10/31 MH Protein [facility] ELECTROLYTES AGAP 9.5 10.0 - 10/31 MH 20.0 /2014 [facility] ELECTROLYTES Albumin Lvl 3.1 3.5 - 5.0 10/31 [facility] HEMATOLOGY Eosinophils 0.2 0.0 - 0.5 10/31 MH # /2015 [facility] HEMATOLOGY Macrocyte 2+ None Seen 10/31 MH *ABN* /2014 [facility] (10/31/14 5:18 AM) HEMATOLOGY Monocytes # 0.5 0.0 - 0.8 10/31 [facility] HEMATOLOGY Eosinophils 2.3 0.0 - 4.0 10/31 [facility] HEMATOLOGY Lymphocytes 1.2 1.0 - 5.5 10/31 MH # /2014 [facility] HEMATOLOGY Basophils 0.3 0.0 - 1.0 10/31 [facility] HEMATOLOGY Segs-Bands # 6.1 1.5 - 8.1 10/31 [facility] HEMATOLOGY Monocytes 6.1 2.0 - 12.0 10/31 [facility] HEMATOLOGY Lymphocytes 15.1 20.0 - 10/31 MH 40.0 /2014 [facility] HEMATOLOGY Segs 76.2 45.0 - 10/31 MH 75.0 /2014 [facility] HEMATOLOGY MCHC 33.9 32.0 - 10/31 MH 36.0 /2014 [facility] HEMATOLOGY MCV 104.7 80.0 - 10/31 MH 98.0 /2014 [facility] HEMATOLOGY Hct 35.5 36.0 - 10/31 MH 48.0 /2014 [facility] HEMATOLOGY Hgb 12.0 12.0 - 10/31 MH 16.0 /2014 [facility] HEMATOLOGY WBC 8.0 3.7 - 10.4 10/31 [facility] HEMATOLOGY RBC 3.39 4.20 - 10/31 MH 5.40 /2014 [facility] HEMATOLOGY Platelet 128 133 - 450 10/31 [facility] HEMATOLOGY MPV 9.5 7.4 - 10.4 10/31 [facility] HEMATOLOGY RDW 12.7 11.5 - 10/31 MH 14.5 /2014 [facility] HEMATOLOGY MCH 35.5 27.0 - 10/31 MH 31.0 [facility] LIPIDS HDL 77 >=61 mg/dL 10/31 [facility] LIPIDS Chol 172 <=199 10/31 mg/dL [facility] LIPIDS Trig 67 <=149 10/31 mg/dL /2014 [facility] LIPIDS LDL 82 <=99 mg/dL 10/31 (Calculated) [facility] LIPIDS CHD Risk 2.23 3.90 - 10/31 MH 5.80 /2014 [facility] LIPIDS VLDL 13 10/31 [facility] CHEM PANEL Lipase Lvl 1352 73 - 393 10/30 [facility] CHEM PANEL Alk Phos 50 39 - 136 10/30 [facility] CHEM PANEL Bili Total 1.0 0.2 - 1.3 10/30 [facility] CHEM PANEL Albumin Lvl 3.6 3.5 - 5.0 10/30 [facility] CHEM PANEL CO2 33 24 - 32 10/30 [facility] CHEM PANEL Total 6.4 6.4 - 8.4 10/30 [facility] CHEM PANEL ALT 84 0 - 65 10/30 [facility] CHEM PANEL AST 92 0 - 37 10/30 [facility] CHEM PANEL Glucose Lvl 105 70 - 99 10/30 <sup>4</sup>I nterpretive [facility] Data: Adult reference range values reflect the clinical guidelines
of the [place] [employer]. CHEM PANEL BUN 30 7 - 22 10/30 [facility] CHEM PANEL eGFR 46 10/30 <sup>2</sup>R esult [facility] Comment: The eGFR is calculated using [...] PANEL Potassium 3.1 3.5 - 5.1 10/30 [facility] CHEM PANEL Calcium Lvl 8.3 8.5 - 10.5 10/30 [facility] CHEM PANEL Chloride Lvl 96 95 - 109 10/30 [facility] CHEM PANEL Sodium Lvl 136 135 - 145 10/30 [facility] CHEM PANEL Creatinine 1.3 0.5 - 1.4 10/30 [facility] CHEM PANEL Globulin 2.8 2.0 - 4.0 10/30 [facility] CHEM PANEL A/G Ratio 1.3 0.7 - 1.6 10/30 [facility] CHEM PANEL B/C Ratio 23 6 - 25 10/30 [facility] CHEM PANEL AGAP 10.1 10.0 - 10/30 MH 20.0 /2014 [facility] HEMATOLOGY Macrocyte 1+ None Seen 10/30 *ABN* /2014 [facility] (10/30/14 7:48 AM) HEMATOLOGY Segs-Bands # 5.5 1.5 - 8.1 10/30 [facility] HEMATOLOGY Basophils 0.7 0.0 - 1.0 10/30 [facility] HEMATOLOGY Eosinophils 1.4 0.0 - 4.0 10/30 [facility] HEMATOLOGY Basophils # 0.1 0.0 - 0.2 10/30 [facility] HEMATOLOGY Eosinophils 0.1 0.0 - 0.5 10/30 # /2014 [facility] HEMATOLOGY Lymphocytes 1.6 1.0 - 5.5 10/30 # /2014 [facility] HEMATOLOGY Monocytes # 0.5 0.0 - 0.8 10/30 [facility] HEMATOLOGY Monocytes 6.7 2.0 - 12.0 10/30 /2014 [facility] HEMATOLOGY Lymphocytes 20.3 20.0 - 10/30 40.0 /2014 [facility] HEMATOLOGY Segs 70.9 45.0 - 10/30 75.0 /2014 [facility] HEMATOLOGY RDW 12.9 11.5 - 10/30 14.5 /2014 [facility] HEMATOLOGY Hgb 12.8 12.0 - 10/30 16.0 /2014 [facility] HEMATOLOGY RBC 3.56 4.20 - 10/30 5.40 /2014 [facility] HEMATOLOGY MPV 8.3 7.4 - 10.4 10/30 [facility] HEMATOLOGY Platelet 163 133 - 450 10/30 [facility] HEMATOLOGY MCV 103.3 80.0 - 10/30 98.0 /2014 [facility] HEMATOLOGY Hct 36.8 36.0 - 10/30 48.0 /2014 [facility] HEMATOLOGY MCHC 34.9 32.0 - 10/30 36.0 [facility] HEMATOLOGY MCH 36.1 27.0 - 10/30 31.0 /2014 [facility] WBC 7.8 3.7 - 10.4 10/30 [facility] Pathology Reports No Data Provided for [...] Date Comments Source Heart Rate 61 11/01/2014 [facility] Temperature Oral (F) 98.5 F 11/01/2014 [place] Systolic (mm Hg) 146 11/01/2014 [place] Diastolic (mm Hg) 87 [facility]01[facility] 17 11/01/2014 [facility] Heart Rate 58 11/01/2014 [facility] Systolic (mm Hg) 136 [facility] Di[facility] ([facility]) 80 11/01/[address] [facility] [address] Respitory Rate 17 11/01/2014 [facility] Temperature Oral (F) 98.6 F 11/01/2014 [place] Respitory Rate 17 11/01/2014 [facility] Systolic (mm Hg) 143 11/01/2014 [facility] t Diastolic (mm Hg) 81 11/01/[address] [facility] [address] Temperature Oral (F) 98 F 11/01/2014 [place] Heart Rate 66 11/01/2014 [facility] Weight 81.932 10/30/2014 [facility] BMI Calculated 31 10/30/2014 [facility] Height 162.56 cm 10/30/2014 [facility] Encounters Location Location Encounter Encounter Reason Attending ADM DC Stat us Source Details Type Number For Provider Date Date Visit [facility] Inpatient [id number] Aditya 10/30 11/01 [facility] Sant[facility] /2014 [facility] Procedures Procedure Code Date Perfomer Comments Source section [id number] [facility] Assessment and Plan Assessment and Plan Date Source Extracted from:Title: Clinical Document 11/01/2014 [facility] Author: Aditya Frost DO Date: 10/31/14 Progress Daily [facility] SUBJECTIVE Pt is feeling better with minimal [...] 08:08) 110 (OCT 31 00:04) 138 (A AL 03:50) DBP 81 (OCT 31 08:08) 69 [...] H 145 (OCT 31) H 105 (OCT 03) Ca L 7.8 (OCT 31) L 8.3 [...] History Date Source Social History TypeResponse 10/30/2014 [facility] Substance Abuse Use: None. Alcohol Current, Type [...]
--- OUTSIDE RECORDS SUMMARY | 2020-07-26 17:33 | XMS REPORT | Continuity of Care Document ---
:1960 Author Organization [facility] t Address 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 00:00: Medica l 00 [place] Hypokalemi Hypokalemi Disease Active [facility] - [facility] Medical 00 [place] Hypomagnes Hypomagnes Disease Active [facility] emia emia 12-08 [facility] Alcohol Alcohol Disease Active [facility] abuse abuse 12-08 [facility] Essential Essential Disease Active [facility] hypertensi hypertensi 12-08 [facility] kes - on on 00:00: Medical 00 Center Stroke Stroke Disease Active 2018- [facility] Status Status Disease Active 2018- [facility] post post 12-07 [facility] - [...] 03:39: Tobias PANCREATIT 00 IS Active 5 [facility] Type 2 Type 2 Problem Active [...] n Diverticul itis (disorder) Resolved Problem 2014 [facility] Hypertensi Problem Resolve 2014 Memoria ve d 04:20:14 l disorder, Tobias systemic Hypertensi arterial ve (disorder) disorder, systemic arterial (disorder) Resolved Problem 2014 [facility] CHRONIC Diagnosis Active 2014-11-05 Me moria PANCREATIT 21:50:00 l IS CHRONIC [place] PANCREATIT IS Active [facility] Allergies, Adverse Reactions, Alerts Allergy Allergy Status Severity Reaction(s) Onset Inactive Treating Comm ents Source Name Type Date Date Clinician Sulfamet Propensi Active Rash [facility] hoxazole ty to 12-07 [facility] - -Trimeth adverse 00:00: Medical oprim reaction 00 Center s Sulfa Adverse Active Info Not [facility] Reaction Available [facility] - Nikolai brandt Outpati ent Clinics Bactrim Bactrim Active Nikolai Collado Social History Social Habit Start Date Stop Date Quantity Comments Source Sex Assigned At [facility] Cigarettes smoked 2018-12-07 2018-12-07 [facility] - current (pack per 00:00:00 00:00:00 [facility] Center day) - Reported Cigarette 2018-12-07 2018-12-07 [facility] - pack-years 00:00:00 00:00:00 [facility] Tobacco use and 2018-12-07 2018-12-07 Never used [facility] astrid - exposure 00:00:00 00:00:00 [facility] Alcohol intake 2018-12-07 2018-12-07 Current drinker of [facility] I [facility] - 00:00:00 00:00:00 alcohol (finding) [facility] Tobacco Comment 2018-12-07 2018-12-07 1 pack every 2 days [facility] - 00:00:00 00:00:00 for the last 10 Medical C enter years Alcohol Comment 2018-12-07 2018-12-07 drinks occcasionally JANE Alonso gladis - 00:00:00 00:00:00 run, last drank Medical C enter 12/06/18 Social History 2014-10-30 2014-10-30 [facility] 10:31:19 10:31:19 Tobias Smoking Status Start Date Stop Date Source Current some day smoker 2018-12-07 00:00:00 [facility] Medications Ordered Filled Start Stop [...] HI St n 6-11 06-10 tablet by [facility] - (THERAGRAN) 00:00: 23:59 mouth Medi gurinder tablet 00 :00 daily. [place] ranitidine 2019-0 Yes 150mg Q.5D Take 150 [...] Refill(s) [Ultram] Lisinopril No Notes: Memor ia -30 (Same as: l 14:00: Prinivil, [place] 00 Zestril) Hydrochloro No Notes: Abad charlene thiazide -30 (Same as: l 14:00: Microzide) Tobias 00 With food. pneumococca Yes Notes: Abad charlene l capsular -30 (Same as: l polysacchar 14:00: Pneumovax H [...] As: Coreg) K-Dur 20 No Notes: Memoria - (Same as: l 15:30: K-Dur 20) [place] 00 "Do Not Crush" With food and full glass of water Zofran No Notes: Memoria - (Same as: l 11:34: Zofran) [place] 00 MEDICATION WASTE Product Size: 4 mg Product Wasted: ___ mg Morphine No Notes: Memoria 10-30 (Same l 11:26: as:MORPhin [place] 00 e Sulfate) Dilaudid No 1 mg, 1 Memori a -29 mL, Route: l 11:25: IVP, Drug form: INJ, Q6H, Dosing Weight 81.932, kg, PRN Pain Score 7-10, Priority: STAT, Start date: 10/30/14 6:25:00, Duration: 30 day, Stop date: 11/29/14 6:24:00 Labetalol No Notes: Memori a - (Same as: l 11:23: Normodyne, [place] 00 Trandate) Push over 2 minutes Give bolus over 2-3 minutes. normal No 1,000 mL, Memori a saline 0.9% 10-30 Rate: 100 l IV 1,000 mL 11:23: ml/hr, Herm Infuse over: 10 hr, Route: IV, Dosing [...] Comments Source Heart Rate 2014-11-01 17:00:00 [facility] [place] Temperature Oral (F) 2014-11-01 17:00:00 98.5 F [facility] [place] Systolic (mm Hg) 2014-11-01 17:00:00 Abad rial [place] Diastolic (mm Hg) 2014-11-01 17:00:00 Mem orial [place] Respitory Rate 2014-11-01 17:00:00 Memori al [place] Heart Rate 2014-11-01 13:00:00 [facility] [place] Systolic (mm Hg) 2014-11-01 13:00:00 Abad rial [place] Diastolic (mm Hg) 2014-11-01 13:00:00 Mem orial [place] Respitory Rate 2014-11-01 13:00:00 Memori al [place] Temperature Oral (F) 2014-11-01 13:00:00 98.6 F [facility] [place] Respitory Rate 2014-11-01 09:01:00 Memori al [place] Systolic (mm Hg) 2014-11-01 09:01:00 Abad rial [place]ias Diastolic (mm Hg) 2014-11-01 09:01:00 Mem orial [place] Temperature Oral (F) 2014-11-01 09:01:00 98 F [facility] [place] Heart Rate 2014-11-01 09:01:00 Maxwell Salazarann Weight 2014-10-30 10:23:00 Maxwell Collado BMI Calculated 2014-10-30 10:23:00 Aleks Tilleyann Height 2014-10-30 10:23:00 162.56 cm Maxwell Collado Procedures Procedure Date / Time Performed Performing Clinician Sour e section Maxwell balbuena Plan of Care Planned Activity Planned Date Details Comments Source Future Scheduled 2021-12-[address] [facility] - Test 00:[facility]00 (procedure) [code = Medical Center 25086328] Future Scheduled 2020-03-04 INFLUENZA VACCINE (#1) [facility] [code = INFLUENZA Medical Ce nter VACCINE (#1)] Future Scheduled 2019-06-[address] Carmen kes - Test 00:00:00 measurement Medical Center (procedure) [code = 76367105] Future Scheduled 1979-11-[address] [facility] - Test 00:00:00 malignant neoplasm of [facility] cervix (procedure) [code = 325393155] Future Scheduled [address] DIABETIC EYE EXAM [facility] - Test 00:00:00 [code = DIABETIC EYE Medical Center EXAM] Future Scheduled [address] - Test 00:00:00 examination Medical Center (regime/therapy) [code = 172835433] Future Scheduled 1968 Urine screening for [facility] - Test 00:00:00 protein (procedure) Medical Center [code = 706498954] Future Scheduled [address] [facility] - Test 00:00:00 0-64 YRS (1 of 1 - Medical C enter PPSV23) [code = PNEUMOCOCCAL VACCINE 0-64 YRS (1 of 1 - PPSV23)] Future Scheduled [address] [facility] - Test 00:00:00 [facility] breast (procedure) [code = 136267967] Future Scheduled [address] [facility] - Test 00:00:00 malignant neoplasm of [facility] colon (procedure) [code = 671415058] Encounters Start End Encounter Admission Attending Care Care Encounter Source Date/Time Date/Time Type Type Clinicians Facility Department ID 2017-12-01 2017-12-01 Outpatient Shiela Leyva [id number] 09:06:00 09:06:00 [facility] Medicine Medicine Outpati ent Clinics 2017-11-22 2017-11-22 Outpatient Shiela Leyva [id number] 13:28:00 13:28:[address] [facility] ent [facility] 2017-10-28 2017-10-28 Outpatient Shiela Leyva [id number] 15:25:00 15:25:00 [facility] 2017-10-27 2017-10-27 Outpatient Shiela Leyva [id number] 11:53:00 11:53:00 [facility] 2017-10-25 2017-10-25 Outpatient Shiela Leyva [id number] 13:30:00 13:30:00 [facility] 2014-10-30 2014-11-01 Outpatient NEISHA Frost [facility] [id number] 05:18:00 16:02:00 Aditya 19 Results Test Description [...] NOT 1092) ACCURATE CRE ATININE CLEARANCE IN IA EDICTING GLOMERULAR FILT RATION RATE. ESTIMATED GFR IS NOT APPLICABLE FOR DIALYSIS PATIENTS. CBC W/PLT COUNT & AUTO [id number] 04:21:00 Test Item Value Reference Range Interpretation [...] PERCENT (BEAKER) (test code = 2801) POCT-GLUCOSE [id number] 22:00:00 Test Item Value Reference Range Interpretation Comments POC-GLUCOSE METER 148 mg/dL 70-110 H TESTED AT [facility] (test code = [facility] 1538) [address] POCT-GLUCOSE [id number] 17:06:00 Test Item Value Reference Range Interpretation Comments POC-GLUCOSE METER 224 mg/dL 70-110 H TESTED AT [place] [address] ([facility] (test code = [facility] 1538) [address] POCT-GLUCOSE [id number] 12:39:00 Test Item Value Reference Range Interpretation Comments POC-GLUCOSE METER 214 mg/dL 70-110 H TESTED AT [place] [address] [facility] (test code = [facility] 1538) [address] POCT-GLUCOSE [id number] 08:26:00 Test Item Value Reference Range Interpretation Comments POC-GLUCOSE METER 166 mg/dL 70-110 H TESTED AT [place] [address] [facility] (test code = [facility] 1538) [address] COMPREHENSIVE METABOLIC [id number] 05:17:00 Test Item Value Reference Range Interpretation [...] S NOT APPLICABLE FOR DIALYSIS PATIEN TS. [id number] 05:14:00 Test Item Value Reference Range Interpretation Comments PHOSPHORUS (BEAKER) (test code = 2.9 mg/dL 2.3-4.7 604) [id number] 05:14:00 Test Item Value Reference Range Interpretation Comments MAGNESIUM (BEAKER) (test code = 1.6 mg/dL 1.6-2.6 627) CBC W/PLT COUNT & AUTO [id number] 04:48:00 Test Item Value Reference Range Interpretation [...] PERCENT (BEAKER) (test code = 2801) POCT-GLUCOSE [id number] 22:42:00 Test Item Value Reference Range Interpretation Comments POC-GLUCOSE METER 184 mg/dL 70-110 H TESTED AT [place] [address] [facility] (test code = [place] 1538) [address] POCT-GLUCOSE [id number] 18:51:00 Test Item Value Reference Range Interpretation Comments POC-GLUCOSE METER 220 mg/dL 70-110 H TESTED AT [place] [address] (BEAKER) (test code = GAIL Mccollum [facility] 1538) [address] [id number] 16:07:00 Test Item Value Reference Range Interpretation Comments MAGNESIUM (BEAKER) (test code = 1.8 mg/dL 1.6-2.6 627) [id number] 16:07:00 Test Item Value Reference Range Interpretation Comments POTASSIUM (BEAKER) (test code = 4.1 meq/L 3.5-5.1 379) POCT-GLUCOSE [id number] 15:47:00 Test Item Value Reference Range Interpretation Comments POC-GLUCOSE METER 215 mg/dL 70-110 H TESTED AT [place] [address] (BEAKER) (test code = GAIL Mccollum [place] 1538) [address] [id number] 10:16:00 Test Item Value Reference Range Interpretation Comments MAGNESIUM (BEAKER) (test code = 1.7 mg/dL 1.6-2.6 627) POCT-GLUCOSE [id number] 09:25:00 Test Item Value Reference Range Interpretation Comments POC-GLUCOSE METER 156 mg/dL 70-110 H TESTED AT [facility] 6720 (BEAKER) (test code = GAIL Mccollum [facility] 1538) [address] BASIC METABOLIC [id number] 06:32:00 Test Item Value Reference Range Interpretation [...] PATIEN TS. CBC W/PLT COUNT & AUTO [id number] 05:42:00 Test Item Value Reference Range Interpretation [...] PERCENT (BEAKER) (test code = 2801) POCT-GLUCOSE [id number] 22:05:00 Test Item Value Reference Range Interpretation Comments POC-GLUCOSE METER 255 mg/dL 70-110 H TESTED AT [facility] 6855 (BEAKER) (test code = GAIL BERMUDE[place] 1538) [address] MR, BRAIN, WITHOUT [id number] 19:23:00Reason for exam:->StrokeWhat is the patient's sedation [...] arteries: Normal flow-related enhancement within the bilateral FINISH MILL OPERATOR P1-P2 segments without flow-limiting stenosis. Bilateral functional type supervisor nurse.Additional findings: None. MRA NECK:Common carotid arteries: Unremarkable. [...] MDReport Verified Date/Time: 12/08/2018 19:23:05 Reading Location: [facility] C013V Neuro Reading Room MR, MRA, NECK, WITHOUT IV [id number] 19:23:00FINAL REPORT MR, BRAIN, WITHOUT CONTRAST, MR, [...] arteries: Normal flow-related enhancement within the bilateral FINISH MILL OPERATOR P1-P2 segments without flow-limiting stenosis. Bilateral functional type supervisor nurse.Additional findings: None. MRA NECK:Common carotid arteries: Unremarkable. [...] MDReport Verified Date/Time: 12/08/2018 19:23:05 Reading Location: [address] Neuro Reading Room MR, MRA, BRAIN, WITHOUT [id number] 19:23:00Reason for exam:->StrokeWhat is the patient's sedation [...] arteries: Normal flow-related enhancement within the bilateral FINISH MILL OPERATOR P1-P2 segments without flow-limiting stenosis. Bilateral functional type supervisor nurse.Additional findings: None. MRA NECK:Common carotid arteries: Unremarkable. [...] Holly Verified Date/Time: 12/08/2018 19:23:05 Reading Location: [address] Neuro Reading Room -GLUCOSE [id number] 19:03:00 Test Item Value Reference Range Interpretation Comments POC-GLUCOSE METER 158 mg/dL 70-110 H TESTED AT [facility] (test code = GAIL Mccoll[place] 1533) [address] [id number] 17:33:00 Test Item Value Reference Range Interpretation Comments POTASSIUM (BEAKER) (test code = 4.0 meq/L 3.5-5.1 379) [id number] 17:33:00 Test Item Value Reference Range Interpretation Comments MAGNESIUM (BEAKER) (test code = 2.4 mg/dL 1.6-2.6 627) [id number] 14:55:00 Test Item Value Reference Range Interpretation Comments RPR SCREEN (BEAKER) (test code = Nonreactive Nonreactive 420) [id number] 12:28:00 Test Item Value Reference Range Interpretation Comments POTASSIUM (BEAKER) (test code = 2.9 meq/L 3.5-5.1 L 379) TROPONIN [id number] 10:59:00 Test Item Value Reference Range Interpretation [...] failure, acidosis, acute neurological disease, and persistent tachyarrhythmia.[id number] 10:50:00 Test Item Value Reference Range Interpretation Comments MAGNESIUM (BEAKER) (test code = 1.8 mg/dL 1.6-2.6 627) HEMOGLOBIN [id number] 07:49:00 Test Item Value Reference Range Interpretation Comments HEMOGLOBIN A1C (BEAKER) (test code = 8.1 % 4.3-6.1 H 368) HIV-1 ANTIGEN WITH HIV-1/2 [id number] 06:03:00 Test Item Value Reference Range Interpretation Comments HIV-1 ANTIGEN WITH HIV 1\\T\\2 Nonreactive Nonreactive ANTIBODY (2) (BEAKER) (test code = 2586) [id number] 05:54:00 Test Item Value Reference Range Interpretation Comments POTASSIUM (BEAKER) (test code = 2.8 meq/L 3.5-5.1 L 379) VITAMIN B12 AND [id number] 03:31:00 Test Item Value Reference Range Interpretation Comments VITAMIN B12 (BEAKER) (test code = 1168 pg/mL 213-816 H 774) FOLATE (BEAKER) (test code = 362) > ng/mL >=7.0 TSH/FREE T4 IF [id number] 03:24:00 Test Item Value Reference Range Interpretation Comments THYROID STIMULATING HORMONE 2.19 uIU/mL 0.35-4.94 (BEAKER) (test code = 772) BASIC METABOLIC [id number] 02:06:00 Test Item Value Reference Range Interpretation [...] m DATA TO CALCULA TE ESTIMATED GFR. [id number] 02:04:00 Test Item Value Reference Range Interpretation Comments MAGNESIUM (BEAKER) 1.5 mg/dL 1.6-2.6 L Specimen slightly (test code = 627) hemolyzed FastingLIPID [id number] 02:04:00 Test Item Value Reference Range Interpretation [...] High >=190 FastingCBC W/PLT COUNT & AUTO [id number] 01:36:00 Test Item Value Reference Range Interpretation [...] 0-1 PERCENT (BEAKER) (test code = 2801) [id number] 23:06:00 Test Item Value Reference Range Interpretation Comments ETHANOL (BEAKER) (test code = 400) < mg/dL <=10 TROPONIN [id number] 22:58:00 Test Item Value Reference Range Interpretation [...] acute neurological disease, and persistent tachyarrhythmia.BASIC METABOLIC [id number] 22:56:00 Test Item Value Reference Range Interpretation [...] DATA TO CALCULA TE ESTIMATED GFR. URINALYSIS [id number] 22:41:00 Test Item Value Reference Range Interpretation Comments RBC UA (BEAKER) (test code = 519) 1 /HPF WBC UA (BEAKER) (test code = 520) < /HPF SQUAMOUS EPITHELIAL (BEAKER) (test 7 /HPF code = 516) HYALINE CASTS (BEAKER) (test code = 2 /LPF 514) URINALYSIS WITH MICROSCOPIC IF [id number] 22:36:00 Test Item Value Reference Range Interpretation [...] SOURCE(BEAKER) (test code = 2795) BASIC METABOLIC [id number] 19:01:00 Test Item Value Reference Range Interpretation [...] m DATA TO CALCULA TE ESTIMATED GFR. [id number] 19:01:00 Test Item Value Reference Range Interpretation Comments MAGNESIUM (BEAKER) (test code = 0.7 mg/dL 1.6-2.6 LL 627) [id number] 18:58:00 Test Item Value Reference Range Interpretation Comments PHOSPHORUS (BEAKER) (test code = 3.3 mg/dL 2.3-4.7 604) HEPATIC FUNCTION [id number] 18:58:00 Test Item Value Reference Range Interpretation [...] code = 36 U/L 6-55 347) CHEM [id number] 08:47:61213Yajhwlot HermannCHEM [id number] 10:18:89667 [facility] KlyluvwBWFHSDNHRXPS0167-83-36 10:18:35469Sehmmbdu HermannELECTROLYTES 2014-10-31 10:18:003.5[facility] GadpwyrATFJIPPFTXMW2307-92-10 10:18:007.8[facility]orial TgqrhbfSMPRTFFRWAYP0580-90-19 10:18:0098[facility] RjorzzaUIMWPFLSKHYS1626-99-56 10:18:0072[facility] PtcmcgdUHKVDATJMGQH6623-18-52 10:18:003.0[facility] MPLNTMSVYFKI8848-64-97 10:18:001.0[facility] IfyoukdADQPCIWMAMLD1572-57-37 10:18:0045[facility] AesqoniKMSEEYYCLBUX5646-67-81 10:18:0057[facility] [place] MTYSSQCPIVPJ7506-38-48 10:18:0049[facility] LwqwwjsMHOQVYUDDLSH5391-92-15 10:18:00 0.7[facility]orial ZjvtjlrGQZRYORFMAWV1746-40-33 10:18:51975Poehdjhy [place] QRYSJWECPSCP2449-36-20 10:18:000.9[facility] IjupcchMDDIYGJLPDYC2457-29-58 10:18:0012[facility] EtehqorJXVYOHGBJMYV0604-92-67 10:18:0013[facility] [place] SDBGFDVXISDR4745-41-22 10:18:0030[facility] VnnazyhJWTGWGILKDIJ6267-42-61 10:18:00 6.1[facility]orial DxexfezIDMHLTKIAEDB8230-54-30 10:18:009.5[facility] [place] APPWCLYVMPEX4463-22-27 10:18:003.1[facility] FtetachZFDTDIACDW2986-03-30 10:18:00 0.2[facility] MtgnireFZPHNBOPLA8054-43-76 10:18:002+ *ABN*(10/31/14 5:18 AM) [facility] YbadqqtSNQRIPIGDL1058-93-41 10:18:000.5[facility] HermannHEMATOLOGY 2014-10-31 10:18:002.3[facility] DnqlomoDBMLQRUUDH4590-59-19 10:18:001.2[facility] OuraqwaXIHSAFABCE3238-14-00 10:18:000.3[facility] GgtlejwGONZXJOSBG0784-79-06 10:18:006.1[facility] YcztwdnMWAAAADTHU2314-30-58 10:18:006.1[facility] CDHHAZSRKM6440-82-13 10:18:0015.1[facility] RjehvanCGUKOEHDBK5944-13-80 10:18:00 76.2[facility] OfctcclAPXOOGYNKL8544-32-70 10:18:0033.9[facility] HermannHEMATOLOGY 2014-10-31 10:18:12216.7[facility] ZolojtbFNXGCUDAKQ8527-64-72 10:18:0035.5 Memorial LfwxvjoVFORAMYPBF6028-00-95 10:18:0012.0[facility] HermannHEMATOLOGY 2014-10-31 10:18:008.0[facility] UnzmgvfCARGWBGVCH8746-14-23 10:18:003.39[facility] VllpercLQLONAPXSG4478-18-42 10:18:32233Xkbejskj YxnahaiHRNWWDXEZO6745-03-48 10:18:009.5[facility] OxitxlxIHIELAPUWX2072-68-45 10:18:0012.7[facility] [place] [id number] 10:18:00 Test Item Value Reference Range Interpretation Comments MCH (test code = MCH) 35.5 pg 27.0-31.0 Memorial YphthaiDNLHPD3622-98-00 10:18:0077[facility] VsbhrikCWUQJK4968-14-07 10:18:71358Puyxpopx WwqktlzGSQXCN0603-64-98 10:18:0067[facility] HermannLIPIDS 2014-10-31 10:18:0082[facility] JsodlykRRHMMO9240-03-93 10:18:002.23[facility] TrqiqhkNUVMOL3559-36-56 10:18:0013[facility] HermannCHEM RFIKI1792-91-36 12:48:00 1352[facility] HermannCHEM JGELE7261-37-16 12:48:0050[facility] HermannCHEM PANEL 2014-10-30 12:48:001.0[facility] HermannCHEM OOSSO9994-65-17 12:48:003.6[facility] HermannCHEM SPEPY7085-55-57 12:48:0033Mem[facility] HermannCHEM VKJLO9870-71-94 12:48:006.4[facility] HermannCHEM DBSIT0416-84-44 12:48:0084Mem[facility] HermannCHEM FKAJJ0228-79-96 12:48:0092Mem[facility] HermannCHEM VRWXB1307-49-17 12:48:37387 [facility] HermannCHEM UPNYZ0638-63-02 12:48:0030[facility] HermannCHEM PANEL 2014-10-30 12:48:0046Mem[facility] HermannCHEM BSZLV4689-55-07 12:48:003.1[facility] HermannCHEM BDNNC9443-98-15 12:48:008.3[facility] HermannCHEM UHHAE4891-46-17 12:48:0096[facility] HermannCHEM KPIGU1268-34-04 12:48:62833Zqrhvjsf HermannCHEM EGTNQ2513-24-54 12:48:001.3[facility] HermannCHEM HZEDV6936-42-22 12:48:002.8 [facility] HermannCHEM EGFER4142-01-84 12:48:001.3[facility] HermannCHEM PANEL 2014-10-30 12:48:0023Mem[facility] HermannCHEM IVTFN6853-70-80 12:48:0010.1[facility] QcuhwlfKHHDETGNBE4927-96-54 12:48:001+ *ABN*(10/30/14 7:48 AM)[facility] PEFYLCIERY9695-57-72 12:48:005.5[facility] NkaurxrKPQMKHWGVY9293-64-76 12:48:000.7 Memorial YnodrsrSZSOCSZHRW2929-70-34 12:48:001.4[facility] HermannHEMATOLOGY 2014-10-30 12:48:000.1[facility] ZdqrbmyWPMKAURXQZ9517-20-11 12:48:000.1[facility] QidxvhgARBWNZODKL7018-19-87 12:48:001.6[facility] PgyjygaEIKPNNLPFP9650-45-98 12:48:000.5[facility] HybsaaaFNWQKIZBVH4244-12-12 12:48:006.7[facility] VYLLJHBESP7861-10-75 12:48:0020.3[facility] GnxfobyITZKRXBHAQ6234-76-41 12:48:00 70.9[facility] DdqdewlVPYDHGUPVO9040-10-91 12:48:0012.9[facility] HermannHEMATOLOGY 2014-10-30 12:48:0012.8[facility] DbpueuhGMOKCMOJBA8315-79-30 12:48:003.56[facility] QpnsvbuSYZXAYYZNH1263-67-63 12:48:008.3[facility] JcyblooCAENXIANVA2054-59-20 12:48:17983Ncdtrhie TisrrcaZCZBGIIABO7526-06-11 12:48:81008.3[facility] WHPQPCNWZD0328-87-11 12:48:0036.8[facility] TuphwyaGLVNQAKKNO7614-98-08 12:48:00 34.9[facility] VqfzdvbJSOTOTWVJR6647-70-00 12:48:00 Test Item Value Reference Range Interpretation Comments MCH (test code = MCH) 36.1 pg 27.0-31.0 [facility] BnlozayWCISTBXRKS8650-70-58 12:48:007.8[facility] Tobias
[2020-07-26 17:59] LABS: Basophils % 0.6 % (0-1.3); Hematocrit 42.7 % (36.0-45.0); Lymphocytes % 17.5 % (15.3-44.8); RBC Red Blood Cell Count 4.59 M/uL (3.86-4.86)
[2020-07-26] MEDS ORDERED: PROMETHAZINE INJ 25 MG/ML AMP ONE (18:14)
[2020-07-26] MEDS ORDERED: NA CHLORIDE 0.9% 1,000 ML ONE ×2 (18:14→20:11)
[2020-07-26 18:18] LABS: Albumin 4.4 g/dL (3.4-5.0); Bilirubin Direct 0.1 mg/dL (0-0.2); Bilirubin Total 0.5 mg/dL (0.2-1.0); Protein, Total 8.9 g/dL (6.4-8.2)
--- NOTE | 2020-07-26 18:50 | RAD REPORT ---
EXAM DESCRIPTION: CT - Head Brain Wo Cont - 07/26/2020 6:40 pm CLINICAL HISTORY: Headache COMPARISON: May 2020 TECHNIQUE: Computed axial tomography of the head was obtained. IV contrast was not requested. All CT scans are performed using dose optimization technique as appropriate and may include automated exposure control or mA/KV adjustment according to patient size. FINDINGS: An intracranial bleed is not seen . The ventricles are normal in caliber. No extra-axial fluid collection is noted. Mild to moderate low-density areas within periventricular, deep and subcortical white matter likely r epresent ischemic changes secondary to small vessel disease. Fluid within the sinuses/ mastoids is not seen. IMPRESSION: No acute intracranial abnormality is seen. If patient's symptoms persist MRI of the bra in would be recommended.
--- NOTE | 2020-07-26 19:01 | RAD REPORT ---
EXAM DESCRIPTION: CT - Abdomen Pelvis W Contrast - 07/26/2020 6:49 pm CLINICAL HISTORY: Abdominal pain COMPARISON: 2019 TECHNIQUE: Computed axial tomography of the abdomen pelvis was obtained. 100 cc Isovue-300 was admin istered intravenously. Oral contrast was not requested which limits evaluation of bowel. All CT scans are performed using dose optimization technique as appropriate and may include automated exposure control or mA/KV adjustment according to patient size. FINDINGS: The liver, spleen, pancreas, adrenal and kidneys appear unremarkable. Diverticulosis without evidence of diverticulitis. Spondylosis involves lumbar spine resulting in spinal stenosis IMPRESSION: No acute abnormality is displayed.
[2020-07-26 19:35] LABS: SARS-COV-2 RT PCR NEGATIVE (NEGATIVE)
--- NOTE | 2020-07-26 19:40 | RAD REPORT ---
EXAM DESCRIPTION: Jassi Single View07/26/2020 7:01 pm CLINICAL HISTORY: cough COMPARISON: 2018 FINDINGS: The lungs appear clear of acute infiltrate. The heart is normal size IMPRESSION: No acute abnormalities displayed
[2020-07-26] MEDS ORDERED: ALBUTEROL INHALER 60 PUFF/8 GM IH ONE (20:11)
[2020-07-26] MEDS ORDERED: ONDANSETRON 4 MG/2 ML VIAL ONE (20:11)
[2020-07-26] MEDS ORDERED: KCL 20 MEQ/100 mL IVPB 20 MEQ/100 ML BAG IV ONE (20:11)
[2020-07-26] MEDS ORDERED: FAMOTIDINE 20 MG/2 ML VIAL IV ONE (20:11)
[2020-07-26] MEDS ORDERED: MORPHINE 4 MG/ML SYR ONE (20:11)
[2020-07-26 21:04] LABS: Urine Blood TRACE (NEG); Urine Glucose TRACE (NEG); Urine Protein 2+ (NEG); Urine pH 7.5 (5.0-7.0)
[2020-07-26 21:28] LABS: NT PRO-BNP 510 pg/mL (<125); Troponin (Emerg Dept Use Only) < 0.02 ng/mL (0.0-0.045)
[2020-07-26 21:29] LABS: Protime INR 1.06
--- NOTE | 2020-07-26 22:46 | ER ---
Nurse's Notes [facility] Name: Billie Botello Age: 59 yrs Sex: Female : 1960 Arrival Date: 07/26/2020 Time: 17:30 Bed 24 Private MD: Diagnosis: Lower abdominal pain, unspecified;Nausea with vomiting, unspecified;Dyspnea Presentation: 07/26 17:30 Chief complaint: EMS states: pt daughter called pt c/o of nausea, vomiting, stomach zb pain and headache. mild tachypneic . denies chest pain or difficulty breathing. Coronavirus screen: Client presents with at least one sign or symptom that may indicate coronavirus-19. Standard/surgical mask placed on the client. Provider contacted for isolation considerations. Ebola Screen: No symptoms or risks identified at this time. Initial Sepsis Screen: Does the patient meet any 2 criteria? No. Patient's initial sepsis screen is negative. Does the patient have a suspected source of infection? No. Patient's initial sepsis screen is negative. Risk Assessment: Do you want to hurt yourself or someone else? Patient reports no desire to harm self or others. Onset of symptoms was July 25, 2019. 17:30 Acuity: NIKA 3 zb 17:30 Method Of Arrival: EMS: [facility] zb Triage Assessment: 17:49 General: Appears in no apparent distress. uncomfortable, Behavior is cooperative, zb anxious, Reports feeling ill for 1-2 days. Pain: Complains of pain in top of head and left lower quadrant Pain does not radiate. Pain currently is 8 out of 10 on a pain scale. Quality of pain is described as aching, Pain began 1 day ago. Is continuous. EENT: No signs and/or symptoms were reported regarding the EENT system. Neuro: Level of Consciousness is awake, alert, obeys commands, Oriented to person, place, time, situation. Cardiovascular: Capillary refill < 3 seconds in bilateral fingers Patient's skin is warm and dry. Respiratory: Airway is patent Respiratory effort is even, unlabored, Respiratory pattern is tachypnea Breath sounds are clear bilaterally. GI: Abdomen is round non-distended, Bowel sounds present X 4 quads. Abdomen is tender to palpation in left lower quadrant. GI: Reports nausea, vomiting, Patient currently denies diarrhea. : No signs and/or symptoms were reported regarding the genitourinary system. Derm: Skin is intact, is healthy with good turgor, Skin is dry, Skin is pale, Skin temperature is warm. Musculoskeletal: Circulation, motion, and sensation intact. Capillary refill < 3 seconds, in bilateral fingers. Range of motion: intact in all extremities. Historical: - Allergies: 17:49 Bactrim; zb 17:49 Sulfa (Sulfonamide Antibiotics); zb 17:49 Trazodone; zb 17:49 TRIMETHOPRIM; zb - Home Meds: 17:49 amlodipine oral [Active]; Aspirin Oral [Active]; carvedilol oral oral [Active]; zb citalopram oral [Active]; fenofibrate oral oral [Active]; Hydrochlorothiazide Oral [Active]; Methocarbamol Oral [Active]; Omeprazole Oral [Active]; - PMHx: 17:49 Diabetes - NIDDM; High Cholesterol; Hypertension; Pancreatitis; zb - PSHx: 17:49 Appendectomy; zb - Immunization history:: Adult Immunizations up to date. - Social history:: Smoking status: Patient reports the use of cigarette tobacco products, smokes one-half pack cigarettes per day. - Family history:: not pertinent. - Hospitalizations: : No recent hospitalization is reported. Screenin:52 Abuse screen: Denies threats or abuse. Denies injuries from another. Nutritional zb screening: No deficits noted. Tuberculosis screening: No symptoms or risk factors identified. Fall Risk None identified. Assessment: 17:50 Reassessment: see triage noted. zb 18:50 Reassessment: patient c/o of nausea. no vomiting. able to ambulated to bedside commode. zb General:. Pain: Complains of pain in left lower quadrant and top of head. 19:50 Reassessment: Patient appears in no apparent distress at this time. Patient and/or zb family updated on plan of care and expected duration. Pain level reassessed. Patient is alert, oriented x 3, equal unlabored respirations, skin warm/dry/pink. light dimmed. IV fluid infusing. 20:00 Reassessment: updated patient daughter on patient plan of care. Permission obtained zb from patient. 20:10 Reassessment: patient o2 levels dipped in to 88 on RA placed on 2L of o2. zb 20:30 Reassessment: Patient appears in no apparent distress at this time. Patient and/or zb family updated on plan of care and expected duration. Pain level reassessed. Patient is alert, oriented x 3, equal unlabored respirations, skin warm/dry/pink. patient states she feels a lot better. headache had greatly reduced. 21:20 Reassessment: notified provider of D-dimer of 7.47. zb 21:34 Reassessment: Patient appears in no apparent distress at this time. Patient and/or zb family updated on plan of care and expected duration. Pain level reassessed. Patient is alert, oriented x 3, equal unlabored respirations, skin warm/dry/pink. light dimmed. IV fluids infusing. patient appears to be asleep. 22:30 Reassessment: Patient appears in no apparent distress at this time. Patient and/or zb family updated on plan of care and expected duration. Pain level reassessed. Patient is alert, oriented x 3, equal unlabored respirations, skin warm/dry/pink. patient resting. no c/o at this time. 23:33 Reassessment: Patient appears in no apparent distress at this time. Patient and/or zb family updated on plan of care and expected duration. Pain level reassessed. Patient is alert, oriented x 3, equal unlabored respirations, skin warm/dry/pink. pt resting no c/o at this time. light dimmed. Vital Signs: 17:30 BP 161 / 105; Pulse 89; Resp 23; Temp 98.5; Pulse Ox 99% on R/A; Weight 96.62 kg; zb Height 5 ft. 4 in. (162.56 cm); Pain 8/10; 19:30 BP 179 / 95; Pulse 94; Resp 22; Pulse Ox 98% on R/A; zb 20:00 BP 170 / 85; Pulse 85; Resp 18; Pulse Ox 96% 2 lpm ; zb 21:00 BP 117 / 75; Pulse 78; Resp 18; Pulse Ox 98% 2 lpm ; zb 22:00 BP 129 / 81; Pulse 79; Resp 22; Pulse Ox 96% on 1 lpm NC; dh4 23:00 BP 114 / 94; Pulse 82; Resp 22; Pulse Ox 95% on 1 lpm NC; zb 23:45 BP 128 / 84; Pulse 95; Resp 18; Pulse Ox 95% 1 lpm ; zb 17:30 Body Mass Index 36.56 (96.62 kg, 162.56 cm) zb ED Course: 17:30 Patient arrived in ED. zb 17:31 Hola Rodriguez MD is Attending Physician. rn 17:46 Triage completed. zb 17:52 Patient has correct armband on for positive identification. Bed in low position. Pulse zb ox on. NIBP on. Door closed. Noise minimized. Warm blanket given. 17:52 Arm band placed on right wrist. zb 17:56 Yadi Rajput, RN is Primary Nurse. zb 18:09 Inserted saline lock: 20 gauge in right forearm, using aseptic technique. Blood dh4 collected. 18:40 CT Head Brain wo Cont In Process Unspecified. EDMS 18:49 CT Abd/Pelvis - IV Contrast Only In Process Unspecified. EDMS 19:00 XRAY Chest (1 view) In Process Unspecified. EDMS 19:02 Attending Physician role handed off by Hola Rodriguez MD mh7 19:02 Jeffery García MD is Attending Physician. mh7 21:01 Troponin (emerg Dept Use Only) Sent. zb 22:34 US Extremity Venous W Compression [place] In Process Unspecified. EDMS 22:45 Uvaldo Rodriguez MD is Hospitalizing Provider. mh7 22:57 Ultrasound completed. Patient tolerated well. Notified ED Physician jose. sg3 23:43 No provider procedures requiring assistance completed. Patient admitted, IV remains in zb place. Administered Medications: 18:03 Drug: Phenergan 12.5 mg Route: IVP; Site: right forearm; zb 18:45 Follow up: Response: No adverse reaction; Nausea unchanged zb 18:03 Drug: NS 0.9% 1000 ml Route: IV; Rate: 1000 ml; Site: right forearm; zb 18:45 Follow up: Response: No adverse reaction; IV Status: Completed infusion; IV Intake: zb 1000ml 20:07 Drug: Pepcid 20 mg Route: IVP; Site: right forearm; zb 21:00 Follow up: Response: No adverse reaction; Nausea is decreased zb 20:07 Drug: Albuterol HFA Inhaler 2 puffs Route: Inhalation; zb 20:30 Follow up: Response: No adverse reaction zb 20:07 Drug: Potassium Chloride 20 mEq Route: IV; Rate: per protocol; Site: left forearm; zb 22:00 Follow up: Response: No adverse reaction; IV Status: Completed infusion; IV Intake: zb 1000ml 20:07 Drug: NS 0.9% 1000 ml Route: IV; Rate: 1 bolus; Site: right forearm; zb 21:30 Follow up: Response: No adverse reaction; IV Status: Completed infusion; IV Intake: zb 1000ml 20:08 Drug: morphine 4 mg Route: IVP; Site: right forearm; zb 20:30 Follow up: Response: No adverse reaction; Pain is decreased; RASS: Alert and Calm (0) zb 20:08 Drug: Zofran (Ondansetron) 4 mg Route: IVP; Site: right forearm; zb 21:00 Follow up: Response: No adverse reaction; Nausea is decreased zb Intake: 18:45 IV: 1000ml; Total: 1000ml. zb 21:30 IV: 1000ml; Total: 2000ml. zb 22:00 IV: 1000ml; Total: 3000ml. zb Outcome: 22:46 Decision to Hospitalize by Provider. [facility] 23:43 Admitted to Med/surg accompanied by tech, via wheelchair, room 225, with chart, Report zb called to TEE Garcia 23:43 Condition: stable 23:43 Instructed on the need for admit, Demonstrated understanding of instructions. 07/27 00:08 Patient left the ED. zb Signatures: Dispatcher [employer] EDMS Hola Rodriguez MD MD rn Godinez, Sarah 3 Florencio Greer [facility] Jeffery García MD MD 7 Yadi Rajput RN RN zb Corrections: (The following items were deleted from the chart) 07/26 23:45 22:00 BP 114 / 94; Pulse 82bpm; Resp 22bpm; Pulse Ox 95% 1 lpm Nasal Cannula; dh4 zb
--- NOTE | 2020-07-26 22:47 | EDPHYS ---
Physician Documentation [facility] Name: Billie Botello Age: 59 yrs Sex: Female : 1960 Arrival Date: 07/26/2020 Time: 17:30 Bed 24 Private MD: ED Physician Jeffery García HPI: 07/26 17:51 This 59 yrs old Female presents to ER via EMS with complaints of rn Nausea/Vomiting. 17:51 The patient presents to the emergency department with nausea, vomiting, abdominal pain, rn of the suprapubic area, right lower quadrant and left lower quadrant, described as achy. Onset: The symptoms/episode began/occurred this morning. Possible causes: unknown. The symptoms are aggravated by nothing. The symptoms are alleviated by nothing. Associated signs and symptoms: Pertinent positives: abdominal pain, nausea, vomiting, Pertinent negatives: anorexia, fever, GI bleeding. Severity of symptoms: At their worst the symptoms were moderate in the emergency department the symptoms are unchanged. The patient has experienced similar episodes in the past. The patient has not recently seen a physician. Reports lower abd pain that began 2 days ago assoc with nausea/vomiting, headache began today, no fever, assoc with congestion and fatigue. Also reports sense of taste and smell not very good lately. . Historical: - Allergies: 17:49 Bactrim; zb 17:49 Sulfa (Sulfonamide Antibiotics); zb 17:49 Trazodone; zb 17:49 TRIMETHOPRIM; zb - Home Meds: 17:49 amlodipine oral [Active]; Aspirin Oral [Active]; carvedilol oral oral [Active]; zb citalopram oral [Active]; fenofibrate oral oral [Active]; Hydrochlorothiazide Oral [Active]; Methocarbamol Oral [Active]; Omeprazole Oral [Active]; - PMHx: 17:49 Diabetes - NIDDM; High Cholesterol; Hypertension; Pancreatitis; zb - PSHx: 17:49 Appendectomy; zb - Immunization history:: Adult Immunizations up to date. - Social history:: Smoking status: Patient reports the use of cigarette tobacco products, smokes one-half pack cigarettes per day. - Family history:: not pertinent. - Hospitalizations: : No recent hospitalization is reported. ROS: 17:51 Constitutional: Negative for fever, chills, and weight loss, Eyes: Negative for injury, rn pain, redness, and discharge, Neck: Negative for injury, pain, and swelling, Cardiovascular: Negative for chest pain, palpitations, and edema, Respiratory: Negative for shortness of breath, wheezing, and pleuritic chest pain, Abdomen/GI: + lower abd pain and nausea/vomiting Back: Negative for injury and pain, MS/Extremity: Negative for injury and deformity, Skin: Negative for injury, rash, and discoloration, Neuro: Negative for numbness, tingling, and seizure. Exam: 17:51 Constitutional: This is a well developed, well nourished patient who is awake, alert, rn sitting upright, holding emesis bag. Head/Face: Normocephalic, atraumatic. ENT: dry MM Neck: Trachea midline, no masses palpated, and no cervical lymphadenopathy. Supple, full range of motion without nuchal rigidity, or vertebral point tenderness. No Meningismus. Cardiovascular: Regular rate and rhythm. No pulse deficits. Respiratory: Mild tachypnea Abdomen/GI: soft, mild bilateral lower quadrant tenderness, no rebound Skin: Warm, dry MS/ Extremity: Pulses equal, no cyanosis Neuro: Awake and alert, GCS 15, oriented to person, place, time, and situation. Cranial nerves II-XII grossly intact. Motor strength 5/5 in all extremities. Sensory grossly intact. Cerebellar exam normal. Vital Signs: 17:30 BP 161 / 105; Pulse 89; Resp 23; Temp 98.5; Pulse Ox 99% on R/A; Weight 96.62 kg; zb Height 5 ft. 4 in. (162.56 cm); Pain 8/10; 19:30 BP 179 / 95; Pulse 94; Resp 22; Pulse Ox 98% on R/A; zb 20:00 BP 170 / 85; Pulse 85; Resp 18; Pulse Ox 96% 2 lpm ; zb 21:00 BP 117 / 75; Pulse 78; Resp 18; Pulse Ox 98% 2 lpm ; zb 22:00 BP 129 / 81; Pulse 79; Resp 22; Pulse Ox 96% on 1 lpm NC; dh4 23:00 BP 114 / 94; Pulse 82; Resp 22; Pulse Ox 95% on 1 lpm NC; zb 23:45 BP 128 / 84; Pulse 95; Resp 18; Pulse Ox 95% 1 lpm ; zb 17:30 Body Mass Index 36.56 (96.62 kg, 162.56 cm) zb MDM: 17:31 Patient medically screened. rn 22:44 Differential diagnosis: Nonspecific abd pain, gastritis, pancreatitis, diverticulitis, [facility] viral gastroenteritis, gastroenteritis, Pneumonia, Dyspnea. Data reviewed: vital signs, nurses notes, lab test result(s), cardiac enzymes, CBC, electrolytes, urinalysis, EKG, radiologic studies, CT scan, plain films. Data interpreted: Pulse oximetry: on room air is 98 %. Interpretation: normal. Counseling: I had a detailed discussion with the patient and/or guardian regarding: the historical points, exam findings, and any diagnostic results supporting the discharge/admit diagnosis, lab results, radiology results, the need for further work-up and treatment in the hospital. Response to treatment: the patient's symptoms have mildly improved after treatment. 07/26 17:32 Order name: Basic Metabolic Panel; Complete Time: 18:34 07/26 17:32 Order name: CBC with Diff; Complete Time: 18:12 07/26 17:32 Order name: Hepatic Function; Complete Time: 18:34 07/26 17:32 Order name: Lipase; Complete Time: 18:34 07/26 19:17 Order name: Troponin (emerg Dept Use Only) [facility] 07/26 19:17 Order name: PROBNP [facility] 07/26 19:17 Order name: Protime (+inr); Complete Time: 21:38 [facility] 07/26 19:17 Order name: Ptt, Activated; Complete Time: 21:38 [facility] 07/26 19:17 Order name: Lactate; Complete Time: 21:38 [facility] 07/26 19:17 Order name: Procalcitonin; Complete Time: 22:31 [facility] 07/26 19:17 Order name: Influenza Screen (a \T\ B) [facility] 07/26 19:17 Order name: COVID-19 [facility] 07/26 17:34 Order name: CT Abd/Pelvis - IV Contrast Only; Complete Time: 19:03 07/26 17:34 Order name: CT Head Brain wo Cont; Complete Time: 18:57 07/26 17:56 Order name: XRAY Chest (1 view); Complete Time: 19:51 07/26 19:17 Order name: Troponin (Emerg Dept Use Only); Complete Time: 21:38 EDMS 07/26 19:18 Order name: NT PRO-BNP; Complete Time: 21:38 EDMS 07/26 19:23 Order name: D-Dimer [facility] 07/26 19:23 Order name: D-Dimer; Complete Time: 21:38 EDMS 07/26 19:35 Order name: COVID-19/FLU A+B; Complete Time: 19:39 EDCO 07/26 21:01 Order name: Urine Dipstick--Ancillary (enter results) 3 07/26 21:02 Order name: Urine Dipstick-Ancillary; Complete Time: 21:11 EDMS 07/26 21:38 Order name: US Extremity Venous W Compression Chacho [facility] 07/26 17:32 Order name: IV Saline Lock; Complete Time: 17:56 rn 07/26 17:32 Order name: Labs collected and sent; Complete Time: 17:56 rn 07/26 19:17 Order name: EKG - Nurse/Tech; Complete Time: 21:01 [facility] 07/26 19:17 Order name: Urine Dipstick-Ancillary (obtain specimen); Complete Time: 21:01 [facility] Administered Medications: 18:03 Drug: Phenergan 12.5 mg Route: IVP; Site: right forearm; zb 18:45 Follow up: Response: No adverse reaction; Nausea unchanged zb 18:03 Drug: NS 0.9% 1000 ml Route: IV; Rate: 1000 ml; Site: right forearm; zb 18:45 Follow up: Response: No adverse reaction; IV Status: Completed infusion; IV Intake: zb 1000ml 20:07 Drug: Pepcid 20 mg Route: IVP; Site: right forearm; zb 21:00 Follow up: Response: No adverse reaction; Nausea is decreased zb 20:07 Drug: Albuterol HFA Inhaler 2 puffs Route: Inhalation; zb 20:30 Follow up: Response: No adverse reaction zb 20:07 Drug: Potassium Chloride 20 mEq Route: IV; Rate: per protocol; Site: left forearm; zb 22:00 Follow up: Response: No adverse reaction; IV Status: Completed infusion; IV Intake: zb 1000ml 20:07 Drug: NS 0.9% 1000 ml Route: IV; Rate: 1 bolus; Site: right forearm; zb 21:30 Follow up: Response: No adverse reaction; IV Status: Completed infusion; IV Intake: zb 1000ml 20:08 Drug: morphine 4 mg Route: IVP; Site: right forearm; zb 20:30 Follow up: Response: No adverse reaction; Pain is decreased; RASS: Alert and Calm (0) zb 20:08 Drug: Zofran (Ondansetron) 4 mg Route: IVP; Site: right forearm; zb 21:00 Follow up: Response: No adverse reaction; Nausea is decreased zb Disposition: 07/26/20 22:46 Hospitalization ordered by Uvaldo Rodriguez for Observation. Preliminary diagnosis are Lower abdominal pain, unspecified, Nausea with vomiting, unspecified, Dyspnea. - Bed requested for Telemetry/MedSurg (observation). - Status is Observation. zb - Condition is Stable. - Problem is new. - Symptoms have improved. Signatures: Dispatcher [employer] EDMS Hola Rodriguez MD MD rn Attema, Lee, CERAMICS INSTRUCTOR-C CERAMICS INSTRUCTOR-[facility] Nila Abarca RN RN Jeffery García MD MD 7 Yadi Rajput RN RN zb Corrections: (The following items were deleted from the chart) 18:41 17:33 CORONAVIRUS+MR.LAB.BRZ ordered. EDMS EDMS 18:41 17:33 Influenza Screen (A \T\ B)+BA.LAB.BRZ ordered. EDCO EDMS 23:20 22:46 Hospitalization Ordered by Uvaldo Rodriguez MD for Observation. Preliminary cg diagnosis is Lower abdominal pain, unspecified; Nausea with vomiting, unspecified; Dyspnea. Bed requested for Telemetry/MedSurg (observation). Status is Observation. Condition is Stable. Problem is new. Symptoms have improved. mh7 07/27 00:08 07/26 23:20 07/26/2020 22:46 Hospitalization Ordered by Uvaldo Rodriguez MD for zb Observation. Preliminary diagnosis is Lower abdominal pain, unspecified; Nausea with vomiting, unspecified; Dyspnea. Bed requested for Telemetry/MedSurg (observation). Status is Observation. Condition is Stable. Problem is new. Symptoms have improved.
--- NOTE | 2020-07-26 23:51 | P.HP ---
Certification for Inpatient Patient admitted to: Observation With expected LOS: <2 Midnights Patient will require the following post-hospital care: None Practitioner: I am a practitioner with admitting privileges, knowledge of patient current condition, hospital course, and medical plan of care. Services: Services provided to patient in accordance with Admission requirements found in Title 42 Section 412.3 of the Code of Federal Regulations <Branden Gould - Last Filed: 07/26/20 23:47> Patient History Date of Service: 07/26/20 Reason for admission: Nausea/vomiting, rule out PE History of Present Illness: 59-year-old female with history of diabetes mellitus type 2, hypertension, hyperlipidemia presents the emergency department for nausea, vomiting, abdominal pain. Patient reports that she has had the symptoms last approximately 24 hr, also admits to some constipation. Patient noted to be mildly short of breath as well. Lab significant for white blood cell count 11.2 potassium 3.0 sodium 134, patient does appear dry. D-dimer elevated at 747. BNP 510. Negative for UTI. Patient had CT abdomen pelvis performed with no acute findings CT head, chest x-ray without acute findings. Patient had surgery to her left ankle approximately 1 month ago, now with some shortness of breath and mildly elevated D-dimer DVT study lower extremity negative, ED provider would like to scan chest with contrast but was unable to as she has just completed the contrast study of the abdomen. ED provider wishes to admit patient under observation for rehydration, control of nausea and vomiting, PE rule out. - Past Medical/Surgical History Diabetic: Yes -: HTN -: Hyperlipidemia -: GERD -: Tobacco abuse -: Diabetes mellitus type 2 in non insulin-dependent -: renal insufficiency -: hypercholesterolemia -: -: R wrist Sx (metal plate) -: rectal polyps removed Psychosocial/ Personal History: The patient is single. She has 1 child. She works at [employer] - Family History Sister -: Lung disease, Diabetes Mother -: Heart disease, Cancer Notes: lymphoma Father -: Heart disease - Social History Smoking Status: Current every day smoker Counseled patient to stop smoking for: less than 10 minutes Smoking therapy provided: No Alcohol use: Yes CD- Drugs: Yes Caffeine use: No Place of Residence: Home <Branden Gould - Last Filed: 07/26/20 23:47> Date of Service: 07/27/20 <Uvaldo Rodriguez - Last Filed: 07/27/20 20:35> Allergies sulfamethoxazole [From Bactrim] Allergy (Intermediate, Verified 05/07/20 21:54) Rash trimethoprim [From Bactrim] Allergy (Intermediate, Verified 05/07/20 21:54) Rash Sulfa (Sulfonamide Antibiotics) Allergy (Verified 05/07/20 21:54) Unknown trazodone Allergy (Verified 05/07/20 21:54) Itching Home Medications: carvediloL [Coreg*] 12.5 mg PO BID #60 tab 11/24/15 Aspirin [Aspirin EC 81 MG] 81 mg PO DAILY #90 tablet. 01/01/18 Atorvastatin Calcium [Lipitor] 40 mg PO BEDTIME #30 tab 02/20/19 Amlodipine [Norvasc*] 10 mg PO DAILY 06/08/20 Citalopram [Celexa*] 20 mg PO DAILY 06/08/20 Doxepin HCl [Silenor] 1 tab PO DAILY 06/08/20 Fenofibrate [Tricor*] 1 tab PO DAILY 06/08/20 Hydroxyzine HCl [Atarax] 25 mg PO DAILY 06/08/20 Insulin Detemir [Levemir] 30 units SQ DAILY 06/08/20 Methocarbamol [Robaxin-750] 1 tab PO BIDP PRN 06/08/20 Omeprazole [Prilosec] 1 tab PO DAILY 06/08/20 Potassium Gluconate 550 mg PO DAILY 06/08/20 Tramadol HCl [Ultram] 50 mg PO Q8HR PRN #10 tablet 06/12/20 Review of Systems 10-point ROS is otherwise unremarkable General: Malaise Gastrointestinal: Nausea, Vomiting <Branden Gould - Last Filed: 07/26/20 23:47> Physical Examination - Physical Exam General: Alert, In no apparent distress HEENT: Atraumatic, PERRLA, Mucous membr. moist/pink Neck: Supple, 2+ carotid pulse no bruit Respiratory: Clear to auscultation bilaterally, Normal air movement Cardiovascular: Regular rate/rhythm, Normal S1 S2 Capillary refill: <2 Seconds Gastrointestinal: Normal bowel sounds, No tenderness, No masses, No rebound, No guarding Musculoskeletal: No erythema, No tenderness Integumentary: No rashes Neurological: Normal gait, Normal speech, Normal strength at 5/5 x4 extr, Normal tone, Normal affect - Studies Laboratory Data (last 24 hrs) 07/26/20 20:58: PT 12.5, INR 1.06, APTT 26.9 07/26/20 17:43: WBC 11.2 H, Hgb 14.3, Hct 42.7, Plt Count 398 07/26/20 17:43: Sodium 134 L, Potassium 3.0 L, BUN 13, Creatinine 0.97, Glucose 180 H, Total Bilirubin 0.5, AST 18, ALT 22, Alkaline Phosphatase 89, Lipase 96 <Branden Gould - Last Filed: 07/26/20 23:47> - Studies Laboratory Data (last 24 hrs) 07/27/20 05:24: Sodium 138, Potassium 3.2 L, BUN 8, Creatinine 0.78, Glucose 93, Magnesium 1.8 07/27/20 05:24: WBC 7.9 D, Hgb 12.8, Hct 38.2, Plt Count 332 07/26/20 20:58: PT 12.5, INR 1.06, APTT 26.9 <Uvaldo Rodriguez - Last Filed: 07/27/20 20:35> Assessment and Plan - Plan Assessment Elevated D-dimer rule out PE Nausea, vomiting, abdominal pain Diabetes mellitus type 2 Hypertension Plan Elevated D-dimer rule out PE: Patient was some mild shortness of breath, did have IV contrast CT abdomen during emergency department stay. Will need to perform either V/Q or CT PE protocol tomorrow. Patient has risk factors of smoking, recent surgery/immobilization. DVT prophylaxis with Lovenox 40 mg subcutaneous once daily. Nausea, vomiting, abdominal pain: Full liquid diet, advance as tolerated. Continue with daily Protonix, p.r.n. Zofran. CT negative for acute findings, repeat CBC in the morning. Diabetes mellitus type 2: A.c. HS Accu-Cheks, sliding scale insulin therapy. Hypertension: Obtain and continue home medications as appropriate. Discharge Plan: Home Plan to discharge in: 24 Hours - Advance Directives Does patient have a Living Will: No Does patient have a Durable POA for Healthcare: No - Code Status/Comfort Care Code Status Assessed: Yes (Full code) Critical Care: No Time Spent Managing Pts Care (In Minutes): 55 <Branden Gould - Last Filed: 07/26/20 23:47> - Plan Agree with plan of care as noted above by Branden Gould. elevated D-dimer, SOB, received IV contrast, will need to wait prior to repeat IV contrast <Uvaldo Rodriguez - Last Filed: 07/27/20 20:35>
[2020-07-27 00:20] VITALS: BMI 31.8
[2020-07-27] MEDS ORDERED: SODIUM CHLORIDE 0.9% 10ML INJ IV PRN (00:32)
[2020-07-27] MEDS ORDERED: ALBUTEROL INHALER 60 PUFF/8 GM IH PRN (00:32)
[2020-07-27] MEDS: NA CHLORIDE 0.9% 1,000 ML IV SCH ×3 (01:01→20:32)
[2020-07-27] MEDS: ONDANSETRON 4 MG/2 ML VIAL IV PRN ×3 (01:01→16:57)
[2020-07-27] MEDS: ACETAMINOPHEN 500 MG TAB PO PRN ×3 (05:32→16:58)
[2020-07-27 05:55] LABS: Absolute Lymphocytes (CBC) 2.5 K/uL (0.7-4.9); Basophils % 0.3 % (0-1.3); Hematocrit 38.2 % (36.0-45.0); Lymphocytes % 31.2 % (15.3-44.8); MPV 8.8 fL (7.6-11.3); RBC Red Blood Cell Count 4.07 M/uL (3.86-4.86)
[2020-07-27 06:17] LABS: Magnesium 1.8 mg/dL (1.8-2.4); Potassium 3.2 mmol/L (3.5-5.1)
[2020-07-27] MEDS ORDERED: MAGNESIUM SULFATE 1 gm IVPB 1 GM/100 ML BAG IV ONE (06:21)
[2020-07-27] MEDS: INSULIN -REGULAR HUMAN 50 UNIT/0.5 ML ML SQ SCH ×4 (07:30→22:28)
--- NOTE | 2020-07-27 07:52 | RAD REPORT ---
EXAM DESCRIPTION: US - Extrem Venous W Compress [place] - 07/26/2020 10:34 pm CLINICAL HISTORY: PAIN, both lower extremities COMPARISON: None. TECHNIQUE: Real-time sonographic evaluation of the bilateral lower extremity common femoral, superfi cial femoral, popliteal and posterior tibial veins was performed. FINDINGS: Normal compressibility, flow augmentation, phasic flow and spontaneous flow are identified in the left and right lower extremity common femoral, superficial femoral, popliteal and posterior t ibial veins. No intraluminal filling defects seen. IMPRESSION: No DVT in either lower extremity.
[2020-07-27] MEDS: ENOXAPARIN 40 MG/0.4 ML SQ SCH (08:57)
[2020-07-27] MEDS: PANTOPRAZOLE 40 MG INJ IVP SCH (09:00)
[2020-07-27] MEDS ORDERED: POTASSIUM CL SA 10 MEQ TAB PO ONE (09:00)
[2020-07-27] MEDS: predniSONE 20 MG TAB PO SCH ×2 (12:16→22:27)
--- NOTE | 2020-07-27 17:55 | RAD REPORT ---
EXAM DESCRIPTION: CT - Chest For Pe Angio - 07/27/2020 5:26 pm CLINICAL HISTORY: SOB COMPARISON: Chest Abd Pelvis Wo Con dated 04/13/2019; Chest Single View dated 07/26/2020 TECHNIQUE: Dynamically enhanced 3 mm thick images of the chest were obtained during administration o f approximately 150mL Isovue 370 IV contrast. Coronal and oblique MIP reconstruction images were gene rated and reviewed. Exam utilizes a protocol to evaluate the pulmonary arterial tree. All CT scans are performed using dose optimization technique as appropriate and may include automated exposure control or mA/KV adjustment according to patient size. FINDINGS: No pulmonary emboli are identified. The aorta as imaged shows no acute or suspicious finding. No pericardial thickening or effusion. Airspace opacification is present in the posterior aspect of the left upper lobe along the pleura in the midportion and lingula. Lung brandt are otherwise clear. No pleural effusion or pleural thickenin g. No mediastinal or hilar suspicious masses. No chest wall masses or abnormal axillary lymphadenopathy. Multiple old rib fractures noted on the left. IMPRESSION: No pulmonary emboli identified. Suspected minimal pneumonia changes in the left upper lobe along the fissure.
--- NOTE | 2020-07-27 19:48 | P.PN ---
Subjective Date of Service: 07/27/20 Chief Complaint: Nausea/vomiting, rule out PE Subjective: Improving (feels a little better. continues with cough, SOB, and abdominal discomfort) Physical Examination - Vital Signs Temperature: 98.2 F Blood Pressure: 141/72 Pulse: 65 Respirations: 18 Pulse Ox (%): 93 - Studies Laboratory Data (last 24 hrs) 07/27/20 05:24: Sodium 138, Potassium 3.2 L, BUN 8, Creatinine 0.78, Glucose 93, Magnesium 1.8 07/27/20 05:24: WBC 7.9 D, Hgb 12.8, Hct 38.2, Plt Count 332 07/26/20 20:58: PT 12.5, INR 1.06, APTT 26.9 Assessment & Plan Physician Review Additional Text: Physical Exam: Gen: NAD HEENT: normal conjunctiva CV: RRR, no murmur, no edema Pulm: crackles at mid left lung, mild wheeze, +cough Abd: soft, mild diffuse TTP Ext: no rash Problem List: Elevated D-dimer rule out PE Nausea, vomiting, abdominal pain Diabetes mellitus type 2 Hypertension Plan SOB acute hypoxemia Elevated D-dimer rule out PE: having mild SOB, on O2 unfortunately had IV contrast with CT Abd yesterday, unable to get IV contrast again for 24hrs per hospital protocol. Renal function ok Will obtain CTA PE protocol this evening to r/o PE Patient has risk factors of smoking, recent surgery/immobilization. pt with long history of smoking, and reports wheeze at times, likely has COPD - when ready for dc will give albuterol, advair, prednisone start prednisone now Nausea, vomiting, abdominal pain: Full liquid diet, advance as tolerated. Continue with daily Protonix, p.r.n. Zofran. CT negative for acute findings Diabetes mellitus type 2: A.c. HS Accu-Cheks, sliding scale insulin therapy. Hypertension: Obtain and continue home medications as appropriate. VTE: lovenox Code: full Dispo: anticipate dc home in 24hrs Time Spent Managing Pts Care (In Minutes): 35
[2020-07-27] MEDS ORDERED: HYDROCODONE/APAP 5/325 MG TAB PO ONE (22:50)
[2020-07-28] MEDS ORDERED: MELATONIN 5 MG TABLET PO ONE (01:59)
[2020-07-28] MEDS: NA CHLORIDE 0.9% 1,000 ML IV SCH ×2 (02:58→06:32)
[2020-07-28 03:32] VITALS: O2SAT 96
[2020-07-28 07:12] LABS: Magnesium 1.9 mg/dL (1.8-2.4)
[2020-07-28] MEDS: INSULIN -REGULAR HUMAN 50 UNIT/0.5 ML ML SQ SCH (07:30)
[2020-07-28 08:52] VITALS: BP 144/91; TEMP 97.7
[2020-07-28] MEDS: PANTOPRAZOLE 40 MG INJ IVP SCH (09:00)
[2020-07-28] MEDS: ENOXAPARIN 40 MG/0.4 ML SQ SCH (09:16)
[2020-07-28] MEDS: predniSONE 20 MG TAB PO SCH (09:16)
--- NOTE | 2020-08-03 20:18 | P.DS ---
Admission Date: 07/26/20 Discharge Date: 07/28/20 Disposition: ROUTINE DISCHARGE Discharge Condition: GOOD Reason for Admission: Nausea/vomiting, rule out PE Procedures: CT Abd/Pelvis (07/26): No acute abnormality is displayed. Diverticulosis without evidence of diverticulitis. Spondylosis involves lumbar spine resulting in spinal stenosis CT Head (07/26): No acute intracranial abnormality is seen. CXR (07/26): No acute abnormalities displayed Venous U/S (07/26): No DVT in either lower extremity. CTA Chest (07/27): No pulmonary emboli identified. Suspected minimal pneumonia changes in the left upper lobe along the fissure. Problem List: Shortness of Breath Elevated D-dimer rule out PE Nausea, vomiting, abdominal pain COPD Diabetes mellitus type 2 Hypertension Brief History of Present Illness: 59 yo, F, PMH: DM2, HTN, HLD, presented to ED for nausea/vomiting and abdominal pain. Patient reports that she has had the symptoms last approximately 24 hr, also admits to some constipation. Patient noted to be mildly short of breath as well. Lab significant for white blood cell count 11.2 potassium 3.0 sodium 134, patient does appear dry. D-dimer elevated at 747. BNP 510. Negative for UTI. Patient had CT abdomen pelvis performed with no acute findings CT head, chest x- ray without acute findings. Patient had surgery to her left ankle approximately 1 month ago, now with some shortness of breath and mildly elevated D-dimer DVT study lower extremity negative, ED provider would like to scan chest with contrast but was unable to as she has just completed the contrast study of the abdomen. ED provider wishes to admit patient under observation for rehydration, control of nausea and vomiting, PE rule out. Hospital Course: Patient was hydrated, covered with antibiotics, and eventually underwent CTA Chest which was negative for PE. Patient was noted to have some mild wheezing on exam and on further questioning likely has undiagnosed COPD. CT chest was notable for a small possible pneumonia. Her nausea/vomiting and abdominal pain had improved as well. Her CT Abd/pelvis was negative, and on further questioning she reported this has been ongoing for several months, and may be due to irritable bowel syndrome. She was advised to follow up with her PCP. She is discharged with 7 days of levaquin to cover for possible pneumonia, and predni sone for mild COPD exacerbation. She was advised to f/u with PCP vs Pulmonology for further evaluation of possible COPD. Vital Signs/Physical Exam: Temp Pulse Resp BP Pulse Ox 97.7 F 74 16 144/91 H 97 07/28/20 08:00 07/28/20 08:00 07/28/20 08:00 07/28/20 08:00 07/28/20 08:00 General: Alert, In no apparent distress, Oriented x3 HEENT: Sclerae nonicteric Respiratory: Clear to auscultation bilaterally Cardiovascular: No edema, Regular rate/rhythm Gastrointestinal: Soft and benign, Non-distended, No tenderness Integumentary: No tenderness/swelling Neurological: Normal speech, Normal affect Laboratory Data at Discharge: WBC 7.9 K/uL (4.3-10.9) D 07/27/20 05:24 Hgb 12.8 g/dL (12.0-15.0) 07/27/20 05:24 Hct 38.2 % (36.0-45.0) 07/27/20 05:24 Plt Count 332 K/uL (152-406) 07/27/20 05:24 PT 12.5 SECONDS (9.5-12.5) 07/26/20 20:58 INR 1.06 07/26/20 20:58 APTT 26.9 SECONDS (24.3-36.9) 07/26/20 20:58 Sodium 137 mmol/L (136-145) 07/28/20 05:20 Potassium 4.0 mmol/L (3.5-5.1) 07/28/20 05:20 BUN 9 mg/dL (7-18) 07/28/20 05:20 Creatinine 0.79 mg/dL (0.55-1.3) 07/28/20 05:20 Glucose 153 mg/dL (74-106) H 07/28/20 05:20 Magnesium 1.9 mg/dL (1.8-2.4) 07/28/20 05:20 Total Bilirubin 0.5 mg/dL (0.2-1.0) 07/26/20 17:43 AST 18 U/L (15-37) 07/26/20 17:43 ALT 22 U/L (12-78) 07/26/20 17:43 Alkaline Phosphatase 89 U/L (45-117) 07/26/20 17:43 Lipase 96 U/L (73-393) 07/26/20 17:43 Home Medications: carvediloL [Coreg*] 12.5 mg PO BID #60 tab 11/24/15 Aspirin [Aspirin EC 81 MG] 81 mg PO DAILY #90 tablet. 01/01/18 Atorvastatin Calcium [Lipitor] 40 mg PO BEDTIME #30 tab 02/20/19 Amlodipine [Norvasc*] 10 mg PO DAILY 06/08/20 Citalopram [Celexa*] 20 mg PO DAILY 06/08/20 Doxepin HCl [Silenor] 1 tab PO DAILY 06/08/20 Fenofibrate [Tricor*] 1 tab PO DAILY 06/08/20 Hydroxyzine HCl [Atarax] 25 mg PO DAILY 06/08/20 Insulin Detemir [Levemir] 30 units SQ DAILY 06/08/20 Methocarbamol [Robaxin-750] 1 tab PO BIDP PRN 06/08/20 Omeprazole [Prilosec] 1 tab PO DAILY 06/08/20 Potassium Gluconate 550 mg PO DAILY 06/08/20 Tramadol HCl [Ultram] 50 mg PO Q8HR PRN #10 tablet 06/12/20 Albuterol Inhaler [Ventolin Inhaler*] 2 puff IH Q6H PRN [id number] 07/28/20 levoFLOXacin [Levaquin] 750 mg PO DAILY 7 Days #7 tab 07/28/20 predniSONE [Prednisone*] 20 mg PO BID 3 Days #6 tab 07/28/20 New Medications: levoFLOXacin [Levaquin] 750 mg PO DAILY 7 Days #7 tab predniSONE [Prednisone*] 20 mg PO BID 3 Days #6 tab Patient Discharge Instructions: Your shortness of breath may be due to undiagnosed COPD. You are discharged with prednisone and an albuterol inhaler. You will need to have further testing to evaluate for COPD with your PCP. Your CT scan was negative for a blood clot, but it did show a possible mild pneumonia. You are discharged on 7 days of levaquin (levofloxacin) to treat this. Please follow up with your PCP, your intermittent abdominal pain and nausea/vomiting may be IBS. Diet: ADA Activity: Ad sunitha Followup: Unknown,U [Primary Care Provider] - Time spent managing pt's care (in minutes): 40
== END 2020-07-28 11:15 | disposition home or self-care (01) | DRG 391 ==
LOC: ER 17:29 → ERHOLD 23:14 → 2ND 23:44 → OBSVTOIN 07-27 10:26
PROVIDERS: ADMIT Hospitalist; ATTEND Hospitalist
DX: K58.1 Irritable bowel syndrome with constipation (principal); J18.9 Pneumonia, unspecified organism; J44.0 Chronic obstructive pulmonary disease with (acute) lower respiratory infection; J44.1 Chronic obstructive pulmonary disease with (acute) exacerbation; F17.210 Nicotine dependence, cigarettes, uncomplicated; E11.9 Type 2 diabetes mellitus without complications; K21.9 Gastro-esophageal reflux disease without esophagitis; E78.5 Hyperlipidemia, unspecified; I10 Essential (primary) hypertension; R09.02 Hypoxemia; Z88.1 Allergy status to other antibiotic agents; Z88.8 Allergy status to other drugs, medicaments and biological substances; Z79.82 Long term (current) use of aspirin; Z79.899 Other long term (current) drug therapy; Z79.52 Long term (current) use of systemic steroids; Z79.4 Long term (current) use of insulin; Z90.49 Acquired absence of other specified parts of digestive tract; Z20.822 Contact with and (suspected) exposure to COVID-19
CPT/HCPCS: 0240U; 36415; 70450; 71045; 71275; 74177; 80048; 80076; 81003; 82947; 83605; 83690; 83735; 83880; 84132; 84145; 84484; 85025; 85379; 85610; 85730; 93005; 93970; 96361; 96365; 96366; 96375; 99285; G0378; J1650; J2405; J2550; J3475; J3480; J7030; J7512; Q9967

== ENCOUNTER 2020-09-16 18:29 | Inpatient (IN) | payer SELFPAY ==
--- OUTSIDE RECORDS SUMMARY | 2020-09-16 18:33 | XMS REPORT | Continuity of Care Document ---
:1960 Author Organization [facility] t Address 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 00:00: Medica l 00 [place] Hypokalemi Hypokalemi Disease Active [facility] a 12[facility]08 [facility] - 00:00: Medical 00 [place] Hypomagnes Hypomagnes Disease Active [facility] emia emia 12-08 [facility] - 00:00: Medical 00 [place] Alcohol Alcohol Disease Active [facility] abuse abuse 12-08 [facility] - 00:00: Medical 00 [place] Essential Essential Disease Active [facility] hypertensi [...] facility PANCREATIT Diagnosis Active 2014-11-05 Memoria IS 4 21:50:00 l 03:39: [place] PANCREATIT 00 IS Active 5 [facility] Diverticul Problem Resolve 2014 Memoria itis d 04:20:14 l (disorder) Sebastian n Diverticul itis (disorder) Resolved Problem 2014 [facility] Hypertensi Problem Resolve 2014 Memoria ve d 04:20:14 l disorder, [place] systemic Hypertensi arterial ve (disorder) disorder, systemic arterial (disorder) Resolved Problem 2014 [facility] CHRONIC Diagnosis Active 2014-11-05 Me moria PANCREATIT 21:50:00 l IS CHRONIC Tobias PANCREATIT IS Active [facility] Type 2 Type [address] [facility] diabetes diabetes [facility] - mellitus mellitus Memori a without without l complicati complicati Ou tpati on on ent Clinics History of History of Problem Active [facility] hypokalemi hypokalemi Carmen kes - a a [facility] Pain in Pain in Problem [...] St on [facility] Depression Depression Problem [facility] Allergic Allergic Problem Active [facility] rhinitis, rhinitis, [facility] - seasonal seasonal [facility] a l [facility] Allergies, Adverse Reactions, Alerts Allergy Allergy Status Severity Reaction(s) Onset Inactive Treating Comm ents Source Name Type Date Date Clinician Sulfamet Propensi Active Rash [facility] hoxazole ty to 12-07 [facility] - -Trimeth adverse 00:00: Medical oprim reaction 00 Center s Sulfa Adverse Active Info Not [facility] Reaction Available kes - [facility]olai [facility]t Outpati ent Clinics Bactrim Bactrim Active Nikolai Collado Social History Social Habit Start Date Stop Date Quantity Comments Source Sex Assigned At [facility] Alcohol Comment 2018-12-07 2018-12-[address] [facility] [address] kes - 00:00:00 00:00:00 run, last drank Medical C enter 12/06/18 Cigarettes smoked 2018-12-07 2018-12-[address] [facility] [address] [facility] - current (pack per 00:00:00 00:00:00 [facility] day) - Reported Cigarette 2018-12-07 2018-12-[address] [facility] [address] [facility] - pack-years 00:00:00 00:00:00 [facility] Tobacco use and 2018-12-07 2018-12-07 Never used [facility] ke - exposure 00:00:00 00:00:00 [facility] Alcohol intake 2018-12-07 2018-12-07 [facility] - 00:[facility]00 00:00:00 alcohol (finding) [facility] Tobacco Comment 2018-12-07 2018-12-07 1 pack every [address] [facility] [address] kes - 00:00:00 00:00:00 for the last 10 Medical C enter years Social History 2014-10-30 2014-10-30 [facility] 10:31:19 10:31:19 [place] Smoking Status Start Date Stop Date Source Current some day smoker 2018-12-07 00:00:00 [facility] Medications Ordered Filled Start Stop Current Ordering Indication Dosage Frequency Signature Comments Components Source Medication Medication Date Date Medication? Clinician (SIG) Name Name aspirin 81 2020- No 81mg QD Take [address] [facility] MG chewable 6-05 09-10 tablet (81 L ukes - tablet 00:00: 23:59 mg total) Medic al 00 :00 by mouth Center daily. multivitami 2020- No 1{tbl} QD Take [address] n 6-11 06-10 tablet by [facility] - (THERAGRAN) 00:00: 23:59 mouth Medi gurinder tablet 00 :00 daily. [place] ranitidine Yes 150mg Q.5D Take 150 [facility] I [...] 23 11-01 (Same as: l 17:21: Pneumovax [place] 00 23) Refrigerat e tramadol Yes 100.4 F, Abad charlene hydrochlori 11-01 X 4 day, # l de 50 MG 15:11: 30 tab, 0 Herm debbie Oral Tablet 00 Refill(s) [Ultram] Lisinopril No Notes: Memor ia 4-30 (Same as: l 14:00: Prinivil, [place] 00 Zestril) Hydrochloro No Notes: Abad charlene [...] capsular polysacchar carvedilol No Notes: Memor ia 10-30 Give with l 22:00: food. [place] 00 (Same As: Coreg) K-Dur 20 No Notes: Memoria 10-30 (Same as: l 15:30: K-Dur 20) Tobias 00 "Do Not Crush" With food and full glass of water Zofran No Notes: Memoria 10-30 (Same as: l 11:34: Zofran) Tobias 00 MEDICATION WASTE Product Size: 4 mg Product Wasted: ___ mg Morphine No Notes: Memoria 10-30 (Same l 11:26: as:MORPhin [place] 00 e Sulfate) Dilaudid No 1 mg, [...] thiazide 10-30 PO, Daily, l 10:34: 0 [place] 00 Refill(s) Lisinopril Yes 20 mg, PO, M emoria 10-30 Daily, 0 l 10:34: Refill(s) [place] 00 Vital Signs Vital Name Observation Time Observation Value Comments Source Heart Rate 2014-11-01 17:00:00 [facility] [place] Temperature Oral (F) 2014-11-01 17:00:00 98.5 F [facility] [place] Systolic (mm Hg) 2014-11-01 17:00:00 Abad rial [place] Diastolic (mm Hg) 2014-11-01 17:00:00 Mem orial [place] Respitory Rate 2014-11-01 17:00:00 Memori al [place] Heart Rate 2014-11-01 13:00:00 [facility] [place] Systolic (mm Hg) 2014-11-01 13:00:00 Abad rial [place]ias Diastolic (mm Hg) 2014-11-01 13:00:00 Mem orial [place] Respitory Rate 2014-11-01 13:00:00 Memori al [place] Temperature Oral (F) 2014-11-01 13:00:00 98.6 F [facility] [place] Respitory Rate 2014-11-01 09:01:00 Memori al [place] Systolic (mm Hg) 2014-11-01 09:01:00 Abad rial [place] Diastolic (mm Hg) 2014-11-01 09:01:00 Mem orial [place] Temperature Oral (F) 2014-11-01 09:01:00 98 F [facility] [place] Heart Rate 2014-11-01 09:01:00 [facility] Tobias Weight 2014-10-30 10:23:00 [facility] Tobias BMI Calculated 2014-10-30 10:23:00 Aleks Tilleyann Height 2014-10-30 10:23:00 162.56 cm Maxwell Collado Procedures Procedure Date / Time Performed Performing Clinician [facility] e section Maxwell balbuena Plan of Care Planned Activity Planned Date Details Comments Source Future Scheduled 2021-12-[address] [facility] - Test 00:00:00 (procedure) [code = Medical Center 93765973] Future Scheduled 2020-03-04 INFLUENZA VACCINE (#1) [facility] [code = INFLUENZA Medical Ce nter VACCINE (#1)] Future Scheduled 2019-06-[address] Carmen kes - Test 00:00:00 measurement Medical Center (procedure) [code = 25225115] Future Scheduled 1979-11-[address] [facility] - Test 00:00:00 malignant neoplasm of [facility] [place] [facility] cervix (procedure) [code = 864477195] Future Scheduled [address] DIABETIC EYE EXAM [facility] - Test 00:00:00 [code = DIABETIC EYE Medical Center EXAM] Future Scheduled [address] [facility] - Test 00:00:00 examination Medical Center (regime/therapy) [code = 667969558] Future Scheduled 1968 Urine screening [facility] - Test 00:00:00 protein (procedure) [facility] [code = 067122986] Future Scheduled [address] [facility] - Test 00:00:00 0-64 YRS (1 of 1 - Medical C enter PPSV23) [code = PNEUMOCOCCAL VACCINE 0-64 YRS (1 of 1 - PPSV23)] Future Scheduled [address] [facility] - Test 00:00:00 malignant neoplasm of [facility] [place] [facility] breast (procedure) [code = 191662221] Future Scheduled [address] [facility] - Test 00:00:00 malignant neoplasm of [facility] colon (procedure) [code = 459429665] Encounters Start End Encounter Admission Attending Care Care Encounter Source Date/Time Date/Time Type Type Clinicians Facility Department ID 2017-12-01 2017-12-01 Outpatient Shiela Leyva [id number] 09:06:00 09:06:00 [facility] Medicine Outpati ent Clinics 2017-11-22 2017-11-22 Outpatient Shiela Leyva [id number] 13:28:00 13:28:00 [facility] Medicine Outpati ent Clinics 2017-10-28 2017-10-28 Outpatient Shiela Leyva [id number] 15:25:00 15:25:00 [facility] 2017-10-27 2017-10-27 Outpatient Shiela Leyva [id number] 11:53:00 11:53:00 [facility] 2017-10-25 2017-10-25 Outpatient Shiela Leyva [id number] 13:30:00 13:30:00 [facility] 2014-10-30 2014-11-01 Outpatient Santosh [facility] [id number] 05:18:00 16:02:00 Aditya 19 Results Test Description [...] DIALYSIS PATIENTS. CBC W/PLT COUNT & AUTO [id number] 04:21:00 Test Item Value Reference Range Interpretation [...] PERCENT (BEAKER) (test code = 2801) POCT-GLUCOSE [id number] 22:00:00 Test Item Value Reference Range Interpretation Comments POC-GLUCOSE METER 148 mg/dL 70-[address] [facility] 6720 ([facility]) (test code = [facility] 1538) [address] POCT-GLUCOSE [id number] 17:06:00 Test Item Value Reference Range Interpretation Comments POC-GLUCOSE METER 224 mg/dL 70-110 H TESTED AT [place] [address] ([facility]) (test code = [facility] 1538) [address] POCT-GLUCOSE [id number] 12:39:00 Test Item Value Reference Range Interpretation Comments POC-GLUCOSE METER 214 mg/dL 70-110 H TESTED AT [place] [address] ([facility]) (test code = [facility] 1538) [address]102 POCT-GLUCOSE [id number] 08:26:00 Test Item Value Reference Range Interpretation Comments POC-GLUCOSE METER 166 mg/dL 70-110 H TESTED AT [place] [address] ([facility]) (test code = [facility] 1538) [address] COMPREHENSIVE METABOLIC [id number] 05:17:00 Test Item Value Reference Range Interpretation [...] S NOT APPLICABLE FOR DIALYSIS PATIEN TS. [id number] 05:14:00 Test Item Value Reference Range Interpretation Comments PHOSPHORUS (BEAKER) (test code = 2.9 mg/dL 2.3-4.7 604) [id number] 05:14:00 Test Item Value Reference Range Interpretation Comments MAGNESIUM (BEAKER) (test code = 1.6 mg/dL 1.6-2.6 627) CBC W/PLT COUNT & AUTO [id number] 04:48:00 Test Item Value Reference Range Interpretation [...] PERCENT (BEAKER) (test code = 2801) POCT-GLUCOSE [id number] 22:42:00 Test Item Value Reference Range Interpretation Comments POC-GLUCOSE METER 184 mg/dL 70-110 H TESTED AT [place] [address] ([facility]) (test code = [facility] 1538) [address] POCT-GLUCOSE [id number] 18:51:00 Test Item Value Reference Range Interpretation Comments POC-GLUCOSE METER 220 mg/dL 70-110 H TESTED AT [place] [address] (BEAKER) (test code = [facility] 1538) [address] [id number] 16:07:00 Test Item Value Reference Range Interpretation Comments MAGNESIUM (BEAKER) (test code = 1.8 mg/dL 1.6-2.6 627) [id number] 16:07:00 Test Item Value Reference Range Interpretation Comments POTASSIUM (BEAKER) (test code = 4.1 meq/L 3.5-5.1 379) POCT-GLUCOSE [id number] 15:47:00 Test Item Value Reference Range Interpretation Comments POC-GLUCOSE METER 215 mg/dL 70-110 H TESTED AT [place] [address] ([facility]) (test code = [facility] 1538) [address] [id number] 10:16:00 Test Item Value Reference Range Interpretation Comments MAGNESIUM (BEAKER) (test code = 1.7 mg/dL 1.6-2.6 627) POCT-GLUCOSE [id number] 09:25:00 Test Item Value Reference Range Interpretation Comments POC-GLUCOSE METER 156 mg/dL 70-[address] [facility] 6720 (BEAKER) (test code = GAIL Mccollum [facility] 1538) [address] BASIC METABOLIC [id number] 06:32:00 Test Item Value Reference Range Interpretation [...] PATIEN TS. CBC W/PLT COUNT & AUTO [id number] 05:42:00 Test Item Value Reference Range Interpretation [...] PERCENT (BEAKER) (test code = 2801) POCT-GLUCOSE [id number] 22:05:00 Test Item Value Reference Range Interpretation Comments POC-GLUCOSE METER 255 mg/dL 70-[address] [facility] 6720 (BEAKER) (test code = [place] 1538) [address] MR, BRAIN, WITHOUT [id number] 19:23:00Reason for exam:->StrokeWhat is the patient's sedation [...] arteries: Normal flow-related enhancement within the bilateral NEWS GATHERING TECHNICIAN P1-P2 segments without flow-limiting stenosis. 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 MRA NECK:Common carotid arteries: Unremarkable. [...] MDReport Verified Date/Time: 12/08/2018 19:23:05 Reading Location: [facility] C013V Neuro Reading Room MR, MRA, NECK, WITHOUT IV [id number] 19:23:00FINAL REPORT MR, BRAIN, WITHOUT CONTRAST, MR, [...] arteries: Normal flow-related enhancement within the bilateral NEWS GATHERING TECHNICIAN P1-P2 segments without flow-limiting stenosis. 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 MRA NECK:Common carotid arteries: Unremarkable. [...] MDReport Verified Date/Time: 12/08/2018 19:23:05 Reading Location: [address] Neuro Reading Room MR, MRA, BRAIN, WITHOUT [id number] 19:23:00Reason for exam:->StrokeWhat is the patient's sedation [...] arteries: Normal flow-related enhancement within the bilateral NEWS GATHERING TECHNICIAN P1-P2 segments without flow-limiting stenosis. 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 MRA NECK:Common carotid arteries: Unremarkable. [...] Holly Verified Date/Time: 12/08/2018 19:23:05 Reading Location: [address] Neuro Reading Room -GLUCOSE [id number] 19:03:00 Test Item Value Reference Range Interpretation Comments POC-GLUCOSE METER 158 mg/dL 70-[address] [facility] 6720 (BEAKER) (test code = GAIL Mccollum [place] 1539) [address] [id number] 17:33:00 Test Item Value Reference Range Interpretation Comments POTASSIUM (BEAKER) (test code = 4.0 meq/L 3.5-5.1 379) [id number] 17:33:00 Test Item Value Reference Range Interpretation Comments MAGNESIUM (BEAKER) (test code = 2.4 mg/dL 1.6-2.6 627) [id number] 14:55:00 Test Item Value Reference Range Interpretation Comments RPR SCREEN (BEAKER) (test code = Nonreactive Nonreactive 420) [id number] 12:28:00 Test Item Value Reference Range Interpretation Comments POTASSIUM (BEAKER) (test code = 2.9 meq/L 3.5-5.1 L 379) TROPONIN [id number] 10:59:00 Test Item Value Reference Range Interpretation [...] failure, acidosis, acute neurological disease, and persistent tachyarrhythmia.[id number] 10:50:00 Test Item Value Reference Range Interpretation Comments MAGNESIUM (BEAKER) (test code = 1.8 mg/dL 1.6-2.6 627) HEMOGLOBIN [id number] 07:49:00 Test Item Value Reference Range Interpretation Comments HEMOGLOBIN A1C (BEAKER) (test code = 8.1 % 4.3-6.1 H 368) HIV-1 ANTIGEN WITH HIV-1/2 [id number] 06:03:00 Test Item Value Reference Range Interpretation Comments HIV-1 ANTIGEN WITH HIV 1\\T\\2 Nonreactive Nonreactive ANTIBODY (2) (BEAKER) (test code = 2586) [id number] 05:54:00 Test Item Value Reference Range Interpretation Comments POTASSIUM (BEAKER) (test code = 2.8 meq/L 3.5-5.1 L 379) VITAMIN B12 AND [id number] 03:31:00 Test Item Value Reference Range Interpretation Comments VITAMIN B12 (BEAKER) (test code = 1168 pg/mL 213-816 H 774) FOLATE (BEAKER) (test code = 362) > ng/mL >=7.0 TSH/FREE T4 IF [id number] 03:24:00 Test Item Value Reference Range Interpretation Comments THYROID STIMULATING HORMONE 2.19 uIU/mL 0.35-4.94 (BEAKER) (test code = 772) BASIC METABOLIC [id number] 02:06:00 Test Item Value Reference Range Interpretation [...] m DATA TO CALCULA TE ESTIMATED GFR. [id number] 02:04:00 Test Item Value Reference Range Interpretation Comments MAGNESIUM (BEAKER) 1.5 mg/dL 1.6-2.6 L Specimen slightly (test code = 627) hemolyzed FastingLIPID [id number] 02:04:00 Test Item Value Reference Range Interpretation [...] High >=190 FastingCBC W/PLT COUNT & AUTO [id number] 01:36:00 Test Item Value Reference Range Interpretation [...] 0-1 PERCENT (BEAKER) (test code = 2801) [id number] 23:06:00 Test Item Value Reference Range Interpretation Comments ETHANOL (BEAKER) (test code = 400) < mg/dL <=10 TROPONIN [id number] 22:58:00 Test Item Value Reference Range Interpretation [...] acute neurological disease, and persistent tachyarrhythmia.BASIC METABOLIC [id number] 22:56:00 Test Item Value Reference Range Interpretation [...] DATA TO CALCULA TE ESTIMATED GFR. URINALYSIS [id number] 22:41:00 Test Item Value Reference Range Interpretation Comments RBC UA (BEAKER) (test code = 519) 1 /HPF WBC UA (BEAKER) (test code = 520) < /HPF SQUAMOUS EPITHELIAL (BEAKER) (test 7 /HPF code = 516) HYALINE CASTS (BEAKER) (test code = 2 /LPF 514) URINALYSIS WITH MICROSCOPIC IF [id number] 22:36:00 Test Item Value Reference Range Interpretation [...] SOURCE(BEAKER) (test code = 2795) BASIC METABOLIC [id number] 19:01:00 Test Item Value Reference Range Interpretation [...] m DATA TO CALCULA TE ESTIMATED GFR. [id number] 19:01:00 Test Item Value Reference Range Interpretation Comments MAGNESIUM (BEAKER) (test code = 0.7 mg/dL 1.6-2.6 LL 627) [id number] 18:58:00 Test Item Value Reference Range Interpretation Comments PHOSPHORUS (BEAKER) (test code = 3.3 mg/dL 2.3-4.7 604) HEPATIC FUNCTION [id number] 18:58:00 Test Item Value Reference Range Interpretation [...] code = 36 U/L 6-55 347) CHEM [id number] 08:47:44201Lxexqfek BhltigsKKYCVSOGIFEV6228-40-52 10:18:00 7.8[facility] DvcpzdbRHXATMEJOHTV0604-64-97 10:18:0098[facility] HermannELECTROLYTES 2014-10-31 10:18:0072[facility] OognmijXBRSDTKFPKWA4581-57-10 10:18:003.0[facility] FcypazqTTQJILOXNGWS9728-81-30 10:18:001.0[facility] VsxyabzPPPDAFOPCCKC2051-77-33 10:18:0045[facility] XoamijmVPWPWKMURCUL6314-64-76 10:18:0057[facility]ias NAMMNMSLVQRJ3896-84-97 10:18:0049[facility] HkovpclYXHMXUQXAKDO0286-48-22 10:18:00 0.7[facility]orial MmlgkodVKRKTGIKQYFS8733-57-87 10:18:35630Hqxpjtlq Tobias WBPKUIUGKXIK4295-91-22 10:18:000.9[facility] FokprolBOCNCLSIVAYR4477-98-21 10:18:0012[facility] BslcwbaPZXMEWOXEGLL7388-26-26 10:18:0013[facility] [place] QGVCHYQDUFPO1925-06-60 10:18:0030[facility] AdpbemtTQAEDAKBYXVF5178-03-93 10:18:00 6.1[facility] ZtdzgnjIGCDYTFUXPOP4344-12-10 10:18:009.5[facility] [place] EYRMSYOWWJML8341-28-95 10:18:003.1[facility] VoaouphBNCCGGZFUF8933-03-61 10:18:00 0.2[facility] MvdimtsPBKNFCLHOH7962-09-97 10:18:002+ *ABN*(10/31/14 5:18 AM) [facility] WoftojwYAUACKOFFB8765-53-12 10:18:000.5[facility] HermannHEMATOLOGY 2014-10-31 10:18:002.3[facility] HqvzsxlACKNCJGDAE6736-85-31 10:18:001.2[facility] WgqsjtxTRYLSAPWKM7015-15-49 10:18:000.3[facility] BrftchvXWYFEKTMNY0340-03-67 10:18:006.1[facility] OwiugsjDIKCZSPAHJ1406-15-00 10:18:006.1[facility] [place] FFRNFSAOVD8961-74-97 10:18:0015.1[facility] PkvzdsdWBKYFPGWCZ0494-15-97 10:18:00 76.2[facility] TzxnpniAOJFMOBRUG0196-85-36 10:18:0033.9[facility] HermannHEMATOLOGY 2014-10-31 10:18:92601.7[facility] GwfaqluTUOAAMJLTQ8295-62-02 10:18:0035.5 Memorial JbwszxvJUIKJEVIDX2213-77-28 10:18:0012.0[facility] HermannHEMATOLOGY 2014-10-31 10:18:008.0[facility] JoifrhuXOYLBNDHDB9597-40-81 10:18:003.39[facility] SfxongpWKQEAYUPLC0150-89-19 10:18:98887Wpzevbav ZrfqhguBPXBMMHOMC7559-56-10 10:18:009.5[facility] NjokdrwERXYNEQDYN0430-14-65 10:18:0012.7[facility] [place] WZTWSJGLVB0888-28-74 10:18:00 Test Item Value Reference Range Interpretation Comments MCH (test code = MCH) 35.5 pg 27.0-31.0 [facility] SyxjupeKINSHV9012-91-51 10:18:0077[facility] JkzzfpeOVVFRY9100-93-32 10:18:00274Vmistaft KpmjvifMCXOQA7521-43-52 10:18:0067[facility] HermannLIPIDS 2014-10-31 10:18:0082[facility] GdedzbfCTIBUY6812-46-71 10:18:002.23[facility] WkjyenfSZMQVI5184-09-74 10:18:0013[facility] HermannCHEM BKCTD3632-38-48 10:18:00 660[facility] TuldtdhCPZBDBQTEPJV8796-39-19 10:18:73256Noobsxxo [place] DHFDLYHJVPZJ1550-73-08 10:18:003.5[facility] KomleopXMDANXEEEF5304-42-47 12:48:00 20.3[facility] EmaensvCYWLZNCLLY6668-73-18 12:48:0070.9[facility] HermannHEMATOLOGY 2014-10-30 12:48:0012.9[facility] YcwklkiOCLZWAXFEX4455-62-94 12:48:0012.8[facility] ExfkpvhEQLYTTHIQG5216-38-26 12:48:003.56[facility] CwuesufKEWYYCCNHN6950-62-56 12:48:008.3[facility] UmxrpyrOXEUELCJGY8411-88-25 12:48:89693Zaahxqal Tobias YVNACQEQOE7472-28-14 12:48:45546.3[facility] IgcrkrqWCISEZAMGD7019-55-96 12:48:00 36.8[facility] VopicgjVWMGVJKKKC7644-16-52 12:48:0034.9[facility] HermannHEMATOLOGY 2014-10-30 12:48:00 Test Item Value Reference Range Interpretation Comments MCH (test code = MCH) 36.1 pg 27.0-31.0 [facility] YfhdminFPJIBELIOL4393-07-07 12:48:007.8[facility] HermannCHEM PANEL 2014-10-30 12:48:158551Kefiampw HermannCHEM ZGUDE5958-46-15 12:48:0050[facility] HermannCHEM TDCXG7321-70-46 12:48:001.0[facility] HermannCHEM SZZWN2635-34-12 12:48:003.6[facility] HermannCHEM APHDN7877-87-79 12:48:0033[facility] HermannCHEM ZJEZG4883-54-93 12:48:006.4[facility] HermannCHEM SGWND6331-26-01 12:48:0084 [facility] HermannCHEM BNRBJ2819-29-44 12:48:0092[facility] HermannCHEM PANEL 2014-10-30 12:48:26475Mjkxavvp HermannCHEM SAXIE7994-29-36 12:48:0030[facility] HermannCHEM DYEGV9532-70-51 12:48:0046[facility] HermannCHEM PIIXM2279-34-91 12:48:003.1[facility] HermannCHEM LJZMG9822-95-11 12:48:008.3[facility] HermannCHEM XPPZS6694-39-47 12:48:0096[facility] HermannCHEM YAQSO2671-29-25 12:48:09010 [facility] HermannCHEM ROZLI0233-47-17 12:48:001.3[facility] HermannCHEM PANEL 2014-10-30 12:48:002.8[facility] HermannCHEM KLZTJ3798-35-42 12:48:001.3[facility] HermannCHEM YWFGT4886-05-29 12:48:0023Mem[facility] HermannCHEM NBUFW5519-36-51 12:48:0010.1[facility] AikytrjLVXECIMKXY3626-37-74 12:48:001+ *ABN*(10/30/14 7:48 AM)[facility] LdybtxsBTIQDVKKXL2909-69-09 12:48:005.5[facility] HermannHEMATOLOGY 2014-10-30 12:48:000.7[facility] UzdcrkeCUVEDWHABA1239-06-13 12:48:001.4[facility] FiukdfzRSRRILRZKB5624-25-40 12:48:000.1[facility] BampytzCOQYUSJVFZ3354-71-93 12:48:000.1[facility] RuzatlqQBPHWRHSWH0662-60-43 12:48:001.6[facility] [place] DJQZLBQYUD2523-61-90 12:48:000.5[facility] BxwmglfUEMUDIIUZT4052-88-23 12:48:006.7 [facility] [place]
[2020-09-16] MEDS ORDERED: D50W 25 GM/50 ML SYRINGE IV ONE ×2 (18:56→21:34)
[2020-09-16 19:12] LABS: Absolute Lymphocytes (CBC) 1.1 K/uL (0.7-4.9); Basophils % 0.2 % (0-1.3); Hematocrit 40.5 % (36.0-45.0); Lymphocytes % 9.2 % (15.3-44.8); MPV 8.5 fL (7.6-11.3); RBC Red Blood Cell Count 4.37 M/uL (3.86-4.86)
[2020-09-16 19:43] LABS: ALT/SGPT 53 U/L (12-78); AST/SGOT 67 U/L (15-37); Albumin 4.1 g/dL (3.4-5.0); Alkaline Phosphatase 123 U/L (45-117); BUN Blood Urea Nitrogen 22 mg/dL (7-18); Bicarbonate 23 mmol/L (21-32); Bilirubin Direct 0.3 mg/dL (0-0.2); Protein, Total 8.1 g/dL (6.4-8.2); Sodium Level 140 mmol/L (136-145)
[2020-09-16 19:44] LABS: Glucose Level 19 mg/dL (74-106); Potassium 2.9 mmol/L (3.5-5.1)
--- NOTE | 2020-09-16 19:57 | RAD REPORT ---
EXAM DESCRIPTION: RAD - Chest Single View - 09/16/2020 7:52 pm CLINICAL HISTORY: COUGH Chest pain. COMPARISON: Chest Single View dated 07/26/2020; Chest Single View dated 02/19/2019; Chest Single View dated 12/07/2018; Chest Single View dated 10/16/2018 FINDINGS: Portable technique limits examination quality. The lungs are mildly emphysematous but grossly clear. The heart is normal in size. No displaced fract ures.Chronic right AC joint separation. IMPRESSION: No acute intrathoracic process suspected.
[2020-09-16 20:03] LABS: Magnesium 2.4 mg/dL (1.8-2.4); NT PRO-BNP 220 pg/mL (<125); Troponin (Emerg Dept Use Only) < 0.02 ng/mL (0.0-0.045)
[2020-09-16] MEDS ORDERED: THIAMINE 200 MG/2 ML INJ ONE (20:07)
[2020-09-16] MEDS ORDERED: MULTIVITAMINS 10 ML VIAL (INJ) IV ONE (20:08)
[2020-09-16] MEDS ORDERED: FOLIC ACID 5 MG/ML VIAL ONE (20:08)
[2020-09-16] MEDS ORDERED: NA CHLORIDE 0.9% 1,000 ML ONE (20:08)
[2020-09-16] MEDS ORDERED: KCL 20 MEQ/100 mL IVPB 20 MEQ/100 ML BAG IV ONE (20:13)
--- NOTE | 2020-09-16 20:15 | RAD REPORT ---
EXAM DESCRIPTION: CT - CTHCSPWOC - 09/16/2020 7:59 pm CLINICAL HISTORY: Trauma, head and neck injury. Pain;Weakness COMPARISON: Head C Spine Mpr Wo Con dated 05/21/2016; CT HEAD CSPINE MPR WO CONTRAST dated 02/27/2015 TECHNIQUE: Axial 5 mm thick images of the head were obtained. Axial 2 mm thick images of the cervical spine were obtained with sagittal and coronal reconstruction images generated and reviewed. All CT scans are performed using dose optimization technique as appropriate and may include automated exposure control or mA/KV adjustment according to patient size. FINDINGS: CT HEAD WITHOUT CONTRAST: No acute hemorrhage, hydrocephalus or extra-axial collection is identified.No areas of brain edema or midline shift. The paranasal sinuses and mastoids are clear.The calvarium is intact. CT CERVICAL SPINE WITHOUT CONTRAST: No fracture or subluxation.Mild degenerative change involves the lower cervical spine.No prevertebral soft tissues swelling is identified. IMPRESSION: No acute intracranial or cervical spine findings.
[2020-09-16] MEDS ORDERED: ONDANSETRON 4 MG/2 ML VIAL ONE ×2 (20:27→21:35)
--- NOTE | 2020-09-16 20:54 | EDPHYS ---
Physician Documentation [facility] Name: Billie Botello Age: 59 yrs Sex: Female : 1960 Arrival Date: 09/16/2020 Time: 18:41 Bed 5 Private MD: ED Physician Dallas Arreola HPI: 09/16 18:54 This 59 yrs old Female presents to ER via EMS with complaints of Low Blood kdr Sugar. 18:55 The patient presents with agitation, confusion, disorientation, to person, to place, to kdr time. Onset: The symptoms/episode began/occurred 2 day(s) ago, at an unknown time. Possible causes: CVA or TIA, drug use, alcohol, has a history of chronic alcohol abuse, has had a recent alcohol binge, Had been off ETOH for four months until the last two days. Associated signs and symptoms: Pertinent positives: combativeness, confusion. Historical: - Allergies: 18:45 Bactrim; sv 18:45 Sulfa (Sulfonamide Antibiotics); sv 18:45 Trazodone; sv 18:45 TRIMETHOPRIM; sv - PMHx: 18:45 Diabetes - NIDDM; High Cholesterol; Hypertension; Pancreatitis; ETOH abuse; sv - PSHx: 18:45 Appendectomy; sv - Immunization history:: Adult Immunizations unknown. - Social history:: Smoking status: Patient reports the use of cigarette tobacco products, Patient uses alcohol. ROS: 19:50 Constitutional: Negative for fever, chills, and weight loss, Eyes: Negative for injury, edgard pain, redness, and discharge, ENT: Negative for injury, pain, and discharge, Neck: Negative for injury, pain, and swelling, Cardiovascular: Negative for chest pain, palpitations, and edema, Respiratory: Negative for shortness of breath, cough, wheezing, and pleuritic chest pain, Abdomen/GI: Negative for abdominal pain, nausea, vomiting, diarrhea, and constipation, Back: Negative for injury and pain, : Negative for injury, bleeding, discharge, and swelling, MS/Extremity: Negative for injury and deformity, Skin: Negative for injury, rash, and discoloration, Neuro: Negative for headache, weakness, numbness, tingling, and seizure, Psych: Negative for depression, anxiety, suicide ideation, homicidal ideation, and hallucinations, Allergy/Immunology: Negative for hives, rash, and allergies, Hematologic/Lymphatic: Negative for swollen nodes, abnormal bleeding, and unusual bruising. Exam: 19:50 Constitutional: This is a well developed, well nourished patient who is awake, alert, edgard and in no acute distress. Head/Face: Normocephalic, atraumatic. Eyes: Pupils equal round and reactive to light, extra-ocular motions intact. Lids and lashes normal. Conjunctiva and sclera are non-icteric and not injected. Cornea within normal limits. Periorbital areas with no swelling, redness, or edema. ENT: Nares patent. No nasal discharge, no septal abnormalities noted. Tympanic membranes are normal and external auditory canals are clear. Oropharynx with no redness, swelling, or masses, exudates, or evidence of obstruction, uvula midline. Mucous membranes moist. Neck: Trachea midline, no thyromegaly or masses palpated, and no cervical lymphadenopathy. Supple, full range of motion without nuchal rigidity, or vertebral point tenderness. No Meningismus. Chest/axilla: Normal chest wall appearance and motion. Nontender with no deformity. No lesions are appreciated. Cardiovascular: Regular rate and rhythm with a normal S1 and S2. No gallops, murmurs, or rubs. Normal PMI, no JVD. No pulse deficits. Respiratory: Lungs have equal breath sounds bilaterally, clear to auscultation and percussion. No rales, rhonchi or wheezes noted. No increased work of breathing, no retractions or nasal flaring. Abdomen/GI: Soft, non-tender, with normal bowel sounds. No distension or tympany. No guarding or rebound. No evidence of tenderness throughout. Back: No spinal tenderness. No costovertebral tenderness. Full range of motion. Female : Normal external genitalia. Skin: Warm, dry with normal turgor. Normal color with no rashes, no lesions, and no evidence of cellulitis. MS/ Extremity: Pulses equal, no cyanosis. Neurovascular intact. Full, normal range of motion. Neuro: Awake and alert, GCS 15, oriented to person, place, time, and situation. Cranial nerves II-XII grossly intact. Motor strength 5/5 in all extremities. Sensory grossly intact. Cerebellar exam normal. Normal gait. Psych: Awake, alert, with orientation to person, place and time. Behavior, mood, and affect are within normal limits. 09/17 00:09 ECG was reviewed by the Attending Physician. edgard Vital Signs: 09/16 18:50 BP 121 / 91; Pulse 88; Resp 21; Temp 98.9; Pulse Ox 95% ; Weight 108.86 kg; Height 5 jl7 ft. 4 in. (162.56 cm); Pain 5/10; 21:35 BP 119 / 63; Pulse 91; Resp 19; Pulse Ox 98% ; ea 22:00 BP 129 / 84; Pulse 92; Resp 18; Pulse Ox 98% ; ea 09/17 00:00 BP 128 / 75; Pulse 92; Resp 18; Pulse Ox 97% ; ea 01:00 BP 131 / 80; Pulse 94; Resp 18; Temp 98.7; Pulse Ox 96% ; ea 09/16 18:50 Body Mass Index 41.20 (108.86 kg, 162.56 cm) jl7 MDM: 09/16 20:01 Patient medically screened. edgard 20:54 Differential Diagnosis: CVA, alcohol intoxication, hypoglycemia, intracranial bleed, edgard pneumonia, seizure, TIA, UTI, volume depletion. Data reviewed: vital signs, nurses notes, lab test result(s), EKG, radiologic studies. Data interpreted: cafeteria monitor: rate is 88 beats/min, rhythm is regular, Pulse oximetry: on room air is 88 %. Test interpretation: by ED physician or midlevel provider: ECG, plain radiologic studies. Counseling: I had a detailed discussion with the patient and/or guardian regarding: the historical points, exam findings, and any diagnostic results supporting the discharge/admit diagnosis, lab results, radiology results, the need for outpatient follow up, for definitive care, a family practitioner, a psychiatrist. 09/16 18:46 Order name: Acetaminophen; Complete Time: 19:52 sv 09/16 18:46 Order name: Basic Metabolic Panel; Complete Time: 19:52 09/16 18:46 Order name: CBC with Diff; Complete Time: 19:45 09/16 18:46 Order name: ETOH Level; Complete Time: 19:45 09/16 18:46 Order name: Hepatic Function; Complete Time: 19:52 09/16 18:46 Order name: PT-INR; Complete Time: 19:45 09/16 18:46 Order name: Ptt, Activated; Complete Time: 19:45 sv 09/16 18:46 Order name: Salicylate; Complete Time: 19:52 sv 09/16 18:46 Order name: Urine Drug Screen sv 09/16 19:13 Order name: Glucose, Ancillary Testing; Complete Time: 19:45 EDMS 09/16 19:20 Order name: glucometer results - FOR PT WITH NO ID; Complete Time: 19:52 mh5 09/16 19:42 Order name: Magnesium; Complete Time: 20:51 [facility] 09/16 19:42 Order name: NT PRO-BNP; Complete Time: 20:51 edgard 09/16 19:42 Order name: Troponin (emerg Dept Use Only); Complete Time: 20:51 edgard 09/16 19:42 Order name: CT Head C Spine; Complete Time: 20:51 edgard 09/16 19:42 Order name: XRAY Chest (1 view); Complete Time: 20:51 [facility] 09/16 21:18 Order name: Glucose, Ancillary Testing; Complete Time: 21:19 EDMS 09/16 21:20 Order name: Lipase; Complete Time: 22:29 la1 09/16 23:23 Order name: Glucose, Ancillary Testing EDCA 09/16 23:33 Order name: SARS-COV-2 RT PCR EDMS 09/17 00:39 Order name: Glucose, Ancillary Testing EDMS 09/16 18:46 Order name: EKG; Complete Time: 18:47 sv 09/16 18:46 Order name: EKG - Nurse/Tech; Complete Time: 19:07 09/16 18:46 Order name: IV Saline Lock; Complete Time: 18:51 09/16 18:46 Order name: Labs collected and sent; Complete Time: 18:51 09/16 19:42 Order name: Cardiac monitoring; Complete Time: 19:59 [facility] 09/16 19:42 Order name: O2 Per Protocol; Complete Time: 19:58 [facility] 09/16 19:42 Order name: O2 Sat Monitoring; Complete Time: 19:59 [facility] 09/16 19:49 Order name: Diet Regular; Complete Time: 19:50 [facility] 09/16 20:52 Order name: Blood Glucose Level; Complete Time: 21:06 edgard EC/17 00:09 Rate is 87 beats/min. Rhythm is regular. QRS [place] is Normal. [place] interval is normal. QRS edgard interval is normal. QT interval is prolonged at 420 msec. No Q waves. T waves are Normal. No ST changes noted. Clinical impression: NSR w/ Non-specific ST/T Changes and No evidence of ischemia. Interpreted by me. Reviewed by me. Administered Medications: 09/16 18:30 Drug: D50W 50 ml Route: IVP; Site: right antecubital; sg 19:30 Follow up: Response: No adverse reaction ea 20:18 Drug: Thiamine 100 mg Route: IV; Rate: bolus; Site: right antecubital; ea 09/17 01:47 Follow up: IV Status: Completed infusion em 09/16 20:18 Drug: Banana Bag - (NS 0.9% 1000 ml, foLIC Acid 1 mg, Thiamine 100 mg, Multivitamin 1 ea amp) Route: IV; Rate: 500 ml/hr; Site: right antecubital; 20:18 Drug: Potassium Chloride 20 mEq Route: IV; Rate: per protocol; Site: right antecubital; ea 21:23 Drug: Potassium Effervescent Tablet 50 mEq Route: PO; ea 22:00 Follow up: Response: No adverse reaction ea 21:23 Drug: D50W 50 ml Route: IVP; Site: right antecubital; ea 22:00 Follow up: Response: No adverse reaction ea 21:23 Drug: Zofran (Ondansetron) 4 mg Route: IVP; Site: right antecubital; ea 22:00 Follow up: Response: No adverse reaction ea 21:35 Drug: D5-1/2 NS 1000 ml Route: IV; Rate: 125 ml/hr; Site: right hand; ea 23:17 Drug: Potassium Effervescent Tablet 50 mEq Route: PO; ea 09/17 02:05 Follow up: Response: No adverse reaction ea 00:20 Drug: Reglan 10 mg Route: IVP; Site: right antecubital; ea 02:20 Follow up: Response: No adverse reaction ea Point of Care Testing: Blood Glucose: 09/16 18:40 Blood Glucose: 30 mg/dL; sv 21:06 Blood Glucose: 65 mg/dL; ea Ranges: Critical Glucose Levels:Adult <50 mg/dl or >400 mg/dl <40 mg/dl or >180 mg/dl Disposition: 09/16/20 21:12 Hospitalization ordered by Jim Gilman for Observation. Preliminary diagnosis are Hypokalemia, Hypoglycemia, unspecified, Type 2 diabetes mellitus - insulin controlled, Nausea and vomiting, Anorexia. - Bed requested for Telemetry/MedSurg (observation). - Status is Observation. ea - Condition is Fair. - Problem is new. - Symptoms have improved. Signatures: Dispatcher [employer] EDChelsea Kong, RN Kary Browne RN RN dw Gay, Steven RN Dallas Wong MD MD cha Rittger, Kevin, MD MD kdr Attema, Branden, SALES STORE CHECKER-C SALES STORE CHECKER-Cla1 Barbara Schmitt RN TEE jl7 Angela Sims RN RN ea Munoz, Edgar RN em Corrections: (The following items were deleted from the chart) 20:56 20:53 09/16/2020 20:53 Discharged to Home. Impression: Hypoglycemia, unspecified; edgard Alcohol abuse; Type 2 diabetes mellitus - insulin treatment, no oral hypoglycemic meds; Hypokalemia. Condition is Stable. Discharge Instructions: Alcohol Use Disorder, Potassium Content of Foods, Hypoglycemia, Alcohol Abuse and Nutrition, Blood Glucose Monitoring, Adult, Hypoglycemia, [id number], Hypokalemia. Prescriptions for Potassium Chloride 10 % Oral Liquid - take 20 milliequivalents by ORAL route once daily Take after meal; Mix in 6 ounces of water or juice; 160 milliliter. and Forms are Medication Reconciliation Form, Thank You Letter, Antibiotic Education, Prescription Opioid Use. Follow up: Private Physician; When: 2 - 3 days; Reason: Recheck today's complaints, Continuance of care, Re-evaluation by your physician. Follow up: Karlie Nam; When: 2 - 3 days; Reason: Recheck today's complaints, Continuance of care, Re-evaluation by your physician. Problem is new. Symptoms have improved. [facility] 21:11 20:56 09/16/2020 20:53 Discharged to Home. Impression: Hypoglycemia, unspecified; edgard Alcohol abuse; Type 2 diabetes mellitus - insulin treatment, no oral hypoglycemic meds; Hypokalemia. Condition is Stable. Discharge Instructions: Alcohol Use Disorder, Potassium Content of Foods, Hypoglycemia, Alcohol Abuse and Nutrition, Blood Glucose Monitoring, Adult, Hypoglycemia, [id number], Hypokalemia. Prescriptions for Potassium Chloride 10 % Oral Liquid - take 20 milliequivalents by ORAL route once daily Take after meal; Mix in 6 ounces of water or juice; 160 milliliter. and Forms are Medication Reconciliation Form, Thank You Letter, Antibiotic Education, Prescription Opioid Use. Follow up: Private Physician; When: 2 - 3 days; Reason: Recheck today's complaints, Continuance of care, Re-evaluation by your physician. Follow up: Karlie Nam; When: 2 - 3 days; Reason: Recheck today's complaints, Continuance of care, Re-evaluation by your physician. Follow up: Victor Manuel Prado; When: 2 - 3 days; Reason: Recheck today's complaints, Re-evaluation by your physician. Problem is new. Symptoms have improved. [facility] 22:34 22:15 CORONAVIRUS+MR.LAB.BRZ ordered. [facility] 09/17 01:04 09/16 21:12 Hospitalization Ordered by Jim Gilman DO for Observation. Preliminary dw diagnosis is Hypokalemia; Hypoglycemia, unspecified; Type 2 diabetes mellitus - insulin controlled; Nausea and vomiting; Anorexia. Bed requested for Telemetry/MedSurg (observation). Status is Observation. Condition is Fair. Problem is new. Symptoms have improved. [facility] 09/17 02:05 01:04 09/16/2020 21:12 Hospitalization Ordered by Jim Gilman DO for Observation. ea Preliminary diagnosis is Hypokalemia; Hypoglycemia, unspecified; Type 2 diabetes mellitus - insulin controlled; Nausea and vomiting; Anorexia. Bed requested for Telemetry/MedSurg (observation). Status is Observation. Condition is Fair. Problem is new. Symptoms have improved. dw
--- NOTE | 2020-09-16 20:54 | ER ---
Nurse's Notes [facility] Name: Billie Botello Age: 59 yrs Sex: Female : 1960 Arrival Date: 09/16/2020 Time: 18:41 Bed 5 Private MD: Diagnosis: Hypokalemia;Hypoglycemia, unspecified;Type 2 diabetes mellitus-insulin controlled;Nausea and vomiting;Anorexia Presentation: 09/16 18:41 Chief complaint: EMS states: hx ETOB abuse, has been cleaned for 4 months but the past sv 2 days her daughter has been coming to check her and noticed that she had started drinking again. Yesterday she found her on the ground and put her back in bed. Today pt started having auditory and visual hallucinations and A\T\Ox4, vitals were HR-92 RR-18 98% RA, BS-LOW. 1 packet of oral glucose given and then she started kicking and screaming. Risk Assessment: Do you want to hurt yourself or someone else? Patient reports no desire to harm self or others. Onset of symptoms was September 16, 2020. 18:41 Method Of Arrival: EMS: [facility] sv 18:41 Acuity: NIKA 1 sv 21:37 Ebola Screen: No symptoms or risks identified at this time. Initial Sepsis Screen: Does ea the patient meet any 2 criteria? No. Patient's initial sepsis screen is negative. Does the patient have a suspected source of infection? No. Patient's initial sepsis screen is negative. 09/17 01:53 Coronavirus screen: At this time, the client does not indicate any symptoms associated ea with coronavirus-19. Historical: - Allergies: 09/16 18:45 Bactrim; sv 18:45 Sulfa (Sulfonamide Antibiotics); sv 18:45 Trazodone; sv 18:45 TRIMETHOPRIM; sv - PMHx: 18:45 Diabetes - NIDDM; High Cholesterol; Hypertension; Pancreatitis; ETOH abuse; sv - PSHx: 18:45 Appendectomy; sv - Immunization history:: Adult Immunizations unknown. - Social history:: Smoking status: Patient reports the use of cigarette tobacco products, Patient uses alcohol. Screenin:50 Abuse screen: Denies threats or abuse. Denies injuries from another. Nutritional jl7 screening: No deficits noted. Tuberculosis screening: No symptoms or risk factors identified. Fall Risk IV access (20 points). Total Arias Fall Scale indicates No Risk (0-24 pts). Assessment: 18:47 Reassessment: Received VO from Dr Penaloza for toxic workup. sv 18:50 General: Appears in no apparent distress. uncomfortable, Behavior is cooperative, jl7 anxious. Pain: Complains of pain in left knee. Neuro: Level of Consciousness is awake, alert, obeys commands, Oriented to person, place, time, situation. Cardiovascular: Denies chest pain, Patient's skin is warm and dry. Respiratory: Airway is patent Respiratory effort is even, unlabored, Respiratory pattern is regular, symmetrical, Denies shortness of breath. Derm: Skin is pink, warm \T\ dry. Bruising that is yellow, on left knee. Derm: Bruising that is dark purple, on left supraorbital ridge. 21:36 Reassessment: Patient and/or family updated on plan of care and expected duration. Pain ea level reassessed. Pt alert and oriented x 3. Respirations even and unlabored, chest expansions even and symmetrical. 09/17 01:53 Reassessment: Patient and/or family updated on plan of care and expected duration. Pain ea level reassessed. Report given to receiving nurse on fourth floor. Pt admitted to fourth floor, pt left ED via stretcher per tech, pt tolerating well. Vital Signs: 09/16 18:50 BP 121 / 91; Pulse 88; Resp 21; Temp 98.9; Pulse Ox 95% ; Weight 108.86 kg; Height 5 jl7 ft. 4 in. (162.56 cm); Pain 5/10; 21:35 BP 119 / 63; Pulse 91; Resp 19; Pulse Ox 98% ; ea 22:00 BP 129 / 84; Pulse 92; Resp 18; Pulse Ox 98% ; ea 09/17 00:00 BP 128 / 75; Pulse 92; Resp 18; Pulse Ox 97% ; ea 01:00 BP 131 / 80; Pulse 94; Resp 18; Temp 98.7; Pulse Ox 96% ; ea 09/16 18:50 Body Mass Index 41.20 (108.86 kg, 162.56 cm) jl7 ED Course: 09/16 18:41 Patient arrived in ED. sv 18:44 Triage completed. sv 18:47 Initial lab(s) drawn, by ED staff, sent to lab. Inserted saline lock: 20 gauge in right jl7 antecubital area, using aseptic technique. Blood collected. 18:47 EKG done, by ED staff, reviewed by Eduard Penaloza MD. jl7 18:48 Eduard Penaloza MD is Attending Physician. kdr 18:50 Arm band placed on right wrist. Patient placed in an exam room, on a stretcher, on jl7 rn cardiac cath, on pulse oximetry. 18:50 Patient has correct armband on for positive identification. Bed in low position. Call jl7 light in reach. Side rails up X 1. fruit ii farmworker on. Pulse ox on. NIBP on. Warm blanket given. 19:16 Attending Physician role handed off by Eduard Penaloza MD edgard 19:16 Dallas Arreola MD is Attending Physician. edgard 19:47 Jose Keene RN is Primary Nurse. em 19:51 XRAY Chest (1 view) In Process Unspecified. EDMS 19:59 CT Head C Spine In Process Unspecified. EDMS 20:53 Karlie Nam MD is Referral Physician. edgard 20:56 Victor Manuel Prado MD is Referral Physician. edgard 21:11 Jim Gilman DO is Hospitalizing Provider. edgard 21:37 No provider procedures requiring assistance completed. Patient admitted, IV remains in ea place. 23:55 Emmett wrap to left knee and left ankle. ds4 Administered Medications: 18:30 Drug: D50W 50 ml Route: IVP; Site: right antecubital; sg 19:30 Follow up: Response: No adverse reaction ea 20:18 Drug: Thiamine 100 mg Route: IV; Rate: bolus; Site: right antecubital; ea 09/17 01:47 Follow up: IV Status: Completed infusion em 09/16 20:18 Drug: Banana Bag - (NS 0.9% 1000 ml, foLIC Acid 1 mg, Thiamine 100 mg, Multivitamin 1 ea amp) Route: IV; Rate: 500 ml/hr; Site: right antecubital; 20:18 Drug: Potassium Chloride 20 mEq Route: IV; Rate: per protocol; Site: right antecubital; ea 21:23 Drug: Potassium Effervescent Tablet 50 mEq Route: PO; ea 22:00 Follow up: Response: No adverse reaction ea 21:23 Drug: D50W 50 ml Route: IVP; Site: right antecubital; ea 22:00 Follow up: Response: No adverse reaction ea 21:23 Drug: Zofran (Ondansetron) 4 mg Route: IVP; Site: right antecubital; ea 22:00 Follow up: Response: No adverse reaction 21:35 Drug: D5-1/2 NS 1000 ml Route: IV; Rate: 125 ml/hr; Site: right hand; ea :17 Drug: Potassium Effervescent Tablet 50 mEq Route: PO; ea 09/17 02:05 Follow up: Response: No adverse reaction ea 00:20 Drug: Reglan 10 mg Route: IVP; Site: right antecubital; ea 02:20 Follow up: Response: No adverse reaction Point of Care Testing: Blood Glucose: 09/16 18:40 Blood Glucose: 30 mg/dL; 21:06 Blood Glucose: 65 mg/dL; Ranges: Outcome: 20:53 Discharge ordered by MD. edgard 21:12 Decision to Hospitalize by Provider. edgard 21:37 Instructed on the need for transfer. 09/17 02:02 Admitted to Med/surg accompanied by tech, room 430, with chart, Report called to ea Receiving nurse on fourth floor Condition: stable 02:05 Patient left the ED. ea Signatures: Dispatcher [employer] Chelsea Beaver, RN Pancho Sullivan RN Dallas Wong MD MD cha Rittger, Kevin, MD MD kdr Munoz, Edgar, RN RN em Swanson, Donovan ds4 Barbara Schmitt RN RN jl7 Angela Sims RN RN ea
[2020-09-16] MEDS ORDERED: D5 0.45 NS 1,000 ML IV ONE (21:34)
[2020-09-16] MEDS ORDERED: POTASSIUM 25 MEQ EFFERV TAB ONE (21:34)
--- NOTE | 2020-09-17 00:35 | P.HP ---
Certification for Inpatient Patient admitted to: Observation With expected LOS: <2 Midnights Practitioner: I am a practitioner with admitting privileges, knowledge of patient current condition, hospital course, and medical plan of care. Services: Services provided to patient in accordance with Admission requirements found in Title 42 Section 412.3 of the Code of Federal Regulations Patient History Date of Service: 09/17/20 Primary Care Provider: Duarte cervantes Reason for admission: Hypoglycemia History of Present Illness: 59-year-old female with history of diabetes mellitus type 2-insulin dependent, hypertension, hyperlipidemia, pancreatitis, ETOH abuse presents emergency department for hypoglycemia. Patient reports that she takes 45 units of Levemir in the morning and an additional 45 units a for blood sugar remains high, patient reports that she took for 45 units of Levemir this morning and did not eat much throughout the day. Patient also reports that she was previously alcoholic and had been clean for approximately 4 months but for the last 3-4 days she had been drinking approximately 1 pt of rum per day. Last drink was 2 days ago and reported by patient. Alcohol level 0 in the emergency department, patient does not appear intoxicated. Initial blood sugar in the emergency department was 19, patient was given amp of dextrose, sugar initially improved to 144 but quickly dropped back down to 30, patient ate chips, juice and a sandwich sugar remained in the 60s. Due to this persistent hypoglycemia ED provider wishes to admit under observation to gain control of the blood sugar. Allergies sulfamethoxazole [From Bactrim] Allergy (Intermediate, Verified 05/07/20 21:54) Rash trimethoprim [From Bactrim] Allergy (Intermediate, Verified 05/07/20 21:54) Rash Sulfa (Sulfonamide Antibiotics) Allergy (Verified 05/07/20 21:54) Unknown trazodone Allergy (Verified 05/07/20 21:54) Itching Home Medications: carvediloL [Coreg*] 12.5 mg PO BID #60 tab 11/24/15 Aspirin [Aspirin EC 81 MG] 81 mg PO DAILY #90 tablet. 01/01/18 Atorvastatin Calcium [Lipitor] 40 mg PO BEDTIME #30 tab 02/20/19 Amlodipine [Norvasc*] 10 mg PO DAILY 06/08/20 Citalopram [Celexa*] 20 mg PO DAILY 06/08/20 Doxepin HCl [Silenor] 1 tab PO DAILY 06/08/20 Fenofibrate [Tricor*] 1 tab PO DAILY 06/08/20 Hydroxyzine HCl [Atarax] 25 mg PO DAILY 06/08/20 Insulin Detemir [Levemir] 30 units SQ DAILY 06/08/20 Methocarbamol [Robaxin-750] 1 tab PO BIDP PRN 06/08/20 Omeprazole [Prilosec] 1 tab PO DAILY 06/08/20 Potassium Gluconate 550 mg PO DAILY 06/08/20 Tramadol HCl [Ultram] 50 mg PO Q8HR PRN #10 tablet 06/12/20 Albuterol Inhaler [Ventolin Inhaler*] 2 puff IH Q6H PRN hfa.aer.[id number] 07/28/20 levoFLOXacin [Levaquin] 750 mg PO DAILY 7 Days #7 tab 07/28/20 predniSONE [Prednisone*] 20 mg PO BID 3 Days #6 tab 07/28/20 - Past Medical/Surgical History Diabetic: Yes -: HTN -: Hyperlipidemia -: GERD -: Hypercholesteremia -: Tobacco abuse -: Diabetes mellitus type 2 insulin-dependent -: renal insufficiency -: -: R wrist Sx (metal plate) -: rectal polyps removed -: Left ankle orif Psychosocial/ Personal History: The patient is single. She has 1 child. Retired - Family History Sister -: Lung disease, Diabetes Notes: asthma Mother -: Heart disease, Cancer Father -: Heart disease - Social History Smoking Status: Never smoker Alcohol use: Yes CD- Drugs: Yes Caffeine use: No Place of Residence: Home Review of Systems Unremarkable Physical Examination - Physical Exam General: Alert, In no apparent distress HEENT: Atraumatic, PERRLA, Mucous membr. moist/pink Neck: Supple, 2+ carotid pulse no bruit, No LAD Respiratory: Clear to auscultation bilaterally, Normal air movement Cardiovascular: Regular rate/rhythm, Normal S1 S2 Gastrointestinal: Normal bowel sounds, No ascites, No tenderness, No masses Musculoskeletal: No tenderness Integumentary: No rashes Neurological: Normal speech, Normal strength at 5/5 x4 extr, Normal tone, Normal affect - Studies Laboratory Data (last 24 hrs) 09/16/20 18:35: Lipase 557 H 09/16/20 18:35: Magnesium 2.4 D 09/16/20 18:35: PT 11.5, INR 1.00, APTT 26.2 09/16/20 18:35: WBC 12.50 H, Hgb 13.4, Hct 40.5, Plt Count 447 H 09/16/20 18:35: Sodium 140, Potassium 2.9 L*, BUN 22 H, Creatinine 1.24, Glucose 19 L*, Total Bilirubin 1.0, AST 67 H, ALT 53, Alkaline Phosphatase 123 H Assessment and Plan - Plan Assessment Diabetes mellitus type 2-insulin dependent complicated with persistent hypoglycemia likely secondary to poor oral intake Hypertension Hyperlipidemia Alcohol use disorder Plan Diabetes mellitus type 2-insulin dependent complicated with persistent hypoglycemia likely secondary to poor oral intake: Patient ate while in the emergency department, will encourage oral intake with protein/carbohydrates. Patient reports taking either 45 or 90 units of Levemir this morning and not eating well throughout the day. Patient's blood sugar repeatedly dropped after receiving amps of dextrose and eating, patient requiring infusion of D5 to maintain blood sugar at this time. Will continue with this overnight checking blood sugar periodically to ensure no more hypoglycemia. Will feed patient for recreation hopefully be able to discontinue D5. Reviewed with patient the importance of eating after taking her insulin. DVT prophylaxis Lovenox 40 mg subcutaneous once daily. Hypertension: Obtain and continue home medications. Hyperlipidemia: Obtain and continue home medications. Alcohol use disorder: Patient requesting assistance with outpatient treatment for alcohol use disorder. enrollment services dean consulted to assist patient with additional resources upon discharge for alcohol use disorder. Q 4 and p.r.n. alcohol withdrawal assessments, p.r.n. Ativan. No signs of withdrawal at this time. Last drink approximately 2 days ago. Discharge Plan: Home Plan to discharge in: 24 Hours - Advance Directives Does patient have a Living Will: No Does patient have a Durable POA for Healthcare: No - Code Status/Comfort Care Code Status Assessed: Yes (FC) Critical Care: No Time Spent Managing Pts Care (In Minutes): 55
[2020-09-17] MEDS ORDERED: METOCLOPRAMIDE 10 MG/2mL INJ ONE (00:38)
[2020-09-17] MEDS ORDERED: ACETAMINOPHEN 500 MG TAB PO PRN (03:03)
[2020-09-17] MEDS ORDERED: D50W 25 GM/50 ML SYRINGE IV PRN (03:03)
[2020-09-17] MEDS: D5 0.45 NS 1,000 ML IV SCH ×2 (03:03→16:23)
[2020-09-17] MEDS ORDERED: ONDANSETRON 4 MG/2 ML VIAL IV PRN ×2 (03:03→13:30)
[2020-09-17] MEDS: LORazepam 2 MG/ML VIAL IV PRN ×3 (03:58→23:34)
[2020-09-17 04:14] LABS: Urine Appearance CLEAR; Urine Blood NEGATIVE (NEG); Urine Color YELLOW; Urine Glucose NEGATIVE (NEG); Urine Protein TRACE (NEG); Urine Specific Gravity 1.025 (1.005-1.030)
[2020-09-17 04:24] LABS: Barbiturates NEGATIVE (NEGATIVE); Benzodiazepines NEGATIVE (NEGATIVE); Cocaine NEGATIVE (NEGATIVE); METHAMPHETAM NEGATIVE (NEGATIVE); Methadone NEGATIVE (NEGATIVE); Opiates NEGATIVE (NEGATIVE); Phencyclidine NEGATIVE (NEGATIVE); THC Cannibis POSITIVE (NEGATIVE)
[2020-09-17 04:46] LABS: Urine Bilirubin NEGATIVE (NEG); Urine Microscopic Reflex ORDER UMIC
[2020-09-17 05:52] LABS: Urine Bacteria <20 /HPF (<20); Urine RBC <5 /HPF (NONE SEEN)
[2020-09-17 06:08] LABS: Absolute Lymphocytes (CBC) 2.4 K/uL (0.7-4.9); Basophils % 0.1 % (0-1.3); Hematocrit 34.7 % (36.0-45.0); Lymphocytes % 26.5 % (15.3-44.8); MPV 8.3 fL (7.6-11.3); RBC Red Blood Cell Count 3.74 M/uL (3.86-4.86)
[2020-09-17 06:57] VITALS: BMI 41.1
[2020-09-17 07:33] LABS: Albumin 3.3 g/dL (3.4-5.0); Bilirubin Total 0.8 mg/dL (0.2-1.0); Protein, Total 6.4 g/dL (6.4-8.2); Thyroid Stimulating Hormone 2.56 uIU/mL (0.360-3.740)
[2020-09-17 07:35] LABS: Potassium 2.7 mmol/L (3.5-5.1)
[2020-09-17] MEDS ORDERED: POTASSIUM 25 MEQ EFFERV TAB PO ONE (07:52)
[2020-09-17] MEDS ORDERED: POTASSIUM CL SA 10 MEQ TAB PO ONE (07:53)
--- NOTE | 2020-09-17 08:31 | P.PN ---
Subjective Date of Service: 09/17/20 Primary Care Provider: Duarte cervantes Chief Complaint: Hypoglycemia Subjective: Improving, Doing well Physical Examination - Vital Signs Temperature: 99.4 F Blood Pressure: 107/58 Pulse: 86 Respirations: 18 Pulse Ox (%): 92 - Studies Laboratory Data (last 24 hrs) 09/16/20 18:35: Lipase 557 H 09/16/20 18:35: Magnesium 2.4 D 09/16/20 18:35: PT 11.5, INR 1.00, APTT 26.2 09/16/20 18:35: WBC 12.50 H, Hgb 13.4, Hct 40.5, Plt Count 447 H 09/16/20 18:35: Sodium 140, Potassium 2.9 L*, BUN 22 H, Creatinine 1.24, Glucose 19 L*, Total Bilirubin 1.0, AST 67 H, ALT 53, Alkaline Phosphatase 123 H Assessment & Plan Discharge Plan: Home Plan to discharge in: 24 Hours Physician Review Additional Text: Physical exam: Patient alert, cooperative. No acute distress noted. Heart: Regular rate rhythm Lungs: Clear to auscultation Abdomen: Soft nontender nondistended Extremities: Good range of motion to the upper lower extremities without focal deficits. Assessment Diabetes mellitus type 2-insulin dependent complicated with persistent hypoglycemia likely secondary to poor oral intake and over use of insulin Hypertension Hyperlipidemia Alcohol use disorder Hypokalemia THC use Plan Diabetes mellitus type 2-insulin dependent complicated with persistent hypoglycemia likely secondary to poor oral intake and over use of insulin: Patient reports blood sugars have been improving due to her changes in diet. Patient previously on Levemir, glipizide, and metformin. She reports that her medications have been adjusted. She was recently taken off glipizide and metformin. Patient takes Levemir 45-90 units daily. Will obtain and verify home medication. A1c obtained. She reports last A1c was around 6.3. Will need to make adjustments to her medication. If the patient is able to take good oral intake this am and blood sugar stable will hold IV fluids. Will monitor blood sugars closely over the next couple of hr after IV fluids held. If stable will consider discharge later today but will make changes to her medications. Patient will definitely need to be off glipizide and metformin. May need to hold Levemir entirely. But need to obtain home medications to determine what patient will likely require at discharge. for details. Hypertension: Obtain and verify home medication. Hyperlipidemia: Obtain and continue home medications. Alcohol use disorder: Patient requesting assistance with outpatient treatment for alcohol use disorder. client services representative consulted to assist patient with additional resources upon discharge for alcohol use disorder. Q 4 and p.r.n. alcohol withdrawal assessments, p.r.n. Ativan. No signs of withdrawal at this time. Last drink approximately 2 days ago. Hypokalemia: Will obtain and verify home medication. All placement protocol in place THC use: Patient was positive for THC. Will provide Cessation education Time Spent Managing Pts Care (In Minutes): 55
[2020-09-17] MEDS: ENOXAPARIN 40 MG/0.4 ML SQ SCH (09:04)
--- NOTE | 2020-09-17 16:49 | EKG ---
Test Date: 2020-09-16 Test Time: 17:57:01 Commercial Project Manager: GABBY MEASUREMENT RESULTS: Intervals: Rate: 87 NC: 178 QRSD: 72 QT: 420 QTc: 505 [place]: P: 70 NC: 178 QRS: 31 T: 68 INTERPRETIVE STATEMENTS: Normal sinus rhythm Prolonged QT Abnormal ECG Compared to ECG 07/26/2020 20:19:27 Myocardial infarct finding no longer present Electronically Signed On 09-17-20 16:47:47 CDT by Doug Gold
--- NOTE | 2020-09-17 17:39 | P.DS ---
Admission Date: 09/17/20 Discharge Date: 09/17/20 Primary Care Provider: Duarte cervantes Disposition: ROUTINE DISCHARGE Discharge Condition: GOOD Reason for Admission: Hypoglycemia Consultations: none Procedures: COVID: Negative CT Head/neck: FINDINGS: CT HEAD WITHOUT CONTRAST: No acute hemorrhage, hydrocephalus or extra-axial collection is identified.No areas of brain edema or midline shift. The paranasal sinuses and mastoids are clear.The calvarium is intact. CT CERVICAL SPINE WITHOUT CONTRAST: No fracture or subluxation.Mild degenerative change involves the lower cervical spine.No prevertebral soft tissues swelling is identified. IMPRESSION: No acute intracranial or cervical spine findings. Chest xray: FINDINGS: Portable technique limits examination quality. The lungs are mildly emphysematous but grossly clear. The heart is normal in size. No displaced fractures.Chronic right AC joint separation. IMPRESSION: No acute intrathoracic process suspected. Medical Problem List: Diabetes mellitus type 2-insulin dependent complicated with persistent hypoglycemia likely secondary to poor oral intake and over use of insulin Hypertension Hyperlipidemia Alcohol use disorder Hypokalemia THC use Brief History of Present Illness: 59-year-old female with history of diabetes mellitus type 2-insulin dependent, hypertension, hyperlipidemia, pancreatitis, ETOH abuse presents emergency department for hypoglycemia. Patient reports that she takes 45 units of Levemir in the morning and an additional 45 units a for blood sugar remains high, patient reports that she took for 45 units of Levemir this morning and did not eat much throughout the day. Patient also reports that she was previously alcoholic and had been clean for approximately 4 months but for the last 3-4 da ys she had been drinking approximately 1 pt of rum per day. Last drink was 2 days ago and reported by patient. Alcohol level 0 in the emergency department, patient does not appear intoxicated. Initial blood sugar in the emergency department was 19, patient was given amp of dextrose, sugar initially improved to 144 but quickly dropped back down to 30, patient ate chips, juice and a sandwich sugar remained in the 60s. Due to this persistent hypoglycemia ED provider wishes to admit under observation to gain control of the blood sugar. Hospital Course: Patient presented with hypoglycemia. Patient previously on Levemir, glipizide and metformin. Patient had been taking extra doses of Levemir. Patient was found to be hypoglycemic. Medications have been held. Patient received IV fluids with dextrose. Sugar now improved. Hemoglobin A1c obtained. Pending at discharge. Blood sugars also improved. Patient able tolerate her diet. Medications have been adjusted. At discharge will recommend to discontinue glipizide and metformin. Patient may continue with Levemir but at 10 units subcu daily. Recommend to monitor blood sugars at least twice daily. Recommend to maintain blood sugar less than 140 fasting and less than 200 after meals. Patient will need to eat at least 3 meals a day especially on insulin. If blood sugars remain below 100 she is to hold Levemir. If blood sugars remain above 200 consistently then Levemir can be increased by 1-2 units. Recommend follow up with her PCP within 1 week to follow up this hospitalization and continue her care. Education on hypoglycemia and diabetes will be provided. Patient with hypertension. Blood pressures have been well controlled off medication. Recommend to hold medication at this time. Patient previously on Norvasc 10 mg daily and carvedilol 12.5 mg 1 pill twice daily. If blood pressures increase then medications can be restarted. Recommend to maintain blood pressure less than 130/80. Recommend follow up with PCP to further monitor and address. Patient with hyperlipidemia. At discharge patient will continue with tricor 145 mg daily and Lipitor 40 mg daily. Recommend follow up with PCP to further monitor and adjust medication. Patient with alcohol use. Alcohol cessation education provided. Will provide education on alcoholic anonymous. Recommend cessation at discharge. Patient was positive for THC. Cessation education provided. Patient with hypokalemia. Potassium was replaced. Recommend increase potassium in diet. Patient also had some nausea and vomiting. This may be related to GERD or diabetic gastroparesis. Recommend to continue Prilosec 40 mg daily. Increased hyperemesis may also be related to THC. Recommend to decrease THC use. If THC hyperemesis and GERD ruled out then may need to be further evaluated for diabetic gastroparesis. Recommend follow up with GI to further address. Vital Signs/Physical Exam: Temp Pulse Resp BP Pulse Ox 99.1 F 81 22 H 112/70 90 L 09/17/20 12:00 09/17/20 12:09/17/20 12:00 09/17/20 12:09/17/20 12:00 General: Alert, In no apparent distress, Oriented x3, Cooperative HEENT: Atraumatic Neck: Supple Respiratory: Clear to auscultation bilaterally, Normal air movement Cardiovascular: Normal pulses, Regular rate/rhythm Gastrointestinal: Normal bowel sounds, Soft and benign, Non-distended, No tenderness, No masses, No rebound, No guarding Integumentary: No tenderness/swelling, No erythema, No warmth, No cyanosis Neurological: Normal speech, Normal strength at 5/5 x4 extr, Normal tone, Normal affect Laboratory Data at Discharge: WBC 9.00 K/uL (4.3-10.9) D 09/17/20 05:35 Hgb 11.7 g/dL (12.0-15.0) L 09/17/20 05:35 Hct 34.7 % (36.0-45.0) L 09/17/20 05:35 Plt Count 347 K/uL (152-406) D 09/17/20 05:35 PT 11.5 SECONDS (9.5-12.5) 09/16/20 18:35 INR 1.00 09/16/20 18:35 APTT 26.2 SECONDS (24.3-36.9) 09/16/20 18:35 Sodium 142 mmol/L (136-145) 09/17/20 05:35 Potassium 3.5 mmol/L (3.5-5.1) 09/17/20 15:16 BUN 18 mg/dL (7-18) 09/17/20 05:35 Creatinine 0.97 mg/dL (0.55-1.3) 09/17/20 05:35 Glucose 95 mg/dL (74-106) 09/17/20 05:35 Magnesium 2.0 mg/dL (1.8-2.4) 09/17/20 05:35 Total Bilirubin 0.8 mg/dL (0.2-1.0) 09/17/20 05:35 AST 52 U/L (15-37) H 09/17/20 05:35 ALT 43 U/L (12-78) 09/17/20 05:35 Alkaline Phosphatase 92 U/L (45-117) 09/17/20 05:35 Lipase 557 U/L (73-393) H 09/16/20 18:35 Home Medications: Aspirin [Aspirin EC 81 MG] 81 mg PO DAILY #90 tablet. 01/01/18 Atorvastatin Calcium [Lipitor] 40 mg PO BEDTIME #30 tab 02/20/19 Citalopram [Celexa*] 20 mg PO DAILY 06/08/20 Fenofibrate [Tricor*] 1 tab PO DAILY 06/08/20 Omeprazole [Prilosec] 1 tab PO DAILY 06/08/20 Albuterol Inhaler [Ventolin Inhaler*] 2 puff IH Q6H PRN hfa.aer.[id number] 07/28/20 Insulin Detemir [Levemir] 10 units SQ DAILY #1 ml 09/17/20 New Medications: Insulin Detemir [Levemir] 10 units SQ DAILY #1 ml Physician Discharge Instructions: Patient presented with hypoglycemia. Patient previously on Levemir, glipizide and metformin. Patient had been taking extra doses of Levemir. Patient was found to be hypoglycemic. Medications have been held. Patient received IV fluids with dextrose. Sugar now improved. Hemoglobin A1c obtained. Pending at discharge. Blood sugars also improved. Patient able tolerate her diet. Medications have been adjusted. At discharge will recommend to discontinue glipizide and metformin. Patient may continue with Levemir but at 10 units subcu daily. Recommend to monitor blood sugars at least twice daily. Recommend to maintain blood sugar less than 140 fasting and less than 200 after meals. Patient will need to eat at least 3 meals a day especially on insulin. If blood sugars remain below 100 she is to hold Levemir. If blood sugars remain above 200 consistently then Levemir can be increased by 1-2 units. Recommend follow up with her PCP within 1 week to follow up this hospitalization and continue her care. Education on hypoglycemia and diabetes will be provided. Patient with hypertension. Blood pressures have been well controlled off medication. Recommend to hold medication at this time. Patient previously on Norvasc 10 mg daily and carvedilol 12.5 mg 1 pill twice daily. If blood pressures increase then medications can be restarted. Recommend to maintain blood pressure less than 130/80. Recommend follow up with PCP to further monitor and address. Patient with hyperlipidemia. At discharge patient will continue with tricor 145 mg daily and Lipitor 40 mg daily. Recommend follow up with PCP to further monitor and adjust medication. Patient with alcohol use. Alcohol cessation education provided. Will provide education on alcoholic anonymous. Recommend cessation at discharge. Patient was positive for THC. Cessation education provided. Patient with hypokalemia. Potassium was replaced. Recommend increase potassium in diet. Patient also had some nausea and vomiting. This may be related to GERD or diabetic gastroparesis. Recommend to continue Prilosec 40 mg daily. Increased hyperemesis may also be related to THC. Recommend to decrease THC use. If THC hyperemesis and GERD ruled out then may need to be further evaluated for diabetic gastroparesis. Recommend follow up with GI to further address. Diet: ADA Activity: Ad sunitha Followup: Unknown,U [Primary Care Provider] - Time spent managing pt's care (in minutes): 55
[2020-09-18] MEDS: LORazepam 2 MG/ML VIAL IV PRN (01:39)
[2020-09-18] MEDS: ENOXAPARIN 40 MG/0.4 ML SQ SCH (07:46)
--- NOTE | 2020-09-18 09:11 | P.DS ---
Admission Date: 09/17/20 Discharge Date: 09/18/20 Primary Care Provider: Duarte cervantes Disposition: ROUTINE DISCHARGE Discharge Condition: GOOD Reason for Admission: Hypoglycemia Consultations: none Procedures: COVID: Negative CT Head/neck: FINDINGS: CT HEAD WITHOUT CONTRAST: No acute hemorrhage, hydrocephalus or extra-axial collection is identified.No areas of brain edema or midline shift. The paranasal sinuses and mastoids are clear.The calvarium is intact. CT CERVICAL SPINE WITHOUT CONTRAST: No fracture or subluxation.Mild degenerative change involves the lower cervical spine.No prevertebral soft tissues swelling is identified. IMPRESSION: No acute intracranial or cervical spine findings. Chest xray: FINDINGS: Portable technique limits examination quality. The lungs are mildly emphysematous but grossly clear. The heart is normal in size. No displaced fractures.Chronic right AC joint separation. IMPRESSION: No acute intrathoracic process suspected. Medical Problem List: Diabetes mellitus type 2-insulin dependent complicated with persistent hypoglycemia likely secondary to poor oral intake and over use of insulin Hypertension Hyperlipidemia Alcohol use disorder Hypokalemia THC use Brief History of Present Illness: 59-year-old female with history of diabetes mellitus type 2-insulin dependent, hypertension, hyperlipidemia, pancreatitis, ETOH abuse presents emergency department for hypoglycemia. Patient reports that she takes 45 units of Levemir in the morning and an additional 45 units a for blood sugar remains high, patient reports that she took for 45 units of Levemir this morning and did not eat much throughout the day. Patient also reports that she was previously alcoholic and had been clean for approximately 4 months but for the last 3-4 da ys she had been drinking approximately 1 pt of rum per day. Last drink was 2 days ago and reported by patient. Alcohol level 0 in the emergency department, patient does not appear intoxicated. Initial blood sugar in the emergency department was 19, patient was given amp of dextrose, sugar initially improved to 144 but quickly dropped back down to 30, patient ate chips, juice and a sandwich sugar remained in the 60s. Due to this persistent hypoglycemia ED provider wishes to admit under observation to gain control of the blood sugar. Hospital Course: Patient presented with hypoglycemia. Patient previously on Levemir, glipizide and metformin. Patient had been taking extra doses of Levemir. Patient was found to be hypoglycemic. Medications have been held. Patient received IV fluids with dextrose. Sugar now improved. Hemoglobin A1c obtained. Pending at discharge. Blood sugars also improved. Patient able tolerate her diet. Medications have been adjusted. At discharge will recommend to discontinue glipizide and metformin. Patient may continue with Levemir but at 10 units subcu daily. Recommend to monitor blood sugars at least twice daily. Recommend to maintain blood sugar less than 140 fasting and less than 200 after meals. Patient will need to eat at least 3 meals a day especially on insulin. If blood sugars remain below 100 she is to hold Levemir. If blood sugars remain above 200 consistently then Levemir can be increased by 1-2 units. Recommend follow up with her PCP within 1 week to follow up this hospitalization and continue her care. Education on hypoglycemia and diabetes will be provided. Discharge was held yesterday due to transportation. Patient now has transportation. Plan of care address in detail with patient. Patient with hypertension. Blood pressures have been well controlled off medication. Recommend to hold medication at this time. Patient previously on Norvasc 10 mg daily and carvedilol 12.5 mg 1 pill twice daily. If blood pressures increase then medications can be restarted. Recommend to maintain blood pressure less than 130/80. Recommend follow up with PCP to further monitor and address. Patient with hyperlipidemia. At discharge patient will continue with tricor 145 mg daily and Lipitor 40 mg daily. Recommend follow up with PCP to further monitor and adjust medication. Patient with alcohol use. Alcohol cessation education provided. Will provide education on alcoholic anonymous. Recommend cessation at discharge. Patient was positive for THC. Cessation education provided. Patient with hypokalemia. Potassium was replaced. Recommend increase potassium in diet. Patient also had some nausea and vomiting. This may be related to GERD or diabetic gastroparesis. Recommend to continue Prilosec 40 mg daily. Increased hyperemesis may also be related to THC. Recommend to decrease THC use. If THC hyperemesis and GERD ruled out then may need to be further evaluated for diabetic gastroparesis. Recommend follow up with GI to further address. Vital Signs/Physical Exam: Temp Pulse Resp BP Pulse Ox 98.3 F 83 18 136/80 93 09/18/20 04:00 09/18/20 04:00 09/18/20 04:00 09/18/20 04:00 09/18/20 04:00 General: Alert, In no apparent distress, Oriented x3, Cooperative HEENT: Atraumatic Neck: Supple Respiratory: Clear to auscultation bilaterally, Normal air movement Cardiovascular: Normal pulses, Regular rate/rhythm Gastrointestinal: Normal bowel sounds, Soft and benign, Non-distended Musculoskeletal: No erythema, No tenderness, No warmth Neurological: Normal speech, Normal strength at 5/5 x4 extr, Normal tone, Normal affect Laboratory Data at Discharge: WBC 9.00 K/uL (4.3-10.9) D 09/17/20 05:35 Hgb 11.7 g/dL (12.0-15.0) L 09/17/20 05:35 Hct 34.7 % (36.0-45.0) L 09/17/20 05:35 Plt Count 347 K/uL (152-406) D 09/17/20 05:35 PT 11.5 SECONDS (9.5-12.5) 09/16/20 18:35 INR 1.00 09/16/20 18:35 APTT 26.2 SECONDS (24.3-36.9) 09/16/20 18:35 Sodium 142 mmol/L (136-145) 09/17/20 05:35 Potassium 3.5 mmol/L (3.5-5.1) 09/17/20 15:16 BUN 18 mg/dL (7-18) 09/17/20 05:35 Creatinine 0.97 mg/dL (0.55-1.3) 09/17/20 05:35 Glucose 95 mg/dL (74-106) 09/17/20 05:35 Magnesium 2.0 mg/dL (1.8-2.4) 09/17/20 05:35 Total Bilirubin 0.8 mg/dL (0.2-1.0) 09/17/20 05:35 AST 52 U/L (15-37) H 09/17/20 05:35 ALT 43 U/L (12-78) 09/17/20 05:35 Alkaline Phosphatase 92 U/L (45-117) 09/17/20 05:35 Lipase 557 U/L (73-393) H 09/16/20 18:35 Home Medications: Aspirin [Aspirin EC 81 MG] 81 mg PO DAILY #90 tablet. 01/01/18 Atorvastatin Calcium [Lipitor] 40 mg PO BEDTIME #30 tab 02/20/19 Citalopram [Celexa*] 20 mg PO DAILY 06/08/20 Fenofibrate [Tricor*] 1 tab PO DAILY 06/08/20 Omeprazole [Prilosec] 1 tab PO DAILY 06/08/20 Albuterol Inhaler [Ventolin Inhaler*] 2 puff IH Q6H PRN [id number] 07/28/20 Insulin Detemir [Levemir] 10 units SQ DAILY #1 ml 09/17/20 New Medications: Insulin Detemir [Levemir] 10 units SQ DAILY #1 ml Physician Discharge Instructions: Patient presented with hypoglycemia. Patient previously on Levemir, glipizide and metformin. Patient had been taking extra doses of Levemir. Patient was found to be hypoglycemic. Medications have been held. Patient received IV fluids with dextrose. Sugar now improved. Hemoglobin A1c obtained. Pending at discharge. Blood sugars also improved. Patient able tolerate her diet. Medications have been adjusted. At discharge will recommend to discontinue glipizide and metformin. Patient may continue with Levemir but at 10 units subcu daily. Recommend to monitor blood sugars at least twice daily. Recommend to maintain blood sugar less than 140 fasting and less than 200 after meals. Patient will need to eat at least 3 meals a day especially on insulin. If blood sugars remain below 100 she is to hold Levemir. If blood sugars remain above 200 consistently then Levemir can be increased by 1-2 units. Recommend follow up with her PCP within 1 week to follow up this hospitalization and continue her care. Education on hypoglycemia and diabetes will be provided. Patient with hypertension. Blood pressures have been well controlled off medication. Recommend to hold medication at this time. Patient previously on Norvasc 10 mg daily and carvedilol 12.5 mg 1 pill twice daily. If blood pressures increase then medications can be restarted. Recommend to maintain blood pressure less than 130/80. Recommend follow up with PCP to further monitor and address. Patient with hyperlipidemia. At discharge patient will continue with tricor 145 mg daily and Lipitor 40 mg daily. Recommend follow up with PCP to further monitor and adjust medication. Patient with alcohol use. Alcohol cessation education provided. Will provide education on alcoholic anonymous. Recommend cessation at discharge. Patient was positive for THC. Cessation education provided. Patient with hypokalemia. Potassium was replaced. Recommend increase potassium in diet. Patient also had some nausea and vomiting. This may be related to GERD or diabetic gastroparesis. Recommend to continue Prilosec 40 mg daily. Increased hyperemesis may also be related to THC. Recommend to decrease THC use. If THC hyperemesis and GERD ruled out then may need to be further evaluated for diabetic gastroparesis. Recommend follow up with GI to further address. Diet: ADA Activity: Ad sunitha Followup: Unknown,U [Primary Care Provider] - Time spent managing pt's care (in minutes): 55
[2020-09-18 09:20] VITALS: BP 125/74; TEMP 97.8
[2020-09-18 11:19] VITALS: O2SAT 90
== END 2020-09-18 12:45 | disposition home or self-care (01) | DRG 918 ==
LOC: ER 18:29 → ERHOLD 22:25 → 4TH 09-17 02:03 → OBSVTOIN 09-17 08:26
PROVIDERS: ADMIT Family Medicine; ATTEND Family Medicine
DX: T38.3X1A Poisoning by insulin and oral hypoglycemic [antidiabetic] drugs, accidental (unintentional), initial encounter (principal); E11.649 Type 2 diabetes mellitus with hypoglycemia without coma; E11.43 Type 2 diabetes mellitus with diabetic autonomic (poly)neuropathy; K31.84 Gastroparesis; I10 Essential (primary) hypertension; E78.5 Hyperlipidemia, unspecified; E87.6 Hypokalemia; K21.9 Gastro-esophageal reflux disease without esophagitis; F17.210 Nicotine dependence, cigarettes, uncomplicated; Z88.1 Allergy status to other antibiotic agents; Z88.8 Allergy status to other drugs, medicaments and biological substances; Z90.49 Acquired absence of other specified parts of digestive tract; Z79.82 Long term (current) use of aspirin; Z79.52 Long term (current) use of systemic steroids; Z79.4 Long term (current) use of insulin; Z79.899 Other long term (current) drug therapy; Z20.822 Contact with and (suspected) exposure to COVID-19
CPT/HCPCS: 36415; 70450; 71045; 72125; 80048; 80053; 80076; 80307; 80320; 80329; 81003; 81015; 82947; 83036; 83690; 83735; 83880; 84132; 84439; 84443; 84484; 85025; 85610; 85730; 93005; 96365; 96366; 96375; 97110; 97116; 97161; 97530; 99291; 99292; G0378; J1650; J2405; J2765; J3411; J3480; J7030; J7799; U0003

== ENCOUNTER 2021-01-12 21:04 | Inpatient (IN) | payer SELFPAY ==
--- OUTSIDE RECORDS SUMMARY | 2021-01-12 21:08 | XMS REPORT | Continuity of Care Document ---
:1960 Author Organization [facility] t Address [address] [place] [address] Care Team Providers Name Role Phone KAREN CHIANG Attending Clinician Unavailable Teqwimdeb Attending Clinician KAREN CHIANG Admitting Clinician Un[facility] Ad[facility] Clinician Problems Condition Condition Condition Status Onset Resolution Last Treating Co mments Source Name Details Category Date Date Treatment Clinician Date Type 2 Type 2 Disease Active 2018- [facility] diabetes diabetes [facility]08 [facility] mellitus mellitus 00:00: Medica l 00 [place] Hypokalemi Hypokalemi Disease Active [facility] a 12[facility]08 [facility] - 00:00: Medical 00 [place] Hypomagnes Hypomagnes Disease Active [facility] emia emia 12-08 [facility] - 00:00: Medical 00 [place] Alcohol Alcohol Disease Active [facility] abuse abuse 12-08 [facility] - 00:00: Medical 00 [place] Essential Essential Disease Active [facility] hypertensi [...] 2014-11-05 Memoria IS 4 21:50:00 l 03:39: Tobias PANCREATIT 00 IS Active 5 [employer] Diverticul Problem Resolve 2014 Memoria itis d 04:20:14 l (disorder) Sebastian n Diverticul itis (disorder) Resolved Problem 2014 [employer] Hypertensi Problem Resolve 2014 Memoria ve d 04:20:14 l disorder, Tobias systemic Hypertensi arterial ve (disorder) disorder, systemic arterial (disorder) Resolved Problem 2014 [employer] CHRONIC Diagnosis Active 2014-11-05 Me moria PANCREATIT 21:50:00 l IS CHRONIC Tobias PANCREATIT IS Active [employer] Type 2 Type [address] [facility] diabetes diabetes [facility] - mellitus mellitus Memori a without without l complicati complicati Ou tpati on on ent Clinics History of History of Problem Active [facility] hypokalemi hypokalemi Carmen kes - a a Memoria l [facility] Pain in Pain in [...] St on on [facility] - Memoria l [facility] Depression Depression Problem [facility] Allergic Allergic Problem Active [facility] rhinitis, rhinitis, [facility] - seasonal seasonal Memori a l [facility] Allergies, Adverse Reactions, Alerts Allergy Allergy Status Severity Reaction(s) Onset Inactive Treating Comm ents Source Name Type Date Date Clinician Sulfamet Propensi Active Rash [facility] hox[facility] ty to 12-07 [facility] -[facility] adverse 00:00: Medical oprim reaction 00 Center s Sulfa Adverse Active Info Not [facility] Reaction Available [facility] Bactrim Bactrim Active Nikolai Collado Social History Social Habit Start Date Stop Date Quantity Comments Source Sex Assigned At [facility] Alcohol Comment 2018-12-07 2018-12-07 [facility] run, last drank Medical C enter 12/06/18 Cigarettes smoked 2018-12-07 2018-12-07 [facility] - current (pack per 00:00:00 00:00:00 [facility] Center day) - Reported Cigarette 2018-12-07 2018-12-07 [facility] - pack-years 00:00:00 00:00:00 [facility] Tobacco use and 2018-12-07 2018-12-07 Never used [facility] - exposure 00:00:00 00:00:00 [facility] Alcohol intake 2018-12-07 2018-12-07 Current drinker of [facility] - 00:00:00 00:00:00 alcohol (finding) [facility] Tobacco Comment 2018-12-07 2018-12-07 1 pack every 2 days [facility] - 00:00:00 00:00:00 for the last 10 Medical C enter years Social History 2014-10-30 2014-10-30 [facility] 10:31:19 10:31:19 Tobias Smoking Status Start Date Stop Date Source Current some day smoker 2018-12-07 00:00:00 [facility] Medications Ordered Filled Start Stop Current Ordering Indication Dosage Frequency Signature Comments Components Source Medication Medication Date Date Medication? Clinician (SIG) Name Name ranitidine 2019- Yes 150mg Q.5D Take [address] (ZANTAC) 6-10 mg by [facility] - 150 MG 15:47: mouth 2 Medical tablet 46 (two) Center times daily. omeprazole 2018- Yes 40mg QD Take [address] (PRILOSEC) 6-10 by mouth [facility] - 40 MG 15:47: daily. Medical capsule 46 Center potassium Yes Take by [facility] S t gluconate 6-10 mouth. [facility] - [...] 23 11-01 (Same as: l 17:21: Pneumovax [place] 00 23) Refrigerat e tramadol Yes 100.4 F, Abad charlene hydrochlori 11-01 X 4 day, # l de 50 MG 15:11: 30 tab, 0 Herm debbie Oral Tablet 00 Refill(s) [Ultram] Lisinopril No Notes: Memor ia 4-30 (Same as: l 14:00: Prinivil, [place] 00 Zestril) Hydrochloro No Notes: Abad charlene thiazide 4-30 (Same as: l 14:00: Microzide) Tobias 00 With food. pneumococca Yes Notes: Abad charlene l capsular 4-30 (Same as: l polysacchar 14:00: Pneumovax H [...] - (Same as: l 15:30: K-Dur 20) [place] 00 "Do Not Crush" With food and full glass of water Zofran No Notes: Memoria - (Same as: l 11:34: Zofran) MEDICATION WASTE Product Size: 4 mg Product Wasted: ___ mg Morphine No Notes: Memoria 10-30 (Same l 11:26: as:MORPhin e Sulfate) Dilaudid No 1 mg, 1 Memori a -29 mL, Route: l 11:25: IVP, Drug form: INJ, Q6H, Dosing Weight 81.932, kg, PRN Pain Score 7-10, Priority: STAT, Start date: 10/30/14 6:25:00, Duration: 30 day, Stop date: 11/29/14 6:24:00 Labetalol No Notes: Memori a - (Same as: l 11:23: Normodyne, Trandate) Push over 2 minutes Give [...] l oral tablet 10:34: BID, 0 Herm Refill(s) Hydrochloro No 12.5 mg, Me moria thiazide -29 PO, Daily, l 10:34: 0 Tobias 00 Refill(s) Lisinopril Yes 20 mg, PO, M emoria 4-29 Daily, 0 l 10:34: Refill(s) [place] 00 Vital Signs Vital Name Observation Time Observation Value Comments Source Heart Rate 2014-11-01 17:00:00 [facility] [place] Temperature Oral (F) 2014-11-01 17:00:00 98.5 F [facility] [place] Systolic (mm Hg) 2014-11-01 17:00:00 Abad rial [place]ias Diastolic (mm Hg) 2014-11-01 17:00:00 Mem orial [place] Respitory Rate 2014-11-01 17:00:00 Memori al Tobias Heart Rate 2014-11-01 13:00:00 [facility] [place] Systolic (mm Hg) 2014-11-01 13:00:00 Abad rial [place] Diastolic (mm Hg) 2014-11-01 13:00:00 Mem orial [place] Respitory Rate 2014-11-01 13:00:00 Memori al [place] Temperature Oral (F) 2014-11-01 13:00:00 98.6 F [facility] [place]ias Respitory Rate 2014-11-01 09:01:00 Memori al [place] Systolic (mm Hg) 2014-11-01 09:01:00 Abad rial [place] Diastolic (mm Hg) 2014-11-01 09:01:00 Mem orial [place]ias Temperature Oral (F) 2014-11-01 09:01:00 98 F [facility] [place] Heart Rate 2014-11-01 09:01:00 [facility] Weight 2014-10-30 10:23:00 [facility] BMI Calculated 2014-10-30 10:23:00 [facility] al Tobias Height 2014-10-30 10:23:00 162.56 cm [facility] Procedures Procedure Date / Time Performed Performing Clinician [facility] e section [facility] n Plan of Care Planned Activity Planned Date Details Comments Source Future Scheduled 2021-12-[address] [facility] - Test 00:00:00 (procedure) [code = [facility] Center 29723259] Future Scheduled 2021-03-[address] [facility] - Test 00:00:00 (Season Ended) [code = [facility] INFLUENZA VACCINE (Season Ended)] Future Scheduled 2020-07-[address] [facility] - Test 00:00:00 (12+) [code = Medical Center DEPRESSION SCREENING (12+)] Future Scheduled 2019-06-[address] Carmen kes - Test 00:00:00 measurement Medical Center (procedure) [code = 83877057] Future Scheduled 2008 SHINGLES VACCINES ([address] [facility] - Test 00:00:00 of 2) [code = SHINGLES Medic al Center VACCINES (1 of 2)] Future Scheduled 1979-11-[address] [facility] - Test 00:00:00 [facility] cervix (procedure) [code = 899857237] Future Scheduled 1977 DTAP/TDAP/TD VACCINES [facility] Test 00:00:00 (1 - Tdap) [code = Medical C enter DTAP/TDAP/TD VACCINES (1 - Tdap)] Future Scheduled 1976 HEPATITIS C SCREENING [facility] - Test 00:00:00 [code = HEPATITIS C Medical Center SCREENING] Future Scheduled 1970 COVID-19 VACCINE (1) [facility] - Test 00:00:00 [code = COVID-[address] VACCINE (1)] Future Scheduled 1968 DIABETIC EYE EXAM [facility] - Test 00:00:00 [code = DIABETIC EYE Medical Center EXAM] Future Scheduled [address] U[facility] es - Test 00:00:00 examination Medical Center (regime/therapy) [code = 069680662] Future Scheduled 1968 Urine screening for [facility] - Test 00:00:00 protein (procedure) Medical Center [code = 667646086] Future Scheduled [address] [facility] - Test 00:00:00 0-64 YRS (1 of 1 - Medical C enter PPSV23) [code = PNEUMOCOCCAL VACCINE 0-64 YRS (1 of 1 - PPSV23)] Future Scheduled [address] - Test 00:00:00 [facility] breast (procedure) [code = 882600393] Future Scheduled [address] [facility] - Test 00:00:00 [facility] colon (procedure) [code = 815288187] Encounters Start End Encounter Admission Attending Care Care Encounter Source Date/Time Date/Time Type Type Clinicians Facility Department ID 2017-12-01 2017-12-01 Outpatient Keyannabrissa Autumn [id number] 09:06:00 09:06:00 t [facility] Outpati ent Clinics 2017-11-22 2017-11-22 Outpatient Shiela Shielacristina [id number] 13:28:00 13:28:00 [facility] Outpati ent Clinics 2017-10-28 2017-10-28 Outpatient Shiela Leyva [id number] 15:25:00 15:25:00 [facility] Outpati ent Clinics 2017-10-27 2017-10-27 Outpatient Shiela Leyva [id number] 11:53:00 11:53:00 [facility] 2017-10-25 2017-10-25 Outpatient Shiela Leyva [id number] 13:30:00 13:30:00 [facility] Outpati ent Clinics 2014-10-30 2014-11-01 [id number] 05:18:00 16:02:00 Aditya 19 Results Test Description [...] NOT 1092) ACCURATE CRE ATININE CLEARANCE IN AL EDICTING GLOMERULAR FILT RATION RATE. ESTIMATED GFR IS NOT APPLICABLE FOR DIALYSIS PATIENTS. CBC W/PLT COUNT & AUTO [id number] 04:21:00 Test Item Value Reference Range Interpretation [...] PERCENT (BEAKER) (test code = 2801) POCT-GLUCOSE [id number] 22:00:00 Test Item Value Reference Range Interpretation Comments POC-GLUCOSE METER 148 mg/dL 70-110 H TESTED AT [place] [address] ([facility] (test code = [facility] 1538) [address] POCT-GLUCOSE [id number] 17:06:00 Test Item Value Reference Range Interpretation Comments POC-GLUCOSE METER 224 mg/dL 70-110 H TESTED AT [place] [address] ([facility]) (test code = [facility] 1538) [address] POCT-GLUCOSE [id number] 12:39:00 Test Item Value Reference Range Interpretation Comments POC-GLUCOSE METER 214 mg/dL 70-110 H TESTED AT [place] [address] ([facility]) (test code = [facility] 1538) [address] POCT-GLUCOSE [id number] 08:26:00 Test Item Value Reference Range Interpretation Comments POC-GLUCOSE METER 166 mg/dL 70-110 H TESTED AT [place] [address] ([facility]) (test code = [facility] 1538) [address] COMPREHENSIVE METABOLIC [id number] 05:17:00 Test Item Value Reference Range Interpretation [...] S NOT APPLICABLE FOR DIALYSIS PATIEN TS. [id number] 05:14:00 Test Item Value Reference Range Interpretation Comments PHOSPHORUS (BEAKER) (test code = 2.9 mg/dL 2.3-4.7 604) [id number] 05:14:00 Test Item Value Reference Range Interpretation Comments MAGNESIUM (BEAKER) (test code = 1.6 mg/dL 1.6-2.6 627) CBC W/PLT COUNT & AUTO [id number] 04:48:00 Test Item Value Reference Range Interpretation [...] PERCENT (BEAKER) (test code = 2801) POCT-GLUCOSE [id number] 22:42:00 Test Item Value Reference Range Interpretation Comments POC-GLUCOSE METER 184 mg/dL 70-110 H TESTED AT [facility] 6720 (BEAKER) (test code = [place] 1538) [address] POCT-GLUCOSE [id number] 18:51:00 Test Item Value Reference Range Interpretation Comments POC-GLUCOSE METER 220 mg/dL 70-110 H TESTED AT [facility] 6720 (BEAKER) (test code = GAIL [place]oll[place] 1538) [address] [id number] 16:07:00 Test Item Value Reference Range Interpretation Comments MAGNESIUM (BEAKER) (test code = 1.8 mg/dL 1.6-2.6 627) [id number] 16:07:00 Test Item Value Reference Range Interpretation Comments POTASSIUM (BEAKER) (test code = 4.1 meq/L 3.5-5.1 379) POCT-GLUCOSE [id number] 15:47:00 Test Item Value Reference Range Interpretation Comments POC-GLUCOSE METER 215 mg/dL 70-110 H TESTED AT [facility] 6720 (BEAKER) (test code = GAIL [place]ccoll[place] 1538) [address] [id number] 10:16:00 Test Item Value Reference Range Interpretation Comments MAGNESIUM (BEAKER) (test code = 1.7 mg/dL 1.6-2.6 627) POCT-GLUCOSE [id number] 09:25:00 Test Item Value Reference Range Interpretation Comments POC-GLUCOSE METER 156 mg/dL 70-110 H TESTED AT [facility] 6720 (BEAKER) (test code = GAIL Mccollum [facility] 1538) [address] BASIC METABOLIC [id number] 06:32:00 Test Item Value Reference Range Interpretation [...] PATIEN TS. CBC W/PLT COUNT & AUTO [id number] 05:42:00 Test Item Value Reference Range Interpretation [...] PERCENT (BEAKER) (test code = 2801) POCT-GLUCOSE [id number] 22:05:00 Test Item Value Reference Range Interpretation Comments POC-GLUCOSE METER 255 mg/dL 70-110 H TESTED AT [facility] 6720 ([place]) (test code = GAIL [place]ERMUDE[place] 1538) [address] MR, BRAIN, WITHOUT [id number] 19:23:00Reason for exam:->StrokeWhat is the patient's sedation [...] arteries: Normal flow-related enhancement within the bilateral APPLICATION PENETRATION TESTER P1-P2 segments without flow-limiting stenosis. Bilateral functional type health and safety advisor.Additional findings: None. MRA NECK:Common carotid arteries: Unremarkable. [...] MDReport Verified Date/Time: 12/08/2018 19:23:05 Reading Location: [address] Neuro Reading Room MR, MRA, NECK, WITHOUT IV [id number] 19:23:00FINAL REPORT MR, BRAIN, WITHOUT CONTRAST, MR, [...] arteries: Normal flow-related enhancement within the bilateral APPLICATION PENETRATION TESTER P1-P2 segments without flow-limiting stenosis. Bilateral functional type health and safety advisor.Additional findings: None. MRA NECK:Common carotid arteries: Unremarkable. [...] MDReport Verified Date/Time: 12/08/2018 19:23:05 Reading Location: [address] Neuro Reading Room MR, MRA, BRAIN, WITHOUT [id number] 19:23:00Reason for exam:->StrokeWhat is the patient's sedation [...] arteries: Normal flow-related enhancement within the bilateral APPLICATION PENETRATION TESTER P1-P2 segments without flow-limiting stenosis. Bilateral functional type health and safety advisor.Additional findings: None. MRA NECK:Common carotid arteries: Unremarkable. [...] MDReport Verified Date/Time: 12/08/2018 19:23:05 Reading Location: [address] Neuro Reading Room -GLUCOSE [id number] 19:03:00 Test Item Value Reference Range Interpretation Comments POC-GLUCOSE METER 158 mg/dL 70-110 H TESTED AT [place] [address] ([facility]) (test code = [place] 1538) [address] [id number] 17:33:00 Test Item Value Reference Range Interpretation Comments POTASSIUM (BEAKER) (test code = 4.0 meq/L 3.5-5.1 379) [id number] 17:33:00 Test Item Value Reference Range Interpretation Comments MAGNESIUM (BEAKER) (test code = 2.4 mg/dL 1.6-2.6 627) [id number] 14:55:00 Test Item Value Reference Range Interpretation Comments RPR SCREEN (BEAKER) (test code = Nonreactive Nonreactive 420) [id number] 12:28:00 Test Item Value Reference Range Interpretation Comments POTASSIUM (BEAKER) (test code = 2.9 meq/L 3.5-5.1 L 379) TROPONIN [id number] 10:59:00 Test Item Value Reference Range Interpretation [...] failure, acidosis, acute neurological disease, and persistent tachyarrhythmia.[id number] 10:50:00 Test Item Value Reference Range Interpretation Comments MAGNESIUM (BEAKER) (test code = 1.8 mg/dL 1.6-2.6 627) HEMOGLOBIN [id number] 07:49:00 Test Item Value Reference Range Interpretation Comments HEMOGLOBIN A1C (BEAKER) (test code = 8.1 % 4.3-6.1 H 368) HIV-1 ANTIGEN WITH HIV-1/2 [id number] 06:03:00 Test Item Value Reference Range Interpretation Comments HIV-1 ANTIGEN WITH HIV 1\\T\\2 Nonreactive Nonreactive ANTIBODY (2) (BEAKER) (test code = 2586) [id number] 05:54:00 Test Item Value Reference Range Interpretation Comments POTASSIUM (BEAKER) (test code = 2.8 meq/L 3.5-5.1 L 379) VITAMIN B12 AND [id number] 03:31:00 Test Item Value Reference Range Interpretation Comments VITAMIN B12 (BEAKER) (test code = 1168 pg/mL 213-816 H 774) FOLATE (BEAKER) (test code = 362) > ng/mL >=7.0 TSH/FREE T4 IF [id number] 03:24:00 Test Item Value Reference Range Interpretation Comments THYROID STIMULATING HORMONE 2.19 uIU/mL 0.35-4.94 (BEAKER) (test code = 772) BASIC METABOLIC [id number] 02:06:00 Test Item Value Reference Range Interpretation [...] m DATA TO CALCULA TE ESTIMATED GFR. [id number] 02:04:00 Test Item Value Reference Range Interpretation Comments MAGNESIUM (BEAKER) 1.5 mg/dL 1.6-2.6 L Specimen slightly (test code = 627) hemolyzed FastingLIPID [id number] 02:04:00 Test Item Value Reference Range Interpretation [...] High >=190 FastingCBC W/PLT COUNT & AUTO [id number] 01:36:00 Test Item Value Reference Range Interpretation [...] 0-1 PERCENT (BEAKER) (test code = 2801) [id number] 23:06:00 Test Item Value Reference Range Interpretation Comments ETHANOL (BEAKER) (test code = 400) < mg/dL <=10 TROPONIN [id number] 22:58:00 Test Item Value Reference Range Interpretation [...] acute neurological disease, and persistent tachyarrhythmia.BASIC METABOLIC [id number] 22:56:00 Test Item Value Reference Range Interpretation [...] DATA TO CALCULA TE ESTIMATED GFR. URINALYSIS [id number] 22:41:00 Test Item Value Reference Range Interpretation Comments RBC UA (BEAKER) (test code = 519) 1 /HPF WBC UA (BEAKER) (test code = 520) < /HPF SQUAMOUS EPITHELIAL (BEAKER) (test 7 /HPF code = 516) HYALINE CASTS (BEAKER) (test code = 2 /LPF 514) URINALYSIS WITH MICROSCOPIC IF [id number] 22:36:00 Test Item Value Reference Range Interpretation [...] SOURCE(BEAKER) (test code = 2795) BASIC METABOLIC [id number] 19:01:00 Test Item Value Reference Range Interpretation [...] m DATA TO CALCULA TE ESTIMATED GFR. [id number] 19:01:00 Test Item Value Reference Range Interpretation Comments MAGNESIUM (BEAKER) (test code = 0.7 mg/dL 1.6-2.6 LL 627) [id number] 18:58:00 Test Item Value Reference Range Interpretation Comments PHOSPHORUS (BEAKER) (test code = 3.3 mg/dL 2.3-4.7 604) HEPATIC FUNCTION [id number] 18:58:00 Test Item Value Reference Range Interpretation [...] code = 36 U/L 6-55 347) CHEM [id number] 08:47:26560Ucwnfuui HctisxuKKKYSJUQTXER4084-81-10 10:18:00 7.8[facility] JknumdgHDBVGEWJCLFZ5749-86-95 10:18:0098[facility] HermannELECTROLYTES 2014-10-31 10:18:0072[facility] AghvypmIFAHNFCEVVZO0979-10-10 10:18:003.0[facility] IihaowcPYVWZUXVGNUY7184-85-10 10:18:001.0[facility] XsuyzaeZJJUSEMOTIJU6522-80-41 10:18:0045[facility] KgxfxpwGTZHXIMCTSCA3021-83-30 10:18:0057[facility]ias KJCNQNNSUEAZ0261-37-37 10:18:0049[facility] OrtflflBYRNFKEVXHXQ1948-83-37 10:18:00 0.7Memorial ZbytvapZFSNLUBMHXDS4035-04-86 10:18:06279Krtsydgm [place] WLWVDVXHYIGH4562-71-76 10:18:000.9[facility] ThigxlxEZALPCDAGIIJ1715-48-31 10:18:0012[facility] LcsfkddJPVOQKTAGGMU8664-19-54 10:18:0013[facility] OOFVJNFGUDRD2198-78-56 10:18:0030[facility] NzzetzbRNLAMEOJEPIE1179-49-20 10:18:00 6.1[facility] IdvyogeVRHRTLSLGHDO1659-74-09 10:18:009.5[facility] UCYGNEZELFEZ2605-77-98 10:18:003.1[facility] XthtqubCFHXAJMHQR8471-82-22 10:18:00 0.2[facility] LjerathDLRDPCUKVU7701-10-82 10:18:002+ *ABN*(10/31/14 5:18 AM) [facility] VzmgyibFYBHKJDPOW3197-79-09 10:18:000.5[facility] HermannHEMATOLOGY 2014-10-31 10:18:002.3[facility] XwgyyauVMJSWEWEWI8279-20-89 10:18:001.2[facility] BtiipleDAIWYJUETT7842-54-28 10:18:000.3[facility] OalcjjvLGEZCBDYZW4037-77-19 10:18:006.1[facility] XrxpzisGXDAGYAERA5173-24-23 10:18:006.1[facility] [place] FKRITOFQRS7211-81-54 10:18:0015.1[facility] MyrfriwSKWSXRXFDT1220-22-91 10:18:00 76.2[facility] HgnphtnQSAZMEHULP1114-99-61 10:18:0033.9[facility] HermannHEMATOLOGY 2014-10-31 10:18:09618.7[facility] VcphcudKSNFQWBBWQ5191-94-03 10:18:0035.5 Memorial WvgdoaoLDPIBFDGVX1810-29-87 10:18:0012.0[facility] HermannHEMATOLOGY 2014-10-31 10:18:008.0[facility] IyiujtbZEXWRFVSQR7165-48-53 10:18:003.39[facility] FhuudkhGALPCXFDIL6882-85-84 10:18:72631Otarygqy JqiciiuJCLRKTYBGX1968-26-92 10:18:009.5[facility] RlcnjeiLKLADMYQUU6534-19-07 10:18:0012.7[facility] PZIEXROOTL2074-30-25 10:18:00 Test Item Value Reference Range Interpretation Comments MCH (test code = MCH) 35.5 pg 27.0-31.0 Memorial AdhgxspWIYTMW7325-24-56 10:18:0077[facility] BzdqwmjSPHMYI8252-11-97 10:18:17278Cigzsohm KdjjxbbDBHMSC0991-77-96 10:18:0067[facility] HermannLIPIDS 2014-10-31 10:18:0082[facility] BhtsbipUTUDBE2629-29-28 10:18:002.23Mem[facility] KxphkzrLQDWVU8892-61-79 10:18:0013[facility] HermannCHEM MHGGR3409-37-92 10:18:00 660[facility] AuakamrSVALDFZGAHPY9717-88-85 10:18:11038Jsxiagrg [place] LZQHKLFSYKFD9794-32-75 10:18:003.5[facility] QfbnbuuHGIWKVAZEQ3909-43-37 12:48:00 20.3[facility] TmxtzhpZCAIXPDCSF5227-96-95 12:48:0070.9[facility] HermannHEMATOLOGY 2014-10-30 12:48:0012.9[facility] FnbnyxlWYGFFXLKAE4089-14-04 12:48:0012.8[facility] NxfegngCAJELZPSUE1014-04-70 12:48:003.56[facility] AdhbzbdSLBAOZPXRP3664-65-31 12:48:008.3[facility] LeorpmcGPNJQZZMWS0245-59-65 12:48:69264Nrgopmqp Tobias OKWEQSZIRD3909-14-51 12:48:25227.3[facility] DiaxizeKQNLZCCNKU1302-71-24 12:48:00 36.8[facility] FwawfybHSYWGKPGFT4070-30-01 12:48:0034.9[facility] HermannHEMATOLOGY 2014-10-30 12:48:00 Test Item Value Reference Range Interpretation Comments MCH (test code = MCH) 36.1 pg 27.0-31.0 Memorial KidytcmYNGFNIAGHY4597-54-69 12:48:007.8[facility] HermannCHEM PANEL 2014-10-30 12:48:312426Sdkeenfb HermannCHEM UKOAY6288-17-80 12:48:0050[facility] HermannCHEM XNJQR6135-74-34 12:48:001.0[facility] HermannCHEM BDQGD6696-96-69 12:48:003.6[facility] HermannCHEM VVKGM7752-83-62 12:48:0033[facility] HermannCHEM XNLSM0504-93-08 12:48:006.4[facility] HermannCHEM QIHPE1614-04-17 12:48:0084 [facility] HermannCHEM WAIKZ0486-68-78 12:48:0092[facility] HermannCHEM PANEL 2014-10-30 12:48:88899Hjdwuyvf HermannCHEM NXPCZ7227-49-29 12:48:0030[facility] HermannCHEM JGGJF7332-26-61 12:48:0046[facility] HermannCHEM HTCEC6903-00-48 12:48:003.1[facility] HermannCHEM OWQZI7393-01-32 12:48:008.3[facility] HermannCHEM FBXGY0820-40-06 12:48:0096[facility] HermannCHEM JPLTN7662-22-12 12:48:93800 [facility] HermannCHEM VHBPN2314-86-06 12:48:001.3[facility] HermannCHEM PANEL 2014-10-30 12:48:002.8[facility] Herm[facility]CHE[facility] VQYOJ3503-92-65 12:48:001.3[facility]ann[facility] ERJLQ6161-26-31 12:48:0023[facility]annCHE[facility] MFHWG3970-02-48 12:48:0010.1[facility] EmxexouFUZLXYRLZU9162-83-79 12:48:001+ *ABN*(10/30/14 7:48 AM)[facility] VdftyliPYZWNJBIXS5899-42-17 12:48:005.5[facility] HermannHEMATOLOGY 2014-10-30 12:48:000.7[facility] TvnikpdVAHQYSYGVI4009-39-34 12:48:001.4[facility] SwraiozYXYHBQXEKS6224-70-11 12:48:000.1[facility] GdlhchxWSZGLCIILR9053-58-14 12:48:000.1[facility] AunkorfTIVXUQDVJC7295-92-80 12:48:001.6[facility] CCXTPMORLQ5314-83-13 12:48:000.5[facility] DygwjoiYKTKXNONQK8434-34-92 12:48:006.7 [facility]
[2021-01-12 22:14] LABS: Absolute Lymphocytes (CBC) 1.9 K/uL (0.7-4.9); Basophils % 0.3 % (0-1.3); Hematocrit 47.6 % (36.0-45.0); Lymphocytes % 12.2 % (15.3-44.8); RBC Red Blood Cell Count 5.14 M/uL (3.86-4.86)
[2021-01-12] MEDS ORDERED: NA CHLORIDE 0.9% 1,000 ML ONE (22:23)
[2021-01-12] MEDS ORDERED: MORPHINE 4 MG/ML SYR ONE ×2 (22:23→23:28)
[2021-01-12] MEDS ORDERED: ONDANSETRON 4 MG/2 ML VIAL ONE (22:23)
[2021-01-12 22:47] LABS: Albumin 4.4 g/dL (3.4-5.0); Bilirubin Direct 0.1 mg/dL (0-0.2); Bilirubin Total 0.7 mg/dL (0.2-1.0); Potassium 3.9 mmol/L (3.5-5.1); Protein, Total 8.6 g/dL (6.4-8.2)
[2021-01-12] MEDS ORDERED: PROMETHAZINE INJ 25 MG/ML AMP ONE (23:28)
[2021-01-12 23:44] LABS: Urine Blood Negative (Negative); Urine Glucose Negative (Negative); Urine Protein 2+ (Negative); Urine Specific Gravity >=1.030 (1.005-1.030)
[2021-01-13 00:38] LABS: Urine Bacteria >50 /HPF (<20); Urine Mucus 3+ /HPF (NONE SEEN)
[2021-01-13 00:39] LABS: Urine Coarse Granular Casts 0-5 /LPF (NONE SEEN)
[2021-01-13] MEDS ORDERED: HYDROMORPHONE HCL 2 MG/ML inj ONE ×3 (00:44→07:03)
--- NOTE | 2021-01-13 00:59 | ER ---
Nurse's Notes [facility] Name: Billie Botello Age: 60 yrs Sex: Female : 1960 Arrival Date: 01/12/2021 Time: 21:05 Bed 15 Private MD: Diagnosis: Pancreatitis;Nausea;Vomiting;Diarrhea, unspecified Presentation: 01/12 21:16 Chief complaint: Patient states: N/V/D, weakness, dizzy, headache, hyperglycemia. bs2 Coronavirus screen: Client denies travel out of the [place] in the last 14 days. At this time, the client does not indicate any symptoms associated with coronavirus-19. Ebola Screen: Patient negative for fever greater than or equal to 101.5 degrees Fahrenheit, and additional compatible Ebola Virus Disease symptoms Patient denies exposure to infectious person. Patient denies travel to an Ebola-affected area in the 21 days before illness onset. No symptoms or risks identified at this time. Initial Sepsis Screen: Does the patient meet any 2 criteria? HR > 90 bpm. No. Patient's initial sepsis screen is negative. Does the patient have a suspected source of infection? No. Patient's initial sepsis screen is negative. Risk Assessment: Do you want to hurt yourself or someone else? Patient reports no desire to harm self or others. Onset of symptoms was January 12, 2021. 21:16 Method Of Arrival: EMS: [facility] bs2 21:16 Acuity: NIKA 3 bs2 Triage Assessment: 21:19 General: Appears uncomfortable, obese, well groomed, well developed, well nourished, bs2 Behavior is calm, cooperative, appropriate for age. Pain: Complains of pain in face Pain currently is 8 out of 10 on a pain scale. Pain began gradually. Historical: - Allergies: 21:19 Bactrim; bs2 21:19 Sulfa (Sulfonamide Antibiotics); bs2 21:19 Trazodone; bs2 21:19 TRIMETHOPRIM; bs2 - Home Meds: 21:19 amlodipine oral [Active]; Aspirin Oral [Active]; carvedilol Oral [Active]; citalopram bs2 oral [Active]; fenofibrate Oral [Active]; Hydrochlorothiazide Oral [Active]; Methocarbamol Oral [Active]; Omeprazole Oral [Active]; - PMHx: 21:19 Diabetes - NIDDM; etoh abuse; High Cholesterol; Hypertension; Pancreatitis; bs2 - Immunization history:: Client reports receiving the 2nd dose of the Covid vaccine, Flu vaccine is up to date. - Social history:: Smoking status: unknown. Screenin:15 Abuse screen: Denies threats or abuse. Denies injuries from another. Nutritional bs2 screening: No deficits noted. Tuberculosis screening: No symptoms or risk factors identified. Fall Risk None identified. Assessment: 21:15 General: Appears uncomfortable, obese, well groomed, well developed, well nourished, bs2 Behavior is cooperative, appropriate for age. Pain: Complains of pain in scalp and abdomen Pain currently is 8 out of 10 on a pain scale. Pain began gradually, 1 day ago. Neuro: No deficits noted. Reports headache in entire. Respiratory: No deficits noted. Reports shortness of breath on exertion. GI: Abdomen is round non-distended, obese, Pt is actively vomiting bile, Bowel sounds present X 4 quads. Abd is soft X 4 quads Abdomen is tender to palpation in right upper quadrant and left upper quadrant Reports upper abdominal pain, diarrhea, epigastric pain, flatulence, nausea, vomiting. : No deficits noted. No signs and/or symptoms were reported regarding the genitourinary system. Derm: No deficits noted. No signs and/or symptoms reported regarding the dermatologic system. Musculoskeletal: No deficits noted. No signs and/or symptoms reported regarding the musculoskeletal system. Vital Signs: 21:10 BP 144 / 113; Pulse 114; Resp 21; Pulse Ox 99% ; Pain 8/10; bs2 21:16 BP 144 / 118 LA Sitting (auto/reg); Pulse 111 MON; Resp 21 S; Temp 98.8(O); Pulse Ox bs2 97% on R/A; Weight 81.65 kg (R); Height 5 ft. 4 in. (162.56 cm) (R); Pain 8/10; 22:00 BP 145 / 123; Pulse 100; Resp 20; Pulse Ox 99% ; Pain 9/10; bs2 23:00 BP 165 / 120; Pulse 102; Resp 20; Pulse Ox 99% ; Pain 9/10; bs2 21:16 Body Mass Index 30.90 (81.65 kg, 162.56 cm) bs2 ED Course: 21:05 Patient arrived in ED. mw2 21:15 Patient has correct armband on for positive identification. Placed in gown. Bed in low bs2 position. Call light in reach. Side rails up X2. commercial loan assistant on. Pulse ox on. NIBP on. Door closed. Lights dimmed. Warm blanket given. 21:15 No provider procedures requiring assistance completed. Inserted saline lock: 20 gauge bs2 in right antecubital area, using aseptic technique. 21:16 Junie Robles, RN is Primary Nurse. bs2 21:19 Triage completed. bs2 21:21 Arm band placed on right wrist. bs2 21:25 Eleno Shrestha NP is PHCP. pm1 21:25 Dallas Arreola MD is Attending Physician. pm1 22:07 Basic Metabolic Panel Sent. bs2 22:07 CBC with Diff Sent. bs2 22:07 Hepatic Function Sent. bs2 22:07 Lipase Sent. bs2 22:07 Chest Single View XRAY Sent. bs2 22:12 Chest Single View XRAY In Process Unspecified. EDMS 23:38 Abdomen In Process Unspecified. EDMS 23:46 Throat Culture Sent. bs2 23:46 Urine Microscopic Only Sent. bs2 01/13 00:58 Minh Ortiz PA is Hospitalizing Provider. pm1 Administered Medications: 01/12 22:07 Drug: NS 0.9% 1000 ml Route: IV; Rate: 1000 ml; Site: right antecubital; bs2 01/13 02:22 Follow up: IV Status: Completed infusion; IV Intake: 1000ml bs2 01/12 22:07 Drug: Zofran (Ondansetron) 4 mg Route: IVP; Site: right antecubital; bs2 23:44 Follow up: Response: No adverse reaction bs2 22:07 Drug: morphine 4 mg Route: IVP; Site: right antecubital; bs2 22:45 Follow up: Response: No adverse reaction; Pain is unchanged, physician notified bs2 23:20 Drug: morphine 4 mg Route: IVP; Site: right antecubital; bs2 23:45 Follow up: Response: No adverse reaction; Pain is unchanged, physician notified bs2 23:20 Drug: Phenergan (promethazine) 12.5 mg Route: IVP; Site: right antecubital; bs2 23:45 Follow up: Response: Nausea is decreased bs2 01/13 00:30 Drug: Dilaudid (HYDROmorphone) 0.5 mg Route: IVP; Site: right antecubital; bs2 01:39 Follow up: Response: No adverse reaction; Pain is decreased bs2 01:39 Drug: Rocephin (cefTRIAXone) 1 grams Route: IV; Rate: calculated rate; Site: right bs2 antecubital; 01:45 Follow up: IV Status: Completed infusion; IV Intake: 10ml bs2 02:20 Drug: Dilaudid (HYDROmorphone) 0.5 mg Route: IVP; Site: right antecubital; bs2 04:17 Follow up: Response: No adverse reaction; Pain is decreased bs2 03:00 Drug: Benadryl (diphenhydrAMINE) 25 mg Route: IVP; Site: right antecubital; bs2 04:53 Follow up: Response: No adverse reaction bs2 Intake: 01:45 IV: 10ml; Total: 10ml. bs2 02:22 IV: 1000ml; Total: 1010ml. bs2 Outcome: 00:59 Decision to Hospitalize by Provider. pm1 16:58 Patient left the ED. tr6 Signatures: Dispatcher [employer] EDMS Eleno Shrestha NP ELECTRO OPTICS ENGINEER pm1 Shelly Joseph 2 Lydia Piedra RN RN tr6 Junie Robles RN RN bs2
--- NOTE | 2021-01-13 00:59 | EDPHYS ---
Physician Documentation [facility] Name: Billie Botello Age: 60 yrs Sex: Female : 1960 Arrival Date: 01/12/2021 Time: 21:05 Bed 15 Private MD: ED Physician Dallas Arreola HPI: 01/12 21:49 This 60 yrs old Female presents to ER via EMS with complaints of General pm1 Weakness. 21:49 The patient presents to the emergency department with nausea, vomiting, diarrhea, pm1 abdominal pain, of the left upper quadrant. Onset: The symptoms/episode began/occurred today. Possible causes: unknown. The symptoms are aggravated by nothing. The symptoms are alleviated by nothing. Associated signs and symptoms: Pertinent negatives: dysuria, fever. Severity of symptoms: in the emergency department the symptoms are worse. The patient has not recently seen a physician. Patient reports last drinking alcohol 1 week ago, 1 pint of Rum. History of hyperlipidemia. Historical: - Allergies: 21:19 Bactrim; bs2 21:19 Sulfa (Sulfonamide Antibiotics); bs2 21:19 Trazodone; bs2 21:19 TRIMETHOPRIM; bs2 - Home Meds: 21:19 amlodipine oral [Active]; Aspirin Oral [Active]; carvedilol Oral [Active]; citalopram bs2 oral [Active]; fenofibrate Oral [Active]; Hydrochlorothiazide Oral [Active]; Methocarbamol Oral [Active]; Omeprazole Oral [Active]; - PMHx: 21:19 Diabetes - NIDDM; etoh abuse; High Cholesterol; Hypertension; Pancreatitis; bs2 - Immunization history:: Client reports receiving the 2nd dose of the Covid vaccine, Flu vaccine is up to date. - Social history:: Smoking status: unknown. ROS: 21:49 Constitutional: Negative for fever, chills, and weight loss, Eyes: Negative for injury, pm1 pain, redness, and discharge, ENT: Negative for injury, pain, and discharge, Cardiovascular: Negative for chest pain, palpitations, and edema. 21:49 Back: Negative for injury and pain, : Negative for injury, bleeding, discharge, and swelling, MS/Extremity: Negative for injury and deformity, Skin: Negative for injury, rash, and discoloration. 21:49 Respiratory: Positive for cough, Negative for shortness of breath. 21:49 Abdomen/GI: Positive for abdominal pain, nausea, vomiting, and diarrhea, of the left upper quadrant. 21:49 Neuro: Positive for generalized weakness, Negative for headache, numbness, tingling. Exam: 21:49 Constitutional: This is a well developed, well nourished patient who is awake, alert, pm1 and in no acute distress. Head/Face: Normocephalic, atraumatic. 21:49 Back: No spinal tenderness. No costovertebral tenderness. Full range of motion. Skin: Warm, dry with normal turgor. Normal color with no rashes, no lesions, and no evidence of cellulitis. MS/ Extremity: Pulses equal, no cyanosis. Neurovascular intact. Full, normal range of motion. 21:49 Eyes: Exam is negative for acute changes, Pupils: no acute changes, Extraocular movements: no acute changes, Conjunctiva: normal, no injection. 21:49 ENT: Mouth: Lips: normal, Oral mucosa: normal, pink and intact, moist. 21:49 Cardiovascular: Exam negative for acute changes, Rate: tachycardic, Rhythm: regular, Pulses: no pulse deficits are appreciated, Heart sounds: normal. 21:49 Respiratory: Exam negative for acute changes, respiratory distress, shortness of breath, Breath sounds: are clear throughout. 21:49 Abdomen/GI: Inspection: abdomen appears normal, Palpation: soft, in all quadrants, mild abdominal tenderness, in the left upper quadrant. 21:49 Neuro: Exam negative for acute changes, Orientation: is normal, Mentation: is normal, Motor: is normal, moves all fours, Sensation: is normal, no obvious gross deficits. Vital Signs: 21:10 BP 144 / 113; Pulse 114; Resp 21; Pulse Ox 99% ; Pain 8/10; bs2 21:16 BP 144 / 118 LA Sitting (auto/reg); Pulse 111 MON; Resp 21 S; Temp 98.8(O); Pulse Ox bs2 97% on R/A; Weight 81.65 kg (R); Height 5 ft. 4 in. (162.56 cm) (R); Pain 8/10; 22:00 BP 145 / 123; Pulse 100; Resp 20; Pulse Ox 99% ; Pain 9/10; bs2 23:00 BP 165 / 120; Pulse 102; Resp 20; Pulse Ox 99% ; Pain 9/10; bs2 21:16 Body Mass Index 30.90 (81.65 kg, 162.56 cm) bs2 MDM: 21:28 Patient medically screened. pm1 01/13 00:54 Data reviewed: vital signs. Data interpreted: Pulse oximetry: on room air is 99 %. pm1 Interpretation: normal. Counseling: I had a detailed discussion with the patient and/or guardian regarding: the historical points, exam findings, and any diagnostic results supporting the discharge/admit diagnosis, lab results, radiology results, the need for further work-up and treatment in the hospital. 01/12 21:32 Order name: Basic Metabolic Panel; Complete Time: 22:53 pm1 01/12 21:32 Order name: CBC with Diff; Complete Time: 22:53 pm1 01/12 21:32 Order name: Hepatic Function; Complete Time: 22:53 pm1 01/12 21:32 Order name: Lipase; Complete Time: 22:53 pm1 01/12 21:32 Order name: Flu; Complete Time: 23:03 pm1 01/12 21:32 Order name: Strep; Complete Time: 23:03 pm1 01/12 21:33 Order name: Urine Microscopic Only pm1 01/12 21:34 Order name: Urine Microscopic Only; Complete Time: 00:48 EDMI 01/12 22:43 Order name: SARS-COV-2 RT PCR; Complete Time: 22:53 EDMI 01/12 23:02 Order name: Throat Culture [facility] 01/12 23:44 Order name: Urine Dipstick-Ancillary; Complete Time: 00:18 EDMI 01/13 00:39 Order name: Urine Culture EDMI 01/12 21:32 Order name: Chest Single View XRAY; Complete Time: 14:15 pm1 01/12 23:15 Order name: Abdomen EDMI 01/13 06:05 Order name: CBC with Automated Diff; Complete Time: 14:15 EDMI 01/13 06:12 Order name: Alcohol Serum/Plasma; Complete Time: 14:15 EDMS 01/13 06:24 Order name: Acetone Level; Complete Time: 14:15 EDMS 01/13 06:25 Order name: Comprehensive Metabolic Panel; Complete Time: 14:15 EDMI 01/13 06:25 Order name: Lipid Profile; Complete Time: 14:15 EDMS 01/13 07:57 Order name: Lipase; Complete Time: 14:15 EDMS 01/13 07:58 Order name: Hemoglobin A1c; Complete Time: 14:15 EDMS 01/13 08:03 Order name: Glucose, Ancillary Testing; Complete Time: 14:15 EDMS 01/13 12:07 Order name: Glucose, Ancillary Testing; Complete Time: 14:15 EDMS 01/13 16:30 Order name: Glucose, Ancillary Testing; Complete Time: 16:45 EDMS 01/12 21:32 Order name: IV Saline Lock; Complete Time: 22:07 pm1 01/12 21:32 Order name: Labs collected and sent; Complete Time: 22:07 pm1 01/12 21:33 Order name: Urine Dipstick-Ancillary (obtain specimen); Complete Time: 23:46 pm1 Administered Medications: 01/12 22:07 Drug: NS 0.9% 1000 ml Route: IV; Rate: 1000 ml; Site: right antecubital; 2 01/13 02:22 Follow up: IV Status: Completed infusion; IV Intake: 1000ml 2 01/12 22:07 Drug: Zofran (Ondansetron) 4 mg Route: IVP; Site: right antecubital; bs2 23:44 Follow up: Response: No adverse reaction bs2 22:07 Drug: morphine 4 mg Route: IVP; Site: right antecubital; bs2 22:45 Follow up: Response: No adverse reaction; Pain is unchanged, physician notified bs2 23:20 Drug: morphine 4 mg Route: IVP; Site: right antecubital; bs2 23:45 Follow up: Response: No adverse reaction; Pain is unchanged, physician notified bs2 23:20 Drug: Phenergan (promethazine) 12.5 mg Route: IVP; Site: right antecubital; bs2 23:45 Follow up: Response: Nausea is decreased 2 01/13 00:30 Drug: Dilaudid (HYDROmorphone) 0.5 mg Route: IVP; Site: right antecubital; bs2 01:39 Follow up: Response: No adverse reaction; Pain is decreased bs2 01:39 Drug: Rocephin (cefTRIAXone) 1 grams Route: IV; Rate: calculated rate; Site: right bs2 antecubital; 01:45 Follow up: IV Status: Completed infusion; IV Intake: 10ml bs2 02:20 Drug: Dilaudid (HYDROmorphone) 0.5 mg Route: IVP; Site: right antecubital; bs2 04:17 Follow up: Response: No adverse reaction; Pain is decreased bs2 03:00 Drug: Benadryl (diphenhydrAMINE) 25 mg Route: IVP; Site: right antecubital; bs2 04:53 Follow up: Response: No adverse reaction bs2 Disposition: 01/14 07:05 Co-signature as Attending Physician, Dallas Arreola MD I agree with the assessment and edgard plan of care. Disposition Summary: 01/13/21 00:59 Hospitalization Ordered Hospitalization Status: Inpatient Admission pm1 Provider: Minh Ortiz pm1 Condition: Stable pm1 Problem: new pm1 Symptoms: have improved pm1 Bed/Room Type: Standard pm1 Location: Telemetry/MedSurg (Inpatient)(01/13/21 15:37) Room Assignment: [facility](01/13/21 15:37) Diagnosis - Pancreatitis pm1 - Nausea pm1 - Vomiting pm1 - Diarrhea, unspecified pm1 Forms: - Medication Reconciliation Form pm1 - SBAR form pm1 Signatures: Dispatcher [employer] EDDallas Loredo MD MD cha Smirch, Shelby, RN RN ss Nila Abarca, RN RN cg Eleno Shrestha, PRASANNA ENERGY AUDIT ADVISOR pm1 Junie Robles RN RN bs2 Corrections: (The following items were deleted from the chart) 01/12 23:15 21:33 Abdomen Pelvis W Con+CT.RAD.BRZ ordered. [facility] 01/13 02:41 00:59 Telemetry/MedSurg (Inpatient) pm1 cg 02:41 00:59 pm1 cg 15:37 02:41 [facility] ER HOLD cg ss 15:37 02:41 ERHOLD- cg ss
[2021-01-13] MEDS ORDERED: CEFTRIAXONE/SWI 1gm 1 GM/10 ML SYR ONE (01:57)
[2021-01-13] MEDS ORDERED: DIPHENHYDRAMINE 50 MG/ML VIAL ONE ×2 (02:51→10:20)
[2021-01-13] MEDS ORDERED: DIPHENHYDRAMINE 50 MG/ML VIAL IV ONE (03:50)
[2021-01-13] MEDS ORDERED: MORPHINE 2 MG/ML SYR IV PRN (03:50)
[2021-01-13] MEDS ORDERED: ACETAMINOPHEN 500 MG TAB PO PRN (03:50)
--- NOTE | 2021-01-13 04:02 | P.HP ---
Certification for Inpatient Patient admitted to: Inpatient With expected LOS: <2 Midnights Patient will require the following post-hospital care: None Practitioner: I am a practitioner with admitting privileges, knowledge of patient current condition, hospital course, and medical plan of care. Services: Services provided to patient in accordance with Admission requirements found in Title 42 Section 412.3 of the Code of Federal Regulations Patient History Date of Service: 01/13/21 Reason for admission: pancreatitis History of Present Illness: Ms. Botello is a 60 yo F with HTN, HLD, DM, history of pancreatitis who presents for nausea, vomiting and epigastric abdominal pain beginning yesterday. She reports hot flashes, malaise, and frequency. Symptoms are worse with eating an drinking. Relieved by nothing. WBC 15.5. Na 132, Cl 96, HCO3 20, BUN 28, Cr 1.98, GFR 26, Glu 288. Urine + for RBCs, WBCs, and bacteria. Allergies sulfamethoxazole [From Bactrim] Allergy (Intermediate, Verified 05/07/20 21:54) Rash trimethoprim [From Bactrim] Allergy (Intermediate, Verified 05/07/20 21:54) Rash Sulfa (Sulfonamide Antibiotics) Allergy (Verified 05/07/20 21:54) Unknown trazodone Allergy (Verified 05/07/20 21:54) Itching Home Medications: Aspirin [Aspirin EC 81 MG] 81 mg PO DAILY #90 tablet. 01/01/18 Atorvastatin Calcium [Lipitor] 40 mg PO BEDTIME #30 tab 02/20/19 Citalopram [Celexa*] 20 mg PO DAILY 06/08/20 Fenofibrate [Tricor*] 1 tab PO DAILY 06/08/20 Omeprazole [Prilosec] 1 tab PO DAILY 06/08/20 Albuterol Inhaler [Ventolin Inhaler*] 2 puff IH Q6H PRN hfa.[email or web address].[email or web address] 07/28/20 Insulin Detemir [Levemir] 10 units SQ DAILY #1 ml 09/17/20 - Past Medical/Surgical History Diabetic: Yes -: HTN -: Hyperlipidemia -: GERD -: Hypercholesteremia -: Tobacco abuse -: Diabetes mellitus type 2 insulin-dependent -: renal insufficiency -: hypercholesterolemia -: -: R wrist Sx (metal plate) -: rectal polyps removed -: Left ankle orif Psychosocial/ Personal History: The patient is single. She has 1 child. Retired - Family History Sister -: Lung disease, Diabetes Notes: asthma Mother -: Heart disease, Cancer Father -: Heart disease - Social History Smoking Status: Former smoker Alcohol use: Yes CD- Drugs: Yes Caffeine use: No Place of Residence: Home Review of Systems 10-point ROS is otherwise unremarkable Gastrointestinal: Nausea, Vomiting, Abdominal Pain Genitourinary: Frequency Physical Examination - Physical Exam General: Alert, In no apparent distress HEENT: Atraumatic, PERRLA, Mucous membr. moist/pink, EOMI, Sclerae nonicteric Neck: Supple, 2+ carotid pulse no bruit, No LAD, Without JVD or thyroid abnormality Respiratory: Clear to auscultation bilaterally, Normal air movement Cardiovascular: Regular rate/rhythm, Normal S1 S2 Gastrointestinal: Normal bowel sounds, Tenderness Musculoskeletal: No tenderness Integumentary: No rashes Neurological: Normal speech, Normal strength at 5/5 x4 extr, Normal tone, Normal affect Lymphatics: No axilla or inguinal lymphadenopathy - Studies Laboratory Data (last 24 hrs) 01/12/21 21:55: WBC 15.50 H, Hgb 16.3 H, Hct 47.6 H, Plt Count 496 H 01/12/21 21:55: Sodium 132 L, Potassium 3.9, BUN 28 H, Creatinine 1.98 H, Glucose 288 H, Total Bilirubin 0.7, AST 15, ALT 22, Alkaline Phosphatase 77, Lipase 4377 H Microbiology Data (last 24 hrs): 01/12/21 21:55 Nasopharnyx Influenza Type A Antigen Screen - Final 01/12/21 21:55 Nasopharnyx Influenza Type B Antigen Screen - Final 01/12/21 21:55 Throat Group A Streptococcus Rapid Screen - Final Assessment and Plan - Plan Assessment Pancreatitis CARLOTA T2DM UTI HLD HTN Plan Pancreatitis - NPO, continue IVF hydration, pain management and antiemetics PRN, O2 PRN, lipid panel pending CARLOTA - continue with IVF hydration, repeat BMP in the AM, consult nephrology if no improvement UTI - ceftriaxone 1g IV daily T2DM - accuchecks and sliding scale insulin, A1c pending HLD - stable, continue to monitor HTN - stable, continue to monitor DVT ppx Discharge Plan: Home Plan to discharge in: 48 Hours - Advance Directives Does patient have a Living Will: No Does patient have a Durable POA for Healthcare: No - Code Status/Comfort Care Code Status Assessed: Yes (full code ) Critical Care: No Time Spent Managing Pts Care (In Minutes): 70
[2021-01-13] MEDS ORDERED: NA CHLORIDE 0.9% 1,000 ML ONE (04:47)
[2021-01-13] MEDS ORDERED: HEPARIN 5000 UNIT/ML 1 ML VIAL ONE ×2 (04:47→09:13)
[2021-01-13] MEDS: NA CHLORIDE 0.9% 1,000 ML IV SCH ×3 (05:35→23:50)
[2021-01-13] MEDS: HEPARIN 5000 UNIT/ML 1 ML VIAL SQ SCH ×3 (05:35→17:13)
[2021-01-13] MEDS: ONDANSETRON 4 MG/2 ML VIAL IV PRN ×2 (05:45→12:28)
[2021-01-13 05:56] LABS: Absolute Lymphocytes (CBC) 2.7 K/uL (0.7-4.9); Basophils % 0.5 % (0-1.3); Hematocrit 45.5 % (36.0-45.0); Lymphocytes % 17.4 % (15.3-44.8); RBC Red Blood Cell Count 4.83 M/uL (3.86-4.86)
[2021-01-13] MEDS ORDERED: ONDANSETRON 4 MG/2 ML VIAL ONE ×2 (06:06→12:48)
[2021-01-13] MEDS ORDERED: MORPHINE 2 MG/ML SYR ONE (06:09)
--- NOTE | 2021-01-13 06:20 | P.PN ---
Subjective Date of Service: 01/13/21 Primary Care Provider: [facility] Chief Complaint: pancreatitis Subjective: Other (Still with pain to the epigastric region. Less nausea and vomiting. Morphine is not helping with pain. She drank a pint of rum the other day. Hx of pancreatitis about 4 years ago.) Physical Examination - Studies Laboratory Data (last 24 hrs) 01/12/21 21:55: WBC 15.50 H, Hgb 16.3 H, Hct 47.6 H, Plt Count 496 H 01/12/21 21:55: Sodium 132 L, Potassium 3.9, BUN 28 H, Creatinine 1.98 H, Glucose 288 H, Total Bilirubin 0.7, AST 15, ALT 22, Alkaline Phosphatase 77, Lipase 4377 H Microbiology Data (last 24 hrs): 01/12/21 21:55 Nasopharnyx Influenza Type A Antigen Screen - Final 01/12/21 21:55 Nasopharnyx Influenza Type B Antigen Screen - Final 01/12/21 21:55 Throat Group A Streptococcus Rapid Screen - Final Assessment & Plan Discharge Plan: Home Plan to discharge in: 48 Hours Physician Review Additional Text: Physical Exam: General: Alert, In no apparent distress HEENT: Atraumatic, PERRLA, Mucous membr. moist/pink, EOMI, Sclerae nonicteric Neck: Supple, 2+ carotid pulse no bruit, No LAD, Without JVD or thyroid abnormality Respiratory: Clear to auscultation bilaterally, Normal air movement Cardiovascular: Regular rate/rhythm, Normal S1 S2 Gastrointestinal: Still with abdominal pain to the epigastric region. Musculoskeletal: No tenderness Integumentary: No rashes Neurological: Normal speech, Normal strength at 5/5 x4 extr, Normal tone, Normal affect Lymphatics: No axilla or inguinal lymphadenopathy Impression: Nausea, vomiting, abdominal pain secondary to acute alcoholic pancreatitis Acute renal injury Diabetes mellitus type 2 UTI Hyperlipidemia Hypertension Alcohol abuse Depression Obesity, BMI 30.8 Plan Nausea, vomiting, abdominal pain secondary to acute alcoholic pancreatitis: Continue n.p.o. status. Continue IV fluid hydration. Will provide medication for pain. Will switch from morphine to Dilaudid. Provide medication for nausea. Encourage ambulation. Provide incentive spirometer. Will add Pepcid, thiamine and folate. Anticipate continued improvement. Will monitor and trend labCBC/CMP/lipase. Patient also with UTI. Continue with IV Rocephin. Cultures pending. I will turn to service over to the hospitalist team tomorrow. I will go plan of care with him. Likely discharge in the next 3 days. Acute renal injury: Continue aggressive IV fluids. Anticipate improvement with hydration. Diabetes mellitus type 2: Accu-Cheks in place. Sliding scale in place. Will check A1c. Patient takes Levemir. Will transition to basal insulin once able to take good oral intake. UTI: Continue Rocephin. Cultures obtained. Hyperlipidemia: Hold medication Hypertension: We will provide IV medication for now. Patient takes Norvasc 10 mg daily, carvedilol 12.5 mg 1 pill twice daily and hydrochlorothiazide 25 mg daily. Medications may need to be adjusted. Depression: Will restart Celexa once taking good oral intake. Alcohol abuse: Alcohol cessation education provided Obesity, BMI 30.8: Lifestyle modification education provided DVT prophylaxis: Heparin CODE STATUS: Full code Advance care [id number] minutes: Home at discharge Time Spent Managing Pts Care (In Minutes): 55
[2021-01-13 06:21] LABS: Albumin 3.9 g/dL (3.4-5.0); Bilirubin Total 0.3 mg/dL (0.2-1.0); Potassium 3.3 mmol/L (3.5-5.1); Protein, Total 7.7 g/dL (6.4-8.2)
[2021-01-13] MEDS ORDERED: NA CHLORIDE 0.9% 500 ML IV ONE (06:41)
[2021-01-13] MEDS: HYDROMORPHONE HCL 0.5 MG/0.5 ML INJ IV PRN ×4 (06:45→22:03)
[2021-01-13] MEDS ORDERED: ALBUTEROL 2.5 MG/3 ML NEB SOL NEB PRN (06:45)
[2021-01-13] MEDS ORDERED: IPRATROPIUM BROM 0.5MG/2.5ML NEB PRN (06:45)
[2021-01-13] MEDS ORDERED: ACETAMINOPHEN 650MG/RECT SUPP PR PRN (06:47)
[2021-01-13] MEDS ORDERED: INSULIN -REGULAR HUMAN 50 UNIT/0.5 ML ML SQ SCH (07:30)
--- NOTE | 2021-01-13 07:34 | RAD REPORT ---
EXAM DESCRIPTION: Jassi Single View01/12/2021 10:12 pm CLINICAL HISTORY: Cough COMPARISON: September 2020 FINDINGS: The lungs appear clear of acute infiltrate. The heart is normal size IMPRESSION: No acute abnormalities displayed
[2021-01-13] MEDS: ARFORMOTEROL TARTRATE 15 MCG/2 ML VIAL.NEB NEB SCH ×2 (08:23→19:42)
[2021-01-13] MEDS ORDERED: ARFORMOTEROL TARTRATE 15 MCG/2 ML VIAL.NEB ONE (08:35)
[2021-01-13] MEDS: THIAMINE 200 MG/2 ML INJ IVP SCH (08:55)
[2021-01-13] MEDS: FAMOTIDINE 20 MG/2 ML VIAL IV SCH (08:55)
[2021-01-13] MEDS: FOLIC ACID 1 MG in NA CHLORIDE 0.9% 50 ML IV SCH (09:00)
[2021-01-13] MEDS ORDERED: FAMOTIDINE 20 MG/2 ML VIAL IV SCH (09:00)
[2021-01-13] MEDS ORDERED: THIAMINE 200 MG/2 ML INJ ONE (09:13)
[2021-01-13] MEDS ORDERED: FAMOTIDINE 20 MG/2 ML VIAL IV ONE (09:14)
[2021-01-13 09:21] VITALS: BMI 30.8
[2021-01-13] MEDS: DIPHENHYDRAMINE 50 MG/ML VIAL IV PRN ×2 (10:12→23:01)
[2021-01-13] MEDS ORDERED: KCL 20 MEQ/100 mL IVPB 20 MEQ/100 ML BAG IV ONE ×2 (10:20→12:48)
[2021-01-13] MEDS: KCL 20 MEQ/100 mL IVPB 20 MEQ/100 ML BAG IV SCH ×2 (10:43→12:28)
[2021-01-13] MEDS: INSULIN -REGULAR HUMAN 50 UNIT/0.5 ML ML SQ SCH ×2 (12:00→16:37)
[2021-01-13] MEDS ORDERED: HYDROMORPHONE HCL 0.5 MG/0.5 ML INJ ONE (12:48)
[2021-01-13] MEDS ORDERED: METOPROLOL TARTRATE 5 MG/5 ML INJ IV PRN (14:45)
--- NOTE | 2021-01-13 19:15 | EKG ---
Test Date: 2021-01-12 Test Time: 22:51:40 Wood Panel Inspector: BLAIR MEASUREMENT RESULTS: Intervals: Rate: 97 OR: 180 QRSD: 66 QT: 374 QTc: 474 [place]: P: 77 OR: 180 QRS: 66 T: 79 INTERPRETIVE STATEMENTS: Sinus rhythm with marked sinus arrhythmia Cannot rule out Anterior infarct, age undetermined Abnormal ECG Compared to ECG 09/16/2020 17:57:01 Myocardial infarct finding now present Prolonged QT interval no longer present Electronically Signed On 01-13-21 19:13:40 CDT by Doug Gold
[2021-01-13] MEDS: CEFTRIAXONE/SWI 1gm 1 GM/10 ML SYR IVP SCH (21:58)
[2021-01-13] MEDS ORDERED: CEFTRIAXONE 1 GM/NS 50 ML 1 GM/50 ML BAG IV SCH (23:00)
[2021-01-14] MEDS: NA CHLORIDE 0.9% 1,000 ML IV SCH ×5 (00:24→16:44)
[2021-01-14] MEDS: HEPARIN 5000 UNIT/ML 1 ML VIAL SQ SCH ×3 (00:25→16:43)
[2021-01-14] MEDS: HYDROMORPHONE HCL 0.5 MG/0.5 ML INJ IV PRN ×4 (03:31→22:07)
[2021-01-14 05:37] LABS: Absolute Lymphocytes (CBC) 1.7 K/uL (0.7-4.9); Basophils % 0.4 % (0-1.3); Lymphocytes % 16.8 % (15.3-44.8); MPV 7.8 fL (7.6-11.3); RBC Red Blood Cell Count 3.79 M/uL (3.86-4.86)
[2021-01-14] MEDS: INSULIN -REGULAR HUMAN 50 UNIT/0.5 ML ML SQ SCH ×4 (05:47→18:00)
[2021-01-14 05:55] LABS: ALT/SGPT 13 U/L (12-78); AST/SGOT 11 U/L (15-37); Albumin 3.1 g/dL (3.4-5.0); Alkaline Phosphatase 51 U/L (45-117); BUN Blood Urea Nitrogen 13 mg/dL (7-18); Bicarbonate 24 mmol/L (21-32); Bilirubin Total 0.5 mg/dL (0.2-1.0); Glucose Level 125 mg/dL (74-106); Lipase 1766 U/L (73-393); Phosphorus 2.2 mg/dL (2.5-4.9); Potassium 3.2 mmol/L (3.5-5.1); Protein, Total 6.6 g/dL (6.4-8.2); Sodium Level 136 mmol/L (136-145)
[2021-01-14] MEDS ORDERED: POTASSIUM CL SA 10 MEQ TAB PO ONE (06:08)
[2021-01-14] MEDS ORDERED: Magnesium Sulfate 2gm IVPB 2 G/50 ML BAG IV ONE ×2 (06:09→10:45)
[2021-01-14] MEDS: DIPHENHYDRAMINE 50 MG/ML VIAL IV PRN ×2 (06:27→16:57)
[2021-01-14] MEDS: FOLIC ACID 1 MG in NA CHLORIDE 0.9% 50 ML IV SCH (08:34)
[2021-01-14] MEDS: THIAMINE 200 MG/2 ML INJ IVP SCH (08:35)
[2021-01-14] MEDS: FAMOTIDINE 20 MG/2 ML VIAL IV SCH (08:36)
[2021-01-14] MEDS: ARFORMOTEROL TARTRATE 15 MCG/2 ML VIAL.NEB NEB SCH ×2 (09:52→20:05)
[2021-01-14 12:57] LABS: Urine Appearance CLEAR (Clear); Urine Bilirubin NEGATIVE (Negative); Urine Blood NEGATIVE (Negative); Urine Color YELLOW (Yellow); Urine Glucose 1+ (Negative); Urine Protein NEGATIVE (Negative); Urine Specific Gravity 1.015 (1.005-1.030)
[2021-01-14 13:03] LABS: Urine Microscopic Reflex NO UMIC
[2021-01-14] MEDS ORDERED: KCL 20 MEQ/100 mL IVPB 20 MEQ/100 ML BAG IV SCH (21:00)
--- NOTE | 2021-01-14 21:21 | RAD REPORT ---
EXAM DESCRIPTION: CT - Abdomen Pelvis Wo Contrast - 01/13/2021 6:53 am CLINICAL HISTORY: The patient is 60 years old and is Female; ABD PAIN TECHNIQUE: Axial computed tomography images of the abdomen and pelvis without intravenous contrast. Sagittal and coronal reformatted images were created and reviewed. This CT exam was performed usi ng one or more of the following dose reduction techniques: automated exposure control, adjustment o f the mA and/or kV according to patient size, and/or use of iterative reconstruction technique. COMPARISON: CT of the abdomen and pelvis July 26, 2020 FINDINGS: LUNG BASES: Atelectasis/scarring within the left lower lobe is noted. PLEURAL SPACE: Trace left pleural effusion is present. ABDOMEN: LIVER: The liver is diffusely fatty and enlarged. GALLBLADDER AND BILE DUCTS: No calcified stones. No ductal dilation. PANCREAS: Peripancreatic inflammation and stranding is present. There is no pseudocyst. No duct al dilation. SPLEEN: Unremarkable. ADRENALS: Unremarkable. No mass. KIDNEYS AND URETERS: No obstructing stones. No hydronephrosis. No perinephric fluid. STOMACH AND BOWEL: The stomach is distended with fluid. Mild diffuse mucosal thickening with asso ciated stranding involving the gastric body is noted. The small bowel is normal in caliber. Stool is present throughout colon. Scattered colonic diverticula specifically the left colon is present withou t surrounding inflammation. There is no bowel obstruction. PELVIS: APPENDIX: No findings to suggest acute appendicitis. BLADDER: The bladder is nearly empty. No stones. REPRODUCTIVE: Unremarkable as visualized. ABDOMEN and PELVIS: INTRAPERITONEAL SPACE: Unremarkable. No free air. No significant fluid collection. BONES/JOINTS: Multilevel degenerative change of the spine is present. SOFT TISSUES: The soft tissues are normal. VASCULATURE: Atherosclerosis of the vasculature is present. The vessels are normal in caliber. No abdominal aortic aneurysm. LYMPH NODES: Unremarkable. No enlarged lymph nodes. IMPRESSION: 1. Findings suggest mild acute pancreatitis and associated gastritis. Correlation with patient's laboratory values is recommended. 2. Trace left pleural effusion. Electronically signed by: Shirin Gale MD 01/13/2021 12:14 AM CDT Due to temporary technical issues with the PACS/Fluency reporting system, reports are being signed by the in house radiologists without review as a courtesy to insure prompt reporting. The interpreting radiologist is fully responsible for the content of the report.
[2021-01-14] MEDS: CEFTRIAXONE/SWI 1gm 1 GM/10 ML SYR IVP SCH (22:03)
[2021-01-14] MEDS ORDERED: ZOLPIDEM TARTRATE 10 MG TABLET PO ONE (22:18)
[2021-01-15] MEDS: INSULIN -REGULAR HUMAN 50 UNIT/0.5 ML ML SQ SCH ×4 (00:30→17:38)
[2021-01-15] MEDS: HEPARIN 5000 UNIT/ML 1 ML VIAL SQ SCH ×3 (00:46→18:36)
[2021-01-15] MEDS: NA CHLORIDE 0.9% 1,000 ML IV SCH ×6 (00:46→22:30)
[2021-01-15] MEDS: DIPHENHYDRAMINE 50 MG/ML VIAL IV PRN ×3 (01:08→18:37)
[2021-01-15] MEDS: HYDROMORPHONE HCL 0.5 MG/0.5 ML INJ IV PRN ×5 (03:32→22:18)
[2021-01-15 05:44] LABS: Absolute Lymphocytes (CBC) 1.4 K/uL (0.7-4.9); Basophils % 0.2 % (0-1.3); Lymphocytes % 13.2 % (15.3-44.8); MPV 8.1 fL (7.6-11.3); RBC Red Blood Cell Count 3.77 M/uL (3.86-4.86)
[2021-01-15 05:56] LABS: ALT/SGPT 11 U/L (12-78); AST/SGOT 11 U/L (15-37); Albumin 3.1 g/dL (3.4-5.0); Alkaline Phosphatase 63 U/L (45-117); BUN Blood Urea Nitrogen 7 mg/dL (7-18); Bicarbonate 20 mmol/L (21-32); Bilirubin Total 0.6 mg/dL (0.2-1.0); Glucose Level 94 mg/dL (74-106); Lipase 596 U/L (73-393); Magnesium 1.9 mg/dL (1.8-2.4); Potassium 3.6 mmol/L (3.5-5.1); Sodium Level 134 mmol/L (136-145)
[2021-01-15] MEDS: ARFORMOTEROL TARTRATE 15 MCG/2 ML VIAL.NEB NEB SCH ×2 (07:54→20:30)
[2021-01-15] MEDS ORDERED: KCL 20 MEQ/100 mL IVPB 20 MEQ/100 ML BAG IV SCH (09:00)
[2021-01-15] MEDS ORDERED: POTASSIUM PHOS IN 0.9 % NACL 15 MMOL/250 ML BAG IV ONE (09:00)
[2021-01-15] MEDS: ONDANSETRON 4 MG/2 ML VIAL IV PRN (09:06)
[2021-01-15] MEDS: FOLIC ACID 1 MG in NA CHLORIDE 0.9% 50 ML IV SCH (09:06)
[2021-01-15] MEDS: THIAMINE 200 MG/2 ML INJ IVP SCH (09:08)
[2021-01-15] MEDS: FAMOTIDINE 20 MG/2 ML VIAL IV SCH (09:08)
[2021-01-15] MEDS: CEFTRIAXONE/SWI 1gm 1 GM/10 ML SYR IVP SCH (21:32)
[2021-01-15] MEDS ORDERED: ZOLPIDEM TARTRATE 5 MG TABLET PO ONE (22:00)
[2021-01-16] MEDS: HEPARIN 5000 UNIT/ML 1 ML VIAL SQ SCH ×3 (00:08→17:52)
[2021-01-16] MEDS: NA CHLORIDE 0.9% 1,000 ML IV SCH ×2 (01:33→11:50)
[2021-01-16] MEDS: HYDROMORPHONE HCL 0.5 MG/0.5 ML INJ IV PRN ×2 (02:35→10:11)
[2021-01-16] MEDS: DIPHENHYDRAMINE 50 MG/ML VIAL IV PRN ×2 (02:38→10:11)
[2021-01-16] MEDS: INSULIN -REGULAR HUMAN 50 UNIT/0.5 ML ML SQ SCH ×4 (05:43→18:00)
[2021-01-16 06:13] LABS: ALT/SGPT 14 U/L (12-78); AST/SGOT 10 U/L (15-37); Absolute Lymphocytes (CBC) 1.5 K/uL (0.7-4.9); Albumin 2.9 g/dL (3.4-5.0); Alkaline Phosphatase 67 U/L (45-117); BUN Blood Urea Nitrogen 4 mg/dL (7-18); Basophils % 0.3 % (0-1.3); Bicarbonate 21 mmol/L (21-32); Bilirubin Total 0.4 mg/dL (0.2-1.0); Glucose Level 128 mg/dL (74-106); Hematocrit 33.1 % (36.0-45.0); Lipase 451 U/L (73-393); Lymphocytes % 18.4 % (15.3-44.8); MPV 7.9 fL (7.6-11.3); Magnesium 1.6 mg/dL (1.8-2.4); Potassium 3.3 mmol/L (3.5-5.1); Protein, Total 6.6 g/dL (6.4-8.2); RBC Red Blood Cell Count 3.47 M/uL (3.86-4.86); Sodium Level 134 mmol/L (136-145)
[2021-01-16] MEDS ORDERED: MAGNESIUM SULFATE 1 gm IVPB 1 GM/100 ML BAG IV ONE (08:00)
[2021-01-16] MEDS ORDERED: POTASSIUM CL SA 10 MEQ TAB PO ONE (09:00)
[2021-01-16] MEDS: ARFORMOTEROL TARTRATE 15 MCG/2 ML VIAL.NEB NEB SCH (09:04)
[2021-01-16] MEDS ORDERED: Magnesium Sulfate 2gm IVPB 2 G/50 ML BAG IV ONE (09:55)
[2021-01-16] MEDS: FOLIC ACID 1 MG in NA CHLORIDE 0.9% 50 ML IV SCH (10:01)
[2021-01-16] MEDS: THIAMINE 200 MG/2 ML INJ IVP SCH (10:02)
[2021-01-16] MEDS: FAMOTIDINE 20 MG/2 ML VIAL IV SCH (10:02)
[2021-01-16] MEDS: POTASS/SODIUM PHOSPHATE 1 PKT POWD.PACK PO SCH ×3 (10:03→12:44)
--- NOTE | 2021-01-16 10:06 | P.PN ---
Subjective Date of Service: 01/14/21 Patient is still having some pain. Lipase is elevated. Still requiring pain medication Review of Systems 10-point ROS is otherwise unremarkable Physical Examination - Vital Signs Temperature: 98.2 F Blood Pressure: 153/88 Pulse: 78 Respirations: 16 Pulse Ox (%): 96 - Physical Exam General: Alert, In no apparent distress, Oriented x3 HEENT: Atraumatic, PERRLA, EOMI Neck: Supple, JVD not distended Respiratory: Clear to auscultation bilaterally, Normal air movement Cardiovascular: Regular rate/rhythm, Normal S1 S2 Gastrointestinal: Normal bowel sounds, Soft and benign, Tenderness (Epigastric tenderness) Musculoskeletal: No clubbing, No swelling, No tenderness Neurological: Sensation intact, Cranial nerves 3-12 intact - Studies Microbiology Data (last 24 hrs): 01/12/21 23:40 Clean Catch Urine Maunie Count - Final <10,000 CFU/ML. 01/12/21 23:40 Clean Catch Urine - Final MIXED REYNALDO. Medications List Reviewed: Yes Assessment & Plan - Problems (Diagnosis) (1) Acute pancreatitis Current Visit: Yes Status: Acute (2) Alcohol abuse Current Visit: Yes Status: Acute (3) Diabetes mellitus type II, non insulin dependent Onset Date: 11/24/15 Current Visit: No Status: Chronic (4) Hypertension Onset Date: 11/24/15 Current Visit: No Status: Chronic Qualifiers: Hypertension type: essential hypertension Qualified Code(s): I10 - Essential (primary) hypertension (5) Tobacco abuse Onset Date: 12/30/17 Current Visit: No Status: Chronic (6) GERD (gastroesophageal reflux disease) Onset Date: 12/30/17 Current Visit: No Status: Suspected Qualifiers: Esophagitis presence: with esophagitis (7) Abdominal pain Current Visit: No Status: Resolved Qualifiers: Abdominal location: generalized Qualified Code(s): R10.84 - Generalized abdominal pain - Plan 1. Continue with IV hydration 2. Monitor for DTs 3. Continue with pain control 4. NPO; ice chips in the morning 5. Outpatient GI consultation 6. Serial H&H, and we will monitor CBC, BMP, LFTs and lipase along with e lectrolytes. 7. GI and DVT prophylaxis Discharge Plan: Home Plan to discharge in: Greater than 2 days - Advance Directives Does patient have a Living Will: No Does patient have a Durable POA for Healthcare: No - Code Status/Comfort Care Code Status Assessed: Yes Code Status: Full Code Critical Care: No Time Spent Managing PTS Care (In Minutes): 35
--- NOTE | 2021-01-16 10:07 | P.PN ---
Date of Service: 01/15/21 Subjective Patient continues to do well with no new complaints; advanced diet as tolerated Review of Systems 10-point ROS is otherwise unremarkable Physical Examination - Vital Signs Reviewed - Physical Exam General: Alert, In no apparent distress, Oriented x3 Respiratory: Clear to auscultation bilaterally, Normal air movement Cardiovascular: Regular rate/rhythm, Normal S1 S2 Gastrointestinal: Normal bowel sounds, Soft and benign, Tenderness (Epigastric tenderness) Musculoskeletal: No clubbing, No swelling, No tenderness Neurological: Sensation intact, Cranial nerves 3-12 intact Assessment & Plan - Problems (Diagnosis) (1) Acute pancreatitis Current Visit: Yes Status: Acute (2) Alcohol abuse Current Visit: Yes Status: Acute (3) Diabetes mellitus type II, non insulin dependent Onset Date: 11/24/15 Current Visit: No Status: Chronic (4) Hypertension Onset Date: 11/24/15 Current Visit: No Status: Chronic Qualifiers: Hypertension type: essential hypertension Qualified Code(s): I10 - Essential (primary) hypertension (5) Tobacco abuse Onset Date: 12/30/17 Current Visit: No Status: Chronic (6) GERD (gastroesophageal reflux disease) Onset Date: 12/30/17 Current Visit: No Status: Suspected Qualifiers: Esophagitis presence: with esophagitis (7) Abdominal pain Current Visit: No Status: Resolved Qualifiers: Abdominal location: generalized Qualified Code(s): R10.84 - Generalized abdominal pain - Plan Continue with plan of care as mentioned below: 1. Continue with IV hydration 2. Monitor for DTs 3. Continue with pain control 4. Ice chips; advanced diet as tolerated 5. Outpatient GI consultation 6. Serial H&H, and we will monitor CBC, BMP, LFTs and lipase along with electrolytes. 7. GI and DVT prophylaxis
--- NOTE | 2021-01-16 10:08 | P.DS ---
Discharge Date: 01/16/21 Primary Care Provider: Duarte Long Disposition: ROUTINE DISCHARGE Discharge Condition: GOOD Reason for Admission: pancreatitis - Problems (1) Acute pancreatitis Current Visit: Yes Status: Acute (2) Alcohol abuse Current Visit: Yes Status: Acute (3) Diabetes mellitus type II, non insulin dependent Onset Date: 11/24/15 Current Visit: No Status: Chronic (4) Hypertension Onset Date: 11/24/15 Current Visit: No Status: Chronic Qualifiers: Hypertension type: essential hypertension Qualified Code(s): I10 - Essential (primary) hypertension (5) Tobacco abuse Onset Date: 12/30/17 Current Visit: No Status: Chronic (6) GERD (gastroesophageal reflux disease) Onset Date: 12/30/17 Current Visit: No Status: Suspected Qualifiers: Esophagitis presence: with esophagitis (7) Abdominal pain Current Visit: No Status: Resolved Qualifiers: Abdominal location: generalized Qualified Code(s): R10.84 - Generalized abdominal pain Brief History of Present Illness: Ms. Botello is a 60 yo F with HTN, HLD, DM, history of pancreatitis who presents for nausea, vomiting and epigastric abdominal pain beginning yesterday. She reports hot flashes, malaise, and frequency. Symptoms are worse with eating an drinking. Relieved by nothing. WBC 15.5. Na 132, Cl 96, HCO3 20, BUN 28, Cr 1.98, GFR 26, Glu 288. Urine + for RBCs, WBCs, and bacteria. Vital Signs/Physical Exam: Temp Pulse Resp BP Pulse Ox 98.2 F 78 16 153/88 H 96 01/16/21 10:06 01/16/21 10:06 01/16/21 10:06 01/16/21 10:06 01/16/21 10:06 General: Alert, In no apparent distress, Oriented x3 Laboratory Data at Discharge: WBC 8.00 K/uL (4.3-10.9) D 01/16/21 05:16 Hgb 11.4 g/dL (12.0-15.0) L 01/16/21 05:16 Hct 33.1 % (36.0-45.0) L 01/16/21 05:16 Plt Count 312 K/uL (152-406) 01/16/21 05:16 Sodium 134 mmol/L (136-145) L 01/16/21 05:16 Potassium Cancelled 01/16/21 14:00 BUN 4 mg/dL (7-18) L 01/16/21 05:16 Creatinine 0.49 mg/dL (0.55-1.3) L 01/16/21 05:16 Glucose 128 mg/dL (74-106) H 01/16/21 05:16 Phosphorus 2.5 mg/dL (2.5-4.9) 01/16/21 05:16 Magnesium 1.6 mg/dL (1.8-2.4) L 01/16/21 05:16 Total Bilirubin 0.4 mg/dL (0.2-1.0) 01/16/21 05:16 AST 10 U/L (15-37) L 01/16/21 05:16 ALT 14 U/L (12-78) 01/16/21 05:16 Alkaline Phosphatase 67 U/L (45-117) 01/16/21 05:16 Triglycerides 221 mg/dL (<150) H 01/13/21 05:40 Cholesterol 232 mg/dL (<200) H 01/13/21 05:40 HDL Cholesterol 57 mg/dL (40-60) 01/13/21 05:40 Cholesterol/HDL Ratio 4.07 01/13/21 05:40 Lipase 451 U/L (73-393) H 01/16/21 05:16 Home Medications: Aspirin [Aspirin EC 81 MG] 81 mg PO DAILY #90 tablet. 01/01/18 Atorvastatin Calcium [Lipitor] 40 mg PO BEDTIME #30 tab 02/20/19 Citalopram [Celexa*] 20 mg PO DAILY 06/08/20 Omeprazole [Prilosec] 1 tab PO DAILY 06/08/20 Albuterol Inhaler [Ventolin Inhaler*] 2 puff IH Q6H PRN hfa.aer.ad 07/28/20 Insulin Detemir [Levemir] 10 units SQ DAILY #1 ml 09/17/20 Amlodipine [Norvasc*] 10 mg PO DAILY 01/13/21 Carvedilol [Coreg] 12.5 mg PO BID 01/13/21 hydroCHLOROthiazide [Hydrochlorothiazide] 25 mg PO DAILY 01/13/21 Hydrocodone 7.5/APAP 325 [[place] 7.5/325 mg] 1 tab PO Q6H PRN #28 tab 01/16/21 Ondansetron HCl [Zofran] 8 mg PO TID PRN #60 01/16/21 Pancreatin/Lipase/Protease/[place] [Pancreatin 4X 600 mg Tablet] 600 mg PO AC #90 tablet 01/16/21 New Medications: Hydrocodone 7.5/APAP 325 [[place] 7.5/325 mg] 1 tab PO Q6H PRN #28 tab PRN Reason: Pain Pancreatin/Lipase/Protease/[place] [Pancreatin 4X 600 mg Tablet] 600 mg PO AC #90 tablet Ondansetron HCl [Zofran] 8 mg PO TID PRN #60 PRN Reason: Nausea / Vomiting Physician Discharge Instructions: OK TO DC IV AND DC HOME FOLLOW-UP WITH PRIMARY CARE PROVIDER IN 1-2 WEEKS FOLLOW-UP WITH Project Control Officer IN 1-2 WEEKS RETURN TO THE ER IF symptoms worsen CALL or TEXT DR. HASKINS AT [phone] IF ANY QUESTIONS REGARDING HOSPITAL STAY. PLEASE CALL THE FLOOR AT [phone] IF ANY MEDICATION OR NURSING QUESTIONS. Diet: Regular Activity: Fall precautions Followup: NONE,NONE [Primary Care Provider] - Time spent managing pt's care (in minutes): 35
[2021-01-16] MEDS: ONDANSETRON 4 MG/2 ML VIAL IV PRN (10:11)
[2021-01-16 10:16] VITALS: O2SAT 94
[2021-01-16] MEDS ORDERED: POTASS/SODIUM PHOSPHATE 1 PKT POWD.PACK PO ONE (12:20)
[2021-01-16 17:25] VITALS: BP 146/86; TEMP 98.2
[2021-01-17 13:21] LABS: C.diff Antigen/Toxin Ag pos : Tox pos (NEG : NEG)
== END 2021-01-16 18:48 | disposition home or self-care (01) | DRG 439 ==
LOC: ER 21:04 → ERHOLD 01-13 02:13 → 2ND 01-13 15:56
PROVIDERS: ADMIT Family Medicine; ATTEND Hospitalist
DX: K85.20 Alcohol induced acute pancreatitis without necrosis or infection (principal); N17.9 Acute kidney failure, unspecified; N39.0 Urinary tract infection, site not specified; E78.5 Hyperlipidemia, unspecified; F10.10 Alcohol abuse, uncomplicated; E11.9 Type 2 diabetes mellitus without complications; F32.9 Major depressive disorder, single episode, unspecified; I10 Essential (primary) hypertension; K21.00 Gastro-esophageal reflux disease with esophagitis, without bleeding; E66.9 Obesity, unspecified; R10.84 Generalized abdominal pain; Z68.30 Body mass index [BMI] 30.0-30.9, adult; Z88.1 Allergy status to other antibiotic agents; Z88.8 Allergy status to other drugs, medicaments and biological substances; Z79.82 Long term (current) use of aspirin; Z79.899 Other long term (current) drug therapy; Z79.4 Long term (current) use of insulin; Z87.891 Personal history of nicotine dependence; Z20.822 Contact with and (suspected) exposure to COVID-19
CPT/HCPCS: 36415; 71045; 74176; 80048; 80053; 80061; 80076; 80320; 81003; 81015; 82010; 82947; 83036; 83690; 83735; 84100; 84132; 85025; 87070; 87081; 87086; 87088; 87324; 87449; 87804; 93005; 94640; 94760; 96361; 96374; 96375; 99284; J0696; J1170; J1200; J1644; J2270; J2405; J2550; J3411; J3475; J3480; J7030; J7605; U0003

== ENCOUNTER 2021-05-27 21:46 | Inpatient (IN) | payer SELFPAY ==
--- OUTSIDE RECORDS SUMMARY | 2021-05-27 21:50 | XMS REPORT | Continuity of Care Document ---
:1960 Author Organization [facility] t Address [address] [place] [address] Care Team Providers Name Role Phone KAREN CHIANG Attending Clinician Unavailable KAREN CHIANG Admitting Clinician Unavailable Problems Condition Condition Condition Status Onset Resolution Last Treating Co mments Source Name Details Category Date Date Treatment Clinician Date Type 2 Type [address] [facility] diabetes diabetes [facility] - mellitus mellitus Mem[facility] a without without l complicati complicati Ou tpati on on ent Clinics History of History of Problem Active [facility] hypokalemi hypokalemi Carmen kes - [facility] Pain in Pain in [...] [facility] Depression Depression Problem Active [facility] Allergic Allergic Problem Active [facility]initis, rhinitis, Luke [facility] - seasonal seasonal [facility] Allergies, Adverse Reactions, Alerts Allergy Allergy Status Severity Reaction(s) Onset Inactive Treating Comm ents Source Name Type Date Date Clinician Sulfa Adverse Active Info Not [facility] Reaction Available [facility] Medications Ordered Filled Start Stop Current Ordering Indication Dosage Frequency Signature Comments Components Source Medication Medication Date Date Medication? Clinician (SIG) Name Name Metformin Metformin Yes Nancy [address] [facility] HCl HCl 4-27 Millender with a [facility] - 00:00: meal [address] Procedures This patient has no known procedures. Encounters Start End Encounter Admission Attending Care Care Encounter Source Date/Time Date/Time Type Type Clinicians Facility Department ID 2017-12-01 2017-12-01 [facility] [id number] 09:06:00 09:06:00 [facility] 2017-11-22 2017-11-22 [facility] [id number] [facility] 13:28:00 13:28:00 [facility] 2017-10-28 2017-10-28 [facility] [id number] [facility] 15:25:00 15:25:00 [facility] 2017-10-27 2017-10-27 [facility] [id number] 11:53:00 11:53:00 [facility] 2017-10-25 2017-10-25 [place] [id number] [address] 13:30:00 13:30:00 [facility] Results Test Description Test Time Test Comments [...] NOT 1092) ACCURATE CRE ATININE CLEARANCE IN AR EDICTING GLOMERULAR FILT RATION RATE. ESTIMATED GFR IS NOT APPLICABLE FOR DIALYSIS PATIENTS. CBC W/PLT COUNT & AUTO [id number] 04:21:00 Test Item Value Reference Range Interpretation [...] PERCENT (BEAKER) (test code = 2801) POCT-GLUCOSE [id number] 22:00:00 Test Item Value Reference Range Interpretation Comments POC-GLUCOSE METER 148 mg/dL 70-110 H TESTED AT [place] [address] ([facility]) (test code = [facility] 1538) [id number] POCT-GLUCOSE [id number] 17:06:00 Test Item Value Reference Range Interpretation Comments POC-GLUCOSE METER 224 mg/dL 70-110 H TESTED AT [place] [address] ([facility]) (test code = [facility] 1538) [id number] POCT-GLUCOSE [id number] 12:39:00 Test Item Value Reference Range Interpretation Comments POC-GLUCOSE METER 214 mg/dL 70-110 H TESTED AT [place] [address] ([facility]) (test code = [facility] 1538) [id number] POCT-GLUCOSE [id number] 08:26:00 Test Item Value Reference Range Interpretation Comments POC-GLUCOSE METER 166 mg/dL 70-110 H TESTED AT [place] [address] ([facility]) (test code = [facility] 1538) [id number] COMPREHENSIVE METABOLIC [id number] 05:17:00 Test Item Value Reference Range Interpretation Comments TOTAL PROTEIN 6.3 gm/dL 6.0-8.3 (BEAKER) (test code = 770) ALBUMIN (AKER) 3.3 g/dL 3.5-5.0 L (test code = [...] S NOT APPLICABLE FOR DIALYSIS PATIEN TS. [id number] 05:14:00 Test Item Value Reference Range Interpretation Comments PHOSPHORUS (BEAKER) (test code = 2.9 mg/dL 2.3-4.7 604) [id number] 05:14:00 Test Item Value Reference Range Interpretation Comments MAGNESIUM (BEAKER) (test code = 1.6 mg/dL 1.6-2.6 627) CBC W/PLT COUNT & AUTO [id number] 04:48:00 Test Item Value Reference Range Interpretation [...] PERCENT (BEAKER) (test code = 2801) POCT-GLUCOSE [id number] 22:42:00 Test Item Value Reference Range Interpretation Comments POC-GLUCOSE METER 184 mg/dL 70-110 H TESTED AT [facility] 6720 (BEAKER) (test code = [facility] 1538) [id number] POCT-GLUCOSE [id number] 18:51:00 Test Item Value Reference Range Interpretation Comments POC-GLUCOSE METER 220 mg/dL 70-110 H TESTED AT [place] [address] (BEAKER) ([facility] = [facility] 15[facility]) [address] [id number] 16:07:00 Test Item Value Reference Range Interpretation Comments MAGNESIUM (BEAKER) (test code = 1.8 mg/dL 1.6-2.6 627) [id number] 16:07:00 Test Item Value Reference Range Interpretation Comments POTASSIUM (BEAKER) (test code = 4.1 meq/L 3.5-5.1 379) POCT-GLUCOSE [id number] 15:47:00 Test Item Value Reference Range Interpretation Comments POC-GLUCOSE METER 215 mg/dL 70-110 H TESTED AT [place] [address] (BEAKER) (test code = [facility] 1538) [id number] 10:16:00 Test Item Value Reference Range Interpretation Comments MAGNESIUM (BEAKER) (test code = 1.7 mg/dL 1.6-2.6 627) POCT-GLUCOSE [id number] 09:25:00 Test Item Value Reference Range Interpretation Comments POC-GLUCOSE METER 156 mg/dL 70-110 H TESTED AT [place] [address] (BEAKER) (test code = [facility] 1538) [address] BASIC METABOLIC [id number] 06:32:00 Test Item Value Reference Range Interpretation [...] PATIEN TS. CBC W/PLT COUNT & AUTO [id number] 05:42:00 Test Item Value Reference Range Interpretation [...] PERCENT (BEAKER) (test code = 2801) POCT-GLUCOSE [id number] 22:05:00 Test Item Value Reference Range Interpretation Comments POC-GLUCOSE METER 255 mg/dL 70-110 H TESTED AT [facility] 6720 ([place]) (test code = [place] 1538) [id number] MR, BRAIN, WITHOUT [id number] 19:23:00Reason for exam:->StrokeWhat is the patient's sedation [...] arteries: Normal flow-related enhancement within the bilateral HUB LEAD P1-P2 segments without flow-limiting stenosis. Bilateral functional type sampler pickup.Additional findings: None. MRA NECK:Common carotid arteries: Unremarkable. [...] MDReport Verified Date/Time: 12/08/2018 19:23:05 Reading Location: [address] Neuro Reading Room MR, MRA, NECK, WITHOUT IV [id number] 19:23:00FINAL REPORT MR, BRAIN, WITHOUT CONTRAST, MR, [...] arteries: Normal flow-related enhancement within the bilateral HUB LEAD P1-P2 segments without flow-limiting stenosis. Bilateral functional type sampler pickup.Additional findings: None. MRA NECK:Common carotid arteries: Unremarkable. [...] MDReport Verified Date/Time: 12/08/2018 19:23:05 Reading Location: [address] Neuro Reading Room MR, MRA, BRAIN, WITHOUT [id number] 19:23:00Reason for exam:->StrokeWhat is the patient's sedation [...] arteries: Normal flow-related enhancement within the bilateral HUB LEAD P1-P2 segments without flow-limiting stenosis. Bilateral functional type sampler pickup.Additional findings: None. MRA NECK:Common carotid arteries: Unremarkable. [...] cannot be excluded by imaging). Signed: Caty Bargereport Verified Date/Time: 12/08/2018 19:23:05 Reading Location: [facility] C013V Neuro Reading Room -GLUCOSE [id number] 19:03:00 Test Item Value Reference Range Interpretation Comments POC-GLUCOSE METER 158 mg/dL 70-110 H TESTED AT [facility] 6720 (BEAKER) (test code = [place] 1538) [id number] 17:33:00 Test Item Value Reference Range Interpretation Comments POTASSIUM (BEAKER) (test code = 4.0 meq/L 3.5-5.1 379) [id number] 17:33:00 Test Item Value Reference Range Interpretation Comments MAGNESIUM (BEAKER) (test code = 2.4 mg/dL 1.6-2.6 627) [id number] 14:55:00 Test Item Value Reference Range Interpretation Comments RPR SCREEN (BEAKER) (test code = Nonreactive Nonreactive 420) [id number] 12:28:00 Test Item Value Reference Range Interpretation Comments POTASSIUM (BEAKER) (test code = 2.9 meq/L 3.5-5.1 L 379) TROPONIN [id number] 10:59:00 Test Item Value Reference Range Interpretation [...] failure, acidosis, acute neurological disease, and persistent tachyarrhythmia.[id number] 10:50:00 Test Item Value Reference Range Interpretation Comments MAGNESIUM (BEAKER) (test code = 1.8 mg/dL 1.6-2.6 627) HEMOGLOBIN [id number] 07:49:00 Test Item Value Reference Range Interpretation Comments HEMOGLOBIN A1C (BEAKER) (test code = 8.1 % 4.3-6.1 H 368) HIV-1 ANTIGEN WITH HIV-1/2 [id number] 06:03:00 Test Item Value Reference Range Interpretation Comments HIV-1 ANTIGEN WITH HIV 1\T\2 Nonreactive Nonreactive ANTIBODY (2) (BEAKER) (test code = 2586) [id number] 05:54:00 Test Item Value Reference Range Interpretation Comments POTASSIUM (BEAKER) (test code = 2.8 meq/L 3.5-5.1 L 379) VITAMIN B12 AND [id number] 03:31:00 Test Item Value Reference Range Interpretation Comments VITAMIN B12 (BEAKER) (test code = 1168 pg/mL 213-816 H 774) FOLATE (BEAKER) (test code = 362) > ng/mL >=7.0 TSH/FREE T4 IF [id number] 03:24:00 Test Item Value Reference Range Interpretation Comments THYROID STIMULATING HORMONE 2.19 uIU/mL 0.35-4.94 (BEAKER) (test code = 772) BASIC METABOLIC [id number] 02:06:00 Test Item Value Reference Range Interpretation [...] m DATA TO CALCULA TE ESTIMATED GFR. [id number] 02:04:00 Test Item Value Reference Range Interpretation Comments MAGNESIUM (BEAKER) 1.5 mg/dL 1.6-2.6 L Specimen slightly (test code = 627) hemolyzed FastingLIPID [id number] 02:04:00 Test Item Value Reference Range Interpretation [...] High >=190 FastingCBC W/PLT COUNT & AUTO [id number] 01:36:00 Test Item Value Reference Range Interpretation [...] 0-1 PERCENT (BEAKER) (test code = 2801) [id number] 23:06:00 Test Item Value Reference Range Interpretation Comments ETHANOL (BEAKER) (test code = 400) < mg/dL <=10 TROPONIN [id number] 22:58:00 Test Item Value Reference Range Interpretation [...] acute neurological disease, and persistent tachyarrhythmia.BASIC METABOLIC [id number] 22:56:00 Test Item Value Reference Range Interpretation [...] DATA TO CALCULA TE ESTIMATED GFR. URINALYSIS [id number] 22:41:00 Test Item Value Reference Range Interpretation Comments RBC UA (BEAKER) (test code = 519) 1 /HPF WBC UA (BEAKER) (test code = 520) < /HPF SQUAMOUS EPITHELIAL (BEAKER) (test 7 /HPF code = 516) HYALINE CASTS (BEAKER) (test code = 2 /LPF 514) URINALYSIS WITH MICROSCOPIC IF [id number] 22:36:00 Test Item Value Reference Range Interpretation [...] SOURCE(BEAKER) (test code = 2795) BASIC METABOLIC [id number] 19:01:00 Test Item Value Reference Range Interpretation [...] m DATA TO CALCULA TE ESTIMATED GFR. [id number] 19:01:00 Test Item Value Reference Range Interpretation Comments MAGNESIUM (BEAKER) (test code = 0.7 mg/dL 1.6-2.6 LL 627) [id number] 18:58:00 Test Item Value Reference Range Interpretation Comments PHOSPHORUS (BEAKER) (test code = 3.3 mg/dL 2.3-4.7 604) HEPATIC FUNCTION [id number] 18:58:00 Test Item Value Reference Range Interpretation [...]
[2021-05-27 23:02] LABS: Protime INR 0.95
[2021-05-27 23:03] LABS: Absolute Lymphocytes (CBC) 2.3 K/uL (0.7-4.9); Basophils % 0.3 % (0-1.3); Hematocrit 41.6 % (36.0-45.0); Lymphocytes % 22.1 % (15.3-44.8); MPV 8.3 fL (7.6-11.3); RBC Red Blood Cell Count 4.33 M/uL (3.86-4.86)
[2021-05-27 23:27] LABS: ALT/SGPT 32 U/L (12-78); AST/SGOT 34 U/L (15-37); Albumin 3.9 g/dL (3.4-5.0); Alkaline Phosphatase 63 U/L (45-117); BUN Blood Urea Nitrogen 44 mg/dL (7-18); Bicarbonate 24 mmol/L (21-32); Bilirubin Direct 0.2 mg/dL (0-0.2); Bilirubin Total 0.8 mg/dL (0.2-1.0); Glucose Level 93 mg/dL (74-106); Magnesium 1.6 mg/dL (1.8-2.4); NT PRO-BNP 99 pg/mL (<125); Protein, Total 7.8 g/dL (6.4-8.2); Sodium Level 134 mmol/L (136-145); Troponin (Emerg Dept Use Only) < 0.02 ng/mL (0.0-0.045)
[2021-05-27 23:28] LABS: Potassium 2.7 mmol/L (3.5-5.1)
[2021-05-27] MEDS ORDERED: ASPIRIN 81 MG CHEWABLE TABLET ONE (23:37)
[2021-05-27] MEDS ORDERED: FENTANYL CITR 100 MCG/2 ML ONE (23:38)
[2021-05-27] MEDS ORDERED: NA CHLORIDE 0.9% 1,000 ML ONE (23:38)
[2021-05-27] MEDS ORDERED: POTASSIUM CL SA 10 MEQ TAB PO ONE (23:38)
[2021-05-27] MEDS ORDERED: Magnesium Sulfate 2gm IVPB 2 G/50 ML BAG IV ONE (23:39)
[2021-05-27] MEDS ORDERED: KCL 20 MEQ/100 mL IVPB 20 MEQ/100 ML BAG IV ONE (23:39)
--- NOTE | 2021-05-28 00:23 | ER ---
Nurse's Notes [facility] Name: Billie Botello Age: 60 yrs Sex: Female : 1960 Arrival Date: 05/27/2021 Time: 21:49 Bed 19 Private MD: Diagnosis: Chest pain, unspecified;Hypokalemia;Hypomagnesemia Presentation: 05/27 22:19 Chief complaint: Patient states: she started having chest pain 2 hours ago with bb light-headedess and nausea. Coronavirus screen: At this time, the client does not indicate any symptoms associated with coronavirus-19. Ebola Screen: No symptoms or risks identified at this time. Initial Sepsis Screen: Does the patient meet any 2 criteria? No. Patient's initial sepsis screen is negative. Does the patient have a suspected source of infection? No. Patient's initial sepsis screen is negative. Risk Assessment: Do you want to hurt yourself or someone else? Patient reports no desire to harm self or others. Onset of symptoms was May 27, 2021. 22:19 Method Of Arrival: Ambulatory bb 22:19 Acuity: NIKA 3 bb Historical: - Allergies: 22:20 Bactrim; bb 22:20 Sulfa (Sulfonamide Antibiotics); bb 22:20 Trazodone; bb 22:20 TRIMETHOPRIM; bb - Home Meds: 22:20 amlodipine oral [Active]; Aspirin Oral [Active]; carvedilol Oral [Active]; citalopram bb oral [Active]; fenofibrate Oral [Active]; Hydrochlorothiazide Oral [Active]; Methocarbamol Oral [Active]; Omeprazole Oral [Active]; - PMHx: 22:20 Diabetes - NIDDM; etoh abuse; High Cholesterol; Hypertension; Pancreatitis; bb - PSHx: 22:20 section; Tonsillectomy; Appendectomy; right wrist; left foot; bb - Immunization history:: Adult Immunizations up to date, Client reports receiving the 2nd dose of the Covid vaccine. - Social history:: Smoking status: Patient reports the use of cigarette tobacco products, smokes one-half pack cigarettes per day, Patient uses alcohol, quit a couple of weeks ago. Patient/guardian denies using street drugs. Screenin:30 Abuse screen: Denies threats or abuse. Nutritional screening: No deficits noted. bb Tuberculosis screening: No symptoms or risk factors identified. Fall Risk None identified. Assessment: 22:30 General: Appears uncomfortable, Behavior is calm, cooperative. Pain: Complains of pain bb in chest Pain does not radiate. Pain began 3 hours ago. Neuro: Level of Consciousness is awake, alert, obeys commands, Oriented to person, place, time, situation. Cardiovascular: Heart tones S1 S2 present Capillary refill < 3 seconds Patient's skin is warm and dry. Pulses are all present. Edema is absent. Rhythm is sinus rhythm. Respiratory: Respiratory effort is even, unlabored, Respiratory pattern is regular, Breath sounds are clear bilaterally. GI: Abdomen is round. : No signs and/or symptoms were reported regarding the genitourinary system. Derm: Skin is pink, warm \T\ dry. Musculoskeletal: Circulation, motion, and sensation intact. 23:58 Reassessment: Patient is alert, oriented x 3, equal unlabored respirations, skin bb warm/dry/pink. pt medicated for pain see SEP. 05/28 00:48 Reassessment: Patient is alert, oriented x 3, equal unlabored respirations, skin bb warm/dry/pink. pt states pain is still 6/10 awaiting room assignment. 01:45 Reassessment: Patient is alert, oriented x 3, equal unlabored respirations, skin bb warm/dry/pink. pt states pain is getting worse pt medic[facility] IV site to left AC patent, intact with fluids infusing pt instructed on need for admission and agrees to plan of care. Vital Signs: 05/27 22:03 BP 121 / 72; Pulse 77; Resp 20 S; Temp 98.6(O); Pulse Ox 100% on R/A; Weight 78 kg (M); bb Height 5 ft. 4 in. (162.56 cm) (R); 23:00 BP 119 / 83; Pulse 72; Resp 18 S; Pulse Ox 99% on R/A; bb 05/28 00:00 BP 137 / 89; Pulse 77; Resp 16 S; Pulse Ox 100% on R/A; Pain 6/10; bb 00:49 BP 133 / 84; Pulse 70; Resp 14 S; Pulse Ox 95% on R/A; Pain 6/10; bb 01:30 BP 124 / 63; Pulse 67; Resp 18 S; Temp 98(O); Pulse Ox 98% on R/A; bb 05/27 22:03 Body Mass Index 29.52 (78.00 kg, 162.56 cm) bb ED Course: 05/27 21:49 Patient arrived in ED. mr 22:20 Triage completed. bb 22:20 Arm band placed on Patient placed in an exam room, on a stretcher, on school bus monitor, bb on pulse oximetry. EKG completed in triage. Results shown to MD. 22:25 Missed attempt(s): 20 gauge in right antecubital area. Bleeding controlled, band aid bb applied, catheter tip intact. 22:30 Patient has correct armband on for positive identification. Call light in reach. Side bb rails up X 1. monitor worker on. Pulse ox on. NIBP on. Warm blanket given. 22:38 Sergo Medina PA is PHCP. jr8 22:38 Eduard Penaloza MD is Attending Physician. jr8 22:50 Initial lab(s) drawn, by ak, sent to lab. Inserted saline lock: 20 gauge in left bb antecubital area, using aseptic technique. Blood collected. 22:55 XRAY Chest (1 view) Sent. bb 22:55 Basic Metabolic Panel Sent. bb 22:56 XRAY Chest (1 view) In Process Unspecified. EDMS 23:01 Patient maintains SpO2 saturation greater than 95% on room air. bb 23:52 Notified ED physician of a critical lab result(s). D Dimer 1322. tw5 23:58 Loni Nguyen, RN is Primary Nurse. bb 05/28 00:01 DD Sent. bb 00:22 Uvadlo Rodriguez MD is Hospitalizing Provider. jr8 00:23 Jim Gilman DO is Hospitalizing Provider. jr8 00:28 Uvaldo Rodriguez MD is Hospitalizing Provider. jr8 02:32 No provider procedures requiring assistance completed. Patient admitted, IV remains in bb place. Administered Medications: 05/27 23:40 Drug: fentaNYL (PF) 50 mcg {Note: RASS 0.} Route: IVP; Site: left antecubital; bb 05/28 00:30 Follow up: Response: No adverse reaction; Pain is decreased; RASS: Alert and Calm (0) bb 05/27 23:40 Drug: NS 0.9% 1000 ml Route: IV; Rate: 1 bolus; Site: left antecubital; bb 05/28 02:02 Follow up: IV Status: Completed infusion; IV Intake: 1000ml bb 05/27 23:41 Drug: Aspirin Chewable Tablet 324 mg Route: PO; bb 05/28 01:05 Follow up: Response: No adverse reaction bb 05/27 23:41 Drug: Potassium Chloride 20 mEq Route: PO; bb 05/28 01:05 Follow up: Response: No adverse reaction bb 05/27 23:42 Drug: Potassium Chloride 20 mEq Route: IV; Rate: calculated rate; Site: left antecubital; 05/28 01:45 Follow up: IV Status: Completed infusion; IV Intake: 100ml bb 05/27 23:42 Drug: Magnesium Sulfate 2 grams Route: IVPB; Infused Over: 2 hrs; Site: left antecubital; 05/28 01:04 Follow up: Response: No adverse reaction; IV Status: Completed infusion; IV Intake: 50mlbb 01:55 Drug: Heparin (DVT/PE Drip) 18 units/kg/hr - (HEParin 24319 units, D5W 500 ml) bb {Co-Signature: tw5 (Lydia Pretty).} Route: IV; Rate: calculated rate; Site: left antecubital; 02:02 Follow up: IV Status: Infusion continued upon admission bb 01:55 Drug: Heparin (DVT/PE- Bolus per protocol) - HEParin 80 units/kg {Co-Signature: tw5 bb (Lydia Pretty).} Route: IVP; Site: left antecubital; 02:02 Follow up: Response: No adverse reaction bb Intake: 01:04 IV: 50ml; Total: 50ml. bb 01:45 IV: 100ml; Total: 150ml. bb 02:02 IV: 1000ml; Total: 1150ml. bb Outcome: 00:23 Decision to Hospitalize by Provider. jr8 02:32 Admitted to Tele accompanied by tech, via wheelchair, room 213, with chart, Report bb called to Sebastian OLIVEIRA 02:32 Condition: stable 02:32 Instructed on the need for admit. 02:32 Patient left the ED. bb Signatures: Dispatcher Taylor Cintron Brenda RN RN Sergo Lyle PA PA jr8 Shelly Joseph mw2 Sukhwinder, Lydia tw5 Lydia Pretty tw5 Corrections: (The following items were deleted from the chart) 00:51 05/27 22:03 BP 121 / 72; Pulse 77bpm; Resp 20bpm; Spontaneous; Pulse Ox 100% RA; Temp bb 98.6F Oral; mw2 05/28 00:57 05/27 22:03 BP 121 / 72; Pulse 77bpm; Resp 20bpm; Spontaneous; Pulse Ox 100% RA; Temp bb 98.6F Oral; 84.82 kg Reported; Height 5 ft. 4 in. Reported; BMI: 32.1; bb
--- NOTE | 2021-05-28 00:23 | EDPHYS ---
Physician Documentation [facility] Name: Billie Botello Age: 60 yrs Sex: Female : 1960 Arrival Date: 05/27/2021 Time: 21:49 Bed 19 Private MD: ED Physician Eduard Penaloza HPI: 05/28 00:00 This 60 yrs old Female presents to ER via Ambulatory with complaints of Chest Pain, jr8 Numbness Of Arm. 00:00 Onset: The symptoms/episode began/occurred acutely, today. The patient has not jr8 experienced similar symptoms in the past. The patient has not recently seen a physician. 00:01 The pain does not radiate. Associated signs and symptoms: The patient has no apparent jr8 associated signs or symptoms. The chest pain is described as sharp. Duration: The patient or guardian reports a single episode, that is still ongoing. This is a 60-year-old female patient that presented to the emergency room with sudden onset of left-sided chest pain and arm pain. Patient describes it as pleuritic in nature. Denies any recent trauma.. Historical: - Allergies: 05/27 22:20 Bactrim; bb 22:20 Sulfa (Sulfonamide Antibiotics); bb 22:20 Trazodone; bb 22:20 TRIMETHOPRIM; bb - Home Meds: 22:20 amlodipine oral [Active]; Aspirin Oral [Active]; carvedilol Oral [Active]; citalopram bb oral [Active]; fenofibrate Oral [Active]; Hydrochlorothiazide Oral [Active]; Methocarbamol Oral [Active]; Omeprazole Oral [Active]; - PMHx: 22:20 Diabetes - NIDDM; etoh abuse; High Cholesterol; Hypertension; Pancreatitis; bb - PSHx: 22:20 section; Tonsillectomy; Appendectomy; right wrist; left foot; bb - Immunization history:: Adult Immunizations up to date, Client reports receiving the 2nd dose of the Covid vaccine. - Social history:: Smoking status: Patient reports the use of cigarette tobacco products, smokes one-half pack cigarettes per day, Patient uses alcohol, quit a couple of weeks ago. Patient/guardian denies using street drugs. ROS: 05/28 00:01 Eyes: Negative for injury, pain, redness, and discharge, ENT: Negative for injury, jr8 pain, and discharge, Neck: Negative for injury, pain, and swelling, Respiratory: Negative for shortness of breath, cough, wheezing, and pleuritic chest pain, Abdomen/GI: Negative for abdominal pain, nausea, vomiting, diarrhea, and constipation, Back: Negative for injury and pain, MS/Extremity: Negative for injury and deformity, Skin: Negative for injury, rash, and discoloration, Neuro: Negative for headache, weakness, numbness, tingling, and seizure. Cardiovascular: Positive for chest pain, Negative for edema, orthopnea, palpitations, paroxysmal nocturnal dyspnea. Exam: 00:01 Eyes: Pupils equal round and reactive to light, extra-ocular motions intact. Lids and jr8 lashes normal. Conjunctiva and sclera are non-icteric and not injected. Cornea within normal limits. Periorbital areas with no swelling, redness, or edema. ENT: Nares patent. No nasal discharge, no septal abnormalities noted. Tympanic membranes are normal and external auditory canals are clear. Oropharynx with no redness, swelling, or masses, exudates, or evidence of obstruction, uvula midline. Mucous membranes moist. Neck: Trachea midline, no thyromegaly or masses palpated, and no cervical lymphadenopathy. Supple, full range of motion without nuchal rigidity, or vertebral point tenderness. No Meningismus. Chest/axilla: Normal chest wall appearance and motion. Nontender with no deformity. No lesions are appreciated. Cardiovascular: Regular rate and rhythm with a normal S1 and S2. No gallops, murmurs, or rubs. Normal PMI, no JVD. No pulse deficits. Respiratory: Lungs have equal breath sounds bilaterally, clear to auscultation and percussion. No rales, rhonchi or wheezes noted. No increased work of breathing, no retractions or nasal flaring. Abdomen/GI: Soft, non-tender, with normal bowel sounds. No distension or tympany. No guarding or rebound. No evidence of tenderness throughout. Back: No spinal tenderness. No costovertebral tenderness. Full range of motion. Skin: Warm, dry with normal turgor. Normal color with no rashes, no lesions, and no evidence of cellulitis. MS/ Extremity: Pulses equal, no cyanosis. Neurovascular intact. Full, normal range of motion. Neuro: Awake and alert, GCS 15, oriented to person, place, time, and situation. Cranial nerves II-XII grossly intact. Motor strength 5/5 in all extremities. Sensory grossly intact. 00:01 Constitutional: The patient appears alert, awake, in obvious pain. Vital Signs: 05/27 22:03 BP 121 / 72; Pulse 77; Resp 20 S; Temp 98.6(O); Pulse Ox 100% on R/A; Weight 78 kg (M); bb Height 5 ft. 4 in. (162.56 cm) (R); 23:00 BP 119 / 83; Pulse 72; Resp 18 S; Pulse Ox 99% on R/A; bb 05/28 00:00 BP 137 / 89; Pulse 77; Resp 16 S; Pulse Ox 100% on R/A; Pain 6/10; bb 00:49 BP 133 / 84; Pulse 70; Resp 14 S; Pulse Ox 95% on R/A; Pain 6/10; bb 01:30 BP 124 / 63; Pulse 67; Resp 18 S; Temp 98(O); Pulse Ox 98% on R/A; bb 05/27 22:03 Body Mass Index 29.52 (78.00 kg, 162.56 cm) bb MDM: 05/27 22:39 Patient medically screened. [facility] 05/28 00:07 Differential diagnosis: acute myocardial infarction, acute pericarditis, anxiety, chest jr8 wall pain, costochondritis, esophagitis, pancreatitis, pleurisy, pneumonia, pneumothorax, pulmonary embolus, stable angina, thoracic aortic disection, unstable angina. The patient was given aspirin in the Emergency Department. Data reviewed: vital signs, nurses notes, lab test result(s), EKG, radiologic studies, plain films. Data interpreted: Pulse oximetry: on room air is 100 %. Interpretation: normal. Counseling: I had a detailed discussion with the patient and/or guardian regarding: the historical points, exam findings, and any diagnostic results supporting the discharge/admit diagnosis, lab results, radiology results, the need for further work-up and treatment in the hospital. 05/27 22:38 Order name: Basic Metabolic Panel [facility] 05/27 22:38 Order name: CBC with Diff; Complete Time: 23:06 [facility] 05/27 22:38 Order name: LFT's; Complete Time: 23:35 [facility] 05/27 22:38 Order name: Magnesium; Complete Time: 23:35 [facility] 05/27 22:38 Order name: NT PRO-BNP; Complete Time: 23:35 [facility] 05/27 22:38 Order name: PT-INR; Complete Time: 01:50 [facility] 05/27 22:38 Order name: Troponin (emerg Dept Use Only); Complete Time: 23:35 [facility] 05/27 22:39 Order name: Basic Metabolic Panel; Complete Time: 23:35 EDMS 05/27 23:43 Order name: DD [facility] 05/27 23:44 Order name: D-Dimer; Complete Time: 01:50 EDMS 05/28 00:42 Order name: SARS-COV-2 RT PCR; Complete Time: 01:50 EDMS 05/28 01:38 Order name: Ptt, Activated 05/27 22:03 Order name: EKG; Complete Time: 22:04 [facility] 05/27 22:03 Order name: EKG - Nurse/Tech; Complete Time: 22:03 [facility] 05/27 22:38 Order name: XRAY Chest (1 view) [facility] 05/27 22:38 Order name: Cardiac monitoring; Complete Time: 22:55 [facility] 05/27 22:38 Order name: IV Saline Lock; Complete Time: 22:55 [facility] 05/27 22:38 Order name: Labs collected and sent; Complete Time: 22:54 [facility] 05/27 22:38 Order name: O2 Per Protocol; Complete Time: 22:54 [facility] 05/28 01:49 Order name: PTT, Activated Partial Thromb; Complete Time: 01:50 EDRI 05/27 22:38 Order name: O2 Sat Monitoring; Complete Time: 22:54 [facility] Administered Medications: 05/27 23:40 Drug: fentaNYL (PF) 50 mcg {Note: RASS 0.} Route: IVP; Site: left antecubital; 05/28 00:30 Follow up: Response: No adverse reaction; Pain is decreased; RASS: Alert and Calm (0) 05/27 23:40 Drug: NS 0.9% 1000 ml Route: IV; Rate: 1 bolus; Site: left antecubital; 05/28 02:02 Follow up: IV Status: Completed infusion; IV Intake: 1000ml 05/27 23:41 Drug: Aspirin Chewable Tablet 324 mg Route: PO; 05/28 01:05 Follow up: Response: No adverse reaction bb 05/27 23:41 Drug: Potassium Chloride 20 mEq Route: PO; 05/28 01:05 Follow up: Response: No adverse reaction 05/27 23:42 Drug: Potassium Chloride 20 mEq Route: IV; Rate: calculated rate; Site: left antecubital; 05/28 01:45 Follow up: IV Status: Completed infusion; IV Intake: 100ml bb 05/27 23:42 Drug: Magnesium Sulfate 2 grams Route: IVPB; Infused Over: 2 hrs; Site: left antecubital; 05/28 01:04 Follow up: Response: No adverse reaction; IV Status: Completed infusion; IV Intake: 50mlbb 01:55 Drug: Heparin (DVT/PE Drip) 18 units/kg/hr - (HEParin 38638 units, D5W 500 ml) bb {Co-Signature: tw5 (Lydia Pretty).} Route: IV; Rate: calculated rate; Site: left antecubital; 02:02 Follow up: IV Status: Infusion continued upon admission bb 01:55 Drug: Heparin (DVT/PE- Bolus per protocol) - HEParin 80 units/kg {Co-Signature: tw5 bb (Lydia Pretty).} Route: IVP; Site: left antecubital; 02:02 Follow up: Response: No adverse reaction bb Disposition: 03:49 Co-signature as Attending Physician, Eduard Penaloza MD I agree with the assessment and kdr plan of care. Disposition Summary: 05/28/21 00:23 Hospitalization Ordered Hospitalization Status: Observation jr8 Location: Telemetry/[facility] (observation) jr8 Condition: Stable jr8 Problem: new jr8 Symptoms: are unchanged jr8 Bed/Room Type: Standard jr8 Provider: Uvaldo Rodriguez(05/28/21 00:28) jr8 Room Assignment: [facility](05/28/21 01:35) [facility] Diagnosis - Chest pain, unspecified jr8 - Hypokalemia jr8 - Hypomagnesemia jr8 Forms: - Medication Reconciliation Form jr8 - SBAR form jr8 Signatures: Dispatcher [employer] EDRI Eduard Penaloza MD MD kdr Ballard, Brenda, RN RN bb Sergo Medina PA PA jr8 Shelly Joseph mw2 Iman Santos RN RN eb1 Lydia Pretty tw5 Corrections: (The following items were deleted from the chart) 05/27 23:44 23:43 D-Dimer ordered. EDMS EDMS 05/28 00:28 00:23 Kalina Jim jr8 jr8 00:42 00:28 CORONAVIRUS+MRJEREMY.BRZ ordered. EDMS EDMS 01:35 00:23 jr8 eb1
--- NOTE | 2021-05-28 01:13 | P.HP ---
Certification for Inpatient Patient admitted to: Observation With expected LOS: <2 Midnights Patient will require the following post-hospital care: None Practitioner: I am a practitioner with admitting privileges, knowledge of patient current condition, hospital course, and medical plan of care. Services: Services provided to patient in accordance with Admission requirements found in Title 42 Section 412.3 of the Code of Federal Regulations <Minh Ortiz - Last Filed: 05/28/21 01:07> Patient History Date of Service: 05/28/21 Reason for admission: CARLOTA, chest pain History of Present Illness: Ms. Botello is a 60 yo F with HTN, HLD, T2DM who presents with 04/12 sudden onset left sided chest pain radiating down her left arm beginning yesterday at 7:30pm while at rest. She says the pain was constant and continued to worsen. She describes it as stabbing. Since arrival to the ED, she says the pain has begun to move to her abdomen. Pain is worse with deep breaths, relieved with pain medication. Reports nausea, vomiting, lightheadedness. Denies dizziness, palpitations. DD 1322 Na 134 K 2.7 Cl 95 BUN 44 Cr 1.87 GFR 27 Mg 1.6. Initial troponin wnl. - Past Medical/Surgical History Diabetic: Yes -: HTN -: Hyperlipidemia -: GERD -: CVA x2 -: Tobacco abuse -: Diabetes mellitus type 2 insulin-dependent -: renal insufficiency -: -: R wrist Sx (metal plate) -: rectal polyps removed -: Left ankle orif -: ectopic Psychosocial/ Personal History: The patient is single. She has 1 child. Retired - Family History Sister -: Lung disease, Diabetes Notes: asthma Mother -: Heart disease, Cancer Father -: Heart disease - Social History Smoking Status: Unknown if ever smoked Alcohol use: Yes CD- Drugs: Yes Caffeine use: No Place of Residence: Home <Minh Ortiz - Last Filed: 05/28/21 01:07> Date of Service: 05/28/21 <Uvaldo Rodriguez - Last Filed: 05/28/21 13:56> Allergies sulfamethoxazole [From Bactrim] Allergy (Intermediate, Verified 05/07/20 21:54) Rash trimethoprim [From Bactrim] Allergy (Intermediate, Verified 05/07/20 21:54) Rash Sulfa (Sulfonamide Antibiotics) Allergy (Verified 05/07/20 21:54) Unknown trazodone Allergy (Verified 05/07/20 21:54) Itching Home Medications: Aspirin [Aspirin EC 81 MG] 81 mg PO DAILY #90 tablet. 01/01/18 Atorvastatin Calcium [Lipitor] 40 mg PO BEDTIME #30 tab 02/20/19 Citalopram [Celexa*] 40 mg PO DAILY 06/08/20 Omeprazole [Prilosec] 1 tab PO DAILY 06/08/20 Amlodipine [Norvasc*] 10 mg PO DAILY 01/13/21 Carvedilol [Coreg] 12.5 mg PO BID 01/13/21 hydroCHLOROthiazide [Hydrochlorothiazide] 25 mg PO DAILY 01/13/21 Cetirizine HCl [Zyrtec] 10 mg PO DAILY 05/28/21 Fenofibrate [Tricor*] 145 mg PO DAILY 05/28/21 Insulin Detemir [Levemir] 10 units SQ BEDTIME 05/28/21 Insulin Detemir [Levemir] 40 units SQ DAILY 05/28/21 Ondansetron HCl [Zofran] 8 mg PO BID PRN 05/28/21 Review of Systems 10-point ROS is otherwise unremarkable General: Unremarkable Eyes: Unremarkable ENT: Unremarkable Respiratory: Pleuritic Pain, As per HPI Cardiovascular: Chest Pain, Light Headedness, As per HPI Gastrointestinal: Nausea, Vomiting Genitourinary: Unremarkable Musculoskeletal: Shoulder Pain, Arm Pain Integumentary: Unremarkable Neurological: Unremarkable Lymphatics: Unremarkable <Minh Ortiz - Last Filed: 05/28/21 01:07> Physical Examination - Physical Exam General: Alert, In no apparent distress HEENT: Atraumatic, PERRLA, Mucous membr. moist/pink, EOMI, Sclerae nonicteric Neck: Supple, 2+ carotid pulse no bruit, No LAD, Without JVD or thyroid abnormality Respiratory: Clear to auscultation bilaterally, Normal air movement Cardiovascular: Regular rate/rhythm, Normal S1 S2 Gastrointestinal: Normal bowel sounds, No tenderness Musculoskeletal: No tenderness Integumentary: No rashes Neurological: Normal speech, Normal strength at 5/5 x4 extr, Normal tone, Normal affect Lymphatics: No axilla or inguinal lymphadenopathy - Studies Laboratory Data (last 24 hrs) 11/24/21 22:50: PT 10.9, INR 0.95 05/27/21 22:50: WBC 10.50, Hgb 14.0, Hct 41.6, Plt Count 336 05/27/21 22:50: Sodium 134 L, Potassium 2.7 L*, BUN 44 H, Creatinine 1.87 H, Glucose 93, Magnesium 1.6 L D, Total Bilirubin 0.8, AST 34, ALT 32, Alkaline Phosphatase 63 <Minh Ortiz - Last Filed: 05/28/21 01:07> - Studies Laboratory Data (last 24 hrs) 05/28/21 06:09: Triglycerides 152 H, Cholesterol 180, HDL Cholesterol 44, Cholesterol/HDL Ratio 4.09 05/28/21 06:09: APTT 103.5 H* 05/28/21 06:09: Sodium 135 L, Potassium 2.3 L*, BUN 40 H, Creatinine 1.59 H, Glucose 125 H, Phosphorus 2.9, Magnesium 2.4 D, Total Bilirubin 0.7, AST 27, ALT 26, Alkaline Phosphatase 59, Troponin I < 0.02, Amylase 291 H*, Lipase 4758 H 05/28/21 06:09: WBC 8.70 D, Hgb 13.6, Hct 40.0, Plt Count 282 05/28/21 01:38: APTT Cancelled 05/27/21 22:50: PT 10.9, INR 0.95, APTT 25.4 05/27/21 22:50: WBC 10.50, Hgb 14.0, Hct 41.6, Plt Count 336 05/27/21 22:50: Sodium 134 L, Potassium 2.7 L*, BUN 44 H, Creatinine 1.87 H, Glucose 93, Magnesium 1.6 L D, Total Bilirubin 0.8, AST 34, ALT 32, Alkaline Phosphatase 63 <Uvaldo Rodriguez - Last Filed: 05/28/21 13:56> Assessment and Plan - Problems (Diagnosis) (1) Acute renal failure Current Visit: No Status: Acute Qualifiers: Acute renal failure type: unspecified Qualified Code(s): N17.9 - Acute kidney failure, unspecified (2) Chest pain, rule out acute myocardial infarction Onset Date: 05/30/17 Current Visit: No Status: Acute (3) Hypokalemia Onset Date: 11/24/15 Current Visit: No Status: Acute (4) Hypomagnesemia Onset Date: 11/24/15 Current Visit: No Status: Acute (5) Diabetes mellitus Onset Date: 12/30/17 Current Visit: No Status: Chronic Qualifiers: Diabetes mellitus type: type 2 Diabetes mellitus longterm insulin use: with longterm use Diabetes mellitus complication status: with kidney compl ications Diabetes mellitus complication detail: with chronic kidney disease Chronic kidney disease stage: unspecified stage Qualified Code(s): E11.22 - Type 2 diabetes mellitus with diabetic chronic kidney disease; Z79.4 - retirement (current) use of insulin (6) Hyperlipidemia Onset Date: 11/24/15 Current Visit: No Status: Chronic (7) Hypertension Onset Date: 11/24/15 Current Visit: No Status: Chronic Qualifiers: Hypertension type: primary hypertension Qualified Code(s): I10 - Essential (primary) hypertension (8) Abdominal pain Current Visit: No Status: Acute Qualifiers: Abdominal location: left upper quadrant Qualified Code(s): R10.12 - Left upper quadrant pain - Plan VQ scan in the AM continue heparin drip trend troponin lipid and thyroid panel pending pain management as needed continue IVF hydration, potassium and magnesium replacement, monitor kidney function reconcile and continue home medications - ASA, BB, statin Discharge Plan: Home Plan to discharge in: 24 Hours - Advance Directives Does patient have a Living Will: No Does patient have a Durable POA for Healthcare: No - Code Status/Comfort Care Code Status Assessed: Yes (full code ) Critical Care: No Time Spent Managing Pts Care (In Minutes): 70 <Minh Ortiz - Last Filed: 05/28/21 01:07> - Plan Patient seen and examined this morning on rounds. Continues to report some left-sided chest pain, as well as some epigastric pain Tender to palpation over left chest, with moderate tenderness to palpation in epigastrium as well Further work-up this morning revealed significantly elevated lipase, elevated amylase Also reported some nausea and vomiting yesterday and early this morning Clinically with acute pancreatitis, has a history of recurrent pancreatitis We will check lipid panel. LFTs within normal limits Renal function minimally improved, patient appears dry, likely volume depleted from its possible pancreatitis Patient also reported some heavier diarrhea a few days ago Stop drinking alcohol 12 days ago Consult nephrology VQ scan with low probability for PE, discontinue heparin, DVT prophylaxis with Lovenox ordered <Uvaldo Rodriguez - Last Filed: 05/28/21 13:56>
[2021-05-28] MEDS ORDERED: HEPARIN/D5W 25,000 UNIT/500 ML BAG IV ONE (01:38)
[2021-05-28] MEDS ORDERED: HEPARIN 5000 UNIT/ML 1 ML VIAL ONE (01:38)
[2021-05-28] MEDS ORDERED: HEPARIN/D5W 25,000 UNIT/500 ML BAG IV SCH (01:44)
[2021-05-28] MEDS ORDERED: D50W 25 GM/50 ML SYRINGE IV PRN (01:44)
[2021-05-28] MEDS ORDERED: GLUCAGON 1 MG/VIAL IM PRN (01:44)
[2021-05-28] MEDS ORDERED: ACETAMINOPHEN 500 MG TAB PO PRN (01:44)
[2021-05-28] MEDS ORDERED: MORPHINE 2 MG/ML SYR ONE (01:46)
[2021-05-28] MEDS ORDERED: ONDANSETRON 4 MG/2 ML VIAL ONE (01:47)
[2021-05-28] MEDS: MORPHINE 2 MG/ML SYR IV PRN ×4 (02:07→23:43)
[2021-05-28] MEDS: ONDANSETRON 4 MG/2 ML VIAL IV PRN (02:08)
[2021-05-28] MEDS: NS KCL 20MEQ 20 MEQ/1,000 ML BAG IV SCH ×2 (03:28→11:44)
[2021-05-28] MEDS: ZOLPIDEM TARTRATE 5 MG TABLET PO PRN ×2 (03:28→22:09)
[2021-05-28] MEDS ORDERED: FENTANYL CITR 100 MCG/2 ML IV ONE (03:45)
[2021-05-28 06:35] LABS: Absolute Lymphocytes (CBC) 1.6 K/uL (0.7-4.9); Basophils % 0.2 % (0-1.3); Lymphocytes % 18.4 % (15.3-44.8); MPV 8.5 fL (7.6-11.3); RBC Red Blood Cell Count 4.14 M/uL (3.86-4.86)
[2021-05-28 06:54] LABS: ALT/SGPT 26 U/L (12-78); AST/SGOT 27 U/L (15-37); Albumin 3.3 g/dL (3.4-5.0); Alkaline Phosphatase 59 U/L (45-117); Amylase 291 U/L (25-115); BUN Blood Urea Nitrogen 40 mg/dL (7-18); Bicarbonate 25 mmol/L (21-32); Bilirubin Total 0.7 mg/dL (0.2-1.0); Creatine Phosphokinase 60 U/L (26-192); Glucose Level 125 mg/dL (74-106); Lipase 4758 U/L (73-393); Magnesium 2.4 mg/dL (1.8-2.4); Phosphorus 2.9 mg/dL (2.5-4.9); Sodium Level 135 mmol/L (136-145); Troponin I < 0.02 ng/mL (0.0-0.045)
[2021-05-28 06:56] LABS: Potassium 2.3 mmol/L (3.5-5.1)
--- NOTE | 2021-05-28 07:20 | RAD REPORT ---
EXAM DESCRIPTION: Jassi Single View05/27/2021 10:56 pm CLINICAL HISTORY: Chest pain COMPARISON: January 2021 FINDINGS: The lungs appear clear of acute infiltrate. The heart is normal size IMPRESSION: No acute abnormalities displayed
[2021-05-28] MEDS: INSULIN -REGULAR HUMAN 50 UNIT/0.5 ML ML SQ SCH ×4 (07:30→20:00)
[2021-05-28] MEDS: ASPIRIN EC 81 MG TAB PO SCH (08:16)
[2021-05-28] MEDS: carvediloL 12.5 MG TAB PO SCH ×2 (08:16→20:06)
[2021-05-28] MEDS ORDERED: INFLUENZA VACCINE (for 6+ mo) 0.5 ML DOSE IMVAC ONE (11:00)
--- NOTE | 2021-05-28 11:00 | RAD REPORT ---
EXAM DESCRIPTION: NM - Vent Perfusion VQ Scan - 05/28/2021 10:39 am CLINICAL HISTORY: Chest pain COMPARISON: May 27, 2021 TECHNIQUE: 19.5 Mci [id number] was administered by inhalation. First breath, equilibrium, and washout images of the lungs obtained 7.2 millicuries Technetium-99 MAA was administered intravenously. Anterior, posterior, lateral and ob lique views of the lungs were taken. FINDINGS: The lungs demonstrate relatively homogeneous radiotracer activity on ventilation and perfu rigo sequences. No mismatched segmental or lobar perfusion defects are seen. IMPRESSION: Very low probability of a pulmonary embolus
[2021-05-28] MEDS: KCL 20 MEQ/100 mL IVPB 20 MEQ/100 ML BAG IV SCH ×2 (11:38→15:54)
[2021-05-28] MEDS: NA CHLORIDE 0.9% 1,000 ML IV SCH ×4 (11:41→23:43)
--- NOTE | 2021-05-28 11:59 | P.CNS ---
Date of Consult: 05/28/21 Reason for Consult: CARLOTA Requesting Physician: Uvaldo Rodriguez Chief Complaint: CARLOTA, chest pain, abdominal pain History of Present Illness: 60F w/ PMHx of Htn, HLD, DM2, & hx of acute pancreatitis 2/2 etoh use, who p/w L-sided chest pain, sudden-onset, pleuritic, w/ tenderness along L parasternal area, & w/ radiation to L arm & abdomen. She also reports having N/V/lightheadedness, admitted for further eval & mngt. Serum lipase sig elevated. Referred to Nephrology for renal failure w/ hypokalemia & hypomagnesemia. Allergies sulfamethoxazole [From Bactrim] Allergy (Intermediate, Verified 05/07/20 21:54) Rash trimethoprim [From Bactrim] Allergy (Intermediate, Verified 05/07/20 21:54) Rash Sulfa (Sulfonamide Antibiotics) Allergy (Verified 05/07/20 21:54) Unknown trazodone Allergy (Verified 05/07/20 21:54) Itching Home Medications: Aspirin [Aspirin EC 81 MG] 81 mg PO DAILY #90 tablet. 01/01/18 Atorvastatin Calcium [Lipitor] 40 mg PO BEDTIME #30 tab 02/20/19 Citalopram [Celexa*] 40 mg PO DAILY 06/08/20 Omeprazole [Prilosec] 1 tab PO DAILY 06/08/20 Amlodipine [Norvasc*] 10 mg PO DAILY 01/13/21 Carvedilol [Coreg] 12.5 mg PO BID 01/13/21 hydroCHLOROthiazide [Hydrochlorothiazide] 25 mg PO DAILY 01/13/21 Cetirizine HCl [Zyrtec] 10 mg PO DAILY 05/28/21 Fenofibrate [Tricor*] 145 mg PO DAILY 05/28/21 Insulin Detemir [Levemir] 10 units SQ BEDTIME 05/28/21 Insulin Detemir [Levemir] 40 units SQ DAILY 05/28/21 Ondansetron HCl [Zofran] 8 mg PO BID PRN 05/28/21 - Past Medical/Surgical History Diabetic: Yes -: HTN -: Hyperlipidemia -: GERD -: CVA x2 -: Tobacco abuse -: Diabetes mellitus type 2 insulin-dependent -: renal insufficiency -: -: R wrist Sx (metal plate) -: rectal polyps removed -: Left ankle orif -: ectopic Psychosocial/ Personal History: The patient is single. She has 1 child. Retired - Family History Sister Medical History: Lung disease, Diabetes Notes: asthma Mother Medical History: Heart disease, Cancer Father Medical History: Heart disease - Social History Smoking Status: Current every day smoker Alcohol use: Yes CD- Drugs: No Caffeine use: No Place of Residence: Home Review of Systems General: Weakness Eyes: Unremarkable ENT: Unremarkable Respiratory: Pleuritic Pain Cardiovascular: Chest Pain, Light Headedness Gastrointestinal: Nausea, Vomiting, Abdominal Pain Genitourinary: Unremarkable Musculoskeletal: Unremarkable Integumentary: Unremarkable Neurological: Unremarkable Lymphatics: Unremarkable Physical Examination Temp Pulse Resp BP Pulse Ox 97.0 F 72 18 133/71 96 05/28/21 08:00 05/28/21 08:16 05/28/21 08:00 05/28/21 08:16 05/28/21 08:00 General: In no apparent distress HEENT: Atraumatic, Normocephalic Neck: Supple, JVD not distended Respiratory: Clear to auscultation bilaterally Cardiovascular: No edema, No rubs, No murmurs, Other (+direct tenderness on L parasternal area) Gastrointestinal: Soft and benign, Non-distended Musculoskeletal: No clubbing, No swelling, No warmth Integumentary: No warmth Neurological: Normal speech, Normal tone Lymphatics: No axilla or inguinal lymphadenopathy Urinary: Other (No bladder distention) External genitalia: Deferred Rectal: Deferred Laboratory Data (last 24 hrs) 05/28/21 06:09: Triglycerides 152 H, Cholesterol 180, HDL Cholesterol 44, Cholesterol/HDL Ratio 4.09 05/28/21 06:09: APTT 103.5 H* 05/28/21 06:09: Sodium 135 L, Potassium 2.3 L*, BUN 40 H, Creatinine 1.59 H, Glucose 125 H, Phosphorus 2.9, Magnesium 2.4 D, Total Bilirubin 0.7, AST 27, ALT 26, Alkaline Phosphatase 59, Troponin I < 0.02, Amylase 291 H*, Lipase 4758 H 05/28/21 06:09: WBC 8.70 D, Hgb 13.6, Hct 40.0, Plt Count 282 05/28/21 01:38: APTT Cancelled 05/27/21 22:50: PT 10.9, INR 0.95, APTT 25.4 05/27/21 22:50: WBC 10.50, Hgb 14.0, Hct 41.6, Plt Count 336 05/27/21 22:50: Sodium 134 L, Potassium 2.7 L*, BUN 44 H, Creatinine 1.87 H, Glucose 93, Magnesium 1.6 L D, Total Bilirubin 0.8, AST 34, ALT 32, Alkaline Phosphatase 63 Conclusions/Impression: # CARLOTA 2/2 prerenal state Baseline renal fxn CKD 2-3a SCr 0.7-1.0 as of January 2021 SCr 1.9 on adm, improved to 1.6 w/ IV fluids CPK wnl, no rhabdo Urinalysis unremarkable except for high specif gravity +Mild proteinuria 0.4g on random upcr F/u abd US, serum iPTH Continue IV fluids Avoid NSAIDs Monitor I/O, renal panel # Hypokalemia KCl IV repletion ongoing Recheck lytes at 8pm today # HypoMg Improved Monitor/replete prn # HypoNa Mild, monitor # Chest pain likely 2/2 costochondritis +direct tenderness along L parasternal area CXR & VQ scan unremarkable Initial trop neg, BNP wnl Trend troponin 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 recurrent acute pancreatitis Lipase elevated; LFT unremarkable F/u abd US On clear liquids for today # Htn BP stable, monitor # DM2 Mngt per primary team
--- NOTE | 2021-05-28 15:26 | CON ---
Date of Consultation: 05/28/2021 Reason For Consultation: Chest pain. History Of Present Illness: 60-year-old female with history of hypertension, diabetes, dyslipidemia, presented with left-sided chest pain that radiates to her upper portion of the stomach cons tant started yesterday. The patient was evaluated in the past by Cardiology and had a coronary angio gram in May 2017, that was totally normal. Her chest pain is resolved at this point. Past Medical History: Hypertension, dyslipidemia, acid reflux, CVA, diabetes, chronic renal insuffic iency. Medications: Refer reconciliation sheet for detailed list. Allergies: BACTRIM. Past Surgical History: , heart catheterization, rectal polyps removal, ectopic gastelum rgery, hip surgery. Social History: She is a smoker. Does not drink or use any drugs. Family History: No premature coronary artery disease or cancer. Review of Systems: All systems reviewed and they were negative, except as mentioned in the HPI. Physical Examination: Vital Signs: Reviewed. Head and Neck: Pupils are equal, reactive to light. Intact eye movements. No JVD. No cervical lym phadenopathy. Neck: Supple. Thyroid is not enlarged. Lungs: Clear to auscultation bilaterally. No rhonchi, wheezing, or crackles. No accessory muscle u se. Heart: Regular rate and rhythm. No extra sounds. Abdomen: Soft, nontender. Bowel sounds positive. No organomegaly. No masses or hernia. No rigidi ty or rebound. Extremities: No clubbing, cyanosis. Intact pulses. Skin: No rashes. Neurologic: Alert and oriented x3. No acute focal deficits appreciated. Investigations: Hemoglobin is 13.6, white blood count is 8.7. D-dimer is 1322. V/Q scan of the lindsey gs is negative for PE low probability. Troponin x3 are negative. Creatinine 1.59 and lipase ___. Assessment And Recommendation: Chest pain. Cardiac enzymes are negative. She had normal coronary a ngiogram in May 2017. This is very unlikely to be a cardiac event or cardiac in origin. She cl early has significantly elevated lipase, which is more likely the cause of her symptoms from her acut e pancreatitis. From Cardiology standpoint, please obtain an echocardiogram and further recommendati on will follow accordingly. Again, this is likely noncardiac in origin. Thank you for the consult. YONG Voice ID: [id number] Report ID: [id number]
[2021-05-28] MEDS: ENOXAPARIN 40 MG/0.4 ML SQ SCH (15:55)
[2021-05-28] MEDS ORDERED: KCL 20 MEQ/100 mL IVPB 20 MEQ/100 ML BAG IV SCH (16:00)
[2021-05-28 16:13] LABS: UR PROTEIN 36.7 mg/dL (<11.9); Urine Protein/Creatinine Ratio 0.38 ratio (<0.15)
[2021-05-28 16:24] LABS: Urine Appearance Clear (Clear); Urine Bilirubin Negative (Negative); Urine Blood Negative (Negative); Urine Color Yellow (Yellow); Urine Glucose 2+ (Negative); Urine Protein Negative (Negative); Urine Urobilinogen 0.2 mg/dL (0.2-1.0)
[2021-05-28 16:25] LABS: Urine Microscopic Reflex NO UMIC
[2021-05-28] MEDS: ATORVASTATIN 40 MG TAB PO SCH (20:06)
[2021-05-28 20:28] LABS: Albumin 3.1 g/dL (3.4-5.0); Phosphorus 2.1 mg/dL (2.5-4.9); Potassium 3.1 mmol/L (3.5-5.1)
[2021-05-29 05:44] LABS: Absolute Lymphocytes (CBC) 1.7 K/uL (0.7-4.9); Basophils % 0.3 % (0-1.3); Hematocrit 35.6 % (36.0-45.0); Lymphocytes % 27.5 % (15.3-44.8); MPV 8.5 fL (7.6-11.3); RBC Red Blood Cell Count 3.65 M/uL (3.86-4.86)
[2021-05-29] MEDS: NA CHLORIDE 0.9% 1,000 ML IV SCH ×3 (05:52→16:16)
[2021-05-29] MEDS: MORPHINE 2 MG/ML SYR IV PRN ×3 (05:52→18:21)
--- NOTE | 2021-05-29 06:03 | P.PN ---
Subjective Date of Service: 05/29/21 Chief Complaint: CARLOTA, chest pain, abdominal pain Subjective: No new changes Physical Examination - Vital Signs Temperature: 97.6 F Blood Pressure: 120/71 Pulse: 67 Respirations: 18 Pulse Ox (%): 95 - Physical Exam General: In no apparent distress HEENT: Atraumatic, Normocephalic Neck: Supple, JVD not distended Respiratory: Other (Symmetric chest expansion) Cardiovascular: No rubs, No murmurs Gastrointestinal: Soft and benign Musculoskeletal: No clubbing Integumentary: No warmth Neurological: Normal speech, Normal tone Urinary: Other (No bladder distention) External genitalia: Deferred Rectal: Deferred - Studies Laboratory Data (last 24 hrs) 05/28/21 06:09: Triglycerides 152 H, Cholesterol 180, HDL Cholesterol 44, Cholesterol/HDL Ratio 4.09 05/28/21 06:09: APTT 103.5 H* 05/28/21 06:09: Sodium 135 L, Potassium 2.3 L*, BUN 40 H, Creatinine 1.59 H, Glucose 125 H, Phosphorus 2.9, Magnesium 2.4 D, Total Bilirubin 0.7, AST 27, ALT 26, Alkaline Phosphatase 59, Troponin I < 0.02, Amylase 291 H*, Lipase 4758 H 05/28/21 06:09: WBC 8.70 D, Hgb 13.6, Hct 40.0, Plt Count 282 Assessment And Plan - Plan # CARLOTA 2/2 prerenal state Baseline renal fxn CKD 2-3a SCr 0.7-1.0 as of January 2021 SCr 1.9 on adm, improved to 1.0.9 w/ IV fluids CPK wnl, no rhabdo Urinalysis unremarkable except for high specif gravity +Mild proteinuria 0.4g on random upcr IV fluids Avoid NSAIDs Monitor I/O, renal panel # Hypokalemia KCl IV repletion ongoing Recheck lytes at 8pm today # HypoPhos KPhos IV repletion today # Chest pain likely 2/2 costochondritis +direct tenderness along L parasternal area CXR & VQ scan unremarkable Initial trop neg, BNP wnl Trend troponin Cont 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
[2021-05-29 06:10] LABS: Albumin 2.7 g/dL (3.4-5.0); Bilirubin Total 0.6 mg/dL (0.2-1.0); Magnesium 1.8 mg/dL (1.8-2.4); Phosphorus 2.2 mg/dL (2.5-4.9); Protein, Total 5.9 g/dL (6.4-8.2); Thyroid Stimulating Hormone 1.22 uIU/mL (0.360-3.740)
[2021-05-29 06:12] LABS: Potassium 2.7 mmol/L (3.5-5.1)
[2021-05-29] MEDS ORDERED: MAGNESIUM SULFATE 1 gm IVPB 1 GM/100 ML BAG IV ONE ×2 (06:23)
--- NOTE | 2021-05-29 06:25 | P.PN ---
Date of Service: 05/29/21 Subjective: Reports slight improvement of pain, no nausea/vomiting overnight, reports she is feeling hungry, wanting to eat a little bit more. no BM in a few days ROS: 10 point ROS as noted above, otherwise negative Physical exam GEN: Alert, oriented, NAD HEENT: Normal conjunctiva, sclera anicteric CV: Regular rate and rhythm, no edema Pulm: Nonlabored respirations on room air ABD: moderate tenderness in epigastrium, no rebound MSK: No joint tenderness Neuro: Normal speech, normal affect Problem List Acute pancreatitis, history of recurrent pancreatitis Hypokalemia with acute renal failure, suspect prerenal Diabetes mellitus type 2 Hypertension Hyperlipidemia History of alcohol dependence/abuse chest pain / pleuritic pain likely costochondritis, some may be referred pain from pancreatitis trop negative, cardiology consulted, recommend no further cardiac evaluation/procedure, unlikely to be cardiac etiology Tolerated sips/chips overnight with no worsening nausea/pain. Continues with moderate abdominal pain Pancreatitis likely from alcohol, last drink was 1.5 weeks ago, triglycerides within normal limits Advance to clear liquids for lunch, IV fluids decreased from 200 mL an hour Renal function improved with IV fluids Patient reports no BM in several days, but passing flatus, has not eaten much, will monitor Continue home medications as appropriate VQ scan with low probability of PE, DC heparin drip on 05/28 Dispo: anticipate DC home in 2-3 days Time Spent Managing Pts Care (In Minutes): 35
[2021-05-29] MEDS: INSULIN -REGULAR HUMAN 50 UNIT/0.5 ML ML SQ SCH ×4 (07:30→20:25)
[2021-05-29] MEDS: KCL 20 MEQ/100 mL IVPB 20 MEQ/100 ML BAG IV SCH ×2 (08:40→11:09)
[2021-05-29] MEDS: carvediloL 12.5 MG TAB PO SCH ×2 (08:41→20:24)
[2021-05-29] MEDS: ASPIRIN EC 81 MG TAB PO SCH (08:41)
[2021-05-29] MEDS: ENOXAPARIN 40 MG/0.4 ML SQ SCH (08:42)
[2021-05-29] MEDS: CITALOPRAM 10 MG TABLET PO SCH (08:42)
[2021-05-29] MEDS ORDERED: POTASSIUM PHOS IN 0.9 % NACL 15 MMOL/250 ML BAG IV ONE (09:00)
--- NOTE | 2021-05-29 13:10 | RAD REPORT ---
EXAM DESCRIPTION: US - Abdomen Exam Complete - 05/29/2021 12:52 pm CLINICAL HISTORY: Abdominal pain FINDINGS: The liver has an increased echotexture. A gallstone is not seen. The gallbladder wall is not thickened. The biliary tree is normal caliber. The pancreas is edematous. A pseudocyst is not seen. The right kidney measures 11 centimeters with a normal echotexture. The left kidney measures 12 centimeters with a normal echotexture. The spleen measures 9 centimeters. The abdominal aorta and inferior vena cava appear unremarkable IMPRESSION: Pancreatitis Increased hepatic echotexture consistent with fatty infiltration
[2021-05-29] MEDS ORDERED: POTASSIUM PHOS 10 MM in NA CHLORIDE 0.9% 250 ML IV ONE (15:00)
[2021-05-29] MEDS ORDERED: POTASSIUM CL 40 MEQ in NA CHLORIDE 0.9% 500 ML IV SCH (18:00)
[2021-05-29] MEDS: ATORVASTATIN 40 MG TAB PO SCH (20:24)
[2021-05-29] MEDS: ZOLPIDEM TARTRATE 5 MG TABLET PO PRN (23:39)
[2021-05-30] MEDS: MORPHINE 2 MG/ML SYR IV PRN ×4 (00:27→22:20)
[2021-05-30 04:44] LABS: Magnesium 1.5 mg/dL (1.8-2.4); Potassium 3.5 mmol/L (3.5-5.1)
[2021-05-30] MEDS ORDERED: Magnesium Sulfate 2gm IVPB 2 G/50 ML BAG IV ONE (05:01)
[2021-05-30] MEDS: NA CHLORIDE 0.9% 1,000 ML IV SCH (05:11)
[2021-05-30] MEDS ORDERED: POTASSIUM CL SA 10 MEQ TAB PO ONE (06:00)
[2021-05-30] MEDS: POTASS/SODIUM PHOSPHATE 1 PKT POWD.PACK PO SCH ×3 (06:06→08:18)
--- NOTE | 2021-05-30 06:16 | P.PN ---
Subjective Date of Service: 05/30/21 Chief Complaint: CARLOTA, chest pain, abdominal pain Subjective: No new changes Physical Examination - Vital Signs Temperature: 97.1 F Blood Pressure: 134/75 Pulse: 62 Respirations: 18 Pulse Ox (%): 96 - Physical Exam General: In no apparent distress HEENT: Atraumatic, Normocephalic Neck: Supple Respiratory: Clear to auscultation bilaterally Cardiovascular: No rubs, No murmurs Gastrointestinal: Soft and benign Musculoskeletal: No clubbing Integumentary: No warmth Neurological: Normal speech, Normal tone Urinary: Other (No bladder distention) Assessment And Plan - Plan # CARLOTA 2/2 prerenal state Baseline renal fxn CKD 2-3a SCr 0.7-1.0 as of January 2021 SCr 1.9 on adm, improved to 0.7 today CPK wnl, no rhabdo Urinalysis unremarkable except for high specif gravity +Mild proteinuria 0.4g on random upcr [place] po fluid intake Avoid NSAIDs Monitor I/O, renal panel # Hypokalemia Monitor/replete prn # HypoPhos NeutraPhos repletion today # Chest pain likely 2/2 costochondritis +direct tenderness along L parasternal area CXR & VQ scan unremarkable Initial trop neg, BNP wnl Trend troponin Cont 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
--- NOTE | 2021-05-30 06:22 | P.PN ---
Date of Service: 05/30/21 Subjective: Reports abdominal pain/chest pain improving, abdominal pain now slightly more than the left side, no nausea/vomiting. Tolerating clear liquids last night Reports she ate decrease in appetite, wanting to advance diet Had loose bowel movement overnight, had not had a bowel movement several days Remains afebrile, no new complaints ROS: 10 point ROS as noted above, otherwise negative Physical exam GEN: Alert, oriented, NAD HEENT: Normal conjunctiva, sclera anicteric CV: Regular rate and rhythm, no edema Pulm: Nonlabored respirations on room air ABD: Mild epigastric tenderness, mildmoderate left abdomen, nondistended, no rebound Neuro: Normal speech, normal affect Problem List Acute pancreatitis, history of recurrent pancreatitis Hypokalemia with acute renal failure, likely prerenal Diabetes mellitus type 2 Hypertension Hyperlipidemia History of alcohol dependence/abuse chest pain / pleuritic pain likely costochondritis, some may be referred pain from pancreatitis trop negative, cardiology consulted, recommend no further cardiac evaluation/procedure, unlikely to be cardiac etiology Tolerated clear liquid diet yesterday, pain improving, lipase downtrending Advance diet as to soft foods, will DC IV fluids Pancreatitis likely from alcohol, last drink was 1.5 weeks ago, triglycerides within normal limits Renal function improved with IV fluids Patient was a bowel movement overnight Continue home medications as appropriate VQ scan with low probability of PE, DC heparin drip on 05/28 Dispo: anticipate DC home in 1-2 days Time Spent Managing Pts Care (In Minutes): 35
[2021-05-30] MEDS: INSULIN -REGULAR HUMAN 50 UNIT/0.5 ML ML SQ SCH ×4 (07:30→21:00)
[2021-05-30] MEDS: CITALOPRAM 10 MG TABLET PO SCH (08:18)
[2021-05-30] MEDS: carvediloL 12.5 MG TAB PO SCH ×2 (08:18→21:57)
[2021-05-30] MEDS: ASPIRIN EC 81 MG TAB PO SCH (08:18)
[2021-05-30] MEDS: ENOXAPARIN 40 MG/0.4 ML SQ SCH (08:18)
[2021-05-30] MEDS ORDERED: POTASS/SODIUM PHOSPHATE 1 PKT POWD.PACK PO ONE (15:00)
[2021-05-30] MEDS: ATORVASTATIN 40 MG TAB PO SCH (21:58)
[2021-05-30] MEDS: ZOLPIDEM TARTRATE 5 MG TABLET PO PRN (22:21)
[2021-05-31 04:33] LABS: Absolute Lymphocytes (CBC) 1.9 K/uL (0.7-4.9); Basophils % 0.4 % (0-1.3); Hematocrit 33.1 % (36.0-45.0); Lymphocytes % 34.2 % (15.3-44.8); MPV 8.5 fL (7.6-11.3); RBC Red Blood Cell Count 3.38 M/uL (3.86-4.86)
[2021-05-31 04:51] LABS: Magnesium 1.6 mg/dL (1.8-2.4); Phosphorus 2.6 mg/dL (2.5-4.9); Potassium 3.4 mmol/L (3.5-5.1)
[2021-05-31] MEDS ORDERED: POTASSIUM 25 MEQ EFFERV TAB PO ONE ×3 (04:57→21:00)
[2021-05-31] MEDS: MORPHINE 2 MG/ML SYR IV PRN ×3 (05:37→21:22)
[2021-05-31 05:42] VITALS: BMI 28.8
[2021-05-31] MEDS ORDERED: MAGNESIUM SULFATE 1 gm IVPB 1 GM/100 ML BAG IV ONE ×2 (05:52→16:01)
--- NOTE | 2021-05-31 06:20 | P.PN ---
Subjective Date of Service: 05/31/21 Chief Complaint: CARLOTA, chest pain, abdominal pain Subjective: Other (Had nausea w/ soft diet.) Physical Examination - Vital Signs Temperature: 97.1 F Blood Pressure: 134/75 Pulse: 62 Respirations: 18 Pulse Ox (%): 96 - Physical Exam General: In no apparent distress HEENT: Atraumatic, Normocephalic Neck: Supple, JVD not distended Respiratory: Other (Symmetric chest expansion) Cardiovascular: No rubs, No murmurs Gastrointestinal: Soft and benign, Non-distended Musculoskeletal: No clubbing Integumentary: No warmth Neurological: Normal speech, Normal tone Lymphatics: No axilla or inguinal lymphadenopathy Urinary: Other (No bladder distention) External genitalia: Deferred Rectal: Deferred Assessment And Plan - Plan # CARLOTA 2/2 prerenal state, resolved Baseline renal fxn 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 SCr 0.7-1.0 as of January 2021 SCr 1.9 on adm, improved to 0.7-0.8 CPK wnl, no rhabdo Urinalysis unremarkable except for high specific gravity +Mild proteinuria 0.4g on random upcr Alviso po fluid intake Avoid NSAIDs Monitor I/O, renal panel # Hypokalemia KCl po repletion today # HypoPhos NeutraPhos repletion today # HypoMg Slow-Mag po bid x 4 doses # Chest pain likely 2/2 costochondritis +direct tenderness along L parasternal area CXR & VQ scan unremarkable Initial trop neg, BNP wnl Trend troponin Cont cardiac surgeon Tylenol +/- Tramadol prn for pain # Abdominal pain 2/2 recurrent acute pancreatitis Improving Lipase elevated; LFT unremarkable Abd US showed edematous pancreas ADAT # Htn BP variable, monitor # DM2 Mngt per primary team # Dispo Anticipate dc in the next 24-48 hrs
[2021-05-31] MEDS ORDERED: TRAMADOL HCL 50 MG TAB PO PRN (06:36)
--- NOTE | 2021-05-31 06:39 | P.PN ---
Date of Service: 05/31/21 Subjective: pain remains about the same, no signifcant improvement. some pain /nausea with eating soft diet, no vomiting mostly tolerable, but still needing IV pain medication ROS: 10 point ROS as noted above, otherwise negative Physical exam GEN: Alert, oriented, NAD HEENT: Normal conjunctiva, sclera anicteric CV: Regular rate and rhythm, no edema Pulm: Nonlabored respirations on room air ABD: Mild epigastric tenderness, mild left abdominal tenderness, nondistended, no rebound Neuro: Normal speech, normal affect Problem List Acute pancreatitis, history of recurrent pancreatitis Hypokalemia with acute renal failure, likely prerenal Diabetes mellitus type 2 Hypertension Hyperlipidemia History of alcohol dependence/abuse chest pain / pleuritic pain likely costochondritis, some may be referred pain from pancreatitis Cardiology consulted, do not suspect cardiac etiology Advance to soft diet yesterday, reports some nausea and slightly increased pain after eating. Did not have this with liquids Lipase downtrending, will back diet down to full liquids Pancreatitis likely from alcohol, last drink was 1.5 weeks ago, triglycerides within normal limits Renal function improved with IV fluids Patient states she small bowel movement 2 nights ago, like a stool softener and MiraLAX VQ scan with low probability of PE, DC heparin drip on 05/28 Dispo: anticipate DC home in 1-2 days Time Spent Managing Pts Care (In Minutes): 35
[2021-05-31] MEDS: INSULIN -REGULAR HUMAN 50 UNIT/0.5 ML ML SQ SCH ×4 (07:30→21:00)
[2021-05-31] MEDS: CITALOPRAM 10 MG TABLET PO SCH (08:19)
[2021-05-31] MEDS: ENOXAPARIN 40 MG/0.4 ML SQ SCH (08:19)
[2021-05-31] MEDS: ASPIRIN EC 81 MG TAB PO SCH (08:19)
[2021-05-31] MEDS: carvediloL 12.5 MG TAB PO SCH ×2 (08:20→21:21)
[2021-05-31] MEDS ORDERED: POLYETHYL GLY 3350 17 GM/DOSE PO ONE (10:00)
[2021-05-31] MEDS: DOCUSATE NA 100 MG CAP PO SCH ×2 (10:59→21:22)
[2021-05-31] MEDS: ONDANSETRON 4 MG/2 ML VIAL IV PRN (11:05)
[2021-05-31] MEDS ORDERED: POTASS/SODIUM PHOSPHATE 1 PKT POWD.PACK PO ONE (12:00)
[2021-05-31] MEDS: MAGNESIUM CHLORIDE 64 MG TAB PO SCH ×2 (13:37→21:21)
[2021-05-31] MEDS: ATORVASTATIN 40 MG TAB PO SCH (21:21)
[2021-05-31] MEDS: ZOLPIDEM TARTRATE 5 MG TABLET PO PRN (21:23)
[2021-06-01] MEDS: MORPHINE 2 MG/ML SYR IV PRN ×3 (04:10→20:51)
[2021-06-01 04:40] LABS: Magnesium 1.7 mg/dL (1.8-2.4); Potassium 4.2 mmol/L (3.5-5.1)
[2021-06-01] MEDS ORDERED: MAGNESIUM SULFATE 1 gm IVPB 1 GM/100 ML BAG IV ONE (05:52)
[2021-06-01] MEDS: INSULIN -REGULAR HUMAN 50 UNIT/0.5 ML ML SQ SCH ×4 (07:30→20:02)
[2021-06-01] MEDS: MAGNESIUM CHLORIDE 64 MG TAB PO SCH ×2 (09:19→20:23)
[2021-06-01] MEDS: ENOXAPARIN 40 MG/0.4 ML SQ SCH (09:19)
[2021-06-01] MEDS: carvediloL 12.5 MG TAB PO SCH ×2 (09:20→21:00)
[2021-06-01] MEDS: CITALOPRAM 10 MG TABLET PO SCH (09:20)
[2021-06-01] MEDS: ASPIRIN EC 81 MG TAB PO SCH (09:20)
[2021-06-01] MEDS: DOCUSATE NA 100 MG CAP PO SCH ×2 (09:20→20:23)
--- NOTE | 2021-06-01 10:59 | RAD REPORT ---
EXAM DESCRIPTION: CT - Abdomen Pelvis W Contrast - 06/01/2021 9:37 am CLINICAL HISTORY: pancreatitis, r/o absces/cyst COMPARISON: Abdomen Pelvis W Contrast dated 07/26/2020; Abdomen Exam Complete dated 05/29/2021 TECHNIQUE: Biphasic, helical CT imaging of the abdomen and pelvis was performed following 100 ml non -ionic IV contrast. No oral contrast administered. All CT scans are performed using dose optimization technique as appropriate and may include automated exposure control or mA/KV adjustment according to patient size. FINDINGS: No suspicious findings in the lung bases. Left hemidiaphragm elevation is present. Liver size and enhancement are normal. No capsular nodularity. No portal vein abnormality seen. Gallb ladder is tightly contracted. No biliary tree dilatation identified. No splenomegaly or focal splenic finding. No solid or cystic mass of the pancreatic parenchyma or adjacent peripancreatic tissues. There is st randing and edema in the fatty tissues along the pancreatic tail and distal body. Symmetric renal function is seen with no hydronephrosis or suspicious renal mass. No pyelonephritis o r acute parenchymal process. Urinary bladder is fully contracted. No uterus or ovary suspicious findi ng. No adrenal abnormalities. Stomach is distended by food and fluid. No gastric wall thickening or mass. Patient may have recently eaten. A mild gastro paresis is possible. Gastric outlet obstruction is not suspected. No dilated la rge or small bowel loops present. Patient has sigmoid diverticulosis without diverticulitis. Cecum li es along the anterior pelvic floor. No free air, pneumatosis or abnormal free fluid collection. No in flammatory stranding outside of the peripancreatic tissues. No mass or bulky lymphadenopathy. Small fat only left inguinal hernia is seen. Patient has air in the subcutaneous fatty tissues from medicat ion injection. No suspicious bony findings. IMPRESSION: Mild pancreatitis with no pseudocyst, mass or other emergent finding.
--- NOTE | 2021-06-01 17:21 | P.PN ---
Date of Service: 06/01/21 Subjective: pain remains about the same, no signifcant improvement. Reports she feels she is doing slightly better with soft diet, however then states that it causes pain and requiring IV pain medication Nausea after eating as well ROS: 10 point ROS as noted above, otherwise negative Physical exam GEN: Alert, oriented, NAD HEENT: Normal conjunctiva, sclera anicteric CV: Regular rate and rhythm, no edema Pulm: Nonlabored respirations on room air ABD: Moderate epigastric tenderness, moderate left abdominal tenderness, nondistended, no rebound Neuro: Normal speech, normal affect Problem List Acute pancreatitis, history of recurrent pancreatitis Hypokalemia with acute renal failure, prerenal Diabetes mellitus type 2 Hypertension Hyperlipidemia History of alcohol dependence/abuse chest pain / pleuritic pain likely costochondritis, some may be referred pain from pancreatitis. Improved Cardiology consulted, do not suspect cardiac etiology Advance to soft diet yesterday, reports some nausea and slightly increased pain after eating. Did not have this with liquids Lipase downtrending, will back diet down to full liquids again Given the slight increase in pain, will obtain CT abdomen/pelvis to evaluate/ rule out pseudocyst formation or necrotizing pancreatitis, or abscess Pancreatitis likely from alcohol, last drink was 1.5 weeks ago, triglycerides within normal limits Renal function improved with IV fluids VQ scan with low probability of PE, DC heparin drip on 05/28 Dispo: anticipate DC home in 1-2 days Time Spent Managing Pts Care (In Minutes): 35
[2021-06-01] MEDS: ATORVASTATIN 40 MG TAB PO SCH (20:24)
[2021-06-01] MEDS: ZOLPIDEM TARTRATE 5 MG TABLET PO PRN (20:29)
[2021-06-01] MEDS: ONDANSETRON 4 MG/2 ML VIAL IV PRN (20:51)
--- NOTE | 2021-06-02 00:26 | PN ---
Date of Progress Note: 06/01/2021 Chief Complaint: Acute kidney injury, chest pain, abdominal pain. History Of Present Illness: The patient is feeling better, although she has some nausea, vomiting, w as medicated for nausea, vomiting, and abdominal pain. The patient denies fever or chills. Denies h ematuria. Physical Examination: Lungs: Clear to auscultation bilaterally. Heart: S1, S2. Abdomen: Soft, benign. Extremities: No edema. Impression And Plan: 1.Acute kidney injury, nonoliguric. Monitor renal panel. Avoid nephrotoxic medications. Serum cre atinine has improved. On admission, creatinine level was 1.9, improved to baseline 0.7 to 0.8. Nany ent has chronic kidney disease stage 2/3A. CPK level within normal limits and this rule out rhabdomy olysis. Urinalysis is unremarkable, although the patient has mild proteinuria upto 0.4 g for 24 hour s. Continue to monitor I's and O's, renal panel. 2.Patient has hyperkalemia. Monitor magnesium level. 3.Hypophosphatemia was treated. Monitor phosphorus level. VINICIUS/RAJINDER Voice ID: [id number] Report ID: [id number]
[2021-06-02 02:44] VITALS: O2SAT 97
[2021-06-02 05:41] LABS: Hematocrit 35.2 % (36.0-45.0); MPV 7.9 fL (7.6-11.3); RBC Red Blood Cell Count 3.57 M/uL (3.86-4.86)
[2021-06-02 05:54] LABS: ALT/SGPT 23 U/L (12-78); AST/SGOT 22 U/L (15-37); Albumin 2.9 g/dL (3.4-5.0); Alkaline Phosphatase 57 U/L (45-117); BUN Blood Urea Nitrogen 13 mg/dL (7-18); Bicarbonate 25 mmol/L (21-32); Bilirubin Direct < 0.1 mg/dL (0-0.2); Bilirubin Total 0.1 mg/dL (0.2-1.0); Glucose Level 194 mg/dL (74-106); Lipase 466 U/L (73-393); Magnesium 1.8 mg/dL (1.8-2.4); Potassium 4.2 mmol/L (3.5-5.1); Sodium Level 134 mmol/L (136-145)
[2021-06-02] MEDS: INSULIN -REGULAR HUMAN 50 UNIT/0.5 ML ML SQ SCH ×2 (07:30→12:00)
[2021-06-02] MEDS ORDERED: MAGNESIUM SULFATE 1 gm IVPB 1 GM/100 ML BAG IV ONE ×2 (09:00→09:56)
[2021-06-02] MEDS: carvediloL 12.5 MG TAB PO SCH (09:09)
[2021-06-02] MEDS: DOCUSATE NA 100 MG CAP PO SCH (09:09)
[2021-06-02] MEDS: ASPIRIN EC 81 MG TAB PO SCH (09:09)
[2021-06-02] MEDS: ENOXAPARIN 40 MG/0.4 ML SQ SCH (09:09)
[2021-06-02] MEDS: CITALOPRAM 10 MG TABLET PO SCH (09:09)
--- NOTE | 2021-06-02 12:18 | PN ---
Date of Progress Note: 06/02/2021 Subjective: The patient was admitted to the hospital with chest pain, acute kidney injury. The nicolás ent is feeling better. It was secondary to prerenal, recovered, back to baseline. Physical Examination: Vital Signs: Blood pressure 169/75, pulse of 55, afebrile. The patient had good urine output of voi ding 4 times. Chest: Clear to auscultation. Heart: S1, S2. Systolic murmur. Abdomen: Soft, nontender. Extremity: No edema. Neurologic: Alert. No focality. Laboratory Data: WBC 4.6, H and H 11.8/35.2. Sodium 134, potassium 4.2, bicarb 25, BUN 13, creatini ne 0.9, GFR 59, calcium of 9, albumin of 2.9, corrected calcium is 9.8. Chest x-ray, no congestion. Current Medications: The patient on are; 1.Aspirin. 2.Lovenox. 3.Atorvastatin. 4.Carvedilol. 5.Citalopram. 6.Zofran. 7.Tramadol. Assessment And Plan: 1.Acute kidney injury secondary to prerenal, recovered, resolved. Looked to me normal volume, jose l size kidney. We will follow up the patient. We will hold on any hydration. 2.Hypokalemia, resolved. 3.Hyponatremia, marginal. No symptom. I am not going to start any treatment. 4.Hypertension, not controlled. We will add a low dose of NORMA inhibitor and we will follow up the p atient. JOSR/RAJINDER Voice ID: [id number] Report ID: [id number]
--- NOTE | 2021-06-02 12:49 | P.DS ---
Admission Date: 05/28/21 Discharge Date: 06/02/21 Disposition: ROUTINE DISCHARGE Discharge Condition: FAIR Reason for Admission: CARLOTA, chest pain, abdominal pain - Problems (1) Abdominal pain Current Visit: No Status: Acute Qualifiers: Abdominal location: left upper quadrant Qualified Code(s): R10.12 - Left upper quadrant pain (2) Acute pancreatitis Current Visit: No Status: Acute (3) Acute renal failure Current Visit: No Status: Acute Qualifiers: Acute renal failure type: unspecified Qualified Code(s): N17.9 - Acute kidney failure, unspecified (4) Alcohol abuse Current Visit: No Status: Acute (5) Chest pain, rule out acute myocardial infarction Onset Date: 05/30/17 Current Visit: No Status: Acute (6) Diabetes mellitus Onset Date: 12/30/17 Current Visit: No Status: Chronic Qualifiers: Diabetes mellitus type: type 2 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 Botello is a 60 yo F with HTN, HLD, T2DM who presented with 10/10 sudden onset left sided chest pain radiating down her left arm which occurred at rest. She described the pain as stabbing. She was complaining of abdominal pain on arrival to the ED. medication. Reports nausea, vomiting, lightheadedness. Denies dizziness, palpitations. DD 1322 Na 134 K 2.7 Cl 95 BUN 44 Cr 1.87 GFR 27 Mg 1.6. Initial troponin wnl. Her lipase level elevated to 4000. Abdominal ultrasound was consistent with pancreatitis. Patient hospitalized for further management. Hospital Course: Patient admitted to the medical floor and treated for acute pancreatitis with supportive measures including IV hydration, IV opioids for pain. Because of complaint of chest pain troponin was trended which came back negative. ACS ruled out. Patient seen by nephrology for acute renal failure. Acute renal failure deemed to be prerenal. It resolved with IV hydration. Recovery from pain and acute pancreatitis was slow. Her pain eventually improved and patient tolerated diet advancement to soft diet. Lipase level also trended down significantly from [address] abdomen and pelvis showed mild pancreatitis. No gallstones or biliary stone. Her acute pancreatitis is likely secondary to alcohol ingestion. She is reported to abuse alcohol. Patient clinically improved and deemed stable for discharge. Vital Signs/Physical Exam: Temp Pulse Resp BP Pulse Ox 96.9 F 55 16 169/75 H 98 06/02/21 11:19 06/02/21 11:19 06/02/21 11:19 06/02/21 11:19 06/02/21 11:19 General: Alert, In no apparent distress, Oriented x3 HEENT: Normocephalic, Mucous membr. moist/pink, Sclerae nonicteric Neck: Supple, JVD not distended Respiratory: Clear to auscultation bilaterally, Normal air movement Cardiovascular: No edema, Regular rate/rhythm, Normal S1 S2, No murmurs Gastrointestinal: Normal bowel sounds, Soft and benign, Non-distended, No tenderness Musculoskeletal: No swelling, No tenderness Integumentary: No rashes, No erythema Neurological: Normal speech, Normal strength at 5/5 x4 extr, Cranial nerves 3-12 intact Laboratory Data at Discharge: WBC 4.60 K/uL (4.3-10.9) D 06/02/21 05:15 Hgb 11.8 g/dL (12.0-15.0) L 06/02/21 05:15 Hct 35.2 % (36.0-45.0) L 06/02/21 05:15 Plt Count 339 K/uL (152-406) D 06/02/21 05:15 PT 10.9 SECONDS (9.5-12.5) 05/27/21 22:50 INR 0.95 05/27/21 22:50 APTT 30.0 SECONDS (24.3-36.9) 05/28/21 17:17 Sodium 134 mmol/L (136-145) L 06/02/21 05:15 Potassium 4.2 mmol/L (3.5-5.1) 06/02/21 05:15 BUN 13 mg/dL (7-18) 06/02/21 05:15 Creatinine 0.96 mg/dL (0.55-1.3) 06/02/21 05:15 Glucose 194 mg/dL (74-106) H 06/02/21 05:15 Phosphorus 3.0 mg/dL (2.5-4.9) 06/01/21 03:43 Magnesium 1.8 mg/dL (1.8-2.4) 06/02/21 05:15 Total Bilirubin 0.1 mg/dL (0.2-1.0) L 06/02/21 05:15 AST 22 U/L (15-37) 06/02/21 05:15 ALT 23 U/L (12-78) 06/02/21 05:15 Alkaline Phosphatase 57 U/L (45-117) 06/02/21 05:15 Troponin I < 0.02 ng/mL (0.0-0.045) 05/28/21 12:25 Triglycerides 152 mg/dL (<150) H 05/28/21 06:09 Cholesterol 180 mg/dL (<200) 05/28/21 06:09 HDL Cholesterol 44 mg/dL (40-60) 05/28/21 06:09 Cholesterol/HDL Ratio 4.09 05/28/21 06:09 Amylase 174 U/L (25-115) H D 05/29/21 05:08 Lipase 466 U/L (73-393) H 06/02/21 05:15 Home Medications: Aspirin [Aspirin EC 81 MG] 81 mg PO DAILY #90 tablet. 01/01/18 Atorvastatin Calcium [Lipitor] 40 mg PO BEDTIME #30 tab 02/20/19 Citalopram [Celexa*] 40 mg PO DAILY 06/08/20 Omeprazole [Prilosec] 1 tab PO DAILY 06/08/20 Amlodipine [Norvasc*] 10 mg PO DAILY 01/13/21 Carvedilol [Coreg] 12.5 mg PO BID 01/13/21 Cetirizine HCl [Zyrtec] 10 mg PO DAILY 05/28/21 Fenofibrate [Tricor*] 145 mg PO DAILY 05/28/21 Insulin Detemir [Levemir] 10 units SQ BEDTIME 05/28/21 Insulin Detemir [Levemir] 40 units SQ DAILY 05/28/21 Ondansetron HCl [Zofran] 8 mg PO BID PRN 05/28/21 Docusate [Colace Cap*] 100 mg PO BID #30 cap 06/02/21 Sennosides [Senokot] 17.2 mg PO BID #120 tablet 06/02/21 lisinopriL [Prinivil*] 5 mg PO DAILY #30 tab 06/02/21 New Medications: Docusate [Colace Cap*] 100 mg PO BID #30 cap lisinopriL [Prinivil*] 5 mg PO DAILY #30 tab Sennosides [Senokot] 17.2 mg PO BID #120 tablet Physician Discharge Instructions: Your pancreatitis might have been caused by alcohol ingestion. Alcohol cessation is advised. Diet: Progressed from soft diet to solid diet as tolerated. Diet: ADA Activity: Fall precautions Followup: NONE,NONE [Primary Care Provider] - 1-2 Weeks Time spent managing pt's care (in minutes): 40
[2021-06-02 13:48] VITALS: BP 147/68; TEMP 97.9
[2021-06-03] MEDS ORDERED: lisinopriL 5 MG TAB PO SCH (09:00)
== END 2021-06-02 15:38 | disposition home or self-care (01) | DRG 439 ==
LOC: ER 21:46 → ERHOLD 05-28 00:37 → 2ND 05-28 01:45 → OBSVTOIN 05-28 11:29
PROVIDERS: ADMIT Hospitalist; ATTEND Internal Medicine
DX: K85.20 Alcohol induced acute pancreatitis without necrosis or infection (principal); N17.9 Acute kidney failure, unspecified; E87.1 Hypo-osmolality and hyponatremia; F10.10 Alcohol abuse, uncomplicated; I12.9 Hypertensive chronic kidney disease with stage 1 through stage 4 chronic kidney disease, or unspecified chronic kidney disease; N18.31 Chronic kidney disease, stage 3a; E11.22 Type 2 diabetes mellitus with diabetic chronic kidney disease; F17.210 Nicotine dependence, cigarettes, uncomplicated; E87.6 Hypokalemia; E87.5 Hyperkalemia; E83.39 Other disorders of phosphorus metabolism; E83.42 Hypomagnesemia; E78.5 Hyperlipidemia, unspecified; K21.9 Gastro-esophageal reflux disease without esophagitis; R07.9 Chest pain, unspecified; Z86.73 Personal history of transient ischemic attack (TIA), and cerebral infarction without residual deficits; Z88.1 Allergy status to other antibiotic agents; Z88.8 Allergy status to other drugs, medicaments and biological substances; Z79.82 Long term (current) use of aspirin; Z79.899 Other long term (current) drug therapy; Z79.4 Long term (current) use of insulin; Z20.822 Contact with and (suspected) exposure to COVID-19
CPT/HCPCS: 36415; 71045; 74177; 76700; 78582; 80048; 80053; 80061; 80069; 80076; 80320; 81003; 82040; 82150; 82550; 82570; 82947; 83690; 83735; 83880; 83935; 83970; 84100; 84132; 84156; 84300; 84439; 84443; 84484; 85025; 85027; 85379; 85610; 85730; 93005; 94760; 96365; 96366; 96368; 96375; 99285; A9540; A9558; G0378; J1644; J1650; J2270; J2405; J3010; J3475; J3480; J7030; J7040; J7050; Q9967; U0003

== ENCOUNTER 2021-09-07 09:28 | Observation (INO) | payer SELFPAY ==
--- OUTSIDE RECORDS SUMMARY | 2021-09-07 09:32 | XMS REPORT | Continuity of Care Document ---
:1960 Author Organization [facility] t Address [address] [place] [address] Care Team Providers Name Role Phone KAREN [...] [facility] Allergies, Adverse Reactions, Alerts Allergy Allergy Status Severity Reaction(s) Onset Inactive Treating Comm ents Source Name Type Date Date Clinician Sulfa Adverse Active Info Not [facility] Reaction Available [facility] Medications Ordered Filled Start Stop Current Ordering Indication Dosage Frequency Signature Comments Components Source Medication Medication Date Date Medication? Clinician (SIG) Name Name Metformin Metformin Yes Nancy [address] [facility] HCl HCl 4-27 [facility] with a [facility] - 00:00: meal [address] Procedures This patient has no known procedures. Encounters Start End Encounter Admission Attending Care Care Encounter Source Date/Time Date/Time Type Type Clinicians Facility Department ID 2017-12-01 2017-12-01 [facility] [id number] [facility] 09:06:00 09:06:00 [facility] 2017-11-22 2017-11-22 [facility] [id number] [facility] 13:28:00 13:28:00 [facility] 2017-10-28 2017-10-28 [facility] [id number] [facility] 15:25:00 15:25:00 [facility] 2017-10-27 2017-10-27 [facility] [id number] [facility] [address] 11:53:00 11:53:00 [facility] 2017-10-25 2017-10-25 [facility] [id number] [facility] [address] 13:30:00 13:30:00 [facility] Results Test Description Test Time Test Comments Results Result Comments Source TSH, THIRD GENERATION 2021-07-27 00:30:50 Test Item Value Reference Range Interpretation Comme nts TSH, THIRD GENERATION (test code = 2821) 6.320 UIU/ML 0.400-4.100 H LIPID [id number] 00:15:36 Test Item Value Reference Range Interpretation Comments CHOLESTEROL (test 247 MG/DL <200 H code = 2210) TRIGLYCERIDES (test 265 MG/DL <150 H code = 2232) HDL CHOLESTEROL (test 107 MG/DL >39 code = 2220) CALC LDL CHOL (test 102 MG/DL <100 H NOTE: C ALCULATED LDL code = 2237) IS BASED ON RUIZ-LOPEZ METHOD WHICHINCLUDES ADJUSTABLE TRIGLYCERIDE:VL DL CHOLESTEROL RAT IO.THIS FACTOR VARIES B Y MEASURED TRIGLY CERIDE AND NON-HDLCHOL ESTEROL CONCENTRATIONS WITH INCREASED CALCU LATED LDL SEENIN HIGH ER TRIGLYCERIDE OR LOWER NON-HDL SPECIME NS. FOR MOREINFORMATION , SEE CLIENT ANNOUNCE MENT AT [email or web address] RISK RATIO LDL/HDL 0.95 RATIO <3.22 (test code = 2238) COMPREHENSIVE METABOLIC [id number] 00:15:36 Test Item Value Reference Range Interpretation Comments GLUCOSE (test code = 109 MG/DL 70-99 H 2216) BUN (test code = 27 MG/DL 8-23 H 2207) CREATININE (test 1.82 MG/DL 0.60-1.30 H code = 2214) eGFR (2020 CKD-EPI) 31 ML/MIN/1.73 >60 L (test code = 73990) CALC BUN/CREAT (test 15 RATIO 6-28 code = 2235) SODIUM (test code = 136 MEQ/L 324-867 8672) POTASSIUM (test code 3.7 MEQ/L 3.5-5.4 = 2227) CHLORIDE (test code 94 MEQ/L 95-107 L = 221) CARBON DIOXIDE (test 21 MEQ/L 19-31 code = 2206) CALCIUM (test code = 10.4 MG/DL 8.5-10.5 2208) PROTEIN, TOTAL (test 8.2 G/DL 6.1-8.3 code = 2229) ALBUMIN (test code = 4.9 G/DL 3.5-5.2 2200) CALC GLOBULIN (test 3.3 G/DL 1.9-3.7 code = 2240) CALC A/G RATIO (test 1.5 RATIO 1.0-2.6 code = 2234) BILIRUBIN, TOTAL 0.8 MG/DL See_Comment [Automated message] (test code = 2207) The syste m which generated this result transmit cristo reference range : <=1.2. The refe rence range was not u sed to interpret th is result as normal/abnormal . ALKALINE PHOSPHATASE 69 U/L 40-140 (test code = 2204) AST (test code = 38 U/L 9-2217) ALT (test code = 37 U/L 5-40 2218) HEMOGLOBIN [id number] 03:29:50 Test Item Value Reference Range Interpretation Comments HEMOGLOBIN A1c (test code = 92707) 6.3 % 4.2-5.6 H CBC W/AUTO DIFF WITH [id number] 03:01:52 Test Item Value Reference Range Interpretation Comments WBC (test code = 8.5 K/UL 3.5-11.0 1001) RBC (test code = 4.48 M/UL 3.80-5.40 1002) HEMOGLOBIN (test 15.0 G/DL 11.5-15.5 code = 1003) HEMATOCRIT (test 43.9 % 34.0-45.0 code = 1004) MCV (test code = 98.0 fL 80.0-99.0 1005) MCH (test code = 33.5 PG 25.0-33.0 H 1006) MCHC (test code = 34.2 G/DL 31.0-36.0 1007) RDW (test code = 13.7 % 11.5-15.0 1038) NEUTROPHILS (test 58.5 % code = 1008) LYMPHOCYTES (test 33.3 % code = 1010) MONOCYTES (test code 7.4 % = 1011) EOSINOPHILS (test 0.4 % code = 1012) BASOPHILS (test code 0.2 % = 1013) IMMATURE 0.2 % GRANYLOCYTES (test code = 1036) NUCLEATED RBCS (test 0.0 /100 See_Comment [Autom ated message] code = 1065) WBC'S The system [employer]era generated this result transmitted ref erence range: 0.0. The reference range was not used to int erpret this result as normal/abnormal . PLATELET COUNT (test 281 K/UL 130-400 code = 1015) ABSOLUTE NEUTROPHILS 4.98 K/UL 1.50-7.50 (test code = 1066) ABSOLUTE LYMPHOCYTES 2.84 K/UL 1.00-4.00 (test code = 1067) ABSOLUTE MONOCYTES 0.63 K/UL 0.20-1.00 (test code = 1068) ABSOLUTE EOSINOPHILS 0.03 K/UL 0.00-0.50 (test code = 1040) ABSOLUTE BASOPHILS 0.02 K/UL 0.00-0.20 (test code = 1069) ABS IMMATURE 0.02 K/UL 0.00-0.10 GRANULOCYTES (test code = 1020) ABS NUCLEATED RBCS 0.00 K/UL 0.00-0.11 UN LESS (test code = 17716) OTHERWIS E INDICATED, ALL TESTING PER [facility], I [place]. [address] [place] [address] LABORATORY DIRE CTOR: SHADY VAZQUEZ M.D. CLIA NUMBER [id number] CAP ACCREDITATION N O. [id number] BASIC METABOLIC [id number] 05:52:00 Test Item Value Reference Range Interpretation Comments SODIUM (BEAKER) 135 meq/L 136-145 L (test code = 381) POTASSIUM (BEAKER) 3.9 meq/L 3.5-5.1 (test code = 379) CHLORIDE (BEAKER) 101 meq/L 98-107 (test code = 382) CO2 (BEAKER) (test 25 meq/L 22-29 code = 355) BLOOD UREA NITROGEN 11 mg/dL 7-21 (BEAKER) (test code = 354) CREATININE (BEAKER) 0.84 mg/dL 0.57-1.25 (test code = 358) GLUCOSE RANDOM 157 mg/dL 70-105 H (BEAKER) (test code = 652) CALCIUM (BEAKER) 9.0 mg/dL 8.4-10.2 (test code = 697) EGFR (BEAKER) (test 69 mL/min/1.73 ESTIMA CRISTO GFR IS code = 1092) sq m NOT ACCURATE CREATININE CLEARANCE IN PREDICTING GLOMERULAR FILTRATION RATE . ESTIMATED GFR I S NOT APPLICABLE FOR DIALYSIS PATIEN TS. CBC W/PLT COUNT & AUTO [id number] 04:21:00 Test Item Value Reference Range Interpretation [...] PERCENT (BEAKER) (test code = 2801) POCT-GLUCOSE [id number] 22:00:00 Test Item Value Reference Range Interpretation Comments POC-GLUCOSE METER 148 mg/dL 70-[address] [facility] 6720 (BEAKER) (test code = [place] 1538) [id number] POCT-GLUCOSE [id number] 17:06:00 Test Item Value Reference Range Interpretation Comments POC-GLUCOSE METER 224 mg/dL 70-[address] [facility] 6720 (BEAKER) (test code = GAIL Mccollum [facility] 1538) [id number] POCT-GLUCOSE [id number] 12:39:00 Test Item Value Reference Range Interpretation Comments POC-GLUCOSE METER 214 mg/dL 70-[address] [facility] 6720 (BEAKER) (test code = GAIL Mccollum [facility] 1538) [address] POCT-GLUCOSE [id number] 08:26:00 Test Item Value Reference Range Interpretation Comments POC-GLUCOSE METER 166 mg/dL 70-[address] [facility] 6720 (BEAKER) ([facility] = [facility] 1538) [address] COMPREHENSIVE METABOLIC [id number] 05:17:00 Test Item Value Reference Range Interpretation [...] S NOT APPLICABLE FOR DIALYSIS PATIEN TS. [id number] 05:14:00 Test Item Value Reference Range Interpretation Comments PHOSPHORUS (BEAKER) (test code = 2.9 mg/dL 2.3-4.7 604) [id number] 05:14:00 Test Item Value Reference Range Interpretation Comments MAGNESIUM (BEAKER) (test code = 1.6 mg/dL 1.6-2.6 627) CBC W/PLT COUNT & AUTO [id number] 04:48:00 Test Item Value Reference Range Interpretation [...] PERCENT (BEAKER) (test code = 2801) POCT-GLUCOSE [id number] 22:42:00 Test Item Value Reference Range Interpretation Comments POC-GLUCOSE METER 184 mg/dL 70-110 H TESTED AT [place] [address] (BEAKER) (test code = [facility] 1538) [address] POCT-GLUCOSE [id number] 18:51:00 Test Item Value Reference Range Interpretation Comments POC-GLUCOSE METER 220 mg/dL 70-110 H TESTED AT [place] [address] (BEAKER) (test code = [facility] 1538) [address] [id number] 16:07:00 Test Item Value Reference Range Interpretation Comments MAGNESIUM (BEAKER) (test code = 1.8 mg/dL 1.6-2.6 627) [id number] 16:07:00 Test Item Value Reference Range Interpretation Comments POTASSIUM (BEAKER) (test code = 4.1 meq/L 3.5-5.1 379) POCT-GLUCOSE [id number] 15:47:00 Test Item Value Reference Range Interpretation Comments POC-GLUCOSE METER 215 mg/dL 70-110 H TESTED AT [place] [address] (BEAKER) (test code = [facility] 1538) [address] [id number] 10:16:00 Test Item Value Reference Range Interpretation Comments MAGNESIUM (BEAKER) (test code = 1.7 mg/dL 1.6-2.6 627) POCT-GLUCOSE [id number] 09:25:00 Test Item Value Reference Range Interpretation Comments POC-GLUCOSE METER 156 mg/dL 70-[address] [facility] 6720 (BEAKER) (test code = [place] 1538) [address] BASIC METABOLIC [id number] 06:32:00 Test Item Value Reference Range Interpretation [...] PATIEN TS. CBC W/PLT COUNT & AUTO [id number] 05:42:00 Test Item Value Reference Range Interpretation [...] PERCENT (BEAKER) (test code = 2801) POCT-GLUCOSE [id number] 22:05:00 Test Item Value Reference Range Interpretation Comments POC-GLUCOSE METER 255 mg/dL 70-[address] [facility] 6720 (BEAKER) (test code = [place] 1538) [address] MR, BRAIN, WITHOUT [id number] 19:23:00Reason for exam:->StrokeWhat is the patient's sedation [...] arteries: Normal flow-related enhancement within the bilateral [employer] P1-P2 segments without flow-limiting stenosis. 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 MRA NECK:Common carotid arteries: Unremarkable. [...] cannot be excluded by imaging). Signed: Caty Bargerort Verified Date/Time: 12/08/2018 19:23:05 Reading Location: [facility] B1 C013V Neuro Reading Room MR, MRA, NECK, WITHOUT IV [id number] 19:23:00FINAL REPORT MR, BRAIN, WITHOUT CONTRAST, MR, [...] arteries: Normal flow-related enhancement within the bilateral FRUIT [employer] WORK[employer] P1-P2 segments without flow-limiting stenosis. 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 MRA NECK:Common carotid arteries: Unremarkable. [...] Verified Date/Time: 12/08/2018 19:23:05 Reading Location: [facility] C013V Neuro Reading Room MR, MRA, BRAIN, WITHOUT [id number] 19:23:00Reason for exam:->StrokeWhat is the patient's sedation [...] arteries: Normal flow-related enhancement within the bilateral FRUIT [employer]UT F[employer] WORKER P1-P2 segments without flow-limiting stenosis. 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 MRA NECK:Common carotid arteries: Unremarkable. [...] MDReport Verified Date/Time: 12/08/2018 19:23:05 Reading Location: [address] Neuro Reading Room -GLUCOSE [id number] 19:03:00 Test Item Value Reference Range Interpretation Comments POC-GLUCOSE METER 158 mg/dL 70-[address] [facility] 6720 (BEAKER) (test code = GAIL Mccollum [place] 1538) [id number] 17:33:00 Test Item Value Reference Range Interpretation Comments POTASSIUM (BEAKER) (test code = 4.0 meq/L 3.5-5.1 379) [id number] 17:33:00 Test Item Value Reference Range Interpretation Comments MAGNESIUM (BEAKER) (test code = 2.4 mg/dL 1.6-2.6 627) [id number] 14:55:00 Test Item Value Reference Range Interpretation Comments RPR SCREEN (BEAKER) (test code = Nonreactive Nonreactive 420) [id number] 12:28:00 Test Item Value Reference Range Interpretation Comments POTASSIUM (BEAKER) (test code = 2.9 meq/L 3.5-5.1 L 379) TROPONIN [id number] 10:59:00 Test Item Value Reference Range Interpretation [...] failure, acidosis, acute neurological disease, and persistent tachyarrhythmia.[id number] 10:50:00 Test Item Value Reference Range Interpretation Comments MAGNESIUM (BEAKER) (test code = 1.8 mg/dL 1.6-2.6 627) HEMOGLOBIN [id number] 07:49:00 Test Item Value Reference Range Interpretation Comments HEMOGLOBIN A1C (BEAKER) (test code = 8.1 % 4.3-6.1 H 368) HIV-1 ANTIGEN WITH HIV-1/2 [id number] 06:03:00 Test Item Value Reference Range Interpretation Comments HIV-1 ANTIGEN WITH HIV 1\T\2 Nonreactive Nonreactive ANTIBODY (2) (BEAKER) (test code = 2586) [id number] 05:54:00 Test Item Value Reference Range Interpretation Comments POTASSIUM (BEAKER) (test code = 2.8 meq/L 3.5-5.1 L 379) VITAMIN B12 AND [id number] 03:31:00 Test Item Value Reference Range Interpretation Comments VITAMIN B12 (BEAKER) (test code = 1168 pg/mL 213-816 H 774) FOLATE (BEAKER) (test code = 362) > ng/mL >=7.0 TSH/FREE T4 IF [id number] 03:24:00 Test Item Value Reference Range Interpretation Comments THYROID STIMULATING HORMONE 2.19 uIU/mL 0.35-4.94 (BEAKER) (test code = 772) BASIC METABOLIC [id number] 02:06:00 Test Item Value Reference Range Interpretation [...] m DATA TO CALCULA TE ESTIMATED GFR. [id number] 02:04:00 Test Item Value Reference Range Interpretation Comments MAGNESIUM (BEAKER) 1.5 mg/dL 1.6-2.6 L Specimen slightly (test code = 627) hemolyzed FastingLIPID [id number] 02:04:00 Test Item Value Reference Range Interpretation [...] High >=190 FastingCBC W/PLT COUNT & AUTO [id number] 01:36:00 Test Item Value Reference Range Interpretation [...] 0-1 PERCENT (BEAKER) (test code = 2801) [id number] 23:06:00 Test Item Value Reference Range Interpretation Comments ETHANOL (BEAKER) (test code = 400) < mg/dL <=10 TROPONIN [id number] 22:58:00 Test Item Value Reference Range Interpretation [...] acute neurological disease, and persistent tachyarrhythmia.BASIC METABOLIC [id number] 22:56:00 Test Item Value Reference Range Interpretation [...] DATA TO CALCULA TE ESTIMATED GFR. URINALYSIS [id number] 22:41:00 Test Item Value Reference Range Interpretation Comments RBC UA (BEAKER) (test code = 519) 1 /HPF WBC UA (BEAKER) (test code = 520) < /HPF SQUAMOUS EPITHELIAL (BEAKER) (test 7 /HPF code = 516) HYALINE CASTS (BEAKER) (test code = 2 /LPF 514) URINALYSIS WITH MICROSCOPIC IF [id number] 22:36:00 Test Item Value Reference Range Interpretation [...] SOURCE(BEAKER) (test code = 2795) BASIC METABOLIC [id number] 19:01:00 Test Item Value Reference Range Interpretation [...] m DATA TO CALCULA TE ESTIMATED GFR. [id number] 19:01:00 Test Item Value Reference Range Interpretation Comments MAGNESIUM (BEAKER) (test code = 0.7 mg/dL 1.6-2.6 LL 627) [id number] 18:58:00 Test Item Value Reference Range Interpretation Comments PHOSPHORUS (BEAKER) (test code = 3.3 mg/dL 2.3-4.7 604) HEPATIC FUNCTION [id number] 18:58:00 Test Item Value Reference Range Interpretation [...]
[2021-09-07] MEDS ORDERED: NA CHLORIDE 0.9% 0 ML ONE (09:47)
[2021-09-07 09:50] LABS: Absolute Lymphocytes (CBC) 2.7 K/uL (0.7-4.9); Lymphocytes % 38.4 % (15.3-44.8); MPV 7.6 fL (7.6-11.3); RBC Red Blood Cell Count 4.04 M/uL (3.86-4.86)
[2021-09-07 09:52] LABS: Protime INR 1.03
[2021-09-07 10:20] LABS: Albumin 3.8 g/dL (3.4-5.0); Bilirubin Direct 0.2 mg/dL (0-0.2); Bilirubin Total 1.2 mg/dL (0.2-1.0); Magnesium 1.3 mg/dL (1.8-2.4); Protein, Total 7.8 g/dL (6.4-8.2); Troponin High Sensitivity 10.6 pg/mL (<58.9)
[2021-09-07 10:22] LABS: Potassium 2.7 mmol/L (3.5-5.1)
[2021-09-07] MEDS ORDERED: POTASSIUM CL SA 10 MEQ TAB PO ONE (10:51)
[2021-09-07] MEDS ORDERED: Magnesium Sulfate 2gm IVPB 2 G/50 ML BAG IV ONE (10:51)
--- NOTE | 2021-09-07 11:02 | EDPHYS ---
Physician Documentation [facility] Name: Billie Botello Age: 60 yrs Sex: Female : 1960 Arrival Date: 09/07/2021 Time: 09:30 Bed 3 Private MD: ED Physician Laverne Marroquin HPI: 09/07 09:46 This 60 yrs old Female presents to ER via EMS with complaints of Chest Pain. sp3 09:46 60-year-old female with a history of diabetes, hypertension, hyperlipidemia, prior EtOH sp3 abuse presents to the ED via EMS for substernal chest pain that started while at work (she was seated). Pain is described as a dull ache and nonradiating. EMS administered sublingual nitroglycerin x2 and 3 baby aspirin. Initial blood pressure 75/60 upon arrival to the ED. Patient does state that her chest pain is resolved. She denies headache, neck pain, shortness breath, abdominal pain, nausea, vomiting, diarrhea, neurological symptoms, known travel history, known sick contacts, any other symptoms on ROS at this time.. Historical: - Allergies: 09:37 Bactrim; ke1 09:37 Sulfa (Sulfonamide Antibiotics); ke1 09:37 Trazodone; ke1 09:37 TRIMETHOPRIM; ke1 - PMHx: 09:37 Diabetes - NIDDM; etoh abuse; High Cholesterol; Hypertension; Pancreatitis; ke1 - PSHx: 09:37 Appendectomy; section; left foot; right wrist; Tonsillectomy; ke1 - Immunization history:: Client reports receiving the 2nd dose of the Covid vaccine, Pneumococcal vaccine is not up to date, Flu vaccine is not up to date. - Social history:: Smoking status: Patient reports the use of cigarette tobacco products, smokes one pack cigarettes per day. ROS: 09:49 Constitutional: Negative for fever, chills, and weight loss, Eyes: Negative for injury, sp3 pain, redness, and discharge, ENT: Negative for injury, pain, and discharge, Neck: Negative for injury, pain, and swelling, Respiratory: Negative for shortness of breath, cough, wheezing, and pleuritic chest pain, Abdomen/GI: Negative for abdominal pain, nausea, vomiting, diarrhea, and constipation, Back: Negative for injury and pain, MS/Extremity: Negative for injury and deformity, Skin: Negative for injury, rash, and discoloration, Neuro: Negative for headache, weakness, numbness, tingling, and seizure, Psych: Negative for depression, anxiety, suicide ideation, homicidal ideation, and hallucinations, Allergy/Immunology: Negative for hives, rash, and allergies, Endocrine: Negative for neck swelling, polydipsia, polyuria, polyphagia, and marked weight changes. 09:49 All other systems are negative. Exam: 09:49 Constitutional: This is a well developed, well nourished patient who is awake, alert, sp3 and in no acute distress. Head/Face: Normocephalic, atraumatic. Eyes: Pupils equal round and reactive to light, extra-ocular motions intact. Lids and lashes normal. Conjunctiva and sclera are non-icteric and not injected. Cornea within normal limits. Periorbital areas with no swelling, redness, or edema. ENT: Nares patent. No nasal discharge, no septal abnormalities noted. External auditory canals are clear. Oropharynx with no redness, swelling, or masses, exudates, or evidence of obstruction, uvula midline. Mucous membranes moist. Neck: Trachea midline, no thyromegaly or masses palpated, and no cervical lymphadenopathy. Supple, full range of motion without nuchal rigidity, or vertebral point tenderness. No Meningismus. Chest/axilla: Normal chest wall appearance and motion. Nontender with no deformity. No lesions are appreciated. Cardiovascular: Regular rate and rhythm with a normal S1 and S2. No gallops, murmurs, or rubs. Normal PMI, no JVD. No pulse deficits. Respiratory: Lungs have equal breath sounds bilaterally, clear to auscultation and percussion. No rales, rhonchi or wheezes noted. No increased work of breathing, no retractions or nasal flaring. Abdomen/GI: Soft, non-tender, with normal bowel sounds. No distension or tympany. No guarding or rebound. No evidence of tenderness throughout. Back: No spinal tenderness. No costovertebral tenderness. Full range of motion. Skin: Warm, dry with normal turgor. Normal color with no rashes, no lesions, and no evidence of cellulitis. MS/ Extremity: Pulses equal, no cyanosis. Neurovascular intact. Full, normal range of motion. Neuro: Awake and alert, GCS 15, oriented to person, place, time, and situation. Cranial nerves II-XII grossly intact. Motor strength 5/5 in all extremities. Sensory grossly intact. Cerebellar exam normal. Normal gait. Psych: Awake, alert, with orientation to person, place and time. Behavior, mood, and affect are within normal limits. 09:49 ECG was reviewed by the Attending Physician. EKG demonstrates normal sinus rhythm at 93 bpm with normal intervals except for mild extended QTC at 522, normal axis, nonspecific ST/T changes without evidence of acute ischemia. Vital Signs: 09:32 BP 73 / 60; Pulse 89; Resp 17; Temp 97.3; Pulse Ox 94% on R/A; Weight 82.55 kg; Height ke1 5 ft. 4 in. (162.56 cm); Pain 7/10; 09:34 BP 75 / 60; Pulse 90; Resp 14; Temp 97.3; Pulse Ox 98% ; Weight 82.55 kg; Height 5 ft. mb7 4 in. (162.56 cm); 10:07 BP 110 / 94; Pulse 76; Resp 15; Pulse Ox 98% ; ke1 09:34 Body Mass Index 31.24 (82.55 kg, 162.56 cm) mb7 MDM: 09:38 Patient medically screened. sp3 09:50 Data reviewed: vital signs, nurses notes. ED course: 60-year-old with chest pain and sp3 mild QTC prolongation. Chest pain is resolved after sublingual nitroglycerin however her blood pressure is now better. Lungs are clear and fluid bolus will be administered. Heart score greater than 4 and will likely need 23-hour observation. I am not highly suspicious for vascular compromise including aortic dissection, pulmonary embolism, pneumonia, sepsis, shock, or any other critical findings at this time.. 03 09:32 Order name: Basic Metabolic Panel; Complete Time: 10:57 09/07 09:32 Order name: CBC with Diff; Complete Time: 10:57 09/07 09:32 Order name: LFT's; Complete Time: 10:57 09/07 09:32 Order name: Magnesium; Complete Time: 10:57 09/07 09:32 Order name: NT PRO-BNP; Complete Time: 10:57 09/07 09:32 Order name: PT-INR; Complete Time: 10:57 09/07 09:32 Order name: Troponin HS; Complete Time: 10:57 smith 09/07 09:32 Order name: XRAY Chest (1 view) smith 09/07 09:32 Order name: EKG; Complete Time: 09:33 smith 09/07 11:21 Order name: SARS-COV-2 RT PCR (Document "Date of Onset" if Symptomatic) ke1 09/07 12:55 Order name: CT EDMS 09/07 09:32 Order name: Cardiac monitoring; Complete Time: 09:35 smith 09/07 09:32 Order name: EKG - Nurse/Tech; Complete Time: 09:35 smith 09/07 09:32 Order name: IV Saline Lock; Complete Time: 09:59 smith 09/07 09:32 Order name: Labs collected and sent; Complete Time: 09:40 smith 09/07 09:32 Order name: O2 Per Protocol; Complete Time: 09:40 smith 09/07 09:32 Order name: O2 Sat Monitoring; Complete Time: 09:40 09/07 12:27 Order name: CONS Physician Consult EDWA Administered Medications: 09:58 Drug: NS 0.9% 500 ml Route: IV; Rate: bolus; Site: left upper arm; ke1 10:29 Follow up: IV Status: Completed infusion smith 10:55 Follow up: IV Status: Completed infusion ke1 10:55 Drug: Potassium Chloride 40 mEq Route: PO; ke1 14:30 Follow up: Response: No adverse reaction ke1 10:55 Drug: Magnesium Sulfate 2 grams Route: IVPB; Infused Over: 2 hrs; Site: left upper arm; ke1 12:00 Follow up: IV Status: Completed infusion ke1 Disposition Summary: 09/07/21 11:01 Hospitalization Ordered Hospitalization Status: Observation sp3 Provider: Uvaldo Rodriguez sp3 [facility] sp3 Condition: Stable sp3 Problem: an acute exacerbation sp3 Symptoms: have worsened sp3 Bed/Room Type: Standard sp3 Room Assignment: [facility](09/07/21 14:08) Diagnosis - Chest pain, unspecified sp3 Forms: - Medication Reconciliation Form sp3 - SBAR form sp3 Signatures: Dispatcher [employer] EDWA Betty Means RN RN Laverne Marroquin MD MD sp3 [place] RN RN Adilson Arzola RN RN ke1 Corrections: (The following items were deleted from the chart) 14:08 11:01 sp3 ss
--- NOTE | 2021-09-07 11:02 | ER ---
Nurse's Notes [facility] Name: Billie Botello Age: 60 yrs Sex: Female : 1960 Arrival Date: 09/07/2021 Time: 09:30 Bed 3 Private MD: Diagnosis: Chest pain, unspecified Presentation: 09/07 09:32 Chief complaint: Patient states: CP to left side of chest radiating to L arm starting ke1 at around 0840 am this morning. Coronavirus screen: Vaccine status: Patient reports receiving the 2nd dose of the covid vaccine. Ebola Screen: No symptoms or risks identified at this time. Initial Sepsis Screen: Does the patient meet any 2 criteria? No. Patient's initial sepsis screen is negative. Does the patient have a suspected source of infection? No. Patient's initial sepsis screen is negative. Risk Assessment: Do you want to hurt yourself or someone else? Patient reports no desire to harm self or others. Onset of symptoms was September 07, 2021. 09:32 Method Of Arrival: EMS: [facility] ke1 09:32 Acuity: NIKA 3 ke1 Triage Assessment: 09:32 General: Appears in no apparent distress. Behavior is cooperative. Pain: Complains of ke1 pain in chest Pain radiates to left arm Pain currently is 7 out of 10 on a pain scale. Quality of pain is described as sharp, squeezing, Is intermittent, Alleviated by rest, Aggravated by coughing Noted to be quiet/stoic, Also complains of inability to concentrate. Cardiovascular: Heart tones S1 S2 present Capillary refill < 3 seconds Patient's skin is warm and dry. Pulses are all present. Respiratory: Airway is patent Breath sounds are clear bilaterally. GI: No deficits noted. : No deficits noted. Musculoskeletal: Range of motion: limited in left knee and left ankle knee brace Reports previous surgery left ankle with screw. Historical: - Allergies: 09:37 Bactrim; ke1 09:37 Sulfa (Sulfonamide Antibiotics); ke1 09:37 Trazodone; ke1 09:37 TRIMETHOPRIM; ke1 - PMHx: 09:37 Diabetes - NIDDM; etoh abuse; High Cholesterol; Hypertension; Pancreatitis; ke1 - PSHx: 09:37 Appendectomy; section; left foot; right wrist; Tonsillectomy; ke1 - Immunization history:: Client reports receiving the 2nd dose of the Covid vaccine, Pneumococcal vaccine is not up to date, Flu vaccine is not up to date. - Social history:: Smoking status: Patient reports the use of cigarette tobacco products, smokes one pack cigarettes per day. Screenin:00 Fall Risk No fall in past 12 months (0 pts). No secondary diagnosis (0 pts). IV access ke1 (20 points). Ambulatory Aid- None/Bed Rest/Nurse Assist (0 pts). Gait- Normal/Bed Rest/Wheelchair (0 pts) Mental Status- Oriented to own ability (0 pts). Total Arias Fall Scale indicates No Risk (0-24 pts). 14:26 Abuse screen: Denies threats or abuse. Nutritional screening: No deficits noted. ke1 Tuberculosis screening: No symptoms or risk factors identified. Assessment: 10:22 Reassessment: Dr. Marroquin notified of potassium 2.7 and Mg 1.3. ss 14:29 Pain: Pain began 7 am today. ke1 Vital Signs: 09:32 BP 73 / 60; Pulse 89; Resp 17; Temp 97.3; Pulse Ox 94% on R/A; Weight 82.55 kg; Height ke1 5 ft. 4 in. (162.56 cm); Pain 7/10; 09:34 BP 75 / 60; Pulse 90; Resp 14; Temp 97.3; Pulse Ox 98% ; Weight 82.55 kg; Height 5 ft. mb7 4 in. (162.56 cm); 10:07 BP 110 / 94; Pulse 76; Resp 15; Pulse Ox 98% ; ke1 09:34 Body Mass Index 31.24 (82.55 kg, 162.56 cm) 7 ED Course: 09:30 Patient arrived in ED. ds1 09:32 Laverne Marroquin MD is Attending Physician. sp3 09:32 Adilson Arzola, TEE is Primary Nurse. ke1 09:34 EKG done, by ED staff, reviewed by Laverne Marroquin MD. mb7 09:37 Triage completed. ke1 09:55 Inserted saline lock: 20 gauge in left upper arm, using aseptic technique. ke1 11:00 Bed in low position. Call light in reach. NIBP on. ke1 11:01 Uvaldo Rodriguez MD is Hospitalizing Provider. sp3 11:44 XRAY Chest (1 view) In Process Unspecified. EDMS 14:27 Arm band placed on. ke1 14:28 No provider procedures requiring assistance completed. Patient admitted, IV remains in ke1 place. Patient maintains SpO2 saturation greater than 95% on room air. Administered Medications: 09:58 Drug: NS 0.9% 500 ml Route: IV; Rate: bolus; Site: left upper arm; ke1 10:29 Follow up: IV Status: Completed infusion smith 10:55 Follow up: IV Status: Completed infusion ke1 10:55 Drug: Potassium Chloride 40 mEq Route: PO; ke1 14:30 Follow up: Response: No adverse reaction ke1 10:55 Drug: Magnesium Sulfate 2 grams Route: IVPB; Infused Over: 2 hrs; Site: left upper arm; ke1 12:00 Follow up: IV Status: Completed infusion ke1 Outcome: 11:01 Decision to Hospitalize by Provider. sp3 14:29 Admitted to Med/surg accompanied by nurse. ke1 14:29 Condition: stable 14:29 Instructed on the need for admit. 14:49 Patient left the ED. ke1 Signatures: Dispatcher [employer] EDME Peggy Marquez ds1 Betty Means RN RN ss Laverne Marroquin MD MD sp3 Taylor Lund mb7 Layne Mari RN RN ha Ebrottie, Kouassi, RN RN ke1 Corrections: (The following items were deleted from the chart) 14:49 09:32 Musculoskeletal: No deficits noted. ke1 ke1
--- NOTE | 2021-09-07 12:15 | RAD REPORT ---
EXAM DESCRIPTION: RAD - Chest Single View - 09/07/2021 11:45 am CLINICAL HISTORY: CHEST PAIN COMPARISON: Portable 05/27/2021 TECHNIQUE: AP portable chest image was obtained 09/07/2021 11:45 am . FINDINGS: No acute lung parenchymal finding. Interstitial pattern is similar to the prior study. No significant failure or volume overload findings identifiable. Heart and vasculature are normal. No me asurable pleural effusion and no pneumothorax. Thoracic spine degenerative change present. Chronic AC joint separation noted on the right. No acute aortic findings suspected. IMPRESSION: No acute cardiopulmonary process. Chest findings are similar to the 05/27/2021 study.
[2021-09-07] MEDS ORDERED: ONDANSETRON 4 MG/2 ML VIAL IV PRN (12:27)
--- NOTE | 2021-09-07 12:32 | P.HP ---
Patient History Date of Service: 09/07/21 Reason for admission: Chest pain, hypotension History of Present Illness: 60-year-old female, PMH: DM 2, hypertension, pancreatitis, CVA, GERD Presents to the ED due to chest pain and dizziness at work this morning. Chest pain is described as squeezing in the left chest, radiated down to her left arm. She was not doing any strenuous activity when this occurred. Associated symptoms with dizziness and some nausea. 1 week of intermittent dizziness, intermittent emesis episodes shortly after eating which is new, few months of cramping abdominal discomfort with diarrhea. Denies any recent fevers. Reports several of her medications were changed 6 weeks ago, she is unsure what all medications were changed. Does state a new medication was thyroid pill. In the ED, EKG without specific ST changes, CXR clear, initial troponin negative, but given patient's risk factors and hypotension (70s/40s on presentation), ED physician requests to bring patient in under observation for further evaluation management. Allergies sulfamethoxazole [From Bactrim] Allergy (Intermediate, Verified 05/07/20 21:54) Rash trimethoprim [From Bactrim] Allergy (Intermediate, Verified 05/07/20 21:54) Rash Sulfa (Sulfonamide Antibiotics) Allergy (Verified 05/07/20 21:54) Unknown trazodone Allergy (Verified 05/07/20 21:54) Itching Home Medications: Aspirin [Aspirin EC 81 MG] 81 mg PO DAILY #90 tablet. 01/01/18 Atorvastatin Calcium [Lipitor] 40 mg PO BEDTIME #30 tab 02/20/19 Citalopram [Celexa*] 40 mg PO DAILY 06/08/20 Omeprazole [Prilosec] 1 tab PO DAILY 06/08/20 Amlodipine [Norvasc*] 10 mg PO DAILY 01/13/21 Carvedilol [Coreg] 12.5 mg PO BID 01/13/21 Cetirizine HCl [Zyrtec] 10 mg PO DAILY 05/28/21 Fenofibrate [Tricor*] 145 mg PO DAILY 05/28/21 Insulin Detemir [Levemir] 10 units SQ BEDTIME 05/28/21 Insulin Detemir [Levemir] 40 units SQ DAILY 05/28/21 ondansetron HCL [Zofran] 8 mg PO BID PRN 05/28/21 Docusate [Colace Cap*] 100 mg PO BID #30 cap 06/02/21 Sennosides [Senokot] 17.2 mg PO BID #120 tablet 06/02/21 lisinopriL [Prinivil*] 5 mg PO DAILY #30 tab 06/02/21 - Past Medical/Surgical History Diabetic: Yes -: HTN -: Hyperlipidemia -: GERD -: CVA x2 -: Tobacco abuse -: Diabetes mellitus type 2 insulin-dependent -: renal insufficiency -: hypercholesterolemia -: -: R wrist Sx (metal plate) -: rectal polyps removed -: Left ankle orif -: ectopic Psychosocial/ Personal History: The patient is single. She has 1 child. Retired - Family History Sister -: Lung disease, Diabetes Notes: asthma Mother -: Heart disease, Cancer Father -: Heart disease - Social History Smoking Status: Current every day smoker Alcohol use: Yes CD- Drugs: No Caffeine use: No Place of Residence: Home Review of Systems 10-point ROS is otherwise unremarkable Physical Examination - Physical Exam General: Alert, In no apparent distress, Oriented x3 HEENT: Sclerae nonicteric Neck: No LAD Respiratory: Clear to auscultation bilaterally, Normal air movement Cardiovascular: No edema, Regular rate/rhythm Gastrointestinal: Soft and benign, Tenderness (mild diffuse, moderate epigastric) Musculoskeletal: No erythema, No tenderness Integumentary: No significant lesion, No tenderness/swelling Neurological: Normal speech, Normal strength at 5/5 x4 extr, Normal affect - Studies Laboratory Data (last 24 hrs) 09/07/21 09:30: PT 11.9, INR 1.03 09/07/21 09:30: WBC 6.90, Hgb 13.7, Hct 40.0, Plt Count 354 09/07/21 09:30: Sodium 134 L, Potassium 2.7 L*, BUN 25 H, Creatinine 1.60 H, Glucose 175 H, Magnesium 1.3 L* D, Total Bilirubin 1.2 H, AST 93 H, ALT 83 H, Alkaline Phosphatase 71 Assessment and Plan - Advance Directives Does patient have a Living Will: No Does patient have a Durable POA for Healthcare: No Physician Review Additional Text: Problem list Chest pain, concern for ACS CARLOTA, likely prerenal Hyponatremia, hypokalemia, hypomagnesemia Early satiety, vomiting, diarrhea Hypotensive, with history of hypertension DM2, insulin-dependent History of pancreatitis GERD History of CVA History of alcohol dependence, quit 1 month ago Trend troponin, aspirin, statin, restart beta-mini once pressures improved and stable Cardiology consulted Monitor on telemetry EKG with nonspecific changes CXR clear CARLOTA, likely prerenal, patient appears dry, takes hydrochlorothiazide, has not been eating well, and intermittent diarrhea IV fluid hydration, replete electrolytes, nephrology consulted Accu-Cheks, sliding scale insulin Epigastric tenderness on exam, check lipase Given inability to tolerate much p.o. in the last 1-2 weeks, ongoing diarrhea, diffuse abdominal tenderness, more epigastric tenderness, will obtain CT abdomen/pelvis Lipase ordered No evidence of sepsis VTE: Lovenox Code: Full Dispo: Home, likely tomorrow, pending correction of the above Time Spent Managing Pts Care (In Minutes): 60
--- NOTE | 2021-09-07 12:54 | RAD REPORT ---
EXAM DESCRIPTION: CT - Abdomen Pelvis Wo Contrast - 09/07/2021 12:45 pm CLINICAL HISTORY: Abdominal pain. vomiting, early satiety, diarrhea COMPARISON: Abdomen Pelvis W Contrast dated 06/01/2021 TECHNIQUE: CT imaging of the abdomen and pelvis was performed without contrast. Solid organ, bowel a nd vascular assessment is limited due to lack of IV and oral contrast. All CT scans are performed using dose optimization technique as appropriate and may include automated exposure control or mA/KV adjustment according to patient size. FINDINGS: The lower lung brandt are clear. The liver, spleen, pancreas, adrenal glands and kidneys are within normal limits for a limited non-co ntrast examination. No bowel obstruction, free air, free fluid or abscess. Mild sigmoid diverticulosis without diverticul itis. The appendix is not identified as a discrete structure, however, no secondary findings of appen dicitis are identified. Moderate lumbar degenerative changes. IMPRESSION: No acute intra-abdominal or pelvic findings. Sigmoid diverticulosis without diverticulitis. Lumbar spondylosis. A limited non-contrast examination was performed as detailed.
[2021-09-07] MEDS: ENOXAPARIN 40 MG/0.4 ML SQ SCH (13:00)
[2021-09-07] MEDS: NA CHLORIDE 0.9% 1,000 ML IV SCH ×2 (13:00→18:35)
[2021-09-07] MEDS ORDERED: ENOXAPARIN 40 MG/0.4 ML SQ ONE (13:50)
[2021-09-07 15:12] LABS: Troponin High Sensitivity 6.8 pg/mL (<58.9)
[2021-09-07 15:30] LABS: Thyroid Stimulating Hormone 3.59 uIU/mL (0.360-3.740)
[2021-09-07 16:08] VITALS: BMI 29.3
[2021-09-07] MEDS: INSULIN -REGULAR HUMAN 50 UNIT/0.5 ML ML SQ SCH ×2 (16:30→21:00)
[2021-09-07] MEDS ORDERED: INFLUENZA VACCINE (for 6+ mo) 0.5 ML DOSE IMVAC ONE (20:00)
[2021-09-07] MEDS ORDERED: ZOLPIDEM TARTRATE 5 MG TABLET PO PRN (20:14)
[2021-09-07] MEDS ORDERED: ATORVASTATIN 40 MG TAB PO SCH (21:00)
[2021-09-08] MEDS: NA CHLORIDE 0.9% 1,000 ML IV SCH (03:20)
[2021-09-08 05:51] LABS: Absolute Lymphocytes (CBC) 2.6 K/uL (0.7-4.9); Hematocrit 35.7 % (36.0-45.0); Lymphocytes % 45.2 % (15.3-44.8); MPV 8.1 fL (7.6-11.3); RBC Red Blood Cell Count 3.57 M/uL (3.86-4.86)
[2021-09-08 06:05] LABS: Albumin 3.2 g/dL (3.4-5.0); Bilirubin Total 0.6 mg/dL (0.2-1.0); Magnesium 1.9 mg/dL (1.8-2.4); Potassium 3.1 mmol/L (3.5-5.1); Protein, Total 6.5 g/dL (6.4-8.2)
[2021-09-08] MEDS: INSULIN -REGULAR HUMAN 50 UNIT/0.5 ML ML SQ SCH ×3 (07:30→15:34)
[2021-09-08 09:00] VITALS: O2SAT 95
[2021-09-08] MEDS ORDERED: ASPIRIN EC 81 MG TAB PO SCH (09:00)
[2021-09-08] MEDS ORDERED: POTASSIUM CL SA 10 MEQ TAB PO ONE (09:00)
[2021-09-08] MEDS: ENOXAPARIN 40 MG/0.4 ML SQ SCH (09:33)
[2021-09-08 12:38] VITALS: BP 145/82; TEMP 97.7
--- NOTE | 2021-09-08 12:45 | P.DS ---
Admission Date: 09/07/21 Discharge Date: 09/08/21 Disposition: ROUTINE DISCHARGE Discharge Condition: FAIR Reason for Admission: Chest pain, hypotension Consultations: Cardiology-Dr. Gold - Problems (1) CARLOTA (acute kidney injury) Current Visit: Yes Status: Acute (2) Hypotension Current Visit: Yes Status: Acute (3) DM type 2 (diabetes mellitus, type 2) Current Visit: Yes Status: Acute Brief History of Present Illness: 60-year-old female with PMH: DM 2, hypertension, pancreatitis, CVA, GERD presented to the ED due to chest pain and dizziness. Chest pain is described as squeezing in the left chest, radiated down to her left arm. Chest pain associated with dizziness and some nausea. 1 week of intermittent dizziness, intermittent emesis episodes shortly after eating which is new, few months of cramping abdominal discomfort with diarrhea. Denies any recent fevers. Reports several of her medications were changed 6 weeks ago, she is unsure what all medications were changed. Does state a new medication was thyroid pill. In the ED, EKG without specific ST changes, CXR clear, initial troponin negative, but given patient's risk factors and hypotension (70s/40s on presentation), patient hospitalized for further management. Hospital Course: Patient placed under observation on the medical floor. Troponin trended negative. She was resuscitated with IV fluid. Her blood pressure responded to IV fluid resuscitation. Predischarge BP 145/85. Her blood pressure medications were held. Patient was nausea and dizziness resolved. She still reports intermittent diarrhea. Seen by cardiology-Dr. Gold, ACS ruled out, patient cleared for discharge by cardiology. Her antihypertensives are held and she is informed to resume when systolic blood pressure is persistently greater than 140. Stool for C. difficile obtained during the hospital stay and the result is pending. Vital Signs/Physical Exam: Temp Pulse Resp BP Pulse Ox 97.7 F 60 18 145/82 H 97 09/08/21 12:00 09/08/21 12:00 09/08/21 12:00 09/08/21 12:00 09/08/21 12:00 General: Alert, In no apparent distress, Oriented x3 HEENT: Mucous membr. moist/pink Neck: JVD not distended Respiratory: Clear to auscultation bilaterally, Normal air movement Cardiovascular: No edema, Regular rate/rhythm, Normal S1 S2 Capillary refill: <2 Seconds Gastrointestinal: Normal bowel sounds, Soft and benign, Non-distended, No tenderness Musculoskeletal: No swelling, No tenderness Integumentary: No rashes Neurological: Normal strength at 5/5 x4 extr Laboratory Data at Discharge: WBC 5.70 K/uL (4.3-10.9) D 09/08/21 05:16 Hgb 12.2 g/dL (12.0-15.0) 09/08/21 05:16 Hct 35.7 % (36.0-45.0) L 09/08/21 05:16 Plt Count 286 K/uL (152-406) 09/08/21 05:16 PT 11.9 SECONDS (9.5-12.5) 09/07/21 09:30 INR 1.03 09/07/21 09:30 Sodium 135 mmol/L (136-145) L 09/08/21 05:16 Potassium 3.1 mmol/L (3.5-5.1) L 09/08/21 05:16 BUN 21 mg/dL (7-18) H 09/08/21 05:16 Creatinine 0.98 mg/dL (0.55-1.3) 09/08/21 05:16 Glucose 99 mg/dL (74-106) 09/08/21 05:16 Magnesium 1.9 mg/dL (1.8-2.4) D 09/08/21 05:16 Total Bilirubin 0.6 mg/dL (0.2-1.0) 09/08/21 05:16 AST 44 U/L (15-37) H 09/08/21 05:16 ALT 57 U/L (12-78) 09/08/21 05:16 Alkaline Phosphatase 59 U/L (45-117) 09/08/21 05:16 Lipase 184 U/L (73-393) 09/07/21 13:45 Home Medications: Aspirin [Aspirin EC 81 MG] 81 mg PO DAILY #90 tablet. 01/01/18 Atorvastatin Calcium [Lipitor] 40 mg PO BEDTIME #30 tab 02/20/19 Citalopram [Celexa*] 40 mg PO DAILY 06/08/20 Insulin Detemir [Levemir] 10 units SQ BEDTIME 05/28/21 Insulin Detemir [Levemir] 40 units SQ DAILY 05/28/21 ondansetron HCL [Zofran] 8 mg PO BID PRN 05/28/21 Celecoxib [Celebrex] 100 mg PO DAILY 09/07/21 Ciprofloxacin HCl [Cipro 500 MG Tablet] 500 mg PO BID #10 tab 09/08/21 metroNIDAZOLE [Flagyl] 500 mg PO Q8H #15 tablet 09/08/21 New Medications: Ciprofloxacin HCl [Cipro 500 MG Tablet] 500 mg PO BID #10 tab metroNIDAZOLE [Flagyl] 500 mg PO Q8H #15 tablet Diet: ADA Activity: Ad sunitha Followup: Doug Gold MD [ACTIVE - CAN ADMIT] - OOT,OOT [Primary Care Provider] - 1-2 Weeks
--- NOTE | 2021-09-08 12:52 | EKG ---
Test Date: 2021-09-07 Test Time: 09:31:54 [employer]: SANAZ MEASUREMENT RESULTS: Intervals: Rate: 93 AK: 174 QRSD: 66 QT: 420 QTc: 522 Kell: P: 64 AK: 174 QRS: 80 T: 73 INTERPRETIVE STATEMENTS: Normal sinus rhythm Cannot rule out Anterior infarct, age undetermined Prolonged QT Abnormal ECG Compared to ECG 05/27/2021 21:56:37 No significant changes Electronically Signed On 09-08-21 12:49:55 SAFETY INTERN by Doug Gold
--- NOTE | 2021-09-08 15:55 | P.CNS ---
Date of Consult: 09/08/21 Reason for Consult: CARLOTA Requesting Physician: david dover Chief Complaint: Chest pain, hypotension History of Present Illness: 60F w/ PMHx of Htn, DM2, CVA, GERD, & pancreatitis, who p/w chest pain & dizziness. Reports having intermittent diarrhea. Initial troponin negative. Was hypotensive on presentation but bp improved with IV fluids. Referred to Nephrology for CARLOTA. Renal fxn improved w/ IV fluids. Chest pain resolved t francesca. Allergies sulfamethoxazole [From Bactrim] Allergy (Intermediate, Verified 05/07/20 21:54) Rash trimethoprim [From Bactrim] Allergy (Intermediate, Verified 05/07/20 21:54) Rash Sulfa (Sulfonamide Antibiotics) Allergy (Verified 05/07/20 21:54) Unknown trazodone Allergy (Verified 05/07/20 21:54) Itching Home Medications: Aspirin [Aspirin EC 81 MG] 81 mg PO DAILY #90 tablet. 01/01/18 Atorvastatin Calcium [Lipitor] 40 mg PO BEDTIME #30 tab 02/20/19 Citalopram [Celexa*] 40 mg PO DAILY 06/08/20 Insulin Detemir [Levemir] 10 units SQ BEDTIME 05/28/21 Insulin Detemir [Levemir] 40 units SQ DAILY 05/28/21 ondansetron HCL [Zofran] 8 mg PO BID PRN 05/28/21 Celecoxib [Celebrex] 100 mg PO DAILY 09/07/21 Ciprofloxacin HCl [Cipro 500 MG Tablet] 500 mg PO BID #10 tab 09/08/21 metroNIDAZOLE [Flagyl] 500 mg PO Q8H #15 tablet 09/08/21 - Past Medical/Surgical History Diabetic: Yes -: HTN -: Hyperlipidemia -: GERD -: CVA x2 -: Tobacco abuse -: Diabetes mellitus type 2 insulin-dependent -: renal insufficiency -: hypercholesterolemia -: -: R wrist Sx (metal plate) -: rectal polyps removed -: Left ankle orif -: ectopic Psychosocial/ Personal History: The patient is single. She has 1 child. Retired - Family History Sister Medical History: Lung disease, Diabetes Notes: asthma Mother Medical History: Heart disease, Cancer Father Medical History: Heart disease - Social History Smoking Status: Current every day smoker Alcohol use: Yes CD- Drugs: No Caffeine use: No Place of Residence: Home Review of Systems General: Weakness Eyes: Unremarkable ENT: Unremarkable Respiratory: Unremarkable Cardiovascular: Chest Pain, Other (dizziness) Gastrointestinal: Unremarkable Genitourinary: Unremarkable Musculoskeletal: Unremarkable Integumentary: Unremarkable Neurological: Unremarkable Lymphatics: Unremarkable Physical Examination Temp Pulse Resp BP Pulse Ox 97.7 F 60 18 145/82 H 97 09/08/21 12:00 09/08/21 12:00 09/08/21 12:00 09/08/21 12:00 09/08/21 12:00 General: In no apparent distress HEENT: Atraumatic, Normocephalic Neck: Supple, JVD not distended Respiratory: Other (symmetric chest expansion) Cardiovascular: No rubs, No murmurs Gastrointestinal: Soft and benign, No guarding Musculoskeletal: No clubbing Integumentary: No warmth Neurological: Normal speech, Normal tone Lymphatics: No axilla or inguinal lymphadenopathy Urinary: Other (no bladder distention) External genitalia: Deferred Rectal: Deferred Conclusions/Impression: # CARLOTA 2/2 prerenal state Reports hx of intermittent diarrhea SCr 1.6 on adm. Received IV fluids. SCr improved to 1.0 Advised on adeq po hydration # Hypokalemia KCL po repletion received today # Hypotension BP improved w/ IV fluids # Chest pain ACS ruled out, seen by cardiology Dr. Gold # DM2 Mngt per primary team # Dispo May dc today from renal standpoint
--- NOTE | 2021-09-09 11:14 | CON ---
Date of Consultation: 09/08/[address] Fernandes on 09/07/2021. I saw the patient on 09/08/2021. Reason For Consultation: Atypical chest pain and hypotension. History Of Present Illness: Ms. Botello is 60. No previous cardiac history. Has a history of hypertens ion, dyslipidemia, alcohol abuse, tobacco abuse, diabetes, and pancreatitis and history of CVA x2. H ad some midepigastric pain, received nitroglycerin in the ambulance and her blood pressure dropped. Her pain is midepigastric with some nausea and diaphoresis, but no shortness of breath. Denied PND, orthopnea, pedal edema, palpitation, or syncope. Allergies: SHE IS ALLERGIC TO SULFA AND TRAZODONE. Review of Systems: Negative. Social History: Negative. Family History: Noncontributory. Medications: Listed by Dr. Fernandes. Physical Examination: Vital Signs: Stable, afebrile. HEENT: Negative. Neck: Supple with no bruit. Chest: Clear. Cardiac: Normal. Abdomen: Obese. Extremities: Revealed no clubbing, cyanosis, or edema. Diagnostic Data: Her potassium was 2.7, magnesium was 1.3, creatinine 1.6. EKG is nonspecific. Noelle st x-ray is negative. CT of the abdomen was negative. Impression And Plan: I think her chest pain is gastric in nature. I think she has had diarrhea betw een that and between alcohol use. Her potassium and magnesium and creatinine are abnormal. She need s to have a potassium supplemented and magnesium supplemented. She needs to be hydrated and I think she can go home and have an echocardiogram and a stress test as an outpatient. KIM/RAJINDER Voice ID: [id number] Report ID: [id number]
[2021-09-09 12:02] LABS: C.diff Antigen/Toxin Ag neg : Tox neg (NEG : NEG)
--- NOTE | 2021-09-10 07:03 | CON ---
Date of Consultation: 09/07/2021 Chief Complaint: Acute kidney injury. History Of Present Illness: The patient is a 60-year-old woman with history of hypertension, hyperlipidemia, diabetes mellitus. She presented to the hospital because of chest pain, which was left sided and lasted at least for 2 hours. She had some relief with nitroglycerin and she was rushed to emergency room and is undergoing workup for acute coronary syndrome. Nephrology is consulted for acute kidney injury. The patient previously was admitted for chest pain in May 2021 and at that time, she had acute kidney injury. The patient presented to the emergency room because of dizziness, chest pain. She described chest pain as squeezing in the left chest area radiating down to her left arm. It was associated with some nausea, dizziness, and generalized weakness. She had recent history of intermittent dizziness and episodes of nausea and vomiting. She was also complaining of abdominal cramps. Denies diarrhea, melena, or hematemesis. EKG showed nonspecific ST changes. Chest x- ray did not show congestive heart failure. The troponin level was within normal range. The patient is admitted to the hospital for further workup. She was also found to have hypotension. On presentation blood pressure was 70/30. The patient was taking multiple medications at home. For blood pressure, she was taking amlodipine, carvedilol, and lisinopril. She is on medication for hyperlipidemia including fenofibrate and atorvastatin. Past Medical History: Hypertension, hyperlipidemia, GERD, CVA x2, tobacco use, diabetes mellitus on insulin, renal insufficiency, acute kidney injury, chronic kidney disease stage 2, C section, rectal polyps removed, left ankle ORIF, and ectopic . Family History: Sister with lung disease, diabetes, asthma. Mother with heart disease and cancer disease. Father with heart disease. Social History: The patient is active smoker. Denies alcohol and drugs. Review of Systems: General: Denies fever or chills. Eyes: Denies vision changes. Ears, Nose, Mouth, and Throat: Denies sore throat or earache. Respiratory: Had shortness of breath associated with chest pain and dizziness. Denies hemoptysis. GI: Has nausea, vomiting. Denies melena or hematemesis. : Denies dysuria or hematuria. Musculoskeletal: Complaining of generalized weakness. Denies muscle cramps or soreness. All other systems reviewed and all are negative. Physical Examination: General: The patient is alert and oriented x3. Eyes: Anicteric sclerae. EOMI. Ears, Nose, Mouth And Throat: Oral mucosa moist. No pallor. Neck: Supple. No bruits. Lungs: Diminished breath sounds at bases. Heart: S1, S2. There is a systolic murmur at left lower sternal border. Abdomen: Soft, benign, nontender. Extremities: Minimal edema in both legs. Neurologic: Moving extremities. Cranial nerves intact. Psychiatric: Alert and oriented x3. Laboratory Data: Potassium 2.7, sodium 134, creatinine 1.6, glucose 175, magnesium 1.3, AP 71, total bilirubin 1.2. Impression And Plan: 1. Acute kidney injury due to prerenal azotemia. The patient on presentation had low blood pressure. Continue to hold blood pressure medication and advance IV fluids as needed. The patient has history of diabetes mellitus, hold metformin due to the fact that the patient has acute kidney injury. 2. Electrolyte abnormalities. Hypokalemia and hypomagnesemia. Recommend to avoid HCTZ in view of electrolyte abnormalities including hyponatremia. The patient will have treatment with magnesium IV and potassium IV. Recommend to monitor electrolytes. 3. Acute kidney injury. Ultrasound will be done to assess kidney size and echotexture to screen for any evidence of chronic kidney disease. 4. Diabetes mellitus. Monitor proteinuria and check UA to rule out any evidence of active urinary sediment. VINICIUS/RAJINDER Voice ID: [id number] Report ID: [id number] OSCAR
== END 2021-09-08 16:44 | disposition home or self-care (01) ==
LOC: ER 09:28 → ERHOLD 12:29 → 2ND 14:31
PROVIDERS: ADMIT Hospitalist; ATTEND Internal Medicine
DX: N17.9 Acute kidney failure, unspecified (principal); I95.9 Hypotension, unspecified; I12.9 Hypertensive chronic kidney disease with stage 1 through stage 4 chronic kidney disease, or unspecified chronic kidney disease; E11.22 Type 2 diabetes mellitus with diabetic chronic kidney disease; N18.2 Chronic kidney disease, stage 2 (mild); R07.9 Chest pain, unspecified; R19.7 Diarrhea, unspecified; E87.6 Hypokalemia; E87.1 Hypo-osmolality and hyponatremia; E83.42 Hypomagnesemia; K85.90 Acute pancreatitis without necrosis or infection, unspecified; K21.9 Gastro-esophageal reflux disease without esophagitis; E78.5 Hyperlipidemia, unspecified; E78.00 Pure hypercholesterolemia, unspecified; R68.81 Early satiety; R11.10 Vomiting, unspecified; R79.89 Other specified abnormal findings of blood chemistry; F17.210 Nicotine dependence, cigarettes, uncomplicated; F10.21 Alcohol dependence, in remission; Z20.822 Contact with and (suspected) exposure to COVID-19; Z86.73 Personal history of transient ischemic attack (TIA), and cerebral infarction without residual deficits; Z87.19 Personal history of other diseases of the digestive system; Z79.4 Long term (current) use of insulin; Z79.82 Long term (current) use of aspirin; Z79.899 Other long term (current) drug therapy; Z88.2 Allergy status to sulfonamides; Z88.3 Allergy status to other anti-infective agents; Z88.8 Allergy status to other drugs, medicaments and biological substances; Z83.3 Family history of diabetes mellitus; Z82.49 Family history of ischemic heart disease and other diseases of the circulatory system; Z82.5 Family history of asthma and other chronic lower respiratory diseases; Z80.9 Family history of malignant neoplasm, unspecified
CPT/HCPCS: 36415; 71045; 74176; 80048; 80053; 80076; 82947; 83690; 83735; 83880; 84439; 84443; 84484; 85025; 85610; 87324; 87449; 90471; 93005; 94760; 96361; 96365; 99285; G0378; J1650; J3475; J7030; U0003

== ENCOUNTER 2022-03-28 19:41 | Inpatient (IN) | payer SELFPAY ==
--- OUTSIDE RECORDS SUMMARY | 2022-03-28 19:56 | XMS REPORT | Continuity of Care Document ---
:1960 Author Organization [facility] t Address [address] [place] [address] Care Team Providers Name Role Phone Srinath Eli Primary Care Physician [phone] RICH CHIANG Attending Clinician Unavailable Aditya Frost Attending Clinician RICH CHIANG Admitting Clinician Unavailable Aditya Frost Admitting Clinician Problems Condition Condition Condition Status Onset Resolution Last Treating Co mments Source Name Details Category Date Date Treatment Clinician Date Type 2 Type [address] [facility] mellitus mellitus 00:00: Medica l 00 [place] Hypokalemi Hypokalemi Disease Active [address] [facility] Medical 00 [place] Hypomagnes Hypomagnes Disease Active [facility] emia emia [facility]08 [facility] Alcohol Alcohol Disease Active 2018- [facility] abuse abuse [facility]08 [facility] Medical 00 [place] Essential Essential Disease Active [facility] hypertensi hypertensi 12-08 [facility]en kes on on 00:00: Medical 00 Center Stroke Stroke Disease Active 2019- [facility] Status Status Disease Active 2019- [facility] post post [facility]07 [facility] administra administra 00:00: Me dical tion of tion of 00 Center tPA (rtPA) tPA (rtPA) in a in a different different facility facility within the within the last 24 last 24 hours hours prior to prior to admission admission to [facility] to current facility facility PANCREATIT PANCREATI Diagnosis Active 2014-11-05 Memoria IS TIS Active 10-30 21:50:00 l 10/30/2014 03:39: Sebastian balbuena [address] Diverticul Diverticu Problem Resolve 2014 Nikolai itis litis d 04:20:14 l (disorder) (disorder) He rmann Resolved Problem 2014 [facility] Hypertensi Hypertens Problem Resolve 2014 Nikolai ve alejandro d 04:20:14 l disorder, disorder, Herm debbie systemic systemic arterial arterial (disorder) (disorder) Resolved Problem 2014 [facility] CHRONIC CHRONIC Diagnosis Active 2014[facility]11-05 [facility] PANCREATIT PANCREATIT 21:50:00 l IS IS Active Tob[facility] 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 - [facility] without without St complicati complicati [facility] History of History of Problem Active C ommon hypokalemi hypokalemi Sp timo a a [facility] Pain in Pain in Problem Active Common left knee left knee Spir it - [facility] Vitamin D Vitamin D Problem Active Com mon deficiency deficiency Sp timo [facility] Uncontroll Uncontroll Problem Active C ommon ed type 2 ed type 2 Spir it diabetes diabetes - [facility]I mellitus mellitus St without without [facility] complicati complicati Me dical on, on, Center without without long-term long-term current current use of use of insulin insulin Other Other Problem Active Common chronic chronic Spirit pain pain - [facility] Hyperlipid Hyperlipid Problem Active C ommon emia emia [facility] Hypothyroi Hypothyroi Problem Active C ommon dism dism [facility] Dizziness Dizziness Problem Active Com mon [facility] Hypertensi Hypertensi Problem Active C ommon on on [facility] Depression Depression Problem Active C ommon [facility] Allergic Allergic Problem Active Commo n rhinitis, rhinitis, Spir it seasonal seasonal [facility] Allergies, Adverse Reactions, Alerts Allergy Allergy Status Severity Reaction(s) Onset Inactive Treating Comm ents Source Name Type Date Date Clinician Mesna - Propensi Active 2022-0 Intraven ty to 5-24 ous adverse 00:00: reaction 00 to drug Bactrim Propensi Active - Oral ty to 3-15 adverse 00:00: reaction 00 to drug Bactrim Propensi Active ty to 1-22 adverse 00:00: reaction 00 to drug Sulfamet Propensi Active Rash [facility] hoxazole ty to 12-07 [facility] adverse 00:00: Medical oprim reaction 00 Center s Sulfa Adverse Active Info Not Common Reaction Available Spiri t - [facility] Bactrim Bactrim Active [facility]oria l [place] Social History Social Habit Start Date Stop Date Quantity Comments Source History SDTX [facility] Alcohol Binge Medical [facility] ter History [facility] Alcohol Frequency Medical Center History SDTX [facility] Alcohol Std Drinks Medica Center History [facility] 2018-12-07 2018-12-07 drinks [address] [facility] Alcohol Comment 00:00:00 00:00:00 run, last drank [facility] 12/06/18 Tobacco Comment 2018-12-07 2018-12-07 1 pack every [address] [facility] 00:00:00 00:00:00 for the last 10 Medical C enter years Cigarettes smoked 2018-12-07 2018-12-[address] [facility] current (pack per 00:00:00 00:00:00 [facility] day) - Reported Cigarette 2018-12-07 2018-12-[address] [facility] pack-years 00:00:00 00:00:00 [facility] Tobacco use and 2018-12-07 2018-12-[address] Carmen kes exposure 00:00:00 00:00:00 [facility] Alcohol intake 2018-12-07 2018-12-07 Current drinker of [facility] 00:00:00 00:00:00 alcohol (finding) [facility] Social History 2014-10-30 2014-10-30 [facility] 10:31:19 10:31:19 Tobias Sex Assigned At 1960 [address] [facility] [address] Carmen kes 00:00:00 00:00:00 [facility] Smoking Status Start Date Stop Date Source Current some day smoker 2018-12-07 00:00:00 [facility] Medications Ordered Filled Start Stop Current Ordering Indication Dosage Frequency Signature Comments Components Source Medication Medication Date Date Medication? Clinician (SIG) Name Name Dose 2021-0 No Unknown 4-27 00:00: 00 Dose 2022-0 No Unknown 3-15 00:00: 00 Dose 2022-0 No Unknown 3-15 00:00: 00 Dose 2022-0 No Unknown 3-15 00:00: 00 Dose 2022-0 No Unknown 3-15 00:00: 00 Dose 2022-0 No Unknown 3-15 00:00: 00 Dose 2022-0 No Unknown 3-15 00:00: 00 Dose 2022-0 No Unknown 3-15 00:00: 00 Dose 2022-0 No Unknown 3-15 00:00: 00 Dose 2022-0 No Unknown 3-15 00:00: 00 Dose 2022-0 No Unknown 3-15 00:00: 00 Dose 2022-0 No Unknown 3-15 00:00: 00 Dose 2022-0 No Unknown 3-15 00:00: 00 Dose 2022-0 No Unknown 3-15 00:00: 00 Dose 2022-0 No Unknown 3-15 00:00: 00 Dose 2022-0 No Unknown 3-15 00:00: 00 Dose 2022-0 No Unknown 3-15 00:00: 00 Dose 2022-0 No Unknown 3-15 00:00: 00 Dose 2022-0 No Unknown 3-15 00:00: 00 Dose 2022-0 No Unknown 1-24 00:00: 00 Dose 2022-0 No Unknown 1-22 00:00: 00 Dose 2022-0 No Unknown 1-22 00:00: 00 Dose 2022-0 No Unknown 1-22 00:00: 00 Dose 2022-0 No Unknown 1-22 00:00: 00 Dose 2022-0 No Unknown 1-22 00:00: 00 Dose 2022-0 No Unknown 1-22 00:00: 00 Dose 2022-0 No Unknown 1-22 00:00: 00 Dose 2022-0 No Unknown 1-22 00:00: 00 cetirizine 1-0 No 1mg 10 mg 9-09 tablet 00:00: 00 atorvastati 2020-0 No 1mg n 40 mg 9-09 tablet 00:00: 00 ibuprofen 2020-0 No 1mg 600 mg 8-31 tablet 00:00: 00 Levemir 2021-0 No 10(3 FlexTouch 8-12 mL) U-100 00:00: Insulin 100 00 unit/mL (3 mL) subcutaneou s pen amlodipine 2021-0 No 1mg 10 mg 8-12 tablet 00:00: 00 hydrochloro 2021-0 No 1mg thiazide 25 8-12 mg tablet 00:00: 00 fenofibrate 2021-0 No 1mg nanocrystal 8-12 lized 145 00:00: mg tablet 00 citalopram 2021-0 No 1mg 40 mg 8-12 tablet 00:00: 00 cetirizine 2021-0 No 1mg 10 mg 8-12 tablet 00:00: 00 ondansetron 2021-0 No 1mg 8 mg 8-12 disintegrat 00:00: ing tablet 00 carvedilol 2021-0 No 1mg 12.5 mg 8-12 tablet 00:00: 00 omeprazole 2021-0 No 1mg 40 mg 8-12 capsule,del 00:00: ayed 00 release ondansetron 1-0 No 1mg 8 mg 6-08 disintegrat 00:00: ing tablet 00 amlodipine 2021-0 No 1mg 10 mg 5-03 tablet 00:00: 00 hydrochloro 2021-0 No 1mg thiazide 25 5-03 mg tablet 00:00: 00 carvedilol 2021-0 No 1mg 12.5 mg 5-03 tablet 00:00: 00 atorvastati 2021-0 No 1mg n 40 mg 5-03 tablet 00:00: 00 Levemir 2021-0 No 30(3 FlexTouch 4-27 mL) U-100 00:00: Insulin 100 00 unit/mL (3 mL) subcutaneou s pen Levemir 2021-0 No 10(3 FlexTouch 4-27 mL) U-100 00:00: Insulin 100 00 unit/mL (3 mL) subcutaneou s pen citalopram 1-0 No 1mg 40 mg 4-27 tablet 00:00: 00 fenofibrate 2021-0 No 1mg nanocrystal 4-27 lized 145 00:00: mg tablet 00 ondansetron 1-0 No 1mg 8 mg 4-27 disintegrat 00:00: ing tablet 00 omeprazole 2021-0 No 1mg 40 mg 4-27 capsule,del 00:00: ayed 00 release omeprazole 2020-0 No 1mg 10 mg 4-27 capsule,del 00:00: ayed 00 release Flagyl 500 2020-0 No 1mg mg tablet 3-05 00:00: 00 Levemir 2019-1 No (3 mL) FlexTouch 2-29 U-100 00:00: Insulin 100 00 unit/mL (3 mL) subcutaneou s pen fenofibrate 2019-1 No 1mg nanocrystal 2-29 lized 145 00:00: mg tablet 00 hydrochloro 2019-1 No 1mg thiazide 25 2-29 mg tablet 00:00: 00 amlodipine 2019-1 No 1mg 10 mg 2-29 tablet 00:00: 00 citalopram 2019-1 No 1mg 40 mg 2-29 tablet 00:00: 00 carvedilol 2019-1 No 1mg 12.5 mg 2-29 tablet 00:00: 00 glimepiride 2019-1 No 1mg 4 mg tablet 2-29 00:00: 00 methocarbam 2019-1 No 1mg ol 750 mg 2-29 tablet 00:00: 00 doxepin 6 2019-1 No 1mg mg tablet 2- 00:00: 00 atorvastati 2019-1 No 1mg n 40 mg 2-29 tablet 00:00: 00 omeprazole 2019-1 No 1mg 40 mg 2-29 capsule,del 00:00: ayed 00 release ketorolac 2019-1 No 1mg 10 mg 2-15 tablet 00:00: 00 gabapentin 2019-1 No 1mg 400 mg 2-15 capsule 00:00: 00 doxepin 6 2019-1 No 1mg mg tablet 2-03 00:00: 00 fenofibrate 2019-1 No 1mg nanocrystal 1-05 lized 145 00:00: mg tablet 00 Levemir 2019-1 No (3 mL) FlexTouch 1-03 U-100 00:00: Insulin 100 00 unit/mL (3 mL) subcutaneou s pen citalopram 2019-1 No 1mg 40 mg 1-03 tablet 00:00: 00 amlodipine 2019-1 No 1mg 10 mg 1-03 tablet 00:00: 00 hydrochloro 2020-1 No 1mg thiazide 25 1-03 mg tablet 00:00: 00 metformin 2020-1 No 2mg ER 750 mg 1-03 tablet,exte 00:00: nded 00 release 24 hr carvedilol 2020-1 No 1mg 12.5 mg 1-03 tablet 00:00: 00 glimepiride 2019-1 No 1mg 4 mg tablet 1- 00:00: 00 methocarbam 2020-1 No 1mg ol 750 mg 1-03 tablet 00:00: 00 doxepin 6 2019-1 No 1mg mg tablet 07-06 00:00: 00 atorvastati 2020-1 No 1mg n 40 mg 1-03 tablet 00:00: 00 omeprazole 2019-1 No 1mg 40 mg 1-03 capsule,del 00:00: ayed 00 release carvedilol 2019-1 No 1mg 12.5 mg 0-22 tablet 00:00: 00 trazodone 2019-1 No 12mg 100 mg 0-22 tablet 00:00: 00 carvedilol 2020-0 No 1mg 12.5 mg 9-11 tablet 00:00: 00 Levemir 2020-0 No (3 mL) FlexTouch 8-25 U-100 00:00: Insulin 100 00 unit/mL (3 mL) subcutaneou s pen Levemir 2020-0 No (3 mL) FlexTouch 8-25 U-100 00:00: Insulin 100 00 unit/mL (3 mL) subcutaneou s pen metformin 2020-0 No 2mg ER 750 mg 8-25 tablet,exte 00:00: nded 00 release 24 hr hydrochloro 2020-0 No 1mg thiazide 25 8-25 mg tablet 00:00: 00 citalopram 2020-0 No 1mg 20 mg 8-25 tablet 00:00: 00 amlodipine 2020-0 No 1mg 10 mg 8-25 tablet 00:00: 00 glimepiride 2020-0 No 1mg 4 mg tablet 8-25 00:00: 00 methocarbam 2020-0 No 1mg ol 750 mg 8-25 tablet 00:00: 00 trazodone 2020-0 No 12mg 100 mg 8-25 tablet 00:00: 00 atorvastati 2020-0 No 1mg n 40 mg 8-25 tablet 00:00: 00 omeprazole 2020-0 No 1mg 40 mg 8-25 capsule,del 00:00: ayed 00 release hydroxyzine 2020-0 No 1mg pamoate 25 8-25 mg capsule 00:00: 00 Levemir 2020-0 No (3 mL) FlexTouch 7-21 U-100 00:00: Insulin 100 00 unit/mL (3 mL) subcutaneou s pen trazodone 2020-0 No 12mg 100 mg 7-21 tablet 00:00: 00 doxycycline 2020-0 No 1mg monohydrate 7-21 100 mg 00:00: capsule 00 hydroxyzine 2020-0 No 1mg pamoate 25 7-21 mg capsule 00:00: 00 Levemir 2020-0 No (3 mL) FlexTouch 7-20 U-100 00:00: Insulin 100 00 unit/mL (3 mL) subcutaneou s pen methocarbam 2020-0 No 1mg ol 750 mg 6-24 tablet 00:00: 00 doxycycline 2020-0 No 1mg monohydrate 6-24 100 mg 00:00: capsule 00 metformin 2020-0 No 2mg ER 750 mg 5-22 tablet,exte 00:00: nded 00 release 24 hr Levemir 2020-0 No (3 mL) FlexTouch 5-20 U-100 00:00: Insulin 100 00 unit/mL (3 mL) subcutaneou s pen Levemir 2020-0 No (3 mL) FlexTouch 5-20 U-100 00:00: Insulin 100 00 unit/mL (3 mL) subcutaneou s pen triamcinolo 2020-0 No 1% ne 5-20 acetonide 00:00: 0.1 % 00 topical ointment hydrochloro 2020-0 No 1mg thiazide 25 5-20 mg tablet 00:00: 00 citalopram 2020-0 No 1mg 20 mg 5-20 tablet 00:00: 00 amlodipine 2020-0 No 1mg 10 mg 5-20 tablet 00:00: 00 glimepiride 2020-0 No 1mg 4 mg tablet 5-20 00:00: 00 carvedilol 2020-0 No 1mg 12.5 mg 5-20 tablet 00:00: 00 mirtazapine 2020-0 No mg 30 mg 5-20 tablet 00:00: 00 atorvastati 2020-0 No 1mg n 40 mg 5-20 tablet 00:00: 00 methocarbam 2020-0 No 1mg ol 750 mg 5-20 tablet 00:00: 00 omeprazole 2020-0 No 1mg 40 mg 5-20 capsule,del 00:00: ayed 00 release doxycycline 2020-0 No 1mg monohydrate 5-20 100 mg 00:00: capsule 00 Levemir 2020-0 No (3 mL) FlexTouch 4-22 U-100 00:00: Insulin 100 00 unit/mL (3 mL) subcutaneou s pen diclofenac 2020-0 No 1mg sodium 75 4-21 mg 00:00: tablet,idalmis 00 yed release cyclobenzap 2020-0 No 1mg rine 10 mg 4-21 tablet 00:00: 00 Levemir 2020-0 No (3 mL) FlexTouch 3-24 U-100 00:00: Insulin 100 00 unit/mL (3 mL) subcutaneou s pen amoxicillin 2020-0 No 1mg 875 3-24 mg-potassiu 00:00: m 00 clavulanate 125 mg tablet Levemir 2020-0 No (3 mL) FlexTouch 2-26 U-100 00:00: Insulin 100 00 unit/mL (3 mL) subcutaneou s pen citalopram 2020-0 No 1mg 20 mg 2-26 tablet 00:00: 00 metformin 2020-0 No 2mg ER 750 mg 2-26 tablet,exte 00:00: nded 00 release 24 hr amlodipine 2020-0 No 1mg 10 mg 2-26 tablet 00:00: 00 hydrochloro 2020-0 No 1mg thiazide 25 2-26 mg tablet 00:00: 00 glimepiride 2020-0 No 1mg 4 mg tablet 2-26 00:00: 00 carvedilol 2020-0 No 1mg 12.5 mg 2-26 tablet 00:00: 00 mirtazapine 2020-0 No mg 30 mg 2-26 tablet 00:00: 00 atorvastati 2020-0 No 1mg n 40 mg 2-26 tablet 00:00: 00 omeprazole 2020-0 No 1mg 40 mg 2-26 capsule,del 00:00: ayed 00 release Flagyl 500 2020-0 No 1mg mg tablet 2-07 00:00: 00 Levemir 2019-0 No (3 mL) FlexTouch 1-29 U-100 00:00: Insulin 100 00 unit/mL (3 mL) subcutaneou s pen Levemir 2019-0 No (3 mL) FlexTouch 1-29 U-100 00:00: Insulin 100 00 unit/mL (3 mL) subcutaneou s pen citalopram 2019-0 No 1mg 20 mg 1-29 tablet 00:00: 00 glimepiride 2019-0 No 1mg 4 mg tablet 29 00:00: 00 metformin 2018- No 1mg ER 750 mg 2-31 tablet,exte 00:00: nded 00 release 24 hr metformin 2018- No 2mg ER 750 mg 2-31 tablet,exte 00:00: nded 00 release 24 hr amlodipine 2018- No 1mg 10 mg 2-10 tablet 00:00: 00 glimepiride 2018- No 1mg 4 mg tablet 2-10 00:00: 00 metformin 2018- No 1mg ER 500 mg 2-10 tablet,exte 00:00: nded 00 release 24 hr carvedilol 2018- No 1mg 12.5 mg 2-10 tablet 00:00: 00 metformin 2018-1 No 15mg ER 500 mg 2-10 tablet,exte 00:00: nded 00 release 24 hr mirtazapine 2018- No mg 30 mg 2-10 tablet 00:00: 00 atorvastati 2018- No 1mg n 40 mg 2-10 tablet 00:00: 00 omeprazole 2018-1 No 1mg 40 mg 2-10 capsule,del 00:00: ayed 00 release amlodipine 2018- No 1mg 10 mg 0-01 tablet 00:00: 00 glimepiride 2018- No 1mg 1 mg tablet 0-01 00:00: 00 carvedilol 2018-1 No 1mg 12.5 mg 0-01 tablet 00:00: 00 mirtazapine 2018-1 No mg 30 mg 0-01 tablet 00:00: 00 potassium 2019-0 No 1% (40 gluconate 6-19 mg/mL) 550 mg (90 00:00: mg) tablet 00 mirtazapine 2018-0 No mg 30 mg 6-18 tablet 00:00: 00 ranitidine 2018-0 Yes 150mg Q.5D Take [address] (ZANTAC) 6-10 mg by [facility] 150 MG 15:47: mouth 2 Medical tablet 46 (two) Center times daily. omeprazole 2019-0 Yes 40mg QD Take [address] (PRILOSEC) 6-10 by mouth [facility] 40 MG 15:47: daily. Medical capsule 46 Center potassium 2019-0 Yes Take by [facility] gluconate 6-10 [facility]. [facility] 550 mg (90 15:47: Medical mg) Tab 46 Center ranitidine 2018-0 Yes 150mg Q.5D Take [address] (ZANTAC) 6-10 mg by [facility] 150 MG 15:47: mouth 2 Medical tablet 46 (two) Center times daily. omeprazole 2019-0 Yes 40mg QD Take [address] (PRILOSEC) 6-10 by mouth [facility] 40 MG 15:47: daily. Medical capsule 46 Center potassium 0 Yes Take by [facility] gluconate 6-10 mouth. [facility] 550 mg (90 15:47: Medical mg) Tab 46 Center carvedilol 0 Yes hypertensio 12.5mg Take [address] (COREG) 6-10 n tablet [facility] 12.5 MG 00:00: (12.5 mg Medica l tablet 00 total) by Center mouth 2 (two) times daily with breakfast and dinner. amLODIPine 0 Yes 10mg QD Take 1 [facility] (NORVASC) 6-10 tablet (10 Luke s 10 MG 00:00: mg total) Medical tablet 00 by mouth Center daily. atorvastati 2019-0 Yes 40mg QD Take [address] [facility] (LIPITOR) 6-10 tablet (40 Carmen kes 40 MG 00:00: mg total) Medical tablet 00 by mouth Center nightly. glimepiride 2019-0 Yes 1mg Take [address] (AMARYL) 1 6-10 tablet (1 Luke s MG tablet 00:00: mg total) Med ical 00 by mouth Center every morning before breakfast. carvedilol 2019-0 Yes hypertensio 12.5mg Take [address] (COREG) 6-10 n tablet [facility] 12.5 MG 00:00: (12.5 mg Medica l tablet 00 total) by Center mouth 2 (two) times daily with breakfast and dinner. amLODIPine 2019-0 Yes 10mg QD Take 1 [facility] (NORVASC) 6-10 tablet (10 Luke s 10 MG 00:00: mg total) Medical tablet 00 by mouth Center daily. atorvastati 2019-0 Yes 40mg QD Take [address] [facility] (LIPITOR) 6-10 tablet (40 Carmen kes 40 MG 00:00: mg total) Medical tablet 00 by mouth Center nightly. glimepiride 2019-0 Yes 1mg Take [address] (AMARYL) 1 6-10 tablet (1 Luke s MG tablet 00:00: mg total) Med ical 00 by mouth Center every morning before breakfast. ondansetron 2019-0 No 1mg HCl 4 mg 4-01 tablet 00:00: 00 amlodipine 2019-0 No 1mg 10 mg 3-21 tablet 00:00: 00 hydrochloro 2019-0 No 1mg thiazide 3-21 12.5 mg 00:00: tablet 00 glimepiride 2019-0 No 1mg 1 mg tablet 3-21 00:00: 00 ranitidine 2019-0 No 1mg 150 mg 3-21 tablet 00:00: 00 carvedilol 2019-0 No 1mg 12.5 mg 3-21 tablet 00:00: 00 simvastatin 2018-0 No 1mg 20 mg 8-09 tablet 00:00: 00 nicotine 21 2018-0 No 1mg/24 mg/24 hr 8-07 hr daily 00:00: transdermal 00 patch nicotine 21 2018-0 No 1mg/24 mg/24 hr 8- hr daily 00:00: transdermal 00 patch pantoprazol 2018-0 No 1mg e 40 mg - tablet,idalmis 00:00: yed release 00 glimepiride 2018-0 No 1mg 1 mg tablet 02-07 00:00: 00 Aspirin Low 2018-0 No 1mg Dose 81 mg - tablet,idalmis 00:00: yed release 00 glimepiride 2018-0 No 1mg 1 mg tablet 02-07 00:00: 00 pantoprazol 2018-0 No 1mg e 40 mg 02-07 tablet,idalmis 00:00: yed release 00 carvedilol 2018-0 No 1mg 12.5 mg 8- tablet 00:00: 00 amlodipine 2018-0 No 1mg 5 mg tablet 02-07 00:00: 00 amlodipine 2018-0 No 1mg 5 mg tablet 02-07 00:00: 00 carvedilol 2018-0 No 1mg 12.5 mg 8-07 tablet 00:00: 00 Metformin Metformin 2018-0 Yes Nancy 1 tablet Common HCl HCl 4-27 Millender with a Spirit 00:00: meal - [facility] 00 [facility] prednisone 2017-0 No 1mg 20 mg 5-11 tablet 00:00: 00 omeprazole 2017-0 No 1mg 20 mg 5-11 tablet,idalmis 00:00: yed release 00 Carafate 2017-0 No 10mg/mL 100 mg/mL 5-11 oral 00:00: suspension 00 clonidine 2017-0 No 1mg HCl 0.1 mg 3-24 tablet 00:00: 00 doxazosin 1 2017-0 No 1mg mg tablet 3-24 00:00: 00 hydrochloro 2017-0 No 1mg thiazide 3-24 12.5 mg 00:00: tablet 00 lisinopril 2017-0 No 1mg 20 mg 3-24 tablet 00:00: 00 carvedilol 2017-0 No 1mg 6.25 mg 3-24 tablet 00:00: 00 metformin 2017-0 No 1mg 1,000 mg 3-24 tablet 00:00: 00 simvastatin 2017-0 No 1mg 20 mg 3-24 tablet 00:00: 00 levothyroxi 2017-0 No 1mcg ne 25 mcg 3-24 tablet 00:00: 00 hydrochloro 2017-0 No 1mg thiazide 2-14 12.5 mg 00:00: tablet 00 doxazosin 1 2017-0 No 1mg mg tablet 2-14 00:00: 00 metformin 2017-0 No 1mg 1,000 mg 2-14 tablet 00:00: 00 carvedilol 2017-0 No 1mg 6.25 mg 2-14 tablet 00:00: 00 lisinopril 2017-0 No 1mg 20 mg 2-14 tablet 00:00: 00 simvastatin 2017-0 No 1mg 20 mg 2-14 tablet 00:00: 00 levothyroxi 2017-0 No 1mcg ne 25 mcg 2-14 tablet 00:00: 00 diclofenac 2016-1 No 1mg sodium 75 2-21 mg 00:00: tablet,idalmis 00 yed release hydrochloro 2016-0 No 1mg thiazide 9-20 12.5 mg 00:00: tablet 00 doxazosin 1 2016-0 No 1mg mg tablet 9-20 00:00: 00 metformin 2016-0 No 1mg 1,000 mg 9-20 tablet 00:00: 00 carvedilol 2016-0 No 1mg 6.25 mg 9-20 tablet 00:00: 00 lisinopril 2016-0 No 1mg 20 mg 9-20 tablet 00:00: 00 simvastatin 2016-0 No 1mg 20 mg 9-20 tablet 00:00: 00 levothyroxi 2016-0 No 1mcg ne 25 mcg 9-20 tablet 00:00: 00 levothyroxi 2016-0 No 1mcg ne 25 mcg 9-20 tablet 00:00: 00 Cipro 250 2016-0 No 1mg mg tablet 628 00:00: 00 doxazosin 1 2016-0 No 1mg mg tablet 6-08 00:00: 00 lisinopril 2016-0 No 1mg 20 mg 6-08 tablet 00:00: 00 carvedilol 2016-0 No 1mg 6.25 mg 6-08 tablet 00:00: 00 levothyroxi 2016-0 No 1mcg ne 25 mcg 6-08 tablet 00:00: 00 pravastatin 2016-0 No 1mg 20 mg 5-23 tablet 00:00: 00 amlodipine 2016-0 No 1mg 10 mg 5-23 tablet 00:00: 00 doxazosin 2 2016-0 No 1mg mg tablet 5-23 00:00: 00 levothyroxi 2016-0 No 1mcg ne 25 mcg 5-23 tablet 00:00: 00 hydrochloro 2016-0 No 1mg thiazide 5-20 12.5 mg 00:00: tablet 00 Cipro 250 2016-0 No 1mg mg tablet 5-20 00:00: 00 ondansetron 2016-0 No 1mg HCl 8 mg 5-20 tablet 00:00: 00 carvedilol 2016-0 No 1mg 12.5 mg 4-21 tablet 00:00: 00 metformin 2016-0 No 1mg 1,000 mg 4-21 tablet 00:00: 00 lisinopril 2016-0 No 1mg 20 mg 4-21 tablet 00:00: 00 simvastatin 2016-0 No 1mg 20 mg 4-21 tablet 00:00: 00 cyclobenzap 2016-0 No 1mg rine 5 mg 4-21 tablet 00:00: 00 Vitamin D2 No 1unit 50,000 unit 2-15 capsule 00:00: 00 amoxicillin No 1mg 500 mg 2-12 tablet 00:00: 00 carvedilol 2014-07 No 1mg 12.5 mg 2-10 tablet 00:00: 00 lisinopril 2014-07 No 1mg 20 mg 2-10 tablet 00:00: 00 metformin 2014-07 No 1mg 1,000 mg 2-10 tablet 00:00: 00 simvastatin 2014-07 No 1mg 20 mg 2-10 tablet 00:00: 00 lisinopril 2014-07 No 1mg 20 mg 1-14 tablet 00:00: 00 lisinopril 2014-07 No 1mg 20 mg 1-14 tablet 00:00: 00 carvedilol 2014-07 No 1mg 12.5 mg 1-14 tablet 00:00: 00 Pneumovax No Notes: Memori a 23 - (Same as: l 17:21: Pneumovax Tobias ) Refrigerat e Pneumovax No Notes: Memori a 23 5- (Same as: l 17:21: Pneumovax Tobias) Refrigerat e tramadol Yes 100.4 F, Abad charlene hydrochlori 5-01 X 4 day, # l de 50 MG 15:11: 30 tab, 0 Herm debbie Oral Tablet 00 Refill(s) [Ultram] tramadol Yes 100.4 F, Abad charlene hydrochlori 5-01 X 4 day, # l de 50 MG 15:11: 30 tab, 0 Herm debbie Oral Tablet 00 Refill(s) [Ultram] Lisinopril No Notes: Memor ia 4-30 (Same as: l 14:00: Prinivil, Tobias 00 Zestril) Hydrochloro No Notes: Abad charlene thiazide 4-30 (Same as: l 14:00: Microzide) Tobias 00 With food. pneumococca Yes Notes: Abad charlene l capsular 4-30 (Same as: l polysacchar 14:00: Pneumovax H ermann ricky type 1 ) vaccine / Refrigerat pneumococca e l capsular polysacchar ricky type 10A vaccine / pneumococca l capsular polysacchar ricky type 11A vaccine / pneumococca l capsular polysacchar ricky type 12F vaccine / pneumococca l capsular polysacchar Lisinopril No Notes: Memor ia 4-30 (Same as: l 14:00: Prinivil, Tobias 00 Zestril) Hydrochloro No Notes: Abad charlene thiazide 4-30 (Same as: l 14:00: Microzide) Rowland 00 With food. pneumococca Yes Notes: Abad [...] capsular polysacchar carvedilol No Notes: Memor ia 4-29 Give with l 22:00: food. Tobias 00 (Same As: Coreg) carvedilol No Notes: Memor ia 4-29 Give with l 22:00: food. Rowland 00 (Same As: Coreg) K-Dur 20 No Notes: Memoria 4-29 (Same as: l 15:30: K-Dur 20) Rowland 00 "Do Not Crush" With food and full glass of water K-Dur 20 No Notes: Memoria 4-29 (Same as: l 15:30: K-Dur 20) Rowland 00 "Do Not Crush" With food and full glass of water Zofran No Notes: Memoria 4- (Same as: l 11:34: Zofran) Tobias 00 MEDICATION WASTE Product Size: 4 mg Product Wasted: ___ mg Zofran No Notes: Memoria - (Same as: l 11:34: Zofran) Tobias 00 MEDICATION WASTE Product Size: 4 mg Product Wasted: ___ mg Morphine No Notes: Memoria 4- (Same l 11:26: as:MORPhin Rowland 00 e Sulfate) Morphine No Notes: Memoria 4-29 (Same l 11:26: as:MORPhin Tobias 00 e Sulfate) Dilaudid 2014-0 No 1 mg, 1 Memori a 4-29 mL, Route: l 11:25: IVP, Drug Rowland 00 form: INJ, Q6H, Dosing Weight 81.932, kg, PRN Pain Score 7-10, Priority: STAT, Start date: 10/30/14 6:25:00, Duration: 30 day, Stop date: 11/29/14 6:24:00 Dilaudid 2014-0 No 1 mg, 1 Memori a 4-29 mL, Route: l 11:25: IVP, Drug Tobias 00 form: INJ, Q6H, Dosing Weight 81.932, kg, PRN Pain Score 7-10, Priority: STAT, Start date: 10/30/14 6:25:00, Duration: 30 day, Stop date: 11/29/14 6:24:00 Labetalol 2014-0 No Notes: Memori a 4-29 (Same as: l 11:23: Normodyne, Row[place] 00 Trandate) Push over 2 minutes Give bolus over 2-3 minutes. normal No 1,000 mL, Memori a saline 0.9% 4-29 Rate: 100 l IV 1,000 mL 11:23: ml/hr, Herm debbie 00 Infuse over: 10 hr, Route: IV, Dosing Weight 81.932 kg, Total Volume: 1,000, Start date: 10/30/14 6:23:00, Duration: 30 day, Stop date: 11/29/14 6:22:00 Labetalol 2014-0 No Notes: Memori a 4-29 (Same as: l 11:23: Normodyne, Tobias 00 Trandate) Push over 2 minutes Give bolus over 2-3 minutes. normal No 1,000 mL, Memori a saline 0.9% 4-29 Rate: 100 l IV 1,000 mL 11:23: ml/hr, Herm debbie 00 Infuse over: 10 hr, Route: IV, Dosing Weight 81.932 kg, Total Volume: 1,000, Start date: 10/30/14 6:23:00, Duration: 30 day, Stop date: 11/29/14 6:22:00 carvedilol 2015-0 Yes 12.5 mg = Me moria 12.5 mg - 1 tab, PO, l oral tablet 10:34: BID, 0 Refill(s) Hydrochloro 0 No 12.5 mg, Me moria thiazide -29 PO, Daily, l 10:34: 0 Tobias 00 Refill(s) Lisinopril Yes 20 mg, PO, M emoria 4 Daily, 0 l 10:34: Refill(s) [place] 00 carvedilol Yes 12.5 mg = Me moria 12.5 mg - 1 tab, PO, l oral tablet 10:34: BID, 0 Herm Refill(s) Hydrochloro No 12.5 mg, Me moria thiazide - PO, Daily, l 10:34: 0 Tobias 00 Refill(s) Lisinopril Yes 20 mg, PO, M emoria 10-30 Daily, 0 l 10:34: Refill(s) [place] 00 lisinopril No 2mg 20 3-12 mg-hydrochl 00:00: orothiazide 00 12.5 mg tablet carvedilol No 1mg 12.5 mg 3-12 tablet 00:00: 00 Immunizations Ordered Immunization Filled Immunization Date Status Commen ts Source Name Name [facility] Ramseyid-19 2022-03-24 Completed Vaccine (Aged 12 00:00:00 years and older) (Physician'S Assistant) [facility] COVID-19 2020-11-18 Completed Vaccine 00:00:00 [facility] COVID-19 2020-10-21 Completed Vaccine 00:00:00 pneumococcal 2014-11-01 Completed [facility] 23-valent vaccine 18:41:00 [place] pneumococcal 2014-11-01 Completed [facility] 23-valent vaccine 18:41:00 [place] Vital Signs Vital Name Observation Time Observation Value Comments Source BP Systolic 2022-03-24 10:48:00 163 mm[Hg] BP Diastolic 2022-03-24 10:48:00 105 mm[Hg] Weight Measured 2022-03-24 10:48:00 162.80 pounds Height Measured 2022-03-24 10:48:00 63.80 inches Body Temperature 2022-03-24 10:48:00 97.70 degrees Heart Rate 2022-03-24 10:48:00 93.00 /min Respiratory Rate 2022-03-24 10:48:00 17.00 /min BP Systolic 2021-12-23 10:16:00 159 mm[Hg] BP Diastolic 2021-12-23 10:16:00 100 mm[Hg] Weight Measured 2021-12-23 10:16:00 175.80 pounds Height Measured 2021-12-23 10:16:00 63.80 inches Body Temperature 2021-12-23 10:16:00 98.30 degrees Heart Rate 2021-12-23 10:16:00 87.00 /min Respiratory Rate 2021-12-23 10:16:00 18.00 /min BP Systolic 2021-10-28 17:36:00 159 mm[Hg] BP Diastolic 2021-10-28 17:36:00 109 mm[Hg] Weight Measured 2021-10-28 17:36:00 175.60 pounds Height Measured 2021-10-28 17:36:00 63.80 inches Body Temperature 2021-10-28 17:36:00 98.30 degrees Heart Rate 2021-10-28 17:36:00 84.00 /min Respiratory Rate 2021-10-28 17:36:00 18.00 /min BP Systolic 2021-09-15 13:37:00 108 mm[Hg] BP Diastolic 2021-09-15 13:37:00 75 mm[Hg] Weight Measured 2021-09-15 13:37:00 166.20 pounds Height Measured 2021-09-15 13:37:00 63.80 inches Body Temperature 2021-09-15 13:37:00 98.10 degrees Heart Rate 2021-09-15 13:37:00 134.00 /min Respiratory Rate 2021-09-15 13:37:00 BP Systolic 2021-07-25 13:45:00 121 mm[Hg] BP Diastolic 2021-07-25 13:45:00 67 mm[Hg] Weight Measured 2021-07-25 13:45:00 170.60 pounds Height Measured 2021-07-25 13:45:00 63.80 inches Body Temperature 2021-07-25 13:45:00 98.40 degrees Heart Rate 2021-07-25 13:45:00 105.00 /min Respiratory Rate 2021-07-25 13:45:00 BP Systolic 2021-03-03 14:29:00 136 mm[Hg] BP Diastolic 2021-03-03 14:29:00 87 mm[Hg] Weight Measured 2021-03-03 14:29:00 182.00 pounds Height Measured 2021-03-03 14:29:00 63.98 inches Body Temperature 2021-03-03 14:29:00 98.10 degrees Heart Rate 2021-03-03 14:29:00 90.00 /min Respiratory Rate 2021-03-03 14:29:00 17.00 /min BP Systolic 2021-02-12 16:15:00 121 mm[Hg] BP Diastolic 2021-02-12 16:15:00 81 mm[Hg] Weight Measured 2021-02-12 16:15:00 181.40 pounds Height Measured 2021-02-12 16:15:00 63.98 inches Body Temperature 2021-02-12 16:15:00 98.10 degrees Heart Rate 2021-02-12 16:15:00 82.00 /min Respiratory Rate 2021-02-12 16:15:00 17.00 /min BP Systolic 2020-11-03 10:10:00 158 mm[Hg] BP Diastolic 2020-11-03 10:10:00 103 mm[Hg] Weight Measured 2020-11-03 10:10:00 187.60 pounds Height Measured 2020-11-03 10:10:00 63.98 inches Body Temperature 2020-11-03 10:10:00 98.63 degrees Heart Rate 2020-11-03 10:10:00 86.00 /min Respiratory Rate 2020-11-03 10:10:00 BP Systolic 2020-10-28 11:05:00 116 mm[Hg] BP Diastolic 2020-10-28 11:05:00 84 mm[Hg] Weight Measured 2020-10-28 11:05:00 189.99 pounds Height Measured 2020-10-28 11:05:00 63.98 inches Body Temperature 2020-10-28 11:05:00 98.30 degrees Heart Rate 2020-10-28 11:05:00 101.00 /min Respiratory Rate 2020-10-28 11:05:00 17.00 /min BP Systolic 2020-10-28 09:09:00 116 mm[Hg] BP Diastolic 2020-10-28 09:09:00 84 mm[Hg] Weight Measured 2020-10-28 09:09:00 999.99 pounds Height Measured 2020-10-28 09:09:00 63.98 inches Body Temperature 2020-10-28 09:09:00 98.30 degrees Heart Rate 2020-10-28 09:09:00 101.00 /min Respiratory Rate 2020-10-28 09:09:00 17.00 /min Heart Rate 2014-11-01 17:00:00 [facility] Temperature Oral (F) 2014-11-01 17:00:00 98.5 F [facility] Systolic (mm Hg) 2014-11-01 17:00:00 Abad rial Tobias Diastolic (mm Hg) 2014-11-01 17:00:00 Mem o[facility]ias Respitory Rate 2014-11-01 17:00:00 Memori al [place] Heart Rate 2014-11-01 13:00:00 [facility] Systolic (mm Hg) 2014-11-01 13:00:00 Abad rial [place] Diastolic (mm Hg) 2014-11-01 13:00:00 Mem orial [place] Respitory Rate 2014-11-01 13:00:00 [facility] al [place] Temperature Oral (F) 2014-11-01 13:00:00 98.6 F [facility] Respitory Rate 2014-11-01 09:01:00 [facility] [place] Systolic (mm Hg) 2014-11-01 09:01:00 Abad rial [place] Diastolic (mm Hg) 2014-11-01 09:01:00 Mem orial [place] Temperature Oral (F) 2014-11-01 09:01:00 98 F [facility] Heart Rate 2014-11-01 09:01:00 [facility] [place] Weight 2014-10-30 10:23:00 [facility] BMI Calculated 2014-10-30 10:23:00 [facility] [place] Height 2014-10-30 10:23:00 162.56 cm [facility] Procedures Procedure Date / Time Performed Performing Clinician [facility] jasiel [id number] Colposcopy Cervix 2020-09-26 00:00:00 Bx Cervix endocrv Curtg [id number] Colposcopy Cervix 2019-09-04 00:00:00 Bx Cervix endocrv Curtg Rmvl Impacted Cerumen Spx 2015-08-15 00:00:00 1/both Ears section [facility] Plan of Care Planned Activity Planned Date Details Comments Source Goal Plan of Care Note [code = 39821-4] Goal Plan of Care Note [code = 97675-4] Goal Plan of Care Note [code = 88440-3] Goal Plan of Care Note [code = 26341-3] Goal Plan of Care Note [code = 64309-8] Goal Plan of Care Note [code = 53413-6] Goal Plan of Care Note [code = 12599-7] Goal Plan of Care Note [code = 19211-4] Goal Plan of Care Note [code = 75343-6] Goal Plan of Care Note [code = 29569-9] Goal Plan of Care Note [code = 71329-6] Goal Plan of Care Note [code = 64581-1] Goal Plan of Care Note [code = 67845-9] Goal Plan of Care Note [code = 49701-5] Goal Plan of Care Note [code = 20098-2] Goal Plan of Care Note [code = 01960-4] Goal Plan of Care Note [code = 38229-0] Goal Plan of Care Note [code = 75570-4] Goal Plan of Care Note [code = 73574-5] Goal Plan of Care Note [code = 58275-8] Goal Plan of Care Note [code = 24021-0] Goal Plan of Care Note [code = 34666-7] Goal Plan of Care Note [code = 10061-6] Goal Plan of Care Note [code = 97087-9] Goal Plan of Care Note [code = 71472-9] Goal Plan of Care Note [code = 30952-7] Goal Plan of Care Note [code = 53176-8] Goal Plan of Care Note [code = 00709-6] Goal Plan of Care Note [code = 91741-4] Goal Plan of Care Note [code = 41908-7] Goal Plan of Care Note [code = 80728-8] Goal Plan of Care Note [code = 30139-2] Goal Plan of Care Note [code = 35027-1] Goal Plan of Care Note [code = 44269-7] Goal Plan of Care Note [code = 40707-6] Goal Plan of Care Note [code = 76906-5] Goal Plan of Care Note [code = 33298-3] Goal Plan of Care Note [code = 75729-2] Goal Plan of Care Note [code = 90173-7] Goal Plan of Care Note [code = 74294-0] Goal Plan of Care Note [code = 64115-9] Goal Plan of Care Note [code = 63589-3] Goal Plan of Care Note [code = 05238-9] Goal Plan of Care Note [code = 32329-7] Goal Plan of Care Note [code = 91333-8] Goal Plan of Care Note [code = 75353-0] Goal Plan of Care Note [code = 72314-1] Goal Plan of Care Note [code = 83055-9] Goal Plan of Care Note [code = 50535-7] Goal Plan of Care Note [code = 72099-4] Goal Plan of Care Note [code = 04602-0] Goal Plan of Care Note [code = 19175-5] Goal Plan of Care Note [code = 36708-7] Goal Plan of Care Note [code = 24495-0] Goal Plan of Care Note [code = 34226-5] Goal Plan of Care Note [code = 83926-7] Goal Plan of Care Note [code = 42779-1] Goal Plan of Care Note [code = 36650-0] Goal Plan of Care Note [code = 14110-5] Goal Plan of Care Note [code = 71562-2] Goal Plan of Care Note [code = 64549-7] Goal Plan of Care Note [code = 82234-0] Goal Plan of Care Note [code = 53821-0] Goal Plan of Care Note [code = 14464-8] Goal Plan of Care Note [code = 07252-6] Goal Plan of Care Note [code = 36591-3] Goal Plan of Care Note [code = 71026-5] Goal Plan of Care Note [code = 78838-1] Goal Plan of Care Note [code = 31857-9] Encounters Start End Encounter Admission Attending Care Care Encounter Source Date/Time Date/Time Type Type Clinicians Facility Department ID 2022-03-24 2022-03-24 Outpatient [id number] 00:00:00 00:00:00 Visit [id number] 2017-12-01 2017-12-01 [facility] [id number] Common 09:06:00 09:06:00 t [facility] [address] [facility] 2017-11-22 2017-11-22 [facility] 14 [id number] Common 13:28:00 13:28:00 t [facility] [address] [facility] 2017-10-28 2017-10-28 [facility] 13 [id number] Common 15:25:00 15:25:00 t [facility] [address] [facility] 2017-10-27 2017-10-27 [facility] 13 [id number] Common 11:53:00 11:53:00 t [facility] [address] [facility] 2017-10-25 2017-10-25 [facility] 13 [id number] Common 13:30:00 13:30:00 t [facility] [address] [facility] 2014-10-30 2014-11-01 Inpatient [facility] [id number] Memoria 10:18:00 21:02:00 veda Collado [address] [place] [address] 2014-10-30 2014-11-01 Inpatient [facility] [id number] Memoria 10:18:00 21:02:00 veda [place] [address] [place] [address] 2014-10-30 2014-11-01 Outpatient Damianqwimuaarnulfo, [id number] . [id number] 05:18:00 16:02:00 Aditya [id number] 01 Results Test Description Test Time Test Comments Results Result Comments Source PAP TEST, THINPREP, IMAGED 2021-12-26 16:20:45 Test Item Value Reference Range Interpretation Comme nts SOURCE: (test code = Cervical/Endocervical 800) SLIDES: (test code = 1 801) LMP: (test code = SEE NOTE POST RALEIGH PAUSAL 1345) SPECIMEN ADEQUACY: (NOTE) Prem flynn for (test code = 40928) evaluati on. Endocervical cells/transform ation zone component prese nt. INTERPRETATION: NILM/NO EPITH. ABNORMALITY;SEE (test code = 13322) BELOW -------- NEGATIVE FOR INTRAEPITHE LIAL LESION OR MALIGNANCY ( NILM) -- BEAMING MACHINE OPERATOR: DON Banerjee(ASCP) (test code = 8101) QC TECHNOLOGIST: DON Hand(ASCP) [facility] (test code = 8111) LOCATION: (test code (NOTE) Specime ns processed and = 09549) [facility] [address] [place] [address], Phone: ( [phone], CLIA: [id number] CPT: (test code = (NOTE) 07641 UNLE SS OTHERWISE 8140) INDICATED, COMP UTER AIDED AND CYTOTECHNOL OGIST SCREENING PERFO RMED. The Pap test is a scree jaimie test with an inheren t, but low probability of error. Your patient should be reminded to consult you immediately if she experien simon any suspicious sign s or symptoms, regar dless of her Pap test result . An alternate repor t format containing imag es or consolidated pr ior Pap history is avai peg as applicable. PAP TEST, THINPREP, [id number] 00:00:00 Test Item Value Reference Range Interpretation Comments SOURCE: (test code = Cervical/Endocervical 8001) SLIDES: (test code = 1 8011) LMP: (test code = 8021) SEE NOTE SPECIMEN ADEQUACY: (test (NOTE) code = 41218) INTERPRETATION: (test NILM/NO EPITH. code = 17454) ABNORMALITY;SEE BELOW BEAMING MACHINE OPERATOR: (test Madhu Falcon,CT(ASCP) code = 8101) QC TECHNOLOGIST: (test Malek code = 8111) ThaliaCT(ASCP) [facility] LOCATION: (test code = (NOTE) 97987) CPT: (test code = 8140) (NOTE) PAP TEST, THINPREP, [id number] 00:00:00 Test Item Value Reference Range Interpretation Comments SOURCE: (test code = Cervical/Endocervical 8001) SLIDES: (test code = 1 8011) LMP: (test code = 8021) SEE NOTE SPECIMEN ADEQUACY: (test (NOTE) code = 55034) INTERPRETATION: (test NILM/NO EPITH. code = 81259) ABNORMALITY;SEE BELOW BEAMING MACHINE OPERATOR: (test Madhu Falcon,CT(ASCP) code = 8101) QC TECHNOLOGIST: (test Malek code = 8111) ThaliaCT(ASCP) [facility] LOCATION: (test code = (NOTE) 86518) CPT: (test code = 8140) (NOTE) HPV HIGH RISK WITH GENOTYPE, [id number] 16:08:35 Test Item Value Reference Range Interpretation Comments HPV HIGH RISK INTERP NEGATIVE NEGATIVE (test code = 65631) HPV 16 (test code = NEGATIVE 61806) HPV 18 (test code = NEGATIVE 07423) HPV, HR, OTHER NEGATIVE Testing meth odology is GENOTYPES (test code real-ti me PCR utilizing = 00046) hydrolysis prob es with the [employer] 4800 system. The yamilex t individually de tects genotypes 16 an d 18, as well as the oth er 12 high risk types (31,33,35,39,45 ,51,52,56 ,58,59,66,68). The expected result is negative. A neg ative result does not rule out the presence of HPV not included in the genotype set, a low leve l of infection or sp ecimen sampling error. UNLESS OTHERWISE INDIC ATED, ALL TESTING PERFORM ED ATCLINICAL PATH [facility]LOGY [facility]IES, [facility]. [address] [place] [address] LABORATORY DIRE CTOR: SHADY VAZQUEZ M.D. CLIA NUMBER [id number] [place] [id number] HPV HIGH RISK WITH GENOTYPE, [id number] 00:00:00 Test Item Value Reference Range Interpretation Comments HPV HIGH RISK INTERP (test code = NEGATIVE 50688) HPV 16 (test code = 37056) NEGATIVE HPV 18 (test code = 75615) NEGATIVE HPV, HR, OTHER GENOTYPES (test code NEGATIVE = 16815) HPV HIGH RISK WITH GENOTYPE, [id number] 00:00:00 Test Item Value Reference Range Interpretation Comments HPV HIGH RISK INTERP (test code = NEGATIVE 84050) HPV 16 (test code = 07576) NEGATIVE HPV 18 (test code = 35914) NEGATIVE HPV, HR, OTHER GENOTYPES (test code NEGATIVE = 22749) TSH, THIRD [id number] 00:30:50 Test Item Value Reference Range Interpretation Comments TSH, THIRD GENERATION (test code 6.320 UIU/ML 0.400-4.100 H = 2821) LIPID [id number] 00:15:36 Test Item Value Reference Range Interpretation [...] MOREINFORMATION , SEE CLIENT ANNOUNCE MENT AT [email or web address] [email or web address] LDL/HDL 0.95 RATIO <3.22 (test code = 2238) COMPREHENSIVE METABOLIC [id number] 00:15:36 Test Item Value Reference Range Interpretation Comments GLUCOSE (test code = 109 MG/DL 70-99 H 2216) BUN (test code = 27 MG/DL 8-23 H 2207) CREATININE (test 1.82 MG/DL 0.60-1.30 H code = 221) eGFR (2020 CKD-EPI) 31 ML/MIN/1.73 >60 L (test code = 61225) CALC BUN/CREAT (test 15 RATIO 6-28 code = 223) SODIUM (test code = 136 MEQ/L 184-960 6501) POTASSIUM (test code 3.7 MEQ/L 3.5-5.4 = 2227) CHLORIDE (test code 94 MEQ/L 95-107 L = 2214) CARBON DIOXIDE (test 21 MEQ/L 19-31 code = 2205) CALCIUM (test code = 10.4 MG/DL 8.5-10.5 2208) PROTEIN, TOTAL (test 8.2 G/DL 6.1-8.3 code = 2228) ALBUMIN (test code = 4.9 G/DL 3.5-5.2 2200) CALC GLOBULIN (test 3.3 G/DL 1.9-3.7 code = 224) CALC A/G RATIO (test 1.5 RATIO 1.0-2.6 code = 223) BILIRUBIN, TOTAL 0.8 MG/DL See_Comment [Automated message] (test code = 2206) The syste m which generated this result transmit cristo reference range : <=1.2. The refe rence range was not u sed to interpret th is result as normal/abnormal . ALKALINE PHOSPHATASE 69 U/L 40-140 (test code = 2203) AST (test code = 38 U/L 9-40 2217) ALT (test code = 37 U/L 5-40 2218) LIPID [id number] 00:00:00 Test Item Value Reference Range Interpretation Comments CHOLESTEROL (test code = 2210) 247 MG/DL TRIGLYCERIDES (test code = 2232) 265 MG/DL HDL CHOLESTEROL (test code = 2220) 107 MG/DL CALC LDL CHOL (test code = 2237) 102 MG/DL RISK RATIO LDL/HDL (test code = 0.95 RATIO 8) LIPID [id number] 00:00:00 Test Item Value Reference Range Interpretation Comments CHOLESTEROL (test code = 2210) 247 MG/DL TRIGLYCERIDES (test code = 2232) 265 MG/DL HDL CHOLESTEROL (test code = 2220) 107 MG/DL CALC LDL CHOL (test code = 2237) 102 MG/DL RISK RATIO LDL/HDL (test code = 0.95 RATIO 2238) COMPREHENSIVE METABOLIC [id number] 00:00:00 Test Item Value Reference Range Interpretation Comments GLUCOSE (test code = 2217) 109 MG/DL BUN (test code = 2208) 27 MG/DL CREATININE (test code = 2214) 1.82 MG/DL eGFR (2020 CKD-EPI) (test code 31 ML/MIN/1.73 = 68608) CALC BUN/CREAT (test code = 15 RATIO 2235) SODIUM (test code = 2231) 136 MEQ/L POTASSIUM (test code = 2228) 3.7 MEQ/L CHLORIDE (test code = 2215) 94 MEQ/L CARBON DIOXIDE (test code = 21 MEQ/L 2205) CALCIUM (test code = 2209) 10.4 MG/DL PROTEIN, TOTAL (test code = 8.2 G/DL 2228) ALBUMIN (test code = 2201) 4.9 G/DL CALC GLOBULIN (test code = 3.3 G/DL 2239) CALC A/G RATIO (test code = 1.5 RATIO 2233) BILIRUBIN, TOTAL (test code = 0.8 MG/DL 2206) ALKALINE PHOSPHATASE (test 69 U/L code = 2204) AST (test code = 2218) 38 U/L ALT (test code = 2219) 37 U/L COMPREHENSIVE METABOLIC [id number] 00:00:00 Test Item Value Reference Range Interpretation Comments GLUCOSE (test code = 2217) 109 MG/DL BUN (test code = 2208) 27 MG/DL CREATININE (test code = 2214) 1.82 MG/DL eGFR (2020 CKD-EPI) (test code 31 ML/MIN/1.73 = 29869) CALC BUN/CREAT (test code = 15 RATIO 2235) SODIUM (test code = 2231) 136 MEQ/L POTASSIUM (test code = 2228) 3.7 MEQ/L CHLORIDE (test code = 2215) 94 MEQ/L CARBON DIOXIDE (test code = 21 MEQ/L 220) CALCIUM (test code = 2209) 10.4 MG/DL PROTEIN, TOTAL (test code = 8.2 G/DL 2228) ALBUMIN (test code = 2201) 4.9 G/DL CALC GLOBULIN (test code = 3.3 G/DL 2239) CALC A/G RATIO (test code = 1.5 RATIO 2233) BILIRUBIN, TOTAL (test code = 0.8 MG/DL 2206) ALKALINE PHOSPHATASE (test 69 U/L code = 2204) AST (test code = 2218) 38 U/L ALT (test code = 2219) 37 U/L [id number] 00:00:00 Test Item Value Reference Range Interpretation Comments TSH, THIRD GENERATION (test code 6.320 UIU/ML = 2821) [id number] 00:00:00 Test Item Value Reference Range Interpretation Comments TSH, THIRD GENERATION (test code 6.320 UIU/ML = 2821) [id number] 00:00:00 Test Item Value Reference Range Interpretation Comments TSH, THIRD GENERATION (test code 6.320 UIU/ML = 2821) HEMOGLOBIN [id number] 03:29:50 Test Item Value Reference Range Interpretation Comments HEMOGLOBIN A1c (test code = 29281) 6.3 % 4.2-5.6 H CBC W/AUTO DIFF WITH [id number] 03:01:52 Test Item Value Reference Range Interpretation [...] message] code = 1065) WBC'S The system [employer] generated this result transmitted ref erence range: [...] 1020) ABS NUCLEATED RBCS 0.00 K/UL 0.00-0.11 UNLESS O THERWISE (test code = 38684) INDICATE D, ALL TESTING PERFORM ED ATCLINICAL PATH [facility], [facility]. [address] [place], [place] [id number] [place] [address] DIRECTOR: SHADY ACKERMAN M.D. CLIA NUMBER [id number] CAP ACCREDITATION N O. [id number] HEMOGLOBIN [id number] 00:00:00 Test Item Value Reference Range Interpretation Comments HEMOGLOBIN A1c (test code = 82396) 6.3 % HEMOGLOBIN [id number] 00:00:00 Test Item Value Reference Range Interpretation Comments HEMOGLOBIN A1c (test code = 34731) 6.3 % HEMOGLOBIN [id number] 00:00:00 Test Item Value Reference Range Interpretation Comments HEMOGLOBIN A1c (test code = 53232) 6.3 % CBC W/AUTO [id number] 00:00:00 Test Item Value Reference Range Interpretation Comments WBC (test code = 1001) 8.5 K/UL RBC (test code = 1002) 4.48 M/UL HEMOGLOBIN (test code = 1003) 15.0 G/DL HEMATOCRIT (test code = 1004) 43.9 % MCV (test code = 1005) 98.0 fL MCH (test code = 1006) 33.5 PG MCHC (test code = 1007) 34.2 G/DL RDW (test code = 1038) 13.7 % NEUTROPHILS (test code = 1008) 58.5 % LYMPHOCYTES (test code = 1010) 33.3 % MONOCYTES (test code = 1011) 7.4 % EOSINOPHILS (test code = 1012) 0.4 % BASOPHILS (test code = 1013) 0.2 % IMMATURE GRANYLOCYTES (test 0.2 % code = 1036) NUCLEATED RBCS (test code = 0.0 /100WBC'S 1065) PLATELET COUNT (test code = 281 K/UL 1015) ABSOLUTE NEUTROPHILS (test code 4.98 K/UL = 1066) ABSOLUTE LYMPHOCYTES (test code 2.84 K/UL = 1067) ABSOLUTE MONOCYTES (test code = 0.63 K/UL 1068) ABSOLUTE EOSINOPHILS (test code 0.03 K/UL = 1040) ABSOLUTE BASOPHILS (test code = 0.02 K/UL 1069) ABS IMMATURE GRANULOCYTES (test 0.02 K/UL code = 1020) ABS NUCLEATED RBCS (test code = 0.00 K/UL 08741) CBC W/AUTO [id number] 00:00:00 Test Item Value Reference Range Interpretation Comments WBC (test code = 1001) 8.5 K/UL RBC (test code = 1002) 4.48 M/UL HEMOGLOBIN (test code = 1003) 15.0 G/DL HEMATOCRIT (test code = 1004) 43.9 % MCV (test code = 1005) 98.0 fL MCH (test code = 1006) 33.5 PG MCHC (test code = 1007) 34.2 G/DL RDW (test code = 1038) 13.7 % NEUTROPHILS (test code = 1008) 58.5 % LYMPHOCYTES (test code = 1010) 33.3 % MONOCYTES (test code = 1011) 7.4 % EOSINOPHILS (test code = 1012) 0.4 % BASOPHILS (test code = 1013) 0.2 % IMMATURE GRANYLOCYTES (test 0.2 % code = 1036) NUCLEATED RBCS (test code = 0.0 /100WBC'S 1065) PLATELET COUNT (test code = 281 K/UL 1015) ABSOLUTE NEUTROPHILS (test code 4.98 K/UL = 1066) ABSOLUTE LYMPHOCYTES (test code 2.84 K/UL = 1067) ABSOLUTE MONOCYTES (test code = 0.63 K/UL 1068) ABSOLUTE EOSINOPHILS (test code 0.03 K/UL = 1040) ABSOLUTE BASOPHILS (test code = 0.02 K/UL 1069) ABS IMMATURE GRANULOCYTES (test 0.02 K/UL code = 1020) ABS NUCLEATED RBCS (test code = 0.00 K/UL 40663) CBC W/AUTO [id number] 00:00:00 Test Item Value Reference Range Interpretation Comments WBC (test code = 1001) 8.5 K/UL RBC (test code = 1002) 4.48 M/UL HEMOGLOBIN (test code = 1003) 15.0 G/DL HEMATOCRIT (test code = 1004) 43.9 % MCV (test code = 1005) 98.0 fL MCH (test code = 1006) 33.5 PG MCHC (test code = 1007) 34.2 G/DL RDW (test code = 1038) 13.7 % NEUTROPHILS (test code = 1008) 58.5 % LYMPHOCYTES (test code = 1010) 33.3 % MONOCYTES (test code = 1011) 7.4 % EOSINOPHILS (test code = 1012) 0.4 % BASOPHILS (test code = 1013) 0.2 % IMMATURE GRANYLOCYTES (test 0.2 % code = 1036) NUCLEATED RBCS (test code = 0.0 /100WBC'S 1065) PLATELET COUNT (test code = 281 K/UL 1015) ABSOLUTE NEUTROPHILS (test code 4.98 K/UL = 1066) ABSOLUTE LYMPHOCYTES (test code 2.84 K/UL = 1067) ABSOLUTE MONOCYTES (test code = 0.63 K/UL 1068) ABSOLUTE EOSINOPHILS (test code 0.03 K/UL = 1040) ABSOLUTE BASOPHILS (test code = 0.02 K/UL 1069) ABS IMMATURE GRANULOCYTES (test 0.02 K/UL code = 1020) ABS NUCLEATED RBCS (test code = 0.00 K/UL 84893) COMPREHENSIVE METABOLIC [id number] 00:00:00 Test Item Value Reference Range Interpretation Comments GLUCOSE (test code = 2217) 195 MG/DL BUN (test code = 2208) 15 MG/DL CREATININE (test code = 2214) 0.70 MG/DL eGFR AMER. (test code 108 ML/MIN/1.73 = 99899) eGFR NON- AMER. (test 93 ML/MIN/1.73 code = 05815) CALC BUN/CREAT (test code = 21 RATIO 2235) SODIUM (test code = 2231) 136 MEQ/L POTASSIUM (test code = 2228) 3.9 MEQ/L CHLORIDE (test code = 2215) 97 MEQ/L CARBON DIOXIDE (test code = 24 MEQ/L 2206) CALCIUM (test code = 2209) 10.2 MG/DL PROTEIN, TOTAL (test code = 7.3 G/DL 2228) ALBUMIN (test code = 2201) 4.6 G/DL CALC GLOBULIN (test code = 2.7 G/DL 2240) CALC A/G RATIO (test code = 1.7 RATIO 2234) BILIRUBIN, TOTAL (test code = 0.4 MG/DL 2206) ALKALINE PHOSPHATASE (test 63 U/L code = 2204) AST (test code = 2218) 16 U/L ALT (test code = 2219) 13 U/L COMPREHENSIVE METABOLIC [id number] 00:00:00 Test Item Value Reference Range Interpretation Comments GLUCOSE (test code = 2217) 195 MG/DL BUN (test code = 2208) 15 MG/DL CREATININE (test code = 2214) 0.70 MG/DL eGFR AMER. (test code 108 ML/MIN/1.73 = 33262) eGFR NON- AMER. (test 93 ML/MIN/1.73 code = 57680) CALC BUN/CREAT (test code = 21 RATIO 2235) SODIUM (test code = 2231) 136 MEQ/L POTASSIUM (test code = 2228) 3.9 MEQ/L CHLORIDE (test code = 2215) 97 MEQ/L CARBON DIOXIDE (test code = 24 MEQ/L 2206) CALCIUM (test code = 2209) 10.2 MG/DL PROTEIN, TOTAL (test code = 7.3 G/DL 2228) ALBUMIN (test code = 2201) 4.6 G/DL CALC GLOBULIN (test code = 2.7 G/DL 2240) CALC A/G RATIO (test code = 1.7 RATIO 2234) BILIRUBIN, TOTAL (test code = 0.4 MG/DL 2206) ALKALINE PHOSPHATASE (test 63 U/L code = 2204) AST (test code = 2218) 16 U/L ALT (test code = 2219) 13 U/L LIPID [id number] 00:00:00 Test Item Value Reference Range Interpretation Comments CHOLESTEROL (test code = 2210) 257 MG/DL TRIGLYCERIDES (test code = 2232) 189 MG/DL HDL CHOLESTEROL (test code = 2220) 49 MG/DL CALC LDL CHOL (test code = 2237) 174 MG/DL RISK RATIO LDL/HDL (test code = 3.55 RATIO 2238) LIPID [id number] 00:00:00 Test Item Value Reference Range Interpretation Comments CHOLESTEROL (test code = 2210) 257 MG/DL TRIGLYCERIDES (test code = 2232) 189 MG/DL HDL CHOLESTEROL (test code = 2220) 49 MG/DL CALC LDL CHOL (test code = 2237) 174 MG/DL RISK RATIO LDL/HDL (test code = 3.55 RATIO 2238) HEMOGLOBIN [id number] 00:00:00 Test Item Value Reference Range Interpretation Comments HEMOGLOBIN A1c (test code = 57500) 9.2 % HEMOGLOBIN [id number] 00:00:00 Test Item Value Reference Range Interpretation Comments HEMOGLOBIN A1c (test code = 65296) 9.2 % HEMOGLOBIN [id number] 00:00:00 Test Item Value Reference Range Interpretation Comments HEMOGLOBIN A1c (test code = 38325) 9.2 % COMPREHENSIVE METABOLIC [id number] 00:00:00 Test Item Value Reference Range Interpretation Comments GLUCOSE (test code = 2217) 199 MG/DL BUN (test code = 2208) 16 MG/DL CREATININE (test code = 2214) 0.85 MG/DL eGFR AMER. (test code 86 ML/MIN/1.73 = 54595) eGFR NON- AMER. (test 74 ML/MIN/1.73 code = 01460) CALC BUN/CREAT (test code = 19 RATIO 2235) SODIUM (test code = 2231) 138 MEQ/L POTASSIUM (test code = 2228) 4.1 MEQ/L CHLORIDE (test code = 2215) 98 MEQ/L CARBON DIOXIDE (test code = 24 MEQ/L 2205) CALCIUM (test code = 2209) 10.2 MG/DL PROTEIN, TOTAL (test code = 8.0 G/DL 2228) ALBUMIN (test code = 2201) 4.8 G/DL CALC GLOBULIN (test code = 3.2 G/DL 2240) CALC A/G RATIO (test code = 1.5 RATIO 2234) BILIRUBIN, TOTAL (test code = 0.5 MG/DL 220) ALKALINE PHOSPHATASE (test 118 U/L code = 2204) AST (test code = 2218) 18 U/L ALT (test code = 2219) 22 U/L COMPREHENSIVE METABOLIC [id number] 00:00:00 Test Item Value Reference Range Interpretation Comments GLUCOSE (test code = 2217) 199 MG/DL BUN (test code = 2208) 16 MG/DL CREATININE (test code = 2214) 0.85 MG/DL eGFR AMER. (test code 86 ML/MIN/1.73 = 50762) eGFR NON- AMER. (test 74 ML/MIN/1.73 code = 35361) CALC BUN/CREAT (test code = 19 RATIO 2235) SODIUM (test code = 2231) 138 MEQ/L POTASSIUM (test code = 2228) 4.1 MEQ/L CHLORIDE (test code = 2215) 98 MEQ/L CARBON DIOXIDE (test code = 24 MEQ/L 2206) CALCIUM (test code = 2209) 10.2 MG/DL PROTEIN, TOTAL (test code = 8.0 G/DL 2228) ALBUMIN (test code = 2201) 4.8 G/DL CALC GLOBULIN (test code = 3.2 G/DL 2240) CALC A/G RATIO (test code = 1.5 RATIO 2234) BILIRUBIN, TOTAL (test code = 0.5 MG/DL 7) ALKALINE PHOSPHATASE (test 118 U/L code = 2204) AST (test code = 2218) 18 U/L ALT (test code = 2219) 22 U/L LIPID [id number] 00:00:00 Test Item Value Reference Range Interpretation Comments CHOLESTEROL (test code = 2210) 244 MG/DL TRIGLYCERIDES (test code = 2232) 226 MG/DL HDL CHOLESTEROL (test code = 2220) 57 MG/DL CALC LDL CHOL (test code = 2237) 151 MG/DL RISK RATIO LDL/HDL (test code = 2.65 RATIO 2238) LIPID [id number] 00:00:00 Test Item Value Reference Range Interpretation Comments CHOLESTEROL (test code = 2210) 244 MG/DL TRIGLYCERIDES (test code = 2232) 226 MG/DL HDL CHOLESTEROL (test code = 2220) 57 MG/DL CALC LDL CHOL (test code = 2237) 151 MG/DL RISK RATIO LDL/HDL (test code = 2.65 RATIO 2238) HEMOGLOBIN [id number] 00:00:00 Test Item Value Reference Range Interpretation Comments HEMOGLOBIN A1c (test code = 59391) 7.0 % HEMOGLOBIN [id number] 00:00:00 Test Item Value Reference Range Interpretation Comments HEMOGLOBIN A1c (test code = 73266) 7.0 % HEMOGLOBIN [id number] 00:00:00 Test Item Value Reference Range Interpretation Comments HEMOGLOBIN A1c (test code = 22392) 7.0 % SURGICAL PATHOLOGY [id number] 00:00:00 Test Item Value Reference Range Interpretation Comments DIAGNOSIS: (test code = 8200) (NOTE) COMMENTS: (test code = 8205) (NOTE) MICROSCOPIC DESCRIPTION: (test code = (NOTE) 8210) CLINICAL DATA: (test code = 8401) (NOTE) GROSS DESCRIPTION: (test code = 8220) (NOTE) PATHOLOGIST: (test code = 8250) (NOTE) CPT: (test code = 8400) (NOTE) SURGICAL PATHOLOGY [id number] 00:00:00 Test Item Value Reference Range Interpretation Comments DIAGNOSIS: (test code = 8200) (NOTE) COMMENTS: (test code = 8205) (NOTE) MICROSCOPIC DESCRIPTION: (test code = (NOTE) 8210) CLINICAL DATA: (test code = 8401) (NOTE) GROSS DESCRIPTION: (test code = 8220) (NOTE) PATHOLOGIST: (test code = 8250) (NOTE) CPT: (test code = 8400) (NOTE) SURGICAL PATHOLOGY [id number] 00:00:00 Test Item Value Reference Range Interpretation Comments DIAGNOSIS: (test code = 8200) (NOTE) COMMENTS: (test code = 8205) (NOTE) MICROSCOPIC DESCRIPTION: (test code = (NOTE) 8210) CLINICAL DATA: (test code = 8401) (NOTE) GROSS DESCRIPTION: (test code = 8220) (NOTE) PATHOLOGIST: (test code = 8250) (NOTE) CPT: (test code = 8400) (NOTE) SURGICAL PATHOLOGY [id number] 00:00:00 Test Item Value Reference Range Interpretation Comments DIAGNOSIS: (test code = 8200) (NOTE) COMMENTS: (test code = 8205) (NOTE) MICROSCOPIC DESCRIPTION: (test code = (NOTE) 8210) CLINICAL DATA: (test code = 8401) (NOTE) GROSS DESCRIPTION: (test code = 8220) (NOTE) PATHOLOGIST: (test code = 8250) (NOTE) CPT: (test code = 8400) (NOTE) PAP TEST, THINPREP, [id number] 00:00:00 Test Item Value Reference Range Interpretation Comments SOURCE: (test code = 8001) Cervical SLIDES: (test code = 8011) 1 LMP: (test code = 8021) 1998 SPECIMEN ADEQUACY: (test (NOTE) code = 79296) INTERPRETATION: (test code LSIL/EPITH. = 89636) ABNORMALITY; SEE BELOW OTHER COMMENTS: (test code (NOTE) = 8081) BEAMING MACHINE OPERATOR: (test Elisha Cox, CT code = 8101) (ASCP) PATHOLOGIST INTERPRETATION Unique Lin BY: (test code = 8122) LOCATION: (test code = (NOTE) 67092) CPT: (test code = 8140) (NOTE) PAP TEST, THINPREP, [id number] 00:00:00 Test Item Value Reference Range Interpretation Comments SOURCE: (test code = 8001) Cervical SLIDES: (test code = 8011) 1 LMP: (test code = 8021) 1998 SPECIMEN ADEQUACY: (test (NOTE) code = 27053) INTERPRETATION: (test code LSIL/EPITH. = 53313) ABNORMALITY; SEE BELOW OTHER COMMENTS: (test code (NOTE) = 8081) BEAMING MACHINE OPERATOR: (test Elisha Cox, CT code = 8101) (ASCP) PATHOLOGIST INTERPRETATION Unique Lin BY: (test code = 8122) LOCATION: (test code = (NOTE) 77894) CPT: (test code = 8140) (NOTE) VAGINAL PATHOGENS DNA [id number] 00:00:00 Test Item Value Reference Range Interpretation Comments KEELY SPECIES (test code = 83870) NEGATIVE G. VAGINALIS (test code = 19905) POSITIVE T. VAGINALIS (test code = 94955) NEGATIVE VAGINAL PATHOGENS DNA [id number] 00:00:00 Test Item Value Reference Range Interpretation Comments KEELY SPECIES (test code = 59641) NEGATIVE G. VAGINALIS (test code = ) POSITIVE T. VAGINALIS (test code = ) NEGATIVE HPV HIGH RISK WITH GENOTYPE, [id number] 00:00:00 Test Item Value Reference Range Interpretation Comments HPV HIGH RISK INTERP (test code = POSITIVE 14366) HPV 16 (test code = 67682) NEGATIVE HPV 18 (test code = 79880) POSITIVE HPV, HR, OTHER GENOTYPES (test code POSITIVE = 53456) HPV HIGH RISK WITH GENOTYPE, [id number] 00:00:00 Test Item Value Reference Range Interpretation Comments HPV HIGH RISK INTERP (test code = POSITIVE 34057) HPV 16 (test code = 48380) NEGATIVE HPV 18 (test code = 77653) POSITIVE HPV, HR, OTHER GENOTYPES (test code POSITIVE = 02248) HEMOGLOBIN [id number] 00:00:00 Test Item Value Reference Range Interpretation Comments HEMOGLOBIN A1c (test code = 92404) 6.1 % HEMOGLOBIN [id number] 00:00:00 Test Item Value Reference Range Interpretation Comments HEMOGLOBIN A1c (test code = 15373) 6.1 % HEMOGLOBIN [id number] 00:00:00 Test Item Value Reference Range Interpretation Comments HEMOGLOBIN A1c (test code = 36083) 6.1 % LIPID [id number] 00:00:00 Test Item Value Reference Range Interpretation Comments CHOLESTEROL (test code = 2210) 252 MG/DL TRIGLYCERIDES (test code = 2232) 611 MG/DL HDL CHOLESTEROL (test code = 65 MG/DL 2220) CALC LDL CHOL (test code = 2237) (NOTE) MG/DL RISK RATIO LDL/HDL (test code = (NOTE) RATIO 2238) LIPID [id number] 00:00:00 Test Item Value Reference Range Interpretation Comments CHOLESTEROL (test code = 2210) 252 MG/DL TRIGLYCERIDES (test code = 2232) 611 MG/DL HDL CHOLESTEROL (test code = 65 MG/DL 2220) CALC LDL CHOL (test code = 2237) (NOTE) MG/DL RISK RATIO LDL/HDL (test code = (NOTE) RATIO 2238) COMPREHENSIVE METABOLIC [id number] 00:00:00 Test Item Value Reference Range Interpretation Comments GLUCOSE (test code = 2217) 121 MG/DL BUN (test code = 2208) 27 MG/DL CREATININE (test code = 2214) 1.49 MG/DL eGFR AMER. (test code 43 ML/MIN/1.73 = 88612) eGFR NON- AMER. (test 38 ML/MIN/1.73 code = 74465) CALC BUN/CREAT (test code = 18 RATIO 2235) SODIUM (test code = 2231) 137 MEQ/L POTASSIUM (test code = 2228) 3.8 MEQ/L CHLORIDE (test code = 2215) 95 MEQ/L CARBON DIOXIDE (test code = 22 MEQ/L 2205) CALCIUM (test code = 2209) 10.2 MG/DL PROTEIN, TOTAL (test code = 7.7 G/DL 2228) ALBUMIN (test code = 2201) 4.6 G/DL CALC GLOBULIN (test code = 3.1 G/DL 2240) CALC A/G RATIO (test code = 1.5 RATIO 2234) BILIRUBIN, TOTAL (test code = 0.6 MG/DL 2206) ALKALINE PHOSPHATASE (test 97 U/L code = 2204) AST (test code = 2218) 50 U/L ALT (test code = 2219) 43 U/L COMPREHENSIVE METABOLIC [id number] 00:00:00 Test Item Value Reference Range Interpretation Comments GLUCOSE (test code = 2217) 121 MG/DL BUN (test code = 2208) 27 MG/DL CREATININE (test code = 2214) 1.49 MG/DL eGFR AMER. (test code 43 ML/MIN/1.73 = 99375) eGFR NON- AMER. (test 38 ML/MIN/1.73 code = 40893) CALC BUN/CREAT (test code = 18 RATIO 2235) SODIUM (test code = 2231) 137 MEQ/L POTASSIUM (test code = 2228) 3.8 MEQ/L CHLORIDE (test code = 2215) 95 MEQ/L CARBON DIOXIDE (test code = 22 MEQ/L 220) CALCIUM (test code = 2209) 10.2 MG/DL PROTEIN, TOTAL (test code = 7.7 G/DL 2228) ALBUMIN (test code = 2201) 4.6 G/DL CALC GLOBULIN (test code = 3.1 G/DL 2240) CALC A/G RATIO (test code = 1.5 RATIO 2234) BILIRUBIN, TOTAL (test code = 0.6 MG/DL 2206) ALKALINE PHOSPHATASE (test 97 U/L code = 2204) AST (test code = 2218) 50 U/L ALT (test code = 2219) 43 U/L HEMOGLOBIN [id number] 00:00:00 Test Item Value Reference Range Interpretation Comments HEMOGLOBIN A1c (test code = 84793) 8.5 % HEMOGLOBIN [id number] 00:00:00 Test Item Value Reference Range Interpretation Comments HEMOGLOBIN A1c (test code = 14645) 8.5 % HEMOGLOBIN [id number] 00:00:00 Test Item Value Reference Range Interpretation Comments HEMOGLOBIN A1c (test code = 57490) 8.5 % HEMOGLOBIN [id number] 00:00:00 Test Item Value Reference Range Interpretation Comments HEMOGLOBIN A1c (test code = 17854) 9.1 % HEMOGLOBIN [id number] 00:00:00 Test Item Value Reference Range Interpretation Comments HEMOGLOBIN A1c (test code = 76410) 9.1 % HEMOGLOBIN [id number] 00:00:00 Test Item Value Reference Range Interpretation Comments HEMOGLOBIN A1c (test code = 61873) 9.1 % COMPREHENSIVE METABOLIC [id number] 00:00:00 Test Item Value Reference Range Interpretation Comments GLUCOSE (test code = 2217) 176 MG/DL BUN (test code = 2208) 16 MG/DL CREATININE (test code = 2214) 0.87 MG/DL eGFR AMER. (test code 83 ML/MIN/1.73 = 11870) eGFR NON- AMER. (test 72 ML/MIN/1.73 code = 32487) CALC BUN/CREAT (test code = 18 RATIO 2234) SODIUM (test code = 2231) 137 MEQ/L POTASSIUM (test code = 2228) 3.5 MEQ/L CHLORIDE (test code = 2215) 93 MEQ/L CARBON DIOXIDE (test code = 27 MEQ/L 2205) CALCIUM (test code = 2209) 10.3 MG/DL PROTEIN, TOTAL (test code = 7.8 G/DL 2228) ALBUMIN (test code = 2201) 4.9 G/DL CALC GLOBULIN (test code = 2.9 G/DL 2239) CALC A/G RATIO (test code = 1.7 RATIO 2233) BILIRUBIN, TOTAL (test code = 0.4 MG/DL 2207) ALKALINE PHOSPHATASE (test 89 U/L code = 2204) AST (test code = 2218) 19 U/L ALT (test code = 2219) 21 U/L COMPREHENSIVE METABOLIC [id number] 00:00:00 Test Item Value Reference Range Interpretation Comments GLUCOSE (test code = 2217) 176 MG/DL BUN (test code = 2208) 16 MG/DL CREATININE (test code = 2214) 0.87 MG/DL eGFR AMER. (test code 83 ML/MIN/1.73 = 34726) eGFR NON- AMER. (test 72 ML/MIN/1.73 code = 70055) CALC BUN/CREAT (test code = 18 RATIO 2235) SODIUM (test code = 2231) 137 MEQ/L POTASSIUM (test code = 2228) 3.5 MEQ/L CHLORIDE (test code = 2215) 93 MEQ/L CARBON DIOXIDE (test code = 27 MEQ/L 2205) CALCIUM (test code = 2209) 10.3 MG/DL PROTEIN, TOTAL (test code = 7.8 G/DL 2228) ALBUMIN (test code = 2201) 4.9 G/DL CALC GLOBULIN (test code = 2.9 G/DL 2240) CALC A/G RATIO (test code = 1.7 RATIO 2234) BILIRUBIN, TOTAL (test code = 0.4 MG/DL 2206) ALKALINE PHOSPHATASE (test 89 U/L code = 2204) AST (test code = 2218) 19 U/L ALT (test code = 2219) 21 U/L LIPID [id number] 00:00:00 Test Item Value Reference Range Interpretation Comments CHOLESTEROL (test code = 2210) 228 MG/DL TRIGLYCERIDES (test code = 2232) 268 MG/DL HDL CHOLESTEROL (test code = 2220) 54 MG/DL CALC LDL CHOL (test code = 2237) 133 MG/DL RISK RATIO LDL/HDL (test code = 2.46 RATIO 2238) LIPID [id number] 00:00:00 Test Item Value Reference Range Interpretation Comments CHOLESTEROL (test code = 2210) 228 MG/DL TRIGLYCERIDES (test code = 2232) 268 MG/DL HDL CHOLESTEROL (test code = 2220) 54 MG/DL CALC LDL CHOL (test code = 2237) 133 MG/DL RISK RATIO LDL/HDL (test code = 2.46 RATIO 2238) SURGICAL PATHOLOGY [id number] 00:00:00 Test Item Value Reference Range Interpretation Comments DIAGNOSIS: (test code = 8200) (NOTE) COMMENTS: (test code = 8205) (NOTE) MICROSCOPIC DESCRIPTION: (test code = (NOTE) 8210) CLINICAL DATA: (test code = 8401) (NOTE) GROSS DESCRIPTION: (test code = 8220) (NOTE) PATHOLOGIST: (test code = 8250) (NOTE) CPT: (test code = 8400) (NOTE) SURGICAL PATHOLOGY [id number] 00:00:00 Test Item Value Reference Range Interpretation Comments DIAGNOSIS: (test code = 8200) (NOTE) COMMENTS: (test code = 8205) (NOTE) MICROSCOPIC DESCRIPTION: (test code = (NOTE) 8210) CLINICAL DATA: (test code = 8401) (NOTE) GROSS DESCRIPTION: (test code = 8220) (NOTE) PATHOLOGIST: (test code = 8250) (NOTE) CPT: (test code = 8400) (NOTE) PAP TEST, THINPREP, [id number] 00:00:00 Test Item Value Reference Range Interpretation Comments SOURCE: (test code = 8001) Cervical/Endocervic al SLIDES: (test code = 8011) 1 LMP: (test code = 8021) SEE NOTE SPECIMEN ADEQUACY: (test (NOTE) code = 83789) INTERPRETATION: (test code LSIL/EPITH. = 39746) ABNORMALITY; SEE BELOW OTHER COMMENTS: (test code (NOTE) = 8081) BEAMING MACHINE OPERATOR: (test Zeke code = 8101) DON Garcia(ASCP) PATHOLOGIST INTERPRETATION Nancy Flores BY: (test code = 8122) [place] LOCATION: (test code = (NOTE) 35490) CPT: (test code = 8140) (NOTE) PAP TEST, THINPREP, [id number] 00:00:00 Test Item Value Reference Range Interpretation Comments SOURCE: (test code = 8001) Cervical/Endocervic al SLIDES: (test code = 8011) 1 LMP: (test code = 8021) SEE NOTE SPECIMEN ADEQUACY: (test (NOTE) code = 36818) INTERPRETATION: (test code LSIL/EPITH. = 76129) ABNORMALITY; SEE BELOW OTHER COMMENTS: (test code (NOTE) = 8081) BEAMING MACHINE OPERATOR: (test Zeke code = 8101) DON Garcia(ASCP) PATHOLOGIST INTERPRETATION Nancy Flores, BY: (test code = 8122) [place] LOCATION: (test code = (NOTE) 97977) CPT: (test code = 8140) (NOTE) VAGINAL PATHOGENS DNA [id number] 00:00:00 Test Item Value Reference Range Interpretation Comments KEELY SPECIES (test code = ) NEGATIVE G. VAGINALIS (test code = 71541) POSITIVE T. VAGINALIS (test code = 82819) NEGATIVE VAGINAL PATHOGENS DNA [id number] 00:00:00 Test Item Value Reference Range Interpretation Comments KEELY SPECIES (test code = 58048) NEGATIVE G. VAGINALIS (test code = 65362) POSITIVE T. VAGINALIS (test code = 90430) NEGATIVE HPV HIGH RISK WITH GENOTYPE, [id number] 00:00:00 Test Item Value Reference Range Interpretation Comments HPV HIGH RISK INTERP (test code = POSITIVE 22934) HPV 16 (test code = 90350) NEGATIVE HPV 18 (test code = 15121) POSITIVE HPV, HR, OTHER GENOTYPES (test code POSITIVE = 56861) HPV HIGH RISK WITH GENOTYPE, [id number] 00:00:00 Test Item Value Reference Range Interpretation Comments HPV HIGH RISK INTERP (test code = POSITIVE 80259) HPV 16 (test code = 29945) NEGATIVE HPV 18 (test code = 20467) POSITIVE HPV, HR, OTHER GENOTYPES (test code POSITIVE = 23156) BASIC METABOLIC [id number] 05:52:00 Test Item Value Reference Range Interpretation [...] PATIEN TS. CBC W/PLT COUNT & AUTO [id number] 04:21:00 Test Item Value Reference Range Interpretation [...] PERCENT (BEAKER) (test code = 2801) POCT-GLUCOSE [id number] 22:00:00 Test Item Value Reference Range Interpretation Comments POC-GLUCOSE METER 148 mg/dL 70-110 H TESTED AT [place] [address] ([facility]) (test code = GAIL Mccollum [facility] 1538) [address] POCT-GLUCOSE [id number] 17:06:00 Test Item Value Reference Range Interpretation Comments POC-GLUCOSE METER 224 mg/dL 70-110 H TESTED AT [place] [address] ([facility]) (test code = [facility]LEY Mccollum [facility] 1538) [address] POCT-GLUCOSE [id number] 12:39:00 Test Item Value Reference Range Interpretation Comments POC-GLUCOSE METER 214 mg/dL 70-110 H TESTED AT [place] [address] ([facility]) (test code = [facility] Veda [facility] 1538) [address] POCT-GLUCOSE [id number] 08:26:00 Test Item Value Reference Range Interpretation Comments POC-GLUCOSE METER 166 mg/dL 70-110 H TESTED AT [place] [address] ([facility]) (test code = [facility] Veda [facility] 1538) [address] COMPREHENSIVE METABOLIC [id number] 05:17:00 Test Item Value Reference Range Interpretation [...] S NOT APPLICABLE FOR DIALYSIS PATIEN TS. [id number] 05:14:00 Test Item Value Reference Range Interpretation Comments PHOSPHORUS (BEAKER) (test code = 2.9 mg/dL 2.3-4.7 604) [id number] 05:14:00 Test Item Value Reference Range Interpretation Comments MAGNESIUM (BEAKER) (test code = 1.6 mg/dL 1.6-2.6 627) CBC W/PLT COUNT & AUTO [id number] 04:48:00 Test Item Value Reference Range Interpretation [...] PERCENT (BEAKER) (test code = 2801) POCT-GLUCOSE [id number] 22:42:00 Test Item Value Reference Range Interpretation Comments POC-GLUCOSE METER 184 mg/dL 70-[address] [facility] [address] (BEAKER) (test code = GAIL [place] 1538) [address] POCT-GLUCOSE [id number] 18:51:00 Test Item Value Reference Range Interpretation Comments POC-GLUCOSE METER 220 mg/dL 70-[address] [facility] [address] (BEAKER) (test code = GAIL [place] 1538) [address] [id number] 16:07:00 Test Item Value Reference Range Interpretation Comments MAGNESIUM (BEAKER) (test code = 1.8 mg/dL 1.6-2.6 627) [id number] 16:07:00 Test Item Value Reference Range Interpretation Comments POTASSIUM (BEAKER) (test code = 4.1 meq/L 3.5-5.1 379) POCT-GLUCOSE [id number] 15:47:00 Test Item Value Reference Range Interpretation Comments POC-GLUCOSE METER 215 mg/dL 70-[address] [facility] [address] (BEAKER) (test code = [facility] Veda [facility] 1538) [address] [id number] 10:16:00 Test Item Value Reference Range Interpretation Comments MAGNESIUM (BEAKER) (test code = 1.7 mg/dL 1.6-2.6 627) POCT-GLUCOSE [id number] 09:25:00 Test Item Value Reference Range Interpretation Comments POC-GLUCOSE METER 156 mg/dL 70-110 H TESTED AT [place] [address] (BEAKER) (test code = [facility] 1538) [address] BASIC METABOLIC [id number] 06:32:00 Test Item Value Reference Range Interpretation [...] PATIEN TS. CBC W/PLT COUNT & AUTO [id number] 05:42:00 Test Item Value Reference Range Interpretation [...] PERCENT (BEAKER) (test code = 2801) POCT-GLUCOSE [id number] 22:05:00 Test Item Value Reference Range Interpretation Comments POC-GLUCOSE METER 255 mg/dL 70-[address] [facility] [address] ([place]) (test code = GAIL [place] 1538) [address] MR, BRAIN, WITHOUT [id number] 19:23:00Reason for exam:->StrokeWhat is the patient's sedation requirement?->No SedationFINAL REPORT MR, BRAIN, WITHOUT CONTRAST, MR, MRA, BRAIN, WITHOUT CONTRAST, MR,MRA, NECK, WITHOUT IV CONTRAST INDICATION: StrokeStroke TECHNIQUE: [...] Orbits are within normal limits. No obstructive paran jennifer sinus disease. Additional findings: Bilateral T2 hyperintense parotid lesions, with the right measuring 2 cm and the right measuring 1.8 cm. MRA BRAIN:Internal carotid arteries: Normal flow related enhancement without flow- limiting stenosisMiddle cerebral arteries: Normal flow related enhancementwithin the bilateral MCA M1-M2 segments without flow limiting stenosis Anterior cerebral arteries: Normal flow-related enhancement within the bilateral ANGELICA A1- A2 segments without flow limiting stenosisBasilar system: Normal flow-related enhancement within the bilateral V4 segments and the basilar artery without flow-limiting stenosis Posterior cerebral arteries: Normal flow-related enhancement withinthe bilateral FALAFEL CART COOK P1-P2 segments without flow-limiting stenosis. Bilateral functional type suspender cutter.Additional findings: None. MRA NECK:Common carotid arteries: Unremarkable. [...] MDReport Verified Date/Time: 12/08/2018 19:23:05 Reading Location: [address] Neuro Reading Room MR, MRA, NECK, WITHOUT IV [id number] 19:23:00FINAL REPORT MR, BRAIN, WITHOUT CONTRAST, MR, MRA, BRAIN, WITHOUT CONTRAST, MR,MRA, NECK, WITHOUT IV CONTRAST INDICATION: StrokeStroke TECHNIQUE: [...] Orbits are within normal limits. No obstructive paran jennifer sinus disease. Additional findings: Bilateral T2 hyperintense parotid lesions, with the right measuring 2 cm and the right measuring 1.8 cm. MRA BRAIN:Internal carotid arteries: Normal flow related enhancement without flow- limiting stenosisMiddle cerebral arteries: Normal flow related enhancementwithin the bilateral MCA M1-M2 segments without flow limiting stenosis Anterior cerebral arteries: Normal flow-related enhancement within the bilateral ANGELICA A1- A2 segments without flow limiting stenosisBasilar system: Normal flow-related enhancement within the bilateral V4 segments and the basilar artery without flow-limiting stenosis Posterior cerebral arteries: Normal flow-related enhancement withinthe bilateral FALAFEL CART COOK P1-P2 segments without flow-limiting stenosis. Bilateral functional type suspender cutter.Additional findings: None. MRA NECK:Common carotid arteries: Unremarkable. [...] MDReport Verified Date/Time: 12/08/2018 19:23:05 Reading Location: [address] Neuro Reading Room MR, MRA, BRAIN, WITHOUT [id number] 19:23:00Reason for exam:->StrokeWhat is the patient's sedation requirement?->No SedationFINAL REPORT MR, BRAIN, WITHOUT CONTRAST, MR, MRA, BRAIN, WITHOUT CONTRAST, MR,MRA, NECK, WITHOUT IV CONTRAST INDICATION: StrokeStroke TECHNIQUE: [...] Orbits are within normal limits. No obstructive paran jennifer sinus disease. Additional findings: Bilateral T2 hyperintense parotid lesions, with the right measuring 2 cm and the right measuring 1.8 cm. MRA BRAIN:Internal carotid arteries: Normal flow related enhancement without flow- limiting stenosisMiddle cerebral arteries: Normal flow related enhancementwithin the bilateral MCA M1-M2 segments without flow limiting stenosis Anterior cerebral arteries: Normal flow-related enhancement within the bilateral ANGELICA A1- A2 segments without flow limiting stenosisBasilar system: Normal flow-related enhancement within the bilateral V4 segments and the basilar artery without flow-limiting stenosis Posterior cerebral arteries: Normal flow-related enhancement withinthe bilateral FALAFEL CART COOK P1-P2 segments without flow-limiting stenosis. Bilateral functional type suspender cutter.Additional findings: None. MRA NECK:Common carotid arteries: Unremarkable. [...] MDReport Verified Date/Time: 12/08/2018 19:23:05 Reading Location: [address] Neuro Reading Room -GLUCOSE [id number] 19:03:00 Test Item Value Reference Range Interpretation Comments POC-GLUCOSE METER 158 mg/dL 70-[address] [facility] 67[address] (BEAKER) (test code = [place] 1538) [address] [id number] 17:33:00 Test Item Value Reference Range Interpretation Comments POTASSIUM (BEAKER) (test code = 4.0 meq/L 3.5-5.1 379) [id number] 17:33:00 Test Item Value Reference Range Interpretation Comments MAGNESIUM (BEAKER) (test code = 2.4 mg/dL 1.6-2.6 627) [id number] 14:55:00 Test Item Value Reference Range Interpretation Comments RPR SCREEN (BEAKER) (test code = Nonreactive Nonreactive 420) [id number] 12:28:00 Test Item Value Reference Range Interpretation Comments POTASSIUM (BEAKER) (test code = 2.9 meq/L 3.5-5.1 L 379) TROPONIN [id number] 10:59:00 Test Item Value Reference Range Interpretation [...] failure, acidosis, acute neurological disease, and persistent tachyarrhythmia.[id number] 10:50:00 Test Item Value Reference Range Interpretation Comments MAGNESIUM (BEAKER) (test code = 1.8 mg/dL 1.6-2.6 627) HEMOGLOBIN [id number] 07:49:00 Test Item Value Reference Range Interpretation Comments HEMOGLOBIN A1C (BEAKER) (test code = 8.1 % 4.3-6.1 H 368) HIV-1 ANTIGEN WITH HIV-1/2 [id number] 06:03:00 Test Item Value Reference Range Interpretation Comments HIV-1 ANTIGEN WITH HIV 1\\T\\2 Nonreactive Nonreactive ANTIBODY (2) (BEAKER) (test code = 2586) [id number] 05:54:00 Test Item Value Reference Range Interpretation Comments POTASSIUM (BEAKER) (test code = 2.8 meq/L 3.5-5.1 L 379) VITAMIN B12 AND [id number] 03:31:00 Test Item Value Reference Range Interpretation Comments VITAMIN B12 (BEAKER) (test code = 1168 pg/mL 213-816 H 774) FOLATE (BEAKER) (test code = 362) > ng/mL >=7.0 TSH/FREE T4 IF [id number] 03:24:00 Test Item Value Reference Range Interpretation Comments THYROID STIMULATING HORMONE 2.19 uIU/mL 0.35-4.94 (BEAKER) (test code = 772) BASIC METABOLIC [id number] 02:06:00 Test Item Value Reference Range Interpretation [...] m DATA TO CALCULA TE ESTIMATED GFR. [id number] 02:04:00 Test Item Value Reference Range Interpretation Comments MAGNESIUM (BEAKER) 1.5 mg/dL 1.6-2.6 L Specimen slightly (test code = 627) hemolyzed FastingLIPID [id number] 02:04:00 Test Item Value Reference Range Interpretation [...] High >=190 FastingCBC W/PLT COUNT & AUTO [id number] 01:36:00 Test Item Value Reference Range Interpretation [...] 0-1 PERCENT (BEAKER) (test code = 2801) [id number] 23:06:00 Test Item Value Reference Range Interpretation Comments ETHANOL (BEAKER) (test code = 400) < mg/dL <=10 TROPONIN [id number] 22:58:00 Test Item Value Reference Range Interpretation [...] acute neurological disease, and persistent tachyarrhythmia.BASIC METABOLIC [id number] 22:56:00 Test Item Value Reference Range Interpretation [...] DATA TO CALCULA TE ESTIMATED GFR. URINALYSIS [id number] 22:41:00 Test Item Value Reference Range Interpretation Comments RBC UA (BEAKER) (test code = 519) 1 /HPF WBC UA (BEAKER) (test code = 520) < /HPF SQUAMOUS EPITHELIAL (BEAKER) (test 7 /HPF code = 516) HYALINE CASTS (BEAKER) (test code = 2 /LPF 514) URINALYSIS WITH MICROSCOPIC IF [id number] 22:36:00 Test Item Value Reference Range Interpretation [...] H = 463) SOURCE(BEAKER) (test code = 9585) BASIC METABOLIC [id number] 19:01:00 Test Item Value Reference Range Interpretation [...] m DATA TO CALCULA TE ESTIMATED GFR. [id number] 19:01:00 Test Item Value Reference Range Interpretation Comments MAGNESIUM (BEAKER) (test code = 0.7 mg/dL 1.6-2.6 LL 627) [id number] 18:58:00 Test Item Value Reference Range Interpretation Comments PHOSPHORUS (BEAKER) (test code = 3.3 mg/dL 2.3-4.7 604) HEPATIC FUNCTION [id number] 18:58:00 Test Item Value Reference Range Interpretation [...] (test code = 36 U/L 6-55 347) COMPREHENSIVE METABOLIC [id number] 00:00:00 Test Item Value Reference Range Interpretation Comments GLUCOSE (test code = 2217) 206 MG/DL BUN (test code = 2208) 10 MG/DL CREATININE (test code = 2214) 0.83 MG/DL eGFR AMER. (test code 89 ML/MIN/1.73 = 70620) eGFR NON- AMER. (test 77 ML/MIN/1.73 code = 05996) CALC BUN/CREAT (test code = 12 RATIO 2235) SODIUM (test code = 2231) 138 MEQ/L POTASSIUM (test code = 2228) 3.6 MEQ/L CHLORIDE (test code = 2215) 89 MEQ/L CARBON DIOXIDE (test code = 28 MEQ/L 2206) CALCIUM (test code = 2209) 10.5 MG/DL PROTEIN, TOTAL (test code = 8.5 G/DL 222) ALBUMIN (test code = 2201) 5.4 G/DL CALC GLOBULIN (test code = 3.1 G/DL 2240) CALC A/G RATIO (test code = 1.7 RATIO 2234) BILIRUBIN, TOTAL (test code = 1.1 MG/DL 2206) ALKALINE PHOSPHATASE (test 75 U/L code = 2204) AST (test code = 2218) 35 U/L ALT (test code = 2219) 32 U/L COMPREHENSIVE METABOLIC [id number] 00:00:00 Test Item Value Reference Range Interpretation Comments GLUCOSE (test code = 2217) 206 MG/DL BUN (test code = 2208) 10 MG/DL CREATININE (test code = 2214) 0.83 MG/DL eGFR AMER. (test code 89 ML/MIN/1.73 = 05866) eGFR NON- AMER. (test 77 ML/MIN/1.73 code = 90387) CALC BUN/CREAT (test code = 12 RATIO 2235) SODIUM (test code = 2231) 138 MEQ/L POTASSIUM (test code = 2228) 3.6 MEQ/L CHLORIDE (test code = 2215) 89 MEQ/L CARBON DIOXIDE (test code = 28 MEQ/L 2206) CALCIUM (test code = 2209) 10.5 MG/DL PROTEIN, TOTAL (test code = 8.5 G/DL 2229) ALBUMIN (test code = 2201) 5.4 G/DL CALC GLOBULIN (test code = 3.1 G/DL 2240) CALC A/G RATIO (test code = 1.7 RATIO 2234) BILIRUBIN, TOTAL (test code = 1.1 MG/DL 220) ALKALINE PHOSPHATASE (test 75 U/L code = 2204) AST (test code = 2218) 35 U/L ALT (test code = 2219) 32 U/L LIPID [id number] 00:00:00 Test Item Value Reference Range Interpretation Comments CHOLESTEROL (test code = 2210) 420 MG/DL TRIGLYCERIDES (test code = 2232) 262 MG/DL HDL CHOLESTEROL (test code = 2220) 95 MG/DL CALC LDL CHOL (test code = 2237) 273 MG/DL RISK RATIO LDL/HDL (test code = 2.87 RATIO 2238) LIPID [id number] 00:00:00 Test Item Value Reference Range Interpretation Comments CHOLESTEROL (test code = 2210) 420 MG/DL TRIGLYCERIDES (test code = 2232) 262 MG/DL HDL CHOLESTEROL (test code = 2220) 95 MG/DL CALC LDL CHOL (test code = 2237) 273 MG/DL RISK RATIO LDL/HDL (test code = 2.87 RATIO 2238) CBC W/AUTO [id number] 00:00:00 Test Item Value Reference Range Interpretation Comments WBC (test code = 1001) 9.4 K/UL RBC (test code = 1002) 4.63 M/UL HEMOGLOBIN (test code = 1003) 16.6 G/DL HEMATOCRIT (test code = 1004) 45.2 % MCV (test code = 1005) 97.6 fL MCH (test code = 1006) 35.9 PG MCHC (test code = 1007) 36.7 G/DL RDW (test code = 1038) 12.6 % NEUTROPHILS (test code = 1008) 75.9 % LYMPHOCYTES (test code = 1010) 17.0 % MONOCYTES (test code = 1011) 6.5 % EOSINOPHILS (test code = 1012) 0.2 % BASOPHILS (test code = 1013) 0.4 % PLATELET COUNT (test code = 1015) 330 K/UL CBC W/AUTO [id number] 00:00:00 Test Item Value Reference Range Interpretation Comments WBC (test code = 1001) 9.4 K/UL RBC (test code = 1002) 4.63 M/UL HEMOGLOBIN (test code = 1003) 16.6 G/DL HEMATOCRIT (test code = 1004) 45.2 % MCV (test code = 1005) 97.6 fL MCH (test code = 1006) 35.9 PG MCHC (test code = 1007) 36.7 G/DL RDW (test code = 1038) 12.6 % NEUTROPHILS (test code = 1008) 75.9 % LYMPHOCYTES (test code = 1010) 17.0 % MONOCYTES (test code = 1011) 6.5 % EOSINOPHILS (test code = 1012) 0.2 % BASOPHILS (test code = 1013) 0.4 % PLATELET COUNT (test code = 1015) 330 K/UL CBC W/AUTO [id number] 00:00:00 Test Item Value Reference Range Interpretation Comments WBC (test code = 1001) 9.4 K/UL RBC (test code = 1002) 4.63 M/UL HEMOGLOBIN (test code = 1003) 16.6 G/DL HEMATOCRIT (test code = 1004) 45.2 % MCV (test code = 1005) 97.6 fL MCH (test code = 1006) 35.9 PG MCHC (test code = 1007) 36.7 G/DL RDW (test code = 1038) 12.6 % NEUTROPHILS (test code = 1008) 75.9 % LYMPHOCYTES (test code = 1010) 17.0 % MONOCYTES (test code = 1011) 6.5 % EOSINOPHILS (test code = 1012) 0.2 % BASOPHILS (test code = 1013) 0.4 % PLATELET COUNT (test code = 1015) 330 K/UL [id number] 00:00:00 Test Item Value Reference Range Interpretation Comments AMYLASE (test code = 2205) 48 U/L [id number] 00:00:00 Test Item Value Reference Range Interpretation Comments AMYLASE (test code = 2205) 48 U/L [id number] 00:00:00 Test Item Value Reference Range Interpretation Comments LIPASE (test code = 2058) 69 U/L [id number] 00:00:00 Test Item Value Reference Range Interpretation Comments LIPASE (test code = 205) 69 U/L [id number] 00:00:00 Test Item Value Reference Range Interpretation Comments LIPASE (test code = 2058) 69 U/L LIPID [id number] 00:00:00 Test Item Value Reference Range Interpretation Comments CHOLESTEROL (test code = 2210) 283 MG/DL TRIGLYCERIDES (test code = 2232) 206 MG/DL HDL CHOLESTEROL (test code = 2220) 86 MG/DL CALC LDL CHOL (test code = 2237) 156 MG/DL RISK RATIO LDL/HDL (test code = 1.81 RATIO 2238) LIPID [id number] 00:00:00 Test Item Value Reference Range Interpretation Comments CHOLESTEROL (test code = 2210) 283 MG/DL TRIGLYCERIDES (test code = 2232) 206 MG/DL HDL CHOLESTEROL (test code = 2220) 86 MG/DL CALC LDL CHOL (test code = 2237) 156 MG/DL RISK RATIO LDL/HDL (test code = 1.81 RATIO 2238) HEMOGLOBIN [id number] 00:00:00 Test Item Value Reference Range Interpretation Comments HEMOGLOBIN A1c (test code = 20483) 6.9 % HEMOGLOBIN [id number] 00:00:00 Test Item Value Reference Range Interpretation Comments HEMOGLOBIN A1c (test code = 44087) 6.9 % HEMOGLOBIN [id number] 00:00:00 Test Item Value Reference Range Interpretation Comments HEMOGLOBIN A1c (test code = 76816) 6.9 % COMPREHENSIVE METABOLIC [id number] 00:00:00 Test Item Value Reference Range Interpretation Comments GLUCOSE (test code = 2217) 131 MG/DL BUN (test code = 2208) 15 MG/DL CREATININE (test code = 2214) 1.01 MG/DL eGFR AMER. (test code 71 ML/MIN/1.73 = 94271) eGFR NON- AMER. (test 61 ML/MIN/1.73 code = 03287) CALC BUN/CREAT (test code = 15 RATIO 2235) SODIUM (test code = 2231) 141 MEQ/L POTASSIUM (test code = 2228) 3.8 MEQ/L CHLORIDE (test code = 2215) 99 MEQ/L CARBON DIOXIDE (test code = 27 MEQ/L 2205) CALCIUM (test code = 2209) 9.9 MG/DL PROTEIN, TOTAL (test code = 7.4 G/DL 2228) ALBUMIN (test code = 2201) 4.6 G/DL CALC GLOBULIN (test code = 2.8 G/DL 2239) CALC A/G RATIO (test code = 1.6 RATIO 223) BILIRUBIN, TOTAL (test code = 0.4 MG/DL 2206) ALKALINE PHOSPHATASE (test 66 U/L code = 2204) AST (test code = 2218) 51 U/L ALT (test code = 2219) 37 U/L COMPREHENSIVE METABOLIC [id number] 00:00:00 Test Item Value Reference Range Interpretation Comments GLUCOSE (test code = 2217) 131 MG/DL BUN (test code = 2208) 15 MG/DL CREATININE (test code = 2214) 1.01 MG/DL eGFR AMER. (test code 71 ML/MIN/1.73 = 79876) eGFR NON- AMER. (test 61 ML/MIN/1.73 code = 86107) CALC BUN/CREAT (test code = 15 RATIO 2235) SODIUM (test code = 2231) 141 MEQ/L POTASSIUM (test code = 2228) 3.8 MEQ/L CHLORIDE (test code = 2215) 99 MEQ/L CARBON DIOXIDE (test code = 27 MEQ/L 2205) CALCIUM (test code = 2209) 9.9 MG/DL PROTEIN, TOTAL (test code = 7.4 G/DL 2228) ALBUMIN (test code = 2201) 4.6 G/DL CALC GLOBULIN (test code = 2.8 G/DL 2239) CALC A/G RATIO (test code = 1.6 RATIO 4) BILIRUBIN, TOTAL (test code = 0.4 MG/DL 2206) ALKALINE PHOSPHATASE (test 66 U/L code = 2204) AST (test code = 2218) 51 U/L ALT (test code = 2219) 37 U/L HEMOGLOBIN [id number] 00:00:00 Test Item Value Reference Range Interpretation Comments HEMOGLOBIN A1c (test code = 18040) 6.5 % HEMOGLOBIN [id number] 00:00:00 Test Item Value Reference Range Interpretation Comments HEMOGLOBIN A1c (test code = 73503) 6.5 % HEMOGLOBIN [id number] 00:00:00 Test Item Value Reference Range Interpretation Comments HEMOGLOBIN A1c (test code = 98788) 6.5 % CBC W/AUTO [id number] 00:00:00 Test Item Value Reference Range Interpretation Comments WBC (test code = 1001) 7.7 K/UL RBC (test code = 1002) 4.08 M/UL HEMOGLOBIN (test code = 1003) 14.1 G/DL HEMATOCRIT (test code = 1004) 40.9 % MCV (test code = 1005) 100.2 fL MCH (test code = 1006) 34.6 PG MCHC (test code = 1007) 34.5 G/DL RDW (test code = 1038) 12.5 % NEUTROPHILS (test code = 1008) 64.6 % LYMPHOCYTES (test code = 1010) 27.9 % MONOCYTES (test code = 1011) 5.2 % EOSINOPHILS (test code = 1012) 2.0 % BASOPHILS (test code = 1013) 0.3 % PLATELET COUNT (test code = 1015) 291 K/UL CBC W/AUTO [id number] 00:00:00 Test Item Value Reference Range Interpretation Comments WBC (test code = 1001) 7.7 K/UL RBC (test code = 1002) 4.08 M/UL HEMOGLOBIN (test code = 1003) 14.1 G/DL HEMATOCRIT (test code = 1004) 40.9 % MCV (test code = 1005) 100.2 fL MCH (test code = 1006) 34.6 PG MCHC (test code = 1007) 34.5 G/DL RDW (test code = 1038) 12.5 % NEUTROPHILS (test code = 1008) 64.6 % LYMPHOCYTES (test code = 1010) 27.9 % MONOCYTES (test code = 1011) 5.2 % EOSINOPHILS (test code = 1012) 2.0 % BASOPHILS (test code = 1013) 0.3 % PLATELET COUNT (test code = 1015) 291 K/UL CBC W/AUTO [id number] 00:00:00 Test Item Value Reference Range Interpretation Comments WBC (test code = 1001) 7.7 K/UL RBC (test code = 1002) 4.08 M/UL HEMOGLOBIN (test code = 1003) 14.1 G/DL HEMATOCRIT (test code = 1004) 40.9 % MCV (test code = 1005) 100.2 fL MCH (test code = 1006) 34.6 PG MCHC (test code = 1007) 34.5 G/DL RDW (test code = 1038) 12.5 % NEUTROPHILS (test code = 1008) 64.6 % LYMPHOCYTES (test code = 1010) 27.9 % MONOCYTES (test code = 1011) 5.2 % EOSINOPHILS (test code = 1012) 2.0 % BASOPHILS (test code = 1013) 0.3 % PLATELET COUNT (test code = 1015) 291 K/UL COMPREHENSIVE METABOLIC [id number] 00:00:00 Test Item Value Reference Range Interpretation Comments GLUCOSE (test code = 2217) 133 MG/DL BUN (test code = 2208) 9 MG/DL CREATININE (test code = 2214) 0.67 MG/DL eGFR AMER. (test code 113 ML/MIN/1.73 = 52380) eGFR NON- AMER. (test 98 ML/MIN/1.73 code = 62707) CALC BUN/CREAT (test code = 13 RATIO 2235) SODIUM (test code = 2231) 139 MEQ/L POTASSIUM (test code = 2228) 4.3 MEQ/L CHLORIDE (test code = 2215) 99 MEQ/L CARBON DIOXIDE (test code = 24 MEQ/L 220) CALCIUM (test code = 2209) 9.8 MG/DL PROTEIN, TOTAL (test code = 7.2 G/DL 2228) ALBUMIN (test code = 2201) 4.8 G/DL CALC GLOBULIN (test code = 2.4 G/DL 2240) CALC A/G RATIO (test code = 2.0 RATIO 2234) BILIRUBIN, TOTAL (test code = 0.2 MG/DL 2206) ALKALINE PHOSPHATASE (test 60 U/L code = 2204) AST (test code = 2218) 34 U/L ALT (test code = 2219) 42 U/L COMPREHENSIVE METABOLIC [id number] 00:00:00 Test Item Value Reference Range Interpretation Comments GLUCOSE (test code = 2217) 133 MG/DL BUN (test code = 2208) 9 MG/DL CREATININE (test code = 2214) 0.67 MG/DL eGFR AMER. (test code 113 ML/MIN/1.73 = 41345) eGFR NON- AMER. (test 98 ML/MIN/1.73 code = 81734) CALC BUN/CREAT (test code = 13 RATIO 2235) SODIUM (test code = 2231) 139 MEQ/L POTASSIUM (test code = 2228) 4.3 MEQ/L CHLORIDE (test code = 2215) 99 MEQ/L CARBON DIOXIDE (test code = 24 MEQ/L 2206) CALCIUM (test code = 2209) 9.8 MG/DL PROTEIN, TOTAL (test code = 7.2 G/DL 2228) ALBUMIN (test code = 2201) 4.8 G/DL CALC GLOBULIN (test code = 2.4 G/DL 0) CALC A/G RATIO (test code = 2.0 RATIO 2234) BILIRUBIN, TOTAL (test code = 0.2 MG/DL 2206) ALKALINE PHOSPHATASE (test 60 U/L code = 2204) AST (test code = 2218) 34 U/L ALT (test code = 2219) 42 U/L LIPID [id number] 00:00:00 Test Item Value Reference Range Interpretation Comments CHOLESTEROL (test code = 2210) 234 MG/DL TRIGLYCERIDES (test code = 2232) 216 MG/DL HDL CHOLESTEROL (test code = 2220) 56 MG/DL CALC LDL CHOL (test code = 2237) 135 MG/DL RISK RATIO LDL/HDL (test code = 2.41 RATIO 2238) LIPID [id number] 00:00:00 Test Item Value Reference Range Interpretation Comments CHOLESTEROL (test code = 2210) 234 MG/DL TRIGLYCERIDES (test code = 2232) 216 MG/DL HDL CHOLESTEROL (test code = 2220) 56 MG/DL CALC LDL CHOL (test code = 2237) 135 MG/DL RISK RATIO LDL/HDL (test code = 2.41 RATIO 2238) THYROID II PROFILE (T3U, T4, T7, TSH)[id number] 00:00:00 Test Item Value Reference Range Interpretation Comments T3 UPTAKE (test code = 2817) 28.9 % T4 (THYROXINE) (test code = 2819) 6.1 UG/DL CALCULATED T7 (FTI) (test code = 1.76 2820) TSH (test code = 2821) 2.8 UIU/ML THYROID II PROFILE (T3U, T4, T7, TSH)[id number] 00:00:00 Test Item Value Reference Range Interpretation Comments T3 UPTAKE (test code = 2817) 28.9 % T4 (THYROXINE) (test code = 2819) 6.1 UG/DL CALCULATED T7 (FTI) (test code = 1.76 2820) TSH (test code = 2821) 2.8 UIU/ML COMPREHENSIVE METABOLIC [id number] 00:00:00 Test Item Value Reference Range Interpretation Comments GLUCOSE (test code = 2217) 131 MG/DL BUN (test code = 2208) 16 MG/DL CREATININE (test code = 2214) 1.66 MG/DL eGFR AMER. (test code 40 ML/MIN/1.73 = 42032) eGFR NON- AMER. (test 34 ML/MIN/1.73 code = 82966) CALCULATED BUN/CREAT (test 10 RATIO code = 2235) SODIUM (test code = 2231) 138 MEQ/L POTASSIUM (test code = 2228) 4.2 MEQ/L CHLORIDE (test code = 2215) 98 MEQ/L CARBON DIOXIDE (test code = 25 MEQ/L 220) CALCIUM (test code = 2209) 10.4 MG/DL PROTEIN, TOTAL (test code = 7.6 G/DL 2228) ALBUMIN (test code = 2201) 4.9 G/DL CALCULATED GLOBULIN (test code 2.7 G/DL = 2240) CALCULATED A/G RATIO (test 1.8 RATIO code = 2234) BILIRUBIN, TOTAL (test code = 1.0 MG/DL 2206) ALKALINE PHOSPHATASE (test 55 U/L code = 2204) SGOT (AST) (test code = 2218) 50 U/L SGPT (ALT) (test code = 2219) 46 U/L COMPREHENSIVE METABOLIC [id number] 00:00:00 Test Item Value Reference Range Interpretation Comments GLUCOSE (test code = 2217) 131 MG/DL BUN (test code = 2208) 16 MG/DL CREATININE (test code = 2214) 1.66 MG/DL eGFR AMER. (test code 40 ML/MIN/1.73 = 58416) eGFR NON- AMER. (test 34 ML/MIN/1.73 code = 84132) CALCULATED BUN/CREAT (test 10 RATIO code = 2235) SODIUM (test code = 2231) 138 MEQ/L POTASSIUM (test code = 2228) 4.2 MEQ/L CHLORIDE (test code = 2215) 98 MEQ/L CARBON DIOXIDE (test code = 25 MEQ/L 220) CALCIUM (test code = 2209) 10.4 MG/DL PROTEIN, TOTAL (test code = 7.6 G/DL 2228) ALBUMIN (test code = 2201) 4.9 G/DL CALCULATED GLOBULIN (test code 2.7 G/DL = 2240) CALCULATED A/G RATIO (test 1.8 RATIO code = 2234) BILIRUBIN, TOTAL (test code = 1.0 MG/DL 2206) ALKALINE PHOSPHATASE (test 55 U/L code = 2204) SGOT (AST) (test code = 2218) 50 U/L SGPT (ALT) (test code = 2219) 46 U/L LIPID [id number] 00:00:00 Test Item Value Reference Range Interpretation Comments CHOLESTEROL (test code = 2210) 230 MG/DL TRIGLYCERIDES (test code = 2232) 226 MG/DL HDL CHOLESTEROL (test code = 2220) 53 MG/DL CALCULATED LDL CHOL (test code = 132 MG/DL 2237) RISK RATIO LDL/HDL (test code = 2.49 RATIO 2238) LIPID [id number] 00:00:00 Test Item Value Reference Range Interpretation Comments CHOLESTEROL (test code = 2210) 230 MG/DL TRIGLYCERIDES (test code = 2232) 226 MG/DL HDL CHOLESTEROL (test code = 2220) 53 MG/DL CALCULATED LDL CHOL (test code = 132 MG/DL 2237) RISK RATIO LDL/HDL (test code = 2.49 RATIO 2238) CBC W/AUTO [id number] 00:00:00 Test Item Value Reference Range Interpretation Comments WBC (test code = 1001) 7.9 K/UL RBC (test code = 1002) 4.22 M/UL HEMOGLOBIN (test code = 1003) 14.2 G/DL HEMATOCRIT (test code = 1004) 41.9 % MCV (test code = 1005) 99.3 fL MCH (test code = 1006) 33.6 PG MCHC (test code = 1007) 33.9 G/DL RDW (test code = 1038) 14.2 % NEUTROPHILS (test code = 1008) 76 % LYMPHOCYTES (test code = 1010) 18 % MONOCYTES (test code = 1011) 6 % EOSINOPHILS (test code = 1012) 1 % BASOPHILS (test code = 1013) % PLATELET COUNT (test code = 1015) 108 K/UL CBC W/AUTO [id number] 00:00:00 Test Item Value Reference Range Interpretation Comments WBC (test code = 1001) 7.9 K/UL RBC (test code = 1002) 4.22 M/UL HEMOGLOBIN (test code = 1003) 14.2 G/DL HEMATOCRIT (test code = 1004) 41.9 % MCV (test code = 1005) 99.3 fL MCH (test code = 1006) 33.6 PG MCHC (test code = 1007) 33.9 G/DL RDW (test code = 1038) 14.2 % NEUTROPHILS (test code = 1008) 76 % LYMPHOCYTES (test code = 1010) 18 % MONOCYTES (test code = 1011) 6 % EOSINOPHILS (test code = 1012) 1 % BASOPHILS (test code = 1013) % PLATELET COUNT (test code = 1015) 108 K/UL CBC W/AUTO [id number] 00:00:00 Test Item Value Reference Range Interpretation Comments WBC (test code = 1001) 7.9 K/UL RBC (test code = 1002) 4.22 M/UL HEMOGLOBIN (test code = 1003) 14.2 G/DL HEMATOCRIT (test code = 1004) 41.9 % MCV (test code = 1005) 99.3 fL MCH (test code = 1006) 33.6 PG MCHC (test code = 1007) 33.9 G/DL RDW (test code = 1038) 14.2 % NEUTROPHILS (test code = 1008) 76 % LYMPHOCYTES (test code = 1010) 18 % MONOCYTES (test code = 1011) 6 % EOSINOPHILS (test code = 1012) 1 % BASOPHILS (test code = 1013) % PLATELET COUNT (test code = 1015) 108 K/UL HEMOGLOBIN [id number] 00:00:00 Test Item Value Reference Range Interpretation Comments HEMOGLOBIN A1c (test code = 71611) 6.1 % HEMOGLOBIN [id number] 00:00:00 Test Item Value Reference Range Interpretation Comments HEMOGLOBIN A1c (test code = 05760) 6.1 % HEMOGLOBIN [id number] 00:00:00 Test Item Value Reference Range Interpretation Comments HEMOGLOBIN A1c (test code = 67695) 6.1 % [id number] 00:00:00 Test Item Value Reference Range Interpretation Comments TSH (test code = 2821) 5.7 UIU/ML [id number] 00:00:00 Test Item Value Reference Range Interpretation Comments TSH (test code = 2821) 5.7 UIU/ML [id number] 00:00:00 Test Item Value Reference Range Interpretation Comments TSH (test code = 2821) 5.7 UIU/ML VITAMIN D, 25 [id number] 00:00:00 Test Item Value Reference Range Interpretation Comments VITAMIN D, 25 OH (test code = 4958) 7 NG/ML VITAMIN D, 25 [id number] 00:00:00 Test Item Value Reference Range Interpretation Comments VITAMIN D, 25 OH (test code = 4958) 7 NG/ML VITAMIN B 12 AND FOLIC [id number] 00:00:00 Test Item Value Reference Range Interpretation Comments VITAMIN B-12 (test code = 2840) 569 PG/ML FOLIC ACID (test code = 2695) 16.8 NG/ML VITAMIN B 12 AND FOLIC [id number] 00:00:00 Test Item Value Reference Range Interpretation Comments VITAMIN B-12 (test code = 2840) 569 PG/ML FOLIC ACID (test code = 2695) 16.8 NG/ML COMPREHENSIVE METABOLIC [id number] 00:00:00 Test Item Value Reference Range Interpretation Comments GLUCOSE (test code = 2217) 116 MG/DL BUN (test code = 2208) 14 MG/DL CREATININE (test code = 2214) 0.6 MG/DL eGFR AMER. (test code 125 ML/MIN/1.73 = 71571) eGFR NON- AMER. (test 103 ML/MIN/1.73 code = 63597) CALCULATED BUN/CREAT (test 23 RATIO code = 2235) SODIUM (test code = 2231) 137 MEQ/L POTASSIUM (test code = 2228) 3.3 MEQ/L CHLORIDE (test code = 2215) 100 MEQ/L CARBON DIOXIDE (test code = 20 MEQ/L 2205) CALCIUM (test code = 2209) 9.4 MG/DL PROTEIN, TOTAL (test code = 7.2 G/DL 2228) ALBUMIN (test code = 2201) 4.5 G/DL CALCULATED GLOBULIN (test 2.7 G/DL code = 2240) CALCULATED A/G RATIO (test 1.7 RATIO code = 2234) BILIRUBIN, TOTAL (test code = 0.5 MG/DL 2206) ALKALINE PHOSPHATASE (test 57 U/L code = 2204) SGOT (AST) (test code = 2218) 35 U/L SGPT (ALT) (test code = 2219) 39 U/L COMPREHENSIVE METABOLIC [id number] 00:00:00 Test Item Value Reference Range Interpretation Comments GLUCOSE (test code = 2217) 116 MG/DL BUN (test code = 2208) 14 MG/DL CREATININE (test code = 2214) 0.6 MG/DL eGFR AMER. (test code 125 ML/MIN/1.73 = 19596) eGFR NON- AMER. (test 103 ML/MIN/1.73 code = 80081) CALCULATED BUN/CREAT (test 23 RATIO code = 2235) SODIUM (test code = 2231) 137 MEQ/L POTASSIUM (test code = 2228) 3.3 MEQ/L CHLORIDE (test code = 2215) 100 MEQ/L CARBON DIOXIDE (test code = 20 MEQ/L 2205) CALCIUM (test code = 2209) 9.4 MG/DL PROTEIN, TOTAL (test code = 7.2 G/DL 2228) ALBUMIN (test code = 2201) 4.5 G/DL CALCULATED GLOBULIN (test 2.7 G/DL code = 2240) CALCULATED A/G RATIO (test 1.7 RATIO code = 2234) BILIRUBIN, TOTAL (test code = 0.5 MG/DL 2206) ALKALINE PHOSPHATASE (test 57 U/L code = 2204) SGOT (AST) (test code = 2218) 35 U/L SGPT (ALT) (test code = 2219) 39 U/L LIPID [id number] 00:00:00 Test Item Value Reference Range Interpretation Comments CHOLESTEROL (test code = 2210) 305 MG/DL TRIGLYCERIDES (test code = 2232) 99 MG/DL HDL CHOLESTEROL (test code = 2220) 87 MG/DL CALCULATED LDL CHOL (test code = 198 MG/DL 7) RISK RATIO LDL/HDL (test code = 2.28 RATIO 2238) LIPID [id number] 00:00:00 Test Item Value Reference Range Interpretation Comments CHOLESTEROL (test code = 2210) 305 MG/DL TRIGLYCERIDES (test code = 2232) 99 MG/DL HDL CHOLESTEROL (test code = 2220) 87 MG/DL CALCULATED LDL CHOL (test code = 198 MG/DL 2237) RISK RATIO LDL/HDL (test code = 2.28 RATIO 2238) [id number] 00:00:00 Test Item Value Reference Range Interpretation Comments TSH (test code = 2821) 1.4 UIU/ML [id number] 00:00:00 Test Item Value Reference Range Interpretation Comments TSH (test code = 2821) 1.4 UIU/ML [id number] 00:00:00 Test Item Value Reference Range Interpretation Comments TSH (test code = 2821) 1.4 UIU/ML CBC W/AUTO [id number] 00:00:00 Test Item Value Reference Range Interpretation Comments WBC (test code = 1001) 5.1 K/UL RBC (test code = 1002) 3.96 M/UL HEMOGLOBIN (test code = 1003) 13.5 G/DL HEMATOCRIT (test code = 1004) 39.0 % MCV (test code = 1005) 98.5 fL MCH (test code = 1006) 34.1 PG MCHC (test code = 1007) 34.6 G/DL RDW (test code = 1038) 14.7 % NEUTROPHILS (test code = 1008) 61 % LYMPHOCYTES (test code = 1010) 30 % MONOCYTES (test code = 1011) 8 % EOSINOPHILS (test code = 1012) 1 % BASOPHILS (test code = 1013) % PLATELET COUNT (test code = 1015) 240 K/UL CBC W/AUTO [id number] 00:00:00 Test Item Value Reference Range Interpretation Comments WBC (test code = 1001) 5.1 K/UL RBC (test code = 1002) 3.96 M/UL HEMOGLOBIN (test code = 1003) 13.5 G/DL HEMATOCRIT (test code = 1004) 39.0 % MCV (test code = 1005) 98.5 fL MCH (test code = 1006) 34.1 PG MCHC (test code = 1007) 34.6 G/DL RDW (test code = 1038) 14.7 % NEUTROPHILS (test code = 1008) 61 % LYMPHOCYTES (test code = 1010) 30 % MONOCYTES (test code = 1011) 8 % EOSINOPHILS (test code = 1012) 1 % BASOPHILS (test code = 1013) % PLATELET COUNT (test code = 1015) 240 K/UL CBC W/AUTO [id number] 00:00:00 Test Item Value Reference Range Interpretation Comments WBC (test code = 1001) 5.1 K/UL RBC (test code = 1002) 3.96 M/UL HEMOGLOBIN (test code = 1003) 13.5 G/DL HEMATOCRIT (test code = 1004) 39.0 % MCV (test code = 1005) 98.5 fL MCH (test code = 1006) 34.1 PG MCHC (test code = 1007) 34.6 G/DL RDW (test code = 1038) 14.7 % NEUTROPHILS (test code = 1008) 61 % LYMPHOCYTES (test code = 1010) 30 % MONOCYTES (test code = 1011) 8 % EOSINOPHILS (test code = 1012) 1 % BASOPHILS (test code = 1013) % PLATELET COUNT (test code = 1015) 240 K/UL HEMOGLOBIN [id number] 00:00:00 Test Item Value Reference Range Interpretation Comments HEMOGLOBIN A1c (test code = 99386) 6.6 % HEMOGLOBIN [id number] 00:00:00 Test Item Value Reference Range Interpretation Comments HEMOGLOBIN A1c (test code = 32136) 6.6 % HEMOGLOBIN [id number] 00:00:00 Test Item Value Reference Range Interpretation Comments HEMOGLOBIN A1c (test code = 76955) 6.6 % CHEM [id number] 08:47:00 Test Item Value Reference Range Interpretation Comments Lipase Lvl (test code = Lipase Lvl) 545 73-393 [facility] [id number] 08:47:00 Test Item Value Reference Range Interpretation Comments Lipase Lvl (test code = Lipase Lvl) 545 73-393 [facility] [id number] 10:18:00 Test Item Value Reference Range Interpretation Comments Lipase Lvl (test code = Lipase Lvl) 660 73-393 [facility][id number] 10:18:00 Test Item Value Reference Range Interpretation Comments Sodium Lvl (test code = Sodium Lvl) 134 135-145 [facility] HospitalXsuhpneCQMUGQTLJREI2088-12-80 10:18:00 Test Item Value Reference Range Interpretation Comments Potassium Lvl (test code = Potassium 3.5 3.5-5.1 Lvl) [facility] HospitalCtohjagEJNNRDTZWRQH5872-57-86 10:18:00 Test Item Value Reference Range Interpretation Comments Calcium Lvl (test code = Calcium Lvl) 7.8 8.5-10.5 [facility] HospitalUurftcvKMQTXFSADRTN3556-68-51 10:18:00 Test Item Value Reference Range Interpretation Comments Chloride Lvl (test code = Chloride Lvl) 98 95-109 [facility] HospitalQewzfimWNPSBYXTLKJH0921-60-63 10:18:00 Test Item Value Reference Range Interpretation Comments eGFR (test code = eGFR) 72 [facility] HospitalOehgbcuEKIXYBYQTPKG5945-83-37 10:18:00 Test Item Value Reference Range Interpretation Comments Globulin (test code = Globulin) 3.0 2.0-4.0 [facility] Hos[id number] 10:18:00 Test Item Value Reference Range Interpretation Comments A/G Ratio (test code = A/G Ratio) 1.0 0.7-1.6 [facility] Hos[id number] 10:18:00 Test Item Value Reference Range Interpretation Comments AST (test code = AST) 45 See_Comment [Auto mated message] The system which ge nerated this result transmit cristo reference range : <=37. The reference range was not used to interpr et this result as jose l/abnormal. [facility] HospitalStdmnypIUGGBBZPMROT5835-46-26 10:18:00 Test Item Value Reference Range Interpretation Comments ALT (test code = ALT) 57 See_Comment [Auto mated message] The system which ge nerated this result transmit cristo reference range : <=65. The reference range was not used to interpr et this result as jose l/abnormal. [facility] HospitalTweuvroZEAYNSJXHJJB3858-25-13 10:18:00 Test Item Value Reference Range Interpretation Comments Alk Phos (test code = Alk Phos) 49 39-136 [facility] HospitalXnrcmzkXVQKKPOEZSPU7372-93-62 10:18:00 Test Item Value Reference Range Interpretation Comments Bili Total (test code = Bili Total) 0.7 0.2-1.3 [facility] HospitalYbhflmzGLUBZNDYPBTE0604-95-56 10:18:00 Test Item Value Reference Range Interpretation Comments Glucose Lvl (test code = Glucose Lvl) 145 70-99 [facility] HospitalDyokingJVHJANTNISGB5702-14-02 10:18:00 Test Item Value Reference Range Interpretation Comments Creatinine Lvl (test code = Creatinine 0.9 0.5-1.4 Lvl) [facility] HospitalKttzpwfPXDUWDXCCYBS6261-98-26 10:18:00 Test Item Value Reference Range Interpretation Comments BUN (test code = BUN) 12 7-22 [facility] HospitalDulsyqkOGEPGPPMRXJE2450-99-18 10:18:00 Test Item Value Reference Range Interpretation Comments B/C Ratio (test code = B/C Ratio) 13 6-25 [facility] HospitalNsqrkawZWCSNCJVIJLS5670-38-48 10:18:00 Test Item Value Reference Range Interpretation Comments CO2 (test code = CO2) 30 24-32 [facility] HospitalVauwlhyNOKAFDBVLZCW3622-53-40 10:18:00 Test Item Value Reference Range Interpretation Comments Total Protein (test code = Total 6.1 6.4-8.4 Protein) [facility] HospitalMxysgwdRDYRWLNLLFPF1125-62-90 10:18:00 Test Item Value Reference Range Interpretation Comments AGAP (test code = AGAP) 9.5 10.0-20.0 [facility] HospitalZaxaocqXRMHDVWSOUSM8502-90-10 10:18:00 Test Item Value Reference Range Interpretation Comments Albumin Lvl (test code = Albumin Lvl) 3.1 3.5-5.0 [facility] HospitalCynzjrsYHBMYQQXBN6929-41-87 10:18:00 Test Item Value Reference Range Interpretation Comments Eosinophils # (test code 0.2 See_Comment [A utomated message] The = Eosinophils #) system whic h generated this result tra nsmitted reference range : <=0.5. The reference r genesis was not used to int erpret this result as normal/abnormal . [facility] HospitalTgwjtwfVLKHSGFXZJ0776-74-80 10:18:00 Test Item Value Reference Range Interpretation Comments Macrocyte (test code = 2+ *ABN*(10/31/14 Macrocyte) 5:18 AM) [facility] HospitalWtbfdfjBWWWROEACD7026-24-03 10:18:00 Test Item Value Reference Range Interpretation Comments Monocytes # (test code 0.5 See_Comment [Aut omated message] The = Monocytes #) system which generated this result tra nsmitted reference range : <=0.8. The reference r genesis was not used to int erpret this result as normal/abnormal . [facility] HospitalIojenvmVAPRHRRFEX1380-02-28 10:18:00 Test Item Value Reference Range Interpretation Comments Eosinophils (test code = 2.3 See_Comment [A utomated message] The Eosinophils) system which ge nerated this result tra nsmitted reference range : <=4.0. The reference r genesis was not used to int erpret this result as normal/abnormal . [facility] HospitalPvtcyqoZLPMROBHVV8012-73-84 10:18:00 Test Item Value Reference Range Interpretation Comments Lymphocytes # (test code = Lymphocytes 1.2 1.0-5.5 #) [facility] HospitalGxxomlaGAHANSTFWX5552-68-07 10:18:00 Test Item Value Reference Range Interpretation Comments Basophils (test code = 0.3 See_Comment [Aut omated message] The Basophils) system which ge nerated this result tra nsmitted reference range : <=1.0. The reference r genesis was not used to int erpret this result as normal/abnormal . [facility] HospitalToyasfmYSGCUXNFGU5269-47-67 10:18:00 Test Item Value Reference Range Interpretation Comments Segs-Bands # (test code = Segs-Bands #) 6.1 1.5-8.1 [facility] HospitalIihijahOGMVQCXTXF1991-91-22 10:18:00 Test Item Value Reference Range Interpretation Comments Monocytes (test code = Monocytes) 6.1 2.0-12.0 [facility] HospitalJymnmgxUKCQKKUUHZ3479-67-96 10:18:00 Test Item Value Reference Range Interpretation Comments Lymphocytes (test code = Lymphocytes) 15.1 20.0-40.0 [facility] HospitalAtlpscfURUPKNENAU3192-93-81 10:18:00 Test Item Value Reference Range Interpretation Comments Segs (test code = Segs) 76.2 45.0-75.0 [facility] HospitalHinkcqbJOBAPDOQCK2890-67-19 10:18:00 Test Item Value Reference Range Interpretation Comments MCHC (test code = MCHC) 33.9 32.0-36.0 [facility] HospitalYyhfnvkWJAPGAZHGY5865-51-47 10:18:00 Test Item Value Reference Range Interpretation Comments MCV (test code = MCV) 104.7 80.0-98.0 [facility] HospitalJpyxvdlQGZVNSPQSP6153-25-16 10:18:00 Test Item Value Reference Range Interpretation Comments Hct (test code = Hct) 35.5 36.0-48.0 [facility] HospitalTwtpfgxCFYSIHDZPG9026-96-84 10:18:00 Test Item Value Reference Range Interpretation Comments Hgb (test code = Hgb) 12.0 12.0-16.0 [facility]2015-04-30 10:18:00 Test Item Value Reference Range Interpretation Comments Lipase Lvl (test code = Lipase Lvl) 660 7[address]93 [facility] HospitalPdkjagrVEYQPBDTRU0377-29-76 10:18:00 Test Item Value Reference Range Interpretation Comments WBC (test code = WBC) 8.0 3.7-10.4 [facility] HospitalFgbhgibVOPMGDJOMN1769-67-99 10:18:00 Test Item Value Reference Range Interpretation Comments RBC (test code = RBC) 3.39 4.20-5.40 [facility] HospitalTotrrtgXNZUYPOONQ7243-83-65 10:18:00 Test Item Value Reference Range Interpretation Comments Platelet (test code = Platelet) 128 133-450 [facility] HospitalLdlbuizYCBOKUFAKB6852-95-49 10:18:00 Test Item Value Reference Range Interpretation Comments MPV (test code = MPV) 9.5 7.4-10.4 [facility] HospitalYhbdbgxKJYECWILCI7373-23-51 10:18:00 Test Item Value Reference Range Interpretation Comments RDW (test code = RDW) 12.7 11.5-14.5 [facility] HospitalShpkbkrMGVLKPSGXE7231-30-43 10:18:00 Test Item Value Reference Range Interpretation Comments MCH (test code = MCH) 35.5 pg 27.0-31.0 [facility] HospitalOkhlybjFLTWVW8729-01-11 10:18:00 Test Item Value Reference Range Interpretation Comments HDL (test code = HDL) 77 [facility] HospitalMwzsqtzXZQWQL3632-56-97 10:18:00 Test Item Value Reference Range Interpretation Comments Chol (test code = Chol) 172 [facility] HospitalQlqqybtZASHUR2265-41-97 10:18:00 Test Item Value Reference Range Interpretation Comments Trig (test code = Trig) 67 [facility] HospitalYlnpjqeTJWNBI8294-37-63 10:18:00 Test Item Value Reference Range Interpretation Comments LDL (Calculated) (test code = LDL 82 (Calculated)) [facility] HospitalNlmhqmqIPFPKD0913-36-27 10:18:00 Test Item Value Reference Range Interpretation Comments CHD Risk (test code = CHD Risk) 2.23 3.90-5.80 [facility] HospitalJuyzhmaIHPWHVPWDDIC0121-82-60 10:18:00 Test Item Value Reference Range Interpretation Comments Sodium Lvl (test code = Sodium Lvl) 134 135-145 [facility] HospitalCvbrcxeYUEIDG8686-85-60 10:18:00 Test Item Value Reference Range Interpretation Comments VLDL (test code = VLDL) 13 [facility] HospitalGwmoaagLZMYHYFPPBHA4304-25-29 10:18:00 Test Item Value Reference Range Interpretation Comments Potassium Lvl (test code = Potassium 3.5 3.5-5.1 Lvl) [facility] HospitalOjheeorHUXGDYTWKCHI3735-90-68 10:18:00 Test Item Value Reference Range Interpretation Comments Calcium Lvl (test code = Calcium Lvl) 7.8 8.5-10.5 [facility] HospitalOzyywjqCBLPBYCOCZXI4239-60-00 10:18:00 Test Item Value Reference Range Interpretation Comments Chloride Lvl (test code = Chloride Lvl) 98 95-109 [facility] HospitalEumqwwzGJKEOTWQCJVF1160-28-45 10:18:00 Test Item Value Reference Range Interpretation Comments eGFR (test code = eGFR) 72 [facility] HospitalEenphzcWSESBHIAUWUC8036-13-14 10:18:00 Test Item Value Reference Range Interpretation Comments Globulin (test code = Globulin) 3.0 2.0-4.0 [facility] HospitalMhhwoywNZMDHKAYYXJL3145-10-61 10:18:00 Test Item Value Reference Range Interpretation Comments A/G Ratio (test code = A/G Ratio) 1.0 0.7-1.6 [facility] HospitalFmexaeeAZBNLKXAJOSX4567-51-16 10:18:00 Test Item Value Reference Range Interpretation Comments AST (test code = AST) 45 See_Comment [Auto mated message] The system which ge nerated this result transmit cristo reference range : <=37. The reference range was not used to interpr et this result as jose l/abnormal. [facility] HospitalRaormrhCNUNPVLEWLHF8071-37-98 10:18:00 Test Item Value Reference Range Interpretation Comments ALT (test code = ALT) 57 See_Comment [Auto mated message] The system which ge nerated this result transmit cristo reference range : <=65. The reference range was not used to interpr et this result as jose l/abnormal. [facility] HospitalKtjshotXBNPUXNKZBCD7446-27-30 10:18:00 Test Item Value Reference Range Interpretation Comments Alk Phos (test code = Alk Phos) 49 39-136 [facility] HospitalTropdcnLREJEXRLXDXT8258-88-77 10:18:00 Test Item Value Reference Range Interpretation Comments Bili Total (test code = Bili Total) 0.7 0.2-1.3 [facility] HospitalYtpuaadLJORNQKKQEXD7309-30-70 10:18:00 Test Item Value Reference Range Interpretation Comments Glucose Lvl (test code = Glucose Lvl) 145 70-99 [facility] HospitalZdgbskyRAASLJEOQSMD2906-74-82 10:18:00 Test Item Value Reference Range Interpretation Comments Creatinine Lvl (test code = Creatinine 0.9 0.5-1.4 Lvl) [facility] HospitalPhgpglzUQXEAKCAYHZZ4488-69-29 10:18:00 Test Item Value Reference Range Interpretation Comments BUN (test code = BUN) 12 01-22 [facility] HospitalBrwfgmrZARVDMOFUWEZ8128-53-73 10:18:00 Test Item Value Reference Range Interpretation Comments B/C Ratio (test code = B/C Ratio) 13 - [facility] HospitalTxobghhPYMFRBQVSPAT3702-26-73 10:18:00 Test Item Value Reference Range Interpretation Comments CO2 (test code = CO2) 30 [facility] HospitalNefzzbgCUEPKAXWQLGJ0172-59-65 10:18:00 Test Item Value Reference Range Interpretation Comments Total Protein (test code = Total 6.1 6.4-8.4 Protein) [facility] HospitalFqjqguuVXLKINAHRLBA4045-34-69 10:18:00 Test Item Value Reference Range Interpretation Comments AGAP (test code = AGAP) 9.5 10.0-20.0 [facility] HospitalTxrrwplGYELMBHPOMEI5702-27-85 10:18:00 Test Item Value Reference Range Interpretation Comments Albumin Lvl (test code = Albumin Lvl) 3.1 3.5-5.0 [facility] HospitalEljgjwzQGZXMYMJIA6242-01-73 10:18:00 Test Item Value Reference Range Interpretation Comments Eosinophils # (test code 0.2 See_Comment [A utomated message] The = Eosinophils #) system whic h generated this result tra nsmitted reference range : <=0.5. The reference r genesis was not used to int erpret this result as normal/abnormal . [facility] HospitalGlppqdmAVRXATOBNG9888-86-08 10:18:00 Test Item Value Reference Range Interpretation Comments Macrocyte (test code = 2+ *ABN*(10/31/14 Macrocyte) 5:18 AM) [facility] HospitalJqcqxtdYVRVDDEWNB5350-48-58 10:18:00 Test Item Value Reference Range Interpretation Comments Monocytes # (test code 0.5 See_Comment [Aut omated message] The = Monocytes #) system which generated this result tra nsmitted reference range : <=0.8. The reference r genesis was not used to int erpret this result as normal/abnormal . [facility] HospitalQszbpgzKJZRFFJQUL1687-70-20 10:18:00 Test Item Value Reference Range Interpretation Comments Eosinophils (test code = 2.3 See_Comment [A utomated message] The Eosinophils) system which ge nerated this result tra nsmitted reference range : <=4.0. The reference r genesis was not used to int erpret this result as normal/abnormal . [facility] HospitalXrhlniyDWZREZKRLO4915-24-31 10:18:00 Test Item Value Reference Range Interpretation Comments Lymphocytes # (test code = Lymphocytes 1.2 1.0-5.5 #) [facility] HospitalGgeffoaDYXIYZPXOI2809-33-53 10:18:00 Test Item Value Reference Range Interpretation Comments Basophils (test code = 0.3 See_Comment [Aut omated message] The Basophils) system which ge nerated this result tra nsmitted reference range : <=1.0. The reference r genesis was not used to int erpret this result as normal/abnormal . [facility] HospitalYwntlfvSJBRTDNNRX6730-55-84 10:18:00 Test Item Value Reference Range Interpretation Comments Segs-Bands # (test code = Segs-Bands #) 6.1 1.5-8.1 [facility] HospitalYbwuvnhNZFDMJHZVJ8579-48-02 10:18:00 Test Item Value Reference Range Interpretation Comments Monocytes (test code = Monocytes) 6.1 2.0-12.0 [facility] HospitalBqwgsnqFULGPXQKEA6833-04-30 10:18:00 Test Item Value Reference Range Interpretation Comments Lymphocytes (test code = Lymphocytes) 15.1 20.0-40.0 [facility] HospitalLjojvukMIZOPIVULD3655-67-46 10:18:00 Test Item Value Reference Range Interpretation Comments Segs (test code = Segs) 76.2 45.0-75.0 [facility] HospitalCqsyswwXWFWGULJXD5890-37-97 10:18:00 Test Item Value Reference Range Interpretation Comments MCHC (test code = MCHC) 33.9 32.0-36.0 [facility] HospitalRgahhvyCHMBFQQOTN8250-80-87 10:18:00 Test Item Value Reference Range Interpretation Comments MCV (test code = MCV) 104.7 80.0-98.0 [facility] HospitalEbkbwbyMHAAXLDOOF6913-68-71 10:18:00 Test Item Value Reference Range Interpretation Comments Hct (test code = Hct) 35.5 36.0-48.0 [facility] HospitalVboiacpDTTILKMCHR2152-39-51 10:18:00 Test Item Value Reference Range Interpretation Comments Hgb (test code = Hgb) 12.0 12.0-16.0 [facility] HospitalPirauefNEHXLFTKKZ2683-10-64 10:18:00 Test Item Value Reference Range Interpretation Comments WBC (test code = WBC) 8.0 3.7-10.4 [facility] HospitalTwkfaqnZPTWAFASAH1790-37-42 10:18:00 Test Item Value Reference Range Interpretation Comments RBC (test code = RBC) 3.39 4.20-5.40 [facility] HospitalZoudbnfMMRLQORZRP6976-32-59 10:18:00 Test Item Value Reference Range Interpretation Comments Platelet (test code = Platelet) 128 133-450 [facility] HospitalUtpwwvrBALHKSLXWO2518-31-49 10:18:00 Test Item Value Reference Range Interpretation Comments MPV (test code = MPV) 9.5 7.4-10.4 [facility] HospitalOcrxdyzKCTTQNSABH9841-43-55 10:18:00 Test Item Value Reference Range Interpretation Comments RDW (test code = RDW) 12.7 11.5-14.5 [facility] HospitalTmdbozdBBMPIHVIJD0178-36-14 10:18:00 Test Item Value Reference Range Interpretation Comments MCH (test code = MCH) 35.5 pg 27.0-31.0 [facility] HospitalNbutshaNQFERT7481-89-36 10:18:00 Test Item Value Reference Range Interpretation Comments HDL (test code = HDL) 77 [facility] HospitalBqtgxtbHRLCFG4331-48-85 10:18:00 Test Item Value Reference Range Interpretation Comments Chol (test code = Chol) 172 [facility] HospitalDlrgjwcHBARDP5213-55-14 10:18:00 Test Item Value Reference Range Interpretation Comments Trig (test code = Trig) 67 [facility] HospitalJxatbqqPUOEJF7464-74-99 10:18:00 Test Item Value Reference Range Interpretation Comments LDL (Calculated) (test code = LDL 82 (Calculated)) [facility] HospitalWwgehrlWCBLMX4216-59-82 10:18:00 Test Item Value Reference Range Interpretation Comments CHD Risk (test code = CHD Risk) 2.23 3.90-5.80 [facility] HospitalQjaudvxAHVXJQ0777-08-58 10:18:00 Test Item Value Reference Range Interpretation Comments VLDL (test code = VLDL) 13 [facility] HospitalJvbbodkNUUKOSODGS9626-23-84 12:48:00 Test Item Value Reference Range Interpretation Comments Hgb (test code = Hgb) 12.8 12.0-16.0 [facility] HospitalVaujxfrOUIBLBCXSC2491-27-96 12:48:00 Test Item Value Reference Range Interpretation Comments RBC (test code = RBC) 3.56 4.20-5.40 [facility] HospitalVdlyqjkDJSGZYZHGD4691-83-49 12:48:00 Test Item Value Reference Range Interpretation Comments MPV (test code = MPV) 8.3 7.4-10.4 [facility] HospitalHkarhvhLCCMYUKPAQ1104-71-97 12:48:00 Test Item Value Reference Range Interpretation Comments Platelet (test code = Platelet) 163 133-450 [facility] HospitalNfwfhifRIQFIWREDS6843-73-69 12:48:00 Test Item Value Reference Range Interpretation Comments MCV (test code = MCV) 103.3 80.0-98.0 [facility] HospitalXybrayxVXZNXKDXYU6656-57-09 12:48:00 Test Item Value Reference Range Interpretation Comments Hct (test code = Hct) 36.8 36.0-48.0 [facility] HospitalGlrcyqqLZKMXWUVWT7197-04-48 12:48:00 Test Item Value Reference Range Interpretation Comments MCHC (test code = MCHC) 34.9 32.0-36.0 [facility] HospitalAhrbixwWYTDEYUBCP1690-33-39 12:48:00 Test Item Value Reference Range Interpretation Comments MCH (test code = MCH) 36.1 pg 27.0-31.0 [facility] HospitalOnfwysrUCEYHNUNZZ9590-02-32 12:48:00 Test Item Value Reference Range Interpretation Comments WBC (test code = WBC) 7.8 3.7-10.4 [facility]2015-04-29 12:48:00 Test Item Value Reference Range Interpretation Comments Lipase Lvl (test code = Lipase Lvl) 1352 73-393 [facility]2015-04-29 12:48:00 Test Item Value Reference Range Interpretation Comments Alk Phos (test code = Alk Phos) 50 39-136 [facility]2015-04-29 12:48:00 Test Item Value Reference Range Interpretation Comments Bili Total (test code = Bili Total) 1.0 0.2-1.3 [facility]2015-04-29 12:48:00 Test Item Value Reference Range Interpretation Comments Albumin Lvl (test code = Albumin Lvl) 3.6 3.5-5.0 [facility]2015-04-29 12:48:00 Test Item Value Reference Range Interpretation Comments CO2 (test code = CO2) 33 24-32 [facility]2015-04-29 12:48:00 Test Item Value Reference Range Interpretation Comments Total Protein (test code = Total 6.4 6.4-8.4 Protein) [facility]2015-04-29 12:48:00 Test Item Value Reference Range Interpretation Comments ALT (test code = ALT) 84 See_Comment [Auto mated message] The system which ge nerated this result transmit cristo reference range : <=65. The reference range was not used to interpr et this result as jose l/abnormal. [facility]2015-04-29 12:48:00 Test Item Value Reference Range Interpretation Comments AST (test code = AST) 92 See_Comment [Auto mated message] The system which ge nerated this result transmit cristo reference range : <=37. The reference range was not used to interpr et this result as jose l/abnormal. [facility]2015-04-29 12:48:00 Test Item Value Reference Range Interpretation Comments Glucose Lvl (test code = Glucose Lvl) 105 70-99 [facility]2015-04-29 12:48:00 Test Item Value Reference Range Interpretation Comments BUN (test code = BUN) 30 7-22 [facility]2015-04-29 12:48:00 Test Item Value Reference Range Interpretation Comments eGFR (test code = eGFR) 46 [facility]2015-04-29 12:48:00 Test Item Value Reference Range Interpretation Comments Potassium Lvl (test code = Potassium 3.1 3.5-5.1 Lvl) [facility]2015-04-29 12:48:00 Test Item Value Reference Range Interpretation Comments Calcium Lvl (test code = Calcium Lvl) 8.3 8.5-10.5 [facility]2015-04-29 12:48:00 Test Item Value Reference Range Interpretation Comments Chloride Lvl (test code = Chloride Lvl) 96 95-109 [facility]2015-04-29 12:48:00 Test Item Value Reference Range Interpretation Comments Sodium Lvl (test code = Sodium Lvl) 136 135-145 [facility]2015-04-29 12:48:00 Test Item Value Reference Range Interpretation Comments Creatinine Lvl (test code = Creatinine 1.3 0.5-1.4 Lvl) [facility]2015-04-29 12:48:00 Test Item Value Reference Range Interpretation Comments Globulin (test code = Globulin) 2.8 2.0-4.0 [facility]2015-04-29 12:48:00 Test Item Value Reference Range Interpretation Comments A/G Ratio (test code = A/G Ratio) 1.3 0.7-1.6 [facility]2015-04-29 12:48:00 Test Item Value Reference Range Interpretation Comments B/C Ratio (test code = B/C Ratio) 23 6-25 [facility]2015-04-29 12:48:00 Test Item Value Reference Range Interpretation Comments AGAP (test code = AGAP) 10.1 10.0-20.0 [facility] HospitalFnpgztaSLBJHNGBMH6558-79-07 12:48:00 Test Item Value Reference Range Interpretation Comments Macrocyte (test code = 1+ *ABN*(10/30/14 Macrocyte) 7:48 AM) [facility] HospitalKdoqdmnQIVLYTMXLG2866-03-84 12:48:00 Test Item Value Reference Range Interpretation Comments Segs-Bands # (test code = Segs-Bands #) 5.5 1.5-8.1 [facility] HospitalGaclqpvUCUMATOTPK2923-38-37 12:48:00 Test Item Value Reference Range Interpretation Comments Basophils (test code = 0.7 See_Comment [Aut omated message] The Basophils) system which ge nerated this result tra nsmitted reference range : <=1.0. The reference r genesis was not used to int erpret this result as normal/abnormal . [facility] HospitalAhteuouVPCFAXJFFA0259-40-59 12:48:00 Test Item Value Reference Range Interpretation Comments Eosinophils (test code = 1.4 See_Comment [A utomated message] The Eosinophils) system which ge nerated this result tra nsmitted reference range : <=4.0. The reference r genesis was not used to int erpret this result as normal/abnormal . [facility] HospitalDfeytaoVTZZCFDKMC5163-69-75 12:48:00 Test Item Value Reference Range Interpretation Comments Basophils # (test code 0.1 See_Comment [Aut omated message] The = Basophils #) system which generated this result tra nsmitted reference range : <=0.2. The reference r genesis was not used to int erpret this result as normal/abnormal . [facility] HospitalWqntsmpELFPDPBIUH8482-96-08 12:48:00 Test Item Value Reference Range Interpretation Comments Eosinophils # (test code 0.1 See_Comment [A utomated message] The = Eosinophils #) system ic h generated this result tra nsmitted reference range : <=0.5. The reference r genesis was not used to int erpret this result as normal/abnormal . [facility] HospitalYmxrtzyOOVLXODLSN7726-01-40 12:48:00 Test Item Value Reference Range Interpretation Comments Lymphocytes # (test code = Lymphocytes 1.6 1.0-5.5 #) [facility] HospitalJoocvawIABHFOMWQD1002-85-42 12:48:00 Test Item Value Reference Range Interpretation Comments Monocytes # (test code 0.5 See_Comment [Aut omated message] The = Monocytes #) system which generated this result tra nsmitted reference range : <=0.8. The reference r genesis was not used to int erpret this result as normal/abnormal . [facility] HospitalGiizwhpIAJKMXPATE1264-65-06 12:48:00 Test Item Value Reference Range Interpretation Comments Monocytes (test code = Monocytes) 6.7 2.0-12.0 [facility] HospitalPffrsghUXGWWLBZNV8713-03-54 12:48:00 Test Item Value Reference Range Interpretation Comments Monocytes (test code = Monocytes) 6.7 2.0-12.0 [facility] HospitalOubmpadPREYQHLDDA8453-15-67 12:48:00 Test Item Value Reference Range Interpretation Comments Lymphocytes (test code = Lymphocytes) 20.3 20.0-40.0 [facility] HospitalIyqcdeySEHSNGKURG1301-97-63 12:48:00 Test Item Value Reference Range Interpretation Comments Segs (test code = Segs) 70.9 45.0-75.0 [facility] HospitalIpqeinnJTXVTECARP2634-83-91 12:48:00 Test Item Value Reference Range Interpretation Comments RDW (test code = RDW) 12.9 11.5-14.5 [facility] HospitalDotifrtBLXWUDMDLA2237-01-36 12:48:00 Test Item Value Reference Range Interpretation Comments Hgb (test code = Hgb) 12.8 12.0-16.0 [facility] HospitalOtsuhkhDDLVBWGRCH2942-07-89 12:48:00 Test Item Value Reference Range Interpretation Comments RBC (test code = RBC) 3.56 4.20-5.40 [facility] HospitalGivbmfgYEEUFTLUMH8246-87-87 12:48:00 Test Item Value Reference Range Interpretation Comments MPV (test code = MPV) 8.3 7.4-10.4 [facility] HospitalLsjshtbBCNBFOWBMZ7182-32-42 12:48:00 Test Item Value Reference Range Interpretation Comments Platelet (test code = Platelet) 163 133-450 [facility] HospitalVhvirreTZTISJKYPN2641-42-62 12:48:00 Test Item Value Reference Range Interpretation Comments MCV (test code = MCV) 103.3 80.0-98.0 [facility] HospitalEqdpzbrNJSXPUILPI1341-52-07 12:48:00 Test Item Value Reference Range Interpretation Comments Hct (test code = Hct) 36.8 36.0-48.0 [facility] HospitalVgxjyrmJSMSIRCHDA7590-73-06 12:48:00 Test Item Value Reference Range Interpretation Comments MCHC (test code = MCHC) 34.9 32.0-36.0 [facility] HospitalEccuqbvWCJXHVUDLH3136-55-77 12:48:00 Test Item Value Reference Range Interpretation Comments MCH (test code = MCH) 36.1 pg 27.0-31.0 [facility] HospitalHlpaejkFXVYDVDSIL3212-11-29 12:48:00 Test Item Value Reference Range Interpretation Comments WBC (test code = WBC) 7.8 3.7-10.4 [facility]2015-04-29 12:48:00 Test Item Value Reference Range Interpretation Comments Lipase Lvl (test code = Lipase Lvl) 1352 73-393 [facility]2015-04-29 12:48:00 Test Item Value Reference Range Interpretation Comments Alk Phos (test code = Alk Phos) 50 39-136 [facility]2015-04-29 12:48:00 Test Item Value Reference Range Interpretation Comments Bili Total (test code = Bili Total) 1.0 0.2-1.3 [facility]2015-04-29 12:48:00 Test Item Value Reference Range Interpretation Comments Albumin Lvl (test code = Albumin Lvl) 3.6 3.5-5.0 [facility]2015-04-29 12:48:00 Test Item Value Reference Range Interpretation Comments CO2 (test code = CO2) 33 24-32 [facility]2015-04-29 12:48:00 Test Item Value Reference Range Interpretation Comments Total Protein (test code = Total 6.4 6.4-8.4 Protein) [facility]2015-04-29 12:48:00 Test Item Value Reference Range Interpretation Comments ALT (test code = ALT) 84 See_Comment [Auto mated message] The system which ge nerated this result transmit cristo reference range : <=65. The reference range was not used to interpr et this result as jose l/abnormal. [facility]2015-04-29 12:48:00 Test Item Value Reference Range Interpretation Comments AST (test code = AST) 92 See_Comment [Auto mated message] The system which ge nerated this result transmit cristo reference range : <=37. The reference range was not used to interpr et this result as jose l/abnormal. [facility]2015-04-29 12:48:00 Test Item Value Reference Range Interpretation Comments Glucose Lvl (test code = Glucose Lvl) 105 70-99 [facility]2015-04-29 12:48:00 Test Item Value Reference Range Interpretation Comments BUN (test code = BUN) 30 7-22 [facility]2015-04-29 12:48:00 Test Item Value Reference Range Interpretation Comments eGFR (test code = eGFR) 46 [facility]2015-04-29 12:48:00 Test Item Value Reference Range Interpretation Comments Potassium Lvl (test code = Potassium 3.1 3.5-5.1 Lvl) [facility]2015-04-29 12:48:00 Test Item Value Reference Range Interpretation Comments Calcium Lvl (test code = Calcium Lvl) 8.3 8.5-10.5 [place] 750055-04-29 12:48:00 Test Item Value Reference Range Interpretation Comments Chloride Lvl (test code = Chloride Lvl) 96 95-109 [facility]2015-04-29 12:48:00 Test Item Value Reference Range Interpretation Comments Sodium Lvl (test code = Sodium Lvl) 136 135-145 [facility]2015-04-29 12:48:00 Test Item Value Reference Range Interpretation Comments Creatinine Lvl (test code = Creatinine 1.3 0.5-1.4 Lvl) [address]04-29 12:48:00 Test Item Value Reference Range Interpretation Comments Globulin (test code = Globulin) 2.8 2.0-4.0 [facility]2015-04-29 12:48:00 Test Item Value Reference Range Interpretation Comments A/G Ratio (test code = A/G Ratio) 1.3 0.7-1.6 [facility]2015-04-29 12:48:00 Test Item Value Reference Range Interpretation Comments B/C Ratio (test code = B/C Ratio) 23 6-25 [facility]2015-04-29 12:48:00 Test Item Value Reference Range Interpretation Comments AGAP (test code = AGAP) 10.1 10.0-20.0 [facility] HospitalWpbhvlvQLFWMZOXSQ6675-32-29 12:48:00 Test Item Value Reference Range Interpretation Comments Macrocyte (test code = 1+ *ABN*(10/30/14 Macrocyte) 7:48 AM) [facility] HospitalFhhlbdrSTMPNRULNZ9620-65-83 12:48:00 Test Item Value Reference Range Interpretation Comments Segs-Bands # (test code = Segs-Bands #) 5.5 1.5-8.1 [facility] HospitalZctlbzsGCEOBUOAGQ2346-79-98 12:48:00 Test Item Value Reference Range Interpretation Comments Basophils (test code = 0.7 See_Comment [Aut omated message] The Basophils) system which ge nerated this result tra nsmitted reference range : <=1.0. The reference r genesis was not used to int erpret this result as normal/abnormal . [facility] HospitalGlelwbnVQHEAPDOOX9482-42-92 12:48:00 Test Item Value Reference Range Interpretation Comments Eosinophils (test code = 1.4 See_Comment [A utomated message] The Eosinophils) system which ge nerated this result tra nsmitted reference range : <=4.0. The reference r genesis was not used to int erpret this result as normal/abnormal . [facility] HospitalXytkbtuFFWWDZADRL5420-30-56 12:48:00 Test Item Value Reference Range Interpretation Comments Basophils # (test code 0.1 See_Comment [Aut omated message] The = Basophils #) system which generated this result tra nsmitted reference range : <=0.2. The reference r genesis was not used to int erpret this result as normal/abnormal . [facility] HospitalRwgfouhKQKFPPUERY4153-07-68 12:48:00 Test Item Value Reference Range Interpretation Comments Eosinophils # (test code 0.1 See_Comment [A utomated message] The = Eosinophils #) system whic h generated this result tra nsmitted reference range : <=0.5. The reference r genesis was not used to int erpret this result as normal/abnormal . [facility] HospitalZcelzqpJOPEMCUQNL6288-34-96 12:48:00 Test Item Value Reference Range Interpretation Comments Lymphocytes # (test code = Lymphocytes 1.6 1.0-5.5 #) [facility] HospitalNunrccoBHOFTSLCTR9439-99-47 12:48:00 Test Item Value Reference Range Interpretation Comments Monocytes # (test code 0.5 See_Comment [Aut omated message] The = Monocytes #) system which generated this result tra nsmitted reference range : <=0.8. The reference r genesis was not used to int erpret this result as normal/abnormal . [facility] HospitalMcbspolLHLPSBCSBM7228-95-28 12:48:00 Test Item Value Reference Range Interpretation Comments Lymphocytes (test code = Lymphocytes) 20.3 20.0-40.0 [facility] HospitalAtwzvneAJQIOCARWR0219-22-01 12:48:00 Test Item Value Reference Range Interpretation Comments Segs (test code = Segs) 70.9 45.0-75.0 [facility] HospitalLsfvqwuHIOSRNSFLT7581-36-11 12:48:00 Test Item Value Reference Range Interpretation Comments RDW (test code = RDW) 12.9 11.5-14.5 [facility]
[2022-03-28] MEDS ORDERED: THIAMINE 200 MG/2 ML INJ ONE (20:10)
[2022-03-28] MEDS ORDERED: NA CHLORIDE 0.9% 1,000 ML ONE (20:10)
[2022-03-28] MEDS ORDERED: MULTIVITAMINS 10 ML VIAL (INJ) IV ONE (20:11)
[2022-03-28] MEDS ORDERED: FOLIC ACID 5 MG/ML VIAL ONE (20:12)
[2022-03-28] MEDS ORDERED: LORazepam 2 MG/ML VIAL ONE ×2 (20:14→22:26)
[2022-03-28 20:47] LABS: Absolute Lymphocytes (CBC) 1.4 K/uL (0.7-4.9); Hematocrit 41.2 % (36.0-45.0); MCV 104.6 fL (80-100); MPV 8.4 fL (7.6-11.3); RBC Red Blood Cell Count 3.93 M/uL (3.86-4.86)
[2022-03-28 21:08] LABS: Albumin 3.4 g/dL (3.4-5.0); Bilirubin Total 0.8 mg/dL (0.2-1.0); Magnesium 1.5 mg/dL (1.8-2.4); Protein, Total 7.2 g/dL (6.4-8.2); Troponin High Sensitivity 15.2 pg/mL (<58.9)
[2022-03-28 21:23] LABS: Urine Blood Trace-intact (Negative); Urine Glucose Negative (Negative); Urine Protein 2+ (Negative); Urine Specific Gravity >=1.030 (1.005-1.030)
[2022-03-28 21:23] LABS: Potassium 3.6 mmol/L (3.5-5.1)
[2022-03-28 22:03] LABS: Urine Mucus Slight /HPF (None Seen); Urine RBC <5 /HPF (None Seen)
[2022-03-28] MEDS ORDERED: Magnesium Sulfate 2gm IVPB 2 G/50 ML BAG IV ONE (22:26)
--- NOTE | 2022-03-28 23:31 | EDPHYS ---
Physician Documentation [facility] Name: Billie Botello Age: 61 yrs Sex: Female : 1960 Arrival Date: 03/28/2022 Time: 19:43 Bed 6 Private MD: ED Physician Chelsea Sung HPI: 03/28 19:58 This 61 yrs old Female presents to ER via EMS with complaints of low blood pressure. sd2 19:58 61 yo F presents via EMS with CC of low blood pressure and weakness. Pt reports she sd2 checked her BP this morning as she normally would and noted a SBP in the 80s. She did not recheck it and has not taken her BP medications today. She reports feeling weak, tremulous and nauseous today. pt is also normally a daily drinker and drinks 3-4 Rum and cokes daily but has not had a drink in 2 days due to trying to quit. She has never been to detox center or rehab. She denies any fever, CP, SOB, vomiting or diarrhea. BP en route with EMS has been stable along with her other vital signs.. Historical: - Allergies: 19:49 Bactrim; ll3 19:49 Sulfa (Sulfonamide Antibiotics); ll3 19:49 Trazodone; ll3 19:49 TRIMETHOPRIM; ll3 - PMHx: 19:49 Diabetes - NIDDM; etoh abuse; High Cholesterol; Hypertension; Pancreatitis; ll3 - PSHx: 19:49 Appendectomy; left foot; right wrist; section; Tonsillectomy; ll3 - Immunization history:: Client reports receiving the 2nd dose of the Covid vaccine. - Social history:: Smoking status: Patient reports the use of cigarette tobacco products, denies chronic smoking, but will smoke occasionally, Patient uses alcohol, on a daily basis. States its been a few days since last drink. ROS: 19:58 Constitutional: Negative for fever, chills, and weight loss, Eyes: Negative for injury, sd2 pain, redness, and discharge, Cardiovascular: Negative for chest pain, palpitations, and edema, Respiratory: Negative for shortness of breath, cough, wheezing. Abdomen/GI: Negative for abdominal pain, vomiting, diarrhea. Positive for nausea. MS/Extremity: Negative for injury and deformity, Skin: Negative for injury, rash, and discoloration, Neuro: Negative for headache, numbness and tingling. Positive for weakness and tremulousness. Exam: 19:58 Constitutional: This is a well developed, well nourished patient who is awake, alert, sd2 and in no acute distress. Head/Face: Normocephalic, atraumatic. Eyes: EOMI, normal conjunctiva bilaterally Chest/axilla: Normal chest wall appearance and motion. Nontender with no deformity. Cardiovascular: Regular rate and rhythm with a normal S1 and S2. No gallops, murmurs, or rubs. 2+ distal pulses. Respiratory: Lungs have equal breath sounds bilaterally, clear to auscultation and percussion. No rales, rhonchi or wheezes noted. No increased work of breathing, no retractions or nasal flaring. Abdomen/GI: Soft, non-tender, with normal bowel sounds. No guarding or rebound. No evidence of tenderness throughout. Skin: Warm, dry with normal turgor. Normal color with no rashes, no lesions, and no evidence of cellulitis. MS/ Extremity: Pulses equal, no cyanosis. Neurovascular intact. Full, normal range of motion. Ambulatory without difficulty. Neuro: Awake and alert, GCS 15, oriented to person, place, time, and situation. Cranial nerves II-XII grossly intact. Motor strength 5/5 in all extremities. Sensory grossly intact. Pt appears tremulous at baseline of BUEs. Psych: Awake, alert, with orientation to person, place and time. Behavior, mood, and affect are within normal limits. 21:18 ECG was reviewed by the Attending Physician. NSR, rate 89, no STEMI criteria, baseline sd2 artifact present Vital Signs: 19:46 BP 117 / 86; Pulse 95; Resp 20; Temp 98.7(O); Pulse Ox 96% on R/A; Weight 76.2 kg (R); ll3 Height 5 ft. 4 in. (162.56 cm) (R); Pain 0/10; 20:20 BP 117 / 86; Pulse 95; Resp 20; Pulse Ox 95% on R/A; ha1 21:00 Pulse 86; Resp 17 S; Pulse Ox 95% on R/A; ha1 21:30 BP 131 / 82; Pulse 80; Resp 18 S; Pulse Ox 97% on R/A; ha1 22:20 BP 116 / 73; Pulse 86; Resp 18 S; Pulse Ox 95% on R/A; ha1 23:00 BP 122 / 75; Pulse 72; Resp 17 S; Pulse Ox 99% on R/A; ha1 19:46 Body Mass Index 28.84 (76.20 kg, 162.56 cm) ll3 MDM: 19:43 Patient medically screened. sd2 19:58 Differential Diagnosis ETOH withdrawal, dehydration, electrolyte abnormality, UTI, PNA, sd2 anemia among others. Data reviewed: vital signs, nurses notes, EMS record. 23:28 Data reviewed: lab test result(s), EKG. Counseling: I had a detailed discussion with sd2 the patient and/or guardian regarding: the historical points, exam findings, and any diagnostic results supporting the discharge/admit diagnosis, lab results, the need for outpatient follow up, to return to the emergency department if symptoms worsen or persist or if there are any questions or concerns that arise at home. Medical screen evaluation completed. [facility] emergency medical condition absent. Admission orders: after a detailed discussion of the patient's condition and case, the admit orders are written by me. ED course: Patient is sleeping comfortably at time of my repeat evaluation. Her labs showed hypomagnesemia which was replaced in the ER. Patient was also treated with a banana bag. Her vital signs of been very stable and her CIWA score is currently in the mild range. We did discuss options for continued alcohol cessation. The patient is open to rehab and detox. We did discuss a Librium taper but the patient is unable to commit to not drinking at home not knowing when she will be able to get into a rehab or detox facility and therefore, has elected to not receive a Librium taper. The patient was advised of need for monitored and controlled detox from alcohol due to the life-threatening nature of withdrawal from alcohol. She verbalizes understanding and is comfortable with plan for discharge and outpatient follow-up. She was given a list of centers for her to call and she states that she will call tomorrow to work on getting into a rehab or detox facility.. 03/29 01:22 ED course: Planned for discharge. However, patient is too unstable on her feet to be sd2 dispositioned at this time. Will plan to admit for alcohol withdrawal.. 03/28 19:52 Order name: CBC with Diff; Complete Time: 20:53 sd2 03/28 19:52 Order name: CMP; Complete Time: 22:07 sd2 03/28 19:52 Order name: Magnesium; Complete Time: 22:07 sd2 03/28 19:52 Order name: Troponin High Sensitivity; Complete Time: 22:07 sd2 03/28 19:52 Order name: Ethanol; Complete Time: 22:07 sd2 03/28 19:52 Order name: Urine Microscopic Only; Complete Time: 22:07 sd2 03/28 21:24 Order name: Urine Dipstick-Ancillary; Complete Time: 22:07 EDMS 03/29 01:38 Order name: SARS RAPID; Complete Time: 03:02 bb 03/29 05:02 Order name: CBC with Automated Diff; Complete Time: 05:48 EDMS 03/29 05:20 Order name: Basic Metabolic Panel; Complete Time: 05:48 EDMS 03/29 05:20 Order name: Liver (Hepatic) Function; Complete Time: 05:48 EDMS 03/29 05:20 Order name: Magnesium; Complete Time: 05:48 EDMS 03/29 05:35 Order name: Phosphorus; Complete Time: 05:48 EDMS 03/29 07:50 Order name: Glucose, Ancillary Testing EDMS 03/28 19:52 Order name: EKG - Nurse/Tech; Complete Time: 20:55 sd2 03/28 19:52 Order name: Urine Dipstick-Ancillary (obtain specimen); Complete Time: 21:49 sd2 03/29 12:00 Order name: Glucose, Ancillary Testing EDMS Administered Medications: 03/28 20:28 Drug: Banana Bag - (NS 0.9% 1000 ml, foLIC Acid 1 mg, Thiamine 100 mg, Multivitamin 1 ha1 amp) Route: IV; Rate: calculated rate; Site: left antecubital; 22:35 Follow up: Response: No adverse reaction; IV Status: Completed infusion; IV Intake: ha1 1000ml 20:28 Drug: Ativan (LORazepam) 1 mg Route: IVP; Site: left antecubital; ha1 21:00 Follow up: Pulse 86 bpm; Resp 17 bpm Spontaneous; Pulse Ox 95% RA; Response: No adverse ha1 reaction; RASS: Alert and Calm (0) 22:25 Drug: Magnesium Sulfate 1 grams Route: IVPB; Infused Over: 1 hrs; Site: left [facility] antecubital; 03/29 00:02 Follow up: IV Status: Completed infusion; IV Intake: 25ml [facility] 03/28 22:25 Drug: Ativan (LORazepam) 1 mg Route: IVP; Site: left antecubital; [facility] 23:00 Follow up: Response: No adverse reaction; RASS: Alert and Calm (0) [facility] Disposition Summary: 03/29/22 01:24 Hospitalization Ordered Hospitalization Status: Observation sd2 Provider: Annalisa Tomlin sd2 Condition: Stable(03/29/22 01:24) sd2 Problem: new(03/29/22 01:24) sd2 Symptoms: have improved(03/29/22 01:24) sd2 Bed/Room Type: Standard sd2 Location: Telemetry/MedSurg (observation)(03/29/22 10:54) bd Room Assignment: [facility](03/29/22 10:54) bd Diagnosis - Alcohol dependence with withdrawal, unspecified sd2 Forms: - Medication Reconciliation Form sd2 - SBAR form sd2 Signatures: Dispatcher [employer] EDMS Tiffany Scott Martha RN RN Dian Engle RN RN 3 Chelsea Sung MD MD sd2 Radha Merino RN RN 1 Pepper Rajput PA-C PADarvin sb4 Corrections: (The following items were deleted from the chart) 03/29 01:03/28 23:30 Home sd2 sd2 03/29 01:23 03/28 23:30 new sd2 sd2 03/29 01:23 03/28 23:30 have improved sd2 sd2 03/29 01:23 03/28 23:30 Stable sd2 sd2 03/29 01:23 03/28 23:30 Alcohol dependence with withdrawal, uncomplicated sd2 sd2 03/29 01:23 03/28 23:31 Hypomagnesemia sd2 sd2 03/29 02:14 01:24 Telemetry/MedSurg (observation) sd2 mw 02:14 01:24 sd2 mw 10:54 02:14 [facility] ER HOLD mw bd 10:54 02:14 ERHOLD- mw bd
--- NOTE | 2022-03-28 23:31 | ER ---
Nurse's Notes [facility] Name: Billie Botello Age: 61 yrs Sex: Female : 1960 Arrival Date: 03/28/2022 Time: 19:43 Bed 6 Private MD: Diagnosis: Alcohol dependence with withdrawal, unspecified Presentation: 03/28 19:46 Chief complaint: EMS states: Toned out for ETOH withdraw symptoms, pt states its been a ll3 few days since last drink, states she drinks a few rum and cokes everyday, c/o being cold and having "the shakes", denies pain at this time. Coronavirus screen: Vaccine status: Patient reports receiving the 2nd dose of the covid vaccine. At this time, the client does not indicate any symptoms associated with coronavirus-19. Ebola Screen: No symptoms or risks identified at this time. Initial Sepsis Screen: Does the patient meet any 2 criteria? No. Patient's initial sepsis screen is negative. Does the patient have a suspected source of infection? No. Patient's initial sepsis screen is negative. Risk Assessment: Do you want to hurt yourself or someone else? Patient reports no desire to harm self or others. Onset of symptoms was March 28, 2022. 19:46 Method Of Arrival: EMS: [facility] 19:46 Acuity: NKIA 3 ll3 Triage Assessment: 19:49 General: Appears in no apparent distress. uncomfortable, Behavior is cooperative, ll3 anxious. Pain: Denies pain. Neuro: Level of Consciousness is awake, alert, obeys commands, Oriented to person, place, time, situation, Reports Being "shaky". Respiratory: Respiratory effort is even, unlabored, Respiratory pattern is regular, symmetrical. Derm: Skin is pale. Historical: - Allergies: 19:49 Bactrim; ll3 19:49 Sulfa (Sulfonamide Antibiotics); ll3 19:49 Trazodone; ll3 19:49 TRIMETHOPRIM; ll3 - PMHx: 19:49 Diabetes - NIDDM; etoh abuse; High Cholesterol; Hypertension; Pancreatitis; ll3 - PSHx: 19:49 Appendectomy; left foot; right wrist; section; Tonsillectomy; ll3 - Immunization history:: Client reports receiving the 2nd dose of the Covid vaccine. - Social history:: Smoking status: Patient reports the use of cigarette tobacco products, denies chronic smoking, but will smoke occasionally, Patient uses alcohol, on a daily basis. States its been a few days since last drink. Screenin:31 [facility] Withdrawal Assessment for Alcohol, revised ([facility]): ll3 Nausea/Vomitin - Intermittent nausea with dry heaves Headache: 0 - Not present Paroxysmal Sweats: 1 - Barely perceptible sweating, palms moist Anxiety: 0 - No anxiety, at ease Agitation: 0 - Normal actiivty Tremor: 4 - Moderate when client's hands extended Auditory Disturbances: 0 - Not present Visual Disturbances: 0 - Not present Tactile Disturbances: 2 - Mild paresthesias Orientation and Clouding of Sensorium: 0 - Oriented and can do serial additions Total Score: 10 to 15: Mild Withdrawal. 03/29 00:05 Abuse screen: Denies threats or abuse. Denies injuries from another. Nutritional ha1 screening: No deficits noted. Tuberculosis screening: No symptoms or risk factors identified. Fall Risk None identified. 00:22 [facility] Withdrawal Assessment for Alcohol, revised ([facility]):. Clinical 1 [facility] Withdrawal Assessment for Alcohol, revised ([facility]):. Assessment: 03/28 19:51 General: See triage assessment. ll3 20:26 Reassessment: Patient and/or family updated on plan of care and expected duration. Pain ha1 level reassessed. Patient is alert, oriented x 3, equal unlabored respirations, skin warm/dry/pink. pt. reports to feel extremely cold. temperature was assess. T \\T\\ 97.8. 21:30 Reassessment: Patient and/or family updated on plan of care and expected duration. Pain ha1 level reassessed. Patient is alert, oriented x 3, equal unlabored respirations, skin warm/dry/pink. Patient states feeling better. 22:20 Reassessment: Patient and/or family updated on plan of care and expected duration. Pain ha1 level reassessed. Patient is alert, oriented x 3, equal unlabored respirations, skin warm/dry/pink. Patient states symptoms have improved. 22:37 Reassessment: ERP notified. GI: Reports nausea. ll3 23:30 Reassessment: Patient and/or family updated on plan of care and expected duration. Pain ha1 level reassessed. Patient is alert, oriented x 3, equal unlabored respirations, skin warm/dry/pink. Vital Signs: 19:46 BP 117 / 86; Pulse 95; Resp 20; Temp 98.7(O); Pulse Ox 96% on R/A; Weight 76.2 kg (R); ll3 Height 5 ft. 4 in. (162.56 cm) (R); Pain 0/10; 20:20 BP 117 / 86; Pulse 95; Resp 20; Pulse Ox 95% on R/A; ha1 21:00 Pulse 86; Resp 17 S; Pulse Ox 95% on R/A; ha1 21:30 BP 131 / 82; Pulse 80; Resp 18 S; Pulse Ox 97% on R/A; ha1 22:20 BP 116 / 73; Pulse 86; Resp 18 S; Pulse Ox 95% on R/A; ha1 23:00 BP 122 / 75; Pulse 72; Resp 17 S; Pulse Ox 99% on R/A; ha1 19:46 Body Mass Index 28.84 (76.20 kg, 162.56 cm) ll3 ED Course: 19:43 Patient arrived in ED. bb 19:43 Chelsea Sung MD is Attending Physician. sd2 19:49 Triage completed. ll3 19:49 Arm band placed on Patient placed in an exam room, on a stretcher, on pulse oximetry. ll3 20:20 Inserted saline lock: 20 gauge in left antecubital area, using aseptic technique. Blood ha1 collected. 20:25 Radha Merino RN is Primary Nurse. ha1 22:00 Patient has correct armband on for positive identification. Bed in low position. Call ha1 light in reach. Side rails up X 1. 03/29 00:05 No provider procedures requiring assistance completed. IV discontinued, intact, ha1 bleeding controlled, No redness/swelling at site. Pressure dressing applied. 01:22 Primary Nurse role handed off by Radha Merino RN bb 01:23 Annalisa Tomlin MD is Hospitalizing Provider. sd2 02:33 Radha Merino, RN is Primary Nurse. ha1 Administered Medications: 03/28 20:28 Drug: Banana Bag - (NS 0.9% 1000 ml, foLIC Acid 1 mg, Thiamine 100 mg, Multivitamin 1 ha1 amp) Route: IV; Rate: calculated rate; Site: left antecubital; 22:35 Follow up: Response: No adverse reaction; IV Status: Completed infusion; IV Intake: ha1 1000ml 20:28 Drug: Ativan (LORazepam) 1 mg Route: IVP; Site: left antecubital; ha1 21:00 Follow up: Pulse 86 bpm; Resp 17 bpm Spontaneous; Pulse Ox 95% RA; Response: No adverse ha1 reaction; RASS: Alert and Calm (0) 22:25 Drug: Magnesium Sulfate 1 grams Route: IVPB; Infused Over: 1 hrs; Site: left ha1 antecubital; 03/29 00:02 Follow up: IV Status: Completed infusion; IV Intake: 25ml ha1 03/28 22:25 Drug: Ativan (LORazepam) 1 mg Route: IVP; Site: left antecubital; ha1 23:00 Follow up: Response: No adverse reaction; RASS: Alert and Calm (0) ha1 Medication: 03/29 00:06 VIS not applicable for this client. ha1 Intake: 03/28 22:35 IV: 1000ml; Total: 1000ml. ha1 03/29 00:02 IV: 25ml; Total: 1025ml. ha1 Outcome: 03/28 23:30 Discharge ordered by . sd2 03/29 00:05 Discharged to home via wheelchair. ha1 Condition: stable Discharge instructions given to patient, Instructed on discharge instructions, follow up and referral plans. Demonstrated understanding of instructions, follow-up care. 00:06 Patient left the ED. ha1 01:24 Decision to Hospitalize by Provider. sd2 12:00 Patient left the ED. em6 Signatures: Loni Nguyen RN RN Dian Engle RN RN 3 Chelsea Sung MD MD sd2 Radha Merino RN RN ha1 Sharri Wen RN RN em6
--- NOTE | 2022-03-29 02:05 | P.HP ---
Certification for Inpatient Patient admitted to: Inpatient With expected LOS: >2 Midnights Patient will require the following post-hospital care: None Practitioner: I am a practitioner with admitting privileges, knowledge of patient current condition, hospital course, and medical plan of care. Services: Services provided to patient in accordance with Admission requirements found in Title 42 Section 412.3 of the Code of Federal Regulations <Pepper Rajput - Last Filed: 03/29/22 02:21> Patient History Date of Service: 03/29/22 Reason for admission: Alcohol Withdrawal History of Present Illness: Patient is a 61 year old female with history of hypertension, insulin dependent type 2 diabetes, alcohol abuse, tobacco abuse who presented to the ED via EMS with complaints of cold sweats and shaking. She reports that she typically drinks at least 4 rum and cokes a day, but has not had a drink in about 48 hours. Her vitals were stable in the ED and she was given a banana bag, supplemental magnesium, and 2 rounds of IV ativan. Patient was set to be discharged. However, when patient stood, she was extremely unsteady on her feet and could barely take a step. Patient lives at home alone. Given her high risk of impending alcohol withdrawal and unsteady gait/fall risk, ED provider wishes to admit patient for further evaluation and treatment. Home medications list reviewed: Yes - Past Medical/Surgical History Diabetic: Yes -: HTN -: Hyperlipidemia -: GERD -: CVA x2 -: Tobacco abuse -: Diabetes mellitus type 2 insulin-dependent -: renal insufficiency -: hypercholesterolemia -: Alcohol Abuse -: -: R wrist Sx (metal plate) -: rectal polyps removed -: Left ankle orif -: ectopic Psychosocial/ Personal History: The patient is single. She has 1 child. Retired - Family History Sister -: Lung disease, Diabetes Notes: asthma Mother -: Heart disease, Cancer Father -: Heart disease - Social History Smoking Status: Current every day smoker Alcohol use: Yes CD- Drugs: No Caffeine use: No Place of Residence: Home <Pepper Rajput - Last Filed: 03/29/22 02:21> Date of Service: 03/29/22 <Cyril Horn - Last Filed: 03/29/22 10:44> Allergies sulfamethoxazole [From Bactrim] Allergy (Intermediate, Verified 05/07/20 21:54) Rash trimethoprim [From Bactrim] Allergy (Intermediate, Verified 05/07/20 21:54) Rash Sulfa (Sulfonamide Antibiotics) Allergy (Verified 05/07/20 21:54) Unknown trazodone Allergy (Verified 05/07/20 21:54) Itching Home Medications: Aspirin [Aspirin EC 81 MG] 81 mg PO DAILY #90 tablet. 01/01/18 Atorvastatin Calcium [Lipitor] 40 mg PO BEDTIME #30 tab 02/20/19 Citalopram [Celexa*] 40 mg PO DAILY 06/08/20 Insulin Detemir [Levemir] 10 units SQ BEDTIME 05/28/21 Insulin Detemir [Levemir] 40 units SQ DAILY 05/28/21 ondansetron HCL [Zofran] 8 mg PO BID PRN 05/28/21 Celecoxib [Celebrex] 100 mg PO DAILY 09/07/21 Ciprofloxacin HCl [Cipro 500 MG Tablet] 500 mg PO BID #10 tab 09/08/21 metroNIDAZOLE [Flagyl] 500 mg PO Q8H #15 tablet 09/08/21 Review of Systems General: Chills, Weakness, Malaise <Pepper Rajput - Last Filed: 03/29/22 02:21> Physical Examination - Physical Exam General: Alert, In no apparent distress, Other (pale) HEENT: PERRLA, EOMI, Sclerae nonicteric Neck: Supple, No LAD Respiratory: Clear to auscultation bilaterally, Normal air movement Cardiovascular: Regular rate/rhythm, Normal S1 S2 Gastrointestinal: Normal bowel sounds, No tenderness Musculoskeletal: No tenderness Integumentary: No rashes Neurological: Normal speech, Sensation intact, Abnormal gait - Studies Laboratory Data (last 24 hrs) 03/28/22 20:22: Sodium 138, Potassium 3.6, BUN 30 H, Creatinine 1.41 H, Glucose 190 H, Magnesium 1.5 L, Total Bilirubin 0.8, AST 78 H, ALT 56, Alkaline Phospha tase 88 03/28/22 20:22: WBC 6.40, Hgb 14.0, Hct 41.2, Plt Count 239 <Pepper Rajput - Last Filed: 03/29/22 02:21> - Studies Laboratory Data (last 24 hrs) 09/25/22 20:22: Sodium 138, Potassium 3.6, BUN 30 H, Creatinine 1.41 H, Glucose 190 H, Magnesium 1.5 L, Total Bilirubin 0.8, AST 78 H, ALT 56, Alkaline Phos phatase 88 03/28/22 20:22: WBC 6.40, Hgb 14.0, Hct 41.2, Plt Count 239 <Cyril Horn - Last Filed: 03/29/22 10:44> Assessment and Plan - Problems (Diagnosis) (1) Alcohol withdrawal Current Visit: Yes Status: Acute Qualifiers: Complication of substance-induced condition: uncomplicated Qualified Code(s): F10.930 - Alcohol use, unspecified with withdrawal, uncomplicated (2) Diabetes mellitus Current Visit: Yes Status: Chronic Qualifiers: Diabetes mellitus type: type 2 Diabetes mellitus fpc insulin use: with director long term care use Diabetes mellitus complication status: with kidney complications Diabetes mellitus complication detail: with chronic kidney disease Chronic kidney disease stage: stage 3 (moderate) Chronic kidney disease stage 3 subtype: stage 3b (GFR 30-44) Qualified Code(s): E11.22 - Type 2 diabetes mellitus with diabetic chronic kidney disease; N18.32 - Chronic kidney disease, stage 3b; Z79.4 - longterm (current) use of insulin (3) Hyperlipidemia Current Visit: Yes Status: Chronic Qualifiers: Hyperlipidemia type: unspecified Qualified Code(s): E78.5 - Hyperlipidemia, unspecified (4) Hypertension Current Visit: Yes Status: Chronic Qualifiers: Hypertension type: primary hypertension Qualified Code(s): I10 - Essential (primary) hypertension (5) Tobacco abuse Current Visit: Yes Status: Chronic (6) Dehydration Current Visit: Yes Status: Acute - Plan -DT prophylaxis medications in place: PO ativan q4h as long as patient tolerates PO -Alcohol withdrawal assessment q4h, seizure precautions in place -Gentle IV hydration -Daily thiamine, folic acid, and multivitamin -ACHS accu-checks with sliding scale insulin and diabetic diet -Patient states she is willing to get clean from alcohol and go to rehab -Tobacco and alcohol cessation counseling -Physical therapy consult -Monitor and replete electrolytes per protocol -Reconcile and continue home medications -SCDs for VTE prophylaxis -Full code Discharge Plan: Home Plan to discharge in: Greater than 2 days - Advance Directives Does patient have a Living Will: No Does patient have a Durable POA for Healthcare: No - Code Status/Comfort Care Code Status Assessed: Yes (Full) Critical Care: No Time Spent Managing Pts Care (In Minutes): 50 <Pepper Rajput - Last Filed: 03/29/22 02:21> Physician Review: Patient Assessed, Agree with Above Assessment and Plan <Cyril Horn - Last Filed: 03/29/22 10:44>
[2022-03-29 03:01] LABS: SARS-CoV-2 Antigen Rapid Res Negative (Negative)
[2022-03-29] MEDS ORDERED: LORAZEPAM 1 MG TABLET PO PRN (03:52)
[2022-03-29] MEDS ORDERED: MAGNES/ALUMIN/SIMET 30ML UCUP PO PRN (03:52)
[2022-03-29] MEDS ORDERED: ONDANSETRON 4 MG/2 ML VIAL IV PRN (03:52)
[2022-03-29] MEDS: LORAZEPAM 1 MG TABLET PO SCH ×6 (03:52→23:52)
[2022-03-29] MEDS: NA CHLORIDE 0.9% 1,000 ML IV SCH ×3 (03:52→20:59)
[2022-03-29] MEDS ORDERED: FLUMAZENIL 0.1 MG/ML (5 mL VIAL) IV PRN (03:52)
[2022-03-29] MEDS ORDERED: ALBUTEROL 2.5 MG/3 ML NEB SOL NEB PRN ×2 (03:52→15:00)
[2022-03-29 04:02] VITALS: BMI 27.8
[2022-03-29 05:01] LABS: Absolute Lymphocytes (CBC) 2.1 K/uL (0.7-4.9); Hematocrit 37.2 % (36.0-45.0); Lymphocytes % 35.6 % (15.3-44.8); MCV 104.6 fL (80-100); MPV 8.7 fL (7.6-11.3); RBC Red Blood Cell Count 3.55 M/uL (3.86-4.86)
[2022-03-29 05:19] LABS: Albumin 3.1 g/dL (3.4-5.0); Bilirubin Direct 0.2 mg/dL (0-0.2); Bilirubin Total 0.7 mg/dL (0.2-1.0); Magnesium 1.9 mg/dL (1.8-2.4); Protein, Total 6.4 g/dL (6.4-8.2)
[2022-03-29 05:20] LABS: Potassium 2.7 mmol/L (3.5-5.1)
[2022-03-29 05:34] LABS: Phosphorus 2.1 mg/dL (2.5-4.9)
[2022-03-29] MEDS ORDERED: LORAZEPAM 1 MG TABLET ONE ×2 (05:41→08:14)
[2022-03-29] MEDS ORDERED: NA CHLORIDE 0.9% 1,000 ML ONE (05:41)
[2022-03-29] MEDS ORDERED: KCL 20 MEQ/100 mL IVPB 100 ML IV ONE ×2 (05:42→08:38)
[2022-03-29] MEDS: KCL 20 MEQ/100 mL IVPB 20 MEQ/100 ML BAG IV SCH ×3 (05:57→12:15)
[2022-03-29] MEDS: POTASS/SODIUM PHOSPHATE 1 PKT POWD.PACK PO SCH ×6 (06:00→11:00)
[2022-03-29] MEDS: INSULIN -REGULAR HUMAN 50 UNIT/0.5 ML ML SQ SCH ×4 (07:30→20:59)
[2022-03-29] MEDS ORDERED: MULTIVITAMIN TAB PO ONE (08:11)
[2022-03-29] MEDS ORDERED: FOLIC ACID 1 MG TABLET ONE (08:12)
[2022-03-29] MEDS ORDERED: THIAMINE HCL 100 MG TABLET ONE (08:12)
[2022-03-29] MEDS: FOLIC ACID 1 MG TABLET PO SCH (08:18)
[2022-03-29] MEDS: MULTIVITAMIN TAB PO SCH (08:18)
[2022-03-29] MEDS: THIAMINE HCL 100 MG TABLET PO SCH (08:19)
[2022-03-29] MEDS ORDERED: POTASSIUM CL SA 10 MEQ TAB PO ONE (17:00)
[2022-03-30] MEDS ORDERED: POTASSIUM CL SA 10 MEQ TAB PO ONE ×2 (00:53→07:37)
[2022-03-30] MEDS: LORAZEPAM 1 MG TABLET PO SCH ×6 (03:52→23:52)
[2022-03-30 06:15] LABS: Absolute Lymphocytes (CBC) 2.2 K/uL (0.7-4.9); Hematocrit 36.3 % (36.0-45.0); Lymphocytes % 43.2 % (15.3-44.8); MCV 104.9 fL (80-100); MPV 8.4 fL (7.6-11.3); RBC Red Blood Cell Count 3.46 M/uL (3.86-4.86)
[2022-03-30 06:50] LABS: Phosphorus 2.3 mg/dL (2.5-4.9); Potassium 3.6 mmol/L (3.5-5.1)
[2022-03-30] MEDS: INSULIN -REGULAR HUMAN 50 UNIT/0.5 ML ML SQ SCH ×4 (07:30→21:00)
[2022-03-30 07:32] LABS: Magnesium 1.3 mg/dL (1.8-2.4)
[2022-03-30] MEDS ORDERED: Magnesium Sulfate 2gm IVPB 2 G/50 ML BAG IV ONE (07:33)
[2022-03-30] MEDS: MULTIVITAMIN TAB PO SCH (08:28)
[2022-03-30] MEDS: THIAMINE HCL 100 MG TABLET PO SCH (08:28)
[2022-03-30] MEDS: FOLIC ACID 1 MG TABLET PO SCH (08:28)
[2022-03-30] MEDS: NA CHLORIDE 0.9% 1,000 ML IV SCH (08:29)
[2022-03-30] MEDS: Magnesium Sulfate 2gm IVPB 2 G/50 ML BAG IV SCH ×2 (08:29→10:32)
--- NOTE | 2022-03-30 15:25 | RAD REPORT ---
EXAM DESCRIPTION: MRI - Brain W/Wo Cont - 03/30/2022 2:35 pm CLINICAL HISTORY: Ataxia COMPARISON: 2018 TECHNIQUE: Axial, sagittal, and coronal magnetic images of the brain were obtained. 17 cc MultiHance administered intravenously FINDINGS: Mild to moderate signal within periventricular, deep and subcortical white matter probably ischemic changes secondary to small vessel disease Mild cerebellar vermis atrophy. The ventricles are normal in caliber. Diffusion-weighted/ ADC mapping sequences do not demonstrate evidence of an acute infarction. No abnormal enhancement within the brain is seen. An extra-axial fluid collection is not noted. Fluid within the sinuses/mastoids is not seen 23 millimeter right parotid mass without significant change IMPRESSION: Mild cerebellar vermis atrophy 23 millimeter right parotid mass
--- NOTE | 2022-03-30 17:29 | EKG ---
Test Date: 2022-03-28 Test Time: 20:41:02 Mathematics Academic Chair: MARISOL MEASUREMENT RESULTS: Intervals: Rate: 89 ID: [id number] QRSD: 72 QT: 402 QTc: 489 [place]: P: 61 ID: [id number] QRS: 16 T: 33 INTERPRETIVE STATEMENTS: Normal sinus rhythm Normal ECG Compared to ECG 09/07/2021 09:31:54 Myocardial infarct finding no longer present Prolonged QT interval no longer present Electronically Signed On 03-30-22 17:27:08 CDT by Tobias Kapadia
--- NOTE | 2022-03-30 19:32 | P.PN ---
Subjective Date of Service: 03/30/22 Chief Complaint: Alcohol Withdrawal Subjective: No new changes No acute events overnight. She reports severe "mental confusion." However, she is alert and oriented x 4 to person, [address], time, and situation. She endorses willingness to quit alcohol. Review of Systems 10-point ROS is otherwise unremarkable Neurological: Confusion Physical Examination - Vital Signs Temperature: 97.1 F Blood Pressure: 143/90 Pulse: 81 Respirations: 18 Pulse Ox (%): 98 - Physical Exam General: Alert, In no apparent distress, Oriented x3, Confused (reportedly?) HEENT: Atraumatic, PERRLA, Mucous membr. moist/pink, EOMI, Sclerae nonicteric Neck: Supple, JVD not distended Respiratory: Clear to auscultation bilaterally, Normal air movement Cardiovascular: No edema, Regular rate/rhythm, Normal S1 S2, No gallops, No rubs, No murmurs Gastrointestinal: Normal bowel sounds, Soft and benign, Non-distended, No tenderness, No rebound, No guarding Musculoskeletal: No clubbing Integumentary: No rashes Neurological: Normal speech, Normal strength at 5/5 x4 extr, Sensation intact, Cranial nerves 3-12 intact, Normal affect Assessment And Plan - Plan # Alcohol Withdrawal Syndrome # Alcohol Use Disorder - She is doing well on lorazepam taper and does not appear to be actively withdrawing - Continue [facility] protocol - Will monitor in the hospital for delirium tremens given that she is still within the window and reports confusion - Appreciate case management assistance with outpatient alcohol rehabs - MRI = "mild cerebellar vermis atrophy. 23 millimeter right parotid mass" - Continue thiamine, folic acid, and banana bag # Right Parotid Mass (23 mm) - Consulted ENT and spoke with Dr. High - recommendations appreciated - Recommended CT neck and follow-up in her clinic for a biopsy # Tobacco Use Disorder - Tobacco cessation counseling provided # Type II Diabetes Mellitus # Hypertension # Hyperlipidemia - Continue home meds Cyril Horn M.D.
--- NOTE | 2022-03-30 20:58 | RAD REPORT ---
EXAM DESCRIPTION: CT - Soft Tissue Neck W/Contr - 03/30/2022 8:32 pm CLINICAL HISTORY: Parotid mass COMPARISON: MRI March 30, 2022 TECHNIQUE: Computed axial tomography of the neck was obtained. 50 cc Isovue 300 was administered in travenously. Coronal and sagittal reconstruction was performed. All CT scans are performed using dose optimization technique as appropriate and may include automated exposure control or mA/KV adjustment according to patient size. FINDINGS: The pharynx, tongue base, larynx and subglottic trachea appear unremarkable 23 millimeter right parotid mass. Portions of the mass are vascular. The left parotid, submandibular and thyroid glands appear unremarkable. No lymphadenopathy is seen No fluid within the sinuses/mastoids IMPRESSION: 23 millimeter right parotid mass. 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 Warthin's tumor and malignancy are other considerations
[2022-03-31] MEDS: NA CHLORIDE 0.9% 1,000 ML IV SCH ×2 (00:29→15:11)
[2022-03-31] MEDS: LORAZEPAM 1 MG TABLET PO SCH ×4 (02:00→19:56)
[2022-03-31 06:19] LABS: Absolute Lymphocytes (CBC) 2.3 K/uL (0.7-4.9); Hematocrit 39.2 % (36.0-45.0); Lymphocytes % 40.4 % (15.3-44.8); MCV 106.3 fL (80-100); MPV 7.9 fL (7.6-11.3); RBC Red Blood Cell Count 3.68 M/uL (3.86-4.86)
[2022-03-31 06:28] LABS: Magnesium 1.7 mg/dL (1.8-2.4); Phosphorus 2.9 mg/dL (2.5-4.9); Potassium 3.8 mmol/L (3.5-5.1)
[2022-03-31 07:03] LABS: Blood Morphology Comment NOTED (NOT SEEN); Macrocytosis 1+; Platelet Estimate ADEQ
[2022-03-31] MEDS: INSULIN -REGULAR HUMAN 50 UNIT/0.5 ML ML SQ SCH ×4 (07:30→19:54)
[2022-03-31] MEDS ORDERED: POTASSIUM CL SA 10 MEQ TAB PO ONE (09:00)
[2022-03-31] MEDS ORDERED: MAGNESIUM SULFATE 1 gm IVPB 1 GM/100 ML BAG IV ONE (09:00)
[2022-03-31] MEDS: FOLIC ACID 1 MG TABLET PO SCH (09:26)
[2022-03-31] MEDS: THIAMINE HCL 100 MG TABLET PO SCH (09:26)
[2022-03-31] MEDS: MULTIVITAMIN TAB PO SCH (09:30)
--- NOTE | 2022-03-31 17:57 | P.PN ---
Date of Service: 03/31/22 ENT Consultation Please see dictated H&P. Impression: 1. Right parotid neoplasm-- uncertain behavior. Plan: 1. Recommend outpatient surgical excision. Patient is uninsured and unable to afford medical insurance. Discussed that social sciences professor may be able to help with costs. This was d/w Dr. oHrn. 2. Refrain from picking at the lesion. 3. Followup in outpatient clinic w/in 1-2 weeks of discharge for surgical planning.
--- NOTE | 2022-03-31 18:58 | P.PN ---
Subjective Date of Service: 03/31/22 Chief Complaint: Alcohol Withdrawal No acute events overnight. She remains alert and oriented x 4 to [address], [address], time, and situation, but states that she continues to have "mental fog." She feels that this is improving compared to yesterday. Review of Systems 10-point ROS is otherwise unremarkable Neurological: Confusion Physical Examination - Vital Signs Temperature: 98.4 F Blood Pressure: 148/83 Pulse: 86 Respirations: 16 Pulse Ox (%): 97 Assessment And Plan - Plan General: Alert, In no apparent distress, Oriented x3, Confused (reportedly?) HEENT: Atraumatic, PERRLA, Mucous membr. moist/pink, EOMI, Sclerae nonicteric Neck: Supple, JVD not distended, small parotid mass noted Respiratory: Clear to auscultation bilaterally, Normal air movement Cardiovascular: No edema, Regular rate/rhythm, Normal S1 S2, No gallops, No rubs, No murmurs Gastrointestinal: Normal bowel sounds, Soft and benign, Non-distended, No tenderness, No rebound, No guarding Musculoskeletal: No clubbing Integumentary: No rashes Neurological: Normal speech, Normal strength at 5/5 x4 extr, Sensation intact, Cranial nerves 3-12 intact, Normal affect # Alcohol Withdrawal Syndrome # Alcohol Use Disorder - She is doing well on lorazepam taper and does not appear to be actively withdrawing - She reports continued mental fog (although improving) - Will monitor in the hospital for delirium tremens given that she is still within the window and reports confusion - Continue [facility] protocol - Appreciate case management assistance with outpatient alcohol rehabs - MRI = "mild cerebellar vermis atrophy. 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 High - recommendations appreciated # Tobacco Use Disorder - Tobacco cessation counseling provided # Type II Diabetes Mellitus # Hypertension # Hyperlipidemia - Continue home pitor Horn M.D.
[2022-04-01] MEDS: NA CHLORIDE 0.9% 1,000 ML IV SCH ×3 (00:01→13:33)
[2022-04-01] MEDS: LORAZEPAM 1 MG TABLET PO SCH ×2 (02:00→08:00)
[2022-04-01 05:50] LABS: Absolute Lymphocytes (CBC) 2.4 K/uL (0.7-4.9); Hematocrit 36.6 % (36.0-45.0); Lymphocytes % 41.3 % (15.3-44.8); MCV 105.8 fL (80-100); MPV 7.8 fL (7.6-11.3); RBC Red Blood Cell Count 3.46 M/uL (3.86-4.86)
[2022-04-01 06:08] LABS: Magnesium 1.6 mg/dL (1.8-2.4); Potassium 4.2 mmol/L (3.5-5.1)
[2022-04-01 06:54] LABS: Anisocytosis 1+; Blood Morphology Comment NOTED (NOT SEEN); Macrocytosis 1+; Platelet Estimate ADEQ; White Blood Cell Scan OK (OK)
[2022-04-01] MEDS ORDERED: MAGNESIUM SULFATE 1 gm IVPB 1 GM/100 ML BAG IV ONE (07:00)
[2022-04-01] MEDS: INSULIN -REGULAR HUMAN 50 UNIT/0.5 ML ML SQ SCH ×4 (07:30→20:47)
--- NOTE | 2022-04-01 08:40 | P.DS ---
Admission Date: 03/29/22 Discharge Date: 04/01/22 Reason for Admission: Alcohol Withdrawal Vital Signs/Physical Exam: Temp Pulse Resp BP Pulse Ox 97.7 F 72 18 141/90 H 94 04/01/22 08:00 04/01/22 08:00 04/01/22 08:00 04/01/22 08:00 04/01/22 08:00 Laboratory Data at Discharge: WBC 5.80 K/uL (4.3-10.9) 04/01/22 05:17 Hgb 12.7 g/dL (12.0-15.0) 04/01/22 05:17 Hct 36.6 % (36.0-45.0) 04/01/22 05:17 Plt Count 214 K/uL (152-406) 04/01/22 05:17 Sodium 138 mmol/L (136-145) 04/01/22 05:17 Potassium 4.2 mmol/L (3.5-5.1) 04/01/22 05:17 BUN 16 mg/dL (7-18) 04/01/22 05:17 Creatinine 0.73 mg/dL (0.55-1.3) 04/01/22 05:17 Glucose 135 mg/dL (74-106) H 04/01/22 05:17 Phosphorus 2.9 mg/dL (2.5-4.9) 03/31/22 05:28 Magnesium 1.6 mg/dL (1.8-2.4) L 04/01/22 05:17 Total Bilirubin 0.7 mg/dL (0.2-1.0) 03/29/22 04:38 AST 60 U/L (15-37) H 03/29/22 04:38 ALT 45 U/L (12-78) 03/29/22 04:38 Alkaline Phosphatase 73 U/L (45-117) 03/29/22 04:38 Home Medications: Aspirin [Aspirin EC 81 MG] 81 mg PO DAILY #90 tablet. 01/01/18 Atorvastatin Calcium [Lipitor] 40 mg PO BEDTIME #30 tab 02/20/19 Citalopram [Celexa*] 40 mg PO DAILY 06/08/20 Insulin Detemir [Levemir] 10 units SQ BEDTIME 05/28/21 Insulin Detemir [Levemir] 40 units SQ DAILY 05/28/21 Celecoxib [Celebrex] 100 mg PO DAILY 09/07/21 Followup: Unknown,U [Primary Care Provider] -
[2022-04-01] MEDS: THIAMINE HCL 100 MG TABLET PO SCH (09:03)
[2022-04-01] MEDS: FOLIC ACID 1 MG TABLET PO SCH (09:03)
[2022-04-01] MEDS: MULTIVITAMIN TAB PO SCH (09:03)
[2022-04-01] MEDS: carvediloL 3.125 MG TAB PO SCH ×2 (15:47→18:06)
--- NOTE | 2022-04-01 18:06 | CON ---
Date of Consultation: 03/31/2022 Chief Complaint: Right parotid gland mass. History Of Present Illness: The patient is a pleasant 61-year-old female who was admitted for alcohol withdrawal and dehydration. By examination by the physician, the patient had an enlarged right parotid gland mass that she states has been present for at least 5 years. She states that at times it is painful, and when she squeezes the lesion she was able to get an exudate or sebaceous material from the lesion. Currently, she denies fever or significant pain associated with this lesion or significant enlargement since onset. In fact, she states that the lesion has decreased in size since onset, but nevertheless would like to have it removed. She denies facial paresis or paralysis, intraoral pain or pressure. She has mild right otalgia associated with the lesion, but otherwise no other ENT complaints today. Past Medical History: Diabetes mellitus, hypertension, hyperlipidemia, GERD, CVA x2, tobacco abuse, renal insufficiency, hypercholesterolemia, alcohol abuse, , right wrist surgery, excision of rectal polyps, ORIF left ankle, ectopic . Medications: Refer to the MAR, but current medications as listed in the H and P in the chart is aspirin, atorvastatin, calcium, citalopram, Levemir insulin, ondansetron HCl, celecoxib, ciprofloxacin HCl, metronidazole. Allergies: SULFAMETHOXAZOLE, TRIMETHOPRIM, TRAZODONE. Social History: Positive for daily smoking, unsure of packs per day. Alcohol use, heavy. No drugs. Review of Systems: Head: Denies trauma, headache, swelling. Ears: Denies otalgia, otorrhea, hearing loss or tinnitus. Face: Right parotid gland/cheek mass with mild radiation of pain to the right ear and right jaw. Eyes: Denies drainage, double vision, blurry vision. Nose: Denies rhinorrhea, postnasal drip, or nasal congestion. Throat: Denies sore throat, dysphagia, odynophagia, or dental pain. Neck: Denies swelling or lymphadenopathy. Physical Examination: Vital Signs: Stable. General: She is awake, alert, oriented to person, place, and time, and she is in no acute distress. Eyes: PERRLA/EOMI. Ears: Bilateral external auditory canals patent. Tympanic membranes intact. Nose: Moist intranasal mucosa. Midline septum. Oral Cavity: Midline uvula. Posterior oropharynx intact. No exudate. Tobacco staining of tongue. Neck: Supple. Trachea midline. No lymphadenopathy or thyromegaly palpated. Face: Right parotid gland tail subcutaneous mass palpated approximately 2 to 2.5 cm in diameter with no cutaneous fistula. No evidence of facial weakness. Patient has House-Brackmann type 1. Imaging: CT scan of soft tissue neck with contrast 03/31/2022 was reviewed and I personally reviewed the films myself. I agree with radiologist that there is a superficial parotid gland mass measuring approximately 2 to 2.5 cm. It does not appear to be invasive and is definitely well circumscribed and no invasion into the facial vessels seen. Rest of CT is normal. 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 Recommendations: Recommend outpatient surgical excision when the patient is discharged from the hospital. This was discussed in detail with the patient. My business card was given for outpatient followup. Thank you Dr. Horn for this most interesting consultation. TACHO/RAJINDER Voice ID: [id number] Report ID: [id number] MTDD
--- NOTE | 2022-04-01 23:26 | P.PN ---
Subjective Date of Service: 04/01/22 Chief Complaint: Alcohol Withdrawal No acute events overnight. She reported that her confusion improved significantly. She initially stated that she felt ready to go home and discharge was planned. However, later this morning, she stated that she feels too unsteady to ambulate. Discharge was cancelled and she was kept in the hospital for a physical therapy evaluation for placement. Review of Systems 10-point ROS is otherwise unremarkable General: Weakness (generalized) Physical Examination - Vital Signs Temperature: 98.1 F Blood Pressure: 157/96 Pulse: 71 Respirations: 16 Pulse Ox (%): 95 Assessment And Plan - Plan General: Alert, In no apparent distress, Oriented x3 HEENT: Atraumatic, PERRLA, Mucous membr. moist/pink, EOMI, Sclerae nonicteric Neck: Supple, JVD not distended, small parotid mass noted Respiratory: Clear to auscultation bilaterally, Normal air movement Cardiovascular: No edema, Regular rate/rhythm, Normal S1 S2, No gallops, No rubs, No murmurs Gastrointestinal: Normal bowel sounds, Soft and benign, Non-distended, No tenderness, No rebound, No guarding Musculoskeletal: No clubbing Integumentary: No rashes Neurological: Normal speech, Normal strength at 5/5 x4 extr, Sensation intact, Cranial nerves 3-12 intact, Normal affect # Alcohol Withdrawal Syndrome (improved) # Alcohol Use Disorder - She did well on lorazepam taper and does not appear to be actively withdrawing - will stop today as today is day 7 without an alcoholic beverage - Continue [facility] protocol - Appreciate case management assistance with outpatient alcohol rehabs - MRI = "mild cerebellar vermis atrophy. 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 High - recommendations appreciated # Tobacco Use Disorder - Tobacco cessation counseling provided # Type II Diabetes Mellitus # Hypertension # Hyperlipidemia - Continue home meds # Deconditioning She reports that she is too weak to be discharged home. Appreciate PT recs regarding placement. Cyril Horn M.D.
[2022-04-02] MEDS: NA CHLORIDE 0.9% 1,000 ML IV SCH ×2 (02:07→14:32)
[2022-04-02] MEDS: carvediloL 3.125 MG TAB PO SCH (05:44)
[2022-04-02 06:17] LABS: Absolute Lymphocytes (CBC) 2.3 K/uL (0.7-4.9); Hematocrit 38.4 % (36.0-45.0); Lymphocytes % 37.1 % (15.3-44.8); MCV 105.7 fL (80-100); MPV 7.8 fL (7.6-11.3); RBC Red Blood Cell Count 3.63 M/uL (3.86-4.86)
[2022-04-02 06:30] LABS: Magnesium 1.5 mg/dL (1.8-2.4); Potassium 3.9 mmol/L (3.5-5.1)
[2022-04-02] MEDS: INSULIN -REGULAR HUMAN 50 UNIT/0.5 ML ML SQ SCH ×3 (07:30→16:01)
[2022-04-02 08:51] VITALS: O2SAT 98
[2022-04-02] MEDS ORDERED: MAGNESIUM SULFATE 1 gm IVPB 1 GM/100 ML BAG IV ONE (09:00)
[2022-04-02] MEDS ORDERED: POTASSIUM CL SA 10 MEQ TAB PO ONE (09:00)
[2022-04-02] MEDS: FOLIC ACID 1 MG TABLET PO SCH (09:25)
[2022-04-02] MEDS: MULTIVITAMIN TAB PO SCH (09:25)
[2022-04-02] MEDS: THIAMINE HCL 100 MG TABLET PO SCH (09:26)
[2022-04-02 15:49] VITALS: BP 168/107; TEMP 97.5
--- NOTE | 2022-04-02 19:03 | P.DS ---
Admission Date: 03/29/22 Discharge Date: 04/02/22 Disposition: ROUTINE DISCHARGE Discharge Condition: GOOD Reason for Admission: Alcohol Withdrawal Consultations: 1. Otorhinnolaryngology Hospital Course: DIAGNOSES: # Alcohol Withdrawal Syndrome (resolved) # Alcohol Use Disorder # Right Parotid Mass (23 mm) - concerning for Warthin's Tumor vs Pleomorphic Adenoma # Tobacco Use Disorder # Type II Diabetes Mellitus # Hypertension # Hyperlipidemia # Deconditioning HOSPITAL COURSE: Ms. Billie Botello is a 61 year old female with a past medical history significant for alcohol use disorder, tobacco use disorder, type II diabetes mellitus, hypertension, and hyperlipidemia who was admitted to the [facility] on 03/29/2022 for concerns of alcohol withdrawal. She was admitted to the Medicine service. She was treated with lorazepam and successfully weaned off without evidence of further alcohol withdrawal. An MRI was obtained to exclude the possibility of a stroke, and this revealed "mild cerebellar vermis atrophy. 23 millimeter right parotid mass." Otorhinolaryngology was consulted and she was evaluated by Dr. High. Dr. High recommended a CT of the neck soft tissues, which revealed, "23 millimeter right parotid mass. 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 Warthin's tumor and malignancy are other considerations." She recommended outpatient follow-up for resection. She was evaluated by physical therapy and did not tolerate therapy well. She states that she is unable to afford therapy services, but feels safe being discharged home with her sister who can assist in taking care of her. On 04/02/2022, she was seen on morning rounds and deemed medically stable for discharge. She was discharged with instructions to schedule follow-up appointments with her PCP in 3-5 days and with ENT (Dr. High) in 5-7 days. She was given the opportunity to ask questions and reported no further questions. Furthermore, all questions were answered to the best of my ability. A copy of this discharge summary will be sent to the above providers to facilitate continuity of care. Today, I personally spent 20 minutes on her case, of which greater than 50% of the time was spent in patient education, counseling, and coordination of care as described above. - Plan General: Alert, In no apparent distress, Oriented x3 HEENT: Atraumatic, PERRLA, Mucous membr. moist/pink, EOMI, Sclerae nonicteric Neck: Supple, JVD not distended, small parotid mass noted Respiratory: Clear to auscultation bilaterally, Normal air movement Cardiovascular: No edema, Regular rate/rhythm, Normal S1 S2, No gallops, No rubs, No murmurs Gastrointestinal: Normal bowel sounds, Soft and benign, Non-distended, No tender ness, No rebound, No guarding Musculoskeletal: No clubbing Integumentary: No rashes Neurological: Normal speech, Normal strength at 5/5 x4 extr, Sensation intact, Cranial nerves 3-12 intact, Normal affect Vital Signs/Physical Exam: Temp Pulse Resp BP Pulse Ox 97.5 F 70 17 168/107 H 95 04/02/22 15:48 04/02/22 15:48 04/02/22 15:48 04/02/22 15:48 04/02/22 15:48 Laboratory Data at Discharge: WBC 6.10 K/uL (4.3-10.9) 04/02/22 05:37 Hgb 13.2 g/dL (12.0-15.0) 04/02/22 05:37 Hct 38.4 % (36.0-45.0) 04/02/22 05:37 Plt Count 242 K/uL (152-406) 04/02/22 05:37 Sodium 138 mmol/L (136-145) 04/02/22 05:37 Potassium 3.9 mmol/L (3.5-5.1) 04/02/22 05:37 BUN 15 mg/dL (7-18) 04/02/22 05:37 Creatinine 0.72 mg/dL (0.55-1.3) 04/02/22 05:37 Glucose 137 mg/dL (74-106) H 04/02/22 05:37 Phosphorus 2.9 mg/dL (2.5-4.9) 03/31/22 05:28 Magnesium 1.5 mg/dL (1.8-2.4) L 04/02/22 05:37 Total Bilirubin 0.7 mg/dL (0.2-1.0) 03/29/22 04:38 AST 60 U/L (15-37) H 03/29/22 04:38 ALT 45 U/L (12-78) 03/29/22 04:38 Alkaline Phosphatase 73 U/L (45-117) 03/29/22 04:38 Home Medications: Aspirin [Aspirin EC 81 MG] 81 mg PO DAILY #90 tablet. 01/01/18 Atorvastatin Calcium [Lipitor] 40 mg PO BEDTIME #30 tab 02/20/19 Citalopram [Celexa*] 40 mg PO DAILY 06/08/20 Insulin Detemir [Levemir] 10 units SQ BEDTIME 05/28/21 Magnesium Oxide [Mag 0X Tab] 400 mg PO DAILY #1 tab 04/01/22 Multivit,Ther Iron,Ca,FA & Min [Centrum Tablet*] 1 tab PO DAILY tab 04/01/22 Thiamine HCl [Vitamin B-1*] 100 mg PO DAILY 04/01/22 New Medications: Magnesium Oxide [Mag 0X Tab] 400 mg PO DAILY #1 tab Physician Discharge Instructions: 1. Please schedule a follow-up appointment with your PCP in 3-5 days 2. Please schedule a follow-up appointment with ENT (Dr. Hihg) in 5-7 days - She will need to schedule you to remove the mass from your right parotid gland (mouth gland) 3. Please schedule outpatient follow-up acute alcohol rehabilitation Diet: AHA Activity: Ad sunitha Followup: Heaven High DO [ACTIVE - CAN ADMIT] - 1 Week Unknown,U [Primary Care Provider] - 2-3 Days (Call for appointment.) Time spent managing pt's care (in minutes): 20
== END 2022-04-02 17:30 | disposition home or self-care (01) | DRG 897 ==
LOC: ER 19:41 → 2ND 03-29 11:11 → 4TH 04-01 12:51
PROVIDERS: ADMIT Internal Medicine; ATTEND Internal Medicine
DX: F10.930 Alcohol use, unspecified with withdrawal, uncomplicated (principal); E86.0 Dehydration; I12.9 Hypertensive chronic kidney disease with stage 1 through stage 4 chronic kidney disease, or unspecified chronic kidney disease; E11.22 Type 2 diabetes mellitus with diabetic chronic kidney disease; N18.32 Chronic kidney disease, stage 3b; D37.030 Neoplasm of uncertain behavior of the parotid salivary glands; R53.1 Weakness; E78.5 Hyperlipidemia, unspecified; K21.9 Gastro-esophageal reflux disease without esophagitis; E78.00 Pure hypercholesterolemia, unspecified; F17.210 Nicotine dependence, cigarettes, uncomplicated; Z71.41 Alcohol abuse counseling and surveillance of alcoholic; Z71.6 Tobacco abuse counseling; Z86.73 Personal history of transient ischemic attack (TIA), and cerebral infarction without residual deficits; Z87.19 Personal history of other diseases of the digestive system; Z79.4 Long term (current) use of insulin; Z79.82 Long term (current) use of aspirin; Z79.899 Other long term (current) drug therapy; Z88.2 Allergy status to sulfonamides; Z88.3 Allergy status to other anti-infective agents; Z88.8 Allergy status to other drugs, medicaments and biological substances; Z20.822 Contact with and (suspected) exposure to COVID-19; Z83.3 Family history of diabetes mellitus; Z82.5 Family history of asthma and other chronic lower respiratory diseases; Z82.49 Family history of ischemic heart disease and other diseases of the circulatory system
CPT/HCPCS: 36415; 70491; 70553; 80048; 80053; 80076; 80320; 81003; 81015; 82947; 83735; 84100; 84132; 84484; 85025; 87811; 93005; 94760; 96365; 96366; 96375; 97110; 97116; 97530; 99284; J3411; J3475; J3480; J7030; Q9967

== ENCOUNTER 2022-05-29 09:06 | Emergency (ER) | payer SELFPAY ==
[2022-05-29] MEDS ORDERED: NA CHLORIDE 0.9% 1,000 ML ONE (09:10)
[2022-05-29] MEDS ORDERED: TENECTEPLASE 50 MG/10 ML VIAL IV ONE (09:10)
--- OUTSIDE RECORDS SUMMARY | 2022-05-29 09:19 | XMS REPORT | Continuity of Care Document ---
:1960 Author Organization [facility] t Address [address] [place] [address] Care Team Providers Name Role Phone Srinath Eli Primary Care Physician [phone] RICH CHIANG Attending Clinician Unavailable Aditya Frost Attending Clinician RICH CHIANG Admitting Clinician Unavailable Aditya Frost Admitting Clinician Problems Condition Condition Condition Status Onset Resolution Last Treating Co mments Source Name Details Category Date Date Treatment Clinician Date Type 2 Type [address] [facility] mellitus [facility] Medica l 00 [place] Hypokalemi Hypokalemi Disease Active [address] [facility]: Medical 00 [place] Hypomagnes Hypomagnes Disease Active [address] emia emia 12-08 [facility]: Medical 00 [place] Alcohol Alcohol Disease Active [facility] abuse abuse 12[facility]08 [facility] 00 [place] Essential Essential Disease Active [facility] hypertensi hypertensi 12-08 Carmen kes on on 00:00: Medical 00 Center Stroke Stroke Disease Active [facility] Medical 00 [...] admission to current to current facility facility Status Status Disease Active [facility] administra administra 00:00: Me dical tion of tion of 00 Center tPA (rtPA) tPA (rtPA) in a in a different different facility facility within the within the last 24 last 24 hours hours prior to prior to admission admission to current to current facility facility PANCREATIT PANCREATI Diagnosis Active 2014-11-05 Memoria IS TIS Active 10-30 21:50:00 l 10/30/2014 03:39: Sebastian balbuena [address] Diverticul Diverticu Problem Resolve 2014 [facility] itis litis d 04:20:14 l (disorder) (disorder) He rmann Resolved Problem 2014 [facility] Hypertensi Hypertens Problem Resolve 2014 [facility] ve alejandro d 04:20:14 l disorder, disorder, Herm debbie systemic systemic arterial arterial (disorder) (disorder) Resolved Problem 2014 [facility] CHRONIC CHRONIC Diagnosis Active 2014-11-05 [facility] PANCREATIT PANCREATIT 21:50:00 l IS IS Active Tobias [facility] 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 complicati complicati Me dical on, on, Center without without long-term long-term current current use of use of insulin insulin Other Other Problem Active Common chronic chronic Spirit pain pain - [facility] Hyperlipid Hyperlipid Problem Active C ommon emia emia [facility] Hypothyroi Hypothyroi Problem Active C ommon dism dism [facility] Dizziness Dizziness Problem Active Com mon Spirit - [facility] Hypertensi Hypertensi Problem Active C ommon on on [facility] Depression Depression Problem Active C ommon [facility] - [facility] Allergic Allergic Problem Active Commo n rhinitis, rhinitis, Spir it seasonal seasonal - [facility] Allergies, Adverse Reactions, Alerts Allergy Allergy Status Severity Reaction(s) Onset Inactive Treating Comm ents Source Name Type Date Date Clinician Mesna - Propensi Active Intraven ty to 5-24 ous adverse 00:00: reaction 00 to drug Bactrim Propensi Active - Oral ty to 3-15 adverse 00:00: reaction 00 to drug Bactrim Propensi Active ty to 1-22 adverse 00:00: reaction 00 to drug Sulfamet Propensi Active Rash [facility] h[facility]07 [facility] adverse 00:00: Medical oprim reaction 00 Center s Sulfa Adverse Active Info Not Common Reaction Available Spiri t [facility] Bactrim Bactrim Active Nikolai Collado Social History Social Habit Start Date Stop Date Quantity Comments Source History SDAL [facility] Alcohol Binge Medical [facility] ter History SDOH [facility] Alcohol Frequency [facility] Center History [facility] Alcohol Std Drinks Medica Center History [facility] 2018-12-07 2018-12-07 drinks [address] [facility] Alcohol Comment 00:00:00 00:00:00 run, last drank [facility] 12/06/18 Tobacco Comment 2018-12-07 2018-12-07 1 pack every [address] [facility] 00:00:00 00:00:00 for the last 10 Medical C enter years Cigarettes smoked 2018-12-07 2018-12-[address] [facility] current (pack per 00:00:00 00:00:00 [facility] day) - Reported Cigarette 2018-12-07 2018-12-[address] [facility] pack-years 00:00:00 00:00:00 [facility] Tobacco use and 2018-12-07 2018-12-[address] Carmen kes exposure 00:00:00 00:00:00 [facility] Alcohol intake 2018-12-07 2018-12-07 Current drinker of [facility] 00:00:00 00:00:00 alcohol (finding) [facility] Social History 2014-10-30 2014-10-30 [facility] 10:31:19 10:31:19 Tobias Sex Ass[birth year] At [birth year] [facility] astrids 00:00:00 00:00:00 [facility] Center Smoking Status Start Date Stop Date Source Current some day smoker 2018-12-07 00:00:00 [facility] Medications Ordered Filled Start Stop Current Ordering Indication Dosage Frequency Signature Comments Components Source Medication Medication Date Date Medication? Clinician (SIG) Name Name TAKE 1 2021-07 No TABLET 0-12 DAILY. 00:00: 00 Dose 2022-0 No Unknown 4-27 00:00: 00 Dose 2022-0 No Unknown 4-27 00:00: 00 Dose 2022-0 [...] 1-24 00:00: 00 Dose 2022-0 No Unknown 1-24 [...] 10 mg 9-09 tablet 00:00: 00 atorvastati 1-0 No 1mg n 40 mg 9-09 tablet 00:00: 00 cetirizine 2021-0 No 1mg 10 mg 9-09 tablet 00:00: 00 atorvastati 2021-0 No 1mg n 40 mg 9-09 tablet 00:00: 00 ibuprofen 2021-0 No 1mg 600 mg 8-31 tablet 00:00: 00 ibuprofen 2021-0 No 1mg 600 mg 8-31 tablet 00:00: 00 Levemir 2021-0 No 10(3 FlexTouch 8-12 mL) U-100 00:00: Insulin 100 00 unit/mL (3 mL) subcutaneou s pen amlodipine 1-0 No 1mg 10 mg 8-12 tablet 00:00: [...] 8-12 disintegrat 00:00: ing tablet 00 carvedilol 1-0 No 1mg 12.5 mg 8-12 tablet 00:00: 00 omeprazole 1-0 No 1mg 40 mg 8-12 capsule,del 00:00: ayed 00 release Levemir 2021-0 No 10(3 FlexTouch 8-12 mL) U-100 00:00: Insulin 100 00 unit/mL (3 mL) subcutaneou s pen amlodipine 1-0 No 1mg 10 mg 8-12 tablet 00:00: [...] 12.5 mg 8-12 tablet 00:00: 00 omeprazole 1-0 No 1mg 40 mg 8-12 capsule,del 00:00: ayed 00 release ondansetron 1-0 No 1mg 8 mg 6-08 disintegrat 00:00: ing tablet 00 ondansetron 2021-0 No 1mg 8 mg 6-08 disintegrat 00:00: ing tablet 00 amlodipine 2021-0 No 1mg 10 mg 5-03 tablet 00:00: 00 hydrochloro 2021-0 No 1mg thiazide 25 5-03 mg tablet 00:00: 00 carvedilol 2021-0 No 1mg 12.5 mg 5-03 tablet 00:00: 00 atorvastati 2021-0 No 1mg n 40 mg 5-03 tablet 00:00: 00 amlodipine 2021-0 No 1mg 10 mg [...] 40 mg 4-27 tablet 00:00: 00 fenofibrate 1-0 No 1mg nanocrystal 4-27 lized 145 00:00: mg tablet 00 ondansetron 1-0 No 1mg 8 mg 4-27 disintegrat 00:00: ing tablet 00 omeprazole 1-0 No 1mg 40 mg 4-27 capsule,del 00:00: ayed 00 release omeprazole 1-0 No 1mg 10 mg 4-27 capsule,del 00:00: ayed 00 release Levemir 2021-0 No 30(3 FlexTouch 4-27 mL) U-100 00:00: Insulin 100 00 unit/mL (3 mL) subcutaneou s pen Levemir 2020-0 No 10(3 FlexTouch 4-27 mL) U-100 00:00: Insulin 100 00 unit/mL (3 mL) subcutaneou s pen citalopram 2020-0 No 1mg 40 mg 4-27 tablet 00:00: 00 fenofibrate 2020-0 No 1mg nanocrystal 4-27 lized 145 00:00: mg tablet 00 ondansetron 0 No 1mg 8 mg 4-27 disintegrat 00:00: ing tablet 00 omeprazole 2020-0 No 1mg 40 mg 4-27 capsule,del 00:00: ayed 00 release omeprazole 2020-0 No 1mg 10 mg 4-27 capsule,del 00:00: ayed 00 release Flagyl 500 2020-0 No 1mg mg tablet 3-05 00:00: 00 Flagyl 500 2020-0 No 1mg mg tablet [...] doxepin 6 2019-1 No 1mg mg tablet 2-29 00:00: 00 atorvastati 2019-1 No 1mg n 40 mg 2-29 tablet 00:00: 00 omeprazole 2019-1 No 1mg 40 mg 2-29 capsule,del 00:00: ayed 00 release Levemir 2019-1 No (3 mL) FlexTouch 2-29 U-100 00:00: Insulin 100 00 unit/mL (3 mL) subcutaneou s pen fenofibrate 2019-07 No 1mg nanocrystal 2-29 lized 145 00:00: mg tablet 00 hydrochloro 2019-07 No 1mg thiazide 25 2-29 mg tablet 00:00: 00 amlodipine 2019- No 1mg 10 mg 2-29 tablet 00:00: 00 citalopram 2019-07 No 1mg 40 mg 2-29 tablet 00:00: 00 carvedilol 2019-07 No 1mg 12.5 mg 2-29 tablet 00:00: 00 glimepiride 2019-07 No 1mg 4 mg tablet 2- 00:00: 00 methocarbam 2019-07 No 1mg ol 750 mg 2-29 tablet 00:00: 00 doxepin 6 2019-07 No 1mg mg tablet 2- 00:00: 00 atorvastati 2019-07 No 1mg n 40 mg 2-29 tablet 00:00: 00 omeprazole 2019-07 No 1mg 40 mg 2-29 capsule,del 00:00: ayed 00 release ketorolac 2019-07 No 1mg 10 mg 2-15 tablet 00:00: 00 gabapentin 2019-07 No 1mg 400 mg 2-15 capsule 00:00: 00 ketorolac 2019-07 No 1mg 10 mg 2-15 tablet 00:00: 00 gabapentin 2019-07 No 1mg 400 mg 2-15 capsule 00:00: 00 doxepin 6 2019-07 No 1mg mg tablet 2 00:00: 00 doxepin 6 2019-07 No 1mg mg tablet 2-03 00:00: 00 fenofibrate 2019-07 No 1mg nanocrystal 1-05 lized 145 00:00: mg tablet 00 fenofibrate 2019-07 No 1mg nanocrystal 1-05 lized 145 00:00: mg tablet 00 Levemir 2019-07 No (3 mL) FlexTouch 1-03 U-100 00:00: Insulin 100 00 unit/mL (3 mL) subcutaneou s pen citalopram 2019-07 No 1mg 40 mg 1-03 tablet 00:00: 00 amlodipine 2019-07 No 1mg 10 mg 1-03 tablet 00:00: 00 hydrochloro 2019-07 No 1mg thiazide 25 1-03 mg tablet 00:00: 00 metformin 2019-07 No 2mg ER 750 mg 1-03 tablet,exte 00:00: nded 00 release 24 hr carvedilol 2019- No 1mg 12.5 mg 1-03 tablet 00:00: 00 glimepiride 2019- No 1mg 4 mg tablet 1-03 00:00: 00 methocarbam 2019- No 1mg ol 750 mg 1-03 tablet 00:00: 00 doxepin 6 2019-07 No 1mg mg tablet -03 00:00: 00 atorvastati 2019- No 1mg n 40 mg 1-03 tablet 00:00: 00 omeprazole 2019-07 No 1mg 40 mg 1-03 capsule,del 00:00: ayed 00 release Levemir 2019-07 No (3 mL) FlexTouch 1-03 U-100 00:00: Insulin 100 00 unit/mL (3 mL) subcutaneou s pen citalopram 2019-07 No 1mg 40 mg 1-03 tablet 00:00: 00 amlodipine 2019-07 No 1mg 10 mg 1-03 tablet 00:00: 00 hydrochloro 2019-07 No 1mg thiazide 25 1-03 mg tablet 00:00: 00 metformin 2019- No 2mg ER 750 mg 1-03 tablet,exte 00:00: nded 00 release 24 hr carvedilol 2019-07 No 1mg 12.5 mg 1-03 tablet 00:00: 00 glimepiride 2019-07 No 1mg 4 mg tablet 103 00:00: 00 methocarbam 2019- No 1mg ol 750 mg 1-03 tablet 00:00: 00 doxepin 6 2019-07 No 1mg mg tablet 03 00:00: 00 atorvastati 2019-07 No 1mg n 40 mg 1-03 tablet 00:00: 00 omeprazole 2019-07 No 1mg 40 mg 1-03 capsule,del 00:00: ayed 00 release carvedilol 2019- No 1mg 12.5 mg 0-22 tablet 00:00: 00 trazodone 2019- No 12mg 100 mg 0-22 tablet 00:00: 00 carvedilol 2019- No 1mg 12.5 mg 0-22 tablet 00:00: 00 trazodone 2019- No 12mg 100 mg 0-22 tablet 00:00: 00 carvedilol 2020-0 No 1mg 12.5 mg 9-11 tablet 00:00: 00 carvedilol 2020-0 No 1mg [...] pen Levemir 2020-0 No (3 mL) FlexTouch 7-20 U-100 00:00: Insulin 100 00 unit/mL (3 mL) subcutaneou s pen methocarbam 2020-0 No 1mg ol 750 mg 6-24 tablet 00:00: 00 doxycycline 2020-0 No 1mg monohydrate 6-24 100 mg 00:00: capsule 00 methocarbam 2020-0 No 1mg ol 750 mg 6-24 tablet 00:00: 00 doxycycline 2020-0 No 1mg monohydrate 6-24 100 mg 00:00: capsule 00 metformin 2020-0 No 2mg ER 750 mg 5-22 tablet,exte 00:00: nded 00 release 24 hr metformin 2020-0 No 2mg ER 750 mg 5-22 tablet,exte 00:00: nded 00 release 24 hr atorvastati 2020-0 No 1mg n 40 mg 5-20 tablet 00:00: 00 methocarbam 2020-0 No 1mg ol 750 mg 5-20 tablet 00:00: 00 omeprazole 2020-0 No 1mg 40 mg 5-20 capsule,del 00:00: ayed 00 release doxycycline 2020-0 No 1mg monohydrate 5-20 100 mg 00:00: capsule 00 Levemir 2020-0 No (3 mL) FlexTouch 5-20 [...] 00 Levemir 2020-0 No (3 mL) FlexTouch 5-20 [...] mg 30 mg 5-20 tablet 00:00: 00 Levemir 2020-0 No (3 mL) FlexTouch 4-22 U-100 00:00: Insulin 100 00 unit/mL (3 mL) subcutaneou s pen Levemir 2020-0 No (3 mL) FlexTouch 4-22 U-100 00:00: Insulin 100 00 unit/mL (3 mL) subcutaneou s pen diclofenac 2020-0 No 1mg sodium 75 4-21 mg 00:00: tablet,idalmis 00 yed release cyclobenzap 2020-0 No 1mg rine 10 mg 4-21 tablet 00:00: 00 diclofenac 2020-0 No 1mg sodium 75 4-21 mg 00:00: tablet,idalmis 00 yed release cyclobenzap 2020-0 No 1mg rine 10 mg 4-21 tablet 00:00: 00 Levemir 2020-0 No (3 mL) FlexTouch 3-24 U-100 00:00: Insulin 100 00 unit/mL (3 mL) subcutaneou s pen amoxicillin 2020-0 No 1mg 875 3-24 mg-potassiu 00:00: m 00 clavulanate 125 mg tablet Levemir 2020-0 No (3 mL) FlexTouch 3-24 [...] mg 2-26 capsule,del 00:00: ayed 00 release Levemir 2020-0 No (3 mL) FlexTouch 2-26 [...] capsule,del 00:00: ayed 00 release Flagyl 500 2019-0 No 1mg mg tablet 2 00:00: 00 Flagyl 500 2019-0 No 1mg mg tablet 2 00:00: 00 Levemir 2020-0 No (3 mL) FlexTouch 1-29 U-100 00:00: Insulin 100 00 unit/mL (3 mL) subcutaneou s pen Levemir 2020-0 No (3 mL) FlexTouch 1-29 U-100 00:00: Insulin 100 00 unit/mL (3 mL) subcutaneou s pen citalopram 2020-0 No 1mg 20 mg -29 tablet 00:00: 00 glimepiride 2019-0 No 1mg 4 mg tablet 08-01 00:00: 00 Levemir 2020-0 No (3 mL) FlexTouch 1-29 U-100 00:00: Insulin 100 00 unit/mL (3 mL) subcutaneou s pen Levemir 2020-0 No (3 mL) FlexTouch 1-29 U-100 00:00: Insulin 100 00 unit/mL (3 mL) subcutaneou s pen citalopram 2019-0 No 1mg 20 mg 1-29 tablet 00:00: 00 glimepiride 2019-0 No 1mg 4 mg tablet 08-01 00:00: 00 metformin 2019-1 No 1mg ER 750 mg 2-31 tablet,exte 00:00: nded 00 release 24 hr metformin 2018- No 2mg ER 750 mg 2-31 tablet,exte 00:00: nded 00 release 24 hr metformin 2019-1 No 1mg ER 750 mg 2-31 tablet,exte 00:00: nded 00 release 24 hr metformin 2019-1 No 2mg ER 750 mg 2-31 tablet,exte 00:00: nded 00 release 24 hr amlodipine 2018- No 1mg 10 mg 2-10 tablet 00:00: 00 glimepiride 2019-1 No 1mg 4 mg tablet 2- 00:00: 00 metformin 2019-1 No 1mg ER 500 mg 2-10 tablet,exte 00:00: nded 00 release 24 hr carvedilol 2018-1 No 1mg 12.5 mg 2-10 tablet 00:00: 00 metformin 2019-1 No 15mg ER 500 mg 2-10 tablet,exte 00:00: nded 00 release 24 hr mirtazapine 2018-1 No mg 30 mg 2-10 tablet 00:00: 00 atorvastati 2018-1 No 1mg n 40 mg 2-10 tablet 00:00: 00 omeprazole 2018- No 1mg 40 mg 2-10 capsule,del 00:00: ayed 00 release amlodipine 2018- No 1mg 10 mg 2-10 tablet 00:00: 00 glimepiride 2018- No 1mg 4 mg tablet 2-10 00:00: 00 metformin 2018-1 No 1mg ER 500 mg 2-10 tablet,exte 00:00: nded 00 release 24 hr carvedilol 2018-1 No 1mg 12.5 mg 2-10 tablet 00:00: 00 metformin 2018-1 No 15mg ER 500 mg 2-10 tablet,exte 00:00: nded 00 release 24 hr mirtazapine 2018- No mg 30 mg 2-10 tablet 00:00: 00 atorvastati 2018- No 1mg n 40 mg 2-10 tablet 00:00: 00 omeprazole 2018- No 1mg 40 mg 2-10 capsule,del 00:00: ayed 00 release amlodipine 2018-1 No 1mg 10 mg 0-01 tablet 00:00: 00 glimepiride 2018-1 No 1mg 1 mg tablet 0-01 00:00: 00 carvedilol 2018-1 No 1mg 12.5 mg 0-01 tablet 00:00: 00 mirtazapine 2019-1 No mg 30 mg 0-01 tablet 00:00: 00 amlodipine 2018-1 No 1mg 10 mg 0-01 tablet 00:00: 00 glimepiride 2018-1 No 1mg 1 mg tablet 0-01 00:00: 00 carvedilol 2019-1 No 1mg 12.5 mg 0-01 tablet 00:00: 00 mirtazapine 2019-1 No mg 30 mg 0-01 tablet 00:00: 00 potassium 2018-0 No 1% (40 gluconate 6-19 mg/mL) 550 mg (90 00:00: mg) tablet 00 potassium 2018-0 No 1% (40 gluconate 6-19 mg/mL) 550 mg (90 00:00: mg) tablet 00 mirtazapine No mg 30 mg 6-18 tablet 00:00: 00 mirtazapine 2018- No mg 30 mg 6-18 tablet 00:00: 00 ranitidine Yes 150mg Q.5D Take [address] (ZANTAC[facility] 6-10 [facility] 150 MG 15:47: mouth 2 Medical tablet 46 (two) Center times daily. omeprazole Yes 40mg QD Take [address] (PRILOSEC) 6-10 by [facility] 40 MG 15:47: daily. Medical capsule 46 [place] potassium Yes Take by [facility] gluconate 6-10 [facility]. [facility] 550 mg (90 15:47: Medical mg) Tab 46 [place] ranitidine Yes 150mg Q.5D Take [address] (ZANTAC) 6-10 mg by [facility] 150 MG 15:47: mouth 2 Medical tablet 46 (two) Center times daily. omeprazole Yes 40mg QD Take [address] (PRILOSEC) 6-10 by [facility] 40 MG 15:47: daily. Medical capsule 46 [place] potassium Yes Take by [facility] gluconate 6-10 mouth. [facility] 550 mg (90 15:47: Medical mg) Tab 46 [place] ranitidine Yes 150mg Q.5D Take [address] (ZANTAC) 6-10 mg by [facility] 150 MG 15:47: mouth 2 Medical tablet 46 (two) Center times daily. omeprazole Yes 40mg QD Take [address] (PRILOSEC) 6-10 by mouth [facility] 40 MG 15:47: daily. Medical capsule 46 [place] potassium Yes Take by [facility] t gluconate 6-10 mouth. [facility] 550 mg (90 15:47: Medical mg) Tab 46 [place] carvedilol Yes hypertensio 12.5mg Take 1 [facility] [...] HCl 4 mg 4-01 tablet 00:00: 00 ondansetron 2019-0 No 1mg HCl 4 mg 4-01 tablet 00:00: 00 amlodipine 2019-0 No 1mg 10 mg 3-21 tablet 00:00: 00 hydrochloro 2019-0 No 1mg thiazide 3-21 12.5 mg 00:00: tablet 00 glimepiride 2019-0 No 1mg 1 mg tablet 3-21 00:00: 00 ranitidine 2019-0 No 1mg 150 mg 3-21 tablet 00:00: 00 carvedilol 2019-0 No 1mg 12.5 mg 3-21 tablet 00:00: 00 amlodipine 2019-0 No 1mg [...] 1mg 20 mg 8-09 tablet 00:00: 00 simvastatin 2018-0 No 1mg 20 mg 8-09 tablet 00:00: 00 nicotine 21 2018-0 No 1mg/24 mg/24 hr 8-07 hr daily 00:00: transdermal 00 patch nicotine 21 2018-0 No 1mg/24 mg/24 hr 8- hr daily 00:00: transdermal 00 patch pantoprazol 2018-0 No 1mg e 40 mg 8- tablet,idalmis 00:00: yed release 00 glimepiride 2018-0 No 1mg 1 mg tablet 02-07 00:00: 00 Aspirin Low 2018-0 No 1mg Dose 81 mg 8- tablet,idalmis 00:00: yed release 00 glimepiride 2018-0 No 1mg 1 mg tablet 02-07 00:00: 00 pantoprazol 2018-0 No 1mg e 40 mg 8-07 tablet,idalmis 00:00: yed release 00 carvedilol 2018-0 No 1mg 12.5 mg 8-07 tablet 00:00: 00 amlodipine 2018-0 No 1mg 5 mg tablet 02-07 00:00: 00 amlodipine 2018-0 No 1mg 5 mg tablet 02-07 00:00: 00 carvedilol 2018-0 No 1mg 12.5 mg 8-07 tablet 00:00: 00 nicotine 21 2018-0 No 1mg/24 mg/24 hr 8- hr daily 00:00: transdermal 00 patch nicotine 21 2018-0 No 1mg/24 mg/24 hr 8 hr daily 00:00: transdermal 00 patch pantoprazol 2018-0 No 1mg e 40 mg 02-07 tablet,idalmis 00:00: yed release 00 glimepiride 2018-0 No 1mg 1 mg tablet 02-07 00:00: 00 Aspirin Low 2018-0 No 1mg Dose 81 mg 02-07 tablet,idalmis 00:00: yed release 00 glimepiride 2018-0 [...] a Spirit 00:00: meal - [facility] [address] [facility] prednisone 2017-0 No 1mg 20 mg 5-11 tablet 00:00: 00 omeprazole 2017-0 No 1mg 20 mg 5-11 tablet,idalmis 00:00: yed release 00 Carafate 2017-0 No 10mg/mL 100 mg/mL 5-11 oral 00:00: suspension 00 prednisone 2017-0 No 1mg 20 mg 5-11 [...] 1mg 6.25 mg 3-24 tablet 00:00: 00 clonidine 2017-0 No 1mg HCl 0.1 mg 3-24 tablet 00:00: 00 doxazosin 1 2017-0 No 1mg mg tablet 3-24 00:00: 00 metformin 2017-0 No 1mg 1,000 mg 3-24 tablet 00:00: 00 hydrochloro 2017-0 No [...] ne 25 mcg 3-24 tablet 00:00: 00 simvastatin 2017-0 No [...] ne 25 mcg 2-14 tablet 00:00: 00 hydrochloro 2017-0 No 1mg [...] 2-21 mg 00:00: tablet,idalmis 00 yed release diclofenac 2015-1 No 1mg sodium 75 2-21 mg 00:00: tablet,idalmis 00 yed release hydrochloro 2016-0 No 1mg thiazide 9-20 12.5 mg 00:00: tablet 00 doxazosin 1 2016-0 No 1mg mg tablet 920 00:00: 00 metformin 2016-0 No 1mg 1,000 [...] ne 25 mcg 9-20 tablet 00:00: 00 hydrochloro 2016-0 No 1mg thiazide 9-20 12.5 mg 00:00: tablet 00 doxazosin 1 2016-0 No 1mg mg tablet 920 00:00: 00 metformin 2016-0 No 1mg 1,000 [...] Cipro 250 2016-0 No 1mg mg tablet 12-29 00:00: 00 Cipro 250 2016-0 No 1mg mg tablet 12-29 00:00: 00 doxazosin 1 2016-0 No 1mg mg tablet 12-09 00:00: 00 lisinopril 2016-0 No 1mg 20 mg 6-08 tablet 00:00: 00 carvedilol 2016-0 No 1mg 6.25 mg 6-08 tablet 00:00: 00 levothyroxi 2016-0 No 1mcg ne 25 mcg 6-08 tablet 00:00: 00 doxazosin 1 2016-0 No 1mg mg tablet 12-09 00:00: 00 lisinopril 2016-0 No 1mg 20 [...] ne 25 mcg 5-23 tablet 00:00: 00 pravastatin 2016-0 No 1mg [...] HCl 8 mg 5-20 tablet 00:00: 00 hydrochloro 2016-0 No 1mg [...] rine 5 mg 4-21 tablet 00:00: 00 carvedilol 2016-0 No 1mg 12.5 mg 4-21 tablet 00:00: 00 metformin 2016-0 No 1mg 1,000 mg 4-21 tablet 00:00: 00 lisinopril 2016-0 No 1mg 20 mg 4-21 tablet 00:00: 00 simvastatin 2016-0 No 1mg 20 mg 4-21 tablet 00:00: 00 cyclobenzap 2016-0 No 1mg rine 5 mg 4-21 tablet 00:00: 00 Vitamin D2 2016-0 No 1unit 50,000 unit 2-15 capsule 00:00: 00 Vitamin D2 2016-0 No 1unit 50,000 unit 2-15 capsule 00:00: 00 amoxicillin 2016-0 No 1mg 500 mg 2-12 tablet 00:00: 00 amoxicillin 2016-0 No 1mg 500 mg 2-12 tablet 00:00: 00 carvedilol 2014-1 No 1mg 12.5 mg 2-10 tablet 00:00: 00 lisinopril 2014-1 No 1mg 20 mg 2-10 tablet 00:00: 00 metformin 2015-1 No 1mg 1,000 mg 2-10 tablet 00:00: 00 simvastatin 2015-1 No 1mg 20 mg 2-10 tablet 00:00: 00 carvedilol 2014-1 No 1mg 12.5 mg 2-10 tablet 00:00: 00 lisinopril 2014-1 No 1mg 20 mg 2-10 tablet 00:00: 00 metformin 2014-1 No 1mg 1,000 mg 2-10 tablet 00:00: 00 simvastatin 2014-1 No 1mg 20 mg 2-10 tablet 00:00: 00 lisinopril 2014-1 No 1mg 20 mg 1-14 tablet 00:00: 00 lisinopril 2014-07 No 1mg 20 mg 1-14 tablet 00:00: 00 carvedilol 2014-07 No 1mg 12.5 mg 1-14 tablet 00:00: 00 lisinopril 2014-07 No 1mg 20 mg 1-14 tablet 00:00: 00 lisinopril 2014-07 No 1mg 20 mg 1-14 tablet 00:00: 00 carvedilol 2014-07 No 1mg 12.5 mg 1-14 tablet 00:00: 00 Pneumovax No Notes: Memori a 23 11-01 (Same as: l 17:21: Pneumovax Tobias) Refrigerat e Pneumovax No Notes: Memori a 23 11-01 (Same as: l 17:21: Pneumovax ) Refrigerat e tramadol Yes 100.4 F, Abad [...] 4-30 (Same as: l 14:00: Prinivil, Tobias Zestril) Hydrochloro No Notes: Abad charlene thiazide 4-30 (Same as: l 14:00: Microzide) With food. pneumococca Yes Notes: Abad charlene [...] ia 4-30 (Same as: l 14:00: Prinivil, [place] 00 Zestril) Hydrochloro No Notes: Abad charlene thiazide 4-30 (Same as: l 14:00: Microzide) [place] 00 With food. pneumococca Yes Notes: Abad [...] ia 4-29 Give with l 22:00: food. [place] (Same As: Coreg) carvedilol No Notes: Memor ia 4-29 Give with l 22:00: food. [place] 00 (Same As: Coreg) K-Dur 20 No Notes: Memoria -29 (Same as: l 15:30: K-Dur 20) [place] 00 "Do Not Crush" With food and full glass of water K-Dur 20 No Notes: Memoria -29 (Same as: l 15:30: K-Dur 20) [place] "Do Not Crush" With food and full glass of water Zofran No Notes: Memoria 4-29 (Same as: l 11:34: Zofran) Tobias 00 MEDICATION WASTE Product Size: 4 mg Product Wasted: ___ mg Zofran No Notes: Memoria -29 (Same as: l 11:34: Zofran) Tobias 00 MEDICATION WASTE Product Size: 4 mg Product Wasted: ___ mg Morphine No Notes: Memoria 4- (Same l 11:26: as:MORPhin [place] 00 e Sulfate) Morphine No Notes: Memoria 4-29 (Same l 11:26: as:MORPhin [place] 00 e Sulfate) Dilaudid No 1 mg, 1 Memori a 4-29 mL, Route: l 11:25: IVP, Drug form: INJ, Q6H, Dosing Weight 81.932, kg, PRN Pain Score 7-10, Priority: STAT, Start date: 10/30/14 6:25:00, Duration: 30 day, Stop date: 11/29/14 6:24:00 Dilaudid No 1 mg, 1 Memori a 4-29 mL, Route: l 11:25: IVP, Drug [place] 00 form: INJ, Q6H, Dosing Weight 81.932, kg, PRN Pain Score 7-10, Priority: STAT, Start date: 10/30/14 6:25:00, Duration: 30 day, Stop date: 11/29/14 6:24:00 Labetalol No Notes: Memori a 4-29 (Same as: l 11:23: Normodyne, [place] 00 Trandate) Push over 2 minutes Give [...] Hydrochloro No 12.5 mg, Me moria thiazide 4-29 PO, Daily, l 10:34: 0 Tobias 00 Refill(s) Lisinopril 2015-0 Yes 20 mg, PO, M emoria 4-29 Daily, 0 l 10:34: Refill(s) carvedilol 2014-0 Yes 12.5 mg = Me moria 12.5 mg 4-29 1 tab, PO, l oral tablet 10:34: BID, 0 Refill(s) Hydrochloro 2014-0 No 12.5 mg, Me moria thiazide 4-29 PO, Daily, l 10:34: 0 Refill(s) Lisinopril 0 Yes 20 mg, PO, M emoria 4-29 Daily, 0 l 10:34: Refill(s) lisinopril 0 No 2mg 20 3-12 mg-hydrochl 00:00: orothiazide 00 12.5 mg tablet carvedilol 0 No 1mg 12.5 mg 3-12 tablet 00:00: 00 lisinopril 0 No 2mg 20 3-12 mg-hydrochl 00:00: orothiazide 00 12.5 mg tablet carvedilol 0 No 1mg 12.5 mg 3-12 tablet 00:00: 00 Immunizations Ordered Immunization Filled Immunization Date Status Commen ts Source Name Name Moderna Covid-19 2022-03-24 Completed Vaccine (Aged 12 00:00:00 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) Moderna Covid-19 2022-03-24 Completed Vaccine (Aged 12 00:00:00 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) Moderna COVID-19 2020-11-18 Completed Vaccine 00:00:00 Moderna COVID-19 2020-11-18 Completed Vaccine 00:00:00 Moderna COVID-19 2020-10-21 Completed Vaccine 00:00:00 Moderna COVID-19 2020-10-21 Completed Vaccine 00:00:00 pneumococcal 2014-11-01 [facility]pleted [facility] 23-valent vaccine 18:41:00 [place] pneumococcal 2014-11-01 Completed [facility] 23-valent vaccine 18:41:00 [place] Vital Signs Vital Name Observation Time Observation Value Comments Source BP Systolic 2022-04-14 09:42:00 116 mm[Hg] BP Diastolic 2022-04-14 09:42:00 77 mm[Hg] Weight Measured 2022-04-14 09:42:00 161.60 pounds Height Measured 2022-04-14 09:42:00 63.80 inches Body Temperature 2022-04-14 09:42:00 98.10 degrees Heart Rate 2022-04-14 09:42:00 85.00 /min Respiratory Rate 2022-04-14 09:42:00 17.00 /min BP Systolic 2022-03-24 10:48:00 163 mm[Hg] BP [...] Oral (F) 2014-11-01 17:00:00 98.5 F [facility] [place] Systolic (mm Hg) 2014-11-01 17:00:00 Abad rial [place] Diastolic (mm Hg) 2014-11-01 17:00:00 Mem o[facility] Tobias Respitory Rate 2014-11-01 17:00:00 [facility] [place] Heart Rate 2014-11-01 13:00:00 [facility] Systolic (mm Hg) 2014-11-01 13:00:00 Abad rial Tobias Diastolic (mm Hg) 2014-11-01 13:00:00 Mem orial Tobias Respitory Rate 2014-11-01 13:00:00 [facility] Tobias Temperature Oral (F) 2014-11-01 13:00:00 98.6 F [facility] [place] Respitory Rate 2014-11-01 09:01:00 Aleks dillon [place] Systolic (mm Hg) 2014-11-01 09:01:00 Abad chiang [place] Diastolic (mm Hg) 2014-11-01 09:01:00 Mem orial Tobias Temperature Oral (F) 2014-11-01 09:01:00 98 F [facility] [place] Heart Rate 2014-11-01 09:01:00 [facility] Weight 2014-10-30 10:23:00 [facility] BMI Calculated 2014-10-30 10:23:00 Gilliangerry dillon [place] Height 2014-10-30 10:23:00 162.56 cm [facility] Procedures Procedure Date / Time Performed Performing Clinician Sourc e [id number] Colposcopy Cervix 2020-09-26 00:00:00 Bx Cervix endocrv Curtg 17835 Colposcopy Cervix 2019-09-04 00:00:00 Bx Cervix endocrv Curtg Rmvl Impacted Cerumen Spx 2015-08-15 00:00:00 1/both Ears section [facility] Planned Activity Planned Date Details Comments Source Goal Plan of Care Note [code = 25557-9] Goal Plan of Care Note [code = 28269-4] Goal Plan of Care Note [code = 16606-0] Goal Plan of Care Note [code = 61315-5] Goal Plan of Care Note [code = 66962-4] Goal Plan of Care Note [code = 25090-1] Goal Plan of Care Note [code = 69401-6] Goal Plan of Care Note [code = 39854-9] Goal Plan of Care Note [code = 06206-2] Goal Plan of Care Note [code = 92963-8] Goal Plan of Care Note [code = 49223-4] Goal Plan of Care Note [code = 60479-2] Goal Plan of Care Note [code = 82215-3] Goal Plan of Care Note [code = 18896-7] Goal Plan of Care Note [code = 58324-5] Goal Plan of Care Note [code = 60706-3] Goal Plan of Care Note [code = 62773-5] Goal Plan of Care Note [code = 18750-5] Goal Plan of Care Note [code = 61799-1] Goal Plan of Care Note [code = 51920-0] Goal Plan of Care Note [code = 45454-6] Goal Plan of Care Note [code = 41099-9] Goal Plan of Care Note [code = 60505-5] Goal Plan of Care Note [code = 51811-3] Goal Plan of Care Note [code = 46339-9] Goal Plan of Care Note [code = 86245-2] Goal Plan of Care Note [code = 06875-1] Goal Plan of Care Note [code = 59136-1] Goal Plan of Care Note [code = 18623-6] Goal Plan of Care Note [code = 45473-1] Goal Plan of Care Note [code = 26881-4] Goal Plan of Care Note [code = 83318-2] Goal Plan of Care Note [code = 72028-0] Goal Plan of Care Note [code = 53601-5] Goal Plan of Care Note [code = 84392-0] Goal Plan of Care Note [code = 35561-8] Goal Plan of Care Note [code = 03568-2] Goal Plan of Care Note [code = 64634-4] Goal Plan of Care Note [code = 06971-9] Goal Plan of Care Note [code = 07901-1] Goal Plan of Care Note [code = 18902-6] Goal Plan of Care Note [code = 61650-0] Goal Plan of Care Note [code = 21870-7] Goal Plan of Care Note [code = 44913-1] Goal Plan of Care Note [code = 90721-9] Goal Plan of Care Note [code = 85247-0] Goal Plan of Care Note [code = 94282-9] Goal Plan of Care Note [code = 79415-7] Goal Plan of Care Note [code = 38525-8] Goal Plan of Care Note [code = 17961-6] Goal Plan of Care Note [code = 11759-7] Goal Plan of Care Note [code = 01567-2] Goal Plan of Care Note [code = 02548-0] Goal Plan of Care Note [code = 48151-5] Goal Plan of Care Note [code = 65533-9] Goal Plan of Care Note [code = 82383-1] Goal Plan of Care Note [code = 11365-1] Goal Plan of Care Note [code = 77411-6] Goal Plan of Care Note [code = 40642-8] Goal Plan of Care Note [code = 95211-6] Goal Plan of Care Note [code = 60056-4] Goal Plan of Care Note [code = 97744-2] Goal Plan of Care Note [code = 89849-1] Goal Plan of Care Note [code = 14175-1] Goal Plan of Care Note [code = 91421-7] Goal Plan of Care Note [code = 36544-1] Goal Plan of Care Note [code = 81228-6] Goal Plan of Care Note [code = 80280-2] Goal Plan of Care Note [code = 88097-7] Goal Plan of Care Note [code = 12446-3] Goal Plan of Care Note [code = 72308-3] Goal Plan of Care Note [code = 14503-5] Goal Plan of Care Note [code = 38563-7] Goal Plan of Care Note [code = 82672-1] Goal Plan of Care Note [code = 96787-7] Goal Plan of Care Note [code = 67391-7] Goal Plan of Care Note [code = 95785-8] Goal Plan of Care Note [code = 69920-1] Goal Plan of Care Note [code = 18554-2] Goal Plan of Care Note [code = 33233-0] Goal Plan of Care Note [code = 08017-3] Goal Plan of Care Note [code = 08459-6] Goal Plan of Care Note [code = 46714-3] Goal Plan of Care Note [code = 25946-7] Goal Plan of Care Note [code = 41190-2] Goal Plan of Care Note [code = 85226-1] Goal Plan of Care Note [code = 33073-8] Goal Plan of Care Note [code = 20766-5] Goal Plan of Care Note [code = 63060-6] Goal Plan of Care Note [code = 22781-7] Goal Plan of Care Note [code = 32438-4] Goal Plan of Care Note [code = 63269-4] Goal Plan of Care Note [code = 22002-1] Goal Plan of Care Note [code = 15302-7] Goal Plan of Care Note [code = 17904-4] Goal Plan of Care Note [code = 05590-4] Goal Plan of Care Note [code = 92282-1] Goal Plan of Care Note [code = 57282-6] Goal Plan of Care Note [code = 93319-9] Goal Plan of Care Note [code = 87386-3] Goal Plan of Care Note [code = 37285-3] Goal Plan of Care Note [code = 94331-0] Goal Plan of Care Note [code = 15759-5] Goal Plan of Care Note [code = 27284-2] Goal Plan of Care Note [code = 78167-0] Goal Plan of Care Note [code = 33640-9] Goal Plan of Care Note [code = 45358-4] Goal Plan of Care Note [code = 54663-1] Goal Plan of Care Note [code = 84351-1] Goal Plan of Care Note [code = 91909-2] Goal Plan of Care Note [code = 01671-0] Goal Plan of Care Note [code = 38124-0] Goal Plan of Care Note [code = 34761-9] Goal Plan of Care Note [code = 77290-5] Goal Plan of Care Note [code = 83301-9] Goal Plan of Care Note [code = 01607-2] Goal Plan of Care Note [code = 78867-1] Goal Plan of Care Note [code = 93258-5] Goal Plan of Care Note [code = 62559-5] Goal Plan of Care Note [code = 49611-1] Goal Plan of Care Note [code = 68345-9] Goal Plan of Care Note [code = 35282-1] Goal Plan of Care Note [code = 27173-8] Goal Plan of Care Note [code = 59391-9] Goal Plan of Care Note [code = 10508-9] Goal Plan of Care Note [code = 52952-8] Goal Plan of Care Note [code = 55058-2] Goal Plan of Care Note [code = 87059-8] Goal Plan of Care Note [code = 56454-5] Goal Plan of Care Note [code = 50251-8] Goal Plan of Care Note [code = 79133-5] Goal Plan of Care Note [code = 64055-2] Goal Plan of Care Note [code = 09092-5] Goal Plan of Care Note [code = 96153-3] Goal Plan of Care Note [code = 04046-0] Goal Plan of Care Note [code = 55240-7] Goal Plan of Care Note [code = 53412-9] Goal Plan of Care Note [code = 86886-6] Goal Plan of Care Note [code = 51338-1] Goal Plan of Care Note [code = 67450-2] Encounters Start End Encounter Admission Attending Care Care Encounter Source Date/Time Date/Time Type Type Clinicians Facility Department ID 2022-04-14 2022-04-14 Outpatient [facility] [id number] 221 Kyrei 09:35:17 09:35:17 012 F Car 2022-04-14 2022-04-14 Outpatient [id number] [id number] 00:00:00 00:00:00 Visit 8y7c-39h2 m4n-93x6-w -g633-goi 076-edaf5f f7l3a3boo 3b7dfe 2022-03-24 2022-03-24 Outpatient [id number]- [id number] ea [id number]-9 00:00:00 00:00:00 Visit 489a-4b18 89a-4b18-8 -5j41-5by u72-6fsg42 [id number] 2017-12-01 2017-12-01 [facility] [id number] Common 09:06:00 09:06:[address] [facility] 2017-11-22 2017-11-22 [facility] 14 [id number] Common 13:28:00 13:28:[address] [facility] 2017-10-28 2017-10-28 [facility] 13 18466 Common 15:25:00 15:25:[address] [facility] 2017-10-27 2017-10-27 [facility] 13 91504 Common 11:53:00 11:53:[address] [facility] 2017-10-25 2017-10-25 [facility] 13 [id number] Common 13:30:00 13:30:00 t [facility] 2014-10-30 2014-11-01 [facility] [id number] Memoria 10:18:00 21:02:00 samia Collado 19 karly [facility] 2014-10-30 2014-11-01 Inpatient [facility] [id number] Memoria 10:18:00 21:02:00 samia Collado 19 l [facility] 2014-10-30 2014-11-01 Outpatient Santosh, 2.16.840. [id number] . [id number] 05:18:00 16:02:00 Aditya [id number]. [id number] 5.0.101 01 Results Test Description Test Time Test Comments Results Result Comments Source PAP TEST, THINPREP, IMAGED 2021-12-26 16:20:45 Test Item Value Reference Range Interpretation Comme nts SOURCE: (test code = Cervical/Endocervical 8001) SLIDES: (test code = 1 8011) LMP: (test code = SEE NOTE POST RALEIGH PAUSAL 8033) SPECIMEN ADEQUACY: (NOTE) Satisfac tory for (test code = 58543) evaluati on. Endocervical cells/transform ation zone component prese nt. INTERPRETATION: NILM/NO EPITH. ABNORMALITY;SEE (test code = 60168) BELOW -------- NEGATIVE FOR INTRAEPITHE LIAL LESION OR MALIGNANCY ( NILM) -- RED CAP: DON Banerjee(ASCP) (test code = 8101) QC TECHNOLOGIST: DON Hand(ASCP) IAC (test code = 8111) LOCATION: (test code (NOTE) Specime ns processed and = 47411) [facility] [address] [place] [address], Phone: , CLIA: [id number] CPT: (test code = (NOTE) 07157 UNLE SS OTHERWISE 8140) INDICATED, COMP UTER [...] consolidated pr ior Pap history is avai labaida as applicable. PAP TEST, THINPREP, [id number] 00:00:00 Test Item Value Reference Range Interpretation Comments SOURCE: (test code = Cervical/Endocervical 8001) SLIDES: (test code = 1 8011) LMP: (test code = 8021) SEE NOTE SPECIMEN ADEQUACY: (test (NOTE) code = 53158) INTERPRETATION: (test NILM/NO EPITH. code = 89176) ABNORMALITY;SEE BELOW RED CAP: (test Madhu FalconCT(ASCP) code = 8101) QC TECHNOLOGIST: (test Malek code = 8111) DON Vásquez(ASCP) IAC LOCATION: (test code = (NOTE) 29791) CPT: (test code = 8140) (NOTE) PAP TEST, THINPREP, [id number] 00:00:00 Test Item Value Reference Range Interpretation Comments SOURCE: (test code = Cervical/Endocervical 8001) SLIDES: (test code = 1 8011) LMP: (test code = 8021) SEE NOTE SPECIMEN ADEQUACY: (test (NOTE) code = 78351) INTERPRETATION: (test NILM/NO EPITH. code = 66224) ABNORMALITY;SEE BELOW RED CAP: (test Madhu FalconCT(ASCP) code = 8101) QC TECHNOLOGIST: (test Malek code = 8111) DON Vásquez(ASCP) IAC LOCATION: (test code = (NOTE) 82242) CPT: (test code = 8140) (NOTE) PAP TEST, THINPREP, [id number] 00:00:00 Test Item Value Reference Range Interpretation Comments SOURCE: (test code = Cervical/Endocervical 8001) SLIDES: (test code = 1 8011) LMP: (test code = 8021) SEE NOTE SPECIMEN ADEQUACY: (test (NOTE) code = 96235) INTERPRETATION: (test NILM/NO EPITH. code = 39152) ABNORMALITY;SEE BELOW RED CAP: (test Madhu FalconCT(ASCP) code = 8101) QC TECHNOLOGIST: (test Malek code = 8111) ThaliaCT(ASCP) IAC LOCATION: (test code = (NOTE) 76174) CPT: (test code = 8140) (NOTE) PAP TEST, THINPREP, [id number] 00:00:00 Test Item Value Reference Range Interpretation Comments SOURCE: (test code = Cervical/Endocervical 8001) SLIDES: (test code = 1 8011) LMP: (test code = 8021) SEE NOTE SPECIMEN ADEQUACY: (test (NOTE) code = 35231) INTERPRETATION: (test NILM/NO EPITH. code = 69846) ABNORMALITY;SEE BELOW RED CAP: (test Madhu Falcon,CT(ASCP) code = 8101) QC TECHNOLOGIST: (test Malek code = 8111) ThaliaCT(ASCP) IAC LOCATION: (test code = (NOTE) 67128) CPT: (test code = 8140) (NOTE) HPV HIGH RISK WITH GENOTYPE, [id number] 16:08:35 Test Item Value Reference Range Interpretation Comments HPV HIGH RISK INTERP NEGATIVE NEGATIVE (test code = 66585) HPV 16 (test code = NEGATIVE 34904) HPV 18 (test code = NEGATIVE 49343) HPV, HR, OTHER NEGATIVE Testing meth odology is GENOTYPES (test code real-ti me PCR utilizing = 56734) hydrolysis prob es with the Generation[employer] 4800 system. The yamilex t individually de [...] OTHERWISE INDIC ATED, ALL TESTING PERFORM ED [facility], [facility]. [address] [place] [address] LABORATORY DIR THONY: SHADY VAZQUEZ M.D. CLIA NUMBER [id number] [place] [id number] HPV HIGH RISK WITH GENOTYPE, [id number] 00:00:00 Test Item Value Reference Range Interpretation Comments HPV HIGH RISK INTERP (test code = NEGATIVE 02809) HPV 16 (test code = 50008) NEGATIVE HPV 18 (test code = 54698) NEGATIVE HPV, HR, OTHER GENOTYPES (test code NEGATIVE = 88424) HPV HIGH RISK WITH GENOTYPE, [id number] 00:00:00 Test Item Value Reference Range Interpretation Comments HPV HIGH RISK INTERP (test code = NEGATIVE 26135) HPV 16 (test code = 51146) NEGATIVE HPV 18 (test code = 37739) NEGATIVE HPV, HR, OTHER GENOTYPES (test code NEGATIVE = 21193) HPV HIGH RISK WITH GENOTYPE, [id number] 00:00:00 Test Item Value Reference Range Interpretation Comments HPV HIGH RISK INTERP (test code = NEGATIVE 31219) HPV 16 (test code = 02920) NEGATIVE HPV 18 (test code = 69388) NEGATIVE HPV, HR, OTHER GENOTYPES (test code NEGATIVE = 30356) HPV HIGH RISK WITH GENOTYPE, [id number] 00:00:00 Test Item Value Reference Range Interpretation Comments HPV HIGH RISK INTERP (test code = NEGATIVE 26443) HPV 16 (test code = 80840) NEGATIVE HPV 18 (test code = 54924) NEGATIVE HPV, HR, OTHER GENOTYPES (test code NEGATIVE = 38480) TSH, THIRD [id number] 00:30:50 Test Item Value Reference Range Interpretation Comments TSH, THIRD GENERATION (test code 6.320 UIU/ML 0.400-4.100 H = 2821) LIPID [id number] 00:15:36 Test Item Value Reference Range Interpretation [...] MOREINFORMATION , SEE CLIENT ANNOUNCE MENT AT [email or web address] RISK RATIO LDL/HDL 0.95 RATIO <3.22 (test code = 2238) COMPREHENSIVE METABOLIC [id number] 00:15:36 Test Item Value Reference Range Interpretation Comments GLUCOSE (test code = 109 MG/DL 70-99 H 2216) BUN (test code = 27 MG/DL 8-23 H 2207) CREATININE (test 1.82 MG/DL 0.60-1.30 H code = 2214) eGFR (2020 CKD-EPI) 31 ML/MIN/1.73 >60 L (test code = 58942) CALC BUN/CREAT (test 15 RATIO 6-28 code = 2235) SODIUM (test code = 136 MEQ/L 357-081 5410) POTASSIUM (test code 3.7 MEQ/L 3.5-5.4 = [...] 2204) AST (test code = 38 U/L 9-40 2217) ALT (test code = 37 U/L 5-40 2218) LIPID [id number] 00:00:00 Test Item Value Reference Range Interpretation Comments CHOLESTEROL (test code = 2210) 247 MG/DL TRIGLYCERIDES (test code = 2232) 265 MG/DL HDL CHOLESTEROL (test code = 2220) 107 MG/DL CALC LDL CHOL (test code = 2237) 102 MG/DL RISK RATIO LDL/HDL (test code = 0.95 RATIO 2238) LIPID [id number] 00:00:00 Test Item Value Reference Range Interpretation Comments CHOLESTEROL (test code = 2210) 247 MG/DL TRIGLYCERIDES (test code = 2232) 265 MG/DL HDL CHOLESTEROL (test code = 2220) 107 MG/DL CALC LDL CHOL (test code = 2237) 102 MG/DL RISK RATIO LDL/HDL (test code = 0.95 RATIO 2238) COMPREHENSIVE METABOLIC [id number] 00:00:00 Test Item Value Reference Range Interpretation Comments GLUCOSE (test code = 2217) 109 MG/DL BUN (test code = 2208) 27 MG/DL CREATININE (test code = 2214) 1.82 MG/DL eGFR (2020 CKD-EPI) (test code 31 ML/MIN/1.73 = 84902) CALC BUN/CREAT (test code = 15 RATIO [...] RATIO 2234) BILIRUBIN, TOTAL (test code = 0.8 MG/DL 2206) ALKALINE PHOSPHATASE (test 69 U/L code = 2204) AST (test code = 2218) 38 U/L ALT (test code = 2219) 37 U/L COMPREHENSIVE METABOLIC [id number] 00:00:00 Test Item Value Reference Range Interpretation Comments GLUCOSE (test code = 2217) 109 MG/DL BUN (test code = 2208) 27 MG/DL CREATININE (test code = 2214) 1.82 MG/DL eGFR (2020 CKD-EPI) (test code 31 ML/MIN/1.73 = 28151) CALC BUN/CREAT (test code = 15 RATIO 2235) SODIUM (test code = 2231) 136 MEQ/L POTASSIUM (test code = 2228) 3.7 MEQ/L CHLORIDE (test code = 2215) 94 MEQ/L CARBON DIOXIDE (test code = 21 MEQ/L 2205) CALCIUM (test code = 2209) 10.4 MG/DL PROTEIN, TOTAL (test code = 8.2 G/DL 2228) ALBUMIN (test code = 220) 4.9 G/DL CALC GLOBULIN (test code = 3.3 G/DL 2239) CALC A/G RATIO (test code = 1.5 RATIO 2233) BILIRUBIN, TOTAL (test code = 0.8 MG/DL 2206) ALKALINE PHOSPHATASE (test 69 U/L code = 2204) AST (test code = 2218) 38 U/L ALT (test code = 2219) 37 U/L [id number] 00:00:00 Test Item Value Reference Range Interpretation Comments TSH, THIRD GENERATION (test code 6.320 UIU/ML = 2821) [id number] 00:00:00 Test Item Value Reference Range Interpretation Comments TSH, THIRD GENERATION (test code 6.320 UIU/ML = 2821) [id number] 00:00:00 Test Item Value Reference Range Interpretation Comments TSH, THIRD GENERATION (test code 6.320 UIU/ML = 2821) LIPID [id number] 00:00:00 Test Item Value Reference Range Interpretation Comments CHOLESTEROL (test code = 2210) 247 MG/DL TRIGLYCERIDES (test code = 2232) 265 MG/DL HDL CHOLESTEROL (test code = 2220) 107 MG/DL CALC LDL CHOL (test code = 2237) 102 MG/DL RISK RATIO LDL/HDL (test code = 0.95 RATIO 2238) LIPID [id number] 00:00:00 Test Item Value Reference Range Interpretation Comments CHOLESTEROL (test code = 2210) 247 MG/DL TRIGLYCERIDES (test code = 2232) 265 MG/DL HDL CHOLESTEROL (test code = 2220) 107 MG/DL CALC LDL CHOL (test code = 2237) 102 MG/DL RISK RATIO LDL/HDL (test code = 0.95 RATIO 2238) COMPREHENSIVE METABOLIC [id number] 00:00:00 Test Item Value Reference Range Interpretation Comments GLUCOSE (test code = 2217) 109 MG/DL BUN (test code = 2208) 27 MG/DL CREATININE (test code = 2214) 1.82 MG/DL eGFR (2020 CKD-EPI) (test code 31 ML/MIN/1.73 = 04942) CALC BUN/CREAT (test code = 15 RATIO [...] code = 2219) 37 U/L COMPREHENSIVE METABOLIC [id number] 00:00:00 Test Item Value Reference Range Interpretation Comments GLUCOSE (test code = 2217) 109 MG/DL BUN (test code = 2208) 27 MG/DL CREATININE (test code = 2214) 1.82 MG/DL eGFR (2020 CKD-EPI) (test code 31 ML/MIN/1.73 = 48902) CALC BUN/CREAT (test code = 15 RATIO [...] ALT (test code = 2219) 37 U/L [id number] 00:00:00 Test Item Value Reference Range Interpretation Comments TSH, THIRD GENERATION (test code 6.320 UIU/ML = 2821) [id number] 00:00:00 Test Item Value Reference Range Interpretation Comments TSH, THIRD GENERATION (test code 6.320 UIU/ML = 2821) [id number] 00:00:00 Test Item Value Reference Range Interpretation Comments TSH, THIRD GENERATION (test code 6.320 UIU/ML = 2821) HEMOGLOBIN [id number] 03:29:50 Test Item Value Reference Range Interpretation Comments HEMOGLOBIN A1c (test code = 33997) 6.3 % 4.2-5.6 H CBC W/AUTO DIFF WITH [id number] 03:01:52 Test Item Value Reference Range Interpretation [...] message] code = 1065) WBC'S The system [employer] generated this result transmitted ref erence range: [...] 0.00-0.11 UNLESS O THERWISE (test code = 01067) INDICATE D, ALL TESTING PERFORM ED ATCLINICAL PATH [facility], [facility]. [address] [place], [place] [address] [place] [address] DIRECTOR: SHADY ACKERMAN M.D. CLIA NUMBER [id number] CAP ACCREDITATION N O. [id number] HEMOGLOBIN [id number] 00:00:00 Test Item Value Reference Range Interpretation Comments HEMOGLOBIN A1c (test code = 90385) 6.3 % HEMOGLOBIN [id number] 00:00:00 Test Item Value Reference Range Interpretation Comments HEMOGLOBIN A1c (test code = 39883) 6.3 % HEMOGLOBIN [id number] 00:00:00 Test Item Value Reference Range Interpretation Comments HEMOGLOBIN A1c (test code = 30740) 6.3 % CBC W/AUTO [id number] 00:00:00 Test Item Value Reference Range Interpretation [...] NUCLEATED RBCS (test code = 0.00 K/UL 04876) CBC W/AUTO [id number] 00:00:00 Test Item Value Reference Range Interpretation [...] NUCLEATED RBCS (test code = 0.00 K/UL 60005) CBC W/AUTO [id number] 00:00:00 Test Item Value Reference Range Interpretation [...] NUCLEATED RBCS (test code = 0.00 K/UL 72764) HEMOGLOBIN [id number] 00:00:00 Test Item Value Reference Range Interpretation Comments HEMOGLOBIN A1c (test code = 37026) 6.3 % HEMOGLOBIN [id number] 00:00:00 Test Item Value Reference Range Interpretation Comments HEMOGLOBIN A1c (test code = 90488) 6.3 % HEMOGLOBIN [id number] 00:00:00 Test Item Value Reference Range Interpretation Comments HEMOGLOBIN A1c (test code = 41685) 6.3 % CBC W/AUTO [id number] 00:00:00 Test Item Value Reference Range Interpretation [...] NUCLEATED RBCS (test code = 0.00 K/UL 47492) CBC W/AUTO [id number] 00:00:00 Test Item Value Reference Range Interpretation [...] NUCLEATED RBCS (test code = 0.00 K/UL 63851) CBC W/AUTO [id number] 00:00:00 Test Item Value Reference Range Interpretation [...] NUCLEATED RBCS (test code = 0.00 K/UL 25375) COMPREHENSIVE METABOLIC [id number] 00:00:00 Test Item Value Reference Range Interpretation Comments GLUCOSE (test code = 2217) 195 MG/DL BUN (test code = 2208) 15 MG/DL CREATININE (test code = 2214) 0.70 MG/DL eGFR AMER. (test code 108 ML/MIN/1.73 = 77471) eGFR NON- AMER. (test 93 ML/MIN/1.73 code = 27671) CALC BUN/CREAT (test code = 21 RATIO [...] code = 2219) 13 U/L COMPREHENSIVE METABOLIC [id number] 00:00:00 Test Item Value Reference Range Interpretation Comments GLUCOSE (test code = 2217) 195 MG/DL BUN (test code = 2208) 15 MG/DL CREATININE (test code = 2214) 0.70 MG/DL eGFR AMER. (test code 108 ML/MIN/1.73 = 88218) eGFR NON- AMER. (test 93 ML/MIN/1.73 code = 48127) CALC BUN/CREAT (test code = 21 RATIO [...] CALC GLOBULIN (test code = 2.7 G/DL 2239) CALC A/G RATIO (test code = 1.7 RATIO 4) BILIRUBIN, TOTAL (test code = 0.4 MG/DL 2206) ALKALINE PHOSPHATASE (test 63 U/L code = 2204) AST (test code = 2218) 16 U/L ALT (test code = 2219) 13 U/L LIPID [id number] 00:00:00 Test Item Value Reference Range Interpretation Comments CHOLESTEROL (test code = 2210) 257 MG/DL TRIGLYCERIDES (test code = 2232) 189 MG/DL HDL CHOLESTEROL (test code = 2220) 49 MG/DL CALC LDL CHOL (test code = 2237) 174 MG/DL RISK RATIO LDL/HDL (test code = 3.55 RATIO 2238) LIPID [id number] 00:00:00 Test Item Value Reference Range Interpretation Comments CHOLESTEROL (test code = 2210) 257 MG/DL TRIGLYCERIDES (test code = 2232) 189 MG/DL HDL CHOLESTEROL (test code = 2220) 49 MG/DL CALC LDL CHOL (test code = 2237) 174 MG/DL RISK RATIO LDL/HDL (test code = 3.55 RATIO 2238) HEMOGLOBIN [id number] 00:00:00 Test Item Value Reference Range Interpretation Comments HEMOGLOBIN A1c (test code = 78529) 9.2 % HEMOGLOBIN [id number] 00:00:00 Test Item Value Reference Range Interpretation Comments HEMOGLOBIN A1c (test code = 75719) 9.2 % HEMOGLOBIN [id number] 00:00:00 Test Item Value Reference Range Interpretation Comments HEMOGLOBIN A1c (test code = 73616) 9.2 % COMPREHENSIVE METABOLIC [id number] 00:00:00 Test Item Value Reference Range Interpretation Comments GLUCOSE (test code = 2217) 195 MG/DL BUN (test code = 2208) 15 MG/DL CREATININE (test code = 2214) 0.70 MG/DL eGFR AMER. (test code 108 ML/MIN/1.73 = 99703) eGFR NON- AMER. (test 93 ML/MIN/1.73 code = 56432) CALC BUN/CREAT (test code = 21 RATIO [...] code = 2219) 13 U/L COMPREHENSIVE METABOLIC [id number] 00:00:00 Test Item Value Reference Range Interpretation Comments GLUCOSE (test code = 2217) 195 MG/DL BUN (test code = 2208) 15 MG/DL CREATININE (test code = 2214) 0.70 MG/DL eGFR AMER. (test code 108 ML/MIN/1.73 = 99234) eGFR NON- AMER. (test 93 ML/MIN/1.73 code = 62414) CALC BUN/CREAT (test code = 21 RATIO [...] (test code = 2219) 13 U/L LIPID [id number] 00:00:00 Test Item Value Reference Range Interpretation Comments CHOLESTEROL (test code = 2210) 257 MG/DL TRIGLYCERIDES (test code = 2232) 189 MG/DL HDL CHOLESTEROL (test code = 2220) 49 MG/DL CALC LDL CHOL (test code = 2237) 174 MG/DL RISK RATIO LDL/HDL (test code = 3.55 RATIO 2238) LIPID [id number] 00:00:00 Test Item Value Reference Range Interpretation Comments CHOLESTEROL (test code = 2210) 257 MG/DL TRIGLYCERIDES (test code = 2232) 189 MG/DL HDL CHOLESTEROL (test code = 2220) 49 MG/DL CALC LDL CHOL (test code = 2237) 174 MG/DL RISK RATIO LDL/HDL (test code = 3.55 RATIO 2238) HEMOGLOBIN [id number] 00:00:00 Test Item Value Reference Range Interpretation Comments HEMOGLOBIN A1c (test code = 62033) 9.2 % HEMOGLOBIN [id number] 00:00:00 Test Item Value Reference Range Interpretation Comments HEMOGLOBIN A1c (test code = 63158) 9.2 % HEMOGLOBIN [id number] 00:00:00 Test Item Value Reference Range Interpretation Comments HEMOGLOBIN A1c (test code = 09684) 9.2 % COMPREHENSIVE METABOLIC [id number] 00:00:00 Test Item Value Reference Range Interpretation Comments GLUCOSE (test code = 2217) 199 MG/DL BUN (test code = 2208) 16 MG/DL CREATININE (test code = 2214) 0.85 MG/DL eGFR AMER. (test code 86 ML/MIN/1.73 = 90510) eGFR NON- AMER. (test 74 ML/MIN/1.73 code = 35773) CALC BUN/CREAT (test code = 19 RATIO 2235) SODIUM (test code = 2231) 138 MEQ/L POTASSIUM (test code = 2228) 4.1 MEQ/L CHLORIDE (test code = 2215) 98 MEQ/L CARBON DIOXIDE (test code = 24 MEQ/L 2205) CALCIUM (test code = 2209) 10.2 MG/DL PROTEIN, TOTAL (test code = 8.0 G/DL 2228) ALBUMIN (test code = 220) 4.8 G/DL CALC GLOBULIN (test code = 3.2 G/DL 2240) CALC A/G RATIO (test code = 1.5 RATIO 2234) BILIRUBIN, TOTAL (test code = 0.5 MG/DL 2207) ALKALINE PHOSPHATASE (test 118 U/L code = 2204) AST (test code = 2218) 18 U/L ALT (test code = 2219) 22 U/L COMPREHENSIVE METABOLIC [id number] 00:00:00 Test Item Value Reference Range Interpretation Comments GLUCOSE (test code = 2217) 199 MG/DL BUN (test code = 2208) 16 MG/DL CREATININE (test code = 2214) 0.85 MG/DL eGFR AMER. (test code 86 ML/MIN/1.73 = 44858) eGFR NON- AMER. (test 74 ML/MIN/1.73 code = 37586) CALC BUN/CREAT (test code = 19 RATIO [...] BILIRUBIN, TOTAL (test code = 0.5 MG/DL 2207) ALKALINE PHOSPHATASE (test 118 U/L code = 2204) AST (test code = 2218) 18 U/L ALT (test code = 2219) 22 U/L LIPID [id number] 00:00:00 Test Item Value Reference Range Interpretation Comments CHOLESTEROL (test code = 2210) 244 MG/DL TRIGLYCERIDES (test code = 2232) 226 MG/DL HDL CHOLESTEROL (test code = 2220) 57 MG/DL CALC LDL CHOL (test code = 2237) 151 MG/DL RISK RATIO LDL/HDL (test code = 2.65 RATIO 2238) LIPID [id number] 00:00:00 Test Item Value Reference Range Interpretation Comments CHOLESTEROL (test code = 2210) 244 MG/DL TRIGLYCERIDES (test code = 2232) 226 MG/DL HDL CHOLESTEROL (test code = 2220) 57 MG/DL CALC LDL CHOL (test code = 2237) 151 MG/DL RISK RATIO LDL/HDL (test code = 2.65 RATIO 2238) HEMOGLOBIN [id number] 00:00:00 Test Item Value Reference Range Interpretation Comments HEMOGLOBIN A1c (test code = 53173) 7.0 % HEMOGLOBIN [id number] 00:00:00 Test Item Value Reference Range Interpretation Comments HEMOGLOBIN A1c (test code = 48451) 7.0 % HEMOGLOBIN [id number] 00:00:00 Test Item Value Reference Range Interpretation Comments HEMOGLOBIN A1c (test code = 21338) 7.0 % COMPREHENSIVE METABOLIC [id number] 00:00:00 Test Item Value Reference Range Interpretation Comments GLUCOSE (test code = 2217) 199 MG/DL BUN (test code = 2208) 16 MG/DL CREATININE (test code = 2214) 0.85 MG/DL eGFR AMER. (test code 86 ML/MIN/1.73 = 42920) eGFR NON- AMER. (test 74 ML/MIN/1.73 code = 61306) CALC BUN/CREAT (test code = 19 RATIO [...] = 0.5 MG/DL 2206) ALKALINE PHOSPHATASE (test 118 U/L code = 2204) AST (test code = 2218) 18 U/L ALT (test code = 2219) 22 U/L COMPREHENSIVE METABOLIC [id number] 00:00:00 Test Item Value Reference Range Interpretation Comments GLUCOSE (test code = 2217) 199 MG/DL BUN (test code = 2208) 16 MG/DL CREATININE (test code = 2214) 0.85 MG/DL eGFR AMER. (test code 86 ML/MIN/1.73 = 87061) eGFR NON- AMER. (test 74 ML/MIN/1.73 code = 63388) CALC BUN/CREAT (test code = 19 RATIO [...] CALC GLOBULIN (test code = 3.2 G/DL 224) CALC A/G RATIO (test code = 1.5 RATIO 4) BILIRUBIN, TOTAL (test code = 0.5 MG/DL 2206) ALKALINE PHOSPHATASE (test 118 U/L code = 2204) AST (test code = 2218) 18 U/L ALT (test code = 2219) 22 U/L LIPID [id number] 00:00:00 Test Item Value Reference Range Interpretation Comments CHOLESTEROL (test code = 2210) 244 MG/DL TRIGLYCERIDES (test code = 2232) 226 MG/DL HDL CHOLESTEROL (test code = 2220) 57 MG/DL CALC LDL CHOL (test code = 2237) 151 MG/DL RISK RATIO LDL/HDL (test code = 2.65 RATIO 2238) LIPID [id number] 00:00:00 Test Item Value Reference Range Interpretation Comments CHOLESTEROL (test code = 2210) 244 MG/DL TRIGLYCERIDES (test code = 2232) 226 MG/DL HDL CHOLESTEROL (test code = 2220) 57 MG/DL CALC LDL CHOL (test code = 2237) 151 MG/DL RISK RATIO LDL/HDL (test code = 2.65 RATIO 2238) HEMOGLOBIN [id number] 00:00:00 Test Item Value Reference Range Interpretation Comments HEMOGLOBIN A1c (test code = 36730) 7.0 % HEMOGLOBIN [id number] 00:00:00 Test Item Value Reference Range Interpretation Comments HEMOGLOBIN A1c (test code = 44682) 7.0 % HEMOGLOBIN [id number] 00:00:00 Test Item Value Reference Range Interpretation Comments HEMOGLOBIN A1c (test code = 21254) 7.0 % SURGICAL PATHOLOGY [id number] 00:00:00 Test Item Value Reference Range Interpretation Comments DIAGNOSIS: (test code = 8200) (NOTE) COMMENTS: (test code = 8205) (NOTE) MICROSCOPIC DESCRIPTION: (test code = (NOTE) 8210) CLINICAL DATA: (test code = 8401) (NOTE) GROSS DESCRIPTION: (test code = 8220) (NOTE) PATHOLOGIST: (test code = 8250) (NOTE) CPT: (test code = 8400) (NOTE) SURGICAL PATHOLOGY [id number] 00:00:00 Test Item Value Reference Range Interpretation Comments DIAGNOSIS: (test code = 8200) (NOTE) COMMENTS: (test code = 8205) (NOTE) MICROSCOPIC DESCRIPTION: (test code = (NOTE) 8210) CLINICAL DATA: (test code = 8401) (NOTE) GROSS DESCRIPTION: (test code = 8220) (NOTE) PATHOLOGIST: (test code = 8250) (NOTE) CPT: (test code = 8400) (NOTE) SURGICAL PATHOLOGY [id number] 00:00:00 Test Item Value Reference Range Interpretation Comments DIAGNOSIS: (test code = 8200) (NOTE) COMMENTS: (test code = 8205) (NOTE) MICROSCOPIC DESCRIPTION: (test code = (NOTE) 8210) CLINICAL DATA: (test code = 8401) (NOTE) GROSS DESCRIPTION: (test code = 8220) (NOTE) PATHOLOGIST: (test code = 8250) (NOTE) CPT: (test code = 8400) (NOTE) SURGICAL PATHOLOGY [id number] 00:00:00 Test Item Value Reference Range Interpretation Comments DIAGNOSIS: (test code = 8200) (NOTE) COMMENTS: (test code = 8205) (NOTE) MICROSCOPIC DESCRIPTION: (test code = (NOTE) 8210) CLINICAL DATA: (test code = 8401) (NOTE) GROSS DESCRIPTION: (test code = 8220) (NOTE) PATHOLOGIST: (test code = 8250) (NOTE) CPT: (test code = 8400) (NOTE) SURGICAL PATHOLOGY [id number] 00:00:00 Test Item Value Reference Range Interpretation Comments DIAGNOSIS: (test code = 8200) (NOTE) COMMENTS: (test code = 8205) (NOTE) MICROSCOPIC DESCRIPTION: (test code = (NOTE) 8210) CLINICAL DATA: (test code = 8401) (NOTE) GROSS DESCRIPTION: (test code = 8220) (NOTE) PATHOLOGIST: (test code = 8250) (NOTE) CPT: (test code = 8400) (NOTE) SURGICAL PATHOLOGY [id number] 00:00:00 Test Item Value Reference Range Interpretation Comments DIAGNOSIS: (test code = 8200) (NOTE) COMMENTS: (test code = 8205) (NOTE) MICROSCOPIC DESCRIPTION: (test code = (NOTE) 8210) CLINICAL DATA: (test code = 8401) (NOTE) GROSS DESCRIPTION: (test code = 8220) (NOTE) PATHOLOGIST: (test code = 8250) (NOTE) CPT: (test code = 8400) (NOTE) SURGICAL PATHOLOGY [id number] 00:00:00 Test Item Value Reference Range Interpretation Comments DIAGNOSIS: (test code = 8200) (NOTE) COMMENTS: (test code = 8205) (NOTE) MICROSCOPIC DESCRIPTION: (test code = (NOTE) 8210) CLINICAL DATA: (test code = 8401) (NOTE) GROSS DESCRIPTION: (test code = 8220) (NOTE) PATHOLOGIST: (test code = 8250) (NOTE) CPT: (test code = 8400) (NOTE) SURGICAL PATHOLOGY [id number] 00:00:00 Test Item Value Reference Range Interpretation Comments DIAGNOSIS: (test code = 8200) (NOTE) COMMENTS: (test code = 8205) (NOTE) MICROSCOPIC DESCRIPTION: (test code = (NOTE) 8210) CLINICAL DATA: (test code = 8401) (NOTE) GROSS DESCRIPTION: (test code = 8220) (NOTE) PATHOLOGIST: (test code = 8250) (NOTE) CPT: (test code = 8400) (NOTE) PAP TEST, THINPREP, [id number] 00:00:00 Test Item Value Reference Range Interpretation Comments SOURCE: (test code = 8001) Cervical SLIDES: (test code = 8011) 1 LMP: (test code = 8021) 1998 SPECIMEN ADEQUACY: (test (NOTE) code = 96486) INTERPRETATION: (test code LSIL/EPITH. = 57842) ABNORMALITY; SEE BELOW OTHER COMMENTS: (test code (NOTE) = 8081) RED CAP: (test Elisha Cox, [place] code = 8101) (ASCP) PATHOLOGIST INTERPRETATION [employer] BY: (test code = 8122) LOCATION: (test code = (NOTE) 16095) CPT: (test code = 8140) (NOTE) PAP TEST, THINPREP, [id number] 00:00:00 Test Item Value Reference Range Interpretation Comments SOURCE: (test code = 8001) Cervical SLIDES: (test code = 8011) 1 LMP: (test code = 8021) 1998 SPECIMEN ADEQUACY: (test (NOTE) code = 76336) INTERPRETATION: (test code LSIL/EPITH. = 05468) ABNORMALITY; SEE BELOW OTHER COMMENTS: (test code (NOTE) = 8081) RED CAP: (test Elisha Cox, CT code = 8101) (ASCP) PATHOLOGIST INTERPRETATION [employer] BY: (test code = 8122) LOCATION: (test code = (NOTE) 23111) CPT: (test code = 8140) (NOTE) PAP TEST, THINPREP, [id number] 00:00:00 Test Item Value Reference Range Interpretation Comments SOURCE: (test code = 8001) Cervical SLIDES: (test code = 8011) 1 LMP: (test code = 8021) 1998 SPECIMEN ADEQUACY: (test (NOTE) code = 68120) INTERPRETATION: (test code LSIL/EPITH. = 63411) ABNORMALITY; SEE BELOW OTHER COMMENTS: (test code (NOTE) = 8081) RED CAP: (test Elisha Cox, CT code = 8101) (ASCP) PATHOLOGIST INTERPRETATION [employer] BY: (test code = 8122) LOCATION: (test code = (NOTE) 37320) CPT: (test code = 8140) (NOTE) PAP TEST, THINPREP, [id number] 00:00:00 Test Item Value Reference Range Interpretation Comments SOURCE: (test code = 8001) Cervical SLIDES: (test code = 8011) 1 LMP: (test code = 8021) 1998 SPECIMEN ADEQUACY: (test (NOTE) code = 38084) INTERPRETATION: (test code LSIL/EPITH. = 94929) ABNORMALITY; SEE BELOW OTHER COMMENTS: (test code (NOTE) = 8081) RED CAP: (test Elisha Cox, CT code = 8101) (ASCP) PATHOLOGIST INTERPRETATION [employer] BY: (test code = 8122) LOCATION: (test code = (NOTE) 49139) CPT: (test code = 8140) (NOTE) VAGINAL PATHOGENS DNA [id number] 00:00:00 Test Item Value Reference Range Interpretation Comments KEELY SPECIES (test code = ) NEGATIVE G. VAGINALIS (test code = 94935) POSITIVE T. VAGINALIS (test code = ) NEGATIVE VAGINAL PATHOGENS DNA [id number] 00:00:00 Test Item Value Reference Range Interpretation Comments KEELY SPECIES (test code = ) NEGATIVE G. VAGINALIS (test code = 82894) POSITIVE T. VAGINALIS (test code = 67062) NEGATIVE HPV HIGH RISK WITH GENOTYPE, [id number] 00:00:00 Test Item Value Reference Range Interpretation Comments HPV HIGH RISK INTERP (test code = POSITIVE 51497) HPV 16 (test code = 66109) NEGATIVE HPV 18 (test code = 80785) POSITIVE HPV, HR, OTHER GENOTYPES (test code POSITIVE = 36051) HPV HIGH RISK WITH GENOTYPE, [id number] 00:00:00 Test Item Value Reference Range Interpretation Comments HPV HIGH RISK INTERP (test code = POSITIVE 32105) HPV 16 (test code = 49275) NEGATIVE HPV 18 (test code = 40908) POSITIVE HPV, HR, OTHER GENOTYPES (test code POSITIVE = 18115) VAGINAL PATHOGENS DNA [id number] 00:00:00 Test Item Value Reference Range Interpretation Comments KEELY SPECIES (test code = ) NEGATIVE G. VAGINALIS (test code = 98842) POSITIVE T. VAGINALIS (test code = ) NEGATIVE VAGINAL PATHOGENS DNA [id number] 00:00:00 Test Item Value Reference Range Interpretation Comments KEELY SPECIES (test code = ) NEGATIVE G. VAGINALIS (test code = 10094) POSITIVE T. VAGINALIS (test code = 20383) NEGATIVE HPV HIGH RISK WITH GENOTYPE, [id number] 00:00:00 Test Item Value Reference Range Interpretation Comments HPV HIGH RISK INTERP (test code = POSITIVE 94003) HPV 16 (test code = 86492) NEGATIVE HPV 18 (test code = 44669) POSITIVE HPV, HR, OTHER GENOTYPES (test code POSITIVE = 82330) HPV HIGH RISK WITH GENOTYPE, [id number] 00:00:00 Test Item Value Reference Range Interpretation Comments HPV HIGH RISK INTERP (test code = POSITIVE 82619) HPV 16 (test code = 98256) NEGATIVE HPV 18 (test code = 47663) POSITIVE HPV, HR, OTHER GENOTYPES (test code POSITIVE = 02398) HEMOGLOBIN [id number] 00:00:00 Test Item Value Reference Range Interpretation Comments HEMOGLOBIN A1c (test code = 13782) 6.1 % HEMOGLOBIN [id number] 00:00:00 Test Item Value Reference Range Interpretation Comments HEMOGLOBIN A1c (test code = 49920) 6.1 % HEMOGLOBIN [id number] 00:00:00 Test Item Value Reference Range Interpretation Comments HEMOGLOBIN A1c (test code = 50664) 6.1 % LIPID [id number] 00:00:00 Test Item Value Reference Range Interpretation Comments CHOLESTEROL (test code = 2210) 252 MG/DL TRIGLYCERIDES (test code = 2232) 611 MG/DL HDL CHOLESTEROL (test code = 65 MG/DL 2220) CALC LDL CHOL (test code = 2237) (NOTE) MG/DL RISK RATIO LDL/HDL (test code = (NOTE) RATIO 2238) LIPID [id number] 00:00:00 Test Item Value Reference Range Interpretation Comments CHOLESTEROL (test code = 2210) 252 MG/DL TRIGLYCERIDES (test code = 2232) 611 MG/DL HDL CHOLESTEROL (test code = 65 MG/DL 2220) CALC LDL CHOL (test code = 2237) (NOTE) MG/DL RISK RATIO LDL/HDL (test code = (NOTE) RATIO 2238) COMPREHENSIVE METABOLIC [id number] 00:00:00 Test Item Value Reference Range Interpretation Comments GLUCOSE (test code = 2217) 121 MG/DL BUN (test code = 2208) 27 MG/DL CREATININE (test code = 2214) 1.49 MG/DL eGFR AMER. (test code 43 ML/MIN/1.73 = 38822) eGFR NON- AMER. (test 38 ML/MIN/1.73 code = 68233) CALC BUN/CREAT (test code = 18 RATIO 2235) SODIUM (test code = 2231) 137 MEQ/L POTASSIUM (test code = 2228) 3.8 MEQ/L CHLORIDE (test code = 2215) 95 MEQ/L CARBON DIOXIDE (test code = 22 MEQ/L 2205) CALCIUM (test code = 2209) 10.2 MG/DL PROTEIN, TOTAL (test code = 7.7 G/DL 2229) ALBUMIN (test code = 2201) 4.6 G/DL CALC GLOBULIN (test code = 3.1 G/DL 2240) CALC A/G RATIO (test code = 1.5 RATIO 2234) BILIRUBIN, TOTAL (test code = 0.6 MG/DL 2207) ALKALINE PHOSPHATASE (test 97 U/L code = 2204) AST (test code = 2218) 50 U/L ALT (test code = 2219) 43 U/L COMPREHENSIVE METABOLIC [id number] 00:00:00 Test Item Value Reference Range Interpretation Comments GLUCOSE (test code = 2217) 121 MG/DL BUN (test code = 2208) 27 MG/DL CREATININE (test code = 2214) 1.49 MG/DL eGFR AMER. (test code 43 ML/MIN/1.73 = 90737) eGFR NON- AMER. (test 38 ML/MIN/1.73 code = 43036) CALC BUN/CREAT (test code = 18 RATIO 2235) SODIUM (test code = 2231) 137 MEQ/L POTASSIUM (test code = 2228) 3.8 MEQ/L CHLORIDE (test code = 2215) 95 MEQ/L CARBON DIOXIDE (test code = 22 MEQ/L 2206) CALCIUM (test code = 2209) 10.2 MG/DL PROTEIN, TOTAL (test code = 7.7 G/DL 9) ALBUMIN (test code = 2201) 4.6 G/DL CALC GLOBULIN (test code = 3.1 G/DL 2240) CALC A/G RATIO (test code = 1.5 RATIO 2234) BILIRUBIN, TOTAL (test code = 0.6 MG/DL 2207) ALKALINE PHOSPHATASE (test 97 U/L code = 2204) AST (test code = 2218) 50 U/L ALT (test code = 2219) 43 U/L HEMOGLOBIN [id number] 00:00:00 Test Item Value Reference Range Interpretation Comments HEMOGLOBIN A1c (test code = 45847) 6.1 % HEMOGLOBIN [id number] 00:00:00 Test Item Value Reference Range Interpretation Comments HEMOGLOBIN A1c (test code = 60393) 6.1 % HEMOGLOBIN [id number] 00:00:00 Test Item Value Reference Range Interpretation Comments HEMOGLOBIN A1c (test code = 81098) 6.1 % LIPID [id number] 00:00:00 Test Item Value Reference Range Interpretation Comments CHOLESTEROL (test code = 2210) 252 MG/DL TRIGLYCERIDES (test code = 2232) 611 MG/DL HDL CHOLESTEROL (test code = 65 MG/DL 2220) CALC LDL CHOL (test code = 2237) (NOTE) MG/DL RISK RATIO LDL/HDL (test code = (NOTE) RATIO 2238) LIPID [id number] 00:00:00 Test Item Value Reference Range Interpretation Comments CHOLESTEROL (test code = 2210) 252 MG/DL TRIGLYCERIDES (test code = 2232) 611 MG/DL HDL CHOLESTEROL (test code = 65 MG/DL 2220) CALC LDL CHOL (test code = 2237) (NOTE) MG/DL RISK RATIO LDL/HDL (test code = (NOTE) RATIO 2238) COMPREHENSIVE METABOLIC [id number] 00:00:00 Test Item Value Reference Range Interpretation Comments GLUCOSE (test code = 2217) 121 MG/DL BUN (test code = 2208) 27 MG/DL CREATININE (test code = 2214) 1.49 MG/DL eGFR AMER. (test code 43 ML/MIN/1.73 = 86892) eGFR NON- AMER. (test 38 ML/MIN/1.73 code = 47099) CALC BUN/CREAT (test code = 18 RATIO [...] CALC GLOBULIN (test code = 3.1 G/DL 0) CALC A/G RATIO (test code = 1.5 RATIO 2234) BILIRUBIN, TOTAL (test code = 0.6 MG/DL 2206) ALKALINE PHOSPHATASE (test 97 U/L code = 2204) AST (test code = 2218) 50 U/L ALT (test code = 2219) 43 U/L COMPREHENSIVE METABOLIC [id number] 00:00:00 Test Item Value Reference Range Interpretation Comments GLUCOSE (test code = 2217) 121 MG/DL BUN (test code = 2208) 27 MG/DL CREATININE (test code = 2214) 1.49 MG/DL eGFR AMER. (test code 43 ML/MIN/1.73 = 18222) eGFR NON- AMER. (test 38 ML/MIN/1.73 code = 91141) CALC BUN/CREAT (test code = 18 RATIO 2235) SODIUM (test code = 2231) 137 MEQ/L POTASSIUM (test code = 2228) 3.8 MEQ/L CHLORIDE (test code = 2215) 95 MEQ/L CARBON DIOXIDE (test code = 22 MEQ/L 2205) CALCIUM (test code = 2209) 10.2 MG/DL PROTEIN, TOTAL (test code = 7.7 G/DL 2228) ALBUMIN (test code = 220) 4.6 G/DL CALC GLOBULIN (test code = 3.1 G/DL 2239) CALC A/G RATIO (test code = 1.5 RATIO 2233) BILIRUBIN, TOTAL (test code = 0.6 MG/DL 2206) ALKALINE PHOSPHATASE (test 97 U/L code = 2204) AST (test code = 2218) 50 U/L ALT (test code = 2219) 43 U/L HEMOGLOBIN [id number] 00:00:00 Test Item Value Reference Range Interpretation Comments HEMOGLOBIN A1c (test code = 89589) 8.5 % HEMOGLOBIN [id number] 00:00:00 Test Item Value Reference Range Interpretation Comments HEMOGLOBIN A1c (test code = 45132) 8.5 % HEMOGLOBIN [id number] 00:00:00 Test Item Value Reference Range Interpretation Comments HEMOGLOBIN A1c (test code = 60480) 8.5 % HEMOGLOBIN [id number] 00:00:00 Test Item Value Reference Range Interpretation Comments HEMOGLOBIN A1c (test code = 32245) 8.5 % HEMOGLOBIN [id number] 00:00:00 Test Item Value Reference Range Interpretation Comments HEMOGLOBIN A1c (test code = 73705) 8.5 % HEMOGLOBIN [id number] 00:00:00 Test Item Value Reference Range Interpretation Comments HEMOGLOBIN A1c (test code = 74378) 8.5 % HEMOGLOBIN [id number] 00:00:00 Test Item Value Reference Range Interpretation Comments HEMOGLOBIN A1c (test code = 00869) 9.1 % HEMOGLOBIN [id number] 00:00:00 Test Item Value Reference Range Interpretation Comments HEMOGLOBIN A1c (test code = 72496) 9.1 % HEMOGLOBIN [id number] 00:00:00 Test Item Value Reference Range Interpretation Comments HEMOGLOBIN A1c (test code = 57096) 9.1 % COMPREHENSIVE METABOLIC [id number] 00:00:00 Test Item Value Reference Range Interpretation Comments GLUCOSE (test code = 2217) 176 MG/DL BUN (test code = 2208) 16 MG/DL CREATININE (test code = 2214) 0.87 MG/DL eGFR AMER. (test code 83 ML/MIN/1.73 = 19114) eGFR NON- AMER. (test 72 ML/MIN/1.73 code = 35663) CALC BUN/CREAT (test code = 18 RATIO [...] code = 2219) 21 U/L COMPREHENSIVE METABOLIC [id number] 00:00:00 Test Item Value Reference Range Interpretation Comments GLUCOSE (test code = 2217) 176 MG/DL BUN (test code = 2208) 16 MG/DL CREATININE (test code = 2214) 0.87 MG/DL eGFR AMER. (test code 83 ML/MIN/1.73 = 76480) eGFR NON- AMER. (test 72 ML/MIN/1.73 code = 98746) CALC BUN/CREAT (test code = 18 RATIO [...] A/G RATIO (test code = 1.7 RATIO 223) BILIRUBIN, TOTAL (test code = 0.4 MG/DL 2206) ALKALINE PHOSPHATASE (test 89 U/L code = 2204) AST (test code = 2218) 19 U/L ALT (test code = 2219) 21 U/L LIPID [id number] 00:00:00 Test Item Value Reference Range Interpretation Comments CHOLESTEROL (test code = 2210) 228 MG/DL TRIGLYCERIDES (test code = 2232) 268 MG/DL HDL CHOLESTEROL (test code = 2220) 54 MG/DL CALC LDL CHOL (test code = 2237) 133 MG/DL RISK RATIO LDL/HDL (test code = 2.46 RATIO 2238) LIPID [id number] 00:00:00 Test Item Value Reference Range Interpretation Comments CHOLESTEROL (test code = 2210) 228 MG/DL TRIGLYCERIDES (test code = 2232) 268 MG/DL HDL CHOLESTEROL (test code = 2220) 54 MG/DL CALC LDL CHOL (test code = 2237) 133 MG/DL RISK RATIO LDL/HDL (test code = 2.46 RATIO 2238) HEMOGLOBIN [id number] 00:00:00 Test Item Value Reference Range Interpretation Comments HEMOGLOBIN A1c (test code = 36485) 9.1 % HEMOGLOBIN [id number] 00:00:00 Test Item Value Reference Range Interpretation Comments HEMOGLOBIN A1c (test code = 06233) 9.1 % HEMOGLOBIN [id number] 00:00:00 Test Item Value Reference Range Interpretation Comments HEMOGLOBIN A1c (test code = 50606) 9.1 % COMPREHENSIVE METABOLIC [id number] 00:00:00 Test Item Value Reference Range Interpretation Comments GLUCOSE (test code = 2217) 176 MG/DL BUN (test code = 2208) 16 MG/DL CREATININE (test code = 2214) 0.87 MG/DL eGFR AMER. (test code 83 ML/MIN/1.73 = 83032) eGFR NON- AMER. (test 72 ML/MIN/1.73 code = 02918) CALC BUN/CREAT (test code = 18 RATIO 2235) SODIUM (test code = 2231) 137 MEQ/L POTASSIUM (test code = 2228) 3.5 MEQ/L CHLORIDE (test code = 2215) 93 MEQ/L CARBON DIOXIDE (test code = 27 MEQ/L 2206) CALCIUM (test code = 2209) 10.3 MG/DL [...] code = 2219) 21 U/L COMPREHENSIVE METABOLIC [id number] 00:00:00 Test Item Value Reference Range Interpretation Comments GLUCOSE (test code = 2217) 176 MG/DL BUN (test code = 2208) 16 MG/DL CREATININE (test code = 2214) 0.87 MG/DL eGFR AMER. (test code 83 ML/MIN/1.73 = 84466) eGFR NON- AMER. (test 72 ML/MIN/1.73 code = 71830) CALC BUN/CREAT (test code = 18 RATIO 2235) SODIUM (test code = 2231) 137 MEQ/L POTASSIUM (test code = 2228) 3.5 MEQ/L CHLORIDE (test code = 2215) 93 MEQ/L CARBON DIOXIDE (test code = 27 MEQ/L 2206) CALCIUM (test code = 2209) 10.3 MG/DL [...] (test code = 2219) 21 U/L LIPID [id number] 00:00:00 Test Item Value Reference Range Interpretation Comments CHOLESTEROL (test code = 2210) 228 MG/DL TRIGLYCERIDES (test code = 2232) 268 MG/DL HDL CHOLESTEROL (test code = 2220) 54 MG/DL CALC LDL CHOL (test code = 2237) 133 MG/DL RISK RATIO LDL/HDL (test code = 2.46 RATIO 2238) LIPID [id number] 00:00:00 Test Item Value Reference Range Interpretation Comments CHOLESTEROL (test code = 2210) 228 MG/DL TRIGLYCERIDES (test code = 2232) 268 MG/DL HDL CHOLESTEROL (test code = 2220) 54 MG/DL CALC LDL CHOL (test code = 2237) 133 MG/DL RISK RATIO LDL/HDL (test code = 2.46 RATIO 2238) SURGICAL PATHOLOGY [id number] 00:00:00 Test Item Value Reference Range Interpretation Comments DIAGNOSIS: (test code = 8200) (NOTE) COMMENTS: (test code = 8205) (NOTE) MICROSCOPIC DESCRIPTION: (test code = (NOTE) 8210) CLINICAL DATA: (test code = 8401) (NOTE) GROSS DESCRIPTION: (test code = 8220) (NOTE) PATHOLOGIST: (test code = 8250) (NOTE) CPT: (test code = 8400) (NOTE) SURGICAL PATHOLOGY [id number] 00:00:00 Test Item Value Reference Range Interpretation Comments DIAGNOSIS: (test code = 8200) (NOTE) COMMENTS: (test code = 8205) (NOTE) MICROSCOPIC DESCRIPTION: (test code = (NOTE) 8210) CLINICAL DATA: (test code = 8401) (NOTE) GROSS DESCRIPTION: (test code = 8220) (NOTE) PATHOLOGIST: (test code = 8250) (NOTE) CPT: (test code = 8400) (NOTE) SURGICAL PATHOLOGY [id number] 00:00:00 Test Item Value Reference Range Interpretation Comments DIAGNOSIS: (test code = 8200) (NOTE) COMMENTS: (test code = 8205) (NOTE) MICROSCOPIC DESCRIPTION: (test code = (NOTE) 8210) CLINICAL DATA: (test code = 8401) (NOTE) GROSS DESCRIPTION: (test code = 8220) (NOTE) PATHOLOGIST: (test code = 8250) (NOTE) CPT: (test code = 8400) (NOTE) SURGICAL PATHOLOGY [id number] 00:00:00 Test Item Value Reference Range Interpretation Comments DIAGNOSIS: (test code = 8200) (NOTE) COMMENTS: (test code = 8205) (NOTE) MICROSCOPIC DESCRIPTION: (test code = (NOTE) 8210) CLINICAL DATA: (test code = 8401) (NOTE) GROSS DESCRIPTION: (test code = 8220) (NOTE) PATHOLOGIST: (test code = 8250) (NOTE) CPT: (test code = 8400) (NOTE) PAP TEST, THINPREP, [id number] 00:00:00 Test Item Value Reference Range Interpretation Comments SOURCE: (test code = 8001) Cervical/Endocervic al SLIDES: (test code = 8011) 1 LMP: (test code = 8021) SEE NOTE SPECIMEN ADEQUACY: (test (NOTE) code = 25862) INTERPRETATION: (test code LSIL/EPITH. = 35461) ABNORMALITY; SEE BELOW OTHER COMMENTS: (test code (NOTE) = 8081) RED CAP: (test Zeke code = 8101) DON Garcia(ASCP) PATHOLOGIST INTERPRETATION Nancy Flores BY: (test code = 8122) M.D. LOCATION: (test code = (NOTE) 15404) CPT: (test code = 8140) (NOTE) PAP TEST, THINPREP, [id number] 00:00:00 Test Item Value Reference Range Interpretation Comments SOURCE: (test code = 8001) Cervical/Endocervic al SLIDES: (test code = 8011) 1 LMP: (test code = 8021) SEE NOTE SPECIMEN ADEQUACY: (test (NOTE) code = 59878) INTERPRETATION: (test code LSIL/EPITH. = 38709) ABNORMALITY; SEE BELOW OTHER COMMENTS: (test code (NOTE) = 8081) RED CAP: (test Zeke code = 8101) DON Garcia(ASCP) PATHOLOGIST INTERPRETATION Nancy Flores BY: (test code = 8122) M.D. LOCATION: (test code = (NOTE) 42531) CPT: (test code = 8140) (NOTE) PAP TEST, THINPREP, [id number] 00:00:00 Test Item Value Reference Range Interpretation Comments SOURCE: (test code = 8001) Cervical/Endocervic al SLIDES: (test code = 8011) 1 LMP: (test code = 8021) SEE NOTE SPECIMEN ADEQUACY: (test (NOTE) code = 09561) INTERPRETATION: (test code LSIL/EPITH. = 42221) ABNORMALITY; SEE BELOW OTHER COMMENTS: (test code (NOTE) = 8081) RED CAP: (test Zeke code = 8101) DON Garcia(ASCP) PATHOLOGIST INTERPRETATION Nancy Flores BY: (test code = 8122) [place] LOCATION: (test code = (NOTE) 87941) CPT: (test code = 8140) (NOTE) PAP TEST, THINPREP, [id number] 00:00:00 Test Item Value Reference Range Interpretation Comments SOURCE: (test code = 8001) Cervical/Endocervic al SLIDES: (test code = 8011) 1 LMP: (test code = 8021) SEE NOTE SPECIMEN ADEQUACY: (test (NOTE) code = 53665) INTERPRETATION: (test code LSIL/EPITH. = 79116) ABNORMALITY; SEE BELOW OTHER COMMENTS: (test code (NOTE) = 8081) RED CAP: (test Zeke code = 8101) DON Garcia(ASCP) PATHOLOGIST INTERPRETATION Nancy Flores BY: (test code = 8122) [place] LOCATION: (test code = (NOTE) 36199) CPT: (test code = 8140) (NOTE) VAGINAL PATHOGENS DNA [id number] 00:00:00 Test Item Value Reference Range Interpretation Comments KEELY SPECIES (test code = ) NEGATIVE G. VAGINALIS (test code = 35002) POSITIVE T. VAGINALIS (test code = 21697) NEGATIVE VAGINAL PATHOGENS DNA [id number] 00:00:00 Test Item Value Reference Range Interpretation Comments KEELY SPECIES (test code = 72497) NEGATIVE G. VAGINALIS (test code = 20459) POSITIVE T. VAGINALIS (test code = 84967) NEGATIVE HPV HIGH RISK WITH GENOTYPE, [id number] 00:00:00 Test Item Value Reference Range Interpretation Comments HPV HIGH RISK INTERP (test code = POSITIVE 66804) HPV 16 (test code = 36914) NEGATIVE HPV 18 (test code = 06414) POSITIVE HPV, HR, OTHER GENOTYPES (test code POSITIVE = 80662) HPV HIGH RISK WITH GENOTYPE, [id number] 00:00:00 Test Item Value Reference Range Interpretation Comments HPV HIGH RISK INTERP (test code = POSITIVE 42952) HPV 16 (test code = 58695) NEGATIVE HPV 18 (test code = 15497) POSITIVE HPV, HR, OTHER GENOTYPES (test code POSITIVE = 22034) VAGINAL PATHOGENS DNA [id number] 00:00:00 Test Item Value Reference Range Interpretation Comments KEELY SPECIES (test code = ) NEGATIVE G. VAGINALIS (test code = 40992) POSITIVE T. VAGINALIS (test code = 24663) NEGATIVE VAGINAL PATHOGENS DNA [id number] 00:00:00 Test Item Value Reference Range Interpretation Comments KEELY SPECIES (test code = ) NEGATIVE G. VAGINALIS (test code = 98649) POSITIVE T. VAGINALIS (test code = 76311) NEGATIVE HPV HIGH RISK WITH GENOTYPE, [id number] 00:00:00 Test Item Value Reference Range Interpretation Comments HPV HIGH RISK INTERP (test code = POSITIVE 87538) HPV 16 (test code = 59780) NEGATIVE HPV 18 (test code = 20398) POSITIVE HPV, HR, OTHER GENOTYPES (test code POSITIVE = 04267) HPV HIGH RISK WITH GENOTYPE, [id number] 00:00:00 Test Item Value Reference Range Interpretation Comments HPV HIGH RISK INTERP (test code = POSITIVE 56849) HPV 16 (test code = 28799) NEGATIVE HPV 18 (test code = 94589) POSITIVE HPV, HR, OTHER GENOTYPES (test code POSITIVE = 79293) BASIC METABOLIC [id number] 05:52:00 Test Item Value Reference Range Interpretation [...] PATIEN TS. CBC W/PLT COUNT & AUTO [id number] 04:21:00 Test Item Value Reference Range Interpretation [...] PERCENT (BEAKER) (test code = 2801) POCT-GLUCOSE [id number] 22:00:00 Test Item Value Reference Range Interpretation Comments POC-GLUCOSE METER 148 mg/dL 70-110 H TESTED AT [place] [address] ([facility]) (test code = [facility] 1538) [address] POCT-GLUCOSE [id number] 17:06:00 Test Item Value Reference Range Interpretation Comments POC-GLUCOSE METER 224 mg/dL 70-110 H TESTED AT [place] [address] ([facility]) (test code = [facility] 1538) [address] POCT-GLUCOSE [id number] 12:39:00 Test Item Value Reference Range Interpretation Comments POC-GLUCOSE METER 214 mg/dL 70-110 H TESTED AT [place] [address] ([facility]) (test code = [facility] 1538) [address] POCT-GLUCOSE [id number] 08:26:00 Test Item Value Reference Range Interpretation Comments POC-GLUCOSE METER 166 mg/dL 70-110 H TESTED AT [place] [address] ([facility]) (test code = [facility] 1538) [address] COMPREHENSIVE METABOLIC [id number] 05:17:00 Test Item Value Reference Range Interpretation [...] S NOT APPLICABLE FOR DIALYSIS PATIEN TS. [id number] 05:14:00 Test Item Value Reference Range Interpretation Comments PHOSPHORUS (BEAKER) (test code = 2.9 mg/dL 2.3-4.7 604) [id number] 05:14:00 Test Item Value Reference Range Interpretation Comments MAGNESIUM (BEAKER) (test code = 1.6 mg/dL 1.6-2.6 627) CBC W/PLT COUNT & AUTO [id number] 04:48:00 Test Item Value Reference Range Interpretation [...] PERCENT (BEAKER) (test code = 2801) POCT-GLUCOSE [id number] 22:42:00 Test Item Value Reference Range Interpretation Comments POC-GLUCOSE METER 184 mg/dL 70-110 H TESTED AT [facility] [facility] (test code = [place] 1538) [address] POCT-GLUCOSE [id number] 18:51:00 Test Item Value Reference Range Interpretation Comments POC-GLUCOSE METER 220 mg/dL 70-110 H TESTED AT [facility] 67[address] (BEAKER) (test code = [place] 1538) [address] [id number] 16:07:00 Test Item Value Reference Range Interpretation Comments MAGNESIUM (BEAKER) (test code = 1.8 mg/dL 1.6-2.6 627) [id number] 16:07:00 Test Item Value Reference Range Interpretation Comments POTASSIUM (BEAKER) (test code = 4.1 meq/L 3.5-5.1 379) POCT-GLUCOSE [id number] 15:47:00 Test Item Value Reference Range Interpretation Comments POC-GLUCOSE METER 215 mg/dL 70-110 H TESTED AT [facility] 67 (BEAKER) (test code = [facility] 1538) [address] [id number] 10:16:00 Test Item Value Reference Range Interpretation Comments MAGNESIUM (BEAKER) (test code = 1.7 mg/dL 1.6-2.6 627) POCT-GLUCOSE [id number] 09:25:00 Test Item Value Reference Range Interpretation Comments POC-GLUCOSE METER 156 mg/dL 70-110 H TESTED AT [place] [address] (BEAKER) (test code = [facility] 1538) [address] BASIC METABOLIC [id number] 06:32:00 Test Item Value Reference Range Interpretation [...] PATIEN TS. CBC W/PLT COUNT & AUTO [id number] 05:42:00 Test Item Value Reference Range Interpretation [...] 417) IMMATURE GRANULOCYTES-RELATIVE 0 % 0-1 PERCENT ([place]) (test code = 2801) POCT-GLUCOSE [id number] 22:05:00 Test Item Value Reference Range Interpretation Comments POC-GLUCOSE METER 255 mg/dL 70-110 H TESTED AT [facility] 67[address] ([place]) (test code = [place] 1538) [address] MR, BRAIN, WITHOUT [id number] 19:23:00Reason for exam:->StrokeWhat is the patient's sedation [...] cerebral arteries: Normal flow-related enhancement withinthe bilateral SLEEP TECH P1-P2 segments without flow-limiting stenosis. Bilateral functional type steam pan sponger.Additional findings: None. MRA NECK:Common carotid arteries: Unremarkable. [...] MDReport Verified Date/Time: 12/08/2018 19:23:05 Reading Location: [address] Neuro Reading Room MR, MRA, NECK, WITHOUT IV [id number] 19:23:00FINAL REPORT MR, BRAIN, WITHOUT CONTRAST, MR, [...] are within normal limits. No obstructive paran jennfier sinus disease. Additional findings: Bilateral T2 hyperintense [...] cerebral arteries: Normal flow-related enhancement withinthe bilateral SLEEP TECH P1-P2 segments without flow-limiting stenosis. Bilateral functional type steam pan sponger.Additional findings: None. MRA NECK:Common carotid arteries: Unremarkable. [...] MDReport Verified Date/Time: 12/08/2018 19:23:05 Reading Location: [address] Neuro Reading Room MR, MRA, BRAIN, WITHOUT [id number] 19:23:00Reason for exam:->StrokeWhat is the patient's sedation [...] cerebral arteries: Normal flow-related enhancement withinthe bilateral SLEEP TECH P1-P2 segments without flow-limiting stenosis. Bilateral functional type steam pan sponger.Additional findings: None. MRA NECK:Common carotid arteries: Unremarkable. [...] Holly Verified Date/Time: 12/08/2018 19:23:05 Reading Location: [facility] B1 C013V Neuro Reading Room -GLUCOSE [id number] 19:03:00 Test Item Value Reference Range Interpretation Comments POC-GLUCOSE METER 158 mg/dL 70-110 H TESTED AT [facility] 6720 (BEAKER) (test code = [place] 1538) [address] [id number] 17:33:00 Test Item Value Reference Range Interpretation Comments POTASSIUM (BEAKER) (test code = 4.0 meq/L 3.5-5.1 379) [id number] 17:33:00 Test Item Value Reference Range Interpretation Comments MAGNESIUM (BEAKER) (test code = 2.4 mg/dL 1.6-2.6 627) [id number] 14:55:00 Test Item Value Reference Range Interpretation Comments RPR SCREEN (BEAKER) (test code = Nonreactive Nonreactive 420) [id number] 12:28:00 Test Item Value Reference Range Interpretation Comments POTASSIUM (BEAKER) (test code = 2.9 meq/L 3.5-5.1 L 379) TROPONIN [id number] 10:59:00 Test Item Value Reference Range Interpretation [...] failure, acidosis, acute neurological disease, and persistent tachyarrhythmia.[id number] 10:50:00 Test Item Value Reference Range Interpretation Comments MAGNESIUM (BEAKER) (test code = 1.8 mg/dL 1.6-2.6 627) HEMOGLOBIN [id number] 07:49:00 Test Item Value Reference Range Interpretation Comments HEMOGLOBIN A1C (BEAKER) (test code = 8.1 % 4.3-6.1 H 368) HIV-1 ANTIGEN WITH HIV-1/2 [id number] 06:03:00 Test Item Value Reference Range Interpretation Comments HIV-1 ANTIGEN WITH HIV 1\\T\\2 Nonreactive Nonreactive ANTIBODY (2) (BEAKER) (test code = 2586) [id number] 05:54:00 Test Item Value Reference Range Interpretation Comments POTASSIUM (BEAKER) (test code = 2.8 meq/L 3.5-5.1 L 379) VITAMIN B12 AND [id number] 03:31:00 Test Item Value Reference Range Interpretation Comments VITAMIN B12 (BEAKER) (test code = 1168 pg/mL 213-816 H 774) FOLATE (BEAKER) (test code = 362) > ng/mL >=7.0 TSH/FREE T4 IF [id number] 03:24:00 Test Item Value Reference Range Interpretation Comments THYROID STIMULATING HORMONE 2.19 uIU/mL 0.35-4.94 (BEAKER) (test code = 772) BASIC METABOLIC [id number] 02:06:00 Test Item Value Reference Range Interpretation [...] m DATA TO CALCULA TE ESTIMATED GFR. [id number] 02:04:00 Test Item Value Reference Range Interpretation Comments MAGNESIUM (BEAKER) 1.5 mg/dL 1.6-2.6 L Specimen slightly (test code = 627) hemolyzed FastingLIPID [id number] 02:04:00 Test Item Value Reference Range Interpretation Comments TRIGLYCERIDES (BEAKER) 135 mg/dL Speci men slightly (test code = 540) hemolyzed CHOLESTEROL (BEAKER) 151 mg/dL Specime n slightly (test code = 631) hemolyzed HDL CHOLESTEROL (BEAKER) 43 mg/dL (test code = 976) LDL CHOLESTEROL 81 mg/dL CALCULATED (BEAKER) (test code = 633) Triglyceride Reference Range: Low Risk <150 Borderline 150-199 High Risk 200- 499 Very High Risk >=500Cholesterol Reference Range: Low Risk <200 Borderline 200-239 High Risk >240HDL Cholesterol Reference Range: Low Risk >=60 High Risk <40LDL Cholesterol Reference Range: Optimal <100 Near Optimal 100-129 Borderline 130-159 High 160-189 Very High >=190 FastingCBC W/PLT COUNT & AUTO [id number] 01:36:00 Test Item Value Reference Range Interpretation [...] 0-1 PERCENT (BEAKER) (test code = 2801) [id number] 23:06:00 Test Item Value Reference Range Interpretation Comments ETHANOL (BEAKER) (test code = 400) < mg/dL <=10 TROPONIN [id number] 22:58:00 Test Item Value Reference Range Interpretation [...] acute neurological disease, and persistent tachyarrhythmia.BASIC METABOLIC [id number] 22:56:00 Test Item Value Reference Range Interpretation [...] DATA TO CALCULA TE ESTIMATED GFR. URINALYSIS [id number] 22:41:00 Test Item Value Reference Range Interpretation Comments RBC UA (BEAKER) (test code = 519) 1 /HPF WBC UA (BEAKER) (test code = 520) < /HPF SQUAMOUS EPITHELIAL (BEAKER) (test 7 /HPF code = 516) HYALINE CASTS (BEAKER) (test code = 2 /LPF 514) URINALYSIS WITH MICROSCOPIC IF [id number] 22:36:00 Test Item Value Reference Range Interpretation [...] SOURCE(BEAKER) (test code = 2795) BASIC METABOLIC [id number] 19:01:00 Test Item Value Reference Range Interpretation [...] m DATA TO CALCULA TE ESTIMATED GFR. [id number] 19:01:00 Test Item Value Reference Range Interpretation Comments MAGNESIUM (BEAKER) (test code = 0.7 mg/dL 1.6-2.6 LL 627) [id number] 18:58:00 Test Item Value Reference Range Interpretation Comments PHOSPHORUS (BEAKER) (test code = 3.3 mg/dL 2.3-4.7 604) HEPATIC FUNCTION [id number] 18:58:00 Test Item Value Reference Range Interpretation [...] = 36 U/L 6-55 347) COMPREHENSIVE METABOLIC [id number] 00:00:00 Test Item Value Reference Range Interpretation Comments GLUCOSE (test code = 2217) 206 MG/DL BUN (test code = 2208) 10 MG/DL CREATININE (test code = 2214) 0.83 MG/DL eGFR AMER. (test code 89 ML/MIN/1.73 = 44131) eGFR NON- AMER. (test 77 ML/MIN/1.73 code = 79238) CALC BUN/CREAT (test code = 12 RATIO 2235) SODIUM (test code = 2231) 138 MEQ/L POTASSIUM (test code = 2228) 3.6 MEQ/L CHLORIDE (test code = 2215) 89 MEQ/L CARBON DIOXIDE (test code = 28 MEQ/L 2206) CALCIUM (test code = 2209) 10.5 MG/DL PROTEIN, TOTAL (test code = 8.5 G/DL 2228) ALBUMIN (test code = 2201) 5.4 G/DL CALC GLOBULIN (test code = 3.1 G/DL 2240) CALC A/G RATIO (test code = 1.7 RATIO 2234) BILIRUBIN, TOTAL (test code = 1.1 MG/DL 2206) ALKALINE PHOSPHATASE (test 75 U/L code = 2204) AST (test code = 2218) 35 U/L ALT (test code = 2219) 32 U/L COMPREHENSIVE METABOLIC [id number] 00:00:00 Test Item Value Reference Range Interpretation Comments GLUCOSE (test code = 2217) 206 MG/DL BUN (test code = 2208) 10 MG/DL CREATININE (test code = 2214) 0.83 MG/DL eGFR AMER. (test code 89 ML/MIN/1.73 = 69435) eGFR NON- AMER. (test 77 ML/MIN/1.73 code = 05385) CALC BUN/CREAT (test code = 12 RATIO 2235) SODIUM (test code = 2231) 138 MEQ/L POTASSIUM (test code = 2228) 3.6 MEQ/L CHLORIDE (test code = 2215) 89 MEQ/L CARBON DIOXIDE (test code = 28 MEQ/L 2206) CALCIUM (test code = 2209) 10.5 MG/DL PROTEIN, TOTAL (test code = 8.5 G/DL 2228) ALBUMIN (test code = 2201) 5.4 G/DL CALC GLOBULIN (test code = 3.1 G/DL 2240) CALC A/G RATIO (test code = 1.7 RATIO 2234) BILIRUBIN, TOTAL (test code = 1.1 MG/DL 2206) ALKALINE PHOSPHATASE (test 75 U/L code = 2204) AST (test code = 2218) 35 U/L ALT (test code = 2219) 32 U/L LIPID [id number] 00:00:00 Test Item Value Reference Range Interpretation Comments CHOLESTEROL (test code = 2210) 420 MG/DL TRIGLYCERIDES (test code = 2232) 262 MG/DL HDL CHOLESTEROL (test code = 2220) 95 MG/DL CALC LDL CHOL (test code = 2237) 273 MG/DL RISK RATIO LDL/HDL (test code = 2.87 RATIO 2238) LIPID [id number] 00:00:00 Test Item Value Reference Range Interpretation Comments CHOLESTEROL (test code = 2210) 420 MG/DL TRIGLYCERIDES (test code = 2232) 262 MG/DL HDL CHOLESTEROL (test code = 2220) 95 MG/DL CALC LDL CHOL (test code = 2237) 273 MG/DL RISK RATIO LDL/HDL (test code = 2.87 RATIO 2238) CBC W/AUTO [id number] 00:00:00 Test Item Value Reference Range Interpretation [...] code = 1015) 330 K/UL CBC W/AUTO [id number] 00:00:00 Test Item Value Reference Range Interpretation [...] code = 1015) 330 K/UL CBC W/AUTO [id number] 00:00:00 Test Item Value Reference Range Interpretation [...] COUNT (test code = 1015) 330 K/UL [id number] 00:00:00 Test Item Value Reference Range Interpretation Comments AMYLASE (test code = 2205) 48 U/L [id number] 00:00:00 Test Item Value Reference Range Interpretation Comments AMYLASE (test code = 2205) 48 U/L [id number] 00:00:00 Test Item Value Reference Range Interpretation Comments LIPASE (test code = 2058) 69 U/L [id number] 00:00:00 Test Item Value Reference Range Interpretation Comments LIPASE (test code = 2058) 69 U/L [id number] 00:00:00 Test Item Value Reference Range Interpretation Comments LIPASE (test code = 2058) 69 U/L COMPREHENSIVE METABOLIC [id number] 00:00:00 Test Item Value Reference Range Interpretation Comments GLUCOSE (test code = 2217) 206 MG/DL BUN (test code = 2208) 10 MG/DL CREATININE (test code = 2214) 0.83 MG/DL eGFR AMER. (test code 89 ML/MIN/1.73 = 09010) eGFR NON- AMER. (test 77 ML/MIN/1.73 code = 49780) CALC BUN/CREAT (test code = 12 RATIO 2235) SODIUM (test code = 2231) 138 MEQ/L POTASSIUM (test code = 2228) 3.6 MEQ/L CHLORIDE (test code = 2215) 89 MEQ/L CARBON DIOXIDE (test code = 28 MEQ/L 220) CALCIUM (test code = 2209) 10.5 MG/DL PROTEIN, TOTAL (test code = 8.5 G/DL 2228) ALBUMIN (test code = 2201) 5.4 G/DL CALC GLOBULIN (test code = 3.1 G/DL 2240) CALC A/G RATIO (test code = 1.7 RATIO 2234) BILIRUBIN, TOTAL (test code = 1.1 MG/DL 2206) ALKALINE PHOSPHATASE (test 75 U/L code = 2204) AST (test code = 2218) 35 U/L ALT (test code = 2219) 32 U/L COMPREHENSIVE METABOLIC [id number] 00:00:00 Test Item Value Reference Range Interpretation Comments GLUCOSE (test code = 2217) 206 MG/DL BUN (test code = 2208) 10 MG/DL CREATININE (test code = 2214) 0.83 MG/DL eGFR AMER. (test code 89 ML/MIN/1.73 = 45483) eGFR NON- AMER. (test 77 ML/MIN/1.73 code = 98527) CALC BUN/CREAT (test code = 12 RATIO 2235) SODIUM (test code = 2231) 138 MEQ/L POTASSIUM (test code = 2228) 3.6 MEQ/L CHLORIDE (test code = 2215) 89 MEQ/L CARBON DIOXIDE (test code = 28 MEQ/L 2206) CALCIUM (test code = 2209) 10.5 MG/DL PROTEIN, TOTAL (test code = 8.5 G/DL 9) ALBUMIN (test code = 2201) 5.4 G/DL CALC GLOBULIN (test code = 3.1 G/DL 2240) CALC A/G RATIO (test code = 1.7 RATIO 2234) BILIRUBIN, TOTAL (test code = 1.1 MG/DL 2207) ALKALINE PHOSPHATASE (test 75 U/L code = 2204) AST (test code = 2218) 35 U/L ALT (test code = 2219) 32 U/L LIPID [id number] 00:00:00 Test Item Value Reference Range Interpretation Comments CHOLESTEROL (test code = 2210) 420 MG/DL TRIGLYCERIDES (test code = 2232) 262 MG/DL HDL CHOLESTEROL (test code = 2220) 95 MG/DL CALC LDL CHOL (test code = 2237) 273 MG/DL RISK RATIO LDL/HDL (test code = 2.87 RATIO 2238) LIPID [id number] 00:00:00 Test Item Value Reference Range Interpretation Comments CHOLESTEROL (test code = 2210) 420 MG/DL TRIGLYCERIDES (test code = 2232) 262 MG/DL HDL CHOLESTEROL (test code = 2220) 95 MG/DL CALC LDL CHOL (test code = 2237) 273 MG/DL RISK RATIO LDL/HDL (test code = 2.87 RATIO 2238) CBC W/AUTO [id number] 00:00:00 Test Item Value Reference Range Interpretation [...] code = 1015) 330 K/UL CBC W/AUTO [id number] 00:00:00 Test Item Value Reference Range Interpretation [...] code = 1015) 330 K/UL CBC W/AUTO [id number] 00:00:00 Test Item Value Reference Range Interpretation [...] COUNT (test code = 1015) 330 K/UL [id number] 00:00:00 Test Item Value Reference Range Interpretation Comments AMYLASE (test code = 2205) 48 U/L [id number] 00:00:00 Test Item Value Reference Range Interpretation Comments AMYLASE (test code = 2205) 48 U/L [id number] 00:00:00 Test Item Value Reference Range Interpretation Comments LIPASE (test code = 2058) 69 U/L [id number] 00:00:00 Test Item Value Reference Range Interpretation Comments LIPASE (test code = 2058) 69 U/L [id number] 00:00:00 Test Item Value Reference Range Interpretation Comments LIPASE (test code = 2058) 69 U/L LIPID [id number] 00:00:00 Test Item Value Reference Range Interpretation Comments CHOLESTEROL (test code = 2210) 283 MG/DL TRIGLYCERIDES (test code = 2232) 206 MG/DL HDL CHOLESTEROL (test code = 2220) 86 MG/DL CALC LDL CHOL (test code = 2237) 156 MG/DL RISK RATIO LDL/HDL (test code = 1.81 RATIO 2238) LIPID [id number] 00:00:00 Test Item Value Reference Range Interpretation Comments CHOLESTEROL (test code = 2210) 283 MG/DL TRIGLYCERIDES (test code = 2232) 206 MG/DL HDL CHOLESTEROL (test code = 2220) 86 MG/DL CALC LDL CHOL (test code = 2237) 156 MG/DL RISK RATIO LDL/HDL (test code = 1.81 RATIO 2238) HEMOGLOBIN [id number] 00:00:00 Test Item Value Reference Range Interpretation Comments HEMOGLOBIN A1c (test code = 70326) 6.9 % HEMOGLOBIN [id number] 00:00:00 Test Item Value Reference Range Interpretation Comments HEMOGLOBIN A1c (test code = 59188) 6.9 % HEMOGLOBIN [id number] 00:00:00 Test Item Value Reference Range Interpretation Comments HEMOGLOBIN A1c (test code = 97133) 6.9 % COMPREHENSIVE METABOLIC [id number] 00:00:00 Test Item Value Reference Range Interpretation Comments GLUCOSE (test code = 2217) 131 MG/DL BUN (test code = 2208) 15 MG/DL CREATININE (test code = 2214) 1.01 MG/DL eGFR AMER. (test code 71 ML/MIN/1.73 = 46682) eGFR NON- AMER. (test 61 ML/MIN/1.73 code = 37096) CALC BUN/CREAT (test code = 15 RATIO 2235) SODIUM (test code = 2231) 141 MEQ/L POTASSIUM (test code = 2228) 3.8 MEQ/L CHLORIDE (test code = 2215) 99 MEQ/L CARBON DIOXIDE (test code = 27 MEQ/L 2205) CALCIUM (test code = 2209) 9.9 MG/DL PROTEIN, TOTAL (test code = 7.4 G/DL 2228) ALBUMIN (test code = 220) 4.6 G/DL CALC GLOBULIN (test code = 2.8 G/DL 2239) CALC A/G RATIO (test code = 1.6 RATIO 2233) BILIRUBIN, TOTAL (test code = 0.4 MG/DL 2206) ALKALINE PHOSPHATASE (test 66 U/L code = 2204) AST (test code = 2218) 51 U/L ALT (test code = 2219) 37 U/L COMPREHENSIVE METABOLIC [id number] 00:00:00 Test Item Value Reference Range Interpretation Comments GLUCOSE (test code = 2217) 131 MG/DL BUN (test code = 2208) 15 MG/DL CREATININE (test code = 2214) 1.01 MG/DL eGFR AMER. (test code 71 ML/MIN/1.73 = 26785) eGFR NON- AMER. (test 61 ML/MIN/1.73 code = 70573) CALC BUN/CREAT (test code = 15 RATIO [...] A/G RATIO (test code = 1.6 RATIO 2234) BILIRUBIN, TOTAL (test code = 0.4 MG/DL 2206) ALKALINE PHOSPHATASE (test 66 U/L code = 2204) AST (test code = 2218) 51 U/L ALT (test code = 2219) 37 U/L LIPID [id number] 00:00:00 Test Item Value Reference Range Interpretation Comments CHOLESTEROL (test code = 2210) 283 MG/DL TRIGLYCERIDES (test code = 2232) 206 MG/DL HDL CHOLESTEROL (test code = 2220) 86 MG/DL CALC LDL CHOL (test code = 2237) 156 MG/DL RISK RATIO LDL/HDL (test code = 1.81 RATIO 2238) LIPID [id number] 00:00:00 Test Item Value Reference Range Interpretation Comments CHOLESTEROL (test code = 2210) 283 MG/DL TRIGLYCERIDES (test code = 2232) 206 MG/DL HDL CHOLESTEROL (test code = 2220) 86 MG/DL CALC LDL CHOL (test code = 2237) 156 MG/DL RISK RATIO LDL/HDL (test code = 1.81 RATIO 2238) HEMOGLOBIN [id number] 00:00:00 Test Item Value Reference Range Interpretation Comments HEMOGLOBIN A1c (test code = 26975) 6.9 % HEMOGLOBIN [id number] 00:00:00 Test Item Value Reference Range Interpretation Comments HEMOGLOBIN A1c (test code = 43847) 6.9 % HEMOGLOBIN [id number] 00:00:00 Test Item Value Reference Range Interpretation Comments HEMOGLOBIN A1c (test code = 81152) 6.9 % COMPREHENSIVE METABOLIC [id number] 00:00:00 Test Item Value Reference Range Interpretation Comments GLUCOSE (test code = 2217) 131 MG/DL BUN (test code = 2208) 15 MG/DL CREATININE (test code = 2214) 1.01 MG/DL eGFR AMER. (test code 71 ML/MIN/1.73 = 66625) eGFR NON- AMER. (test 61 ML/MIN/1.73 code = 24678) CALC BUN/CREAT (test code = 15 RATIO [...] CALC GLOBULIN (test code = 2.8 G/DL 0) CALC A/G RATIO (test code = 1.6 RATIO 2234) BILIRUBIN, TOTAL (test code = 0.4 MG/DL 2206) ALKALINE PHOSPHATASE (test 66 U/L code = 2204) AST (test code = 2218) 51 U/L ALT (test code = 2219) 37 U/L COMPREHENSIVE METABOLIC [id number] 00:00:00 Test Item Value Reference Range Interpretation Comments GLUCOSE (test code = 2217) 131 MG/DL BUN (test code = 2208) 15 MG/DL CREATININE (test code = 2214) 1.01 MG/DL eGFR AMER. (test code 71 ML/MIN/1.73 = 27892) eGFR NON- AMER. (test 61 ML/MIN/1.73 code = 32167) CALC BUN/CREAT (test code = 15 RATIO [...] A/G RATIO (test code = 1.6 RATIO 2233) BILIRUBIN, TOTAL (test code = 0.4 MG/DL 2206) ALKALINE PHOSPHATASE (test 66 U/L code = 220) AST (test code = 2218) 51 U/L ALT (test code = 2219) 37 U/L HEMOGLOBIN [id number] 00:00:00 Test Item Value Reference Range Interpretation Comments HEMOGLOBIN A1c (test code = 04909) 6.5 % HEMOGLOBIN [id number] 00:00:00 Test Item Value Reference Range Interpretation Comments HEMOGLOBIN A1c (test code = 88602) 6.5 % HEMOGLOBIN [id number] 00:00:00 Test Item Value Reference Range Interpretation Comments HEMOGLOBIN A1c (test code = 23603) 6.5 % CBC W/AUTO [id number] 00:00:00 Test Item Value Reference Range Interpretation [...] code = 1015) 291 K/UL CBC W/AUTO [id number] 00:00:00 Test Item Value Reference Range Interpretation [...] code = 1015) 291 K/UL CBC W/AUTO [id number] 00:00:00 Test Item Value Reference Range Interpretation [...] code = 1015) 291 K/UL COMPREHENSIVE METABOLIC [id number] 00:00:00 Test Item Value Reference Range Interpretation Comments GLUCOSE (test code = 2217) 133 MG/DL BUN (test code = 2208) 9 MG/DL CREATININE (test code = 2214) 0.67 MG/DL eGFR AMER. (test code 113 ML/MIN/1.73 = 62159) eGFR NON- AMER. (test 98 ML/MIN/1.73 code = 48730) CALC BUN/CREAT (test code = 13 RATIO 2235) SODIUM (test code = 2231) 139 MEQ/L POTASSIUM (test code = 2228) 4.3 MEQ/L CHLORIDE (test code = 2215) 99 MEQ/L CARBON DIOXIDE (test code = 24 MEQ/L 2205) CALCIUM (test code = 2209) 9.8 MG/DL PROTEIN, TOTAL (test code = 7.2 G/DL 222) ALBUMIN (test code = 2201) 4.8 G/DL CALC GLOBULIN (test code = 2.4 G/DL 2240) CALC A/G RATIO (test code = 2.0 RATIO 2234) BILIRUBIN, TOTAL (test code = 0.2 MG/DL 2206) ALKALINE PHOSPHATASE (test 60 U/L code = 2204) AST (test code = 2218) 34 U/L ALT (test code = 2219) 42 U/L COMPREHENSIVE METABOLIC [id number] 00:00:00 Test Item Value Reference Range Interpretation Comments GLUCOSE (test code = 2217) 133 MG/DL BUN (test code = 2208) 9 MG/DL CREATININE (test code = 2214) 0.67 MG/DL eGFR AMER. (test code 113 ML/MIN/1.73 = 30138) eGFR NON- AMER. (test 98 ML/MIN/1.73 code = 57361) CALC BUN/CREAT (test code = 13 RATIO 2235) SODIUM (test code = 2231) 139 MEQ/L POTASSIUM (test code = 2228) 4.3 MEQ/L CHLORIDE (test code = 2215) 99 MEQ/L CARBON DIOXIDE (test code = 24 MEQ/L 2205) CALCIUM (test code = 2209) 9.8 MG/DL [...] (test code = 2219) 42 U/L LIPID [id number] 00:00:00 Test Item Value Reference Range Interpretation Comments CHOLESTEROL (test code = 2210) 234 MG/DL TRIGLYCERIDES (test code = 2232) 216 MG/DL HDL CHOLESTEROL (test code = 2220) 56 MG/DL CALC LDL CHOL (test code = 2237) 135 MG/DL RISK RATIO LDL/HDL (test code = 2.41 RATIO 2238) LIPID [id number] 00:00:00 Test Item Value Reference Range Interpretation [...] TSH (test code = 2821) 2.8 UIU/ML HEMOGLOBIN [id number] 00:00:00 Test Item Value Reference Range Interpretation Comments HEMOGLOBIN A1c (test code = 95691) 6.5 % HEMOGLOBIN [id number] 00:00:00 Test Item Value Reference Range Interpretation Comments HEMOGLOBIN A1c (test code = 16670) 6.5 % HEMOGLOBIN [id number] 00:00:00 Test Item Value Reference Range Interpretation Comments HEMOGLOBIN A1c (test code = 14745) 6.5 % CBC W/AUTO [id number] 00:00:00 Test Item Value Reference Range Interpretation [...] code = 1015) 291 K/UL CBC W/AUTO [id number] 00:00:00 Test Item Value Reference Range Interpretation [...] code = 1015) 291 K/UL CBC W/AUTO [id number] 00:00:00 Test Item Value Reference Range Interpretation [...] code = 1015) 291 K/UL COMPREHENSIVE METABOLIC [id number] 00:00:00 Test Item Value Reference Range Interpretation Comments GLUCOSE (test code = 2217) 133 MG/DL BUN (test code = 2208) 9 MG/DL CREATININE (test code = 2214) 0.67 MG/DL eGFR AMER. (test code 113 ML/MIN/1.73 = 72798) eGFR NON- AMER. (test 98 ML/MIN/1.73 code = 23501) CALC BUN/CREAT (test code = 13 RATIO 2235) SODIUM (test code = 2231) 139 MEQ/L POTASSIUM (test code = 2228) 4.3 MEQ/L CHLORIDE (test code = 2215) 99 MEQ/L CARBON DIOXIDE (test code = 24 MEQ/L 2205) CALCIUM (test code = 2209) 9.8 MG/DL PROTEIN, TOTAL (test code = 7.2 G/DL 222) ALBUMIN (test code = 2201) 4.8 G/DL CALC GLOBULIN (test code = 2.4 G/DL 2240) CALC A/G RATIO (test code = 2.0 RATIO 2234) BILIRUBIN, TOTAL (test code = 0.2 MG/DL 2206) ALKALINE PHOSPHATASE (test 60 U/L code = 2204) AST (test code = 2218) 34 U/L ALT (test code = 2219) 42 U/L COMPREHENSIVE METABOLIC [id number] 00:00:00 Test Item Value Reference Range Interpretation Comments GLUCOSE (test code = 2217) 133 MG/DL BUN (test code = 2208) 9 MG/DL CREATININE (test code = 2214) 0.67 MG/DL eGFR AMER. (test code 113 ML/MIN/1.73 = 03932) eGFR NON- AMER. (test 98 ML/MIN/1.73 code = 37355) CALC BUN/CREAT (test code = 13 RATIO [...] (test code = 2219) 42 U/L LIPID [id number] 00:00:00 Test Item Value Reference Range Interpretation Comments CHOLESTEROL (test code = 2210) 234 MG/DL TRIGLYCERIDES (test code = 2232) 216 MG/DL HDL CHOLESTEROL (test code = 2220) 56 MG/DL CALC LDL CHOL (test code = 2237) 135 MG/DL RISK RATIO LDL/HDL (test code = 2.41 RATIO 2238) LIPID [id number] 00:00:00 Test Item Value Reference Range Interpretation [...] code = 2821) 2.8 UIU/ML COMPREHENSIVE METABOLIC [id number] 00:00:00 Test Item Value Reference Range Interpretation Comments GLUCOSE (test code = 2217) 131 MG/DL BUN (test code = 2208) 16 MG/DL CREATININE (test code = 2214) 1.66 MG/DL eGFR AMER. (test code 40 ML/MIN/1.73 = 82412) eGFR NON- AMER. (test 34 ML/MIN/1.73 code = 78218) CALCULATED BUN/CREAT (test 10 RATIO code = 2235) SODIUM (test code = 2231) 138 MEQ/L POTASSIUM (test code = 2228) 4.2 MEQ/L CHLORIDE (test code = 2215) 98 MEQ/L CARBON DIOXIDE (test code = 25 MEQ/L 2205) CALCIUM (test code = 2209) [...] code = 2219) 46 U/L COMPREHENSIVE METABOLIC [id number] 00:00:00 Test Item Value Reference Range Interpretation Comments GLUCOSE (test code = 2217) 131 MG/DL BUN (test code = 2208) 16 MG/DL CREATININE (test code = 2214) 1.66 MG/DL eGFR AMER. (test code 40 ML/MIN/1.73 = 05728) eGFR NON- AMER. (test 34 ML/MIN/1.73 code = 43613) CALCULATED BUN/CREAT (test 10 RATIO code = 2235) SODIUM (test code = 2231) 138 MEQ/L POTASSIUM (test code = 2228) 4.2 MEQ/L CHLORIDE (test code = 2215) 98 MEQ/L CARBON DIOXIDE (test code = 25 MEQ/L 2205) CALCIUM (test code = 2209) [...] (test code = 2219) 46 U/L LIPID [id number] 00:00:00 Test Item Value Reference Range Interpretation Comments CHOLESTEROL (test code = 2210) 230 MG/DL TRIGLYCERIDES (test code = 2232) 226 MG/DL HDL CHOLESTEROL (test code = 2220) 53 MG/DL CALCULATED LDL CHOL (test code = 132 MG/DL 2237) RISK RATIO LDL/HDL (test code = 2.49 RATIO 2238) LIPID [id number] 00:00:00 Test Item Value Reference Range Interpretation Comments CHOLESTEROL (test code = 2210) 230 MG/DL TRIGLYCERIDES (test code = 2232) 226 MG/DL HDL CHOLESTEROL (test code = 2220) 53 MG/DL CALCULATED LDL CHOL (test code = 132 MG/DL 2237) RISK RATIO LDL/HDL (test code = 2.49 RATIO 2238) CBC W/AUTO [id number] 00:00:00 Test Item Value Reference Range Interpretation [...] code = 1015) 108 K/UL CBC W/AUTO [id number] 00:00:00 Test Item Value Reference Range Interpretation [...] code = 1015) 108 K/UL CBC W/AUTO [id number] 00:00:00 Test Item Value Reference Range Interpretation [...] (test code = 1015) 108 K/UL HEMOGLOBIN [id number] 00:00:00 Test Item Value Reference Range Interpretation Comments HEMOGLOBIN A1c (test code = 21450) 6.1 % HEMOGLOBIN [id number] 00:00:00 Test Item Value Reference Range Interpretation Comments HEMOGLOBIN A1c (test code = 60152) 6.1 % HEMOGLOBIN [id number] 00:00:00 Test Item Value Reference Range Interpretation Comments HEMOGLOBIN A1c (test code = 80653) 6.1 % [id number] 00:00:00 Test Item Value Reference Range Interpretation Comments TSH (test code = 2821) 5.7 UIU/ML [id number] 00:00:00 Test Item Value Reference Range Interpretation Comments TSH (test code = 2821) 5.7 UIU/ML [id number] 00:00:00 Test Item Value Reference Range Interpretation Comments TSH (test code = 2821) 5.7 UIU/ML VITAMIN D, 25 [id number] 00:00:00 Test Item Value Reference Range Interpretation Comments VITAMIN D, 25 OH (test code = 4958) 7 NG/ML VITAMIN D, 25 [id number] 00:00:00 Test Item Value Reference Range Interpretation Comments VITAMIN D, 25 OH (test code = 4958) 7 NG/ML VITAMIN B 12 AND FOLIC [id number] 00:00:00 Test Item Value Reference Range Interpretation Comments VITAMIN B-12 (test code = 2840) 569 PG/ML FOLIC ACID (test code = 2695) 16.8 NG/ML VITAMIN B 12 AND FOLIC [id number] 00:00:00 Test Item Value Reference Range Interpretation Comments VITAMIN B-12 (test code = 2840) 569 PG/ML FOLIC ACID (test code = 2695) 16.8 NG/ML COMPREHENSIVE METABOLIC [id number] 00:00:00 Test Item Value Reference Range Interpretation Comments GLUCOSE (test code = 2217) 131 MG/DL BUN (test code = 2208) 16 MG/DL CREATININE (test code = 2214) 1.66 MG/DL eGFR AMER. (test code 40 ML/MIN/1.73 = 26077) eGFR NON- AMER. (test 34 ML/MIN/1.73 code = 90969) CALCULATED BUN/CREAT (test 10 RATIO code = 2235) SODIUM (test code = 2231) 138 MEQ/L POTASSIUM (test code = 2228) 4.2 MEQ/L CHLORIDE (test code = 2215) 98 MEQ/L CARBON DIOXIDE (test code = 25 MEQ/L 2205) CALCIUM (test code = 2209) [...] code = 2219) 46 U/L COMPREHENSIVE METABOLIC [id number] 00:00:00 Test Item Value Reference Range Interpretation Comments GLUCOSE (test code = 2217) 131 MG/DL BUN (test code = 2208) 16 MG/DL CREATININE (test code = 2214) 1.66 MG/DL eGFR AMER. (test code 40 ML/MIN/1.73 = 11610) eGFR NON- AMER. (test 34 ML/MIN/1.73 code = 57893) CALCULATED BUN/CREAT (test 10 RATIO code = 2235) SODIUM (test code = 2231) 138 MEQ/L POTASSIUM (test code = 2228) 4.2 MEQ/L CHLORIDE (test code = 2215) 98 MEQ/L CARBON DIOXIDE (test code = 25 MEQ/L 2205) CALCIUM (test code = 2209) [...] (test code = 2219) 46 U/L LIPID [id number] 00:00:00 Test Item Value Reference Range Interpretation Comments CHOLESTEROL (test code = 2210) 230 MG/DL TRIGLYCERIDES (test code = 2232) 226 MG/DL HDL CHOLESTEROL (test code = 2220) 53 MG/DL CALCULATED LDL CHOL (test code = 132 MG/DL 2236) RISK RATIO LDL/HDL (test code = 2.49 RATIO 2238) LIPID [id number] 00:00:00 Test Item Value Reference Range Interpretation Comments CHOLESTEROL (test code = 2210) 230 MG/DL TRIGLYCERIDES (test code = 2232) 226 MG/DL HDL CHOLESTEROL (test code = 2220) 53 MG/DL CALCULATED LDL CHOL (test code = 132 MG/DL 2236) RISK RATIO LDL/HDL (test code = 2.49 RATIO 2238) CBC W/AUTO [id number] 00:00:00 Test Item Value Reference Range Interpretation [...] code = 1015) 108 K/UL CBC W/AUTO [id number] 00:00:00 Test Item Value Reference Range Interpretation [...] code = 1015) 108 K/UL CBC W/AUTO [id number] 00:00:00 Test Item Value Reference Range Interpretation [...] (test code = 1015) 108 K/UL HEMOGLOBIN [id number] 00:00:00 Test Item Value Reference Range Interpretation Comments HEMOGLOBIN A1c (test code = 99630) 6.1 % HEMOGLOBIN [id number] 00:00:00 Test Item Value Reference Range Interpretation Comments HEMOGLOBIN A1c (test code = 35496) 6.1 % HEMOGLOBIN [id number] 00:00:00 Test Item Value Reference Range Interpretation Comments HEMOGLOBIN A1c (test code = 60021) 6.1 % [id number] 00:00:00 Test Item Value Reference Range Interpretation Comments TSH (test code = 2821) 5.7 UIU/ML [id number] 00:00:00 Test Item Value Reference Range Interpretation Comments TSH (test code = 2821) 5.7 UIU/ML [id number] 00:00:00 Test Item Value Reference Range Interpretation Comments TSH (test code = 2821) 5.7 UIU/ML VITAMIN D, 25 [id number] 00:00:00 Test Item Value Reference Range Interpretation Comments VITAMIN D, 25 OH (test code = 4958) 7 NG/ML VITAMIN D, 25 [id number] 00:00:00 Test Item Value Reference Range Interpretation Comments VITAMIN D, 25 OH (test code = 4958) 7 NG/ML VITAMIN B 12 AND FOLIC [id number] 00:00:00 Test Item Value Reference Range Interpretation Comments VITAMIN B-12 (test code = 2840) 569 PG/ML FOLIC ACID (test code = 2695) 16.8 NG/ML VITAMIN B 12 AND FOLIC [id number] 00:00:00 Test Item Value Reference Range Interpretation Comments VITAMIN B-12 (test code = 2840) 569 PG/ML FOLIC ACID (test code = 2695) 16.8 NG/ML COMPREHENSIVE METABOLIC [id number] 00:00:00 Test Item Value Reference Range Interpretation Comments GLUCOSE (test code = 2217) 116 MG/DL BUN (test code = 2208) 14 MG/DL CREATININE (test code = 2214) 0.6 MG/DL eGFR AMER. (test code 125 ML/MIN/1.73 = 94730) eGFR NON- AMER. (test 103 ML/MIN/1.73 code = 50115) CALCULATED BUN/CREAT (test 23 RATIO code = 2235) SODIUM (test code = 2231) 137 MEQ/L POTASSIUM (test code = 2228) 3.3 MEQ/L CHLORIDE (test code = 2215) 100 MEQ/L CARBON DIOXIDE (test code = 20 MEQ/L 2206) CALCIUM (test code = 2209) 9.4 MG/DL [...] code = 2219) 39 U/L COMPREHENSIVE METABOLIC [id number] 00:00:00 Test Item Value Reference Range Interpretation Comments GLUCOSE (test code = 2217) 116 MG/DL BUN (test code = 2208) 14 MG/DL CREATININE (test code = 2214) 0.6 MG/DL eGFR AMER. (test code 125 ML/MIN/1.73 = 91153) eGFR NON- AMER. (test 103 ML/MIN/1.73 code = 78703) CALCULATED BUN/CREAT (test 23 RATIO code = 2235) SODIUM (test code = 2231) 137 MEQ/L POTASSIUM (test code = 2228) 3.3 MEQ/L CHLORIDE (test code = 2215) 100 MEQ/L CARBON DIOXIDE (test code = 20 MEQ/L 2206) CALCIUM (test code = 2209) 9.4 MG/DL [...] (test code = 2219) 39 U/L LIPID [id number] 00:00:00 Test Item Value Reference Range Interpretation Comments CHOLESTEROL (test code = 2210) 305 MG/DL TRIGLYCERIDES (test code = 2232) 99 MG/DL HDL CHOLESTEROL (test code = 2220) 87 MG/DL CALCULATED LDL CHOL (test code = 198 MG/DL 2237) RISK RATIO LDL/HDL (test code = 2.28 RATIO 2238) LIPID [id number] 00:00:00 Test Item Value Reference Range Interpretation Comments CHOLESTEROL (test code = 2210) 305 MG/DL TRIGLYCERIDES (test code = 2232) 99 MG/DL HDL CHOLESTEROL (test code = 2220) 87 MG/DL CALCULATED LDL CHOL (test code = 198 MG/DL 2237) RISK RATIO LDL/HDL (test code = 2.28 RATIO 2238) [id number] 00:00:00 Test Item Value Reference Range Interpretation Comments TSH (test code = 2821) 1.4 UIU/ML [id number] 00:00:00 Test Item Value Reference Range Interpretation Comments TSH (test code = 2821) 1.4 UIU/ML [id number] 00:00:00 Test Item Value Reference Range Interpretation Comments TSH (test code = 2821) 1.4 UIU/ML COMPREHENSIVE METABOLIC [id number] 00:00:00 Test Item Value Reference Range Interpretation Comments GLUCOSE (test code = 2217) 116 MG/DL BUN (test code = 2208) 14 MG/DL CREATININE (test code = 2214) 0.6 MG/DL eGFR AMER. (test code 125 ML/MIN/1.73 = 53710) eGFR NON- AMER. (test 103 ML/MIN/1.73 code = 55844) CALCULATED BUN/CREAT (test 23 RATIO code = [...] code = 2219) 39 U/L COMPREHENSIVE METABOLIC [id number] 00:00:00 Test Item Value Reference Range Interpretation Comments GLUCOSE (test code = 2217) 116 MG/DL BUN (test code = 2208) 14 MG/DL CREATININE (test code = 2214) 0.6 MG/DL eGFR AMER. (test code 125 ML/MIN/1.73 = 10376) eGFR NON- AMER. (test 103 ML/MIN/1.73 code = 25194) CALCULATED BUN/CREAT (test 23 RATIO code = [...] (test code = 2219) 39 U/L LIPID [id number] 00:00:00 Test Item Value Reference Range Interpretation Comments CHOLESTEROL (test code = 2210) 305 MG/DL TRIGLYCERIDES (test code = 2232) 99 MG/DL HDL CHOLESTEROL (test code = 2220) 87 MG/DL CALCULATED LDL CHOL (test code = 198 MG/DL 2236) RISK RATIO LDL/HDL (test code = 2.28 RATIO 2238) LIPID [id number] 00:00:00 Test Item Value Reference Range Interpretation Comments CHOLESTEROL (test code = 2210) 305 MG/DL TRIGLYCERIDES (test code = 2232) 99 MG/DL HDL CHOLESTEROL (test code = 2220) 87 MG/DL CALCULATED LDL CHOL (test code = 198 MG/DL 2237) RISK RATIO LDL/HDL (test code = 2.28 RATIO 2238) [id number] 00:00:00 Test Item Value Reference Range Interpretation Comments TSH (test code = 2821) 1.4 UIU/ML [id number] 00:00:00 Test Item Value Reference Range Interpretation Comments TSH (test code = 2821) 1.4 UIU/ML [id number] 00:00:00 Test Item Value Reference Range Interpretation Comments TSH (test code = 2821) 1.4 UIU/ML CBC W/AUTO [id number] 00:00:00 Test Item Value Reference Range Interpretation [...] code = 1015) 240 K/UL CBC W/AUTO [id number] 00:00:00 Test Item Value Reference Range Interpretation [...] code = 1015) 240 K/UL CBC W/AUTO [id number] 00:00:00 Test Item Value Reference Range Interpretation [...] (test code = 1015) 240 K/UL HEMOGLOBIN [id number] 00:00:00 Test Item Value Reference Range Interpretation Comments HEMOGLOBIN A1c (test code = 49663) 6.6 % HEMOGLOBIN [id number] 00:00:00 Test Item Value Reference Range Interpretation Comments HEMOGLOBIN A1c (test code = 67801) 6.6 % HEMOGLOBIN [id number] 00:00:00 Test Item Value Reference Range Interpretation Comments HEMOGLOBIN A1c (test code = 36519) 6.6 % CBC W/AUTO [id number] 00:00:00 Test Item Value Reference Range Interpretation [...] code = 1015) 240 K/UL CBC W/AUTO [id number] 00:00:00 Test Item Value Reference Range Interpretation [...] code = 1015) 240 K/UL CBC W/AUTO [id number] 00:00:00 Test Item Value Reference Range Interpretation [...] (test code = 1015) 240 K/UL HEMOGLOBIN [id number] 00:00:00 Test Item Value Reference Range Interpretation Comments HEMOGLOBIN A1c (test code = 14740) 6.6 % HEMOGLOBIN [id number] 00:00:00 Test Item Value Reference Range Interpretation Comments HEMOGLOBIN A1c (test code = 58511) 6.6 % HEMOGLOBIN [id number] 00:00:00 Test Item Value Reference Range Interpretation Comments HEMOGLOBIN A1c (test code = 52190) 6.6 % CHEM [id number] 08:47:00 Test Item Value Reference Range Interpretation Comments Lipase Lvl (test code = Lipase Lvl) 545 73-393 [facility]2015-05-01 08:47:00 Test Item Value Reference Range Interpretation Comments Lipase Lvl (test code = Lipase Lvl) 545 73-393 [facility]2015-04-30 10:18:00 Test Item Value Reference Range Interpretation Comments Lipase Lvl (test code = Lipase Lvl) 660 73-393 [id number] 10:18:00 Test Item Value Reference Range Interpretation Comments Sodium Lvl (test code = Sodium Lvl) 134 135-145 [id number] 10:18:00 Test Item Value Reference Range Interpretation Comments Potassium Lvl (test code = Potassium 3.5 3.5-5.1 Lvl) [facility] Ho[id number] 10:18:00 Test Item Value Reference Range Interpretation Comments Calcium Lvl (test code = Calcium Lvl) 7.8 8.5-10.5 [id number] 10:18:00 Test Item Value Reference Range Interpretation Comments Chloride Lvl (test code = Chloride Lvl) 98 95-109 [facility] Hospi[id number] 10:18:00 Test Item Value Reference Range Interpretation Comments eGFR (test code = eGFR) 72 [facility] HospitalOnddsamJNNCBOUHTCCW0076-10-18 10:18:00 Test Item Value Reference Range Interpretation Comments Globulin (test code = Globulin) 3.0 2.0-4.0 [facility]2015-04-30 10:18:00 Test Item Value Reference Range Interpretation Comments Lipase Lvl (test code = Lipase Lvl) 660 73-393 [facility] Hospital[id number] 10:18:00 Test Item Value Reference Range Interpretation Comments Sodium Lvl (test code = Sodium Lvl) 134 135-145 [facility] Hospital[id number] 10:18:00 Test Item Value Reference Range Interpretation Comments Potassium Lvl (test code = Potassium 3.5 3.5-5.1 Lvl) [facility] HospitalOlvvzthFSLSTVHKOFTT0882-89-05 10:18:00 Test Item Value Reference Range Interpretation Comments Calcium Lvl (test code = Calcium Lvl) 7.8 8.5-10.5 [facility] Hos[id number] 10:18:00 Test Item Value Reference Range Interpretation Comments Chloride Lvl (test code = Chloride Lvl) 98 95-109 [facility] HospitalXnluswcLOYQPBGMIURX1056-45-36 10:18:00 Test Item Value Reference Range Interpretation Comments eGFR (test code = eGFR) 72 [facility] HospitalLmukdsbWCRHKFPTQZQA0827-49-63 10:18:00 Test Item Value Reference Range Interpretation Comments Globulin (test code = Globulin) 3.0 2.0-4.0 [facility] HospitalSjrkuhrTVDYPZGSLYCI4925-72-96 10:18:00 Test Item Value Reference Range Interpretation Comments A/G Ratio (test code = A/G Ratio) 1.0 0.7-1.6 [facility] HospitalMfkzrpfJEFUTCTEYUNI8068-18-57 10:18:00 Test Item Value Reference Range Interpretation Comments AST (test code = AST) 45 See_Comment [Auto mated message] The system which ge nerated this result transmit cristo reference range : <=37. The reference range was not used to interpr et this result as jose l/abnormal. [facility] HospitalVvqwscuMADUHZEVOAUU2267-25-02 10:18:00 Test Item Value Reference Range Interpretation Comments ALT (test code = ALT) 57 See_Comment [Auto mated message] The system which ge nerated this result transmit cristo reference range : <=65. The reference range was not used to interpr et this result as jose l/abnormal. [facility] HospitalBbjjbdvBOLVWXHROBJU4731-14-61 10:18:00 Test Item Value Reference Range Interpretation Comments Alk Phos (test code = Alk Phos) 49 39-136 [facility] HospitalMhwctpvSIIINVFKCGFZ9044-80-14 10:18:00 Test Item Value Reference Range Interpretation Comments Bili Total (test code = Bili Total) 0.7 0.2-1.3 [facility] HospitalTartmsyNVEXJNNFJNPF1320-58-34 10:18:00 Test Item Value Reference Range Interpretation Comments Glucose Lvl (test code = Glucose Lvl) 145 70-99 [facility] HospitalNprtczgUSGTFEEUOTSW1407-01-20 10:18:00 Test Item Value Reference Range Interpretation Comments A/G Ratio (test code = A/G Ratio) 1.0 0.7-1.6 [facility] Hospital[id number] 10:18:00 Test Item Value Reference Range Interpretation Comments Creatinine Lvl (test code = Creatinine 0.9 0.5-1.4 Lvl) [facility] HospitalLargktlJOFZXIIQJJPB9954-59-62 10:18:00 Test Item Value Reference Range Interpretation Comments BUN (test code = BUN) 12 - [facility] HospitalKladctjFTIWRGKDLGFU3822-88-46 10:18:00 Test Item Value Reference Range Interpretation Comments B/C Ratio (test code = B/C Ratio) 13 [facility]QxgtnpxBIDIFZQGZPUY8630-76-37 10:18:00 Test Item Value Reference Range Interpretation Comments CO2 (test code = CO2) [facility]KzxkjmfOFUDZVJCHZXH2998-58-19 10:18:00 Test Item Value Reference Range Interpretation Comments Total Protein (test code = Total 6.1 6.4-8.4 Protein) [facility] HospitalIixvrrhFQHFAQQZGVZB5974-87-79 10:18:00 Test Item Value Reference Range Interpretation Comments AGAP (test code = AGAP) 9.5 10.0-20.0 [facility] HospitalPgyysqjVJNIJZDNPWNB9842-71-13 10:18:00 Test Item Value Reference Range Interpretation Comments Albumin Lvl (test code = Albumin Lvl) 3.1 3.5-5.0 [facility]DfqprohZLACGUFLSO5100-47-81 10:18:00 Test Item Value Reference Range Interpretation Comments Eosinophils # (test code 0.2 See_Comment [A utomated message] The = Eosinophils #) system [facility] generated this result tra nsmitted reference range : <=0.5. The reference r genesis was not used to int erpret this result as normal/abnormal . [facility] CenterWqmlucgYJEGLKHEXR8169-62-85 10:18:00 Test Item Value Reference Range Interpretation Comments Macrocyte (test code = 2+ *ABN*(10/31/14 Macrocyte) 5:18 AM) [facility] CenterHcpykwkVAXSOKXKRU7422-66-47 10:18:00 Test Item Value Reference Range Interpretation Comments Monocytes # (test code 0.5 See_Comment [Aut omated message] The = Monocytes #) system which generated this result tra nsmitted reference range : <=0.8. The reference r genesis was not used to int erpret this result as normal/abnormal . [facility] CenterZzvnuopVFHYLLPEJE3897-27-75 10:18:00 Test Item Value Reference Range Interpretation Comments Eosinophils (test code = 2.3 See_Comment [A utomated message] The Eosinophils) system which ge nerated this result tra nsmitted reference range : <=4.0. The reference r genesis was not used to int erpret this result as normal/abnormal . [facility] CenterVwbtqeuVAKOBCYNIW0657-23-42 10:18:00 Test Item Value Reference Range Interpretation Comments Lymphocytes # (test code = Lymphocytes 1.2 1.0-5.5 #) [facility] CenterAjaenauTKWZWVFBOX0147-99-70 10:18:00 Test Item Value Reference Range Interpretation Comments Basophils (test code = 0.3 See_Comment [Aut omated message] The Basophils) system which ge nerated this result tra nsmitted reference range : <=1.0. The reference r genesis was not used to int erpret this result as normal/abnormal . [facility] CenterDottevzKKVPCEYNEL1487-53-20 10:18:00 Test Item Value Reference Range Interpretation Comments Segs-Bands # (test code = Segs-Bands #) 6.1 1.5-8.1 [facility] CenterCphunltBTDTRUYCHO6604-30-43 10:18:00 Test Item Value Reference Range Interpretation Comments Monocytes (test code = Monocytes) 6.1 2.0-12.0 [facility] CenterPcdpjfxOFMBXVPWDJ8850-79-48 10:18:00 Test Item Value Reference Range Interpretation Comments Lymphocytes (test code = Lymphocytes) 15.1 20.0-40.0 [facility] CenterVnhvalwQZJUESOOEC2523-67-55 10:18:00 Test Item Value Reference Range Interpretation Comments Segs (test code = Segs) 76.2 45.0-75.0 [facility]DvvqnsrSYSBCZOADCLA1260-34-15 10:18:00 Test Item Value Reference Range Interpretation Comments AST (test code = AST) 45 See_Comment [Auto mated message] The system which ge nerated this result transmit cristo reference range : <=37. The reference range was not used to interpr et this result as jose l/abnormal. [facility] CenterTljaevnJMMASHIVOP5809-76-46 10:18:00 Test Item Value Reference Range Interpretation Comments MCHC (test code = MCHC) 33.9 32.0-36.0 [facility] CenterMsnmohtKJJTTYCSTK2217-44-07 10:18:00 Test Item Value Reference Range Interpretation Comments MCV (test code = MCV) 104.7 80.0-98.0 [facility] CenterGkzleafJJWIKULUEN6135-67-75 10:18:00 Test Item Value Reference Range Interpretation Comments Hct (test code = Hct) 35.5 36.0-48.0 [facility] CenterFojjjshUCRYTKBUCW4186-30-93 10:18:00 Test Item Value Reference Range Interpretation Comments Hgb (test code = Hgb) 12.0 12.0-16.0 [facility] CenterHiingdmNDHCJZPFTX6214-84-57 10:18:00 Test Item Value Reference Range Interpretation Comments WBC (test code = WBC) 8.0 3.7-10.4 [facility] CenterGgmsyoaXXITBFASSZ1064-64-14 10:18:00 Test Item Value Reference Range Interpretation Comments RBC (test code = RBC) 3.39 4.20-5.40 [facility] HospitalFictterLJHMSGVNJVEG2217-98-46 10:18:00 Test Item Value Reference Range Interpretation Comments ALT (test code = ALT) 57 See_Comment [Auto mated message] The system which ge nerated this result transmit cristo reference range : <=65. The reference range was not used to interpr et this result as jose l/abnormal. [facility] CenterAgcuodzPAUPHISCOW8719-08-81 10:18:00 Test Item Value Reference Range Interpretation Comments Platelet (test code = Platelet) 128 133-450 [facility] CenterUlxkevjVPYBXEAJHS3101-29-48 10:18:00 Test Item Value Reference Range Interpretation Comments MPV (test code = MPV) 9.5 7.4-10.4 [facility] CenterOmupouuGGYELUCWAM3249-75-87 10:18:00 Test Item Value Reference Range Interpretation Comments RDW (test code = RDW) 12.7 11.5-14.5 [facility] CenterEurtqbiMFAASGCKUH4617-94-94 10:18:00 Test Item Value Reference Range Interpretation Comments MCH (test code = MCH) 35.5 pg 27.0-31.0 [facility]HegyhuhKMNNAB6120-51-47 10:18:00 Test Item Value Reference Range Interpretation Comments HDL (test code = HDL) 77 [facility]QldbrnhFKGDVFZBMDNM1804-74-61 10:18:00 Test Item Value Reference Range Interpretation Comments Alk Phos (test code = Alk Phos) 49 39-136 [facility] CenterGdgkrbhYORBFB7002-02-57 10:18:00 Test Item Value Reference Range Interpretation Comments Chol (test code = Chol) 172 [facility] CenterHiwrwoeBGVXRG3419-77-51 10:18:00 Test Item Value Reference Range Interpretation Comments Trig (test code = Trig) 67 [facility] CenterRznmlsdIGMJEP5371-66-32 10:18:00 Test Item Value Reference Range Interpretation Comments LDL (Calculated) (test code = LDL 82 (Calculated)) [facility] CenterIymkwacIBUFRF7935-29-95 10:18:00 Test Item Value Reference Range Interpretation Comments CHD Risk (test code = CHD Risk) 2.23 3.90-5.80 [facility] CenterQtafgbdEOFSPR6709-10-67 10:18:00 Test Item Value Reference Range Interpretation Comments VLDL (test code = VLDL) 13 [facility] HospitalMucxvreSUXZFXASRPMZ5867-14-76 10:18:00 Test Item Value Reference Range Interpretation Comments Bili Total (test code = Bili Total) 0.7 0.2-1.3 [facility] HospitalIojyvxqKYXBUKMXWQQN8771-57-73 10:18:00 Test Item Value Reference Range Interpretation Comments Glucose Lvl (test code = Glucose Lvl) 145 70-99 [facility] HospitalWxkmsyjSIDEKCYANEGR8616-93-00 10:18:00 Test Item Value Reference Range Interpretation Comments Creatinine Lvl (test code = Creatinine 0.9 0.5-1.4 Lvl) [facility] HospitalXujepjtMVEYVWXNKCFF5274-30-27 10:18:00 Test Item Value Reference Range Interpretation Comments BUN (test code = BUN) 12 7-22 [facility] HospitalUxwroxlCQVXYYZZKAQO9783-14-22 10:18:00 Test Item Value Reference Range Interpretation Comments B/C Ratio (test code = B/C Ratio) 13 6-25 [facility] HospitalYqkunfmNBROYXGRNBAN7448-35-51 10:18:00 Test Item Value Reference Range Interpretation Comments CO2 (test code = CO2) 30 24-32 [facility] HospitalPajnhkdDCLVAEPGJVKX5397-11-35 10:18:00 Test Item Value Reference Range Interpretation Comments Total Protein (test code = Total 6.1 6.4-8.4 Protein) [facility] HospitalHzwevqpLHNXLRGCOXAS4775-48-13 10:18:00 Test Item Value Reference Range Interpretation Comments AGAP (test code = AGAP) 9.5 10.0-20.0 [facility]KijbjrlNMMGUKGZDXWM3523-37-76 10:18:00 Test Item Value Reference Range Interpretation Comments Albumin Lvl (test code = Albumin Lvl) 3.1 3.5-5.0 [facility] CenterXquxpnuNZLUONZWXK1619-92-94 10:18:00 Test Item Value Reference Range Interpretation Comments Eosinophils # (test code 0.2 See_Comment [A utomated message] The = Eosinophils #) system whic h generated this result tra nsmitted reference range : <=0.5. The reference r genesis was not used to int erpret this result as normal/abnormal . [facility] CenterRtwducpNCCVKXETED8105-81-21 10:18:00 Test Item Value Reference Range Interpretation Comments Macrocyte (test code = 2+ *ABN*(10/31/14 Macrocyte) 5:18 AM) [facility] CenterIuegzmpWPXIJOMCAA1862-90-05 10:18:00 Test Item Value Reference Range Interpretation Comments Monocytes # (test code 0.5 See_Comment [Aut omated message] The = Monocytes #) system which generated this result tra nsmitted reference range : <=0.8. The reference r genesis was not used to int erpret this result as normal/abnormal . [facility] CenterIllufzmSANVTPZTWY5149-60-14 10:18:00 Test Item Value Reference Range Interpretation Comments Eosinophils (test code = 2.3 See_Comment [A utomated message] The Eosinophils) system which ge nerated this result tra nsmitted reference range : <=4.0. The reference r genesis was not used to int erpret this result as normal/abnormal . [facility] CenterAmkhuwaYABERKEMVA4917-37-40 10:18:00 Test Item Value Reference Range Interpretation Comments Lymphocytes # (test code = Lymphocytes 1.2 1.0-5.5 #) [facility] CenterViuggjeACQFMWAMTX6374-93-97 10:18:00 Test Item Value Reference Range Interpretation Comments Basophils (test code = 0.3 See_Comment [Aut omated message] The Basophils) system which ge nerated this result tra nsmitted reference range : <=1.0. The reference r genesis was not used to int erpret this result as normal/abnormal . [facility] CenterXcikvwgKMUVDIWEHD7626-05-50 10:18:00 Test Item Value Reference Range Interpretation Comments Segs-Bands # (test code = Segs-Bands #) 6.1 1.5-8.1 [facility] CenterXmoyyxwIPDLAVXLRK0423-23-81 10:18:00 Test Item Value Reference Range Interpretation Comments Monocytes (test code = Monocytes) 6.1 2.0-12.0 [facility] CenterMqxcijeDEKWMUKXWS8783-61-78 10:18:00 Test Item Value Reference Range Interpretation Comments Lymphocytes (test code = Lymphocytes) 15.1 20.0-40.0 [facility] CenterOpdskmzBFDZBFCNRI9248-60-29 10:18:00 Test Item Value Reference Range Interpretation Comments Segs (test code = Segs) 76.2 45.0-75.0 [facility] CenterJsqcndrZJTZKOPTKC8435-11-49 10:18:00 Test Item Value Reference Range Interpretation Comments MCHC (test code = MCHC) 33.9 32.0-36.0 [facility] CenterGftzygqOHANUIKUSG2157-12-04 10:18:00 Test Item Value Reference Range Interpretation Comments MCV (test code = MCV) 104.7 80.0-98.0 [facility] CenterBmiawkoWJXYFJMYDH4476-71-51 10:18:00 Test Item Value Reference Range Interpretation Comments Hct (test code = Hct) 35.5 36.0-48.0 [facility] CenterWjrsxszDMGWSHRWWP1425-17-39 10:18:00 Test Item Value Reference Range Interpretation Comments Hgb (test code = Hgb) 12.0 12.0-16.0 [facility] CenterWchhphnSQTSHZSZAJ6432-24-00 10:18:00 Test Item Value Reference Range Interpretation Comments WBC (test code = WBC) 8.0 3.7-10.4 [facility] CenterUeqcasrRBJSWURPZZ1277-53-16 10:18:00 Test Item Value Reference Range Interpretation Comments RBC (test code = RBC) 3.39 4.20-5.40 [facility] CenterPtznshjOBGKZOBDDT9049-22-21 10:18:00 Test Item Value Reference Range Interpretation Comments Platelet (test code = Platelet) 128 133-450 [facility] CenterDsyopmvNNHDMWSAQY0067-53-48 10:18:00 Test Item Value Reference Range Interpretation Comments MPV (test code = MPV) 9.5 7.4-10.4 [facility] CenterMecoxnsFGXGYNJVDG1627-86-04 10:18:00 Test Item Value Reference Range Interpretation Comments RDW (test code = RDW) 12.7 11.5-14.5 [facility]KhkbidsDDMLODJNUU1413-07-47 10:18:00 Test Item Value Reference Range Interpretation Comments MCH (test code = MCH) 35.5 pg 27.0-31.0 [facility] HospitalLfvxsbcGCIXLK3832-46-22 10:18:00 Test Item Value Reference Range Interpretation Comments HDL (test code = HDL) 77 [facility] HospitalFiuuzehRXTYYO9911-19-59 10:18:00 Test Item Value Reference Range Interpretation Comments Chol (test code = Chol) 172 [facility] HospitalRojlvfgBQBMDB7232-38-98 10:18:00 Test Item Value Reference Range Interpretation Comments Trig (test code = Trig) 67 [facility] HospitalWdeiaybSZZGCC5695-10-39 10:18:00 Test Item Value Reference Range Interpretation Comments LDL (Calculated) (test code = LDL 82 (Calculated)) [facility] HospitalZythqnkQBMIRZ9574-87-08 10:18:00 Test Item Value Reference Range Interpretation Comments CHD Risk (test code = CHD Risk) 2.23 3.90-5.80 [facility] HospitalGdgxcziXCXPCU1718-07-77 10:18:00 Test Item Value Reference Range Interpretation Comments VLDL (test code = VLDL) 13 [facility]2015-04-29 12:48:00 Test Item Value Reference Range Interpretation Comments Bili Total (test code = Bili Total) 1.0 0.2-1.3 [facility]2015-04-29 12:48:00 Test Item Value Reference Range Interpretation Comments Albumin Lvl (test code = Albumin Lvl) 3.6 3.5-5.0 [facility]2015-04-29 12:48:00 Test Item Value Reference Range Interpretation Comments CO2 (test code = CO2) 33 24-32 [facility]2015-04-29 12:48:00 Test Item Value Reference Range Interpretation Comments Total Protein (test code = Total 6.4 6.4-8.4 Protein) [facility]2015-04-29 12:48:00 Test Item Value Reference Range Interpretation Comments ALT (test code = ALT) 84 See_Comment [Auto mated message] The system which ge nerated this result transmit cristo reference range : <=65. The reference range was not used to interpr et this result as jose l/abnormal. [facility]2015-04-29 12:48:00 Test Item Value Reference Range Interpretation Comments AST (test code = AST) 92 See_Comment [Auto mated message] The system which ge nerated this result transmit cristo reference range : <=37. The reference range was not used to interpr et this result as jose l/abnormal. [facility]2015-04-29 12:48:00 Test Item Value Reference Range Interpretation Comments Glucose Lvl (test code = Glucose Lvl) 105 70-99 [facility]2015-04-29 12:48:00 Test Item Value Reference Range Interpretation Comments BUN (test code = BUN) 30 7-22 [facility]2015-04-29 12:48:00 Test Item Value Reference Range Interpretation Comments eGFR (test code = eGFR) 46 [facility]2015-04-29 12:48:00 Test Item Value Reference Range Interpretation Comments Potassium Lvl (test code = Potassium 3.1 3.5-5.1 Lvl) [facility]2015-04-29 12:48:00 Test Item Value Reference Range Interpretation Comments Calcium Lvl (test code = Calcium Lvl) 8.3 8.5-10.5 [facility]2015-04-29 12:48:00 Test Item Value Reference Range Interpretation Comments Chloride Lvl (test code = Chloride Lvl) 96 95-109 [facility]2015-04-29 12:48:00 Test Item Value Reference Range Interpretation Comments Sodium Lvl (test code = Sodium Lvl) 136 135-145 [facility]2015-04-29 12:48:00 Test Item Value Reference Range Interpretation Comments Creatinine Lvl (test code = Creatinine 1.3 0.5-1.4 Lvl) [facility]2015-04-29 12:48:00 Test Item Value Reference Range Interpretation Comments Globulin (test code = Globulin) 2.8 2.0-4.0 [facility]2015-04-29 12:48:00 Test Item Value Reference Range Interpretation Comments A/G Ratio (test code = A/G Ratio) 1.3 0.7-1.6 [facility]2015-04-29 12:48:00 Test Item Value Reference Range Interpretation Comments B/C Ratio (test code = B/C Ratio) 23 6-25 [facility]2015-04-29 12:48:00 Test Item Value Reference Range Interpretation Comments AGAP (test code = AGAP) 10.1 10.0-20.0 [facility] CenterRinowiuVLDEPJQGWT1763-03-47 12:48:00 Test Item Value Reference Range Interpretation Comments Macrocyte (test code = 1+ *ABN*(10/30/14 Macrocyte) 7:48 AM) [facility] CenterDzlqgpcJXTDOYMMPK3459-71-49 12:48:00 Test Item Value Reference Range Interpretation Comments Segs-Bands # (test code = Segs-Bands #) 5.5 1.5-8.1 [facility] CenterNykyzdqSZFDPGISVH4278-71-10 12:48:00 Test Item Value Reference Range Interpretation Comments Basophils (test code = 0.7 See_Comment [Aut omated message] The Basophils) system which ge nerated this result tra nsmitted reference range : <=1.0. The reference r genesis was not used to int erpret this result as normal/abnormal . [facility] CenterSluwdcdBASWGJDKSH6834-26-83 12:48:00 Test Item Value Reference Range Interpretation Comments Eosinophils (test code = 1.4 See_Comment [A utomated message] The Eosinophils) system which ge nerated this result tra nsmitted reference range : <=4.0. The reference r genesis was not used to int erpret this result as normal/abnormal . [facility] CenterXmoroolPBWYMJODSJ1007-16-56 12:48:00 Test Item Value Reference Range Interpretation Comments Basophils # (test code 0.1 See_Comment [Aut omated message] The = Basophils #) system which generated this result tra nsmitted reference range : <=0.2. The reference r genesis was not used to int erpret this result as normal/abnormal . [facility] CenterBckgmyrZHWYXKFPJC7432-28-61 12:48:00 Test Item Value Reference Range Interpretation Comments Eosinophils # (test code 0.1 See_Comment [A utomated message] The = Eosinophils #) system whic h generated this result tra nsmitted reference range : <=0.5. The reference r genesis was not used to int erpret this result as normal/abnormal . [facility] CenterCdkjlfdRCKTSUUJTG1475-37-99 12:48:00 Test Item Value Reference Range Interpretation Comments Lymphocytes # (test code = Lymphocytes 1.6 1.0-5.5 #) [facility] CenterPvfupupVPVUONVXHH6115-62-69 12:48:00 Test Item Value Reference Range Interpretation Comments Monocytes # (test code 0.5 See_Comment [Aut omated message] The = Monocytes #) system which generated this result tra nsmitted reference range : <=0.8. The reference r genesis was not used to int erpret this result as normal/abnormal . [facility] CenterVvydxobCSAAQFHHAO1657-90-82 12:48:00 Test Item Value Reference Range Interpretation Comments Monocytes (test code = Monocytes) 6.7 2.0-12.0 [facility] CenterQbfblppKEVTJASNPZ7740-30-13 12:48:00 Test Item Value Reference Range Interpretation Comments Lymphocytes (test code = Lymphocytes) 20.3 20.0-40.0 [facility] CenterOoxgvgmDTIHUYKHVB4624-46-35 12:48:00 Test Item Value Reference Range Interpretation Comments Segs (test code = Segs) 70.9 45.0-75.0 [facility] CenterBrnpsydBEOXFHZYKK2604-27-14 12:48:00 Test Item Value Reference Range Interpretation Comments RDW (test code = RDW) 12.9 11.5-14.5 [facility] CenterUygyyeyIMSHAUXBEX7588-36-07 12:48:00 Test Item Value Reference Range Interpretation Comments Hgb (test code = Hgb) 12.8 12.0-16.0 [facility] CenterWvlezjhVLZNTVYYVR3034-37-15 12:48:00 Test Item Value Reference Range Interpretation Comments RBC (test code = RBC) 3.56 4.20-5.40 [facility] CenterLzlabxjZSZSOCCCNV7909-96-00 12:48:00 Test Item Value Reference Range Interpretation Comments MPV (test code = MPV) 8.3 7.4-10.4 [facility] CenterZqflvutRMWTXMNOIX2605-06-48 12:48:00 Test Item Value Reference Range Interpretation Comments Platelet (test code = Platelet) 163 133-450 [facility] CenterHxlbotsKNCSIMTVBO8478-44-82 12:48:00 Test Item Value Reference Range Interpretation Comments MCV (test code = MCV) 103.3 80.0-98.0 [facility] CenterTwinfztLOALZJGVZD9792-12-82 12:48:00 Test Item Value Reference Range Interpretation Comments Hct (test code = Hct) 36.8 36.0-48.0 [facility] CenterOrzvwoeGFYNZMNBEA0551-61-55 12:48:00 Test Item Value Reference Range Interpretation Comments MCHC (test code = MCHC) 34.9 32.0-36.0 [facility] CenterTszihxoKEEOCENVKL8541-03-67 12:48:00 Test Item Value Reference Range Interpretation Comments MCH (test code = MCH) 36.1 pg 27.0-31.0 [facility] CenterShwyjvbINQXIHLTWG8703-08-74 12:48:00 Test Item Value Reference Range Interpretation Comments WBC (test code = WBC) 7.8 3.7-10.4 [facility] CenterTtwjpmqOUELVNFZBW3203-21-40 12:48:00 Test Item Value Reference Range Interpretation Comments Monocytes (test code = Monocytes) 6.7 2.0-12.0 [facility] CenterVntxnmeGIDSHZZHXX1102-77-22 12:48:00 Test Item Value Reference Range Interpretation Comments Lymphocytes (test code = Lymphocytes) 20.3 20.0-40.0 [facility] CenterZnmpqdaFFLUMJQYIA5732-55-44 12:48:00 Test Item Value Reference Range Interpretation Comments Segs (test code = Segs) 70.9 45.0-75.0 [facility] CenterXgcphmpGAUHZDOWRF1312-69-48 12:48:00 Test Item Value Reference Range Interpretation Comments RDW (test code = RDW) 12.9 11.5-14.5 [facility] CenterSzwszveNWDMBFRISP5513-12-95 12:48:00 Test Item Value Reference Range Interpretation Comments Hgb (test code = Hgb) 12.8 12.0-16.0 [facility] CenterQvzujcdEZIHAMIVJK3870-08-62 12:48:00 Test Item Value Reference Range Interpretation Comments RBC (test code = RBC) 3.56 4.20-5.40 [facility] CenterNcdgvdpIXVFHZAWTB1563-17-91 12:48:00 Test Item Value Reference Range Interpretation Comments MPV (test code = MPV) 8.3 7.4-10.4 [facility] CenterQuzgitfZSOHEUGSLS7036-62-61 12:48:00 Test Item Value Reference Range Interpretation Comments Platelet (test code = Platelet) 163 133-450 [facility] CenterNvulayyVWFUHNOWGP0912-66-50 12:48:00 Test Item Value Reference Range Interpretation Comments MCV (test code = MCV) 103.3 80.0-98.0 [facility] CenterFqlrvuuPJMEJFDZYV6797-14-57 12:48:00 Test Item Value Reference Range Interpretation Comments Hct (test code = Hct) 36.8 36.0-48.0 [facility] CenterOtjteiyLHNSWTZJTO5296-05-92 12:48:00 Test Item Value Reference Range Interpretation Comments MCHC (test code = MCHC) 34.9 32.0-36.0 [facility] CenterEhxmtboWZHTSHWNXO4368-53-93 12:48:00 Test Item Value Reference Range Interpretation Comments MCH (test code = MCH) 36.1 pg 27.0-31.0 [facility] CenterBvafwpmFOSTJZVNYE8853-32-33 12:48:00 Test Item Value Reference Range Interpretation Comments WBC (test code = WBC) 7.8 3.7-10.4 [facility]2015-04-29 12:48:00 Test Item Value Reference Range Interpretation Comments Lipase Lvl (test code = Lipase Lvl) 1352 73-393 [facility]2015-04-29 12:48:00 Test Item Value Reference Range Interpretation Comments Alk Phos (test code = Alk Phos) 50 39-136 [facility]2015-04-29 12:48:00 Test Item Value Reference Range Interpretation Comments Bili Total (test code = Bili Total) 1.0 0.2-1.3 [facility]2015-04-29 12:48:00 Test Item Value Reference Range Interpretation Comments Albumin Lvl (test code = Albumin Lvl) 3.6 3.5-5.0 [facility]2015-04-29 12:48:00 Test Item Value Reference Range Interpretation Comments CO2 (test code = CO2) 33 24-32 [facility]2015-04-29 12:48:00 Test Item Value Reference Range Interpretation Comments Total Protein (test code = Total 6.4 6.4-8.4 Protein) [facility]2015-04-29 12:48:00 Test Item Value Reference Range Interpretation Comments ALT (test code = ALT) 84 See_Comment [Auto mated message] The system which ge nerated this result transmit cristo reference range : <=65. The reference range was not used to interpr et this result as jose l/abnormal. [facility]2015-04-29 12:48:00 Test Item Value Reference Range Interpretation Comments AST (test code = AST) 92 See_Comment [Auto mated message] The system which ge nerated this result transmit cristo reference range : <=37. The reference range was not used to interpr et this result as jose l/abnormal. [facility]2015-04-29 12:48:00 Test Item Value Reference Range Interpretation Comments Glucose Lvl (test code = Glucose Lvl) 105 70-99 [facility]2015-04-29 12:48:00 Test Item Value Reference Range Interpretation Comments BUN (test code = BUN) 30 7-22 [facility]2015-04-29 12:48:00 Test Item Value Reference Range Interpretation Comments eGFR (test code = eGFR) 46 [facility]2015-04-29 12:48:00 Test Item Value Reference Range Interpretation Comments Potassium Lvl (test code = Potassium 3.1 3.5-5.1 Lvl) [facility]2015-04-29 12:48:00 Test Item Value Reference Range Interpretation Comments Calcium Lvl (test code = Calcium Lvl) 8.3 8.5-10.5 [facility]2015-04-29 12:48:00 Test Item Value Reference Range Interpretation Comments Chloride Lvl (test code = Chloride Lvl) 96 95-109 [facility]2015-04-29 12:48:00 Test Item Value Reference Range Interpretation Comments Sodium Lvl (test code = Sodium Lvl) 136 135-145 [facility]2015-04-29 12:48:00 Test Item Value Reference Range Interpretation Comments Creatinine Lvl (test code = Creatinine 1.3 0.5-1.4 Lvl) [facility]2015-04-29 12:48:00 Test Item Value Reference Range Interpretation Comments Globulin (test code = Globulin) 2.8 2.0-4.0 [facility]2015-04-29 12:48:00 Test Item Value Reference Range Interpretation Comments A/G Ratio (test code = A/G Ratio) 1.3 0.7-1.6 [facility]2015-04-29 12:48:00 Test Item Value Reference Range Interpretation Comments B/C Ratio (test code = B/C Ratio) 23 6-25 [facility]2015-04-29 12:48:00 Test Item Value Reference Range Interpretation Comments AGAP (test code = AGAP) 10.1 10.0-20.0 [id number] 12:48:00 Test Item Value Reference Range Interpretation Comments Macrocyte (test code = 1+ *ABN*(10/30/14 Macrocyte) 7:48 AM) [id number] 12:48:00 Test Item Value Reference Range Interpretation Comments Segs-Bands # (test code = Segs-Bands #) 5.5 1.5-8.1 [facility] [id number] 12:48:00 Test Item Value Reference Range Interpretation Comments Basophils (test code = 0.7 See_Comment [Aut omated message] The Basophils) system which ge nerated this result tra nsmitted reference range : <=1.0. The reference r genesis was not used to int erpret this result as normal/abnormal . [facility] [id number] 12:48:00 Test Item Value Reference Range Interpretation Comments Eosinophils (test code = 1.4 See_Comment [A utomated message] The Eosinophils) system which ge nerated this result tra nsmitted reference range : <=4.0. The reference r genesis was not used to int erpret this result as normal/abnormal . [facility] [id number] 12:48:00 Test Item Value Reference Range Interpretation Comments Basophils # (test code 0.1 See_Comment [Aut omated message] The = Basophils #) system which generated this result tra nsmitted reference range : <=0.2. The reference r genesis was not used to int erpret this result as normal/abnormal . [facility] [id number] 12:48:00 Test Item Value Reference Range Interpretation Comments Eosinophils # (test code 0.1 See_Comment [A utomated message] The = Eosinophils #) system whic h generated this result tra nsmitted reference range : <=0.5. The reference r genesis was not used to int erpret this result as normal/abnormal . [facility] [id number] 12:48:00 Test Item Value Reference Range Interpretation Comments Lymphocytes # (test code = Lymphocytes 1.6 1.0-5.5 #) [facility] [id number] 12:48:00 Test Item Value Reference Range Interpretation Comments Monocytes # (test code 0.5 See_Comment [Aut omated message] The = Monocytes #) system which generated this result tra nsmitted reference range : <=0.8. The reference r genesis was not used to int erpret this result as normal/abnormal . [facility] [id number] 12:48:00 Test Item Value Reference Range Interpretation Comments Lipase Lvl (test code = Lipase Lvl) 5763 [id number] [facility] [id number] 12:48:00 Test Item Value Reference Range Interpretation Comments Alk Phos (test code = Alk Phos) 50 39-136 [facility]
[2022-05-29 09:22] LABS: Absolute Lymphocytes (CBC) 2.3 K/uL (0.7-4.9); Hematocrit 42.1 % (36.0-45.0); Lymphocytes % 30.1 % (15.3-44.8); MCV 102.8 fL (80-100); MPV 7.4 fL (7.6-11.3)
--- NOTE | 2022-05-29 09:26 | RAD REPORT ---
EXAM DESCRIPTION: CT - Ct Stroke Brain Wo Cont - 05/29/2022 9:12 am CLINICAL HISTORY: Neuro deficit, acute, stroke suspected COMPARISON: <Comparisons> TECHNIQUE: All CT scans are performed using dose optimization technique as appropriate and may inclu de automated exposure control or mA/KV adjustment according to patient size. FINDINGS: No intracranial hemorrhage, hydrocephalus or extra-axial fluid collection.No areas of brai n edema or evidence of midline shift. Moderate chronic small vessel ischemic changes. The paranasal sinuses and mastoids are clear. The calvarium is intact. IMPRESSION: No acute intracranial abnormality. Discussed with Casey Kolb by Dr. Matta at 0915 on 05/29/22
[2022-05-29 09:27] LABS: Protime INR 0.99
--- NOTE | 2022-05-29 09:43 | ER ---
Nurse's Notes [facility] Name: Billie Botello Age: 61 yrs Sex: Female : 1960 Arrival Date: 05/29/2022 Time: 09:07 Bed 5 Private MD: Diagnosis: ischemic stroke;Nausea Presentation: 05/29 09:15 Chief complaint: Patient states: 0815 last seen normal. Co-workers noticed her seeming ll1 confused. Aphasia and abnormal gait. Facial droop started en route. + TINEO and nausea. Coronavirus screen: Vaccine status: Patient reports receiving the 2nd dose of the covid vaccine. Client denies travel out of the [place] in the last 14 days. At this time, the client does not indicate any symptoms associated with coronavirus-19. Ebola Screen: Patient denies travel to an Ebola-affected area in the 21 days before illness onset. Initial Sepsis Screen: Does the patient meet any 2 criteria? No. Patient's initial sepsis screen is negative. Does the patient have a suspected source of infection? No. Patient's initial sepsis screen is negative. Risk Assessment: Do you want to hurt yourself or someone else? Patient reports no desire to harm self or others. Onset of symptoms was May 29, 2022 at 08:15. 09:15 Method Of Arrival: EMS: [facility] 09:15 Acuity: NIKA 1 ll1 Triage Assessment: 09:15 General: Appears distressed, Behavior is calm, cooperative, appropriate for age. Pain: ll1 Complains of pain in head Quality of pain is described as aching. Neuro: Reports headache unsteady gait. Cardiovascular: No deficits noted. Respiratory: No deficits noted. Musculoskeletal: Circulation, motion, and sensation intact. Capillary refill < 3 seconds. Historical: - Allergies: 09:08 Bactrim; ll1 09:08 Sulfa (Sulfonamide Antibiotics); ll1 09:08 Trazodone; ll1 09:08 TRIMETHOPRIM; ll1 - PMHx: 09:08 Diabetes - NIDDM; etoh abuse; High Cholesterol; Hypertension; Pancreatitis; ll1 09:14 STROKE; ll1 - PSHx: 09:08 Appendectomy; section; left foot; right wrist; Tonsillectomy; ll1 - Immunization history:: Client reports receiving the 2nd dose of the Covid vaccine. - Social history:: Smoking status: Patient denies any tobacco usage or history of. Screenin:27 Abuse screen: Denies threats or abuse. Nutritional screening: No deficits noted. ll1 Tuberculosis screening: No symptoms or risk factors identified. Fall Risk Fall in past 12 months (25 points). IV access (20 points). Gait- Impaired (20 pts.). Total Arias Fall Scale indicates High Risk Score (45 or more points). Fall prevention measures have been instituted. Side Rails Up X 2 Placed Close to Nursing Station Frequent Obs/Assessments Occuring As available patient and family educated on Fall Prevention Program and Strategies. 09:32 Patient has been NPO before screening. The patient is alert, able to follow commands. ll1 The patient exhibits slurred or garbled speech. The patient is exhibiting difficulty speaking. The patient does not exhibit difficulty understanding words. The patient is able to swallow own secretions with no drooling or need for suction. Assessment: 09:37 Reassessment: No changes from previously documented assessment. Patient and/or family ll1 updated on plan of care and expected duration. Pain level reassessed. Patient is alert, oriented x 3, equal unlabored respirations, skin warm/dry/pink. 10:24 Reassessment: No changes from previously documented assessment. Patient and/or family ll1 updated on plan of care and expected duration. Pain level reassessed. Patient is alert, oriented x 3, equal unlabored respirations, skin warm/dry/pink. Daughter Lydia Botello notified of patients condition and transfer. His number is [phone]. 11:15 Reassessment: No changes from previously documented assessment. Patient and/or family ll1 updated on plan of care and expected duration. Pain level reassessed. Patient is alert, oriented x 3, equal unlabored respirations, skin warm/dry/pink. 12:15 Reassessment: No changes from previously documented assessment. Patient and/or family ll1 updated on plan of care and expected duration. Pain level reassessed. Patient is alert, oriented x 3, equal unlabored respirations, skin warm/dry/pink. 12:31 Reassessment: No changes from previously documented assessment. verbal report given to [facility]. Vital Signs: 09:26 BP 116 / 93; Pulse 99; Resp 17; Pulse Ox 98% ; Weight 74 kg; ll1 09:37 BP 117 / 91; Pulse 100; Resp 16; Pulse Ox 93% on R/A; ll1 10:45 BP 111 / 87; Pulse 93; Pulse Ox 94% on R/A; ll1 11:45 BP 110 / 81; Pulse 94; Resp 16; Temp 98.0; Pulse Ox 94% on R/A; ll1 12:32 BP 111 / 88; Pulse 94; Resp 16; Temp 98.0; Pulse Ox 94% on R/A; Pain 0/10; ll1 NIH Stroke Scale Scores: 09:08 NIHSS Score: 3 ll1 09:17 NIHSS Score: 3 ms3 11:02 NIHSS Score: 1 ms3 ED Course: 09:07 Patient arrived in ED. ms3 09:07 Lucien Boston DO is Attending Physician. ms3 09:12 CT Stroke Brain w/o Contrast In Process Unspecified. EDMS 09:13 Charlie Santo, RN is Primary Nurse. ll1 09:17 Triage completed. ll1 09:17 Arm band placed on Patient placed in an exam room, on a stretcher. ll1 09:23 Initial lab(s) drawn, by me, sent to lab. EKG done, by ED staff, reviewed by Lucien emAllie Boston DO. 09:33 Patient has correct armband on for positive identification. Bed in low position. Call ll1 light in reach. Side rails up X2. Client placed on continuous cardiac and pulse oximetry monitoring. NIBP monitoring applied. classroom monitor on. 09:36 Stroke CXR 1 View In Process Unspecified. EDMS 10:32 CT Head Angio In Process Unspecified. EDMS 10:32 CT Neck Angio In Process Unspecified. EDMS 11:32 1122 am called transfer center to secure placement ,1129 dr to kjAllie 11:37 1135 admin approval from Jovi Jansen approving Tracey Garg kjAllie 11:56 No provider procedures requiring assistance completed. Patient transferred, IV remains ll1 in place. Administered Medications: 09:28 Drug: TNK FOR STROKE - Tenecteplase 0.25 mg/kg {Co-Signature: jl7 (Barbara mcghee1 RN).} Route: IV; Rate: per protocol; Site: right antecubital; 10:20 Follow up: Response: No adverse reaction; IV Status: Completed infusion; IV Intake: ll1 3.67ml 10:15 Drug: Potassium Chloride 20 mEq Route: IV; Rate: calculated rate; Site: right ll antecubital; 12:32 Follow up: Response: No adverse reaction; IV Status: Completed infusion; IV Intake: ll1 100ml 11:40 Drug: Zofran (Ondansetron) 4 mg Route: IVP; Site: right antecubital; jl7 12:26 Follow up: Response: No adverse reaction ll1 Medication: 09:33 VIS not applicable for this client. ll1 Intake: 10:20 IV: 4ml; Total: 4ml. ll1 12:32 IV: 100ml; Total: 104ml. ll1 Outcome: 09:42 ER care complete, transfer ordered by . ms3 11:56 Transferred by ground EMS to [facility], Transfer form completed. ll1 11:56 Transferred Note: report called to Genoveva Edwards RN at [address] 11:56 Condition: stable 11:56 Instructed on the need for transfer. 12:36 Patient left the ED. ll1 NIH Stroke Scale - NIH Stroke Score Date: 05/29/2022 Time: 09:08 Total Score = 3 1a. Level of Consciousness (LOC) - 0(Alert) 1b. Level of Consciousness (LOC) (Month \T\ Age) - 0(Both) 1c. LOC Commands (Open \T\ Closes Eyes/Talent Rep) - 0(Both) 2. Best Gaze (Lateral Gaze Paresis) - 0(Normal) 3. Visual Field Loss - 0(No visual loss) 4. Facial Palsy - 2(Partial paralysis) 5a. Left Arm: Motor (10-second hold) - 0(No drift) 5b. Right Arm: Motor (10-second hold) - 0(No drift) 6a. Left Leg: Motor (5-second hold - always test supine) - 0(No drift) 6b. Right Leg: Motor (5-second hold - always test supine) - 0(No drift) 7. Limb Ataxia (finger/nose \T\ heel/umanzor - test with eyes open) - 0(Absent) 8. Sensory Loss (pinprick arms/legs/face) - 0(Normal) 9. Best Language: Aphasia (description/naming/reading) - 0(No aphasia) 10. Dysarthria (speech clarity - read or repeat words) - 1(Mild to Moderate) 11. Extinction and Inattention (visual/tactile/auditory/spatial/personal) - 0(No abnormality) Initials: ll1 NIH Stroke Scale - NIH Stroke Score Date: 05/29/2022 Time: 09:17 Total Score = 3 1a. Level of Consciousness (LOC) - 0(Alert) 1b. Level of Consciousness (LOC) (Month \T\ Age) - 0(Both) 1c. LOC Commands (Open \T\ Closes Eyes/Talent Rep) - 0(Both) 2. Best Gaze (Lateral Gaze Paresis) - 0(Normal) 3. Visual Field Loss - 0(No visual loss) 4. Facial Palsy - 2(Partial paralysis) 5a. Left Arm: Motor (10-second hold) - 0(No drift) 5b. Right Arm: Motor (10-second hold) - 0(No drift) 6a. Left Leg: Motor (5-second hold - always test supine) - 0(No drift) 6b. Right Leg: Motor (5-second hold - always test supine) - 0(No drift) 7. Limb Ataxia (finger/nose \T\ heel/umanzor - test with eyes open) - 0(Absent) 8. Sensory Loss (pinprick arms/legs/face) - 0(Normal) 9. Best Language: Aphasia (description/naming/reading) - 0(No aphasia) 10. Dysarthria (speech clarity - read or repeat words) - 1(Mild to Moderate) 11. Extinction and Inattention (visual/tactile/auditory/spatial/personal) - 0(No abnormality) Initials: ms3 NIH Stroke Scale - NIH Stroke Score Date: 05/29/2022 Time: 11:02 Total Score = 1 1a. Level of Consciousness (LOC) - 0(Alert) 1b. Level of Consciousness (LOC) (Month \T\ Age) - 0(Both) 1c. LOC Commands (Open \T\ Closes Eyes/Talent Rep) - 0(Both) 2. Best Gaze (Lateral Gaze Paresis) - 0(Normal) 3. Visual Field Loss - 0(No visual loss) 4. Facial Palsy - 0(Normal) 5a. Left Arm: Motor (10-second hold) - 0(No drift) 5b. Right Arm: Motor (10-second hold) - 0(No drift) 6a. Left Leg: Motor (5-second hold - always test supine) - 0(No drift) 6b. Right Leg: Motor (5-second hold - always test supine) - 0(No drift) 7. Limb Ataxia (finger/nose \T\ heel/umanzor - test with eyes open) - 0(Absent) 8. Sensory Loss (pinprick arms/legs/face) - 0(Normal) 9. Best Language: Aphasia (description/naming/reading) - 0(No aphasia) 10. Dysarthria (speech clarity - read or repeat words) - 1(Mild to Moderate) 11. Extinction and Inattention (visual/tactile/auditory/spatial/personal) - 0(No abnormality) Initials: ms3 Signatures: Dispatcher [employer] Altaf Little em1 Barbara Schmitt RN RN jl7 Leigh Ann Martin1 Charlie Santo RN RN ll1 Lucien Boston DO DO ms3 Barbara Schmitt RN jl7 Corrections: (The following items were deleted from the chart) 09:37 00:09 General: Appears distressed, Behavior is calm, cooperative, appropriate ll1 for age, ll1 09:37 00:09 Pain: Complains of pain in head Quality of pain is described as aching, ll1 ll1 09:37 00:09 Neuro: Reports headache unsteady gait. ll1 1 09:37 00:09 Cardiovascular: No deficits noted. ll1 1 09:37 00:09 Respiratory: No deficits noted. ll1 ll1 09:37 00:09 Musculoskeletal: Circulation, motion, and sensation intact. Capillary ll1 refill < 3 seconds, ll1
--- NOTE | 2022-05-29 09:43 | EDPHYS ---
Physician Documentation [facility] Name: Billie Botello Age: 61 yrs Sex: Female : 1960 Arrival Date: 05/29/2022 Time: 09:07 Bed 5 Private MD: ED Physician Lucien Boston HPI: 05/29 09:20 This 61 yrs old Female presents to ER via EMS with complaints of slurred speech. ms3 09:20 The patient's problem is reported as slurred speech. Onset: The symptoms/episode ms3 began/occurred 8:15 AM. Duration: The episode is continuous. Context: the episode(s) was witnessed, by co-worker(s), by EMS personnel. The symptoms are alleviated by nothing. The symptoms are aggravated by nothing. Associated signs and symptoms: The patient has no apparent associated signs or symptoms. Severity of symptoms: At their worst the symptoms were moderate in the emergency department the symptoms are unchanged Pain is currently a 5 / 10. Patient's baseline: Neuro: alert and fully oriented, Motor: no deficits, Ambulation: walks without assistance, Speech: normal, The patient has a previous history of CVA. Historical: - Allergies: 09:08 Bactrim; ll1 09:08 Sulfa (Sulfonamide Antibiotics); ll1 09:08 Trazodone; ll1 09:08 TRIMETHOPRIM; ll1 - PMHx: 09:08 Diabetes - NIDDM; etoh abuse; High Cholesterol; Hypertension; Pancreatitis; ll1 09:14 STROKE; ll1 - PSHx: 09:08 Appendectomy; section; left foot; right wrist; Tonsillectomy; ll1 - Immunization history:: Client reports receiving the 2nd dose of the Covid vaccine. - Social history:: Smoking status: Patient denies any tobacco usage or history of. ROS: 09:25 Constitutional: Negative for fever, and chills. Eyes: Negative for injury, pain, ms3 redness, and discharge, ENT: Negative for injury, pain, and discharge, Neck: Negative for injury, pain, and swelling, Cardiovascular: Negative for chest pain, and palpitations. Respiratory: Negative for shortness of breath, cough, wheezing, and pleuritic chest pain, Abdomen/GI: Negative for abdominal pain, nausea, vomiting, diarrhea, and constipation, MS/Extremity: Negative for injury and deformity, Skin: Negative for injury, rash, and discoloration. 09:25 Neuro: Positive for headache, speech changes. 09:25 All other systems are negative. Exam: 09:17 Radiologist reports: Negative ms3 09:17 Constitutional: This is a well developed, well nourished patient who is awake, alert, and in no acute distress. 09:17 Eyes: Pupils equal round and reactive to light, extra-ocular motions intact. Lids and lashes normal. Conjunctiva and sclera are non-icteric and not injected. Periorbital areas with no swelling, redness, or edema. ENT: Nares patent. No nasal discharge, no septal abnormalities noted. Tympanic membranes are normal and external auditory canals are clear. Oropharynx with no redness, swelling, or masses, exudates, or evidence of obstruction, uvula midline. Mucous membranes moist. Neck: Trachea midline, no cervical lymphadenopathy. Supple, full range of motion without nuchal rigidity, or vertebral point tenderness. No Meningismus. Chest/axilla: Normal chest wall appearance and motion. Nontender with no deformity. Cardiovascular: Regular rate and rhythm with a normal S1 and S2. No gallops, murmurs, or rubs. Normal PMI, no JVD. No pulse deficits. Respiratory: Lungs have equal breath sounds bilaterally, clear to auscultation and percussion. No rales, rhonchi or wheezes noted. No increased work of breathing, no retractions or nasal flaring. Abdomen/GI: Soft, non-tender, with normal bowel sounds. No distension or tympany. No guarding or rebound. No evidence of tenderness throughout. Skin: Warm, dry with normal turgor. Normal color with no rashes, no lesions, and no evidence of cellulitis. MS/ Extremity: Pulses equal, no cyanosis. Neurovascular intact. Full, normal range of motion. 09:17 Head/face: Noted is left lower facial paralysis. 09:17 Neuro: Orientation: is normal, Mentation: Dysarthria present, Memory: is normal, Cranial nerves: grossly normal, Cerebellar function: is grossly normal, normal finger to nose testing, Motor: is normal, Sensation: is normal, Gait: not tested. per EMS co-workers stated patient had ataxic gate. 09:19 ECG was reviewed by the Attending Physician. ms3 Vital Signs: 09:26 BP 116 / 93; Pulse 99; Resp 17; Pulse Ox 98% ; Weight 74 kg; ll1 09:37 BP 117 / 91; Pulse 100; Resp 16; Pulse Ox 93% on R/A; ll1 10:45 BP 111 / 87; Pulse 93; Pulse Ox 94% on R/A; ll1 11:45 BP 110 / 81; Pulse 94; Resp 16; Temp 98.0; Pulse Ox 94% on R/A; ll1 12:32 BP 111 / 88; Pulse 94; Resp 16; Temp 98.0; Pulse Ox 94% on R/A; Pain 0/10; ll1 NIH Stroke Scale Scores: 09:08 NIHSS Score: 3 ll1 09:17 NIHSS Score: 3 ms3 11:02 NIHSS Score: 1 ms3 MDM: 09:07 Patient medically screened. ms3 09:17 ED course: Discussed case with Dr Yanez. Aware of negative CT head and TNKase ms3 ordered. Will perform CTA after TNKase. He agrees with plan.. 09:24 ED course: Discussed risks (bleeding, disability, ) and benefits (possible ms3 resolution of stroke symptoms- difficulty speaking, facial droop) of TNK with patient and patient states she would like for TNK to be given.. 11:02 Differential diagnosis: CVA, TIA, metabolic disorder. Data reviewed: vital signs, ms3 nurses notes, lab test result(s), EKG, radiologic studies, and as a result, I will transfer due to capacity. Data interpreted: groundwater monitoring technician: rate is 94 beats/min, rhythm is normal sinus rhythm, with no ectopy, Interpretation: normal rate, normal rhythm. Counseling: I had a detailed discussion with the patient and/or guardian regarding: the historical points, exam findings, and any diagnostic results supporting the discharge/admit diagnosis, lab results, radiology results, the need to transfer to another facility, hospital at capacity. 11:29 ED course: Discussed case with Neuro ICU fellow and he accepts patient on behalf of Dr obdulio Martin. Discussed plan for transfer with patient. She understands/ agrees with plan.. 05/29 09:08 Order name: Basic Metabolic Panel; Complete Time: 10:04 ms3 05/29 09:08 Order name: CBC with Diff; Complete Time: 09:27 ms3 05/29 09:08 Order name: High Sensitivity Troponin; Complete Time: 10:04 ms3 05/29 09:08 Order name: Protime (+inr); Complete Time: 09:34 ms3 05/29 09:08 Order name: Ptt, Activated; Complete Time: 09:34 ms3 05/29 09:30 Order name: Glucose, Ancillary Testing; Complete Time: 09:34 EDMS 05/29 09:08 Order name: CT Stroke Brain w/o Contrast; Complete Time: 09:34 ms3 05/29 09:08 Order name: Stroke CXR 1 View; Complete Time: 09:45 ms3 05/29 09:47 Order name: CT Head Angio; Complete Time: 11:01 ms3 05/29 09:47 Order name: CT Neck Angio; Complete Time: 11:01 ms3 05/29 10:09 Order name: SARS RAPID; Complete Time: 11:01 kj1 05/29 09:08 Order name: EKG; Complete Time: 09:08 ms3 05/29 09:08 Order name: Accucheck; Complete Time: 09:19 ms3 05/29 09:08 Order name: Cardiac monitoring; Complete Time: 09:32 ms3 05/29 09:08 Order name: EKG - Nurse/Tech; Complete Time: 09:23 ms3 05/29 09:08 Order name: IV Saline Lock; Complete Time: 09:19 ms3 05/29 09:08 Order name: Labs collected and sent; Complete Time: 09:19 ms3 05/29 09:08 Order name: NPO; Complete Time: 09:19 ms3 05/29 09:08 Order name: O2 Per Protocol; Complete Time: 09:19 ms3 05/29 09:08 Order name: O2 Sat Monitoring; Complete Time: 09:19 ms3 05/29 09:08 Order name: Stroke Swallow Screen; Complete Time: 09:32 ms3 EC:19 Rate is 103 beats/min. Rhythm is regular. QRS [place] is Normal. [place] interval is normal. ms3 QRS interval is normal. Clinical impression: NSR w/ Non-specific ST/T Changes. Interpreted by me. Reviewed by me. Administered Medications: 09:28 Drug: TNK FOR STROKE - Tenecteplase 0.25 mg/kg {Co-Signature: jl7 (Barbara Schmitt ll1 RN).} Route: IV; Rate: per protocol; Site: right antecubital; 10:20 Follow up: Response: No adverse reaction; IV Status: Completed infusion; IV Intake: ll1 3.67ml 10:15 Drug: Potassium Chloride 20 mEq Route: IV; Rate: calculated rate; Site: right ll1 antecubital; 12:32 Follow up: Response: No adverse reaction; IV Status: Completed infusion; IV Intake: ll1 100ml 11:40 Drug: Zofran (Ondansetron) 4 mg Route: IVP; Site: right antecubital; jl7 12:26 Follow up: Response: No adverse reaction ll1 Disposition Summary: 05/29/22 09:42 Transfer Ordered Transfer Location: [facility] ms3 Reason: Higher level of care ms3 Condition: Stable ms3 Problem: new ms3 Symptoms: are unchanged ms3 Accepting Physician: Dr Martin(05/29/22 12:36) ll1 Diagnosis - ischemic stroke ms3 - Nausea ms3 Forms: - Medication Reconciliation Form ms3 - SBAR form ms3 Critical care time excluding procedures: 12:28 Critical care time: Bedside Care: 35 minutes, Consultation: 10 minutes. Total time: 45 ms3 minutes NIH Stroke Scale - NIH Stroke Score Date: 05/29/2022 Time: 09:08 Total Score = 3 1a. Level of Consciousness (LOC) - 0(Alert) 1b. Level of Consciousness (LOC) (Month \T\ Age) - 0(Both) 1c. LOC Commands (Open \T\ Closes Eyes/Caregivers Homecare) - 0(Both) 2. Best Gaze (Lateral Gaze Paresis) - 0(Normal) 3. Visual Field Loss - 0(No visual loss) 4. Facial Palsy - 2(Partial paralysis) 5a. Left Arm: Motor (10-second hold) - 0(No drift) 5b. Right Arm: Motor (10-second hold) - 0(No drift) 6a. Left Leg: Motor (5-second hold - always test supine) - 0(No drift) 6b. Right Leg: Motor (5-second hold - always test supine) - 0(No drift) 7. Limb Ataxia (finger/nose \T\ heel/umanzor - test with eyes open) - 0(Absent) 8. Sensory Loss (pinprick arms/legs/face) - 0(Normal) 9. Best Language: Aphasia (description/naming/reading) - 0(No aphasia) 10. Dysarthria (speech clarity - read or repeat words) - 1(Mild to Moderate) 11. Extinction and Inattention (visual/tactile/auditory/spatial/personal) - 0(No abnormality) Initials: ll1 NIH Stroke Scale - NIH Stroke Score Date: 05/29/2022 Time: 09:17 Total Score = 3 1a. Level of Consciousness (LOC) - 0(Alert) 1b. Level of Consciousness (LOC) (Month \T\ Age) - 0(Both) 1c. LOC Commands (Open \T\ Closes Eyes/Caregivers Homecare) - 0(Both) 2. Best Gaze (Lateral Gaze Paresis) - 0(Normal) 3. Visual Field Loss - 0(No visual loss) 4. Facial Palsy - 2(Partial paralysis) 5a. Left Arm: Motor (10-second hold) - 0(No drift) 5b. Right Arm: Motor (10-second hold) - 0(No drift) 6a. Left Leg: Motor (5-second hold - always test supine) - 0(No drift) 6b. Right Leg: Motor (5-second hold - always test supine) - 0(No drift) 7. Limb Ataxia (finger/nose \T\ heel/umanzor - test with eyes open) - 0(Absent) 8. Sensory Loss (pinprick arms/legs/face) - 0(Normal) 9. Best Language: Aphasia (description/naming/reading) - 0(No aphasia) 10. Dysarthria (speech clarity - read or repeat words) - 1(Mild to Moderate) 11. Extinction and Inattention (visual/tactile/auditory/spatial/personal) - 0(No abnormality) Initials: ms3 NIH Stroke Scale - NIH Stroke Score Date: 05/29/2022 Time: 11:02 Total Score = 1 1a. Level of Consciousness (LOC) - 0(Alert) 1b. Level of Consciousness (LOC) (Month \T\ Age) - 0(Both) 1c. LOC Commands (Open \T\ Closes Eyes/Caregivers Homecare) - 0(Both) 2. Best Gaze (Lateral Gaze Paresis) - 0(Normal) 3. Visual Field Loss - 0(No visual loss) 4. Facial Palsy - 0(Normal) 5a. Left Arm: Motor (10-second hold) - 0(No drift) 5b. Right Arm: Motor (10-second hold) - 0(No drift) 6a. Left Leg: Motor (5-second hold - always test supine) - 0(No drift) 6b. Right Leg: Motor (5-second hold - always test supine) - 0(No drift) 7. Limb Ataxia (finger/nose \T\ heel/umanzor - test with eyes open) - 0(Absent) 8. Sensory Loss (pinprick arms/legs/face) - 0(Normal) 9. Best Language: Aphasia (description/naming/reading) - 0(No aphasia) 10. Dysarthria (speech clarity - read or repeat words) - 1(Mild to Moderate) 11. Extinction and Inattention (visual/tactile/auditory/spatial/personal) - 0(No abnormality) Initials: ms3 Signatures: Dispatcher [employer] EDMS Barbara Schmitt RN RN jl7 Charlie Santo RN RN ll1 Lucien Boston DO DO ms3 Barbara Schmitt RN jl7 Corrections: (The following items were deleted from the chart) 09:25 09:24 ED course: Discussed risks and benefits of TNK with patient and patient ms3 states she would like for TNK to be given.. ms3 11:30 09:42 Dr [email or web address] ms3 12:36 11:30 Dr Martin ms3 ll1
--- NOTE | 2022-05-29 09:43 | RAD REPORT ---
EXAM DESCRIPTION: RAD - Chest Single View - 05/29/2022 9:34 am CLINICAL HISTORY: stroke COMPARISON: <Comparisons> FINDINGS: Lines: None. Lungs: No evidence of edema or pneumonia. Pleural: No significant pleural effusions or pneumothorax. Cardiac: The heart size is within normal limits. Mediastinum: Within normal limits. Bones: No acute fractures. Other: None IMPRESSION: No acute cardiopulmonary disease.
[2022-05-29 09:57] LABS: Troponin High Sensitivity 7.3 pg/mL (<58.9)
[2022-05-29 10:03] LABS: Potassium 2.9 mmol/L (3.5-5.1)
[2022-05-29] MEDS ORDERED: KCL 20 MEQ/100 mL IVPB 100 ML IV ONE (10:12)
[2022-05-29 10:39] LABS: SARS-CoV-2 Antigen Rapid Res Negative (Negative)
--- NOTE | 2022-05-29 10:46 | RAD REPORT ---
EXAM DESCRIPTION: CT - Head angio - 05/29/2022 10:30 am CLINICAL HISTORY: Neuro deficit, acute, stroke suspected COMPARISON: Ct Stroke Brain Wo Cont dated 05/29/2022; Head Brain Wo Cont dated 07/26/2020 TECHNIQUE: CT angiography of the head was performed with MIPs. All CT scans are performed using dose optimization technique as appropriate and may include automated exposure control or mA/KV adjustment according to patient size. FINDINGS: Anterior circulation: Calcified plaque at the cavernous carotids. No aneurysm or large vessel occlusion. No hemodynamically significant stenosis. No arteriovenous malformation identified. Posterior circulation: type bilateral posterior cerebral arteries. No aneurysm or large vessel occlusion. No hemodynam ically significant stenosis. No arteriovenous malformation identified. IMPRESSION: No significant flow abnormality is detected.
--- NOTE | 2022-05-29 10:48 | RAD REPORT ---
EXAM DESCRIPTION: CT - Neck Angio - 05/29/2022 10:30 am CLINICAL HISTORY: Neuro deficit, acute, stroke suspected COMPARISON: Soft Tissue Neck W/Contr dated 03/30/2022; Head C Spine Mpr Wo Con dated 09/16/2020; Head C Spine Mpr Wo Con dated 05/21/2016; CT HEAD CSPINE MPR WO CONTRAST dated 02/27/2015 TECHNIQUE: CT angiography of the neck vessels was performed with MIPs. All CT scans are performed using dose optimization technique as appropriate and may include automated exposure control or mA/KV adjustment according to patient size. FINDINGS: A left aortic arch is identified with normal three vessel configuration of the great vesse ls. No significant flow abnormality is seen of the common carotid bilaterally. Scattered calcified and no ncalcified plaque along the common carotid arteries and at the carotid bifurcations. No significant stenosis is identified involving the cervical segments of both internal carotid arteri es. Normal flow is seen within both vertebral arteries. Left dominant vertebral artery. Multilevel degenerative changes are present in the spine. IMPRESSION: No significant flow abnormality of the neck vessels is identified.
[2022-05-29] MEDS ORDERED: ONDANSETRON 4 MG/2 ML VIAL ONE (11:38)
[2022-05-29 12:42] VITALS: O2SAT 94
[2022-05-29 12:44] VITALS: TEMP 98
[2022-05-29 12:45] VITALS: BP 111/88
--- NOTE | 2022-05-31 12:54 | EKG ---
Test Date: 2022-05-29 Test Time: 09:19:19 Training Engineer: TRICIA MEASUREMENT RESULTS: Intervals: Rate: 103 MN: 178 QRSD: 72 QT: 350 QTc: 458 [place]: P: 66 MN: 178 QRS: -4 T: 73 INTERPRETIVE STATEMENTS: Sinus tachycardia Low voltage QRS Cannot rule out Anterior infarct, age undetermined Abnormal ECG Compared to ECG 03/28/2022 20:41:02 Low QRS voltage now present Myocardial infarct finding now present Sinus rhythm no longer present Electronically Signed On 05-31-22 12:50:26 DRYWALLER by Tobias Kapadia
== END 2022-05-29 12:36 | disposition short-term general hospital (02) ==
LOC: ER 09:06
DX: I63.9 Cerebral infarction, unspecified (principal); R11.0 Nausea; I10 Essential (primary) hypertension; R29.703 NIHSS score 3; Z88.1 Allergy status to other antibiotic agents; Z88.2 Allergy status to sulfonamides; Z88.5 Allergy status to narcotic agent; Z88.8 Allergy status to other drugs, medicaments and biological substances
CPT/HCPCS: 36415; 70450; 70496; 70498; 71045; 80048; 82947; 84484; 85025; 85610; 85730; 87811; 92977; 93005; 96365; 96366; 96375; 99285; J2405; J3101; J3480; J7030; Q9967

== ENCOUNTER 2022-11-12 19:30 | Emergency (ER) | payer SELFPAY ==
--- NOTE | 2022-11-12 19:54 | RAD REPORT ---
EXAM DESCRIPTION: CT - [id number] - 11/12/2022 7:45 pm CLINICAL HISTORY: Trauma, head and neck injury. Pain;Trauma COMPARISON: <Comparisons> TECHNIQUE: Axial 5 mm thick images of the head were obtained. Axial 2 mm thick images of the cervical spine were obtained with sagittal and coronal reconstruction images generated and reviewed. All CT scans are performed using dose optimization technique as appropriate and may include automated exposure control or mA/KV adjustment according to patient size. FINDINGS: CT HEAD WITHOUT CONTRAST: No acute hemorrhage, hydrocephalus or extra-axial collection is identified.No areas of brain edema or midline shift. The paranasal sinuses and mastoids are clear.The calvarium is intact. CT CERVICAL SPINE WITHOUT CONTRAST: No fracture or subluxation.Moderate lower cervical degenerative changes.No prevertebral soft tissues swelling is identified. IMPRESSION: No acute intracranial or cervical spine findings.
--- OUTSIDE RECORDS SUMMARY | 2022-11-12 19:55 | XMS REPORT | Continuity of Care Document ---
:1960 Author Organization [facility] t Address [address] [facility] [address] [place] [address] Care Team Providers Name Role Phone Chelsea Virk Primary Care Physician LIBORIO SORENSON Attending Clinician Unavailable PERCY HEARN Attending Clinician Unavailable PERCY HEARN Attending Clinician Unavailable Percy Hearn MD Attending Clinician Doctor Unassigned, [place] Attending Clinician Unavailable MARCK FOSTER Attending Clinician Unavailable Veronica MOSLEY, Gianfranco Wiseman Attending Clinician [phone] Layne Prieto MD Attending Clinician [phone] Marck Foster MD Attending Clinician [phone] RICH CHIANG Attending Clinician Unavailable Aditya Frost Attending Clinician GIANFRANCO MARTIN Admitting Clinician Unavailable RICH CHIANG Admitting Clinician Unavailable Aditya Frost Admitting Clinician Problems Condition Condition Condition Status Onset Resolution Last Treating Co mments Source Name Details Category Date Date Treatment Clinician Date Stroke Stroke Disease Recurre 2021-[address] [facility] (cerebrum) (cerebrum) nce 07-29 [facility]en kes 00:00: Medical 00 Center Lesion of Lesion of Disease Active 2021-[address] [facility] parotid parotid 07-29 [facility] gland gland [facility] 00 Center Type 2 Type [address] [facility] diabetes diabetes 12-08 [facility] mellitus mellitus 00:00: Medica l 00 Center Hypokalemi Hypokalemi Disease Active [facility] a a 12-08 [facility] Medical 00 Center Hypomagnes Hypomagnes Disease Active [facility] emia emia 12-08 [facility] Alcohol Alcohol Disease Active [facility] abuse abuse 12-08 [facility] Essential Essential Disease Active [facility] hypertensi hypertensi 12-08 Carmen kes on on 00:00: Medical 00 Center Stroke Stroke Disease Recurre [facility] n[facility] 12-07 [facility] 00 Center Status Status Disease Active [facility] post post 12-07 [facility] administra administra 00:00: Me dical tion of tion of 00 Center tPA (rtPA) tPA (rtPA) in a in a different different facility facility within the within the last 24 last 24 hours hours prior to prior to admission admission to current to current facility facility Status Status Disease Active [facility] post post 12-07 [facility] administra [...] 10-30 21:50:00 l 10/30/2014 03:39: Sebastian balbuena 00 [facility] No known No known Disease Unive rs active active ity of problems problems [facility] Branch Diverticul Diverticu Problem Resolve 2014 Memoria itis litis d 04:20:14 l (disorder) (disorder) He rmann Resolved Problem 2014 [facility] Hypertensi Hypertens Problem Resolve 2014 Memoria ve alejandro d 04:20:14 l disorder, disorder, Herm debbie systemic systemic arterial arterial (disorder) (disorder) Resolved Problem 2014 [facility] CHRONIC CHRONIC Diagnosis Active 2014-11-05 Memoria PANCREATIT PANCREATIT 21:50:00 l IS IS Active [facility] 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 - [facility] without without St complicati complicati Carmen kes on on Medical Center History of History of Problem Active C ommon hypokalemi hypokalemi Sp timo a a [facility] Pain in Pain in Problem Active Common left knee left knee Spir it - [facility] Vitamin D Vitamin D Problem Active Com mon deficiency deficiency Sp timo [facility] Uncontroll Uncontroll Problem Active C ommon ed type 2 ed type 2 Spir it diabetes diabetes - CHI mellitus mellitus St without without [facility] complicati complicati Me dical on, on, Center without without long-term long-term current current use of use of insulin insulin Other Other Problem Active Common chronic chronic Spirit pain pain [facility] Hyperlipid Hyperlipid Problem Active C ommon emia emia [facility] Hypothyroi Hypothyroi Problem Active C ommon dism dism [facility] Dizziness Dizziness Problem Active Com mon [facility] Hypertensi Hypertensi Problem Active C ommon on on [facility] Depression Depression Problem Active C ommon [facility] Allergic Allergic Problem Active Commo n rhinitis, rhinitis, Spir it seasonal seasonal [facility] Allergies, Adverse Reactions, Alerts Allergy Allergy Status Severity Reaction(s) Onset Inactive Treating Comm ents Source Name Type Date Date Clinician Mesna - Propensi Active Intraven ty to 5-24 ous adverse 00:00: reaction 00 to drug Bactrim Propensi Active - Oral ty to 3-15 adverse 00:00: reaction 00 to drug Bactrim Propensi Active ty to 1-22 adverse 00:00: reaction 00 to drug SULFAMET Allergy Active Low Rash [facility] HOXAZOLE 12-07 -TRIMETH 00:00: OPRIM 00 Sulfamet Propensi Active Rash [facility] hoxazole ty to 12-07 Lu -Trimeth adverse 00:00: Medical oprim reaction 00 Center s SULFA Drug Active Hives Univers (SULFONA Class 6-13 ity of MIDE 00:00: [place] ANTIBIOT 00 Medical ICS) Branch Sulfa Propensi Active Hives Univers (Sulfona ty to 6-13 ity of mide adverse 00:00: [place] Antibiot reaction 00 Medica l ics) s Branch Bactrim Bactrim Active Memoria l Tobias Sulfa Adverse Active Info Not Common Reaction Available Spiri t - [facility] Family History Family Member Diagnosis Comments Start Date Stop Date Source Natural father Alcohol abuse [facility] Natural father Stroke [facility] Natural mother Stroke [facility] Natural sister Diabetes [facility] Social History Social Habit Start Date Stop Date Quantity Comments Source History SDOH [facility] Non-Med Medical Center History SDOH [facility] Places Medical Ce nter Lived History of tobacco Cigarette Smoker [facility] use Medical Center History SDOH [facility] Alcohol Frequency Medical Center History SDOH [facility] Alcohol Std Drinks Medica l Center History SDOH [facility] Alcohol Binge Medical [facility] Exposure to 2022-06-12 2022-06-22 Not sure University of SARS-CoV-2 (event) 00:00:00 14:30:00 [facility] Alcohol intake 2022-05-31 2022-05-31 [facility] 00:[facility]:00:00 of alcohol Medical Center (finding) History [facility] 2022-05-31 2022-05-[address] [facility] Transport Med 00:00:00 00:00:[address] History SDOH 2022-05-31 2022-05-[address] [facility] Housing Unable to 00:00:00 00:00:00 Medical Center Pay History SDOH 2022-05-31 2022-05-[address] [facility] Housing Homeless 00:00:00 00:00:00 Medical Center Last Year Alcohol Comment 2022-05-31 2022-05-31 1-[address] [facility] 00:00:00 00:00:00 PINTS PER WEEK Medical Ce nter Tobacco Comment 2022-05-30 2022-05-30 1 pack/week for [facility] 00:00:00 00:00:00 the last 10 Medical Cente r years Tobacco use and 2022-05-30 2022-05-[address] [facility]en kes exposure 00:00:00 00:00:00 tobacco non-user Medical Center Cigarette 2018-12-07 2018-12-[address] [facility] pack-years 00:00:00 00:00:00 Medical Center Social History 2014-10-30 2014-10-30 [facility] 10:31:19 10:31:19 Cigarettes smoked 2010-12-14 2010-12-14 Univers ity of current (pack per 00:00:00 00:00:00 [facility] ) - Reported Branch Sex [birth year] At [birth year] Universit y of 00:00:00 00:00:00 [facility] Smoking Status Start Date Stop Date Source Occasional tobacco smoker 2022-05-30 00:00:00 [facility] Smokes tobacco daily 2010-12-14 00:00:00 Univers ity of [facility] Medications Ordered Filled Start Stop Current Ordering Indication Dosage Frequency Signature Comments Components Source Medication Medication Date Date Medication? Clinician (SIG) Name Name aspirin 81 2021-07- No 81mg QD Take [address] [facility] MG chewable 08-01 tablet (81 L ukes tablet 00:00: 23:59 mg total) Medic al 00 :00 by mouth Center daily. clopidogreL 2021-07- No 75mg QD Take [address] [facility] [address] (PLAVIX) 75 -01 06- tablet (75 L ukes mg tablet 00:00: 23:59 mg total) Me dical 00 :00 by mouth Center daily. folic acid 2021-07 No 1mg QD Take [address] [facility] (FOLVITE) 1 08-01- tablet (1 Carmen kes MG tablet 00:00: 23:59 mg total) Me dical 00 :00 by mouth Center daily. thiamine 2021-07- No 100mg QD Take 1 [facility] 100 MG -01 06- tablet [facility] tablet 00:00: 23:59 (100 mg Medical 00 :00 total) by Center mouth daily. aspirin 81 2021-07- No 81mg QD Take [address] [facility] [facility] MG chewable -01 06- tablet (81 L ukes tablet 00:00: 23:59 mg total) Medic al 00 :00 by mouth Center daily. clopidogreL 2021-07- No 75mg QD Take [address] [facility] (PLAVIX) 75 08-01- tablet (75 L ukes mg tablet 00:00: 23:59 mg total) Me dical 00 :00 by mouth Center daily. folic acid 2021-07- No 1mg QD Take [address] [facility] (FOLVITE) 1 08-01- tablet (1 Carmen kes MG tablet 00:00: 23:59 mg total) Me dical 00 :00 by mouth Center daily. thiamine 2021-2022- No 100mg QD Take 1 [facility] t 100 MG 08-01 tablet [facility] tablet 00:00: 23:59 (100 mg Medical 00 :00 total) by Center mouth daily. multivitami 2021-07- No 1{tbl} QD Take [address] n 08-01 tablet by [facility] (THERAGRAN) 00:00: 23:59 mouth Medi gurinder tablet 00 :00 daily. [place] multivitami 2021-07- No 1{tbl} QD Take [address] n 08-01- tablet by [facility] (THERAGRAN) 00:00: 23:59 mouth Medi gurinder tablet 00 :00 daily. [place] aspirin 81 2021-07- No 81mg QD Take [address] [facility] [facility] MG chewable 08-01 tablet (81 L ukes tablet 00:00: 23:59 mg total) Medic al 00 :00 by mouth Center daily. clopidogreL 2021-07- No 75mg QD Take [address] [facility] [facility] (PLAVIX) 75 08-01- tablet (75 L ukes mg tablet 00:00: 23:59 mg total) Me dical 00 :00 by mouth Center daily. folic acid 2021-07- No 1mg QD Take [address] [facility] (FOLVITE) 1 08-01 tablet (1 Carmen kes MG tablet 00:00: 23:59 mg total) Me dical 00 :00 by mouth Center daily. thiamine 2021-2022- No 100mg QD Take 1 [facility] 100 MG 08-01- tablet [facility] tablet 00:00: 23:59 (100 mg Medical 00 :00 total) by Center mouth daily. multivitami 2021-07- No 1{tbl} QD Take [address] n 08-01 tablet by [facility] (THERAGRAN) 00:00: 23:59 mouth Medi gurinder tablet 00 :00 daily. Center aspirin 81 2021-07- No 81mg QD Take [address] [facility] MG chewable 08-01 tablet (81 L ukes tablet 00:00: 23:59 mg total) Medic al 00 :00 by mouth Center daily. clopidogreL 2021-07- No 75mg QD Take [address] [facility] (PLAVIX) 75 08-01- tablet (75 L ukes mg tablet 00:00: 23:59 mg total) Me dical 00 :00 by mouth Center daily. folic acid 2021-07- No 1mg QD Take [address] [facility] [facility] (FOLVITE) 1 08-01 tablet (1 Carmen kes MG tablet 00:00: 23:59 mg total) Me dical 00 :00 by mouth Center daily. thiamine 2021-07- No 100mg QD Take 1 [facility] t 100 MG 08-01 tablet [facility] tablet 00:00: 23:59 (100 mg Medical 00 :00 total) by Center mouth daily. multivitami 2021-07- No 1{tbl} QD Take [address] n 08-01 tablet by [facility] (THERAGRAN) 00:00: 23:59 mouth Medi gurinder tablet 00 :00 daily. Center aspirin 81 2021-07- No 81mg QD Take [address] [facility] MG chewable 08-01 tablet (81 L ukes tablet 00:00: 23:59 mg total) Medic al 00 :00 by mouth Center daily. clopidogreL 2021-07- No 75mg QD Take [address] [facility] (PLAVIX) 75 08-01- tablet (75 L ukes mg tablet 00:00: 23:59 mg total) Me dical 00 :00 by mouth Center daily. folic acid 2021-07- No 1mg QD Take [address] [facility] (FOLVITE) 1 08-01 tablet (1 Carmen kes MG tablet 00:00: 23:59 mg total) Me dical 00 :00 by mouth Center daily. thiamine 2021-07- No 100mg QD Take 1 [facility] 100 MG 08-01 tablet [facility] tablet 00:00: 23:59 (100 mg Medical 00 :00 total) by Center mouth daily. multivitami 2021-07- No 1{tbl} QD Take [address] n 08-01- tablet by [facility] (THERAGRAN) 00:00: 23:59 mouth Medi gurinder tablet 00 :00 daily. Center aspirin 81 2021-07- No 81mg QD Take [address] [facility] MG chewable 08-01 tablet (81 L ukes tablet 00:00: 23:59 mg total) Medic al 00 :00 by mouth Center daily. clopidogreL 2021-07- No 75mg QD Take [address] [facility] (PLAVIX) 75 08-01- tablet (75 L ukes mg tablet 00:00: 23:59 mg total) Me dical 00 :00 by mouth Center daily. folic acid 2021-07- No 1mg QD Take [address] [facility] (FOLVITE) 1 08-01 tablet (1 Carmen kes MG tablet 00:00: 23:59 mg total) Me dical 00 :00 by mouth Center daily. thiamine 2021-07- No 100mg QD Take 1 [facility] 100 MG 08-01 tablet [facility] tablet 00:00: 23:59 (100 mg Medical 00 :00 total) by Center mouth daily. multivitami 2021-07- No 1{tbl} QD Take [address] n 08-01 tablet by [facility] (THERAGRAN) 00:00: 23:59 mouth Medi gurinder tablet 00 :00 daily. Center aspirin 81 2021-07- No 81mg QD Take [address] [facility] MG chewable 08-01 tablet (81 L ukes tablet 00:00: 23:59 mg total) Medic al 00 :00 by mouth Center daily. clopidogreL 2021-07- No 75mg QD Take [address] [facility] (PLAVIX) 75 08-01- tablet (75 L ukes mg tablet 00:00: 23:59 mg total) Me dical 00 :00 by mouth Center daily. folic acid 2021-07- No 1mg QD Take [address] [facility] (FOLVITE) 1 08-01 tablet (1 Carmen kes MG tablet 00:00: 23:59 mg total) Me dical 00 :00 by mouth Center daily. thiamine 2021-07- No 100mg QD Take 1 [facility] 100 MG 08-01 tablet [facility] tablet 00:00: 23:59 (100 mg Medical 00 :00 total) by Center mouth daily. multivitami 2021-07- No 1{tbl} QD Take [address] n 08-01 tablet by [facility] (THERAGRAN) 00:00: 23:59 mouth Medi gurinder tablet 00 :00 daily. Center pantoprazol 2021-07 Yes 20mg QD Take [address] [facility] e 1-28 by mouth [facility] (PROTONIX) 19:40: daily. Medic al 20 MG 35 Center tablet citalopram 2021-07 Yes 40mg QD Take [address] (CeleXA) 40 1-28 by mouth Luke s MG tablet 19:40: daily. Medica l 35 Center hydroCHLORO 2021-07 Yes 25mg Take [address] thiazide 1-28 by mouth [facility] (HYDRODIURI 19:40: every Medic al L) 25 MG 35 other day. Cente r tablet pantoprazol 2021-07 Yes 20mg QD Take [address] [facility] [facility] e 1-28 by mouth [facility] (PROTONIX) 19:40: daily. Medic al 20 MG 35 Center tablet citalopram 2021-07 Yes 40mg QD Take [address] (CeleXA) 40 1-28 by mouth Luke s MG tablet 19:40: daily. Medica l 35 Center hydroCHLORO 2021-07 Yes 25mg Take [address] thiazide 1-28 by mouth [facility] (HYDRODIURI 19:40: every Medic al L) 25 MG 35 other day. Cente r tablet pantoprazol 2021-07 Yes 20mg QD Take [address] [facility] e 1-28 by mouth [facility] (PROTONIX) 19:40: daily. Medic al 20 MG 35 Center tablet citalopram 2021-07 Yes 40mg QD Take [address] (CeleXA) 40 1-28 by mouth Luke s MG tablet 19:40: daily. Medica l 35 Center hydroCHLORO 2021-07 Yes 25mg Take [address] thiazide 1-28 by mouth [facility]ukes (HYDRODIURI 19:40: every Medic al L) 25 MG 35 other day. Cente r tablet pantoprazol 2021-07 Yes 20mg QD Take [address] [facility] e 1-28 by mouth [facility] (PROTONIX) 19:40: daily. Medic al 20 MG 35 Center tablet citalopram 2021-07 Yes 40mg QD Take [address] (CeleXA) 40 1-28 by mouth Luke s MG tablet 19:40: daily. Medica l 35 Center hydroCHLORO 2021-07 Yes 25mg Take [address] thiazide 1-28 by mouth [facility] (HYDRODIURI 19:40: every Medic al L) 25 MG 35 other day. Cente r tablet pantoprazol 2021-07 Yes 20mg QD Take [address] [facility] e 1-28 by mouth [facility] (PROTONIX) 19:40: daily. Medic al 20 MG 35 Center tablet citalopram 2021-07 Yes 40mg QD Take [address] (CeleXA) 40 1-28 by mouth Luke s MG tablet 19:40: daily. Medica l 35 Center hydroCHLORO 2021-07 Yes 25mg Take [address] thiazide 1-28 by mouth [facility]ukes (HYDRODIURI 19:40: every Medic al L) 25 MG 35 other day. Cente r tablet pantoprazol 2021-07 Yes 20mg QD Take [address] [facility] e 1-28 by mouth [facility] (PROTONIX) 19:40: daily. Medic al 20 MG 35 Center tablet citalopram 2021-07 Yes 40mg QD Take [address] (CeleXA) 40 1-28 by mouth Luke s MG tablet 19:40: daily. Medica l 35 Center hydroCHLORO 2021-07 Yes 25mg Take [address] [facility] [address] thiazide 1-28 by mouth [facility]ukes (HYDRODIURI 19:40: every Medic al L) 25 MG 35 other day. Cente r tablet pantoprazol 2021-07 Yes 20mg QD Take [address] [facility] e 1-28 by mouth [facility] (PROTONIX) 19:40: daily. Medic al 20 MG 35 Center tablet citalopram 2021-07 Yes 40mg QD Take [address] (CeleXA) 40 1-28 by mouth Luke s MG tablet 19:40: daily. Medica l 35 Center hydroCHLORO 2021-07 Yes 25mg Take [address] thiazide 1-28 by mouth [facility]ukes (HYDRODIURI 19:40: every Medic al L) 25 MG 35 other day. Cente r tablet atorvastati 2021-07 Yes 80mg QD Take [address] [facility] n (LIPITOR) 1-28 tablet (80 Carmen kes 80 MG 00:00: mg total) Medical tablet 00 by mouth Center nightly. atorvastati 2021-07 Yes 80mg QD Take [address] [facility] n (LIPITOR) 1-28 tablet (80 Carmen kes 80 MG 00:00: mg total) Medical tablet 00 by mouth Center nightly. atorvastati 2021-07 Yes 80mg QD Take [address] [facility] n (LIPITOR) 1-28 tablet (80 Carmen kes 80 MG 00:00: mg total) Medical tablet 00 by mouth Center nightly. atorvastati 2021-07 Yes 80mg QD Take [address] [facility] n (LIPITOR) 1-28 tablet (80 Carmen kes 80 MG 00:00: mg total) Medical tablet 00 by mouth Center nightly. atorvastati 2021-07 Yes 80mg QD Take [address] [facility] n (LIPITOR) 1-28 tablet (80 Carmen kes 80 MG 00:00: mg total) Medical tablet 00 by mouth Center nightly. atorvastati 2021-07 Yes 80mg QD Take [address] [facility] n (LIPITOR) 1-28 tablet (80 Carmen kes 80 MG 00:00: mg total) Medical tablet 00 by mouth Center nightly. atorvastati 2021-07 Yes 80mg QD Take [address] [facility] n (LIPITOR) 1-28 tablet (80 Carmne kes 80 MG 00:00: mg total) Medical tablet 00 by mouth Center nightly. ranitidine 2021-07- No 150mg Q.5D Take [address] (ZANTAC) 1-27 11-27 mg by [facility] 150 MG 15:20: 00:00 mouth 2 Medical tablet 39 :00 (two) Center times daily. ranitidine 2021-07- No 150mg Q.5D Take [address] (ZANTAC) 1-27 11-27 mg by [facility] 150 MG 15:20: 00:00 mouth 2 Medical tablet 39 :00 (two) Center times daily. ranitidine 2021-07- No 150mg Q.5D Take [address] (ZANTAC) 1-27 11-27 mg by [facility] 150 MG 15:20: 00:00 mouth 2 Medical tablet 39 :00 (two) Center times daily. ranitidine 2021-07- No 150mg Q.5D Take [address] (ZANTAC) 1-27 11-27 mg by [facility] 150 MG 15:20: 00:00 mouth 2 Medical tablet 39 :00 (two) Center times daily. ranitidine 2021-07- No 150mg Q.5D Take [address] (ZANTAC) 1-27 11-27 mg by [facility] 150 MG 15:20: 00:00 mouth 2 Medical tablet 39 :00 (two) Center times daily. ranitidine 2021-07- No 150mg Q.5D Take [address] (ZANTAC) 1-27 11-27 mg by [facility] 150 MG 15:20: 00:00 mouth 2 Medical tablet 39 :00 (two) Center times daily. ranitidine 2021-07- No 150mg Q.5D Take [address] (ZANTAC) 1-27 11-27 mg by [facility] 150 MG 15:20: 00:00 mouth 2 Medical tablet 39 :00 (two) Center times daily. potassium 2021-07- No Take by [facility] gluconate 1-27 11-27 mouth. [facility] 550 mg (90 15:20: 00:00 Medica l mg) Tab 33 :00 Center potassium 2021-07- No Take by [facility] gluconate 1-27 11-27 mouth. [facility] 550 mg (90 15:20: 00:00 Medica l mg) Tab 33 :00 Center potassium 2021-07- No Take by [facility] gluconate 1-27 11-27 mouth. [facility] 550 mg (90 15:20: 00:00 Medica l mg) Tab 33 :00 Center potassium 2021-07- No Take by [facility] gluconate 1-27 11-27 mouth. [facility] 550 mg (90 15:20: 00:00 Medica l mg) Tab 33 :00 [place] potassium 2021-07- No Take by [facility] gluconate 07-30 mouth. [facility] 550 mg (90 15:20: 00:00 Medica l mg) Tab 33 :00 [place] potassium 2021-07- No Take by [facility] gluconate 07-30 mouth. [facility] 550 mg (90 15:20: 00:00 Medica l mg) Tab 33 :00 [place] potassium 2021-07- No Take by [facility] gluconate 07-30 mouth. [facility] 550 mg (90 15:20: 00:00 Medica l mg) Tab 33 :00 [place] omeprazole 2021-07- No 40mg QD Take [address] [facility] (PRILOSEC) 07-30 by mouth Luke s 40 MG 15:18: 00:00 daily. Medical capsule 02 :00 [place] omeprazole 2021-07- No 40mg QD Take [address] [facility] (PRILOSEC) 07-30 by mouth Luke s 40 MG 15:18: 00:00 daily. Medical capsule 02 :00 [place] omeprazole 2021-07- No 40mg QD Take [address] [facility] (PRILOSEC) 07-30 by mouth Luke s 40 MG 15:18: 00:00 daily. Medical capsule 02 :00 [place] omeprazole 2021-07- No 40mg QD Take [address] [facility] (PRILOSEC) 07-30 by mouth Luke s 40 MG 15:18: 00:00 daily. Medical capsule 02 :00 [place] omeprazole 2021-07- No 40mg QD Take [address] [facility] (PRILOSEC) 07-30 by mouth Luke s 40 MG 15:18: 00:00 daily. Medical capsule 02 :00 [place] omeprazole 2021-07- No 40mg QD Take [address] [facility] (PRILOSEC) 07-30 by mouth Luke s 40 MG 15:18: 00:00 daily. Medical capsule 02 :00 [place] omeprazole 2021-07- No 40mg QD Take [address] [facility] (PRILOSEC) 07-30 by mouth Luke s 40 MG 15:18: 00:00 daily. Medical capsule 02 :00 Center TAKE 1 2-1 No TABLET 0-12 DAILY. 00:00: 00 TAKE 1 2-1 No TABLET 0-12 DAILY. 00:00: 00 Dose [...] 1-22 00:00: 00 Dose 2022-0 No Unknown 1- 00:00: 00 Dose 2022-0 No Unknown 1- 00:00: 00 Dose 2022-0 No Unknown 1-22 00:00: 00 Dose 2022-0 No Unknown 1-22 00:00: 00 Dose 2022-0 No Unknown 1- 00:00: 00 cetirizine 2021-0 No 1mg 10 [...] 8-12 capsule,del 00:00: ayed 00 release ondansetron 2021-0 No 1mg 8 mg 6-08 [...] 12.5 mg 5-03 tablet 00:00: 00 atorvastati 1-0 No 1mg n 40 mg 5-03 tablet 00:00: 00 Levemir 2021-0 No 30(3 FlexTouch 4-27 mL) U-100 00:00: Insulin 100 00 unit/mL (3 mL) subcutaneou s pen Levemir 1-0 No 10(3 FlexTouch 4-27 mL) U-100 00:00: [...] 4-27 capsule,del 00:00: ayed 00 release Levemir 1-0 No 30(3 FlexTouch 4-27 mL) U-100 00:00: Insulin 100 00 unit/mL (3 mL) subcutaneou s pen Levemir 1-0 No 10(3 FlexTouch 4-27 mL) U-100 00:00: [...] unit/mL (3 mL) subcutaneou s pen Levemir 1-0 No 10(3 FlexTouch 4-27 mL) U-100 00:00: Insulin 100 00 unit/mL (3 mL) subcutaneou s pen citalopram 2020-0 No 1mg 40 mg 4-27 tablet 00:00: 00 fenofibrate 2020-0 No 1mg nanocrystal 4-27 lized 145 00:00: mg tablet 00 ondansetron 2020-0 No 1mg 8 mg 4-27 disintegrat 00:00: ing tablet 00 omeprazole 2020-0 No 1mg 40 mg 4-27 capsule,del 00:00: ayed 00 release omeprazole 2020-0 No 1mg 10 mg 4-27 capsule,del 00:00: ayed 00 release Flagyl 500 1-0 No 1mg mg tablet 3- 00:00: 00 Flagyl 500 2020-0 No 1mg mg tablet 3- 00:00: 00 Flagyl 500 2020-0 No 1mg [...] 40 mg 2-29 tablet 00:00: 00 carvedilol 2020-1 No 1mg 12.5 mg 2-29 tablet 00:00: 00 glimepiride 2019-1 No 1mg 4 mg tablet 2-29 00:00: 00 methocarbam 2020-1 No 1mg ol 750 mg 2-29 tablet [...] 10 mg 2-29 tablet 00:00: 00 citalopram 2019- No 1mg 40 mg 2-29 tablet 00:00: 00 carvedilol 2019-07 No 1mg 12.5 mg 2-29 tablet 00:00: 00 glimepiride 2019-07 No 1mg 4 mg tablet 2-29 00:00: 00 methocarbam 2019-07 No 1mg ol 750 mg 2-29 tablet 00:00: 00 doxepin 6 2019-07 No 1mg mg tablet 2-29 00:00: 00 atorvastati 2019-07 No 1mg n 40 mg 2-29 tablet 00:00: 00 omeprazole 2019-07 No 1mg 40 mg 2-29 capsule,del 00:00: ayed 00 release Levemir 2019-07 No (3 mL) FlexTouch 2-29 U-100 00:00: Insulin 100 00 unit/mL (3 mL) subcutaneou s pen fenofibrate 2019-07 No 1mg nanocrystal 2-29 lized 145 00:00: mg tablet 00 hydrochloro 2019-07 No 1mg thiazide 25 2-29 mg tablet 00:00: 00 amlodipine 2019-07 No 1mg 10 mg 2-29 tablet 00:00: 00 citalopram 2019-07 No 1mg 40 mg 2-29 tablet 00:00: 00 carvedilol 2019-07 No 1mg 12.5 mg 2-29 tablet 00:00: 00 glimepiride 2019-07 No 1mg 4 mg tablet 2-29 00:00: 00 methocarbam 2019-07 No 1mg ol 750 mg 2-29 tablet 00:00: 00 doxepin 6 2019-07 No 1mg mg tablet 2-29 00:00: 00 atorvastati 2019- No 1mg n 40 mg 2-29 tablet 00:00: 00 omeprazole 2019-07 No 1mg 40 mg 2-29 capsule,del 00:00: ayed 00 release ketorolac 2019-07 No 1mg 10 mg 2-15 tablet 00:00: 00 gabapentin 2019-07 No 1mg 400 mg 2-15 capsule 00:00: 00 ketorolac 2019- No 1mg 10 mg 2-15 tablet 00:00: 00 gabapentin 2019-07 No 1mg 400 mg 2-15 capsule 00:00: 00 ketorolac 2019- No 1mg 10 mg 2-15 tablet 00:00: 00 gabapentin 2019-07 No 1mg 400 mg 2-15 capsule 00:00: 00 doxepin 6 2019-07 No 1mg mg tablet 2- 00:00: 00 doxepin 6 2019-07 No 1mg mg tablet 2- 00:00: 00 doxepin 6 2019-07 No 1mg mg tablet 2- 00:00: 00 fenofibrate 2019-07 No 1mg nanocrystal [...] glimepiride 2019-07 No 1mg 4 mg tablet -03 00:00: 00 methocarbam 2019-07 No 1mg ol 750 mg 1-03 tablet 00:00: 00 doxepin 6 2019-07 No 1mg mg tablet -03 00:00: 00 atorvastati 2019-07 No 1mg n 40 mg 1-03 tablet 00:00: 00 omeprazole 2019-07 No 1mg 40 mg 1-03 capsule,del 00:00: ayed 00 release Levemir 2019-07 No (3 mL) FlexTouch 1-03 U-100 00:00: Insulin 100 00 unit/mL (3 mL) subcutaneou s pen citalopram 2019- No 1mg 40 mg 1-03 tablet 00:00: 00 amlodipine 2019-1 No 1mg 10 mg 1-03 tablet 00:00: 00 hydrochloro 2019-1 No 1mg thiazide 25 1-03 mg tablet 00:00: 00 metformin 2019- No 2mg ER 750 mg 1-03 tablet,exte 00:00: nded 00 release 24 hr carvedilol 2019- No 1mg 12.5 mg 1-03 tablet 00:00: 00 glimepiride 2019- No 1mg 4 mg tablet 03 00:00: 00 methocarbam 2019- No 1mg ol 750 mg 1-03 tablet 00:00: 00 doxepin 6 2019- No 1mg mg tablet 07-06 00:00: 00 atorvastati 2019- No 1mg n 40 mg 1-03 tablet 00:00: 00 omeprazole 2019- No 1mg 40 mg 1-03 capsule,del 00:00: ayed 00 release Levemir 2019- No (3 mL) FlexTouch 1-03 U-100 00:00: Insulin 100 00 unit/mL (3 mL) subcutaneou s pen citalopram 2019- No 1mg 40 mg 1-03 tablet 00:00: 00 amlodipine 2019-1 No 1mg 10 mg 1-03 tablet 00:00: 00 hydrochloro 2019-1 No 1mg thiazide 25 1-03 mg tablet 00:00: 00 metformin 2019- No 2mg ER 750 mg 1-03 tablet,exte 00:00: nded 00 release 24 hr carvedilol 2019- No 1mg 12.5 mg 1-03 tablet 00:00: 00 glimepiride 2019-1 No 1mg 4 mg tablet 03 00:00: 00 methocarbam 2019-1 No 1mg ol 750 mg 1-03 tablet 00:00: 00 doxepin 6 2019- No 1mg mg tablet 03 00:00: 00 atorvastati 2019-1 No 1mg n 40 mg 1-03 tablet 00:00: 00 omeprazole 2019-1 No 1mg 40 mg 1-03 capsule,del 00:00: ayed 00 release carvedilol 2020-1 No 1mg 12.5 mg 0-22 tablet 00:00: 00 trazodone 2020-1 No 12mg 100 mg 0-22 tablet 00:00: 00 carvedilol 2020-1 No 1mg 12.5 mg 0-22 tablet 00:00: 00 trazodone 2020-1 No 12mg 100 mg 0-22 tablet 00:00: 00 carvedilol 2020-1 No 1mg 12.5 mg 0-22 tablet 00:00: 00 trazodone 2020-1 No 12mg 100 mg 0-22 tablet 00:00: [...] glimepiride 2020-0 No 1mg 4 mg tablet 02-25 00:00: 00 methocarbam 2020-0 No 1mg ol [...] glimepiride 2020-0 No 1mg 4 mg tablet 8 00:00: 00 methocarbam 2020-0 No 1mg ol [...] 1mg 10 mg 2-26 tablet 00:00: 00 Levemir 2020-0 No (3 mL) FlexTouch 2-26 [...] 1mg 12.5 mg 2-26 tablet 00:00: 00 hydrochloro 2020-0 No 1mg thiazide 25 2-26 mg tablet 00:00: 00 mirtazapine 2020-0 No mg 30 mg 2-26 tablet 00:00: 00 atorvastati 2020-0 No 1mg n 40 mg 2-26 tablet 00:00: 00 omeprazole 2020-0 No 1mg 40 mg 2-26 capsule,del 00:00: ayed 00 release glimepiride 2020-0 No 1mg 4 mg tablet [...] No 1mg mg tablet 2-07 00:00: 00 Flagyl 500 2020-0 No 1mg mg tablet 2-07 00:00: 00 Flagyl 500 2020-0 No 1mg mg tablet 2-07 00:00: 00 Levemir 2020-0 No (3 mL) FlexTouch 1-29 U-100 00:00: Insulin 100 00 unit/mL (3 mL) subcutaneou s pen Levemir 2020-0 No (3 mL) FlexTouch -29 U-100 00:00: Insulin 100 00 unit/mL (3 mL) subcutaneou s pen citalopram 2020-0 No 1mg 20 mg -29 tablet 00:00: 00 glimepiride 2020-0 No 1mg 4 mg tablet 08-01 00:00: 00 Levemir 2020-0 No (3 mL) FlexTouch -29 U-100 00:00: Insulin 100 00 unit/mL (3 mL) subcutaneou s pen Levemir 2020-0 No (3 mL) FlexTouch -29 U-100 00:00: Insulin 100 00 unit/mL (3 mL) subcutaneou s pen citalopram 2020-0 No 1mg 20 mg 08-01 tablet 00:00: 00 glimepiride 2020-0 No 1mg 4 mg tablet 08-01 00:00: 00 Levemir 2020-0 No (3 mL) FlexTouch - U-100 00:00: Insulin 100 00 unit/mL (3 mL) subcutaneou s pen Levemir 2020-0 No (3 mL) FlexTouch - U-100 00:00: Insulin 100 00 unit/mL (3 mL) subcutaneou s pen citalopram 2020-0 No 1mg 20 mg 08-01 tablet 00:00: 00 glimepiride 2020-0 No 1mg 4 mg tablet 08-01 00:00: [...] 00:00: nded 00 release 24 hr amlodipine 2019-1 No 1mg 10 mg 2-10 tablet 00:00: 00 glimepiride 2018-1 No 1mg 4 mg tablet 2-10 00:00: [...] release amlodipine 2018-1 No 1mg 10 mg 2-10 tablet 00:00: 00 glimepiride 2018-1 No 1mg 4 mg tablet 2-10 00:00: [...] release amlodipine 2018-1 No 1mg 10 mg 2-10 tablet 00:00: 00 glimepiride 2018-1 No 1mg 4 mg tablet 2-10 00:00: 00 metformin 2018-1 No 1mg ER 500 mg 2-10 tablet,exte 00:00: nded 00 release 24 hr carvedilol 2018-1 No 1mg 12.5 mg 2-10 tablet 00:00: 00 metformin 2019-1 No 15mg ER 500 mg 2-10 tablet,exte 00:00: nded 00 release 24 hr mirtazapine 2018-1 No mg 30 mg 2-10 tablet 00:00: 00 atorvastati 2018-07 No 1mg n 40 mg 2-10 tablet 00:00: 00 omeprazole 2018-07 No 1mg 40 mg 2-10 capsule,del 00:00: ayed 00 release acetaminoph 2018-07 Yes [id number] 1{tbl} Take 1 [facility] en-codeine 0-13 tablet by ity of (TYLENOL-CO 00:00: mouth [place] DEINE #3) 00 every 4 Medical 300-30 mg (four) Branch tablet hours as needed for Pain (scale 1-3). acetaminoph 2018-07 Yes [id number] 1{tbl} Take 1 [facility] en-codeine 0-13 tablet by ity of (TYLENOL-CO 00:00: mouth [place] DEINE #3) 00 every 4 Medical 300-30 mg (four) Branch tablet hours as needed for Pain (scale 1-3). acetaminoph 2018-07 Yes [id number] 1{tbl} Take 1 [facility] en-codeine 0-13 tablet by ity of (TYLENOL-CO 00:00: mouth [place] DEINE #3) 00 every 4 Medical 300-30 mg (four) Branch tablet hours as needed for Pain (scale 1-3). acetaminoph 2018-07 Yes [id number] 1{tbl} Take 1 [facility] en-codeine 0-13 tablet by ity of (TYLENOL-CO 00:00: mouth [place] DEINE #3) 00 every 4 Medical 300-30 mg (four) Branch tablet hours as needed for Pain (scale 1-3). acetaminoph 2018-07 Yes [id number] 1{tbl} Take 1 [facility] en-codeine 0-13 tablet by ity of (TYLENOL-CO 00:00: mouth [place] DEINE #3) 00 every 4 Medical 300-30 mg (four) Branch tablet hours as needed for Pain (scale 1-3). amlodipine 2018-07 No 1mg 10 mg 0-01 tablet 00:00: 00 glimepiride 2018-07 No 1mg 1 mg tablet 0-01 00:00: 00 carvedilol 2018-07 No 1mg 12.5 mg 0-01 tablet 00:00: 00 mirtazapine 2018-07 No mg 30 mg 0-01 tablet 00:00: 00 amlodipine 2019-1 No 1mg 10 mg 0-01 tablet 00:00: 00 glimepiride 2019-1 No 1mg 1 mg tablet 0 00:00: 00 carvedilol 2019-1 No 1mg 12.5 mg 0-01 tablet 00:00: 00 mirtazapine 2019-1 No mg 30 mg 0-01 tablet 00:00: 00 amlodipine 2019-1 No 1mg 10 mg 0-01 tablet 00:00: 00 glimepiride 2019-1 No 1mg 1 mg tablet 0 00:00: 00 carvedilol 2019-1 No 1mg 12.5 mg 0-01 tablet 00:00: 00 mirtazapine 2019-1 No mg 30 mg 0-01 tablet 00:00: 00 potassium 2019-0 No 1% (40 gluconate 6-19 mg/mL) 550 mg (90 00:00: mg) tablet 00 potassium 2019-0 No 1% (40 gluconate 6-19 mg/mL) 550 mg (90 00:00: mg) tablet 00 potassium 2019-0 No 1% (40 gluconate 6-19 mg/mL) 550 mg (90 00:00: mg) tablet 00 mirtazapine 2019-0 No mg 30 mg 6-18 tablet 00:00: 00 mirtazapine 2019-0 No mg 30 mg 6-18 tablet 00:00: 00 mirtazapine 2019-0 No mg 30 mg 6-18 tablet 00:00: 00 ranitidine 2019-0 Yes 150mg Q.5D Take 150 [...] 15:47: Medical mg) Tab 46 Center ranitidine 2019-0 Yes 150mg Q.5D Take [address] [facility] [address] [facility] (ZANTAC) 6-10 mg [facility] MG 15:47: mouth 2 Medical tablet 46 (two) Center times daily. omeprazole 2018-0 Yes 40mg QD Take [address] (PRILOSEC) 6-10 by mouth [facility] 40 MG 15:47: daily. Medical capsule 46 Center potassium 2019-0 Yes Take by [facility]10 [facility] mg (90 15:47: Medical mg) Tab 46 Center ranitidine 2019-0 Yes 150mg Q.5D Take 150 [...] 15:47: Medical mg) Tab 46 Center carvedilol 2018-0 Yes hypertensio 12.5mg Take [address] [facility] (COREG) 6-10 n tablet [facility] 12.5 MG 00:00: (12.5 mg Medica l tablet 00 total) by Center mouth 2 (two) times daily with breakfast and dinner. amLODIPine 2019-0 Yes 10mg QD Take 1 [facility] (NORVASC[facility] 6-10 tablet (10 [facility] 10 MG 00:00: mg total) Medical tablet 00 by mouth Center daily. glimepiride 2019-0 Yes 1mg Take 1 [facility] [...] Medical tablet 00 by mouth Center daily. glimepiride 2019-0 Yes 1mg Take 1 [facility] [...] (two) times daily with breakfast and dinner. carvedilol 2019-0 Yes hypertensio 12.5mg Take [address] [facility] (COREG) 6-10 n tablet [facility] 12.5 MG 00:00: (12.5 mg Medica l tablet 00 total) by Center mouth 2 (two) times daily with breakfast and dinner. amLODIPine 2019-0 Yes 10mg QD Take 1 [facility] (NORVASC) 6-10 tablet (10 [facility] 10 MG 00:00: mg total) Medical tablet 00 by mouth Center daily. glimepiride 2019-0 Yes 1mg Take 1 [facility] [...] Medical tablet 00 by mouth Center daily. amLODIPine 2019-0 Yes 10mg QD Take 1 [facility] (NORVASC[facility] 6-10 tablet (10 [facility] 10 MG 00:00: mg total) Medical tablet 00 by mouth Center daily. glimepiride 2019-0 Yes 1mg Take [address] [facility] (AMARYL) 1 6-10 tablet (1 [facility] MG tablet 00:00: mg total) Med ical 00 by mouth Center every morning before breakfast. atorvastati 2019-0 Yes 40mg QD Take 1 [...] (two) times daily with breakfast and dinner. carvedilol 2019-0 Yes hypertensio 12.5mg Take [address] [facility] (COREG) 6-10 n tablet [facility] 12.5 MG 00:00: (12.5 mg Medica l tablet 00 total) by Center mouth 2 (two) times daily with breakfast and dinner. amLODIPine 2019-0 Yes 10mg QD Take 1 [facility] (NORVASC[facility] 6-10 tablet (10 [facility] 10 MG 00:00: mg total) Medical tablet 00 by mouth Center daily. glimepiride 2019-0 Yes 1mg Take [address] [facility] (AMARYL) 1 6-10 tablet (1 [facility] MG tablet 00:00: mg total) Med ical 00 by mouth Center every morning before breakfast. amLODIPine 2019-0 Yes 10mg QD Take 1 [facility] (NORVASC) 6-10 tablet (10 [facility] 10 MG 00:00: mg total) Medical tablet 00 by mouth Center daily. carvedilol 2019-0 Yes hypertensio 12.5mg Take [address] [facility] (COREG) 6-10 n tablet [facility] 12.5 MG 00:00: (12.5 mg Medica l tablet 00 total) by Center mouth 2 (two) times daily with breakfast and dinner. atorvastati 2019-0 Yes 40mg QD Take [address] [facility] (LIPITOR) 6-10 tablet (40 Carmen kes 40 MG 00:00: mg total) Medical tablet 00 by mouth Center nightly. amLODIPine 2019-0 Yes 10mg QD Take 1 [facility] (NORVASC[facility] 6-10 tablet (10 [facility] 10 MG 00:00: mg total) Medical tablet 00 by mouth Center daily. glimepiride 2019-0 Yes 1mg Take [address] [facility] (AMARYL) 1 6-10 tablet (1 [facility] MG tablet 00:00: mg total) Med ical 00 by mouth Center every morning before breakfast. glimepiride 2019-0 Yes 1mg Take 1 [facility] [...] (two) times daily with breakfast and dinner. carvedilol 2019- Yes hypertensio 12.5mg Take [address] [facility] (COREG) 6-10 n tablet [facility] 12.5 MG 00:00: (12.5 mg Medica l tablet 00 total) by Center mouth 2 (two) times daily with breakfast and dinner. amLODIPine 2019- Yes 10mg QD Take 1 [facility] (NORVASC) 6-10 tablet (10 [facility] 10 MG 00:00: mg total) Medical tablet 00 by mouth Center daily. glimepiride 2019-0 Yes 1mg Take [address] [facility] (AMARYL) 1 6-10 tablet (1 [facility] MG tablet 00:00: mg total) Med ical 00 by mouth Center every morning before breakfast. amLODIPine 2019-0 Yes 10mg QD Take 1 [...] by mouth Center every morning before breakfast. atorvastati 2021- No 40mg QD Take [address] [facility] (LIPITOR) 6-10 11-28 tablet (40 [facility] 40 MG 00:00: 00:00 mg total) Medica l tablet 00 :00 by mouth Center nightly. atorvastati 2021- No 40mg QD Take [address] [facility] (LIPITOR) 6-10 11-28 tablet (40 [facility] 40 MG 00:00: 00:00 mg total) Medica l tablet 00 :00 by mouth Center nightly. atorvastati 2021- No 40mg QD Take [address] [facility] (LIPITOR) 6-10 11-28 tablet (40 [facility] 40 MG 00:00: 00:00 mg total) Medica l tablet 00 :00 by mouth Center nightly. atorvastati 2021- No 40mg QD Take [address] [facility] (LIPITOR) 6-10 11-28 tablet (40 [facility] 40 MG 00:00: 00:00 mg total) Medica l tablet 00 :00 by mouth Center nightly. atorvastati 2021- No 40mg QD Take [address] [facility] (LIPITOR) 6- 11-28 tablet (40 [facility] 40 MG 00:00: 00:00 mg total) Medica l tablet 00 :00 by mouth Center nightly. atorvastati 2021- No 40mg QD Take [address] [facility] (LIPITOR) 6-10 -28 tablet (40 L [facility] 40 MG 00:00: 00:00 mg total) Medica l tablet 00 :00 by mouth Center nightly. atorvastati 2021- No 40mg QD Take [address] [facility] (LIPITOR) 6-04 13-28 tablet (40 [facility] 40 MG 00:00: 00:00 mg total) Medica l tablet 00 :00 by mouth Center nightly. ondansetron 2019-0 No 1mg HCl 4 mg 4-01 tablet 00:00: 00 ondansetron 2019-0 No 1mg HCl 4 mg 4-01 tablet 00:00: 00 ondansetron 2019-0 No 1mg HCl 4 mg 4-01 tablet 00:00: 00 amlodipine 2019-0 No 1mg 10 mg 3-21 tablet 00:00: 00 hydrochloro 2019-0 No 1mg thiazide 3-21 12.5 mg 00:00: tablet 00 glimepiride 2018-0 No 1mg 1 mg tablet 3-21 00:00: [...] 1mg 20 mg 8-09 tablet 00:00: 00 pantoprazol 2018-0 No 1mg e 40 mg 8- tablet,idalmis 00:00: yed release 00 carvedilol 2018-0 [...] 8-07 hr daily 00:00: transdermal 00 patch pantoprazol [...] mg 8- tablet,idalmis 00:00: yed release 00 carvedilol 2018-0 No 1mg 12.5 mg 8-07 tablet 00:00: 00 amlodipine 2018-0 No 1mg 5 mg tablet 02-07 00:00: 00 amlodipine 2018-0 No 1mg 5 mg tablet 02-07 00:00: 00 carvedilol 2018-0 No 1mg 12.5 mg 8-07 tablet 00:00: 00 nicotine 21 2018-0 No 1mg/24 mg/24 hr 02-07 hr daily 00:00: transdermal 00 patch nicotine 21 2018-0 No 1mg/24 mg/24 hr 02-07 hr daily 00:00: transdermal 00 patch pantoprazol [...] nicotine 21 2018-0 No 1mg/24 mg/24 hr 02-07 hr daily 00:00: transdermal 00 patch nicotine 21 2018-0 No 1mg/24 mg/24 hr 02-07 hr daily 00:00: transdermal 00 patch pantoprazol 2018-0 No 1mg e 40 mg 02-07 tablet,idalmis 00:00: yed release 00 glimepiride 2018-0 No 1mg 1 mg tablet 02-07 00:00: 00 Aspirin Low 2018-0 No 1mg Dose 81 mg 8-07 tablet,idalmis 00:00: yed release 00 glimepiride 2018-0 No 1mg 1 mg tablet 8-07 00:00: 00 Metformin Metformin 2018-0 Yes Nancy 1 tablet Common HCl HCl 4-27 [facility] with [facility] 00:00: meal - [facility] 00 [facility] prednisone 2017-0 No 1mg 20 mg 5-11 [...] ne 25 mcg 3-24 tablet 00:00: 00 clonidine 2017-0 No [...] 20 mg 2-14 tablet 00:00: 00 simvastatin 2016-0 No 1mg 20 mg 2-14 tablet 00:00: 00 levothyroxi 2016-0 No 1mcg ne 25 mcg 2-14 tablet 00:00: 00 hydrochloro 2016-0 No 1mg thiazide 2-14 12.5 mg 00:00: tablet 00 doxazosin 1 0 No 1mg mg tablet 2-14 00:00: 00 metformin 0 No 1mg 1,000 mg 2-14 tablet 00:00: 00 carvedilol 0 No 1mg 6.25 mg 2-14 tablet 00:00: 00 lisinopril 2016-0 No 1mg 20 mg 2-14 tablet 00:00: 00 simvastatin 0 No 1mg 20 mg 2-14 tablet 00:00: 00 levothyroxi 0 No 1mcg ne 25 mcg 2-14 tablet 00:00: 00 ERGOCALCIFE 2015-07 Yes Take by Uni vers ROL, 2-27 mouth. ity of VITAMIN D2, 15:40: [place] (VITAMIN D [address] [place] [address]) [facility] POTASSIUM 2015-07 Yes Take by Unive rs ORAL 2-27 mouth. ity of 15:40: [address] SIMVASTATIN 2015-07 Yes Take by Uni vers ORAL 2-27 mouth. ity of 15:40: [address] doxazosin 1 2015-07 Yes 1mg Take 1 mg U nivers mg tablet 2- by mouth ity of 15:40: daily. [address] METFORMIN 2015-07 Yes Take by Unive rs HCL 2-27 mouth. ity of (METFORMIN 15:40: [address] ERGOCALCIFE 2015-07 Yes Take by Uni vers ROL, 2-27 mouth. ity of VITAMIN D2, 15:40: [place] (VITAMIN D [address] [place] [address]) [place] POTASSIUM 2015-07 Yes Take by Unive rs ORAL 2-27 mouth. ity of 15:40: [address] SIMVASTATIN 2015-07 Yes Take by Uni vers ORAL 2-27 mouth. ity of 15:40: [address] doxazosin 1 2015-07 Yes 1mg Take 1 mg U nivers mg tablet 2-27 by mouth ity of 15:40: daily. [address] METFORMIN 2015-07 Yes Take by Unive rs HCL 2-27 mouth. ity of (METFORMIN 15:40: [place] ORAL) [address] [place] [address] ERGOCALCIFE 2015-07 Yes Take by Uni vers ROL, 2-27 mouth. ity of VITAMIN D2, 15:40: [place] (VITAMIN D 10 Medical [place]) [facility] POTASSIUM 2015-07 Yes Take by Unive rs ORAL 2-27 mouth. ity of 15:40: [address] SIMVASTATIN 2015-07 Yes Take by Uni vers ORAL 2-27 mouth. ity of 15:40: [address] doxazosin 1 2015-07 Yes 1mg Take 1 mg U nivers mg tablet 2-27 by mouth ity of 15:40: daily. [address] METFORMIN 2015-07 Yes Take by Unive rs HCL 2-27 mouth. ity of (METFORMIN 15:40: [place] ORAL) [address] [place] [address] ERGOCALCIFE 2015-07 Yes Take by Uni vers ROL, 2-27 mouth. ity of VITAMIN D2, 15:40: [place] (VITAMIN D Medical [place]) [facility] POTASSIUM 2015-07 Yes Take by Unive rs ORAL 2-27 mouth. ity of 15:40: [address] SIMVASTATIN 2015-07 Yes Take by Uni vers ORAL 2-27 mouth. ity of 15:40: [address] doxazosin 1 2015-07 Yes 1mg Take 1 mg U nivers mg tablet 2-27 by mouth ity of 15:40: daily. [address] METFORMIN 2015-07 Yes Take by Unive rs HCL 2-27 mouth. ity of (METFORMIN 15:40: [place] ORAL) [address] [place] [address] ERGOCALCIFE 2015-07 Yes Take by Uni vers ROL, 2-27 mouth. ity of VITAMIN D2, 15:40: [place] (VITAMIN D 10 Medical [place]) [place] POTASSIUM 2015-07 Yes Take by Unive rs ORAL 2-27 mouth. ity of 15:40: [address] SIMVASTATIN 2015-07 Yes Take by Uni vers ORAL 2-27 mouth. ity of 15:40: [address] doxazosin 1 2015-07 Yes 1mg Take 1 mg U nivers mg tablet 2-27 by mouth ity of 15:40: daily. [address] METFORMIN 2015-07 Yes Take by Unive rs HCL 2-27 mouth. ity of (METFORMIN 15:40: [place] ORAL) 10 Medical Branch diclofenac 2016-1 No 1mg sodium 75 2-21 mg 00:00: tablet,idalmis 00 yed release diclofenac 2015-1 No 1mg sodium 75 2-21 mg 00:00: tablet,idalmis 00 yed release diclofenac 2016-1 No 1mg sodium 75 2-21 mg 00:00: tablet,idalmis 00 yed release hydrochloro 2016-0 No 1mg thiazide 9-20 12.5 mg 00:00: tablet 00 doxazosin 1 2016-0 No 1mg mg tablet 03-23 00:00: 00 metformin 2016-0 No 1mg 1,000 [...] doxazosin 1 2016-0 No 1mg mg tablet 03-23 00:00: 00 metformin 2016-0 No 1mg 1,000 [...] doxazosin 1 2016-0 No 1mg mg tablet 03-23 00:00: 00 metformin 2016-0 No 1mg 1,000 [...] doxazosin 2 2016-0 No 1mg mg tablet 11-23 00:00: 00 levothyroxi 2016-0 No 1mcg ne [...] 1mg 20 mg 1-14 tablet 00:00: 00 proMETHazin 2014-0 Yes 25mg Take 1 Tab Univers e 8-10 by mouth ity of (PHENERGAN) 00:00: every 6 [place] as 25 mg 00 (six) Medical tablet hours as Branch needed for Nausea and Vomiting (N/V). Loperamide 2014-0 Yes 2mg Take 1 Tab U nivers HCl 8-10 by mouth 4 ity of (IMODIUM 00:00: (four) [place] A-D) 2 mg 00 times Medical Tab tablet daily. Branch proMETHazin 2014-0 Yes 25mg Take 1 Tab Univers e 8-10 by mouth ity of (PHENERGAN) 00:00: every 6 [place] as 25 mg 00 (six) Medical tablet hours as Branch needed for Nausea and Vomiting (N/V). Loperamide 2014-0 Yes 2mg Take 1 Tab U nivers HCl 8-10 by mouth 4 ity of (IMODIUM 00:00: (four) [place] A-D) 2 mg 00 times Medical Tab tablet daily. Branch proMETHazin 2015-0 Yes 25mg Take 1 Tab Univers e 8-10 by mouth ity of (PHENERGAN) 00:00: every 6 [place] as 25 mg 00 (six) Medical tablet hours as Branch needed for Nausea and Vomiting (N/V). Loperamide 2014-0 Yes 2mg Take 1 Tab U nivers HCl 8-10 by mouth 4 ity of (IMODIUM 00:00: (four) [place] A-D) 2 mg 00 times Medical Tab tablet daily. Branch proMETHazin 2014-0 Yes 25mg Take 1 Tab Univers e 8-10 by mouth ity of (PHENERGAN) 00:00: every 6 [place] as 25 mg 00 (six) Medical tablet hours as Branch needed for Nausea and Vomiting (N/V). Loperamide 2014-0 Yes 2mg Take 1 Tab U nivers HCl 8-10 by mouth 4 ity of (IMODIUM 00:00: (four) [place] A-D) 2 mg 00 times Medical Tab tablet daily. Branch proMETHazin 2014-0 Yes 25mg Take 1 Tab Univers e 8-10 by mouth ity of (PHENERGAN) 00:00: every 6 [place] as 25 mg 00 (six) Medical tablet hours as Branch needed for Nausea and Vomiting (N/V). Loperamide 2014-0 Yes 2mg Take 1 Tab U nivers HCl 8-10 by mouth 4 ity of (IMODIUM 00:00: (four) [place] A-D) 2 mg 00 times Medical Tab tablet daily. Branch Pneumovax No Notes: Memori a 23 5-01 (Same as: l 17:21: Pneumovax [place] ) Refrigerat e Pneumovax No Notes: Memori a 23 5-01 (Same as: l 17:21: Pneumovax [place] ) Refrigerat e Pneumovax No Notes: Memori a 23 5-01 (Same as: l 17:21: Pneumovax [place] ) Refrigerat e Pneumovax 0 No Notes: Memori a 23 5-01 (Same as: l 17:21: Pneumovax [place] ) Refrigerat e Pneumovax 2014- No Notes: Memori a 23 5-01 (Same as: l 17:21: Pneumovax [place] ) Refrigerat e Pneumovax No Notes: Memori a 23 5-01 (Same as: l 17:21: Pneumovax [place] ) Refrigerat e Pneumovax No Notes: Memori a 23 5-01 (Same as: l 17:21: Pneumovax [place] ) Refrigerat e Pneumovax No Notes: Memori a 11-01 (Same as: l 17:21: Pneumovax [place] ) Refrigerat e Pneumovax No Notes: Memori a 11-01 (Same as: l 17:21: Pneumovax [place] ) Refrigerat e Pneumovax No Notes: Memori a 11-01 (Same as: l 17:21: Pneumovax [place] ) Refrigerat e Pneumovax No Notes: Memori a 11-01 (Same as: l 17:21: Pneumovax [place] ) Refrigerat e tramadol Yes 100.4 F, Abad charlene hydrochlori 5- X 4 day, # l de 50 MG 15:11: 30 tab, 0 [facility] debbie Oral Tablet 00 Refill(s) [Ultram] tramadol Yes 100.4 F, Abad charlene hydrochlori 5- X 4 day, # l de 50 [...] thiazide 4-30 (Same as: l 14:00: Microzide) [place] 00 With food. pneumococca Yes Notes: Abad [...] ia 4-30 (Same as: l 14:00: Prinivil, [place] 00 Zestril) Hydrochloro No Notes: Abad charlene thiazide 4-30 (Same as: l 14:00: Microzide) [place] With food. pneumococca Yes Notes: Abad charlene [...] ia 4-30 (Same as: l 14:00: Prinivil, [place] 00 Zestril) Hydrochloro No Notes: Abad charlene thiazide 4-30 (Same as: l 14:00: Microzide) [place] With food. pneumococca Yes Notes: Abad charlene l capsular 4-30 (Same as: l polysacchar 14:00: Pneumovax H ermann ricky type 1 23) vaccine / Refrigerat pneumococca e l [...] 14:00: Pneumovax H ermann ricky type 1 23) vaccine / Refrigerat pneumococca e l [...] 14:00: Pneumovax H ermann ricky type 1 23) vaccine / Refrigerat pneumococca e l capsular polysacchar ricky type 10A vaccine / pneumococca l capsular polysacchar ricky type 11A vaccine / pneumococca l capsular polysacchar ricky type 12F vaccine / pneumococca l capsular polysacchar Lisinopril No Notes: Memor ia 4-30 (Same as: l 14:00: Pr[place]ivil, [place] 00 Zestril) Hydrochloro No Notes: Abad charlene thiazide 4-30 (Same as: l 14:00: Microzide) [place] 00 With food. pneumococca Yes Notes: Abad charlene l capsular 4-30 (Same as: l polysacchar 14:00: Pneumovax H ermann ricky type 1 23) vaccine / Refrigerat pneumococca e l capsular polysacchar ricky type 10A vaccine / pneumococca l capsular polysacchar ricky type 11A vaccine / pneumococca l capsular polysacchar ricky type 12F vaccine / pneumococca l capsular polysacchar Lisinopril No Notes: Memor ia 4-30 (Same as: l 14:00: Pr[place]ivil, [place] 00 Zestril) Hydrochloro No Notes: Abad charlene thiazide 4-30 (Same as: l 14:00: Microzide) [place] With food. pneumococca Yes Notes: Abad charlene [...] thiazide 4-30 (Same as: l 14:00: Microzide) [place] With food. pneumococca Yes Notes: Abad charlene [...] ia 4-30 (Same as: l 14:00: Pr[place]ivil, [place] 00 Zestril) Hydrochloro No Notes: Abad charlene [...] ia 4-29 Give with l 22:00: food. [place] 00 (Same As: Coreg) carvedilol No Notes: Memor ia 4-29 Give with l 22:00: food. [place] 00 (Same As: Coreg) carvedilol No Notes: Memor ia 4-29 Give with l 22:00: food. [place] 00 (Same As: Coreg) carvedilol No Notes: Memor ia 4-29 Give with l 22:00: food. [place] 00 (Same As: Coreg) carvedilol No Notes: Memor ia 4-29 Give with l 22:00: food. [place] 00 (Same As: Coreg) carvedilol No Notes: Memor ia 4-29 Give with l 22:00: food. [place] (Same As: Coreg) carvedilol No Notes: Memor ia 4-29 Give with l 22:00: food. [place] 00 (Same As: Coreg) carvedilol No Notes: Memor ia 4-29 Give with l 22:00: food. [place] 00 (Same As: Coreg) carvedilol No Notes: Memor ia 4-29 Give with l 22:00: food. [place] 00 (Same As: Coreg) carvedilol No Notes: Memor ia 4-29 Give with l 22:00: food. [place] 00 (Same As: Coreg) K-Dur 20 No Notes: Memoria 4-29 (Same as: l 15:30: K-Dur 20) [place] 00 "Do Not Crush" With food and full glass of water K-Dur 20 No Notes: [facility]oria 4-29 (Same as: l 15:30: K-Dur 20) [place] 00 "Do Not Crush" With food and full glass of water K-Dur 20 No Notes: [facility]oria 4-29 (Same as: l 15:30: K-Dur 20) [place] 00 "Do Not Crush" With food and full glass of water K-Dur 20 No Notes: [facility]oria 4-29 (Same as: l 15:30: K-Dur 20) [place] 00 "Do Not Crush" With food and full glass of water K-Dur 20 No Notes: [facility]oria 4-29 (Same as: l 15:30: K-Dur 20) [place] 00 "Do Not Crush" With food and full glass of water K-Dur 20 No Notes: [facility]oria 4-29 (Same as: l 15:30: K-Dur 20) [place] 00 "Do Not Crush" With food and full glass of water K-Dur 20 No Notes: Memoria 4-29 (Same as: l 15:30: K-Dur 20) Tobias 00 "Do Not Crush" With food and full glass of water K-Dur 20 No Notes: Memoria 4-29 (Same as: l 15:30: K-Dur 20) Tobias 00 "Do Not Crush" With food and full glass of water K-Dur 20 No Notes: Memoria 4-29 (Same as: l 15:30: K-Dur 20) [place] 00 "Do Not Crush" With food and full glass of water K-Dur 20 No Notes: Memoria 4-29 (Same as: l 15:30: K-Dur 20) Tobias 00 "Do Not Crush" With food and full glass of water K-Dur 20 No Notes: Memoria 4-29 (Same as: l 15:30: K-Dur 20) Tobias 00 "Do Not Crush" With food and full glass of water Zofran No Notes: Memoria 4- (Same as: l 11:34: Zofran) Tobias 00 MEDICATION WASTE Product Size: 4 mg Product Wasted: ___ mg Zofran No Notes: Memoria 10-30 (Same as: l 11:34: Zofran) Tobias 00 MEDICATION WASTE Product Size: 4 mg Product Wasted: ___ mg Zofran No Notes: Memoria 10-30 (Same as: l 11:34: Zofran) Tobias 00 MEDICATION WASTE Product Size: 4 mg Product Wasted: ___ mg Zofran No Notes: Memoria 10-30 (Same as: l 11:34: Zofran) Tobias 00 MEDICATION WASTE Product Size: 4 mg Product Wasted: ___ mg Zofran No Notes: Memoria 10-30 (Same as: l 11:34: Zofran) Tobias 00 MEDICATION WASTE Product Size: 4 mg Product Wasted: ___ mg Zofran No Notes: Memoria 10-30 (Same as: l 11:34: Zofran) [place] 00 MEDICATION WASTE Product Size: 4 mg Product Wasted: ___ mg Zofran No Notes: Memoria 10-30 (Same as: l 11:34: Zofran) [place] 00 MEDICATION WASTE Product Size: 4 mg Product Wasted: ___ mg Zofran No Notes: Memoria 10-30 (Same as: l 11:34: Zofran) [place] 00 MEDICATION WASTE Product Size: 4 mg Product Wasted: ___ mg Zofran No Notes: [facility]oria 10-30 (Same as: l 11:34: Zofran) [place] 00 MEDICATION WASTE Product Size: 4 mg Product Wasted: ___ mg Zofran No Notes: [place]oria 10-30 (Same as: l 11:34: Zofran) [place] 00 MEDICATION WASTE Product Size: 4 mg Product Wasted: ___ mg Zofran No Notes: Memoria 10-30 (Same as: l 11:34: Zofran) [place] 00 MEDICATION WASTE Product Size: 4 mg Product Wasted: ___ mg Morphine No Notes: Memoria 10-30 (Same l 11:26: as:MORPhin [place] 00 e Sulfate) Morphine No Notes: [facility]oria 10-30 (Same l 11:26: as:MORPhin [place] 00 e Sulfate) Morphine No Notes: [facility]oria 10-30 (Same l 11:26: as:MORPhin [place] 00 e Sulfate) Morphine No Notes: Memoria 4-29 (Same l 11:26: as:MORPhin [place] 00 e Sulfate) Morphine No Notes: [facility]oria 4-29 (Same l 11:26: as:MORPhin [place] 00 e Sulfate) Morphine No Notes: [facility]oria 4-29 (Same l 11:26: as:MORPhin [place] 00 e Sulfate) Morphine No Notes: [facility]oria 4-29 (Same l 11:26: as:MORPhin [place] 00 e Sulfate) Morphine No Notes: [facility]oria 4-29 (Same l 11:26: as:MORPhin [place] 00 e Sulfate) Morphine No Notes: [facility]oria 4-29 (Same l 11:26: as:MORPhin [place] 00 e Sulfate) Morphine No Notes: [facility]oria 4-29 (Same l 11:26: as:MORPhin [place] 00 e Sulfate) Morphine No Notes: Memoria 4-29 (Same l 11:26: as:MORPhin [place] 00 e Sulfate) Dilaudid 0 No 1 mg, 1 Memori a 4-29 mL, Route: l 11:25: IVP, Drug [place] 00 form: INJ, Q6H, Dosing Weight 81.932, kg, PRN Pain Score 7-10, Priority: STAT, Start date: 10/30/14 6:25:00, Duration: 30 day, Stop date: 11/29/14 6:24:00 Dilaudid 2014-0 No 1 mg, 1 Memori a 4-29 mL, Route: l 11:25: IVP, Drug [place] 00 form: INJ, Q6H, Dosing Weight 81.932, kg, PRN Pain Score 7-10, Priority: STAT, Start date: 10/30/14 6:25:00, Duration: 30 day, Stop date: 11/29/14 6:24:00 Dilaudid 2014-0 No 1 mg, 1 Memori a 4-29 mL, Route: l 11:25: IVP, Drug [place] 00 form: INJ, Q6H, Dosing Weight 81.932, kg, PRN Pain Score 7-10, Priority: STAT, Start date: 10/30/14 6:25:00, Duration: 30 day, Stop date: 11/29/14 6:24:00 Dilaudid 2015-0 No 1 mg, 1 Memori a 4-29 mL, Route: l 11:25: IVP, Drug [place] 00 form: INJ, Q6H, Dosing Weight 81.932, kg, PRN Pain Score 7-10, Priority: STAT, Start date: 10/30/14 6:25:00, Duration: 30 day, Stop date: 11/29/14 6:24:00 Dilaudid 2015-0 No 1 mg, 1 Memori a 4-29 mL, Route: l 11:25: IVP, Drug [place] 00 form: INJ, Q6H, Dosing Weight 81.932, kg, PRN Pain Score 7-10, Priority: STAT, Start date: 10/30/14 6:25:00, Duration: 30 day, Stop date: 11/29/14 6:24:00 Dilaudid 2015-0 No 1 mg, 1 Memori a 4-29 mL, Route: l 11:25: IVP, Drug [place] 00 form: INJ, Q6H, Dosing Weight 81.932, kg, PRN Pain Score 7-10, Priority: STAT, Start date: 10/30/14 6:25:00, Duration: 30 day, Stop date: 11/29/14 6:24:00 Dilaudid 2015-0 No 1 mg, 1 Memori a 4-29 mL, Route: l 11:25: IVP, Drug [place] 00 form: INJ, Q6H, Dosing Weight 81.932, kg, PRN Pain Score 7-10, Priority: STAT, Start date: 10/30/14 6:25:00, Duration: 30 day, Stop date: 11/29/14 6:24:00 Dilaudid 2015-0 No 1 mg, 1 Memori a 4-29 mL, Route: l 11:25: IVP, Drug [place] 00 form: INJ, Q6H, Dosing Weight 81.932, kg, PRN Pain Score 7-10, Priority: STAT, Start date: 10/30/14 6:25:00, Duration: 30 day, Stop date: 11/29/14 6:24:00 Dilaudid 2015-0 No 1 mg, 1 Memori a 4-29 mL, Route: l 11:25: IVP, Drug [place] 00 form: INJ, Q6H, Dosing Weight 81.932, kg, PRN Pain Score 7-10, Priority: STAT, Start date: 10/30/14 6:25:00, Duration: 30 day, Stop date: 11/29/14 6:24:00 Dilaudid 2015-0 No 1 mg, 1 Memori a 4-29 mL, Route: l 11:25: IVP, Drug [place] 00 form: INJ, Q6H, Dosing Weight 81.932, kg, PRN Pain Score 7-10, Priority: STAT, Start date: 10/30/14 6:25:00, Duration: 30 day, Stop date: 11/29/14 6:24:00 Dilaudid 2015-0 No 1 mg, 1 Memori a 4-29 mL, Route: l 11:25: IVP, Drug [place] 00 form: INJ, Q6H, Dosing Weight 81.932, kg, PRN Pain Score 7-10, Priority: STAT, Start date: 10/30/14 6:25:00, Duration: 30 day, Stop date: 11/29/14 6:24:00 Labetalol 2014-0 No Notes: Memori a 4-29 (Same as: l 11:23: Normodyne, [place] 00 Trandate) Push over 2 minutes Give [...] a 4-29 (Same as: l 11:23: Normodyne, [place] 00 Trandate) Push over 2 minutes Give bolus over 2-3 minutes. normal 0 No 1,000 mL, Memori a saline 0.9% 4-29 Rate: 100 l IV 1,000 mL 11:23: ml/hr, Herm debbie 00 Infuse over: 10 hr, Route: IV, Dosing Weight 81.932 kg, Total Volume: 1,000, Start date: 10/30/14 6:23:00, Duration: 30 day, Stop date: 11/29/14 6:22:00 Labetalol 0 No Notes: Memori a 4-29 (Same as: l 11:23: Normodyne, [place] 00 Trandate) Push over 2 minutes Give bolus over 2-3 minutes. normal No 1,000 mL, Memori a saline 0.9% 4-29 Rate: 100 l IV 1,000 mL 11:23: ml/hr, Herm debbie 00 Infuse over: 10 hr, Route: IV, Dosing Weight 81.932 kg, Total Volume: 1,000, Start date: 10/30/14 6:23:00, Duration: 30 day, Stop date: 11/29/14 6:22:00 Labetalol 0 No Notes: Memori a 4-29 (Same as: l 11:23: Normodyne, [place] 00 Trandate) Push over 2 minutes Give bolus over 2-3 minutes. normal 2014- No 1,000 mL, Memori a saline 0.9% 4-29 Rate: 100 l IV 1,000 mL 11:23: ml/hr, Herm debbie 00 Infuse over: 10 hr, Route: IV, Dosing Weight 81.932 kg, Total Volume: 1,000, Start date: 10/30/14 6:23:00, Duration: 30 day, Stop date: 11/29/14 6:22:00 Labetalol 0 No Notes: Memori a 4-29 (Same as: l 11:23: Normodyne, [place] 00 Trandate) Push over 2 minutes Give bolus over 2-3 minutes. normal 2014-0 No 1,000 mL, Memori a saline 0.9% 4-29 Rate: 100 l IV 1,000 mL 11:23: ml/hr, Herm debbie 00 Infuse over: 10 hr, Route: IV, Dosing Weight 81.932 kg, Total Volume: 1,000, Start date: 10/30/14 6:23:00, Duration: 30 day, Stop date: 11/29/14 6:22:00 Labetalol 0 No Notes: Memori a 4-29 (Same as: l 11:23: Normodyne, [place] 00 Trandate) Push over 2 minutes Give bolus over 2-3 minutes. normal 0 No 1,000 mL, Memori a saline 0.9% 4-29 Rate: 100 l IV 1,000 mL 11:23: ml/hr, Herm debbie 00 Infuse over: 10 hr, Route: IV, Dosing Weight 81.932 kg, Total Volume: 1,000, Start date: 10/30/14 6:23:00, Duration: 30 day, Stop date: 11/29/14 6:22:00 Labetalol No Notes: Memori a 4-29 (Same [...] 30 day, Stop date: 11/29/14 6:22:00 Labetalol No Notes: Memori a 4-29 (Same [...] 30 day, Stop date: 11/29/14 6:22:00 Labetalol 0 No Notes: Memori a 4-29 (Same as: l 11:23: Normodyne, [place] 00 Trandate) Push over 2 minutes Give bolus over 2-3 minutes. normal 0 No 1,000 mL, Memori a saline 0.9% 4-29 Rate: 100 l IV 1,000 mL 11:23: ml/hr, Herm debbie 00 Infuse over: 10 hr, Route: IV, Dosing Weight 81.932 kg, Total Volume: 1,000, Start date: 10/30/14 6:23:00, Duration: 30 day, Stop date: 11/29/14 6:22:00 Labetalol No Notes: Memori a 4-29 (Same [...] 30 day, Stop date: 11/29/14 6:22:00 Labetalol No Notes: Memori a 4-29 (Same as: l 11:23: Normodyne, [place] 00 Trandate) Push over 2 minutes Give bolus over 2-3 minutes. normal No 1,000 mL, Memori a saline 0.9% 4- Rate: 100 l IV 1,000 mL 11:23: [...] thiazide 10-30 PO, Daily, l 10:34: 0 [place] 00 Refill(s) Lisinopril Yes 20 mg, PO, M emoria 10-30 Daily, 0 l 10:34: Refill(s) [place] 00 carvedilol Yes 12.5 mg = Me moria 12.5 mg 4-29 1 tab, PO, l oral tablet 10:34: BID, 0 Refill(s) Hydrochloro No 12.5 mg, Me moria thiazide 4-29 PO, Daily, l 10:34: 0 Refill(s) Lisinopril Yes 20 mg, PO, M emoria 4-29 Daily, 0 l 10:34: Refill(s) carvedilol Yes 12.5 mg = Me moria 12.5 mg 4-29 1 tab, PO, l oral tablet 10:34: BID, 0 Refill(s) Hydrochloro No 12.5 mg, Me moria thiazide 4-29 PO, Daily, l 10:34: 0 Refill(s) Lisinopril Yes 20 mg, PO, M emoria 4-29 Daily, 0 l 10:34: Refill(s) carvedilol Yes 12.5 mg = Me moria 12.5 mg 4-29 1 tab, PO, l oral tablet 10:34: BID, 0 Refill(s) Hydrochloro No 12.5 mg, Me moria thiazide 4-29 PO, Daily, l 10:34: 0 Refill(s) Lisinopril Yes 20 mg, PO, M emoria 4-29 Daily, 0 l 10:34: Refill(s) carvedilol Yes 12.5 mg = Me moria 12.5 mg 4-29 1 tab, PO, l oral tablet 10:34: BID, 0 Refill(s) Hydrochloro No 12.5 mg, Me moria thiazide 4-29 PO, Daily, l 10:34: 0 Refill(s) Lisinopril Yes 20 mg, PO, M emoria 4-29 Daily, 0 l 10:34: Refill(s) carvedilol Yes 12.5 mg = Me moria 12.5 mg 4-29 1 tab, PO, l oral tablet 10:34: BID, 0 Herm Refill(s) Hydrochloro No 12.5 mg, Me moria thiazide 4-29 PO, Daily, l 10:34: 0 Refill(s) Lisinopril Yes 20 mg, PO, M emoria 4-29 Daily, 0 l 10:34: Refill(s) carvedilol Yes 12.5 mg = Me moria 12.5 mg 10-30 1 tab, PO, l oral tablet 10:34: BID, 0 Herm Refill(s) Hydrochloro No 12.5 mg, Me moria thiazide 4-29 PO, Daily, l 10:34: 0 Refill(s) Lisinopril Yes 20 mg, PO, M emoria 4-29 Daily, 0 l 10:34: Refill(s) carvedilol Yes 12.5 mg = Me moria 12.5 mg 10-30 1 tab, PO, l oral tablet 10:34: BID, 0 Refill(s) Hydrochloro No 12.5 mg, Me moria thiazide 4-29 PO, Daily, l 10:34: 0 Refill(s) Lisinopril Yes 20 mg, PO, M emoria 4-29 Daily, 0 l 10:34: Refill(s) carvedilol Yes 12.5 mg = Me moria 12.5 mg 10-30 1 tab, PO, l oral tablet 10:34: BID, 0 Refill(s) Hydrochloro No 12.5 mg, Me moria thiazide 4-29 PO, Daily, l 10:34: 0 Refill(s) Lisinopril Yes 20 mg, PO, M emoria 4-29 Daily, 0 l 10:34: Refill(s) carvedilol Yes 12.5 mg = Me moria 12.5 mg 29 1 tab, PO, l oral tablet 10:34: BID, 0 Refill(s) Hydrochloro No 12.5 mg, Me moria thiazide 4-29 PO, Daily, l 10:34: 0 Refill(s) Lisinopril Yes 20 mg, PO, M emoria 4-29 Daily, 0 l 10:34: Refill(s) carvedilol Yes 12.5 mg = Me moria 12.5 mg -29 1 tab, PO, l oral tablet 10:34: BID, 0 Refill(s) Hydrochloro No 12.5 mg, Me moria thiazide 4-29 PO, Daily, l 10:34: 0 Refill(s) Lisinopril Yes 20 mg, PO, M emoria - Daily, 0 l 10:34: Refill(s) lisinopril No 2mg 20 3-12 mg-hydrochl 00:00: orothiazide 00 12.5 mg tablet carvedilol No 1mg 12.5 mg 3-12 tablet 00:00: 00 lisinopril No 2mg 20 3-12 mg-hydrochl 00:00: orothiazide 00 12.5 mg tablet carvedilol No 1mg 12.5 mg 3-12 tablet 00:00: 00 lisinopril 0 No 2mg 20 3-12 mg-hydrochl 00:00: orothiazide 00 12.5 mg tablet carvedilol 0 No 1mg 12.5 mg 3-12 tablet 00:00: 00 aspirin 81 Yes 81mg Take 1 Tab U nivers mg chewable 6-14 by mouth ity of tablet 00:00: daily. [address] hydrocodone Yes 1{tbl} Take 1 Tab [facility] -acetaminop 6-14 by mouth ity of [place] ([place] 6 [place] 5-325 mg 00 (six) Medical tablet hours as Branch needed for Pain. aspirin 81 Yes 81mg Take 1 Tab U nivers mg chewable 6-14 by mouth ity of tablet 00:00: daily. [address] hydrocodone Yes 1{tbl} Take 1 Tab Univers -acetaminop 6-14 by mouth ity of hen ([place]: [place] 6 [place] 5-325 mg 00 (six) Medical tablet hours as Branch needed for Pain. aspirin 81 Yes 81mg Take 1 Tab U nivers mg chewable 6-14 by mouth ity of tablet 00:00: daily. [place] [facility] hydrocodone Yes 1{tbl} Take 1 Tab Univers -acetaminop 6-14 by mouth ity of hen ([place] 00:00: every 6 [place] 5-325 mg 00 (six) Medical tablet hours as Branch needed for Pain. aspirin 81 Yes 81mg Take 1 Tab U nivers mg chewable 6-14 by mouth ity of tablet 00:00: daily. Medical Branch hydrocodone Yes 1{tbl} Take 1 Tab Univers -acetaminop 6-14 by mouth ity of hen ([place] 00:00: every 6 [place] 5-325 mg 00 (six) Medical tablet hours as Branch needed for Pain. aspirin 81 Yes 81mg Take 1 Tab U nivers mg chewable 6-14 by mouth ity of tablet 00:00: daily. Medical Branch hydrocodone Yes 1{tbl} Take 1 Tab Univers -acetaminop 6-14 by mouth ity of hen ([place] 00:00: every 6 [place] 5-325 mg 00 (six) Medical tablet hours as Branch needed for Pain. lisinopril Yes 20mg Take 20 mg U nivers (PRINIVIL,Z 6-13 by mouth 2 it y of ESTRIL) 20 00:00: (two) [place] mg tablet 00 times Medical daily. Branch lisinopril Yes 20mg Take 20 mg U nivers (PRINIVIL,Z 6-13 by mouth 2 it y of ESTRIL) 20 00:00: (two) [place] mg tablet 00 times Medical daily. Branch lisinopril Yes 20mg Take 20 mg U nivers (PRINIVIL,Z 6-13 by mouth 2 it y of ESTRIL) 20 00:00: (two) [place] mg tablet 00 times Medical daily. Branch lisinopril Yes 20mg Take 20 mg U nivers (PRINIVIL,Z 6-13 by mouth 2 it y of ESTRIL) 20 00:00: (two) [place] mg tablet 00 times Medical daily. Branch lisinopril 2010-0 Yes 20mg Take 20 mg U nivers (PRINIVIL,Z 6-13 by mouth 2 it y of ESTRIL) 20 00:00: (two) [place] mg tablet 00 times Medical daily. 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) Moderna COVID-19 2020-11-18 Completed Vaccine 00:00:00 Moderna COVID-19 2020-11-18 Completed Vaccine 00:00:00 Moderna COVID-19 2020-11-18 Completed Vaccine 00:00:00 Moderna COVID-19 2020-10-21 Completed Vaccine 00:00:00 Moderna COVID-19 2020-10-21 Completed Vaccine 00:00:00 Moderna COVID-19 2020-10-21 Completed Vaccine 00:00:00 pneumococcal 2014-11-01 Completed [facility] 23-valent vaccine 18:41:00 [place] pneumococcal 2014-11-01 Completed [facility] 23-valent vaccine 18:41:00 [place] pneumococcal 2014-11-01 Completed [facility] 23-valent vaccine 18:41:00 [place] pneumococcal 2014-11-01 Completed [facility] 23-valent vaccine 18:41:00 [place] pneumococcal 2014-11-01 Completed [facility] 23-valent vaccine 18:41:00 [place] pneumococcal 2014-11-01 Completed [facility] 23-valent vaccine 18:41:00 [place] pneumococcal 2014-11-01 Completed [facility] 23-valent vaccine 18:41:00 [place] pneumococcal 2014-11-01 Completed [facility] 23-valent vaccine 18:41:00 [place] pneumococcal 2014-11-01 Completed [facility] 23-valent vaccine 18:41:00 [place] pneumococcal 2014-11-01 Completed [facility] 23-valent vaccine 18:41:00 [place] pneumococcal 2014-11-01 Completed [facility] 23-valent vaccine 18:41:00 [place] Vital Signs Vital Name Observation Time Observation Value Comments Source Systolic blood 2022-06-22 20:49:00 110 mm[Hg] Univer sity of pressure [facility] Diastolic blood 2022-06-22 20:49:00 75 mm[Hg] Unive rsity of pressure [facility] Heart rate 2022-06-22 20:49:00 76 /min Universi ty [facility] Body height 2022-06-22 20:49:00 162.6 cm Universi ty [facility] Body weight 2022-06-22 20:49:00 74.163 kg Universi [facility] BMI 2022-06-22 20:49:00 28.06 [facility] in 2022-06-22 20:49:00 96 /min [facility] blood by [facility] Pulse oximetry Branch HEIGHT 2022-05-29 14:00:00 162.6 cm WEIGHT 2022-05-29 14:00:00 73.2 kg HEIGHT 2022-05-29 14:00:00 162.6 cm WEIGHT 2022-05-29 14:00:00 73.2 kg HEIGHT 2022-05-29 14:00:00 162.6 cm WEIGHT 2022-05-29 14:00:00 73.2 kg BP Systolic 2022-06-03 10:40:00 144 mm[Hg] BP Diastolic 2022-06-03 10:40:00 103 mm[Hg] Weight Measured 2022-06-03 10:40:00 168.80 pounds Height Measured 2022-06-03 10:40:00 63.80 inches Body Temperature 2022-06-03 10:40:00 98.40 degrees Heart Rate 2022-06-03 10:40:00 98.00 /min Respiratory Rate 2022-06-03 10:40:00 18.00 /min Systolic blood 2022-05-31 15:35:00 137 mm[Hg] [facility] Diastolic blood 2022-05-31 15:35:00 87 mm[Hg] [facility] Heart rate 2022-05-31 15:35:00 72 /min [facility] Body temperature 2022-05-31 15:35:00 35.78 Inez [facility] Respiratory rate 2022-05-31 15:35:00 18 /min [facility] Oxygen saturation in 2022-05-31 15:35:00 97 /min [facility] Arterial blood by Medical Ce nter Pulse oximetry Body height 2022-05-30 06:19:00 162.6 cm [facility] Body weight 2022-05-30 06:19:00 73.2 kg [facility] BMI 2022-05-30 06:19:00 27.70 kg/m2 [facility] BP Systolic 2022-04-14 09:42:00 116 mm[Hg] BP [...] 17.00 /min Heart Rate 2014-11-01 17:00:00 [facility] [place] Temperature Oral (F) 2014-11-01 17:00:00 98.5 F [facility] [place] Systolic (mm Hg) 2014-11-01 17:00:00 Abad rial [place] Diastolic (mm Hg) 2014-11-01 17:00:00 Mem orial [place] Respitory Rate 2014-11-01 17:00:00 Memori al [place] Heart Rate 2014-11-01 13:00:00 [facility] [place] Systolic (mm Hg) 2014-11-01 13:00:00 Abad rial [place] Diastolic (mm Hg) 2014-11-01 13:00:00 Mem orial [place] Respitory Rate 2014-11-01 13:00:00 Memori al [place] Temperature Oral (F) 2014-11-01 13:00:00 98.6 F [facility] [place] Respitory Rate 2014-11-01 09:01:00 Memori al [place] Systolic (mm Hg) 2014-11-01 09:01:00 Abad rial [place] Diastolic (mm Hg) 2014-11-01 09:01:00 Mem orial [place] Temperature Oral (F) 2014-11-01 09:01:00 98 F [facility] [place] Heart Rate 2014-11-01 09:01:00 [facility] Weight 2014-10-30 10:23:00 [facility] BMI Calculated 2014-10-30 10:23:00 [facility] 2014-10-30 10:23:00 162.56 cm [facility] Procedures Procedure Date / Time Performing Clinician Source Performed CONSENT/REFUSAL FOR 2022-06-22 20:29:40 Doctor Unassigned, No Un [facility] DIAGNOSIS AND TREATMENT Name Medical Branch POCT-GLUCOSE METER 2022-05-31 12:27:00 Marck Foster [facility] 2D ECHO W/ DOPPLER 2022-05-31 12:12:43 Layne Prieto [facility] (CW/PW/COLOR) [facility] POCT-GLUCOSE METER 2022-05-31 09:00:00 Marck Foster [facility] BASIC METABOLIC PANEL 2022-05-31 08:31:00 [place] weathers [facility] MAGNESIUM 2022-05-31 08:31[facility] 2022-05-30 20:54:00 [facility] POCT-GLUCOSE METER 2022-05-30 15:00:00 Martin [facility] MR BRAIN WITHOUT IV 2022-05-30 12:30:00 [facility] POCT-GLUCOSE METER 2022-05-30 10:50:[facility] 2022-05-30 05:34:00 donavon [facility] CBC W/PLT COUNT & AUTO 2022-05-30 05:34:00 [facility] HEMOGLOBIN A1C 2022-05-30 05:34:00 [facility] BASIC METABOLIC PANEL 2022-05-30 05:34:00 [facility] 2022-05-30 05:34:00 Martin [facility] PHOSPHORUS 2022-05-30 05:34:00 [facility] W/PLT COUNT & AUTO 2022-05-30 05:34:00 Ahdonavon [facility] POCT-GLUCOSE METER 2022-05-29 21:39:00 [facility] PO[facility]SE METER 2022-05-29 17:29:00 [facility] W/PLT COUNT & AUTO 2022-05-29 15:15:00 Ahdonavon [facility] HIGH SENSITIVITY 2022-05-29 15:15:00 [facility] Center HEPATIC FUNCTION PANEL 2022-05-29 15:15:00 [facility] BASIC METABOLIC PANEL 2022-05-29 15:15:00 [place] [facility] CBC W/PLT COUNT & AUTO 2022-05-29 15:15:00 [facility] VITAMIN B12 2022-05-29 15:14:00 [facility] TSH/FREE T4 IF 2022-05-29 15:14:00 [facility] RPR 2022-05-29 15:14:00 [facility] ECG 12-LEAD 2022-05-29 15:13:48 Unknown, Hl7 [facility] ECG 12-LEAD 2022-05-29 15:13:48 [facility] ECG 12-LEAD 2022-05-29 15:13:48 Unknown, Hl7 [facility] ECG 12-LEAD 2022-05-29 15:11:24 Unknown, 7 [facility] ECG 12-LEAD 2022-05-29 15:11:24 Unknown, 7 [facility] [id number] Colposcopy Cervix 2020-09-26 00:00:00 Bx Cervix endocrv Curtg [id number] Colposcopy Cervix 2019-09-04 00:00:00 Bx Cervix endocrv Curtg Rmvl Impacted Cerumen 2015-08-15 00:00:00 Spx 1/both Ears section [facility] Plan of Care Planned Activity Planned Date Details Comments Source Future Scheduled 2025-05-30 Lipid panel (procedure) [facility] 00:00:00 [code = 29699253] Medical Ce nter Future Scheduled 2025-05-30 Lipid panel (procedure) [facility] 00:00:00 [code = 09008618] Medical Ce nter Future Scheduled 2025-05-30 Lipid panel (procedure) [facility] 00:00:00 [code = [id number]] Medical Ce nter Future Scheduled 2025-05-30 Lipid panel (procedure) [facility] 00:00:00 [code = 06807418] Medical Ce nter Future Scheduled 2025-05-30 Lipid panel (procedure) [facility] 00:00:00 [code = 23313157] Medical Ce nter Future Scheduled 2025-05-30 Lipid panel (procedure) [facility] 00:00:00 [code = [id number]] Medical Ce nter Future Scheduled 2025-05-30 Lipid panel (procedure) [facility] 00:00:00 [code = [id number]] Medical Ce nter Future Scheduled 2023-03-[address] [facility] 00:00:00 (Season Ended) [code = Medic al Center INFLUENZA VACCINE (Season Ended)] Future Scheduled 2023-03-[address] [facility] 00:00:00 (Season Ended) [code = Medic al Center INFLUENZA VACCINE (Season Ended)] Future Scheduled 2023-03-[address] [facility] 00:00:00 (Season Ended) [code = Medic al Center INFLUENZA VACCINE (Season Ended)] Future Scheduled 2023-03-[address] [facility] 00:00:00 (Season Ended) [code = Medic al Center INFLUENZA VACCINE (Season Ended)] Future Scheduled 2023-03-[address] [facility] 00:00:00 (Season Ended) [code = Medic al Center INFLUENZA VACCINE (Season Ended)] Future Scheduled 2023-03-[address] [facility] 00:00:00 (Season Ended) [code = Medic al Center INFLUENZA VACCINE (Season Ended)] Future Scheduled 2022-07-[address] [facility] 00:00:00 (12+) [code = Medical Center DEPRESSION SCREENING (12+)] Future Scheduled 2022-07-[address] [facility] 00:00:00 (12+) [code = Medical Center DEPRESSION SCREENING (12+)] Future Scheduled 2022-07-[address] [facility] 00:00:00 (12+) [code = Medical Center DEPRESSION SCREENING (12+)] Future Scheduled 2022-07-[address] [facility] 00:00:00 (12+) [code = Medical Center DEPRESSION SCREENING (12+)] Future Scheduled 2022-07-[address] [facility] 00:00:00 (12+) [code = Medical Center DEPRESSION SCREENING (12+)] Future Scheduled 2022-07-[address] [facility] 00:00:00 (12+) [code = Medical Center DEPRESSION SCREENING (12+)] Future Scheduled 2022-03-04 INFLUENZA VACCINE (#1) [facility]:00 [code = INFLUENZA Medical Ce [facility]ter VACCINE (#1)] Future Scheduled 2021-07-[address] [facility] 00:00:00 (12+) [code = Medical Center DEPRESSION SCREENING (12+)] Future Scheduled 2021-04-20 COVID-19 VACCINE (3 - [facility]00 [facility] series) [code = COVID-19 VACCINE (3 - [facility] series)] Future Scheduled 2021-01-13 COVID-19 VACCINE (3 - [facility] series) [code = COVID-19 VACCINE (3 - [facility])] Future Scheduled 2021-01-13 COVID-19 VACCINE (3 - [facility] series) [code = COVID-19 VACCINE (3 - [facility] series)] Future Scheduled 2021-01-13 COVID-19 VACCINE (3 - [facility] series) [code = COVID-19 VACCINE (3 - [facility] series)] Future Scheduled 2021-01-13 COVID-19 VACCINE (3 - [facility]00 [facility] series) [code = COVID-19 VACCINE (3 - [facility] series)] Future Scheduled 2021-01-13 COVID-19 VACCINE (3 - [facility] series) [code = COVID-19 VACCINE (3 - [facility] series)] Future Scheduled 2021-01-13 COVID-19 VACCINE (3 - [facility]00 [facility] series) [code = COVID-19 VACCINE (3 - Booster for [employer])] Future Scheduled 2019-06-[address] [facility]00 [facility]procedure[facility] [code = [id number]] Future Scheduled 2019-06-[address] [facility]00 [facility]procedure[facility] [code = 58584642] Future Scheduled 2019-06-[address] [facility] 00[facility]:00 [facility] (procedure[facility] [code = 11811633] Future Scheduled 2019-06-[address] [facility] 00[facility]:00 [facility]procedure[facility] [code = 74100841] Future Scheduled 2019-06-[address] [facility] 00[facility]00 [facility]procedure[facility] [code = 30865432] Future Scheduled 2019-06-[address] [facility] 00:00:00 measurement (procedure) [facility] [code = 23310487] Future Scheduled 2019-06-[address] [facility] 00:00:00 measurement (procedure) [facility] [code = 16983749] Future Scheduled 2018-12-[address] [facility] 00:00:00 0-64 YRS (2 - PCV) Medical [facility] enter [code = PNEUMOCOCCAL VACCINE 0-64 YRS (2 - PCV)] Future Scheduled 2018-12-[address] [facility] 00:00:00 0-64 YRS (2 - PCV) [facility] [code = PNEUMOCOCCAL VACCINE 0-64 YRS (2 - PCV)] Future Scheduled 2018-12-[address] [facility] 00:00:00 0-64 YRS (2 - PCV) Medical C enter [code = PNEUMOCOCCAL VACCINE 0-64 YRS (2 - PCV)] Future Scheduled 2018-12-[address] [facility] 00:00:00 0-64 YRS (2 - PCV) Medical [facility] enter [code = PNEUMOCOCCAL VACCINE 0-64 YRS (2 - PCV)] Future Scheduled 2018-12-[address] [facility] 00:00:00 0-64 YRS (2 - PCV) Medical [facility] enter [code = PNEUMOCOCCAL VACCINE 0-64 YRS (2 - PCV)] Future Scheduled 2018-12-[address] [facility] 00:00:00 0-64 YRS (2 - PCV) Medical [facility] enter [code = PNEUMOCOCCAL VACCINE 0-64 YRS (2 - PCV)] Future Scheduled 2018-12-[address] [facility] 00:00:00 0-64 YRS (2 - PCV) Medical [facility] enter [code = PNEUMOCOCCAL VACCINE 0-64 YRS (2 - PCV)] Future Scheduled 2008 SHINGLES VACCINES ([address] [facility] 00:00:00 2) [code = SHINGLES [facility] VACCINES (1 of 2)] Future Scheduled 2008 SHINGLES VACCINES ([address] [facility] 00:00:00 2) [code = SHINGLES [facility] VACCINES (1 of 2)] Future Scheduled 2008 SHINGLES VACCINES ([address] [facility] 00:00:00 2) [code = SHINGLES [facility] VACCINES (1 of 2)] Future Scheduled 2008 SHINGLES VACCINES ([address] [facility] 00:00:00 2) [code = SHINGLES [facility] VACCINES (1 of 2)] Future Scheduled 2008 SHINGLES VACCINES ([address] [facility] 00:00:00 2) [code = SHINGLES [facility] VACCINES (1 of 2)] Future Scheduled 2008 SHINGLES VACCINES ([address] [facility] 00:00:00 2) [code = SHINGLES [facility] VACCINES (1 of 2)] Future Scheduled 2008 SHINGLES VACCINES ([address] [facility] 00:00:00 2) [code = SHINGLES [facility] VACCINES (1 of 2)] Future Scheduled 1979-11-05 Screening for malignant [facility] 00:00:00 neoplasm of cervix [facility] enter (procedure) [code = [id number]] Future Scheduled 1979-11-05 Screening for malignant [facility] 00:00:00 neoplasm of cervix [facility] (procedure) [code = 624082621] Future Scheduled 1979-11-05 Screening for malignant [facility] 00:00:00 neoplasm of cervix [facility] (procedure) [code = 976824110] Future Scheduled 1979-11-05 Screening for malignant [facility] 00:00:00 neoplasm of cervix [facility] enter (procedure) [code = 267408772] Future Scheduled 1979-11-05 Screening for malignant [facility] 00:00:00 neoplasm of cervix [facility] enter (procedure) [code = 533697850] Future Scheduled 1979-11-05 Screening for malignant [facility] 00:00:00 neoplasm of cervix [facility] (procedure) [code = 502406893] Future Scheduled 1979-11-05 Screening for malignant [facility] 00:00:00 neoplasm of cervix Medical [facility] enter (procedure) [code = 113862651] Future Scheduled 1977 DTAP/TDAP/TD [facility]INES [facility]:00 (1 - Tdap) [code = Medical C enter DTAP/TDAP/TD VACCINES (1 - Tdap)] Future Scheduled 1977 DTAP/TDAP/TD [facility]ACCINES [facility] 00:00:00 (1 - Tdap) [code = Medical C enter DTAP/TDAP/TD VACCINES (1 - Tdap)] Future Scheduled 1977 DTAP/TDAP/TD [facility]ACCINES [facility] 00:00:00 (1 - Tdap) [code = Medical C enter DTAP/TDAP/TD VACCINES (1 - Tdap)] Future Scheduled 1977 DTAP/TDAP/TD [facility]ACCINES [facility] 00:00:00 (1 - Tdap) [code = Medical C enter DTAP/TDAP/TD VACCINES (1 - Tdap)] Future Scheduled 1977 DTAP/TDAP/TD [facility]ACCINES [facility] 00:00:00 (1 - Tdap) [code = Medical C enter DTAP/TDAP/TD VACCINES (1 - Tdap)] Future Scheduled 1977 DTAP/TDAP/TD [facility]ACCINES [facility] 00:00:00 (1 - Tdap) [code = Medical C enter DTAP/TDAP/TD VACCINES (1 - Tdap)] Future Scheduled 1977 DTAP/TDAP/TD [facility]ACCINES [facility] 00:00:00 (1 - Tdap) [code = Medical C enter DTAP/TDAP/TD VACCINES (1 - Tdap)] Future Scheduled 1976 HEPATITIS C [facility]CRE[facility] [code = HEPATITIS C [facility] SCREENING] Future Scheduled 1976 HEPATITIS C [facility]:00 [code = HEPATITIS C [facility] Center SCREENING] Future Scheduled 1976 HEPATITIS C [facility]:00:00 [code = HEPATITIS C [facility] Center SCREENING] Future Scheduled 1976 HEPATITIS C [facility] 00:00:00 [code = HEPATITIS C [facility] Center SCREENING] Future Scheduled 1976 HEPATITIS C [facility]:00:00 [code = HEPATITIS C [facility] Center SCREENING] Future Scheduled 1976 HEPATITIS C [facility]:00:00 [code = HEPATITIS C [facility] Center SCREENING] Future Scheduled 1976 HEPATITIS C [facility]:00:00 [code = HEPATITIS C Medical Center SCREENING] Future Scheduled [address] [facility] 00:00:00 [facility]ing [facility] Screening (12+) [code = Tobacco Cessation Counseling and Screening (12+)] Future Scheduled [address] [facility] 00:00:00 Counseling and Medical Cent[facility] r Screening (12+) [code = Tobacco Cessation Counseling and Screening (12+)] Future Scheduled [address] [facility] 00:00:00 Counseling and Medical Cent[facility] r Screening (12+) [code = Tobacco Cessation Counseling and Screening (12+)] Future Scheduled [address] [facility] 00:00:00 Counseling and Medical Cent[facility] r Screening (12+) [code = Tobacco Cessation Counseling and Screening (12+)] Future Scheduled [address] [facility] 00:00:00 Counseling and Medical Cente r Screening (12+) [code = Tobacco Cessation Counseling and Screening (12+)] Future Scheduled [address] [facility] 00:00:00 Counseling and Medical Cent[facility] r Screening (12+) [code = Tobacco Cessation Counseling and Screening (12+)] Future Scheduled [address] [facility] 00:00:00 Counseling and Medical Cente r Screening (12+) [code = Tobacco Cessation Counseling and Screening (12+)] Future Scheduled 1968 DIABETIC EYE EXAM [code [facility] 00:00:00 = DIABETIC EYE EXAM] [facility] Future Scheduled [address] [facility] examination [facility] Center (regime/therapy) [code = 261396947] Future Scheduled 1968 Urine screening for [facility] 00:00:00 protein (procedure) [facility] Center [code = 976945726] Future Scheduled 1968 DIABETIC EYE EXAM [code [facility] 00:00:00 = DIABETIC EYE EXAM] [facility] Future Scheduled [address] [facility] examination [facility] (regime/therapy) [code = 868947495] Future Scheduled 1968 Urine screening for [facility] 00:00:00 protein (procedure) [facility] [code = 217306409] Future Scheduled 1968 DIABETIC EYE EXAM [code [facility] 00:00:00 = DIABETIC EYE EXAM] [facility] Future Scheduled [address] [facility]00 examination [facility] (regime/therapy) [code = 394471853] Future Scheduled 1968 Urine screening for [facility] 00:00:00 protein (procedure) [facility] Center [code = 974776644] Future Scheduled 1968 DIABETIC EYE EXAM [code [facility] 00:00:00 = DIABETIC EYE EXAM] [facility] Future Scheduled [address] [facility]00 examination [facility] (regime/therapy) [code = 513021128] Future Scheduled 1968 Urine screening for [facility] 00:00:00 protein (procedure) [facility] Center [code = 858782281] Future Scheduled 1968 DIABETIC EYE EXAM [code [facility] 00:00:00 = DIABETIC EYE EXAM] [facility] Future Scheduled [address] [facility] 00:[facility]:00 examination [facility] (regime/therapy) [code = 520935874] Future Scheduled 1968 Urine screening for [facility] 00:00:00 protein (procedure) [facility] Center [code = 979642953] Future Scheduled 1968 DIABETIC EYE EXAM [code [facility] 00:00:00 = DIABETIC EYE EXAM] [facility] Future Scheduled [address] [facility] 00:[facility]:00 examination [facility] Center (regime/therapy) [code = 178169242] Future Scheduled 1968 Urine screening for [facility] 00:00:00 protein (procedure) [facility] Center [code = 581866874] Future Scheduled 1968 DIABETIC EYE EXAM [code [facility] 00:00:00 = DIABETIC EYE EXAM] [facility] Future Scheduled [address] [facility]:00 examination [facility] Center (regime/therapy) [code = 410592040] Future Scheduled 1968 Urine screening for [facility] 00:00:00 protein (procedure) [facility] Center [code = 164531298] Future Scheduled 1958 Screening for malignant [facility] 00:00:00 neoplasm of breast Medical C enter (procedure) [code = 298009240] Future Scheduled 1958 CT Colonography (combo) [facility] 00:00:00 [code = CT Colonography [facility] (combo)] Future Scheduled 1958 Screening for malignant [facility] 00:00:00 neoplasm of colon Medical Ce nter (procedure) [code = 911909088] Future Scheduled 1958 Screening for malignant [facility] 00:00:00 neoplasm of colon Medical Ce nter (procedure) [code = 036375375] Future Scheduled 1958 Screening for malignant [facility] 00:00:00 neoplasm of colon Medical Ce nter (procedure) [code = 531212354] Future Scheduled 1958 Screening for malignant [facility] 00:00:00 neoplasm of colon Medical Ce nter (procedure) [code = 371553421] Future Scheduled 1958 Sigmoidoscopy [facility] Screening for malignant [facility] 00:00:00 neoplasm of breast Medical C enter (procedure) [code = 984748145] Future Scheduled 1958 CT Colonography (combo) [facility] 00:00:00 [code = CT Colonography [facility] (combo)] Future Scheduled 1958 Screening for malignant [facility] 00:00:00 neoplasm of colon Medical Ce nter (procedure) [code = 657427741] Future Scheduled 1958 Screening for malignant [facility] 00:00:00 neoplasm of colon Medical Ce nter (procedure) [code = 349119733] Future Scheduled 1958 Screening for malignant [facility] 00:00:00 neoplasm of colon Medical Ce [facility]ter (procedure) [code = 444032619] Future Scheduled 1958 Screening for malignant [facility] 00:00:00 neoplasm of colon Medical Ce [facility]ter (procedure) [code = 235632643] Future Scheduled 1958 Sigmoidoscopy [code = [facility] S[facility]oscopy] Medical Cent[facility] r Future Scheduled 1958 Screening for malignant [facility] 00:00:00 neoplasm of breast Medical C enter (procedure) [code = 587390325] Future Scheduled 1958 CT Colonography (combo) [facility] 00:00:00 [code = CT Colonography [facility] (combo)] Future Scheduled 1958 Screening for malignant [facility] 00:00:00 neoplasm of colon Medical Ce [facility]ter (procedure) [code = 595271278] Future Scheduled 1958 Screening for malignant [facility] 00:00:00 neoplasm of colon Medical Ce nter (procedure) [code = 242584300] Future Scheduled 1958 Screening for malignant [facility] 00:00:00 neoplasm of colon Medical Ce [facility]ter (procedure) [code = 955706040] Future Scheduled 1958 Screening for malignant [facility] 00:00:00 neoplasm of colon Medical Ce [facility]ter (procedure) [code = 697543240] Future Scheduled 1958 Sigmoidoscopy [code = [facility] S[facility]oidoscopy] [facility] Cent[facility] Future Scheduled 1958 Screening for malignant [facility] 00:00:00 neoplasm of breast Medical C enter (procedure) [code = 533436791] Future Scheduled 1958 CT Colonography (combo) [facility] 00:00:00 [code = CT Colonography [facility] (combo)] Future Scheduled 1958 Screening for malignant [facility] 00:00:00 neoplasm of colon Medical Ce [facility]ter (procedure) [code = 052390219] Future Scheduled 1958 Screening for malignant [facility] 00:00:00 neoplasm of colon Medical Ce [facility]ter (procedure) [code = 118899422] Future Scheduled 1958 Screening for malignant [facility] 00:00:00 neoplasm of colon Medical Ce [facility]ter (procedure) [code = 961175813] Future Scheduled 1958 Screening for malignant [facility] 00:00:00 neoplasm of colon Medical Ce [facility]ter (procedure) [code = 221660053] Future Scheduled 1958 Sigmoidoscopy [code = [facility] S[facility]oidoscopy] [facility] Cent[facility] Future Scheduled 1958 Screening for malignant [facility] 00:00:00 neoplasm of breast Medical C enter (procedure) [code = 877442170] Future Scheduled 1958 CT Colonography (combo) [facility] 00:00:00 [code = CT Colonography [facility] (combo)] Future Scheduled 1958 Screening for malignant [facility] 00:00:00 neoplasm of colon Medical Ce [facility]ter (procedure) [code = 127333510] Future Scheduled 1958 Screening for malignant [facility] 00:00:00 neoplasm of colon Medical Ce [facility]ter (procedure) [code = 748088625] Future Scheduled 1958 Screening for malignant [facility] 00:00:00 neoplasm of colon Medical Ce [facility]ter (procedure) [code = 131892745] Future Scheduled 1958 Screening for malignant [facility] 00:00:00 neoplasm of colon Medical Ce nter (procedure) [code = 652629587] Future Scheduled 1958 Sigmoidoscopy [code = [facility] Sigmoidoscopy] Medical Cent[facility] r Future Scheduled 1958 Screening for malignant [facility] 00:00:00 neoplasm of breast Medical C enter (procedure) [code = 415546026] Future Scheduled 1958 CT Colonography (combo) [facility] 00:00:00 [code = CT Colonography [facility] (combo)] Future Scheduled 1958 Screening for malignant [facility] 00:00:00 neoplasm of colon Medical Ce nter (procedure) [code = 075092405] Future Scheduled 1958 Screening for malignant [facility] 00:00:00 neoplasm of colon Medical Ce [facility]ter (procedure) [code = 580345945] Future Scheduled 1958 Screening for malignant [facility] 00:00:00 neoplasm of colon Medical Ce nter (procedure) [code = 529573301] Future Scheduled 1958 Screening for malignant [facility] 00:00:00 neoplasm of colon Medical Ce [facility]ter (procedure) [code = 365533693] Future Scheduled 1958 Sigmoidoscopy [code [facility] Sigmoidoscopy] [facility] Future Scheduled 1958 Screening for malignant [facility] 00:00:00 neoplasm of breast Medical C enter (procedure) [code = 993591888] Future Scheduled 1958 CT Colonography (combo) [facility] 00:00:00 [code = [facility] Future Scheduled 1958 Screening for malignant [facility] 00:00:00 neoplasm of colon Medical Ce [facility]ter (procedure) [code = 920870243] Future Scheduled 1958 Screening for malignant [facility] 00:00:00 neoplasm of colon Medical Ce [facility]ter (procedure) [code = 455919477] Future Scheduled 1958 Screening for malignant [facility] 00:00:00 neoplasm of colon Medical Ce [facility]ter (procedure) [code = 547549436] Future Scheduled 1958 Screening for malignant [facility] 00:00:00 neoplasm of colon Medical Ce nter (procedure) [code = 306769637] Future Scheduled 1958 Sigmoidoscopy [code [facility] S[facility]oscopy] Medical Cente r Goal Plan of Care Note [code = 38280-1] Goal Plan of Care Note [code = 24559-8] Goal Plan of Care Note [code = 66763-6] Goal Plan of Care Note [code = 20649-7] Goal Plan of Care Note [code = 68652-4] Goal Plan of Care Note [code = 50282-4] Goal Plan of Care Note [code = 50731-5] Goal Plan of Care Note [code = 93107-8] Goal Plan of Care Note [code = 85955-8] Goal Plan of Care Note [code = 81845-7] Goal Plan of Care Note [code = 40272-0] Goal Plan of Care Note [code = 56512-2] Goal Plan of Care Note [code = 41123-4] Goal Plan of Care Note [code = 24372-1] Goal Plan of Care Note [code = 36760-5] Goal Plan of Care Note [code = 67447-5] Goal Plan of Care Note [code = 84128-9] Goal Plan of Care Note [code = 68048-3] Goal Plan of Care Note [code = 91644-6] Goal Plan of Care Note [code = 42232-4] Goal Plan of Care Note [code = 96747-5] Goal Plan of Care Note [code = 51839-7] Goal Plan of Care Note [code = 13434-5] Goal Plan of Care Note [code = 75291-8] Goal Plan of Care Note [code = 34695-3] Goal Plan of Care Note [code = 43526-9] Goal Plan of Care Note [code = 99711-8] Goal Plan of Care Note [code = 15419-6] Goal Plan of Care Note [code = 79438-8] Goal Plan of Care Note [code = 42386-3] Goal Plan of Care Note [code = 12476-8] Goal Plan of Care Note [code = 25526-5] Goal Plan of Care Note [code = 66515-8] Goal Plan of Care Note [code = 26720-8] Goal Plan of Care Note [code = 71670-7] Goal Plan of Care Note [code = 15078-5] Goal Plan of Care Note [code = 92503-7] Goal Plan of Care Note [code = 47971-5] Goal Plan of Care Note [code = 76138-4] Goal Plan of Care Note [code = 34375-7] Goal Plan of Care Note [code = 60295-6] Goal Plan of Care Note [code = 53830-6] Goal Plan of Care Note [code = 96813-6] Goal Plan of Care Note [code = 23193-8] Goal Plan of Care Note [code = 23383-9] Goal Plan of Care Note [code = 34914-1] Goal Plan of Care Note [code = 77208-6] Goal Plan of Care Note [code = 76099-5] Goal Plan of Care Note [code = 57165-8] Goal Plan of Care Note [code = 52077-8] Goal Plan of Care Note [code = 59107-4] Goal Plan of Care Note [code = 50979-3] Goal Plan of Care Note [code = 65466-6] Goal Plan of Care Note [code = 92442-3] Goal Plan of Care Note [code = 24949-6] Goal Plan of Care Note [code = 60437-7] Goal Plan of Care Note [code = 81899-6] Goal Plan of Care Note [code = 25798-0] Goal Plan of Care Note [code = 56460-3] Goal Plan of Care Note [code = 93884-4] Goal Plan of Care Note [code = 18009-7] Goal Plan of Care Note [code = 45603-0] Goal Plan of Care Note [code = 88179-6] Goal Plan of Care Note [code = 20832-6] Goal Plan of Care Note [code = 24717-3] Goal Plan of Care Note [code = 26624-0] Goal Plan of Care Note [code = 35165-9] Goal Plan of Care Note [code = 07774-2] Goal Plan of Care Note [code = 47575-8] Goal Plan of Care Note [code = 26013-0] Goal Plan of Care Note [code = 27789-9] Goal Plan of Care Note [code = 46253-0] Goal Plan of Care Note [code = 33176-7] Goal Plan of Care Note [code = 93211-6] Goal Plan of Care Note [code = 93646-9] Goal Plan of Care Note [code = 91998-0] Goal Plan of Care Note [code = 40433-6] Goal Plan of Care Note [code = 25868-6] Goal Plan of Care Note [code = 47266-6] Goal Plan of Care Note [code = 12852-6] Goal Plan of Care Note [code = 88294-3] Goal Plan of Care Note [code = 05079-0] Goal Plan of Care Note [code = 20870-8] Goal Plan of Care Note [code = 87527-6] Goal Plan of Care Note [code = 04398-8] Goal Plan of Care Note [code = 79730-0] Goal Plan of Care Note [code = 27325-0] Goal Plan of Care Note [code = 22131-1] Goal Plan of Care Note [code = 16044-6] Goal Plan of Care Note [code = 04683-9] Goal Plan of Care Note [code = 06510-9] Goal Plan of Care Note [code = 83840-8] Goal Plan of Care Note [code = 37853-0] Goal Plan of Care Note [code = 97386-7] Goal Plan of Care Note [code = 87014-0] Goal Plan of Care Note [code = 07114-6] Goal Plan of Care Note [code = 97772-9] Goal Plan of Care Note [code = 41899-5] Goal Plan of Care Note [code = 84094-2] Goal Plan of Care Note [code = 69817-3] Goal Plan of Care Note [code = 89070-4] Goal Plan of Care Note [code = 65925-2] Goal Plan of Care Note [code = 38219-0] Goal Plan of Care Note [code = 06147-2] Goal Plan of Care Note [code = 09550-3] Goal Plan of Care Note [code = 47321-1] Goal Plan of Care Note [code = 52006-2] Goal Plan of Care Note [code = 22203-0] Goal Plan of Care Note [code = 08541-5] Goal Plan of Care Note [code = 02015-2] Goal Plan of Care Note [code = 84609-5] Goal Plan of Care Note [code = 10784-1] Goal Plan of Care Note [code = 55574-9] Goal Plan of Care Note [code = 35267-1] Goal Plan of Care Note [code = 98293-8] Goal Plan of Care Note [code = 42241-1] Goal Plan of Care Note [code = 22418-3] Goal Plan of Care Note [code = 76890-8] Goal Plan of Care Note [code = 30083-1] Goal Plan of Care Note [code = 13055-3] Goal Plan of Care Note [code = 25037-4] Goal Plan of Care Note [code = 25733-0] Goal Plan of Care Note [code = 82819-3] Goal Plan of Care Note [code = 57946-2] Goal Plan of Care Note [code = 22995-1] Goal Plan of Care Note [code = 10210-7] Goal Plan of Care Note [code = 34386-7] Goal Plan of Care Note [code = 45652-1] Goal Plan of Care Note [code = 85872-7] Goal Plan of Care Note [code = 80203-4] Goal Plan of Care Note [code = 42308-5] Goal Plan of Care Note [code = 98136-6] Goal Plan of Care Note [code = 77154-8] Goal Plan of Care Note [code = 76464-3] Goal Plan of Care Note [code = 24575-5] Goal Plan of Care Note [code = 65091-7] Goal Plan of Care Note [code = 36949-0] Goal Plan of Care Note [code = 06909-6] Goal Plan of Care Note [code = 86558-5] Goal Plan of Care Note [code = 98667-2] Goal Plan of Care Note [code = 04040-4] Goal Plan of Care Note [code = 02597-7] Goal Plan of Care Note [code = 28271-0] Goal Plan of Care Note [code = 17277-0] Goal Plan of Care Note [code = 19748-9] Goal Plan of Care Note [code = 04078-7] Goal Plan of Care Note [code = 86497-4] Goal Plan of Care Note [code = 35427-6] Goal Plan of Care Note [code = 68990-5] Goal Plan of Care Note [code = 24339-4] Goal Plan of Care Note [code = 72535-7] Goal Plan of Care Note [code = 09962-3] Goal Plan of Care Note [code = 03762-3] Goal Plan of Care Note [code = 81387-2] Goal Plan of Care Note [code = 74391-3] Goal Plan of Care Note [code = 26524-3] Goal Plan of Care Note [code = 21352-2] Goal Plan of Care Note [code = 64632-0] Goal Plan of Care Note [code = 21949-7] Goal Plan of Care Note [code = 04882-1] Goal Plan of Care Note [code = 75220-6] Goal Plan of Care Note [code = 40156-9] Goal Plan of Care Note [code = 80523-0] Goal Plan of Care Note [code = 14558-9] Goal Plan of Care Note [code = 22872-4] Goal Plan of Care Note [code = 04131-8] Goal Plan of Care Note [code = 00754-3] Goal Plan of Care Note [code = 08561-3] Goal Plan of Care Note [code = 24221-5] Goal Plan of Care Note [code = 88059-0] Goal Plan of Care Note [code = 21085-9] Goal Plan of Care Note [code = 21955-3] Goal Plan of Care Note [code = 10900-3] Goal Plan of Care Note [code = 97047-7] Goal Plan of Care Note [code = 97854-2] Goal Plan of Care Note [code = 20194-9] Goal Plan of Care Note [code = 20203-8] Goal Plan of Care Note [code = 65947-4] Goal Plan of Care Note [code = 77252-1] Goal Plan of Care Note [code = 52021-6] Goal Plan of Care Note [code = 14983-6] Goal Plan of Care Note [code = 13769-5] Goal Plan of Care Note [code = 45669-8] Goal Plan of Care Note [code = 51040-1] Goal Plan of Care Note [code = 53988-5] Goal Plan of Care Note [code = 53968-5] Goal Plan of Care Note [code = 03265-7] Goal Plan of Care Note [code = 43611-6] Goal Plan of Care Note [code = 40565-4] Goal Plan of Care Note [code = 83431-1] Goal Plan of Care Note [code = 53330-9] Goal Plan of Care Note [code = 96871-2] Goal Plan of Care Note [code = 50750-4] Goal Plan of Care Note [code = 41506-9] Goal Plan of Care Note [code = 12386-0] Goal Plan of Care Note [code = 33181-5] Goal Plan of Care Note [code = 33273-0] Goal Plan of Care Note [code = 19957-4] Goal Plan of Care Note [code = 90835-8] Goal Plan of Care Note [code = 81910-9] Goal Plan of Care Note [code = 95634-8] Goal Plan of Care Note [code = 10514-7] Goal Plan of Care Note [code = 54141-6] Goal Plan of Care Note [code = 04581-0] Goal Plan of Care Note [code = 73403-5] Goal Plan of Care Note [code = 32002-0] Goal Plan of Care Note [code = 60140-4] Goal Plan of Care Note [code = 52306-5] Goal Plan of Care Note [code = 09291-6] Goal Plan of Care Note [code = 10900-7] Goal Plan of Care Note [code = 89663-4] Goal Plan of Care Note [code = 95986-1] Encounters Start End Encounter Admission Attending Care Care Encounter Source Date/Time Date/Time Type Type Clinicians Facility Department ID 2022-10-11 2022-10-11 Outpatient SFA SFA 6030-20 230 Kyrie 15:27:48 15:27:48 410 F Car 2022-10-04 2022-10-04 Outpatient SFA SFA 6030-20 230 Kyrie 11:48:40 11:48:40 403 F Car 2022-09-20 2022-09-20 Outpatient Veda S[facility]SON [facility] [id number] Univers 15:00:00 15:00:00 LIBORIO steele [facility] 2022-06-22 2022-06-22 Outpatient PERCY STOREY [facility] [id number] Univers 14:40:00 15:33:30 PERCY HEARN [facility] 2022-06-22 2022-06-22 Office Nadiya [facility] 1.2.840.114 [id number] Univers 14:40:00 15:33:30 Visit [facility] 350.1.13.10 ity of [place] 4.2.7.2.686 Arron as JUMA?BLEA [phone] [address] OFFICE [facility] 2022-06-22 2022-06-22 Orders Doctor LANEY 1.2.840.114 [id number] Univers 00:00:00 00:00:00 Only Unassigned, CROW 350.1.13.10 ity of [place] [facility] 4.2.7.2.686 Arron as [phone] [address] 2022-06-22 2022-06-22 Letter Nadiya [facility] 1.2.840.114 [id number] Univers 00:00:00 00:00:00 (Out) [facility] 350.1.13.10 [facility] 4.2.7.2.686 Arron as JUMA?BLEA [id number] [address] 2022-06-22 2022-06-22 Letter Nadiya [facility] 1.2.840.114 [id number] Univers 00:00:00 00:00:00 (Out) [facility] 350.1.13.[address] 4.2.7.2.686 Arron as JUMA?BLEA [phone] [address] 2022-06-03 2022-06-03 Outpatient [facility] 6030-20 221 Kyrie 10:30:02 10:30:02 201 F Car 2022-06-03 2022-06-03 Outpatient [id number]- [id number] bf m8ms53-7 00:00:00 00:00:00 Visit 3391-4fad 391-4fad-a -v8w4-482 2z1-4217r7 3v7a2x812 o7a604 2022-05-29 2022-05-31 Inpatient ER [facility] [id number] [facility] 13:50:00 19:40:00 MRINALINI 2022-05-29 2022-05-31 Hospital [facility] [id number] [facility] 13:50:00 19:40:00 Encounter Layne Pireto [facility] 2022-05-29 2022-05-31 [facility] Veronica Gianfranco Wiseman [facility] [id number] [facility] 13:50:00 19:40:00 Encounter Layne Prieto Shirin [facility] 2022-05-29 2022-05-29 Outpatient [facility] [id number] [facility] 00:00:00 23:59:00 Adam 2022-05-29 2022-05-29 Orders [facility] [id number] 00:00:00 00:00:00 Only [facility] 2022-05-29 2022-05-29 Travel [facility] [id number] [facility] 00:[facility] 00:00:00 [facility] 2022-05-29 2022-05-29 Orders [facility] [id number] 00:00:00 00:00:00 Only [facility] 2022-05-29 2022-05-29 Travel [facility] [id number] [facility] 00:[facility] 00:[facility]:00 [facility] 2022-04-14 2022-04-14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 (NOTE) PAP TEST, THINPREP, [id number] 00:00:00 Test Item Value Reference Range Interpretation Comments SOURCE: (test code = Cervical/Endocervical 8001) SLIDES: (test code = 1 8011) LMP: (test code = 8021) SEE NOTE SPECIMEN ADEQUACY: (test (NOTE) code = 10086) INTERPRETATION: (test NILM/NO EPITH. code = 23702) ABNORMALITY;SEE BELOW HONEY BLENDER: (test Madhu Plank,CT(ASCP) code = 8101) QC TECHNOLOGIST: (test Malek code = 8111) Thalia,CT(ASCP) IAC LOCATION: (test code = (NOTE) 46644) CPT: (test code = 8140) (NOTE) PAP TEST, THINPREP, [id number] 00:00:00 Test Item Value Reference Range Interpretation Comments SOURCE: (test code = Cervical/Endocervical 8001) SLIDES: (test code = 1 8011) LMP: (test code = 8021) SEE NOTE SPECIMEN ADEQUACY: (test (NOTE) code = 26528) INTERPRETATION: (test NILM/NO EPITH. code = 97681) ABNORMALITY;SEE BELOW HONEY BLENDER: (test Madhu Plank,CT(ASCP) code = 8101) QC TECHNOLOGIST: (test Malek code = 8111) Slatracyyecole,CT(ASCP) IAC LOCATION: (test code = (NOTE) 49913) CPT: (test code = 8140) (NOTE) PAP TEST, THINPREP, [id number] 00:00:00 Test Item Value Reference Range Interpretation Comments SOURCE: (test code = Cervical/Endocervical 8001) SLIDES: (test code = 1 8011) LMP: (test code = 8021) SEE NOTE SPECIMEN ADEQUACY: (test (NOTE) code = 39629) INTERPRETATION: (test NILM/NO EPITH. code = 46953) ABNORMALITY;SEE BELOW HONEY BLENDER: (test Madhu FalconCT(ASCP) code = 8101) QC TECHNOLOGIST: (test Malek code = 8111) ThaliaCT(ASCP) IAC LOCATION: (test code = (NOTE) 37243) CPT: (test code = 8140) (NOTE) PAP TEST, THINPREP, [id number] 00:00:00 Test Item Value Reference Range Interpretation Comments SOURCE: (test code = Cervical/Endocervical 8001) SLIDES: (test code = 1 8011) LMP: (test code = 8021) SEE NOTE SPECIMEN ADEQUACY: (test (NOTE) code = 43181) INTERPRETATION: (test NILM/NO EPITH. code = 10980) ABNORMALITY;SEE BELOW HONEY BLENDER: (test Madhu FalconCT(ASCP) code = 8101) QC TECHNOLOGIST: (test Malek code = 8111) ThaliaCT(ASCP) IAC LOCATION: (test code = (NOTE) 10458) CPT: (test code = 8140) (NOTE) HPV HIGH RISK WITH GENOTYPE, [id number] 16:08:35 Test Item Value Reference Range Interpretation Comments HPV HIGH RISK INTERP NEGATIVE NEGATIVE (test code = 94280) HPV 16 (test code = NEGATIVE 04672) HPV 18 (test code = NEGATIVE 88615) HPV, HR, OTHER NEGATIVE Testing meth odology is GENOTYPES (test code real-ti me PCR utilizing = 20697) hydrolysis prob es with the RF nanoas 4800 system. The yamilex t individually de [...] OTHERWISE INDIC ATED, ALL TESTING PERFORM ED [facility], [facility]. [address] [place] [id number] LABORATORY DIRE CTOR: SHADY VAZQUEZ M.D. CLIA NUMBER [id number] [facility] [place]. [id number] HPV HIGH RISK WITH GENOTYPE, [id number] 00:00:00 Test Item Value Reference Range Interpretation Comments HPV HIGH RISK INTERP (test code = NEGATIVE 47994) HPV 16 (test code = 56078) NEGATIVE HPV 18 (test code = 29258) NEGATIVE HPV, HR, OTHER GENOTYPES (test code NEGATIVE = 27768) HPV HIGH RISK WITH GENOTYPE, [id number] 00:00:00 Test Item Value Reference Range Interpretation Comments HPV HIGH RISK INTERP (test code = NEGATIVE 22339) HPV 16 (test code = 49037) NEGATIVE HPV 18 (test code = 36601) NEGATIVE HPV, HR, OTHER GENOTYPES (test code NEGATIVE = 21029) HPV HIGH RISK WITH GENOTYPE, [id number] 00:00:00 Test Item Value Reference Range Interpretation Comments HPV HIGH RISK INTERP (test code = NEGATIVE 26850) HPV 16 (test code = 07502) NEGATIVE HPV 18 (test code = 97210) NEGATIVE HPV, HR, OTHER GENOTYPES (test code NEGATIVE = 86547) HPV HIGH RISK WITH GENOTYPE, [id number] 00:00:00 Test Item Value Reference Range Interpretation Comments HPV HIGH RISK INTERP (test code = NEGATIVE 71722) HPV 16 (test code = 94419) NEGATIVE HPV 18 (test code = 56321) NEGATIVE HPV, HR, OTHER GENOTYPES (test code NEGATIVE = 52840) HPV HIGH RISK WITH GENOTYPE, [id number] 00:00:00 Test Item Value Reference Range Interpretation Comments HPV HIGH RISK INTERP (test code = NEGATIVE 64059) HPV 16 (test code = 82832) NEGATIVE HPV 18 (test code = 99503) NEGATIVE HPV, HR, OTHER GENOTYPES (test code NEGATIVE = 13212) HPV HIGH RISK WITH GENOTYPE, [id number] 00:00:00 Test Item Value Reference Range Interpretation Comments HPV HIGH RISK INTERP (test code = NEGATIVE 43871) HPV 16 (test code = 74135) NEGATIVE HPV 18 (test code = 46461) NEGATIVE HPV, HR, OTHER GENOTYPES (test code NEGATIVE = 24380) TSH, THIRD [id number] 00:30:50 Test Item Value Reference Range Interpretation Comments TSH, THIRD GENERATION (test code 6.320 UIU/ML 0.400-4.100 H = 2821) LIPID [id number] 00:15:36 Test Item Value Reference Range Interpretation [...] MOREINFORMATION , SEE CLIENT ANNOUNCE MENT AT [email or web address]-C RISK RATIO LDL/HDL 0.95 RATIO <3.22 (test code = 2238) COMPREHENSIVE METABOLIC [id number] 00:15:36 Test Item Value Reference Range Interpretation Comments GLUCOSE (test code = 109 MG/DL 70-99 H 2216) BUN (test code = 27 MG/DL 8-23 H 2207) CREATININE (test 1.82 MG/DL 0.60-1.30 H code = 2214) eGFR (2020 CKD-EPI) 31 ML/MIN/1.73 >60 L (test code = 28201) CALC BUN/CREAT (test 15 RATIO 6-28 code = 2235) SODIUM (test code = 136 MEQ/L 201-200 4544) POTASSIUM (test code 3.7 MEQ/L 3.5-5.4 = [...] syste m which generated this result transmit rafael reference range : <=1.2. The refe rence range was not u sed to interpret th is result as normal/abnormal . ALKALINE PHOSPHATASE 69 U/L 40-140 (test code = 2204) AST (test code = 38 U/L 9-40 2217) ALT (test code = 37 U/L 5-40 2218) LIPID [id number] 00:00:00 Test Item Value Reference Range Interpretation Comments CHOLESTEROL (test code = 2210) 247 MG/DL TRIGLYCERIDES (test code = 2232) 265 MG/DL HDL CHOLESTEROL (test code = 2220) 107 MG/DL CALC LDL CHOL (test code = 2237) 102 MG/DL RISK RATIO LDL/HDL (test code = 0.95 RATIO 2238) LIPID [id number] 00:00:00 Test Item Value Reference Range Interpretation Comments CHOLESTEROL (test code = 2210) 247 MG/DL TRIGLYCERIDES (test code = 2232) 265 MG/DL HDL CHOLESTEROL (test code = 2220) 107 MG/DL CALC LDL CHOL (test code = 2237) 102 MG/DL RISK RATIO LDL/HDL (test code = 0.95 RATIO 2238) COMPREHENSIVE METABOLIC [id number] 00:00:00 Test Item Value Reference Range Interpretation Comments GLUCOSE (test code = 2217) 109 MG/DL BUN (test code = 2208) 27 MG/DL CREATININE (test code = 2214) 1.82 MG/DL eGFR (2020 CKD-EPI) (test code 31 ML/MIN/1.73 = 43505) CALC BUN/CREAT (test code = 15 RATIO [...] CALC GLOBULIN (test code = 3.3 G/DL 2240) CALC A/G RATIO (test code = 1.5 RATIO 2234) BILIRUBIN, TOTAL (test code = 0.8 MG/DL 2206) ALKALINE PHOSPHATASE (test 69 U/L code = 2204) AST (test code = 2218) 38 U/L ALT (test code = 2219) 37 U/L COMPREHENSIVE METABOLIC [id number] 00:00:00 Test Item Value Reference Range Interpretation Comments GLUCOSE (test code = 2217) 109 MG/DL BUN (test code = 2208) 27 MG/DL CREATININE (test code = 2214) 1.82 MG/DL eGFR (2020 CKD-EPI) (test code 31 ML/MIN/1.73 = 52657) CALC BUN/CREAT (test code = 15 RATIO [...] CALC GLOBULIN (test code = 3.3 G/DL 2240) CALC A/G RATIO (test code = 1.5 RATIO 2234) BILIRUBIN, TOTAL (test code = 0.8 MG/DL 2206) ALKALINE PHOSPHATASE (test 69 U/L code = 2204) AST (test code = 2218) 38 U/L ALT (test code = 2219) 37 U/L [id number] 00:00:00 Test Item Value Reference Range Interpretation Comments TSH, THIRD GENERATION (test code 6.320 UIU/ML = 2821) [id number] 00:00:00 Test Item Value Reference Range Interpretation Comments TSH, THIRD GENERATION (test code 6.320 UIU/ML = 2821) [id number] 00:00:00 Test Item Value Reference Range Interpretation Comments TSH, THIRD GENERATION (test code 6.320 UIU/ML = 2821) LIPID [id number] 00:00:00 Test Item Value Reference Range Interpretation Comments CHOLESTEROL (test code = 2210) 247 MG/DL TRIGLYCERIDES (test code = 2232) 265 MG/DL HDL CHOLESTEROL (test code = 2220) 107 MG/DL CALC LDL CHOL (test code = 2237) 102 MG/DL RISK RATIO LDL/HDL (test code = 0.95 RATIO 2238) LIPID [id number] 00:00:00 Test Item Value Reference Range Interpretation Comments CHOLESTEROL (test code = 2210) 247 MG/DL TRIGLYCERIDES (test code = 2232) 265 MG/DL HDL CHOLESTEROL (test code = 2220) 107 MG/DL CALC LDL CHOL (test code = 2237) 102 MG/DL RISK RATIO LDL/HDL (test code = 0.95 RATIO 2238) COMPREHENSIVE METABOLIC [id number] 00:00:00 Test Item Value Reference Range Interpretation Comments GLUCOSE (test code = 2217) 109 MG/DL BUN (test code = 2208) 27 MG/DL CREATININE (test code = 2214) 1.82 MG/DL eGFR (2020 CKD-EPI) (test code 31 ML/MIN/1.73 = 92378) CALC BUN/CREAT (test code = 15 RATIO [...] CALC GLOBULIN (test code = 3.3 G/DL 0) CALC A/G RATIO (test code = 1.5 RATIO 2233) BILIRUBIN, TOTAL (test code = 0.8 MG/DL 2206) ALKALINE PHOSPHATASE (test 69 U/L code = 2204) AST (test code = 2218) 38 U/L ALT (test code = 2219) 37 U/L COMPREHENSIVE METABOLIC [id number] 00:00:00 Test Item Value Reference Range Interpretation Comments GLUCOSE (test code = 2217) 109 MG/DL BUN (test code = 2208) 27 MG/DL CREATININE (test code = 2214) 1.82 MG/DL eGFR (2020 CKD-EPI) (test code 31 ML/MIN/1.73 = 68180) CALC BUN/CREAT (test code = 15 RATIO 2234) SODIUM (test code = 2231) 136 MEQ/L [...] ALKALINE PHOSPHATASE (test 69 U/L code = 220) AST (test code = 2218) 38 U/L ALT (test code = 2219) 37 U/L [id number] 00:00:00 Test Item Value Reference Range Interpretation Comments TSH, THIRD GENERATION (test code 6.320 UIU/ML = 2821) [id number] 00:00:00 Test Item Value Reference Range Interpretation Comments TSH, THIRD GENERATION (test code 6.320 UIU/ML = 2821) [id number] 00:00:00 Test Item Value Reference Range Interpretation Comments TSH, THIRD GENERATION (test code 6.320 UIU/ML = 2821) LIPID [id number] 00:00:00 Test Item Value Reference Range Interpretation Comments CHOLESTEROL (test code = 2210) 247 MG/DL TRIGLYCERIDES (test code = 2232) 265 MG/DL HDL CHOLESTEROL (test code = 2220) 107 MG/DL CALC LDL CHOL (test code = 2237) 102 MG/DL RISK RATIO LDL/HDL (test code = 0.95 RATIO 8) LIPID [id number] 00:00:00 Test Item Value Reference Range Interpretation Comments CHOLESTEROL (test code = 2210) 247 MG/DL TRIGLYCERIDES (test code = 2232) 265 MG/DL HDL CHOLESTEROL (test code = 2220) 107 MG/DL CALC LDL CHOL (test code = 2237) 102 MG/DL RISK RATIO LDL/HDL (test code = 0.95 RATIO 2238) COMPREHENSIVE METABOLIC [id number] 00:00:00 Test Item Value Reference Range Interpretation Comments GLUCOSE (test code = 2217) 109 MG/DL BUN (test code = 2208) 27 MG/DL CREATININE (test code = 2214) 1.82 MG/DL eGFR (2020 CKD-EPI) (test code 31 ML/MIN/1.73 = 96125) CALC BUN/CREAT (test code = 15 RATIO [...] code = 2219) 37 U/L COMPREHENSIVE METABOLIC [id number] 00:00:00 Test Item Value Reference Range Interpretation Comments GLUCOSE (test code = 2217) 109 MG/DL BUN (test code = 2208) 27 MG/DL CREATININE (test code = 2214) 1.82 MG/DL eGFR (2020 CKD-EPI) (test code 31 ML/MIN/1.73 = 13763) CALC BUN/CREAT (test code = 15 RATIO [...] CALC GLOBULIN (test code = 3.3 G/DL 2240) CALC A/G RATIO (test code = 1.5 RATIO 4) BILIRUBIN, TOTAL (test code = 0.8 MG/DL 2206) ALKALINE PHOSPHATASE (test 69 U/L code = 2204) AST (test code = 2218) 38 U/L ALT (test code = 2219) 37 U/L [id number] 00:00:00 Test Item Value Reference Range Interpretation Comments TSH, THIRD GENERATION (test code 6.320 UIU/ML = 2821) [id number] 00:00:00 Test Item Value Reference Range Interpretation Comments TSH, THIRD GENERATION (test code 6.320 UIU/ML = 2821) [id number] 00:00:00 Test Item Value Reference Range Interpretation Comments TSH, THIRD GENERATION (test code 6.320 UIU/ML = 2821) HEMOGLOBIN [id number] 03:29:50 Test Item Value Reference Range Interpretation Comments HEMOGLOBIN A1c (test code = 72066) 6.3 % 4.2-5.6 H CBC W/AUTO DIFF WITH [id number] 03:01:52 Test Item Value Reference Range Interpretation [...] message] code = 1065) WBC'S The system [employer] generated this result transmitted ref erence range: [...] 0.00-0.11 UNLESS O THERWISE (test code = 78032) INDICATE D, ALL TESTING PERFORM ED ATCLINICAL PATH [facility], [facility]. [address] [place] [id number] [place] [address] DIRECTOR: SHADY ACKERMAN M.D. CLIA NUMBER [id number] CAP ACCREDITATION N O. [id number] HEMOGLOBIN [id number] 00:00:00 Test Item Value Reference Range Interpretation Comments HEMOGLOBIN A1c (test code = 94007) 6.3 % HEMOGLOBIN [id number] 00:00:00 Test Item Value Reference Range Interpretation Comments HEMOGLOBIN A1c (test code = 32723) 6.3 % HEMOGLOBIN [id number] 00:00:00 Test Item Value Reference Range Interpretation Comments HEMOGLOBIN A1c (test code = 99197) 6.3 % CBC W/AUTO [id number] 00:00:00 Test Item Value Reference Range Interpretation [...] NUCLEATED RBCS (test code = 0.00 K/UL 68666) CBC W/AUTO [id number] 00:00:00 Test Item Value Reference Range Interpretation [...] NUCLEATED RBCS (test code = 0.00 K/UL 95833) CBC W/AUTO [id number] 00:00:00 Test Item Value Reference Range Interpretation [...] NUCLEATED RBCS (test code = 0.00 K/UL 43631) HEMOGLOBIN [id number] 00:00:00 Test Item Value Reference Range Interpretation Comments HEMOGLOBIN A1c (test code = 66327) 6.3 % HEMOGLOBIN [id number] 00:00:00 Test Item Value Reference Range Interpretation Comments HEMOGLOBIN A1c (test code = 83170) 6.3 % HEMOGLOBIN [id number] 00:00:00 Test Item Value Reference Range Interpretation Comments HEMOGLOBIN A1c (test code = 96811) 6.3 % CBC W/AUTO [id number] 00:00:00 Test Item Value Reference Range Interpretation [...] NUCLEATED RBCS (test code = 0.00 K/UL 25809) CBC W/AUTO [id number] 00:00:00 Test Item Value Reference Range Interpretation [...] NUCLEATED RBCS (test code = 0.00 K/UL 17564) CBC W/AUTO [id number] 00:00:00 Test Item Value Reference Range Interpretation [...] NUCLEATED RBCS (test code = 0.00 K/UL 26592) HEMOGLOBIN [id number] 00:00:00 Test Item Value Reference Range Interpretation Comments HEMOGLOBIN A1c (test code = 96962) 6.3 % HEMOGLOBIN [id number] 00:00:00 Test Item Value Reference Range Interpretation Comments HEMOGLOBIN A1c (test code = 38123) 6.3 % HEMOGLOBIN [id number] 00:00:00 Test Item Value Reference Range Interpretation Comments HEMOGLOBIN A1c (test code = 68253) 6.3 % CBC W/AUTO [id number] 00:00:00 Test Item Value Reference Range Interpretation [...] NUCLEATED RBCS (test code = 0.00 K/UL 60951) CBC W/AUTO [id number] 00:00:00 Test Item Value Reference Range Interpretation [...] NUCLEATED RBCS (test code = 0.00 K/UL 74766) CBC W/AUTO [id number] 00:00:00 Test Item Value Reference Range Interpretation [...] NUCLEATED RBCS (test code = 0.00 K/UL 37694) COMPREHENSIVE METABOLIC [id number] 00:00:00 Test Item Value Reference Range Interpretation Comments GLUCOSE (test code = 2217) 195 MG/DL BUN (test code = 2208) 15 MG/DL CREATININE (test code = 2214) 0.70 MG/DL eGFR AMER. (test code 108 ML/MIN/1.73 = 39896) eGFR NON- AMER. (test 93 ML/MIN/1.73 code = 29811) CALC BUN/CREAT (test code = 21 RATIO 2235) SODIUM (test code = 2231) 136 MEQ/L POTASSIUM (test code = 2228) 3.9 MEQ/L CHLORIDE (test code = 2215) 97 MEQ/L CARBON DIOXIDE (test code = 24 MEQ/L 2206) CALCIUM (test code = 2209) 10.2 MG/DL PROTEIN, TOTAL (test code = 7.3 G/DL 222) ALBUMIN (test code = 2201) 4.6 G/DL CALC GLOBULIN (test code = 2.7 G/DL 2240) CALC A/G RATIO (test code = 1.7 RATIO 2234) BILIRUBIN, TOTAL (test code = 0.4 MG/DL 220) ALKALINE PHOSPHATASE (test 63 U/L code = 2204) AST (test code = 2218) 16 U/L ALT (test code = 2219) 13 U/L COMPREHENSIVE METABOLIC [id number] 00:00:00 Test Item Value Reference Range Interpretation Comments GLUCOSE (test code = 2217) 195 MG/DL BUN (test code = 2208) 15 MG/DL CREATININE (test code = 2214) 0.70 MG/DL eGFR AMER. (test code 108 ML/MIN/1.73 = 27645) eGFR NON- AMER. (test 93 ML/MIN/1.73 code = 83950) CALC BUN/CREAT (test code = 21 RATIO [...] (test code = 2219) 13 U/L LIPID [id number] 00:00:00 Test Item Value Reference Range Interpretation Comments CHOLESTEROL (test code = 2210) 257 MG/DL TRIGLYCERIDES (test code = 2232) 189 MG/DL HDL CHOLESTEROL (test code = 2220) 49 MG/DL CALC LDL CHOL (test code = 2237) 174 MG/DL RISK RATIO LDL/HDL (test code = 3.55 RATIO 2238) LIPID [id number] 00:00:00 Test Item Value Reference Range Interpretation Comments CHOLESTEROL (test code = 2210) 257 MG/DL TRIGLYCERIDES (test code = 2232) 189 MG/DL HDL CHOLESTEROL (test code = 2220) 49 MG/DL CALC LDL CHOL (test code = 2237) 174 MG/DL RISK RATIO LDL/HDL (test code = 3.55 RATIO 2238) HEMOGLOBIN [id number] 00:00:00 Test Item Value Reference Range Interpretation Comments HEMOGLOBIN A1c (test code = 57549) 9.2 % HEMOGLOBIN [id number] 00:00:00 Test Item Value Reference Range Interpretation Comments HEMOGLOBIN A1c (test code = 84843) 9.2 % HEMOGLOBIN [id number] 00:00:00 Test Item Value Reference Range Interpretation Comments HEMOGLOBIN A1c (test code = 50596) 9.2 % COMPREHENSIVE METABOLIC [id number] 00:00:00 Test Item Value Reference Range Interpretation Comments GLUCOSE (test code = 2217) 195 MG/DL BUN (test code = 2208) 15 MG/DL CREATININE (test code = 2214) 0.70 MG/DL eGFR AMER. (test code 108 ML/MIN/1.73 = 08751) eGFR NON- AMER. (test 93 ML/MIN/1.73 code = 51222) CALC BUN/CREAT (test code = 21 RATIO [...] code = 2219) 13 U/L COMPREHENSIVE METABOLIC [id number] 00:00:00 Test Item Value Reference Range Interpretation Comments GLUCOSE (test code = 2217) 195 MG/DL BUN (test code = 2208) 15 MG/DL CREATININE (test code = 2214) 0.70 MG/DL eGFR AMER. (test code 108 ML/MIN/1.73 = 44061) eGFR NON- AMER. (test 93 ML/MIN/1.73 code = 67716) CALC BUN/CREAT (test code = 21 RATIO [...] (test code = 2219) 13 U/L LIPID [id number] 00:00:00 Test Item Value Reference Range Interpretation Comments CHOLESTEROL (test code = 2210) 257 MG/DL TRIGLYCERIDES (test code = 2232) 189 MG/DL HDL CHOLESTEROL (test code = 2220) 49 MG/DL CALC LDL CHOL (test code = 2237) 174 MG/DL RISK RATIO LDL/HDL (test code = 3.55 RATIO 2238) LIPID [id number] 00:00:00 Test Item Value Reference Range Interpretation Comments CHOLESTEROL (test code = 2210) 257 MG/DL TRIGLYCERIDES (test code = 2232) 189 MG/DL HDL CHOLESTEROL (test code = 2220) 49 MG/DL CALC LDL CHOL (test code = 2237) 174 MG/DL RISK RATIO LDL/HDL (test code = 3.55 RATIO 2238) HEMOGLOBIN [id number] 00:00:00 Test Item Value Reference Range Interpretation Comments HEMOGLOBIN A1c (test code = 04488) 9.2 % HEMOGLOBIN [id number] 00:00:00 Test Item Value Reference Range Interpretation Comments HEMOGLOBIN A1c (test code = 53245) 9.2 % HEMOGLOBIN [id number] 00:00:00 Test Item Value Reference Range Interpretation Comments HEMOGLOBIN A1c (test code = 70330) 9.2 % COMPREHENSIVE METABOLIC [id number] 00:00:00 Test Item Value Reference Range Interpretation Comments GLUCOSE (test code = 2217) 195 MG/DL BUN (test code = 2208) 15 MG/DL CREATININE (test code = 2214) 0.70 MG/DL eGFR AMER. (test code 108 ML/MIN/1.73 = 38141) eGFR NON- AMER. (test 93 ML/MIN/1.73 code = 17309) CALC BUN/CREAT (test code = 21 RATIO [...] code = 2219) 13 U/L COMPREHENSIVE METABOLIC [id number] 00:00:00 Test Item Value Reference Range Interpretation Comments GLUCOSE (test code = 2217) 195 MG/DL BUN (test code = 2208) 15 MG/DL CREATININE (test code = 2214) 0.70 MG/DL eGFR AMER. (test code 108 ML/MIN/1.73 = 77656) eGFR NON- AMER. (test 93 ML/MIN/1.73 code = 84000) CALC BUN/CREAT (test code = 21 RATIO [...] (test code = 2219) 13 U/L LIPID [id number] 00:00:00 Test Item Value Reference Range Interpretation Comments CHOLESTEROL (test code = 2210) 257 MG/DL TRIGLYCERIDES (test code = 2232) 189 MG/DL HDL CHOLESTEROL (test code = 2220) 49 MG/DL CALC LDL CHOL (test code = 2237) 174 MG/DL RISK RATIO LDL/HDL (test code = 3.55 RATIO 2238) LIPID [id number] 00:00:00 Test Item Value Reference Range Interpretation Comments CHOLESTEROL (test code = 2210) 257 MG/DL TRIGLYCERIDES (test code = 2232) 189 MG/DL HDL CHOLESTEROL (test code = 2220) 49 MG/DL CALC LDL CHOL (test code = 2237) 174 MG/DL RISK RATIO LDL/HDL (test code = 3.55 RATIO 2238) HEMOGLOBIN [id number] 00:00:00 Test Item Value Reference Range Interpretation Comments HEMOGLOBIN A1c (test code = 90452) 9.2 % HEMOGLOBIN [id number] 00:00:00 Test Item Value Reference Range Interpretation Comments HEMOGLOBIN A1c (test code = 08186) 9.2 % HEMOGLOBIN [id number] 00:00:00 Test Item Value Reference Range Interpretation Comments HEMOGLOBIN A1c (test code = 56603) 9.2 % COMPREHENSIVE METABOLIC [id number] 00:00:00 Test Item Value Reference Range Interpretation Comments GLUCOSE (test code = 2217) 199 MG/DL BUN (test code = 2208) 16 MG/DL CREATININE (test code = 2214) 0.85 MG/DL eGFR AMER. (test code 86 ML/MIN/1.73 = 53760) eGFR NON- AMER. (test 74 ML/MIN/1.73 code = 68433) CALC BUN/CREAT (test code = 19 RATIO [...] CALC GLOBULIN (test code = 3.2 G/DL 2239) CALC A/G RATIO (test code = 1.5 RATIO 4) BILIRUBIN, TOTAL (test code = 0.5 MG/DL 2206) ALKALINE PHOSPHATASE (test 118 U/L code = 2204) AST (test code = 2218) 18 U/L ALT (test code = 2219) 22 U/L COMPREHENSIVE METABOLIC [id number] 00:00:00 Test Item Value Reference Range Interpretation Comments GLUCOSE (test code = 2217) 199 MG/DL BUN (test code = 2208) 16 MG/DL CREATININE (test code = 2214) 0.85 MG/DL eGFR AMER. (test code 86 ML/MIN/1.73 = 79775) eGFR NON- AMER. (test 74 ML/MIN/1.73 code = 78667) CALC BUN/CREAT (test code = 19 RATIO [...] (test code = 2219) 22 U/L LIPID [id number] 00:00:00 Test Item Value Reference Range Interpretation Comments CHOLESTEROL (test code = 2210) 244 MG/DL TRIGLYCERIDES (test code = 2232) 226 MG/DL HDL CHOLESTEROL (test code = 2220) 57 MG/DL CALC LDL CHOL (test code = 2237) 151 MG/DL RISK RATIO LDL/HDL (test code = 2.65 RATIO 2238) LIPID [id number] 00:00:00 Test Item Value Reference Range Interpretation Comments CHOLESTEROL (test code = 2210) 244 MG/DL TRIGLYCERIDES (test code = 2232) 226 MG/DL HDL CHOLESTEROL (test code = 2220) 57 MG/DL CALC LDL CHOL (test code = 2237) 151 MG/DL RISK RATIO LDL/HDL (test code = 2.65 RATIO 2238) HEMOGLOBIN [id number] 00:00:00 Test Item Value Reference Range Interpretation Comments HEMOGLOBIN A1c (test code = 88574) 7.0 % HEMOGLOBIN [id number] 00:00:00 Test Item Value Reference Range Interpretation Comments HEMOGLOBIN A1c (test code = 87321) 7.0 % HEMOGLOBIN [id number] 00:00:00 Test Item Value Reference Range Interpretation Comments HEMOGLOBIN A1c (test code = 17001) 7.0 % COMPREHENSIVE METABOLIC [id number] 00:00:00 Test Item Value Reference Range Interpretation Comments GLUCOSE (test code = 2217) 199 MG/DL BUN (test code = 2208) 16 MG/DL CREATININE (test code = 2214) 0.85 MG/DL eGFR AMER. (test code 86 ML/MIN/1.73 = 42097) eGFR NON- AMER. (test 74 ML/MIN/1.73 code = 75831) CALC BUN/CREAT (test code = 19 RATIO 2235) SODIUM (test code = 2231) 138 MEQ/L POTASSIUM (test code = 2228) 4.1 MEQ/L CHLORIDE (test code = 2215) 98 MEQ/L CARBON DIOXIDE (test code = 24 MEQ/L 6) CALCIUM (test code = 2209) 10.2 MG/DL [...] code = 2219) 22 U/L COMPREHENSIVE METABOLIC [id number] 00:00:00 Test Item Value Reference Range Interpretation Comments GLUCOSE (test code = 2217) 199 MG/DL BUN (test code = 2208) 16 MG/DL CREATININE (test code = 2214) 0.85 MG/DL eGFR AMER. (test code 86 ML/MIN/1.73 = 67878) eGFR NON- AMER. (test 74 ML/MIN/1.73 code = 21165) CALC BUN/CREAT (test code = 19 RATIO [...] (test code = 2219) 22 U/L LIPID [id number] 00:00:00 Test Item Value Reference Range Interpretation Comments CHOLESTEROL (test code = 2210) 244 MG/DL TRIGLYCERIDES (test code = 2232) 226 MG/DL HDL CHOLESTEROL (test code = 2220) 57 MG/DL CALC LDL CHOL (test code = 2237) 151 MG/DL RISK RATIO LDL/HDL (test code = 2.65 RATIO 2238) LIPID [id number] 00:00:00 Test Item Value Reference Range Interpretation Comments CHOLESTEROL (test code = 2210) 244 MG/DL TRIGLYCERIDES (test code = 2232) 226 MG/DL HDL CHOLESTEROL (test code = 2220) 57 MG/DL CALC LDL CHOL (test code = 2237) 151 MG/DL RISK RATIO LDL/HDL (test code = 2.65 RATIO 2238) HEMOGLOBIN [id number] 00:00:00 Test Item Value Reference Range Interpretation Comments HEMOGLOBIN A1c (test code = 47886) 7.0 % HEMOGLOBIN [id number] 00:00:00 Test Item Value Reference Range Interpretation Comments HEMOGLOBIN A1c (test code = 84530) 7.0 % HEMOGLOBIN [id number] 00:00:00 Test Item Value Reference Range Interpretation Comments HEMOGLOBIN A1c (test code = 28310) 7.0 % COMPREHENSIVE METABOLIC [id number] 00:00:00 Test Item Value Reference Range Interpretation Comments GLUCOSE (test code = 2217) 199 MG/DL BUN (test code = 2208) 16 MG/DL CREATININE (test code = 2214) 0.85 MG/DL eGFR AMER. (test code 86 ML/MIN/1.73 = 49725) eGFR NON- AMER. (test 74 ML/MIN/1.73 code = 31686) CALC BUN/CREAT (test code = 19 RATIO [...] code = 2219) 22 U/L COMPREHENSIVE METABOLIC [id number] 00:00:00 Test Item Value Reference Range Interpretation Comments GLUCOSE (test code = 2217) 199 MG/DL BUN (test code = 2208) 16 MG/DL CREATININE (test code = 2214) 0.85 MG/DL eGFR AMER. (test code 86 ML/MIN/1.73 = 55943) eGFR NON- AMER. (test 74 ML/MIN/1.73 code = 98510) CALC BUN/CREAT (test code = 19 RATIO [...] (test code = 2219) 22 U/L LIPID [id number] 00:00:00 Test Item Value Reference Range Interpretation Comments CHOLESTEROL (test code = 2210) 244 MG/DL TRIGLYCERIDES (test code = 2232) 226 MG/DL HDL CHOLESTEROL (test code = 2220) 57 MG/DL CALC LDL CHOL (test code = 2237) 151 MG/DL RISK RATIO LDL/HDL (test code = 2.65 RATIO 2238) LIPID [id number] 00:00:00 Test Item Value Reference Range Interpretation Comments CHOLESTEROL (test code = 2210) 244 MG/DL TRIGLYCERIDES (test code = 2232) 226 MG/DL HDL CHOLESTEROL (test code = 2220) 57 MG/DL CALC LDL CHOL (test code = 2237) 151 MG/DL RISK RATIO LDL/HDL (test code = 2.65 RATIO 2238) HEMOGLOBIN [id number] 00:00:00 Test Item Value Reference Range Interpretation Comments HEMOGLOBIN A1c (test code = 09020) 7.0 % HEMOGLOBIN [id number] 00:00:00 Test Item Value Reference Range Interpretation Comments HEMOGLOBIN A1c (test code = 83152) 7.0 % HEMOGLOBIN [id number] 00:00:00 Test Item Value Reference Range Interpretation Comments HEMOGLOBIN A1c (test code = 91796) 7.0 % SURGICAL PATHOLOGY [id number] 00:00:00 Test Item Value Reference Range Interpretation Comments DIAGNOSIS: (test code = 8200) (NOTE) COMMENTS: (test code = 8205) (NOTE) MICROSCOPIC DESCRIPTION: (test code = (NOTE) 8210) CLINICAL DATA: (test code = 8401) (NOTE) GROSS DESCRIPTION: (test code = 8220) (NOTE) PATHOLOGIST: (test code = 8250) (NOTE) CPT: (test code = 8400) (NOTE) SURGICAL PATHOLOGY [id number] 00:00:00 Test Item Value Reference Range Interpretation Comments DIAGNOSIS: (test code = 8200) (NOTE) COMMENTS: (test code = 8205) (NOTE) MICROSCOPIC DESCRIPTION: (test code = (NOTE) 8210) CLINICAL DATA: (test code = 8401) (NOTE) GROSS DESCRIPTION: (test code = 8220) (NOTE) PATHOLOGIST: (test code = 8250) (NOTE) CPT: (test code = 8400) (NOTE) SURGICAL PATHOLOGY [id number] 00:00:00 Test Item Value Reference Range Interpretation Comments DIAGNOSIS: (test code = 8200) (NOTE) COMMENTS: (test code = 8205) (NOTE) MICROSCOPIC DESCRIPTION: (test code = (NOTE) 8210) CLINICAL DATA: (test code = 8401) (NOTE) GROSS DESCRIPTION: (test code = 8220) (NOTE) PATHOLOGIST: (test code = 8250) (NOTE) CPT: (test code = 8400) (NOTE) SURGICAL PATHOLOGY [id number] 00:00:00 Test Item Value Reference Range Interpretation Comments DIAGNOSIS: (test code = 8200) (NOTE) COMMENTS: (test code = 8205) (NOTE) MICROSCOPIC DESCRIPTION: (test code = (NOTE) 8210) CLINICAL DATA: (test code = 8401) (NOTE) GROSS DESCRIPTION: (test code = 8220) (NOTE) PATHOLOGIST: (test code = 8250) (NOTE) CPT: (test code = 8400) (NOTE) SURGICAL PATHOLOGY [id number] 00:00:00 Test Item Value Reference Range Interpretation Comments DIAGNOSIS: (test code = 8200) (NOTE) COMMENTS: (test code = 8205) (NOTE) MICROSCOPIC DESCRIPTION: (test code = (NOTE) 8210) CLINICAL DATA: (test code = 8401) (NOTE) GROSS DESCRIPTION: (test code = 8220) (NOTE) PATHOLOGIST: (test code = 8250) (NOTE) CPT: (test code = 8400) (NOTE) SURGICAL PATHOLOGY [id number] 00:00:00 Test Item Value Reference Range Interpretation Comments DIAGNOSIS: (test code = 8200) (NOTE) COMMENTS: (test code = 8205) (NOTE) MICROSCOPIC DESCRIPTION: (test code = (NOTE) 8210) CLINICAL DATA: (test code = 8401) (NOTE) GROSS DESCRIPTION: (test code = 8220) (NOTE) PATHOLOGIST: (test code = 8250) (NOTE) CPT: (test code = 8400) (NOTE) SURGICAL PATHOLOGY [id number] 00:00:00 Test Item Value Reference Range Interpretation Comments DIAGNOSIS: (test code = 8200) (NOTE) COMMENTS: (test code = 8205) (NOTE) MICROSCOPIC DESCRIPTION: (test code = (NOTE) 8210) CLINICAL DATA: (test code = 8401) (NOTE) GROSS DESCRIPTION: (test code = 8220) (NOTE) PATHOLOGIST: (test code = 8250) (NOTE) CPT: (test code = 8400) (NOTE) SURGICAL PATHOLOGY [id number] 00:00:00 Test Item Value Reference Range Interpretation Comments DIAGNOSIS: (test code = 8200) (NOTE) COMMENTS: (test code = 8205) (NOTE) MICROSCOPIC DESCRIPTION: (test code = (NOTE) 8210) CLINICAL DATA: (test code = 8401) (NOTE) GROSS DESCRIPTION: (test code = 8220) (NOTE) PATHOLOGIST: (test code = 8250) (NOTE) CPT: (test code = 8400) (NOTE) SURGICAL PATHOLOGY [id number] 00:00:00 Test Item Value Reference Range Interpretation Comments DIAGNOSIS: (test code = 8200) (NOTE) COMMENTS: (test code = 8205) (NOTE) MICROSCOPIC DESCRIPTION: (test code = (NOTE) 8210) CLINICAL DATA: (test code = 8401) (NOTE) GROSS DESCRIPTION: (test code = 8220) (NOTE) PATHOLOGIST: (test code = 8250) (NOTE) CPT: (test code = 8400) (NOTE) SURGICAL PATHOLOGY [id number] 00:00:00 Test Item Value Reference Range Interpretation Comments DIAGNOSIS: (test code = 8200) (NOTE) COMMENTS: (test code = 8205) (NOTE) MICROSCOPIC DESCRIPTION: (test code = (NOTE) 8210) CLINICAL DATA: (test code = 8401) (NOTE) GROSS DESCRIPTION: (test code = 8220) (NOTE) PATHOLOGIST: (test code = 8250) (NOTE) CPT: (test code = 8400) (NOTE) SURGICAL PATHOLOGY [id number] 00:00:00 Test Item Value Reference Range Interpretation Comments DIAGNOSIS: (test code = 8200) (NOTE) COMMENTS: (test code = 8205) (NOTE) MICROSCOPIC DESCRIPTION: (test code = (NOTE) 8210) CLINICAL DATA: (test code = 8401) (NOTE) GROSS DESCRIPTION: (test code = 8220) (NOTE) PATHOLOGIST: (test code = 8250) (NOTE) CPT: (test code = 8400) (NOTE) SURGICAL PATHOLOGY [id number] 00:00:00 Test Item Value Reference Range Interpretation Comments DIAGNOSIS: (test code = 8200) (NOTE) COMMENTS: (test code = 8205) (NOTE) MICROSCOPIC DESCRIPTION: (test code = (NOTE) 8210) CLINICAL DATA: (test code = 8401) (NOTE) GROSS DESCRIPTION: (test code = 8220) (NOTE) PATHOLOGIST: (test code = 8250) (NOTE) CPT: (test code = 8400) (NOTE) PAP TEST, THINPREP, [id number] 00:00:00 Test Item Value Reference Range Interpretation Comments SOURCE: (test code = 8001) Cervical SLIDES: (test code = 8011) 1 LMP: (test code = 8021) 1998 SPECIMEN ADEQUACY: (test (NOTE) code = 63362) INTERPRETATION: (test code LSIL/EPITH. = 57225) ABNORMALITY; SEE BELOW OTHER COMMENTS: (test code (NOTE) = 8081) HONEY BLENDER: (test Elisha Cox, CT code = 8101) (ASCP) PATHOLOGIST INTERPRETATION Unique [employer] BY: (test code = 8122) LOCATION: (test code = (NOTE) 42001) CPT: (test code = 8140) (NOTE) PAP TEST, THINPREP, [id number] 00:00:00 Test Item Value Reference Range Interpretation Comments SOURCE: (test code = 8001) Cervical SLIDES: (test code = 8011) 1 LMP: (test code = 8021) 1998 SPECIMEN ADEQUACY: (test (NOTE) code = 19363) INTERPRETATION: (test code LSIL/EPITH. = 39271) ABNORMALITY; SEE BELOW OTHER COMMENTS: (test code (NOTE) = 8081) HONEY BLENDER: (test Elisha Cox, CT code = 8101) (ASCP) PATHOLOGIST INTERPRETATION [employer] BY: (test code = 8122) LOCATION: (test code = (NOTE) 42713) CPT: (test code = 8140) (NOTE) PAP TEST, THINPREP, [id number] 00:00:00 Test Item Value Reference Range Interpretation Comments SOURCE: (test code = 8001) Cervical SLIDES: (test code = 8011) 1 LMP: (test code = 8021) 1998 SPECIMEN ADEQUACY: (test (NOTE) code = 45549) INTERPRETATION: (test code LSIL/EPITH. = 31709) ABNORMALITY; SEE BELOW OTHER COMMENTS: (test code (NOTE) = 8081) HONEY BLENDER: (darrin Cox, CT code = 8101) (ASCP) PATHOLOGIST INTERPRETATION [employer] BY: (test code = 8122) LOCATION: (test code = (NOTE) 11681) CPT: (test code = 8140) (NOTE) PAP TEST, THINPREP, [id number] 00:00:00 Test Item Value Reference Range Interpretation Comments SOURCE: (test code = 8001) Cervical SLIDES: (test code = 8011) 1 LMP: (test code = 8021) 1998 SPECIMEN ADEQUACY: (test (NOTE) code = 58451) INTERPRETATION: (test code LSIL/EPITH. = 44708) ABNORMALITY; SEE BELOW OTHER COMMENTS: (test code (NOTE) = 8081) HONEY BLENDER: (test Elisha Cox CT code = 8101) (ASCP) PATHOLOGIST INTERPRETATION [employer] BY: (test code = 8122) LOCATION: (test code = (NOTE) 96509) CPT: (test code = 8140) (NOTE) PAP TEST, THINPREP, [id number] 00:00:00 Test Item Value Reference Range Interpretation Comments SOURCE: (test code = 8001) Cervical SLIDES: (test code = 8011) 1 LMP: (test code = 8021) 1998 SPECIMEN ADEQUACY: (test (NOTE) code = 70571) INTERPRETATION: (test code LSIL/EPITH. = 10099) ABNORMALITY; SEE BELOW OTHER COMMENTS: (test code (NOTE) = 8081) HONEY BLENDER: (test Elisha Cox CT code = 8101) (ASCP) PATHOLOGIST INTERPRETATION [employer] BY: (test code = 8122) LOCATION: (test code = (NOTE) 69477) CPT: (test code = 8140) (NOTE) PAP TEST, THINPREP, [id number] 00:00:00 Test Item Value Reference Range Interpretation Comments SOURCE: (test code = 8001) Cervical SLIDES: (test code = 8011) 1 LMP: (test code = 8021) 1998 SPECIMEN ADEQUACY: (test (NOTE) code = 47852) INTERPRETATION: (test code LSIL/EPITH. = 92222) ABNORMALITY; SEE BELOW OTHER COMMENTS: (test code (NOTE) = 8081) HONEY BLENDER: (test Elisha Cox, CT code = 8101) (ASCP) PATHOLOGIST INTERPRETATION [employer] BY: (test code = 8122) LOCATION: (test code = (NOTE) 78880) CPT: (test code = 8140) (NOTE) VAGINAL PATHOGENS DNA [id number] 00:00:00 Test Item Value Reference Range Interpretation Comments KEELY SPECIES (test code = ) NEGATIVE G. VAGINALIS (test code = 71348) POSITIVE T. VAGINALIS (test code = 17624) NEGATIVE VAGINAL PATHOGENS DNA [id number] 00:00:00 Test Item Value Reference Range Interpretation Comments KEELY SPECIES (test code = ) NEGATIVE G. VAGINALIS (test code = 35326) POSITIVE T. VAGINALIS (test code = 61809) NEGATIVE HPV HIGH RISK WITH GENOTYPE, [id number] 00:00:00 Test Item Value Reference Range Interpretation Comments HPV HIGH RISK INTERP (test code = POSITIVE 04542) HPV 16 (test code = 37581) NEGATIVE HPV 18 (test code = 42334) POSITIVE HPV, HR, OTHER GENOTYPES (test code POSITIVE = 01345) HPV HIGH RISK WITH GENOTYPE, [id number] 00:00:00 Test Item Value Reference Range Interpretation Comments HPV HIGH RISK INTERP (test code = POSITIVE 80681) HPV 16 (test code = 10330) NEGATIVE HPV 18 (test code = 36302) POSITIVE HPV, HR, OTHER GENOTYPES (test code POSITIVE = 23319) VAGINAL PATHOGENS DNA [id number] 00:00:00 Test Item Value Reference Range Interpretation Comments KEELY SPECIES (test code = ) NEGATIVE G. VAGINALIS (test code = 23635) POSITIVE T. VAGINALIS (test code = 69100) NEGATIVE VAGINAL PATHOGENS DNA [id number] 00:00:00 Test Item Value Reference Range Interpretation Comments KEELY SPECIES (test code = 50103) NEGATIVE G. VAGINALIS (test code = 24516) POSITIVE T. VAGINALIS (test code = 33033) NEGATIVE HPV HIGH RISK WITH GENOTYPE, [id number] 00:00:00 Test Item Value Reference Range Interpretation Comments HPV HIGH RISK INTERP (test code = POSITIVE 23919) HPV 16 (test code = 56150) NEGATIVE HPV 18 (test code = 90118) POSITIVE HPV, HR, OTHER GENOTYPES (test code POSITIVE = 93329) HPV HIGH RISK WITH GENOTYPE, [id number] 00:00:00 Test Item Value Reference Range Interpretation Comments HPV HIGH RISK INTERP (test code = POSITIVE 46411) HPV 16 (test code = 60087) NEGATIVE HPV 18 (test code = 87522) POSITIVE HPV, HR, OTHER GENOTYPES (test code POSITIVE = 04307) VAGINAL PATHOGENS DNA [id number] 00:00:00 Test Item Value Reference Range Interpretation Comments KEELY SPECIES (test code = ) NEGATIVE G. VAGINALIS (test code = ) POSITIVE T. VAGINALIS (test code = ) NEGATIVE VAGINAL PATHOGENS DNA [id number] 00:00:00 Test Item Value Reference Range Interpretation Comments KEELY SPECIES (test code = ) NEGATIVE G. VAGINALIS (test code = 63910) POSITIVE T. VAGINALIS (test code = ) NEGATIVE HPV HIGH RISK WITH GENOTYPE, [id number] 00:00:00 Test Item Value Reference Range Interpretation Comments HPV HIGH RISK INTERP (test code = POSITIVE 25091) HPV 16 (test code = 36106) NEGATIVE HPV 18 (test code = 87376) POSITIVE HPV, HR, OTHER GENOTYPES (test code POSITIVE = 74627) HPV HIGH RISK WITH GENOTYPE, [id number] 00:00:00 Test Item Value Reference Range Interpretation Comments HPV HIGH RISK INTERP (test code = POSITIVE 68997) HPV 16 (test code = 47849) NEGATIVE HPV 18 (test code = 04424) POSITIVE HPV, HR, OTHER GENOTYPES (test code POSITIVE = 41282) HEMOGLOBIN [id number] 00:00:00 Test Item Value Reference Range Interpretation Comments HEMOGLOBIN A1c (test code = 89716) 6.1 % HEMOGLOBIN [id number] 00:00:00 Test Item Value Reference Range Interpretation Comments HEMOGLOBIN A1c (test code = 42640) 6.1 % HEMOGLOBIN [id number] 00:00:00 Test Item Value Reference Range Interpretation Comments HEMOGLOBIN A1c (test code = 33344) 6.1 % LIPID [id number] 00:00:00 Test Item Value Reference Range Interpretation Comments CHOLESTEROL (test code = 2210) 252 MG/DL TRIGLYCERIDES (test code = 2232) 611 MG/DL HDL CHOLESTEROL (test code = 65 MG/DL 2220) CALC LDL CHOL (test code = 2237) (NOTE) MG/DL RISK RATIO LDL/HDL (test code = (NOTE) RATIO 2238) LIPID [id number] 00:00:00 Test Item Value Reference Range Interpretation Comments CHOLESTEROL (test code = 2210) 252 MG/DL TRIGLYCERIDES (test code = 2232) 611 MG/DL HDL CHOLESTEROL (test code = 65 MG/DL 2220) CALC LDL CHOL (test code = 2237) (NOTE) MG/DL RISK RATIO LDL/HDL (test code = (NOTE) RATIO 2238) COMPREHENSIVE METABOLIC [id number] 00:00:00 Test Item Value Reference Range Interpretation Comments GLUCOSE (test code = 2217) 121 MG/DL BUN (test code = 2208) 27 MG/DL CREATININE (test code = 2214) 1.49 MG/DL eGFR AMER. (test code 43 ML/MIN/1.73 = 05970) eGFR NON- AMER. (test 38 ML/MIN/1.73 code = 02249) CALC BUN/CREAT (test code = 18 RATIO [...] code = 2219) 43 U/L COMPREHENSIVE METABOLIC [id number] 00:00:00 Test Item Value Reference Range Interpretation Comments GLUCOSE (test code = 2217) 121 MG/DL BUN (test code = 2208) 27 MG/DL CREATININE (test code = 2214) 1.49 MG/DL eGFR AMER. (test code 43 ML/MIN/1.73 = 61434) eGFR NON- AMER. (test 38 ML/MIN/1.73 code = 89668) CALC BUN/CREAT (test code = 18 RATIO [...] ALKALINE PHOSPHATASE (test 97 U/L code = 2203) AST (test code = 2218) 50 U/L ALT (test code = 2219) 43 U/L HEMOGLOBIN [id number] 00:00:00 Test Item Value Reference Range Interpretation Comments HEMOGLOBIN A1c (test code = 44063) 6.1 % HEMOGLOBIN [id number] 00:00:00 Test Item Value Reference Range Interpretation Comments HEMOGLOBIN A1c (test code = 13505) 6.1 % HEMOGLOBIN [id number] 00:00:00 Test Item Value Reference Range Interpretation Comments HEMOGLOBIN A1c (test code = 91111) 6.1 % LIPID [id number] 00:00:00 Test Item Value Reference Range Interpretation Comments CHOLESTEROL (test code = 2210) 252 MG/DL TRIGLYCERIDES (test code = 2232) 611 MG/DL HDL CHOLESTEROL (test code = 65 MG/DL 0) CALC LDL CHOL (test code = 2237) (NOTE) MG/DL RISK RATIO LDL/HDL (test code = (NOTE) RATIO 2238) LIPID [id number] 00:00:00 Test Item Value Reference Range Interpretation Comments CHOLESTEROL (test code = 2210) 252 MG/DL TRIGLYCERIDES (test code = 2232) 611 MG/DL HDL CHOLESTEROL (test code = 65 MG/DL 0) CALC LDL CHOL (test code = 2237) (NOTE) MG/DL RISK RATIO LDL/HDL (test code = (NOTE) RATIO 2238) COMPREHENSIVE METABOLIC [id number] 00:00:00 Test Item Value Reference Range Interpretation Comments GLUCOSE (test code = 2217) 121 MG/DL BUN (test code = 2208) 27 MG/DL CREATININE (test code = 2214) 1.49 MG/DL eGFR AMER. (test code 43 ML/MIN/1.73 = 75950) eGFR NON- AMER. (test 38 ML/MIN/1.73 code = 90287) CALC BUN/CREAT (test code = 18 RATIO [...] code = 2219) 43 U/L COMPREHENSIVE METABOLIC [id number] 00:00:00 Test Item Value Reference Range Interpretation Comments GLUCOSE (test code = 2217) 121 MG/DL BUN (test code = 2208) 27 MG/DL CREATININE (test code = 2214) 1.49 MG/DL eGFR AMER. (test code 43 ML/MIN/1.73 = 58353) eGFR NON- AMER. (test 38 ML/MIN/1.73 code = 36504) CALC BUN/CREAT (test code = 18 RATIO [...] (test code = 2219) 43 U/L HEMOGLOBIN [id number] 00:00:00 Test Item Value Reference Range Interpretation Comments HEMOGLOBIN A1c (test code = 73848) 6.1 % HEMOGLOBIN [id number] 00:00:00 Test Item Value Reference Range Interpretation Comments HEMOGLOBIN A1c (test code = 55149) 6.1 % HEMOGLOBIN [id number] 00:00:00 Test Item Value Reference Range Interpretation Comments HEMOGLOBIN A1c (test code = 56570) 6.1 % LIPID [id number] 00:00:00 Test Item Value Reference Range Interpretation Comments CHOLESTEROL (test code = 2210) 252 MG/DL TRIGLYCERIDES (test code = 2232) 611 MG/DL HDL CHOLESTEROL (test code = 65 MG/DL 2220) CALC LDL CHOL (test code = 2237) (NOTE) MG/DL RISK RATIO LDL/HDL (test code = (NOTE) RATIO 2238) LIPID [id number] 00:00:00 Test Item Value Reference Range Interpretation Comments CHOLESTEROL (test code = 2210) 252 MG/DL TRIGLYCERIDES (test code = 2232) 611 MG/DL HDL CHOLESTEROL (test code = 65 MG/DL 2220) CALC LDL CHOL (test code = 2237) (NOTE) MG/DL RISK RATIO LDL/HDL (test code = (NOTE) RATIO 2238) COMPREHENSIVE METABOLIC [id number] 00:00:00 Test Item Value Reference Range Interpretation Comments GLUCOSE (test code = 2217) 121 MG/DL BUN (test code = 2208) 27 MG/DL CREATININE (test code = 2214) 1.49 MG/DL eGFR AMER. (test code 43 ML/MIN/1.73 = 86425) eGFR NON- AMER. (test 38 ML/MIN/1.73 code = 85231) CALC BUN/CREAT (test code = 18 RATIO 2235) SODIUM (test code = 2231) 137 MEQ/L POTASSIUM (test code = 2228) 3.8 MEQ/L CHLORIDE (test code = 2215) 95 MEQ/L CARBON DIOXIDE (test code = 22 MEQ/L 220) CALCIUM (test code = 2209) 10.2 MG/DL PROTEIN, TOTAL (test code = 7.7 G/DL 222) ALBUMIN (test code = 2201) 4.6 G/DL CALC GLOBULIN (test code = 3.1 G/DL 2240) CALC A/G RATIO (test code = 1.5 RATIO 2234) BILIRUBIN, TOTAL (test code = 0.6 MG/DL 2206) ALKALINE PHOSPHATASE (test 97 U/L code = 2204) AST (test code = 2218) 50 U/L ALT (test code = 2219) 43 U/L COMPREHENSIVE METABOLIC [id number] 00:00:00 Test Item Value Reference Range Interpretation Comments GLUCOSE (test code = 2217) 121 MG/DL BUN (test code = 2208) 27 MG/DL CREATININE (test code = 2214) 1.49 MG/DL eGFR AMER. (test code 43 ML/MIN/1.73 = 89115) eGFR NON- AMER. (test 38 ML/MIN/1.73 code = 43867) CALC BUN/CREAT (test code = 18 RATIO [...] (test code = 2219) 43 U/L HEMOGLOBIN [id number] 00:00:00 Test Item Value Reference Range Interpretation Comments HEMOGLOBIN A1c (test code = 63142) 8.5 % HEMOGLOBIN [id number] 00:00:00 Test Item Value Reference Range Interpretation Comments HEMOGLOBIN A1c (test code = 56320) 8.5 % HEMOGLOBIN [id number] 00:00:00 Test Item Value Reference Range Interpretation Comments HEMOGLOBIN A1c (test code = 26995) 8.5 % HEMOGLOBIN [id number] 00:00:00 Test Item Value Reference Range Interpretation Comments HEMOGLOBIN A1c (test code = 26971) 8.5 % HEMOGLOBIN [id number] 00:00:00 Test Item Value Reference Range Interpretation Comments HEMOGLOBIN A1c (test code = 08244) 8.5 % HEMOGLOBIN [id number] 00:00:00 Test Item Value Reference Range Interpretation Comments HEMOGLOBIN A1c (test code = 38744) 8.5 % HEMOGLOBIN [id number] 00:00:00 Test Item Value Reference Range Interpretation Comments HEMOGLOBIN A1c (test code = 66670) 8.5 % HEMOGLOBIN [id number] 00:00:00 Test Item Value Reference Range Interpretation Comments HEMOGLOBIN A1c (test code = 19151) 8.5 % HEMOGLOBIN [id number] 00:00:00 Test Item Value Reference Range Interpretation Comments HEMOGLOBIN A1c (test code = 15287) 8.5 % HEMOGLOBIN [id number] 00:00:00 Test Item Value Reference Range Interpretation Comments HEMOGLOBIN A1c (test code = 70547) 9.1 % HEMOGLOBIN [id number] 00:00:00 Test Item Value Reference Range Interpretation Comments HEMOGLOBIN A1c (test code = 67037) 9.1 % HEMOGLOBIN [id number] 00:00:00 Test Item Value Reference Range Interpretation Comments HEMOGLOBIN A1c (test code = 79781) 9.1 % COMPREHENSIVE METABOLIC [id number] 00:00:00 Test Item Value Reference Range Interpretation Comments GLUCOSE (test code = 2217) 176 MG/DL BUN (test code = 2208) 16 MG/DL CREATININE (test code = 2214) 0.87 MG/DL eGFR AMER. (test code 83 ML/MIN/1.73 = 01293) eGFR NON- AMER. (test 72 ML/MIN/1.73 code = 91612) CALC BUN/CREAT (test code = 18 RATIO 2235) SODIUM (test code = 2231) 137 MEQ/L POTASSIUM (test code = 2228) 3.5 MEQ/L CHLORIDE (test code = 2215) 93 MEQ/L CARBON DIOXIDE (test code = 27 MEQ/L 2206) CALCIUM (test code = 2209) 10.3 MG/DL PROTEIN, TOTAL (test code = 7.8 G/DL 2229) ALBUMIN (test code = 2201) 4.9 G/DL CALC GLOBULIN (test code = 2.9 G/DL 2240) CALC A/G RATIO (test code = 1.7 RATIO 2234) BILIRUBIN, TOTAL (test code = 0.4 MG/DL 2206) ALKALINE PHOSPHATASE (test 89 U/L code = 2204) AST (test code = 2218) 19 U/L ALT (test code = 2219) 21 U/L COMPREHENSIVE METABOLIC [id number] 00:00:00 Test Item Value Reference Range Interpretation Comments GLUCOSE (test code = 2217) 176 MG/DL BUN (test code = 2208) 16 MG/DL CREATININE (test code = 2214) 0.87 MG/DL eGFR AMER. (test code 83 ML/MIN/1.73 = 28135) eGFR NON- AMER. (test 72 ML/MIN/1.73 code = 02643) CALC BUN/CREAT (test code = 18 RATIO 2235) SODIUM (test code = 2231) 137 MEQ/L POTASSIUM (test code = 2228) 3.5 MEQ/L CHLORIDE (test code = 2215) 93 MEQ/L CARBON DIOXIDE (test code = 27 MEQ/L 2206) CALCIUM (test code = 2209) 10.3 MG/DL PROTEIN, TOTAL (test code = 7.8 G/DL 2229) ALBUMIN (test code = 2201) 4.9 G/DL CALC GLOBULIN (test code = 2.9 G/DL 2240) CALC A/G RATIO (test code = 1.7 RATIO 2234) BILIRUBIN, TOTAL (test code = 0.4 MG/DL 2206) ALKALINE PHOSPHATASE (test 89 U/L code = 2204) AST (test code = 2218) 19 U/L ALT (test code = 2219) 21 U/L LIPID [id number] 00:00:00 Test Item Value Reference Range Interpretation Comments CHOLESTEROL (test code = 2210) 228 MG/DL TRIGLYCERIDES (test code = 2232) 268 MG/DL HDL CHOLESTEROL (test code = 2220) 54 MG/DL CALC LDL CHOL (test code = 2237) 133 MG/DL RISK RATIO LDL/HDL (test code = 2.46 RATIO 2238) LIPID [id number] 00:00:00 Test Item Value Reference Range Interpretation Comments CHOLESTEROL (test code = 2210) 228 MG/DL TRIGLYCERIDES (test code = 2232) 268 MG/DL HDL CHOLESTEROL (test code = 2220) 54 MG/DL CALC LDL CHOL (test code = 2237) 133 MG/DL RISK RATIO LDL/HDL (test code = 2.46 RATIO 2238) HEMOGLOBIN [id number] 00:00:00 Test Item Value Reference Range Interpretation Comments HEMOGLOBIN A1c (test code = 04004) 9.1 % HEMOGLOBIN [id number] 00:00:00 Test Item Value Reference Range Interpretation Comments HEMOGLOBIN A1c (test code = 18013) 9.1 % HEMOGLOBIN [id number] 00:00:00 Test Item Value Reference Range Interpretation Comments HEMOGLOBIN A1c (test code = 98647) 9.1 % COMPREHENSIVE METABOLIC [id number] 00:00:00 Test Item Value Reference Range Interpretation Comments GLUCOSE (test code = 2217) 176 MG/DL BUN (test code = 8) 16 MG/DL CREATININE (test code = 2214) 0.87 MG/DL eGFR AMER. (test code 83 ML/MIN/1.73 = 67683) eGFR NON- AMER. (test 72 ML/MIN/1.73 code = 46941) CALC BUN/CREAT (test code = 18 RATIO 2234) SODIUM (test code = 2231) 137 MEQ/L POTASSIUM (test code = 2228) 3.5 MEQ/L CHLORIDE (test code = 2215) 93 MEQ/L CARBON DIOXIDE (test code = 27 MEQ/L 2205) CALCIUM (test code = 220) 10.3 MG/DL PROTEIN, TOTAL (test code = 7.8 G/DL 2228) ALBUMIN (test code = 220) 4.9 G/DL CALC GLOBULIN (test code = 2.9 G/DL 2239) CALC A/G RATIO (test code = 1.7 RATIO 2233) BILIRUBIN, TOTAL (test code = 0.4 MG/DL 2207) ALKALINE PHOSPHATASE (test 89 U/L code = 2204) AST (test code = 2218) 19 U/L ALT (test code = 2219) 21 U/L COMPREHENSIVE METABOLIC [id number] 00:00:00 Test Item Value Reference Range Interpretation Comments GLUCOSE (test code = 2217) 176 MG/DL BUN (test code = 2208) 16 MG/DL CREATININE (test code = 2214) 0.87 MG/DL eGFR AMER. (test code 83 ML/MIN/1.73 = 71131) eGFR NON- AMER. (test 72 ML/MIN/1.73 code = 35727) CALC BUN/CREAT (test code = 18 RATIO [...] (test code = 2219) 21 U/L LIPID [id number] 00:00:00 Test Item Value Reference Range Interpretation Comments CHOLESTEROL (test code = 2210) 228 MG/DL TRIGLYCERIDES (test code = 2232) 268 MG/DL HDL CHOLESTEROL (test code = 2220) 54 MG/DL CALC LDL CHOL (test code = 2237) 133 MG/DL RISK RATIO LDL/HDL (test code = 2.46 RATIO 2238) LIPID [id number] 00:00:00 Test Item Value Reference Range Interpretation Comments CHOLESTEROL (test code = 2210) 228 MG/DL TRIGLYCERIDES (test code = 2232) 268 MG/DL HDL CHOLESTEROL (test code = 2220) 54 MG/DL CALC LDL CHOL (test code = 2237) 133 MG/DL RISK RATIO LDL/HDL (test code = 2.46 RATIO 2238) HEMOGLOBIN [id number] 00:00:00 Test Item Value Reference Range Interpretation Comments HEMOGLOBIN A1c (test code = 16369) 9.1 % HEMOGLOBIN [id number] 00:00:00 Test Item Value Reference Range Interpretation Comments HEMOGLOBIN A1c (test code = 50806) 9.1 % HEMOGLOBIN [id number] 00:00:00 Test Item Value Reference Range Interpretation Comments HEMOGLOBIN A1c (test code = 33055) 9.1 % COMPREHENSIVE METABOLIC [id number] 00:00:00 Test Item Value Reference Range Interpretation Comments GLUCOSE (test code = 2217) 176 MG/DL BUN (test code = 2208) 16 MG/DL CREATININE (test code = 2214) 0.87 MG/DL eGFR AMER. (test code 83 ML/MIN/1.73 = 44800) eGFR NON- AMER. (test 72 ML/MIN/1.73 code = 58101) CALC BUN/CREAT (test code = 18 RATIO 2235) SODIUM (test code = 2231) 137 MEQ/L POTASSIUM (test code = 2228) 3.5 MEQ/L CHLORIDE (test code = 2215) 93 MEQ/L CARBON DIOXIDE (test code = 27 MEQ/L 6) CALCIUM (test code = 2209) 10.3 MG/DL [...] code = 2219) 21 U/L COMPREHENSIVE METABOLIC [id number] 00:00:00 Test Item Value Reference Range Interpretation Comments GLUCOSE (test code = 2217) 176 MG/DL BUN (test code = 2208) 16 MG/DL CREATININE (test code = 2214) 0.87 MG/DL eGFR AMER. (test code 83 ML/MIN/1.73 = 58433) eGFR NON- AMER. (test 72 ML/MIN/1.73 code = 49068) CALC BUN/CREAT (test code = 18 RATIO [...] CALC GLOBULIN (test code = 2.9 G/DL 224) CALC A/G RATIO (test code = 1.7 RATIO 2234) BILIRUBIN, TOTAL (test code = 0.4 MG/DL 2206) ALKALINE PHOSPHATASE (test 89 U/L code = 2204) AST (test code = 2218) 19 U/L ALT (test code = 2219) 21 U/L LIPID [id number] 00:00:00 Test Item Value Reference Range Interpretation Comments CHOLESTEROL (test code = 2210) 228 MG/DL TRIGLYCERIDES (test code = 2232) 268 MG/DL HDL CHOLESTEROL (test code = 2220) 54 MG/DL CALC LDL CHOL (test code = 2237) 133 MG/DL RISK RATIO LDL/HDL (test code = 2.46 RATIO 2238) LIPID [id number] 00:00:00 Test Item Value Reference Range Interpretation Comments CHOLESTEROL (test code = 2210) 228 MG/DL TRIGLYCERIDES (test code = 2232) 268 MG/DL HDL CHOLESTEROL (test code = 2220) 54 MG/DL CALC LDL CHOL (test code = 2237) 133 MG/DL RISK RATIO LDL/HDL (test code = 2.46 RATIO 2238) SURGICAL PATHOLOGY [id number] 00:00:00 Test Item Value Reference Range Interpretation Comments DIAGNOSIS: (test code = 8200) (NOTE) COMMENTS: (test code = 8205) (NOTE) MICROSCOPIC DESCRIPTION: (test code = (NOTE) 8210) CLINICAL DATA: (test code = 8401) (NOTE) GROSS DESCRIPTION: (test code = 8220) (NOTE) PATHOLOGIST: (test code = 8250) (NOTE) CPT: (test code = 8400) (NOTE) SURGICAL PATHOLOGY [id number] 00:00:00 Test Item Value Reference Range Interpretation Comments DIAGNOSIS: (test code = 8200) (NOTE) COMMENTS: (test code = 8205) (NOTE) MICROSCOPIC DESCRIPTION: (test code = (NOTE) 8210) CLINICAL DATA: (test code = 8401) (NOTE) GROSS DESCRIPTION: (test code = 8220) (NOTE) PATHOLOGIST: (test code = 8250) (NOTE) CPT: (test code = 8400) (NOTE) SURGICAL PATHOLOGY [id number] 00:00:00 Test Item Value Reference Range Interpretation Comments DIAGNOSIS: (test code = 8200) (NOTE) COMMENTS: (test code = 8205) (NOTE) MICROSCOPIC DESCRIPTION: (test code = (NOTE) 8210) CLINICAL DATA: (test code = 8401) (NOTE) GROSS DESCRIPTION: (test code = 8220) (NOTE) PATHOLOGIST: (test code = 8250) (NOTE) CPT: (test code = 8400) (NOTE) SURGICAL PATHOLOGY [id number] 00:00:00 Test Item Value Reference Range Interpretation Comments DIAGNOSIS: (test code = 8200) (NOTE) COMMENTS: (test code = 8205) (NOTE) MICROSCOPIC DESCRIPTION: (test code = (NOTE) 8210) CLINICAL DATA: (test code = 8401) (NOTE) GROSS DESCRIPTION: (test code = 8220) (NOTE) PATHOLOGIST: (test code = 8250) (NOTE) CPT: (test code = 8400) (NOTE) SURGICAL PATHOLOGY [id number] 00:00:00 Test Item Value Reference Range Interpretation Comments DIAGNOSIS: (test code = 8200) (NOTE) COMMENTS: (test code = 8205) (NOTE) MICROSCOPIC DESCRIPTION: (test code = (NOTE) 8210) CLINICAL DATA: (test code = 8401) (NOTE) GROSS DESCRIPTION: (test code = 8220) (NOTE) PATHOLOGIST: (test code = 8250) (NOTE) CPT: (test code = 8400) (NOTE) SURGICAL PATHOLOGY [id number] 00:00:00 Test Item Value Reference Range Interpretation Comments DIAGNOSIS: (test code = 8200) (NOTE) COMMENTS: (test code = 8205) (NOTE) MICROSCOPIC DESCRIPTION: (test code = (NOTE) 8210) CLINICAL DATA: (test code = 8401) (NOTE) GROSS DESCRIPTION: (test code = 8220) (NOTE) PATHOLOGIST: (test code = 8250) (NOTE) CPT: (test code = 8400) (NOTE) PAP TEST, THINPREP, [id number] 00:00:00 Test Item Value Reference Range Interpretation Comments SOURCE: (test code = 8001) Cervical/Endocervic al SLIDES: (test code = 8011) 1 LMP: (test code = 8021) SEE NOTE SPECIMEN ADEQUACY: (test (NOTE) code = 89481) INTERPRETATION: (test code LSIL/EPITH. = 51149) ABNORMALITY; SEE BELOW OTHER COMMENTS: (test code (NOTE) = 8081) HONEY BLENDER: (test Zeke code = 8101) DON Garcia(ASCP) PATHOLOGIST INTERPRETATION Nancy Flores, BY: (test code = 8122) M.D. LOCATION: (test code = (NOTE) 53711) CPT: (test code = 8140) (NOTE) PAP TEST, THINPREP, [id number] 00:00:00 Test Item Value Reference Range Interpretation Comments SOURCE: (test code = 8001) Cervical/Endocervic al SLIDES: (test code = 8011) 1 LMP: (test code = 8021) SEE NOTE SPECIMEN ADEQUACY: (test (NOTE) code = 31554) INTERPRETATION: (test code LSIL/EPITH. = 04968) ABNORMALITY; SEE BELOW OTHER COMMENTS: (test code (NOTE) = 8081) HONEY BLENDER: (test Zeke code = 8101) DON Garcia(ASCP) PATHOLOGIST INTERPRETATION Nancy Flores, BY: (test code = 8122) M.D. LOCATION: (test code = (NOTE) 35147) CPT: (test code = 8140) (NOTE) PAP TEST, THINPREP, [id number] 00:00:00 Test Item Value Reference Range Interpretation Comments SOURCE: (test code = 8001) Cervical/Endocervic al SLIDES: (test code = 8011) 1 LMP: (test code = 8021) SEE NOTE SPECIMEN ADEQUACY: (test (NOTE) code = 71402) INTERPRETATION: (test code LSIL/EPITH. = 86232) ABNORMALITY; SEE BELOW OTHER COMMENTS: (test code (NOTE) = 8081) HONEY BLENDER: (test Zeke code = 8101) DON Garcia(ASCP) PATHOLOGIST INTERPRETATION Nancy Flores, BY: (test code = 8122) MJen LOCATION: (test code = (NOTE) 15459) CPT: (test code = 8140) (NOTE) PAP TEST, THINPREP, [id number] 00:00:00 Test Item Value Reference Range Interpretation Comments SOURCE: (test code = 8001) Cervical/Endocervic al SLIDES: (test code = 8011) 1 LMP: (test code = 8021) SEE NOTE SPECIMEN ADEQUACY: (test (NOTE) code = 83391) INTERPRETATION: (test code LSIL/EPITH. = 80787) ABNORMALITY; SEE BELOW OTHER COMMENTS: (test code (NOTE) = 8081) HONEY BLENDER: (test Zeke code = 8101) DON Garcia(ASCP) PATHOLOGIST INTERPRETATION Nancy Flores BY: (test code = 8122) MOpalDOpal LOCATION: (test code = (NOTE) 94361) CPT: (test code = 8140) (NOTE) PAP TEST, THINPREP, [id number] 00:00:00 Test Item Value Reference Range Interpretation Comments SOURCE: (test code = 8001) Cervical/Endocervic al SLIDES: (test code = 8011) 1 LMP: (test code = 8021) SEE NOTE SPECIMEN ADEQUACY: (test (NOTE) code = 36911) INTERPRETATION: (test code LSIL/EPITH. = 72684) ABNORMALITY; SEE BELOW OTHER COMMENTS: (test code (NOTE) = 8081) HONEY BLENDER: (test Zeke code = 8101) DON Garcia(ASCP) PATHOLOGIST INTERPRETATION Nancy Flores BY: (test code = 8122) MOpalDOpal LOCATION: (test code = (NOTE) 95632) CPT: (test code = 8140) (NOTE) PAP TEST, THINPREP, [id number] 00:00:00 Test Item Value Reference Range Interpretation Comments SOURCE: (test code = 8001) Cervical/Endocervic al SLIDES: (test code = 8011) 1 LMP: (test code = 8021) SEE NOTE SPECIMEN ADEQUACY: (test (NOTE) code = 63935) INTERPRETATION: (test code LSIL/EPITH. = 20213) ABNORMALITY; SEE BELOW OTHER COMMENTS: (test code (NOTE) = 8081) HONEY BLENDER: (test Zeke code = 8101) DON Garcia(ASCP) PATHOLOGIST INTERPRETATION Nancy Flores BY: (test code = 8122) Bernard[place] LOCATION: (test code = (NOTE) 42577) CPT: (test code = 8140) (NOTE) VAGINAL PATHOGENS DNA [id number] 00:00:00 Test Item Value Reference Range Interpretation Comments KEELY SPECIES (test code = ) NEGATIVE G. VAGINALIS (test code = 49559) POSITIVE T. VAGINALIS (test code = 35091) NEGATIVE VAGINAL PATHOGENS DNA [id number] 00:00:00 Test Item Value Reference Range Interpretation Comments KEELY SPECIES (test code = ) NEGATIVE G. VAGINALIS (test code = 98083) POSITIVE T. VAGINALIS (test code = ) NEGATIVE HPV HIGH RISK WITH GENOTYPE, [id number] 00:00:00 Test Item Value Reference Range Interpretation Comments HPV HIGH RISK INTERP (test code = POSITIVE 60453) HPV 16 (test code = 17319) NEGATIVE HPV 18 (test code = 83821) POSITIVE HPV, HR, OTHER GENOTYPES (test code POSITIVE = 67506) HPV HIGH RISK WITH GENOTYPE, [id number] 00:00:00 Test Item Value Reference Range Interpretation Comments HPV HIGH RISK INTERP (test code = POSITIVE 84116) HPV 16 (test code = 99249) NEGATIVE HPV 18 (test code = 05850) POSITIVE HPV, HR, OTHER GENOTYPES (test code POSITIVE = 60332) VAGINAL PATHOGENS DNA [id number] 00:00:00 Test Item Value Reference Range Interpretation Comments KEELY SPECIES (test code = ) NEGATIVE G. VAGINALIS (test code = 24317) POSITIVE T. VAGINALIS (test code = 83292) NEGATIVE VAGINAL PATHOGENS DNA [id number] 00:00:00 Test Item Value Reference Range Interpretation Comments KEELY SPECIES (test code = ) NEGATIVE G. VAGINALIS (test code = 35897) POSITIVE T. VAGINALIS (test code = 33349) NEGATIVE HPV HIGH RISK WITH GENOTYPE, [id number] 00:00:00 Test Item Value Reference Range Interpretation Comments HPV HIGH RISK INTERP (test code = POSITIVE 33271) HPV 16 (test code = 01954) NEGATIVE HPV 18 (test code = 35534) POSITIVE HPV, HR, OTHER GENOTYPES (test code POSITIVE = 59555) HPV HIGH RISK WITH GENOTYPE, [id number] 00:00:00 Test Item Value Reference Range Interpretation Comments HPV HIGH RISK INTERP (test code = POSITIVE 38212) HPV 16 (test code = 50057) NEGATIVE HPV 18 (test code = 63151) POSITIVE HPV, HR, OTHER GENOTYPES (test code POSITIVE = 78012) VAGINAL PATHOGENS DNA [id number] 00:00:00 Test Item Value Reference Range Interpretation Comments KEELY SPECIES (test code = ) NEGATIVE G. VAGINALIS (test code = 55800) POSITIVE T. VAGINALIS (test code = 05404) NEGATIVE VAGINAL PATHOGENS DNA [id number] 00:00:00 Test Item Value Reference Range Interpretation Comments KEELY SPECIES (test code = ) NEGATIVE G. VAGINALIS (test code = 40641) POSITIVE T. VAGINALIS (test code = 03513) NEGATIVE HPV HIGH RISK WITH GENOTYPE, [id number] 00:00:00 Test Item Value Reference Range Interpretation Comments HPV HIGH RISK INTERP (test code = POSITIVE 98769) HPV 16 (test code = 35547) NEGATIVE HPV 18 (test code = 79197) POSITIVE HPV, HR, OTHER GENOTYPES (test code POSITIVE = 89211) HPV HIGH RISK WITH GENOTYPE, [id number] 00:00:00 Test Item Value Reference Range Interpretation Comments HPV HIGH RISK INTERP (test code = POSITIVE 69290) HPV 16 (test code = 52017) NEGATIVE HPV 18 (test code = 36560) POSITIVE HPV, HR, OTHER GENOTYPES (test code POSITIVE = 66856) BASIC METABOLIC [id number] 05:52:00 Test Item Value Reference Range Interpretation [...] 697) EGFR (BEAKER) (test 69 mL/min/1.73 ESTIMA RAFAEL GFR IS code = 1092) sq m NOT ACCURATE CREATININE CLEARANCE IN PREDICTING GLOMERULAR FILTRATION RATE . ESTIMATED GFR I S NOT APPLICABLE FOR DIALYSIS PATIEN TS. CBC W/PLT COUNT & AUTO [id number] 04:21:00 Test Item Value Reference Range Interpretation [...] PERCENT (BEAKER) (test code = 2801) POCT-GLUCOSE [id number] 22:00:00 Test Item Value Reference Range Interpretation Comments POC-GLUCOSE METER 148 mg/dL 70-110 H TESTED AT [place] [address] ([facility]) (test code = [facility] 1538) [address] POCT-GLUCOSE [id number] 17:06:00 Test Item Value Reference Range Interpretation Comments POC-GLUCOSE METER 224 mg/dL 70-110 H TESTED AT [place] [address] ([facility]) (test code = [facility] 1538) [address] POCT-GLUCOSE [id number] 12:39:00 Test Item Value Reference Range Interpretation Comments POC-GLUCOSE METER 214 mg/dL 70-110 H TESTED AT [place] [address] ([facility]) (test code = [facility] 1538) [address] POCT-GLUCOSE [id number] 08:26:00 Test Item Value Reference Range Interpretation Comments POC-GLUCOSE METER 166 mg/dL 70-110 H TESTED AT [place] [address] ([facility]) (test code = [facility] 1538) [address] COMPREHENSIVE METABOLIC [id number] 05:17:00 Test Item Value Reference Range Interpretation [...] 347) EGFR (BEAKER) (test 74 mL/min/1.73 ESTIMA RAFAEL GFR IS code = 1092) sq m NOT ACCURATE CREATININE CLEARANCE IN PREDICTING GLOMERULAR FILTRATION RATE . ESTIMATED GFR I S NOT APPLICABLE FOR DIALYSIS PATIEN TS. [id number] 05:14:00 Test Item Value Reference Range Interpretation Comments PHOSPHORUS (BEAKER) (test code = 2.9 mg/dL 2.3-4.7 604) [id number] 05:14:00 Test Item Value Reference Range Interpretation Comments MAGNESIUM (BEAKER) (test code = 1.6 mg/dL 1.6-2.6 627) CBC W/PLT COUNT & AUTO [id number] 04:48:00 Test Item Value Reference Range Interpretation [...] PERCENT (BEAKER) (test code = 2801) POCT-GLUCOSE [id number] 22:42:00 Test Item Value Reference Range Interpretation Comments POC-GLUCOSE METER 184 mg/dL 70-[address] [facility] [address] (BEAKER) (test code = [place] 1538) [address] POCT-GLUCOSE [id number] 18:51:00 Test Item Value Reference Range Interpretation Comments POC-GLUCOSE METER 220 mg/dL 70-[address] [facility] [address] (BEAKER) (test code = [place] 1538) [address] [id number] 16:07:00 Test Item Value Reference Range Interpretation Comments MAGNESIUM (BEAKER) (test code = 1.8 mg/dL 1.6-2.6 627) [id number] 16:07:00 Test Item Value Reference Range Interpretation Comments POTASSIUM (BEAKER) (test code = 4.1 meq/L 3.5-5.1 379) POCT-GLUCOSE [id number] 15:47:00 Test Item Value Reference Range Interpretation Comments POC-GLUCOSE METER 215 mg/dL 70-110 H TESTED AT [place] [address] (BEAKER) (test code = [facility] 1538) [address] [id number] 10:16:00 Test Item Value Reference Range Interpretation Comments MAGNESIUM (BEAKER) (test code = 1.7 mg/dL 1.6-2.6 627) POCT-GLUCOSE [id number] 09:25:00 Test Item Value Reference Range Interpretation Comments POC-GLUCOSE METER 156 mg/dL 70-110 H TESTED AT [place] [address] (BEAKER) (test code = [facility] 1538) [address] BASIC METABOLIC [id number] 06:32:00 Test Item Value Reference Range Interpretation [...] 697) EGFR (BEAKER) (test 71 mL/min/1.73 ESTIMA RAFAEL GFR IS code = 1092) sq m NOT ACCURATE CREATININE CLEARANCE IN PREDICTING GLOMERULAR FILTRATION RATE . ESTIMATED GFR I S NOT APPLICABLE FOR DIALYSIS PATIEN TS. CBC W/PLT COUNT & AUTO [id number] 05:42:00 Test Item Value Reference Range Interpretation [...] PERCENT ([place]) (test code = 2801) POCT-GLUCOSE [id number] 22:05:00 Test Item Value Reference Range Interpretation Comments POC-GLUCOSE METER 255 mg/dL 70-[address] [facility] [address] ([place]) (test code = [place] 1538) [address] MR, BRAIN, WITHOUT [id number] 19:23:00Reason for exam:->StrokeWhat is the patient's sedation [...] cerebral arteries: Normal flow-related enhancement withinthe bilateral CURRICULUM CONSULTANT P1-P2 segments without flow-limiting stenosis. Bilateral functional type analyst.Additional findings: None. MRA NECK:Common carotid arteries: Unremarkable. [...] cannot be excluded by imaging). Signed: Caty Holly MDReport Verified Date/Time: 12/08/2018 19:23:05 Reading Location: [address] Neuro Reading Room MR, MRA, NECK, WITHOUT IV [id number] 19:23:00FINAL REPORT MR, BRAIN, WITHOUT CONTRAST, MR, [...] cerebral arteries: Normal flow-related enhancement withinthe bilateral CURRICULUM CONSULTANT P1-P2 segments without flow-limiting stenosis. Bilateral functional type analyst.Additional findings: None. MRA NECK:Common carotid arteries: Unremarkable. [...] cannot be excluded by imaging). Signed: Caty Holly MDReport Verified Date/Time: 12/08/2018 19:23:05 Reading Location: [address] Neuro Reading Room MR, MRA, BRAIN, WITHOUT [id number] 19:23:00Reason for exam:->StrokeWhat is the patient's sedation [...] cerebral arteries: Normal flow-related enhancement withinthe bilateral CURRICULUM CONSULTANT P1-P2 segments without flow-limiting stenosis. Bilateral functional type analyst.Additional findings: None. MRA NECK:Common carotid arteries: Unremarkable. [...] cannot be excluded by imaging). Signed: Caty Holly MDReport Verified Date/Time: 12/08/2018 19:23:05 Reading Location: [facility] C013V Neuro Reading Room -GLUCOSE [id number] 19:03:00 Test Item Value Reference Range Interpretation Comments POC-GLUCOSE METER 158 mg/dL 70-[address] [facility] 6720 (BEAKER) (test code = [place] 1538) [address] [id number] 17:33:00 Test Item Value Reference Range Interpretation Comments POTASSIUM (BEAKER) (test code = 4.0 meq/L 3.5-5.1 379) [id number] 17:33:00 Test Item Value Reference Range Interpretation Comments MAGNESIUM (BEAKER) (test code = 2.4 mg/dL 1.6-2.6 627) [id number] 14:55:00 Test Item Value Reference Range Interpretation Comments RPR SCREEN (BEAKER) (test code = Nonreactive Nonreactive 420) [id number] 12:28:00 Test Item Value Reference Range Interpretation Comments POTASSIUM (BEAKER) (test code = 2.9 meq/L 3.5-5.1 L 379) TROPONIN [id number] 10:59:00 Test Item Value Reference Range Interpretation [...] failure, acidosis, acute neurological disease, and persistent tachyarrhythmia.[id number] 10:50:00 Test Item Value Reference Range Interpretation Comments MAGNESIUM (BEAKER) (test code = 1.8 mg/dL 1.6-2.6 627) HEMOGLOBIN [id number] 07:49:00 Test Item Value Reference Range Interpretation Comments HEMOGLOBIN A1C (BEAKER) (test code = 8.1 % 4.3-6.1 H 368) HIV-1 ANTIGEN WITH HIV-1/2 [id number] 06:03:00 Test Item Value Reference Range Interpretation Comments HIV-1 ANTIGEN WITH HIV 1\\T\\2 Nonreactive Nonreactive ANTIBODY (2) (BEAKER) (test code = 2586) [id number] 05:54:00 Test Item Value Reference Range Interpretation Comments POTASSIUM (BEAKER) (test code = 2.8 meq/L 3.5-5.1 L 379) VITAMIN B12 AND [id number] 03:31:00 Test Item Value Reference Range Interpretation Comments VITAMIN B12 (BEAKER) (test code = 1168 pg/mL 213-816 H 774) FOLATE (BEAKER) (test code = 362) > ng/mL >=7.0 TSH/FREE T4 IF [id number] 03:24:00 Test Item Value Reference Range Interpretation Comments THYROID STIMULATING HORMONE 2.19 uIU/mL 0.35-4.94 (BEAKER) (test code = 772) BASIC METABOLIC [id number] 02:06:00 Test Item Value Reference Range Interpretation [...] m DATA TO CALCULA TE ESTIMATED GFR. [id number] 02:04:00 Test Item Value Reference Range Interpretation Comments MAGNESIUM (BEAKER) 1.5 mg/dL 1.6-2.6 L Specimen slightly (test code = 627) hemolyzed FastingLIPID [id number] 02:04:00 Test Item Value Reference Range Interpretation [...] High >=190 FastingCBC W/PLT COUNT & AUTO [id number] 01:36:00 Test Item Value Reference Range Interpretation [...] 0-1 PERCENT (BEAKER) (test code = 2801) [id number] 23:06:00 Test Item Value Reference Range Interpretation Comments ETHANOL (BEAKER) (test code = 400) < mg/dL <=10 TROPONIN [id number] 22:58:00 Test Item Value Reference Range Interpretation [...] acute neurological disease, and persistent tachyarrhythmia.BASIC METABOLIC [id number] 22:56:00 Test Item Value Reference Range Interpretation [...] DATA TO CALCULA TE ESTIMATED GFR. URINALYSIS [id number] 22:41:00 Test Item Value Reference Range Interpretation Comments RBC UA (BEAKER) (test code = 519) 1 /HPF WBC UA (BEAKER) (test code = 520) < /HPF SQUAMOUS EPITHELIAL (BEAKER) (test 7 /HPF code = 516) HYALINE CASTS (BEAKER) (test code = 2 /LPF 514) URINALYSIS WITH MICROSCOPIC IF [id number] 22:36:00 Test Item Value Reference Range Interpretation [...] H = 463) SOURCE(BEAKER) (test code = 2175) BASIC METABOLIC [id number] 19:01:00 Test Item Value Reference Range Interpretation [...] m DATA TO CALCULA TE ESTIMATED GFR. [id number] 19:01:00 Test Item Value Reference Range Interpretation Comments MAGNESIUM (BEAKER) (test code = 0.7 mg/dL 1.6-2.6 LL 627) [id number] 18:58:00 Test Item Value Reference Range Interpretation Comments PHOSPHORUS (BEAKER) (test code = 3.3 mg/dL 2.3-4.7 604) HEPATIC FUNCTION [id number] 18:58:00 Test Item Value Reference Range Interpretation [...] = 36 U/L 6-55 347) COMPREHENSIVE METABOLIC [id number] 00:00:00 Test Item Value Reference Range Interpretation Comments GLUCOSE (test code = 2217) 206 MG/DL BUN (test code = 2208) 10 MG/DL CREATININE (test code = 2214) 0.83 MG/DL eGFR AMER. (test code 89 ML/MIN/1.73 = 08183) eGFR NON- AMER. (test 77 ML/MIN/1.73 code = 19219) CALC BUN/CREAT (test code = 12 RATIO [...] code = 2219) 32 U/L COMPREHENSIVE METABOLIC [id number] 00:00:00 Test Item Value Reference Range Interpretation Comments GLUCOSE (test code = 2217) 206 MG/DL BUN (test code = 2208) 10 MG/DL CREATININE (test code = 2214) 0.83 MG/DL eGFR AMER. (test code 89 ML/MIN/1.73 = 95010) eGFR NON- AMER. (test 77 ML/MIN/1.73 code = 74737) CALC BUN/CREAT (test code = 12 RATIO [...] (test code = 2219) 32 U/L LIPID [id number] 00:00:00 Test Item Value Reference Range Interpretation Comments CHOLESTEROL (test code = 2210) 420 MG/DL TRIGLYCERIDES (test code = 2232) 262 MG/DL HDL CHOLESTEROL (test code = 2220) 95 MG/DL CALC LDL CHOL (test code = 2237) 273 MG/DL RISK RATIO LDL/HDL (test code = 2.87 RATIO 2238) LIPID [id number] 00:00:00 Test Item Value Reference Range Interpretation Comments CHOLESTEROL (test code = 2210) 420 MG/DL TRIGLYCERIDES (test code = 2232) 262 MG/DL HDL CHOLESTEROL (test code = 2220) 95 MG/DL CALC LDL CHOL (test code = 2237) 273 MG/DL RISK RATIO LDL/HDL (test code = 2.87 RATIO 2238) CBC W/AUTO [id number] 00:00:00 Test Item Value Reference Range Interpretation [...] code = 1015) 330 K/UL CBC W/AUTO [id number] 00:00:00 Test Item Value Reference Range Interpretation [...] code = 1015) 330 K/UL CBC W/AUTO [id number] 00:00:00 Test Item Value Reference Range Interpretation [...] COUNT (test code = 1015) 330 K/UL [id number] 00:00:00 Test Item Value Reference Range Interpretation Comments AMYLASE (test code = 2205) 48 U/L [id number] 00:00:00 Test Item Value Reference Range Interpretation Comments AMYLASE (test code = 2205) 48 U/L [id number] 00:00:00 Test Item Value Reference Range Interpretation Comments LIPASE (test code = 2058) 69 U/L [id number] 00:00:00 Test Item Value Reference Range Interpretation Comments LIPASE (test code = 2058) 69 U/L [id number] 00:00:00 Test Item Value Reference Range Interpretation Comments LIPASE (test code = 2058) 69 U/L COMPREHENSIVE METABOLIC [id number] 00:00:00 Test Item Value Reference Range Interpretation Comments GLUCOSE (test code = 2217) 206 MG/DL BUN (test code = 2208) 10 MG/DL CREATININE (test code = 2214) 0.83 MG/DL eGFR AMER. (test code 89 ML/MIN/1.73 = 89456) eGFR NON- AMER. (test 77 ML/MIN/1.73 code = 32149) CALC BUN/CREAT (test code = 12 RATIO [...] code = 2219) 32 U/L COMPREHENSIVE METABOLIC [id number] 00:00:00 Test Item Value Reference Range Interpretation Comments GLUCOSE (test code = 2217) 206 MG/DL BUN (test code = 2208) 10 MG/DL CREATININE (test code = 2214) 0.83 MG/DL eGFR AMER. (test code 89 ML/MIN/1.73 = 64419) eGFR NON- AMER. (test 77 ML/MIN/1.73 code = 91845) CALC BUN/CREAT (test code = 12 RATIO [...] (test code = 2219) 32 U/L LIPID [id number] 00:00:00 Test Item Value Reference Range Interpretation Comments CHOLESTEROL (test code = 2210) 420 MG/DL TRIGLYCERIDES (test code = 2232) 262 MG/DL HDL CHOLESTEROL (test code = 2220) 95 MG/DL CALC LDL CHOL (test code = 2237) 273 MG/DL RISK RATIO LDL/HDL (test code = 2.87 RATIO 2238) LIPID [id number] 00:00:00 Test Item Value Reference Range Interpretation Comments CHOLESTEROL (test code = 2210) 420 MG/DL TRIGLYCERIDES (test code = 2232) 262 MG/DL HDL CHOLESTEROL (test code = 2220) 95 MG/DL CALC LDL CHOL (test code = 2237) 273 MG/DL RISK RATIO LDL/HDL (test code = 2.87 RATIO 2238) CBC W/AUTO [id number] 00:00:00 Test Item Value Reference Range Interpretation [...] code = 1015) 330 K/UL CBC W/AUTO [id number] 00:00:00 Test Item Value Reference Range Interpretation [...] code = 1015) 330 K/UL CBC W/AUTO [id number] 00:00:00 Test Item Value Reference Range Interpretation [...] COUNT (test code = 1015) 330 K/UL [id number] 00:00:00 Test Item Value Reference Range Interpretation Comments AMYLASE (test code = 2205) 48 U/L [id number] 00:00:00 Test Item Value Reference Range Interpretation Comments AMYLASE (test code = 2205) 48 U/L [id number] 00:00:00 Test Item Value Reference Range Interpretation Comments LIPASE (test code = 2058) 69 U/L [id number] 00:00:00 Test Item Value Reference Range Interpretation Comments LIPASE (test code = 2058) 69 U/L [id number] 00:00:00 Test Item Value Reference Range Interpretation Comments LIPASE (test code = 2058) 69 U/L COMPREHENSIVE METABOLIC [id number] 00:00:00 Test Item Value Reference Range Interpretation Comments GLUCOSE (test code = 2217) 206 MG/DL BUN (test code = 2208) 10 MG/DL CREATININE (test code = 2214) 0.83 MG/DL eGFR AMER. (test code 89 ML/MIN/1.73 = 99582) eGFR NON- AMER. (test 77 ML/MIN/1.73 code = 68285) CALC BUN/CREAT (test code = 12 RATIO [...] code = 2219) 32 U/L COMPREHENSIVE METABOLIC [id number] 00:00:00 Test Item Value Reference Range Interpretation Comments GLUCOSE (test code = 2217) 206 MG/DL BUN (test code = 2208) 10 MG/DL CREATININE (test code = 2214) 0.83 MG/DL eGFR AMER. (test code 89 ML/MIN/1.73 = 57385) eGFR NON- AMER. (test 77 ML/MIN/1.73 code = 24436) CALC BUN/CREAT (test code = 12 RATIO [...] (test code = 2219) 32 U/L LIPID [id number] 00:00:00 Test Item Value Reference Range Interpretation Comments CHOLESTEROL (test code = 2210) 420 MG/DL TRIGLYCERIDES (test code = 2232) 262 MG/DL HDL CHOLESTEROL (test code = 2220) 95 MG/DL CALC LDL CHOL (test code = 2237) 273 MG/DL RISK RATIO LDL/HDL (test code = 2.87 RATIO 2238) LIPID [id number] 00:00:00 Test Item Value Reference Range Interpretation Comments CHOLESTEROL (test code = 2210) 420 MG/DL TRIGLYCERIDES (test code = 2232) 262 MG/DL HDL CHOLESTEROL (test code = 2220) 95 MG/DL CALC LDL CHOL (test code = 2237) 273 MG/DL RISK RATIO LDL/HDL (test code = 2.87 RATIO 2238) CBC W/AUTO [id number] 00:00:00 Test Item Value Reference Range Interpretation [...] code = 1015) 330 K/UL CBC W/AUTO [id number] 00:00:00 Test Item Value Reference Range Interpretation [...] code = 1015) 330 K/UL CBC W/AUTO [id number] 00:00:00 Test Item Value Reference Range Interpretation [...] COUNT (test code = 1015) 330 K/UL [id number] 00:00:00 Test Item Value Reference Range Interpretation Comments AMYLASE (test code = 2205) 48 U/L [id number] 00:00:00 Test Item Value Reference Range Interpretation Comments AMYLASE (test code = 2205) 48 U/L [id number] 00:00:00 Test Item Value Reference Range Interpretation Comments LIPASE (test code = 2058) 69 U/L [id number] 00:00:00 Test Item Value Reference Range Interpretation Comments LIPASE (test code = 2058) 69 U/L [id number] 00:00:00 Test Item Value Reference Range Interpretation Comments LIPASE (test code = 2058) 69 U/L LIPID [id number] 00:00:00 Test Item Value Reference Range Interpretation Comments CHOLESTEROL (test code = 2210) 283 MG/DL TRIGLYCERIDES (test code = 2232) 206 MG/DL HDL CHOLESTEROL (test code = 2220) 86 MG/DL CALC LDL CHOL (test code = 2237) 156 MG/DL RISK RATIO LDL/HDL (test code = 1.81 RATIO 2238) LIPID [id number] 00:00:00 Test Item Value Reference Range Interpretation Comments CHOLESTEROL (test code = 2210) 283 MG/DL TRIGLYCERIDES (test code = 2232) 206 MG/DL HDL CHOLESTEROL (test code = 2220) 86 MG/DL CALC LDL CHOL (test code = 2237) 156 MG/DL RISK RATIO LDL/HDL (test code = 1.81 RATIO 2238) HEMOGLOBIN [id number] 00:00:00 Test Item Value Reference Range Interpretation Comments HEMOGLOBIN A1c (test code = 69309) 6.9 % HEMOGLOBIN [id number] 00:00:00 Test Item Value Reference Range Interpretation Comments HEMOGLOBIN A1c (test code = 26487) 6.9 % HEMOGLOBIN [id number] 00:00:00 Test Item Value Reference Range Interpretation Comments HEMOGLOBIN A1c (test code = 68408) 6.9 % COMPREHENSIVE METABOLIC [id number] 00:00:00 Test Item Value Reference Range Interpretation Comments GLUCOSE (test code = 2217) 131 MG/DL BUN (test code = 2208) 15 MG/DL CREATININE (test code = 2214) 1.01 MG/DL eGFR AMER. (test code 71 ML/MIN/1.73 = 82116) eGFR NON- AMER. (test 61 ML/MIN/1.73 code = 90428) CALC BUN/CREAT (test code = 15 RATIO [...] = 0.4 MG/DL 2207) ALKALINE PHOSPHATASE (test 66 U/L code = 2204) AST (test code = 2218) 51 U/L ALT (test code = 2219) 37 U/L COMPREHENSIVE METABOLIC [id number] 00:00:00 Test Item Value Reference Range Interpretation Comments GLUCOSE (test code = 2217) 131 MG/DL BUN (test code = 2208) 15 MG/DL CREATININE (test code = 2214) 1.01 MG/DL eGFR AMER. (test code 71 ML/MIN/1.73 = 84794) eGFR NON- AMER. (test 61 ML/MIN/1.73 code = 95142) CALC BUN/CREAT (test code = 15 RATIO [...] (test code = 2219) 37 U/L LIPID [id number] 00:00:00 Test Item Value Reference Range Interpretation Comments CHOLESTEROL (test code = 2210) 283 MG/DL TRIGLYCERIDES (test code = 2232) 206 MG/DL HDL CHOLESTEROL (test code = 2220) 86 MG/DL CALC LDL CHOL (test code = 2237) 156 MG/DL RISK RATIO LDL/HDL (test code = 1.81 RATIO 2238) LIPID [id number] 00:00:00 Test Item Value Reference Range Interpretation Comments CHOLESTEROL (test code = 2210) 283 MG/DL TRIGLYCERIDES (test code = 2232) 206 MG/DL HDL CHOLESTEROL (test code = 2220) 86 MG/DL CALC LDL CHOL (test code = 2237) 156 MG/DL RISK RATIO LDL/HDL (test code = 1.81 RATIO 2238) HEMOGLOBIN [id number] 00:00:00 Test Item Value Reference Range Interpretation Comments HEMOGLOBIN A1c (test code = 19750) 6.9 % HEMOGLOBIN [id number] 00:00:00 Test Item Value Reference Range Interpretation Comments HEMOGLOBIN A1c (test code = 22857) 6.9 % HEMOGLOBIN [id number] 00:00:00 Test Item Value Reference Range Interpretation Comments HEMOGLOBIN A1c (test code = 66739) 6.9 % COMPREHENSIVE METABOLIC [id number] 00:00:00 Test Item Value Reference Range Interpretation Comments GLUCOSE (test code = 2217) 131 MG/DL BUN (test code = 2208) 15 MG/DL CREATININE (test code = 2214) 1.01 MG/DL eGFR AMER. (test code 71 ML/MIN/1.73 = 24598) eGFR NON- AMER. (test 61 ML/MIN/1.73 code = 56916) CALC BUN/CREAT (test code = 15 RATIO [...] code = 2219) 37 U/L COMPREHENSIVE METABOLIC [id number] 00:00:00 Test Item Value Reference Range Interpretation Comments GLUCOSE (test code = 2217) 131 MG/DL BUN (test code = 2208) 15 MG/DL CREATININE (test code = 2214) 1.01 MG/DL eGFR AMER. (test code 71 ML/MIN/1.73 = 93684) eGFR NON- AMER. (test 61 ML/MIN/1.73 code = 98672) CALC BUN/CREAT (test code = 15 RATIO [...] (test code = 2219) 37 U/L LIPID [id number] 00:00:00 Test Item Value Reference Range Interpretation Comments CHOLESTEROL (test code = 2210) 283 MG/DL TRIGLYCERIDES (test code = 2232) 206 MG/DL HDL CHOLESTEROL (test code = 2220) 86 MG/DL CALC LDL CHOL (test code = 2237) 156 MG/DL RISK RATIO LDL/HDL (test code = 1.81 RATIO 2238) LIPID [id number] 00:00:00 Test Item Value Reference Range Interpretation Comments CHOLESTEROL (test code = 2210) 283 MG/DL TRIGLYCERIDES (test code = 2232) 206 MG/DL HDL CHOLESTEROL (test code = 2220) 86 MG/DL CALC LDL CHOL (test code = 2237) 156 MG/DL RISK RATIO LDL/HDL (test code = 1.81 RATIO 2238) HEMOGLOBIN [id number] 00:00:00 Test Item Value Reference Range Interpretation Comments HEMOGLOBIN A1c (test code = 17493) 6.9 % HEMOGLOBIN [id number] 00:00:00 Test Item Value Reference Range Interpretation Comments HEMOGLOBIN A1c (test code = 56759) 6.9 % HEMOGLOBIN [id number] 00:00:00 Test Item Value Reference Range Interpretation Comments HEMOGLOBIN A1c (test code = 37560) 6.9 % COMPREHENSIVE METABOLIC [id number] 00:00:00 Test Item Value Reference Range Interpretation Comments GLUCOSE (test code = 2217) 131 MG/DL BUN (test code = 2208) 15 MG/DL CREATININE (test code = 2214) 1.01 MG/DL eGFR AMER. (test code 71 ML/MIN/1.73 = 31149) eGFR NON- AMER. (test 61 ML/MIN/1.73 code = 84251) CALC BUN/CREAT (test code = 15 RATIO [...] CALC GLOBULIN (test code = 2.8 G/DL 2240) CALC A/G RATIO (test code = 1.6 RATIO 2234) BILIRUBIN, TOTAL (test code = 0.4 MG/DL 2206) ALKALINE PHOSPHATASE (test 66 U/L code = 2204) AST (test code = 2218) 51 U/L ALT (test code = 2219) 37 U/L COMPREHENSIVE METABOLIC [id number] 00:00:00 Test Item Value Reference Range Interpretation Comments GLUCOSE (test code = 2217) 131 MG/DL BUN (test code = 2208) 15 MG/DL CREATININE (test code = 2214) 1.01 MG/DL eGFR AMER. (test code 71 ML/MIN/1.73 = 95095) eGFR NON- AMER. (test 61 ML/MIN/1.73 code = 92557) CALC BUN/CREAT (test code = 15 RATIO [...] CALC GLOBULIN (test code = 2.8 G/DL 2240) CALC A/G RATIO (test code = 1.6 RATIO 2234) BILIRUBIN, TOTAL (test code = 0.4 MG/DL 2207) ALKALINE PHOSPHATASE (test 66 U/L code = 2204) AST (test code = 2218) 51 U/L ALT (test code = 2219) 37 U/L HEMOGLOBIN [id number] 00:00:00 Test Item Value Reference Range Interpretation Comments HEMOGLOBIN A1c (test code = 82432) 6.5 % HEMOGLOBIN [id number] 00:00:00 Test Item Value Reference Range Interpretation Comments HEMOGLOBIN A1c (test code = 89604) 6.5 % HEMOGLOBIN [id number] 00:00:00 Test Item Value Reference Range Interpretation Comments HEMOGLOBIN A1c (test code = 70550) 6.5 % CBC W/AUTO [id number] 00:00:00 Test Item Value Reference Range Interpretation [...] code = 1015) 291 K/UL CBC W/AUTO [id number] 00:00:00 Test Item Value Reference Range Interpretation [...] code = 1015) 291 K/UL CBC W/AUTO [id number] 00:00:00 Test Item Value Reference Range Interpretation [...] code = 1015) 291 K/UL COMPREHENSIVE METABOLIC [id number] 00:00:00 Test Item Value Reference Range Interpretation Comments GLUCOSE (test code = 2217) 133 MG/DL BUN (test code = 2208) 9 MG/DL CREATININE (test code = 2214) 0.67 MG/DL eGFR AMER. (test code 113 ML/MIN/1.73 = 61432) eGFR NON- AMER. (test 98 ML/MIN/1.73 code = 13956) CALC BUN/CREAT (test code = 13 RATIO [...] code = 2219) 42 U/L COMPREHENSIVE METABOLIC [id number] 00:00:00 Test Item Value Reference Range Interpretation Comments GLUCOSE (test code = 2217) 133 MG/DL BUN (test code = 2208) 9 MG/DL CREATININE (test code = 2214) 0.67 MG/DL eGFR AMER. (test code 113 ML/MIN/1.73 = 69899) eGFR NON- AMER. (test 98 ML/MIN/1.73 code = 66198) CALC BUN/CREAT (test code = 13 RATIO [...] A/G RATIO (test code = 2.0 RATIO 4) BILIRUBIN, TOTAL (test code = 0.2 MG/DL 2206) ALKALINE PHOSPHATASE (test 60 U/L code = 2204) AST (test code = 2218) 34 U/L ALT (test code = 2219) 42 U/L LIPID [id number] 00:00:00 Test Item Value Reference Range Interpretation Comments CHOLESTEROL (test code = 2210) 234 MG/DL TRIGLYCERIDES (test code = 2232) 216 MG/DL HDL CHOLESTEROL (test code = 2220) 56 MG/DL CALC LDL CHOL (test code = 2237) 135 MG/DL RISK RATIO LDL/HDL (test code = 2.41 RATIO 2238) LIPID [id number] 00:00:00 Test Item Value Reference Range Interpretation [...] (test code = 2821) 2.8 UIU/ML HEMOGLOBIN [id number] 00:00:00 Test Item Value Reference Range Interpretation Comments HEMOGLOBIN A1c (test code = 97427) 6.5 % HEMOGLOBIN [id number] 00:00:00 Test Item Value Reference Range Interpretation Comments HEMOGLOBIN A1c (test code = 52448) 6.5 % HEMOGLOBIN [id number] 00:00:00 Test Item Value Reference Range Interpretation Comments HEMOGLOBIN A1c (test code = 00051) 6.5 % CBC W/AUTO [id number] 00:00:00 Test Item Value Reference Range Interpretation [...] code = 1015) 291 K/UL CBC W/AUTO [id number] 00:00:00 Test Item Value Reference Range Interpretation [...] code = 1015) 291 K/UL CBC W/AUTO [id number] 00:00:00 Test Item Value Reference Range Interpretation [...] code = 1015) 291 K/UL COMPREHENSIVE METABOLIC [id number] 00:00:00 Test Item Value Reference Range Interpretation Comments GLUCOSE (test code = 2217) 133 MG/DL BUN (test code = 2208) 9 MG/DL CREATININE (test code = 2214) 0.67 MG/DL eGFR AMER. (test code 113 ML/MIN/1.73 = 17832) eGFR NON- AMER. (test 98 ML/MIN/1.73 code = 97093) CALC BUN/CREAT (test code = 13 RATIO [...] code = 2219) 42 U/L COMPREHENSIVE METABOLIC [id number] 00:00:00 Test Item Value Reference Range Interpretation Comments GLUCOSE (test code = 2217) 133 MG/DL BUN (test code = 2208) 9 MG/DL CREATININE (test code = 2214) 0.67 MG/DL eGFR AMER. (test code 113 ML/MIN/1.73 = 10115) eGFR NON- AMER. (test 98 ML/MIN/1.73 code = 30625) CALC BUN/CREAT (test code = 13 RATIO [...] (test code = 2219) 42 U/L LIPID [id number] 00:00:00 Test Item Value Reference Range Interpretation Comments CHOLESTEROL (test code = 2210) 234 MG/DL TRIGLYCERIDES (test code = 2232) 216 MG/DL HDL CHOLESTEROL (test code = 2220) 56 MG/DL CALC LDL CHOL (test code = 2237) 135 MG/DL RISK RATIO LDL/HDL (test code = 2.41 RATIO 2238) LIPID [id number] 00:00:00 Test Item Value Reference Range Interpretation [...] (test code = 2821) 2.8 UIU/ML HEMOGLOBIN [id number] 00:00:00 Test Item Value Reference Range Interpretation Comments HEMOGLOBIN A1c (test code = 60419) 6.5 % HEMOGLOBIN [id number] 00:00:00 Test Item Value Reference Range Interpretation Comments HEMOGLOBIN A1c (test code = 68586) 6.5 % HEMOGLOBIN [id number] 00:00:00 Test Item Value Reference Range Interpretation Comments HEMOGLOBIN A1c (test code = 79939) 6.5 % CBC W/AUTO [id number] 00:00:00 Test Item Value Reference Range Interpretation [...] code = 1015) 291 K/UL CBC W/AUTO [id number] 00:00:00 Test Item Value Reference Range Interpretation [...] code = 1015) 291 K/UL CBC W/AUTO [id number] 00:00:00 Test Item Value Reference Range Interpretation [...] code = 1015) 291 K/UL COMPREHENSIVE METABOLIC [id number] 00:00:00 Test Item Value Reference Range Interpretation Comments GLUCOSE (test code = 2217) 133 MG/DL BUN (test code = 2208) 9 MG/DL CREATININE (test code = 2214) 0.67 MG/DL eGFR AMER. (test code 113 ML/MIN/1.73 = 97817) eGFR NON- AMER. (test 98 ML/MIN/1.73 code = 90062) CALC BUN/CREAT (test code = 13 RATIO [...] A/G RATIO (test code = 2.0 RATIO 4) BILIRUBIN, TOTAL (test code = 0.2 MG/DL 2206) ALKALINE PHOSPHATASE (test 60 U/L code = 2204) AST (test code = 2218) 34 U/L ALT (test code = 2219) 42 U/L COMPREHENSIVE METABOLIC [id number] 00:00:00 Test Item Value Reference Range Interpretation Comments GLUCOSE (test code = 2217) 133 MG/DL BUN (test code = 2208) 9 MG/DL CREATININE (test code = 2214) 0.67 MG/DL eGFR AMER. (test code 113 ML/MIN/1.73 = 62174) eGFR NON- AMER. (test 98 ML/MIN/1.73 code = 33251) CALC BUN/CREAT (test code = 13 RATIO [...] (test code = 2219) 42 U/L LIPID [id number] 00:00:00 Test Item Value Reference Range Interpretation Comments CHOLESTEROL (test code = 2210) 234 MG/DL TRIGLYCERIDES (test code = 2232) 216 MG/DL HDL CHOLESTEROL (test code = 2220) 56 MG/DL CALC LDL CHOL (test code = 2237) 135 MG/DL RISK RATIO LDL/HDL (test code = 2.41 RATIO 2238) LIPID [id number] 00:00:00 Test Item Value Reference Range Interpretation [...] code = 2821) 2.8 UIU/ML COMPREHENSIVE METABOLIC [id number] 00:00:00 Test Item Value Reference Range Interpretation Comments GLUCOSE (test code = 2217) 131 MG/DL BUN (test code = 2208) 16 MG/DL CREATININE (test code = 2214) 1.66 MG/DL eGFR AMER. (test code 40 ML/MIN/1.73 = 23321) eGFR NON- AMER. (test 34 ML/MIN/1.73 code = 35232) CALCULATED BUN/CREAT (test 10 RATIO code = [...] code = 2219) 46 U/L COMPREHENSIVE METABOLIC [id number] 00:00:00 Test Item Value Reference Range Interpretation Comments GLUCOSE (test code = 2217) 131 MG/DL BUN (test code = 2208) 16 MG/DL CREATININE (test code = 2214) 1.66 MG/DL eGFR AMER. (test code 40 ML/MIN/1.73 = 19576) eGFR NON- AMER. (test 34 ML/MIN/1.73 code = 04408) CALCULATED BUN/CREAT (test 10 RATIO code = [...] BILIRUBIN, TOTAL (test code = 1.0 MG/DL 2207) ALKALINE PHOSPHATASE (test 55 U/L code = 2204) SGOT (AST) (test code = 2218) 50 U/L SGPT (ALT) (test code = 2219) 46 U/L LIPID [id number] 00:00:00 Test Item Value Reference Range Interpretation Comments CHOLESTEROL (test code = 2210) 230 MG/DL TRIGLYCERIDES (test code = 2232) 226 MG/DL HDL CHOLESTEROL (test code = 2220) 53 MG/DL CALCULATED LDL CHOL (test code = 132 MG/DL 2237) RISK RATIO LDL/HDL (test code = 2.49 RATIO 2238) LIPID [id number] 00:00:00 Test Item Value Reference Range Interpretation Comments CHOLESTEROL (test code = 2210) 230 MG/DL TRIGLYCERIDES (test code = 2232) 226 MG/DL HDL CHOLESTEROL (test code = 2220) 53 MG/DL CALCULATED LDL CHOL (test code = 132 MG/DL 2237) RISK RATIO LDL/HDL (test code = 2.49 RATIO 2238) CBC W/AUTO [id number] 00:00:00 Test Item Value Reference Range Interpretation [...] code = 1015) 108 K/UL CBC W/AUTO [id number] 00:00:00 Test Item Value Reference Range Interpretation [...] code = 1015) 108 K/UL CBC W/AUTO [id number] 00:00:00 Test Item Value Reference Range Interpretation [...] (test code = 1015) 108 K/UL HEMOGLOBIN [id number] 00:00:00 Test Item Value Reference Range Interpretation Comments HEMOGLOBIN A1c (test code = 56784) 6.1 % HEMOGLOBIN [id number] 00:00:00 Test Item Value Reference Range Interpretation Comments HEMOGLOBIN A1c (test code = 22520) 6.1 % HEMOGLOBIN [id number] 00:00:00 Test Item Value Reference Range Interpretation Comments HEMOGLOBIN A1c (test code = 79951) 6.1 % [id number] 00:00:00 Test Item Value Reference Range Interpretation Comments TSH (test code = 2821) 5.7 UIU/ML [id number] 00:00:00 Test Item Value Reference Range Interpretation Comments TSH (test code = 2821) 5.7 UIU/ML [id number] 00:00:00 Test Item Value Reference Range Interpretation Comments TSH (test code = 2821) 5.7 UIU/ML VITAMIN D, 25 [id number] 00:00:00 Test Item Value Reference Range Interpretation Comments VITAMIN D, 25 OH (test code = 4958) 7 NG/ML VITAMIN D, 25 [id number] 00:00:00 Test Item Value Reference Range Interpretation Comments VITAMIN D, 25 OH (test code = 4958) 7 NG/ML VITAMIN B 12 AND FOLIC [id number] 00:00:00 Test Item Value Reference Range Interpretation Comments VITAMIN B-12 (test code = 2840) 569 PG/ML FOLIC ACID (test code = 2695) 16.8 NG/ML VITAMIN B 12 AND FOLIC [id number] 00:00:00 Test Item Value Reference Range Interpretation Comments VITAMIN B-12 (test code = 2840) 569 PG/ML FOLIC ACID (test code = 2695) 16.8 NG/ML COMPREHENSIVE METABOLIC [id number] 00:00:00 Test Item Value Reference Range Interpretation Comments GLUCOSE (test code = 2217) 131 MG/DL BUN (test code = 2208) 16 MG/DL CREATININE (test code = 2214) 1.66 MG/DL eGFR AMER. (test code 40 ML/MIN/1.73 = 81028) eGFR NON- AMER. (test 34 ML/MIN/1.73 code = 34010) CALCULATED BUN/CREAT (test 10 RATIO code = [...] code = 2219) 46 U/L COMPREHENSIVE METABOLIC [id number] 00:00:00 Test Item Value Reference Range Interpretation Comments GLUCOSE (test code = 2217) 131 MG/DL BUN (test code = 2208) 16 MG/DL CREATININE (test code = 2214) 1.66 MG/DL eGFR AMER. (test code 40 ML/MIN/1.73 = 64507) eGFR NON- AMER. (test 34 ML/MIN/1.73 code = 66919) CALCULATED BUN/CREAT (test 10 RATIO code = [...] (test code = 2219) 46 U/L LIPID [id number] 00:00:00 Test Item Value Reference Range Interpretation Comments CHOLESTEROL (test code = 2210) 230 MG/DL TRIGLYCERIDES (test code = 2232) 226 MG/DL HDL CHOLESTEROL (test code = 2220) 53 MG/DL CALCULATED LDL CHOL (test code = 132 MG/DL 2236) RISK RATIO LDL/HDL (test code = 2.49 RATIO 2238) LIPID [id number] 00:00:00 Test Item Value Reference Range Interpretation Comments CHOLESTEROL (test code = 2210) 230 MG/DL TRIGLYCERIDES (test code = 2232) 226 MG/DL HDL CHOLESTEROL (test code = 2220) 53 MG/DL CALCULATED LDL CHOL (test code = 132 MG/DL 2236) RISK RATIO LDL/HDL (test code = 2.49 RATIO 2238) CBC W/AUTO [id number] 00:00:00 Test Item Value Reference Range Interpretation [...] code = 1015) 108 K/UL CBC W/AUTO [id number] 00:00:00 Test Item Value Reference Range Interpretation [...] code = 1015) 108 K/UL CBC W/AUTO [id number] 00:00:00 Test Item Value Reference Range Interpretation [...] (test code = 1015) 108 K/UL HEMOGLOBIN [id number] 00:00:00 Test Item Value Reference Range Interpretation Comments HEMOGLOBIN A1c (test code = 23362) 6.1 % HEMOGLOBIN [id number] 00:00:00 Test Item Value Reference Range Interpretation Comments HEMOGLOBIN A1c (test code = 27704) 6.1 % HEMOGLOBIN [id number] 00:00:00 Test Item Value Reference Range Interpretation Comments HEMOGLOBIN A1c (test code = 43319) 6.1 % [id number] 00:00:00 Test Item Value Reference Range Interpretation Comments TSH (test code = 2821) 5.7 UIU/ML [id number] 00:00:00 Test Item Value Reference Range Interpretation Comments TSH (test code = 2821) 5.7 UIU/ML [id number] 00:00:00 Test Item Value Reference Range Interpretation Comments TSH (test code = 2821) 5.7 UIU/ML VITAMIN D, 25 [id number] 00:00:00 Test Item Value Reference Range Interpretation Comments VITAMIN D, 25 OH (test code = 4958) 7 NG/ML VITAMIN D, 25 [id number] 00:00:00 Test Item Value Reference Range Interpretation Comments VITAMIN D, 25 OH (test code = 4958) 7 NG/ML VITAMIN B 12 AND FOLIC [id number] 00:00:00 Test Item Value Reference Range Interpretation Comments VITAMIN B-12 (test code = 2840) 569 PG/ML FOLIC ACID (test code = 2695) 16.8 NG/ML VITAMIN B 12 AND FOLIC [id number] 00:00:00 Test Item Value Reference Range Interpretation Comments VITAMIN B-12 (test code = 2840) 569 PG/ML FOLIC ACID (test code = 2695) 16.8 NG/ML COMPREHENSIVE METABOLIC [id number] 00:00:00 Test Item Value Reference Range Interpretation Comments GLUCOSE (test code = 2217) 131 MG/DL BUN (test code = 2208) 16 MG/DL CREATININE (test code = 2214) 1.66 MG/DL eGFR AMER. (test code 40 ML/MIN/1.73 = 90736) eGFR NON- AMER. (test 34 ML/MIN/1.73 code = 31144) CALCULATED BUN/CREAT (test 10 RATIO code = [...] code = 2219) 46 U/L COMPREHENSIVE METABOLIC [id number] 00:00:00 Test Item Value Reference Range Interpretation Comments GLUCOSE (test code = 2217) 131 MG/DL BUN (test code = 2208) 16 MG/DL CREATININE (test code = 2214) 1.66 MG/DL eGFR AMER. (test code 40 ML/MIN/1.73 = 05599) eGFR NON- AMER. (test 34 ML/MIN/1.73 code = 79134) CALCULATED BUN/CREAT (test 10 RATIO code = [...] (test code = 2219) 46 U/L LIPID [id number] 00:00:00 Test Item Value Reference Range Interpretation Comments CHOLESTEROL (test code = 2210) 230 MG/DL TRIGLYCERIDES (test code = 2232) 226 MG/DL HDL CHOLESTEROL (test code = 2220) 53 MG/DL CALCULATED LDL CHOL (test code = 132 MG/DL 2237) RISK RATIO LDL/HDL (test code = 2.49 RATIO 2238) LIPID [id number] 00:00:00 Test Item Value Reference Range Interpretation Comments CHOLESTEROL (test code = 2210) 230 MG/DL TRIGLYCERIDES (test code = 2232) 226 MG/DL HDL CHOLESTEROL (test code = 2220) 53 MG/DL CALCULATED LDL CHOL (test code = 132 MG/DL 2237) RISK RATIO LDL/HDL (test code = 2.49 RATIO 2238) CBC W/AUTO [id number] 00:00:00 Test Item Value Reference Range Interpretation [...] code = 1015) 108 K/UL CBC W/AUTO [id number] 00:00:00 Test Item Value Reference Range Interpretation [...] code = 1015) 108 K/UL CBC W/AUTO [id number] 00:00:00 Test Item Value Reference Range Interpretation [...] (test code = 1015) 108 K/UL HEMOGLOBIN [id number] 00:00:00 Test Item Value Reference Range Interpretation Comments HEMOGLOBIN A1c (test code = 65388) 6.1 % HEMOGLOBIN [id number] 00:00:00 Test Item Value Reference Range Interpretation Comments HEMOGLOBIN A1c (test code = 49732) 6.1 % HEMOGLOBIN [id number] 00:00:00 Test Item Value Reference Range Interpretation Comments HEMOGLOBIN A1c (test code = 22279) 6.1 % [id number] 00:00:00 Test Item Value Reference Range Interpretation Comments TSH (test code = 2821) 5.7 UIU/ML [id number] 00:00:00 Test Item Value Reference Range Interpretation Comments TSH (test code = 2821) 5.7 UIU/ML [id number] 00:00:00 Test Item Value Reference Range Interpretation Comments TSH (test code = 2821) 5.7 UIU/ML VITAMIN D, 25 [id number] 00:00:00 Test Item Value Reference Range Interpretation Comments VITAMIN D, 25 OH (test code = 4958) 7 NG/ML VITAMIN D, 25 [id number] 00:00:00 Test Item Value Reference Range Interpretation Comments VITAMIN D, 25 OH (test code = 4958) 7 NG/ML VITAMIN B 12 AND FOLIC [id number] 00:00:00 Test Item Value Reference Range Interpretation Comments VITAMIN B-12 (test code = 2840) 569 PG/ML FOLIC ACID (test code = 2695) 16.8 NG/ML VITAMIN B 12 AND FOLIC [id number] 00:00:00 Test Item Value Reference Range Interpretation Comments VITAMIN B-12 (test code = 2840) 569 PG/ML FOLIC ACID (test code = 2695) 16.8 NG/ML COMPREHENSIVE METABOLIC [id number] 00:00:00 Test Item Value Reference Range Interpretation Comments GLUCOSE (test code = 2217) 116 MG/DL BUN (test code = 2208) 14 MG/DL CREATININE (test code = 2214) 0.6 MG/DL eGFR AMER. (test code 125 ML/MIN/1.73 = 02803) eGFR NON- AMER. (test 103 ML/MIN/1.73 code = 55271) CALCULATED BUN/CREAT (test 23 RATIO code = [...] code = 2219) 39 U/L COMPREHENSIVE METABOLIC [id number] 00:00:00 Test Item Value Reference Range Interpretation Comments GLUCOSE (test code = 2217) 116 MG/DL BUN (test code = 2208) 14 MG/DL CREATININE (test code = 2214) 0.6 MG/DL eGFR AMER. (test code 125 ML/MIN/1.73 = 30463) eGFR NON- AMER. (test 103 ML/MIN/1.73 code = 84614) CALCULATED BUN/CREAT (test 23 RATIO code = [...] (test code = 2219) 39 U/L LIPID [id number] 00:00:00 Test Item Value Reference Range Interpretation Comments CHOLESTEROL (test code = 2210) 305 MG/DL TRIGLYCERIDES (test code = 2232) 99 MG/DL HDL CHOLESTEROL (test code = 2220) 87 MG/DL CALCULATED LDL CHOL (test code = 198 MG/DL 2237) RISK RATIO LDL/HDL (test code = 2.28 RATIO 2238) LIPID [id number] 00:00:00 Test Item Value Reference Range Interpretation Comments CHOLESTEROL (test code = 2210) 305 MG/DL TRIGLYCERIDES (test code = 2232) 99 MG/DL HDL CHOLESTEROL (test code = 2220) 87 MG/DL CALCULATED LDL CHOL (test code = 198 MG/DL 2237) RISK RATIO LDL/HDL (test code = 2.28 RATIO 2238) [id number] 00:00:00 Test Item Value Reference Range Interpretation Comments TSH (test code = 2821) 1.4 UIU/ML [id number] 00:00:00 Test Item Value Reference Range Interpretation Comments TSH (test code = 2821) 1.4 UIU/ML [id number] 00:00:00 Test Item Value Reference Range Interpretation Comments TSH (test code = 2821) 1.4 UIU/ML COMPREHENSIVE METABOLIC [id number] 00:00:00 Test Item Value Reference Range Interpretation Comments GLUCOSE (test code = 2217) 116 MG/DL BUN (test code = 2208) 14 MG/DL CREATININE (test code = 2214) 0.6 MG/DL eGFR AMER. (test code 125 ML/MIN/1.73 = 65330) eGFR NON- AMER. (test 103 ML/MIN/1.73 code = 04647) CALCULATED BUN/CREAT (test 23 RATIO code = [...] code = 2219) 39 U/L COMPREHENSIVE METABOLIC [id number] 00:00:00 Test Item Value Reference Range Interpretation Comments GLUCOSE (test code = 2217) 116 MG/DL BUN (test code = 2208) 14 MG/DL CREATININE (test code = 2214) 0.6 MG/DL eGFR AMER. (test code 125 ML/MIN/1.73 = 10592) eGFR NON- AMER. (test 103 ML/MIN/1.73 code = 47480) CALCULATED BUN/CREAT (test 23 RATIO code = [...] (test code = 2219) 39 U/L LIPID [id number] 00:00:00 Test Item Value Reference Range Interpretation Comments CHOLESTEROL (test code = 2210) 305 MG/DL TRIGLYCERIDES (test code = 2232) 99 MG/DL HDL CHOLESTEROL (test code = 2220) 87 MG/DL CALCULATED LDL CHOL (test code = 198 MG/DL 2237) RISK RATIO LDL/HDL (test code = 2.28 RATIO 2238) LIPID [id number] 00:00:00 Test Item Value Reference Range Interpretation Comments CHOLESTEROL (test code = 2210) 305 MG/DL TRIGLYCERIDES (test code = 2232) 99 MG/DL HDL CHOLESTEROL (test code = 2220) 87 MG/DL CALCULATED LDL CHOL (test code = 198 MG/DL 2237) RISK RATIO LDL/HDL (test code = 2.28 RATIO 2238) [id number] 00:00:00 Test Item Value Reference Range Interpretation Comments TSH (test code = 2821) 1.4 UIU/ML [id number] 00:00:00 Test Item Value Reference Range Interpretation Comments TSH (test code = 2821) 1.4 UIU/ML [id number] 00:00:00 Test Item Value Reference Range Interpretation Comments TSH (test code = 2821) 1.4 UIU/ML COMPREHENSIVE METABOLIC [id number] 00:00:00 Test Item Value Reference Range Interpretation Comments GLUCOSE (test code = 2217) 116 MG/DL BUN (test code = 2208) 14 MG/DL CREATININE (test code = 2214) 0.6 MG/DL eGFR AMER. (test code 125 ML/MIN/1.73 = 45947) eGFR NON- AMER. (test 103 ML/MIN/1.73 code = 89863) CALCULATED BUN/CREAT (test 23 RATIO code = [...] code = 2219) 39 U/L COMPREHENSIVE METABOLIC [id number] 00:00:00 Test Item Value Reference Range Interpretation Comments GLUCOSE (test code = 2217) 116 MG/DL BUN (test code = 2208) 14 MG/DL CREATININE (test code = 2214) 0.6 MG/DL eGFR AMER. (test code 125 ML/MIN/1.73 = 14719) eGFR NON- AMER. (test 103 ML/MIN/1.73 code = 04295) CALCULATED BUN/CREAT (test 23 RATIO code = [...] (test code = 2219) 39 U/L LIPID [id number] 00:00:00 Test Item Value Reference Range Interpretation Comments CHOLESTEROL (test code = 2210) 305 MG/DL TRIGLYCERIDES (test code = 2232) 99 MG/DL HDL CHOLESTEROL (test code = 2220) 87 MG/DL CALCULATED LDL CHOL (test code = 198 MG/DL 2237) RISK RATIO LDL/HDL (test code = 2.28 RATIO 2238) LIPID [id number] 00:00:00 Test Item Value Reference Range Interpretation Comments CHOLESTEROL (test code = 2210) 305 MG/DL TRIGLYCERIDES (test code = 2232) 99 MG/DL HDL CHOLESTEROL (test code = 2220) 87 MG/DL CALCULATED LDL CHOL (test code = 198 MG/DL 2237) RISK RATIO LDL/HDL (test code = 2.28 RATIO 2238) [id number] 00:00:00 Test Item Value Reference Range Interpretation Comments TSH (test code = 2821) 1.4 UIU/ML [id number] 00:00:00 Test Item Value Reference Range Interpretation Comments TSH (test code = 2821) 1.4 UIU/ML [id number] 00:00:00 Test Item Value Reference Range Interpretation Comments TSH (test code = 2821) 1.4 UIU/ML CBC W/AUTO [id number] 00:00:00 Test Item Value Reference Range Interpretation [...] code = 1015) 240 K/UL CBC W/AUTO [id number] 00:00:00 Test Item Value Reference Range Interpretation [...] code = 1015) 240 K/UL CBC W/AUTO [id number] 00:00:00 Test Item Value Reference Range Interpretation [...] (test code = 1015) 240 K/UL HEMOGLOBIN [id number] 00:00:00 Test Item Value Reference Range Interpretation Comments HEMOGLOBIN A1c (test code = 47525) 6.6 % HEMOGLOBIN [id number] 00:00:00 Test Item Value Reference Range Interpretation Comments HEMOGLOBIN A1c (test code = 63210) 6.6 % HEMOGLOBIN [id number] 00:00:00 Test Item Value Reference Range Interpretation Comments HEMOGLOBIN A1c (test code = 13516) 6.6 % CBC W/AUTO [id number] 00:00:00 Test Item Value Reference Range Interpretation [...] code = 1015) 240 K/UL CBC W/AUTO [id number] 00:00:00 Test Item Value Reference Range Interpretation [...] code = 1015) 240 K/UL CBC W/AUTO [id number] 00:00:00 Test Item Value Reference Range Interpretation [...] (test code = 1015) 240 K/UL HEMOGLOBIN [id number] 00:00:00 Test Item Value Reference Range Interpretation Comments HEMOGLOBIN A1c (test code = 26284) 6.6 % HEMOGLOBIN [id number] 00:00:00 Test Item Value Reference Range Interpretation Comments HEMOGLOBIN A1c (test code = 51867) 6.6 % HEMOGLOBIN [id number] 00:00:00 Test Item Value Reference Range Interpretation Comments HEMOGLOBIN A1c (test code = 32767) 6.6 % CBC W/AUTO [id number] 00:00:00 Test Item Value Reference Range Interpretation [...] code = 1015) 240 K/UL CBC W/AUTO [id number] 00:00:00 Test Item Value Reference Range Interpretation [...] code = 1015) 240 K/UL CBC W/AUTO [id number] 00:00:00 Test Item Value Reference Range Interpretation [...] (test code = 1015) 240 K/UL HEMOGLOBIN [id number] 00:00:00 Test Item Value Reference Range Interpretation Comments HEMOGLOBIN A1c (test code = 78614) 6.6 % HEMOGLOBIN [id number] 00:00:00 Test Item Value Reference Range Interpretation Comments HEMOGLOBIN A1c (test code = 90200) 6.6 % HEMOGLOBIN [id number] 00:00:00 Test Item Value Reference Range Interpretation Comments HEMOGLOBIN A1c (test code = 03713) 6.6 % CHEM [id number] 08:47:00 Test Item Value Reference Range Interpretation Comments Lipase Lvl (test code = Lipase Lvl) [address] [place], [place] [address]2015-05-01 08:47:00 Test Item Value Reference Range Interpretation Comments Lipase Lvl (test code = Lipase Lvl) [address] [place], [place] [id number] 08:47:00 Test Item Value Reference Range Interpretation Comments Lipase Lvl (test code = Lipase Lvl) [address] [place], [place] [address]2015-05-01 08:47:00 Test Item Value Reference Range Interpretation Comments Lipase Lvl (test code = Lipase Lvl) [address] [place], [place] [address]2015-05-01 08:47:00 Test Item Value Reference Range Interpretation Comments Lipase Lvl (test code = Lipase Lvl) [address] [place], [place] [address]2015-05-01 08:47:00 Test Item Value Reference Range Interpretation Comments Lipase Lvl (test code = Lipase Lvl) [address] [place], [place] [address]2015-05-01 08:47:00 Test Item Value Reference Range Interpretation Comments Lipase Lvl (test code = Lipase Lvl) [address] [place], [place] [address]2015-05-01 08:47:00 Test Item Value Reference Range Interpretation Comments Lipase Lvl (test code = Lipase Lvl) [address] [place], [place] [address]2015-05-01 08:47:00 Test Item Value Reference Range Interpretation Comments Lipase Lvl (test code = Lipase Lvl) [address] [place], [place] [address]2015-05-01 08:47:00 Test Item Value Reference Range Interpretation Comments Lipase Lvl (test code = Lipase Lvl) [address] [place], [place] [address]2015-05-01 08:47:00 Test Item Value Reference Range Interpretation Comments Lipase Lvl (test code = Lipase Lvl) [address] [place], [place] [address]2015-04-30 10:18:00 Test Item Value Reference Range Interpretation Comments B/C Ratio (test code = B/C Ratio) 13 6-25 [id number] 10:18:00 Test Item Value Reference Range Interpretation Comments CO2 (test code = CO2) 30 24-32 [facility] Center[id number] 10:18:00 Test Item Value Reference Range Interpretation Comments Total Protein (test code = Total 6.1 6.4-8.4 Protein) [facility] Center[id number] 10:18:00 Test Item Value Reference Range Interpretation Comments AGAP (test code = AGAP) 9.5 10.0-20.0 [facility] CenterSyernmkRJWFHIHWSAHM1284-12-71 10:18:00 Test Item Value Reference Range Interpretation Comments Albumin Lvl (test code = Albumin Lvl) 3.1 3.5-5.0 [facility]ICUAO0930[facility]-53 10:18:00 Test Item Value Reference Range Interpretation Comments Eosinophils # (test code 0.2 See_Comment [A utomated message] The = Eosinophils #) system ic h generated this result tra nsmitted reference range : <=0.5. The reference r genesis was not used to int erpret this result as normal/abnormal . [facility]KknidycRHRACZLPBN4499-51-48 10:18:00 Test Item Value Reference Range Interpretation Comments Macrocyte (test code = 2+ *ABN*(10/31/14 Macrocyte) 5:18 AM) [facility] Hospit[id number] 10:18:00 Test Item Value Reference Range Interpretation Comments Monocytes # (test code 0.5 See_Comment [Aut omated message] The = Monocytes #) system which generated this result tra nsmitted reference range : <=0.8. The reference r genesis was not used to int erpret this result as normal/abnormal . [facility] HospitalEmcctzlGNHZBJXXRA8155-63-92 10:18:00 Test Item Value Reference Range Interpretation Comments Eosinophils (test code = 2.3 See_Comment [A utomated message] The Eosinophils) system which ge nerated this result tra nsmitted reference range : <=4.0. The reference r genesis was not used to int erpret this result as normal/abnormal . [facility] HospitalTvvyebdUAFRCQVKEN2779-82-72 10:18:00 Test Item Value Reference Range Interpretation Comments Lymphocytes # (test code = Lymphocytes 1.2 1.0-5.5 #) [facility] HospitalTnqrciiJJILKNUYEM8689-37-77 10:18:00 Test Item Value Reference Range Interpretation Comments Basophils (test code = 0.3 See_Comment [Aut omated message] The Basophils) system which ge nerated this result tra nsmitted reference range : <=1.0. The reference r genesis was not used to int erpret this result as normal/abnormal . [facility] HospitalHvnmqniLCCNFKZUUB9037-83-52 10:18:00 Test Item Value Reference Range Interpretation Comments Segs-Bands # (test code = Segs-Bands #) 6.1 1.5-8.1 [facility] HospitalSjducicSVPXHMQPFD2492-01-00 10:18:00 Test Item Value Reference Range Interpretation Comments Monocytes (test code = Monocytes) 6.1 2.0-12.0 [facility] HospitalGxpjfkzKJSINQQAKM2665-47-27 10:18:00 Test Item Value Reference Range Interpretation Comments Lymphocytes (test code = Lymphocytes) 15.1 20.0-40.0 [facility] HospitalVlualhtHIKPXVFSTW7377-57-16 10:18:00 Test Item Value Reference Range Interpretation Comments Segs (test code = Segs) 76.2 45.0-75.0 [facility] HospitalObhfkxqDHXNFDDOLI3268-97-33 10:18:00 Test Item Value Reference Range Interpretation Comments MCHC (test code = MCHC) 33.9 32.0-36.0 [facility] HospitalOywjissCJKGOZDDSN9766-38-88 10:18:00 Test Item Value Reference Range Interpretation Comments MCV (test code = MCV) 104.7 80.0-98.0 [facility] HospitalWxazkqtUYUGGWSVGG2074-77-57 10:18:00 Test Item Value Reference Range Interpretation Comments Hct (test code = Hct) 35.5 36.0-48.0 [facility] HospitalGwcfqwhJSWGORIJBQ7612-67-55 10:18:00 Test Item Value Reference Range Interpretation Comments Hgb (test code = Hgb) 12.0 12.0-16.0 [facility] HospitalDawddsgCEFAMMVNHN0825-67-33 10:18:00 Test Item Value Reference Range Interpretation Comments WBC (test code = WBC) 8.0 3.7-10.4 [facility] HospitalEmuyqmtKEIHAZWCUC4038-28-40 10:18:00 Test Item Value Reference Range Interpretation Comments RBC (test code = RBC) 3.39 4.20-5.40 [facility] HospitalOixfrugVBGVXXDQMU8177-85-42 10:18:00 Test Item Value Reference Range Interpretation Comments Platelet (test code = Platelet) 128 133-450 [facility] HospitalDraaarnVSKOOMSJJJ7591-32-09 10:18:00 Test Item Value Reference Range Interpretation Comments MPV (test code = MPV) 9.5 7.4-10.4 [facility] HospitalEdsgudmDXQZUPIGVZ2359-52-07 10:18:00 Test Item Value Reference Range Interpretation Comments RDW (test code = RDW) 12.7 11.5-14.5 [facility] HospitalIbohfqmALHPEBWVEC3239-47-36 10:18:00 Test Item Value Reference Range Interpretation Comments MCH (test code = MCH) 35.5 pg 27.0-31.0 [facility]UfunqjlJCXWAB9083-62-19 10:18:00 Test Item Value Reference Range Interpretation Comments HDL (test code = HDL) 77 [facility] HospitalOisgbffODIXSB4381-78-33 10:18:00 Test Item Value Reference Range Interpretation Comments Chol (test code = Chol) 172 [facility] HospitalTbsgshsSBAPGB9170-49-37 10:18:00 Test Item Value Reference Range Interpretation Comments Trig (test code = Trig) 67 [facility]LkccucyDPLVPU5480-87-48 10:18:00 Test Item Value Reference Range Interpretation Comments LDL (Calculated) (test code = LDL 82 (Calculated)) [facility] HospitalFxtftueUPSXYK3200-09-54 10:18:00 Test Item Value Reference Range Interpretation Comments CHD Risk (test code = CHD Risk) 2.23 3.90-5.80 [facility] HospitalYzkxcbiBTBYYP4521-61-68 10:18:00 Test Item Value Reference Range Interpretation Comments VLDL (test code = VLDL) 13 [facility] HospitalCHEM WGQTV7991-35-47 10:18:00 Test Item Value Reference Range Interpretation Comments Lipase Lvl (test code = Lipase Lvl) 660 73-393 [facility] CenterKyvyjwmMOVNGRMAOCCT8259-64-96 10:18:00 Test Item Value Reference Range Interpretation Comments Sodium Lvl (test code = Sodium Lvl) 134 135-145 [facility] CenterQtgghwtKMUOIGDIOEKX8189-55-55 10:18:00 Test Item Value Reference Range Interpretation Comments Potassium Lvl (test code = Potassium 3.5 3.5-5.1 Lvl) [facility] CenterCoobtysVLMEDLODSNTO4024-82-18 10:18:00 Test Item Value Reference Range Interpretation Comments Calcium Lvl (test code = Calcium Lvl) 7.8 8.5-10.5 [facility] CenterTsnjicbGZKHPUXOWOIJ4109-54-72 10:18:00 Test Item Value Reference Range Interpretation Comments Chloride Lvl (test code = Chloride Lvl) 98 95-109 [facility] CenterGnrzokzTTDQICDHCBHH9590-42-25 10:18:00 Test Item Value Reference Range Interpretation Comments eGFR (test code = eGFR) 72 [facility] CenterEjzmjmdQOULXPLJQXTH7561-12-78 10:18:00 Test Item Value Reference Range Interpretation Comments Globulin (test code = Globulin) 3.0 2.0-4.0 [facility] CenterIiwscrtNWAEZJMGKDEM6900-78-06 10:18:00 Test Item Value Reference Range Interpretation Comments A/G Ratio (test code = A/G Ratio) 1.0 0.7-1.6 [facility] CenterMrpwdbzZCBUOQSWJIYT0018-08-17 10:18:00 Test Item Value Reference Range Interpretation Comments AST (test code = AST) 45 See_Comment [Auto mated message] The system which ge nerated this result transmit rafael reference range : <=37. The reference range was not used to interpr et this result as josi l/abnormal. [facility] CenterSmhbmqmTIQIISAUAIEV2368-65-05 10:18:00 Test Item Value Reference Range Interpretation Comments ALT (test code = ALT) 57 See_Comment [Auto mated message] The system which ge nerated this result transmit rafael reference range : <=65. The reference range was not used to interpr et this result as josi l/abnormal. [facility] CenterAmxezquIDIBBZYHCQJP8937-25-95 10:18:00 Test Item Value Reference Range Interpretation Comments Alk Phos (test code = Alk Phos) 49 39-136 [facility] CenterErqerzxKTTTGLWCIHQJ8751-65-35 10:18:00 Test Item Value Reference Range Interpretation Comments Bili Total (test code = Bili Total) 0.7 0.2-1.3 [facility] CenterVspouriSUVDRRQOAIFE3080-61-72 10:18:00 Test Item Value Reference Range Interpretation Comments Glucose Lvl (test code = Glucose Lvl) 145 70-99 [facility] CenterMwjdysnWPAAMDJABNJI1398-19-30 10:18:00 Test Item Value Reference Range Interpretation Comments Creatinine Lvl (test code = Creatinine 0.9 0.5-1.4 Lvl) [facility] CenterNibkghuIJRHFHTETTEY4364-42-37 10:18:00 Test Item Value Reference Range Interpretation Comments BUN (test code = BUN) 12 7-22 [facility] CenterMmagnmlDYZUOBXFXOSZ5979-56-05 10:18:00 Test Item Value Reference Range Interpretation Comments B/C Ratio (test code = B/C Ratio) 13 6-25 [facility] CenterJgofmyuTKRDJYVUGAGF3021-37-64 10:18:00 Test Item Value Reference Range Interpretation Comments CO2 (test code = CO2) 30 24-32 [facility] CenterTclfygwLWDDIQUOUVAO2305-08-76 10:18:00 Test Item Value Reference Range Interpretation Comments Total Protein (test code = Total 6.1 6.4-8.4 Protein) [facility] CenterYbynpitABVUOBPHXAQN7260-12-38 10:18:00 Test Item Value Reference Range Interpretation Comments AGAP (test code = AGAP) 9.5 10.0-20.0 [facility] CenterDpsxkscCYLAQSDVJXLP6390-60-64 10:18:00 Test Item Value Reference Range Interpretation Comments Albumin Lvl (test code = Albumin Lvl) 3.1 3.5-5.0 [facility] HospitalMxpincoNXIPDXZZJP0307-96-57 10:18:00 Test Item Value Reference Range Interpretation Comments Eosinophils # (test code 0.2 See_Comment [A utomated message] The = Eosinophils #) system whic h generated this result tra nsmitted reference range : <=0.5. The reference r genesis was not used to int erpret this result as normal/abnormal . [facility] HospitalXfqjbtkZWVUNGEXEF9502-56-20 10:18:00 Test Item Value Reference Range Interpretation Comments Macrocyte (test code = 2+ *ABN*(10/31/14 Macrocyte) 5:18 AM) [facility] HospitalFtgqvsaUGCQCMAMEW6967-84-96 10:18:00 Test Item Value Reference Range Interpretation Comments Monocytes # (test code 0.5 See_Comment [Aut omated message] The = Monocytes #) system which generated this result tra nsmitted reference range : <=0.8. The reference r genesis was not used to int erpret this result as normal/abnormal . [facility] HospitalAdpglatFLLRKPVKWO7322-70-58 10:18:00 Test Item Value Reference Range Interpretation Comments Eosinophils (test code = 2.3 See_Comment [A utomated message] The Eosinophils) system which ge nerated this result tra nsmitted reference range : <=4.0. The reference r genesis was not used to int erpret this result as normal/abnormal . [facility] HospitalUgkjzmgPVEGOFVNPZ8013-11-72 10:18:00 Test Item Value Reference Range Interpretation Comments Lymphocytes # (test code = Lymphocytes 1.2 1.0-5.5 #) [facility] HospitalWlejugkOWIZFKSURQ6748-52-50 10:18:00 Test Item Value Reference Range Interpretation Comments Basophils (test code = 0.3 See_Comment [Aut omated message] The Basophils) system which ge nerated this result tra nsmitted reference range : <=1.0. The reference r genesis was not used to int erpret this result as normal/abnormal . [facility] HospitalSmbdmbsUXPUBPRCIF3356-16-24 10:18:00 Test Item Value Reference Range Interpretation Comments Segs-Bands # (test code = Segs-Bands #) 6.1 1.5-8.1 [facility] HospitalTdwnxseZTPHMYMTJB8563-38-93 10:18:00 Test Item Value Reference Range Interpretation Comments Monocytes (test code = Monocytes) 6.1 2.0-12.0 [facility] HospitalTtmobrfSTKXNRSAFF1341-38-09 10:18:00 Test Item Value Reference Range Interpretation Comments Lymphocytes (test code = Lymphocytes) 15.1 20.0-40.0 [facility] HospitalGhjjnxiCCSDZXYZCI4191-46-13 10:18:00 Test Item Value Reference Range Interpretation Comments Segs (test code = Segs) 76.2 45.0-75.0 [facility] HospitalPcxiedeYGVETEPDSE3146-53-08 10:18:00 Test Item Value Reference Range Interpretation Comments MCHC (test code = MCHC) 33.9 32.0-36.0 [facility] HospitalZbnffluMOLZLTEVAD3803-52-96 10:18:00 Test Item Value Reference Range Interpretation Comments MCV (test code = MCV) 104.7 80.0-98.0 [facility] HospitalKrfdnaxPHHKGJSGSN7307-62-03 10:18:00 Test Item Value Reference Range Interpretation Comments Hct (test code = Hct) 35.5 36.0-48.0 [facility] HospitalZfzlpnyKSHQPRHQBD2695-83-04 10:18:00 Test Item Value Reference Range Interpretation Comments Hgb (test code = Hgb) 12.0 12.0-16.0 [facility] HospitalQzjrwmoOVNJSMFSJR3397-89-05 10:18:00 Test Item Value Reference Range Interpretation Comments WBC (test code = WBC) 8.0 3.7-10.4 [facility] HospitalQkinrwkJVHUDSZLKU5135-75-05 10:18:00 Test Item Value Reference Range Interpretation Comments RBC (test code = RBC) 3.39 4.20-5.40 [facility] HospitalGbijkraTIOSQPQZNY6427-63-71 10:18:00 Test Item Value Reference Range Interpretation Comments Platelet (test code = Platelet) 128 133-450 [facility] HospitalZxezonrRGROJDOYPY7689-08-68 10:18:00 Test Item Value Reference Range Interpretation Comments MPV (test code = MPV) 9.5 7.4-10.4 [facility] HospitalTlwhfpsTHIVJPLGLU5772-78-75 10:18:00 Test Item Value Reference Range Interpretation Comments RDW (test code = RDW) 12.7 11.5-14.5 [facility] HospitalXqnaypvKEMEVREQGK1525-83-55 10:18:00 Test Item Value Reference Range Interpretation Comments MCH (test code = MCH) 35.5 pg 27.0-31.0 [facility]AthryavOCPNWE5284-17-99 10:18:00 Test Item Value Reference Range Interpretation Comments HDL (test code = HDL) 77 [facility] HospitalNpjvzcyKYTXVS8940-78-30 10:18:00 Test Item Value Reference Range Interpretation Comments Chol (test code = Chol) 172 [facility] HospitalOgxihdxJEJFVV4620-16-92 10:18:00 Test Item Value Reference Range Interpretation Comments Trig (test code = Trig) 67 [facility] HospitalQfhobjiWCLDNC1800-12-13 10:18:00 Test Item Value Reference Range Interpretation Comments LDL (Calculated) (test code = LDL 82 (Calculated)) [facility] HospitalEistxtxREVVGD7568-89-89 10:18:00 Test Item Value Reference Range Interpretation Comments CHD Risk (test code = CHD Risk) 2.23 3.90-5.80 [facility] HospitalNnyxoeaUSQDOO4170-42-05 10:18:00 Test Item Value Reference Range Interpretation Comments VLDL (test code = VLDL) 13 [facility] DJIYX7017-52-33 10:18:00 Test Item Value Reference Range Interpretation Comments Lipase Lvl (test code = Lipase Lvl) 660 73-393 [facility] CenterZlqfspsDOHVPUUNQIOJ5551-47-46 10:18:00 Test Item Value Reference Range Interpretation Comments Sodium Lvl (test code = Sodium Lvl) 134 135-145 [facility] CenterBavsfmtWTPPWEPLVPEP4926-81-30 10:18:00 Test Item Value Reference Range Interpretation Comments Potassium Lvl (test code = Potassium 3.5 3.5-5.1 Lvl) [facility] CenterXcepbffLBLVLNAPXWEK0433-46-84 10:18:00 Test Item Value Reference Range Interpretation Comments Calcium Lvl (test code = Calcium Lvl) 7.8 8.5-10.5 [facility] CenterNlnwgvfNTMQCLSQEJPD0474-34-63 10:18:00 Test Item Value Reference Range Interpretation Comments Chloride Lvl (test code = Chloride Lvl) 98 95-109 [facility] CenterVszypftBQBDFVECCTXW6044-63-99 10:18:00 Test Item Value Reference Range Interpretation Comments eGFR (test code = eGFR) 72 [facility] CenterTswylecFBUETOSVLTUF6558-37-58 10:18:00 Test Item Value Reference Range Interpretation Comments Globulin (test code = Globulin) 3.0 2.0-4.0 [facility] CenterKppdajxYUOAXZJLPHDD1102-56-01 10:18:00 Test Item Value Reference Range Interpretation Comments A/G Ratio (test code = A/G Ratio) 1.0 0.7-1.6 [facility] CenterEofvvkvLFRYSDEZDDJE1100-44-30 10:18:00 Test Item Value Reference Range Interpretation Comments AST (test code = AST) 45 See_Comment [Auto mated message] The system which ge nerated this result transmit rafael reference range : <=37. The reference range was not used to interpr et this result as josi l/abnormal. [facility] CenterBthbrxzMXZPILSCVDNP8554-86-68 10:18:00 Test Item Value Reference Range Interpretation Comments ALT (test code = ALT) 57 See_Comment [Auto mated message] The system which ge nerated this result transmit rafael reference range : <=65. The reference range was not used to interpr et this result as josi l/abnormal. [facility] CenterCgmvliyQELDAMRPQGNK1418-54-92 10:18:00 Test Item Value Reference Range Interpretation Comments Alk Phos (test code = Alk Phos) 49 39-136 [facility] CenterBkwivaeAFCCPAZJNJOR2333-44-38 10:18:00 Test Item Value Reference Range Interpretation Comments Bili Total (test code = Bili Total) 0.7 0.2-1.3 [facility] CenterUhgrpihROCOQQMXIZZQ1454-72-16 10:18:00 Test Item Value Reference Range Interpretation Comments Glucose Lvl (test code = Glucose Lvl) 145 70-99 [facility] CenterCxgptngRMLDPMAHATHM7668-43-50 10:18:00 Test Item Value Reference Range Interpretation Comments Creatinine Lvl (test code = Creatinine 0.9 0.5-1.4 Lvl) [facility] CenterAkveirqMYMHZNAHASGS7494-23-39 10:18:00 Test Item Value Reference Range Interpretation Comments BUN (test code = BUN) 12 7-22 [facility]2015-04-30 10:18:00 Test Item Value Reference Range Interpretation Comments Lipase Lvl (test code = Lipase Lvl) 660 73-393 [facility] CenterOhgmukbPHUHRDWDWREH9350-41-62 10:18:00 Test Item Value Reference Range Interpretation Comments Sodium Lvl (test code = Sodium Lvl) 134 135-145 [facility] CenterMlkemoeGXZZYLFUOFGK0542-08-43 10:18:00 Test Item Value Reference Range Interpretation Comments Potassium Lvl (test code = Potassium 3.5 3.5-5.1 Lvl) [facility] CenterWqjwcqlADALYZQUVLRZ2646-78-28 10:18:00 Test Item Value Reference Range Interpretation Comments Calcium Lvl (test code = Calcium Lvl) 7.8 8.5-10.5 [facility] CenterObzxuguTPBLIYUAIDIV1540-68-90 10:18:00 Test Item Value Reference Range Interpretation Comments Chloride Lvl (test code = Chloride Lvl) 98 95-109 [facility] CenterVwovcceIGXWCMPTOXQV5701-72-84 10:18:00 Test Item Value Reference Range Interpretation Comments eGFR (test code = eGFR) 72 [facility] CenterUfolxuqCKKQHUNZFZBP0968-39-80 10:18:00 Test Item Value Reference Range Interpretation Comments Globulin (test code = Globulin) 3.0 2.0-4.0 [facility] CenterXznikczKTXWDDJXDQYD8436-54-10 10:18:00 Test Item Value Reference Range Interpretation Comments A/G Ratio (test code = A/G Ratio) 1.0 0.7-1.6 [facility] CenterSejlrllCIBSKBMDAWAD1257-22-72 10:18:00 Test Item Value Reference Range Interpretation Comments AST (test code = AST) 45 See_Comment [Auto mated message] The system which ge nerated this result transmit rafael reference range : <=37. The reference range was not used to interpr et this result as josi l/abnormal. [facility] CenterOwepdthCROLZPJFSWMS7908-31-04 10:18:00 Test Item Value Reference Range Interpretation Comments ALT (test code = ALT) 57 See_Comment [Auto mated message] The system which ge nerated this result transmit rafael reference range : <=65. The reference range was not used to interpr et this result as josi l/abnormal. [facility] CenterVzthazaXNCHUEYHNDTM4766-97-72 10:18:00 Test Item Value Reference Range Interpretation Comments Alk Phos (test code = Alk Phos) 49 39-136 [facility] CenterDwfusirOPMOAFTZHTVX9784-27-92 10:18:00 Test Item Value Reference Range Interpretation Comments Bili Total (test code = Bili Total) 0.7 0.2-1.3 [facility] CenterXdykdeaRGYZSRRGWAPE8343-39-91 10:18:00 Test Item Value Reference Range Interpretation Comments Glucose Lvl (test code = Glucose Lvl) 145 70-99 [facility] CenterGtznnaeMUTFPLEKZXKL8224-55-94 10:18:00 Test Item Value Reference Range Interpretation Comments Creatinine Lvl (test code = Creatinine 0.9 0.5-1.4 Lvl) [facility] CenterGjavjmpNQPCOAKDFILN4742-33-78 10:18:00 Test Item Value Reference Range Interpretation Comments BUN (test code = BUN) 12 01-22 [facility] CenterJpfbimaOUETZYCDNSJE8708-49-10 10:18:00 Test Item Value Reference Range Interpretation Comments B/C Ratio (test code = B/C Ratio) 13 12-26 [facility] CenterFtkobksXHKSGDQWMDGA5104-14-14 10:18:00 Test Item Value Reference Range Interpretation Comments B/C Ratio (test code = B/C Ratio) 13 12-26 [facility] CenterAtelswuKKFHSBBSUSLA4369-53-25 10:18:00 Test Item Value Reference Range Interpretation Comments CO2 (test code = CO2) [facility] CenterIisrqzwKLBPCVLBAMHI7260-92-81 10:18:00 Test Item Value Reference Range Interpretation Comments Total Protein (test code = Total 6.1 6.4-8.4 Protein) [facility] CenterQypcctuWTUJBBEZOEKO9273-28-84 10:18:00 Test Item Value Reference Range Interpretation Comments AGAP (test code = AGAP) 9.5 10.0-20.0 [facility] CenterBrnvdcoGPJULAESYUNZ6147-82-87 10:18:00 Test Item Value Reference Range Interpretation Comments Albumin Lvl (test code = Albumin Lvl) 3.1 3.5-5.0 [facility] HospitalCbgsnnnKPCJKSTDDA4602-98-11 10:18:00 Test Item Value Reference Range Interpretation Comments Eosinophils # (test code 0.2 See_Comment [A utomated message] The = Eosinophils #) system whic h generated this result tra nsmitted reference range : <=0.5. The reference r genesis was not used to int erpret this result as normal/abnormal . [facility] HospitalKwshusgZWGNXPTTLJ8701-63-82 10:18:00 Test Item Value Reference Range Interpretation Comments Macrocyte (test code = 2+ *ABN*(10/31/14 Macrocyte) 5:18 AM) [facility] HospitalQbdwhhlEEBMNDLWVC5094-87-93 10:18:00 Test Item Value Reference Range Interpretation Comments Monocytes # (test code 0.5 See_Comment [Aut omated message] The = Monocytes #) system which generated this result tra nsmitted reference range : <=0.8. The reference r genesis was not used to int erpret this result as normal/abnormal . [facility] HospitalBzdvngoUXEJGTKZON0251-63-21 10:18:00 Test Item Value Reference Range Interpretation Comments Eosinophils (test code = 2.3 See_Comment [A utomated message] The Eosinophils) system which ge nerated this result tra nsmitted reference range : <=4.0. The reference r genesis was not used to int erpret this result as normal/abnormal . [facility] HospitalAlcvvptFMBCFSXCEW0973-64-31 10:18:00 Test Item Value Reference Range Interpretation Comments Lymphocytes # (test code = Lymphocytes 1.2 1.0-5.5 #) [facility] HospitalEezbqdeSKEOMAJRXJ3126-73-49 10:18:00 Test Item Value Reference Range Interpretation Comments Basophils (test code = 0.3 See_Comment [Aut omated message] The Basophils) system which ge nerated this result tra nsmitted reference range : <=1.0. The reference r genesis was not used to int erpret this result as normal/abnormal . [facility] HospitalRicclouLUAHQFXGIT8678-32-18 10:18:00 Test Item Value Reference Range Interpretation Comments Segs-Bands # (test code = Segs-Bands #) 6.1 1.5-8.1 [facility] HospitalKzkmgtbJFQDKQXHXQ1346-99-05 10:18:00 Test Item Value Reference Range Interpretation Comments Monocytes (test code = Monocytes) 6.1 2.0-12.0 [facility] HospitalBmirqnvHQXHIIHPIP5941-43-94 10:18:00 Test Item Value Reference Range Interpretation Comments Lymphocytes (test code = Lymphocytes) 15.1 20.0-40.0 [facility] HospitalJtvoofgBILRUHVWIS8607-20-61 10:18:00 Test Item Value Reference Range Interpretation Comments Segs (test code = Segs) 76.2 45.0-75.0 [facility] HospitalSjvxzfyDBSOGPQQDQ8752-42-37 10:18:00 Test Item Value Reference Range Interpretation Comments MCHC (test code = MCHC) 33.9 32.0-36.0 [facility] HospitalYauzxvuFAGAWAYNUF5575-73-38 10:18:00 Test Item Value Reference Range Interpretation Comments MCV (test code = MCV) 104.7 80.0-98.0 [facility] HospitalVfcqyntKOKWBJYEEJ2615-78-37 10:18:00 Test Item Value Reference Range Interpretation Comments Hct (test code = Hct) 35.5 36.0-48.0 [facility] HospitalZwvfwnhSHCARBFHIE3484-73-28 10:18:00 Test Item Value Reference Range Interpretation Comments Hgb (test code = Hgb) 12.0 12.0-16.0 [facility] HospitalEkrwwqnIMRGJVHAQL4091-53-45 10:18:00 Test Item Value Reference Range Interpretation Comments WBC (test code = WBC) 8.0 3.7-10.4 [facility] HospitalCmvunubIAHQMWBRTQ9976-73-95 10:18:00 Test Item Value Reference Range Interpretation Comments RBC (test code = RBC) 3.39 4.20-5.40 [facility]KdvwaufFQZFCAMPVDCF7148-42-45 10:18:00 Test Item Value Reference Range Interpretation Comments CO2 (test code = CO2) 30 24-32 [facility] HospitalLedgupxRBKXCUSRLJ3457-96-96 10:18:00 Test Item Value Reference Range Interpretation Comments Platelet (test code = Platelet) 128 133-450 [facility] HospitalFabtjxgLPEIXRMWPF5080-49-76 10:18:00 Test Item Value Reference Range Interpretation Comments MPV (test code = MPV) 9.5 7.4-10.4 [facility] HospitalVyltwuzRSITUGWGUI0617-88-72 10:18:00 Test Item Value Reference Range Interpretation Comments RDW (test code = RDW) 12.7 11.5-14.5 [facility] HospitalOisytcwQANDCJTJZZ1043-56-38 10:18:00 Test Item Value Reference Range Interpretation Comments MCH (test code = MCH) 35.5 pg 27.0-31.0 [facility] HospitalLyuorsqJFCUMW6885-26-40 10:18:00 Test Item Value Reference Range Interpretation Comments HDL (test code = HDL) 77 [facility] HospitalGxfldcrJAVYYA8396-62-04 10:18:00 Test Item Value Reference Range Interpretation Comments Chol (test code = Chol) 172 [facility] HospitalRbnypyaBUEQCB9752-77-42 10:18:00 Test Item Value Reference Range Interpretation Comments Trig (test code = Trig) 67 [facility] HospitalTaavtggMJNUDD8229-30-17 10:18:00 Test Item Value Reference Range Interpretation Comments LDL (Calculated) (test code = LDL 82 (Calculated)) [facility] HospitalOivdbaiKDBTVH3629-45-13 10:18:00 Test Item Value Reference Range Interpretation Comments CHD Risk (test code = CHD Risk) 2.23 3.90-5.80 [facility] HospitalOqjiyyjRJSDZX6033-53-53 10:18:00 Test Item Value Reference Range Interpretation Comments VLDL (test code = VLDL) 13 [facility] CenterYytxohsRQJYHEDSINZU9315-14-93 10:18:00 Test Item Value Reference Range Interpretation Comments Total Protein (test code = Total 6.1 6.4-8.4 Protein) [facility] CenterVemizykSXAPZNRFUDDC4378-51-22 10:18:00 Test Item Value Reference Range Interpretation Comments AGAP (test code = AGAP) 9.5 10.0-20.0 [facility] CenterPdjqdswGGSFQHCVGUEJ5463-14-93 10:18:00 Test Item Value Reference Range Interpretation Comments Albumin Lvl (test code = Albumin Lvl) 3.1 3.5-5.0 [facility] HospitalIqbonnpEXMCEOTFEH4220-25-86 10:18:00 Test Item Value Reference Range Interpretation Comments Eosinophils # (test code 0.2 See_Comment [A utomated message] The = Eosinophils #) system whic h generated this result tra nsmitted reference range : <=0.5. The reference r genesis was not used to int erpret this result as normal/abnormal . [facility] HospitalRisomasPEDLIWYCOW7548-68-32 10:18:00 Test Item Value Reference Range Interpretation Comments Macrocyte (test code = 2+ *ABN*(10/31/14 Macrocyte) 5:18 AM) [facility] HospitalJqwwwtzRSMCHJIEPA9878-11-89 10:18:00 Test Item Value Reference Range Interpretation Comments Monocytes # (test code 0.5 See_Comment [Aut omated message] The = Monocytes #) system which generated this result tra nsmitted reference range : <=0.8. The reference r genesis was not used to int erpret this result as normal/abnormal . [facility] HospitalIyguvloBEYWMHBHBM8068-70-39 10:18:00 Test Item Value Reference Range Interpretation Comments Eosinophils (test code = 2.3 See_Comment [A utomated message] The Eosinophils) system which ge nerated this result tra nsmitted reference range : <=4.0. The reference r genesis was not used to int erpret this result as normal/abnormal . [facility] HospitalPrdklipBNERRHPZHB5377-20-79 10:18:00 Test Item Value Reference Range Interpretation Comments Lymphocytes # (test code = Lymphocytes 1.2 1.0-5.5 #) [facility] HospitalEpyttnvIDMFQVFNCH1786-75-46 10:18:00 Test Item Value Reference Range Interpretation Comments Basophils (test code = 0.3 See_Comment [Aut omated message] The Basophils) system which ge nerated this result tra nsmitted reference range : <=1.0. The reference r genesis was not used to int erpret this result as normal/abnormal . [facility] HospitalYmikhivQXATKZNVJM4100-20-20 10:18:00 Test Item Value Reference Range Interpretation Comments Segs-Bands # (test code = Segs-Bands #) 6.1 1.5-8.1 [facility] HospitalIiqrwcyIUQILKTVKF4338-36-02 10:18:00 Test Item Value Reference Range Interpretation Comments Monocytes (test code = Monocytes) 6.1 2.0-12.0 [facility] HospitalSuazlkoTFPNUZNYOS7225-53-29 10:18:00 Test Item Value Reference Range Interpretation Comments Lymphocytes (test code = Lymphocytes) 15.1 20.0-40.0 [facility] HospitalBbqenjoRSNPSTATJY2131-73-62 10:18:00 Test Item Value Reference Range Interpretation Comments Segs (test code = Segs) 76.2 45.0-75.0 [facility] HospitalLmtsruaUSFVUIAIUW0320-37-32 10:18:00 Test Item Value Reference Range Interpretation Comments MCHC (test code = MCHC) 33.9 32.0-36.0 [facility] HospitalFwacclvTRMFWMDYWW6091-46-29 10:18:00 Test Item Value Reference Range Interpretation Comments MCV (test code = MCV) 104.7 80.0-98.0 [facility] HospitalSkfdnobSTHBNNFZBL4524-08-31 10:18:00 Test Item Value Reference Range Interpretation Comments Hct (test code = Hct) 35.5 36.0-48.0 [facility] HospitalCmgpxeuNTIKORSMIU7991-03-10 10:18:00 Test Item Value Reference Range Interpretation Comments Hgb (test code = Hgb) 12.0 12.0-16.0 [facility] HospitalXuklcjnXUIYQNTKKV0174-70-84 10:18:00 Test Item Value Reference Range Interpretation Comments WBC (test code = WBC) 8.0 3.7-10.4 [facility] HospitalNvcczfaVIANZSMOWO3506-72-06 10:18:00 Test Item Value Reference Range Interpretation Comments RBC (test code = RBC) 3.39 4.20-5.40 [facility] HospitalXuastjqGSKIDVCBKT6398-46-56 10:18:00 Test Item Value Reference Range Interpretation Comments Platelet (test code = Platelet) 128 133-450 [facility] HospitalEwgosnmLXNBSFJDLJ8970-43-02 10:18:00 Test Item Value Reference Range Interpretation Comments MPV (test code = MPV) 9.5 7.4-10.4 [facility] HospitalJriibizRGMCXMTNDI6537-37-42 10:18:00 Test Item Value Reference Range Interpretation Comments RDW (test code = RDW) 12.7 11.5-14.5 [facility] HospitalOypwbaxGMBBUGRHHW8400-55-56 10:18:00 Test Item Value Reference Range Interpretation Comments MCH (test code = MCH) 35.5 pg 27.0-31.0 [facility] HospitalKedahmnXTPUJE9902-77-69 10:18:00 Test Item Value Reference Range Interpretation Comments HDL (test code = HDL) 77 [facility] HospitalVwkdlglTNEEBE1431-31-05 10:18:00 Test Item Value Reference Range Interpretation Comments Chol (test code = Chol) 172 [facility] HospitalAndaqccZRDCBH0240-32-60 10:18:00 Test Item Value Reference Range Interpretation Comments Trig (test code = Trig) 67 [facility] HospitalLpdnzbmWILDKY9248-44-25 10:18:00 Test Item Value Reference Range Interpretation Comments LDL (Calculated) (test code = LDL 82 (Calculated)) [facility] HospitalCbsgijuAKLVAT6127-16-43 10:18:00 Test Item Value Reference Range Interpretation Comments CHD Risk (test code = CHD Risk) 2.23 3.90-5.80 [facility] HospitalIbsfxdeLUHPOE9121-94-83 10:18:00 Test Item Value Reference Range Interpretation Comments VLDL (test code = VLDL) 13 [facility] HospitalCHEM EAIVC8384-62-19 10:18:00 Test Item Value Reference Range Interpretation Comments Lipase Lvl (test code = Lipase Lvl) 660 73-393 [facility] HospitalUuzoesvKPLGOMVICERH8397-03-71 10:18:00 Test Item Value Reference Range Interpretation Comments Sodium Lvl (test code = Sodium Lvl) 134 135-145 [facility] CenterRvfhkztASRYQQNRWYPO5692-94-04 10:18:00 Test Item Value Reference Range Interpretation Comments Potassium Lvl (test code = Potassium 3.5 3.5-5.1 Lvl) [facility] CenterOckaaffPAGWECSWDUXA2209-13-56 10:18:00 Test Item Value Reference Range Interpretation Comments Calcium Lvl (test code = Calcium Lvl) 7.8 8.5-10.5 [facility] CenterWaedeeyPZIXWTAKPDGS4210-05-17 10:18:00 Test Item Value Reference Range Interpretation Comments Chloride Lvl (test code = Chloride Lvl) 98 95-109 [facility] CenterAekzoiyXANFFHICCTPQ1804-49-64 10:18:00 Test Item Value Reference Range Interpretation Comments eGFR (test code = eGFR) 72 [facility] CenterBljcmtoINTRJIJUSABZ8187-36-81 10:18:00 Test Item Value Reference Range Interpretation Comments Globulin (test code = Globulin) 3.0 2.0-4.0 [facility] CenterGnpmlwuILDZXBSAXAZI3338-28-71 10:18:00 Test Item Value Reference Range Interpretation Comments A/G Ratio (test code = A/G Ratio) 1.0 0.7-1.6 [facility] CenterRkevvnlXRJDUQKYYELG8974-17-52 10:18:00 Test Item Value Reference Range Interpretation Comments AST (test code = AST) 45 See_Comment [Auto mated message] The system which ge nerated this result transmit rafael reference range : <=37. The reference range was not used to interpr et this result as josi l/abnormal. [facility] CenterDglnbeqBZBTDDTHXAFB6286-58-70 10:18:00 Test Item Value Reference Range Interpretation Comments ALT (test code = ALT) 57 See_Comment [Auto mated message] The system which ge nerated this result transmit rafael reference range : <=65. The reference range was not used to interpr et this result as josi l/abnormal. [facility] CenterQmudizbVDYKOGZSYAKC5354-09-07 10:18:00 Test Item Value Reference Range Interpretation Comments Alk Phos (test code = Alk Phos) 49 39-136 [facility] CenterIxkmxmtOFACPLFGRQOD4537-24-75 10:18:00 Test Item Value Reference Range Interpretation Comments Bili Total (test code = Bili Total) 0.7 0.2-1.3 [facility] CenterIezjtjoGDTHBHABEBOQ8180-81-36 10:18:00 Test Item Value Reference Range Interpretation Comments Glucose Lvl (test code = Glucose Lvl) 145 70-99 [facility] CenterUjllozeOCOOGSBCDWDF3241-20-45 10:18:00 Test Item Value Reference Range Interpretation Comments Creatinine Lvl (test code = Creatinine 0.9 0.5-1.4 Lvl) [facility] CenterDbotxkxZOIVSQMGZMEN7967-59-31 10:18:00 Test Item Value Reference Range Interpretation Comments BUN (test code = BUN) 12 01-22 [facility] CenterNqqhfehIEIFTFPHXGLD3748-51-03 10:18:00 Test Item Value Reference Range Interpretation Comments B/C Ratio (test code = B/C Ratio) 13 - [facility] CenterVtjmlznWNPNGKKUDWYR6612-48-32 10:18:00 Test Item Value Reference Range Interpretation Comments CO2 (test code = CO2) 30 - [facility] CenterLffwtesWQMHUHYQMXDP8441-64-70 10:18:00 Test Item Value Reference Range Interpretation Comments Total Protein (test code = Total 6.1 6.4-8.4 Protein) [facility] CenterSzebdcyLPVINZOTPUMH3420-73-84 10:18:00 Test Item Value Reference Range Interpretation Comments AGAP (test code = AGAP) 9.5 10.0-20.0 [facility] CenterQljiabkRNZJPXUFJOIY6118-33-41 10:18:00 Test Item Value Reference Range Interpretation Comments Albumin Lvl (test code = Albumin Lvl) 3.1 3.5-5.0 [facility]IwzudsqBRMCJOYTEL2069-76-61 10:18:00 Test Item Value Reference Range Interpretation Comments Eosinophils # (test code 0.2 See_Comment [A utomated message] The = Eosinophils #) system whic h generated this result tra nsmitted reference range : <=0.5. The reference r genesis was not used to int erpret this result as normal/abnormal . [facility] HospitalUlqpmsfRGNOAHOBLN2957-83-18 10:18:00 Test Item Value Reference Range Interpretation Comments Macrocyte (test code = 2+ *ABN*(10/31/14 Macrocyte) 5:18 AM) [facility] HospitalFfufylnXCCTCPVICP4458-16-70 10:18:00 Test Item Value Reference Range Interpretation Comments Monocytes # (test code 0.5 See_Comment [Aut omated message] The = Monocytes #) system which generated this result tra nsmitted reference range : <=0.8. The reference r genesis was not used to int erpret this result as normal/abnormal . [facility] HospitalRhbpehlQKRZGAXWTQ6428-53-74 10:18:00 Test Item Value Reference Range Interpretation Comments Eosinophils (test code = 2.3 See_Comment [A utomated message] The Eosinophils) system which ge nerated this result tra nsmitted reference range : <=4.0. The reference r genesis was not used to int erpret this result as normal/abnormal . [facility] HospitalGqyzervPQHJJBGLSO7890-74-29 10:18:00 Test Item Value Reference Range Interpretation Comments Lymphocytes # (test code = Lymphocytes 1.2 1.0-5.5 #) [facility] HospitalHxnaikkPBWMAPUHQS8480-93-80 10:18:00 Test Item Value Reference Range Interpretation Comments Basophils (test code = 0.3 See_Comment [Aut omated message] The Basophils) system which ge nerated this result tra nsmitted reference range : <=1.0. The reference r genesis was not used to int erpret this result as normal/abnormal . [facility] HospitalKrsudpbNQTRQUSPIV8471-45-65 10:18:00 Test Item Value Reference Range Interpretation Comments Segs-Bands # (test code = Segs-Bands #) 6.1 1.5-8.1 [facility] HospitalIelputuGVFCKXJNVI0060-43-03 10:18:00 Test Item Value Reference Range Interpretation Comments Monocytes (test code = Monocytes) 6.1 2.0-12.0 [facility] HospitalQzoarppDDZOQEZVIC1194-70-83 10:18:00 Test Item Value Reference Range Interpretation Comments Lymphocytes (test code = Lymphocytes) 15.1 20.0-40.0 [facility] HospitalAzzqlxaPNATQZKWBO9509-50-74 10:18:00 Test Item Value Reference Range Interpretation Comments Segs (test code = Segs) 76.2 45.0-75.0 [facility] HospitalCizbzcfWDZZQSAWDY1148-74-88 10:18:00 Test Item Value Reference Range Interpretation Comments MCHC (test code = MCHC) 33.9 32.0-36.0 [facility] HospitalBsonbriNPSATALUZU3280-16-79 10:18:00 Test Item Value Reference Range Interpretation Comments MCV (test code = MCV) 104.7 80.0-98.0 [facility] HospitalOprsodkEPCNDRETID4259-53-15 10:18:00 Test Item Value Reference Range Interpretation Comments Hct (test code = Hct) 35.5 36.0-48.0 [facility] HospitalGhnljxtRQVXCEPMRT0909-52-69 10:18:00 Test Item Value Reference Range Interpretation Comments Hgb (test code = Hgb) 12.0 12.0-16.0 [facility]FreavupZIZWBWTABH1040-23-53 10:18:00 Test Item Value Reference Range Interpretation Comments WBC (test code = WBC) 8.0 3.7-10.4 [facility] HealthSltjamtMQKWJWUYCU9717-21-36 10:18:00 Test Item Value Reference Range Interpretation Comments RBC (test code = RBC) 3.39 4.20-5.40 [facility] HealthFjiyhunHMJKXCBPTP0954-93-65 10:18:00 Test Item Value Reference Range Interpretation Comments Platelet (test code = Platelet) 128 133-450 [facility] HealthDdtxgzxBEQDMUHETD7773-57-51 10:18:00 Test Item Value Reference Range Interpretation Comments MPV (test code = MPV) 9.5 7.4-10.4 [facility] HospitalGmicutpFOIIBJTRIO0710-74-66 10:18:00 Test Item Value Reference Range Interpretation Comments RDW (test code = RDW) 12.7 11.5-14.5 [facility] HealthFiqwcqbZNUNXHPNKZ0208-65-96 10:18:00 Test Item Value Reference Range Interpretation Comments MCH (test code = MCH) 35.5 pg 27.0-31.0 [facility]XsdirigJRJXKS8686-97-85 10:18:00 Test Item Value Reference Range Interpretation Comments HDL (test code = HDL) 77 [facility] HospitalZgdllbmJXSRBY0300-90-51 10:18:00 Test Item Value Reference Range Interpretation Comments Chol (test code = Chol) 172 [facility] HospitalRyfesfgBZEVKZ3815-91-95 10:18:00 Test Item Value Reference Range Interpretation Comments Trig (test code = Trig) 67 [facility] HospitalRimphedQZQVPC9070-89-27 10:18:00 Test Item Value Reference Range Interpretation Comments LDL (Calculated) (test code = LDL 82 (Calculated)) [facility] HospitalArtilqzDCQCOZ4959-17-76 10:18:00 Test Item Value Reference Range Interpretation Comments CHD Risk (test code = CHD Risk) 2.23 3.90-5.80 [facility] HospitalNxsoxmlXKOWBZ3936-83-11 10:18:00 Test Item Value Reference Range Interpretation Comments VLDL (test code = VLDL) 13 [facility] HospitalCHEM VYFCK1518-68-71 10:18:00 Test Item Value Reference Range Interpretation Comments Lipase Lvl (test code = Lipase Lvl) 660 [address] [facility]VzzpuqfNGDXLKYWQCGZ0843-90-25 10:18:00 Test Item Value Reference Range Interpretation Comments Sodium Lvl (test code = Sodium Lvl) 134 135-145 [facility] CenterFzbxfyfEHSZSMPLUQIB0614-95-55 10:18:00 Test Item Value Reference Range Interpretation Comments Potassium Lvl (test code = Potassium 3.5 3.5-5.1 Lvl) [facility] CenterWygiackQRTHALEIQLCK1925-47-20 10:18:00 Test Item Value Reference Range Interpretation Comments Calcium Lvl (test code = Calcium Lvl) 7.8 8.5-10.5 [facility] CenterMpxxmfiHBMYIHTXCXSQ9773-56-33 10:18:00 Test Item Value Reference Range Interpretation Comments Chloride Lvl (test code = Chloride Lvl) 98 95-109 [facility] CenterJomystdPCDXLNZDEIHR8388-37-37 10:18:00 Test Item Value Reference Range Interpretation Comments eGFR (test code = eGFR) 72 [facility] CenterUvllhsnNFCSHFGZJTBW7320-93-69 10:18:00 Test Item Value Reference Range Interpretation Comments Globulin (test code = Globulin) 3.0 2.0-4.0 [facility] CenterKhijvloJEHSUBHLGIMX6702-31-23 10:18:00 Test Item Value Reference Range Interpretation Comments A/G Ratio (test code = A/G Ratio) 1.0 0.7-1.6 [facility] CenterIyivoubVYTHTQKAHTUI4865-11-32 10:18:00 Test Item Value Reference Range Interpretation Comments AST (test code = AST) 45 See_Comment [Auto mated message] The system which ge nerated this result transmit rafael reference range : <=37. The reference range was not used to interpr et this result as josi l/abnormal. [facility] CenterQmygpscFFIUCJFOPHUP0105-19-89 10:18:00 Test Item Value Reference Range Interpretation Comments ALT (test code = ALT) 57 See_Comment [Auto mated message] The system which ge nerated this result transmit rafael reference range : <=65. The reference range was not used to interpr et this result as josi l/abnormal. [facility] CenterCmxrqaaMXYTJJQTZBBM3557-59-70 10:18:00 Test Item Value Reference Range Interpretation Comments Alk Phos (test code = Alk Phos) 49 39-136 [facility] CenterLxxhncuRGDGPPWHTFWO1847-52-85 10:18:00 Test Item Value Reference Range Interpretation Comments Bili Total (test code = Bili Total) 0.7 0.2-1.3 [facility] CenterQgaflccIKRZLLLDTAOC8373-19-72 10:18:00 Test Item Value Reference Range Interpretation Comments Glucose Lvl (test code = Glucose Lvl) 145 70-99 [facility] CenterHevonxoRCUWGRYKYBYZ0852-31-72 10:18:00 Test Item Value Reference Range Interpretation Comments Creatinine Lvl (test code = Creatinine 0.9 0.5-1.4 Lvl) [facility] CenterGryepdcNXYPPHBACRKC5620-85-70 10:18:00 Test Item Value Reference Range Interpretation Comments BUN (test code = BUN) 12 - [facility] CenterSdzemzvGRNRWJJGHFEI2509-99-64 10:18:00 Test Item Value Reference Range Interpretation Comments B/C Ratio (test code = B/C Ratio) 13 6-25 [facility] CenterFedkkwnWHAMTGGSDOHM1532-54-22 10:18:00 Test Item Value Reference Range Interpretation Comments CO2 (test code = CO2) 30 24-32 [facility] CenterCpoezljXPBZSBRXRHNZ1214-01-42 10:18:00 Test Item Value Reference Range Interpretation Comments Total Protein (test code = Total 6.1 6.4-8.4 Protein) [facility] CenterQyykrnzPAYLOIIPPHHR5152-23-79 10:18:00 Test Item Value Reference Range Interpretation Comments AGAP (test code = AGAP) 9.5 10.0-20.0 [facility] CenterBsgfgdrNQVSKEXDTJTW2722-96-94 10:18:00 Test Item Value Reference Range Interpretation Comments Albumin Lvl (test code = Albumin Lvl) 3.1 3.5-5.0 [facility] HospitalWiugcklLKKAUQVVZS3183-90-54 10:18:00 Test Item Value Reference Range Interpretation Comments Eosinophils # (test code 0.2 See_Comment [A utomated message] The = Eosinophils #) system whic h generated this result tra nsmitted reference range : <=0.5. The reference r genesis was not used to int erpret this result as normal/abnormal . [facility] HospitalZkiptiuKAOVUFWUAV4830-16-61 10:18:00 Test Item Value Reference Range Interpretation Comments Macrocyte (test code = 2+ *ABN*(10/31/14 Macrocyte) 5:18 AM) [facility] HospitalFismcxyJHUBQBDHLO3040-30-68 10:18:00 Test Item Value Reference Range Interpretation Comments Monocytes # (test code 0.5 See_Comment [Aut omated message] The = Monocytes #) system which generated this result tra nsmitted reference range : <=0.8. The reference r genesis was not used to int erpret this result as normal/abnormal . [facility] HospitalCwfsqgsHRPSXPWJWH1994-70-41 10:18:00 Test Item Value Reference Range Interpretation Comments Eosinophils (test code = 2.3 See_Comment [A utomated message] The Eosinophils) system which ge nerated this result tra nsmitted reference range : <=4.0. The reference r genesis was not used to int erpret this result as normal/abnormal . [facility] HospitalHgufrdpXJZYKGAWWU7626-42-01 10:18:00 Test Item Value Reference Range Interpretation Comments Lymphocytes # (test code = Lymphocytes 1.2 1.0-5.5 #) [facility] HospitalDtocvngLIQQGBRKIS3769-99-62 10:18:00 Test Item Value Reference Range Interpretation Comments Basophils (test code = 0.3 See_Comment [Aut omated message] The Basophils) system which ge nerated this result tra nsmitted reference range : <=1.0. The reference r genesis was not used to int erpret this result as normal/abnormal . [facility] HospitalThhhqtaPBOEZWZXOB1510-86-21 10:18:00 Test Item Value Reference Range Interpretation Comments Segs-Bands # (test code = Segs-Bands #) 6.1 1.5-8.1 [facility] HospitalYgkhokjGCIEYSIXVF5728-98-76 10:18:00 Test Item Value Reference Range Interpretation Comments Monocytes (test code = Monocytes) 6.1 2.0-12.0 [facility] HospitalQzdzslhJMUBILSSJO2657-25-17 10:18:00 Test Item Value Reference Range Interpretation Comments Lymphocytes (test code = Lymphocytes) 15.1 20.0-40.0 [facility] HospitalIslawijHEPHNHQNSO7302-59-02 10:18:00 Test Item Value Reference Range Interpretation Comments Segs (test code = Segs) 76.2 45.0-75.0 [facility] HospitalGpjxdvkXTIOZLJFAH1274-17-09 10:18:00 Test Item Value Reference Range Interpretation Comments MCHC (test code = MCHC) 33.9 32.0-36.0 [facility] HospitalIoqyomeVGXDGDBSSX2925-40-52 10:18:00 Test Item Value Reference Range Interpretation Comments MCV (test code = MCV) 104.7 80.0-98.0 [facility] HospitalPcuzwiwLLIKIUOYEV5331-16-40 10:18:00 Test Item Value Reference Range Interpretation Comments Hct (test code = Hct) 35.5 36.0-48.0 [facility] HospitalCxebaghEVCWFPNJNU4173-06-80 10:18:00 Test Item Value Reference Range Interpretation Comments Hgb (test code = Hgb) 12.0 12.0-16.0 [facility] HospitalBhhoxmwUOLELYWJKG5290-58-13 10:18:00 Test Item Value Reference Range Interpretation Comments WBC (test code = WBC) 8.0 3.7-10.4 [facility] HospitalKjakwjdZDQIHWTDQD3135-10-38 10:18:00 Test Item Value Reference Range Interpretation Comments RBC (test code = RBC) 3.39 4.20-5.40 [facility] HospitalYuitfloPOEZBIKVIH3607-74-47 10:18:00 Test Item Value Reference Range Interpretation Comments Platelet (test code = Platelet) 128 133-450 [facility] HospitalGmmbpykWXJVMHEFOB7335-81-39 10:18:00 Test Item Value Reference Range Interpretation Comments MPV (test code = MPV) 9.5 7.4-10.4 [facility] HospitalDwrwnefXBRGNJBXZP5639-40-00 10:18:00 Test Item Value Reference Range Interpretation Comments RDW (test code = RDW) 12.7 11.5-14.5 [facility] HospitalVoehqjaSWKOZWACMB3905-72-53 10:18:00 Test Item Value Reference Range Interpretation Comments MCH (test code = MCH) 35.5 pg 27.0-31.0 [facility]BqkvsfrCDNMTN3763-79-55 10:18:00 Test Item Value Reference Range Interpretation Comments HDL (test code = HDL) 77 [facility] HospitalDtogfrvLWQBPT1231-64-60 10:18:00 Test Item Value Reference Range Interpretation Comments Chol (test code = Chol) 172 [facility] HospitalKnhvltqYTXRRE9155-60-52 10:18:00 Test Item Value Reference Range Interpretation Comments Trig (test code = Trig) 67 [facility] HospitalEfwcyhtHFCLLR4429-34-32 10:18:00 Test Item Value Reference Range Interpretation Comments LDL (Calculated) (test code = LDL 82 (Calculated)) [facility] HospitalDsegpalQERLTC7283-65-14 10:18:00 Test Item Value Reference Range Interpretation Comments CHD Risk (test code = CHD Risk) 2.23 3.90-5.80 [facility] HospitalAppzkvkPMFZML1964-68-51 10:18:00 Test Item Value Reference Range Interpretation Comments VLDL (test code = VLDL) 13 [facility]CHEM SHEDT5160-51-43 10:18:00 Test Item Value Reference Range Interpretation Comments Lipase Lvl (test code = Lipase Lvl) 660 73-393 [facility] CenterBkdcgtxUVOKARZKVCRV3502-49-09 10:18:00 Test Item Value Reference Range Interpretation Comments Sodium Lvl (test code = Sodium Lvl) 134 135-145 [facility] CenterLfjvbzwYINOCSWWCDMZ7560-39-52 10:18:00 Test Item Value Reference Range Interpretation Comments Potassium Lvl (test code = Potassium 3.5 3.5-5.1 Lvl) [facility] CenterRkrysqrSKPNTSBFIYNV0289-78-36 10:18:00 Test Item Value Reference Range Interpretation Comments Calcium Lvl (test code = Calcium Lvl) 7.8 8.5-10.5 [facility] CenterJydkcraUZYEPXDEPCLE3711-57-86 10:18:00 Test Item Value Reference Range Interpretation Comments Chloride Lvl (test code = Chloride Lvl) 98 95-109 [facility] CenterGrgkuqrMKRUDHWEQTRN0424-33-10 10:18:00 Test Item Value Reference Range Interpretation Comments eGFR (test code = eGFR) 72 [facility] CenterSpjkbptBXHHEDXUKDEG9108-94-96 10:18:00 Test Item Value Reference Range Interpretation Comments Globulin (test code = Globulin) 3.0 2.0-4.0 [facility] CenterBvrycksKXRVFXDQDTHV4552-54-99 10:18:00 Test Item Value Reference Range Interpretation Comments A/G Ratio (test code = A/G Ratio) 1.0 0.7-1.6 [facility] CenterZqjauqfZORRJCKFLZBU2189-96-48 10:18:00 Test Item Value Reference Range Interpretation Comments AST (test code = AST) 45 See_Comment [Auto mated message] The system which ge nerated this result transmit rafael reference range : <=37. The reference range was not used to interpr et this result as josi l/abnormal. [facility] CenterIadxogwLBXMZHQSIKBK8443-69-26 10:18:00 Test Item Value Reference Range Interpretation Comments ALT (test code = ALT) 57 See_Comment [Auto mated message] The system which ge nerated this result transmit rafael reference range : <=65. The reference range was not used to interpr et this result as josi l/abnormal. [facility] CenterZeglftqMHJFUENYLJUM3536-43-35 10:18:00 Test Item Value Reference Range Interpretation Comments Alk Phos (test code = Alk Phos) 49 39-136 [facility] CenterXbrjtkzUAQECOGQUOVJ8443-48-49 10:18:00 Test Item Value Reference Range Interpretation Comments Bili Total (test code = Bili Total) 0.7 0.2-1.3 [facility] CenterKodwhsoUFWUQPUOMMWZ6024-98-76 10:18:00 Test Item Value Reference Range Interpretation Comments Glucose Lvl (test code = Glucose Lvl) 145 70-99 [facility] CenterLekellzSJBXJUIMHYAC2198-93-81 10:18:00 Test Item Value Reference Range Interpretation Comments Creatinine Lvl (test code = Creatinine 0.9 0.5-1.4 Lvl) [facility] CenterZrbawteVSEXTLLLAPEM5959-58-47 10:18:00 Test Item Value Reference Range Interpretation Comments BUN (test code = BUN) 12 7-22 [facility] CenterUagochrKIFBEGLNIECQ9124-09-51 10:18:00 Test Item Value Reference Range Interpretation Comments B/C Ratio (test code = B/C Ratio) 13 6-25 [facility] CenterZtikyjhDTXCELLUXGLI8167-17-02 10:18:00 Test Item Value Reference Range Interpretation Comments CO2 (test code = CO2) 30 24-32 [facility] CenterUgbfjngGSFXLBOERIYG5895-13-29 10:18:00 Test Item Value Reference Range Interpretation Comments Total Protein (test code = Total 6.1 6.4-8.4 Protein) [facility] CenterVthtwwnEPDVHLPVWPCF5022-21-40 10:18:00 Test Item Value Reference Range Interpretation Comments AGAP (test code = AGAP) 9.5 10.0-20.0 [facility] CenterPjhmafrXQLXSEHSIIIP0955-73-13 10:18:00 Test Item Value Reference Range Interpretation Comments Albumin Lvl (test code = Albumin Lvl) 3.1 3.5-5.0 [facility] HospitalTqumhamVMSWPFQSCK9706-62-14 10:18:00 Test Item Value Reference Range Interpretation Comments Eosinophils # (test code 0.2 See_Comment [A utomated message] The = Eosinophils #) system whic h generated this result tra nsmitted reference range : <=0.5. The reference r gneesis was not used to int erpret this result as normal/abnormal . [facility] HospitalSzfncmhQZSSAPXRAT3931-69-16 10:18:00 Test Item Value Reference Range Interpretation Comments Macrocyte (test code = 2+ *ABN*(10/31/14 Macrocyte) 5:18 AM) [facility] HospitalBmkdyiiOMTOJHRXMZ1514-64-51 10:18:00 Test Item Value Reference Range Interpretation Comments Monocytes # (test code 0.5 See_Comment [Aut omated message] The = Monocytes #) system which generated this result tra nsmitted reference range : <=0.8. The reference r genesis was not used to int erpret this result as normal/abnormal . [facility] HospitalKwbszrhJQTBGIERIW9430-15-17 10:18:00 Test Item Value Reference Range Interpretation Comments Eosinophils (test code = 2.3 See_Comment [A utomated message] The Eosinophils) system which ge nerated this result tra nsmitted reference range : <=4.0. The reference r genesis was not used to int erpret this result as normal/abnormal . [facility] HospitalBuerlxmUPLFVFCXFA6865-76-74 10:18:00 Test Item Value Reference Range Interpretation Comments Lymphocytes # (test code = Lymphocytes 1.2 1.0-5.5 #) [facility] HospitalNbzsnukFALKZFEZUM5039-12-16 10:18:00 Test Item Value Reference Range Interpretation Comments Basophils (test code = 0.3 See_Comment [Aut omated message] The Basophils) system which ge nerated this result tra nsmitted reference range : <=1.0. The reference r genesis was not used to int erpret this result as normal/abnormal . [facility] HospitalOxujhmaGSAXBEFYXX0025-15-98 10:18:00 Test Item Value Reference Range Interpretation Comments Segs-Bands # (test code = Segs-Bands #) 6.1 1.5-8.1 [facility] HospitalOtvunwoUOFJNLZPNE2225-85-60 10:18:00 Test Item Value Reference Range Interpretation Comments Monocytes (test code = Monocytes) 6.1 2.0-12.0 [facility] HospitalQyppvmwNSCIFPDHYY6225-88-96 10:18:00 Test Item Value Reference Range Interpretation Comments Lymphocytes (test code = Lymphocytes) 15.1 20.0-40.0 [facility] HospitalXnchralXLCPWVGBPG9874-50-98 10:18:00 Test Item Value Reference Range Interpretation Comments Segs (test code = Segs) 76.2 45.0-75.0 [facility] HospitalBfdhdpgKQYPVUZNTI2858-00-56 10:18:00 Test Item Value Reference Range Interpretation Comments MCHC (test code = MCHC) 33.9 32.0-36.0 [facility] HospitalIbsagntZSXVMWKDHL0074-03-32 10:18:00 Test Item Value Reference Range Interpretation Comments MCV (test code = MCV) 104.7 80.0-98.0 [facility] HospitalOdsdlaeQRKVPIMTDA5764-90-21 10:18:00 Test Item Value Reference Range Interpretation Comments Hct (test code = Hct) 35.5 36.0-48.0 [facility] HospitalWtrlhnkZLQPLLNUPE6757-33-52 10:18:00 Test Item Value Reference Range Interpretation Comments Hgb (test code = Hgb) 12.0 12.0-16.0 [facility] HospitalHaebztgZURHAFAZCP4097-46-41 10:18:00 Test Item Value Reference Range Interpretation Comments WBC (test code = WBC) 8.0 3.7-10.4 [facility] [facility]GE[facility]W8078[facility]96-45 10:18:00 Test Item Value Reference Range Interpretation Comments RBC (test code = RBC) 3.39 4.20-5.40 [facility]FjvadqsAETNIMGOCX4645-70-68 10:18:00 Test Item Value Reference Range Interpretation Comments Platelet (test code = Platelet) 128 133-450 [facility] HospitalUppdffnHRFSIZCSMT1479-05-98 10:18:00 Test Item Value Reference Range Interpretation Comments MPV (test code = MPV) 9.5 7.4-10.4 [facility] HospitalDvvcfbsEQRKQBDCSI8811-69-29 10:18:00 Test Item Value Reference Range Interpretation Comments RDW (test code = RDW) 12.7 11.5-14.5 [facility] HospitalRxgpqzlPZSKJXBYTM9751-47-76 10:18:00 Test Item Value Reference Range Interpretation Comments MCH (test code = MCH) 35.5 pg 27.0-31.0 [facility]ZkxvdxlXFJUVH9183-71-00 10:18:00 Test Item Value Reference Range Interpretation Comments HDL (test code = HDL) 77 [facility] HospitalRcfurrhOVVOKU7930-04-34 10:18:00 Test Item Value Reference Range Interpretation Comments Chol (test code = Chol) 172 [facility] HospitalXloqqfgMXYBUV1502-61-22 10:18:00 Test Item Value Reference Range Interpretation Comments Trig (test code = Trig) 67 [facility]EoxqsrxGJNCQW1284-57-63 10:18:00 Test Item Value Reference Range Interpretation Comments LDL (Calculated) (test code = LDL 82 (Calculated)) [facility] HospitalOnudsfvTTYVWG6732-64-04 10:18:00 Test Item Value Reference Range Interpretation Comments CHD Risk (test code = CHD Risk) 2.23 3.90-5.80 [facility] HospitalJuenlpvCWJARJ2351-70-26 10:18:00 Test Item Value Reference Range Interpretation Comments VLDL (test code = VLDL) 13 [facility] HospitalCHEM LSNKI4480-61-82 10:18:00 Test Item Value Reference Range Interpretation Comments Lipase Lvl (test code = Lipase Lvl) 660 73-393 [facility] CenterCahzfmpAJSGDMHUWYHX7426-75-74 10:18:00 Test Item Value Reference Range Interpretation Comments Sodium Lvl (test code = Sodium Lvl) 134 135-145 [facility] CenterSjtplmdZWYGMGAKQWSJ8330-05-24 10:18:00 Test Item Value Reference Range Interpretation Comments Potassium Lvl (test code = Potassium 3.5 3.5-5.1 Lvl) [facility] CenterIfmmgezIXPXGRHYWXXQ0990-03-24 10:18:00 Test Item Value Reference Range Interpretation Comments Calcium Lvl (test code = Calcium Lvl) 7.8 8.5-10.5 [facility] CenterMcdwymeAIHDITBOFQEZ5419-57-47 10:18:00 Test Item Value Reference Range Interpretation Comments Chloride Lvl (test code = Chloride Lvl) 98 95-109 [facility] CenterEsperdoKJCJCYHXLCTI3468-03-63 10:18:00 Test Item Value Reference Range Interpretation Comments eGFR (test code = eGFR) 72 [facility] CenterXtbhjrkUYPYSGVJRKBD3452-35-38 10:18:00 Test Item Value Reference Range Interpretation Comments Globulin (test code = Globulin) 3.0 2.0-4.0 [facility] CenterFbesckvEEDUBUSLLQMA5847-59-22 10:18:00 Test Item Value Reference Range Interpretation Comments A/G Ratio (test code = A/G Ratio) 1.0 0.7-1.6 [facility] CenterEslnxpjJLPZYPGXWKGJ3742-15-64 10:18:00 Test Item Value Reference Range Interpretation Comments AST (test code = AST) 45 See_Comment [Auto mated message] The system which ge nerated this result transmit rafael reference range : <=37. The reference range was not used to interpr et this result as josi l/abnormal. [facility] CenterFrcllupIRQRCGEFZTYA7394-04-23 10:18:00 Test Item Value Reference Range Interpretation Comments ALT (test code = ALT) 57 See_Comment [Auto mated message] The system which ge nerated this result transmit rafael reference range : <=65. The reference range was not used to interpr et this result as josi l/abnormal. [facility] CenterYrdazjrOHZNHVZSWFSD1294-27-17 10:18:00 Test Item Value Reference Range Interpretation Comments Alk Phos (test code = Alk Phos) 49 39-136 [facility] CenterRvkllipMYIAWLDCXJIY3533-47-67 10:18:00 Test Item Value Reference Range Interpretation Comments Bili Total (test code = Bili Total) 0.7 0.2-1.3 [facility] CenterOgovamdBKIUJFTESCPR5576-02-80 10:18:00 Test Item Value Reference Range Interpretation Comments Glucose Lvl (test code = Glucose Lvl) 145 70-99 [facility] CenterUiaonlyLAYUHWTJDIDZ9231-55-76 10:18:00 Test Item Value Reference Range Interpretation Comments Creatinine Lvl (test code = Creatinine 0.9 0.5-1.4 Lvl) [facility] CenterQrvfianFSZPWHNVWNHW9475-18-64 10:18:00 Test Item Value Reference Range Interpretation Comments BUN (test code = BUN) 12 7-22 [facility] CenterKtgaeoyVOMYAMSQAGCZ5109-59-88 10:18:00 Test Item Value Reference Range Interpretation Comments B/C Ratio (test code = B/C Ratio) 13 6-25 [facility] CenterMdpgbuhUUYVQKOYOJXW5535-27-51 10:18:00 Test Item Value Reference Range Interpretation Comments CO2 (test code = CO2) 30 24-32 [facility] CenterKhsexhnAHPTHKIIWCNP7555-41-02 10:18:00 Test Item Value Reference Range Interpretation Comments Total Protein (test code = Total 6.1 6.4-8.4 Protein) [facility] CenterNkxonwpDTWJWHFXMQEQ4339-94-20 10:18:00 Test Item Value Reference Range Interpretation Comments AGAP (test code = AGAP) 9.5 10.0-20.0 [facility] CenterIgwnnvbYFYIHROZOBYJ6048-82-05 10:18:00 Test Item Value Reference Range Interpretation Comments Albumin Lvl (test code = Albumin Lvl) 3.1 3.5-5.0 [facility] HospitalVutmfpxLQNTKYFUKF1965-30-69 10:18:00 Test Item Value Reference Range Interpretation Comments Eosinophils # (test code 0.2 See_Comment [A utomated message] The = Eosinophils #) system whic h generated this result tra nsmitted reference range : <=0.5. The reference r genesis was not used to int erpret this result as normal/abnormal . [facility] HospitalDeaquezYTCWVBLAGH5735-83-57 10:18:00 Test Item Value Reference Range Interpretation Comments Macrocyte (test code = 2+ *ABN*(10/31/14 Macrocyte) 5:18 AM) [facility] HospitalGneqydpJWBCMQFYRZ2612-09-74 10:18:00 Test Item Value Reference Range Interpretation Comments Monocytes # (test code 0.5 See_Comment [Aut omated message] The = Monocytes #) system which generated this result tra nsmitted reference range : <=0.8. The reference r genesis was not used to int erpret this result as normal/abnormal . [facility] HospitalJmrhhoxXZRAKFDKKT3043-36-23 10:18:00 Test Item Value Reference Range Interpretation Comments Eosinophils (test code = 2.3 See_Comment [A utomated message] The Eosinophils) system which ge nerated this result tra nsmitted reference range : <=4.0. The reference r genesis was not used to int erpret this result as normal/abnormal . [facility] HospitalVzvruyyFWBLXUXYIY5904-67-32 10:18:00 Test Item Value Reference Range Interpretation Comments Lymphocytes # (test code = Lymphocytes 1.2 1.0-5.5 #) [facility] HospitalXdrrxjdFUMUOLZSCA5934-57-93 10:18:00 Test Item Value Reference Range Interpretation Comments Basophils (test code = 0.3 See_Comment [Aut omated message] The Basophils) system which ge nerated this result tra nsmitted reference range : <=1.0. The reference r genesis was not used to int erpret this result as normal/abnormal . [facility] HospitalQtrthbvGTFWONAZOF6989-52-67 10:18:00 Test Item Value Reference Range Interpretation Comments Segs-Bands # (test code = Segs-Bands #) 6.1 1.5-8.1 [facility] HospitalUutknarBAHDFAREIU8063-66-83 10:18:00 Test Item Value Reference Range Interpretation Comments Monocytes (test code = Monocytes) 6.1 2.0-12.0 [facility]JthfxzeTUDIDZSSOC3608-31-35 10:18:00 Test Item Value Reference Range Interpretation Comments Lymphocytes (test code = Lymphocytes) 15.1 20.0-40.0 [facility] HospitalSnajjgtBDQTYFNITQ9356-29-71 10:18:00 Test Item Value Reference Range Interpretation Comments Segs (test code = Segs) 76.2 45.0-75.0 [facility] HealthOxnpupbUITQXPHSYP8640-01-76 10:18:00 Test Item Value Reference Range Interpretation Comments MCHC (test code = MCHC) 33.9 32.0-36.0 [facility] HospitalTaklpaiFDGQYFJGMQ2318-53-08 10:18:00 Test Item Value Reference Range Interpretation Comments MCV (test code = MCV) 104.7 80.0-98.0 [facility] HospitalQmlvndtGCPRNLHQHH9328-57-94 10:18:00 Test Item Value Reference Range Interpretation Comments Hct (test code = Hct) 35.5 36.0-48.0 [facility] HospitalWligxvtUWEXWDCTZN5239-88-65 10:18:00 Test Item Value Reference Range Interpretation Comments Hgb (test code = Hgb) 12.0 12.0-16.0 [facility] HospitalGzsuahyKUJQWVNSCJ7264-38-22 10:18:00 Test Item Value Reference Range Interpretation Comments WBC (test code = WBC) 8.0 3.7-10.4 [facility] HospitalMvjtrppQDEAMRCGLU9914-90-81 10:18:00 Test Item Value Reference Range Interpretation Comments RBC (test code = RBC) 3.39 4.20-5.40 [facility] HospitalJbpfrvkKKMUNTQUDU5740-54-46 10:18:00 Test Item Value Reference Range Interpretation Comments Platelet (test code = Platelet) 128 133-450 [facility] HospitalIgfbzulVGMWBZFPDA5141-65-93 10:18:00 Test Item Value Reference Range Interpretation Comments MPV (test code = MPV) 9.5 7.4-10.4 [facility] HospitalYfcsfdfEBFKPWUBCY3135-75-25 10:18:00 Test Item Value Reference Range Interpretation Comments RDW (test code = RDW) 12.7 11.5-14.5 [facility] HealthFrzhnxbYTWRQIJOFU9241-51-99 10:18:00 Test Item Value Reference Range Interpretation Comments MCH (test code = MCH) 35.5 pg 27.0-31.0 [facility] ChildrenVuugiorJSJCQN0839-16-62 10:18:00 Test Item Value Reference Range Interpretation Comments HDL (test code = HDL) 77 [facility] HospitalKgkkjgfWXUKEA6661-10-86 10:18:00 Test Item Value Reference Range Interpretation Comments Chol (test code = Chol) 172 [facility] HospitalMnwrrlxSWHIWV2914-18-81 10:18:00 Test Item Value Reference Range Interpretation Comments Trig (test code = Trig) 67 [facility] HospitalVmzswmuSDIPHG1050-72-94 10:18:00 Test Item Value Reference Range Interpretation Comments LDL (Calculated) (test code = LDL 82 (Calculated)) [facility] HospitalTjrwnttNXFZGP1758-68-12 10:18:00 Test Item Value Reference Range Interpretation Comments CHD Risk (test code = CHD Risk) 2.23 3.90-5.80 [facility] HospitalFgwmiulYMNGRM4060-59-70 10:18:00 Test Item Value Reference Range Interpretation Comments VLDL (test code = VLDL) 13 [facility] HospitalCHEM GADOG7959-42-17 10:18:00 Test Item Value Reference Range Interpretation Comments Lipase Lvl (test code = Lipase Lvl) 660 73-393 [facility] CenterCeslkxbHCHIRRYWEFJV4806-90-67 10:18:00 Test Item Value Reference Range Interpretation Comments Sodium Lvl (test code = Sodium Lvl) 134 135-145 [facility] CenterSgdpzezNTDXYCTSRHYE6302-96-68 10:18:00 Test Item Value Reference Range Interpretation Comments Potassium Lvl (test code = Potassium 3.5 3.5-5.1 Lvl) [facility] CenterIqwonraRWMFWPSCGMTB4415-80-77 10:18:00 Test Item Value Reference Range Interpretation Comments Calcium Lvl (test code = Calcium Lvl) 7.8 8.5-10.5 [facility]CjhmywfTOATAGXRDVQS2270-67-81 10:18:00 Test Item Value Reference Range Interpretation Comments Chloride Lvl (test code = Chloride Lvl) 98 95-109 [facility] CenterQztgereHJSWDYHQERHM1375-44-58 10:18:00 Test Item Value Reference Range Interpretation Comments eGFR (test code = eGFR) 72 [facility] CenterPxgaayoUCMFPGBDXIHV1261-96-66 10:18:00 Test Item Value Reference Range Interpretation Comments Globulin (test code = Globulin) 3.0 2.0-4.0 [facility] CenterStnfjiuRCFTMIWPNVYN5431-08-96 10:18:00 Test Item Value Reference Range Interpretation Comments A/G Ratio (test code = A/G Ratio) 1.0 0.7-1.6 [facility] CenterFztfbakTGBEYTHVITYL3794-70-35 10:18:00 Test Item Value Reference Range Interpretation Comments AST (test code = AST) 45 See_Comment [Auto mated message] The system which ge nerated this result transmit rafael reference range : <=37. The reference range was not used to interpr et this result as josi l/abnormal. [facility] CenterLocgamhEEEAXSGYZFXC7391-95-15 10:18:00 Test Item Value Reference Range Interpretation Comments ALT (test code = ALT) 57 See_Comment [Auto mated message] The system which ge nerated this result transmit rafael reference range : <=65. The reference range was not used to interpr et this result as josi l/abnormal. [facility] CenterKlcqngrOAMETVXTKICR1496-73-98 10:18:00 Test Item Value Reference Range Interpretation Comments Alk Phos (test code = Alk Phos) 49 39-136 [facility] CenterJkqldnuLPLCGQRRLVPC7909-74-31 10:18:00 Test Item Value Reference Range Interpretation Comments Bili Total (test code = Bili Total) 0.7 0.2-1.3 [facility] CenterKirgfvkNKWJMQWXIQBC6916-73-40 10:18:00 Test Item Value Reference Range Interpretation Comments Glucose Lvl (test code = Glucose Lvl) 145 70-99 [facility] CenterEyobqcmIMKDRZOOAMNT2010-75-58 10:18:00 Test Item Value Reference Range Interpretation Comments Creatinine Lvl (test code = Creatinine 0.9 0.5-1.4 Lvl) [facility] CenterBbwcujgXVHHQKFPJQZA2339-59-42 10:18:00 Test Item Value Reference Range Interpretation Comments BUN (test code = BUN) 12 7-22 [facility] CenterMjhsgymCIRPCNQACNIU9520-13-60 10:18:00 Test Item Value Reference Range Interpretation Comments B/C Ratio (test code = B/C Ratio) 13 6-25 [facility] CenterLmxfbgfXVYMASMKYQUO6034-46-64 10:18:00 Test Item Value Reference Range Interpretation Comments CO2 (test code = CO2) 30 24-32 [facility] CenterGxuslumLFZMODPVZDLE2162-65-71 10:18:00 Test Item Value Reference Range Interpretation Comments Total Protein (test code = Total 6.1 6.4-8.4 Protein) [facility] CenterVggfrxzJXOJTWUUOOEI8760-52-94 10:18:00 Test Item Value Reference Range Interpretation Comments AGAP (test code = AGAP) 9.5 10.0-20.0 [facility] CenterLgomkhdDWTERWKNFFYY9317-31-76 10:18:00 Test Item Value Reference Range Interpretation Comments Albumin Lvl (test code = Albumin Lvl) 3.1 3.5-5.0 [facility] HospitalRgcgsibQFHSRRGEZB5347-34-98 10:18:00 Test Item Value Reference Range Interpretation Comments Eosinophils # (test code 0.2 See_Comment [A utomated message] The = Eosinophils #) system whic h generated this result tra nsmitted reference range : <=0.5. The reference r genesis was not used to int erpret this result as normal/abnormal . [facility] HospitalVykmjisKCBMENBUFK2460-43-80 10:18:00 Test Item Value Reference Range Interpretation Comments Macrocyte (test code = 2+ *ABN*(10/31/14 Macrocyte) 5:18 AM) [facility] HospitalItdcrkvBBKUMGWDEF2798-40-22 10:18:00 Test Item Value Reference Range Interpretation Comments Monocytes # (test code 0.5 See_Comment [Aut omated message] The = Monocytes #) system which generated this result tra nsmitted reference range : <=0.8. The reference r genesis was not used to int erpret this result as normal/abnormal . [facility] HospitalDhnkyizRSJXYGHDMQ8878-19-07 10:18:00 Test Item Value Reference Range Interpretation Comments Eosinophils (test code = 2.3 See_Comment [A utomated message] The Eosinophils) system which ge nerated this result tra nsmitted reference range : <=4.0. The reference r genesis was not used to int erpret this result as normal/abnormal . [facility] HospitalNupriamRTUPVEMUSB1282-30-21 10:18:00 Test Item Value Reference Range Interpretation Comments Lymphocytes # (test code = Lymphocytes 1.2 1.0-5.5 #) [facility] HospitalGcbkpzjXZZGPVQKJF1420-65-95 10:18:00 Test Item Value Reference Range Interpretation Comments Basophils (test code = 0.3 See_Comment [Aut omated message] The Basophils) system which ge nerated this result tra nsmitted reference range : <=1.0. The reference r genesis was not used to int erpret this result as normal/abnormal . [facility] HospitalPsqbyvvXKFMPERYST9225-02-62 10:18:00 Test Item Value Reference Range Interpretation Comments Segs-Bands # (test code = Segs-Bands #) 6.1 1.5-8.1 [facility] HospitalYjdvpwzVZTEONVKJY7800-61-21 10:18:00 Test Item Value Reference Range Interpretation Comments Monocytes (test code = Monocytes) 6.1 2.0-12.0 [facility] HospitalRmlnsffZHYJAJYWNW4031-90-87 10:18:00 Test Item Value Reference Range Interpretation Comments Lymphocytes (test code = Lymphocytes) 15.1 20.0-40.0 [facility] HospitalBdipnduJXBCHLWSEF4075-41-83 10:18:00 Test Item Value Reference Range Interpretation Comments Segs (test code = Segs) 76.2 45.0-75.0 [facility] HospitalRqxhnglXFIHDEBPIN3919-99-03 10:18:00 Test Item Value Reference Range Interpretation Comments MCHC (test code = MCHC) 33.9 32.0-36.0 [facility] HospitalTnoqhkkVWMXLEWZPY5585-88-14 10:18:00 Test Item Value Reference Range Interpretation Comments MCV (test code = MCV) 104.7 80.0-98.0 [facility] HospitalWpvylwtIJSEHLCRCJ1398-82-58 10:18:00 Test Item Value Reference Range Interpretation Comments Hct (test code = Hct) 35.5 36.0-48.0 [facility] HospitalTbevmxyMMTCKAOEPU8984-73-08 10:18:00 Test Item Value Reference Range Interpretation Comments Hgb (test code = Hgb) 12.0 12.0-16.0 [facility] HospitalOovtouhJZZRKYPDZQ2673-57-18 10:18:00 Test Item Value Reference Range Interpretation Comments WBC (test code = WBC) 8.0 3.7-10.4 [facility] HospitalZwbkqyqINLXQTCYVX7186-08-40 10:18:00 Test Item Value Reference Range Interpretation Comments RBC (test code = RBC) 3.39 4.20-5.40 [facility] HospitalEkjckluLMXYGXFOWN0141-59-70 10:18:00 Test Item Value Reference Range Interpretation Comments Platelet (test code = Platelet) 128 133-450 [facility] HospitalAquqonbVNLQAEGPBU4365-88-90 10:18:00 Test Item Value Reference Range Interpretation Comments MPV (test code = MPV) 9.5 7.4-10.4 [facility] HospitalNabzzokRBJTOVVXFD5873-08-60 10:18:00 Test Item Value Reference Range Interpretation Comments RDW (test code = RDW) 12.7 11.5-14.5 [facility]NumdfhqHYHNBQYFYQ4846-66-31 10:18:00 Test Item Value Reference Range Interpretation Comments MCH (test code = MCH) 35.5 pg 27.0-31.0 [facility] HospitalFyoaltpXNDMAW3083-18-83 10:18:00 Test Item Value Reference Range Interpretation Comments HDL (test code = HDL) 77 [facility] HospitalDguodqzZXBAHP1844-48-94 10:18:00 Test Item Value Reference Range Interpretation Comments Chol (test code = Chol) 172 [facility]UhxfxjdMEGGED0801-02-86 10:18:00 Test Item Value Reference Range Interpretation Comments Trig (test code = Trig) 67 [facility] HospitalBzwgdgtIAVUHF9727-06-13 10:18:00 Test Item Value Reference Range Interpretation Comments LDL (Calculated) (test code = LDL 82 (Calculated)) [facility] HospitalDonxsdpSNBFYZ7090-64-57 10:18:00 Test Item Value Reference Range Interpretation Comments CHD Risk (test code = CHD Risk) 2.23 3.90-5.80 [facility] HospitalUfucnjdTGKXYO5680-30-36 10:18:00 Test Item Value Reference Range Interpretation Comments VLDL (test code = VLDL) 13 [facility] HospitalCHEM ASZQV6838-76-93 10:18:00 Test Item Value Reference Range Interpretation Comments Lipase Lvl (test code = Lipase Lvl) 660 73393 [facility] CenterFxvgwrsPKMCQXBWIEYR6730-32-38 10:18:00 Test Item Value Reference Range Interpretation Comments Sodium Lvl (test code = Sodium Lvl) 134 135-145 [facility] CenterWlrzikwPQVIGBFQGJCI5405-71-58 10:18:00 Test Item Value Reference Range Interpretation Comments Potassium Lvl (test code = Potassium 3.5 3.5-5.1 Lvl) [facility] CenterMfmclqbGUFSRPWEEWTX4906-33-21 10:18:00 Test Item Value Reference Range Interpretation Comments Calcium Lvl (test code = Calcium Lvl) 7.8 8.5-10.5 [facility] CenterPbqbzemREXZXUTQRHEU3797-69-32 10:18:00 Test Item Value Reference Range Interpretation Comments Chloride Lvl (test code = Chloride Lvl) 98 95-109 [facility] CenterGacifasGYAIRTKGJQCC1517-43-56 10:18:00 Test Item Value Reference Range Interpretation Comments eGFR (test code = eGFR) 72 [facility] CenterSioheelUWAZAOIJWFTM3693-67-04 10:18:00 Test Item Value Reference Range Interpretation Comments Globulin (test code = Globulin) 3.0 2.0-4.0 [facility] CenterXmkicmhIWSNGCNFGCSU2130-17-78 10:18:00 Test Item Value Reference Range Interpretation Comments A/G Ratio (test code = A/G Ratio) 1.0 0.7-1.6 [facility] CenterXwrdrseFTCPSIZLXLGI6436-41-30 10:18:00 Test Item Value Reference Range Interpretation Comments AST (test code = AST) 45 See_Comment [Auto mated message] The system which ge nerated this result transmit rafael reference range : <=37. The reference range was not used to interpr et this result as josi l/abnormal. [facility] CenterLipkersXHSLXIIWWURE5073-82-91 10:18:00 Test Item Value Reference Range Interpretation Comments ALT (test code = ALT) 57 See_Comment [Auto mated message] The system which ge nerated this result transmit rafael reference range : <=65. The reference range was not used to interpr et this result as josi l/abnormal. [facility] CenterCkqxukfSUBGMHPWFRYN8913-18-77 10:18:00 Test Item Value Reference Range Interpretation Comments Alk Phos (test code = Alk Phos) 49 39-136 [facility] CenterEaqgqgaKSMRBPPSQBGH3155-29-73 10:18:00 Test Item Value Reference Range Interpretation Comments Bili Total (test code = Bili Total) 0.7 0.2-1.3 [facility] CenterZyqsmqiTCLNOAXPVXAW9239-44-30 10:18:00 Test Item Value Reference Range Interpretation Comments Glucose Lvl (test code = Glucose Lvl) 145 70-99 [facility] CenterMfnkhlaNBWKBBEHXNKW0579-05-92 10:18:00 Test Item Value Reference Range Interpretation Comments Creatinine Lvl (test code = Creatinine 0.9 0.5-1.4 Lvl) [facility] CenterCnbsimwYWPBVKORXUUZ3480-52-82 10:18:00 Test Item Value Reference Range Interpretation Comments BUN (test code = BUN) 12 7- [facility] CenterIydwayaABVBWGTFKNLU2948-32-54 10:18:00 Test Item Value Reference Range Interpretation Comments B/C Ratio (test code = B/C Ratio) 13 6-25 [facility] CenterHqemdljVQPFNJQBQPPY0179-01-91 10:18:00 Test Item Value Reference Range Interpretation Comments CO2 (test code = CO2) 30 24-32 [facility] CenterTdpxvlaQJGZHCEOZRGZ8381-74-78 10:18:00 Test Item Value Reference Range Interpretation Comments Total Protein (test code = Total 6.1 6.4-8.4 Protein) [facility] CenterQqplldwYFONKDADZINN2083-38-99 10:18:00 Test Item Value Reference Range Interpretation Comments AGAP (test code = AGAP) 9.5 10.0-20.0 [facility] CenterGzsfsjoDQEWUVSKSOSV5767-00-38 10:18:00 Test Item Value Reference Range Interpretation Comments Albumin Lvl (test code = Albumin Lvl) 3.1 3.5-5.0 [facility] HospitalXtwqpkgERQMWXKEKS0363-57-92 10:18:00 Test Item Value Reference Range Interpretation Comments Eosinophils # (test code 0.2 See_Comment [A utomated message] The = Eosinophils #) system whic h generated this result tra nsmitted reference range : <=0.5. The reference r genesis was not used to int erpret this result as normal/abnormal . [facility] HospitalYlsvpgbKFNTVIGOAC8909-06-03 10:18:00 Test Item Value Reference Range Interpretation Comments Macrocyte (test code = 2+ *ABN*(10/31/14 Macrocyte) 5:18 AM) [facility] HospitalTctipteHECSWLZPVT7606-26-62 10:18:00 Test Item Value Reference Range Interpretation Comments Monocytes # (test code 0.5 See_Comment [Aut omated message] The = Monocytes #) system which generated this result tra nsmitted reference range : <=0.8. The reference r genesis was not used to int erpret this result as normal/abnormal . [facility] HospitalIwbrmirTIZKVHTECF3532-89-03 10:18:00 Test Item Value Reference Range Interpretation Comments Eosinophils (test code = 2.3 See_Comment [A utomated message] The Eosinophils) system which ge nerated this result tra nsmitted reference range : <=4.0. The reference r genesis was not used to int erpret this result as normal/abnormal . [facility]ZnenirjOKLCJWPHZO6448-13-43 10:18:00 Test Item Value Reference Range Interpretation Comments Lymphocytes # (test code = Lymphocytes 1.2 1.0-5.5 #) [facility] HospitalTaqvlnrXNVVXICYQU8551-08-22 10:18:00 Test Item Value Reference Range Interpretation Comments Basophils (test code = 0.3 See_Comment [Aut omated message] The Basophils) system which ge nerated this result tra nsmitted reference range : <=1.0. The reference r genesis was not used to int erpret this result as normal/abnormal . [facility] HospitalOgudbhgFIOFMQCLHK0346-78-50 10:18:00 Test Item Value Reference Range Interpretation Comments Segs-Bands # (test code = Segs-Bands #) 6.1 1.5-8.1 [facility] HospitalTwgmmprYCMSXWNLYJ0828-77-75 10:18:00 Test Item Value Reference Range Interpretation Comments Monocytes (test code = Monocytes) 6.1 2.0-12.0 [facility] HospitalZmpolgrIYHRFHJZEU2321-49-61 10:18:00 Test Item Value Reference Range Interpretation Comments Lymphocytes (test code = Lymphocytes) 15.1 20.0-40.0 [facility] HospitalUjnbsoxWRXMUZXQSK1036-19-26 10:18:00 Test Item Value Reference Range Interpretation Comments Segs (test code = Segs) 76.2 45.0-75.0 [facility] HospitalVboigdpRUZHCLNYZQ0200-08-28 10:18:00 Test Item Value Reference Range Interpretation Comments MCHC (test code = MCHC) 33.9 32.0-36.0 [facility] HospitalRfcqidjRYROUFEBZD4158-52-92 10:18:00 Test Item Value Reference Range Interpretation Comments MCV (test code = MCV) 104.7 80.0-98.0 [facility] HospitalGsouycoBQNDOUUMNI7416-89-48 10:18:00 Test Item Value Reference Range Interpretation Comments Hct (test code = Hct) 35.5 36.0-48.0 [facility] HospitalAfcaatvMQBZOJOOCF2954-87-52 10:18:00 Test Item Value Reference Range Interpretation Comments Hgb (test code = Hgb) 12.0 12.0-16.0 [facility] HospitalHzzkhtsNIIPOFEBWU5102-81-04 10:18:00 Test Item Value Reference Range Interpretation Comments WBC (test code = WBC) 8.0 3.7-10.4 [facility] HospitalDdzmstdZKSCIXZGIF9991-55-34 10:18:00 Test Item Value Reference Range Interpretation Comments RBC (test code = RBC) 3.39 4.20-5.40 [facility] HospitalNbnucdzOPGHTLMUSE6535-04-79 10:18:00 Test Item Value Reference Range Interpretation Comments Platelet (test code = Platelet) 128 133-450 [facility] HospitalZpzrrovVFKZZYCFBQ4721-85-05 10:18:00 Test Item Value Reference Range Interpretation Comments MPV (test code = MPV) 9.5 7.4-10.4 [facility] HospitalPuvmareHBDWQJWROB6142-87-48 10:18:00 Test Item Value Reference Range Interpretation Comments RDW (test code = RDW) 12.7 11.5-14.5 [facility] HospitalLsganegQAQUCIHPTQ4848-62-46 10:18:00 Test Item Value Reference Range Interpretation Comments MCH (test code = MCH) 35.5 pg 27.0-31.0 [facility]FaiodogHHWQFE1865-[facility] 10:18:00 Test Item Value Reference Range Interpretation Comments HDL (test code = HDL) 77 [facility] HospitalFfoykctKZHKNX4391-96-65 10:18:00 Test Item Value Reference Range Interpretation Comments Chol (test code = Chol) 172 [facility] HospitalDsfxgclGMMTRI4721-08-16 10:18:00 Test Item Value Reference Range Interpretation Comments Trig (test code = Trig) 67 [facility]DyfhqjjSTZDRV3156-36-38 10:18:00 Test Item Value Reference Range Interpretation Comments LDL (Calculated) (test code = LDL 82 (Calculated)) [facility] HospitalDknjqadOMBXIA3081-54-19 10:18:00 Test Item Value Reference Range Interpretation Comments CHD Risk (test code = CHD Risk) 2.23 3.90-5.80 [facility] HospitalJgletpqRGXHDP7431-75-31 10:18:00 Test Item Value Reference Range Interpretation Comments VLDL (test code = VLDL) 13 [facility] HospitalCHEM UEWZL6711-37-35 10:18:00 Test Item Value Reference Range Interpretation Comments Lipase Lvl (test code = Lipase Lvl) 660 73-393 [facility]kinRldihieAZPRILGEHGZH6369-64-36 10:18:00 Test Item Value Reference Range Interpretation Comments Sodium Lvl (test code = Sodium Lvl) 134 135-145 [facility] CenterLrmgwsxESYSVZLYTKXG7546-70-30 10:18:00 Test Item Value Reference Range Interpretation Comments Potassium Lvl (test code = Potassium 3.5 3.5-5.1 Lvl) [facility] CenterCzxnyxfJQYRVOSKIQDA5221-23-51 10:18:00 Test Item Value Reference Range Interpretation Comments Calcium Lvl (test code = Calcium Lvl) 7.8 8.5-10.5 [facility] CenterQmhkuyqBJCQSPOECSYO8052-12-67 10:18:00 Test Item Value Reference Range Interpretation Comments Chloride Lvl (test code = Chloride Lvl) 98 95-109 [facility] CenterGzavnukOTRBJAJYQUQG5996-63-90 10:18:00 Test Item Value Reference Range Interpretation Comments eGFR (test code = eGFR) 72 [facility] CenterMrrfntnYTNEHHZAATHN2817-61-83 10:18:00 Test Item Value Reference Range Interpretation Comments Globulin (test code = Globulin) 3.0 2.0-4.0 [facility] CenterTxtwuvpUAGFPEMOYVVW0410-08-78 10:18:00 Test Item Value Reference Range Interpretation Comments A/G Ratio (test code = A/G Ratio) 1.0 0.7-1.6 [facility] CenterAntawilZPQQXFYZSUIW8741-69-96 10:18:00 Test Item Value Reference Range Interpretation Comments AST (test code = AST) 45 See_Comment [Auto mated message] The system which ge nerated this result transmit rafael reference range : <=37. The reference range was not used to interpr et this result as josi l/abnormal. [facility] CenterJddhediCFCLOBZXYTZW8628-39-15 10:18:00 Test Item Value Reference Range Interpretation Comments ALT (test code = ALT) 57 See_Comment [Auto mated message] The system which ge nerated this result transmit rafael reference range : <=65. The reference range was not used to interpr et this result as josi l/abnormal. [facility] CenterUxabafyGHMYEOOLRFMI6829-70-85 10:18:00 Test Item Value Reference Range Interpretation Comments Alk Phos (test code = Alk Phos) 49 39-136 [facility] CenterZzwpdmgWQRHKRWUZXSS0955-03-99 10:18:00 Test Item Value Reference Range Interpretation Comments Bili Total (test code = Bili Total) 0.7 0.2-1.3 [facility] CenterUohcyzlMBQYXJIUXSWD3671-53-63 10:18:00 Test Item Value Reference Range Interpretation Comments Glucose Lvl (test code = Glucose Lvl) 145 70-99 [facility] CenterOefclbsUIKUCIXRJGOY7824-79-14 10:18:00 Test Item Value Reference Range Interpretation Comments Creatinine Lvl (test code = Creatinine 0.9 0.5-1.4 Lvl) [facility] CenterKgrpogpUWHPRGWRKTWY8267-74-83 10:18:00 Test Item Value Reference Range Interpretation Comments BUN (test code = BUN) 12 01-22 [facility] CenterTxuhdocPGZOOQVJSYZH8935-31-32 10:18:00 Test Item Value Reference Range Interpretation Comments B/C Ratio (test code = B/C Ratio) 13 - [facility] CenterHztppitQYZYUFMJYXKW5648-60-33 10:18:00 Test Item Value Reference Range Interpretation Comments CO2 (test code = CO2) 30 [facility] CenterLafedeuQJFRVOQTRZRN8014-54-94 10:18:00 Test Item Value Reference Range Interpretation Comments Total Protein (test code = Total 6.1 6.4-8.4 Protein) [facility] CenterGhaieubQDPXTSJJSEYY5920-12-82 10:18:00 Test Item Value Reference Range Interpretation Comments AGAP (test code = AGAP) 9.5 10.0-20.0 [facility] CenterYxlkemnPVPUXRLFOLQC9517-99-24 10:18:00 Test Item Value Reference Range Interpretation Comments Albumin Lvl (test code = Albumin Lvl) 3.1 3.5-5.0 [facility] HospitalMkjcghoTVSFSPKYEP1405-28-68 10:18:00 Test Item Value Reference Range Interpretation Comments Eosinophils # (test code 0.2 See_Comment [A utomated message] The = Eosinophils #) system whic h generated this result tra nsmitted reference range : <=0.5. The reference r genesis was not used to int erpret this result as normal/abnormal . [facility] HospitalMmmfopyLCMGZHJMBC8821-72-83 10:18:00 Test Item Value Reference Range Interpretation Comments Macrocyte (test code = 2+ *ABN*(10/31/14 Macrocyte) 5:18 AM) [facility] HospitalMlfzfweVAQOPTPWLW5778-53-27 10:18:00 Test Item Value Reference Range Interpretation Comments Monocytes # (test code 0.5 See_Comment [Aut omated message] The = Monocytes #) system which generated this result tra nsmitted reference range : <=0.8. The reference r genesis was not used to int erpret this result as normal/abnormal . [facility] HospitalJqubfxjIBUYZNVJFP8158-92-22 10:18:00 Test Item Value Reference Range Interpretation Comments Eosinophils (test code = 2.3 See_Comment [A utomated message] The Eosinophils) system which ge nerated this result tra nsmitted reference range : <=4.0. The reference r genesis was not used to int erpret this result as normal/abnormal . [facility] HospitalPmysqljPNYDJNQMQZ3585-76-24 10:18:00 Test Item Value Reference Range Interpretation Comments Lymphocytes # (test code = Lymphocytes 1.2 1.0-5.5 #) [facility] HospitalPqrusdbELLYWAJAOU3201-13-08 10:18:00 Test Item Value Reference Range Interpretation Comments Basophils (test code = 0.3 See_Comment [Aut omated message] The Basophils) system which ge nerated this result tra nsmitted reference range : <=1.0. The reference r genesis was not used to int erpret this result as normal/abnormal . [facility] HospitalKwcyrkqGNGHMREQVH4162-97-01 10:18:00 Test Item Value Reference Range Interpretation Comments Segs-Bands # (test code = Segs-Bands #) 6.1 1.5-8.1 [facility] HospitalYmnpkghDVSEAMUZLN6181-36-21 10:18:00 Test Item Value Reference Range Interpretation Comments Monocytes (test code = Monocytes) 6.1 2.0-12.0 [facility] HospitalHmxvfxjJKCVUDKMPN4812-56-46 10:18:00 Test Item Value Reference Range Interpretation Comments Lymphocytes (test code = Lymphocytes) 15.1 20.0-40.0 [facility] HospitalDjxgqfyLQJFTVIPEN0342-05-69 10:18:00 Test Item Value Reference Range Interpretation Comments Segs (test code = Segs) 76.2 45.0-75.0 [facility] HospitalKlohzryVOBOCWFJEO1332-86-03 10:18:00 Test Item Value Reference Range Interpretation Comments MCHC (test code = MCHC) 33.9 32.0-36.0 [facility] HospitalXmjdabiEMRSHWQBAN3623-72-84 10:18:00 Test Item Value Reference Range Interpretation Comments MCV (test code = MCV) 104.7 80.0-98.0 [facility] HospitalVemlybsKQUQYCRNGV1766-63-39 10:18:00 Test Item Value Reference Range Interpretation Comments Hct (test code = Hct) 35.5 36.0-48.0 [facility] HospitalBacdecvSAIQHFLJWB6187-44-62 10:18:00 Test Item Value Reference Range Interpretation Comments Hgb (test code = Hgb) 12.0 12.0-16.0 [facility] HospitalHxzcjcwCOJJXJTCLS8992-47-47 10:18:00 Test Item Value Reference Range Interpretation Comments WBC (test code = WBC) 8.0 3.7-10.4 [facility] HospitalQeinfseQPDPVERBAC4057-48-45 10:18:00 Test Item Value Reference Range Interpretation Comments RBC (test code = RBC) 3.39 4.20-5.40 [facility] HospitalDdhekiqBKCIJSKABJ3133-48-09 10:18:00 Test Item Value Reference Range Interpretation Comments Platelet (test code = Platelet) 128 133-450 [facility] HospitalOtjbeiuMVUCOYPHPG5020-43-66 10:18:00 Test Item Value Reference Range Interpretation Comments MPV (test code = MPV) 9.5 7.4-10.4 [facility] HospitalYqdfdibBNZIJEZNQD1588-96-90 10:18:00 Test Item Value Reference Range Interpretation Comments RDW (test code = RDW) 12.7 11.5-14.5 [facility] HospitalUsxzmgrWUGRAJGNLZ8184-59-53 10:18:00 Test Item Value Reference Range Interpretation Comments MCH (test code = MCH) 35.5 pg 27.0-31.0 [facility] HospitalFipevywHEGKKC9210-29-28 10:18:00 Test Item Value Reference Range Interpretation Comments HDL (test code = HDL) 77 [facility] HospitalYnptydlWEZVNK3225-67-98 10:18:00 Test Item Value Reference Range Interpretation Comments Chol (test code = Chol) 172 [facility] HospitalEjwdlkgDNHNVX5400-11-10 10:18:00 Test Item Value Reference Range Interpretation Comments Trig (test code = Trig) 67 [facility] HospitalNpzuzgwMEZWVK3218-51-65 10:18:00 Test Item Value Reference Range Interpretation Comments LDL (Calculated) (test code = LDL 82 (Calculated)) [facility] HospitalJaypqdcEJTFNQ1356-47-64 10:18:00 Test Item Value Reference Range Interpretation Comments CHD Risk (test code = CHD Risk) 2.23 3.90-5.80 [facility] HospitalKgfxscrWLIHHA3134-60-27 10:18:00 Test Item Value Reference Range Interpretation Comments VLDL (test code = VLDL) 13 [facility] HospitalCHEM OUYQB1145-55-40 10:18:00 Test Item Value Reference Range Interpretation Comments Lipase Lvl (test code = Lipase Lvl) 660 [address] [facility]NmjfsbjVSFXBUWYPCEQ3934-93-97 10:18:00 Test Item Value Reference Range Interpretation Comments Sodium Lvl (test code = Sodium Lvl) 134 135-145 [facility] CenterAethupaJIGAMCGGYBRY5549-10-78 10:18:00 Test Item Value Reference Range Interpretation Comments Potassium Lvl (test code = Potassium 3.5 3.5-5.1 Lvl) [facility] CenterRswayahLOXPOHKOBKYA6668-24-14 10:18:00 Test Item Value Reference Range Interpretation Comments Calcium Lvl (test code = Calcium Lvl) 7.8 8.5-10.5 [facility] CenterVprichvSZQSKUEIYFKN4519-87-37 10:18:00 Test Item Value Reference Range Interpretation Comments Chloride Lvl (test code = Chloride Lvl) 98 95-109 [facility] CenterRcnfkfvDESBPNFRYHJA0647-90-16 10:18:00 Test Item Value Reference Range Interpretation Comments eGFR (test code = eGFR) 72 [facility] CenterUrmzjacCQVJIWXHGBRG1371-45-54 10:18:00 Test Item Value Reference Range Interpretation Comments Globulin (test code = Globulin) 3.0 2.0-4.0 [facility] CenterAculwguUWSTYTUQBCGA2892-05-00 10:18:00 Test Item Value Reference Range Interpretation Comments A/G Ratio (test code = A/G Ratio) 1.0 0.7-1.6 [facility] CenterZrbuaayUEIGJDZBXRIF2412-81-37 10:18:00 Test Item Value Reference Range Interpretation Comments AST (test code = AST) 45 See_Comment [Auto mated message] The system which ge nerated this result transmit rafael reference range : <=37. The reference range was not used to interpr et this result as josi l/abnormal. [facility] CenterVduqmshHVMRSGLMNLIS5625-07-49 10:18:00 Test Item Value Reference Range Interpretation Comments ALT (test code = ALT) 57 See_Comment [Auto mated message] The system which ge nerated this result transmit rafael reference range : <=65. The reference range was not used to interpr et this result as josi l/abnormal. [facility] CenterEnlqshlXMDPWBTSIWBZ0874-90-74 10:18:00 Test Item Value Reference Range Interpretation Comments Alk Phos (test code = Alk Phos) 49 39-136 [facility] CenterFklmlevFCWMFQJGTBKA3342-38-19 10:18:00 Test Item Value Reference Range Interpretation Comments Bili Total (test code = Bili Total) 0.7 0.2-1.3 [facility] CenterIrqjrmwFBLAHSBXDFAY9998-91-42 10:18:00 Test Item Value Reference Range Interpretation Comments Glucose Lvl (test code = Glucose Lvl) 145 70-99 [facility] CenterIkiveqvWHBIWFCJSHPL4219-43-20 10:18:00 Test Item Value Reference Range Interpretation Comments Creatinine Lvl (test code = Creatinine 0.9 0.5-1.4 Lvl) [facility] CenterVlpqktcVJJKORVYQERH9033-23-15 10:18:00 Test Item Value Reference Range Interpretation Comments BUN (test code = BUN) 12 7-22 [facility]2015-04-29 12:48:00 Test Item Value Reference Range Interpretation Comments Lipase Lvl (test code = Lipase Lvl) 1352 73-393 [facility]2015-04-29 12:48:00 Test Item Value Reference Range Interpretation Comments Alk Phos (test code = Alk Phos) 50 39-136 [facility]2015-04-29 12:48:00 Test Item Value Reference Range Interpretation Comments Bili Total (test code = Bili Total) 1.0 0.2-1.3 [facility]2015-04-29 12:48:00 Test Item Value Reference Range Interpretation Comments Albumin Lvl (test code = Albumin Lvl) 3.6 3.5-5.0 [facility]2015-04-29 12:48:00 Test Item Value Reference Range Interpretation Comments CO2 (test code = CO2) 33 24-32 [facility]2015-04-29 12:48:00 Test Item Value Reference Range Interpretation Comments Total Protein (test code = Total 6.4 6.4-8.4 Protein) [facility]2015-04-29 12:48:00 Test Item Value Reference Range Interpretation Comments ALT (test code = ALT) 84 See_Comment [Auto mated message] The system which ge nerated this result transmit rafael reference range : <=65. The reference range was not used to interpr et this result as josi l/abnormal. [facility]2015-04-29 12:48:00 Test Item Value Reference Range Interpretation Comments AST (test code = AST) 92 See_Comment [Auto mated message] The system which ge nerated this result transmit rafael reference range : <=37. The reference range was not used to interpr et this result as josi l/abnormal. [facility]2015-04-29 12:48:00 Test Item Value Reference Range Interpretation Comments Glucose Lvl (test code = Glucose Lvl) 105 70-99 [facility]2015-04-29 12:48:00 Test Item Value Reference Range Interpretation Comments BUN (test code = BUN) 30 7-22 [facility]2015-04-29 12:48:00 Test Item Value Reference Range Interpretation Comments eGFR (test code = eGFR) 46 [facility]2015-04-29 12:48:00 Test Item Value Reference Range Interpretation Comments Potassium Lvl (test code = Potassium 3.1 3.5-5.1 Lvl) [facility]2015-04-29 12:48:00 Test Item Value Reference Range Interpretation Comments Calcium Lvl (test code = Calcium Lvl) 8.3 8.5-10.5 [facility]2015-04-29 12:48:00 Test Item Value Reference Range Interpretation Comments Chloride Lvl (test code = Chloride Lvl) 96 95-109 [facility]2015-04-29 12:48:00 Test Item Value Reference Range Interpretation Comments Sodium Lvl (test code = Sodium Lvl) 136 135-145 [facility]2015-04-29 12:48:00 Test Item Value Reference Range Interpretation Comments Creatinine Lvl (test code = Creatinine 1.3 0.5-1.4 Lvl) [facility]2015-04-29 12:48:00 Test Item Value Reference Range Interpretation Comments Globulin (test code = Globulin) 2.8 2.0-4.0 [facility]2015-04-29 12:48:00 Test Item Value Reference Range Interpretation Comments A/G Ratio (test code = A/G Ratio) 1.3 0.7-1.6 [facility]2015-04-29 12:48:00 Test Item Value Reference Range Interpretation Comments B/C Ratio (test code = B/C Ratio) 23 6-25 [facility]2015-04-29 12:48:00 Test Item Value Reference Range Interpretation Comments AGAP (test code = AGAP) 10.1 10.0-20.0 [facility] HospitalSpxjqeyAHNXHCZLTH0634-82-94 12:48:00 Test Item Value Reference Range Interpretation Comments Macrocyte (test code = 1+ *ABN*(10/30/14 Macrocyte) 7:48 AM) [facility] HospitalSybtgffNYSTIQBZDO8861-16-10 12:48:00 Test Item Value Reference Range Interpretation Comments Segs-Bands # (test code = Segs-Bands #) 5.5 1.5-8.1 [facility] HospitalOgvknwxIYRHZYBVHE5350-90-12 12:48:00 Test Item Value Reference Range Interpretation Comments Basophils (test code = 0.7 See_Comment [Aut omated message] The Basophils) system which ge nerated this result tra nsmitted reference range : <=1.0. The reference r genesis was not used to int erpret this result as normal/abnormal . [facility] HospitalAqcztuoEDGZKRWFUO6081-20-95 12:48:00 Test Item Value Reference Range Interpretation Comments Eosinophils (test code = 1.4 See_Comment [A utomated message] The Eosinophils) system which ge nerated this result tra nsmitted reference range : <=4.0. The reference r genesis was not used to int erpret this result as normal/abnormal . [facility] HospitalAyjatytVLMNJKVSFV5108-17-34 12:48:00 Test Item Value Reference Range Interpretation Comments Basophils # (test code 0.1 See_Comment [Aut omated message] The = Basophils #) system which generated this result tra nsmitted reference range : <=0.2. The reference r genesis was not used to int erpret this result as normal/abnormal . [facility] HospitalBfhiuntAFKKSJTMSN6463-29-46 12:48:00 Test Item Value Reference Range Interpretation Comments Eosinophils # (test code 0.1 See_Comment [A utomated message] The = Eosinophils #) system whic h generated this result tra nsmitted reference range : <=0.5. The reference r genesis was not used to int erpret this result as normal/abnormal . [facility] HospitalLbmqpraHTQGJKMSLP7788-30-71 12:48:00 Test Item Value Reference Range Interpretation Comments Lymphocytes # (test code = Lymphocytes 1.6 1.0-5.5 #) [facility] HospitalLhgdofqFUDICBYQYT4191-31-43 12:48:00 Test Item Value Reference Range Interpretation Comments Monocytes # (test code 0.5 See_Comment [Aut omated message] The = Monocytes #) system which generated this result tra nsmitted reference range : <=0.8. The reference r genesis was not used to int erpret this result as normal/abnormal . [facility] HospitalHeeynjeUJRDSABEUA7150-57-96 12:48:00 Test Item Value Reference Range Interpretation Comments Monocytes (test code = Monocytes) 6.7 2.0-12.0 [facility] HospitalSkdsrhlXMHPBFHFNU0001-35-88 12:48:00 Test Item Value Reference Range Interpretation Comments Lymphocytes (test code = Lymphocytes) 20.3 20.0-40.0 [facility] HospitalVhtwizkFMDUKJOBEJ4145-12-51 12:48:00 Test Item Value Reference Range Interpretation Comments Segs (test code = Segs) 70.9 45.0-75.0 [facility] HospitalFrgkwewBGKYZPMVPF5325-38-42 12:48:00 Test Item Value Reference Range Interpretation Comments RDW (test code = RDW) 12.9 11.5-14.5 [facility] HospitalOehmqmzIIFBMVMGSA7297-97-82 12:48:00 Test Item Value Reference Range Interpretation Comments Hgb (test code = Hgb) 12.8 12.0-16.0 [facility] HospitalKgpeiruATDATEWKHV9917-03-72 12:48:00 Test Item Value Reference Range Interpretation Comments RBC (test code = RBC) 3.56 4.20-5.40 [facility] HospitalUtsdvzqBYHOWLUTQN3423-61-70 12:48:00 Test Item Value Reference Range Interpretation Comments MPV (test code = MPV) 8.3 7.4-10.4 [facility] HospitalRbteciiRSJVFULURI7432-39-19 12:48:00 Test Item Value Reference Range Interpretation Comments Platelet (test code = Platelet) 163 133-450 [facility] HospitalScotxzlLPDJFCQBEC7094-93-83 12:48:00 Test Item Value Reference Range Interpretation Comments MCV (test code = MCV) 103.3 80.0-98.0 [facility] HospitalHnopxjnBXJBAWJMXP9613-12-82 12:48:00 Test Item Value Reference Range Interpretation Comments Hct (test code = Hct) 36.8 36.0-48.0 [facility] HospitalOmcuphlHBQJIBBWCS5274-18-72 12:48:00 Test Item Value Reference Range Interpretation Comments MCHC (test code = MCHC) 34.9 32.0-36.0 [facility] HospitalAyavhnmQIBMMNJKEG4139-61-96 12:48:00 Test Item Value Reference Range Interpretation Comments MCH (test code = MCH) 36.1 pg 27.0-31.0 [facility]amABPVBSAPQG9769-46-45 12:48:00 Test Item Value Reference Range Interpretation Comments WBC (test code = WBC) 7.8 3.7-10.4 [facility]2015-04-29 12:48:00 Test Item Value Reference Range Interpretation Comments Lipase Lvl (test code = Lipase Lvl) 1352 73-393 [facility]2015-04-29 12:48:00 Test Item Value Reference Range Interpretation Comments Alk Phos (test code = Alk Phos) 50 39-136 [facility]2015-04-29 12:48:00 Test Item Value Reference Range Interpretation Comments Bili Total (test code = Bili Total) 1.0 0.2-1.3 [facility]2015-04-29 12:48:00 Test Item Value Reference Range Interpretation Comments Albumin Lvl (test code = Albumin Lvl) 3.6 3.5-5.0 [facility]2015-04-29 12:48:00 Test Item Value Reference Range Interpretation Comments CO2 (test code = CO2) 33 24-32 [facility]2015-04-29 12:48:00 Test Item Value Reference Range Interpretation Comments Total Protein (test code = Total 6.4 6.4-8.4 Protein) [facility] [facility] 12:48:00 Test Item Value Reference Range Interpretation Comments ALT (test code = ALT) 84 See_Comment [Auto mated message] The system which ge nerated this result transmit rafael reference range : <=65. The reference range was not used to interpr et this result as josi l/abnormal. [facility]2015-04-29 12:48:00 Test Item Value Reference Range Interpretation Comments AST (test code = AST) 92 See_Comment [Auto mated message] The system which ge nerated this result transmit rafael reference range : <=37. The reference range was not used to interpr et this result as josi l/abnormal. [facility]2015-04-29 12:48:00 Test Item Value Reference Range Interpretation Comments Glucose Lvl (test code = Glucose Lvl) 105 70-99 [place] 086295-04-29 12:48:00 Test Item Value Reference Range Interpretation Comments BUN (test code = BUN) 30 7-22 [facility]2015-04-29 12:48:00 Test Item Value Reference Range Interpretation Comments eGFR (test code = eGFR) 46 [facility]2015-04-29 12:48:00 Test Item Value Reference Range Interpretation Comments Potassium Lvl (test code = Potassium 3.1 3.5-5.1 Lvl) [facility]2015-04-29 12:48:00 Test Item Value Reference Range Interpretation Comments Calcium Lvl (test code = Calcium Lvl) 8.3 8.5-10.5 [facility]2015-04-29 12:48:00 Test Item Value Reference Range Interpretation Comments Chloride Lvl (test code = Chloride Lvl) 96 95-109 [facility]2015-04-29 12:48:00 Test Item Value Reference Range Interpretation Comments Sodium Lvl (test code = Sodium Lvl) 136 135-145 [facility]2015-04-29 12:48:00 Test Item Value Reference Range Interpretation Comments Creatinine Lvl (test code = Creatinine 1.3 0.5-1.4 Lvl) [facility]2015-04-29 12:48:00 Test Item Value Reference Range Interpretation Comments Globulin (test code = Globulin) 2.8 2.0-4.0 [facility]2015-04-29 12:48:00 Test Item Value Reference Range Interpretation Comments A/G Ratio (test code = A/G Ratio) 1.3 0.7-1.6 [facility]2015-04-29 12:48:00 Test Item Value Reference Range Interpretation Comments B/C Ratio (test code = B/C Ratio) 23 6-25 [facility]2015-04-29 12:48:00 Test Item Value Reference Range Interpretation Comments AGAP (test code = AGAP) 10.1 10.0-20.0 [facility]AV[facility]GGFJJ2774[facility] 12:48:00 Test Item Value Reference Range Interpretation Comments Macrocyte (test code = 1+ *ABN*(10/30/14 Macrocyte) 7:48 AM) [facility]CqqiuyuPAALWLZIHA1649-45-98 12:48:00 Test Item Value Reference Range Interpretation Comments Segs-Bands # (test code = Segs-Bands #) 5.5 1.5-8.1 [facility] HospitalFlojoimHPLWLLTTCY5187-49-52 12:48:00 Test Item Value Reference Range Interpretation Comments Basophils (test code = 0.7 See_Comment [Aut omated message] The Basophils) system which ge nerated this result tra nsmitted reference range : <=1.0. The reference r genesis was not used to int erpret this result as normal/abnormal . [facility]MrxzjqdHNFUMMVSOK3745-41-04 12:48:00 Test Item Value Reference Range Interpretation Comments Eosinophils (test code = 1.4 See_Comment [A utomated message] The Eosinophils) system which ge nerated this result tra nsmitted reference range : <=4.0. The reference r genesis was not used to int erpret this result as normal/abnormal . [facility] HospitalRyhdmexCJGNORHXDK5735-24-83 12:48:00 Test Item Value Reference Range Interpretation Comments Basophils # (test code 0.1 See_Comment [Aut omated message] The = Basophils #) system which generated this result tra nsmitted reference range : <=0.2. The reference r genesis was not used to int erpret this result as normal/abnormal . [facility] HospitalVjxavnaTGNJPEPSOW1046-22-65 12:48:00 Test Item Value Reference Range Interpretation Comments Eosinophils # (test code 0.1 See_Comment [A utomated message] The = Eosinophils #) system whic h generated this result tra nsmitted reference range : <=0.5. The reference r genesis was not used to int erpret this result as normal/abnormal . [facility] HospitalVgrjzwuLBXYOKKYBH6106-42-06 12:48:00 Test Item Value Reference Range Interpretation Comments Lymphocytes # (test code = Lymphocytes 1.6 1.0-5.5 #) [facility]NdngryqVROVCYTCRD1804-04-01 12:48:00 Test Item Value Reference Range Interpretation Comments Monocytes # (test code 0.5 See_Comment [Aut omated message] The = Monocytes #) system which generated this result tra nsmitted reference range : <=0.8. The reference r genesis was not used to int erpret this result as normal/abnormal . [facility] HospitalPqapnjkFMYUJNMFHQ5475-82-73 12:48:00 Test Item Value Reference Range Interpretation Comments Monocytes (test code = Monocytes) 6.7 2.0-12.0 [facility] HospitalUjghworNKGNIYWAUY6068-58-25 12:48:00 Test Item Value Reference Range Interpretation Comments Lymphocytes (test code = Lymphocytes) 20.3 20.0-40.0 [facility] HospitalKtqlgygGQVTJMQFHK0727-92-26 12:48:00 Test Item Value Reference Range Interpretation Comments Segs (test code = Segs) 70.9 45.0-75.0 [facility] HospitalNhuetwhJLVHUTBGSC5663-31-44 12:48:00 Test Item Value Reference Range Interpretation Comments RDW (test code = RDW) 12.9 11.5-14.5 [facility] HospitalKrshhhcULGPRBGJCZ6119-29-11 12:48:00 Test Item Value Reference Range Interpretation Comments Hgb (test code = Hgb) 12.8 12.0-16.0 [facility] HospitalOovavnbOGKWLYNODZ3334-62-07 12:48:00 Test Item Value Reference Range Interpretation Comments RBC (test code = RBC) 3.56 4.20-5.40 [facility] HospitalOonlwjaEURAJCKGIK5545-04-16 12:48:00 Test Item Value Reference Range Interpretation Comments MPV (test code = MPV) 8.3 7.4-10.4 [facility] HospitalLdfazqtUHPHRUSBFJ2558-94-81 12:48:00 Test Item Value Reference Range Interpretation Comments Platelet (test code = Platelet) 163 133-450 [facility] HospitalWchxiugXTUGZFHLIF5089-31-20 12:48:00 Test Item Value Reference Range Interpretation Comments MCV (test code = MCV) 103.3 80.0-98.0 [facility] HospitalFcusfzsPLDIDNLOMJ8000-03-94 12:48:00 Test Item Value Reference Range Interpretation Comments Hct (test code = Hct) 36.8 36.0-48.0 [facility] HospitalAicmjiwDGQZIKKUXI6323-84-03 12:48:00 Test Item Value Reference Range Interpretation Comments MCHC (test code = MCHC) 34.9 32.0-36.0 [facility] HospitalIslnjkvSOHWDQQLRQ6801-28-78 12:48:00 Test Item Value Reference Range Interpretation Comments MCH (test code = MCH) 36.1 pg 27.0-31.0 [facility] HospitalKommxrrHGMWBNVSSF5291-20-56 12:48:00 Test Item Value Reference Range Interpretation Comments WBC (test code = WBC) 7.8 3.7-10.4 [facility]2015-04-29 12:48:00 Test Item Value Reference Range Interpretation Comments Lipase Lvl (test code = Lipase Lvl) 1352 73-393 [facility]2015-04-29 12:48:00 Test Item Value Reference Range Interpretation Comments Alk Phos (test code = Alk Phos) 50 39-136 [facility]2015-04-29 12:48:00 Test Item Value Reference Range Interpretation Comments Bili Total (test code = Bili Total) 1.0 0.2-1.3 [facility]2015-04-29 12:48:00 Test Item Value Reference Range Interpretation Comments Albumin Lvl (test code = Albumin Lvl) 3.6 3.5-5.0 [facility]2015-04-29 12:48:00 Test Item Value Reference Range Interpretation Comments CO2 (test code = CO2) 33 24-32 [facility]2015-04-29 12:48:00 Test Item Value Reference Range Interpretation Comments Total Protein (test code = Total 6.4 6.4-8.4 Protein) [facility]2015-04-29 12:48:00 Test Item Value Reference Range Interpretation Comments ALT (test code = ALT) 84 See_Comment [Auto mated message] The system which ge nerated this result transmit rafael reference range : <=65. The reference range was not used to interpr et this result as josi l/abnormal. [facility]2015-04-29 12:48:00 Test Item Value Reference Range Interpretation Comments AST (test code = AST) 92 See_Comment [Auto mated message] The system which ge nerated this result transmit rafael reference range : <=37. The reference range was not used to interpr et this result as josi l/abnormal. [facility]2015-04-29 12:48:00 Test Item Value Reference Range Interpretation Comments Glucose Lvl (test code = Glucose Lvl) 105 70-99 [facility]2015-04-29 12:48:00 Test Item Value Reference Range Interpretation Comments BUN (test code = BUN) 30 7-22 [facility]2015-04-29 12:48:00 Test Item Value Reference Range Interpretation Comments eGFR (test code = eGFR) 46 [facility]2015-04-29 12:48:00 Test Item Value Reference Range Interpretation Comments Potassium Lvl (test code = Potassium 3.1 3.5-5.1 Lvl) [facility]2015-04-29 12:48:00 Test Item Value Reference Range Interpretation Comments Calcium Lvl (test code = Calcium Lvl) 8.3 8.5-10.5 [facility]2015-04-29 12:48:00 Test Item Value Reference Range Interpretation Comments Chloride Lvl (test code = Chloride Lvl) 96 95-109 [facility]2015-04-29 12:48:00 Test Item Value Reference Range Interpretation Comments Sodium Lvl (test code = Sodium Lvl) 136 135-145 [facility]2015-04-29 12:48:00 Test Item Value Reference Range Interpretation Comments Creatinine Lvl (test code = Creatinine 1.3 0.5-1.4 Lvl) [facility]2015-04-29 12:48:00 Test Item Value Reference Range Interpretation Comments Globulin (test code = Globulin) 2.8 2.0-4.0 [facility]2015-04-29 12:48:00 Test Item Value Reference Range Interpretation Comments A/G Ratio (test code = A/G Ratio) 1.3 0.7-1.6 [facility]2015-04-29 12:48:00 Test Item Value Reference Range Interpretation Comments B/C Ratio (test code = B/C Ratio) 23 6-25 [facility]2015-04-29 12:48:00 Test Item Value Reference Range Interpretation Comments AGAP (test code = AGAP) 10.1 10.0-20.0 [facility] HospitalXbmesjgAFZTWQQWBR1140-34-75 12:48:00 Test Item Value Reference Range Interpretation Comments Macrocyte (test code = 1+ *ABN*(10/30/14 Macrocyte) 7:48 AM) [facility] HospitalGueunitIGXYDHOWDT9860-75-32 12:48:00 Test Item Value Reference Range Interpretation Comments Segs-Bands # (test code = Segs-Bands #) 5.5 1.5-8.1 [facility] HospitalPfoibecISBNEURUBZ6488-08-16 12:48:00 Test Item Value Reference Range Interpretation Comments Basophils (test code = 0.7 See_Comment [Aut omated message] The Basophils) system which ge nerated this result tra nsmitted reference range : <=1.0. The reference r genesis was not used to int erpret this result as normal/abnormal . [facility] HospitalRiifpdySERDAFPABN4557-95-64 12:48:00 Test Item Value Reference Range Interpretation Comments Eosinophils (test code = 1.4 See_Comment [A utomated message] The Eosinophils) system which ge nerated this result tra nsmitted reference range : <=4.0. The reference r genesis was not used to int erpret this result as normal/abnormal . [facility] HospitalJqugemkJKLTDZHHXD4223-99-18 12:48:00 Test Item Value Reference Range Interpretation Comments Basophils # (test code 0.1 See_Comment [Aut omated message] The = Basophils #) system which generated this result tra nsmitted reference range : <=0.2. The reference r genesis was not used to int erpret this result as normal/abnormal . [facility] HospitalTfsqfxxWWWGIUIPYE0462-73-34 12:48:00 Test Item Value Reference Range Interpretation Comments Eosinophils # (test code 0.1 See_Comment [A utomated message] The = Eosinophils #) system whic h generated this result tra nsmitted reference range : <=0.5. The reference r genesis was not used to int erpret this result as normal/abnormal . [facility] HospitalXuzexsiBLILXFEYTS6293-19-00 12:48:00 Test Item Value Reference Range Interpretation Comments Lymphocytes # (test code = Lymphocytes 1.6 1.0-5.5 #) [facility] HospitalSrsecgiCAIJSHZYYO8587-43-11 12:48:00 Test Item Value Reference Range Interpretation Comments Monocytes # (test code 0.5 See_Comment [Aut omated message] The = Monocytes #) system which generated this result tra nsmitted reference range : <=0.8. The reference r genesis was not used to int erpret this result as normal/abnormal . [facility] HospitalRmqqnsyOXSVOQCDIZ5106-16-02 12:48:00 Test Item Value Reference Range Interpretation Comments Monocytes (test code = Monocytes) 6.7 2.0-12.0 [facility] HospitalSxrmggdAIYOIJVACI5461-61-94 12:48:00 Test Item Value Reference Range Interpretation Comments Lymphocytes (test code = Lymphocytes) 20.3 20.0-40.0 [facility] HospitalBnprpdzLCAYGDVMUS6913-26-83 12:48:00 Test Item Value Reference Range Interpretation Comments Segs (test code = Segs) 70.9 45.0-75.0 [facility] HospitalWkiaoztCSEGVMVTQS9204-09-88 12:48:00 Test Item Value Reference Range Interpretation Comments RDW (test code = RDW) 12.9 11.5-14.5 [facility] HospitalRtiujzbFZFDCIFTGC1723-99-23 12:48:00 Test Item Value Reference Range Interpretation Comments Hgb (test code = Hgb) 12.8 12.0-16.0 [facility] HospitalEqhyuvaKWARSNZKEN4308-90-87 12:48:00 Test Item Value Reference Range Interpretation Comments RBC (test code = RBC) 3.56 4.20-5.40 [facility] HospitalKuaxwhoNEQMHSYUHZ7794-84-23 12:48:00 Test Item Value Reference Range Interpretation Comments MPV (test code = MPV) 8.3 7.4-10.4 [facility] HospitalJxymqvyURMXIPPXHC9210-89-15 12:48:00 Test Item Value Reference Range Interpretation Comments Platelet (test code = Platelet) 163 133-450 [facility] HospitalSgccfifWVAHSSXVMS3744-21-09 12:48:00 Test Item Value Reference Range Interpretation Comments MCV (test code = MCV) 103.3 80.0-98.0 [facility] HospitalHwughynNOSQXXXNXK8316-97-52 12:48:00 Test Item Value Reference Range Interpretation Comments Hct (test code = Hct) 36.8 36.0-48.0 [facility] HospitalXprdlqzOJMUENOPOS4353-44-34 12:48:00 Test Item Value Reference Range Interpretation Comments MCHC (test code = MCHC) 34.9 32.0-36.0 [facility] HospitalJbgasggTZRJBVSFBX2512-65-26 12:48:00 Test Item Value Reference Range Interpretation Comments MCH (test code = MCH) 36.1 pg 27.0-31.0 [facility] HospitalHyzlhszOVBNCARHZY7664-49-37 12:48:00 Test Item Value Reference Range Interpretation Comments WBC (test code = WBC) 7.8 3.7-10.4 [facility] FCOBE8049-99-63 12:48:00 Test Item Value Reference Range Interpretation Comments Lipase Lvl (test code = Lipase Lvl) 2909 50-574 [facility] LPHOL3658-94-10 12:48:00 Test Item Value Reference Range Interpretation Comments Alk Phos (test code = Alk Phos) 50 39-136 [facility]2015-04-29 12:48:00 Test Item Value Reference Range Interpretation Comments Bili Total (test code = Bili Total) 1.0 0.2-1.3 [place] 086295-04-29 12:48:00 Test Item Value Reference Range Interpretation Comments Albumin Lvl (test code = Albumin Lvl) 3.6 3.5-5.0 [facility]2015-04-29 12:48:00 Test Item Value Reference Range Interpretation Comments CO2 (test code = CO2) 33 24-32 [facility]2015-04-29 12:48:00 Test Item Value Reference Range Interpretation Comments Total Protein (test code = Total 6.4 6.4-8.4 Protein) [facility]2015-04-29 12:48:00 Test Item Value Reference Range Interpretation Comments ALT (test code = ALT) 84 See_Comment [Auto mated message] The system which ge nerated this result transmit rafael reference range : <=65. The reference range was not used to interpr et this result as josi l/abnormal. [facility]2015-04-29 12:48:00 Test Item Value Reference Range Interpretation Comments AST (test code = AST) 92 See_Comment [Auto mated message] The system which ge nerated this result transmit rafael reference range : <=37. The reference range was not used to interpr et this result as josi l/abnormal. [facility]2015-04-29 12:48:00 Test Item Value Reference Range Interpretation Comments Glucose Lvl (test code = Glucose Lvl) 105 70-99 [facility]2015-04-29 12:48:00 Test Item Value Reference Range Interpretation Comments BUN (test code = BUN) 30 7-22 [facility]2015-04-29 12:48:00 Test Item Value Reference Range Interpretation Comments eGFR (test code = eGFR) 46 [facility]2015-04-29 12:48:00 Test Item Value Reference Range Interpretation Comments Potassium Lvl (test code = Potassium 3.1 3.5-5.1 Lvl) [facility]2015-04-29 12:48:00 Test Item Value Reference Range Interpretation Comments Calcium Lvl (test code = Calcium Lvl) 8.3 8.5-10.5 [facility]2015-04-29 12:48:00 Test Item Value Reference Range Interpretation Comments Chloride Lvl (test code = Chloride Lvl) 96 95-109 [facility]2015-04-29 12:48:00 Test Item Value Reference Range Interpretation Comments Sodium Lvl (test code = Sodium Lvl) 136 135-145 [facility]2015-04-29 12:48:00 Test Item Value Reference Range Interpretation Comments Creatinine Lvl (test code = Creatinine 1.3 0.5-1.4 Lvl) [facility]2015-04-29 12:48:00 Test Item Value Reference Range Interpretation Comments Globulin (test code = Globulin) 2.8 2.0-4.0 [facility]2015-04-29 12:48:00 Test Item Value Reference Range Interpretation Comments A/G Ratio (test code = A/G Ratio) 1.3 0.7-1.6 [facility]2015-04-29 12:48:00 Test Item Value Reference Range Interpretation Comments B/C Ratio (test code = B/C Ratio) 23 6-25 [facility]2015-04-29 12:48:00 Test Item Value Reference Range Interpretation Comments AGAP (test code = AGAP) 10.1 10.0-20.0 [facility] HospitalSsumbdsALDFBXOFJE9392-31-60 12:48:00 Test Item Value Reference Range Interpretation Comments Macrocyte (test code = 1+ *ABN*(10/30/14 Macrocyte) 7:48 AM) [facility] HospitalZdifberYSEDLBMSQP4467-64-11 12:48:00 Test Item Value Reference Range Interpretation Comments Segs-Bands # (test code = Segs-Bands #) 5.5 1.5-8.1 [facility] HospitalXfmsthrZXTNKVSPPX5276-13-84 12:48:00 Test Item Value Reference Range Interpretation Comments Basophils (test code = 0.7 See_Comment [Aut omated message] The Basophils) system which ge nerated this result tra nsmitted reference range : <=1.0. The reference r genesis was not used to int erpret this result as normal/abnormal . [facility] HospitalKhdkotfYLBVGEYRRU3898-54-01 12:48:00 Test Item Value Reference Range Interpretation Comments Eosinophils (test code = 1.4 See_Comment [A utomated message] The Eosinophils) system which ge nerated this result tra nsmitted reference range : <=4.0. The reference r genesis was not used to int erpret this result as normal/abnormal . [facility] HospitalOrroflfQCHVXCVSXG5526-52-45 12:48:00 Test Item Value Reference Range Interpretation Comments Basophils # (test code 0.1 See_Comment [Aut omated message] The = Basophils #) system which generated this result tra nsmitted reference range : <=0.2. The reference r genesis was not used to int erpret this result as normal/abnormal . [facility] HospitalQhschkgSNVLVNQIPR1589-75-33 12:48:00 Test Item Value Reference Range Interpretation Comments Eosinophils # (test code 0.1 See_Comment [A utomated message] The = Eosinophils #) system whic h generated this result tra nsmitted reference range : <=0.5. The reference r genesis was not used to int erpret this result as normal/abnormal . [facility] HospitalKpcvzzvYXWWONRHZG2186-63-79 12:48:00 Test Item Value Reference Range Interpretation Comments Lymphocytes # (test code = Lymphocytes 1.6 1.0-5.5 #) [facility] HospitalXajivkjGOHHEKGBHO6859-47-05 12:48:00 Test Item Value Reference Range Interpretation Comments Monocytes # (test code 0.5 See_Comment [Aut omated message] The = Monocytes #) system which generated this result tra nsmitted reference range : <=0.8. The reference r genesis was not used to int erpret this result as normal/abnormal . [facility] HospitalZxhhtjzJOHIWSWMEK4139-33-08 12:48:00 Test Item Value Reference Range Interpretation Comments Monocytes (test code = Monocytes) 6.7 2.0-12.0 [facility] HospitalHotsvuxOWJSIJYZJG4056-26-12 12:48:00 Test Item Value Reference Range Interpretation Comments Lymphocytes (test code = Lymphocytes) 20.3 20.0-40.0 [facility] HospitalXimkagzBMRXBBHIUC0893-55-10 12:48:00 Test Item Value Reference Range Interpretation Comments Segs (test code = Segs) 70.9 45.0-75.0 [facility] HospitalVscfnkgGVMPRYAQRJ9431-01-65 12:48:00 Test Item Value Reference Range Interpretation Comments RDW (test code = RDW) 12.9 11.5-14.5 [facility] HospitalTpfgwmqJELDISFOSA1031-33-39 12:48:00 Test Item Value Reference Range Interpretation Comments Hgb (test code = Hgb) 12.8 12.0-16.0 [facility] HospitalWklumscNWXRIGZPPR8220-58-44 12:48:00 Test Item Value Reference Range Interpretation Comments RBC (test code = RBC) 3.56 4.20-5.40 [facility] HospitalSwwipgiWJIUTRFXGT5497-38-36 12:48:00 Test Item Value Reference Range Interpretation Comments MPV (test code = MPV) 8.3 7.4-10.4 [facility] HospitalFskrkirXATOVYTFOW0367-75-25 12:48:00 Test Item Value Reference Range Interpretation Comments Platelet (test code = Platelet) 163 133-450 [facility] HospitalQkklnjxTDAGOSTPPL0237-59-18 12:48:00 Test Item Value Reference Range Interpretation Comments MCV (test code = MCV) 103.3 80.0-98.0 [facility] HospitalZsgoagyJZOCPUEHOP0040-25-47 12:48:00 Test Item Value Reference Range Interpretation Comments Hct (test code = Hct) 36.8 36.0-48.0 [facility] HospitalKtxgbzhDAKKLQPVJH8233-13-50 12:48:00 Test Item Value Reference Range Interpretation Comments MCHC (test code = MCHC) 34.9 32.0-36.0 [facility] HospitalTxiipxmAFKCIDDQYN7268-32-47 12:48:00 Test Item Value Reference Range Interpretation Comments MCH (test code = MCH) 36.1 pg 27.0-31.0 [facility] HospitalXtswijaQAPHNGLSOM8243-88-72 12:48:00 Test Item Value Reference Range Interpretation Comments WBC (test code = WBC) 7.8 3.7-10.4 [facility]2015-04-29 12:48:00 Test Item Value Reference Range Interpretation Comments Lipase Lvl (test code = Lipase Lvl) 1352 73393 [facility]2015-04-29 12:48:00 Test Item Value Reference Range Interpretation Comments Alk Phos (test code = Alk Phos) 50 39-136 [facility]2015-04-29 12:48:00 Test Item Value Reference Range Interpretation Comments Bili Total (test code = Bili Total) 1.0 0.2-1.3 [facility]2015-04-29 12:48:00 Test Item Value Reference Range Interpretation Comments Albumin Lvl (test code = Albumin Lvl) 3.6 3.5-5.0 [facility]2015-04-29 12:48:00 Test Item Value Reference Range Interpretation Comments CO2 (test code = CO2) 33 24-32 [facility]2015-04-29 12:48:00 Test Item Value Reference Range Interpretation Comments Total Protein (test code = Total 6.4 6.4-8.4 Protein) [facility]2015-04-29 12:48:00 Test Item Value Reference Range Interpretation Comments ALT (test code = ALT) 84 See_Comment [Auto mated message] The system which ge nerated this result transmit rafael reference range : <=65. The reference range was not used to interpr et this result as josi l/abnormal. [facility]2015-04-29 12:48:00 Test Item Value Reference Range Interpretation Comments AST (test code = AST) 92 See_Comment [Auto mated message] The system which ge nerated this result transmit rafael reference range : <=37. The reference range was not used to interpr et this result as josi l/abnormal. [facility]2015-04-29 12:48:00 Test Item Value Reference Range Interpretation Comments Glucose Lvl (test code = Glucose Lvl) 105 70-99 [facility]2015-04-29 12:48:00 Test Item Value Reference Range Interpretation Comments BUN (test code = BUN) 30 7-22 [facility]2015-04-29 12:48:00 Test Item Value Reference Range Interpretation Comments eGFR (test code = eGFR) 46 [facility]2015-04-29 12:48:00 Test Item Value Reference Range Interpretation Comments Potassium Lvl (test code = Potassium 3.1 3.5-5.1 Lvl) [facility]2015-04-29 12:48:00 Test Item Value Reference Range Interpretation Comments Calcium Lvl (test code = Calcium Lvl) 8.3 8.5-10.5 [facility]2015-04-29 12:48:00 Test Item Value Reference Range Interpretation Comments Chloride Lvl (test code = Chloride Lvl) 96 95-109 [facility]2015-04-29 12:48:00 Test Item Value Reference Range Interpretation Comments Sodium Lvl (test code = Sodium Lvl) 136 135-145 [facility]2015-04-29 12:48:00 Test Item Value Reference Range Interpretation Comments Creatinine Lvl (test code = Creatinine 1.3 0.5-1.4 Lvl) [facility]2015-04-29 12:48:00 Test Item Value Reference Range Interpretation Comments Globulin (test code = Globulin) 2.8 2.0-4.0 [facility]2015-04-29 12:48:00 Test Item Value Reference Range Interpretation Comments A/G Ratio (test code = A/G Ratio) 1.3 0.7-1.6 [facility]2015-04-29 12:48:00 Test Item Value Reference Range Interpretation Comments B/C Ratio (test code = B/C Ratio) 23 6-25 [facility]2015-04-29 12:48:00 Test Item Value Reference Range Interpretation Comments AGAP (test code = AGAP) 10.1 10.0-20.0 [facility]fe[facility]ak[facility]UQESUDABV7126-85-75 12:48:00 Test Item Value Reference Range Interpretation Comments Macrocyte (test code = 1+ *ABN*(10/30/14 Macrocyte) 7:48 AM) [facility]BscgdznOZGFZSQIMB4495-10-32 12:48:00 Test Item Value Reference Range Interpretation Comments Segs-Bands # (test code = Segs-Bands #) 5.5 1.5-8.1 [facility] HospitalLecfgnlBTNDCXDEZH3701-63-89 12:48:00 Test Item Value Reference Range Interpretation Comments Basophils (test code = 0.7 See_Comment [Aut omated message] The Basophils) system which ge nerated this result tra nsmitted reference range : <=1.0. The reference r genesis was not used to int erpret this result as normal/abnormal . [facility] HospitalYazoxtxUZGRPZVXZV4757-76-37 12:48:00 Test Item Value Reference Range Interpretation Comments Eosinophils (test code = 1.4 See_Comment [A utomated message] The Eosinophils) system which ge nerated this result tra nsmitted reference range : <=4.0. The reference r genesis was not used to int erpret this result as normal/abnormal . [facility] HospitalEosftumDFLVHUPSIT1335-51-76 12:48:00 Test Item Value Reference Range Interpretation Comments Basophils # (test code 0.1 See_Comment [Aut omated message] The = Basophils #) system which generated this result tra nsmitted reference range : <=0.2. The reference r genesis was not used to int erpret this result as normal/abnormal . [facility] HospitalMbmxpqbXQJRUJDXRD1700-20-03 12:48:00 Test Item Value Reference Range Interpretation Comments Eosinophils # (test code 0.1 See_Comment [A utomated message] The = Eosinophils #) system whic h generated this result tra nsmitted reference range : <=0.5. The reference r genesis was not used to int erpret this result as normal/abnormal . [facility] HospitalRfyudxhTZCDEUJSXI9093-91-77 12:48:00 Test Item Value Reference Range Interpretation Comments Lymphocytes # (test code = Lymphocytes 1.6 1.0-5.5 #) [facility]AuogogmJFPKKYGVKG1564-01-06 12:48:00 Test Item Value Reference Range Interpretation Comments Monocytes # (test code 0.5 See_Comment [Aut omated message] The = Monocytes #) system which generated this result tra nsmitted reference range : <=0.8. The reference r genesis was not used to int erpret this result as normal/abnormal . [facility] HospitalYgpxmdgKYYGOQKGHN0654-30-93 12:48:00 Test Item Value Reference Range Interpretation Comments Monocytes (test code = Monocytes) 6.7 2.0-12.0 [facility] HospitalNeiaqwpMMOTQPMGKN8408-79-18 12:48:00 Test Item Value Reference Range Interpretation Comments Lymphocytes (test code = Lymphocytes) 20.3 20.0-40.0 [facility] HospitalAkizgprAQVYCRTHTI0722-75-77 12:48:00 Test Item Value Reference Range Interpretation Comments Segs (test code = Segs) 70.9 45.0-75.0 [facility] HospitalZxgxdkqNLJEIFBELQ9697-99-04 12:48:00 Test Item Value Reference Range Interpretation Comments RDW (test code = RDW) 12.9 11.5-14.5 [facility] HospitalWnviluwDRXRLSYLKD5510-18-51 12:48:00 Test Item Value Reference Range Interpretation Comments Hgb (test code = Hgb) 12.8 12.0-16.0 [facility] HospitalWwdemkeYYEFLVTYDB0228-25-46 12:48:00 Test Item Value Reference Range Interpretation Comments RBC (test code = RBC) 3.56 4.20-5.40 [facility] HospitalRzuhpjtDVGBRIQQJU0273-21-77 12:48:00 Test Item Value Reference Range Interpretation Comments MPV (test code = MPV) 8.3 7.4-10.4 [facility] HospitalFdsrbatMOHYILLMFE6614-68-36 12:48:00 Test Item Value Reference Range Interpretation Comments Platelet (test code = Platelet) 163 133-450 [facility] HospitalTmnzdfcSIUBYTACJR1053-91-05 12:48:00 Test Item Value Reference Range Interpretation Comments MCV (test code = MCV) 103.3 80.0-98.0 [facility] HospitalKzlylcdRJMMYLBEYI9956-20-13 12:48:00 Test Item Value Reference Range Interpretation Comments Hct (test code = Hct) 36.8 36.0-48.0 [facility] HospitalErsjakiCGXKHJFCTA1332-30-19 12:48:00 Test Item Value Reference Range Interpretation Comments MCHC (test code = MCHC) 34.9 32.0-36.0 [facility] HospitalAighnrlZSZTCAIZZY3715-27-02 12:48:00 Test Item Value Reference Range Interpretation Comments MCH (test code = MCH) 36.1 pg 27.0-31.0 [facility] HospitalShumzuwSZRZBYXYZX9688-17-03 12:48:00 Test Item Value Reference Range Interpretation Comments WBC (test code = WBC) 7.8 3.7-10.4 [facility]2015-04-29 12:48:00 Test Item Value Reference Range Interpretation Comments Lipase Lvl (test code = Lipase Lvl) 1352 73-393 [facility]2015-04-29 12:48:00 Test Item Value Reference Range Interpretation Comments Alk Phos (test code = Alk Phos) 50 39-136 [facility]2015-04-29 12:48:00 Test Item Value Reference Range Interpretation Comments Bili Total (test code = Bili Total) 1.0 0.2-1.3 [facility]2015-04-29 12:48:00 Test Item Value Reference Range Interpretation Comments Albumin Lvl (test code = Albumin Lvl) 3.6 3.5-5.0 [facility]2015-04-29 12:48:00 Test Item Value Reference Range Interpretation Comments CO2 (test code = CO2) 33 24-32 [facility]2015-04-29 12:48:00 Test Item Value Reference Range Interpretation Comments Total Protein (test code = Total 6.4 6.4-8.4 Protein) [facility]2015-04-29 12:48:00 Test Item Value Reference Range Interpretation Comments ALT (test code = ALT) 84 See_Comment [Auto mated message] The system which ge nerated this result transmit rafael reference range : <=65. The reference range was not used to interpr et this result as jsoi l/abnormal. [facility]2015-04-29 12:48:00 Test Item Value Reference Range Interpretation Comments AST (test code = AST) 92 See_Comment [Auto mated message] The system which ge nerated this result transmit rafael reference range : <=37. The reference range was not used to interpr et this result as josi l/abnormal. [facility]2015-04-29 12:48:00 Test Item Value Reference Range Interpretation Comments Glucose Lvl (test code = Glucose Lvl) 105 70-99 [facility]2015-04-29 12:48:00 Test Item Value Reference Range Interpretation Comments BUN (test code = BUN) 30 7-22 [facility]2015-04-29 12:48:00 Test Item Value Reference Range Interpretation Comments eGFR (test code = eGFR) 46 [facility]2015-04-29 12:48:00 Test Item Value Reference Range Interpretation Comments Potassium Lvl (test code = Potassium 3.1 3.5-5.1 Lvl) [facility]2015-04-29 12:48:00 Test Item Value Reference Range Interpretation Comments Calcium Lvl (test code = Calcium Lvl) 8.3 8.5-10.5 [facility]2015-04-29 12:48:00 Test Item Value Reference Range Interpretation Comments Chloride Lvl (test code = Chloride Lvl) 96 95-109 [facility]2015-04-29 12:48:00 Test Item Value Reference Range Interpretation Comments Sodium Lvl (test code = Sodium Lvl) 136 135-145 [facility]2015-04-29 12:48:00 Test Item Value Reference Range Interpretation Comments Creatinine Lvl (test code = Creatinine 1.3 0.5-1.4 Lvl) [facility]2015-04-29 12:48:00 Test Item Value Reference Range Interpretation Comments Globulin (test code = Globulin) 2.8 2.0-4.0 [facility]2015-04-29 12:48:00 Test Item Value Reference Range Interpretation Comments A/G Ratio (test code = A/G Ratio) 1.3 0.7-1.6 [facility]2015-04-29 12:48:00 Test Item Value Reference Range Interpretation Comments B/C Ratio (test code = B/C Ratio) 23 6-25 [facility]2015-04-29 12:48:00 Test Item Value Reference Range Interpretation Comments AGAP (test code = AGAP) 10.1 10.0-20.0 [facility] HospitalPuyvbqyCJCUAQBKHJ1541-33-99 12:48:00 Test Item Value Reference Range Interpretation Comments Macrocyte (test code = 1+ *ABN*(10/30/14 Macrocyte) 7:48 AM) [facility] HospitalGjazcsnHFJUIIPJWQ1070-90-54 12:48:00 Test Item Value Reference Range Interpretation Comments Segs-Bands # (test code = Segs-Bands #) 5.5 1.5-8.1 [facility] HospitalHkungddNLVKVGMJMR4585-47-14 12:48:00 Test Item Value Reference Range Interpretation Comments Basophils (test code = 0.7 See_Comment [Aut omated message] The Basophils) system which ge nerated this result tra nsmitted reference range : <=1.0. The reference r genesis was not used to int erpret this result as normal/abnormal . [facility] HospitalGabndfhUXCAMBCNYD3110-43-34 12:48:00 Test Item Value Reference Range Interpretation Comments Eosinophils (test code = 1.4 See_Comment [A utomated message] The Eosinophils) system which ge nerated this result tra nsmitted reference range : <=4.0. The reference r genesis was not used to int erpret this result as normal/abnormal . [facility] HospitalCpnbhsfVTJQTFQYJM6056-21-77 12:48:00 Test Item Value Reference Range Interpretation Comments Basophils # (test code 0.1 See_Comment [Aut omated message] The = Basophils #) system which generated this result tra nsmitted reference range : <=0.2. The reference r genesis was not used to int erpret this result as normal/abnormal . [facility] HospitalWnbfycyNZDCCYSDCG0209-89-92 12:48:00 Test Item Value Reference Range Interpretation Comments Eosinophils # (test code 0.1 See_Comment [A utomated message] The = Eosinophils #) system whic h generated this result tra nsmitted reference range : <=0.5. The reference r genesis was not used to int erpret this result as normal/abnormal . [facility] HospitalXwrvaauPBPHAXBJYG8976-55-05 12:48:00 Test Item Value Reference Range Interpretation Comments Lymphocytes # (test code = Lymphocytes 1.6 1.0-5.5 #) [facility] HospitalImrkghzEPKTLCRWFJ8714-22-02 12:48:00 Test Item Value Reference Range Interpretation Comments Monocytes # (test code 0.5 See_Comment [Aut omated message] The = Monocytes #) system which generated this result tra nsmitted reference range : <=0.8. The reference r genesis was not used to int erpret this result as normal/abnormal . [facility] HospitalHkkrhyqTRELPMHNNV0637-69-49 12:48:00 Test Item Value Reference Range Interpretation Comments Monocytes (test code = Monocytes) 6.7 2.0-12.0 [facility] HospitalMvvrzfhNDUZIICOJJ7632-11-75 12:48:00 Test Item Value Reference Range Interpretation Comments Lymphocytes (test code = Lymphocytes) 20.3 20.0-40.0 [facility] HospitalPmtyehdYMIXZBCZFD4631-90-86 12:48:00 Test Item Value Reference Range Interpretation Comments Segs (test code = Segs) 70.9 45.0-75.0 [facility] HospitalRrxbqfjJIQAPNPSIM6507-34-72 12:48:00 Test Item Value Reference Range Interpretation Comments RDW (test code = RDW) 12.9 11.5-14.5 [facility] HospitalOanunhnQZEMJANDOU5920-98-98 12:48:00 Test Item Value Reference Range Interpretation Comments Hgb (test code = Hgb) 12.8 12.0-16.0 [facility] HospitalVgytezsWJREPKYFMJ2292-89-95 12:48:00 Test Item Value Reference Range Interpretation Comments RBC (test code = RBC) 3.56 4.20-5.40 [facility] HospitalYrpncseCUEOXVLTYR0099-70-91 12:48:00 Test Item Value Reference Range Interpretation Comments MPV (test code = MPV) 8.3 7.4-10.4 [facility] HospitalSzpbesoJEEEOCQPTI8783-70-26 12:48:00 Test Item Value Reference Range Interpretation Comments Platelet (test code = Platelet) 163 133-450 [facility] HospitalUcojashKPENUFSXFC8673-75-98 12:48:00 Test Item Value Reference Range Interpretation Comments MCV (test code = MCV) 103.3 80.0-98.0 [facility] HospitalOpevlzeDTUHPZZLIJ1135-08-23 12:48:00 Test Item Value Reference Range Interpretation Comments Hct (test code = Hct) 36.8 36.0-48.0 [facility] HospitalZjwtqqsXYFBHYTFOV0545-19-06 12:48:00 Test Item Value Reference Range Interpretation Comments MCHC (test code = MCHC) 34.9 32.0-36.0 [facility] HospitalRulziwrMBCNVGZEAN6794-78-25 12:48:00 Test Item Value Reference Range Interpretation Comments MCH (test code = MCH) 36.1 pg 27.0-31.0 [facility] HospitalYzxqatlTCYEUPTSSH9635-33-16 12:48:00 Test Item Value Reference Range Interpretation Comments WBC (test code = WBC) 7.8 3.7-10.4 [facility]2015-04-29 12:48:00 Test Item Value Reference Range Interpretation Comments Lipase Lvl (test code = Lipase Lvl) 1352 73393 [facility]2015-04-29 12:48:00 Test Item Value Reference Range Interpretation Comments Alk Phos (test code = Alk Phos) 50 39-136 [facility]2015-04-29 12:48:00 Test Item Value Reference Range Interpretation Comments Bili Total (test code = Bili Total) 1.0 0.2-1.3 [facility]2015-04-29 12:48:00 Test Item Value Reference Range Interpretation Comments Albumin Lvl (test code = Albumin Lvl) 3.6 3.5-5.0 [facility]2015-04-29 12:48:00 Test Item Value Reference Range Interpretation Comments CO2 (test code = CO2) 33 24-32 [facility]2015-04-29 12:48:00 Test Item Value Reference Range Interpretation Comments Total Protein (test code = Total 6.4 6.4-8.4 Protein) [facility]2015-04-29 12:48:00 Test Item Value Reference Range Interpretation Comments ALT (test code = ALT) 84 See_Comment [Auto mated message] The system which ge nerated this result transmit rafael reference range : <=65. The reference range was not used to interpr et this result as josi l/abnormal. [facility]2015-04-29 12:48:00 Test Item Value Reference Range Interpretation Comments AST (test code = AST) 92 See_Comment [Auto mated message] The system which ge nerated this result transmit rafael reference range : <=37. The reference range was not used to interpr et this result as josi l/abnormal. [facility]2015-04-29 12:48:00 Test Item Value Reference Range Interpretation Comments Glucose Lvl (test code = Glucose Lvl) 105 70-99 [facility]2015-04-29 12:48:00 Test Item Value Reference Range Interpretation Comments BUN (test code = BUN) 30 7-22 [facility]2015-04-29 12:48:00 Test Item Value Reference Range Interpretation Comments eGFR (test code = eGFR) 46 [facility]2015-04-29 12:48:00 Test Item Value Reference Range Interpretation Comments Potassium Lvl (test code = Potassium 3.1 3.5-5.1 Lvl) [facility]2015-04-29 12:48:00 Test Item Value Reference Range Interpretation Comments Calcium Lvl (test code = Calcium Lvl) 8.3 8.5-10.5 [facility]2015-04-29 12:48:00 Test Item Value Reference Range Interpretation Comments Chloride Lvl (test code = Chloride Lvl) 96 95-109 [facility]2015-04-29 12:48:00 Test Item Value Reference Range Interpretation Comments Sodium Lvl (test code = Sodium Lvl) 136 135-145 [facility]2015-04-29 12:48:00 Test Item Value Reference Range Interpretation Comments Creatinine Lvl (test code = Creatinine 1.3 0.5-1.4 Lvl) [facility]2015-04-29 12:48:00 Test Item Value Reference Range Interpretation Comments Globulin (test code = Globulin) 2.8 2.0-4.0 [facility]2015-04-29 12:48:00 Test Item Value Reference Range Interpretation Comments A/G Ratio (test code = A/G Ratio) 1.3 0.7-1.6 [facility]2015-04-29 12:48:00 Test Item Value Reference Range Interpretation Comments B/C Ratio (test code = B/C Ratio) 23 6-25 [facility]2015-04-29 12:48:00 Test Item Value Reference Range Interpretation Comments AGAP (test code = AGAP) 10.1 10.0-20.0 [facility] HospitalVmoqehpZJNABEYLNW2282-58-80 12:48:00 Test Item Value Reference Range Interpretation Comments Macrocyte (test code = 1+ *ABN*(10/30/14 Macrocyte) 7:48 AM) [facility] HospitalWbwazbgONHDDDHUBQ6416-89-90 12:48:00 Test Item Value Reference Range Interpretation Comments Segs-Bands # (test code = Segs-Bands #) 5.5 1.5-8.1 [facility] HospitalGgqlxoqJWJWJZBPZC4536-47-67 12:48:00 Test Item Value Reference Range Interpretation Comments Basophils (test code = 0.7 See_Comment [Aut omated message] The Basophils) system which ge nerated this result tra nsmitted reference range : <=1.0. The reference r genesis was not used to int erpret this result as normal/abnormal . [facility] HospitalTaattlpOCCIMEIFMH5483-13-06 12:48:00 Test Item Value Reference Range Interpretation Comments Eosinophils (test code = 1.4 See_Comment [A utomated message] The Eosinophils) system which ge nerated this result tra nsmitted reference range : <=4.0. The reference r egnesis was not used to int erpret this result as normal/abnormal . [facility] HospitalCcoickuDZWJJPGJJP9842-83-28 12:48:00 Test Item Value Reference Range Interpretation Comments Basophils # (test code 0.1 See_Comment [Aut omated message] The = Basophils #) system which generated this result tra nsmitted reference range : <=0.2. The reference r genesis was not used to int erpret this result as normal/abnormal . [facility] HospitalQxoqttpTQUDHOXCGS9586-41-26 12:48:00 Test Item Value Reference Range Interpretation Comments Eosinophils # (test code 0.1 See_Comment [A utomated message] The = Eosinophils #) system whic h generated this result tra nsmitted reference range : <=0.5. The reference r genesis was not used to int erpret this result as normal/abnormal . [facility] HospitalCdlacukHPMNNGFDCW5324-36-97 12:48:00 Test Item Value Reference Range Interpretation Comments Lymphocytes # (test code = Lymphocytes 1.6 1.0-5.5 #) [facility] HospitalUefnhihAICCLMVNVX4103-18-80 12:48:00 Test Item Value Reference Range Interpretation Comments Monocytes # (test code 0.5 See_Comment [Aut omated message] The = Monocytes #) system which generated this result tra nsmitted reference range : <=0.8. The reference r genesis was not used to int erpret this result as normal/abnormal . [facility] HospitalHgdvmiiWKQUBTNGOV2059-75-71 12:48:00 Test Item Value Reference Range Interpretation Comments Monocytes (test code = Monocytes) 6.7 2.0-12.0 [facility] HospitalSiezyqaDIRQDZXOMR9438-95-82 12:48:00 Test Item Value Reference Range Interpretation Comments Lymphocytes (test code = Lymphocytes) 20.3 20.0-40.0 [facility] HospitalQttgyrnNWHCGVGPTB0321-93-68 12:48:00 Test Item Value Reference Range Interpretation Comments Segs (test code = Segs) 70.9 45.0-75.0 [facility] HospitalCifucpeIWPUDCXERN8781-19-41 12:48:00 Test Item Value Reference Range Interpretation Comments RDW (test code = RDW) 12.9 11.5-14.5 [facility] HospitalUlfzsdhJTJLSENTBH8994-33-27 12:48:00 Test Item Value Reference Range Interpretation Comments Hgb (test code = Hgb) 12.8 12.0-16.0 [facility] HospitalTtjiqdpOBXMQHVMNJ8861-89-90 12:48:00 Test Item Value Reference Range Interpretation Comments RBC (test code = RBC) 3.56 4.20-5.40 [facility] HospitalZdhsaxnXSEWLKZVUH0112-40-94 12:48:00 Test Item Value Reference Range Interpretation Comments MPV (test code = MPV) 8.3 7.4-10.4 [facility] HospitalEdirtixFXJUVYSMEB0965-28-28 12:48:00 Test Item Value Reference Range Interpretation Comments Platelet (test code = Platelet) 163 133-450 [facility] HospitalEfeyyqvBJFLEWSLWW8802-16-67 12:48:00 Test Item Value Reference Range Interpretation Comments MCV (test code = MCV) 103.3 80.0-98.0 [facility] HospitalNbvenzvDDAAQVDPEN5015-61-03 12:48:00 Test Item Value Reference Range Interpretation Comments Hct (test code = Hct) 36.8 36.0-48.0 [facility] HospitalYcenttqQJPMWXDRHK1108-45-06 12:48:00 Test Item Value Reference Range Interpretation Comments MCHC (test code = MCHC) 34.9 32.0-36.0 [facility] HospitalUnozkcfNEWHRQNHVS2951-18-66 12:48:00 Test Item Value Reference Range Interpretation Comments MCH (test code = MCH) 36.1 pg 27.0-31.0 [facility] HospitalOpnssypBVEXQMGAZO9180-69-09 12:48:00 Test Item Value Reference Range Interpretation Comments WBC (test code = WBC) 7.8 3.7-10.4 [facility]2015-04-29 12:48:00 Test Item Value Reference Range Interpretation Comments Lipase Lvl (test code = Lipase Lvl) 1352 73-393 [facility]2015-04-29 12:48:00 Test Item Value Reference Range Interpretation Comments Alk Phos (test code = Alk Phos) 50 39-136 [facility]2015-04-29 12:48:00 Test Item Value Reference Range Interpretation Comments Bili Total (test code = Bili Total) 1.0 0.2-1.3 [facility]2015-04-29 12:48:00 Test Item Value Reference Range Interpretation Comments Albumin Lvl (test code = Albumin Lvl) 3.6 3.5-5.0 [facility]2015-04-29 12:48:00 Test Item Value Reference Range Interpretation Comments CO2 (test code = CO2) 33 24-32 [facility]2015-04-29 12:48:00 Test Item Value Reference Range Interpretation Comments Total Protein (test code = Total 6.4 6.4-8.4 Protein) [facility]2015-04-29 12:48:00 Test Item Value Reference Range Interpretation Comments ALT (test code = ALT) 84 See_Comment [Auto mated message] The system which ge nerated this result transmit rafael reference range : <=65. The reference range was not used to interpr et this result as josi l/abnormal. [facility]2015-04-29 12:48:00 Test Item Value Reference Range Interpretation Comments AST (test code = AST) 92 See_Comment [Auto mated message] The system which ge nerated this result transmit rafael reference range : <=37. The reference range was not used to interpr et this result as josi l/abnormal. [facility]2015-04-29 12:48:00 Test Item Value Reference Range Interpretation Comments Glucose Lvl (test code = Glucose Lvl) 105 70-99 [facility]2015-04-29 12:48:00 Test Item Value Reference Range Interpretation Comments BUN (test code = BUN) 30 7-22 [facility]2015-04-29 12:48:00 Test Item Value Reference Range Interpretation Comments eGFR (test code = eGFR) 46 [facility]2015-04-29 12:48:00 Test Item Value Reference Range Interpretation Comments Potassium Lvl (test code = Potassium 3.1 3.5-5.1 Lvl) [facility]2015-04-29 12:48:00 Test Item Value Reference Range Interpretation Comments Calcium Lvl (test code = Calcium Lvl) 8.3 8.5-10.5 [facility]2015-04-29 12:48:00 Test Item Value Reference Range Interpretation Comments Chloride Lvl (test code = Chloride Lvl) 96 95-109 [facility]2015-04-29 12:48:00 Test Item Value Reference Range Interpretation Comments Sodium Lvl (test code = Sodium Lvl) 136 135-145 [facility]2015-04-29 12:48:00 Test Item Value Reference Range Interpretation Comments Creatinine Lvl (test code = Creatinine 1.3 0.5-1.4 Lvl) [facility]2015-04-29 12:48:00 Test Item Value Reference Range Interpretation Comments Globulin (test code = Globulin) 2.8 2.0-4.0 [facility]2015-04-29 12:48:00 Test Item Value Reference Range Interpretation Comments A/G Ratio (test code = A/G Ratio) 1.3 0.7-1.6 [facility]2015-04-29 12:48:00 Test Item Value Reference Range Interpretation Comments B/C Ratio (test code = B/C Ratio) 23 6-25 [facility] [id number] 12:48:00 Test Item Value Reference Range Interpretation Comments AGAP (test code = AGAP) 10.1 10.0-20.0 [facility]bxolutQFRIDUDXYZ2274-26-72 12:48:00 Test Item Value Reference Range Interpretation Comments Macrocyte (test code = 1+ *ABN*(10/30/14 Macrocyte) 7:48 AM) [facility]CxgvhjdMWQMUXCGHW3816-34-49 12:48:00 Test Item Value Reference Range Interpretation Comments Segs-Bands # (test code = Segs-Bands #) 5.5 1.5-8.1 [facility] HospitalJyekoaqGYEOBBQIRX9738-15-11 12:48:00 Test Item Value Reference Range Interpretation Comments Basophils (test code = 0.7 See_Comment [Aut omated message] The Basophils) system which ge nerated this result tra nsmitted reference range : <=1.0. The reference r genesis was not used to int erpret this result as normal/abnormal . [facility] HospitalBmpypeaSNRHPNRQYQ3973-39-49 12:48:00 Test Item Value Reference Range Interpretation Comments Eosinophils (test code = 1.4 See_Comment [A utomated message] The Eosinophils) system which ge nerated this result tra nsmitted reference range : <=4.0. The reference r genesis was not used to int erpret this result as normal/abnormal . [facility] HospitalMqceaqwGNIJHTOCXA9405-75-23 12:48:00 Test Item Value Reference Range Interpretation Comments Basophils # (test code 0.1 See_Comment [Aut omated message] The = Basophils #) system which generated this result tra nsmitted reference range : <=0.2. The reference r genesis was not used to int erpret this result as normal/abnormal . [facility] HospitalRonmdpxDCNCVIMQDH5700-76-16 12:48:00 Test Item Value Reference Range Interpretation Comments Eosinophils # (test code 0.1 See_Comment [A utomated message] The = Eosinophils #) system [facility] h generated this result tra nsmitted reference range : <=0.5. The reference r genesis was not used to int erpret this result as normal/abnormal . [facility] HospitalJqxattmYQOIDUCUGL5448-96-14 12:48:00 Test Item Value Reference Range Interpretation Comments Lymphocytes # (test code = Lymphocytes 1.6 1.0-5.5 #) [facility] HospitalUlpeuwdCRVYHNGXPN5264-80-62 12:48:00 Test Item Value Reference Range Interpretation Comments Monocytes # (test code 0.5 See_Comment [Aut omated message] The = Monocytes #) system which generated this result tra nsmitted reference range : <=0.8. The reference r genesis was not used to int erpret this result as normal/abnormal . [facility] HospitalNxecajyYVPICOMACM5078-18-21 12:48:00 Test Item Value Reference Range Interpretation Comments Monocytes (test code = Monocytes) 6.7 2.0-12.0 [facility] HospitalJsffurdXFCPQZJPTJ8681-88-48 12:48:00 Test Item Value Reference Range Interpretation Comments Lymphocytes (test code = Lymphocytes) 20.3 20.0-40.0 [facility] HospitalNxoiscxWSBREMEKOG1295-73-10 12:48:00 Test Item Value Reference Range Interpretation Comments Segs (test code = Segs) 70.9 45.0-75.0 [facility] HospitalQvfaqmxQQPVVZGDEA4505-47-01 12:48:00 Test Item Value Reference Range Interpretation Comments RDW (test code = RDW) 12.9 11.5-14.5 [facility] HospitalUripwqbLYCLAVUNCF4055-79-12 12:48:00 Test Item Value Reference Range Interpretation Comments Hgb (test code = Hgb) 12.8 12.0-16.0 [facility] HospitalCozbfzvNNYBSPWYHR3876-05-56 12:48:00 Test Item Value Reference Range Interpretation Comments RBC (test code = RBC) 3.56 4.20-5.40 [facility] HospitalKazyndvSYQLIOKBXK9640-12-37 12:48:00 Test Item Value Reference Range Interpretation Comments MPV (test code = MPV) 8.3 7.4-10.4 [facility] HospitalAlkxmpiBGBDHFVAUF5016-16-97 12:48:00 Test Item Value Reference Range Interpretation Comments Platelet (test code = Platelet) 163 133-450 [facility] HospitalUrftuycEYSMYPYKAX5306-74-90 12:48:00 Test Item Value Reference Range Interpretation Comments MCV (test code = MCV) 103.3 80.0-98.0 [facility] HospitalAsijgdrYIHUUPTPYI2382-45-82 12:48:00 Test Item Value Reference Range Interpretation Comments Hct (test code = Hct) 36.8 36.0-48.0 [facility] HospitalUbxvbgdUSJJXCEMBB7402-72-78 12:48:00 Test Item Value Reference Range Interpretation Comments MCHC (test code = MCHC) 34.9 32.0-36.0 [facility] HospitalJwdpddkGNLVKIBFKZ1702-68-69 12:48:00 Test Item Value Reference Range Interpretation Comments MCH (test code = MCH) 36.1 pg 27.0-31.0 [facility] HospitalSxolpzkHTQUMIGVHW1856-71-41 12:48:00 Test Item Value Reference Range Interpretation Comments WBC (test code = WBC) 7.8 3.7-10.4 [facility]2015-04-29 12:48:00 Test Item Value Reference Range Interpretation Comments Lipase Lvl (test code = Lipase Lvl) 1352 73-393 [facility]2015-04-29 12:48:00 Test Item Value Reference Range Interpretation Comments Alk Phos (test code = Alk Phos) 50 39-136 [facility]2015-04-29 12:48:00 Test Item Value Reference Range Interpretation Comments Bili Total (test code = Bili Total) 1.0 0.2-1.3 [facility]2015-04-29 12:48:00 Test Item Value Reference Range Interpretation Comments Albumin Lvl (test code = Albumin Lvl) 3.6 3.5-5.0 [facility]2015-04-29 12:48:00 Test Item Value Reference Range Interpretation Comments CO2 (test code = CO2) 33 24-32 [facility]2015-04-29 12:48:00 Test Item Value Reference Range Interpretation Comments Total Protein (test code = Total 6.4 6.4-8.4 Protein) [facility]2015-04-29 12:48:00 Test Item Value Reference Range Interpretation Comments ALT (test code = ALT) 84 See_Comment [Auto mated message] The system which ge nerated this result transmit rafael reference range : <=65. The reference range was not used to interpr et this result as josi l/abnormal. [facility]2015-04-29 12:48:00 Test Item Value Reference Range Interpretation Comments AST (test code = AST) 92 See_Comment [Auto mated message] The system which ge nerated this result transmit rafael reference range : <=37. The reference range was not used to interpr et this result as josi l/abnormal. [facility]2015-04-29 12:48:00 Test Item Value Reference Range Interpretation Comments Glucose Lvl (test code = Glucose Lvl) 105 70-99 [facility]2015-04-29 12:48:00 Test Item Value Reference Range Interpretation Comments BUN (test code = BUN) 30 7-22 [facility]2015-04-29 12:48:00 Test Item Value Reference Range Interpretation Comments eGFR (test code = eGFR) 46 [facility]2015-04-29 12:48:00 Test Item Value Reference Range Interpretation Comments Potassium Lvl (test code = Potassium 3.1 3.5-5.1 Lvl) [facility]2015-04-29 12:48:00 Test Item Value Reference Range Interpretation Comments Calcium Lvl (test code = Calcium Lvl) 8.3 8.5-10.5 [facility]2015-04-29 12:48:00 Test Item Value Reference Range Interpretation Comments Chloride Lvl (test code = Chloride Lvl) 96 95-109 [facility]2015-04-29 12:48:00 Test Item Value Reference Range Interpretation Comments Sodium Lvl (test code = Sodium Lvl) 136 135-145 [facility]2015-04-29 12:48:00 Test Item Value Reference Range Interpretation Comments Creatinine Lvl (test code = Creatinine 1.3 0.5-1.4 Lvl) [facility]2015-04-29 12:48:00 Test Item Value Reference Range Interpretation Comments Globulin (test code = Globulin) 2.8 2.0-4.0 [facility]2015-04-29 12:48:00 Test Item Value Reference Range Interpretation Comments A/G Ratio (test code = A/G Ratio) 1.3 0.7-1.6 [facility]2015-04-29 12:48:00 Test Item Value Reference Range Interpretation Comments B/C Ratio (test code = B/C Ratio) 23 6-25 [facility]2015-04-29 12:48:00 Test Item Value Reference Range Interpretation Comments AGAP (test code = AGAP) 10.1 10.0-20.0 [facility] HospitalWowduyuNPUXQHFBUR4828-27-12 12:48:00 Test Item Value Reference Range Interpretation Comments Macrocyte (test code = 1+ *ABN*(10/30/14 Macrocyte) 7:48 AM) [facility] HospitalDiwzzmbWPEFHBUMSX9832-19-26 12:48:00 Test Item Value Reference Range Interpretation Comments Segs-Bands # (test code = Segs-Bands #) 5.5 1.5-8.1 [facility] HospitalWuaouosMIULYKTTJR0651-01-70 12:48:00 Test Item Value Reference Range Interpretation Comments Basophils (test code = 0.7 See_Comment [Aut omated message] The Basophils) system which ge nerated this result tra nsmitted reference range : <=1.0. The reference r genesis was not used to int erpret this result as normal/abnormal . [facility] HospitalHmertvlNIDXKUWSQX2796-52-23 12:48:00 Test Item Value Reference Range Interpretation Comments Eosinophils (test code = 1.4 See_Comment [A utomated message] The Eosinophils) system which ge nerated this result tra nsmitted reference range : <=4.0. The reference r genesis was not used to int erpret this result as normal/abnormal . [facility] HospitalMmgzzvvIGYDUBPNBG1136-81-25 12:48:00 Test Item Value Reference Range Interpretation Comments Basophils # (test code 0.1 See_Comment [Aut omated message] The = Basophils #) system which generated this result tra nsmitted reference range : <=0.2. The reference r genesis was not used to int erpret this result as normal/abnormal . [facility] HospitalSmootkrQEXHLQGYQR0430-04-84 12:48:00 Test Item Value Reference Range Interpretation Comments Eosinophils # (test code 0.1 See_Comment [A utomated message] The = Eosinophils #) system wh h generated this result tra nsmitted reference range : <=0.5. The reference r genesis was not used to int erpret this result as normal/abnormal . [facility] HospitalMfzblavXMPPBTRIEO3789-62-31 12:48:00 Test Item Value Reference Range Interpretation Comments Lymphocytes # (test code = Lymphocytes 1.6 1.0-5.5 #) [facility] HospitalNiyyvcrTKPUJILUFX5927-37-24 12:48:00 Test Item Value Reference Range Interpretation Comments Monocytes # (test code 0.5 See_Comment [Aut omated message] The = Monocytes #) system which generated this result tra nsmitted reference range : <=0.8. The reference r genesis was not used to int erpret this result as normal/abnormal . [facility] HospitalTkbxklnVNQCHPFQGI0830-67-47 12:48:00 Test Item Value Reference Range Interpretation Comments Monocytes (test code = Monocytes) 6.7 2.0-12.0 [facility] HospitalZqwwojeWBVJYATVVY9324-43-71 12:48:00 Test Item Value Reference Range Interpretation Comments Lymphocytes (test code = Lymphocytes) 20.3 20.0-40.0 [facility] HospitalMvhubbvFZTVIXJZPY0160-38-00 12:48:00 Test Item Value Reference Range Interpretation Comments Segs (test code = Segs) 70.9 45.0-75.0 [facility] HospitalMrybzjpKQFXZIDDHC6854-90-63 12:48:00 Test Item Value Reference Range Interpretation Comments RDW (test code = RDW) 12.9 11.5-14.5 [facility] HospitalXevulxvKXRQXEJCWI9609-12-97 12:48:00 Test Item Value Reference Range Interpretation Comments Hgb (test code = Hgb) 12.8 12.0-16.0 [facility] HospitalSsdsunyAYXDQHSAEW7165-69-20 12:48:00 Test Item Value Reference Range Interpretation Comments RBC (test code = RBC) 3.56 4.20-5.40 [facility] HospitalZfqtzdsQFUUXHROIE2220-22-48 12:48:00 Test Item Value Reference Range Interpretation Comments MPV (test code = MPV) 8.3 7.4-10.4 [facility] HospitalRmrgrwaEMNZNZWMXE6787-76-46 12:48:00 Test Item Value Reference Range Interpretation Comments Platelet (test code = Platelet) 163 133-450 [facility] HospitalQoyzljyMNBFGHZALJ1264-77-10 12:48:00 Test Item Value Reference Range Interpretation Comments MCV (test code = MCV) 103.3 80.0-98.0 [facility] HospitalVnjnidhGMSTNJMPTP2296-10-74 12:48:00 Test Item Value Reference Range Interpretation Comments Hct (test code = Hct) 36.8 36.0-48.0 [facility] HospitalXoojqonVGIIMXMHLR0857-94-36 12:48:00 Test Item Value Reference Range Interpretation Comments MCHC (test code = MCHC) 34.9 32.0-36.0 [facility] HospitalCfzqvtuQYGEJFXXCZ5447-00-25 12:48:00 Test Item Value Reference Range Interpretation Comments MCH (test code = MCH) 36.1 pg 27.0-31.0 [facility] HospitalJkljgzlRVQAIANUXN4782-23-93 12:48:00 Test Item Value Reference Range Interpretation Comments WBC (test code = WBC) 7.8 3.7-10.4 [facility]2015-04-29 12:48:00 Test Item Value Reference Range Interpretation Comments Lipase Lvl (test code = Lipase Lvl) 1352 73-393 [facility]2015-04-29 12:48:00 Test Item Value Reference Range Interpretation Comments Alk Phos (test code = Alk Phos) 50 39-136 [facility]2015-04-29 12:48:00 Test Item Value Reference Range Interpretation Comments Bili Total (test code = Bili Total) 1.0 0.2-1.3 [facility]2015-04-29 12:48:00 Test Item Value Reference Range Interpretation Comments Albumin Lvl (test code = Albumin Lvl) 3.6 3.5-5.0 [facility]2015-04-29 12:48:00 Test Item Value Reference Range Interpretation Comments CO2 (test code = CO2) 33 24-32 [facility]2015-04-29 12:48:00 Test Item Value Reference Range Interpretation Comments Total Protein (test code = Total 6.4 6.4-8.4 Protein) [facility]2015-04-29 12:48:00 Test Item Value Reference Range Interpretation Comments ALT (test code = ALT) 84 See_Comment [Auto mated message] The system which ge nerated this result transmit rafael reference range : <=65. The reference range was not used to interpr et this result as josi l/abnormal. [facility]2015-04-29 12:48:00 Test Item Value Reference Range Interpretation Comments AST (test code = AST) 92 See_Comment [Auto mated message] The system which ge nerated this result transmit rafael reference range : <=37. The reference range was not used to interpr et this result as josi l/abnormal. [facility]2015-04-29 12:48:00 Test Item Value Reference Range Interpretation Comments Glucose Lvl (test code = Glucose Lvl) 105 70-99 [facility]2015-04-29 12:48:00 Test Item Value Reference Range Interpretation Comments BUN (test code = BUN) 30 7-22 [facility]2015-04-29 12:48:00 Test Item Value Reference Range Interpretation Comments eGFR (test code = eGFR) 46 [facility]2015-04-29 12:48:00 Test Item Value Reference Range Interpretation Comments Potassium Lvl (test code = Potassium 3.1 3.5-5.1 Lvl) [facility]2015-04-29 12:48:00 Test Item Value Reference Range Interpretation Comments Calcium Lvl (test code = Calcium Lvl) 8.3 8.5-10.5 [facility]2015-04-29 12:48:00 Test Item Value Reference Range Interpretation Comments Chloride Lvl (test code = Chloride Lvl) 96 95-109 [facility]2015-04-29 12:48:00 Test Item Value Reference Range Interpretation Comments Sodium Lvl (test code = Sodium Lvl) 136 135-145 [facility]2015-04-29 12:48:00 Test Item Value Reference Range Interpretation Comments Creatinine Lvl (test code = Creatinine 1.3 0.5-1.4 Lvl) [facility]2015-04-29 12:48:00 Test Item Value Reference Range Interpretation Comments Globulin (test code = Globulin) 2.8 2.0-4.0 [facility]2015-04-29 12:48:00 Test Item Value Reference Range Interpretation Comments A/G Ratio (test code = A/G Ratio) 1.3 0.7-1.6 [facility]2015-04-29 12:48:00 Test Item Value Reference Range Interpretation Comments B/C Ratio (test code = B/C Ratio) 23 6-25 [facility]2015-04-29 12:48:00 Test Item Value Reference Range Interpretation Comments AGAP (test code = AGAP) 10.1 10.0-20.0 [facility]57 12:48:00 Test Item Value Reference Range Interpretation Comments Macrocyte (test code = 1+ *ABN*(10/30/14 Macrocyte) 7:48 AM) [facility] HospitalClxfoxjKAAKJABNHA2805-63-38 12:48:00 Test Item Value Reference Range Interpretation Comments Segs-Bands # (test code = Segs-Bands #) 5.5 1.5-8.1 [facility] HospitalAymjtxlPFJJKCPHNE5515-23-73 12:48:00 Test Item Value Reference Range Interpretation Comments Basophils (test code = 0.7 See_Comment [Aut omated message] The Basophils) system which ge nerated this result tra nsmitted reference range : <=1.0. The reference r genesis was not used to int erpret this result as normal/abnormal . [facility] HospitalVgpilaeBRJSNITSHF6649-40-70 12:48:00 Test Item Value Reference Range Interpretation Comments Eosinophils (test code = 1.4 See_Comment [A utomated message] The Eosinophils) system which ge nerated this result tra nsmitted reference range : <=4.0. The reference r genesis was not used to int erpret this result as normal/abnormal . [facility] HospitalLycjzgwYZFOKXEUYC8829-00-32 12:48:00 Test Item Value Reference Range Interpretation Comments Basophils # (test code 0.1 See_Comment [Aut omated message] The = Basophils #) system which generated this result tra nsmitted reference range : <=0.2. The reference r genesis was not used to int erpret this result as normal/abnormal . [facility] HospitalDpngaemNNFRAPGKYI6728-90-14 12:48:00 Test Item Value Reference Range Interpretation Comments Eosinophils # (test code 0.1 See_Comment [A utomated message] The = Eosinophils #) system [facility] generated this result tra nsmitted reference range : <=0.5. The reference r genesis was not used to int erpret this result as normal/abnormal . [facility] HospitalDhonzufDERZRKUKJP5963-11-69 12:48:00 Test Item Value Reference Range Interpretation Comments Lymphocytes # (test code = Lymphocytes 1.6 1.0-5.5 #) [facility] HospitalJhehqnlKULXBOJNRU7237-49-49 12:48:00 Test Item Value Reference Range Interpretation Comments Monocytes # (test code 0.5 See_Comment [Aut omated message] The = Monocytes #) system which generated this result tra nsmitted reference range : <=0.8. The reference r genesis was not used to int erpret this result as normal/abnormal . [facility] HospitalCwjqzvhUMYPFNFUAA9857-20-27 12:48:00 Test Item Value Reference Range Interpretation Comments Monocytes (test code = Monocytes) 6.7 2.0-12.0 [facility] HospitalOeojgdeBVLWDIJZMU4351-63-23 12:48:00 Test Item Value Reference Range Interpretation Comments Lymphocytes (test code = Lymphocytes) 20.3 20.0-40.0 [facility] HospitalWoyokcbDQBMVMHZAD5339-40-27 12:48:00 Test Item Value Reference Range Interpretation Comments Segs (test code = Segs) 70.9 45.0-75.0 [facility] HospitalWecnqsnQLUQSGTCSK6242-64-14 12:48:00 Test Item Value Reference Range Interpretation Comments RDW (test code = RDW) 12.9 11.5-14.5 [facility] HospitalNmzlghyIQBSREQMNE5832-54-67 12:48:00 Test Item Value Reference Range Interpretation Comments Hgb (test code = Hgb) 12.8 12.0-16.0 [facility] HospitalPfwtbjfGHYVEAJTAE5303-67-78 12:48:00 Test Item Value Reference Range Interpretation Comments RBC (test code = RBC) 3.56 4.20-5.40 [facility] HospitalMxhlzofBXXXPQCDCJ2056-51-99 12:48:00 Test Item Value Reference Range Interpretation Comments MPV (test code = MPV) 8.3 7.4-10.4 [facility] HospitalNfjdgzuMJLMBETHDY1450-25-02 12:48:00 Test Item Value Reference Range Interpretation Comments Platelet (test code = Platelet) 163 133-450 [facility] HospitalOhmuueeODSISOHAEI2452-19-72 12:48:00 Test Item Value Reference Range Interpretation Comments MCV (test code = MCV) 103.3 80.0-98.0 [facility] HospitalPgveihiXDBDCNVUUX8129-37-69 12:48:00 Test Item Value Reference Range Interpretation Comments Hct (test code = Hct) 36.8 36.0-48.0 [facility] HospitalAwuaunxKSMSXOXKEH4191-54-63 12:48:00 Test Item Value Reference Range Interpretation Comments MCHC (test code = MCHC) 34.9 32.0-36.0 [facility] HospitalFrpdffgKWETYOFTVG5253-85-16 12:48:00 Test Item Value Reference Range Interpretation Comments MCH (test code = MCH) 36.1 pg 27.0-31.0 [facility] HospitalButazuzQXXRNHHUDC4729-19-50 12:48:00 Test Item Value Reference Range Interpretation Comments WBC (test code = WBC) 7.8 3.7-10.4 [facility] HospitalOjrvqieKEAQCYFVAU4812-73-68 12:48:00 Test Item Value Reference Range Interpretation Comments Monocytes (test code = Monocytes) 6.7 2.0-12.0 [facility] HospitalHegnhcjOCKGIZMNTI5963-23-35 12:48:00 Test Item Value Reference Range Interpretation Comments Lymphocytes (test code = Lymphocytes) 20.3 20.0-40.0 [facility] HospitalPchmuwsQOOJVRCGGZ2689-33-77 12:48:00 Test Item Value Reference Range Interpretation Comments Segs (test code = Segs) 70.9 45.0-75.0 [facility] HospitalZvxxxkcKJRFLLUBNN1831-34-07 12:48:00 Test Item Value Reference Range Interpretation Comments RDW (test code = RDW) 12.9 11.5-14.5 [facility] HospitalAbppnbfJXUEHFNBHS3572-48-37 12:48:00 Test Item Value Reference Range Interpretation Comments Hgb (test code = Hgb) 12.8 12.0-16.0 [facility] HospitalSqolrnlHEIFDDBBOE8966-70-41 12:48:00 Test Item Value Reference Range Interpretation Comments RBC (test code = RBC) 3.56 4.20-5.40 [facility] HospitalCjeqqanMBFQBAVCKL4427-24-79 12:48:00 Test Item Value Reference Range Interpretation Comments MPV (test code = MPV) 8.3 7.4-10.4 [facility] HospitalHigocdnSDRPLEPOHI5972-16-19 12:48:00 Test Item Value Reference Range Interpretation Comments Platelet (test code = Platelet) 163 133-450 [facility] HospitalYpjwhquLXTHGHFRTM0017-12-76 12:48:00 Test Item Value Reference Range Interpretation Comments MCV (test code = MCV) 103.3 80.0-98.0 [facility] HospitalTlozbruGFVLGQKEEK1360-59-29 12:48:00 Test Item Value Reference Range Interpretation Comments Hct (test code = Hct) 36.8 36.0-48.0 [facility] HospitalYcskqrpYAJHNWRMDJ8863-91-28 12:48:00 Test Item Value Reference Range Interpretation Comments MCHC (test code = MCHC) 34.9 32.0-36.0 [facility] HospitalModyphcWXXRTWLINV8864-40-49 12:48:00 Test Item Value Reference Range Interpretation Comments MCH (test code = MCH) 36.1 pg 27.0-31.0 [facility] HospitalFuoutfqHAKUHTLDKZ1249-90-09 12:48:00 Test Item Value Reference Range Interpretation Comments WBC (test code = WBC) 7.8 3.7-10.4 [facility]2015-04-29 12:48:00 Test Item Value Reference Range Interpretation Comments Lipase Lvl (test code = Lipase Lvl) 1352 73-393 [facility]2015-04-29 12:48:00 Test Item Value Reference Range Interpretation Comments Alk Phos (test code = Alk Phos) 50 39-136 [facility]2015-04-29 12:48:00 Test Item Value Reference Range Interpretation Comments Bili Total (test code = Bili Total) 1.0 0.2-1.3 [facility]2015-04-29 12:48:00 Test Item Value Reference Range Interpretation Comments Albumin Lvl (test code = Albumin Lvl) 3.6 3.5-5.0 [facility]2015-04-29 12:48:00 Test Item Value Reference Range Interpretation Comments CO2 (test code = CO2) 33 24-32 [facility]2015-04-29 12:48:00 Test Item Value Reference Range Interpretation Comments Total Protein (test code = Total 6.4 6.4-8.4 Protein) [facility]2015-04-29 12:48:00 Test Item Value Reference Range Interpretation Comments ALT (test code = ALT) 84 See_Comment [Auto mated message] The system which ge nerated this result transmit rafael reference range : <=65. The reference range was not used to interpr et this result as josi l/abnormal. [facility]2015-04-29 12:48:00 Test Item Value Reference Range Interpretation Comments AST (test code = AST) 92 See_Comment [Auto mated message] The system which ge nerated this result transmit rafael reference range : <=37. The reference range was not used to interpr et this result as josi l/abnormal. [facility]2015-04-29 12:48:00 Test Item Value Reference Range Interpretation Comments Glucose Lvl (test code = Glucose Lvl) 105 70-99 [place] 086295-04-29 12:48:00 Test Item Value Reference Range Interpretation Comments BUN (test code = BUN) 30 7-22 [facility]2015-04-29 12:48:00 Test Item Value Reference Range Interpretation Comments eGFR (test code = eGFR) 46 [facility]2015-04-29 12:48:00 Test Item Value Reference Range Interpretation Comments Potassium Lvl (test code = Potassium 3.1 3.5-5.1 Lvl) [facility]2015-04-29 12:48:00 Test Item Value Reference Range Interpretation Comments Calcium Lvl (test code = Calcium Lvl) 8.3 8.5-10.5 [facility]2015-04-29 12:48:00 Test Item Value Reference Range Interpretation Comments Chloride Lvl (test code = Chloride Lvl) 96 95-109 [facility]2015-04-29 12:48:00 Test Item Value Reference Range Interpretation Comments Sodium Lvl (test code = Sodium Lvl) 136 135-145 [facility]2015-04-29 12:48:00 Test Item Value Reference Range Interpretation Comments Creatinine Lvl (test code = Creatinine 1.3 0.5-1.4 Lvl) [facility]2015-04-29 12:48:00 Test Item Value Reference Range Interpretation Comments Globulin (test code = Globulin) 2.8 2.0-4.0 [facility]2015-04-29 12:48:00 Test Item Value Reference Range Interpretation Comments A/G Ratio (test code = A/G Ratio) 1.3 0.7-1.6 [facility]2015-04-29 12:48:00 Test Item Value Reference Range Interpretation Comments B/C Ratio (test code = B/C Ratio) 23 6-25 [facility]2015-04-29 12:48:00 Test Item Value Reference Range Interpretation Comments AGAP (test code = AGAP) 10.1 10.0-20.0 [facility] 12:48:00 Test Item Value Reference Range Interpretation Comments Macrocyte (test code = 1+ *ABN*(10/30/14 Macrocyte) 7:48 AM) [facility]1269[facility]12-55 12:48:00 Test Item Value Reference Range Interpretation Comments Segs-Bands # (test code = Segs-Bands #) 5.5 1.5-8.1 [id number] 12:48:00 Test Item Value Reference Range Interpretation Comments Basophils (test code = 0.7 See_Comment [Aut omated message] The Basophils) system which ge nerated this result tra nsmitted reference range : <=1.0. The reference r genesis was not used to int erpret this result as normal/abnormal . [id number] 12:48:00 Test Item Value Reference Range Interpretation Comments Eosinophils (test code = 1.4 See_Comment [A utomated message] The Eosinophils) system which ge nerated this result tra nsmitted reference range : <=4.0. The reference r genesis was not used to int erpret this result as normal/abnormal . [facility]pkdbhzKHMNDWLDXM2279-84-65 12:48:00 Test Item Value Reference Range Interpretation Comments Basophils # (test code 0.1 See_Comment [Aut omated message] The = Basophils #) system which generated this result tra nsmitted reference range : <=0.2. The reference r genesis was not used to int erpret this result as normal/abnormal . [id number] 12:48:00 Test Item Value Reference Range Interpretation Comments Eosinophils # (test code 0.1 See_Comment [A utomated message] The = Eosinophils #) system wh h generated this result tra nsmitted reference range : <=0.5. The reference r genesis was not used to int erpret this result as normal/abnormal . [id number] 12:48:00 Test Item Value Reference Range Interpretation Comments Lymphocytes # (test code = Lymphocytes 1.6 1.0-5.5 #) [id number] 12:48:00 Test Item Value Reference Range Interpretation Comments Monocytes # (test code 0.5 See_Comment [Aut omated message] The = Monocytes #) system which generated this result tra nsmitted reference range : <=0.8. The reference r genesis was not used to int erpret this result as normal/abnormal . [facility]
--- NOTE | 2022-11-12 20:06 | RAD REPORT ---
EXAM DESCRIPTION: RAD - Shoulder Right 2 View - 11/12/2022 7:57 pm CLINICAL HISTORY: PAIN COMPARISON: <Comparisons> FINDINGS: Chronic significant separation of the are seen AC joint is present. Mild degenerative chavez ges right glenohumeral joint. No fracture seen.
--- NOTE | 2022-11-12 21:38 | EDPHYS ---
Physician Documentation [facility] Name: Billie Botello Age: 62 yrs Sex: Female : 1960 Arrival Date: 11/12/2022 Time: 19:30 Bed 14 Private MD: ED Physician Luis Daniel Kat HPI: 11/12 22:21 This 62 yrs old Female presents to ER via EMS with complaints of Fall Injury. kb 22:21 Details of fall: The patient fell from an upright position. Onset: The symptoms/episode kb began/occurred just prior to arrival. Associated injuries: The patient sustained injury to the head, laceration. Severity of symptoms: At their worst the symptoms were mild, in the emergency department the symptoms are unchanged. The patient has not experienced similar symptoms in the past. The patient has not recently seen a physician. EMS reports pt was walking back to the house to get something when she tripped and hit her head. Friends witnessed the fall. State pt did not have LOC. Pt has been acting and speaking as she normally does since the stroke. . Historical: - Allergies: 20:21 Bactrim; eh3 20:21 Sulfa (Sulfonamide Antibiotics); eh3 20:21 Trazodone; eh3 20:21 TRIMETHOPRIM; eh3 - PMHx: 20:21 Diabetes - NIDDM; etoh abuse; High Cholesterol; Hypertension; Pancreatitis; stroke; eh3 - PSHx: 20:21 Appendectomy; section; left foot; right wrist; Tonsillectomy; eh3 - Immunization history:: Adult Immunizations unknown. - Social history:: Smoking status: unknown. ROS: 22:17 Constitutional: Negative for fever, chills, and weight loss. kb 22:17 Skin: Positive for laceration(s), of the scalp. 22:17 All other systems are negative. Exam: 22:17 Constitutional: This is a well developed, well nourished patient who is awake, alert, kb and in no acute distress. Eyes: Pupils equal round and reactive to light, extra-ocular motions intact. Lids and lashes normal. Conjunctiva and sclera are non-icteric and not injected. Cornea within normal limits. Periorbital areas with no swelling, redness, or edema. ENT: Moist Mucous membranes Cardiovascular: Regular rate and rhythm with a normal S1 and S2. No gallops, murmurs, or rubs. No pulse deficits. Respiratory: Respirations even and unlabored. No increased work of breathing. Talking in full sentences Abdomen/GI: Soft, non-tender. No distention Skin: Warm, dry with normal turgor. Normal color. MS/ Extremity: Pulses equal, no cyanosis. Neurovascular intact. Full, normal range of motion. Neuro: Awake and alert. Moves all extremities. Normal gait for pt 22:17 Head/face: Noted is no obvious of injury or deformity except abrasion(s), that are mild, of the scalp. 22:17 Neuro: Exam negative for acute changes. Vital Signs: 19:34 BP 135 / 96; Pulse 82; Resp 18; Temp 97.5; Pulse Ox 95% on R/A; Weight 72.12 kg; Height pf1 5 ft. 4 in. ; Pain 0/10; 20:15 BP 130 / 106; Pulse 73; Resp 18; Pulse Ox 98% on R/A; eh3 21:30 BP 128 / 82; Pulse 70; Resp 17; Pulse Ox 99% ; vc1 19:34 Body Mass Index 27.29 (72.12 kg, 162.56 cm) pf1 19:34 Pain Scale: Adult pf1 MDM: 19:33 Patient medically screened. kb 22:18 Differential diagnosis: abrasion, closed head injury, contusion. Data reviewed: vital kb signs, nurses notes. Management of patient was discussed with the following: dr Kat, does not recommend syncope workup since pt was seen tripping and negative LOC. Historians other than the Patient:. Care significantly affected by the following chronic conditions: CVA. Counseling: I had a detailed discussion with the patient and/or guardian regarding: the historical points, exam findings, and any diagnostic results supporting the discharge/admit diagnosis, radiology results, the need for outpatient follow up, a family practitioner, to return to the emergency department if symptoms worsen or persist or if there are any questions or concerns that arise at home. ED course: Daughter came to pick pt up and take her home. States pt is acting and speaking as she normally does since the stroke. 22:21 Historians other than the Patient: EMS: [facility]. kb 11/12 19:33 Order name: CT Head C Spine; Complete Time: 19:57 kb 11/12 19:47 Order name: Shoulder Right (2 View) XRAY; Complete Time: 20:11 kb 11/12 19:58 Order name: Wound Care; Complete Time: 20:18 kb Administered Medications: No medications were administered Disposition Summary: 11/12/22 21:38 Discharge Ordered Location: Home kb Condition: Stable kb Diagnosis - Unspecified injury of head, initial encounter kb - Fall on same level from slipping, tripping and stumbling without subsequent kb striking against object Followup: kb - With: Emergency Department - When: As needed - Reason: Worsening of condition Followup: kb - With: Private Physician - When: 2 - 3 days - Reason: Recheck today's complaints, Continuance of care, Re-evaluation by your physician Discharge Instructions: - Discharge Summary Sheet kb - Hematoma, [id number] kb - Head Injury, Adult, [id number]-[id number] kb Forms: - Medication Reconciliation Form kb - Thank You Letter kb - Antibiotic Education kb - Prescription Opioid Use kb Signatures: Dispatcher [employer] Yamilka Carr, JUNIOR MARKETING ASSOCIATE-C JUNIOR MARKETING ASSOCIATE-Yamilka Garcia, RN RN eh3
--- NOTE | 2022-11-12 21:38 | ER ---
Nurse's Notes [facility] Name: Billie Botello Age: 62 yrs Sex: Female : 1960 Arrival Date: 11/12/2022 Time: 19:30 Bed 14 Private MD: Diagnosis: Unspecified injury of head, initial encounter;Fall on same level from slipping, tripping and stumbling without subsequent striking against object Presentation: 11/12 19:34 Chief complaint: EMS states: C/O head injury with laceration to posterior head from a pf1 fall with +LOC,onset [employer]. [facility] stated patient was at a green party, tripped, fell back and hit head on a concrete block. EMS stated patient had been drinking alcohol. Ebola Screen: Patient negative for fever greater than or equal to 101.5 degrees Fahrenheit, and additional compatible Ebola Virus Disease symptoms. Initial Sepsis Screen: Does the patient meet any 2 criteria? No. Patient's initial sepsis screen is negative. Does the patient have a suspected source of infection? No. Patient's initial sepsis screen is negative. Risk Assessment: Do you want to hurt yourself or someone else? Patient reports no desire to harm self or others. 19:34 Method Of Arrival: EMS: [facility] pf1 19:34 Acuity: NIKA 3 pf1 21:31 Coronavirus screen: At this time, the client does not indicate any symptoms associated vc1 with coronavirus-19. Onset of symptoms was November 12, 2022. Historical: - Allergies: 20:21 Bactrim; eh3 20:21 Sulfa (Sulfonamide Antibiotics); eh3 20:21 Trazodone; eh3 20:21 TRIMETHOPRIM; eh3 - PMHx: 20:21 Diabetes - NIDDM; etoh abuse; High Cholesterol; Hypertension; Pancreatitis; stroke; eh3 - PSHx: 20:21 Appendectomy; section; left foot; right wrist; Tonsillectomy; eh3 - Immunization history:: Adult Immunizations unknown. - Social history:: Smoking status: unknown. Screenin:35 [facility] ED Fall Risk Assessment (Adult) Score/Fall Risk Level 3 or more points = High eh3 Risk Oriented to surroundings, Maintained a safe environment, Educated pt \T\ family on fall prevention, incl call for assistance when getting out of bed, Assessed \T\ reinforced patient's understanding of fall precautions, Provided non-skid footwear, Hourly rounding (assess needs \T\ fall precautionary measures) done, Used ambulatory aids as needed (educated on \T\ assisted with). Abuse screen: Denies threats or abuse. Denies injuries from another. Nutritional screening: No deficits noted. Tuberculosis screening: No symptoms or risk factors identified. Assessment: 19:35 General: Appears in no apparent distress. uncomfortable, Behavior is cooperative. Pain: eh3 Complains of pain in head. Neuro: Level of Consciousness is awake, obeys commands, Oriented to person. Cardiovascular: Capillary refill < 3 seconds Patient's skin is warm and dry. Rhythm is sinus rhythm. Respiratory: Airway is patent Trachea midline Respiratory effort is even, unlabored, Respiratory pattern is regular, symmetrical. GI: Abdomen is round non-distended. Injury Description: Abrasion sustained to right parietal area is bleeding, dirty. 20:30 Reassessment: Patient appears in no apparent distress at this time. Patient and/or 3 family updated on plan of care and expected duration. Pain level reassessed. Patient is alert, oriented x 3, equal unlabored respirations, skin warm/dry/pink. 21:27 Reassessment: Patient and/or family updated on plan of care and expected duration. Pain vc1 level reassessed. daughter on her way. Vital Signs: 19:34 BP 135 / 96; Pulse 82; Resp 18; Temp 97.5; Pulse Ox 95% on R/A; Weight 72.12 kg; Height pf1 5 ft. 4 in. ; Pain 0/10; 20:15 BP 130 / 106; Pulse 73; Resp 18; Pulse Ox 98% on R/A; eh3 21:30 BP 128 / 82; Pulse 70; Resp 17; Pulse Ox 99% ; vc1 19:34 Body Mass Index 27.29 (72.12 kg, 162.56 cm) pf1 19:34 Pain Scale: Adult pf1 ED Course: 19:33 Patient arrived in ED. kb 19:33 Yamilka Martin FNP-C [facility] kb 19:33 Luis Daniel Kat MD is Attending Physician. kb 19:35 Patient has correct armband on for positive identification. Bed in low position. Call 3 light in reach. Side rails up X2. Client placed on continuous cardiac and pulse oximetry monitoring. NIBP monitoring applied. 19:37 Yamilka Andrade, RN is Primary Nurse. eh3 19:37 Triage completed. pf1 19:47 CT Head C Spine In Process Unspecified. EDMS 19:59 Shoulder Right (2 View) XRAY In Process Unspecified. EDMS 20:15 Wound care: to abrasion, located on scalp was cleaned with Hibiclens, irrigated with eh3 normal saline, Patient tolerated well. 21:30 Patient did not have IV access during this emergency room visit. vc1 21:31 Arm band placed on right wrist. vc1 21:47 No provider procedures requiring assistance completed. vc1 Administered Medications: No medications were administered Medication: 21:31 VIS not applicable for this client. vc1 Outcome: 21:38 Discharge ordered by . kb 21:49 Discharged to home via wheelchair, with family. vc1 21:49 Condition: good 21:49 Discharge instructions given to family, Instructed on discharge instructions, follow up and referral plans. wound care, Demonstrated understanding of instructions, follow-up care, wound care. 21:49 Patient left the ED. vc1 Signatures: Dispatcher [employer] EDVA Yamilka Martin, SILVER MINER BLASTING-C SILVER MINER BLASTING-CkKathryn Workman RN RN vc1 Yamilka Andrade, TEE OLIVEIRA 3 Renee mansfield RN RN pf1 Corrections: (The following items were deleted from the chart) 20:19 20:18 Wound care: to abrasion, located on scalp was cleaned with Hibiclens, irrigated eh3 with normal saline, Patient tolerated well. eh3 20:20 20:00 Wound care: to abrasion, located on scalp was cleaned with Hibiclens, irrigated eh3 with normal saline, Patient tolerated well. eh3
[2022-11-12 21:54] VITALS: TEMP 97.5
[2022-11-12 21:57] VITALS: BP 128/82; O2SAT 99
== END 2022-11-12 21:49 | disposition home or self-care (01) ==
LOC: ER 19:30
DX: S01.01XA Laceration without foreign body of scalp, initial encounter (principal); W01.0XXA Fall on same level from slipping, tripping and stumbling without subsequent striking against object, initial encounter
CPT/HCPCS: 70450; 72125; 99284

== ENCOUNTER 2022-11-30 13:21 | Emergency (ER) | payer OTHER, SELFPAY ==
--- OUTSIDE RECORDS SUMMARY | 2022-11-30 13:44 | XMS REPORT | Continuity of Care Document ---
:1960 Author Organization [facility] t Address [address] [facility] [address] [place] [address] Care Team Providers Name Role Phone Chelsea Virk Primary Care Physician LIBORIO SORENSON Attending Clinician Unavailable PERCY HEARN Attending Clinician Unavailable PERCY HEARN Attending Clinician Unavailable Percy Hearn MD Attending Clinician Doctor Unassigned, [place] Attending Clinician Unavailable MARCK FOSTER Attending Clinician Unavailable Gianfranco Martin MD Attending Clinician [phone] Layne Prieto MD Attending Clinician [phone] Marck Foster MD Attending Clinician [phone] RICH CHIANG Attending Clinician Unavailable Aditya [...] 21:50:00 l 10/30/2014 03:39: Sebastian balbuena 00 [facility] No known No known Disease Unive rs active active ity of problems problems 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 Vitamin D Vitamin D Problem Active Com mon deficiency deficiency Sp timo [facility] Uncontroll Uncontroll Problem Active C ommon ed type 2 ed type 2 Spir it diabetes diabetes - [facility] mellitus mellitus St without without [facility] complicati complicati Me dical on, on, Center without without long-term long-term current current use of use of insulin insulin Other Other Problem Active Common chronic chronic Spirit pain pain [facility] Hyperlipid Hyperlipid Problem Active C ommon emia emia [facility] Hypothyroi Hypothyroi Problem Active C ommon dism dism [facility] Dizziness Dizziness Problem Active Com mon [facility] Hypertensi Hypertensi Problem Active C ommon on on [facility] Depression Depression Problem Active C ommon [facility] Allergic Allergic Problem Active Commo n rhinitis, rhinitis, Spir it seasonal seasonal [facility] Allergies, Adverse Reactions, Alerts Allergy Allergy [...] reaction 00 Medica l ics) s Branch Sulfa Adverse Active Info Not Common Reaction Available Spiri t - [facility] Bactrim Bactrim Active Nikolai Collado Family History Family Member Diagnosis Comments Start Date Stop Date Source Natural father Alcohol abuse [facility] Natural father Stroke [facility] Natural mother Stroke [facility] Natural sister Diabetes [facility] Social History Social Habit Start Date Stop Date Quantity Comments Source History of tobacco Cigarette Smoker [facility] use Medical Center History SDOH [facility] Alcohol Frequency [facility] History SDOH [facility] Alcohol Std Drinks Medica l Center History SDOH [facility] Alcohol Binge Medical [address] History SDOH [facility] Transport Non-Med Medical Center History SDOH [facility] Housing Places Medical Ce nter Lived Exposure to 2022-06-12 2022-06-22 Not sure University of SARS-CoV-2 (event) 00:00:00 14:30:00 [facility] Alcohol intake 2022-05-31 2022-05-31 [facility] alcohol [facility] Center (finding) History OHOH 2022-05-31 2022-05-[address] [facility] Transport [...] Carmen kes exposure 00:00:00 00:00:00 tobacco non-user [facility] Center Cigarette 2018-12-07 2018-12-[address] [facility] pack-years 00:00:00 00:00:00 Medical Center Social History 2014-10-30 2014-10-30 [facility] 10:31:19 10:31:19 Cigarettes smoked 2010-12-14 2010-12-14 Univers ity of current (pack per 00:00:00 00:00:00 [facility] ) - Reported Branch Sex Ass[birth year] At [birth year] Universit y of 00:00:00 00:00:00 [facility] Smoking Status Start Date Stop Date Source Occasional tobacco smoker 2022-05-30 00:00:00 [facility] Smokes tobacco daily 2010-12-14 00:00:00 Univers ity of [facility] Medications Ordered Filled Start Stop Current Ordering [...] 00 :00 by mouth Center daily. clopidogreL 2021-2022- No 75mg QD Take [address] [...] QD Take [address] (PLAVIX) 75 08-01 tablet (75 L ukes mg tablet 00:00: 23:59 mg total) Me dical 00 :00 by mouth Center daily. folic acid 2021-07- No 1mg QD Take [address] (FOLVITE) 08-01 tablet (1 Carmen kes MG tablet [...] QD Take [address] e 07-31 by mouth Lukes (PROTONIX) 19:40: daily. Medic al 20 MG 35 Center tablet citalopram 2021-07 Yes 40mg QD Take [address] (CeleXA) 40 07-31 by mouth Luke s MG tablet 19:40: [...] 39 :00 (two) Center times daily. ranitidine 2021-07 No 150mg Q.5D Take [address] (ZANTAC) 1-27 11-27 mg by Lukes 150 MG 15:20: 00:00 mouth 2 Medical tablet 39 :00 (two) Center times daily. ranitidine 2021-07 No 150mg Q.5D Take [address] (ZANTAC) 1-27 11-27 mg by Lukes 150 MG 15:20: 00:00 mouth 2 Medical tablet 39 :00 (two) Center times daily. potassium 2021-07- No Take by [facility] gluconate - 11-27 mouth. Lukes 550 mg (90 15:20: 00:00 Medica l mg) Tab 33 :00 Center potassium 2021-07- No Take by [facility] gluconate -27 11-27 mouth. Lukes 550 mg (90 15:20: 00:00 Medica l mg) Tab 33 :00 Center potassium 2021-07- No Take by [facility] gluconate 1-27 11-27 mouth. Lukes 550 mg (90 15:20: 00:00 Medica l mg) Tab 33 :00 Center potassium 2021-07- No Take by [facility] gluconate -27 11-27 mouth. Lukes 550 mg (90 15:20: 00:00 Medica l mg) Tab 33 :00 [place] potassium 2021-07- No Take by [facility] gluconate 07-30 mouth. Lukes 550 mg (90 15:20: 00:00 Medica l mg) Tab 33 :00 [place] potassium 2021-07- No Take by [facility] gluconate 07-30 mouth. Lukes 550 mg (90 15:20: 00:00 Medica l mg) Tab 33 :00 [place] potassium 2021-07- No Take by [facility] gluconate 07-30 mouth. Lukes 550 mg (90 15:20: 00:00 Medica l mg) Tab 33 :00 [place] potassium 2021-07- No Take by [facility] gluconate 07-30 mouth. Lukes 550 mg (90 15:20: 00:00 Medica l mg) Tab 33 :00 [place] omeprazole 2021-07- No 40mg QD Take [address] (PRILOSEC) 07-30 by mouth Luke s 40 MG 15:18: 00:00 daily. Medical capsule 02 :00 [place] omeprazole 2021-07- No 40mg QD Take [address] (PRILOSEC) 07-30 by mouth Luke s 40 MG 15:18: 00:00 daily. Medical capsule 02 :00 [place] omeprazole 2021-07- No 40mg QD Take [address] (PRILOSEC) 07-30 by mouth Luke s 40 MG 15:18: 00:00 daily. Medical capsule 02 :00 [place] omeprazole 2021-07- No 40mg QD Take [address] (PRILOSEC) 07-30 by mouth Luke s 40 MG 15:18: 00:00 daily. Medical capsule 02 :00 [place] omeprazole 2021-07- No 40mg QD Take [address] (PRILOSEC) 07-30 by mouth Luke s 40 MG 15:18: 00:00 daily. Medical capsule 02 :00 [place] omeprazole 2021-07- No 40mg QD Take [address] (PRILOSEC) 07-30 by mouth Luke s 40 MG 15:18: 00:00 daily. Medical capsule 02 :00 [place] omeprazole 2021-07- No 40mg QD Take [address] (PRILOSEC) 07-30 by mouth Luke s 40 MG 15:18: 00:00 daily. Medical capsule 02 :00 [place] omeprazole 2021-07- No 40mg QD Take [address] (PRILOSEC) 07-30 by mouth Luke s 40 MG 15:18: 00:00 daily. Medical capsule 02 :00 [place] TAKE 1 2021-1 No TABLET 0-12 DAILY. 00:00: 00 TAKE 1 2021-1 No TABLET 0-12 DAILY. 00:00: 00 Dose 2-0 No Unknown 4-27 00:00: 00 Dose 2-0 No Unknown 4-27 00:00: 00 Dose 2022-0 [...] 2022-0 No Unknown 1-22 00:00: 00 cetirizine 2021-0 No 1mg 10 [...] 25 8-12 mg tablet 00:00: 00 fenofibrate 1-0 No 1mg nanocrystal 8-12 lized 145 00:00: mg tablet 00 citalopram 1-0 No 1mg 40 mg 8-12 tablet 00:00: [...] 6-08 disintegrat 00:00: ing tablet 00 ondansetron 1-0 No 1mg 8 mg 6-08 disintegrat 00:00: ing tablet 00 ondansetron 1-0 No 1mg 8 mg 6-08 [...] Flagyl 500 1-0 No 1mg mg tablet 3-05 00:00: 00 Flagyl 500 1-0 No 1mg mg tablet 3-05 00:00: 00 Flagyl 500 1-0 No 1mg mg tablet 3-05 00:00: 00 Levemir 2019-1 No (3 mL) FlexTouch 2-29 U-100 00:00: Insulin 100 00 unit/mL (3 mL) subcutaneou s pen fenofibrate 2019-1 No 1mg nanocrystal 2-29 lized 145 00:00: mg tablet 00 hydrochloro 2019-1 No 1mg thiazide 25 2-29 mg tablet 00:00: 00 amlodipine 2019-1 No 1mg 10 mg 2-29 tablet 00:00: 00 citalopram 2020-1 No 1mg 40 mg 2-29 tablet 00:00: 00 carvedilol 2019-1 No 1mg 12.5 mg 2-29 tablet 00:00: 00 glimepiride 2019-1 No 1mg 4 mg tablet 2-29 00:00: 00 methocarbam 2019-1 No 1mg ol 750 mg 2-29 tablet 00:00: 00 doxepin 6 2019- No 1mg mg tablet 2- 00:00: 00 atorvastati 2019- No 1mg n 40 mg 2-29 tablet 00:00: 00 omeprazole 2019- No 1mg 40 mg 2-29 capsule,del 00:00: [...] 40 mg 2-29 tablet 00:00: 00 carvedilol 2019- No 1mg 12.5 mg 2-29 tablet 00:00: 00 glimepiride 2019-07 No 1mg 4 mg tablet 2- 00:00: 00 methocarbam 2019-07 No 1mg ol 750 mg 2-29 tablet 00:00: 00 doxepin 6 2019-07 No 1mg mg tablet 2 00:00: 00 atorvastati 2019-07 No 1mg n 40 mg 2-29 tablet 00:00: 00 omeprazole 2019-07 No 1mg 40 mg 2- capsule,del 00:00: ayed 00 release Levemir 2019-07 [...] 40 mg 2-29 tablet 00:00: 00 carvedilol 2019- No 1mg 12.5 mg 2-29 tablet 00:00: 00 glimepiride 2019- No 1mg 4 mg tablet 2-29 00:00: [...] 12.5 mg 1-03 tablet 00:00: 00 glimepiride 2020-1 No 1mg 4 mg tablet 1-03 00:00: 00 methocarbam 2019- No 1mg ol 750 mg 1-03 tablet 00:00: 00 doxepin 6 2019- No 1mg mg tablet 1-03 00:00: 00 atorvastati 2019- No 1mg n 40 mg 1-03 tablet 00:00: 00 omeprazole 2019- No 1mg 40 mg 1-03 capsule,del 00:00: ayed 00 release Levemir 2019- No (3 mL) FlexTouch 1-03 U-100 00:00: Insulin 100 00 unit/mL (3 mL) subcutaneou s pen citalopram 2019- No 1mg 40 mg 1-03 tablet 00:00: 00 amlodipine 2019- No 1mg 10 mg 1-03 tablet 00:00: 00 hydrochloro 2019- No 1mg thiazide 25 1-03 mg tablet 00:00: 00 metformin 2019- No 2mg ER 750 mg 1-03 tablet,exte 00:00: nded 00 release 24 hr carvedilol 2019- No 1mg 12.5 mg 1-03 tablet 00:00: 00 glimepiride 2019- No 1mg 4 mg tablet 07-06 00:00: 00 methocarbam 2019- No 1mg ol 750 mg 1-03 tablet 00:00: 00 doxepin 6 2019- No 1mg mg tablet 03 00:00: 00 atorvastati 2019- No 1mg n 40 mg 1-03 tablet 00:00: 00 omeprazole 2019- No 1mg 40 mg 1-03 capsule,del 00:00: ayed 00 release Levemir 2019- No (3 mL) FlexTouch 1-03 U-100 00:00: Insulin 100 00 unit/mL (3 mL) subcutaneou s pen citalopram 2019- No 1mg 40 mg 1-03 tablet 00:00: 00 amlodipine 2019- No 1mg 10 mg 1-03 tablet 00:00: 00 hydrochloro 2019-1 No 1mg thiazide 25 1-03 mg tablet 00:00: 00 metformin 2019- No 2mg ER 750 mg 1-03 tablet,exte 00:00: nded 00 release 24 hr carvedilol 2019- No 1mg 12.5 mg 1-03 tablet 00:00: 00 glimepiride 2019-1 No 1mg 4 mg tablet 07-06 00:00: 00 methocarbam 2019-1 No 1mg ol 750 mg 1-03 tablet 00:00: 00 doxepin 6 2019-1 No 1mg mg tablet 07-06 00:00: 00 atorvastati 2019-1 No 1mg n [...] unit/mL (3 mL) subcutaneou s pen metformin 2019-0 No 2mg ER 750 mg 8-25 tablet,exte [...] 00 omeprazole 2020-0 No 1mg 40 mg 2- capsule,del 00:00: ayed 00 release Flagyl 500 2020-0 No 1mg mg tablet 08-10 00:00: 00 Flagyl 500 2020-0 No 1mg mg tablet 08-10 00:00: 00 Flagyl 500 2020-0 No 1mg mg tablet 08-10 00:00: 00 Levemir 2020-0 No (3 mL) [...] 00:00: nded 00 release 24 hr metformin 2018-1 No 2mg ER 750 mg 2-31 tablet,exte 00:00: nded 00 release 24 hr amlodipine 2018-1 No 1mg 10 mg 2-10 tablet 00:00: 00 glimepiride 2018-1 No 1mg 4 mg tablet 2-10 00:00: 00 metformin 2018-1 No 1mg ER 500 mg 2-10 tablet,exte 00:00: nded 00 release 24 hr carvedilol 2018-1 No 1mg 12.5 mg 2-10 tablet 00:00: 00 metformin 2019-1 No 15mg ER 500 mg 2-10 tablet,exte 00:00: nded 00 release 24 hr mirtazapine 2019-1 No mg 30 mg 2-10 tablet 00:00: 00 atorvastati 2018-1 No 1mg n 40 mg 2-10 tablet 00:00: 00 omeprazole 2019-1 No 1mg 40 mg 2-10 capsule,del 00:00: ayed 00 release amlodipine 2018-1 No 1mg 10 mg 2-10 tablet 00:00: 00 glimepiride 2018-1 No 1mg 4 mg tablet 2-10 00:00: 00 metformin 2019-1 No 1mg ER 500 mg 2-10 tablet,exte 00:00: nded 00 release 24 hr carvedilol 2019-1 No 1mg 12.5 mg 2-10 tablet 00:00: 00 metformin 2019-1 No 15mg ER 500 mg 2-10 tablet,exte 00:00: nded 00 release 24 hr mirtazapine 2019-1 No mg 30 mg 2-10 tablet 00:00: 00 atorvastati 2019-1 No 1mg n 40 mg 2-10 tablet 00:00: 00 omeprazole 2019-1 No 1mg 40 mg 2-10 capsule,del 00:00: ayed 00 release amlodipine 2018-1 No 1mg 10 mg 2-10 tablet 00:00: 00 glimepiride 2019-1 No 1mg 4 mg tablet 2-10 00:00: 00 metformin 2018- No 1mg ER 500 mg 2-10 tablet,exte 00:00: nded 00 release 24 hr carvedilol 2018-07 No 1mg 12.5 mg 2-10 tablet 00:00: 00 metformin 2018-07 No 15mg ER 500 mg 2-10 tablet,exte 00:00: nded 00 release 24 hr mirtazapine 2018- No mg 30 mg 2-10 tablet 00:00: 00 atorvastati 2018-07 No 1mg n 40 mg 2-10 tablet 00:00: 00 omeprazole 2018-07 No 1mg 40 mg 2-10 capsule,del 00:00: ayed 00 release acetaminoph 2018-07 Yes [id number] 1{tbl} Take 1 Univers en-codeine 0-13 tablet by ity of (TYLENOL-CO 00:00: mouth [place] DEINE #3) 00 every 4 Medical 300-30 mg (four) Branch tablet hours as needed for Pain (scale 1-3). acetaminoph 2018-07 Yes [id number] 1{tbl} Take 1 Univers en-codeine 0-13 tablet by ity of (TYLENOL-CO 00:00: mouth [place] DEINE #3) 00 every 4 Medical 300-30 mg (four) Branch tablet hours as needed for Pain (scale 1-3). acetaminoph 2018-07 Yes [id number] 1{tbl} Take 1 Univers en-codeine 0-13 tablet by ity of (TYLENOL-CO 00:00: mouth [place] DEINE #3) 00 every 4 Medical 300-30 mg (four) Branch tablet hours as needed for Pain (scale 1-3). acetaminoph 2018-07 Yes [id number] 1{tbl} Take 1 Univers en-codeine 0-13 tablet by ity of (TYLENOL-CO 00:00: mouth [place] DEINE #3) 00 every 4 Medical 300-30 mg (four) Branch tablet hours as needed for Pain (scale 1-3). acetaminoph 2018-07 Yes [id number] 1{tbl} Take 1 Univers en-codeine 0-13 tablet by ity of (TYLENOL-CO 00:00: mouth [place] DEINE #3) 00 every 4 Medical 300-30 mg (four) Branch tablet hours as needed for Pain (scale 1-3). amlodipine 2018- No 1mg 10 mg 0-01 tablet 00:00: 00 glimepiride 2018-1 No 1mg 1 mg tablet 0 00:00: 00 carvedilol 2019- No 1mg 12.5 mg 0-01 tablet 00:00: 00 mirtazapine 2019- No mg 30 mg 0-01 tablet 00:00: 00 amlodipine 2018- No 1mg 10 mg 0-01 tablet 00:00: 00 glimepiride 2018- No 1mg 1 mg tablet 0 00:00: 00 carvedilol 2018- No 1mg 12.5 mg 0-01 tablet 00:00: 00 mirtazapine 2018- No mg 30 mg 0-01 tablet 00:00: 00 amlodipine 2018- No 1mg 10 mg 0-01 tablet 00:00: 00 glimepiride 2018- No 1mg 1 mg tablet 0 00:00: 00 carvedilol 2018- No 1mg 12.5 mg 0-01 tablet 00:00: 00 mirtazapine 2018- No mg 30 mg 0-01 tablet 00:00: [...] 40 MG 15:47: daily. Medical capsule 46 [place] potassium Yes Take by [facility] gluconate 6-10 mouth. [facility]ukes 550 mg (90 15:47: Medical mg) Tab 46 [place] ranitidine Yes 150mg Q.5D Take [address] (ZANTAC) 6-10 mg by Lukes 150 MG 15:47: mouth 2 Medical tablet 46 (two) Center times daily. omeprazole Yes 40mg QD Take [address] (PRILOSEC) 6-10 by mouth Lukes 40 MG 15:47: daily. Medical capsule 46 [place] potassium Yes Take by [facility]I S t gluconate 6-10 mouth. Lukes 550 mg (90 15:47: Medical mg) Tab 46 [place] ranitidine Yes 150mg Q.5D Take [address] (ZANTAC) 6-10 mg by Lukes 150 MG 15:47: mouth 2 Medical tablet 46 (two) Center times daily. omeprazole Yes 40mg QD Take [address] (PRILOSEC) 6-10 by mouth Lukes 40 MG 15:47: daily. Medical capsule 46 [place] potassium Yes Take by [facility]I S t gluconate 6-10 mouth. Lukes 550 mg (90 15:47: Medical mg) Tab 46 [place] carvedilol Yes hypertensio 12.5mg Take [address] (COREG) 6-10 n tablet Lukes 12.5 MG 00:00: (12.5 mg Medica l tablet 00 total) by Center mouth 2 (two) times daily with breakfast and dinner. amLODIPine Yes 10mg QD Take 1 [facility] t (NORVASC) 6-10 tablet (10 Luke s 10 MG 00:00: mg total) Medical tablet 00 by mouth Center daily. glimepiride Yes 1mg Take [address] (AMARYL) 1 6-10 tablet (1 Luke s MG tablet 00:00: mg total) Med ical 00 by mouth Center every morning before breakfast. carvedilol Yes hypertensio 12.5mg Take 1 CHI [...] Medical tablet 00 by mouth Center nightly. carvedilol 2019-0 Yes hypertensio 12.5mg Take [address] (COREG) 6-10 n tablet Lukes 12.5 MG 00:00: (12.5 mg Medica l tablet 00 total) by Center mouth 2 (two) times daily with breakfast and dinner. amLODIPine Yes 10mg QD Take 1 [facility] t (NORVASC) 6-10 tablet (10 Luke s 10 MG 00:00: mg total) Medical tablet 00 by mouth Center daily. glimepiride 2018-0 Yes 1mg Take [address] (AMARYL) 1 6-10 tablet (1 Luke s MG tablet 00:00: mg total) Med ical 00 by mouth Center every morning before breakfast. glimepiride 2018-0 Yes 1mg Take [address] (AMARYL) [...] Take [address] n (LIPITOR) 6-04 13- tablet (40 L ukes 40 MG 00:00: [...] 00 :00 by mouth Center nightly. atorvastati 2019-0 2- No 40mg QD Take [address] n (LIPITOR) 6-04 13-28 tablet (40 L ukes 40 MG 00:00: 00:00 mg total) Medica l tablet 00 :00 by mouth Center nightly. atorvastati 2018-0 2- No 40mg QD Take [address] n (LIPITOR) 6- tablet (40 L ukes 40 MG 00:00: [...] mg - tablet,idalmis 00:00: yed release 00 carvedilol 2018-0 [...] Low 2018-0 No 1mg Dose 81 mg 8 tablet,idalmis 00:00: yed release 00 glimepiride 2018-0 [...] 1mg 12.5 mg 8- tablet 00:00: 00 nicotine 21 2018-0 No 1mg/24 mg/24 hr 8 hr daily 00:00: transdermal 00 patch nicotine [...] 1mg 1 mg tablet 02-07 00:00: 00 Metformin Metformin 2018-0 Yes Nancy 1 tablet Common HCl HCl 4-27 [place] with a Spirit 00:00: meal - [facility] 00 [facility] prednisone 2017-0 No 1mg 20 mg 5-11 [...] 6.25 mg 2-14 tablet 00:00: 00 lisinopril No 1mg 20 mg 2-14 tablet 00:00: 00 simvastatin 0 No 1mg 20 mg 2-14 tablet 00:00: 00 levothyroxi No 1mcg ne 25 mcg 2-14 tablet 00:00: 00 ERGOCALCIFE 2015-07 Yes Take by Uni vers ROL, 2-27 mouth. ity of VITAMIN D2, 15:40: [place] (VITAMIN D 10 Medical [place]) [place] POTASSIUM 2015-07 Yes Take by Unive rs ORAL 2-27 mouth. ity of 15:40: [address] SIMVASTATIN 2015-07 Yes Take by Uni vers ORAL 2-27 mouth. ity of 15:40: [address] doxazosin 1 2015-07 Yes 1mg Take 1 mg U nivers mg tablet 2- by mouth ity of 15:40: daily. [address] METFORMIN 2015-07 Yes Take by Unive rs HCL 2-27 mouth. ity of (METFORMIN 15:40: [place] ORAL) [address] [place] [address] ERGOCALCIFE 2015-07 Yes Take by Uni vers ROL, 2-27 mouth. ity of VITAMIN D2, 15:40: [place] (VITAMIN D 10 Medical [place]) [place] POTASSIUM 2015-07 Yes Take by Unive rs ORAL 2-27 mouth. ity of 15:40: [address] SIMVASTATIN 2015-07 Yes Take by Uni vers ORAL 2-27 mouth. ity of 15:40: [address] doxazosin 1 2015-07 Yes 1mg Take 1 mg U nivers mg tablet 2- by mouth ity of 15:40: daily. [address] METFORMIN 2015-07 Yes Take by Unive rs HCL 2-27 mouth. ity of (METFORMIN 15:40: [place] ORAL) [address] [place] [address] ERGOCALCIFE 2015-07 Yes Take by Uni vers ROL, 2-27 mouth. ity of VITAMIN D2, 15:40: [place] (VITAMIN D 10 [facility]) [place] POTASSIUM 2015-07 Yes Take by Unive rs ORAL 2-27 mouth. ity of 15:40: [address] SIMVASTATIN 2015-07 Yes Take by Uni vers ORAL 2-27 mouth. ity of 15:40: [address] doxazosin 1 2015-07 Yes 1mg Take 1 mg U nivers mg tablet 2-27 by mouth ity of 15:40: daily. [address] METFORMIN 2015-07 Yes Take by Unive rs HCL 2-27 mouth. ity of (METFORMIN 15:40: [place] ORAL) [address] [place] [address] ERGOCALCIFE 2015-07 Yes Take by Uni vers ROL, 2-27 mouth. ity of VITAMIN D2, 15:40: [place] (VITAMIN D [address] [place] [address]) [place] POTASSIUM 2015-07 Yes Take by Unive rs ORAL 2-27 mouth. ity of 15:40: [address] SIMVASTATIN 2015-07 Yes Take by Uni vers ORAL 2-27 mouth. ity of 15:40: [address] doxazosin 1 2015-07 Yes 1mg Take 1 mg U nivers mg tablet 2- by mouth ity of 15:40: daily. [address] METFORMIN 2015-07 Yes Take by Unive rs HCL 2-27 mouth. ity of (METFORMIN 15:40: [place] ORAL) [address] [place] [address] ERGOCALCIFE 2015-07 Yes Take by Uni vers ROL, 2-27 mouth. ity of VITAMIN D2, 15:40: [place] (VITAMIN D [address] [place] [address]) [place] POTASSIUM 2015-07 Yes Take by Unive rs ORAL 2-27 mouth. ity of 15:40: [address] SIMVASTATIN 2015-07 Yes Take by Uni vers ORAL 2-27 mouth. ity of 15:40: [address] doxazosin 1 2015-07 Yes 1mg Take 1 mg U nivers mg tablet - by mouth ity of 15:40: daily. [address] METFORMIN 2015-07 Yes Take by Unive rs HCL 2-27 mouth. ity of (METFORMIN 15:40: [place] ORAL) [address] [place] [address] diclofenac 2015-07 No 1mg sodium 75 2-21 mg 00:00: tablet,idalmis 00 yed release diclofenac 2015-07 No 1mg sodium 75 2-21 mg 00:00: tablet,idalmis 00 yed release diclofenac 2015-07 No 1mg sodium 75 2-21 mg 00:00: tablet,idalmis 00 yed release hydrochloro No 1mg thiazide 9-20 12.5 mg 00:00: tablet 00 doxazosin 1 No 1mg mg tablet 9-20 00:00: 00 metformin No 1mg 1,000 mg 9-20 tablet 00:00: 00 carvedilol No 1mg 6.25 mg 9-20 tablet 00:00: [...] doxazosin 1 2016-0 No 1mg mg tablet 6 00:00: 00 lisinopril 2016-0 No 1mg 20 mg 6-08 tablet 00:00: 00 carvedilol 2016-0 No 1mg 6.25 mg 6-08 tablet 00:00: 00 levothyroxi 2016-0 No 1mcg ne 25 mcg 6-08 tablet 00:00: 00 doxazosin 1 2016-0 No 1mg mg tablet 6 00:00: 00 lisinopril 2016-0 No 1mg 20 [...] doxazosin 2 2016-0 No 1mg mg tablet 523 00:00: 00 levothyroxi 2016-0 No 1mcg ne [...] unit 2-15 capsule 00:00: 00 Vitamin D2 2015-0 No 1unit 50,000 unit 2-15 capsule 00:00: 00 Vitamin D2 2015-0 No 1unit 50,000 unit 2-15 capsule 00:00: 00 amoxicillin 2015-0 No 1mg 500 mg 2-12 tablet 00:00: 00 amoxicillin 2015-0 No 1mg 500 mg 2-12 tablet 00:00: 00 amoxicillin 2015-0 No 1mg 500 mg 2-12 tablet 00:00: 00 carvedilol 2014- No 1mg 12.5 mg 2-10 tablet 00:00: 00 lisinopril 2014-07 No 1mg 20 mg 2-10 tablet 00:00: 00 metformin 2014- No 1mg 1,000 mg 2-10 tablet 00:00: 00 simvastatin 2014- No 1mg 20 mg 2-10 tablet 00:00: 00 carvedilol 2014-07 No 1mg 12.5 mg 2-10 tablet 00:00: 00 lisinopril 2014-07 No 1mg 20 mg 2-10 tablet 00:00: 00 metformin 2014- No 1mg 1,000 mg 2-10 tablet 00:00: 00 simvastatin 2014- No 1mg 20 mg 2-10 tablet 00:00: 00 carvedilol 2014-07 No 1mg 12.5 mg 2-10 tablet 00:00: 00 lisinopril 2014-07 No 1mg 20 mg 2-10 tablet 00:00: 00 metformin 2014-1 No 1mg 1,000 mg 2-10 tablet 00:00: 00 simvastatin 2014- No 1mg 20 mg 2-10 tablet 00:00: 00 lisinopril 2014-07 No 1mg 20 mg 1-14 tablet 00:00: 00 lisinopril 2014-07 No 1mg 20 mg 1-14 tablet 00:00: 00 carvedilol 2014- No 1mg 12.5 mg 1-14 tablet 00:00: 00 lisinopril 2014-07 No 1mg 20 mg 1-14 tablet 00:00: 00 lisinopril 2014-07 No 1mg 20 mg 1-14 tablet 00:00: 00 carvedilol 2014-07 No 1mg 12.5 mg 1-14 tablet 00:00: 00 lisinopril 2015-1 No 1mg 20 mg 1-14 tablet 00:00: 00 carvedilol 2015-1 No 1mg 12.5 mg 1-14 tablet 00:00: 00 lisinopril 2015- No 1mg 20 mg 1-14 tablet 00:00: 00 proMETHazin 2015-0 Yes 25mg Take 1 Tab Univers e 8-10 by mouth ity of (PHENERGAN) 00:00: every 6 [place] as 25 mg 00 (six) Medical tablet hours as Branch needed for Nausea and Vomiting (N/V). Loperamide 2015-0 Yes 2mg Take 1 Tab U nivers HCl 8-10 by mouth 4 ity of (IMODIUM 00:00: () [place] A-D) 2 mg 00 times Medical [...] by mouth 4 ity of (IMODIUM 00:00: () [place] A-D) 2 mg 00 times Medical Tab tablet daily. Branch proMETHazin 2015-0 Yes 25mg Take 1 Tab Univers e 8-10 by mouth ity of (PHENERGAN) 00:00: every 6 [place] as 25 mg 00 (six) Medical tablet hours as Branch needed for Nausea and Vomiting (N/V). Loperamide 2015-0 Yes 2mg Take 1 Tab U nivers HCl 8-10 by mouth 4 ity of (IMODIUM 00:00: ([facility]) [place] A-D) 2 mg 00 times Medical Tab tablet daily. Branch proMETHazin 2015-0 Yes 25mg Take 1 Tab Univers e 8-10 by mouth ity of (PHENERGAN) 00:00: every 6 [place] as 25 mg 00 (six) Medical tablet hours as Branch needed for Nausea and Vomiting (N/V). Loperamide 2015-0 Yes 2mg Take 1 Tab U nivers HCl 8-10 by mouth 4 ity of (IMODIUM 00:00: () [place] A-D) 2 mg 00 times Medical Tab tablet daily. Branch proMETHazin 2015-0 Yes 25mg Take 1 Tab Univers e 8-10 by mouth ity of (PHENERGAN) 00:00: every 6 [place] as 25 mg 00 (six) Medical tablet hours as Branch needed for Nausea and Vomiting (N/V). Loperamide Yes 2mg Take 1 Tab U nivers HCl 8-10 by mouth 4 ity of (IMODIUM 00:00: (four) [place] A-D) 2 mg 00 times Medical Tab [...] 23 5-01 (Same as: l 17:21: Pneumovax [place] ) Refrigerat e Pneumovax No Notes: Memori a 23 5-01 (Same as: l 17:21: Pneumovax [place] ) Refrigerat e Pneumovax No Notes: Memori a 23 5-01 (Same as: l 17:21: Pneumovax [place] ) Refrigerat e Pneumovax No Notes: Memori a 23 5-01 (Same as: l 17:21: Pneumovax [place] ) Refrigerat e Pneumovax No Notes: Memori a 23 5-01 (Same as: l 17:21: Pneumovax [place] ) Refrigerat e Pneumovax No Notes: Memori a 23 5-01 (Same as: l 17:21: Pneumovax [place] ) Refrigerat e Pneumovax No Notes: Memori a 23 5-01 (Same as: l 17:21: Pneumovax [place] ) Refrigerat e Pneumovax No Notes: Memori a 23 5-01 (Same as: l 17:21: Pneumovax [place] ) Refrigerat e Pneumovax No Notes: Memori a 23 11-01 (Same as: l 17:21: Pneumovax [place] ) Refrigerat e tramadol Yes 100.4 F, [...] ia 4-30 (Same as: l 14:00: Prinivil, [place] 00 Zestril) Hydrochloro No Notes: Abad charlene [...] thiazide 4-30 (Same as: l 14:00: Microzide) [place] 00 With food. pneumococca Yes Notes: Abad [...] ia 4-30 (Same as: l 14:00: Prinivil, [place] 00 Zestril) Hydrochloro No Notes: Abad charlene [...] ia 4-30 (Same as: l 14:00: Prinivil, [place] 00 Zestril) Hydrochloro No Notes: Abad charlene [...] thiazide 4-30 (Same as: l 14:00: Microzide) [place] 00 With food. pneumococca Yes Notes: Abad [...] ia 4-30 (Same as: l 14:00: Prinivil, [place] 00 Zestril) Hydrochloro No Notes: Abad charlene [...] ia 4-30 (Same as: l 14:00: Prinivil, [place] 00 Zestril) Hydrochloro No Notes: Abad charlene thiazide 4-30 (Same as: l 14:00: Microzide) [place] 00 With food. pneumococca Yes Notes: Abad [...] ia 4-30 (Same as: l 14:00: Prinivil, [place] 00 Zestril) Hydrochloro No Notes: Abad charlene [...] thiazide 4-30 (Same as: l 14:00: Microzide) [place] 00 With food. pneumococca Yes Notes: Abad [...] ia 4-29 Give with l 22:00: food. (Same As: Coreg) carvedilol No Notes: Memor ia 4-29 Give with l 22:00: food. (Same As: Coreg) carvedilol No Notes: Memor ia 4-29 Give with l 22:00: food. [place] 00 (Same As: Coreg) carvedilol No Notes: Memor ia 4-29 Give with l 22:00: food. [place] 00 (Same As: Coreg) carvedilol No Notes: Memor ia 4-29 Give with l 22:00: food. [place] 00 (Same As: Coreg) carvedilol No Notes: Memor ia 4-29 Give with l 22:00: food. [place]ias 00 (Same As: Coreg) carvedilol No Notes: Memor ia 4-29 Give with l 22:00: food. (Same As: Coreg) carvedilol No Notes: Memor ia 4-29 Give with l 22:00: food. [place] 00 (Same As: Coreg) carvedilol No Notes: Memor ia 4-29 Give with l 22:00: food. (Same As: Coreg) carvedilol No Notes: Memor ia 4-29 Give with l 22:00: food. [place] 00 (Same As: Coreg) carvedilol No Notes: Memor ia 4-29 Give with l 22:00: food. [place] 00 (Same As: Coreg) carvedilol No Notes: Memor ia 4-29 Give with l 22:00: food. [place] 00 (Same As: Coreg) K-Dur 20 No Notes: Memoria 4-29 (Same as: l 15:30: K-Dur 20) [place] 00 "Do Not Crush" With food and full glass of water K-Dur 20 No Notes: Memoria 4-29 (Same as: l 15:30: K-Dur 20) [place] 00 "Do Not Crush" With food and full glass of water K-Dur 20 No Notes: Memoria 4-29 (Same as: l 15:30: K-Dur 20) [place] 00 "Do Not Crush" With food and full glass of water K-Dur 20 No Notes: Memoria 4-29 (Same as: l 15:30: K-Dur 20) [place] 00 "Do Not Crush" With food and full glass of water K-Dur 20 No Notes: Memoria 4-29 (Same as: l 15:30: K-Dur 20) [place] 00 "Do Not Crush" With food and full glass of water K-Dur 20 No Notes: Memoria 4-29 (Same as: l 15:30: K-Dur 20) [place] 00 "Do Not Crush" With food and [...] 4-29 (Same as: l 15:30: K-Dur 20) [place] 00 "Do Not Crush" With food and full glass of water K-Dur 20 No Notes: Memoria 4-29 (Same as: l 15:30: K-Dur 20) [place] 00 "Do Not Crush" With food and full glass of water K-Dur 20 No Notes: Memoria 4-29 (Same as: l 15:30: K-Dur 20) [place] 00 "Do Not Crush" With food and full glass of water K-Dur 20 No Notes: Memoria 4-29 (Same as: l 15:30: K-Dur 20) [place] 00 "Do Not Crush" With food and [...] Memoria 10-30 (Same as: l 11:34: Zofran) [place] 00 MEDICATION WASTE Product Size: 4 mg Product Wasted: ___ mg Zofran No Notes: Memoria 4-29 (Same as: l 11:34: Zofran) [place] 00 MEDICATION WASTE Product Size: 4 mg Product Wasted: ___ mg Zofran No Notes: Memoria 4-29 (Same as: l 11:34: Zofran) [place] 00 MEDICATION WASTE Product Size: 4 mg Product Wasted: ___ mg Morphine No Notes: Memoria 4-29 (Same l 11:26: as:MORPhin [place] 00 e Sulfate) Morphine No Notes: Memoria 4-29 (Same l 11:26: as:MORPhin [place] 00 e Sulfate) Morphine No Notes: Memoria 4-29 (Same l 11:26: as:MORPhin [place] 00 e Sulfate) Morphine No Notes: Memoria 4-29 (Same l 11:26: as:MORPhin [place] 00 e Sulfate) Morphine No Notes: Memoria 4-29 (Same l 11:26: as:MORPhin [place] 00 e Sulfate) Morphine No Notes: Memoria 4-29 (Same l 11:26: as:MORPhin [place] 00 e Sulfate) Morphine No Notes: Memoria 4-29 (Same l 11:26: as:MORPhin [place] 00 e Sulfate) Morphine No Notes: Memoria 4-29 (Same l 11:26: as:MORPhin [place] 00 e Sulfate) Morphine No Notes: Memoria 4-29 (Same l 11:26: as:MORPhin [place] 00 e Sulfate) Morphine No Notes: Memoria 4-29 (Same l 11:26: as:MORPhin [place] 00 e Sulfate) Morphine No Notes: Memoria 4-29 (Same l 11:26: as:MORPhin [place] 00 e Sulfate) Morphine No Notes: Memoria 4-29 (Same l 11:26: as:MORPhin [place] 00 e Sulfate) Dilaudid No 1 mg, 1 Memori a 4-29 mL, Route: l 11:25: IVP, Drug [place] 00 form: INJ, Q6H, Dosing Weight 81.932, [...] 4-29 mL, Route: l 11:25: IVP, Drug [place] 00 form: INJ, Q6H, Dosing Weight 81.932, kg, PRN Pain Score 7-10, Priority: STAT, Start date: 10/30/14 6:25:00, Duration: 30 day, Stop date: 11/29/14 6:24:00 Dilaudid 2015-0 No 1 mg, 1 Memori a 4-29 mL, Route: l 11:25: IVP, Drug [place] 00 form: INJ, Q6H, Dosing Weight 81.932, kg, PRN Pain Score 7-10, Priority: STAT, Start date: 10/30/14 6:25:00, Duration: 30 day, Stop date: 11/29/14 6:24:00 Dilaudid 2015-0 No 1 mg, 1 Memori a 4-29 mL, Route: l 11:25: IVP, Drug [place] 00 form: INJ, Q6H, Dosing Weight 81.932, [...] a 4-29 (Same as: l 11:23: Normodyne, [place] 00 Trandate) Push over 2 minutes Give [...] a 4-29 (Same as: l 11:23: Normodyne, [place] 00 Trandate) Push over 2 minutes Give [...] a 4-29 (Same as: l 11:23: Normodyne, [place] 00 Trandate) Push over 2 minutes Give [...] a 4-29 (Same as: l 11:23: Normodyne, [place] 00 Trandate) Push over 2 minutes Give [...] a 4-29 (Same as: l 11:23: Normodyne, [place] 00 Trandate) Push over 2 minutes Give [...] 12.5 mg = Me moria 12.5 mg 4- 1 tab, PO, l oral tablet 10:34: BID, 0 Herm debbie 00 Refill(s) Hydrochloro No 12.5 mg, Me moria thiazide 4-29 PO, Daily, l 10:34: 0 Tobias 00 Refill(s) Lisinopril Yes 20 mg, PO, M emoria 4-29 Daily, 0 l 10:34: Refill(s) [place] 00 carvedilol Yes 12.5 mg = Me [...] oral tablet 10:34: BID, 0 Refill(s) Hydrochloro 2015-0 No 12.5 mg, Me moria thiazide - PO, Daily, l 10:34: 0 Refill(s) Lisinopril Yes 20 mg, PO, M emoria 10-30 Daily, 0 l 10:34: Refill(s) carvedilol Yes 12.5 mg = Me moria 12.5 mg 10-30 1 tab, PO, l oral tablet 10:34: BID, 0 Refill(s) Hydrochloro No 12.5 mg, Me moria thiazide -29 PO, Daily, l 10:34: 0 Refill(s) Lisinopril Yes 20 mg, PO, M emoria 10-30 Daily, 0 l 10:34: Refill(s) carvedilol Yes 12.5 mg = Me moria 12.5 mg 10-30 1 tab, PO, l oral tablet 10:34: BID, 0 Refill(s) Hydrochloro No 12.5 mg, Me moria thiazide - PO, Daily, l 10:34: 0 Refill(s) Lisinopril Yes 20 mg, PO, M emoria 10-30 Daily, 0 l 10:34: Refill(s) carvedilol Yes 12.5 mg = Me moria 12.5 mg 10-30 1 tab, PO, l oral tablet 10:34: BID, 0 Refill(s) Hydrochloro No 12.5 mg, Me moria thiazide - PO, Daily, l 10:34: 0 Refill(s) Lisinopril Yes 20 mg, PO, M emoria 10-30 Daily, 0 l 10:34: Refill(s) carvedilol Yes 12.5 mg = Me moria 12.5 mg 10-30 1 tab, PO, l oral tablet 10:34: BID, 0 Herm Refill(s) Hydrochloro No 12.5 mg, Me moria thiazide -29 PO, Daily, l 10:34: 0 Refill(s) Lisinopril Yes 20 mg, PO, M emoria 4-29 Daily, 0 l 10:34: Refill(s) carvedilol Yes 12.5 mg = Me moria 12.5 mg -29 1 tab, PO, l oral tablet 10:34: BID, 0 Refill(s) Hydrochloro No 12.5 mg, Me moria thiazide -29 PO, Daily, l 10:34: 0 Refill(s) Lisinopril Yes 20 mg, PO, M emoria -29 Daily, 0 l 10:34: Refill(s) carvedilol Yes 12.5 mg = Me moria 12.5 mg 10-30 1 tab, PO, l oral tablet 10:34: BID, 0 Refill(s) Hydrochloro No 12.5 mg, Me moria thiazide -29 PO, Daily, l 10:34: 0 Refill(s) Lisinopril Yes 20 mg, PO, M emoria -29 Daily, 0 l 10:34: Refill(s) lisinopril 0 [...] by mouth ity of tablet 00:00: daily. [address] hydrocodone Yes 1{tbl} Take 1 Tab Univers -acetaminop 6-14 by mouth ity of [place] ([place] 00:00: every 6 [place]) 5-325 mg 00 (six) Medical tablet hours as Branch needed for Pain. aspirin 81 Yes 81mg Take 1 Tab U nivers mg chewable 6-14 by mouth ity of tablet 00:00: daily. [place] [facility] hydrocodone Yes 1{tbl} Take 1 [...] by mouth ity of tablet 00:00: daily. [place] [facility] Branch hydrocodone Yes 1{tbl} Take 1 Tab Univers -acetaminop 6-14 by mouth ity of [place] ([place] 00:00: every 6 [place]) 5-325 mg 00 (six) Medical tablet hours as Branch needed for Pain. aspirin 81 Yes 81mg Take 1 Tab U nivers mg chewable 6-14 by mouth ity of tablet 00:00: daily. [place] [facility] Branch hydrocodone Yes 1{tbl} Take 1 Tab [...] [place] mg tablet 00 times Medical daily. [place] Immunizations Ordered Immunization Filled Immunization Date Status Commen ts Source Name Name Franklin Ramseyid-19 2022-03-24 Completed Vaccine (Aged 12 00:00:00 years and older) (Clinical Investigator) Moderna Covid-19 2022-03-24 Completed Vaccine (Aged 12 00:00:00 years and older) (Clinical Investigator) Moderna Covid-19 2022-03-24 Completed Vaccine (Aged 12 00:00:00 years and older) (Clinical Investigator) Moderna COVID-19 2020-11-18 Completed Vaccine 00:00:00 Moderna COVID-19 2020-11-18 Completed Vaccine 00:00:00 Moderna COVID-19 2020-11-18 Completed Vaccine 00:00:00 Moderna COVID-19 2020-10-21 Completed Vaccine 00:00:00 Moderna COVID-19 2020-10-21 Completed Vaccine 00:00:00 Moderna COVID-19 2020-10-21 Completed Vaccine 00:00:00 pneumococcal 2014-11-01 Completed [facility] 23-valent vaccine 18:41:00 [place] pneumococcal 2014-11-01 Completed [facility] 23-valent vaccine 18:41:00 [place] pneumococcal 2014-11-01 Completed [facility] 23-valent vaccine 18:41:00 [place] pneumococcal 2014-11-01 Completed [facility] 23-valent vaccine 18:41:00 [place] pneumococcal 2014-11-01 Completed [facility] 23-valent vaccine 18:41:00 [place] pneumococcal 2014-11-01 Completed [facility] 23-valent vaccine 18:41:00 [place] pneumococcal 2014-11-01 Completed [facility] 23-valent vaccine 18:41:00 [place] pneumococcal 2014-11-01 Completed [facility] 23-valent vaccine 18:41:00 [place] pneumococcal 2014-11-01 Completed [facility] 23-valent vaccine 18:41:00 [place] pneumococcal 2014-11-01 Completed [facility] 23-valent vaccine 18:41:00 [place] pneumococcal 2014-11-01 Completed [facility] 23-valent vaccine 18:41:00 [place] pneumococcal 2014-11-01 Completed [facility] 23-valent vaccine 18:41:00 [place] Vital Signs Vital Name Observation Time Observation Value Comments Source Systolic blood 2022-06-22 20:49:00 110 mm[Hg] Univer sity of pressure [facility] Diastolic blood 2022-06-22 20:49:00 75 mm[Hg] Unive rsity of [facility] Heart rate 2022-06-22 20:49:00 76 /min [facility] Body height 2022-06-22 20:49:00 162.6 cm [facility] Body weight 2022-06-22 20:49:00 74.163 kg [facility] BMI 2022-06-22 20:49:00 28.06 kg/m2 [facility] Oxygen saturation in 2022-06-22 20:49:00 96 /min [facility] blood by [facility] Pulse oximetry Branch HEIGHT 2022-05-29 [...] /min Systolic blood 2022-05-31 15:35:00 137 mm[Hg] [facility] Diastolic blood 2022-05-31 15:35:00 87 mm[Hg] [facility] Heart rate 2022-05-31 15:35:00 72 /min [facility] Body temperature 2022-05-31 15:35:00 35.78 Inez [facility] Respiratory rate 2022-05-31 15:35:00 18 /min [facility] Oxygen saturation in 2022-05-31 15:35:00 97 /min [facility] Arterial blood by Medical Ce nter Pulse oximetry Body height 2022-05-30 06:19:00 162.6 cm [facility] Body weight 2022-05-30 06:19:00 73.2 kg [facility] BMI 2022-05-30 06:19:00 27.70 kg/m2 [facility] BP Systolic 2022-04-14 09:42:00 116 mm[Hg] BP [...] 17.00 /min Heart Rate 2014-11-01 17:00:00 [facility] [place] Temperature Oral (F) 2014-11-01 17:00:00 98.5 F [facility] [place] Systolic (mm Hg) 2014-11-01 17:00:00 Abad rial [place] Diastolic (mm Hg) 2014-11-01 17:00:00 Mem orial [place] Respitory Rate 2014-11-01 17:00:00 Memori al [place] Heart Rate 2014-11-01 13:00:00 [facility] [place] Systolic (mm Hg) 2014-11-01 13:00:00 Abad rial [place] Diastolic (mm Hg) 2014-11-01 13:00:00 Mem orial [place] Respitory Rate 2014-11-01 13:00:00 Memori al [place] Temperature Oral (F) 2014-11-01 13:00:00 98.6 F [facility] [place] Respitory Rate 2014-11-01 09:01:00 Memori al [place] Systolic (mm Hg) 2014-11-01 09:01:00 Abad rial [place] Diastolic (mm Hg) 2014-11-01 09:01:00 Mem orial [place] Temperature Oral (F) 2014-11-01 09:01:00 98 F [facility] [place] Heart Rate 2014-11-01 09:01:00 [facility] [place] Weight 2014-10-30 10:23:00 [facility] [place] BMI Calculated 2014-10-30 10:23:00 Memori al [place] Height 2014-10-30 10:23:00 162.56 cm [facility] [place] Procedures Procedure Date / Time Performing Clinician Source Performed CONSENT/REFUSAL FOR 2022-06-22 20:29:40 Doctor Unassigned, No Un [facility] DIAGNOSIS AND TREATMENT Name Medical Branch POCT-GLUCOSE METER 2022-05-31 12:27:00 Kristin [facility] 2D ECHO W/ DOPPLER 2022-05-31 [facility] POCT-GLUCOSE METER 2022-05-31 09:00:00 Kristin [facility] BASIC METABOLIC PANEL 2022-05-31 08:31:00 [place] MAGNESIUM 2022-05-31 08:31:[address] [facility] [facility] PO[facility]-GLUCOSE METER 2022-05-30 20:54:[address] [facility] POCT-GLUCOSE METER 2022-05-30 15:00:00 Martin [facility] MR BRAIN WITHOUT IV 2022-05-30 12:30:[address] [facility] POCT-GLUCOSE METER 2022-05-30 10:50:00 [facility] 2022-05-30 05:34:00 donavon [facility] CBC W/PLT COUNT & AUTO 2022-05-30 05:34:00 donavon [facility] HEMOGLOBIN A1C 2022-05-30 05:34:00 [facility] BASIC METABOLIC PANEL 2022-05-30 05:34:00 [place] [facility] MAGNESIUM 2022-05-30 05:34:[address] [facility] PHOSPHORUS 2022-05-30 05:34:[address] [facility] CBC W/PLT COUNT & AUTO 2022-05-30 05:34:00 Carl [facility] POCT-GLUCOSE METER 2022-05-29 21:39:00 Veronica [facility] POCT-GLUCOSE METER 2022-05-29 17:29:00 Martin, [facility] CBC W/PLT COUNT & AUTO 2022-05-29 15:15:00 [facility] HIGH SENSITIVITY 2022-05-29 15:15:00 [facility] TROPONIN I Center HEPATIC FUNCTION PANEL 2022-05-29 15:15:00 [facility] BASIC METABOLIC PANEL 2022-05-29 15:15:00 [place] [facility] W/PLT COUNT & AUTO 2022-05-29 15:15:00 [facility] VITAMIN B12 2022-05-29 15:14:00 [facility] TSH/FREE T4 IF 2022-05-29 15:14:00 [facility] INDICATED [place] RPR 2022-05-29 15:14:00 [facility], [facility] ECG 12-LEAD 2022-05-29 15:13:48 Ahmdd, [facility] ECG 12-LEAD 2022-05-29 15:13:48 Unknown, Hl7 [facility] ECG 12-LEAD 2022-05-29 15:13:48 Unknown, Hl7 [facility] ECG 12-LEAD 2022-05-29 15:11:24 Unknown, Hl7 [facility] ECG 12-LEAD 2022-05-29 15:11:24 Unknown, 7 [facility] [id number] Colposcopy Cervix 2020-09-26 00:00:00 Bx Cervix endocrv Curtg [id number] Colposcopy Cervix 2019-09-04 00:00:00 Bx Cervix endocrv Curtg Rmvl Impacted Cerumen 2015-08-15 00:00:00 Spx 1/both Ears section [facility] Plan of Care Planned Activity Planned Date Details Comments Source Future Scheduled 2025-05-30 Lipid panel (procedure) [facility] 00:00:00 [code = 31931270] Medical Ce nter Future Scheduled 2025-05-30 Lipid panel (procedure) [facility] 00:00:00 [code = 92050962] Medical Ce nter Future Scheduled 2025-05-30 Lipid panel (procedure) [facility] 00:00:00 [code = 55393443] Medical Ce nter Future Scheduled 2025-05-30 Lipid panel (procedure) [facility] 00:00:00 [code = 94769889] Medical Ce nter Future Scheduled 2025-05-30 Lipid panel (procedure) [facility] 00:00:00 [code = 79430163] Medical Ce nter Future Scheduled 2025-05-30 Lipid panel (procedure) [facility] 00:00:00 [code = 92424414] Medical Ce nter Future Scheduled 2025-05-30 Lipid panel (procedure) [facility] 00:00:00 [code = 66460513] Medical Ce nter Future Scheduled 2025-05-30 Lipid panel (procedure) [facility] 00:00:00 [code = 08751323] Medical Ce nter Future Scheduled 2023-03-04 INFLU[address]ZA [...] [facility] 00:[facility]:00 measurement (procedure) [facility] [code = 79028590] Future Scheduled 2019-06-[address] [facility] 00:00:00 measurement (procedure) [facility] [code = 90487193] Future Scheduled 2019-06-[address] [facility] 00:00:00 measurement (procedure) [facility] [code = 21088947] Future Scheduled 2019-06-[address] [facility] 00:00:00 measurement (procedure) [facility] [code = 08351186] Future Scheduled 2019-06-[address] [facility] 00:00:00 measurement (procedure) [facility] [code = 47452688] Future Scheduled 2019-06-[address] [facility] 00:00:00 measurement (procedure) [facility] [code = 30653383] Future Scheduled 2019-06-[address] [facility] 00:00:00 measurement (procedure) [facility] [code = 29652234] Future Scheduled 2019-06-[address] [facility] 00:00:00 measurement (procedure) [facility] [code = 78871860] Future Scheduled 2018-12-[address] [facility] 00:[facility]:00 2) [code = SHINGLES [facility] Center VACCINES (1 of 2)] Future Scheduled [...] cervix Medical C enter (procedure) [code = 928752647] Future Scheduled 1979-11-05 Screening for malignant [facility] 00:00:00 neoplasm of cervix Medical C enter (procedure) [code = 229604992] Future Scheduled 1979-11-05 Screening for malignant [facility] 00:00:00 neoplasm of cervix Medical C enter (procedure) [code = 002742248] Future Scheduled 1979-11-05 Screening for malignant [facility] 00:00:00 neoplasm of cervix Medical C enter (procedure) [code = 211702142] Future Scheduled 1979-11-05 Screening for malignant [facility] 00:00:00 neoplasm of cervix Medical C enter (procedure) [code = 685964691] Future Scheduled 1979-11-05 Screening for malignant [facility] 00:00:00 neoplasm of cervix Medical C enter (procedure) [code = 236276219] Future Scheduled 1979-11-05 Screening for malignant [facility] 00:00:00 neoplasm of cervix Medical C enter (procedure) [code = 746958165] Future Scheduled 1979-11-05 Screening for malignant [facility] 00:00:00 neoplasm of cervix Medical C enter (procedure) [code = 983152125] Future Scheduled 1977 DTAP/TDAP/TD VACCINES CH I [...] 00:00:00 examination Medical Center (regime/therapy) [code = 609337835] Future Scheduled 1968 Urine screening for [facility] 00:00:00 protein (procedure) Medical Center [code = 075369781] Future Scheduled 1968 DIABETIC EYE EXAM [code [facility] 00:00:00 = DIABETIC EYE EXAM] Medical Center Future Scheduled [address] [facility] 00[facility] examination Medical Center (regime/therapy) [code = 136533158] Future Scheduled 1968 Urine screening for [facility] 00:00:00 protein (procedure) Medical Center [code = 592144907] Future Scheduled 1968 DIABETIC EYE EXAM [code [facility] 00:00:00 = DIABETIC EYE EXAM] Medical Center Future Scheduled [address] [facility] 00:00:00 examination Medical Center (regime/therapy) [code = 592754523] Future Scheduled 1968 Urine screening for [facility] 00:00:00 protein (procedure) Medical Center [code = 910124704] Future Scheduled 1968 DIABETIC EYE EXAM [code [facility] 00:00:00 = DIABETIC EYE EXAM] Medical Center Future Scheduled [address] [facility] 00:00:00 examination Medical Center (regime/therapy) [code = 579482703] Future Scheduled 1968 Urine screening for [facility] 00:00:00 protein (procedure) Medical Center [code = 700384282] Future Scheduled 1968 DIABETIC EYE EXAM [code [facility] 00:00:00 = DIABETIC EYE EXAM] Medical Center Future Scheduled [address] [facility] 00:00:00 examination Medical Center (regime/therapy) [code = 479466351] Future Scheduled 1968 Urine screening for [facility] 00:00:00 protein (procedure) Medical Center [code = 076752760] Future Scheduled 1968 DIABETIC EYE EXAM [code [facility] 00:00:00 = DIABETIC EYE EXAM] Medical Center Future Scheduled [address] [facility] 00:00:00 examination Medical Center (regime/therapy) [code = 187101550] Future Scheduled 1968 Urine screening for [facility] 00:00:00 protein (procedure) Medical Center [code = 719797085] Future Scheduled 1968 DIABETIC EYE EXAM [code [facility] 00:00:00 = DIABETIC EYE EXAM] Medical Center Future Scheduled [address] [facility] 00:00:00 examination Medical Center (regime/therapy) [code = 304667053] Future Scheduled 1968 Urine screening for [facility] 00:00:00 protein (procedure) Medical Center [code = 287001225] Future Scheduled 1968 DIABETIC EYE EXAM [code [facility] 00:00:00 = DIABETIC EYE EXAM] Medical Center Future Scheduled [address] [facility] 00:00:00 examination Medical Center (regime/therapy) [code = 392707874] Future Scheduled 1968 Urine screening for [facility] 00:00:00 protein (procedure) Medical Center [code = 872797334] Future Scheduled 1958 Screening for malignant [facility] 00:00:00 neoplasm of breast Medical C enter (procedure) [code = 265848240] Future Scheduled 1958 CT Colonography (combo) [facility] 00:00:00 [code = CT Colonography [facility] Center (combo)] Future Scheduled 1958 Screening for malignant [facility] 00:00:00 neoplasm of colon Medical Ce nter (procedure) [code = 693209483] Future Scheduled 1958 Screening for malignant [facility] 00:00:00 neoplasm of colon Medical Ce nter (procedure) [code = 735692124] Future Scheduled 1958 Screening for malignant [facility] 00:00:00 neoplasm of colon Medical Ce nter (procedure) [code = 414272890] Future Scheduled 1958 Screening for malignant [facility] 00:00:00 neoplasm of colon Medical Ce nter (procedure) [code = 321120751] Future Scheduled 1958 Sigmoidoscopy [code = [facility]] Medical Cente r Future Scheduled 1958 Screening for malignant [facility] 00:00:00 neoplasm of breast Medical C enter (procedure) [code = 674367285] Future Scheduled 1958 CT Colonography (combo) [facility] 00:00:00 [code = CT [facility] ([facility])] Future Scheduled 1958 Screening for malignant [facility] 00:00:00 neoplasm of colon Medical Ce nter (procedure) [code = 592079924] Future Scheduled 1958 Screening for malignant [facility] 00:00:00 neoplasm of colon Medical Ce [facility]ter (procedure) [code = 604465549] Future Scheduled 1958 Screening for malignant [facility] 00:00:00 neoplasm of colon Medical Ce nter (procedure) [code = 894504051] Future Scheduled 1958 Screening for malignant [facility] 00:00:00 neoplasm of colon Medical Ce nter (procedure) [code = 174329933] Future Scheduled 1958 Sigmoidoscopy [facility]code = [facility]] [facility] Cent[facility] Future Scheduled 1958 Screening for malignant [facility] 00:00:00 neoplasm of breast Medical C enter (procedure) [code = 663292225] Future Scheduled 1958 CT Colonography (combo) [facility] 00:00:00 [code = CT [facility] ([facility])] Future Scheduled 1958 Screening for malignant [facility] 00:00:00 neoplasm of colon Medical Ce [facility]ter (procedure) [code = 636831777] Future Scheduled 1958 Screening for malignant [facility] 00:00:00 neoplasm of colon [facility] Ce [facility]ter (procedure) [code = 957160579] Future Scheduled 1958 Screening for malignant [facility] 00:00:00 neoplasm of colon Medical Ce nter (procedure) [code = 847887960] Future Scheduled 1958 Screening for malignant [facility] 00:00:00 neoplasm of colon Medical Ce nter (procedure) [code = 792111734] Future Scheduled 1958 Sigmoidoscopy [facility]code = [facility]] Medical Cente r Future Scheduled 1958 Screening for malignant [facility] 00:00:00 neoplasm of breast Medical C enter (procedure) [code = 056790964] Future Scheduled 1958 CT Colonography (combo) [facility] 00:00:00 [code = CT [facility] ([facility])] Future Scheduled 1958 Screening for malignant [facility] 00:00:00 neoplasm of colon Medical Ce nter (procedure) [code = 255772024] Future Scheduled 1958 Screening for malignant [facility] 00:00:00 neoplasm of colon Medical Ce [facility]ter (procedure) [code = 695495992] Future Scheduled 1958 Screening for malignant [facility] 00:00:00 neoplasm of colon Medical Ce nter (procedure) [code = 646587038] Future Scheduled 1958 Screening for malignant [facility] 00:00:00 neoplasm of colon Medical Ce nter (procedure) [code = 555505487] Future Scheduled 1958 Sigmoidoscopy [code = [facility]] Medical Cente r Future Scheduled 1958 Screening for malignant [facility] 00:00:00 neoplasm of breast Medical C enter (procedure) [code = 010695481] Future Scheduled 1958 CT Colonography (combo) [facility] 00:00:00 [code = CT [facility] (com[facility])] Future Scheduled 1958 Screening for malignant [facility] 00:00:00 neoplasm of colon Medical Ce nter (procedure) [code = 404015993] Future Scheduled 1958 Screening for malignant [facility] 00:00:00 neoplasm of colon Medical Ce nter (procedure) [code = 109549502] Future Scheduled 1958 Screening for malignant [facility] 00:00:00 neoplasm of colon Medical Ce nter (procedure) [code = 079064319] Future Scheduled 1958 Screening for malignant [facility] 00:00:00 neoplasm of colon Medical Ce nter (procedure) [code = 692199290] Future Scheduled 1958 Sigmoidoscopy [facility]code = [facility]] Medical Cent[facility] r Future Scheduled 1958 Screening for malignant [facility] 00:00:00 neoplasm of breast Medical C enter (procedure) [code = 830501355] Future Scheduled 1958 CT Colonography (combo) [facility] 00:00:00 [code = CT [facility] ([facility])] Future Scheduled 1958 Screening for malignant [facility] 00:00:00 neoplasm of colon Medical Ce nter (procedure) [code = 609131746] Future Scheduled 1958 Screening for malignant [facility] 00:00:00 neoplasm of colon Medical Ce nter (procedure) [code = 235446628] Future Scheduled 1958 Screening for malignant [facility] 00:00:00 neoplasm of colon Medical Ce nter (procedure) [code = 632235589] Future Scheduled 1958 Screening for malignant [facility] 00:00:00 neoplasm of colon Medical Ce nter (procedure) [code = 393568708] Future Scheduled 1958 Sigmoidoscopy [facility]code = [facility]oscopy] Medical Cente r Future Scheduled 1958 Screening for malignant [facility] 00:00:00 neoplasm of breast Medical C enter (procedure) [code = 243186341] Future Scheduled 1958 CT Colonography (combo) [facility] 00:00:00 [code = CT [facility]ography [facility] (combo)] Future Scheduled 1958 Screening for malignant [facility] 00:00:00 neoplasm of colon Medical Ce nter (procedure) [code = 623983226] Future Scheduled 1958 Screening for malignant [facility] 00:00:00 neoplasm of colon Medical Ce nter (procedure) [code = 534243428] Future Scheduled 1958 Screening for malignant [facility] 00:00:00 neoplasm of colon Medical Ce nter (procedure) [code = 746818150] Future Scheduled 1958 Screening for malignant [facility] 00:00:00 neoplasm of colon Medical Ce nter (procedure) [code = 051092385] Future Scheduled 1958 Sigmoidoscopy [code = [facility]] Medical Cente r Future Scheduled 1958 Screening for malignant [facility] 00:00:00 neoplasm of breast Medical C enter (procedure) [code = 607073878] Future Scheduled 1958 CT Colonography (combo) [facility] 00:00:00 [code = CT Colonography [facility] (combo)] Future Scheduled 1958 Screening for malignant [facility] 00:00:00 neoplasm of colon Medical Ce nter (procedure) [code = 598733667] Future Scheduled 1958 Screening for malignant [facility] 00:00:00 neoplasm of colon Medical Ce nter (procedure) [code = 193747302] Future Scheduled 1958 Screening for malignant [facility] 00:00:00 neoplasm of colon Medical Ce nter (procedure) [code = 120406145] Future Scheduled 1958 Screening for malignant [facility] 00:00:00 neoplasm of colon Medical Ce nter (procedure) [code = 844944986] Future Scheduled 1958 Sigmoidoscopy [code = [facility]] Medical Cente r Goal Plan of Care Note [code = 29535-2] Goal Plan of Care Note [code = 16482-0] Goal Plan of Care Note [code = 36864-9] Goal Plan of Care Note [code = 61544-8] Goal Plan of Care Note [code = 15038-3] Goal Plan of Care Note [code = 02298-5] Goal Plan of Care Note [code = 98851-9] Goal Plan of Care Note [code = 99309-3] Goal Plan of Care Note [code = 47884-1] Goal Plan of Care Note [code = 19998-9] Goal Plan of Care Note [code = 68142-9] Goal Plan of Care Note [code = 48929-6] Goal Plan of Care Note [code = 23021-4] Goal Plan of Care Note [code = 26212-8] Goal Plan of Care Note [code = 10533-7] Goal Plan of Care Note [code = 70392-1] Goal Plan of Care Note [code = 97371-1] Goal Plan of Care Note [code = 92154-1] Goal Plan of Care Note [code = 12963-2] Goal Plan of Care Note [code = 69857-0] Goal Plan of Care Note [code = 48284-9] Goal Plan of Care Note [code = 19902-7] Goal Plan of Care Note [code = 59685-5] Goal Plan of Care Note [code = 98051-9] Goal Plan of Care Note [code = 42447-4] Goal Plan of Care Note [code = 42736-9] Goal Plan of Care Note [code = 44468-7] Goal Plan of Care Note [code = 96225-6] Goal Plan of Care Note [code = 59465-1] Goal Plan of Care Note [code = 67306-4] Goal Plan of Care Note [code = 45703-7] Goal Plan of Care Note [code = 40595-3] Goal Plan of Care Note [code = 72104-8] Goal Plan of Care Note [code = 11498-3] Goal Plan of Care Note [code = 80644-3] Goal Plan of Care Note [code = 54479-1] Goal Plan of Care Note [code = 20315-0] Goal Plan of Care Note [code = 35992-5] Goal Plan of Care Note [code = 34866-9] Goal Plan of Care Note [code = 42847-2] Goal Plan of Care Note [code = 19571-3] Goal Plan of Care Note [code = 72431-6] Goal Plan of Care Note [code = 91380-2] Goal Plan of Care Note [code = 34711-8] Goal Plan of Care Note [code = 27607-2] Goal Plan of Care Note [code = 41655-6] Goal Plan of Care Note [code = 44677-3] Goal Plan of Care Note [code = 38756-1] Goal Plan of Care Note [code = 71129-6] Goal Plan of Care Note [code = 18105-6] Goal Plan of Care Note [code = 99699-3] Goal Plan of Care Note [code = 86465-3] Goal Plan of Care Note [code = 04371-7] Goal Plan of Care Note [code = 55987-6] Goal Plan of Care Note [code = 15599-8] Goal Plan of Care Note [code = 68941-6] Goal Plan of Care Note [code = 45099-5] Goal Plan of Care Note [code = 48933-4] Goal Plan of Care Note [code = 79647-0] Goal Plan of Care Note [code = 44740-8] Goal Plan of Care Note [code = 96027-3] Goal Plan of Care Note [code = 69524-8] Goal Plan of Care Note [code = 69049-9] Goal Plan of Care Note [code = 93288-0] Goal Plan of Care Note [code = 09472-4] Goal Plan of Care Note [code = 42289-0] Goal Plan of Care Note [code = 02435-9] Goal Plan of Care Note [code = 29770-8] Goal Plan of Care Note [code = 13397-9] Goal Plan of Care Note [code = 45937-6] Goal Plan of Care Note [code = 17348-8] Goal Plan of Care Note [code = 86096-2] Goal Plan of Care Note [code = 41066-3] Goal Plan of Care Note [code = 20333-5] Goal Plan of Care Note [code = 33314-8] Goal Plan of Care Note [code = 48625-2] Goal Plan of Care Note [code = 23110-5] Goal Plan of Care Note [code = 25008-2] Goal Plan of Care Note [code = 37036-9] Goal Plan of Care Note [code = 21613-9] Goal Plan of Care Note [code = 44733-2] Goal Plan of Care Note [code = 60201-4] Goal Plan of Care Note [code = 95282-4] Goal Plan of Care Note [code = 01967-9] Goal Plan of Care Note [code = 51185-1] Goal Plan of Care Note [code = 97117-1] Goal Plan of Care Note [code = 42332-2] Goal Plan of Care Note [code = 47102-5] Goal Plan of Care Note [code = 60209-9] Goal Plan of Care Note [code = 97906-4] Goal Plan of Care Note [code = 66898-1] Goal Plan of Care Note [code = 86081-5] Goal Plan of Care Note [code = 10107-0] Goal Plan of Care Note [code = 77412-6] Goal Plan of Care Note [code = 67422-1] Goal Plan of Care Note [code = 73590-0] Goal Plan of Care Note [code = 71769-7] Goal Plan of Care Note [code = 04386-3] Goal Plan of Care Note [code = 41541-2] Goal Plan of Care Note [code = 24516-3] Goal Plan of Care Note [code = 25875-7] Goal Plan of Care Note [code = 95546-4] Goal Plan of Care Note [code = 95742-1] Goal Plan of Care Note [code = 37849-1] Goal Plan of Care Note [code = 92221-7] Goal Plan of Care Note [code = 29841-6] Goal Plan of Care Note [code = 99412-1] Goal Plan of Care Note [code = 27344-9] Goal Plan of Care Note [code = 79919-4] Goal Plan of Care Note [code = 00232-1] Goal Plan of Care Note [code = 48120-6] Goal Plan of Care Note [code = 59220-4] Goal Plan of Care Note [code = 62593-9] Goal Plan of Care Note [code = 18536-4] Goal Plan of Care Note [code = 35436-4] Goal Plan of Care Note [code = 92887-4] Goal Plan of Care Note [code = 37752-4] Goal Plan of Care Note [code = 56762-3] Goal Plan of Care Note [code = 39197-9] Goal Plan of Care Note [code = 87073-0] Goal Plan of Care Note [code = 98356-0] Goal Plan of Care Note [code = 82447-0] Goal Plan of Care Note [code = 39645-1] Goal Plan of Care Note [code = 24196-6] Goal Plan of Care Note [code = 97846-2] Goal Plan of Care Note [code = 92698-0] Goal Plan of Care Note [code = 63536-9] Goal Plan of Care Note [code = 63360-3] Goal Plan of Care Note [code = 72677-7] Goal Plan of Care Note [code = 81924-7] Goal Plan of Care Note [code = 57004-2] Goal Plan of Care Note [code = 31584-1] Goal Plan of Care Note [code = 67862-4] Goal Plan of Care Note [code = 87964-4] Goal Plan of Care Note [code = 17044-0] Goal Plan of Care Note [code = 36857-8] Goal Plan of Care Note [code = 99487-1] Goal Plan of Care Note [code = 93105-5] Goal Plan of Care Note [code = 38302-5] Goal Plan of Care Note [code = 81581-0] Goal Plan of Care Note [code = 63975-7] Goal Plan of Care Note [code = 51797-9] Goal Plan of Care Note [code = 30861-5] Goal Plan of Care Note [code = 78266-6] Goal Plan of Care Note [code = 40655-8] Goal Plan of Care Note [code = 42886-8] Goal Plan of Care Note [code = 83516-4] Goal Plan of Care Note [code = 54929-4] Goal Plan of Care Note [code = 97707-9] Goal Plan of Care Note [code = 10896-2] Goal Plan of Care Note [code = 40811-1] Goal Plan of Care Note [code = 38625-5] Goal Plan of Care Note [code = 44391-5] Goal Plan of Care Note [code = 39350-8] Goal Plan of Care Note [code = 93795-4] Goal Plan of Care Note [code = 91102-4] Goal Plan of Care Note [code = 00783-2] Goal Plan of Care Note [code = 29001-3] Goal Plan of Care Note [code = 33887-8] Goal Plan of Care Note [code = 72788-8] Goal Plan of Care Note [code = 48779-4] Goal Plan of Care Note [code = 91622-0] Goal Plan of Care Note [code = 74172-0] Goal Plan of Care Note [code = 45197-7] Goal Plan of Care Note [code = 72904-3] Goal Plan of Care Note [code = 27636-7] Goal Plan of Care Note [code = 30234-1] Goal Plan of Care Note [code = 05186-6] Goal Plan of Care Note [code = 70492-5] Goal Plan of Care Note [code = 26246-2] Goal Plan of Care Note [code = 27982-1] Goal Plan of Care Note [code = 02812-0] Goal Plan of Care Note [code = 78383-6] Goal Plan of Care Note [code = 27156-4] Goal Plan of Care Note [code = 78995-1] Goal Plan of Care Note [code = 67239-0] Goal Plan of Care Note [code = 16366-2] Goal Plan of Care Note [code = 66730-8] Goal Plan of Care Note [code = 85333-9] Goal Plan of Care Note [code = 25014-3] Goal Plan of Care Note [code = 20066-2] Goal Plan of Care Note [code = 03343-9] Goal Plan of Care Note [code = 57525-6] Goal Plan of Care Note [code = 72130-9] Goal Plan of Care Note [code = 49027-9] Goal Plan of Care Note [code = 64916-8] Goal Plan of Care Note [code = 18391-1] Goal Plan of Care Note [code = 13771-8] Goal Plan of Care Note [code = 66525-2] Goal Plan of Care Note [code = 20041-9] Goal Plan of Care Note [code = 19485-8] Goal Plan of Care Note [code = 81493-8] Goal Plan of Care Note [code = 59720-8] Goal Plan of Care Note [code = 08330-2] Goal Plan of Care Note [code = 15168-5] Goal Plan of Care Note [code = 99941-1] Goal Plan of Care Note [code = 29111-2] Goal Plan of Care Note [code = 22941-9] Goal Plan of Care Note [code = 48104-8] Goal Plan of Care Note [code = 56483-5] Goal Plan of Care Note [code = 91136-1] Goal Plan of Care Note [code = 98630-7] Goal Plan of Care Note [code = 69762-5] Goal Plan of Care Note [code = 78174-5] Goal Plan of Care Note [code = 96083-9] Goal Plan of Care Note [code = 36325-0] Goal Plan of Care Note [code = 43467-3] Goal Plan of Care Note [code = 96932-6] Goal Plan of Care Note [code = 89581-4] Goal Plan of Care Note [code = 76240-3] Goal Plan of Care Note [code = 13342-7] Goal Plan of Care Note [code = 60301-9] Encounters Start End Encounter Admission Attending Care Care Encounter Source Date/Time Date/Time Type Type Clinicians Facility Department ID 2022-10-11 2022-10-11 Outpatient [facility] 6030-20 230 Kyrie 15:27:48 15:27:48 410 F Car 2022-10-04 2022-10-04 Outpatient [facility] 6030-20 230 Kyrie 11:48:40 11:48:40 403 F Car 2022-09-20 2022-09-20 Outpatient Veda SORENSON [facility] [id number] Univers 15:00:00 15:00:00 LIBORIO steele [facility] 2022-06-22 2022-06-22 Outpatient PERCY STOREY [facility] [id number] Univers 14:40:00 15:33:30 PERCY HEARN tracy [facility] 2022-06-22 2022-06-22 Office Nadiya [facility] 1.2.840.114 [id number] Univers 14:40:00 15:33:30 [facility]2.686 Arron as JUMA?BLEA [id number] Me tony [address] MEDICAL OFFICE [facility] 2022-06-22 2022-06-22 Orders Doctor LANEY 1.2.840.114 [id number] Univers 00:00:00 00:00:00 Only Unassigned, CR[facility] 350.[facility].13.10 [facility] 4.2.7.2.686 Arron as [id number] [address] 2022-06-22 2022-06-22 Sue Hearn [facility] 1.2.840.114 [id number] Univers 00:00:00 00:00:00 (Out) [facility] 350.1.13.10 ity of [place] 4.2.7.2.686 Arron as JUMA?BLEA [phone] [address] 2022-06-22 2022-06-22 [facility] 1.2.840.114 [id number] Univers 00:00:00 00:00:00 (Out) [facility] 350.1.13.10 ity of [place] 4.2.7.2.686 Arron as JUMA?BLEA [id number] [address] 2022-06-03 2022-06-03 Outpatient [facility] 6030-20 221 Kyrie 10:30:02 10:30:02 201 F Car 2022-06-03 2022-06-03 Outpatient utc8hz06- [id number] t0aq38-7 00:00:00 00:00:00 Visit 3391-4fad 391-4fad-a -l4k6-123 3u5-1655x2 2c1g8m904 g9y981 2022-05-29 2022-05-31 [id number] [facility] 13:50:00 19:40:00 [facility] 2022-05-29 2022-05-31 [facility] Bowen [facility] [id number] [facility] 13:50:00 19:40:00 Layne Fraser, [facility] 2022-05-29 2022-05-31 [facility] [id number] [facility] 13:50:00 19:40:00 Encounter Layne Prieto [facility] Kristin [facility] 2022-05-29 2022-05-29 Outpatient [facility] [id number] [facility] [facility] 00:00:00 23:59:00 Jorge weathers of Medicin e 2022-05-29 2022-05-29 Orders [facility] [id number] 00:00:00 00:00:00 Only [facility] 2022-05-29 2022-05-29 Travel [facility] [id number] [facility] 00:[facility] 00:00:00 [facility] 2022-05-29 2022-05-29 Orders [facility] [id number] 00:00:00 00:00:[address] [facility] 2022-05-29 2022-05-29 Travel [facility] [id number] [facility] 00:[facility] 00:00:00 [facility] 2022-04-14 2022-04-14 Outpatient [facility] 6030-20 221 [place]rie 09:35:17 09:35:17 012 F Car 2022-04-14 2022-04-14 Outpatient [id number]- [id number] c8 ee536x-2 00:00:00 00:00:00 Visit 1c0g-23z0 d1b-89c0-b -h016-fky 076-edaf5f z9k0u9veo 3b7dfe 2022-03-24 2022-03-24 Outpatient qg12z65z- [id number] ea 66g33m-8 00:00:00 00:00:00 Visit 489a-4b18 89a-4b18-8 -8f12-4bk o51-2fna00 p3548889p 64424n 2017-12-01 2017-12-01 Outpatient [facility] 14 [id number] Common 09:06:00 09:06:00 [facility] 2017-11-22 2017-11-22 Outpatient [facility] 14 [id number] Common 13:28:00 13:28:00 [address] [facility] [address] [facility] 2017-10-28 2017-10-28 Outpatient Shiela Kuot 13 [id number] Common 15:25:00 15:25:00 t [facility] [address] [facility] 2017-10-27 2017-10-27 [place]patient [place] [facility] 13 [id number] Common 11:53:00 11:53:00 t [facility] [address] [facility] 2017-10-25 2017-10-25 Outpatient Shiela Briceñobrissat 13 [id number] Common 13:30:00 13:30:00 t [facility] [address] [facility] 2014-10-30 2014-11-01 Inpatient Counts include 234 beds at the [facility] [id number] Memoria 10:18:00 21:02:[address] 2014-10-30 2014-11-01 Inpatient Counts include 234 beds at the [facility] [id number] Memoria 10:18:00 21:02:[address] 2014-10-30 2014-11-01 Outpatient Teqwimuaarnulfo, 2.16.840. 2.16.840.1 . [id number] 05:18:00 16:02:00 Aditya 1.719903. [id number] 3.615.0.1 5.0.101 01 Results Test Description Test Time Test Comments Results Result Comments Source TSH, THIRD GENERATION 2022-10-13 09:23:16 Test Item Value Reference Range Interpretation Comme nts TSH, THIRD GENERATION (test code = 2821) 1.150 UIU/ML 0.400-4.100 LIPID [id number] 05:07:03 Test Item Value Reference Range Interpretation Comments CHOLESTEROL (test 315 MG/DL <200 H code = 2210) TRIGLYCERIDES (test 159 MG/DL <150 H code = 2232) HDL CHOLESTEROL (test 96 MG/DL >39 code = 2220) CALC LDL CHOL (test 188 MG/DL <100 H NOTE: C ALCULATED LDL code = 2237) IS BASED ON RUIZ-LOPEZ METHOD WHICHINCLUDES ADJUSTABLE TRIGLYCERIDE:VL DL CHOLESTEROL RAT IO.THIS FACTOR VARIES B Y MEASURED TRIGLY CERIDE AND NON-HDLCHOL ESTEROL CONCENTRATIONS WITH INCREASED CALCU LATED LDL SEENIN HIGH ER TRIGLYCERIDE OR LOWER NON-HDL SPECIME NS. FOR MOREINFORMATION , SEE CLIENT ANNOUNCE MENT AT [email or web address] RISK [email or web address] LDL/HDL 1.96 RATIO <3.22 [place] has important (test code = 2238) pathology staff changes effecti ve 09/01/2022. New pathology staff will provide uninter rupted, excellent patie nt care and clinical consultation. S ee URL: [email or web address]. UNLES S OTHERWISE INDIC ATED, ALL TESTING PER FORMED AT CLINICAL [facility] [employer] [facility]. [address] [place] [address] LABOR ATORY DIRECTOR: Bernarda ADORNO GITA NUMBER [id number] CAP ACCREDITATION N O. [id number] COMPREHENSIVE METABOLIC [id number] 05:07:03 Test Item Value Reference Range Interpretation Comments GLUCOSE (test code = 184 MG/DL 70-99 H 2216) BUN (test code = 12 MG/DL 8-23 2207) CREATININE (test 0.71 MG/DL 0.60-1.30 code = 2214) eGFR (2020 CKD-EPI) 95 ML/MIN/1.73 >60 (test code = 22953) CALC BUN/CREAT (test 17 RATIO 6-28 code = 2235) SODIUM (test code = 137 MEQ/L 108-246 3132) POTASSIUM (test code 3.9 MEQ/L 3.5-5.4 = 2227) CHLORIDE (test code 96 MEQ/L 95-107 = 2215) CARBON DIOXIDE (test 21 MEQ/L 19-31 code = 2206) CALCIUM (test code = 9.7 MG/DL 8.5-10.5 2208) PROTEIN, TOTAL (test 7.5 G/DL 6.1-8.3 code = 2229) ALBUMIN (test code = 4.5 G/DL 3.5-5.2 2200) CALC GLOBULIN (test 3.0 G/DL 1.9-3.7 code = 2240) CALC A/G RATIO (test 1.5 RATIO 1.0-2.6 code = 2234) BILIRUBIN, TOTAL 0.9 MG/DL See_Comment [Automated message] (test code = 220) The syste m which generated this result transmit rafael reference range : <=1.2. The refe rence range was not u sed to interpret th is result as normal/abnormal . ALKALINE PHOSPHATASE 103 U/L 40-140 (test code = 2203) AST (test code = 44 U/L 9-40 H 8) ALT (test code = 71 U/L 5-40 H 2218) HEMOGLOBIN [id number] 04:02:51 Test Item Value Reference Range Interpretation Comments HEMOGLOBIN A1c (test 5.9 % 4.2-5.6 H [employer]ES code = 77662) ASSOCIATION [employer] FOR HGB A1C: PREDIABETES/INC REASED [...] LABORATORY C ONSULTATION. CBC W/AUTO DIFF WITH [id number] 03:44:13 Test Item Value Reference Range Interpretation [...] RBCS 0.00 K/UL 0.00-0.11 (test code = 35092) 2D Echo W/Doppler(CW/PW/Color)2022-05-31 15:43:45Ejection [facility]CW/PW/Color)2022-05-31 15:43:45Ejection [facility] W/Doppler(CW/PW/Color) 2022-05-31 15:43:45Ejection [facility] W/Doppler(CW/PW/Color)2022-05-31 15:43:45[facility] W/Doppler(CW/PW/Color)2022-05-31 15:43:45Ejection [facility]SLEH [facility] W/Doppler(CW/PW/Color) 2022-05-31 15:43:45Ejection [facility] W/Doppler(CW/PW/Color)2022-05-31 15:43:45Ejection [facility] W/Doppler(CW/PW/Color)2022-05-31 15:43:45Ejection [facility]ractionSLE [facility]CHO [facility] 12:58:10 Test Item Value Reference Range Interpretation Comments RPR SCREEN (BEAKER) (test code = Nonreactive Nonreactive 420) POC-Glucose [id number] 12:38:42 Test Item Value Reference Range Interpretation Comments POC-Glucose Meter (test 124 mg/dL 70-110 H : TE STED AT [facility] code = 1538) [address] [place] [address], [facility] 30: Telecom Coordinator/Techni ana ID = [id number] for SEQUEIRA, ANNIEECA Lab Interpretation (test Abnormal code = 50453-3) [facility]-Glucose [id number] 12:38:42 Test Item Value Reference Range Interpretation Comments POC-Glucose Meter (test 124 mg/dL 70-110 H : TE STED AT [facility] code = 1538) [address] [place] [address], 770 30: Telecom Coordinator/Techni ana ID = [id number] for SEQUEIRA, ANNIEECA Lab Interpretation (test Abnormal code = 56896-9) [facility]-Glucose [id number] 12:38:42 Test Item Value Reference Range Interpretation Comments POC-Glucose Meter (test 124 mg/dL 70-110 H : TE STED AT [facility] code = 1538) [address] [place] [address], 770 30: Telecom Coordinator/Techni ana ID = [id number] for SEQUEIRA, JAMECA Lab Interpretation (test Abnormal code = 01393-5) [facility]-Glucose [id number] 12:38:42 Test Item Value Reference Range Interpretation Comments POC-Glucose Meter (test 124 mg/dL 70-110 H : TE STED AT [facility] code = 1538) [address] [place] [address], 770 30: Telecom Coordinator/Techni ana ID = [id number] for SEQUEIRA, ANNIEECA Lab Interpretation (test Abnormal code = 97139-8) [facility]-Glucose [id number] 12:38:42 Test Item Value Reference Range Interpretation Comments POC-Glucose Meter (test 124 mg/dL 70-110 H : TE STED AT [facility] code = 1538) [address] [place] [address], 770 30: Telecom Coordinator/Techni ana ID = [id number] for SEQUEIRA, ANNIEECA Lab Interpretation (test Abnormal code = 37951-4) [facility]-Glucose [id number] 12:38:42 Test Item Value Reference Range Interpretation Comments POC-Glucose Meter (test 124 mg/dL 70-110 H : TE STED AT [facility] code = 1538) [address] [place] [address], 770 30: Telecom Coordinator/Techni ana ID = [id number] for SEQUEIRA, ANNIEECA Lab Interpretation (test Abnormal code = 62120-0) [facility]-Glucose [id number] 12:38:42 Test Item Value Reference Range Interpretation Comments POC-Glucose Meter (test 124 mg/dL 70-110 H : TE STED AT [facility] code = 1538) [address] [place] [address], 770 30: Telecom Coordinator/Techni ana ID = [id number] for SEQUEIRA, ANNIEECA Lab Interpretation (test Abnormal code = 69783-3) [facility] [id number] 12:38:42 Test Item Value Reference Range Interpretation Comments POC-Glucose Meter (test 124 mg/dL 70-110 H : TE STED AT [facility] code = 1538) [address] [place] [address], 770 30: Telecom Coordinator/Techni ana ID = [id number] for SEQUEIRA, ANNIEECA Lab Interpretation (test Abnormal code = 43412-5) [facility] [id number] 12:38:42 Test Item Value Reference Range Interpretation Comments POC-GLUCOSE METER 124 mg/dL 70-110 H : TESTED A T [facility] 6720 (BEAKER) (test code = [facility] Veda [facility], 1538) [address]: Telecom Coordinator/Techni ana ID = [id number] for RO ESTELLAERS, ANNIEECA POCT-GLUCOSE [id number] 09:35:32 Test Item Value Reference Range Interpretation Comments POC-GLUCOSE METER 129 mg/dL 70-110 H : TESTED A T [facility] 6720 (BEAKER) (test code = [place], 1538) [address]: Telecom Coordinator/Techni ana ID = [id number] for MAXX NAIR [id number] 09:14:54 Test Item Value Reference Range Interpretation Comments MAGNESIUM (BEAKER) 1.5 mg/dL 1.6-2.6 L Specimen moderately (test code = 627) hemolyzed Telecom Coordinator ID - CORNELL MBASIC METABOLIC [id number] 09:14:54 Test Item Value Reference Range Interpretation [...] not appl icable for dialysis patien ts Telecom Coordinator ID - CORNELL MPOCT-GLUCOSE [id number] 21:45:20 Test Item Value Reference Range Interpretation Comments POC-GLUCOSE METER 130 mg/dL 70-110 H : TESTED A T [facility] 6720 (BEAKER) (test code [facility]ENJAMIN [facility], = 1538) [address]: Telecom Coordinator/Techni ana ID = [id number] for Carlito harris (contract)Alexia POCT-GLUCOSE [id number] 15:11:17 Test Item Value Reference Range Interpretation Comments POC-GLUCOSE METER 123 mg/dL 70-110 H : TESTED A T [facility] 6720 (BEALEXANDRA) (test code = GAIL Mccollum [facility], 1538) [address]: Telecom Coordinator/Techni ana ID = [id number] for Jenny Grider MR, BRAIN, WITHOUT [id number] 13:02:00Unlisted Reason for Exam - Click Yes and Enter Reason Below->No [facility] : 1960 Sex: FFINAL REPORTPATIENT ID: [id number] MR, BRAIN, WITHOUT CONTRAST INDICATION: Stroke, follow [...] Salvador MDReport Verified Date/Time: 05/30/2022 13:02:14 POCT-GLUCOSE [id number] 11:01:52 Test Item Value Reference Range Interpretation Comments POC-GLUCOSE METER 202 mg/dL 70-110 H : TESTED A T [facility] 6720 ([facility]) (test code [facility]ENJAMIN [facility], = 1538) [address]: Telecom Coordinator/Techni ana ID = [id number] for Jose bar (contract), [facility] istine HEMOGLOBIN [id number] 10:13:15 Test Item Value Reference Range Interpretation Comments HEMOGLOBIN A1C 5.9 % See_Comment H [Automated m essage] ELECTROPHORESIS (Geomagic) The system which (test code = 3811) generated this result transmitted ref erence range: <=5.6%. The reference range was not used to int erpret this result as normal/abnormal . "The A1c is measured using a NGSP-certified method. HbA1c value equal to or greater than 6.5% as thediagnosis cutoff for diabetes. An HbA1c value of 5.7- 6.4% indicates increased risk for diabetes (prediabetes)."Telecom Coordinator ID - ADM [id number] 07:39:33 Test Item Value Reference Range Interpretation Comments PHOSPHORUS (Geomagic) (test code = 3.4 mg/dL 2.3-4.7 604) Telecom Coordinator ID - JENNIFERNENA LLIPID [id number] 07:39:33 Test Item Value Reference Range Interpretation Comments TRIGLYCERIDES (MocapayAKER) (test code = 88 mg/dL 540) CHOLESTEROL (MocapayAKER) (test code = 205 mg/dL 631) HDL CHOLESTEROL (MocapayAKER) (test code 66 mg/dL = 976) LDL CHOLESTEROL CALCULATED (Geomagic) 121 mg/dL (test code = 633) Triglyceride Reference Range: Low Risk <150 Borderline 150-199 High Risk 200- 499 Very High Risk >=500Cholesterol Reference Range: Low Risk <200 Borderline 200-239 High Risk >240HDL Cholesterol Reference Range: Low Risk >=60 High Risk <40LDL Cholesterol Reference Range: Optimal <100 Near Optimal 100-129 Borderline 130-159 High 160-189 Very High >=190 Telecom Coordinator SONA ROSARIO LBASIC METABOLIC [id number] 07:39:32 Test Item Value Reference Range Interpretation [...] glom erular filtration rate . Estimated GFR i s not applicable for dialysis patients Telecom Coordinator SONA ROSARIO [id number] 07:39:32 Test Item Value Reference Range Interpretation Comments MAGNESIUM (BEAKER) (test code = 1.6 mg/dL 1.6-2.6 627) Telecom Coordinator SONA ROSARIO LCBC W/PLT COUNT & AUTO [id number] 06:07:45 Test Item Value Reference Range Interpretation [...] PERCENT (BEAKER) (test code = 2801) POCT-GLUCOSE [id number] 21:50:49 Test Item Value Reference Range Interpretation Comments POC-GLUCOSE METER 211 mg/dL 70-110 H : TESTED A T [facility] 6720 (BEAKER) (test code = GAIL Mccoll[place], 1538) [address]: Telecom Coordinator/Techni ana ID = [id number] for Donell Charles POCT-GLUCOSE [id number] 17:40:27 Test Item Value Reference Range Interpretation Comments POC-GLUCOSE METER 88 mg/dL 70-110 : TESTED A T [facility] 6720 (BEAKER) (test code = GAIL Mccollum [place], 1538) [address]: Telecom Coordinator/Techni ana ID = [id number] for Jenny Summers VITAMIN [id number] 16:16:43 Test Item Value Reference Range Interpretation Comments VITAMIN B12 (BEAKER) (test code = 347 pg/mL 213-816 774) Telecom Coordinator ID - ABRAHAM LTSH/FREE T4 IF [id number] 16:16:43 Test Item Value Reference Range Interpretation Comments THYROID STIMULATING HORMONE 2.077 uIU/mL 0.350-4.940 (BEAKER) (test code = 772) Telecom Coordinator ID - ABRAHAM LHIGH SENSITIVITY TROPONIN [id number] 15:54:55 Test Item Value Reference Range Interpretation Comments HIGH SENSITIVITY 5 pg/ml See_Comment [Automated message] TROPONIN I (test code = The system which 6768075) generated this result transmitted ref erence range: <=17. Th e reference range was not used to interpr et this result as normal/abnormal . Telecom Coordinator ID - ABRAHAM BETTENCOURThe SEAM CLOSER STAT High Sensitivity Troponin-I results should be used in conjunction with other diagnostic information such as ECG, clinical observations and information, and patient symptoms to aid in the diagnosis of MO.BASIC METABOLIC [id number] 15:50:34 Test Item Value Reference Range Interpretation [...] not appl icable for dialysis patien ts Telecom Coordinator ID - PIAYA LHEPATIC FUNCTION [id number] 15:50:34 Test Item Value Reference Range Interpretation [...] (test code = 19 U/L 6-55 347) Telecom Coordinator ID - PINENA LCBC W/PLT COUNT & AUTO [id number] 15:27:29 Test Item Value Reference Range Interpretation [...] (test code = 2801) PAP TEST, THINPREP, [id number] 16:20:45 Test Item Value Reference Range Interpretation Comments SOURCE: (test Cervical/Endo code = 8001) cervical SLIDES: (test 1 code = 1513) LMP: (test code = SEE NOTE POST RALEIGH PAUSAL 8021) SPECIMEN (NOTE) Satisfactory f or ADEQUACY: (test evaluation. Endocervical code = 46280) cells/transfor mation zone component present. INTERPRETATION: NILM/NO (test code = EPITH. --------- 25653) ABNORMALITY;S -------- EE BELOW NEGATIVE FO R INTRAEPITHELIAL LESION OR MALIGNANCY ( NILM) --------- --------- --------- - MEDICAL OFFICE SUPERVISOR: Madhu (test code = EzekielCT(ASCP 8101) ) QC TECHNOLOGIST: Susan (test code = DON Vásquez( 8111) CP) IAC LOCATION: (test (NOTE) Specimens pr ocessed and code = 02455) [facility] at [facility] [address] [facility] [place] [address], , CLIA: [id number] CPT: (test code = (NOTE) 67019 UNLE SS OTHERWISE 8140) INDICATED, COMP UTER [...] abundio ruvalcaba as applicable. PAP TEST, THINPREP, [id number] 00:00:00 Test Item Value Reference Range Interpretation Comments SOURCE: (test code = Cervical/Endocervical 8001) SLIDES: (test code = 1 8381) LMP: (test code = 8021) SEE NOTE SPECIMEN ADEQUACY: (test (NOTE) code = 91187) INTERPRETATION: (test NILM/NO EPITH. code = 58442) ABNORMALITY;SEE BELOW MEDICAL OFFICE SUPERVISOR: (test Madhu Falcon,CT(ASCP) code = 8101) QC TECHNOLOGIST: (test Malek code = 8111) ThaliaCT(ASCP) IAC LOCATION: (test code = (NOTE) 52099) CPT: (test code = 8140) (NOTE) PAP TEST, THINPREP, [id number] 00:00:00 Test Item Value Reference Range Interpretation Comments SOURCE: (test code = Cervical/Endocervical 8001) SLIDES: (test code = 1 8011) LMP: (test code = 8021) SEE NOTE SPECIMEN ADEQUACY: (test (NOTE) code = 55817) INTERPRETATION: (test NILM/NO EPITH. code = 11651) ABNORMALITY;SEE BELOW MEDICAL OFFICE SUPERVISOR: (test Madhu Falcon,CT(ASCP) code = 8101) QC TECHNOLOGIST: (test Malek code = 8111) ThaliaCT(ASCP) IAC LOCATION: (test code = (NOTE) 93434) CPT: (test code = 8140) (NOTE) PAP TEST, THINPREP, [id number] 00:00:00 Test Item Value Reference Range Interpretation Comments SOURCE: (test code = Cervical/Endocervical 8001) SLIDES: (test code = 1 8011) LMP: (test code = 8021) SEE NOTE SPECIMEN ADEQUACY: (test (NOTE) code = 46272) INTERPRETATION: (test NILM/NO EPITH. code = 15411) ABNORMALITY;SEE BELOW MEDICAL OFFICE SUPERVISOR: (test Madhu Falcon,CT(ASCP) code = 8101) QC TECHNOLOGIST: (test Malek code = 8111) ThaliaCT(ASCP) IAC LOCATION: (test code = (NOTE) 92693) CPT: (test code = 8140) (NOTE) PAP TEST, THINPREP, [id number] 00:00:00 Test Item Value Reference Range Interpretation Comments SOURCE: (test code = Cervical/Endocervical 8001) SLIDES: (test code = 1 8011) LMP: (test code = 8021) SEE NOTE SPECIMEN ADEQUACY: (test (NOTE) code = 52873) INTERPRETATION: (test NILM/NO EPITH. code = 77719) ABNORMALITY;SEE BELOW MEDICAL OFFICE SUPERVISOR: (test Madhu FalconCT(ASCP) code = 8101) QC TECHNOLOGIST: (test Malek code = 8111) ThaliaCT(ASCP) IAC LOCATION: (test code = (NOTE) 71346) CPT: (test code = 8140) (NOTE) PAP TEST, THINPREP, [id number] 00:00:00 Test Item Value Reference Range Interpretation Comments SOURCE: (test code = Cervical/Endocervical 8001) SLIDES: (test code = 1 8011) LMP: (test code = 8021) SEE NOTE SPECIMEN ADEQUACY: (test (NOTE) code = 83354) INTERPRETATION: (test NILM/NO EPITH. code = 56304) ABNORMALITY;SEE BELOW MEDICAL OFFICE SUPERVISOR: (test Madhu FalconCT(ASCP) code = 8101) QC TECHNOLOGIST: (test Malek code = 8111) ThaliaCT(ASCP) IAC LOCATION: (test code = (NOTE) 08039) CPT: (test code = 8140) (NOTE) PAP TEST, THINPREP, [id number] 00:00:00 Test Item Value Reference Range Interpretation Comments SOURCE: (test code = Cervical/Endocervical 8001) SLIDES: (test code = 1 8011) LMP: (test code = 8021) SEE NOTE SPECIMEN ADEQUACY: (test (NOTE) code = 23859) INTERPRETATION: (test NILM/NO EPITH. code = 59597) ABNORMALITY;SEE BELOW MEDICAL OFFICE SUPERVISOR: (test Madhu FalconCT(ASCP) code = 8101) QC TECHNOLOGIST: (test Malek code = 8111) ThaliaCT(ASCP) IAC LOCATION: (test code = (NOTE) 36448) CPT: (test code = 8140) (NOTE) HPV HIGH RISK WITH GENOTYPE, [id number] 16:08:35 Test Item Value Reference Range Interpretation Comments HPV HIGH RISK INTERP NEGATIVE NEGATIVE (test code = 44313) HPV 16 (test code = NEGATIVE 01450) HPV 18 (test code = NEGATIVE 61755) HPV, HR, OTHER NEGATIVE Testing meth odology is GENOTYPES (test code real-ti me PCR utilizing = 06182) hydrolysis prob es with the [employer] 4800 system. The yamilex t individually d etects genotypes 16 an d 18, as well as the oth er 12 high risk types (31,33,35,39,45 ,51,52,56 ,58,59,66,68). The expected result is negative. A neg ative result does not rule out the presence of HPV not included in the genotype set, a low leve l of infection or sp ecimen sampling error. UNLESS OTHERWISE INDIC ATED, ALL TESTING PERFORM ED ATCLINICAL PATH [facility]. [address] [place] [address] LABORATORY DIRE CTOR: SHADY VAZQUEZ M.D. CLIA NUMBER [id number] [place]. [id number] HPV HIGH RISK WITH GENOTYPE, [id number] 00:00:00 Test Item Value Reference Range Interpretation Comments HPV HIGH RISK INTERP (test code = NEGATIVE 43458) HPV 16 (test code = 75475) NEGATIVE HPV 18 (test code = 12716) NEGATIVE HPV, HR, OTHER GENOTYPES (test code NEGATIVE = 13894) HPV HIGH RISK WITH GENOTYPE, [id number] 00:00:00 Test Item Value Reference Range Interpretation Comments HPV HIGH RISK INTERP (test code = NEGATIVE 27341) HPV 16 (test code = 82697) NEGATIVE HPV 18 (test code = 12265) NEGATIVE HPV, HR, OTHER GENOTYPES (test code NEGATIVE = 44061) HPV HIGH RISK WITH GENOTYPE, [id number] 00:00:00 Test Item Value Reference Range Interpretation Comments HPV HIGH RISK INTERP (test code = NEGATIVE 59542) HPV 16 (test code = 91314) NEGATIVE HPV 18 (test code = 04651) NEGATIVE HPV, HR, OTHER GENOTYPES (test code NEGATIVE = 67602) HPV HIGH RISK WITH GENOTYPE, [id number] 00:00:00 Test Item Value Reference Range Interpretation Comments HPV HIGH RISK INTERP (test code = NEGATIVE 52257) HPV 16 (test code = 54739) NEGATIVE HPV 18 (test code = 46982) NEGATIVE HPV, HR, OTHER GENOTYPES (test code NEGATIVE = 74242) HPV HIGH RISK WITH GENOTYPE, [id number] 00:00:00 Test Item Value Reference Range Interpretation Comments HPV HIGH RISK INTERP (test code = NEGATIVE 47806) HPV 16 (test code = 65600) NEGATIVE HPV 18 (test code = 99101) NEGATIVE HPV, HR, OTHER GENOTYPES (test code NEGATIVE = 67167) HPV HIGH RISK WITH GENOTYPE, [id number] 00:00:00 Test Item Value Reference Range Interpretation Comments HPV HIGH RISK INTERP (test code = NEGATIVE 80383) HPV 16 (test code = 86757) NEGATIVE HPV 18 (test code = 96610) NEGATIVE HPV, HR, OTHER GENOTYPES (test code NEGATIVE = 01558) TSH, THIRD [id number] 00:30:50 Test Item Value Reference Range Interpretation Comments TSH, THIRD GENERATION (test code 6.320 UIU/ML 0.400-4.100 H = 2821) LIPID [id number] 00:15:36 Test Item Value Reference Range Interpretation [...] MOREINFORMATION , SEE CLIENT ANNOUNCE MENT AT [email or web address] RISK RATIO LDL/HDL 0.95 RATIO <3.22 (test code = 2238) COMPREHENSIVE METABOLIC [id number] 00:15:36 Test Item Value Reference Range Interpretation Comments GLUCOSE (test code = 109 MG/DL 70-99 H 2216) BUN (test code = 27 MG/DL 8-23 H 2207) CREATININE (test 1.82 MG/DL 0.60-1.30 H code = 2214) eGFR (2020 CKD-EPI) 31 ML/MIN/1.73 >60 L (test code = 77318) CALC BUN/CREAT (test 15 RATIO 6-28 code = 2235) SODIUM (test code = 136 MEQ/L 020-724 7872) POTASSIUM (test code 3.7 MEQ/L 3.5-5.4 = 2227) CHLORIDE (test code 94 MEQ/L 95-107 L = 2215) CARBON DIOXIDE (test 21 MEQ/L 19-31 code = 2206) CALCIUM (test code = 10.4 MG/DL 8.5-10.5 2208) PROTEIN, TOTAL (test 8.2 G/DL 6.1-8.3 code = 2229) ALBUMIN (test code = 4.9 G/DL 3.5-5.2 2200) CALC GLOBULIN (test 3.3 G/DL 1.9-3.7 code = 2240) CALC A/G RATIO (test 1.5 RATIO 1.0-2.6 code = 2234) BILIRUBIN, TOTAL 0.8 MG/DL See_Comment [Automated message] (test code = 220) The syste m which generated this result transmit rafael reference range : <=1.2. The refe rence range was not u sed to interpret th is result as normal/abnormal . ALKALINE PHOSPHATASE 69 U/L 40-140 (test code = 2204) AST (test code = 38 U/L 9-40 2217) ALT (test code = 37 U/L 5-40 2218) LIPID [id number] 00:00:00 Test Item Value Reference Range Interpretation Comments CHOLESTEROL (test code = 2210) 247 MG/DL TRIGLYCERIDES (test code = 2232) 265 MG/DL HDL CHOLESTEROL (test code = 2220) 107 MG/DL CALC LDL CHOL (test code = 2237) 102 MG/DL RISK RATIO LDL/HDL (test code = 0.95 RATIO 2238) LIPID [id number] 00:00:00 Test Item Value Reference Range Interpretation Comments CHOLESTEROL (test code = 2210) 247 MG/DL TRIGLYCERIDES (test code = 2232) 265 MG/DL HDL CHOLESTEROL (test code = 2220) 107 MG/DL CALC LDL CHOL (test code = 2237) 102 MG/DL RISK RATIO LDL/HDL (test code = 0.95 RATIO 2238) COMPREHENSIVE METABOLIC [id number] 00:00:00 Test Item Value Reference Range Interpretation Comments GLUCOSE (test code = 2217) 109 MG/DL BUN (test code = 2208) 27 MG/DL CREATININE (test code = 2214) 1.82 MG/DL eGFR (2020 CKD-EPI) (test code 31 ML/MIN/1.73 = 66556) CALC BUN/CREAT (test code = 15 RATIO 2235) SODIUM (test code = 2231) 136 MEQ/L POTASSIUM (test code = 2228) 3.7 MEQ/L CHLORIDE (test code = 2215) 94 MEQ/L CARBON DIOXIDE (test code = 21 MEQ/L 2206) CALCIUM (test code = 2209) 10.4 MG/DL [...] code = 2219) 37 U/L COMPREHENSIVE METABOLIC [id number] 00:00:00 Test Item Value Reference Range Interpretation Comments GLUCOSE (test code = 2217) 109 MG/DL BUN (test code = 2208) 27 MG/DL CREATININE (test code = 2214) 1.82 MG/DL eGFR (2020 CKD-EPI) (test code 31 ML/MIN/1.73 = 89638) CALC BUN/CREAT (test code = 15 RATIO 2235) SODIUM (test code = 2231) 136 MEQ/L POTASSIUM (test code = 2228) 3.7 MEQ/L CHLORIDE (test code = 2215) 94 MEQ/L CARBON DIOXIDE (test code = 21 MEQ/L 2206) CALCIUM (test code = 2209) 10.4 MG/DL [...] ALT (test code = 2219) 37 U/L [id number] 00:00:00 Test Item Value Reference Range Interpretation Comments TSH, THIRD GENERATION (test code 6.320 UIU/ML = 2821) [id number] 00:00:00 Test Item Value Reference Range Interpretation Comments TSH, THIRD GENERATION (test code 6.320 UIU/ML = 2821) [id number] 00:00:00 Test Item Value Reference Range Interpretation Comments TSH, THIRD GENERATION (test code 6.320 UIU/ML = 2821) LIPID [id number] 00:00:00 Test Item Value Reference Range Interpretation Comments CHOLESTEROL (test code = 2210) 247 MG/DL TRIGLYCERIDES (test code = 2232) 265 MG/DL HDL CHOLESTEROL (test code = 2220) 107 MG/DL CALC LDL CHOL (test code = 2237) 102 MG/DL RISK RATIO LDL/HDL (test code = 0.95 RATIO 2238) LIPID [id number] 00:00:00 Test Item Value Reference Range Interpretation Comments CHOLESTEROL (test code = 2210) 247 MG/DL TRIGLYCERIDES (test code = 2232) 265 MG/DL HDL CHOLESTEROL (test code = 2220) 107 MG/DL CALC LDL CHOL (test code = 2237) 102 MG/DL RISK RATIO LDL/HDL (test code = 0.95 RATIO 2238) COMPREHENSIVE METABOLIC [id number] 00:00:00 Test Item Value Reference Range Interpretation Comments GLUCOSE (test code = 2217) 109 MG/DL BUN (test code = 2208) 27 MG/DL CREATININE (test code = 2214) 1.82 MG/DL eGFR (2020 CKD-EPI) (test code 31 ML/MIN/1.73 = 80434) CALC BUN/CREAT (test code = 15 RATIO [...] code = 2219) 37 U/L COMPREHENSIVE METABOLIC [id number] 00:00:00 Test Item Value Reference Range Interpretation Comments GLUCOSE (test code = 2217) 109 MG/DL BUN (test code = 2208) 27 MG/DL CREATININE (test code = 2214) 1.82 MG/DL eGFR (2020 CKD-EPI) (test code 31 ML/MIN/1.73 = 61288) CALC BUN/CREAT (test code = 15 RATIO [...] ALT (test code = 2219) 37 U/L [id number] 00:00:00 Test Item Value Reference Range Interpretation Comments TSH, THIRD GENERATION (test code 6.320 UIU/ML = 2821) [id number] 00:00:00 Test Item Value Reference Range Interpretation Comments TSH, THIRD GENERATION (test code 6.320 UIU/ML = 2821) [id number] 00:00:00 Test Item Value Reference Range Interpretation Comments TSH, THIRD GENERATION (test code 6.320 UIU/ML = 2821) LIPID [id number] 00:00:00 Test Item Value Reference Range Interpretation Comments CHOLESTEROL (test code = 2210) 247 MG/DL TRIGLYCERIDES (test code = 2232) 265 MG/DL HDL CHOLESTEROL (test code = 2220) 107 MG/DL CALC LDL CHOL (test code = 2237) 102 MG/DL RISK RATIO LDL/HDL (test code = 0.95 RATIO 8) LIPID [id number] 00:00:00 Test Item Value Reference Range Interpretation Comments CHOLESTEROL (test code = 2210) 247 MG/DL TRIGLYCERIDES (test code = 2232) 265 MG/DL HDL CHOLESTEROL (test code = 2220) 107 MG/DL CALC LDL CHOL (test code = 2237) 102 MG/DL RISK RATIO LDL/HDL (test code = 0.95 RATIO 2238) COMPREHENSIVE METABOLIC [id number] 00:00:00 Test Item Value Reference Range Interpretation Comments GLUCOSE (test code = 2217) 109 MG/DL BUN (test code = 2208) 27 MG/DL CREATININE (test code = 2214) 1.82 MG/DL eGFR (2020 CKD-EPI) (test code 31 ML/MIN/1.73 = 23871) CALC BUN/CREAT (test code = 15 RATIO [...] code = 2219) 37 U/L COMPREHENSIVE METABOLIC [id number] 00:00:00 Test Item Value Reference Range Interpretation Comments GLUCOSE (test code = 2217) 109 MG/DL BUN (test code = 2208) 27 MG/DL CREATININE (test code = 2214) 1.82 MG/DL eGFR (2020 CKD-EPI) (test code 31 ML/MIN/1.73 = 50116) CALC BUN/CREAT (test code = 15 RATIO [...] ALKALINE PHOSPHATASE (test 69 U/L code = 2203) AST (test code = 2218) 38 U/L ALT (test code = 2219) 37 U/L [id number] 00:00:00 Test Item Value Reference Range Interpretation Comments TSH, THIRD GENERATION (test code 6.320 UIU/ML = 2821) [id number] 00:00:00 Test Item Value Reference Range Interpretation Comments TSH, THIRD GENERATION (test code 6.320 UIU/ML = 2821) [id number] 00:00:00 Test Item Value Reference Range Interpretation Comments TSH, THIRD GENERATION (test code 6.320 UIU/ML = 2821) HEMOGLOBIN [id number] 03:29:50 Test Item Value Reference Range Interpretation Comments HEMOGLOBIN A1c (test code = 01952) 6.3 % 4.2-5.6 H CBC W/AUTO DIFF WITH [id number] 03:01:52 Test Item Value Reference Range Interpretation [...] message] code = 1065) WBC'S The system [employer] generated this result transmitted ref erence range: [...] 0.00-0.11 UNLESS O THERWISE (test code = 12889) INDICATE D, ALL TESTING PERFORM ED ATCLINICAL PATH OLOGY [facility]IES, [facility]. [address] [place] [id number] [place] [address] DIRECTOR: SHADY ACKERMAN M.D. CLIA NUMBER [id number] CAP ACCREDITATION N O. [id number] HEMOGLOBIN [id number] 00:00:00 Test Item Value Reference Range Interpretation Comments HEMOGLOBIN A1c (test code = 28351) 6.3 % HEMOGLOBIN [id number] 00:00:00 Test Item Value Reference Range Interpretation Comments HEMOGLOBIN A1c (test code = 34660) 6.3 % HEMOGLOBIN [id number] 00:00:00 Test Item Value Reference Range Interpretation Comments HEMOGLOBIN A1c (test code = 86672) 6.3 % CBC W/AUTO [id number] 00:00:00 Test Item Value Reference Range Interpretation [...] NUCLEATED RBCS (test code = 0.00 K/UL 32600) CBC W/AUTO [id number] 00:00:00 Test Item Value Reference Range Interpretation [...] NUCLEATED RBCS (test code = 0.00 K/UL 39001) CBC W/AUTO [id number] 00:00:00 Test Item Value Reference Range Interpretation [...] NUCLEATED RBCS (test code = 0.00 K/UL 93057) HEMOGLOBIN [id number] 00:00:00 Test Item Value Reference Range Interpretation Comments HEMOGLOBIN A1c (test code = 51142) 6.3 % HEMOGLOBIN [id number] 00:00:00 Test Item Value Reference Range Interpretation Comments HEMOGLOBIN A1c (test code = 69227) 6.3 % HEMOGLOBIN [id number] 00:00:00 Test Item Value Reference Range Interpretation Comments HEMOGLOBIN A1c (test code = 49506) 6.3 % CBC W/AUTO [id number] 00:00:00 Test Item Value Reference Range Interpretation [...] NUCLEATED RBCS (test code = 0.00 K/UL 00886) CBC W/AUTO [id number] 00:00:00 Test Item Value Reference Range Interpretation [...] NUCLEATED RBCS (test code = 0.00 K/UL 44591) CBC W/AUTO [id number] 00:00:00 Test Item Value Reference Range Interpretation [...] NUCLEATED RBCS (test code = 0.00 K/UL 66294) HEMOGLOBIN [id number] 00:00:00 Test Item Value Reference Range Interpretation Comments HEMOGLOBIN A1c (test code = 06649) 6.3 % HEMOGLOBIN [id number] 00:00:00 Test Item Value Reference Range Interpretation Comments HEMOGLOBIN A1c (test code = 38439) 6.3 % HEMOGLOBIN [id number] 00:00:00 Test Item Value Reference Range Interpretation Comments HEMOGLOBIN A1c (test code = 69202) 6.3 % CBC W/AUTO [id number] 00:00:00 Test Item Value Reference Range Interpretation [...] NUCLEATED RBCS (test code = 0.00 K/UL 77814) CBC W/AUTO [id number] 00:00:00 Test Item Value Reference Range Interpretation [...] NUCLEATED RBCS (test code = 0.00 K/UL 07545) CBC W/AUTO [id number] 00:00:00 Test Item Value Reference Range Interpretation [...] NUCLEATED RBCS (test code = 0.00 K/UL 49772) COMPREHENSIVE METABOLIC [id number] 00:00:00 Test Item Value Reference Range Interpretation Comments GLUCOSE (test code = 2217) 195 MG/DL BUN (test code = 2208) 15 MG/DL CREATININE (test code = 2214) 0.70 MG/DL eGFR AMER. (test code 108 ML/MIN/1.73 = 93057) eGFR NON- AMER. (test 93 ML/MIN/1.73 code = 48236) CALC BUN/CREAT (test code = 21 RATIO [...] code = 2219) 13 U/L COMPREHENSIVE METABOLIC [id number] 00:00:00 Test Item Value Reference Range Interpretation Comments GLUCOSE (test code = 2217) 195 MG/DL BUN (test code = 2208) 15 MG/DL CREATININE (test code = 2214) 0.70 MG/DL eGFR AMER. (test code 108 ML/MIN/1.73 = 98820) eGFR NON- AMER. (test 93 ML/MIN/1.73 code = 30140) CALC BUN/CREAT (test code = 21 RATIO [...] (test code = 2219) 13 U/L LIPID [id number] 00:00:00 Test Item Value Reference Range Interpretation Comments CHOLESTEROL (test code = 2210) 257 MG/DL TRIGLYCERIDES (test code = 2232) 189 MG/DL HDL CHOLESTEROL (test code = 2220) 49 MG/DL CALC LDL CHOL (test code = 2237) 174 MG/DL RISK RATIO LDL/HDL (test code = 3.55 RATIO 2238) LIPID [id number] 00:00:00 Test Item Value Reference Range Interpretation Comments CHOLESTEROL (test code = 2210) 257 MG/DL TRIGLYCERIDES (test code = 2232) 189 MG/DL HDL CHOLESTEROL (test code = 2220) 49 MG/DL CALC LDL CHOL (test code = 2237) 174 MG/DL RISK RATIO LDL/HDL (test code = 3.55 RATIO 2238) HEMOGLOBIN [id number] 00:00:00 Test Item Value Reference Range Interpretation Comments HEMOGLOBIN A1c (test code = 52657) 9.2 % HEMOGLOBIN [id number] 00:00:00 Test Item Value Reference Range Interpretation Comments HEMOGLOBIN A1c (test code = 97397) 9.2 % HEMOGLOBIN [id number] 00:00:00 Test Item Value Reference Range Interpretation Comments HEMOGLOBIN A1c (test code = 91643) 9.2 % COMPREHENSIVE METABOLIC [id number] 00:00:00 Test Item Value Reference Range Interpretation Comments GLUCOSE (test code = 2217) 195 MG/DL BUN (test code = 2208) 15 MG/DL CREATININE (test code = 2214) 0.70 MG/DL eGFR AMER. (test code 108 ML/MIN/1.73 = 59537) eGFR NON- AMER. (test 93 ML/MIN/1.73 code = 79136) CALC BUN/CREAT (test code = 21 RATIO [...] code = 2219) 13 U/L COMPREHENSIVE METABOLIC [id number] 00:00:00 Test Item Value Reference Range Interpretation Comments GLUCOSE (test code = 2217) 195 MG/DL BUN (test code = 2208) 15 MG/DL CREATININE (test code = 2214) 0.70 MG/DL eGFR AMER. (test code 108 ML/MIN/1.73 = 33222) eGFR NON- AMER. (test 93 ML/MIN/1.73 code = 90682) CALC BUN/CREAT (test code = 21 RATIO [...] CALC GLOBULIN (test code = 2.7 G/DL 0) CALC A/G RATIO (test code = 1.7 RATIO 2234) BILIRUBIN, TOTAL (test code = 0.4 MG/DL 2206) ALKALINE PHOSPHATASE (test 63 U/L code = 2204) AST (test code = 2218) 16 U/L ALT (test code = 2219) 13 U/L LIPID [id number] 00:00:00 Test Item Value Reference Range Interpretation Comments CHOLESTEROL (test code = 2210) 257 MG/DL TRIGLYCERIDES (test code = 2232) 189 MG/DL HDL CHOLESTEROL (test code = 2220) 49 MG/DL CALC LDL CHOL (test code = 2237) 174 MG/DL RISK RATIO LDL/HDL (test code = 3.55 RATIO 2238) LIPID [id number] 00:00:00 Test Item Value Reference Range Interpretation Comments CHOLESTEROL (test code = 2210) 257 MG/DL TRIGLYCERIDES (test code = 2232) 189 MG/DL HDL CHOLESTEROL (test code = 2220) 49 MG/DL CALC LDL CHOL (test code = 2237) 174 MG/DL RISK RATIO LDL/HDL (test code = 3.55 RATIO 2238) HEMOGLOBIN [id number] 00:00:00 Test Item Value Reference Range Interpretation Comments HEMOGLOBIN A1c (test code = 69766) 9.2 % HEMOGLOBIN [id number] 00:00:00 Test Item Value Reference Range Interpretation Comments HEMOGLOBIN A1c (test code = 16468) 9.2 % HEMOGLOBIN [id number] 00:00:00 Test Item Value Reference Range Interpretation Comments HEMOGLOBIN A1c (test code = 68674) 9.2 % COMPREHENSIVE METABOLIC [id number] 00:00:00 Test Item Value Reference Range Interpretation Comments GLUCOSE (test code = 2217) 195 MG/DL BUN (test code = 2208) 15 MG/DL CREATININE (test code = 2214) 0.70 MG/DL eGFR AMER. (test code 108 ML/MIN/1.73 = 17375) eGFR NON- AMER. (test 93 ML/MIN/1.73 code = 08201) CALC BUN/CREAT (test code = 21 RATIO [...] code = 2219) 13 U/L COMPREHENSIVE METABOLIC [id number] 00:00:00 Test Item Value Reference Range Interpretation Comments GLUCOSE (test code = 2217) 195 MG/DL BUN (test code = 2208) 15 MG/DL CREATININE (test code = 2214) 0.70 MG/DL eGFR AMER. (test code 108 ML/MIN/1.73 = 41800) eGFR NON- AMER. (test 93 ML/MIN/1.73 code = 99649) CALC BUN/CREAT (test code = 21 RATIO [...] (test code = 2219) 13 U/L LIPID [id number] 00:00:00 Test Item Value Reference Range Interpretation Comments CHOLESTEROL (test code = 2210) 257 MG/DL TRIGLYCERIDES (test code = 2232) 189 MG/DL HDL CHOLESTEROL (test code = 2220) 49 MG/DL CALC LDL CHOL (test code = 2237) 174 MG/DL RISK RATIO LDL/HDL (test code = 3.55 RATIO 2238) LIPID [id number] 00:00:00 Test Item Value Reference Range Interpretation Comments CHOLESTEROL (test code = 2210) 257 MG/DL TRIGLYCERIDES (test code = 2232) 189 MG/DL HDL CHOLESTEROL (test code = 2220) 49 MG/DL CALC LDL CHOL (test code = 2237) 174 MG/DL RISK RATIO LDL/HDL (test code = 3.55 RATIO 2238) HEMOGLOBIN [id number] 00:00:00 Test Item Value Reference Range Interpretation Comments HEMOGLOBIN A1c (test code = 56073) 9.2 % HEMOGLOBIN [id number] 00:00:00 Test Item Value Reference Range Interpretation Comments HEMOGLOBIN A1c (test code = 16732) 9.2 % HEMOGLOBIN [id number] 00:00:00 Test Item Value Reference Range Interpretation Comments HEMOGLOBIN A1c (test code = 35972) 9.2 % COMPREHENSIVE METABOLIC [id number] 00:00:00 Test Item Value Reference Range Interpretation Comments GLUCOSE (test code = 2217) 199 MG/DL BUN (test code = 2208) 16 MG/DL CREATININE (test code = 2214) 0.85 MG/DL eGFR AMER. (test code 86 ML/MIN/1.73 = 43638) eGFR NON- AMER. (test 74 ML/MIN/1.73 code = 42928) CALC BUN/CREAT (test code = 19 RATIO [...] code = 2219) 22 U/L COMPREHENSIVE METABOLIC [id number] 00:00:00 Test Item Value Reference Range Interpretation Comments GLUCOSE (test code = 2217) 199 MG/DL BUN (test code = 2208) 16 MG/DL CREATININE (test code = 2214) 0.85 MG/DL eGFR AMER. (test code 86 ML/MIN/1.73 = 83458) eGFR NON- AMER. (test 74 ML/MIN/1.73 code = 15187) CALC BUN/CREAT (test code = 19 RATIO [...] (test code = 2219) 22 U/L LIPID [id number] 00:00:00 Test Item Value Reference Range Interpretation Comments CHOLESTEROL (test code = 2210) 244 MG/DL TRIGLYCERIDES (test code = 2232) 226 MG/DL HDL CHOLESTEROL (test code = 2220) 57 MG/DL CALC LDL CHOL (test code = 2237) 151 MG/DL RISK RATIO LDL/HDL (test code = 2.65 RATIO 2238) LIPID [id number] 00:00:00 Test Item Value Reference Range Interpretation Comments CHOLESTEROL (test code = 2210) 244 MG/DL TRIGLYCERIDES (test code = 2232) 226 MG/DL HDL CHOLESTEROL (test code = 2220) 57 MG/DL CALC LDL CHOL (test code = 2237) 151 MG/DL RISK RATIO LDL/HDL (test code = 2.65 RATIO 2238) HEMOGLOBIN [id number] 00:00:00 Test Item Value Reference Range Interpretation Comments HEMOGLOBIN A1c (test code = 64868) 7.0 % HEMOGLOBIN [id number] 00:00:00 Test Item Value Reference Range Interpretation Comments HEMOGLOBIN A1c (test code = 37540) 7.0 % HEMOGLOBIN [id number] 00:00:00 Test Item Value Reference Range Interpretation Comments HEMOGLOBIN A1c (test code = 93927) 7.0 % COMPREHENSIVE METABOLIC [id number] 00:00:00 Test Item Value Reference Range Interpretation Comments GLUCOSE (test code = 2217) 199 MG/DL BUN (test code = 2208) 16 MG/DL CREATININE (test code = 2214) 0.85 MG/DL eGFR AMER. (test code 86 ML/MIN/1.73 = 15373) eGFR NON- AMER. (test 74 ML/MIN/1.73 code = 54633) CALC BUN/CREAT (test code = 19 RATIO [...] code = 2219) 22 U/L COMPREHENSIVE METABOLIC [id number] 00:00:00 Test Item Value Reference Range Interpretation Comments GLUCOSE (test code = 2217) 199 MG/DL BUN (test code = 2208) 16 MG/DL CREATININE (test code = 2214) 0.85 MG/DL eGFR AMER. (test code 86 ML/MIN/1.73 = 48414) eGFR NON- AMER. (test 74 ML/MIN/1.73 code = 27066) CALC BUN/CREAT (test code = 19 RATIO [...] (test code = 2219) 22 U/L LIPID [id number] 00:00:00 Test Item Value Reference Range Interpretation Comments CHOLESTEROL (test code = 2210) 244 MG/DL TRIGLYCERIDES (test code = 2232) 226 MG/DL HDL CHOLESTEROL (test code = 2220) 57 MG/DL CALC LDL CHOL (test code = 2237) 151 MG/DL RISK RATIO LDL/HDL (test code = 2.65 RATIO 2238) LIPID [id number] 00:00:00 Test Item Value Reference Range Interpretation Comments CHOLESTEROL (test code = 2210) 244 MG/DL TRIGLYCERIDES (test code = 2232) 226 MG/DL HDL CHOLESTEROL (test code = 2220) 57 MG/DL CALC LDL CHOL (test code = 2237) 151 MG/DL RISK RATIO LDL/HDL (test code = 2.65 RATIO 2238) HEMOGLOBIN [id number] 00:00:00 Test Item Value Reference Range Interpretation Comments HEMOGLOBIN A1c (test code = 51077) 7.0 % HEMOGLOBIN [id number] 00:00:00 Test Item Value Reference Range Interpretation Comments HEMOGLOBIN A1c (test code = 09990) 7.0 % HEMOGLOBIN [id number] 00:00:00 Test Item Value Reference Range Interpretation Comments HEMOGLOBIN A1c (test code = 77037) 7.0 % COMPREHENSIVE METABOLIC [id number] 00:00:00 Test Item Value Reference Range Interpretation Comments GLUCOSE (test code = 2217) 199 MG/DL BUN (test code = 2208) 16 MG/DL CREATININE (test code = 2214) 0.85 MG/DL eGFR AMER. (test code 86 ML/MIN/1.73 = 46479) eGFR NON- AMER. (test 74 ML/MIN/1.73 code = 43014) CALC BUN/CREAT (test code = 19 RATIO [...] code = 2219) 22 U/L COMPREHENSIVE METABOLIC [id number] 00:00:00 Test Item Value Reference Range Interpretation Comments GLUCOSE (test code = 2217) 199 MG/DL BUN (test code = 2208) 16 MG/DL CREATININE (test code = 2214) 0.85 MG/DL eGFR AMER. (test code 86 ML/MIN/1.73 = 73962) eGFR NON- AMER. (test 74 ML/MIN/1.73 code = 37947) CALC BUN/CREAT (test code = 19 RATIO [...] CALC GLOBULIN (test code = 3.2 G/DL 0) CALC A/G RATIO (test code = 1.5 RATIO 2234) BILIRUBIN, TOTAL (test code = 0.5 MG/DL 7) ALKALINE PHOSPHATASE (test 118 U/L code = 2204) AST (test code = 2218) 18 U/L ALT (test code = 2219) 22 U/L LIPID [id number] 00:00:00 Test Item Value Reference Range Interpretation Comments CHOLESTEROL (test code = 2210) 244 MG/DL TRIGLYCERIDES (test code = 2232) 226 MG/DL HDL CHOLESTEROL (test code = 2220) 57 MG/DL CALC LDL CHOL (test code = 2237) 151 MG/DL RISK RATIO LDL/HDL (test code = 2.65 RATIO 2238) LIPID [id number] 00:00:00 Test Item Value Reference Range Interpretation Comments CHOLESTEROL (test code = 2210) 244 MG/DL TRIGLYCERIDES (test code = 2232) 226 MG/DL HDL CHOLESTEROL (test code = 2220) 57 MG/DL CALC LDL CHOL (test code = 2237) 151 MG/DL RISK RATIO LDL/HDL (test code = 2.65 RATIO 2238) HEMOGLOBIN [id number] 00:00:00 Test Item Value Reference Range Interpretation Comments HEMOGLOBIN A1c (test code = 57122) 7.0 % HEMOGLOBIN [id number] 00:00:00 Test Item Value Reference Range Interpretation Comments HEMOGLOBIN A1c (test code = 24542) 7.0 % HEMOGLOBIN [id number] 00:00:00 Test Item Value Reference Range Interpretation Comments HEMOGLOBIN A1c (test code = 99940) 7.0 % SURGICAL PATHOLOGY [id number] 00:00:00 Test Item Value Reference Range Interpretation Comments DIAGNOSIS: (test code = 8200) (NOTE) COMMENTS: (test code = 8205) (NOTE) MICROSCOPIC DESCRIPTION: (test code = (NOTE) 8210) CLINICAL DATA: (test code = 8401) (NOTE) GROSS DESCRIPTION: (test code = 8220) (NOTE) PATHOLOGIST: (test code = 8250) (NOTE) CPT: (test code = 8400) (NOTE) SURGICAL PATHOLOGY [id number] 00:00:00 Test Item Value Reference Range Interpretation Comments DIAGNOSIS: (test code = 8200) (NOTE) COMMENTS: (test code = 8205) (NOTE) MICROSCOPIC DESCRIPTION: (test code = (NOTE) 8210) CLINICAL DATA: (test code = 8401) (NOTE) GROSS DESCRIPTION: (test code = 8220) (NOTE) PATHOLOGIST: (test code = 8250) (NOTE) CPT: (test code = 8400) (NOTE) SURGICAL PATHOLOGY [id number] 00:00:00 Test Item Value Reference Range Interpretation Comments DIAGNOSIS: (test code = 8200) (NOTE) COMMENTS: (test code = 8205) (NOTE) MICROSCOPIC DESCRIPTION: (test code = (NOTE) 8210) CLINICAL DATA: (test code = 8401) (NOTE) GROSS DESCRIPTION: (test code = 8220) (NOTE) PATHOLOGIST: (test code = 8250) (NOTE) CPT: (test code = 8400) (NOTE) SURGICAL PATHOLOGY [id number] 00:00:00 Test Item Value Reference Range Interpretation Comments DIAGNOSIS: (test code = 8200) (NOTE) COMMENTS: (test code = 8205) (NOTE) MICROSCOPIC DESCRIPTION: (test code = (NOTE) 8210) CLINICAL DATA: (test code = 8401) (NOTE) GROSS DESCRIPTION: (test code = 8220) (NOTE) PATHOLOGIST: (test code = 8250) (NOTE) CPT: (test code = 8400) (NOTE) SURGICAL PATHOLOGY [id number] 00:00:00 Test Item Value Reference Range Interpretation Comments DIAGNOSIS: (test code = 8200) (NOTE) COMMENTS: (test code = 8205) (NOTE) MICROSCOPIC DESCRIPTION: (test code = (NOTE) 8210) CLINICAL DATA: (test code = 8401) (NOTE) GROSS DESCRIPTION: (test code = 8220) (NOTE) PATHOLOGIST: (test code = 8250) (NOTE) CPT: (test code = 8400) (NOTE) SURGICAL PATHOLOGY [id number] 00:00:00 Test Item Value Reference Range Interpretation Comments DIAGNOSIS: (test code = 8200) (NOTE) COMMENTS: (test code = 8205) (NOTE) MICROSCOPIC DESCRIPTION: (test code = (NOTE) 8210) CLINICAL DATA: (test code = 8401) (NOTE) GROSS DESCRIPTION: (test code = 8220) (NOTE) PATHOLOGIST: (test code = 8250) (NOTE) CPT: (test code = 8400) (NOTE) SURGICAL PATHOLOGY [id number] 00:00:00 Test Item Value Reference Range Interpretation Comments DIAGNOSIS: (test code = 8200) (NOTE) COMMENTS: (test code = 8205) (NOTE) MICROSCOPIC DESCRIPTION: (test code = (NOTE) 8210) CLINICAL DATA: (test code = 8401) (NOTE) GROSS DESCRIPTION: (test code = 8220) (NOTE) PATHOLOGIST: (test code = 8250) (NOTE) CPT: (test code = 8400) (NOTE) SURGICAL PATHOLOGY [id number] 00:00:00 Test Item Value Reference Range Interpretation Comments DIAGNOSIS: (test code = 8200) (NOTE) COMMENTS: (test code = 8205) (NOTE) MICROSCOPIC DESCRIPTION: (test code = (NOTE) 8210) CLINICAL DATA: (test code = 8401) (NOTE) GROSS DESCRIPTION: (test code = 8220) (NOTE) PATHOLOGIST: (test code = 8250) (NOTE) CPT: (test code = 8400) (NOTE) SURGICAL PATHOLOGY [id number] 00:00:00 Test Item Value Reference Range Interpretation Comments DIAGNOSIS: (test code = 8200) (NOTE) COMMENTS: (test code = 8205) (NOTE) MICROSCOPIC DESCRIPTION: (test code = (NOTE) 8210) CLINICAL DATA: (test code = 8401) (NOTE) GROSS DESCRIPTION: (test code = 8220) (NOTE) PATHOLOGIST: (test code = 8250) (NOTE) CPT: (test code = 8400) (NOTE) SURGICAL PATHOLOGY [id number] 00:00:00 Test Item Value Reference Range Interpretation Comments DIAGNOSIS: (test code = 8200) (NOTE) COMMENTS: (test code = 8205) (NOTE) MICROSCOPIC DESCRIPTION: (test code = (NOTE) 8210) CLINICAL DATA: (test code = 8401) (NOTE) GROSS DESCRIPTION: (test code = 8220) (NOTE) PATHOLOGIST: (test code = 8250) (NOTE) CPT: (test code = 8400) (NOTE) SURGICAL PATHOLOGY [id number] 00:00:00 Test Item Value Reference Range Interpretation Comments DIAGNOSIS: (test code = 8200) (NOTE) COMMENTS: (test code = 8205) (NOTE) MICROSCOPIC DESCRIPTION: (test code = (NOTE) 8210) CLINICAL DATA: (test code = 8401) (NOTE) GROSS DESCRIPTION: (test code = 8220) (NOTE) PATHOLOGIST: (test code = 8250) (NOTE) CPT: (test code = 8400) (NOTE) SURGICAL PATHOLOGY [id number] 00:00:00 Test Item Value Reference Range Interpretation Comments DIAGNOSIS: (test code = 8200) (NOTE) COMMENTS: (test code = 8205) (NOTE) MICROSCOPIC DESCRIPTION: (test code = (NOTE) 8210) CLINICAL DATA: (test code = 8401) (NOTE) GROSS DESCRIPTION: (test code = 8220) (NOTE) PATHOLOGIST: (test code = 8250) (NOTE) CPT: (test code = 8400) (NOTE) PAP TEST, THINPREP, [id number] 00:00:00 Test Item Value Reference Range Interpretation Comments SOURCE: (test code = 8001) Cervical SLIDES: (test code = 8011) 1 LMP: (test code = 8021) 1998 SPECIMEN ADEQUACY: (test (NOTE) code = 21884) INTERPRETATION: (test code LSIL/EPITH. = 83100) ABNORMALITY; SEE BELOW OTHER COMMENTS: (test code (NOTE) = 8081) MEDICAL OFFICE SUPERVISOR: (test Elisha Cox, CT code = 8101) (ASCP) PATHOLOGIST INTERPRETATION [employer] BY: (test code = 8122) LOCATION: (test code = (NOTE) 61697) CPT: (test code = 8140) (NOTE) PAP TEST, THINPREP, [id number] 00:00:00 Test Item Value Reference Range Interpretation Comments SOURCE: (test code = 8001) Cervical SLIDES: (test code = 8011) 1 LMP: (test code = 8021) 1998 SPECIMEN ADEQUACY: (test (NOTE) code = 31289) INTERPRETATION: (test code LSIL/EPITH. = 34614) ABNORMALITY; SEE BELOW OTHER COMMENTS: (test code (NOTE) = 8081) MEDICAL OFFICE SUPERVISOR: (test Elisha Cox, CT code = 8101) (ASCP) PATHOLOGIST INTERPRETATION [employer] BY: (test code = 8122) LOCATION: (test code = (NOTE) 38862) CPT: (test code = 8140) (NOTE) PAP TEST, THINPREP, [id number] 00:00:00 Test Item Value Reference Range Interpretation Comments SOURCE: (test code = 8001) Cervical SLIDES: (test code = 8011) 1 LMP: (test code = 8021) 1998 SPECIMEN ADEQUACY: (test (NOTE) code = 23482) INTERPRETATION: (test code LSIL/EPITH. = 28810) ABNORMALITY; SEE BELOW OTHER COMMENTS: (test code (NOTE) = 8081) MEDICAL OFFICE SUPERVISOR: (test Elisha Cox, CT code = 8101) (ASCP) PATHOLOGIST INTERPRETATION [employer] BY: (test code = 8122) LOCATION: (test code = (NOTE) 47599) CPT: (test code = 8140) (NOTE) PAP TEST, THINPREP, [id number] 00:00:00 Test Item Value Reference Range Interpretation Comments SOURCE: (test code = 8001) Cervical SLIDES: (test code = 8011) 1 LMP: (test code = 8021) 1998 SPECIMEN ADEQUACY: (test (NOTE) code = 78655) INTERPRETATION: (test code LSIL/EPITH. = 24666) ABNORMALITY; SEE BELOW OTHER COMMENTS: (test code (NOTE) = 8081) MEDICAL OFFICE SUPERVISOR: (test Elisha Cox, CT code = 8101) (ASCP) PATHOLOGIST INTERPRETATION [employer] BY: (test code = 8122) LOCATION: (test code = (NOTE) 17418) CPT: (test code = 8140) (NOTE) PAP TEST, THINPREP, [id number] 00:00:00 Test Item Value Reference Range Interpretation Comments SOURCE: (test code = 8001) Cervical SLIDES: (test code = 8011) 1 LMP: (test code = 8021) 1998 SPECIMEN ADEQUACY: (test (NOTE) code = 54084) INTERPRETATION: (test code LSIL/EPITH. = 42828) ABNORMALITY; SEE BELOW OTHER COMMENTS: (test code (NOTE) = 8081) MEDICAL OFFICE SUPERVISOR: (test Elisha Cox, CT code = 8101) (ASCP) PATHOLOGIST INTERPRETATION [employer] BY: (test code = 8122) LOCATION: (test code = (NOTE) 85023) CPT: (test code = 8140) (NOTE) PAP TEST, THINPREP, [id number] 00:00:00 Test Item Value Reference Range Interpretation Comments SOURCE: (test code = 8001) Cervical SLIDES: (test code = 8011) 1 LMP: (test code = 8021) 1998 SPECIMEN ADEQUACY: (test (NOTE) code = 52462) INTERPRETATION: (test code LSIL/EPITH. = 23635) ABNORMALITY; SEE BELOW OTHER COMMENTS: (test code (NOTE) = 8081) MEDICAL OFFICE SUPERVISOR: (test Elisha Cox, CT code = 8101) (ASCP) PATHOLOGIST INTERPRETATION [employer] BY: (test code = 8122) LOCATION: (test code = (NOTE) 29418) CPT: (test code = 8140) (NOTE) VAGINAL PATHOGENS DNA [id number] 00:00:00 Test Item Value Reference Range Interpretation Comments KEELY SPECIES (test code = ) NEGATIVE G. VAGINALIS (test code = 53146) POSITIVE T. VAGINALIS (test code = 72238) NEGATIVE VAGINAL PATHOGENS DNA [id number] 00:00:00 Test Item Value Reference Range Interpretation Comments KEELY SPECIES (test code = ) NEGATIVE G. VAGINALIS (test code = 84312) POSITIVE T. VAGINALIS (test code = 73581) NEGATIVE HPV HIGH RISK WITH GENOTYPE, [id number] 00:00:00 Test Item Value Reference Range Interpretation Comments HPV HIGH RISK INTERP (test code = POSITIVE 45231) HPV 16 (test code = 91760) NEGATIVE HPV 18 (test code = 21701) POSITIVE HPV, HR, OTHER GENOTYPES (test code POSITIVE = 91247) HPV HIGH RISK WITH GENOTYPE, [id number] 00:00:00 Test Item Value Reference Range Interpretation Comments HPV HIGH RISK INTERP (test code = POSITIVE 44551) HPV 16 (test code = 37277) NEGATIVE HPV 18 (test code = 82171) POSITIVE HPV, HR, OTHER GENOTYPES (test code POSITIVE = 98219) VAGINAL PATHOGENS DNA [id number] 00:00:00 Test Item Value Reference Range Interpretation Comments KEELY SPECIES (test code = ) NEGATIVE G. VAGINALIS (test code = 68539) POSITIVE T. VAGINALIS (test code = 13348) NEGATIVE VAGINAL PATHOGENS DNA [id number] 00:00:00 Test Item Value Reference Range Interpretation Comments KEELY SPECIES (test code = ) NEGATIVE G. VAGINALIS (test code = 85160) POSITIVE T. VAGINALIS (test code = 58293) NEGATIVE HPV HIGH RISK WITH GENOTYPE, [id number] 00:00:00 Test Item Value Reference Range Interpretation Comments HPV HIGH RISK INTERP (test code = POSITIVE 45091) HPV 16 (test code = 97886) NEGATIVE HPV 18 (test code = 13284) POSITIVE HPV, HR, OTHER GENOTYPES (test code POSITIVE = 16393) HPV HIGH RISK WITH GENOTYPE, [id number] 00:00:00 Test Item Value Reference Range Interpretation Comments HPV HIGH RISK INTERP (test code = POSITIVE 64589) HPV 16 (test code = 37350) NEGATIVE HPV 18 (test code = 91837) POSITIVE HPV, HR, OTHER GENOTYPES (test code POSITIVE = 66495) VAGINAL PATHOGENS DNA [id number] 00:00:00 Test Item Value Reference Range Interpretation Comments KEELY SPECIES (test code = ) NEGATIVE G. VAGINALIS (test code = 24444) POSITIVE T. VAGINALIS (test code = 63708) NEGATIVE VAGINAL PATHOGENS DNA [id number] 00:00:00 Test Item Value Reference Range Interpretation Comments KEELY SPECIES (test code = ) NEGATIVE G. VAGINALIS (test code = 92664) POSITIVE T. VAGINALIS (test code = 76378) NEGATIVE HPV HIGH RISK WITH GENOTYPE, [id number] 00:00:00 Test Item Value Reference Range Interpretation Comments HPV HIGH RISK INTERP (test code = POSITIVE 27518) HPV 16 (test code = 49510) NEGATIVE HPV 18 (test code = 01177) POSITIVE HPV, HR, OTHER GENOTYPES (test code POSITIVE = 98074) HPV HIGH RISK WITH GENOTYPE, [id number] 00:00:00 Test Item Value Reference Range Interpretation Comments HPV HIGH RISK INTERP (test code = POSITIVE 66538) HPV 16 (test code = 03240) NEGATIVE HPV 18 (test code = 34474) POSITIVE HPV, HR, OTHER GENOTYPES (test code POSITIVE = 87820) HEMOGLOBIN [id number] 00:00:00 Test Item Value Reference Range Interpretation Comments HEMOGLOBIN A1c (test code = 13651) 6.1 % HEMOGLOBIN [id number] 00:00:00 Test Item Value Reference Range Interpretation Comments HEMOGLOBIN A1c (test code = 49128) 6.1 % HEMOGLOBIN [id number] 00:00:00 Test Item Value Reference Range Interpretation Comments HEMOGLOBIN A1c (test code = 14652) 6.1 % LIPID [id number] 00:00:00 Test Item Value Reference Range Interpretation Comments CHOLESTEROL (test code = 2210) 252 MG/DL TRIGLYCERIDES (test code = 2232) 611 MG/DL HDL CHOLESTEROL (test code = 65 MG/DL 2220) CALC LDL CHOL (test code = 2237) (NOTE) MG/DL RISK RATIO LDL/HDL (test code = (NOTE) RATIO 2238) LIPID [id number] 00:00:00 Test Item Value Reference Range Interpretation Comments CHOLESTEROL (test code = 2210) 252 MG/DL TRIGLYCERIDES (test code = 2232) 611 MG/DL HDL CHOLESTEROL (test code = 65 MG/DL 2220) CALC LDL CHOL (test code = 2237) (NOTE) MG/DL RISK RATIO LDL/HDL (test code = (NOTE) RATIO 2238) COMPREHENSIVE METABOLIC [id number] 00:00:00 Test Item Value Reference Range Interpretation Comments GLUCOSE (test code = 2217) 121 MG/DL BUN (test code = 2208) 27 MG/DL CREATININE (test code = 2214) 1.49 MG/DL eGFR AMER. (test code 43 ML/MIN/1.73 = 91226) eGFR NON- AMER. (test 38 ML/MIN/1.73 code = 47972) CALC BUN/CREAT (test code = 18 RATIO [...] code = 2219) 43 U/L COMPREHENSIVE METABOLIC [id number] 00:00:00 Test Item Value Reference Range Interpretation Comments GLUCOSE (test code = 2217) 121 MG/DL BUN (test code = 2208) 27 MG/DL CREATININE (test code = 2214) 1.49 MG/DL eGFR AMER. (test code 43 ML/MIN/1.73 = 64480) eGFR NON- AMER. (test 38 ML/MIN/1.73 code = 01881) CALC BUN/CREAT (test code = 18 RATIO [...] CALC GLOBULIN (test code = 3.1 G/DL 224) CALC A/G RATIO (test code = 1.5 RATIO 4) BILIRUBIN, TOTAL (test code = 0.6 MG/DL 2206) ALKALINE PHOSPHATASE (test 97 U/L code = 2204) AST (test code = 2218) 50 U/L ALT (test code = 2219) 43 U/L HEMOGLOBIN [id number] 00:00:00 Test Item Value Reference Range Interpretation Comments HEMOGLOBIN A1c (test code = 14838) 6.1 % HEMOGLOBIN [id number] 00:00:00 Test Item Value Reference Range Interpretation Comments HEMOGLOBIN A1c (test code = 49189) 6.1 % HEMOGLOBIN [id number] 00:00:00 Test Item Value Reference Range Interpretation Comments HEMOGLOBIN A1c (test code = 87637) 6.1 % LIPID [id number] 00:00:00 Test Item Value Reference Range Interpretation Comments CHOLESTEROL (test code = 2210) 252 MG/DL TRIGLYCERIDES (test code = 2232) 611 MG/DL HDL CHOLESTEROL (test code = 65 MG/DL 0) CALC LDL CHOL (test code = 2237) (NOTE) MG/DL RISK RATIO LDL/HDL (test code = (NOTE) RATIO 2238) LIPID [id number] 00:00:00 Test Item Value Reference Range Interpretation Comments CHOLESTEROL (test code = 2210) 252 MG/DL TRIGLYCERIDES (test code = 2232) 611 MG/DL HDL CHOLESTEROL (test code = 65 MG/DL 2220) CALC LDL CHOL (test code = 2237) (NOTE) MG/DL RISK RATIO LDL/HDL (test code = (NOTE) RATIO 2238) COMPREHENSIVE METABOLIC [id number] 00:00:00 Test Item Value Reference Range Interpretation Comments GLUCOSE (test code = 2217) 121 MG/DL BUN (test code = 2208) 27 MG/DL CREATININE (test code = 2214) 1.49 MG/DL eGFR AMER. (test code 43 ML/MIN/1.73 = 57562) eGFR NON- AMER. (test 38 ML/MIN/1.73 code = 98923) CALC BUN/CREAT (test code = 18 RATIO [...] BILIRUBIN, TOTAL (test code = 0.6 MG/DL 220) ALKALINE PHOSPHATASE (test 97 U/L code = 2204) AST (test code = 2218) 50 U/L ALT (test code = 2219) 43 U/L COMPREHENSIVE METABOLIC [id number] 00:00:00 Test Item Value Reference Range Interpretation Comments GLUCOSE (test code = 2217) 121 MG/DL BUN (test code = 2208) 27 MG/DL CREATININE (test code = 2214) 1.49 MG/DL eGFR AMER. (test code 43 ML/MIN/1.73 = 87793) eGFR NON- AMER. (test 38 ML/MIN/1.73 code = 53817) CALC BUN/CREAT (test code = 18 RATIO [...] (test code = 2219) 43 U/L HEMOGLOBIN [id number] 00:00:00 Test Item Value Reference Range Interpretation Comments HEMOGLOBIN A1c (test code = 28574) 6.1 % HEMOGLOBIN [id number] 00:00:00 Test Item Value Reference Range Interpretation Comments HEMOGLOBIN A1c (test code = 27946) 6.1 % HEMOGLOBIN [id number] 00:00:00 Test Item Value Reference Range Interpretation Comments HEMOGLOBIN A1c (test code = 05250) 6.1 % LIPID [id number] 00:00:00 Test Item Value Reference Range Interpretation Comments CHOLESTEROL (test code = 2210) 252 MG/DL TRIGLYCERIDES (test code = 2232) 611 MG/DL HDL CHOLESTEROL (test code = 65 MG/DL 0) CALC LDL CHOL (test code = 2237) (NOTE) MG/DL RISK RATIO LDL/HDL (test code = (NOTE) RATIO 2238) LIPID [id number] 00:00:00 Test Item Value Reference Range Interpretation Comments CHOLESTEROL (test code = 2210) 252 MG/DL TRIGLYCERIDES (test code = 2232) 611 MG/DL HDL CHOLESTEROL (test code = 65 MG/DL 2220) CALC LDL CHOL (test code = 2237) (NOTE) MG/DL RISK RATIO LDL/HDL (test code = (NOTE) RATIO 2238) COMPREHENSIVE METABOLIC [id number] 00:00:00 Test Item Value Reference Range Interpretation Comments GLUCOSE (test code = 2217) 121 MG/DL BUN (test code = 2208) 27 MG/DL CREATININE (test code = 2214) 1.49 MG/DL eGFR AMER. (test code 43 ML/MIN/1.73 = 57612) eGFR NON- AMER. (test 38 ML/MIN/1.73 code = 71433) CALC BUN/CREAT (test code = 18 RATIO [...] code = 2219) 43 U/L COMPREHENSIVE METABOLIC [id number] 00:00:00 Test Item Value Reference Range Interpretation Comments GLUCOSE (test code = 2217) 121 MG/DL BUN (test code = 2208) 27 MG/DL CREATININE (test code = 2214) 1.49 MG/DL eGFR AMER. (test code 43 ML/MIN/1.73 = 45473) eGFR NON- AMER. (test 38 ML/MIN/1.73 code = 69012) CALC BUN/CREAT (test code = 18 RATIO [...] (test code = 2219) 43 U/L HEMOGLOBIN [id number] 00:00:00 Test Item Value Reference Range Interpretation Comments HEMOGLOBIN A1c (test code = 58510) 8.5 % HEMOGLOBIN [id number] 00:00:00 Test Item Value Reference Range Interpretation Comments HEMOGLOBIN A1c (test code = 06936) 8.5 % HEMOGLOBIN [id number] 00:00:00 Test Item Value Reference Range Interpretation Comments HEMOGLOBIN A1c (test code = 18005) 8.5 % HEMOGLOBIN [id number] 00:00:00 Test Item Value Reference Range Interpretation Comments HEMOGLOBIN A1c (test code = 65338) 8.5 % HEMOGLOBIN [id number] 00:00:00 Test Item Value Reference Range Interpretation Comments HEMOGLOBIN A1c (test code = 89505) 8.5 % HEMOGLOBIN [id number] 00:00:00 Test Item Value Reference Range Interpretation Comments HEMOGLOBIN A1c (test code = 09584) 8.5 % HEMOGLOBIN [id number] 00:00:00 Test Item Value Reference Range Interpretation Comments HEMOGLOBIN A1c (test code = 97821) 8.5 % HEMOGLOBIN [id number] 00:00:00 Test Item Value Reference Range Interpretation Comments HEMOGLOBIN A1c (test code = 54858) 8.5 % HEMOGLOBIN [id number] 00:00:00 Test Item Value Reference Range Interpretation Comments HEMOGLOBIN A1c (test code = 57562) 8.5 % HEMOGLOBIN [id number] 00:00:00 Test Item Value Reference Range Interpretation Comments HEMOGLOBIN A1c (test code = 29689) 9.1 % HEMOGLOBIN [id number] 00:00:00 Test Item Value Reference Range Interpretation Comments HEMOGLOBIN A1c (test code = 76539) 9.1 % HEMOGLOBIN [id number] 00:00:00 Test Item Value Reference Range Interpretation Comments HEMOGLOBIN A1c (test code = 79666) 9.1 % COMPREHENSIVE METABOLIC [id number] 00:00:00 Test Item Value Reference Range Interpretation Comments GLUCOSE (test code = 2217) 176 MG/DL BUN (test code = 2208) 16 MG/DL CREATININE (test code = 2214) 0.87 MG/DL eGFR AMER. (test code 83 ML/MIN/1.73 = 60287) eGFR NON- AMER. (test 72 ML/MIN/1.73 code = 74581) CALC BUN/CREAT (test code = 18 RATIO [...] code = 2219) 21 U/L COMPREHENSIVE METABOLIC [id number] 00:00:00 Test Item Value Reference Range Interpretation Comments GLUCOSE (test code = 2217) 176 MG/DL BUN (test code = 2208) 16 MG/DL CREATININE (test code = 2214) 0.87 MG/DL eGFR AMER. (test code 83 ML/MIN/1.73 = 92231) eGFR NON- AMER. (test 72 ML/MIN/1.73 code = 76666) CALC BUN/CREAT (test code = 18 RATIO [...] (test code = 2219) 21 U/L LIPID [id number] 00:00:00 Test Item Value Reference Range Interpretation Comments CHOLESTEROL (test code = 2210) 228 MG/DL TRIGLYCERIDES (test code = 2232) 268 MG/DL HDL CHOLESTEROL (test code = 2220) 54 MG/DL CALC LDL CHOL (test code = 2237) 133 MG/DL RISK RATIO LDL/HDL (test code = 2.46 RATIO 2238) LIPID [id number] 00:00:00 Test Item Value Reference Range Interpretation Comments CHOLESTEROL (test code = 2210) 228 MG/DL TRIGLYCERIDES (test code = 2232) 268 MG/DL HDL CHOLESTEROL (test code = 2220) 54 MG/DL CALC LDL CHOL (test code = 2237) 133 MG/DL RISK RATIO LDL/HDL (test code = 2.46 RATIO 2238) HEMOGLOBIN [id number] 00:00:00 Test Item Value Reference Range Interpretation Comments HEMOGLOBIN A1c (test code = 81010) 9.1 % HEMOGLOBIN [id number] 00:00:00 Test Item Value Reference Range Interpretation Comments HEMOGLOBIN A1c (test code = 33186) 9.1 % HEMOGLOBIN [id number] 00:00:00 Test Item Value Reference Range Interpretation Comments HEMOGLOBIN A1c (test code = 45276) 9.1 % COMPREHENSIVE METABOLIC [id number] 00:00:00 Test Item Value Reference Range Interpretation Comments GLUCOSE (test code = 2217) 176 MG/DL BUN (test code = 2208) 16 MG/DL CREATININE (test code = 2214) 0.87 MG/DL eGFR AMER. (test code 83 ML/MIN/1.73 = 05126) eGFR NON- AMER. (test 72 ML/MIN/1.73 code = 87062) CALC BUN/CREAT (test code = 18 RATIO [...] code = 2219) 21 U/L COMPREHENSIVE METABOLIC [id number] 00:00:00 Test Item Value Reference Range Interpretation Comments GLUCOSE (test code = 2217) 176 MG/DL BUN (test code = 2208) 16 MG/DL CREATININE (test code = 2214) 0.87 MG/DL eGFR AMER. (test code 83 ML/MIN/1.73 = 87633) eGFR NON- AMER. (test 72 ML/MIN/1.73 code = 60129) CALC BUN/CREAT (test code = 18 RATIO [...] (test code = 2219) 21 U/L LIPID [id number] 00:00:00 Test Item Value Reference Range Interpretation Comments CHOLESTEROL (test code = 2210) 228 MG/DL TRIGLYCERIDES (test code = 2232) 268 MG/DL HDL CHOLESTEROL (test code = 2220) 54 MG/DL CALC LDL CHOL (test code = 2237) 133 MG/DL RISK RATIO LDL/HDL (test code = 2.46 RATIO 2238) LIPID [id number] 00:00:00 Test Item Value Reference Range Interpretation Comments CHOLESTEROL (test code = 2210) 228 MG/DL TRIGLYCERIDES (test code = 2232) 268 MG/DL HDL CHOLESTEROL (test code = 2220) 54 MG/DL CALC LDL CHOL (test code = 2237) 133 MG/DL RISK RATIO LDL/HDL (test code = 2.46 RATIO 2238) HEMOGLOBIN [id number] 00:00:00 Test Item Value Reference Range Interpretation Comments HEMOGLOBIN A1c (test code = 99797) 9.1 % HEMOGLOBIN [id number] 00:00:00 Test Item Value Reference Range Interpretation Comments HEMOGLOBIN A1c (test code = 05715) 9.1 % HEMOGLOBIN [id number] 00:00:00 Test Item Value Reference Range Interpretation Comments HEMOGLOBIN A1c (test code = 00003) 9.1 % COMPREHENSIVE METABOLIC [id number] 00:00:00 Test Item Value Reference Range Interpretation Comments GLUCOSE (test code = 2217) 176 MG/DL BUN (test code = 2208) 16 MG/DL CREATININE (test code = 2214) 0.87 MG/DL eGFR AMER. (test code 83 ML/MIN/1.73 = 92412) eGFR NON- AMER. (test 72 ML/MIN/1.73 code = 99705) CALC BUN/CREAT (test code = 18 RATIO [...] CALC GLOBULIN (test code = 2.9 G/DL 0) CALC A/G RATIO (test code = 1.7 RATIO 2234) BILIRUBIN, TOTAL (test code = 0.4 MG/DL 2206) ALKALINE PHOSPHATASE (test 89 U/L code = 2204) AST (test code = 2218) 19 U/L ALT (test code = 2219) 21 U/L COMPREHENSIVE METABOLIC [id number] 00:00:00 Test Item Value Reference Range Interpretation Comments GLUCOSE (test code = 2217) 176 MG/DL BUN (test code = 2208) 16 MG/DL CREATININE (test code = 2214) 0.87 MG/DL eGFR AMER. (test code 83 ML/MIN/1.73 = 07526) eGFR NON- AMER. (test 72 ML/MIN/1.73 code = 10043) CALC BUN/CREAT (test code = 18 RATIO 2235) SODIUM (test code = 2231) 137 MEQ/L POTASSIUM (test code = 2228) 3.5 MEQ/L CHLORIDE (test code = 2215) 93 MEQ/L CARBON DIOXIDE (test code = 27 MEQ/L 220) CALCIUM (test code = 2209) 10.3 MG/DL [...] (test code = 2219) 21 U/L LIPID [id number] 00:00:00 Test Item Value Reference Range Interpretation Comments CHOLESTEROL (test code = 2210) 228 MG/DL TRIGLYCERIDES (test code = 2232) 268 MG/DL HDL CHOLESTEROL (test code = 2220) 54 MG/DL CALC LDL CHOL (test code = 2237) 133 MG/DL RISK RATIO LDL/HDL (test code = 2.46 RATIO 2238) LIPID [id number] 00:00:00 Test Item Value Reference Range Interpretation Comments CHOLESTEROL (test code = 2210) 228 MG/DL TRIGLYCERIDES (test code = 2232) 268 MG/DL HDL CHOLESTEROL (test code = 2220) 54 MG/DL CALC LDL CHOL (test code = 2237) 133 MG/DL RISK RATIO LDL/HDL (test code = 2.46 RATIO 2238) SURGICAL PATHOLOGY [id number] 00:00:00 Test Item Value Reference Range Interpretation Comments DIAGNOSIS: (test code = 8200) (NOTE) COMMENTS: (test code = 8205) (NOTE) MICROSCOPIC DESCRIPTION: (test code = (NOTE) 8210) CLINICAL DATA: (test code = 8401) (NOTE) GROSS DESCRIPTION: (test code = 8220) (NOTE) PATHOLOGIST: (test code = 8250) (NOTE) CPT: (test code = 8400) (NOTE) SURGICAL PATHOLOGY [id number] 00:00:00 Test Item Value Reference Range Interpretation Comments DIAGNOSIS: (test code = 8200) (NOTE) COMMENTS: (test code = 8205) (NOTE) MICROSCOPIC DESCRIPTION: (test code = (NOTE) 8210) CLINICAL DATA: (test code = 8401) (NOTE) GROSS DESCRIPTION: (test code = 8220) (NOTE) PATHOLOGIST: (test code = 8250) (NOTE) CPT: (test code = 8400) (NOTE) SURGICAL PATHOLOGY [id number] 00:00:00 Test Item Value Reference Range Interpretation Comments DIAGNOSIS: (test code = 8200) (NOTE) COMMENTS: (test code = 8205) (NOTE) MICROSCOPIC DESCRIPTION: (test code = (NOTE) 8210) CLINICAL DATA: (test code = 8401) (NOTE) GROSS DESCRIPTION: (test code = 8220) (NOTE) PATHOLOGIST: (test code = 8250) (NOTE) CPT: (test code = 8400) (NOTE) SURGICAL PATHOLOGY [id number] 00:00:00 Test Item Value Reference Range Interpretation Comments DIAGNOSIS: (test code = 8200) (NOTE) COMMENTS: (test code = 8205) (NOTE) MICROSCOPIC DESCRIPTION: (test code = (NOTE) 8210) CLINICAL DATA: (test code = 8401) (NOTE) GROSS DESCRIPTION: (test code = 8220) (NOTE) PATHOLOGIST: (test code = 8250) (NOTE) CPT: (test code = 8400) (NOTE) SURGICAL PATHOLOGY [id number] 00:00:00 Test Item Value Reference Range Interpretation Comments DIAGNOSIS: (test code = 8200) (NOTE) COMMENTS: (test code = 8205) (NOTE) MICROSCOPIC DESCRIPTION: (test code = (NOTE) 8210) CLINICAL DATA: (test code = 8401) (NOTE) GROSS DESCRIPTION: (test code = 8220) (NOTE) PATHOLOGIST: (test code = 8250) (NOTE) CPT: (test code = 8400) (NOTE) SURGICAL PATHOLOGY [id number] 00:00:00 Test Item Value Reference Range Interpretation Comments DIAGNOSIS: (test code = 8200) (NOTE) COMMENTS: (test code = 8205) (NOTE) MICROSCOPIC DESCRIPTION: (test code = (NOTE) 8210) CLINICAL DATA: (test code = 8401) (NOTE) GROSS DESCRIPTION: (test code = 8220) (NOTE) PATHOLOGIST: (test code = 8250) (NOTE) CPT: (test code = 8400) (NOTE) PAP TEST, THINPREP, [id number] 00:00:00 Test Item Value Reference Range Interpretation Comments SOURCE: (test code = 8001) Cervical/Endocervic al SLIDES: (test code = 8011) 1 LMP: (test code = 8021) SEE NOTE SPECIMEN ADEQUACY: (test (NOTE) code = 69317) INTERPRETATION: (test code LSIL/EPITH. = 58806) ABNORMALITY; SEE BELOW OTHER COMMENTS: (test code (NOTE) = 8081) MEDICAL OFFICE SUPERVISOR: (test Zeke code = 8101) DON Garcia(ASCP) PATHOLOGIST INTERPRETATION Nancy Flores BY: (test code = 8122) M.D. LOCATION: (test code = (NOTE) 26006) CPT: (test code = 8140) (NOTE) PAP TEST, THINPREP, [id number] 00:00:00 Test Item Value Reference Range Interpretation Comments SOURCE: (test code = 8001) Cervical/Endocervic al SLIDES: (test code = 8011) 1 LMP: (test code = 8021) SEE NOTE SPECIMEN ADEQUACY: (test (NOTE) code = 04174) INTERPRETATION: (test code LSIL/EPITH. = 79380) ABNORMALITY; SEE BELOW OTHER COMMENTS: (test code (NOTE) = 8081) MEDICAL OFFICE SUPERVISOR: (test Zeke code = 8101) DON Garcia(ASCP) PATHOLOGIST INTERPRETATION Nancy Flores BY: (test code = 8122) M.D. LOCATION: (test code = (NOTE) 26575) CPT: (test code = 8140) (NOTE) PAP TEST, THINPREP, [id number] 00:00:00 Test Item Value Reference Range Interpretation Comments SOURCE: (test code = 8001) Cervical/Endocervic al SLIDES: (test code = 8011) 1 LMP: (test code = 8021) SEE NOTE SPECIMEN ADEQUACY: (test (NOTE) code = 39868) INTERPRETATION: (test code LSIL/EPITH. = 01303) ABNORMALITY; SEE BELOW OTHER COMMENTS: (test code (NOTE) = 8081) MEDICAL OFFICE SUPERVISOR: (test Zeke code = 8101) DON Garcia(ASCP) PATHOLOGIST INTERPRETATION Nancy Flores BY: (test code = 8122) M.DOpal LOCATION: (test code = (NOTE) 54408) CPT: (test code = 8140) (NOTE) PAP TEST, THINPREP, [id number] 00:00:00 Test Item Value Reference Range Interpretation Comments SOURCE: (test code = 8001) Cervical/Endocervic al SLIDES: (test code = 8011) 1 LMP: (test code = 8021) SEE NOTE SPECIMEN ADEQUACY: (test (NOTE) code = 94733) INTERPRETATION: (test code LSIL/EPITH. = 67655) ABNORMALITY; SEE BELOW OTHER COMMENTS: (test code (NOTE) = 8081) MEDICAL OFFICE SUPERVISOR: (test Zeke code = 8101) DON Garcia(ASCP) PATHOLOGIST INTERPRETATION Nancy Flores BY: (test code = 8122) M.D. LOCATION: (test code = (NOTE) 65186) CPT: (test code = 8140) (NOTE) PAP TEST, THINPREP, [id number] 00:00:00 Test Item Value Reference Range Interpretation Comments SOURCE: (test code = 8001) Cervical/Endocervic al SLIDES: (test code = 8011) 1 LMP: (test code = 8021) SEE NOTE SPECIMEN ADEQUACY: (test (NOTE) code = 79420) INTERPRETATION: (test code LSIL/EPITH. = 86039) ABNORMALITY; SEE BELOW OTHER COMMENTS: (test code (NOTE) = 8081) MEDICAL OFFICE SUPERVISOR: (test Zeke code = 8101) DON Garcia(ASCP) PATHOLOGIST INTERPRETATION Nancycristina Flores BY: (test code = 8122) M.D. LOCATION: (test code = (NOTE) 82859) CPT: (test code = 8140) (NOTE) PAP TEST, THINPREP, [id number] 00:00:00 Test Item Value Reference Range Interpretation Comments SOURCE: (test code = 8001) Cervical/Endocervic al SLIDES: (test code = 8011) 1 LMP: (test code = 8021) SEE NOTE SPECIMEN ADEQUACY: (test (NOTE) code = 84066) INTERPRETATION: (test code LSIL/EPITH. = 98553) ABNORMALITY; SEE BELOW OTHER COMMENTS: (test code (NOTE) = 8081) MEDICAL OFFICE SUPERVISOR: (test Zeke code = 8101) DON Garcia(ASCP) PATHOLOGIST INTERPRETATION Nancy Flores, BY: (test code = 8122) M.D. LOCATION: (test code = (NOTE) 68900) CPT: (test code = 8140) (NOTE) VAGINAL PATHOGENS DNA [id number] 00:00:00 Test Item Value Reference Range Interpretation Comments KEELY SPECIES (test code = ) NEGATIVE G. VAGINALIS (test code = 69604) POSITIVE T. VAGINALIS (test code = 58421) NEGATIVE VAGINAL PATHOGENS DNA [id number] 00:00:00 Test Item Value Reference Range Interpretation Comments KEELY SPECIES (test code = ) NEGATIVE G. VAGINALIS (test code = 16829) POSITIVE T. VAGINALIS (test code = 77166) NEGATIVE HPV HIGH RISK WITH GENOTYPE, [id number] 00:00:00 Test Item Value Reference Range Interpretation Comments HPV HIGH RISK INTERP (test code = POSITIVE 89281) HPV 16 (test code = 59579) NEGATIVE HPV 18 (test code = 87790) POSITIVE HPV, HR, OTHER GENOTYPES (test code POSITIVE = 17032) HPV HIGH RISK WITH GENOTYPE, [id number] 00:00:00 Test Item Value Reference Range Interpretation Comments HPV HIGH RISK INTERP (test code = POSITIVE 24240) HPV 16 (test code = 17723) NEGATIVE HPV 18 (test code = 58037) POSITIVE HPV, HR, OTHER GENOTYPES (test code POSITIVE = 06765) VAGINAL PATHOGENS DNA [id number] 00:00:00 Test Item Value Reference Range Interpretation Comments KEELY SPECIES (test code = ) NEGATIVE G. VAGINALIS (test code = 98603) POSITIVE T. VAGINALIS (test code = 57879) NEGATIVE VAGINAL PATHOGENS DNA [id number] 00:00:00 Test Item Value Reference Range Interpretation Comments KEELY SPECIES (test code = 65452) NEGATIVE G. VAGINALIS (test code = 14401) POSITIVE T. VAGINALIS (test code = 76102) NEGATIVE HPV HIGH RISK WITH GENOTYPE, [id number] 00:00:00 Test Item Value Reference Range Interpretation Comments HPV HIGH RISK INTERP (test code = POSITIVE 93589) HPV 16 (test code = 88641) NEGATIVE HPV 18 (test code = 20984) POSITIVE HPV, HR, OTHER GENOTYPES (test code POSITIVE = 99926) HPV HIGH RISK WITH GENOTYPE, [id number] 00:00:00 Test Item Value Reference Range Interpretation Comments HPV HIGH RISK INTERP (test code = POSITIVE 66388) HPV 16 (test code = 33685) NEGATIVE HPV 18 (test code = 46355) POSITIVE HPV, HR, OTHER GENOTYPES (test code POSITIVE = 33953) VAGINAL PATHOGENS DNA [id number] 00:00:00 Test Item Value Reference Range Interpretation Comments KEELY SPECIES (test code = ) NEGATIVE G. VAGINALIS (test code = 62008) POSITIVE T. VAGINALIS (test code = 81042) NEGATIVE VAGINAL PATHOGENS DNA [id number] 00:00:00 Test Item Value Reference Range Interpretation Comments KEELY SPECIES (test code = ) NEGATIVE G. VAGINALIS (test code = 72817) POSITIVE T. VAGINALIS (test code = ) NEGATIVE HPV HIGH RISK WITH GENOTYPE, [id number] 00:00:00 Test Item Value Reference Range Interpretation Comments HPV HIGH RISK INTERP (test code = POSITIVE 25943) HPV 16 (test code = 88166) NEGATIVE HPV 18 (test code = 98380) POSITIVE HPV, HR, OTHER GENOTYPES (test code POSITIVE = 17989) HPV HIGH RISK WITH GENOTYPE, [id number] 00:00:00 Test Item Value Reference Range Interpretation Comments HPV HIGH RISK INTERP (test code = POSITIVE 13088) HPV 16 (test code = 31574) NEGATIVE HPV 18 (test code = 16736) POSITIVE HPV, HR, OTHER GENOTYPES (test code POSITIVE = 37842) BASIC METABOLIC [id number] 05:52:00 Test Item Value Reference Range Interpretation [...] PATIEN TS. CBC W/PLT COUNT & AUTO [id number] 04:21:00 Test Item Value Reference Range Interpretation [...] PERCENT (BEAKER) (test code = 2801) POCT-GLUCOSE [id number] 22:00:00 Test Item Value Reference Range Interpretation Comments POC-GLUCOSE METER 148 mg/dL 70-110 H TESTED AT [place] [address] ([facility]) ([facility] 1538) [address] POCT-GLUCOSE [id number] 17:06:00 Test Item Value Reference Range Interpretation Comments POC-GLUCOSE METER 224 mg/dL 70-110 H TESTED AT [place] [address] ([facility]) (test code = [facility] 1538) [address] POCT-GLUCOSE [id number] 12:39:00 Test Item Value Reference Range Interpretation Comments POC-GLUCOSE METER 214 mg/dL 70-110 H TESTED AT [place] [address] ([facility]) (test code = [facility] 1538) [address] POCT-GLUCOSE [id number] 08:26:00 Test Item Value Reference Range Interpretation Comments POC-GLUCOSE METER 166 mg/dL 70-110 H TESTED AT [place] [address] ([facility]) (test code = [facility] 1538) [address] COMPREHENSIVE METABOLIC [id number] 05:17:00 Test Item Value Reference Range Interpretation [...] S NOT APPLICABLE FOR DIALYSIS PATIEN TS. [id number] 05:14:00 Test Item Value Reference Range Interpretation Comments PHOSPHORUS (BEAKER) (test code = 2.9 mg/dL 2.3-4.7 604) [id number] 05:14:00 Test Item Value Reference Range Interpretation Comments MAGNESIUM (BEAKER) (test code = 1.6 mg/dL 1.6-2.6 627) CBC W/PLT COUNT & AUTO [id number] 04:48:00 Test Item Value Reference Range Interpretation [...] PERCENT (BEAKER) (test code = 2801) POCT-GLUCOSE [id number] 22:42:00 Test Item Value Reference Range Interpretation Comments POC-GLUCOSE METER 184 mg/dL 70-[address] [facility] 6720 (BEAKER) (test code = GAIL [place] 1538) [id number] POCT-GLUCOSE [id number] 18:51:00 Test Item Value Reference Range Interpretation Comments POC-GLUCOSE METER 220 mg/dL 70-[address] [facility] 6720 (BEAKER) (test code = GAIL Mccollum [place] 1538) [address] [id number] 16:07:00 Test Item Value Reference Range Interpretation Comments MAGNESIUM (BEAKER) (test code = 1.8 mg/dL 1.6-2.6 627) [id number] 16:07:00 Test Item Value Reference Range Interpretation Comments POTASSIUM (BEAKER) (test code = 4.1 meq/L 3.5-5.1 379) POCT-GLUCOSE [id number] 15:47:00 Test Item Value Reference Range Interpretation Comments POC-GLUCOSE METER 215 mg/dL 70-[address] [facility] 6720 (BEAKER) (test code = GAIL Mccollum [facility] 1538) [address] [id number] 10:16:00 Test Item Value Reference Range Interpretation Comments MAGNESIUM (BEAKER) (test code = 1.7 mg/dL 1.6-2.6 627) POCT-GLUCOSE [id number] 09:25:00 Test Item Value Reference Range Interpretation Comments POC-GLUCOSE METER 156 mg/dL 70-[address] [facility] 6720 (BEAKER) (test code = GAIL M[place]oll[place] 1538) [address] BASIC METABOLIC [id number] 06:32:00 Test Item Value Reference Range Interpretation [...] PATIEN TS. CBC W/PLT COUNT & AUTO [id number] 05:42:00 Test Item Value Reference Range Interpretation [...] EOSINOPHILS ABSOLUTE COUNT 0.10 K/ L 0.04-0.36 ([place]) (test code = 416) BASOPHILS ABSOLUTE COUNT ([place]) 0.04 K/ L 0.01-0.08 (test code = 417) IMMATURE GRANULOCYTES-RELATIVE 0 % 0-1 PERCENT ([place]) (test code = 2801) POCT-GLUCOSE [id number] 22:05:00 Test Item Value Reference Range Interpretation Comments POC-GLUCOSE METER 255 mg/dL 70-[address] [facility] 6720 ([place]) (test code = [place]IL [place] 1538) [address] MR, BRAIN, WITHOUT [id number] 19:23:00Reason for exam:->StrokeWhat is the patient's sedation [...] cerebral arteries: Normal flow-related enhancement withinthe bilateral OCCUPATIONAL REHABILITATION AIDE P1-P2 segments without flow-limiting stenosis. Bilateral functional type alley tender.Additional findings: None. MRA NECK:Common carotid arteries: Unremarkable. [...] MDReport Verified Date/Time: 12/08/2018 19:23:05 Reading Location: [address] Neuro Reading Room MR, MRA, NECK, WITHOUT IV [id number] 19:23:00FINAL REPORT MR, BRAIN, WITHOUT CONTRAST, MR, [...] cerebral arteries: Normal flow-related enhancement withinthe bilateral OCCUPATIONAL REHABILITATION AIDE P1-P2 segments without flow-limiting stenosis. Bilateral functional type alley tender.Additional findings: None. MRA NECK:Common carotid arteries: Unremarkable. [...] MDReport Verified Date/Time: 12/08/2018 19:23:05 Reading Location: [address] Neuro Reading Room MR, MRA, BRAIN, WITHOUT [id number] 19:23:00Reason for exam:->StrokeWhat is the patient's sedation [...] cerebral arteries: Normal flow-related enhancement withinthe bilateral OCCUPATIONAL REHABILITATION AIDE P1-P2 segments without flow-limiting stenosis. Bilateral functional type alley tender.Additional findings: None. MRA NECK:Common carotid arteries: Unremarkable. [...] MDReport Verified Date/Time: 12/08/2018 19:23:05 Reading Location: [facility] C013 Neuro Reading Room -GLUCOSE [id number] 19:03:00 Test Item Value Reference Range Interpretation Comments POC-GLUCOSE METER 158 mg/dL 70-[address] [facility] 6720 (BEAKER) (test code = GAIL [place] 1538) [id number] 17:33:00 Test Item Value Reference Range Interpretation Comments POTASSIUM (BEAKER) (test code = 4.0 meq/L 3.5-5.1 379) [id number] 17:33:00 Test Item Value Reference Range Interpretation Comments MAGNESIUM (BEAKER) (test code = 2.4 mg/dL 1.6-2.6 627) [id number] 14:55:00 Test Item Value Reference Range Interpretation Comments RPR SCREEN (BEAKER) (test code = Nonreactive Nonreactive 420) [id number] 12:28:00 Test Item Value Reference Range Interpretation Comments POTASSIUM (BEAKER) (test code = 2.9 meq/L 3.5-5.1 L 379) TROPONIN [id number] 10:59:00 Test Item Value Reference Range Interpretation [...] failure, acidosis, acute neurological disease, and persistent tachyarrhythmia.[id number] 10:50:00 Test Item Value Reference Range Interpretation Comments MAGNESIUM (BEAKER) (test code = 1.8 mg/dL 1.6-2.6 627) HEMOGLOBIN [id number] 07:49:00 Test Item Value Reference Range Interpretation Comments HEMOGLOBIN A1C (BEAKER) (test code = 8.1 % 4.3-6.1 H 368) HIV-1 ANTIGEN WITH HIV-1/2 [id number] 06:03:00 Test Item Value Reference Range Interpretation Comments HIV-1 ANTIGEN WITH HIV 1\\T\\2 Nonreactive Nonreactive ANTIBODY (2) (BEAKER) (test code = 2586) [id number] 05:54:00 Test Item Value Reference Range Interpretation Comments POTASSIUM (BEAKER) (test code = 2.8 meq/L 3.5-5.1 L 379) VITAMIN B12 AND [id number] 03:31:00 Test Item Value Reference Range Interpretation Comments VITAMIN B12 (BEAKER) (test code = 1168 pg/mL 213-816 H 774) FOLATE (BEAKER) (test code = 362) > ng/mL >=7.0 TSH/FREE T4 IF [id number] 03:24:00 Test Item Value Reference Range Interpretation Comments THYROID STIMULATING HORMONE 2.19 uIU/mL 0.35-4.94 (BEAKER) (test code = 772) BASIC METABOLIC [id number] 02:06:00 Test Item Value Reference Range Interpretation [...] m DATA TO CALCULA TE ESTIMATED GFR. [id number] 02:04:00 Test Item Value Reference Range Interpretation Comments MAGNESIUM (BEAKER) 1.5 mg/dL 1.6-2.6 L Specimen slightly (test code = 627) hemolyzed FastingLIPID [id number] 02:04:00 Test Item Value Reference Range Interpretation [...] High >=190 FastingCBC W/PLT COUNT & AUTO [id number] 01:36:00 Test Item Value Reference Range Interpretation [...] 0-1 PERCENT (BEAKER) (test code = 2801) [id number] 23:06:00 Test Item Value Reference Range Interpretation Comments ETHANOL (BEAKER) (test code = 400) < mg/dL <=10 TROPONIN [id number] 22:58:00 Test Item Value Reference Range Interpretation [...] acute neurological disease, and persistent tachyarrhythmia.BASIC METABOLIC [id number] 22:56:00 Test Item Value Reference Range Interpretation [...] DATA TO CALCULA TE ESTIMATED GFR. URINALYSIS [id number] 22:41:00 Test Item Value Reference Range Interpretation Comments RBC UA (BEAKER) (test code = 519) 1 /HPF WBC UA (BEAKER) (test code = 520) < /HPF SQUAMOUS EPITHELIAL (BEAKER) (test 7 /HPF code = 516) HYALINE CASTS (BEAKER) (test code = 2 /LPF 514) URINALYSIS WITH MICROSCOPIC IF [id number] 22:36:00 Test Item Value Reference Range Interpretation [...] SOURCE(BEAKER) (test code = 2795) BASIC METABOLIC [id number] 19:01:00 Test Item Value Reference Range Interpretation [...] m DATA TO CALCULA TE ESTIMATED GFR. [id number] 19:01:00 Test Item Value Reference Range Interpretation Comments MAGNESIUM (BEAKER) (test code = 0.7 mg/dL 1.6-2.6 LL 627) [id number] 18:58:00 Test Item Value Reference Range Interpretation Comments PHOSPHORUS (BEAKER) (test code = 3.3 mg/dL 2.3-4.7 604) HEPATIC FUNCTION [id number] 18:58:00 Test Item Value Reference Range Interpretation [...] = 36 U/L 6-55 347) COMPREHENSIVE METABOLIC [id number] 00:00:00 Test Item Value Reference Range Interpretation Comments GLUCOSE (test code = 2217) 206 MG/DL BUN (test code = 2208) 10 MG/DL CREATININE (test code = 2214) 0.83 MG/DL eGFR AMER. (test code 89 ML/MIN/1.73 = 14385) eGFR NON- AMER. (test 77 ML/MIN/1.73 code = 35260) CALC BUN/CREAT (test code = 12 RATIO [...] code = 2219) 32 U/L COMPREHENSIVE METABOLIC [id number] 00:00:00 Test Item Value Reference Range Interpretation Comments GLUCOSE (test code = 2217) 206 MG/DL BUN (test code = 2208) 10 MG/DL CREATININE (test code = 2214) 0.83 MG/DL eGFR AMER. (test code 89 ML/MIN/1.73 = 85212) eGFR NON- AMER. (test 77 ML/MIN/1.73 code = 70248) CALC BUN/CREAT (test code = 12 RATIO [...] (test code = 2219) 32 U/L LIPID [id number] 00:00:00 Test Item Value Reference Range Interpretation Comments CHOLESTEROL (test code = 2210) 420 MG/DL TRIGLYCERIDES (test code = 2232) 262 MG/DL HDL CHOLESTEROL (test code = 2220) 95 MG/DL CALC LDL CHOL (test code = 2237) 273 MG/DL RISK RATIO LDL/HDL (test code = 2.87 RATIO 2238) LIPID [id number] 00:00:00 Test Item Value Reference Range Interpretation Comments CHOLESTEROL (test code = 2210) 420 MG/DL TRIGLYCERIDES (test code = 2232) 262 MG/DL HDL CHOLESTEROL (test code = 2220) 95 MG/DL CALC LDL CHOL (test code = 2237) 273 MG/DL RISK RATIO LDL/HDL (test code = 2.87 RATIO 2238) CBC W/AUTO [id number] 00:00:00 Test Item Value Reference Range Interpretation [...] code = 1015) 330 K/UL CBC W/AUTO [id number] 00:00:00 Test Item Value Reference Range Interpretation [...] code = 1015) 330 K/UL CBC W/AUTO [id number] 00:00:00 Test Item Value Reference Range Interpretation [...] COUNT (test code = 1015) 330 K/UL [id number] 00:00:00 Test Item Value Reference Range Interpretation Comments AMYLASE (test code = 2205) 48 U/L [id number] 00:00:00 Test Item Value Reference Range Interpretation Comments AMYLASE (test code = 2205) 48 U/L [id number] 00:00:00 Test Item Value Reference Range Interpretation Comments LIPASE (test code = 2058) 69 U/L [id number] 00:00:00 Test Item Value Reference Range Interpretation Comments LIPASE (test code = 2058) 69 U/L [id number] 00:00:00 Test Item Value Reference Range Interpretation Comments LIPASE (test code = 2058) 69 U/L COMPREHENSIVE METABOLIC [id number] 00:00:00 Test Item Value Reference Range Interpretation Comments GLUCOSE (test code = 2217) 206 MG/DL BUN (test code = 2208) 10 MG/DL CREATININE (test code = 2214) 0.83 MG/DL eGFR AMER. (test code 89 ML/MIN/1.73 = 11875) eGFR NON- AMER. (test 77 ML/MIN/1.73 code = 04555) CALC BUN/CREAT (test code = 12 RATIO [...] RATIO 223) BILIRUBIN, TOTAL (test code = 1.1 MG/DL 2206) ALKALINE PHOSPHATASE (test 75 U/L code = 2204) AST (test code = 2218) 35 U/L ALT (test code = 2219) 32 U/L COMPREHENSIVE METABOLIC [id number] 00:00:00 Test Item Value Reference Range Interpretation Comments GLUCOSE (test code = 2217) 206 MG/DL BUN (test code = 2208) 10 MG/DL CREATININE (test code = 2214) 0.83 MG/DL eGFR AMER. (test code 89 ML/MIN/1.73 = 81176) eGFR NON- AMER. (test 77 ML/MIN/1.73 code = 77930) CALC BUN/CREAT (test code = 12 RATIO [...] (test code = 2219) 32 U/L LIPID [id number] 00:00:00 Test Item Value Reference Range Interpretation Comments CHOLESTEROL (test code = 2210) 420 MG/DL TRIGLYCERIDES (test code = 2232) 262 MG/DL HDL CHOLESTEROL (test code = 2220) 95 MG/DL CALC LDL CHOL (test code = 2237) 273 MG/DL RISK RATIO LDL/HDL (test code = 2.87 RATIO 2238) LIPID [id number] 00:00:00 Test Item Value Reference Range Interpretation Comments CHOLESTEROL (test code = 2210) 420 MG/DL TRIGLYCERIDES (test code = 2232) 262 MG/DL HDL CHOLESTEROL (test code = 2220) 95 MG/DL CALC LDL CHOL (test code = 2237) 273 MG/DL RISK RATIO LDL/HDL (test code = 2.87 RATIO 2238) CBC W/AUTO [id number] 00:00:00 Test Item Value Reference Range Interpretation [...] code = 1015) 330 K/UL CBC W/AUTO [id number] 00:00:00 Test Item Value Reference Range Interpretation [...] code = 1015) 330 K/UL CBC W/AUTO [id number] 00:00:00 Test Item Value Reference Range Interpretation [...] COUNT (test code = 1015) 330 K/UL [id number] 00:00:00 Test Item Value Reference Range Interpretation Comments AMYLASE (test code = 2205) 48 U/L [id number] 00:00:00 Test Item Value Reference Range Interpretation Comments AMYLASE (test code = 2205) 48 U/L [id number] 00:00:00 Test Item Value Reference Range Interpretation Comments LIPASE (test code = 8) 69 U/L [id number] 00:00:00 Test Item Value Reference Range Interpretation Comments LIPASE (test code = 2057) 69 U/L [id number] 00:00:00 Test Item Value Reference Range Interpretation Comments LIPASE (test code = 2057) 69 U/L COMPREHENSIVE METABOLIC [id number] 00:00:00 Test Item Value Reference Range Interpretation Comments GLUCOSE (test code = 2217) 206 MG/DL BUN (test code = 2208) 10 MG/DL CREATININE (test code = 2214) 0.83 MG/DL eGFR AMER. (test code 89 ML/MIN/1.73 = 97793) eGFR NON- AMER. (test 77 ML/MIN/1.73 code = 73912) CALC BUN/CREAT (test code = 12 RATIO 2235) SODIUM (test code = 2231) 138 MEQ/L POTASSIUM (test code = 2228) 3.6 MEQ/L CHLORIDE (test code = 2215) 89 MEQ/L CARBON DIOXIDE (test code = 28 MEQ/L 2205) CALCIUM (test code = 2209) 10.5 MG/DL [...] code = 2219) 32 U/L COMPREHENSIVE METABOLIC [id number] 00:00:00 Test Item Value Reference Range Interpretation Comments GLUCOSE (test code = 2217) 206 MG/DL BUN (test code = 2208) 10 MG/DL CREATININE (test code = 2214) 0.83 MG/DL eGFR AMER. (test code 89 ML/MIN/1.73 = 85136) eGFR NON- AMER. (test 77 ML/MIN/1.73 code = 51134) CALC BUN/CREAT (test code = 12 RATIO [...] (test code = 2219) 32 U/L LIPID [id number] 00:00:00 Test Item Value Reference Range Interpretation Comments CHOLESTEROL (test code = 2210) 420 MG/DL TRIGLYCERIDES (test code = 2232) 262 MG/DL HDL CHOLESTEROL (test code = 2220) 95 MG/DL CALC LDL CHOL (test code = 2237) 273 MG/DL RISK RATIO LDL/HDL (test code = 2.87 RATIO 2238) LIPID [id number] 00:00:00 Test Item Value Reference Range Interpretation Comments CHOLESTEROL (test code = 2210) 420 MG/DL TRIGLYCERIDES (test code = 2232) 262 MG/DL HDL CHOLESTEROL (test code = 2220) 95 MG/DL CALC LDL CHOL (test code = 2237) 273 MG/DL RISK RATIO LDL/HDL (test code = 2.87 RATIO 2238) CBC W/AUTO [id number] 00:00:00 Test Item Value Reference Range Interpretation [...] code = 1015) 330 K/UL CBC W/AUTO [id number] 00:00:00 Test Item Value Reference Range Interpretation [...] code = 1015) 330 K/UL CBC W/AUTO [id number] 00:00:00 Test Item Value Reference Range Interpretation [...] COUNT (test code = 1015) 330 K/UL [id number] 00:00:00 Test Item Value Reference Range Interpretation Comments AMYLASE (test code = 2205) 48 U/L [id number] 00:00:00 Test Item Value Reference Range Interpretation Comments AMYLASE (test code = 2205) 48 U/L [id number] 00:00:00 Test Item Value Reference Range Interpretation Comments LIPASE (test code = 8) 69 U/L [id number] 00:00:00 Test Item Value Reference Range Interpretation Comments LIPASE (test code = 8) 69 U/L [id number] 00:00:00 Test Item Value Reference Range Interpretation Comments LIPASE (test code = 2058) 69 U/L LIPID [id number] 00:00:00 Test Item Value Reference Range Interpretation Comments CHOLESTEROL (test code = 2210) 283 MG/DL TRIGLYCERIDES (test code = 2232) 206 MG/DL HDL CHOLESTEROL (test code = 2220) 86 MG/DL CALC LDL CHOL (test code = 2237) 156 MG/DL RISK RATIO LDL/HDL (test code = 1.81 RATIO 2238) LIPID [id number] 00:00:00 Test Item Value Reference Range Interpretation Comments CHOLESTEROL (test code = 2210) 283 MG/DL TRIGLYCERIDES (test code = 2232) 206 MG/DL HDL CHOLESTEROL (test code = 2220) 86 MG/DL CALC LDL CHOL (test code = 2237) 156 MG/DL RISK RATIO LDL/HDL (test code = 1.81 RATIO 2238) HEMOGLOBIN [id number] 00:00:00 Test Item Value Reference Range Interpretation Comments HEMOGLOBIN A1c (test code = 82141) 6.9 % HEMOGLOBIN [id number] 00:00:00 Test Item Value Reference Range Interpretation Comments HEMOGLOBIN A1c (test code = 41171) 6.9 % HEMOGLOBIN [id number] 00:00:00 Test Item Value Reference Range Interpretation Comments HEMOGLOBIN A1c (test code = 40895) 6.9 % COMPREHENSIVE METABOLIC [id number] 00:00:00 Test Item Value Reference Range Interpretation Comments GLUCOSE (test code = 2217) 131 MG/DL BUN (test code = 2208) 15 MG/DL CREATININE (test code = 2214) 1.01 MG/DL eGFR AMER. (test code 71 ML/MIN/1.73 = 56672) eGFR NON- AMER. (test 61 ML/MIN/1.73 code = 53571) CALC BUN/CREAT (test code = 15 RATIO [...] = 0.4 MG/DL 220) ALKALINE PHOSPHATASE (test 66 U/L code = 2204) AST (test code = 2218) 51 U/L ALT (test code = 2219) 37 U/L COMPREHENSIVE METABOLIC [id number] 00:00:00 Test Item Value Reference Range Interpretation Comments GLUCOSE (test code = 2217) 131 MG/DL BUN (test code = 2208) 15 MG/DL CREATININE (test code = 2214) 1.01 MG/DL eGFR AMER. (test code 71 ML/MIN/1.73 = 76708) eGFR NON- AMER. (test 61 ML/MIN/1.73 code = 82550) CALC BUN/CREAT (test code = 15 RATIO 2235) SODIUM (test code = 2231) 141 MEQ/L POTASSIUM (test code = 2228) 3.8 MEQ/L CHLORIDE (test code = 2215) 99 MEQ/L CARBON DIOXIDE (test code = 27 MEQ/L 2206) CALCIUM (test code = 2209) 9.9 MG/DL [...] (test code = 2219) 37 U/L LIPID [id number] 00:00:00 Test Item Value Reference Range Interpretation Comments CHOLESTEROL (test code = 2210) 283 MG/DL TRIGLYCERIDES (test code = 2232) 206 MG/DL HDL CHOLESTEROL (test code = 2220) 86 MG/DL CALC LDL CHOL (test code = 2237) 156 MG/DL RISK RATIO LDL/HDL (test code = 1.81 RATIO 2238) LIPID [id number] 00:00:00 Test Item Value Reference Range Interpretation Comments CHOLESTEROL (test code = 2210) 283 MG/DL TRIGLYCERIDES (test code = 2232) 206 MG/DL HDL CHOLESTEROL (test code = 2220) 86 MG/DL CALC LDL CHOL (test code = 2237) 156 MG/DL RISK RATIO LDL/HDL (test code = 1.81 RATIO 2238) HEMOGLOBIN [id number] 00:00:00 Test Item Value Reference Range Interpretation Comments HEMOGLOBIN A1c (test code = 40068) 6.9 % HEMOGLOBIN [id number] 00:00:00 Test Item Value Reference Range Interpretation Comments HEMOGLOBIN A1c (test code = 13891) 6.9 % HEMOGLOBIN [id number] 00:00:00 Test Item Value Reference Range Interpretation Comments HEMOGLOBIN A1c (test code = 35770) 6.9 % COMPREHENSIVE METABOLIC [id number] 00:00:00 Test Item Value Reference Range Interpretation Comments GLUCOSE (test code = 2217) 131 MG/DL BUN (test code = 2208) 15 MG/DL CREATININE (test code = 2214) 1.01 MG/DL eGFR AMER. (test code 71 ML/MIN/1.73 = 79061) eGFR NON- AMER. (test 61 ML/MIN/1.73 code = 84822) CALC BUN/CREAT (test code = 15 RATIO [...] code = 2219) 37 U/L COMPREHENSIVE METABOLIC [id number] 00:00:00 Test Item Value Reference Range Interpretation Comments GLUCOSE (test code = 2217) 131 MG/DL BUN (test code = 2208) 15 MG/DL CREATININE (test code = 2214) 1.01 MG/DL eGFR AMER. (test code 71 ML/MIN/1.73 = 32575) eGFR NON- AMER. (test 61 ML/MIN/1.73 code = 73390) CALC BUN/CREAT (test code = 15 RATIO [...] (test code = 2219) 37 U/L LIPID [id number] 00:00:00 Test Item Value Reference Range Interpretation Comments CHOLESTEROL (test code = 2210) 283 MG/DL TRIGLYCERIDES (test code = 2232) 206 MG/DL HDL CHOLESTEROL (test code = 2220) 86 MG/DL CALC LDL CHOL (test code = 2237) 156 MG/DL RISK RATIO LDL/HDL (test code = 1.81 RATIO 2238) LIPID [id number] 00:00:00 Test Item Value Reference Range Interpretation Comments CHOLESTEROL (test code = 2210) 283 MG/DL TRIGLYCERIDES (test code = 2232) 206 MG/DL HDL CHOLESTEROL (test code = 2220) 86 MG/DL CALC LDL CHOL (test code = 2237) 156 MG/DL RISK RATIO LDL/HDL (test code = 1.81 RATIO 2238) HEMOGLOBIN [id number] 00:00:00 Test Item Value Reference Range Interpretation Comments HEMOGLOBIN A1c (test code = 20911) 6.9 % HEMOGLOBIN [id number] 00:00:00 Test Item Value Reference Range Interpretation Comments HEMOGLOBIN A1c (test code = 61250) 6.9 % HEMOGLOBIN [id number] 00:00:00 Test Item Value Reference Range Interpretation Comments HEMOGLOBIN A1c (test code = 14521) 6.9 % COMPREHENSIVE METABOLIC [id number] 00:00:00 Test Item Value Reference Range Interpretation Comments GLUCOSE (test code = 2217) 131 MG/DL BUN (test code = 2208) 15 MG/DL CREATININE (test code = 2214) 1.01 MG/DL eGFR AMER. (test code 71 ML/MIN/1.73 = 28217) eGFR NON- AMER. (test 61 ML/MIN/1.73 code = 81934) CALC BUN/CREAT (test code = 15 RATIO [...] code = 2219) 37 U/L COMPREHENSIVE METABOLIC [id number] 00:00:00 Test Item Value Reference Range Interpretation Comments GLUCOSE (test code = 2217) 131 MG/DL BUN (test code = 2208) 15 MG/DL CREATININE (test code = 2214) 1.01 MG/DL eGFR AMER. (test code 71 ML/MIN/1.73 = 37861) eGFR NON- AMER. (test 61 ML/MIN/1.73 code = 75932) CALC BUN/CREAT (test code = 15 RATIO 2235) SODIUM (test code = 2231) 141 MEQ/L POTASSIUM (test code = 2228) 3.8 MEQ/L CHLORIDE (test code = 2215) 99 MEQ/L CARBON DIOXIDE (test code = 27 MEQ/L 220) CALCIUM (test code = 2209) 9.9 MG/DL [...] (test code = 2219) 37 U/L HEMOGLOBIN [id number] 00:00:00 Test Item Value Reference Range Interpretation Comments HEMOGLOBIN A1c (test code = 74784) 6.5 % HEMOGLOBIN [id number] 00:00:00 Test Item Value Reference Range Interpretation Comments HEMOGLOBIN A1c (test code = 47522) 6.5 % HEMOGLOBIN [id number] 00:00:00 Test Item Value Reference Range Interpretation Comments HEMOGLOBIN A1c (test code = 55807) 6.5 % CBC W/AUTO [id number] 00:00:00 Test Item Value Reference Range Interpretation [...] code = 1015) 291 K/UL CBC W/AUTO [id number] 00:00:00 Test Item Value Reference Range Interpretation [...] code = 1015) 291 K/UL CBC W/AUTO [id number] 00:00:00 Test Item Value Reference Range Interpretation [...] code = 1015) 291 K/UL COMPREHENSIVE METABOLIC [id number] 00:00:00 Test Item Value Reference Range Interpretation Comments GLUCOSE (test code = 2217) 133 MG/DL BUN (test code = 2208) 9 MG/DL CREATININE (test code = 2214) 0.67 MG/DL eGFR AMER. (test code 113 ML/MIN/1.73 = 11267) eGFR NON- AMER. (test 98 ML/MIN/1.73 code = 49102) CALC BUN/CREAT (test code = 13 RATIO [...] code = 2219) 42 U/L COMPREHENSIVE METABOLIC [id number] 00:00:00 Test Item Value Reference Range Interpretation Comments GLUCOSE (test code = 2217) 133 MG/DL BUN (test code = 2208) 9 MG/DL CREATININE (test code = 2214) 0.67 MG/DL eGFR AMER. (test code 113 ML/MIN/1.73 = 78222) eGFR NON- AMER. (test 98 ML/MIN/1.73 code = 86290) CALC BUN/CREAT (test code = 13 RATIO [...] (test code = 2219) 42 U/L LIPID [id number] 00:00:00 Test Item Value Reference Range Interpretation Comments CHOLESTEROL (test code = 2210) 234 MG/DL TRIGLYCERIDES (test code = 2232) 216 MG/DL HDL CHOLESTEROL (test code = 2220) 56 MG/DL CALC LDL CHOL (test code = 2237) 135 MG/DL RISK RATIO LDL/HDL (test code = 2.41 RATIO 2238) LIPID [id number] 00:00:00 Test Item Value Reference Range Interpretation [...] (test code = 2821) 2.8 UIU/ML HEMOGLOBIN [id number] 00:00:00 Test Item Value Reference Range Interpretation Comments HEMOGLOBIN A1c (test code = 17667) 6.5 % HEMOGLOBIN [id number] 00:00:00 Test Item Value Reference Range Interpretation Comments HEMOGLOBIN A1c (test code = 45551) 6.5 % HEMOGLOBIN [id number] 00:00:00 Test Item Value Reference Range Interpretation Comments HEMOGLOBIN A1c (test code = 85265) 6.5 % CBC W/AUTO [id number] 00:00:00 Test Item Value Reference Range Interpretation [...] code = 1015) 291 K/UL CBC W/AUTO [id number] 00:00:00 Test Item Value Reference Range Interpretation [...] code = 1015) 291 K/UL CBC W/AUTO [id number] 00:00:00 Test Item Value Reference Range Interpretation [...] code = 1015) 291 K/UL COMPREHENSIVE METABOLIC [id number] 00:00:00 Test Item Value Reference Range Interpretation Comments GLUCOSE (test code = 2217) 133 MG/DL BUN (test code = 2208) 9 MG/DL CREATININE (test code = 2214) 0.67 MG/DL eGFR AMER. (test code 113 ML/MIN/1.73 = 73429) eGFR NON- AMER. (test 98 ML/MIN/1.73 code = 54292) CALC BUN/CREAT (test code = 13 RATIO [...] code = 2219) 42 U/L COMPREHENSIVE METABOLIC [id number] 00:00:00 Test Item Value Reference Range Interpretation Comments GLUCOSE (test code = 2217) 133 MG/DL BUN (test code = 2208) 9 MG/DL CREATININE (test code = 2214) 0.67 MG/DL eGFR AMER. (test code 113 ML/MIN/1.73 = 23220) eGFR NON- AMER. (test 98 ML/MIN/1.73 code = 95056) CALC BUN/CREAT (test code = 13 RATIO [...] (test code = 2219) 42 U/L LIPID [id number] 00:00:00 Test Item Value Reference Range Interpretation Comments CHOLESTEROL (test code = 2210) 234 MG/DL TRIGLYCERIDES (test code = 2232) 216 MG/DL HDL CHOLESTEROL (test code = 2220) 56 MG/DL CALC LDL CHOL (test code = 2237) 135 MG/DL RISK RATIO LDL/HDL (test code = 2.41 RATIO 2238) LIPID [id number] 00:00:00 Test Item Value Reference Range Interpretation [...] (test code = 2821) 2.8 UIU/ML HEMOGLOBIN [id number] 00:00:00 Test Item Value Reference Range Interpretation Comments HEMOGLOBIN A1c (test code = 63555) 6.5 % HEMOGLOBIN [id number] 00:00:00 Test Item Value Reference Range Interpretation Comments HEMOGLOBIN A1c (test code = 04879) 6.5 % HEMOGLOBIN [id number] 00:00:00 Test Item Value Reference Range Interpretation Comments HEMOGLOBIN A1c (test code = 99182) 6.5 % CBC W/AUTO [id number] 00:00:00 Test Item Value Reference Range Interpretation [...] code = 1015) 291 K/UL CBC W/AUTO [id number] 00:00:00 Test Item Value Reference Range Interpretation [...] code = 1015) 291 K/UL CBC W/AUTO [id number] 00:00:00 Test Item Value Reference Range Interpretation [...] code = 1015) 291 K/UL COMPREHENSIVE METABOLIC [id number] 00:00:00 Test Item Value Reference Range Interpretation Comments GLUCOSE (test code = 2217) 133 MG/DL BUN (test code = 2208) 9 MG/DL CREATININE (test code = 2214) 0.67 MG/DL eGFR AMER. (test code 113 ML/MIN/1.73 = 38122) eGFR NON- AMER. (test 98 ML/MIN/1.73 code = 85005) CALC BUN/CREAT (test code = 13 RATIO 2235) SODIUM (test code = 2231) 139 MEQ/L POTASSIUM (test code = 2228) 4.3 MEQ/L CHLORIDE (test code = 2215) 99 MEQ/L CARBON DIOXIDE (test code = 24 MEQ/L 6) CALCIUM (test code = 2209) 9.8 MG/DL PROTEIN, TOTAL (test code = 7.2 G/DL 2229) ALBUMIN (test code = 2201) 4.8 G/DL CALC GLOBULIN (test code = 2.4 G/DL 2240) CALC A/G RATIO (test code = 2.0 RATIO 2234) BILIRUBIN, TOTAL (test code = 0.2 MG/DL 2206) ALKALINE PHOSPHATASE (test 60 U/L code = 2204) AST (test code = 2218) 34 U/L ALT (test code = 2219) 42 U/L COMPREHENSIVE METABOLIC [id number] 00:00:00 Test Item Value Reference Range Interpretation Comments GLUCOSE (test code = 2217) 133 MG/DL BUN (test code = 2208) 9 MG/DL CREATININE (test code = 2214) 0.67 MG/DL eGFR AMER. (test code 113 ML/MIN/1.73 = 00593) eGFR NON- AMER. (test 98 ML/MIN/1.73 code = 58456) CALC BUN/CREAT (test code = 13 RATIO [...] CALC GLOBULIN (test code = 2.4 G/DL 2239) CALC A/G RATIO (test code = 2.0 RATIO 2234) BILIRUBIN, TOTAL (test code = 0.2 MG/DL 2206) ALKALINE PHOSPHATASE (test 60 U/L code = 2204) AST (test code = 2218) 34 U/L ALT (test code = 2219) 42 U/L LIPID [id number] 00:00:00 Test Item Value Reference Range Interpretation Comments CHOLESTEROL (test code = 2210) 234 MG/DL TRIGLYCERIDES (test code = 2232) 216 MG/DL HDL CHOLESTEROL (test code = 2220) 56 MG/DL CALC LDL CHOL (test code = 2237) 135 MG/DL RISK RATIO LDL/HDL (test code = 2.41 RATIO 2238) LIPID [id number] 00:00:00 Test Item Value Reference Range Interpretation [...] code = 2821) 2.8 UIU/ML COMPREHENSIVE METABOLIC [id number] 00:00:00 Test Item Value Reference Range Interpretation Comments GLUCOSE (test code = 2217) 131 MG/DL BUN (test code = 2208) 16 MG/DL CREATININE (test code = 2214) 1.66 MG/DL eGFR AMER. (test code 40 ML/MIN/1.73 = 35413) eGFR NON- AMER. (test 34 ML/MIN/1.73 code = 49887) CALCULATED BUN/CREAT (test 10 RATIO code = [...] code = 2219) 46 U/L COMPREHENSIVE METABOLIC [id number] 00:00:00 Test Item Value Reference Range Interpretation Comments GLUCOSE (test code = 2217) 131 MG/DL BUN (test code = 2208) 16 MG/DL CREATININE (test code = 2214) 1.66 MG/DL eGFR AMER. (test code 40 ML/MIN/1.73 = 55921) eGFR NON- AMER. (test 34 ML/MIN/1.73 code = 41169) CALCULATED BUN/CREAT (test 10 RATIO code = [...] (test code = 2219) 46 U/L LIPID [id number] 00:00:00 Test Item Value Reference Range Interpretation Comments CHOLESTEROL (test code = 2210) 230 MG/DL TRIGLYCERIDES (test code = 2232) 226 MG/DL HDL CHOLESTEROL (test code = 2220) 53 MG/DL CALCULATED LDL CHOL (test code = 132 MG/DL 2237) RISK RATIO LDL/HDL (test code = 2.49 RATIO 2238) LIPID [id number] 00:00:00 Test Item Value Reference Range Interpretation Comments CHOLESTEROL (test code = 2210) 230 MG/DL TRIGLYCERIDES (test code = 2232) 226 MG/DL HDL CHOLESTEROL (test code = 2220) 53 MG/DL CALCULATED LDL CHOL (test code = 132 MG/DL 2237) RISK RATIO LDL/HDL (test code = 2.49 RATIO 2238) CBC W/AUTO [id number] 00:00:00 Test Item Value Reference Range Interpretation [...] code = 1015) 108 K/UL CBC W/AUTO [id number] 00:00:00 Test Item Value Reference Range Interpretation [...] code = 1015) 108 K/UL CBC W/AUTO [id number] 00:00:00 Test Item Value Reference Range Interpretation [...] (test code = 1015) 108 K/UL HEMOGLOBIN [id number] 00:00:00 Test Item Value Reference Range Interpretation Comments HEMOGLOBIN A1c (test code = 66443) 6.1 % HEMOGLOBIN [id number] 00:00:00 Test Item Value Reference Range Interpretation Comments HEMOGLOBIN A1c (test code = 55193) 6.1 % HEMOGLOBIN [id number] 00:00:00 Test Item Value Reference Range Interpretation Comments HEMOGLOBIN A1c (test code = 80139) 6.1 % [id number] 00:00:00 Test Item Value Reference Range Interpretation Comments TSH (test code = 2821) 5.7 UIU/ML [id number] 00:00:00 Test Item Value Reference Range Interpretation Comments TSH (test code = 2821) 5.7 UIU/ML [id number] 00:00:00 Test Item Value Reference Range Interpretation Comments TSH (test code = 2821) 5.7 UIU/ML VITAMIN D, 25 [id number] 00:00:00 Test Item Value Reference Range Interpretation Comments VITAMIN D, 25 OH (test code = 4958) 7 NG/ML VITAMIN D, 25 [id number] 00:00:00 Test Item Value Reference Range Interpretation Comments VITAMIN D, 25 OH (test code = 4958) 7 NG/ML VITAMIN B 12 AND FOLIC [id number] 00:00:00 Test Item Value Reference Range Interpretation Comments VITAMIN B-12 (test code = 2840) 569 PG/ML FOLIC ACID (test code = 2695) 16.8 NG/ML VITAMIN B 12 AND FOLIC [id number] 00:00:00 Test Item Value Reference Range Interpretation Comments VITAMIN B-12 (test code = 2840) 569 PG/ML FOLIC ACID (test code = 2695) 16.8 NG/ML COMPREHENSIVE METABOLIC [id number] 00:00:00 Test Item Value Reference Range Interpretation Comments GLUCOSE (test code = 2217) 131 MG/DL BUN (test code = 2208) 16 MG/DL CREATININE (test code = 2214) 1.66 MG/DL eGFR AMER. (test code 40 ML/MIN/1.73 = 86712) eGFR NON- AMER. (test 34 ML/MIN/1.73 code = 94735) CALCULATED BUN/CREAT (test 10 RATIO code = [...] code = 2219) 46 U/L COMPREHENSIVE METABOLIC [id number] 00:00:00 Test Item Value Reference Range Interpretation Comments GLUCOSE (test code = 2217) 131 MG/DL BUN (test code = 2208) 16 MG/DL CREATININE (test code = 2214) 1.66 MG/DL eGFR AMER. (test code 40 ML/MIN/1.73 = 87432) eGFR NON- AMER. (test 34 ML/MIN/1.73 code = 66619) CALCULATED BUN/CREAT (test 10 RATIO code = [...] (test code = 2219) 46 U/L LIPID [id number] 00:00:00 Test Item Value Reference Range Interpretation Comments CHOLESTEROL (test code = 2210) 230 MG/DL TRIGLYCERIDES (test code = 2232) 226 MG/DL HDL CHOLESTEROL (test code = 2220) 53 MG/DL CALCULATED LDL CHOL (test code = 132 MG/DL 2236) RISK RATIO LDL/HDL (test code = 2.49 RATIO 2237) LIPID [id number] 00:00:00 Test Item Value Reference Range Interpretation Comments CHOLESTEROL (test code = 2210) 230 MG/DL TRIGLYCERIDES (test code = 2232) 226 MG/DL HDL CHOLESTEROL (test code = 2220) 53 MG/DL CALCULATED LDL CHOL (test code = 132 MG/DL 2236) RISK RATIO LDL/HDL (test code = 2.49 RATIO 2237) CBC W/AUTO [id number] 00:00:00 Test Item Value Reference Range Interpretation [...] code = 1015) 108 K/UL CBC W/AUTO [id number] 00:00:00 Test Item Value Reference Range Interpretation [...] code = 1015) 108 K/UL CBC W/AUTO [id number] 00:00:00 Test Item Value Reference Range Interpretation [...] (test code = 1015) 108 K/UL HEMOGLOBIN [id number] 00:00:00 Test Item Value Reference Range Interpretation Comments HEMOGLOBIN A1c (test code = 81293) 6.1 % HEMOGLOBIN [id number] 00:00:00 Test Item Value Reference Range Interpretation Comments HEMOGLOBIN A1c (test code = 87543) 6.1 % HEMOGLOBIN [id number] 00:00:00 Test Item Value Reference Range Interpretation Comments HEMOGLOBIN A1c (test code = 64584) 6.1 % [id number] 00:00:00 Test Item Value Reference Range Interpretation Comments TSH (test code = 2821) 5.7 UIU/ML [id number] 00:00:00 Test Item Value Reference Range Interpretation Comments TSH (test code = 2821) 5.7 UIU/ML [id number] 00:00:00 Test Item Value Reference Range Interpretation Comments TSH (test code = 2821) 5.7 UIU/ML VITAMIN D, 25 [id number] 00:00:00 Test Item Value Reference Range Interpretation Comments VITAMIN D, 25 OH (test code = 4958) 7 NG/ML VITAMIN D, 25 [id number] 00:00:00 Test Item Value Reference Range Interpretation Comments VITAMIN D, 25 OH (test code = 4958) 7 NG/ML VITAMIN B 12 AND FOLIC [id number] 00:00:00 Test Item Value Reference Range Interpretation Comments VITAMIN B-12 (test code = 2840) 569 PG/ML FOLIC ACID (test code = 2695) 16.8 NG/ML VITAMIN B 12 AND FOLIC [id number] 00:00:00 Test Item Value Reference Range Interpretation Comments VITAMIN B-12 (test code = 2840) 569 PG/ML FOLIC ACID (test code = 2695) 16.8 NG/ML COMPREHENSIVE METABOLIC [id number] 00:00:00 Test Item Value Reference Range Interpretation Comments GLUCOSE (test code = 2217) 131 MG/DL BUN (test code = 2208) 16 MG/DL CREATININE (test code = 2214) 1.66 MG/DL eGFR AMER. (test code 40 ML/MIN/1.73 = 31641) eGFR NON- AMER. (test 34 ML/MIN/1.73 code = 82739) CALCULATED BUN/CREAT (test 10 RATIO code = [...] code = 2219) 46 U/L COMPREHENSIVE METABOLIC [id number] 00:00:00 Test Item Value Reference Range Interpretation Comments GLUCOSE (test code = 2217) 131 MG/DL BUN (test code = 2208) 16 MG/DL CREATININE (test code = 2214) 1.66 MG/DL eGFR AMER. (test code 40 ML/MIN/1.73 = 75624) eGFR NON- AMER. (test 34 ML/MIN/1.73 code = 78218) CALCULATED BUN/CREAT (test 10 RATIO code = 2235) SODIUM (test code = 2231) 138 MEQ/L POTASSIUM (test code = 2228) 4.2 MEQ/L CHLORIDE (test code = 2215) 98 MEQ/L CARBON DIOXIDE (test code = 25 MEQ/L 2206) CALCIUM (test code = 2209) 10.4 MG/DL PROTEIN, TOTAL (test code = 7.6 G/DL 2228) ALBUMIN (test code = 2201) 4.9 G/DL CALCULATED GLOBULIN (test code 2.7 G/DL = 2240) CALCULATED A/G RATIO (test 1.8 RATIO code = 2234) BILIRUBIN, TOTAL (test code = 1.0 MG/DL 7) ALKALINE PHOSPHATASE (test 55 U/L code = 2204) SGOT (AST) (test code = 2218) 50 U/L SGPT (ALT) (test code = 2219) 46 U/L LIPID [id number] 00:00:00 Test Item Value Reference Range Interpretation Comments CHOLESTEROL (test code = 2210) 230 MG/DL TRIGLYCERIDES (test code = 2232) 226 MG/DL HDL CHOLESTEROL (test code = 2220) 53 MG/DL CALCULATED LDL CHOL (test code = 132 MG/DL 2237) RISK RATIO LDL/HDL (test code = 2.49 RATIO 2238) LIPID [id number] 00:00:00 Test Item Value Reference Range Interpretation Comments CHOLESTEROL (test code = 2210) 230 MG/DL TRIGLYCERIDES (test code = 2232) 226 MG/DL HDL CHOLESTEROL (test code = 2220) 53 MG/DL CALCULATED LDL CHOL (test code = 132 MG/DL 2237) RISK RATIO LDL/HDL (test code = 2.49 RATIO 2238) CBC W/AUTO [id number] 00:00:00 Test Item Value Reference Range Interpretation [...] code = 1015) 108 K/UL CBC W/AUTO [id number] 00:00:00 Test Item Value Reference Range Interpretation [...] code = 1015) 108 K/UL CBC W/AUTO [id number] 00:00:00 Test Item Value Reference Range Interpretation [...] (test code = 1015) 108 K/UL HEMOGLOBIN [id number] 00:00:00 Test Item Value Reference Range Interpretation Comments HEMOGLOBIN A1c (test code = 29669) 6.1 % HEMOGLOBIN [id number] 00:00:00 Test Item Value Reference Range Interpretation Comments HEMOGLOBIN A1c (test code = 89519) 6.1 % HEMOGLOBIN [id number] 00:00:00 Test Item Value Reference Range Interpretation Comments HEMOGLOBIN A1c (test code = 96817) 6.1 % [id number] 00:00:00 Test Item Value Reference Range Interpretation Comments TSH (test code = 2821) 5.7 UIU/ML [id number] 00:00:00 Test Item Value Reference Range Interpretation Comments TSH (test code = 2821) 5.7 UIU/ML [id number] 00:00:00 Test Item Value Reference Range Interpretation Comments TSH (test code = 2821) 5.7 UIU/ML VITAMIN D, 25 [id number] 00:00:00 Test Item Value Reference Range Interpretation Comments VITAMIN D, 25 OH (test code = 4958) 7 NG/ML VITAMIN D, 25 [id number] 00:00:00 Test Item Value Reference Range Interpretation Comments VITAMIN D, 25 OH (test code = 4958) 7 NG/ML VITAMIN B 12 AND FOLIC [id number] 00:00:00 Test Item Value Reference Range Interpretation Comments VITAMIN B-12 (test code = 2840) 569 PG/ML FOLIC ACID (test code = 2695) 16.8 NG/ML VITAMIN B 12 AND FOLIC [id number] 00:00:00 Test Item Value Reference Range Interpretation Comments VITAMIN B-12 (test code = 2840) 569 PG/ML FOLIC ACID (test code = 2695) 16.8 NG/ML COMPREHENSIVE METABOLIC [id number] 00:00:00 Test Item Value Reference Range Interpretation Comments GLUCOSE (test code = 2217) 116 MG/DL BUN (test code = 2208) 14 MG/DL CREATININE (test code = 2214) 0.6 MG/DL eGFR AMER. (test code 125 ML/MIN/1.73 = 49718) eGFR NON- AMER. (test 103 ML/MIN/1.73 code = 69906) CALCULATED BUN/CREAT (test 23 RATIO code = [...] code = 2219) 39 U/L COMPREHENSIVE METABOLIC [id number] 00:00:00 Test Item Value Reference Range Interpretation Comments GLUCOSE (test code = 2217) 116 MG/DL BUN (test code = 2208) 14 MG/DL CREATININE (test code = 2214) 0.6 MG/DL eGFR AMER. (test code 125 ML/MIN/1.73 = 72986) eGFR NON- AMER. (test 103 ML/MIN/1.73 code = 35181) CALCULATED BUN/CREAT (test 23 RATIO code = 2235) SODIUM (test code = 2231) 137 MEQ/L POTASSIUM (test code = 2228) 3.3 MEQ/L CHLORIDE (test code = 2215) 100 MEQ/L CARBON DIOXIDE (test code = 20 MEQ/L 220) CALCIUM (test code = 2209) 9.4 MG/DL [...] (test code = 2219) 39 U/L LIPID [id number] 00:00:00 Test Item Value Reference Range Interpretation Comments CHOLESTEROL (test code = 2210) 305 MG/DL TRIGLYCERIDES (test code = 2232) 99 MG/DL HDL CHOLESTEROL (test code = 2220) 87 MG/DL CALCULATED LDL CHOL (test code = 198 MG/DL 2237) RISK RATIO LDL/HDL (test code = 2.28 RATIO 2238) LIPID [id number] 00:00:00 Test Item Value Reference Range Interpretation Comments CHOLESTEROL (test code = 2210) 305 MG/DL TRIGLYCERIDES (test code = 2232) 99 MG/DL HDL CHOLESTEROL (test code = 2220) 87 MG/DL CALCULATED LDL CHOL (test code = 198 MG/DL 2237) RISK RATIO LDL/HDL (test code = 2.28 RATIO 2238) [id number] 00:00:00 Test Item Value Reference Range Interpretation Comments TSH (test code = 2821) 1.4 UIU/ML [id number] 00:00:00 Test Item Value Reference Range Interpretation Comments TSH (test code = 2821) 1.4 UIU/ML [id number] 00:00:00 Test Item Value Reference Range Interpretation Comments TSH (test code = 2821) 1.4 UIU/ML COMPREHENSIVE METABOLIC [id number] 00:00:00 Test Item Value Reference Range Interpretation Comments GLUCOSE (test code = 2217) 116 MG/DL BUN (test code = 2208) 14 MG/DL CREATININE (test code = 2214) 0.6 MG/DL eGFR AMER. (test code 125 ML/MIN/1.73 = 92500) eGFR NON- AMER. (test 103 ML/MIN/1.73 code = 00097) CALCULATED BUN/CREAT (test 23 RATIO code = [...] code = 2219) 39 U/L COMPREHENSIVE METABOLIC [id number] 00:00:00 Test Item Value Reference Range Interpretation Comments GLUCOSE (test code = 2217) 116 MG/DL BUN (test code = 2208) 14 MG/DL CREATININE (test code = 2214) 0.6 MG/DL eGFR AMER. (test code 125 ML/MIN/1.73 = 57537) eGFR NON- AMER. (test 103 ML/MIN/1.73 code = 70946) CALCULATED BUN/CREAT (test 23 RATIO code = 2235) SODIUM (test code = 2231) 137 MEQ/L POTASSIUM (test code = 2228) 3.3 MEQ/L CHLORIDE (test code = 2215) 100 MEQ/L CARBON DIOXIDE (test code = 20 MEQ/L 2205) CALCIUM (test code = 2209) 9.4 MG/DL PROTEIN, TOTAL (test code = 7.2 G/DL 222) ALBUMIN (test code = 2201) 4.5 G/DL CALCULATED GLOBULIN (test 2.7 G/DL code = 2240) CALCULATED A/G RATIO (test 1.7 RATIO code = 2234) BILIRUBIN, TOTAL (test code = 0.5 MG/DL 2206) ALKALINE PHOSPHATASE (test 57 U/L code = 220) SGOT (AST) (test code = 2218) 35 U/L SGPT (ALT) (test code = 2219) 39 U/L LIPID [id number] 00:00:00 Test Item Value Reference Range Interpretation Comments CHOLESTEROL (test code = 2210) 305 MG/DL TRIGLYCERIDES (test code = 2232) 99 MG/DL HDL CHOLESTEROL (test code = 2220) 87 MG/DL CALCULATED LDL CHOL (test code = 198 MG/DL 2237) RISK RATIO LDL/HDL (test code = 2.28 RATIO 2238) LIPID [id number] 00:00:00 Test Item Value Reference Range Interpretation Comments CHOLESTEROL (test code = 2210) 305 MG/DL TRIGLYCERIDES (test code = 2232) 99 MG/DL HDL CHOLESTEROL (test code = 2220) 87 MG/DL CALCULATED LDL CHOL (test code = 198 MG/DL 2237) RISK RATIO LDL/HDL (test code = 2.28 RATIO 2238) [id number] 00:00:00 Test Item Value Reference Range Interpretation Comments TSH (test code = 2821) 1.4 UIU/ML [id number] 00:00:00 Test Item Value Reference Range Interpretation Comments TSH (test code = 2821) 1.4 UIU/ML [id number] 00:00:00 Test Item Value Reference Range Interpretation Comments TSH (test code = 2821) 1.4 UIU/ML COMPREHENSIVE METABOLIC [id number] 00:00:00 Test Item Value Reference Range Interpretation Comments GLUCOSE (test code = 2217) 116 MG/DL BUN (test code = 2208) 14 MG/DL CREATININE (test code = 2214) 0.6 MG/DL eGFR AMER. (test code 125 ML/MIN/1.73 = 36097) eGFR NON- AMER. (test 103 ML/MIN/1.73 code = 10322) CALCULATED BUN/CREAT (test 23 RATIO code = [...] code = 2219) 39 U/L COMPREHENSIVE METABOLIC [id number] 00:00:00 Test Item Value Reference Range Interpretation Comments GLUCOSE (test code = 2217) 116 MG/DL BUN (test code = 2208) 14 MG/DL CREATININE (test code = 2214) 0.6 MG/DL eGFR AMER. (test code 125 ML/MIN/1.73 = 00444) eGFR NON- AMER. (test 103 ML/MIN/1.73 code = 85001) CALCULATED BUN/CREAT (test 23 RATIO code = [...] (test code = 2219) 39 U/L LIPID [id number] 00:00:00 Test Item Value Reference Range Interpretation Comments CHOLESTEROL (test code = 2210) 305 MG/DL TRIGLYCERIDES (test code = 2232) 99 MG/DL HDL CHOLESTEROL (test code = 2220) 87 MG/DL CALCULATED LDL CHOL (test code = 198 MG/DL 2237) RISK RATIO LDL/HDL (test code = 2.28 RATIO 2238) LIPID [id number] 00:00:00 Test Item Value Reference Range Interpretation Comments CHOLESTEROL (test code = 2210) 305 MG/DL TRIGLYCERIDES (test code = 2232) 99 MG/DL HDL CHOLESTEROL (test code = 2220) 87 MG/DL CALCULATED LDL CHOL (test code = 198 MG/DL 2237) RISK RATIO LDL/HDL (test code = 2.28 RATIO 2238) [id number] 00:00:00 Test Item Value Reference Range Interpretation Comments TSH (test code = 2821) 1.4 UIU/ML [id number] 00:00:00 Test Item Value Reference Range Interpretation Comments TSH (test code = 2821) 1.4 UIU/ML [id number] 00:00:00 Test Item Value Reference Range Interpretation Comments TSH (test code = 2821) 1.4 UIU/ML CBC W/AUTO [id number] 00:00:00 Test Item Value Reference Range Interpretation [...] code = 1015) 240 K/UL CBC W/AUTO [id number] 00:00:00 Test Item Value Reference Range Interpretation [...] code = 1015) 240 K/UL CBC W/AUTO [id number] 00:00:00 Test Item Value Reference Range Interpretation [...] (test code = 1015) 240 K/UL HEMOGLOBIN [id number] 00:00:00 Test Item Value Reference Range Interpretation Comments HEMOGLOBIN A1c (test code = 39572) 6.6 % HEMOGLOBIN [id number] 00:00:00 Test Item Value Reference Range Interpretation Comments HEMOGLOBIN A1c (test code = 63821) 6.6 % HEMOGLOBIN [id number] 00:00:00 Test Item Value Reference Range Interpretation Comments HEMOGLOBIN A1c (test code = 24873) 6.6 % CBC W/AUTO [id number] 00:00:00 Test Item Value Reference Range Interpretation [...] code = 1015) 240 K/UL CBC W/AUTO [id number] 00:00:00 Test Item Value Reference Range Interpretation [...] code = 1015) 240 K/UL CBC W/AUTO [id number] 00:00:00 Test Item Value Reference Range Interpretation [...] (test code = 1015) 240 K/UL HEMOGLOBIN [id number] 00:00:00 Test Item Value Reference Range Interpretation Comments HEMOGLOBIN A1c (test code = 94125) 6.6 % HEMOGLOBIN [id number] 00:00:00 Test Item Value Reference Range Interpretation Comments HEMOGLOBIN A1c (test code = 96375) 6.6 % HEMOGLOBIN [id number] 00:00:00 Test Item Value Reference Range Interpretation Comments HEMOGLOBIN A1c (test code = 00125) 6.6 % CBC W/AUTO [id number] 00:00:00 Test Item Value Reference Range Interpretation [...] code = 1015) 240 K/UL CBC W/AUTO [id number] 00:00:00 Test Item Value Reference Range Interpretation [...] code = 1015) 240 K/UL CBC W/AUTO [id number] 00:00:00 Test Item Value Reference Range Interpretation [...] (test code = 1015) 240 K/UL HEMOGLOBIN [id number] 00:00:00 Test Item Value Reference Range Interpretation Comments HEMOGLOBIN A1c (test code = 46784) 6.6 % HEMOGLOBIN [id number] 00:00:00 Test Item Value Reference Range Interpretation Comments HEMOGLOBIN A1c (test code = 41313) 6.6 % HEMOGLOBIN [id number] 00:00:00 Test Item Value Reference Range Interpretation Comments HEMOGLOBIN A1c (test code = 85348) 6.6 % CHEM [id number] 08:47:00 Test Item Value Reference Range Interpretation Comments Lipase Lvl (test code = Lipase Lvl) [address] [id number] 08:47:00 Test Item Value Reference Range Interpretation Comments Lipase Lvl (test code = Lipase Lvl) [facility] [address] [id number] 08:47:00 Test Item Value Reference Range Interpretation Comments Lipase Lvl (test code = Lipase Lvl) [address] [id number] 08:47:00 Test Item Value Reference Range Interpretation Comments Lipase Lvl (test code = Lipase Lvl) [facility] [address] [place], [place] [id number] 08:47:00 Test Item Value Reference Range Interpretation Comments Lipase Lvl (test code = Lipase Lvl) [address] [place], [place] [id number] 08:47:00 Test Item Value Reference Range Interpretation Comments Lipase Lvl (test code = Lipase Lvl) [address] [place], [place] [id number] 08:47:00 Test Item Value Reference Range Interpretation Comments Lipase Lvl (test code = Lipase Lvl) [address] [place], [place] [id number] 08:47:00 Test Item Value Reference Range Interpretation Comments Lipase Lvl (test code = Lipase Lvl) [address] [place], [place] [id number] 08:47:00 Test Item Value Reference Range Interpretation Comments Lipase Lvl (test code = Lipase Lvl) [address] [place], [place] [id number] 08:47:00 Test Item Value Reference Range Interpretation Comments Lipase Lvl (test code = Lipase Lvl) [address] [place], [place] [id number] 08:47:00 Test Item Value Reference Range Interpretation Comments Lipase Lvl (test code = Lipase Lvl) [address] [place], [place] [id number] 08:47:00 Test Item Value Reference Range Interpretation Comments Lipase Lvl (test code = Lipase Lvl) [address] [place], [place] [id number] 10:18:00 Test Item Value Reference Range Interpretation Comments Trig (test code = Trig) [facility]upriqDWVPLD1674-27-12 10:18:00 Test Item Value Reference Range Interpretation Comments LDL (Calculated) (test code = LDL 82 (Calculated)) [facility] CenterVkmrhavAOGQLP3996-68-54 10:18:00 Test Item Value Reference Range Interpretation Comments CHD Risk (test code = CHD Risk) 2.23 3.90-5.80 [facility] CenterSweihpzNXHDOX8830-73-75 10:18:00 Test Item Value Reference Range Interpretation Comments VLDL (test code = VLDL) 13 [facility]2015-04-30 10:18:00 Test Item Value Reference Range Interpretation Comments Lipase Lvl (test code = Lipase Lvl) [address] [place], [place] [id number] 10:18:00 Test Item Value Reference Range Interpretation Comments Sodium Lvl (test code = Sodium Lvl) 134 135-145 [facility]ck[facility]ciIPKGQLWSDOUT6199-74-94 10:18:00 Test Item Value Reference Range Interpretation Comments Potassium Lvl (test code = Potassium 3.5 3.5-5.1 Lvl) [facility]YqyuramTHSTUVYSVXGG4221-74-34 10:18:00 Test Item Value Reference Range Interpretation Comments Calcium Lvl (test code = Calcium Lvl) 7.8 8.5-10.5 [facility] MichiganRoppakvPQERUAEPUEIL9970-37-03 10:18:00 Test Item Value Reference Range Interpretation Comments Chloride Lvl (test code = Chloride Lvl) 98 95-109 [facility] MichiganJdozrqmFOFBMQLGPMNH9942-20-26 10:18:00 Test Item Value Reference Range Interpretation Comments eGFR (test code = eGFR) 72 [facility]NxtqjflRMWVXUGLNLBV3001-59-49 10:18:00 Test Item Value Reference Range Interpretation Comments Globulin (test code = Globulin) 3.0 2.0-4.0 [facility] MichiganUtscoajJVGRZSYFVHBD9604-91-67 10:18:00 Test Item Value Reference Range Interpretation Comments A/G Ratio (test code = A/G Ratio) 1.0 0.7-1.6 [facility] MichiganWkwazsuXAPYXKHCTTQW9092-06-15 10:18:00 Test Item Value Reference Range Interpretation Comments AST (test code = AST) 45 See_Comment [Auto mated message] The system which ge nerated this result transmit rafael reference range : <=37. The reference range was not used to interpr et this result as josi l/abnormal. [facility] MichiganUwnjsqkCSHLOYPBWQDE3777-99-87 10:18:00 Test Item Value Reference Range Interpretation Comments ALT (test code = ALT) 57 See_Comment [Auto mated message] The system which ge nerated this result transmit rafael reference range : <=65. The reference range was not used to interpr et this result as josi l/abnormal. [facility] MichiganOnyzpcsWPDTSTAWJLHY2965-13-15 10:18:00 Test Item Value Reference Range Interpretation Comments Alk Phos (test code = Alk Phos) 49 39-136 [facility] MichiganXzlvosxDYURHOHZDRLH5237-99-06 10:18:00 Test Item Value Reference Range Interpretation Comments Bili Total (test code = Bili Total) 0.7 0.2-1.3 [facility] MichiganXesypgwGELFEMZXZVDE0579-29-99 10:18:00 Test Item Value Reference Range Interpretation Comments Glucose Lvl (test code = Glucose Lvl) 145 70-99 [facility] MichiganUqdytqoWFFULZBVVQSU7875-31-92 10:18:00 Test Item Value Reference Range Interpretation Comments Creatinine Lvl (test code = Creatinine 0.9 0.5-1.4 Lvl) [facility] MichiganVhuabxaQBMNVYEFDJJG4118-47-34 10:18:00 Test Item Value Reference Range Interpretation Comments BUN (test code = BUN) 12 7- [facility] MichiganMufnnxgWXYQQDVNRNFU8616-22-42 10:18:00 Test Item Value Reference Range Interpretation Comments B/C Ratio (test code = B/C Ratio) 13 6-25 [facility] MichiganZqqdjinITHNYXKPKNOY4846-33-89 10:18:00 Test Item Value Reference Range Interpretation Comments CO2 (test code = CO2) 30 24-32 [facility] MichiganOnmvukmFPFDCAPYWSKU6470-41-22 10:18:00 Test Item Value Reference Range Interpretation Comments Total Protein (test code = Total 6.1 6.4-8.4 Protein) [facility] MichiganVtoisnoGWMPTADLOOPQ1565-32-07 10:18:00 Test Item Value Reference Range Interpretation Comments AGAP (test code = AGAP) 9.5 10.0-20.0 [facility] MichiganKowkbgqSZYHCGBSCNVS6493-03-13 10:18:00 Test Item Value Reference Range Interpretation Comments Albumin Lvl (test code = Albumin Lvl) 3.1 3.5-5.0 [facility] TempleBnsklfdKNPGDPKTZQ4497-18-83 10:18:00 Test Item Value Reference Range Interpretation Comments Eosinophils # (test code 0.2 See_Comment [A utomated message] The = Eosinophils #) system whic h generated this result tra nsmitted reference range : <=0.5. The reference r genesis was not used to int erpret this result as normal/abnormal . [facility] TempleSdmoxmbJTKFRZZPOG7488-39-96 10:18:00 Test Item Value Reference Range Interpretation Comments Macrocyte (test code = 2+ *ABN*(10/31/14 Macrocyte) 5:18 AM) [facility] TempleNxzfmcjWTWGRTYXTX9775-79-25 10:18:00 Test Item Value Reference Range Interpretation Comments Monocytes # (test code 0.5 See_Comment [Aut omated message] The = Monocytes #) system which generated this result tra nsmitted reference range : <=0.8. The reference r genesis was not used to int erpret this result as normal/abnormal . [facility] TempleSrvxyfvWZDPUTJMHP4014-85-82 10:18:00 Test Item Value Reference Range Interpretation Comments Eosinophils (test code = 2.3 See_Comment [A utomated message] The Eosinophils) system which ge nerated this result tra nsmitted reference range : <=4.0. The reference r genesis was not used to int erpret this result as normal/abnormal . [facility] TempleKltwmymCPDTRRBAVX5573-66-51 10:18:00 Test Item Value Reference Range Interpretation Comments Lymphocytes # (test code = Lymphocytes 1.2 1.0-5.5 #) [facility] TempleRzpciqmGFUECEXAUC6736-57-01 10:18:00 Test Item Value Reference Range Interpretation Comments Basophils (test code = 0.3 See_Comment [Aut omated message] The Basophils) system which ge nerated this result tra nsmitted reference range : <=1.0. The reference r genesis was not used to int erpret this result as normal/abnormal . [facility] TempleUjyebwoCOYGPKHBLC0221-61-31 10:18:00 Test Item Value Reference Range Interpretation Comments Segs-Bands # (test code = Segs-Bands #) 6.1 1.5-8.1 [facility] TempleOzdbdewIXIHTLKIKW6201-83-98 10:18:00 Test Item Value Reference Range Interpretation Comments Monocytes (test code = Monocytes) 6.1 2.0-12.0 [facility] TempleHqwzmmcREYTOLBHND4976-62-95 10:18:00 Test Item Value Reference Range Interpretation Comments Lymphocytes (test code = Lymphocytes) 15.1 20.0-40.0 [facility] TempleZhvfvltGOHROYHLDI0542-49-05 10:18:00 Test Item Value Reference Range Interpretation Comments Segs (test code = Segs) 76.2 45.0-75.0 [facility] TempleIosfegeRXNGMQWYBZ6131-17-46 10:18:00 Test Item Value Reference Range Interpretation Comments MCHC (test code = MCHC) 33.9 32.0-36.0 [facility] TempleTjrdhliRWAJPLZZNW0217-00-70 10:18:00 Test Item Value Reference Range Interpretation Comments MCV (test code = MCV) 104.7 80.0-98.0 [facility] TempleCcrornfQJMIDCHKNJ6413-98-04 10:18:00 Test Item Value Reference Range Interpretation Comments Hct (test code = Hct) 35.5 36.0-48.0 [facility] TempleZcnxiunILFTWFGHKT6819-23-88 10:18:00 Test Item Value Reference Range Interpretation Comments Hgb (test code = Hgb) 12.0 12.0-16.0 [facility] TempleXnvobcvIWFUTGULAN5034-19-50 10:18:00 Test Item Value Reference Range Interpretation Comments WBC (test code = WBC) 8.0 3.7-10.4 [facility] TempleBjjssysTRLARYSLOO8654-38-21 10:18:00 Test Item Value Reference Range Interpretation Comments RBC (test code = RBC) 3.39 4.20-5.40 [facility] TempleJrqlnqtNZCBCIURGR7468-95-92 10:18:00 Test Item Value Reference Range Interpretation Comments Platelet (test code = Platelet) 128 133-450 [facility] TempleZpgywyvXFIBIJRKYI0664-68-50 10:18:00 Test Item Value Reference Range Interpretation Comments MPV (test code = MPV) 9.5 7.4-10.4 [facility] TempleBwuhixkUUJCXJSZVX5198-36-15 10:18:00 Test Item Value Reference Range Interpretation Comments RDW (test code = RDW) 12.7 11.5-14.5 [facility] TempleFqwinthVIUUICWRMC7422-95-80 10:18:00 Test Item Value Reference Range Interpretation Comments MCH (test code = MCH) 35.5 pg 27.0-31.0 [facility] CenterHyamkxuQYIZFB6736-77-14 10:18:00 Test Item Value Reference Range Interpretation Comments HDL (test code = HDL) 77 [facility] CenterAuchlfjODTUCI1659-72-02 10:18:00 Test Item Value Reference Range Interpretation Comments Chol (test code = Chol) 172 [facility] CenterQbwqhmmTAFSQY2957-39-81 10:18:00 Test Item Value Reference Range Interpretation Comments Trig (test code = Trig) 67 [facility] CenterQcxjicbYSJNYP4439-41-76 10:18:00 Test Item Value Reference Range Interpretation Comments LDL (Calculated) (test code = LDL 82 (Calculated)) [facility] CenterGkotzgmWOIRKB2089-57-47 10:18:00 Test Item Value Reference Range Interpretation Comments CHD Risk (test code = CHD Risk) 2.23 3.90-5.80 [facility]neyKmsfjsmNCYATP7303-72-96 10:18:00 Test Item Value Reference Range Interpretation Comments VLDL (test code = VLDL) 13 [facility] MckinneyCHEM NHRIM0338-38-61 10:18:00 Test Item Value Reference Range Interpretation Comments Lipase Lvl (test code = Lipase Lvl) 660 73-393 [facility] MichiganPwbvlooEJBLZHGPBLMC6263-19-68 10:18:00 Test Item Value Reference Range Interpretation Comments Sodium Lvl (test code = Sodium Lvl) 134 135-145 [facility] MichiganFfsyldsCVKRUVGYFEDW0678-56-79 10:18:00 Test Item Value Reference Range Interpretation Comments Potassium Lvl (test code = Potassium 3.5 3.5-5.1 Lvl) [facility] MichiganOegisyuKBMNLTTJXCLO4997-23-04 10:18:00 Test Item Value Reference Range Interpretation Comments Calcium Lvl (test code = Calcium Lvl) 7.8 8.5-10.5 [facility] MichiganUaephwzFPDHXVJFNBOO0629-35-13 10:18:00 Test Item Value Reference Range Interpretation Comments Chloride Lvl (test code = Chloride Lvl) 98 95-109 [facility] MichiganJtqfusvWPYEDSUQKPPU9253-45-83 10:18:00 Test Item Value Reference Range Interpretation Comments eGFR (test code = eGFR) 72 [facility] MichiganOvkhcqsVDUSCVSIGYSI1387-39-41 10:18:00 Test Item Value Reference Range Interpretation Comments Globulin (test code = Globulin) 3.0 2.0-4.0 [facility] MichiganStmwufzQWTZLMBWJOIX0775-65-12 10:18:00 Test Item Value Reference Range Interpretation Comments A/G Ratio (test code = A/G Ratio) 1.0 0.7-1.6 [facility] MichiganWzjybwlSYEHAOWEKBHB6697-69-81 10:18:00 Test Item Value Reference Range Interpretation Comments AST (test code = AST) 45 See_Comment [Auto mated message] The system which ge nerated this result transmit rafael reference range : <=37. The reference range was not used to interpr et this result as josi l/abnormal. [facility] MichiganMxvxckpEUDYGRRKGYNR5681-63-35 10:18:00 Test Item Value Reference Range Interpretation Comments ALT (test code = ALT) 57 See_Comment [Auto mated message] The system which ge nerated this result transmit rafael reference range : <=65. The reference range was not used to interpr et this result as josi l/abnormal. [facility] MichiganUvaazsiATUJQJMVCCYW3986-75-30 10:18:00 Test Item Value Reference Range Interpretation Comments Alk Phos (test code = Alk Phos) 49 39-136 [facility] MichiganUcdlcylJKNNKDBOLFPX5491-63-23 10:18:00 Test Item Value Reference Range Interpretation Comments Bili Total (test code = Bili Total) 0.7 0.2-1.3 [facility] MichiganPlkjvdkDZXLYXFCBFUE4492-62-06 10:18:00 Test Item Value Reference Range Interpretation Comments Glucose Lvl (test code = Glucose Lvl) 145 70-99 [facility] MichiganHxkclxqOONDRZUYZZDL5588-74-36 10:18:00 Test Item Value Reference Range Interpretation Comments Creatinine Lvl (test code = Creatinine 0.9 0.5-1.4 Lvl) [facility] MichiganNjnkhgsWRZUUUYWNXQN9850-37-99 10:18:00 Test Item Value Reference Range Interpretation Comments BUN (test code = BUN) 12 7-22 [facility] MichiganLziyzskQBNMHQJZMJJD2787-54-16 10:18:00 Test Item Value Reference Range Interpretation Comments B/C Ratio (test code = B/C Ratio) 13 6-25 [facility] MichiganFhvsalbYYQIUPPDBVTZ5856-30-90 10:18:00 Test Item Value Reference Range Interpretation Comments CO2 (test code = CO2) 30 24-32 [facility] MichiganQwjhcbkQKMEIBZYHCOH4363-74-05 10:18:00 Test Item Value Reference Range Interpretation Comments Total Protein (test code = Total 6.1 6.4-8.4 Protein) [facility] MichiganUldhvpnFCVIXXVWKKPW7539-59-02 10:18:00 Test Item Value Reference Range Interpretation Comments AGAP (test code = AGAP) 9.5 10.0-20.0 [facility] MichiganDyworxrUYRXZKUWCRMA6065-19-25 10:18:00 Test Item Value Reference Range Interpretation Comments Albumin Lvl (test code = Albumin Lvl) 3.1 3.5-5.0 [facility] MckinneyIiludmrNOWTCGITEJ0384-91-07 10:18:00 Test Item Value Reference Range Interpretation Comments Eosinophils # (test code 0.2 See_Comment [A utomated message] The = Eosinophils #) system whic h generated this result tra nsmitted reference range : <=0.5. The reference r genesis was not used to int erpret this result as normal/abnormal . [facility] TempleMfgafiiBKWGCKQSWE1001-98-72 10:18:00 Test Item Value Reference Range Interpretation Comments Macrocyte (test code = 2+ *ABN*(10/31/14 Macrocyte) 5:18 AM) [facility] TempleJtqimaxOTGDQJGLSV5087-71-40 10:18:00 Test Item Value Reference Range Interpretation Comments Monocytes # (test code 0.5 See_Comment [Aut omated message] The = Monocytes #) system which generated this result tra nsmitted reference range : <=0.8. The reference r genesis was not used to int erpret this result as normal/abnormal . [facility] TempleLbyyfkvZILTMWGUNM3397-72-06 10:18:00 Test Item Value Reference Range Interpretation Comments Eosinophils (test code = 2.3 See_Comment [A utomated message] The Eosinophils) system which ge nerated this result tra nsmitted reference range : <=4.0. The reference r genesis was not used to int erpret this result as normal/abnormal . [facility] TempleLphodzvJKRVDAHVKV3473-59-60 10:18:00 Test Item Value Reference Range Interpretation Comments Lymphocytes # (test code = Lymphocytes 1.2 1.0-5.5 #) [facility] TempleFdnovdyJXKIUCRLUT7821-07-78 10:18:00 Test Item Value Reference Range Interpretation Comments Basophils (test code = 0.3 See_Comment [Aut omated message] The Basophils) system which ge nerated this result tra nsmitted reference range : <=1.0. The reference r genesis was not used to int erpret this result as normal/abnormal . [facility] TempleRhdpktnJYXCEFKURX7034-70-44 10:18:00 Test Item Value Reference Range Interpretation Comments Segs-Bands # (test code = Segs-Bands #) 6.1 1.5-8.1 [facility] TempleZxpgmfiOMVNHRSOFN8109-06-82 10:18:00 Test Item Value Reference Range Interpretation Comments Monocytes (test code = Monocytes) 6.1 2.0-12.0 [facility] TempleAxbgqbsKEIPKMKMZJ8988-53-38 10:18:00 Test Item Value Reference Range Interpretation Comments Lymphocytes (test code = Lymphocytes) 15.1 20.0-40.0 [facility] TempleNtdbvcrQEGEPLDFCI0735-82-88 10:18:00 Test Item Value Reference Range Interpretation Comments Segs (test code = Segs) 76.2 45.0-75.0 [facility] TempleTmuxwgxKGYAQEZPHV0040-60-83 10:18:00 Test Item Value Reference Range Interpretation Comments MCHC (test code = MCHC) 33.9 32.0-36.0 [facility] TempleNzioynxPKVXAPQLXP6429-37-49 10:18:00 Test Item Value Reference Range Interpretation Comments MCV (test code = MCV) 104.7 80.0-98.0 [facility] TempleIzbqzujKLSMGMIEML4287-48-53 10:18:00 Test Item Value Reference Range Interpretation Comments Hct (test code = Hct) 35.5 36.0-48.0 [facility] TempleUhtzaaiLAVGGBXKYR5384-53-59 10:18:00 Test Item Value Reference Range Interpretation Comments Hgb (test code = Hgb) 12.0 12.0-16.0 [facility] TempleArrcnxlHPBIFSKFGZ1584-03-50 10:18:00 Test Item Value Reference Range Interpretation Comments WBC (test code = WBC) 8.0 3.7-10.4 [facility] TempleTcwrxqhVQLOPTEFKT2410-28-00 10:18:00 Test Item Value Reference Range Interpretation Comments RBC (test code = RBC) 3.39 4.20-5.40 [facility] TempleZjrnvuuPDKHAXPQJZ0080-73-81 10:18:00 Test Item Value Reference Range Interpretation Comments Platelet (test code = Platelet) 128 133-450 [facility] TempleQfjemgmAPZTCUHXPG4501-65-58 10:18:00 Test Item Value Reference Range Interpretation Comments MPV (test code = MPV) 9.5 7.4-10.4 [facility] TempleOfscrieAQLIVGNIWC3914-29-07 10:18:00 Test Item Value Reference Range Interpretation Comments RDW (test code = RDW) 12.7 11.5-14.5 [facility] TempleNvlopsxXZFYWBTXSD2909-38-83 10:18:00 Test Item Value Reference Range Interpretation Comments MCH (test code = MCH) 35.5 pg 27.0-31.0 [facility] CenterPefdsgwMAAFYW8670-61-07 10:18:00 Test Item Value Reference Range Interpretation Comments HDL (test code = HDL) 77 [facility] CenterTktakkvXFELFA4028-89-15 10:18:00 Test Item Value Reference Range Interpretation Comments Chol (test code = Chol) 172 [facility] CenterPxtunswAVCBCA7184-53-78 10:18:00 Test Item Value Reference Range Interpretation Comments Trig (test code = Trig) 67 [facility] MckinneySooixudTSLWSP4222-53-98 10:18:00 Test Item Value Reference Range Interpretation Comments LDL (Calculated) (test code = LDL 82 (Calculated)) [facility] MckinneyWcfbhsnJIYEKS1156-40-00 10:18:00 Test Item Value Reference Range Interpretation Comments CHD Risk (test code = CHD Risk) 2.23 3.90-5.80 [facility] MckinneyBbfhixuQUUADC7071-04-03 10:18:00 Test Item Value Reference Range Interpretation Comments VLDL (test code = VLDL) 13 [facility] MckinneyCHEM COKIY7986-00-48 10:18:00 Test Item Value Reference Range Interpretation Comments Lipase Lvl (test code = Lipase Lvl) 660 73-393 [facility] MichiganVtowaqkCIHPSVPBCOBM5374-67-60 10:18:00 Test Item Value Reference Range Interpretation Comments Sodium Lvl (test code = Sodium Lvl) 134 135-145 [facility] MichiganRdmcucfWTHRUWLWYJHS2155-91-43 10:18:00 Test Item Value Reference Range Interpretation Comments Potassium Lvl (test code = Potassium 3.5 3.5-5.1 Lvl) [facility] MichiganTmwpukzYQUVCFBHUWBP8332-29-39 10:18:00 Test Item Value Reference Range Interpretation Comments Calcium Lvl (test code = Calcium Lvl) 7.8 8.5-10.5 [facility] MichiganGmmembiRYXDEZUVVFEA9772-08-45 10:18:00 Test Item Value Reference Range Interpretation Comments Chloride Lvl (test code = Chloride Lvl) 98 95-109 [facility] MichiganXehcwzaPMAIBUSIFJAO3408-15-84 10:18:00 Test Item Value Reference Range Interpretation Comments eGFR (test code = eGFR) 72 [facility] MichiganAjootsiCRMBQANVQLRI2226-57-17 10:18:00 Test Item Value Reference Range Interpretation Comments Globulin (test code = Globulin) 3.0 2.0-4.0 [facility] MichiganYlrhcsdEJVNYFNLMSGT0605-90-27 10:18:00 Test Item Value Reference Range Interpretation Comments A/G Ratio (test code = A/G Ratio) 1.0 0.7-1.6 [facility] MichiganJlaypulWRDVDPIWDNJE3635-75-16 10:18:00 Test Item Value Reference Range Interpretation Comments AST (test code = AST) 45 See_Comment [Auto mated message] The system which ge nerated this result transmit rafael reference range : <=37. The reference range was not used to interpr et this result as josi l/abnormal. [facility] MichiganShaogglJZQJAZBNUWBS6890-55-59 10:18:00 Test Item Value Reference Range Interpretation Comments ALT (test code = ALT) 57 See_Comment [Auto mated message] The system which ge nerated this result transmit rafael reference range : <=65. The reference range was not used to interpr et this result as josi l/abnormal. [facility] MichiganBeltbbxXGQDFXOIJBPB5581-71-13 10:18:00 Test Item Value Reference Range Interpretation Comments Alk Phos (test code = Alk Phos) 49 39-136 [facility] MichiganEyzfknsGUXJNUOTYECN8246-26-79 10:18:00 Test Item Value Reference Range Interpretation Comments Bili Total (test code = Bili Total) 0.7 0.2-1.3 [facility] MichiganHeldsncGYYBTUZGLKXH8866-02-95 10:18:00 Test Item Value Reference Range Interpretation Comments Glucose Lvl (test code = Glucose Lvl) 145 70-99 [facility] MichiganTziaytvJTLKKRCGJXQP1742-31-77 10:18:00 Test Item Value Reference Range Interpretation Comments Creatinine Lvl (test code = Creatinine 0.9 0.5-1.4 Lvl) [facility] MichiganTwqposbDMXXQMMAAGNR6904-21-94 10:18:00 Test Item Value Reference Range Interpretation Comments BUN (test code = BUN) 12 7-22 [facility] MichiganLcgfahsBYMABOONPCAH2615-41-51 10:18:00 Test Item Value Reference Range Interpretation Comments B/C Ratio (test code = B/C Ratio) 13 6-25 [facility] MichiganIukatugRTTUQLOUBCWM5430-63-36 10:18:00 Test Item Value Reference Range Interpretation Comments CO2 (test code = CO2) 30 24-32 [facility] MichiganPnwgtzfEJGGVOEJKEKX2646-60-29 10:18:00 Test Item Value Reference Range Interpretation Comments Total Protein (test code = Total 6.1 6.4-8.4 Protein) [facility] MichiganUqyzpfoPUERKLSLERRH3713-86-90 10:18:00 Test Item Value Reference Range Interpretation Comments AGAP (test code = AGAP) 9.5 10.0-20.0 [facility] MichiganGexuglmPAHYXQEVGYST6120-16-82 10:18:00 Test Item Value Reference Range Interpretation Comments Albumin Lvl (test code = Albumin Lvl) 3.1 3.5-5.0 [facility] TempleKoalfeiOWWROFNYGC4580-66-06 10:18:00 Test Item Value Reference Range Interpretation Comments Eosinophils # (test code 0.2 See_Comment [A utomated message] The = Eosinophils #) system whic h generated this result tra nsmitted reference range : <=0.5. The reference r genesis was not used to int erpret this result as normal/abnormal . [facility] TempleDplferaVFTGQNWEUS1616-68-85 10:18:00 Test Item Value Reference Range Interpretation Comments Macrocyte (test code = 2+ *ABN*(10/31/14 Macrocyte) 5:18 AM) [facility] TempleEbdbljtUNIKQUPSFC4545-22-96 10:18:00 Test Item Value Reference Range Interpretation Comments Monocytes # (test code 0.5 See_Comment [Aut omated message] The = Monocytes #) system which generated this result tra nsmitted reference range : <=0.8. The reference r genesis was not used to int erpret this result as normal/abnormal . [facility] TempleDsiblagQTWLCKYIWP3022-46-97 10:18:00 Test Item Value Reference Range Interpretation Comments Eosinophils (test code = 2.3 See_Comment [A utomated message] The Eosinophils) system which ge nerated this result tra nsmitted reference range : <=4.0. The reference r genesis was not used to int erpret this result as normal/abnormal . [facility] TempleKnkshrmSAZYBNWZJN1742-74-47 10:18:00 Test Item Value Reference Range Interpretation Comments Lymphocytes # (test code = Lymphocytes 1.2 1.0-5.5 #) [facility] TempleIgkojfePRUTJBYIUT5476-93-44 10:18:00 Test Item Value Reference Range Interpretation Comments Basophils (test code = 0.3 See_Comment [Aut omated message] The Basophils) system which ge nerated this result tra nsmitted reference range : <=1.0. The reference r genesis was not used to int erpret this result as normal/abnormal . [facility] TempleCfplmjzPJVXCBRZDO2810-09-73 10:18:00 Test Item Value Reference Range Interpretation Comments Segs-Bands # (test code = Segs-Bands #) 6.1 1.5-8.1 [facility] TempleAqaicmmQJCOABWZRT6332-08-67 10:18:00 Test Item Value Reference Range Interpretation Comments Monocytes (test code = Monocytes) 6.1 2.0-12.0 [facility]mebhlcYQVSSQPAPK0149-63-64 10:18:00 Test Item Value Reference Range Interpretation Comments Lymphocytes (test code = Lymphocytes) 15.1 20.0-40.0 [facility] TempleDpupjntLKXUOACHHN1385-72-95 10:18:00 Test Item Value Reference Range Interpretation Comments Segs (test code = Segs) 76.2 45.0-75.0 [facility] TempleKswuzxrMNORAQNENA1719-59-49 10:18:00 Test Item Value Reference Range Interpretation Comments MCHC (test code = MCHC) 33.9 32.0-36.0 [facility] TempleVyibnuqKOGVEDWFLJ9779-33-97 10:18:00 Test Item Value Reference Range Interpretation Comments MCV (test code = MCV) 104.7 80.0-98.0 [facility] TempleAjfjibrXGDMZTBSCM0808-38-13 10:18:00 Test Item Value Reference Range Interpretation Comments Hct (test code = Hct) 35.5 36.0-48.0 [facility] TempleIyyybddYAEQCEZQMV6049-30-81 10:18:00 Test Item Value Reference Range Interpretation Comments Hgb (test code = Hgb) 12.0 12.0-16.0 [facility] TempleBssgblnYNWNWLSJAU0653-76-29 10:18:00 Test Item Value Reference Range Interpretation Comments WBC (test code = WBC) 8.0 3.7-10.4 [facility] TempleHvwodbrKPREJUBPLV0290-35-03 10:18:00 Test Item Value Reference Range Interpretation Comments RBC (test code = RBC) 3.39 4.20-5.40 [facility] TempleXrbiyoyACQYGMJRPO9707-60-41 10:18:00 Test Item Value Reference Range Interpretation Comments Platelet (test code = Platelet) 128 133-450 [facility] TempleXqqtkysDZHAKNPWNR1898-04-65 10:18:00 Test Item Value Reference Range Interpretation Comments MPV (test code = MPV) 9.5 7.4-10.4 [facility] TempleIlbrxmxEJTGURCGUJ7359-77-37 10:18:00 Test Item Value Reference Range Interpretation Comments RDW (test code = RDW) 12.7 11.5-14.5 [facility] TempleTaeqhmfODITJTTGHQ2138-01-85 10:18:00 Test Item Value Reference Range Interpretation Comments MCH (test code = MCH) 35.5 pg 27.0-31.0 [facility]inneyKljeetbKUIOQA0310-81-45 10:18:00 Test Item Value Reference Range Interpretation Comments HDL (test code = HDL) 77 [facility] MckinneyBnljywpOCUIMC9167-45-42 10:18:00 Test Item Value Reference Range Interpretation Comments Chol (test code = Chol) 172 [facility] CenterUrwchqiKVPOMB9208-14-22 10:18:00 Test Item Value Reference Range Interpretation Comments Trig (test code = Trig) 67 [facility] CenterCmfcpmhBPJQVT7900-67-66 10:18:00 Test Item Value Reference Range Interpretation Comments LDL (Calculated) (test code = LDL 82 (Calculated)) [facility] CenterAjozcuqGIGWWJ7743-48-03 10:18:00 Test Item Value Reference Range Interpretation Comments CHD Risk (test code = CHD Risk) 2.23 3.90-5.80 [facility] CenterGrwuxusABDERP2872-17-09 10:18:00 Test Item Value Reference Range Interpretation Comments VLDL (test code = VLDL) 13 [facility] MckinneyCHEM KAMNM9310-93-59 10:18:00 Test Item Value Reference Range Interpretation Comments Lipase Lvl (test code = Lipase Lvl) 660 73-393 [facility]XbfduttKARXLSPNCBAS2951-24-74 10:18:00 Test Item Value Reference Range Interpretation Comments Sodium Lvl (test code = Sodium Lvl) 134 135-145 [facility] MichiganWldklvlZTMPDIOWAUEN8564-23-93 10:18:00 Test Item Value Reference Range Interpretation Comments Potassium Lvl (test code = Potassium 3.5 3.5-5.1 Lvl) [facility] MichiganTmrjjumGDANDLBPWYER9878-36-85 10:18:00 Test Item Value Reference Range Interpretation Comments Calcium Lvl (test code = Calcium Lvl) 7.8 8.5-10.5 [facility] MichiganOfqesotPNMYRQFZXWXP5916-93-04 10:18:00 Test Item Value Reference Range Interpretation Comments Chloride Lvl (test code = Chloride Lvl) 98 95-109 [facility] MichiganSkpiikrYRHVECMYFLFN5947-77-43 10:18:00 Test Item Value Reference Range Interpretation Comments eGFR (test code = eGFR) 72 [facility] MichiganNxhktlpVRFFVAEUCIKF4400-39-50 10:18:00 Test Item Value Reference Range Interpretation Comments Globulin (test code = Globulin) 3.0 2.0-4.0 [facility] MichiganHbldtzrXJXIAQAGTMHP7397-70-33 10:18:00 Test Item Value Reference Range Interpretation Comments A/G Ratio (test code = A/G Ratio) 1.0 0.7-1.6 [facility] MichiganSqhzksgEWWSNHYZIMXR8983-44-89 10:18:00 Test Item Value Reference Range Interpretation Comments AST (test code = AST) 45 See_Comment [Auto mated message] The system which ge nerated this result transmit rafael reference range : <=37. The reference range was not used to interpr et this result as josi l/abnormal. [facility] MichiganKdkwxtfAFFRQGCYSFAL3316-70-13 10:18:00 Test Item Value Reference Range Interpretation Comments ALT (test code = ALT) 57 See_Comment [Auto mated message] The system which ge nerated this result transmit rafael reference range : <=65. The reference range was not used to interpr et this result as josi l/abnormal. [facility] MichiganEdhbzqcGTJTCKPLCAZD3704-14-08 10:18:00 Test Item Value Reference Range Interpretation Comments Alk Phos (test code = Alk Phos) 49 39-136 [facility] MichiganGtmjrgvUVUOLTFGNLUZ1519-53-51 10:18:00 Test Item Value Reference Range Interpretation Comments Bili Total (test code = Bili Total) 0.7 0.2-1.3 [facility] MichiganSpklpqyGBUTSDFYSCNI1201-48-25 10:18:00 Test Item Value Reference Range Interpretation Comments Glucose Lvl (test code = Glucose Lvl) 145 70-99 [facility] MichiganKwjvbllCHEOTIJFPSTT2103-81-64 10:18:00 Test Item Value Reference Range Interpretation Comments Creatinine Lvl (test code = Creatinine 0.9 0.5-1.4 Lvl) [facility] MichiganCrhhiqfRRDGJJHZPLLU3200-63-39 10:18:00 Test Item Value Reference Range Interpretation Comments BUN (test code = BUN) 12 7-22 [facility] MichiganHjnuwhuGGPXLPGRXRXG3571-90-90 10:18:00 Test Item Value Reference Range Interpretation Comments B/C Ratio (test code = B/C Ratio) 13 6-25 [facility] MichiganIxcehtqTVZHTXKZPUIS2591-43-69 10:18:00 Test Item Value Reference Range Interpretation Comments CO2 (test code = CO2) 30 24-32 [facility] MichiganMuhgbwrJYNIFUWEXSRE2895-73-86 10:18:00 Test Item Value Reference Range Interpretation Comments Total Protein (test code = Total 6.1 6.4-8.4 Protein) [facility] MichiganSfuucajTNWSENHVPQEG6784-98-28 10:18:00 Test Item Value Reference Range Interpretation Comments AGAP (test code = AGAP) 9.5 10.0-20.0 [facility] MichiganTkialigDXRLHLLEHNUF9017-70-70 10:18:00 Test Item Value Reference Range Interpretation Comments Albumin Lvl (test code = Albumin Lvl) 3.1 3.5-5.0 [facility] TempleOdygxroTGBEKSTSPJ7380-47-17 10:18:00 Test Item Value Reference Range Interpretation Comments Eosinophils # (test code 0.2 See_Comment [A utomated message] The = Eosinophils #) system whic h generated this result tra nsmitted reference range : <=0.5. The reference r genesis was not used to int erpret this result as normal/abnormal . [facility] TempleEencfxeIBGFFADGYI0523-92-12 10:18:00 Test Item Value Reference Range Interpretation Comments Macrocyte (test code = 2+ *ABN*(10/31/14 Macrocyte) 5:18 AM) [facility] TempleWemondnDBBXHNZASN9777-47-10 10:18:00 Test Item Value Reference Range Interpretation Comments Monocytes # (test code 0.5 See_Comment [Aut omated message] The = Monocytes #) system which generated this result tra nsmitted reference range : <=0.8. The reference r genesis was not used to int erpret this result as normal/abnormal . [facility] TempleSfpmzxwIAQYUYXALT1374-79-74 10:18:00 Test Item Value Reference Range Interpretation Comments Eosinophils (test code = 2.3 See_Comment [A utomated message] The Eosinophils) system which ge nerated this result tra nsmitted reference range : <=4.0. The reference r genesis was not used to int erpret this result as normal/abnormal . [facility] TempleKhgwpndKDAMUNGWNK4769-04-09 10:18:00 Test Item Value Reference Range Interpretation Comments Lymphocytes # (test code = Lymphocytes 1.2 1.0-5.5 #) [facility] TempleWvhozssBCGCHGIVWQ7013-18-86 10:18:00 Test Item Value Reference Range Interpretation Comments Basophils (test code = 0.3 See_Comment [Aut omated message] The Basophils) system which ge nerated this result tra nsmitted reference range : <=1.0. The reference r genesis was not used to int erpret this result as normal/abnormal . [facility] TempleKauaqyuGJLTIOUZXQ2620-57-60 10:18:00 Test Item Value Reference Range Interpretation Comments Segs-Bands # (test code = Segs-Bands #) 6.1 1.5-8.1 [facility] TempleHkkhlrzBGVXOSMFLW0771-56-82 10:18:00 Test Item Value Reference Range Interpretation Comments Monocytes (test code = Monocytes) 6.1 2.0-12.0 [facility] TempleVfrkfcxGVZIGDEIQD8700-95-91 10:18:00 Test Item Value Reference Range Interpretation Comments Lymphocytes (test code = Lymphocytes) 15.1 20.0-40.0 [facility] TempleJogvfmkWBGLDATQRQ6819-60-91 10:18:00 Test Item Value Reference Range Interpretation Comments Segs (test code = Segs) 76.2 45.0-75.0 [facility] TempleXfqaazxZSHIWPWFGP0961-88-06 10:18:00 Test Item Value Reference Range Interpretation Comments MCHC (test code = MCHC) 33.9 32.0-36.0 [facility] TempleYhwdzduHFERGLTCWI1584-86-59 10:18:00 Test Item Value Reference Range Interpretation Comments MCV (test code = MCV) 104.7 80.0-98.0 [facility] TempleVriehcxUWNGEVRHJS0889-21-39 10:18:00 Test Item Value Reference Range Interpretation Comments Hct (test code = Hct) 35.5 36.0-48.0 [facility] TempleIfjtfwzGAUKGPAYTX7071-47-48 10:18:00 Test Item Value Reference Range Interpretation Comments Hgb (test code = Hgb) 12.0 12.0-16.0 [facility] TempleYbnkjlgCEOWVLUGLT4523-05-45 10:18:00 Test Item Value Reference Range Interpretation Comments WBC (test code = WBC) 8.0 3.7-10.4 [facility] TempleBtgyxhzKOCXJXSDIC2047-50-50 10:18:00 Test Item Value Reference Range Interpretation Comments RBC (test code = RBC) 3.39 4.20-5.40 [facility] TempleStmpqxgRULXLUOOPK7463-28-27 10:18:00 Test Item Value Reference Range Interpretation Comments Platelet (test code = Platelet) 128 133-450 [facility] TempleEkwvkgnXAPZLIGCZJ1948-16-14 10:18:00 Test Item Value Reference Range Interpretation Comments MPV (test code = MPV) 9.5 7.4-10.4 [facility] TempleSimbqisGCHLZKNANC3917-89-32 10:18:00 Test Item Value Reference Range Interpretation Comments RDW (test code = RDW) 12.7 11.5-14.5 [facility]KVADBSSDSS0515[facility]54 10:18:00 Test Item Value Reference Range Interpretation Comments MCH (test code = MCH) 35.5 pg 27.0-31.0 [facility] CenterQxouirgKIMFBL8599-87-86 10:18:00 Test Item Value Reference Range Interpretation Comments HDL (test code = HDL) 77 [facility] MckinneyPeiejffIQENOV6397-22-24 10:18:00 Test Item Value Reference Range Interpretation Comments Chol (test code = Chol) 172 [facility] CenterWysjwsyIFLYST0727-53-93 10:18:00 Test Item Value Reference Range Interpretation Comments Trig (test code = Trig) 67 [facility] CenterJabnesiSPBIDW1770-99-14 10:18:00 Test Item Value Reference Range Interpretation Comments LDL (Calculated) (test code = LDL 82 (Calculated)) [facility] CenterMaacscmBPFBGR4469-88-58 10:18:00 Test Item Value Reference Range Interpretation Comments CHD Risk (test code = CHD Risk) 2.23 3.90-5.80 [facility]inneyAjctdvjBXPQWT9671-99-43 10:18:00 Test Item Value Reference Range Interpretation Comments VLDL (test code = VLDL) 13 [facility] MckinneyCHEM AABSI3190-66-99 10:18:00 Test Item Value Reference Range Interpretation Comments Lipase Lvl (test code = Lipase Lvl) 660 73-393 [facility] MichiganMvrmqxeGQWCAVUTGXLK5483-41-77 10:18:00 Test Item Value Reference Range Interpretation Comments Sodium Lvl (test code = Sodium Lvl) 134 135-145 [facility] MichiganYqxhztyAJRFAOZSLBPV3244-43-23 10:18:00 Test Item Value Reference Range Interpretation Comments Potassium Lvl (test code = Potassium 3.5 3.5-5.1 Lvl) [facility] MichiganOmahcxkSFQYEGHOJRKO7611-13-23 10:18:00 Test Item Value Reference Range Interpretation Comments Calcium Lvl (test code = Calcium Lvl) 7.8 8.5-10.5 [facility] MichiganIqjujzsXGDSVWKAVNES9552-43-37 10:18:00 Test Item Value Reference Range Interpretation Comments Chloride Lvl (test code = Chloride Lvl) 98 95-109 [facility] MichiganEnawoemWZRFKCSFKBRA2150-26-76 10:18:00 Test Item Value Reference Range Interpretation Comments eGFR (test code = eGFR) 72 [facility] MichiganZitezfpVDCWFZCYKPWX4791-95-64 10:18:00 Test Item Value Reference Range Interpretation Comments Globulin (test code = Globulin) 3.0 2.0-4.0 [facility] MichiganHwfegkaEAKOJZLBBMCD9182-22-71 10:18:00 Test Item Value Reference Range Interpretation Comments A/G Ratio (test code = A/G Ratio) 1.0 0.7-1.6 [facility] MichiganMxsqwotYSFGMJQRRJND6405-76-54 10:18:00 Test Item Value Reference Range Interpretation Comments AST (test code = AST) 45 See_Comment [Auto mated message] The system which ge nerated this result transmit rafael reference range : <=37. The reference range was not used to interpr et this result as josi l/abnormal. [facility] MichiganNjhfnhcCTPDXDFRPJTH0045-74-95 10:18:00 Test Item Value Reference Range Interpretation Comments ALT (test code = ALT) 57 See_Comment [Auto mated message] The system which ge nerated this result transmit rafael reference range : <=65. The reference range was not used to interpr et this result as josi l/abnormal. [facility] MichiganSmbxawyNVDFYRNUVLEL0808-39-86 10:18:00 Test Item Value Reference Range Interpretation Comments Alk Phos (test code = Alk Phos) 49 39-136 [facility] MichiganPpdrmzmZUKJUIJMURXX1516-77-73 10:18:00 Test Item Value Reference Range Interpretation Comments Bili Total (test code = Bili Total) 0.7 0.2-1.3 [facility] MichiganYhhwiqwAIFKHWHNECNC6595-70-28 10:18:00 Test Item Value Reference Range Interpretation Comments Glucose Lvl (test code = Glucose Lvl) 145 70-99 [facility] MichiganPfcjqrcVTZGNGFAHUCB5627-17-23 10:18:00 Test Item Value Reference Range Interpretation Comments Creatinine Lvl (test code = Creatinine 0.9 0.5-1.4 Lvl) [facility] MichiganIznezhbMQAVLJNKWZRO1631-88-17 10:18:00 Test Item Value Reference Range Interpretation Comments BUN (test code = BUN) 12 7- [facility] MichiganPbjoxlnNGHALVYVYEOV0571-89-86 10:18:00 Test Item Value Reference Range Interpretation Comments B/C Ratio (test code = B/C Ratio) 13 6-25 [facility] MichiganCjetayuMBOIMAQLDNTB0139-04-43 10:18:00 Test Item Value Reference Range Interpretation Comments CO2 (test code = CO2) 30 24-32 [facility] MichiganTxayqhlXADWDURFEHSJ8592-59-97 10:18:00 Test Item Value Reference Range Interpretation Comments Total Protein (test code = Total 6.1 6.4-8.4 Protein) [facility] MichiganGasxveeNOSWTAKGUNOA3920-25-61 10:18:00 Test Item Value Reference Range Interpretation Comments AGAP (test code = AGAP) 9.5 10.0-20.0 [facility] MichiganBarbynqQFYWUDPAEGMT9161-86-46 10:18:00 Test Item Value Reference Range Interpretation Comments Albumin Lvl (test code = Albumin Lvl) 3.1 3.5-5.0 [facility] TempleDopigclIQIWKHWZEE3503-14-52 10:18:00 Test Item Value Reference Range Interpretation Comments Eosinophils # (test code 0.2 See_Comment [A utomated message] The = Eosinophils #) system wh h generated this result tra nsmitted reference range : <=0.5. The reference r genesis was not used to int erpret this result as normal/abnormal . [facility] TempleNilqlpqKENQXCJUKT0039-38-85 10:18:00 Test Item Value Reference Range Interpretation Comments Macrocyte (test code = 2+ *ABN*(10/31/14 Macrocyte) 5:18 AM) [facility] TempleNlfgzbrRTMKVALRUC6670-45-12 10:18:00 Test Item Value Reference Range Interpretation Comments Monocytes # (test code 0.5 See_Comment [Aut omated message] The = Monocytes #) system which generated this result tra nsmitted reference range : <=0.8. The reference r genesis was not used to int erpret this result as normal/abnormal . [facility] TempleKzsbkviLGGCRDDXNB5326-03-88 10:18:00 Test Item Value Reference Range Interpretation Comments Eosinophils (test code = 2.3 See_Comment [A utomated message] The Eosinophils) system which ge nerated this result tra nsmitted reference range : <=4.0. The reference r genesis was not used to int erpret this result as normal/abnormal . [facility] TempleGuqkcrzEAHISHFRTW2211-26-37 10:18:00 Test Item Value Reference Range Interpretation Comments Lymphocytes # (test code = Lymphocytes 1.2 1.0-5.5 #) [facility] TempleQqwwxbbEJPIWEGIWC6619-66-67 10:18:00 Test Item Value Reference Range Interpretation Comments Basophils (test code = 0.3 See_Comment [Aut omated message] The Basophils) system which ge nerated this result tra nsmitted reference range : <=1.0. The reference r genesis was not used to int erpret this result as normal/abnormal . [facility] TempleObdsqrvZTYBVDPRGE5880-42-27 10:18:00 Test Item Value Reference Range Interpretation Comments Segs-Bands # (test code = Segs-Bands #) 6.1 1.5-8.1 [facility] TempleNsogkxgRJYWSCMHMC7511-08-88 10:18:00 Test Item Value Reference Range Interpretation Comments Monocytes (test code = Monocytes) 6.1 2.0-12.0 [facility] TempleGrnekvjAIOZBOKCLX4535-92-13 10:18:00 Test Item Value Reference Range Interpretation Comments Lymphocytes (test code = Lymphocytes) 15.1 20.0-40.0 [facility] TempleDidfhlqZIFOAEFDNL0812-85-86 10:18:00 Test Item Value Reference Range Interpretation Comments Segs (test code = Segs) 76.2 45.0-75.0 [facility] TempleNsvqqbhSBRYFLMAJB3998-77-52 10:18:00 Test Item Value Reference Range Interpretation Comments MCHC (test code = MCHC) 33.9 32.0-36.0 [facility] TempleHfypprvPJPDSWJRPT6164-59-29 10:18:00 Test Item Value Reference Range Interpretation Comments MCV (test code = MCV) 104.7 80.0-98.0 [facility] TempleFgyhsxhAJRNPRXTAL7563-22-22 10:18:00 Test Item Value Reference Range Interpretation Comments Hct (test code = Hct) 35.5 36.0-48.0 [facility] TempleWwvgbyvXNVZYWBHDY0001-94-16 10:18:00 Test Item Value Reference Range Interpretation Comments Hgb (test code = Hgb) 12.0 12.0-16.0 [facility] TempleHglkczhHQSKKNNZNK2192-70-31 10:18:00 Test Item Value Reference Range Interpretation Comments WBC (test code = WBC) 8.0 3.7-10.4 [facility] TempleLuqdbfyFWUFOTZMZD7307-38-68 10:18:00 Test Item Value Reference Range Interpretation Comments RBC (test code = RBC) 3.39 4.20-5.40 [facility] TempleRmntgfaYXLIGWBHWN8978-12-49 10:18:00 Test Item Value Reference Range Interpretation Comments Platelet (test code = Platelet) 128 133-450 [facility]AqgecycDYZPWVKODO5707-67-18 10:18:00 Test Item Value Reference Range Interpretation Comments MPV (test code = MPV) 9.5 7.4-10.4 [facility] TempleFjhjactJPENWCATRT2681-22-55 10:18:00 Test Item Value Reference Range Interpretation Comments RDW (test code = RDW) 12.7 11.5-14.5 [facility] TempleGaqmujxVCPJVWHATI8643-06-94 10:18:00 Test Item Value Reference Range Interpretation Comments MCH (test code = MCH) 35.5 pg 27.0-31.0 [facility] CenterJkngcpcUFNGPL9412-13-55 10:18:00 Test Item Value Reference Range Interpretation Comments HDL (test code = HDL) 77 [facility] CenterTrsqmhfJFOCTK2815-35-47 10:18:00 Test Item Value Reference Range Interpretation Comments Chol (test code = Chol) 172 [facility] CenterJhrimqcOBOPKU1684-05-57 10:18:00 Test Item Value Reference Range Interpretation Comments Trig (test code = Trig) 67 [facility] MckinneyNzyhjyaHNEBEI9160-31-18 10:18:00 Test Item Value Reference Range Interpretation Comments LDL (Calculated) (test code = LDL 82 (Calculated)) [facility] CenterJchmkgyVHYMKM1884-04-34 10:18:00 Test Item Value Reference Range Interpretation Comments CHD Risk (test code = CHD Risk) 2.23 3.90-5.80 [facility] MckinneyClglerzYGVPVO8925-52-38 10:18:00 Test Item Value Reference Range Interpretation Comments VLDL (test code = VLDL) 13 [facility] MckinneyCHEM LDJSL6851-83-17 10:18:00 Test Item Value Reference Range Interpretation Comments Lipase Lvl (test code = Lipase Lvl) 660 73-393 [facility]UhnvktmUBMFSIHGPQNO6386-32-30 10:18:00 Test Item Value Reference Range Interpretation Comments Sodium Lvl (test code = Sodium Lvl) 134 135-145 [facility] MichiganLbihprkZEGERJEJCONY3429-81-84 10:18:00 Test Item Value Reference Range Interpretation Comments Potassium Lvl (test code = Potassium 3.5 3.5-5.1 Lvl) [facility] MichiganBwnlieiVXGHGQTFXIGA2880-73-39 10:18:00 Test Item Value Reference Range Interpretation Comments Calcium Lvl (test code = Calcium Lvl) 7.8 8.5-10.5 [facility] MichiganMpzdbfdFDNFGYTZGXIV8512-43-79 10:18:00 Test Item Value Reference Range Interpretation Comments Chloride Lvl (test code = Chloride Lvl) 98 95-109 [facility] MichiganCetwsyaHTBSWSUWNLEF3850-43-21 10:18:00 Test Item Value Reference Range Interpretation Comments eGFR (test code = eGFR) 72 [facility] MichiganLuktcgsYMLFRHWYRBAQ6216-39-36 10:18:00 Test Item Value Reference Range Interpretation Comments Globulin (test code = Globulin) 3.0 2.0-4.0 [facility] MichiganTzvwxasGLWAEFRJGBTI1364-32-49 10:18:00 Test Item Value Reference Range Interpretation Comments A/G Ratio (test code = A/G Ratio) 1.0 0.7-1.6 [facility] MichiganMznqssqYJNOZODLIYWF7737-21-63 10:18:00 Test Item Value Reference Range Interpretation Comments AST (test code = AST) 45 See_Comment [Auto mated message] The system which ge nerated this result transmit rafael reference range : <=37. The reference range was not used to interpr et this result as josi l/abnormal. [facility] MichiganNjjlejnCEWFVWIHKPNB5145-82-22 10:18:00 Test Item Value Reference Range Interpretation Comments ALT (test code = ALT) 57 See_Comment [Auto mated message] The system which ge nerated this result transmit rafael reference range : <=65. The reference range was not used to interpr et this result as josi l/abnormal. [facility] MichiganThxutgtHIJNIHMMHTNL6106-71-74 10:18:00 Test Item Value Reference Range Interpretation Comments Alk Phos (test code = Alk Phos) 49 39-136 [facility] MichiganFfghwnqFEPKFLJPJAJQ9599-01-15 10:18:00 Test Item Value Reference Range Interpretation Comments Bili Total (test code = Bili Total) 0.7 0.2-1.3 [facility] MichiganRtoidexFUNPUGWAGOVO8076-84-09 10:18:00 Test Item Value Reference Range Interpretation Comments Glucose Lvl (test code = Glucose Lvl) 145 70-99 [facility] MichiganNjabapbXHUXLAHETCNV1306-32-02 10:18:00 Test Item Value Reference Range Interpretation Comments Creatinine Lvl (test code = Creatinine 0.9 0.5-1.4 Lvl) [facility] [place]ZwbukcbASHYLEHJXJBT4499-02-71 10:18:00 Test Item Value Reference Range Interpretation Comments BUN (test code = BUN) 12 01-22 [facility]EcypwtxPNXHFSAPXDED3346-20-03 10:18:00 Test Item Value Reference Range Interpretation Comments B/C Ratio (test code = B/C Ratio) 13 - [facility] MichiganJlshpldBGUBAYIMNLKT8816-29-73 10:18:00 Test Item Value Reference Range Interpretation Comments CO2 (test code = CO2) 30 [facility] MichiganFhschggSXLFUMDJXRDA2591-00-26 10:18:00 Test Item Value Reference Range Interpretation Comments Total Protein (test code = Total 6.1 6.4-8.4 Protein) [facility] MichiganQqgnqekEKMVMGYCNGJO5074-97-39 10:18:00 Test Item Value Reference Range Interpretation Comments AGAP (test code = AGAP) 9.5 10.0-20.0 [facility] MichiganNvzmuljISLJFGVVRDHO9535-15-57 10:18:00 Test Item Value Reference Range Interpretation Comments Albumin Lvl (test code = Albumin Lvl) 3.1 3.5-5.0 [facility] TempleSorjgteWVUACSKDZD2101-37-76 10:18:00 Test Item Value Reference Range Interpretation Comments Eosinophils # (test code 0.2 See_Comment [A utomated message] The = Eosinophils #) system whic h generated this result tra nsmitted reference range : <=0.5. The reference r genesis was not used to int erpret this result as normal/abnormal . [facility] TempleAszyshwGCGAGJFWXH2690-56-37 10:18:00 Test Item Value Reference Range Interpretation Comments Macrocyte (test code = 2+ *ABN*(10/31/14 Macrocyte) 5:18 AM) [facility] TempleFjivqrjAGUNCXGKVY1632-03-26 10:18:00 Test Item Value Reference Range Interpretation Comments Monocytes # (test code 0.5 See_Comment [Aut omated message] The = Monocytes #) system which generated this result tra nsmitted reference range : <=0.8. The reference r genesis was not used to int erpret this result as normal/abnormal . [facility] TempleRfytymbFYVUUEGUUY7734-05-65 10:18:00 Test Item Value Reference Range Interpretation Comments Eosinophils (test code = 2.3 See_Comment [A utomated message] The Eosinophils) system which ge nerated this result tra nsmitted reference range : <=4.0. The reference r genesis was not used to int erpret this result as normal/abnormal . [facility] TempleAwzakpqNXCPQOALXW6743-08-60 10:18:00 Test Item Value Reference Range Interpretation Comments Lymphocytes # (test code = Lymphocytes 1.2 1.0-5.5 #) [facility] TempleYcnwkysWKDOSGERKK2509-54-12 10:18:00 Test Item Value Reference Range Interpretation Comments Basophils (test code = 0.3 See_Comment [Aut omated message] The Basophils) system which ge nerated this result tra nsmitted reference range : <=1.0. The reference r genesis was not used to int erpret this result as normal/abnormal . [facility] TempleAnmgoapRLACYYRDMG3439-60-06 10:18:00 Test Item Value Reference Range Interpretation Comments Segs-Bands # (test code = Segs-Bands #) 6.1 1.5-8.1 [facility] TempleAnkunfcUCAEGQMVAL9215-80-78 10:18:00 Test Item Value Reference Range Interpretation Comments Monocytes (test code = Monocytes) 6.1 2.0-12.0 [facility] TempleXszhyxwOCSNWOQSRO5936-19-71 10:18:00 Test Item Value Reference Range Interpretation Comments Lymphocytes (test code = Lymphocytes) 15.1 20.0-40.0 [facility] TempleIleqpbsDSEZOZDDQU9995-36-82 10:18:00 Test Item Value Reference Range Interpretation Comments Segs (test code = Segs) 76.2 45.0-75.0 [facility] TempleOtvcuivYSBUDIAOJA6402-42-11 10:18:00 Test Item Value Reference Range Interpretation Comments MCHC (test code = MCHC) 33.9 32.0-36.0 [facility] TempleGmmawjsUHOOZOVXRL2278-31-03 10:18:00 Test Item Value Reference Range Interpretation Comments MCV (test code = MCV) 104.7 80.0-98.0 [facility] TempleHkbuqwlCRTYVDHZPM7549-08-07 10:18:00 Test Item Value Reference Range Interpretation Comments Hct (test code = Hct) 35.5 36.0-48.0 [facility] TempleZwunadyNVGMZWLIVU7817-09-51 10:18:00 Test Item Value Reference Range Interpretation Comments Hgb (test code = Hgb) 12.0 12.0-16.0 [facility]rcvbhxUZTMJZWUXV9989[facility]30-61 10:18:00 Test Item Value Reference Range Interpretation Comments WBC (test code = WBC) 8.0 3.7-10.4 [facility] TempleKaiguoxWOJIIJMKNC5985-84-37 10:18:00 Test Item Value Reference Range Interpretation Comments RBC (test code = RBC) 3.39 4.20-5.40 [facility] TempleNngkwfbSMSLFGREPU0836-27-71 10:18:00 Test Item Value Reference Range Interpretation Comments Platelet (test code = Platelet) 128 133-450 [facility] TempleMzbvhccICEICLJCWP0154-32-28 10:18:00 Test Item Value Reference Range Interpretation Comments MPV (test code = MPV) 9.5 7.4-10.4 [facility] TempleKspjgvcLGJNETQFUH5064-58-90 10:18:00 Test Item Value Reference Range Interpretation Comments RDW (test code = RDW) 12.7 11.5-14.5 [facility] TempleVstrgjxVHDTOEHCJQ1475-50-56 10:18:00 Test Item Value Reference Range Interpretation Comments MCH (test code = MCH) 35.5 pg 27.0-31.0 [facility] MckinneyAlpwhfkIEESOW1165-97-85 10:18:00 Test Item Value Reference Range Interpretation Comments HDL (test code = HDL) 77 [facility] MckinneyUsrgeruETUHQL5713-66-91 10:18:00 Test Item Value Reference Range Interpretation Comments Chol (test code = Chol) 172 [facility] MckinneyUeghuvrLXYPJR8322-70-50 10:18:00 Test Item Value Reference Range Interpretation Comments Trig (test code = Trig) 67 [facility] MckinneyBqkrgerQSBHJT6006-98-21 10:18:00 Test Item Value Reference Range Interpretation Comments LDL (Calculated) (test code = LDL 82 (Calculated)) [facility] MckinneyQqbxoutEEOGVZ2074-94-65 10:18:00 Test Item Value Reference Range Interpretation Comments CHD Risk (test code = CHD Risk) 2.23 3.90-5.80 [facility] MckinneyNegihpoPOJPAJ7642-52-40 10:18:00 Test Item Value Reference Range Interpretation Comments VLDL (test code = VLDL) 13 [facility] MckinneyCHEM MZURQ7379-77-35 10:18:00 Test Item Value Reference Range Interpretation Comments Lipase Lvl (test code = Lipase Lvl) [facility] [address] [facility]KlcoxyeCPARDVSGFPRS7730-68-53 10:18:00 Test Item Value Reference Range Interpretation Comments Sodium Lvl (test code = Sodium Lvl) 134 135-145 [facility] MichiganWanjesfWUKMIGJMALOM4252-43-92 10:18:00 Test Item Value Reference Range Interpretation Comments Potassium Lvl (test code = Potassium 3.5 3.5-5.1 Lvl) [facility] MichiganGfqvhvhCYLEOSNRNAOT4154-94-38 10:18:00 Test Item Value Reference Range Interpretation Comments Calcium Lvl (test code = Calcium Lvl) 7.8 8.5-10.5 [facility] MichiganSiluwioFYUTHKDPUKBF7141-87-64 10:18:00 Test Item Value Reference Range Interpretation Comments Chloride Lvl (test code = Chloride Lvl) 98 95-109 [facility] MichiganTowexnoRPOBZARUKTJA4604-62-27 10:18:00 Test Item Value Reference Range Interpretation Comments eGFR (test code = eGFR) 72 [facility] MichiganFmzxnamZQJVMEHCUIIA2955-12-60 10:18:00 Test Item Value Reference Range Interpretation Comments Globulin (test code = Globulin) 3.0 2.0-4.0 [facility] MichiganFoguesgVMOJPQWTKMPY4014-11-63 10:18:00 Test Item Value Reference Range Interpretation Comments A/G Ratio (test code = A/G Ratio) 1.0 0.7-1.6 [facility] MichiganYhawbtpWCLRPHROAWSE7324-86-16 10:18:00 Test Item Value Reference Range Interpretation Comments AST (test code = AST) 45 See_Comment [Auto mated message] The system which ge nerated this result transmit rafael reference range : <=37. The reference range was not used to interpr et this result as josi l/abnormal. [facility] MichiganFmrrlvbFYQWYQLINFCZ9742-49-99 10:18:00 Test Item Value Reference Range Interpretation Comments ALT (test code = ALT) 57 See_Comment [Auto mated message] The system which ge nerated this result transmit rafael reference range : <=65. The reference range was not used to interpr et this result as josi l/abnormal. [facility] MichiganPjuuvevLAZOVBETCPPQ0567-89-13 10:18:00 Test Item Value Reference Range Interpretation Comments Alk Phos (test code = Alk Phos) 49 39-136 [facility] MichiganXpicvleGKXKACCJKKSU1717-22-59 10:18:00 Test Item Value Reference Range Interpretation Comments Bili Total (test code = Bili Total) 0.7 0.2-1.3 [facility] MichiganBtuscetRIVLMFDJGZWK4495-35-28 10:18:00 Test Item Value Reference Range Interpretation Comments Glucose Lvl (test code = Glucose Lvl) 145 70-99 [facility] MichiganZknkyuhGAKEXUVBEHLA1172-11-10 10:18:00 Test Item Value Reference Range Interpretation Comments Creatinine Lvl (test code = Creatinine 0.9 0.5-1.4 Lvl) [facility] MichiganZknrsfoULCUGOTMXOKC9373-09-87 10:18:00 Test Item Value Reference Range Interpretation Comments BUN (test code = BUN) 12 - [facility] MichiganKslkyyjDJCOAPTHXFAN6235-15-44 10:18:00 Test Item Value Reference Range Interpretation Comments B/C Ratio (test code = B/C Ratio) 13 - [facility] MichiganQeabilwNHYGPKPBBGLJ2340-75-91 10:18:00 Test Item Value Reference Range Interpretation Comments CO2 (test code = CO2) 30 -32 [facility] MichiganXxbgmyzKRGSZCUULIBE2633-99-95 10:18:00 Test Item Value Reference Range Interpretation Comments Total Protein (test code = Total 6.1 6.4-8.4 Protein) [facility] MichiganSzxpvwoNHNRNUIATPVQ3087-83-42 10:18:00 Test Item Value Reference Range Interpretation Comments AGAP (test code = AGAP) 9.5 10.0-20.0 [facility] MichiganBkhxkzzRMPOEYKPRJPF5150-75-55 10:18:00 Test Item Value Reference Range Interpretation Comments Albumin Lvl (test code = Albumin Lvl) 3.1 3.5-5.0 [facility]2015-04-30 10:18:00 Test Item Value Reference Range Interpretation Comments Lipase Lvl (test code = Lipase Lvl) 660 73-393 [facility] MichiganMscnmesLJEGETVCHTFA0362-23-91 10:18:00 Test Item Value Reference Range Interpretation Comments Sodium Lvl (test code = Sodium Lvl) 134 135-145 [facility] MichiganQyinttgEFHYFWZRPNRE8162-27-66 10:18:00 Test Item Value Reference Range Interpretation Comments Potassium Lvl (test code = Potassium 3.5 3.5-5.1 Lvl) [facility] MichiganVgkavttWEPFCFVHVPJV2758-74-39 10:18:00 Test Item Value Reference Range Interpretation Comments Calcium Lvl (test code = Calcium Lvl) 7.8 8.5-10.5 [place] 311855-04-30 10:18:00 Test Item Value Reference Range Interpretation Comments Chloride Lvl (test code = Chloride Lvl) 98 95-109 [facility] MichiganFcubpzkUFIPVMNVJIUR4823-68-77 10:18:00 Test Item Value Reference Range Interpretation Comments eGFR (test code = eGFR) 72 [facility] MichiganVdfmmltSROSQJDHPFQF3003-63-38 10:18:00 Test Item Value Reference Range Interpretation Comments Globulin (test code = Globulin) 3.0 2.0-4.0 [facility] MichiganSwmlszkNTLONWPHIFJJ4993-80-78 10:18:00 Test Item Value Reference Range Interpretation Comments A/G Ratio (test code = A/G Ratio) 1.0 0.7-1.6 [facility] MichiganZbxjpfdDXTHEHSJEXVV2348-64-69 10:18:00 Test Item Value Reference Range Interpretation Comments AST (test code = AST) 45 See_Comment [Auto mated message] The system which ge nerated this result transmit rafael reference range : <=37. The reference range was not used to interpr et this result as josi l/abnormal. [facility] MichiganQnefpvyXTWAPGWDSRQC6899-52-14 10:18:00 Test Item Value Reference Range Interpretation Comments ALT (test code = ALT) 57 See_Comment [Auto mated message] The system which ge nerated this result transmit rafael reference range : <=65. The reference range was not used to interpr et this result as josi l/abnormal. [facility] MichiganJehyxluLPVTRSIKSDZQ5630-82-18 10:18:00 Test Item Value Reference Range Interpretation Comments Alk Phos (test code = Alk Phos) 49 39-136 [facility] MichiganZiimdsmSSLRLMHJSHEQ3009-64-35 10:18:00 Test Item Value Reference Range Interpretation Comments Bili Total (test code = Bili Total) 0.7 0.2-1.3 [facility] MichiganHfhhbobQDBLDRQZBKCE2352-32-44 10:18:00 Test Item Value Reference Range Interpretation Comments Glucose Lvl (test code = Glucose Lvl) 145 70-99 [facility] MichiganJoedhtyKBBYZWLDLTEE8487-42-18 10:18:00 Test Item Value Reference Range Interpretation Comments Creatinine Lvl (test code = Creatinine 0.9 0.5-1.4 Lvl) [facility] MichiganEzbdluuCFUEJLXJCSYL4256-83-29 10:18:00 Test Item Value Reference Range Interpretation Comments BUN (test code = BUN) 12 7- [facility] MichiganQflneqmUSEXQSHYKAWA4963-44-09 10:18:00 Test Item Value Reference Range Interpretation Comments B/C Ratio (test code = B/C Ratio) 13 6-25 [facility] MichiganGuwqrteNFKUQJYKLHFQ1880-64-18 10:18:00 Test Item Value Reference Range Interpretation Comments CO2 (test code = CO2) 30 -32 [facility] MichiganQiawdbjVPMIFLRIWHBN2346-94-37 10:18:00 Test Item Value Reference Range Interpretation Comments Total Protein (test code = Total 6.1 6.4-8.4 Protein) [facility] MichiganDgmxbjxKQSEENBREHFT8960-79-28 10:18:00 Test Item Value Reference Range Interpretation Comments AGAP (test code = AGAP) 9.5 10.0-20.0 [facility] MichiganXgawvjiDBPNFMKGZIBJ7863-07-43 10:18:00 Test Item Value Reference Range Interpretation Comments Albumin Lvl (test code = Albumin Lvl) 3.1 3.5-5.0 [facility] TempleAfmnzqbZSKGATNWTO0163-35-67 10:18:00 Test Item Value Reference Range Interpretation Comments Eosinophils # (test code 0.2 See_Comment [A utomated message] The = Eosinophils #) system whic h generated this result tra nsmitted reference range : <=0.5. The reference r genesis was not used to int erpret this result as normal/abnormal . [facility] TempleJegquhqNWPFOJSJJJ8348-82-56 10:18:00 Test Item Value Reference Range Interpretation Comments Macrocyte (test code = 2+ *ABN*(10/31/14 Macrocyte) 5:18 AM) [facility] TempleCqowldrYHZSDFOTWG4248-37-09 10:18:00 Test Item Value Reference Range Interpretation Comments Monocytes # (test code 0.5 See_Comment [Aut omated message] The = Monocytes #) system which generated this result tra nsmitted reference range : <=0.8. The reference r genesis was not used to int erpret this result as normal/abnormal . [facility] TempleJxuicdwZLPNYEWBCL9637-54-46 10:18:00 Test Item Value Reference Range Interpretation Comments Eosinophils (test code = 2.3 See_Comment [A utomated message] The Eosinophils) system which ge nerated this result tra nsmitted reference range : <=4.0. The reference r genesis was not used to int erpret this result as normal/abnormal . [facility] TempleHonihzeLSITRMANSE3851-06-35 10:18:00 Test Item Value Reference Range Interpretation Comments Lymphocytes # (test code = Lymphocytes 1.2 1.0-5.5 #) [facility] TempleOuplbdxLZWXEALAWU0397-86-32 10:18:00 Test Item Value Reference Range Interpretation Comments Basophils (test code = 0.3 See_Comment [Aut omated message] The Basophils) system which ge nerated this result tra nsmitted reference range : <=1.0. The reference r genesis was not used to int erpret this result as normal/abnormal . [facility] TempleNcexwraAZVCCQRNBP8702-56-84 10:18:00 Test Item Value Reference Range Interpretation Comments Segs-Bands # (test code = Segs-Bands #) 6.1 1.5-8.1 [facility] TempleFprppxlCOGQBWZFRK6787-71-61 10:18:00 Test Item Value Reference Range Interpretation Comments Monocytes (test code = Monocytes) 6.1 2.0-12.0 [facility] TempleNhkvilaIMXCWJRIRG3486-33-94 10:18:00 Test Item Value Reference Range Interpretation Comments Lymphocytes (test code = Lymphocytes) 15.1 20.0-40.0 [facility] TempleWmrpzizPIJUQFWSDI5814-29-05 10:18:00 Test Item Value Reference Range Interpretation Comments Segs (test code = Segs) 76.2 45.0-75.0 [facility] TempleOvdrdgoMLHWZXDUNU7299-95-86 10:18:00 Test Item Value Reference Range Interpretation Comments MCHC (test code = MCHC) 33.9 32.0-36.0 [facility] TempleHrscmamVVGJHCZFWK7696-34-20 10:18:00 Test Item Value Reference Range Interpretation Comments MCV (test code = MCV) 104.7 80.0-98.0 [facility] TempleHkhqpmrBTCGZUNONN1998-49-47 10:18:00 Test Item Value Reference Range Interpretation Comments Hct (test code = Hct) 35.5 36.0-48.0 [facility] TempleUqtsxyyESAZTDYXLV0419-28-25 10:18:00 Test Item Value Reference Range Interpretation Comments Hgb (test code = Hgb) 12.0 12.0-16.0 [facility] TempleKnqjwbqPAEBGDJTNK9742-06-54 10:18:00 Test Item Value Reference Range Interpretation Comments WBC (test code = WBC) 8.0 3.7-10.4 [facility] TempleRndsshrFXBLTWUKVQ3320-78-02 10:18:00 Test Item Value Reference Range Interpretation Comments RBC (test code = RBC) 3.39 4.20-5.40 [facility] TempleJisavycGTHHJCJMFH6077-77-00 10:18:00 Test Item Value Reference Range Interpretation Comments Platelet (test code = Platelet) 128 133-450 [facility] TempleQpwroreEVKSJKHJNJ7883-17-47 10:18:00 Test Item Value Reference Range Interpretation Comments MPV (test code = MPV) 9.5 7.4-10.4 [facility] TempleEhhvulkVFWIGIMFEY2449-16-01 10:18:00 Test Item Value Reference Range Interpretation Comments RDW (test code = RDW) 12.7 11.5-14.5 [facility] TempleUytvbxaVXSUOMZIWE3207-70-94 10:18:00 Test Item Value Reference Range Interpretation Comments MCH (test code = MCH) 35.5 pg 27.0-31.0 [facility] CenterGwsqntxKKLOTZ5351-83-73 10:18:00 Test Item Value Reference Range Interpretation Comments HDL (test code = HDL) 77 [facility] CenterIvgsdsvBLQSHT1971-57-44 10:18:00 Test Item Value Reference Range Interpretation Comments Chol (test code = Chol) 172 [facility] CenterZedlpfjBHGUUT0902-64-11 10:18:00 Test Item Value Reference Range Interpretation Comments Trig (test code = Trig) 67 [facility] CenterUdlzszzJGWLYJ2598-21-39 10:18:00 Test Item Value Reference Range Interpretation Comments LDL (Calculated) (test code = LDL 82 (Calculated)) [facility] CenterEsskhiaZXHNXB0032-39-87 10:18:00 Test Item Value Reference Range Interpretation Comments CHD Risk (test code = CHD Risk) 2.23 3.90-5.80 [facility] CenterLxwegcbOMDKTJ1093-73-46 10:18:00 Test Item Value Reference Range Interpretation Comments VLDL (test code = VLDL) 13 [facility] TempleFcxzzfjHRXTAKULKV7729-16-96 10:18:00 Test Item Value Reference Range Interpretation Comments Eosinophils # (test code 0.2 See_Comment [A utomated message] The = Eosinophils #) system whic h generated this result tra nsmitted reference range : <=0.5. The reference r genesis was not used to int erpret this result as normal/abnormal . [facility] TempleVwzhzwqUSXPQTMZKD1467-84-34 10:18:00 Test Item Value Reference Range Interpretation Comments Macrocyte (test code = 2+ *ABN*(10/31/14 Macrocyte) 5:18 AM) [facility] TempleEvnmdlmVSRKVITHWG8299-02-43 10:18:00 Test Item Value Reference Range Interpretation Comments Monocytes # (test code 0.5 See_Comment [Aut omated message] The = Monocytes #) system which generated this result tra nsmitted reference range : <=0.8. The reference r genesis was not used to int erpret this result as normal/abnormal . [facility] TempleDodrsikVXVMYEVNJG5257-03-72 10:18:00 Test Item Value Reference Range Interpretation Comments Eosinophils (test code = 2.3 See_Comment [A utomated message] The Eosinophils) system which ge nerated this result tra nsmitted reference range : <=4.0. The reference r genesis was not used to int erpret this result as normal/abnormal . [facility] TempleIakyslpEPZHMWKIWL7687-68-22 10:18:00 Test Item Value Reference Range Interpretation Comments Lymphocytes # (test code = Lymphocytes 1.2 1.0-5.5 #) [facility] TempleZwkxeqiRZXTQTJXIR2169-99-07 10:18:00 Test Item Value Reference Range Interpretation Comments Basophils (test code = 0.3 See_Comment [Aut omated message] The Basophils) system which ge nerated this result tra nsmitted reference range : <=1.0. The reference r genesis was not used to int erpret this result as normal/abnormal . [facility] TempleYayciseDSXDEZRQKU5121-47-68 10:18:00 Test Item Value Reference Range Interpretation Comments Segs-Bands # (test code = Segs-Bands #) 6.1 1.5-8.1 [facility] TempleEizxryxFADPEPHBLC9441-96-84 10:18:00 Test Item Value Reference Range Interpretation Comments Monocytes (test code = Monocytes) 6.1 2.0-12.0 [facility] TempleDvuildxTXIGKVXRPC3225-21-63 10:18:00 Test Item Value Reference Range Interpretation Comments Lymphocytes (test code = Lymphocytes) 15.1 20.0-40.0 [facility] TempleEfljtpoNGXYGJFHQX0185-81-62 10:18:00 Test Item Value Reference Range Interpretation Comments Segs (test code = Segs) 76.2 45.0-75.0 [facility] TempleCnstxqtJIKMVTPXLA7628-07-64 10:18:00 Test Item Value Reference Range Interpretation Comments MCHC (test code = MCHC) 33.9 32.0-36.0 [facility] TempleJgdsdyuTRPOAIGSLX7458-47-61 10:18:00 Test Item Value Reference Range Interpretation Comments MCV (test code = MCV) 104.7 80.0-98.0 [facility] TempleYzhyvzbADNLDPGNJR9521-06-88 10:18:00 Test Item Value Reference Range Interpretation Comments Hct (test code = Hct) 35.5 36.0-48.0 [facility] TempleDzaukjpITLPCVCVGE6358-48-00 10:18:00 Test Item Value Reference Range Interpretation Comments Hgb (test code = Hgb) 12.0 12.0-16.0 [facility] TemplePlpgfdeHEUWLJDCSL8579-90-90 10:18:00 Test Item Value Reference Range Interpretation Comments WBC (test code = WBC) 8.0 3.7-10.4 [facility] TempleDvgaaxkGGVFSCNMCI6601-83-56 10:18:00 Test Item Value Reference Range Interpretation Comments RBC (test code = RBC) 3.39 4.20-5.40 [facility] TempleFtifkaxSBEONXYEHH6176-66-69 10:18:00 Test Item Value Reference Range Interpretation Comments Platelet (test code = Platelet) 128 133-450 [facility] TempleAjcawsaAGIIFMMUAK3250-10-68 10:18:00 Test Item Value Reference Range Interpretation Comments MPV (test code = MPV) 9.5 7.4-10.4 [facility] TempleGhsnlxxDUDIEDQPIV0348-94-62 10:18:00 Test Item Value Reference Range Interpretation Comments RDW (test code = RDW) 12.7 11.5-14.5 [facility] TempleBnndxvlYHMWFYZDNP3513-76-79 10:18:00 Test Item Value Reference Range Interpretation Comments MCH (test code = MCH) 35.5 pg 27.0-31.0 [facility] CenterUgozwwdPVHBNC1844-71-74 10:18:00 Test Item Value Reference Range Interpretation Comments HDL (test code = HDL) 77 [facility] CenterNjuiycvANEUPC1310-84-32 10:18:00 Test Item Value Reference Range Interpretation Comments Chol (test code = Chol) 172 [facility] CenterMlvuhtyRWBUGF3097-31-86 10:18:00 Test Item Value Reference Range Interpretation Comments Trig (test code = Trig) 67 [facility] CenterLuhxkixJTNGQL5610-88-20 10:18:00 Test Item Value Reference Range Interpretation Comments LDL (Calculated) (test code = LDL 82 (Calculated)) [facility]WamhhnyGKOOPP6624-77-09 10:18:00 Test Item Value Reference Range Interpretation Comments CHD Risk (test code = CHD Risk) 2.23 3.90-5.80 [facility]inneyBbvumzxFFSGKM4892-05-85 10:18:00 Test Item Value Reference Range Interpretation Comments VLDL (test code = VLDL) 13 [facility]neyCHEM OEZEJ3864-17-44 10:18:00 Test Item Value Reference Range Interpretation Comments Lipase Lvl (test code = Lipase Lvl) 660 73-393 [facility] MichiganDkekvisRTHATVZLFARZ7651-84-99 10:18:00 Test Item Value Reference Range Interpretation Comments Sodium Lvl (test code = Sodium Lvl) 134 135-145 [facility] MichiganLukykgaOWHUCXGPQTPO5490-71-12 10:18:00 Test Item Value Reference Range Interpretation Comments Potassium Lvl (test code = Potassium 3.5 3.5-5.1 Lvl) [facility] MichiganXnntzuaIOTYKLACAYPE8933-20-81 10:18:00 Test Item Value Reference Range Interpretation Comments Calcium Lvl (test code = Calcium Lvl) 7.8 8.5-10.5 [facility] MichiganPkbxuwnMHAVBYOPJCDD9226-36-07 10:18:00 Test Item Value Reference Range Interpretation Comments Chloride Lvl (test code = Chloride Lvl) 98 95-109 [facility] MichiganUelemwiDURKOKHAKGIH1755-12-28 10:18:00 Test Item Value Reference Range Interpretation Comments eGFR (test code = eGFR) 72 [facility] MichiganGspwupsGYPJSARSEPTF5736-38-08 10:18:00 Test Item Value Reference Range Interpretation Comments Globulin (test code = Globulin) 3.0 2.0-4.0 [facility] MichiganHdnnnafJUCNAQSCRCJJ9934-28-13 10:18:00 Test Item Value Reference Range Interpretation Comments A/G Ratio (test code = A/G Ratio) 1.0 0.7-1.6 [facility] MichiganJwqcfpdKESXBTNGCGDS6330-67-91 10:18:00 Test Item Value Reference Range Interpretation Comments AST (test code = AST) 45 See_Comment [Auto mated message] The system which ge nerated this result transmit rafael reference range : <=37. The reference range was not used to interpr et this result as josi l/abnormal. [facility] MichiganKgoccftTNUYYSEZELYV1798-94-16 10:18:00 Test Item Value Reference Range Interpretation Comments ALT (test code = ALT) 57 See_Comment [Auto mated message] The system which ge nerated this result transmit rafael reference range : <=65. The reference range was not used to interpr et this result as josi l/abnormal. [facility] MichiganExhvyylCOZBQAKWMDHO7300-22-47 10:18:00 Test Item Value Reference Range Interpretation Comments Alk Phos (test code = Alk Phos) 49 39-136 [facility] MichiganBcarkftZMZNCIBRHATC3890-07-35 10:18:00 Test Item Value Reference Range Interpretation Comments Bili Total (test code = Bili Total) 0.7 0.2-1.3 [facility] MichiganFemjlzjAIFSTELRSVXG6104-94-27 10:18:00 Test Item Value Reference Range Interpretation Comments Glucose Lvl (test code = Glucose Lvl) 145 70-99 [facility] MichiganYykymsnPULTRGEBPTNS5711-00-51 10:18:00 Test Item Value Reference Range Interpretation Comments Creatinine Lvl (test code = Creatinine 0.9 0.5-1.4 Lvl) [facility] MichiganDndevuyJHGITIKPQSCI0800-42-14 10:18:00 Test Item Value Reference Range Interpretation Comments BUN (test code = BUN) 12 7-22 [facility] MichiganGqxmftwXOKGKLDUTYQJ1985-04-18 10:18:00 Test Item Value Reference Range Interpretation Comments B/C Ratio (test code = B/C Ratio) 13 6-25 [facility] MichiganDgsdroaRCTWZUJEVEQO5348-83-16 10:18:00 Test Item Value Reference Range Interpretation Comments CO2 (test code = CO2) 30 24-32 [facility] MichiganRtjzmwaEVYYNNKGRQRD2724-84-10 10:18:00 Test Item Value Reference Range Interpretation Comments Total Protein (test code = Total 6.1 6.4-8.4 Protein) [facility] MichiganIspmqhyXFEMAYHUJHMS0687-93-30 10:18:00 Test Item Value Reference Range Interpretation Comments AGAP (test code = AGAP) 9.5 10.0-20.0 [facility] MichiganGzeacmdNROSWSPTXZFT8474-11-64 10:18:00 Test Item Value Reference Range Interpretation Comments Albumin Lvl (test code = Albumin Lvl) 3.1 3.5-5.0 [facility] TempleBxuukcdJOKBIXETLA6436-77-78 10:18:00 Test Item Value Reference Range Interpretation Comments Eosinophils # (test code 0.2 See_Comment [A utomated message] The = Eosinophils #) system whic h generated this result tra nsmitted reference range : <=0.5. The reference r genesis was not used to int erpret this result as normal/abnormal . [facility] TempleAytoozcPZZZTEUUEO2561-37-34 10:18:00 Test Item Value Reference Range Interpretation Comments Macrocyte (test code = 2+ *ABN*(10/31/14 Macrocyte) 5:18 AM) [facility] TempleJffalmwHUUQKUYEOO4634-59-90 10:18:00 Test Item Value Reference Range Interpretation Comments Monocytes # (test code 0.5 See_Comment [Aut omated message] The = Monocytes #) system which generated this result tra nsmitted reference range : <=0.8. The reference r genesis was not used to int erpret this result as normal/abnormal . [facility] TempleCkyafawBALYHRSTXI2141-35-16 10:18:00 Test Item Value Reference Range Interpretation Comments Eosinophils (test code = 2.3 See_Comment [A utomated message] The Eosinophils) system which ge nerated this result tra nsmitted reference range : <=4.0. The reference r genesis was not used to int erpret this result as normal/abnormal . [facility] TempleDvewowkYDNVDVNDIZ1636-50-29 10:18:00 Test Item Value Reference Range Interpretation Comments Lymphocytes # (test code = Lymphocytes 1.2 1.0-5.5 #) [facility] TempleGznkxtqHQSQLPIIPH9813-99-35 10:18:00 Test Item Value Reference Range Interpretation Comments Basophils (test code = 0.3 See_Comment [Aut omated message] The Basophils) system which ge nerated this result tra nsmitted reference range : <=1.0. The reference r genesis was not used to int erpret this result as normal/abnormal . [facility] TempleGyybvrhROINXIWKWG2726-14-45 10:18:00 Test Item Value Reference Range Interpretation Comments Segs-Bands # (test code = Segs-Bands #) 6.1 1.5-8.1 [facility] TempleEogdnybAWTUKTQWCY4609-08-71 10:18:00 Test Item Value Reference Range Interpretation Comments Monocytes (test code = Monocytes) 6.1 2.0-12.0 [facility] TempleNrlxkfeDCKDDFCXUD8049-83-48 10:18:00 Test Item Value Reference Range Interpretation Comments Lymphocytes (test code = Lymphocytes) 15.1 20.0-40.0 [facility] TempleFwijgroIKOZFQHESA5769-31-87 10:18:00 Test Item Value Reference Range Interpretation Comments Segs (test code = Segs) 76.2 45.0-75.0 [facility] TempleKafabmgFJAOFQODDE5779-30-52 10:18:00 Test Item Value Reference Range Interpretation Comments MCHC (test code = MCHC) 33.9 32.0-36.0 [facility] TempleLxrxpfrSSSPVYXCCS4253-60-91 10:18:00 Test Item Value Reference Range Interpretation Comments MCV (test code = MCV) 104.7 80.0-98.0 [facility] TempleCiruqgqUWGMAVXSOD0213-75-09 10:18:00 Test Item Value Reference Range Interpretation Comments Hct (test code = Hct) 35.5 36.0-48.0 [facility] TempleAnksfxeKEZGSJPVLW6008-61-23 10:18:00 Test Item Value Reference Range Interpretation Comments Hgb (test code = Hgb) 12.0 12.0-16.0 [facility] TempleVjjneabNXNZYGGZYT7631-92-07 10:18:00 Test Item Value Reference Range Interpretation Comments WBC (test code = WBC) 8.0 3.7-10.4 [facility] TempleBslvprjLUSFFHDTHV9447-74-85 10:18:00 Test Item Value Reference Range Interpretation Comments RBC (test code = RBC) 3.39 4.20-5.40 [facility] TempleOdaxmpsVGWSLPSJFT6117-92-08 10:18:00 Test Item Value Reference Range Interpretation Comments Platelet (test code = Platelet) 128 133-450 [facility] TempleNlvabrkNRINTMVPUH2432-55-43 10:18:00 Test Item Value Reference Range Interpretation Comments MPV (test code = MPV) 9.5 7.4-10.4 [facility] TempleIubaycvRLWALLZIMY3501-43-43 10:18:00 Test Item Value Reference Range Interpretation Comments RDW (test code = RDW) 12.7 11.5-14.5 [facility] TempleWjnetedWBNYFPOHRZ0929-57-89 10:18:00 Test Item Value Reference Range Interpretation Comments MCH (test code = MCH) 35.5 pg 27.0-31.0 [facility] CenterAzvvlgwZGIMVB9427-22-84 10:18:00 Test Item Value Reference Range Interpretation Comments HDL (test code = HDL) 77 [facility]ckinneyBkggqnwJFWXRU4129-03-68 10:18:00 Test Item Value Reference Range Interpretation Comments Chol (test code = Chol) 172 [facility]inneyPwixpovNKMIWL0379-68-41 10:18:00 Test Item Value Reference Range Interpretation Comments Trig (test code = Trig) 67 [facility]inneyGvyjtnzTLVUMZ5060-14-89 10:18:00 Test Item Value Reference Range Interpretation Comments LDL (Calculated) (test code = LDL 82 (Calculated)) [facility] MckinneyZpmplbtMQPHDU8500-31-74 10:18:00 Test Item Value Reference Range Interpretation Comments CHD Risk (test code = CHD Risk) 2.23 3.90-5.80 [facility]inneyTeqjksbIBNHXC5750-42-52 10:18:00 Test Item Value Reference Range Interpretation Comments VLDL (test code = VLDL) 13 [facility]inneyCHEM EQADM4571-82-65 10:18:00 Test Item Value Reference Range Interpretation Comments Lipase Lvl (test code = Lipase Lvl) 660 73-393 [facility] MichiganJpcjnjsDQFEWMBINPOV1441-93-30 10:18:00 Test Item Value Reference Range Interpretation Comments Sodium Lvl (test code = Sodium Lvl) 134 135-145 [facility] MichiganCdqwghrNUCOCEUUONUF0369-49-83 10:18:00 Test Item Value Reference Range Interpretation Comments Potassium Lvl (test code = Potassium 3.5 3.5-5.1 Lvl) [facility] MichiganNkondorAACYKZFRECBO4323-07-96 10:18:00 Test Item Value Reference Range Interpretation Comments Calcium Lvl (test code = Calcium Lvl) 7.8 8.5-10.5 [facility] MichiganIiilfgyLXIJROYKCHAE1198-46-64 10:18:00 Test Item Value Reference Range Interpretation Comments Chloride Lvl (test code = Chloride Lvl) 98 95-109 [facility] MichiganEvjiireCZICCDNPFHBY9258-38-01 10:18:00 Test Item Value Reference Range Interpretation Comments eGFR (test code = eGFR) 72 [facility] MichiganWgadzbpQGLXADCYYJMV1973-34-05 10:18:00 Test Item Value Reference Range Interpretation Comments Globulin (test code = Globulin) 3.0 2.0-4.0 [facility] MichiganBcdrgcwTNFGFZQWZDVR6350-37-75 10:18:00 Test Item Value Reference Range Interpretation Comments A/G Ratio (test code = A/G Ratio) 1.0 0.7-1.6 [facility] MichiganFsnwyedNAMOLSJLTUQI2764-31-23 10:18:00 Test Item Value Reference Range Interpretation Comments AST (test code = AST) 45 See_Comment [Auto mated message] The system which ge nerated this result transmit rafael reference range : <=37. The reference range was not used to interpr et this result as josi l/abnormal. [facility] MichiganZqxobpmHZNYZTKPHSMH0734-97-48 10:18:00 Test Item Value Reference Range Interpretation Comments ALT (test code = ALT) 57 See_Comment [Auto mated message] The system which ge nerated this result transmit rafael reference range : <=65. The reference range was not used to interpr et this result as josi l/abnormal. [facility] MichiganHkwfvzgGMKKTQIEGDEI9029-91-33 10:18:00 Test Item Value Reference Range Interpretation Comments Alk Phos (test code = Alk Phos) 49 39-136 [facility] MichiganFzsohxkZIVVEUJBUMUF1147-15-51 10:18:00 Test Item Value Reference Range Interpretation Comments Bili Total (test code = Bili Total) 0.7 0.2-1.3 [facility] MichiganPlaixpqUPUFZFYVZXFN1397-61-82 10:18:00 Test Item Value Reference Range Interpretation Comments Glucose Lvl (test code = Glucose Lvl) 145 70-99 [facility] MichiganJiiybiiKULBLAJZZDCB5309-79-55 10:18:00 Test Item Value Reference Range Interpretation Comments Creatinine Lvl (test code = Creatinine 0.9 0.5-1.4 Lvl) [facility] MichiganYqfdtcpGDJIULPGTEJM4178-67-99 10:18:00 Test Item Value Reference Range Interpretation Comments BUN (test code = BUN) 12 7-22 [facility] MichiganTefmslaAVOWAGIARCRC7767-41-10 10:18:00 Test Item Value Reference Range Interpretation Comments B/C Ratio (test code = B/C Ratio) 13 6-25 [facility] MichiganHhefskcNQOXXXPRWECS9546-56-08 10:18:00 Test Item Value Reference Range Interpretation Comments CO2 (test code = CO2) 30 24-32 [facility] MichiganIadxgucJOFYDEEOALSQ0021-06-16 10:18:00 Test Item Value Reference Range Interpretation Comments Total Protein (test code = Total 6.1 6.4-8.4 Protein) [facility] MichiganFgxehxvWYZUCQCGEUGR3704-48-65 10:18:00 Test Item Value Reference Range Interpretation Comments AGAP (test code = AGAP) 9.5 10.0-20.0 [facility]qairVJBQTMLEZDSN3372-35-12 10:18:00 Test Item Value Reference Range Interpretation Comments Albumin Lvl (test code = Albumin Lvl) 3.1 3.5-5.0 [facility] TempleZcxfzvfOIXBAYBZZB2621-13-68 10:18:00 Test Item Value Reference Range Interpretation Comments Eosinophils # (test code 0.2 See_Comment [A utomated message] The = Eosinophils #) system wh h generated this result tra nsmitted reference range : <=0.5. The reference r genesis was not used to int erpret this result as normal/abnormal . [facility] TempleEikattfWURGWQFLXH0657-43-63 10:18:00 Test Item Value Reference Range Interpretation Comments Macrocyte (test code = 2+ *ABN*(10/31/14 Macrocyte) 5:18 AM) [facility] TempleDgnnxjjBDJMYGTTMU5028-73-30 10:18:00 Test Item Value Reference Range Interpretation Comments Monocytes # (test code 0.5 See_Comment [Aut omated message] The = Monocytes #) system which generated this result tra nsmitted reference range : <=0.8. The reference r genesis was not used to int erpret this result as normal/abnormal . [facility] TempleLjdpqyoGYOPTFMLMT2641-40-17 10:18:00 Test Item Value Reference Range Interpretation Comments Eosinophils (test code = 2.3 See_Comment [A utomated message] The Eosinophils) system which ge nerated this result tra nsmitted reference range : <=4.0. The reference r genesis was not used to int erpret this result as normal/abnormal . [facility] TemplePwputytTRCRORAPVU6749-76-90 10:18:00 Test Item Value Reference Range Interpretation Comments Lymphocytes # (test code = Lymphocytes 1.2 1.0-5.5 #) [facility] TempleOvsqrtkYIKRLZBCWD0039-90-08 10:18:00 Test Item Value Reference Range Interpretation Comments Basophils (test code = 0.3 See_Comment [Aut omated message] The Basophils) system which ge nerated this result tra nsmitted reference range : <=1.0. The reference r genesis was not used to int erpret this result as normal/abnormal . [facility] TempleNfjcxalRDEVQDLQXD2300-24-99 10:18:00 Test Item Value Reference Range Interpretation Comments Segs-Bands # (test code = Segs-Bands #) 6.1 1.5-8.1 [facility] TempleZadyiopDBLJZWYVMS2657-75-68 10:18:00 Test Item Value Reference Range Interpretation Comments Monocytes (test code = Monocytes) 6.1 2.0-12.0 [facility] TempleUzykhcyWRFAMLFZYS0824-95-87 10:18:00 Test Item Value Reference Range Interpretation Comments Lymphocytes (test code = Lymphocytes) 15.1 20.0-40.0 [facility] TempleSwilwvxFCDXIATKWI7790-94-99 10:18:00 Test Item Value Reference Range Interpretation Comments Segs (test code = Segs) 76.2 45.0-75.0 [facility] TempleJmicfcxVOMMEWHUEM1822-24-48 10:18:00 Test Item Value Reference Range Interpretation Comments MCHC (test code = MCHC) 33.9 32.0-36.0 [facility] TempleZltcyhvLBLPPURKJP8303-00-01 10:18:00 Test Item Value Reference Range Interpretation Comments MCV (test code = MCV) 104.7 80.0-98.0 [facility] TempleUlfmokzPZXNHXEGMD2166-88-54 10:18:00 Test Item Value Reference Range Interpretation Comments Hct (test code = Hct) 35.5 36.0-48.0 [facility] TempleLkpdlzxUGAUKBNKKN5357-27-37 10:18:00 Test Item Value Reference Range Interpretation Comments Hgb (test code = Hgb) 12.0 12.0-16.0 [facility] TempleMeujtiyMXXYNDWJHB5812-42-71 10:18:00 Test Item Value Reference Range Interpretation Comments WBC (test code = WBC) 8.0 3.7-10.4 [facility] TempleOyuvlafDSECFNVAQR6805-75-45 10:18:00 Test Item Value Reference Range Interpretation Comments RBC (test code = RBC) 3.39 4.20-5.40 [facility] TempleKdghmncOJGFJBTPUZ7087-98-68 10:18:00 Test Item Value Reference Range Interpretation Comments Platelet (test code = Platelet) 128 133-450 [facility] TempleDsfxanpWVYCWZZRUI9231-21-74 10:18:00 Test Item Value Reference Range Interpretation Comments MPV (test code = MPV) 9.5 7.4-10.4 [facility] TempleEgmagwyZBFEJLHLTU0084-18-78 10:18:00 Test Item Value Reference Range Interpretation Comments RDW (test code = RDW) 12.7 11.5-14.5 [facility] MckinneyVaojsieARODUHANJS8097-05-58 10:18:00 Test Item Value Reference Range Interpretation Comments MCH (test code = MCH) 35.5 pg 27.0-31.0 [facility]ckinneyEpwieuuVPQKYE5782-48-80 10:18:00 Test Item Value Reference Range Interpretation Comments HDL (test code = HDL) 77 [facility]inneyOpuoccjXVHEPG0532-14-29 10:18:00 Test Item Value Reference Range Interpretation Comments Chol (test code = Chol) 172 [facility] MckinneyQfqbydwYGSFSV3828-23-15 10:18:00 Test Item Value Reference Range Interpretation Comments Trig (test code = Trig) 67 [facility] CenterPgyxftlWOYDFV7076-62-94 10:18:00 Test Item Value Reference Range Interpretation Comments LDL (Calculated) (test code = LDL 82 (Calculated)) [facility] CenterYroruqxNYVSMW3573-05-66 10:18:00 Test Item Value Reference Range Interpretation Comments CHD Risk (test code = CHD Risk) 2.23 3.90-5.80 [facility] MckinneyUknczkeZJTCIS1618-35-69 10:18:00 Test Item Value Reference Range Interpretation Comments VLDL (test code = VLDL) 13 [facility]neyCHEM SBTVQ2223-80-96 10:18:00 Test Item Value Reference Range Interpretation Comments Lipase Lvl (test code = Lipase Lvl) 660 73-393 [facility] MichiganOimrtuoZOOSSPWJHTQE2219-46-52 10:18:00 Test Item Value Reference Range Interpretation Comments Sodium Lvl (test code = Sodium Lvl) 134 135-145 [facility] MichiganBffkkhwNIYFFDEZFBZE5398-56-44 10:18:00 Test Item Value Reference Range Interpretation Comments Potassium Lvl (test code = Potassium 3.5 3.5-5.1 Lvl) [facility] MichiganOhdzdmyCMPSVKCXLBCR7346-93-68 10:18:00 Test Item Value Reference Range Interpretation Comments Calcium Lvl (test code = Calcium Lvl) 7.8 8.5-10.5 [facility] MichiganEnyhviuZEYWWTRRMWEZ4135-38-16 10:18:00 Test Item Value Reference Range Interpretation Comments Chloride Lvl (test code = Chloride Lvl) 98 95-109 [facility] MichiganPoaezyoGNGQEUEXTINA4485-57-27 10:18:00 Test Item Value Reference Range Interpretation Comments eGFR (test code = eGFR) 72 [facility] MichiganAvyzauwGKTIIHVKBEKH3834-69-24 10:18:00 Test Item Value Reference Range Interpretation Comments Globulin (test code = Globulin) 3.0 2.0-4.0 [facility] MichiganEnsvaydMXRJFZZHXVFV0860-04-92 10:18:00 Test Item Value Reference Range Interpretation Comments A/G Ratio (test code = A/G Ratio) 1.0 0.7-1.6 [facility] MichiganVczwawlWYYAUFCLNNKP6459-84-81 10:18:00 Test Item Value Reference Range Interpretation Comments AST (test code = AST) 45 See_Comment [Auto mated message] The system which ge nerated this result transmit rafael reference range : <=37. The reference range was not used to interpr et this result as josi l/abnormal. [facility] MichiganBxugosiPNVSXXXNSZJZ4140-37-17 10:18:00 Test Item Value Reference Range Interpretation Comments ALT (test code = ALT) 57 See_Comment [Auto mated message] The system which ge nerated this result transmit rafael reference range : <=65. The reference range was not used to interpr et this result as josi l/abnormal. [facility] MichiganSxfnccnRZTPNCJRFADW7425-30-27 10:18:00 Test Item Value Reference Range Interpretation Comments Alk Phos (test code = Alk Phos) 49 39-136 [facility] MichiganRdqtgvwSOOPNILOLKOK8979-04-67 10:18:00 Test Item Value Reference Range Interpretation Comments Bili Total (test code = Bili Total) 0.7 0.2-1.3 [facility] MichiganMzbtjqxEKALKIZUDHIV1135-50-75 10:18:00 Test Item Value Reference Range Interpretation Comments Glucose Lvl (test code = Glucose Lvl) 145 70-99 [facility] MichiganSxxyduxGTZDRUQAZITE4832-97-68 10:18:00 Test Item Value Reference Range Interpretation Comments Creatinine Lvl (test code = Creatinine 0.9 0.5-1.4 Lvl) [facility] MichiganHilhoejSFELHIUXSGQN4010-04-74 10:18:00 Test Item Value Reference Range Interpretation Comments BUN (test code = BUN) 12 7- [facility] MichiganVrfmrxgGSFAVHWQPIYS7842-31-49 10:18:00 Test Item Value Reference Range Interpretation Comments B/C Ratio (test code = B/C Ratio) 13 6- [facility] MichiganInfknuuSVWWNBTZZLPO5885-74-17 10:18:00 Test Item Value Reference Range Interpretation Comments CO2 (test code = CO2) 30 24-32 [facility] MichiganGfkdrntHCAESCUGQAIZ8898-88-52 10:18:00 Test Item Value Reference Range Interpretation Comments Total Protein (test code = Total 6.1 6.4-8.4 Protein) [facility] MichiganKykgymdFPKJOMWFEEGS5613-94-48 10:18:00 Test Item Value Reference Range Interpretation Comments AGAP (test code = AGAP) 9.5 10.0-20.0 [facility] MichiganUbqjwvySEVIUGJUYQBB3027-97-62 10:18:00 Test Item Value Reference Range Interpretation Comments Albumin Lvl (test code = Albumin Lvl) 3.1 3.5-5.0 [facility] TempleIpjnhbiURQFYIYQHF9390-29-25 10:18:00 Test Item Value Reference Range Interpretation Comments Eosinophils # (test code 0.2 See_Comment [A utomated message] The = Eosinophils #) system whic h generated this result tra nsmitted reference range : <=0.5. The reference r genesis was not used to int erpret this result as normal/abnormal . [facility] TempleAumexnhTPGJGXCTYC7797-32-67 10:18:00 Test Item Value Reference Range Interpretation Comments Macrocyte (test code = 2+ *ABN*(10/31/14 Macrocyte) 5:18 AM) [facility] TempleRtkvivnRUWWOFUSQY9594-55-14 10:18:00 Test Item Value Reference Range Interpretation Comments Monocytes # (test code 0.5 See_Comment [Aut omated message] The = Monocytes #) system which generated this result tra nsmitted reference range : <=0.8. The reference r genesis was not used to int erpret this result as normal/abnormal . [facility] TempleTurtxjyHGNINKUSER9465-06-20 10:18:00 Test Item Value Reference Range Interpretation Comments Eosinophils (test code = 2.3 See_Comment [A utomated message] The Eosinophils) system which ge nerated this result tra nsmitted reference range : <=4.0. The reference r genesis was not used to int erpret this result as normal/abnormal . [facility] TempleDrymqbqUUVZVOHXSH2832-30-17 10:18:00 Test Item Value Reference Range Interpretation Comments Lymphocytes # (test code = Lymphocytes 1.2 1.0-5.5 #) [facility] TempleExfpzxvYGHFFLTMTG2393-16-07 10:18:00 Test Item Value Reference Range Interpretation Comments Basophils (test code = 0.3 See_Comment [Aut omated message] The Basophils) system which ge nerated this result tra nsmitted reference range : <=1.0. The reference r genesis was not used to int erpret this result as normal/abnormal . [facility] TempleVmptdtmESYGJMGWLG8691-05-16 10:18:00 Test Item Value Reference Range Interpretation Comments Segs-Bands # (test code = Segs-Bands #) 6.1 1.5-8.1 [facility] TempleAzbgnqmDFCMSCOBUY2605-28-38 10:18:00 Test Item Value Reference Range Interpretation Comments Monocytes (test code = Monocytes) 6.1 2.0-12.0 [facility] TempleXmwqeesGSXZWFRCEY4149-00-50 10:18:00 Test Item Value Reference Range Interpretation Comments Lymphocytes (test code = Lymphocytes) 15.1 20.0-40.0 [facility] TempleViwrfjrXSGDFWPRAW1088-05-01 10:18:00 Test Item Value Reference Range Interpretation Comments Segs (test code = Segs) 76.2 45.0-75.0 [facility] TempleWlmmnxlUMXJBHOJLZ0665-59-27 10:18:00 Test Item Value Reference Range Interpretation Comments MCHC (test code = MCHC) 33.9 32.0-36.0 [facility] TempleEzwdurfZEIEAMOKBO8041-22-85 10:18:00 Test Item Value Reference Range Interpretation Comments MCV (test code = MCV) 104.7 80.0-98.0 [facility] TempleRfyoefxKGWQSXOEBN9836-77-59 10:18:00 Test Item Value Reference Range Interpretation Comments Hct (test code = Hct) 35.5 36.0-48.0 [facility] TempleRxtpjwoGEQCMRWZPY4873-03-63 10:18:00 Test Item Value Reference Range Interpretation Comments Hgb (test code = Hgb) 12.0 12.0-16.0 [facility] TempleNiocabgPPVPWETBYP2583-05-52 10:18:00 Test Item Value Reference Range Interpretation Comments WBC (test code = WBC) 8.0 3.7-10.4 [facility] TempleEvmyxjiWQZUADFURV8746-66-41 10:18:00 Test Item Value Reference Range Interpretation Comments RBC (test code = RBC) 3.39 4.20-5.40 [facility] TempleQbixeezXUNFCWMLDG5116-88-89 10:18:00 Test Item Value Reference Range Interpretation Comments Platelet (test code = Platelet) 128 133-450 [facility]UXJ[facility]DQLA1666[facility] 10:18:00 Test Item Value Reference Range Interpretation Comments MPV (test code = MPV) 9.5 7.4-10.4 [facility]AbstyxpOZTMLIMFIG5259-39-87 10:18:00 Test Item Value Reference Range Interpretation Comments RDW (test code = RDW) 12.7 11.5-14.5 [facility] TempleHwxejdiQIIWAGAOJK1326-17-00 10:18:00 Test Item Value Reference Range Interpretation Comments MCH (test code = MCH) 35.5 pg 27.0-31.0 [facility] MckinneyNubqgisRRAFLZ2344-52-22 10:18:00 Test Item Value Reference Range Interpretation Comments HDL (test code = HDL) 77 [facility] CenterQclstwwQPSZKW8462-71-32 10:18:00 Test Item Value Reference Range Interpretation Comments Chol (test code = Chol) 172 [facility] MckinneyIfstqtcBQZHEK9339-74-38 10:18:00 Test Item Value Reference Range Interpretation Comments Trig (test code = Trig) 67 [facility] MckinneyAohvnbmKMSNHR9038-00-86 10:18:00 Test Item Value Reference Range Interpretation Comments LDL (Calculated) (test code = LDL 82 (Calculated)) [facility] MckinneyCzrtmkgJIDLWW5073-63-10 10:18:00 Test Item Value Reference Range Interpretation Comments CHD Risk (test code = CHD Risk) 2.23 3.90-5.80 [facility] MckinneyVrvsnifPGJCYY2892-49-34 10:18:00 Test Item Value Reference Range Interpretation Comments VLDL (test code = VLDL) 13 [facility] MckinneyCHEM BWQOE0400-34-65 10:18:00 Test Item Value Reference Range Interpretation Comments Lipase Lvl (test code = Lipase Lvl) 660 73-393 [facility] CenterDnzlrccUXAECGCNUDTX9815-47-48 10:18:00 Test Item Value Reference Range Interpretation Comments Sodium Lvl (test code = Sodium Lvl) 134 135-145 [facility]TyuqvbeXSAZLVZOUGZG0332-53-08 10:18:00 Test Item Value Reference Range Interpretation Comments Potassium Lvl (test code = Potassium 3.5 3.5-5.1 Lvl) [facility] MichiganXkhziqwUNXNANUJJXVS7962-70-11 10:18:00 Test Item Value Reference Range Interpretation Comments Calcium Lvl (test code = Calcium Lvl) 7.8 8.5-10.5 [facility] MichiganIoukrtuKWEKDKOZBUUQ9194-40-20 10:18:00 Test Item Value Reference Range Interpretation Comments Chloride Lvl (test code = Chloride Lvl) 98 95-109 [facility] MichiganLlessufPHUDWKELKDQC9650-68-73 10:18:00 Test Item Value Reference Range Interpretation Comments eGFR (test code = eGFR) 72 [facility] MichiganSklsfesGFGGNQPMTAQS0637-72-92 10:18:00 Test Item Value Reference Range Interpretation Comments Globulin (test code = Globulin) 3.0 2.0-4.0 [facility] MichiganLdywcqnBLGFGSDNXZTY8717-63-00 10:18:00 Test Item Value Reference Range Interpretation Comments A/G Ratio (test code = A/G Ratio) 1.0 0.7-1.6 [facility] MichiganEngetdqZSXCSTPTJWBL8742-27-84 10:18:00 Test Item Value Reference Range Interpretation Comments AST (test code = AST) 45 See_Comment [Auto mated message] The system which ge nerated this result transmit rafael reference range : <=37. The reference range was not used to interpr et this result as josi l/abnormal. [facility] MichiganFhmywzyVNAWWZVPDPIQ6735-09-38 10:18:00 Test Item Value Reference Range Interpretation Comments ALT (test code = ALT) 57 See_Comment [Auto mated message] The system which ge nerated this result transmit rafael reference range : <=65. The reference range was not used to interpr et this result as josi l/abnormal. [facility] MichiganFuxzwjgXPVODYMOQVIM0591-80-63 10:18:00 Test Item Value Reference Range Interpretation Comments Alk Phos (test code = Alk Phos) 49 39-136 [facility] MichiganEefjmikIMSRSBXSUMNI1360-99-38 10:18:00 Test Item Value Reference Range Interpretation Comments Bili Total (test code = Bili Total) 0.7 0.2-1.3 [facility] MichiganLddhczkLSFXQTMSZUAC6127-47-18 10:18:00 Test Item Value Reference Range Interpretation Comments Glucose Lvl (test code = Glucose Lvl) 145 70-99 [facility] MichiganSaxlgkmRSUXJBUNNEME5277-57-72 10:18:00 Test Item Value Reference Range Interpretation Comments Creatinine Lvl (test code = Creatinine 0.9 0.5-1.4 Lvl) [facility] MichiganYriaztyETEBUYOVBCNZ2458-84-81 10:18:00 Test Item Value Reference Range Interpretation Comments BUN (test code = BUN) 12 - [facility] MichiganYdbcfvqCMTCLHEVFYPB0186-70-25 10:18:00 Test Item Value Reference Range Interpretation Comments B/C Ratio (test code = B/C Ratio) 13 - [facility] MichiganPltnqiwSIQVDUBXGZXM7755-50-06 10:18:00 Test Item Value Reference Range Interpretation Comments CO2 (test code = CO2) 30 - [facility] MichiganIcjvwrqBYTOJCOJRUKO0199-09-07 10:18:00 Test Item Value Reference Range Interpretation Comments Total Protein (test code = Total 6.1 6.4-8.4 Protein) [facility] MichiganSavwizcKXMVAPDICZGX1545-91-86 10:18:00 Test Item Value Reference Range Interpretation Comments AGAP (test code = AGAP) 9.5 10.0-20.0 [facility] MichiganJpaepbjFMBSNIMAFGFM5972-53-85 10:18:00 Test Item Value Reference Range Interpretation Comments Albumin Lvl (test code = Albumin Lvl) 3.1 3.5-5.0 [facility] TempleXjhoaceUOZUGUFHHB7615-33-45 10:18:00 Test Item Value Reference Range Interpretation Comments Eosinophils # (test code 0.2 See_Comment [A utomated message] The = Eosinophils #) system whic h generated this result tra nsmitted reference range : <=0.5. The reference r genesis was not used to int erpret this result as normal/abnormal . [facility] TempleDvmszieUULAQSQHHG3201-48-73 10:18:00 Test Item Value Reference Range Interpretation Comments Macrocyte (test code = 2+ *ABN*(10/31/14 Macrocyte) 5:18 AM) [facility] TempleIgyoshdFNEEFRFWRR4187-81-74 10:18:00 Test Item Value Reference Range Interpretation Comments Monocytes # (test code 0.5 See_Comment [Aut omated message] The = Monocytes #) system which generated this result tra nsmitted reference range : <=0.8. The reference r genesis was not used to int erpret this result as normal/abnormal . [facility] TempleUmroilwCLQCKTZUHH0813-39-15 10:18:00 Test Item Value Reference Range Interpretation Comments Eosinophils (test code = 2.3 See_Comment [A utomated message] The Eosinophils) system which ge nerated this result tra nsmitted reference range : <=4.0. The reference r genesis was not used to int erpret this result as normal/abnormal . [facility] TempleFfxzjrgFSYVYXGVPF8403-31-41 10:18:00 Test Item Value Reference Range Interpretation Comments Lymphocytes # (test code = Lymphocytes 1.2 1.0-5.5 #) [facility] TempleRmcxiugKUATYEHSQE8313-86-03 10:18:00 Test Item Value Reference Range Interpretation Comments Basophils (test code = 0.3 See_Comment [Aut omated message] The Basophils) system which ge nerated this result tra nsmitted reference range : <=1.0. The reference r genesis was not used to int erpret this result as normal/abnormal . [facility] TempleIjesnvjBPJNUTGCVG8898-42-42 10:18:00 Test Item Value Reference Range Interpretation Comments Segs-Bands # (test code = Segs-Bands #) 6.1 1.5-8.1 [facility] TempleOxajkueSQKJZYVWIS9895-60-30 10:18:00 Test Item Value Reference Range Interpretation Comments Monocytes (test code = Monocytes) 6.1 2.0-12.0 [facility] TempleKbxtbeiVQFXETBTKI3324-70-00 10:18:00 Test Item Value Reference Range Interpretation Comments Lymphocytes (test code = Lymphocytes) 15.1 20.0-40.0 [facility] TempleIffbfnhRZIXJDAGOA3671-06-85 10:18:00 Test Item Value Reference Range Interpretation Comments Segs (test code = Segs) 76.2 45.0-75.0 [facility] TempleQglwazaDGNJMBAFFP1421-67-29 10:18:00 Test Item Value Reference Range Interpretation Comments MCHC (test code = MCHC) 33.9 32.0-36.0 [facility] TemplePprophxRKFKBRGALM8161-66-58 10:18:00 Test Item Value Reference Range Interpretation Comments MCV (test code = MCV) 104.7 80.0-98.0 [facility] TempleJvzgnzbCXMVHASZDA3269-03-12 10:18:00 Test Item Value Reference Range Interpretation Comments Hct (test code = Hct) 35.5 36.0-48.0 [facility] TempleSwsoqenJSEQIDGAZD5464-87-55 10:18:00 Test Item Value Reference Range Interpretation Comments Hgb (test code = Hgb) 12.0 12.0-16.0 [facility] TempleWcodfmyVMNSNBDYKY6624-61-68 10:18:00 Test Item Value Reference Range Interpretation Comments WBC (test code = WBC) 8.0 3.7-10.4 [facility] TempleBrlplrkMIWLJRVNCT3235-93-68 10:18:00 Test Item Value Reference Range Interpretation Comments RBC (test code = RBC) 3.39 4.20-5.40 [facility] TempleTbrifacQJVLJAPUYS9084-62-24 10:18:00 Test Item Value Reference Range Interpretation Comments Platelet (test code = Platelet) 128 133-450 [facility] TempleDakjgwpSLFCZLGXJE7523-53-42 10:18:00 Test Item Value Reference Range Interpretation Comments MPV (test code = MPV) 9.5 7.4-10.4 [facility] TempleBefsfgjFWIWHGHYTB7509-81-19 10:18:00 Test Item Value Reference Range Interpretation Comments RDW (test code = RDW) 12.7 11.5-14.5 [facility] TempleVywisqxBOHRAMAMFO7035-11-15 10:18:00 Test Item Value Reference Range Interpretation Comments MCH (test code = MCH) 35.5 pg 27.0-31.0 [facility] CenterYvhbntaCLMWJU9173-32-66 10:18:00 Test Item Value Reference Range Interpretation Comments HDL (test code = HDL) 77 [facility] CenterHgtzppuZRYGGR8150-42-68 10:18:00 Test Item Value Reference Range Interpretation Comments Chol (test code = Chol) 172 [facility]2015-04-29 12:48:00 Test Item Value Reference Range Interpretation Comments Lipase Lvl (test code = Lipase Lvl) 1352 73-393 [facility]2015-04-29 12:48:00 Test Item Value Reference Range Interpretation Comments Alk Phos (test code = Alk Phos) 50 39-136 [facility]2015-04-29 12:48:00 Test Item Value Reference Range Interpretation Comments Bili Total (test code = Bili Total) 1.0 0.2-1.3 [facility]2015-04-29 12:48:00 Test Item Value Reference Range Interpretation Comments Albumin Lvl (test code = Albumin Lvl) 3.6 3.5-5.0 [facility]2015-04-29 12:48:00 Test Item Value Reference Range Interpretation Comments CO2 (test code = CO2) 33 24-32 [facility]2015-04-29 12:48:00 Test Item Value Reference Range Interpretation Comments Total Protein (test code = Total 6.4 6.4-8.4 Protein) [facility]2015-04-29 12:48:00 Test Item Value Reference Range Interpretation Comments ALT (test code = ALT) 84 See_Comment [Auto mated message] The system which ge nerated this result transmit rafael reference range : <=65. The reference range was not used to interpr et this result as josi l/abnormal. [facility]2015-04-29 12:48:00 Test Item Value Reference Range Interpretation Comments AST (test code = AST) 92 See_Comment [Auto mated message] The system which ge nerated this result transmit rafael reference range : <=37. The reference range was not used to interpr et this result as josi l/abnormal. [facility]2015-04-29 12:48:00 Test Item Value Reference Range Interpretation Comments Glucose Lvl (test code = Glucose Lvl) 105 70-99 [facility]2015-04-29 12:48:00 Test Item Value Reference Range Interpretation Comments BUN (test code = BUN) 30 7-22 [facility]2015-04-29 12:48:00 Test Item Value Reference Range Interpretation Comments eGFR (test code = eGFR) 46 [facility]2015-04-29 12:48:00 Test Item Value Reference Range Interpretation Comments Potassium Lvl (test code = Potassium 3.1 3.5-5.1 Lvl) [facility]2015-04-29 12:48:00 Test Item Value Reference Range Interpretation Comments Calcium Lvl (test code = Calcium Lvl) 8.3 8.5-10.5 [facility]2015-04-29 12:48:00 Test Item Value Reference Range Interpretation Comments Chloride Lvl (test code = Chloride Lvl) 96 95-109 [facility]2015-04-29 12:48:00 Test Item Value Reference Range Interpretation Comments Sodium Lvl (test code = Sodium Lvl) 136 135-145 [facility]2015-04-29 12:48:00 Test Item Value Reference Range Interpretation Comments Creatinine Lvl (test code = Creatinine 1.3 0.5-1.4 Lvl) [place] 599625-04-29 12:48:00 Test Item Value Reference Range Interpretation Comments Globulin (test code = Globulin) 2.8 2.0-4.0 [facility]2015-04-29 12:48:00 Test Item Value Reference Range Interpretation Comments A/G Ratio (test code = A/G Ratio) 1.3 0.7-1.6 [facility]2015-04-29 12:48:00 Test Item Value Reference Range Interpretation Comments B/C Ratio (test code = B/C Ratio) 23 6-25 [facility]2015-04-29 12:48:00 Test Item Value Reference Range Interpretation Comments AGAP (test code = AGAP) 10.1 10.0-20.0 [facility] TempleSiruumrFDWQZJKDIJ7901-59-95 12:48:00 Test Item Value Reference Range Interpretation Comments Macrocyte (test code = 1+ *ABN*(10/30/14 Macrocyte) 7:48 AM) [facility] TempleTzoukjtQZCEIOFKFM9204-51-95 12:48:00 Test Item Value Reference Range Interpretation Comments Segs-Bands # (test code = Segs-Bands #) 5.5 1.5-8.1 [facility] TempleVsafeepHFCIVRHIEN0448-77-02 12:48:00 Test Item Value Reference Range Interpretation Comments Basophils (test code = 0.7 See_Comment [Aut omated message] The Basophils) system which ge nerated this result tra nsmitted reference range : <=1.0. The reference r genesis was not used to int erpret this result as normal/abnormal . [facility] TemplePtofiioDYGJCEXCZN6691-50-03 12:48:00 Test Item Value Reference Range Interpretation Comments Eosinophils (test code = 1.4 See_Comment [A utomated message] The Eosinophils) system which ge nerated this result tra nsmitted reference range : <=4.0. The reference r genesis was not used to int erpret this result as normal/abnormal . [facility] TempleXdscpprKNXFUQQORC7391-74-84 12:48:00 Test Item Value Reference Range Interpretation Comments Basophils # (test code 0.1 See_Comment [Aut omated message] The = Basophils #) system which generated this result tra nsmitted reference range : <=0.2. The reference r genesis was not used to int erpret this result as normal/abnormal . [facility] TempleOrjahoeKTGVRDATMP6897-58-28 12:48:00 Test Item Value Reference Range Interpretation Comments Eosinophils # (test code 0.1 See_Comment [A utomated message] The = Eosinophils #) system ic h generated this result tra nsmitted reference range : <=0.5. The reference r genesis was not used to int erpret this result as normal/abnormal . [facility] TempleHlcvluyOOFOCGSKTY9898-35-84 12:48:00 Test Item Value Reference Range Interpretation Comments Lymphocytes # (test code = Lymphocytes 1.6 1.0-5.5 #) [facility] TempleIjezlbqGCLFHMKVPM1452-23-12 12:48:00 Test Item Value Reference Range Interpretation Comments Monocytes # (test code 0.5 See_Comment [Aut omated message] The = Monocytes #) system which generated this result tra nsmitted reference range : <=0.8. The reference r genesis was not used to int erpret this result as normal/abnormal . [facility] TempleWbkmyfmXRNMIETONM7247-79-09 12:48:00 Test Item Value Reference Range Interpretation Comments Monocytes (test code = Monocytes) 6.7 2.0-12.0 [facility] TempleUfvqshcIKBDEKSXNH2617-62-57 12:48:00 Test Item Value Reference Range Interpretation Comments Lymphocytes (test code = Lymphocytes) 20.3 20.0-40.0 [facility] TempleLfgisupOOQHOODTIB6040-28-17 12:48:00 Test Item Value Reference Range Interpretation Comments Segs (test code = Segs) 70.9 45.0-75.0 [facility] TempleIzatvjwIYZBURZAQH3801-00-79 12:48:00 Test Item Value Reference Range Interpretation Comments RDW (test code = RDW) 12.9 11.5-14.5 [facility] TempleCuwbgazOTVCYGLWBI9427-73-05 12:48:00 Test Item Value Reference Range Interpretation Comments Hgb (test code = Hgb) 12.8 12.0-16.0 [facility] TempleZnyyvpgVSJQTAKTEB6839-60-74 12:48:00 Test Item Value Reference Range Interpretation Comments RBC (test code = RBC) 3.56 4.20-5.40 [facility] TempleScnqtpdDIZKRMCDKP7396-58-06 12:48:00 Test Item Value Reference Range Interpretation Comments MPV (test code = MPV) 8.3 7.4-10.4 [facility] TempleDzsetgoRXWMTIIDDR3647-52-35 12:48:00 Test Item Value Reference Range Interpretation Comments Platelet (test code = Platelet) 163 133-450 [facility] TempleYmavwbgFEJVSVDQVS0393-26-68 12:48:00 Test Item Value Reference Range Interpretation Comments MCV (test code = MCV) 103.3 80.0-98.0 [facility] TempleRnpsyecQKYNMPXHOV6164-53-89 12:48:00 Test Item Value Reference Range Interpretation Comments Hct (test code = Hct) 36.8 36.0-48.0 [facility] TempleZhmevfbTMCOFZMOTC1310-68-35 12:48:00 Test Item Value Reference Range Interpretation Comments MCHC (test code = MCHC) 34.9 32.0-36.0 [facility] TempleGmvbcmnVJOOUOEYYT2446-69-50 12:48:00 Test Item Value Reference Range Interpretation Comments MCH (test code = MCH) 36.1 pg 27.0-31.0 [facility] TempleZtkgfwzLLIEELEHAF4063-80-09 12:48:00 Test Item Value Reference Range Interpretation Comments WBC (test code = WBC) 7.8 3.7-10.4 [facility]2015-04-29 12:48:00 Test Item Value Reference Range Interpretation Comments Lipase Lvl (test code = Lipase Lvl) 1352 73-393 [facility]2015-04-29 12:48:00 Test Item Value Reference Range Interpretation Comments Alk Phos (test code = Alk Phos) 50 39-136 [facility]2015-04-29 12:48:00 Test Item Value Reference Range Interpretation Comments Bili Total (test code = Bili Total) 1.0 0.2-1.3 [facility]2015-04-29 12:48:00 Test Item Value Reference Range Interpretation Comments Albumin Lvl (test code = Albumin Lvl) 3.6 3.5-5.0 [facility]2015-04-29 12:48:00 Test Item Value Reference Range Interpretation Comments CO2 (test code = CO2) 33 24-32 [facility]2015-04-29 12:48:00 Test Item Value Reference Range Interpretation Comments Total Protein (test code = Total 6.4 6.4-8.4 Protein) [facility]2015-04-29 12:48:00 Test Item Value Reference Range Interpretation Comments ALT (test code = ALT) 84 See_Comment [Auto mated message] The system which ge nerated this result transmit rafael reference range : <=65. The reference range was not used to interpr et this result as josi l/abnormal. [facility]2015-04-29 12:48:00 Test Item Value Reference Range Interpretation Comments AST (test code = AST) 92 See_Comment [Auto mated message] The system which ge nerated this result transmit rafael reference range : <=37. The reference range was not used to interpr et this result as josi l/abnormal. [facility]2015-04-29 12:48:00 Test Item Value Reference Range Interpretation Comments Glucose Lvl (test code = Glucose Lvl) 105 70-99 [facility]2015-04-29 12:48:00 Test Item Value Reference Range Interpretation Comments BUN (test code = BUN) 30 7-22 [facility]2015-04-29 12:48:00 Test Item Value Reference Range Interpretation Comments eGFR (test code = eGFR) 46 [facility]2015-04-29 12:48:00 Test Item Value Reference Range Interpretation Comments Potassium Lvl (test code = Potassium 3.1 3.5-5.1 Lvl) [facility]2015-04-29 12:48:00 Test Item Value Reference Range Interpretation Comments Calcium Lvl (test code = Calcium Lvl) 8.3 8.5-10.5 [facility]2015-04-29 12:48:00 Test Item Value Reference Range Interpretation Comments Chloride Lvl (test code = Chloride Lvl) 96 95-109 [facility]2015-04-29 12:48:00 Test Item Value Reference Range Interpretation Comments Sodium Lvl (test code = Sodium Lvl) 136 135-145 [facility]2015-04-29 12:48:00 Test Item Value Reference Range Interpretation Comments Creatinine Lvl (test code = Creatinine 1.3 0.5-1.4 Lvl) [facility]2015-04-29 12:48:00 Test Item Value Reference Range Interpretation Comments Globulin (test code = Globulin) 2.8 2.0-4.0 [facility]2015-04-29 12:48:00 Test Item Value Reference Range Interpretation Comments A/G Ratio (test code = A/G Ratio) 1.3 0.7-1.6 [facility]2015-04-29 12:48:00 Test Item Value Reference Range Interpretation Comments B/C Ratio (test code = B/C Ratio) 23 6-25 [facility]2015-04-29 12:48:00 Test Item Value Reference Range Interpretation Comments AGAP (test code = AGAP) 10.1 10.0-20.0 [facility] TempleUtfzcynVLMADSYBRZ0437-68-81 12:48:00 Test Item Value Reference Range Interpretation Comments Macrocyte (test code = 1+ *ABN*(10/30/14 Macrocyte) 7:48 AM) [facility] TempleWstanmxTVIIBWDTLX5815-74-65 12:48:00 Test Item Value Reference Range Interpretation Comments Segs-Bands # (test code = Segs-Bands #) 5.5 1.5-8.1 [facility] TempleKvwbpvkWGIVBQEOLN1094-43-46 12:48:00 Test Item Value Reference Range Interpretation Comments Basophils (test code = 0.7 See_Comment [Aut omated message] The Basophils) system which ge nerated this result tra nsmitted reference range : <=1.0. The reference r genesis was not used to int erpret this result as normal/abnormal . [facility] TempleFxktdvaUZVNODOTRG8128-81-90 12:48:00 Test Item Value Reference Range Interpretation Comments Eosinophils (test code = 1.4 See_Comment [A utomated message] The Eosinophils) system which ge nerated this result tra nsmitted reference range : <=4.0. The reference r genesis was not used to int erpret this result as normal/abnormal . [facility] TempleTrdmhfzHERIORSGJH9744-85-30 12:48:00 Test Item Value Reference Range Interpretation Comments Basophils # (test code 0.1 See_Comment [Aut omated message] The = Basophils #) system which generated this result tra nsmitted reference range : <=0.2. The reference r genesis was not used to int erpret this result as normal/abnormal . [facility] TempleZnqkbkrDCBXLPPSFN8056-08-65 12:48:00 Test Item Value Reference Range Interpretation Comments Eosinophils # (test code 0.1 See_Comment [A utomated message] The = Eosinophils #) system whic h generated this result tra nsmitted reference range : <=0.5. The reference r genesis was not used to int erpret this result as normal/abnormal . [facility] TempleJthgyjgUFKBNEKYWC3608-79-99 12:48:00 Test Item Value Reference Range Interpretation Comments Lymphocytes # (test code = Lymphocytes 1.6 1.0-5.5 #) [facility] TempleZblgxkpAUAPTBPOMP0014-95-41 12:48:00 Test Item Value Reference Range Interpretation Comments Monocytes # (test code 0.5 See_Comment [Aut omated message] The = Monocytes #) system which generated this result tra nsmitted reference range : <=0.8. The reference r genesis was not used to int erpret this result as normal/abnormal . [facility] TempleKprwituZSIKNORRAG7302-08-87 12:48:00 Test Item Value Reference Range Interpretation Comments Monocytes (test code = Monocytes) 6.7 2.0-12.0 [facility] TempleXrgqheaKTXKUPJMZR4311-06-92 12:48:00 Test Item Value Reference Range Interpretation Comments Lymphocytes (test code = Lymphocytes) 20.3 20.0-40.0 [facility] TempleAkzsliuIXXVXOVSFT7865-42-79 12:48:00 Test Item Value Reference Range Interpretation Comments Segs (test code = Segs) 70.9 45.0-75.0 [facility] TempleCrlkcqwWPVYBGJGGN1885-35-68 12:48:00 Test Item Value Reference Range Interpretation Comments RDW (test code = RDW) 12.9 11.5-14.5 [facility] TempleOlrwrzqXRWENFFKMJ7703-96-67 12:48:00 Test Item Value Reference Range Interpretation Comments Hgb (test code = Hgb) 12.8 12.0-16.0 [facility] TempleCbtdhlhUBDJIPXZUF6033-39-62 12:48:00 Test Item Value Reference Range Interpretation Comments RBC (test code = RBC) 3.56 4.20-5.40 [facility] TempleElpgsidUWNNZBAREI5915-78-16 12:48:00 Test Item Value Reference Range Interpretation Comments MPV (test code = MPV) 8.3 7.4-10.4 [facility] TempleAcdtappEQKYMFVEEZ7231-70-96 12:48:00 Test Item Value Reference Range Interpretation Comments Platelet (test code = Platelet) 163 133-450 [facility] TempleBycedgvXUYQWACURX6452-33-86 12:48:00 Test Item Value Reference Range Interpretation Comments MCV (test code = MCV) 103.3 80.0-98.0 [facility] TempleZpoeindGQJZGBTEDN4664-34-04 12:48:00 Test Item Value Reference Range Interpretation Comments Hct (test code = Hct) 36.8 36.0-48.0 [facility] TempleLtkrereUKRBBVHZVH0080-74-73 12:48:00 Test Item Value Reference Range Interpretation Comments MCHC (test code = MCHC) 34.9 32.0-36.0 [facility] TempleKiqpsytDQVAKHUUEP7300-39-20 12:48:00 Test Item Value Reference Range Interpretation Comments MCH (test code = MCH) 36.1 pg 27.0-31.0 [facility] TempleQvjfhoiUTTEXFMHNO6483-69-30 12:48:00 Test Item Value Reference Range Interpretation Comments WBC (test code = WBC) 7.8 3.7-10.4 [facility]2015-04-29 12:48:00 Test Item Value Reference Range Interpretation Comments Lipase Lvl (test code = Lipase Lvl) 1352 73-393 [facility]2015-04-29 12:48:00 Test Item Value Reference Range Interpretation Comments Alk Phos (test code = Alk Phos) 50 39-136 [facility]2015-04-29 12:48:00 Test Item Value Reference Range Interpretation Comments Bili Total (test code = Bili Total) 1.0 0.2-1.3 [facility]2015-04-29 12:48:00 Test Item Value Reference Range Interpretation Comments Albumin Lvl (test code = Albumin Lvl) 3.6 3.5-5.0 [facility]2015-04-29 12:48:00 Test Item Value Reference Range Interpretation Comments CO2 (test code = CO2) 33 24-32 [facility]2015-04-29 12:48:00 Test Item Value Reference Range Interpretation Comments Total Protein (test code = Total 6.4 6.4-8.4 Protein) [facility]2015-04-29 12:48:00 Test Item Value Reference Range Interpretation Comments ALT (test code = ALT) 84 See_Comment [Auto mated message] The system which ge nerated this result transmit rafael reference range : <=65. The reference range was not used to interpr et this result as josi l/abnormal. [facility]2015-04-29 12:48:00 Test Item Value Reference Range Interpretation Comments AST (test code = AST) 92 See_Comment [Auto mated message] The system which ge nerated this result transmit rafael reference range : <=37. The reference range was not used to interpr et this result as josi l/abnormal. [facility]2015-04-29 12:48:00 Test Item Value Reference Range Interpretation Comments Glucose Lvl (test code = Glucose Lvl) 105 70-99 [facility]2015-04-29 12:48:00 Test Item Value Reference Range Interpretation Comments BUN (test code = BUN) 30 7-22 [facility]2015-04-29 12:48:00 Test Item Value Reference Range Interpretation Comments eGFR (test code = eGFR) 46 [facility]2015-04-29 12:48:00 Test Item Value Reference Range Interpretation Comments Potassium Lvl (test code = Potassium 3.1 3.5-5.1 Lvl) [facility]2015-04-29 12:48:00 Test Item Value Reference Range Interpretation Comments Calcium Lvl (test code = Calcium Lvl) 8.3 8.5-10.5 [facility]2015-04-29 12:48:00 Test Item Value Reference Range Interpretation Comments Chloride Lvl (test code = Chloride Lvl) 96 95-109 [facility]2015-04-29 12:48:00 Test Item Value Reference Range Interpretation Comments Sodium Lvl (test code = Sodium Lvl) 136 135-145 [facility]2015-04-29 12:48:00 Test Item Value Reference Range Interpretation Comments Creatinine Lvl (test code = Creatinine 1.3 0.5-1.4 Lvl) [facility]2015-04-29 12:48:00 Test Item Value Reference Range Interpretation Comments Globulin (test code = Globulin) 2.8 2.0-4.0 [facility]2015-04-29 12:48:00 Test Item Value Reference Range Interpretation Comments A/G Ratio (test code = A/G Ratio) 1.3 0.7-1.6 [facility]2015-04-29 12:48:00 Test Item Value Reference Range Interpretation Comments B/C Ratio (test code = B/C Ratio) 23 6-25 [facility]2015-04-29 12:48:00 Test Item Value Reference Range Interpretation Comments AGAP (test code = AGAP) 10.1 10.0-20.0 [facility] TempleExapjzcXKCVJIQYMX2498-12-77 12:48:00 Test Item Value Reference Range Interpretation Comments Macrocyte (test code = 1+ *ABN*(10/30/14 Macrocyte) 7:48 AM) [facility] TempleHbmvhnkQEYLEJWYWM5343-10-49 12:48:00 Test Item Value Reference Range Interpretation Comments Segs-Bands # (test code = Segs-Bands #) 5.5 1.5-8.1 [facility] TempleAdnqtecCJNXQRNAIT7482-07-39 12:48:00 Test Item Value Reference Range Interpretation Comments Basophils (test code = 0.7 See_Comment [Aut omated message] The Basophils) system which ge nerated this result tra nsmitted reference range : <=1.0. The reference r genesis was not used to int erpret this result as normal/abnormal . [facility] TempleIwoimzeDRPOEURGBS2826-89-91 12:48:00 Test Item Value Reference Range Interpretation Comments Eosinophils (test code = 1.4 See_Comment [A utomated message] The Eosinophils) system which ge nerated this result tra nsmitted reference range : <=4.0. The reference r genesis was not used to int erpret this result as normal/abnormal . [facility] TempleCoorpssRZZBLCXVCD2358-95-80 12:48:00 Test Item Value Reference Range Interpretation Comments Basophils # (test code 0.1 See_Comment [Aut omated message] The = Basophils #) system which generated this result tra nsmitted reference range : <=0.2. The reference r genesis was not used to int erpret this result as normal/abnormal . [facility] TemplePlmzyidJVEYDAJEBJ9027-49-22 12:48:00 Test Item Value Reference Range Interpretation Comments Eosinophils # (test code 0.1 See_Comment [A utomated message] The = Eosinophils #) system whic h generated this result tra nsmitted reference range : <=0.5. The reference r genesis was not used to int erpret this result as normal/abnormal . [facility] TempleBbecjkiFXVHRYZAHJ7353-51-16 12:48:00 Test Item Value Reference Range Interpretation Comments Lymphocytes # (test code = Lymphocytes 1.6 1.0-5.5 #) [facility] TempleYznuwciXMAPEJMLDC8442-59-73 12:48:00 Test Item Value Reference Range Interpretation Comments Monocytes # (test code 0.5 See_Comment [Aut omated message] The = Monocytes #) system which generated this result tra nsmitted reference range : <=0.8. The reference r genesis was not used to int erpret this result as normal/abnormal . [facility] TempleVeimfpuLVASIJNYAP0348-57-55 12:48:00 Test Item Value Reference Range Interpretation Comments Monocytes (test code = Monocytes) 6.7 2.0-12.0 [facility] TempleCsaabtmGXRWPNVBYP5867-13-75 12:48:00 Test Item Value Reference Range Interpretation Comments Lymphocytes (test code = Lymphocytes) 20.3 20.0-40.0 [facility] TempleHiyfrgeJVCNHDQMLE8732-92-61 12:48:00 Test Item Value Reference Range Interpretation Comments Segs (test code = Segs) 70.9 45.0-75.0 [facility] TempleBjzkprjOKQBKVUUEQ2282-36-48 12:48:00 Test Item Value Reference Range Interpretation Comments RDW (test code = RDW) 12.9 11.5-14.5 [facility] TemplePlnpngbRNMXDWEGXT6230-77-78 12:48:00 Test Item Value Reference Range Interpretation Comments Hgb (test code = Hgb) 12.8 12.0-16.0 [facility] TempleLyshmbgIRLTRIOYNN2080-70-78 12:48:00 Test Item Value Reference Range Interpretation Comments RBC (test code = RBC) 3.56 4.20-5.40 [facility] TempleAbswfveDIOPBBOVXU5346-43-36 12:48:00 Test Item Value Reference Range Interpretation Comments MPV (test code = MPV) 8.3 7.4-10.4 [facility] TempleSbagfcvZOBPVQDUYM3113-00-43 12:48:00 Test Item Value Reference Range Interpretation Comments Platelet (test code = Platelet) 163 133-450 [facility] TempleVnfosdlMCYJGDOXYI2657-02-15 12:48:00 Test Item Value Reference Range Interpretation Comments MCV (test code = MCV) 103.3 80.0-98.0 [facility] TempleHrqidrwVXRXYIBWLP8949-02-58 12:48:00 Test Item Value Reference Range Interpretation Comments Hct (test code = Hct) 36.8 36.0-48.0 [facility] TempleBtiyazjTIWEKYYLEE7242-88-49 12:48:00 Test Item Value Reference Range Interpretation Comments MCHC (test code = MCHC) 34.9 32.0-36.0 [facility] TempleGwtkxdfVDLKISWSWA2890-36-24 12:48:00 Test Item Value Reference Range Interpretation Comments MCH (test code = MCH) 36.1 pg 27.0-31.0 [facility] TempleXwquahwIJURXOUJDG7401-50-03 12:48:00 Test Item Value Reference Range Interpretation Comments WBC (test code = WBC) 7.8 3.7-10.4 [facility]2015-04-29 12:48:00 Test Item Value Reference Range Interpretation Comments Lipase Lvl (test code = Lipase Lvl) 1352 73-393 [facility]2015-04-29 12:48:00 Test Item Value Reference Range Interpretation Comments Alk Phos (test code = Alk Phos) 50 39-136 [facility]2015-04-29 12:48:00 Test Item Value Reference Range Interpretation Comments Bili Total (test code = Bili Total) 1.0 0.2-1.3 [place] 599625-04-29 12:48:00 Test Item Value Reference Range Interpretation Comments Albumin Lvl (test code = Albumin Lvl) 3.6 3.5-5.0 [facility]2015-04-29 12:48:00 Test Item Value Reference Range Interpretation Comments CO2 (test code = CO2) 33 24-32 [facility]2015-04-29 12:48:00 Test Item Value Reference Range Interpretation Comments Total Protein (test code = Total 6.4 6.4-8.4 Protein) [facility]2015-04-29 12:48:00 Test Item Value Reference Range Interpretation Comments ALT (test code = ALT) 84 See_Comment [Auto mated message] The system which ge nerated this result transmit rafael reference range : <=65. The reference range was not used to interpr et this result as josi l/abnormal. [facility]2015-04-29 12:48:00 Test Item Value Reference Range Interpretation Comments AST (test code = AST) 92 See_Comment [Auto mated message] The system which ge nerated this result transmit rafael reference range : <=37. The reference range was not used to interpr et this result as josi l/abnormal. [facility]2015-04-29 12:48:00 Test Item Value Reference Range Interpretation Comments Glucose Lvl (test code = Glucose Lvl) 105 70-99 [facility]2015-04-29 12:48:00 Test Item Value Reference Range Interpretation Comments BUN (test code = BUN) 30 7-22 [facility]2015-04-29 12:48:00 Test Item Value Reference Range Interpretation Comments eGFR (test code = eGFR) 46 [facility]2015-04-29 12:48:00 Test Item Value Reference Range Interpretation Comments Potassium Lvl (test code = Potassium 3.1 3.5-5.1 Lvl) [facility]2015-04-29 12:48:00 Test Item Value Reference Range Interpretation Comments Calcium Lvl (test code = Calcium Lvl) 8.3 8.5-10.5 [facility]2015-04-29 12:48:00 Test Item Value Reference Range Interpretation Comments Chloride Lvl (test code = Chloride Lvl) 96 95-109 [facility]2015-04-29 12:48:00 Test Item Value Reference Range Interpretation Comments Sodium Lvl (test code = Sodium Lvl) 136 135-145 [facility]2015-04-29 12:48:00 Test Item Value Reference Range Interpretation Comments Creatinine Lvl (test code = Creatinine 1.3 0.5-1.4 Lvl) [facility]2015-04-29 12:48:00 Test Item Value Reference Range Interpretation Comments Globulin (test code = Globulin) 2.8 2.0-4.0 [facility]2015-04-29 12:48:00 Test Item Value Reference Range Interpretation Comments A/G Ratio (test code = A/G Ratio) 1.3 0.7-1.6 [facility]2015-04-29 12:48:00 Test Item Value Reference Range Interpretation Comments B/C Ratio (test code = B/C Ratio) 23 6-25 [facility]2015-04-29 12:48:00 Test Item Value Reference Range Interpretation Comments AGAP (test code = AGAP) 10.1 10.0-20.0 [facility] TempleYuwtzjvPXYRGCMTZY3068-03-79 12:48:00 Test Item Value Reference Range Interpretation Comments Macrocyte (test code = 1+ *ABN*(10/30/14 Macrocyte) 7:48 AM) [facility] TempleAuwzxtuHRGWRZXKZB5486-48-82 12:48:00 Test Item Value Reference Range Interpretation Comments Segs-Bands # (test code = Segs-Bands #) 5.5 1.5-8.1 [facility] TempleWrsfbyyXQGBGNLGJS5528-34-10 12:48:00 Test Item Value Reference Range Interpretation Comments Basophils (test code = 0.7 See_Comment [Aut omated message] The Basophils) system which ge nerated this result tra nsmitted reference range : <=1.0. The reference r genesis was not used to int erpret this result as normal/abnormal . [facility] TempleAcuuiiiJQZXDOOANC0403-42-82 12:48:00 Test Item Value Reference Range Interpretation Comments Eosinophils (test code = 1.4 See_Comment [A utomated message] The Eosinophils) system which ge nerated this result tra nsmitted reference range : <=4.0. The reference r genesis was not used to int erpret this result as normal/abnormal . [facility] TempleIclxhjgUXSFHEIYHG9756-37-30 12:48:00 Test Item Value Reference Range Interpretation Comments Basophils # (test code 0.1 See_Comment [Aut omated message] The = Basophils #) system which generated this result tra nsmitted reference range : <=0.2. The reference r genesis was not used to int erpret this result as normal/abnormal . [facility] TempleCbhfivtGELCAZVRDI3583-47-12 12:48:00 Test Item Value Reference Range Interpretation Comments Eosinophils # (test code 0.1 See_Comment [A utomated message] The = Eosinophils #) system whic h generated this result tra nsmitted reference range : <=0.5. The reference r genesis was not used to int erpret this result as normal/abnormal . [facility] TempleOgastqnRRGKAJHQFE3943-22-67 12:48:00 Test Item Value Reference Range Interpretation Comments Lymphocytes # (test code = Lymphocytes 1.6 1.0-5.5 #) [facility] TempleEvmszttKGHZRLBJYV6191-37-57 12:48:00 Test Item Value Reference Range Interpretation Comments Monocytes # (test code 0.5 See_Comment [Aut omated message] The = Monocytes #) system which generated this result tra nsmitted reference range : <=0.8. The reference r genesis was not used to int erpret this result as normal/abnormal . [facility] TempleRgnddlfRJUEGCIKVD6800-46-17 12:48:00 Test Item Value Reference Range Interpretation Comments Monocytes (test code = Monocytes) 6.7 2.0-12.0 [facility] TempleFohsadvSLWTFHNFUG0675-15-00 12:48:00 Test Item Value Reference Range Interpretation Comments Lymphocytes (test code = Lymphocytes) 20.3 20.0-40.0 [facility] TempleKnrryfxGRVGPUCIZU5689-96-63 12:48:00 Test Item Value Reference Range Interpretation Comments Segs (test code = Segs) 70.9 45.0-75.0 [facility] TempleEiaymnaWPWSXSTMZM5257-98-21 12:48:00 Test Item Value Reference Range Interpretation Comments RDW (test code = RDW) 12.9 11.5-14.5 [facility] TempleAlmlsbeIBTAHHNFUE3659-81-42 12:48:00 Test Item Value Reference Range Interpretation Comments Hgb (test code = Hgb) 12.8 12.0-16.0 [facility] TempleDfjldqrIXVBNLNASU3466-05-40 12:48:00 Test Item Value Reference Range Interpretation Comments RBC (test code = RBC) 3.56 4.20-5.40 [facility] TempleJmguhtgYKUCKQTPJY5089-74-19 12:48:00 Test Item Value Reference Range Interpretation Comments MPV (test code = MPV) 8.3 7.4-10.4 [facility] TempleDnbaaxzYERYHDITXJ0901-51-68 12:48:00 Test Item Value Reference Range Interpretation Comments Platelet (test code = Platelet) 163 133-450 [facility] TempleZduqimyHWXTNQEPXH7392-91-58 12:48:00 Test Item Value Reference Range Interpretation Comments MCV (test code = MCV) 103.3 80.0-98.0 [facility] TempleRypmnivCLLYMAJJXX5992-18-63 12:48:00 Test Item Value Reference Range Interpretation Comments Hct (test code = Hct) 36.8 36.0-48.0 [facility] TempleUjuvylbBIDISABXCK8180-09-56 12:48:00 Test Item Value Reference Range Interpretation Comments MCHC (test code = MCHC) 34.9 32.0-36.0 [facility] TempleGkqqlklIHZFQJVLXK4136-88-12 12:48:00 Test Item Value Reference Range Interpretation Comments MCH (test code = MCH) 36.1 pg 27.0-31.0 [facility] TempleGzdzvhvFLZLGSMJAC9755-30-57 12:48:00 Test Item Value Reference Range Interpretation Comments WBC (test code = WBC) 7.8 3.7-10.4 [facility]2015-04-29 12:48:00 Test Item Value Reference Range Interpretation Comments Lipase Lvl (test code = Lipase Lvl) 1352 73-393 [facility]2015-04-29 12:48:00 Test Item Value Reference Range Interpretation Comments Alk Phos (test code = Alk Phos) 50 39-136 [facility]2015-04-29 12:48:00 Test Item Value Reference Range Interpretation Comments Bili Total (test code = Bili Total) 1.0 0.2-1.3 [facility]2015-04-29 12:48:00 Test Item Value Reference Range Interpretation Comments Albumin Lvl (test code = Albumin Lvl) 3.6 3.5-5.0 [facility]2015-04-29 12:48:00 Test Item Value Reference Range Interpretation Comments CO2 (test code = CO2) 33 24-32 [facility]2015-04-29 12:48:00 Test Item Value Reference Range Interpretation Comments Total Protein (test code = Total 6.4 6.4-8.4 Protein) [facility]2015-04-29 12:48:00 Test Item Value Reference Range Interpretation Comments ALT (test code = ALT) 84 See_Comment [Auto mated message] The system which ge nerated this result transmit rafael reference range : <=65. The reference range was not used to interpr et this result as josi l/abnormal. [facility]2015-04-29 12:48:00 Test Item Value Reference Range Interpretation Comments AST (test code = AST) 92 See_Comment [Auto mated message] The system which ge nerated this result transmit rafael reference range : <=37. The reference range was not used to interpr et this result as josi l/abnormal. [facility]2015-04-29 12:48:00 Test Item Value Reference Range Interpretation Comments Glucose Lvl (test code = Glucose Lvl) 105 70-99 [facility]2015-04-29 12:48:00 Test Item Value Reference Range Interpretation Comments BUN (test code = BUN) 30 7-22 [facility]2015-04-29 12:48:00 Test Item Value Reference Range Interpretation Comments eGFR (test code = eGFR) 46 [facility]2015-04-29 12:48:00 Test Item Value Reference Range Interpretation Comments Potassium Lvl (test code = Potassium 3.1 3.5-5.1 Lvl) [facility]2015-04-29 12:48:00 Test Item Value Reference Range Interpretation Comments Calcium Lvl (test code = Calcium Lvl) 8.3 8.5-10.5 [facility]2015-04-29 12:48:00 Test Item Value Reference Range Interpretation Comments Chloride Lvl (test code = Chloride Lvl) 96 95-109 [facility]2015-04-29 12:48:00 Test Item Value Reference Range Interpretation Comments Sodium Lvl (test code = Sodium Lvl) 136 135-145 [facility]2015-04-29 12:48:00 Test Item Value Reference Range Interpretation Comments Creatinine Lvl (test code = Creatinine 1.3 0.5-1.4 Lvl) [facility]2015-04-29 12:48:00 Test Item Value Reference Range Interpretation Comments Globulin (test code = Globulin) 2.8 2.0-4.0 [facility]2015-04-29 12:48:00 Test Item Value Reference Range Interpretation Comments A/G Ratio (test code = A/G Ratio) 1.3 0.7-1.6 [facility]2015-04-29 12:48:00 Test Item Value Reference Range Interpretation Comments B/C Ratio (test code = B/C Ratio) 23 6-25 [facility]2015-04-29 12:48:00 Test Item Value Reference Range Interpretation Comments AGAP (test code = AGAP) 10.1 10.0-20.0 [facility] TempleZxpldvvBNWTLLHHFC4812-27-85 12:48:00 Test Item Value Reference Range Interpretation Comments Macrocyte (test code = 1+ *ABN*(10/30/14 Macrocyte) 7:48 AM) [facility] TempleUxysgvqBLUBZCZMCB2912-15-26 12:48:00 Test Item Value Reference Range Interpretation Comments Segs-Bands # (test code = Segs-Bands #) 5.5 1.5-8.1 [facility] TempleUampbnpPGZXOWTDDF7342-10-30 12:48:00 Test Item Value Reference Range Interpretation Comments Basophils (test code = 0.7 See_Comment [Aut omated message] The Basophils) system which ge nerated this result tra nsmitted reference range : <=1.0. The reference r genesis was not used to int erpret this result as normal/abnormal . [facility] TempleDzlqvcvSIPNLCJGYC1431-39-68 12:48:00 Test Item Value Reference Range Interpretation Comments Eosinophils (test code = 1.4 See_Comment [A utomated message] The Eosinophils) system which ge nerated this result tra nsmitted reference range : <=4.0. The reference r genesis was not used to int erpret this result as normal/abnormal . [facility] TempleFoxonslAJKDRZNDDY0288-01-37 12:48:00 Test Item Value Reference Range Interpretation Comments Basophils # (test code 0.1 See_Comment [Aut omated message] The = Basophils #) system which generated this result tra nsmitted reference range : <=0.2. The reference r genesis was not used to int erpret this result as normal/abnormal . [facility] TempleJdbxwozRYNLFEGEBE6771-46-06 12:48:00 Test Item Value Reference Range Interpretation Comments Eosinophils # (test code 0.1 See_Comment [A utomated message] The = Eosinophils #) system whic h generated this result tra nsmitted reference range : <=0.5. The reference r genesis was not used to int erpret this result as normal/abnormal . [facility] TempleSrepzaqOEDKGPGZHK2774-26-52 12:48:00 Test Item Value Reference Range Interpretation Comments Lymphocytes # (test code = Lymphocytes 1.6 1.0-5.5 #) [facility] TempleTonfssbFDCUTXTAUN3659-10-56 12:48:00 Test Item Value Reference Range Interpretation Comments Monocytes # (test code 0.5 See_Comment [Aut omated message] The = Monocytes #) system which generated this result tra nsmitted reference range : <=0.8. The reference r genesis was not used to int erpret this result as normal/abnormal . [facility] TempleZxrunyrNYTLDDKQYU1727-18-87 12:48:00 Test Item Value Reference Range Interpretation Comments Monocytes (test code = Monocytes) 6.7 2.0-12.0 [facility] TempleStujagaORLACXOBMI1819-77-23 12:48:00 Test Item Value Reference Range Interpretation Comments Lymphocytes (test code = Lymphocytes) 20.3 20.0-40.0 [facility] TempleYmxtuzkDFYUTFMAVN8257-02-26 12:48:00 Test Item Value Reference Range Interpretation Comments Segs (test code = Segs) 70.9 45.0-75.0 [facility] TemplePpibzkyGDBENKCJBR5850-47-65 12:48:00 Test Item Value Reference Range Interpretation Comments RDW (test code = RDW) 12.9 11.5-14.5 [facility] TempleEnlnppcKCSOJTYLTX6350-23-48 12:48:00 Test Item Value Reference Range Interpretation Comments Hgb (test code = Hgb) 12.8 12.0-16.0 [facility] TempleXjmgelgYQXOBBAOHR5270-88-10 12:48:00 Test Item Value Reference Range Interpretation Comments RBC (test code = RBC) 3.56 4.20-5.40 [facility] TempleFaccshrGIWXSXLYNQ9920-65-62 12:48:00 Test Item Value Reference Range Interpretation Comments MPV (test code = MPV) 8.3 7.4-10.4 [facility] TempleUzdeorvIMCSXGWXXH8248-55-52 12:48:00 Test Item Value Reference Range Interpretation Comments Platelet (test code = Platelet) 163 133-450 [facility] TempleGijbkxoPTUIHYWQJM8943-25-85 12:48:00 Test Item Value Reference Range Interpretation Comments MCV (test code = MCV) 103.3 80.0-98.0 [facility] TempleSoboutlDCUACAJPKP5217-39-40 12:48:00 Test Item Value Reference Range Interpretation Comments Hct (test code = Hct) 36.8 36.0-48.0 [facility] TempleBwpiommTBVAYWKJNN5674-16-92 12:48:00 Test Item Value Reference Range Interpretation Comments MCHC (test code = MCHC) 34.9 32.0-36.0 [facility] TempleQzusueeNOQZATERQH7210-53-58 12:48:00 Test Item Value Reference Range Interpretation Comments MCH (test code = MCH) 36.1 pg 27.0-31.0 [facility] TempleOcjahqwJKRLUJYZHY8583-98-63 12:48:00 Test Item Value Reference Range Interpretation Comments WBC (test code = WBC) 7.8 3.7-10.4 [facility]2015-04-29 12:48:00 Test Item Value Reference Range Interpretation Comments Lipase Lvl (test code = Lipase Lvl) 1352 73-393 [facility]2015-04-29 12:48:00 Test Item Value Reference Range Interpretation Comments Alk Phos (test code = Alk Phos) 50 39-136 [facility]2015-04-29 12:48:00 Test Item Value Reference Range Interpretation Comments Bili Total (test code = Bili Total) 1.0 0.2-1.3 [facility]2015-04-29 12:48:00 Test Item Value Reference Range Interpretation Comments Albumin Lvl (test code = Albumin Lvl) 3.6 3.5-5.0 [facility]2015-04-29 12:48:00 Test Item Value Reference Range Interpretation Comments CO2 (test code = CO2) 33 24-32 [facility]2015-04-29 12:48:00 Test Item Value Reference Range Interpretation Comments Total Protein (test code = Total 6.4 6.4-8.4 Protein) [facility]2015-04-29 12:48:00 Test Item Value Reference Range Interpretation Comments ALT (test code = ALT) 84 See_Comment [Auto mated message] The system which ge nerated this result transmit rafael reference range : <=65. The reference range was not used to interpr et this result as josi l/abnormal. [facility]2015-04-29 12:48:00 Test Item Value Reference Range Interpretation Comments AST (test code = AST) 92 See_Comment [Auto mated message] The system which ge nerated this result transmit rafael reference range : <=37. The reference range was not used to interpr et this result as josi l/abnormal. [facility]2015-04-29 12:48:00 Test Item Value Reference Range Interpretation Comments Glucose Lvl (test code = Glucose Lvl) 105 70-99 [facility]2015-04-29 12:48:00 Test Item Value Reference Range Interpretation Comments BUN (test code = BUN) 30 7-22 [facility]2015-04-29 12:48:00 Test Item Value Reference Range Interpretation Comments eGFR (test code = eGFR) [address] [place] 599625-04-29 12:48:00 Test Item Value Reference Range Interpretation Comments Potassium Lvl (test code = Potassium 3.1 3.5-5.1 Lvl) [facility]2015-04-29 12:48:00 Test Item Value Reference Range Interpretation Comments Calcium Lvl (test code = Calcium Lvl) 8.3 8.5-10.5 [facility]2015-04-29 12:48:00 Test Item Value Reference Range Interpretation Comments Chloride Lvl (test code = Chloride Lvl) 96 95-109 [facility]2015-04-29 12:48:00 Test Item Value Reference Range Interpretation Comments Sodium Lvl (test code = Sodium Lvl) 136 135-145 [facility]2015-04-29 12:48:00 Test Item Value Reference Range Interpretation Comments Creatinine Lvl (test code = Creatinine 1.3 0.5-1.4 Lvl) [facility]2015-04-29 12:48:00 Test Item Value Reference Range Interpretation Comments Globulin (test code = Globulin) 2.8 2.0-4.0 [facility]2015-04-29 12:48:00 Test Item Value Reference Range Interpretation Comments A/G Ratio (test code = A/G Ratio) 1.3 0.7-1.6 [facility]2015-04-29 12:48:00 Test Item Value Reference Range Interpretation Comments B/C Ratio (test code = B/C Ratio) 23 6-25 [facility]2015-04-29 12:48:00 Test Item Value Reference Range Interpretation Comments AGAP (test code = AGAP) 10.1 10.0-20.0 [facility] TempleAolcdcnRWMDZDLWZQ2373-85-61 12:48:00 Test Item Value Reference Range Interpretation Comments Macrocyte (test code = 1+ *ABN*(10/30/14 Macrocyte) 7:48 AM) [facility] TempleFvratsnMWBYXSEVCA3303-82-56 12:48:00 Test Item Value Reference Range Interpretation Comments Segs-Bands # (test code = Segs-Bands #) 5.5 1.5-8.1 [facility] TempleUulbkkdLDBUYKAZLU2120-95-96 12:48:00 Test Item Value Reference Range Interpretation Comments Basophils (test code = 0.7 See_Comment [Aut omated message] The Basophils) system which ge nerated this result tra nsmitted reference range : <=1.0. The reference r genesis was not used to int erpret this result as normal/abnormal . [facility] TempleRpxfaltPZGTHGNQIS0375-99-85 12:48:00 Test Item Value Reference Range Interpretation Comments Eosinophils (test code = 1.4 See_Comment [A utomated message] The Eosinophils) system which ge nerated this result tra nsmitted reference range : <=4.0. The reference r genesis was not used to int erpret this result as normal/abnormal . [facility] TempleVddndkjCGBZDRZXFP0667-23-83 12:48:00 Test Item Value Reference Range Interpretation Comments Basophils # (test code 0.1 See_Comment [Aut omated message] The = Basophils #) system which generated this result tra nsmitted reference range : <=0.2. The reference r genesis was not used to int erpret this result as normal/abnormal . [facility] TempleJqhumflMLYAPYRQJM2954-48-75 12:48:00 Test Item Value Reference Range Interpretation Comments Eosinophils # (test code 0.1 See_Comment [A utomated message] The = Eosinophils #) system whic h generated this result tra nsmitted reference range : <=0.5. The reference r genesis was not used to int erpret this result as normal/abnormal . [facility] TempleYlmtabmRFSIIBCGEU4801-91-99 12:48:00 Test Item Value Reference Range Interpretation Comments Lymphocytes # (test code = Lymphocytes 1.6 1.0-5.5 #) [facility] TempleYojycflCRTCOWUAXL4663-16-40 12:48:00 Test Item Value Reference Range Interpretation Comments Monocytes # (test code 0.5 See_Comment [Aut omated message] The = Monocytes #) system which generated this result tra nsmitted reference range : <=0.8. The reference r genesis was not used to int erpret this result as normal/abnormal . [facility] TempleLxcqpktAJVDJLBTCG7788-52-64 12:48:00 Test Item Value Reference Range Interpretation Comments Monocytes (test code = Monocytes) 6.7 2.0-12.0 [facility] TempleDuigjtkAPKMIYMWDV4664-29-99 12:48:00 Test Item Value Reference Range Interpretation Comments Lymphocytes (test code = Lymphocytes) 20.3 20.0-40.0 [facility] TempleLjqtvmqIDAKWENAMQ6363-05-51 12:48:00 Test Item Value Reference Range Interpretation Comments Segs (test code = Segs) 70.9 45.0-75.0 [facility] TempleEvhvpriAZNBDKVMJU7246-51-83 12:48:00 Test Item Value Reference Range Interpretation Comments RDW (test code = RDW) 12.9 11.5-14.5 [facility] TempleIgodbgmGGZZETWAHX1207-90-29 12:48:00 Test Item Value Reference Range Interpretation Comments Hgb (test code = Hgb) 12.8 12.0-16.0 [facility] TempleYilwjjzSHCTXUWZFM1094-88-07 12:48:00 Test Item Value Reference Range Interpretation Comments RBC (test code = RBC) 3.56 4.20-5.40 [facility] TempleWjozcnmUYWDOHARAV1742-13-42 12:48:00 Test Item Value Reference Range Interpretation Comments MPV (test code = MPV) 8.3 7.4-10.4 [facility] TempleXpvtkyrBQMCOHINAD9897-58-29 12:48:00 Test Item Value Reference Range Interpretation Comments Platelet (test code = Platelet) 163 133-450 [facility] TempleBhnwrhxZOSFTBDYAS7255-62-17 12:48:00 Test Item Value Reference Range Interpretation Comments MCV (test code = MCV) 103.3 80.0-98.0 [facility] TempleYrjxrgoLNDWLHEUDN4632-40-07 12:48:00 Test Item Value Reference Range Interpretation Comments Hct (test code = Hct) 36.8 36.0-48.0 [facility] TempleZakpkkzQVAIBZXJVG4488-56-26 12:48:00 Test Item Value Reference Range Interpretation Comments MCHC (test code = MCHC) 34.9 32.0-36.0 [facility] TempleWapmddjXZVSWFAMRN6801-62-10 12:48:00 Test Item Value Reference Range Interpretation Comments MCH (test code = MCH) 36.1 pg 27.0-31.0 [facility] TempleVlottkgQGQRHXNLKL4347-91-06 12:48:00 Test Item Value Reference Range Interpretation Comments WBC (test code = WBC) 7.8 3.7-10.4 [facility]2015-04-29 12:48:00 Test Item Value Reference Range Interpretation Comments Lipase Lvl (test code = Lipase Lvl) 9493 95-035 [facility]2015-04-29 12:48:00 Test Item Value Reference Range Interpretation Comments Alk Phos (test code = Alk Phos) 50 39-136 [facility]2015-04-29 12:48:00 Test Item Value Reference Range Interpretation Comments Bili Total (test code = Bili Total) 1.0 0.2-1.3 [facility]2015-04-29 12:48:00 Test Item Value Reference Range Interpretation Comments Albumin Lvl (test code = Albumin Lvl) 3.6 3.5-5.0 [facility]2015-04-29 12:48:00 Test Item Value Reference Range Interpretation Comments CO2 (test code = CO2) 33 24-32 [facility]2015-04-29 12:48:00 Test Item Value Reference Range Interpretation Comments Total Protein (test code = Total 6.4 6.4-8.4 Protein) [facility]2015-04-29 12:48:00 Test Item Value Reference Range Interpretation Comments ALT (test code = ALT) 84 See_Comment [Auto mated message] The system which ge nerated this result transmit rafael reference range : <=65. The reference range was not used to interpr et this result as josi l/abnormal. [facility]2015-04-29 12:48:00 Test Item Value Reference Range Interpretation Comments AST (test code = AST) 92 See_Comment [Auto mated message] The system which ge nerated this result transmit rafael reference range : <=37. The reference range was not used to interpr et this result as josi l/abnormal. [facility]2015-04-29 12:48:00 Test Item Value Reference Range Interpretation Comments Glucose Lvl (test code = Glucose Lvl) 105 70-99 [facility]2015-04-29 12:48:00 Test Item Value Reference Range Interpretation Comments BUN (test code = BUN) 30 7-22 [facility]2015-04-29 12:48:00 Test Item Value Reference Range Interpretation Comments eGFR (test code = eGFR) 46 [facility]2015-04-29 12:48:00 Test Item Value Reference Range Interpretation Comments Potassium Lvl (test code = Potassium 3.1 3.5-5.1 Lvl) [facility]2015-04-29 12:48:00 Test Item Value Reference Range Interpretation Comments Calcium Lvl (test code = Calcium Lvl) 8.3 8.5-10.5 [facility]2015-04-29 12:48:00 Test Item Value Reference Range Interpretation Comments Chloride Lvl (test code = Chloride Lvl) 96 95-109 [facility]2015-04-29 12:48:00 Test Item Value Reference Range Interpretation Comments Sodium Lvl (test code = Sodium Lvl) 136 135-145 [facility]2015-04-29 12:48:00 Test Item Value Reference Range Interpretation Comments Creatinine Lvl (test code = Creatinine 1.3 0.5-1.4 Lvl) [facility]2015-04-29 12:48:00 Test Item Value Reference Range Interpretation Comments Globulin (test code = Globulin) 2.8 2.0-4.0 [facility]2015-04-29 12:48:00 Test Item Value Reference Range Interpretation Comments A/G Ratio (test code = A/G Ratio) 1.3 0.7-1.6 [facility]2015-04-29 12:48:00 Test Item Value Reference Range Interpretation Comments B/C Ratio (test code = B/C Ratio) 23 6-25 [facility]2015-04-29 12:48:00 Test Item Value Reference Range Interpretation Comments AGAP (test code = AGAP) 10.1 10.0-20.0 [facility] TempleIdpzurzMKVNWIQPTX6223-07-58 12:48:00 Test Item Value Reference Range Interpretation Comments Macrocyte (test code = 1+ *ABN*(10/30/14 Macrocyte) 7:48 AM) [facility] TempleYzrpykwXDEGKKZWRT4004-72-83 12:48:00 Test Item Value Reference Range Interpretation Comments Segs-Bands # (test code = Segs-Bands #) 5.5 1.5-8.1 [facility] TempleHqzuyimZFMYUDFOTA1510-08-08 12:48:00 Test Item Value Reference Range Interpretation Comments Basophils (test code = 0.7 See_Comment [Aut omated message] The Basophils) system which ge nerated this result tra nsmitted reference range : <=1.0. The reference r genesis was not used to int erpret this result as normal/abnormal . [facility] TempleUpjllwfCUVKBGYPSA9881-90-82 12:48:00 Test Item Value Reference Range Interpretation Comments Eosinophils (test code = 1.4 See_Comment [A utomated message] The Eosinophils) system which ge nerated this result tra nsmitted reference range : <=4.0. The reference r genesis was not used to int erpret this result as normal/abnormal . [facility] TempleYeuvvtnSJWKTNJNWV6124-19-45 12:48:00 Test Item Value Reference Range Interpretation Comments Basophils # (test code 0.1 See_Comment [Aut omated message] The = Basophils #) system which generated this result tra nsmitted reference range : <=0.2. The reference r genesis was not used to int erpret this result as normal/abnormal . [facility] TempleDhwmovaXBXGMNOASI2651-67-30 12:48:00 Test Item Value Reference Range Interpretation Comments Eosinophils # (test code 0.1 See_Comment [A utomated message] The = Eosinophils #) system whic h generated this result tra nsmitted reference range : <=0.5. The reference r genesis was not used to int erpret this result as normal/abnormal . [facility] TempleEdagugxVQGRFBGFUT9970-11-39 12:48:00 Test Item Value Reference Range Interpretation Comments Lymphocytes # (test code = Lymphocytes 1.6 1.0-5.5 #) [facility] TempleWfonuovPEKIHTRRND7808-16-40 12:48:00 Test Item Value Reference Range Interpretation Comments Monocytes # (test code 0.5 See_Comment [Aut omated message] The = Monocytes #) system which generated this result tra nsmitted reference range : <=0.8. The reference r genesis was not used to int erpret this result as normal/abnormal . [facility] TempleZerevdzQRWHCQKNBQ7338-81-94 12:48:00 Test Item Value Reference Range Interpretation Comments Monocytes (test code = Monocytes) 6.7 2.0-12.0 [facility] TempleHiclcofLUXXLGWOWR9205-69-73 12:48:00 Test Item Value Reference Range Interpretation Comments Lymphocytes (test code = Lymphocytes) 20.3 20.0-40.0 [facility] TempleOvbrmwnKESDPYJOEL5703-67-58 12:48:00 Test Item Value Reference Range Interpretation Comments Segs (test code = Segs) 70.9 45.0-75.0 [facility] TempleIkbkdwuNUOTCTSBEV1472-25-13 12:48:00 Test Item Value Reference Range Interpretation Comments RDW (test code = RDW) 12.9 11.5-14.5 [facility] TempleYvolupsIFJBDPELIR6900-50-98 12:48:00 Test Item Value Reference Range Interpretation Comments Hgb (test code = Hgb) 12.8 12.0-16.0 [facility] TempleLqlskxhJMQLYJXLRA5334-56-64 12:48:00 Test Item Value Reference Range Interpretation Comments RBC (test code = RBC) 3.56 4.20-5.40 [facility] TempleIreyethSONPBCIFGF7349-95-71 12:48:00 Test Item Value Reference Range Interpretation Comments MPV (test code = MPV) 8.3 7.4-10.4 [facility] TempleKsdfckgAWBLGDSFVL9650-85-96 12:48:00 Test Item Value Reference Range Interpretation Comments Platelet (test code = Platelet) 163 133-450 [facility] TempleDqowhsiESRPNRWKAB2795-28-28 12:48:00 Test Item Value Reference Range Interpretation Comments MCV (test code = MCV) 103.3 80.0-98.0 [facility] TempleJlempdcNCYHZCJIUA2354-15-19 12:48:00 Test Item Value Reference Range Interpretation Comments Hct (test code = Hct) 36.8 36.0-48.0 [facility] TempleBlwtskwACBFOPJGQN3830-63-11 12:48:00 Test Item Value Reference Range Interpretation Comments MCHC (test code = MCHC) 34.9 32.0-36.0 [facility] TempleAncyrjvFNMNCFFQKW8300-54-16 12:48:00 Test Item Value Reference Range Interpretation Comments MCH (test code = MCH) 36.1 pg 27.0-31.0 [facility] TempleSrnkqbbZUWMHDAFVK3433-32-08 12:48:00 Test Item Value Reference Range Interpretation Comments WBC (test code = WBC) 7.8 3.7-10.4 [facility]2015-04-29 12:48:00 Test Item Value Reference Range Interpretation Comments Lipase Lvl (test code = Lipase Lvl) 1352 73393 [facility]2015-04-29 12:48:00 Test Item Value Reference Range Interpretation Comments Alk Phos (test code = Alk Phos) 50 39-136 [facility]2015-04-29 12:48:00 Test Item Value Reference Range Interpretation Comments Bili Total (test code = Bili Total) 1.0 0.2-1.3 [facility]2015-04-29 12:48:00 Test Item Value Reference Range Interpretation Comments Albumin Lvl (test code = Albumin Lvl) 3.6 3.5-5.0 [facility]2015-04-29 12:48:00 Test Item Value Reference Range Interpretation Comments CO2 (test code = CO2) 33 24-32 [facility]2015-04-29 12:48:00 Test Item Value Reference Range Interpretation Comments Total Protein (test code = Total 6.4 6.4-8.4 Protein) [facility]2015-04-29 12:48:00 Test Item Value Reference Range Interpretation Comments ALT (test code = ALT) 84 See_Comment [Auto mated message] The system which ge nerated this result transmit rafael reference range : <=65. The reference range was not used to interpr et this result as josi l/abnormal. [facility]2015-04-29 12:48:00 Test Item Value Reference Range Interpretation Comments AST (test code = AST) 92 See_Comment [Auto mated message] The system which ge nerated this result transmit rafael reference range : <=37. The reference range was not used to interpr et this result as josi l/abnormal. [facility]2015-04-29 12:48:00 Test Item Value Reference Range Interpretation Comments Glucose Lvl (test code = Glucose Lvl) 105 70-99 [facility]2015-04-29 12:48:00 Test Item Value Reference Range Interpretation Comments BUN (test code = BUN) 30 7-22 [facility] [place]2015-04-29 12:48:00 Test Item Value Reference Range Interpretation Comments eGFR (test code = eGFR) 46 [facility] [place]2015-04-29 12:48:00 Test Item Value Reference Range Interpretation Comments Potassium Lvl (test code = Potassium 3.1 3.5-5.1 Lvl) [facility] [place]2015-04-29 12:48:00 Test Item Value Reference Range Interpretation Comments Calcium Lvl (test code = Calcium Lvl) 8.3 8.5-10.5 [place] 599625-04-29 12:48:00 Test Item Value Reference Range Interpretation Comments Chloride Lvl (test code = Chloride Lvl) 96 95-109 [facility] [place]2015-04-29 12:48:00 Test Item Value Reference Range Interpretation Comments Sodium Lvl (test code = Sodium Lvl) 136 135-145 [facility] [place]2015-04-29 12:48:00 Test Item Value Reference Range Interpretation Comments Creatinine Lvl (test code = Creatinine 1.3 0.5-1.4 Lvl) [facility] [place]2015-04-29 12:48:00 Test Item Value Reference Range Interpretation Comments Globulin (test code = Globulin) 2.8 2.0-4.0 [facility] [place]2015-04-29 12:48:00 Test Item Value Reference Range Interpretation Comments A/G Ratio (test code = A/G Ratio) 1.3 0.7-1.6 [facility] [place]2015-04-29 12:48:00 Test Item Value Reference Range Interpretation Comments B/C Ratio (test code = B/C Ratio) 23 6-25 [facility] [place]2015-04-29 12:48:00 Test Item Value Reference Range Interpretation Comments AGAP (test code = AGAP) 10.1 10.0-20.0 [facility] TempleAfikkacWONLSBJWLO5644-63-11 12:48:00 Test Item Value Reference Range Interpretation Comments Macrocyte (test code = 1+ *ABN*(10/30/14 Macrocyte) 7:48 AM) [facility] TempleAzbetqpEFTVWULHNT1895-92-40 12:48:00 Test Item Value Reference Range Interpretation Comments Segs-Bands # (test code = Segs-Bands #) 5.5 1.5-8.1 [facility] TemplePriuvnvTUEKDADYUR1091-81-12 12:48:00 Test Item Value Reference Range Interpretation Comments Basophils (test code = 0.7 See_Comment [Aut omated message] The Basophils) system which ge nerated this result tra nsmitted reference range : <=1.0. The reference r genesis was not used to int erpret this result as normal/abnormal . [facility] TempleMehjqayXCKSGTOJNZ7307-86-86 12:48:00 Test Item Value Reference Range Interpretation Comments Eosinophils (test code = 1.4 See_Comment [A utomated message] The Eosinophils) system which ge nerated this result tra nsmitted reference range : <=4.0. The reference r genesis was not used to int erpret this result as normal/abnormal . [facility] TempleQzudxbrGKFKGGONEL3376-89-87 12:48:00 Test Item Value Reference Range Interpretation Comments Basophils # (test code 0.1 See_Comment [Aut omated message] The = Basophils #) system which generated this result tra nsmitted reference range : <=0.2. The reference r genesis was not used to int erpret this result as normal/abnormal . [facility] TempleHapplcyIAENOANLKL4068-39-04 12:48:00 Test Item Value Reference Range Interpretation Comments Eosinophils # (test code 0.1 See_Comment [A utomated message] The = Eosinophils #) system whic h generated this result tra nsmitted reference range : <=0.5. The reference r genesis was not used to int erpret this result as normal/abnormal . [facility] TempleYhwuncdATSFVDFTKS9772-22-38 12:48:00 Test Item Value Reference Range Interpretation Comments Lymphocytes # (test code = Lymphocytes 1.6 1.0-5.5 #) [facility] TempleZxcuqsgRDZMNFPAJI7660-39-02 12:48:00 Test Item Value Reference Range Interpretation Comments Monocytes # (test code 0.5 See_Comment [Aut omated message] The = Monocytes #) system which generated this result tra nsmitted reference range : <=0.8. The reference r genesis was not used to int erpret this result as normal/abnormal . [facility] TempleJuhsghxIVIXPOQJKO6145-14-44 12:48:00 Test Item Value Reference Range Interpretation Comments Monocytes (test code = Monocytes) 6.7 2.0-12.0 [facility] TempleSuggwmzDGMHPDARCD1233-79-26 12:48:00 Test Item Value Reference Range Interpretation Comments Lymphocytes (test code = Lymphocytes) 20.3 20.0-40.0 [facility] TempleZlwthicFVZTXCRFJR6922-81-34 12:48:00 Test Item Value Reference Range Interpretation Comments Segs (test code = Segs) 70.9 45.0-75.0 [facility] TempleRyyqcbpFJGYLOWZSJ0422-96-94 12:48:00 Test Item Value Reference Range Interpretation Comments RDW (test code = RDW) 12.9 11.5-14.5 [facility] TempleNcwljrdLETPUONXAC8860-42-45 12:48:00 Test Item Value Reference Range Interpretation Comments Hgb (test code = Hgb) 12.8 12.0-16.0 [facility] TempleYqcogylGZKCTLIDUJ3218-14-81 12:48:00 Test Item Value Reference Range Interpretation Comments RBC (test code = RBC) 3.56 4.20-5.40 [facility] TempleSnetscvQHIRVAJINB8615-12-75 12:48:00 Test Item Value Reference Range Interpretation Comments MPV (test code = MPV) 8.3 7.4-10.4 [facility] TempleOibbwqwDVSNANFQAQ3862-90-92 12:48:00 Test Item Value Reference Range Interpretation Comments Platelet (test code = Platelet) 163 133-450 [facility] TempleKrutgddCNPZLSOAPB2552-19-22 12:48:00 Test Item Value Reference Range Interpretation Comments MCV (test code = MCV) 103.3 80.0-98.0 [facility] TempleGxaguftMPRVVFTIMK5376-64-73 12:48:00 Test Item Value Reference Range Interpretation Comments Hct (test code = Hct) 36.8 36.0-48.0 [facility] TempleMvoqpzpOTZMIOCRHO4969-59-75 12:48:00 Test Item Value Reference Range Interpretation Comments MCHC (test code = MCHC) 34.9 32.0-36.0 [facility] TempleCrzaoreGKMQORGBVZ3185-20-56 12:48:00 Test Item Value Reference Range Interpretation Comments MCH (test code = MCH) 36.1 pg 27.0-31.0 [facility] TempleMwiwsqbGMDQTWPZWM5360-39-30 12:48:00 Test Item Value Reference Range Interpretation Comments WBC (test code = WBC) 7.8 3.7-10.4 [facility] [place]2015-04-29 12:48:00 Test Item Value Reference Range Interpretation Comments Lipase Lvl (test code = Lipase Lvl) 1352 73-393 [facility]2015-04-29 12:48:00 Test Item Value Reference Range Interpretation Comments Alk Phos (test code = Alk Phos) 50 39-136 [facility] [place]2015-04-29 12:48:00 Test Item Value Reference Range Interpretation Comments Bili Total (test code = Bili Total) 1.0 0.2-1.3 [facility]2015-04-29 12:48:00 Test Item Value Reference Range Interpretation Comments Albumin Lvl (test code = Albumin Lvl) 3.6 3.5-5.0 [facility]2015-04-29 12:48:00 Test Item Value Reference Range Interpretation Comments CO2 (test code = CO2) 33 24-32 [facility]2015-04-29 12:48:00 Test Item Value Reference Range Interpretation Comments Total Protein (test code = Total 6.4 6.4-8.4 Protein) [facility]2015-04-29 12:48:00 Test Item Value Reference Range Interpretation Comments ALT (test code = ALT) 84 See_Comment [Auto mated message] The system which ge nerated this result transmit rafael reference range : <=65. The reference range was not used to interpr et this result as josi l/abnormal. [facility]2015-04-29 12:48:00 Test Item Value Reference Range Interpretation Comments AST (test code = AST) 92 See_Comment [Auto mated message] The system which ge nerated this result transmit rafael reference range : <=37. The reference range was not used to interpr et this result as josi l/abnormal. [facility]2015-04-29 12:48:00 Test Item Value Reference Range Interpretation Comments Glucose Lvl (test code = Glucose Lvl) 105 70-99 [facility]2015-04-29 12:48:00 Test Item Value Reference Range Interpretation Comments BUN (test code = BUN) 30 7-22 [facility]2015-04-29 12:48:00 Test Item Value Reference Range Interpretation Comments eGFR (test code = eGFR) 46 [facility]2015-04-29 12:48:00 Test Item Value Reference Range Interpretation Comments Potassium Lvl (test code = Potassium 3.1 3.5-5.1 Lvl) [facility]2015-04-29 12:48:00 Test Item Value Reference Range Interpretation Comments Calcium Lvl (test code = Calcium Lvl) 8.3 8.5-10.5 [facility]2015-04-29 12:48:00 Test Item Value Reference Range Interpretation Comments Chloride Lvl (test code = Chloride Lvl) 96 95-109 [facility]2015-04-29 12:48:00 Test Item Value Reference Range Interpretation Comments Sodium Lvl (test code = Sodium Lvl) 136 135-145 [facility]2015-04-29 12:48:00 Test Item Value Reference Range Interpretation Comments Creatinine Lvl (test code = Creatinine 1.3 0.5-1.4 Lvl) [facility]2015-04-29 12:48:00 Test Item Value Reference Range Interpretation Comments Globulin (test code = Globulin) 2.8 2.0-4.0 [facility]2015-04-29 12:48:00 Test Item Value Reference Range Interpretation Comments A/G Ratio (test code = A/G Ratio) 1.3 0.7-1.6 [facility] [place]2015-04-29 12:48:00 Test Item Value Reference Range Interpretation Comments B/C Ratio (test code = B/C Ratio) 23 6-25 [facility]2015-04-29 12:48:00 Test Item Value Reference Range Interpretation Comments AGAP (test code = AGAP) 10.1 10.0-20.0 [facility] TempleZljzruwUMTICFZBXK4353-78-47 12:48:00 Test Item Value Reference Range Interpretation Comments Macrocyte (test code = 1+ *ABN*(10/30/14 Macrocyte) 7:48 AM) [facility] TempleSproklfHQPMRCXNIO7375-15-82 12:48:00 Test Item Value Reference Range Interpretation Comments Segs-Bands # (test code = Segs-Bands #) 5.5 1.5-8.1 [facility] TempleLemppojRLCPDECCPM9232-83-50 12:48:00 Test Item Value Reference Range Interpretation Comments Basophils (test code = 0.7 See_Comment [Aut omated message] The Basophils) system which ge nerated this result tra nsmitted reference range : <=1.0. The reference r genesis was not used to int erpret this result as normal/abnormal . [facility] TempleQcvqyizDWHQYDUQEW5041-82-76 12:48:00 Test Item Value Reference Range Interpretation Comments Eosinophils (test code = 1.4 See_Comment [A utomated message] The Eosinophils) system which ge nerated this result tra nsmitted reference range : <=4.0. The reference r genesis was not used to int erpret this result as normal/abnormal . [facility] TempleWgbbleiGDKMAPRJJU2625-88-78 12:48:00 Test Item Value Reference Range Interpretation Comments Basophils # (test code 0.1 See_Comment [Aut omated message] The = Basophils #) system which generated this result tra nsmitted reference range : <=0.2. The reference r genesis was not used to int erpret this result as normal/abnormal . [facility] TempleRrmaulnYKCUHHXXFU5795-07-84 12:48:00 Test Item Value Reference Range Interpretation Comments Eosinophils # (test code 0.1 See_Comment [A utomated message] The = Eosinophils #) system whic h generated this result tra nsmitted reference range : <=0.5. The reference r genesis was not used to int erpret this result as normal/abnormal . [facility] TempleRxgbxalINGDVWZGEX0305-79-68 12:48:00 Test Item Value Reference Range Interpretation Comments Lymphocytes # (test code = Lymphocytes 1.6 1.0-5.5 #) [facility] TempleEqxarvdVLVCMYJUWN9628-52-62 12:48:00 Test Item Value Reference Range Interpretation Comments Monocytes # (test code 0.5 See_Comment [Aut omated message] The = Monocytes #) system which generated this result tra nsmitted reference range : <=0.8. The reference r genesis was not used to int erpret this result as normal/abnormal . [facility] TempleQcwgdkmQEJUKOBWHF0988-08-69 12:48:00 Test Item Value Reference Range Interpretation Comments Monocytes (test code = Monocytes) 6.7 2.0-12.0 [facility] TempleBwnjzgoGQTPKRXZFK7312-03-73 12:48:00 Test Item Value Reference Range Interpretation Comments Lymphocytes (test code = Lymphocytes) 20.3 20.0-40.0 [facility] TempleIcaouhaRQEHSZHATG7392-76-63 12:48:00 Test Item Value Reference Range Interpretation Comments Segs (test code = Segs) 70.9 45.0-75.0 [facility] TempleFleljltRWRRDRAJPN9824-04-66 12:48:00 Test Item Value Reference Range Interpretation Comments RDW (test code = RDW) 12.9 11.5-14.5 [facility] TempleSvqahqnCHOBPVMOMH4871-73-84 12:48:00 Test Item Value Reference Range Interpretation Comments Hgb (test code = Hgb) 12.8 12.0-16.0 [facility] TempleRhlvnqoTDQJVLFMAD0946-54-42 12:48:00 Test Item Value Reference Range Interpretation Comments RBC (test code = RBC) 3.56 4.20-5.40 [facility] TempleQymjzatEZHTLCXVHU0422-58-95 12:48:00 Test Item Value Reference Range Interpretation Comments MPV (test code = MPV) 8.3 7.4-10.4 [facility] TempleWgobtmoFDMAPDIXQR7102-82-89 12:48:00 Test Item Value Reference Range Interpretation Comments Platelet (test code = Platelet) 163 133-450 [facility] TempleUnltpkqPDEGPUNKHD7577-66-58 12:48:00 Test Item Value Reference Range Interpretation Comments MCV (test code = MCV) 103.3 80.0-98.0 [facility] TempleZypggwqDDIZNDZZXZ7754-67-91 12:48:00 Test Item Value Reference Range Interpretation Comments Hct (test code = Hct) 36.8 36.0-48.0 [facility] TemplePqsnbgsVZEJQZWAOP8979-83-99 12:48:00 Test Item Value Reference Range Interpretation Comments MCHC (test code = MCHC) 34.9 32.0-36.0 [facility] TempleYcnmgszNEAAEQAKAH9894-19-17 12:48:00 Test Item Value Reference Range Interpretation Comments MCH (test code = MCH) 36.1 pg 27.0-31.0 [facility] TempleJbithhlFGEYJNLZRN3045-07-14 12:48:00 Test Item Value Reference Range Interpretation Comments WBC (test code = WBC) 7.8 3.7-10.4 [facility]2015-04-29 12:48:00 Test Item Value Reference Range Interpretation Comments Lipase Lvl (test code = Lipase Lvl) 1352 73-393 [facility]2015-04-29 12:48:00 Test Item Value Reference Range Interpretation Comments Alk Phos (test code = Alk Phos) 50 39-136 [facility]2015-04-29 12:48:00 Test Item Value Reference Range Interpretation Comments Bili Total (test code = Bili Total) 1.0 0.2-1.3 [facility]2015-04-29 12:48:00 Test Item Value Reference Range Interpretation Comments Albumin Lvl (test code = Albumin Lvl) 3.6 3.5-5.0 [facility]2015-04-29 12:48:00 Test Item Value Reference Range Interpretation Comments CO2 (test code = CO2) 33 24-32 [facility]2015-04-29 12:48:00 Test Item Value Reference Range Interpretation Comments Total Protein (test code = Total 6.4 6.4-8.4 Protein) [facility]2015-04-29 12:48:00 Test Item Value Reference Range Interpretation Comments ALT (test code = ALT) 84 See_Comment [Auto mated message] The system which ge nerated this result transmit rafael reference range : <=65. The reference range was not used to interpr et this result as josi l/abnormal. [facility]2015-04-29 12:48:00 Test Item Value Reference Range Interpretation Comments AST (test code = AST) 92 See_Comment [Auto mated message] The system which ge nerated this result transmit rafael reference range : <=37. The reference range was not used to interpr et this result as josi l/abnormal. [facility]2015-04-29 12:48:00 Test Item Value Reference Range Interpretation Comments Glucose Lvl (test code = Glucose Lvl) 105 70-99 [facility]2015-04-29 12:48:00 Test Item Value Reference Range Interpretation Comments BUN (test code = BUN) 30 7-22 [facility]2015-04-29 12:48:00 Test Item Value Reference Range Interpretation Comments eGFR (test code = eGFR) 46 [facility]2015-04-29 12:48:00 Test Item Value Reference Range Interpretation Comments Potassium Lvl (test code = Potassium 3.1 3.5-5.1 Lvl) [facility]2015-04-29 12:48:00 Test Item Value Reference Range Interpretation Comments Calcium Lvl (test code = Calcium Lvl) 8.3 8.5-10.5 [facility]2015-04-29 12:48:00 Test Item Value Reference Range Interpretation Comments Chloride Lvl (test code = Chloride Lvl) 96 95-109 [facility]2015-04-29 12:48:00 Test Item Value Reference Range Interpretation Comments Sodium Lvl (test code = Sodium Lvl) 136 135-145 [facility]2015-04-29 12:48:00 Test Item Value Reference Range Interpretation Comments Creatinine Lvl (test code = Creatinine 1.3 0.5-1.4 Lvl) [facility]2015-04-29 12:48:00 Test Item Value Reference Range Interpretation Comments Globulin (test code = Globulin) 2.8 2.0-4.0 [facility]2015-04-29 12:48:00 Test Item Value Reference Range Interpretation Comments A/G Ratio (test code = A/G Ratio) 1.3 0.7-1.6 [facility]2015-04-29 12:48:00 Test Item Value Reference Range Interpretation Comments B/C Ratio (test code = B/C Ratio) 23 6-25 [facility]2015-04-29 12:48:00 Test Item Value Reference Range Interpretation Comments AGAP (test code = AGAP) 10.1 10.0-20.0 [facility] TempleFqlswreLNHGXOKVCJ3788-12-20 12:48:00 Test Item Value Reference Range Interpretation Comments Macrocyte (test code = 1+ *ABN*(10/30/14 Macrocyte) 7:48 AM) [facility] TempleKvwxvvvJHSYNPKWUX4705-98-10 12:48:00 Test Item Value Reference Range Interpretation Comments Segs-Bands # (test code = Segs-Bands #) 5.5 1.5-8.1 [facility] TempleVjqbwjxSAHTDIKECX9387-19-19 12:48:00 Test Item Value Reference Range Interpretation Comments Basophils (test code = 0.7 See_Comment [Aut omated message] The Basophils) system which ge nerated this result tra nsmitted reference range : <=1.0. The reference r genesis was not used to int erpret this result as normal/abnormal . [facility] TempleUpclquzEDCYAAPGOZ6366-67-78 12:48:00 Test Item Value Reference Range Interpretation Comments Eosinophils (test code = 1.4 See_Comment [A utomated message] The Eosinophils) system which ge nerated this result tra nsmitted reference range : <=4.0. The reference r genesis was not used to int erpret this result as normal/abnormal . [facility] TempleSreprgsWJUZCSPUEF0009-01-89 12:48:00 Test Item Value Reference Range Interpretation Comments Basophils # (test code 0.1 See_Comment [Aut omated message] The = Basophils #) system which generated this result tra nsmitted reference range : <=0.2. The reference r genesis was not used to int erpret this result as normal/abnormal . [facility] TempleDgrrhklTXNTQYMFPC8251-68-62 12:48:00 Test Item Value Reference Range Interpretation Comments Eosinophils # (test code 0.1 See_Comment [A utomated message] The = Eosinophils #) system whic h generated this result tra nsmitted reference range : <=0.5. The reference r genesis was not used to int erpret this result as normal/abnormal . [facility] TempleWcseudcMXAAKLEEON7902-24-45 12:48:00 Test Item Value Reference Range Interpretation Comments Lymphocytes # (test code = Lymphocytes 1.6 1.0-5.5 #) [facility] TempleGlqfefuSFFTVGPVZL5110-23-09 12:48:00 Test Item Value Reference Range Interpretation Comments Monocytes # (test code 0.5 See_Comment [Aut omated message] The = Monocytes #) system which generated this result tra nsmitted reference range : <=0.8. The reference r genesis was not used to int erpret this result as normal/abnormal . [facility] TempleGmkeqanAZCALTPIQG6799-60-32 12:48:00 Test Item Value Reference Range Interpretation Comments Monocytes (test code = Monocytes) 6.7 2.0-12.0 [facility] TemplePykdhehDMWKFYEGFO5239-08-17 12:48:00 Test Item Value Reference Range Interpretation Comments Lymphocytes (test code = Lymphocytes) 20.3 20.0-40.0 [facility] TempleCdbgnmxUEWIUYNTDS5573-76-07 12:48:00 Test Item Value Reference Range Interpretation Comments Segs (test code = Segs) 70.9 45.0-75.0 [facility] TempleHvupwkmNTXRQRGJBH6273-23-40 12:48:00 Test Item Value Reference Range Interpretation Comments RDW (test code = RDW) 12.9 11.5-14.5 [facility] TempleGrhwjddWKNKFJKRGZ8543-58-62 12:48:00 Test Item Value Reference Range Interpretation Comments Hgb (test code = Hgb) 12.8 12.0-16.0 [facility] TempleMhgtxcgIVBHUGLJTZ2292-49-94 12:48:00 Test Item Value Reference Range Interpretation Comments RBC (test code = RBC) 3.56 4.20-5.40 [facility] TempleYagqlptRUNWOASPDF6028-19-26 12:48:00 Test Item Value Reference Range Interpretation Comments MPV (test code = MPV) 8.3 7.4-10.4 [facility] TempleJokymgbCILTSFCYRB2581-94-49 12:48:00 Test Item Value Reference Range Interpretation Comments Platelet (test code = Platelet) 163 133-450 [facility] TempleVnqbdrhSKHANAJRFS8108-27-33 12:48:00 Test Item Value Reference Range Interpretation Comments MCV (test code = MCV) 103.3 80.0-98.0 [facility] TempleFvotsviMAEAORKTNT3803-59-52 12:48:00 Test Item Value Reference Range Interpretation Comments Hct (test code = Hct) 36.8 36.0-48.0 [facility] TempleCweodgiHZDSHPCHLI2263-32-66 12:48:00 Test Item Value Reference Range Interpretation Comments MCHC (test code = MCHC) 34.9 32.0-36.0 [facility] TempleGrithhwGFEHGDGRHG8104-57-56 12:48:00 Test Item Value Reference Range Interpretation Comments MCH (test code = MCH) 36.1 pg 27.0-31.0 [facility] TempleDrykfjoRBHGEZIWYX9383-05-10 12:48:00 Test Item Value Reference Range Interpretation Comments WBC (test code = WBC) 7.8 3.7-10.4 [facility]2015-04-29 12:48:00 Test Item Value Reference Range Interpretation Comments Lipase Lvl (test code = Lipase Lvl) 1352 73-393 [facility]2015-04-29 12:48:00 Test Item Value Reference Range Interpretation Comments Alk Phos (test code = Alk Phos) 50 39-136 [facility]2015-04-29 12:48:00 Test Item Value Reference Range Interpretation Comments Bili Total (test code = Bili Total) 1.0 0.2-1.3 [facility]2015-04-29 12:48:00 Test Item Value Reference Range Interpretation Comments Albumin Lvl (test code = Albumin Lvl) 3.6 3.5-5.0 [facility]2015-04-29 12:48:00 Test Item Value Reference Range Interpretation Comments CO2 (test code = CO2) 33 24-32 [facility]2015-04-29 12:48:00 Test Item Value Reference Range Interpretation Comments Total Protein (test code = Total 6.4 6.4-8.4 Protein) [facility]2015-04-29 12:48:00 Test Item Value Reference Range Interpretation Comments ALT (test code = ALT) 84 See_Comment [Auto mated message] The system which ge nerated this result transmit rafael reference range : <=65. The reference range was not used to interpr et this result as josi l/abnormal. [facility]2015-04-29 12:48:00 Test Item Value Reference Range Interpretation Comments AST (test code = AST) 92 See_Comment [Auto mated message] The system which ge nerated this result transmit rafael reference range : <=37. The reference range was not used to interpr et this result as josi l/abnormal. [facility]2015-04-29 12:48:00 Test Item Value Reference Range Interpretation Comments Glucose Lvl (test code = Glucose Lvl) 105 70-99 [facility]2015-04-29 12:48:00 Test Item Value Reference Range Interpretation Comments BUN (test code = BUN) 30 7-22 [facility]2015-04-29 12:48:00 Test Item Value Reference Range Interpretation Comments eGFR (test code = eGFR) 46 [facility]2015-04-29 12:48:00 Test Item Value Reference Range Interpretation Comments Potassium Lvl (test code = Potassium 3.1 3.5-5.1 Lvl) [facility]2015-04-29 12:48:00 Test Item Value Reference Range Interpretation Comments Calcium Lvl (test code = Calcium Lvl) 8.3 8.5-10.5 [facility]2015-04-29 12:48:00 Test Item Value Reference Range Interpretation Comments Chloride Lvl (test code = Chloride Lvl) 96 95-109 [facility]2015-04-29 12:48:00 Test Item Value Reference Range Interpretation Comments Sodium Lvl (test code = Sodium Lvl) 136 135-145 [facility]2015-04-29 12:48:00 Test Item Value Reference Range Interpretation Comments Creatinine Lvl (test code = Creatinine 1.3 0.5-1.4 Lvl) [facility]2015-04-29 12:48:00 Test Item Value Reference Range Interpretation Comments Globulin (test code = Globulin) 2.8 2.0-4.0 [facility]2015-04-29 12:48:00 Test Item Value Reference Range Interpretation Comments A/G Ratio (test code = A/G Ratio) 1.3 0.7-1.6 [facility]2015-04-29 12:48:00 Test Item Value Reference Range Interpretation Comments B/C Ratio (test code = B/C Ratio) 23 6-25 [facility]2015-04-29 12:48:00 Test Item Value Reference Range Interpretation Comments AGAP (test code = AGAP) 10.1 10.0-20.0 [facility] [id number] 12:48:00 Test Item Value Reference Range Interpretation Comments Macrocyte (test code = 1+ *ABN*(10/30/14 Macrocyte) 7:48 AM) [facility] [id number] 12:48:00 Test Item Value Reference Range Interpretation Comments Segs-Bands # (test code = Segs-Bands #) 5.5 1.5-8.1 [facility] [id number] 12:48:00 Test Item Value Reference Range Interpretation Comments Basophils (test code = 0.7 See_Comment [Aut omated message] The Basophils) system which ge nerated this result tra nsmitted reference range : <=1.0. The reference r genesis was not used to int erpret this result as normal/abnormal . [facility] [id number] 12:48:00 Test Item Value Reference Range Interpretation Comments Eosinophils (test code = 1.4 See_Comment [A utomated message] The Eosinophils) system which ge nerated this result tra nsmitted reference range : <=4.0. The reference r genesis was not used to int erpret this result as normal/abnormal . [facility] [id number] 12:48:00 Test Item Value Reference Range Interpretation Comments Basophils # (test code 0.1 See_Comment [Aut omated message] The = Basophils #) system which generated this result tra nsmitted reference range : <=0.2. The reference r genesis was not used to int erpret this result as normal/abnormal . [facility] [id number] 12:48:00 Test Item Value Reference Range Interpretation Comments Eosinophils # (test code 0.1 See_Comment [A utomated message] The = Eosinophils #) system ic h generated this result tra nsmitted reference range : <=0.5. The reference r genesis was not used to int erpret this result as normal/abnormal . [facility] [id number] 12:48:00 Test Item Value Reference Range Interpretation Comments Lymphocytes # (test code = Lymphocytes 1.6 1.0-5.5 #) [facility] [id number] 12:48:00 Test Item Value Reference Range Interpretation Comments Monocytes # (test code 0.5 See_Comment [Aut omated message] The = Monocytes #) system which generated this result tra nsmitted reference range : <=0.8. The reference r genesis was not used to int erpret this result as normal/abnormal . [facility] T[id number] 12:48:00 Test Item Value Reference Range Interpretation Comments Monocytes (test code = Monocytes) 6.7 2.0-12.0 [facility] [id number] 12:48:00 Test Item Value Reference Range Interpretation Comments Lymphocytes (test code = Lymphocytes) 20.3 20.0-40.0 [facility] [id number] 12:48:00 Test Item Value Reference Range Interpretation Comments Segs (test code = Segs) 70.9 45.0-75.0 [facility] TempleQdwfevzAAZWQXTXZG3587-17-14 12:48:00 Test Item Value Reference Range Interpretation Comments RDW (test code = RDW) 12.9 11.5-14.5 [facility] [id number] 12:48:00 Test Item Value Reference Range Interpretation Comments Hgb (test code = Hgb) 12.8 12.0-16.0 [facility] [id number] 12:48:00 Test Item Value Reference Range Interpretation Comments RBC (test code = RBC) 3.56 4.20-5.40 [facility] Temp[id number] 12:48:00 Test Item Value Reference Range Interpretation Comments MPV (test code = MPV) 8.3 7.4-10.4 [facility] [id number] 12:48:00 Test Item Value Reference Range Interpretation Comments Platelet (test code = Platelet) 163 133-450 [facility] TempleThfudeeOERNABUZPL1976-02-22 12:48:00 Test Item Value Reference Range Interpretation Comments MCV (test code = MCV) 103.3 80.0-98.0 [facility] [id number] 12:48:00 Test Item Value Reference Range Interpretation Comments Hct (test code = Hct) 36.8 36.0-48.0 [facility] [id number] 12:48:00 Test Item Value Reference Range Interpretation Comments MCHC (test code = MCHC) 34.9 32.0-36.0 [facility] [id number] 12:48:00 Test Item Value Reference Range Interpretation Comments MCH (test code = MCH) 36.1 pg 27.0-31.0 [facility] [id number] 12:48:00 Test Item Value Reference Range Interpretation Comments WBC (test code = WBC) 7.8 3.7-10.4 [facility] [id number] 12:48:00 Test Item Value Reference Range Interpretation Comments Monocytes (test code = Monocytes) 6.7 2.0-12.0 [facility] TempleUhvnxyqTBYMYXXIJI3602-09-19 12:48:00 Test Item Value Reference Range Interpretation Comments Lymphocytes (test code = Lymphocytes) 20.3 20.0-40.0 [facility] TempleWyaomugZUZTYQIWWN4815-16-08 12:48:00 Test Item Value Reference Range Interpretation Comments Segs (test code = Segs) 70.9 45.0-75.0 [facility] Temp[id number] 12:48:00 Test Item Value Reference Range Interpretation Comments RDW (test code = RDW) 12.9 11.5-14.5 [facility] Temple[id number] 12:48:00 Test Item Value Reference Range Interpretation Comments Hgb (test code = Hgb) 12.8 12.0-16.0 [facility] [id number] 12:48:00 Test Item Value Reference Range Interpretation Comments RBC (test code = RBC) 3.56 4.20-5.40 [facility] [id number] 12:48:00 Test Item Value Reference Range Interpretation Comments MPV (test code = MPV) 8.3 7.4-10.4 [facility] [id number] 12:48:00 Test Item Value Reference Range Interpretation Comments Platelet (test code = Platelet) 163 133-450 [facility] Temp[id number] 12:48:00 Test Item Value Reference Range Interpretation Comments MCV (test code = MCV) 103.3 80.0-98.0 [facility] TempleHaytokeUIGRBQZSMK1552-64-28 12:48:00 Test Item Value Reference Range Interpretation Comments Hct (test code = Hct) 36.8 36.0-48.0 [facility] [id number] 12:48:00 Test Item Value Reference Range Interpretation Comments MCHC (test code = MCHC) 34.9 32.0-36.0 [facility] [id number] 12:48:00 Test Item Value Reference Range Interpretation Comments MCH (test code = MCH) 36.1 pg 27.0-31.0 [facility] Temple[id number] 12:48:00 Test Item Value Reference Range Interpretation Comments WBC (test code = WBC) 7.8 3.7-10.4 [facility]2015-04-29 12:48:00 Test Item Value Reference Range Interpretation Comments Lipase Lvl (test code = Lipase Lvl) 1352 73-393 [facility]2015-04-29 12:48:00 Test Item Value Reference Range Interpretation Comments Alk Phos (test code = Alk Phos) 50 39-136 [facility]2015-04-29 12:48:00 Test Item Value Reference Range Interpretation Comments Bili Total (test code = Bili Total) 1.0 0.2-1.3 [facility]2015-04-29 12:48:00 Test Item Value Reference Range Interpretation Comments Albumin Lvl (test code = Albumin Lvl) 3.6 3.5-5.0 [facility]2015-04-29 12:48:00 Test Item Value Reference Range Interpretation Comments CO2 (test code = CO2) 33 24-32 [facility]2015-04-29 12:48:00 Test Item Value Reference Range Interpretation Comments Total Protein (test code = Total 6.4 6.4-8.4 Protein) [facility]2015-04-29 12:48:00 Test Item Value Reference Range Interpretation Comments ALT (test code = ALT) 84 See_Comment [Auto mated message] The system which ge nerated this result transmit rafael reference range : <=65. The reference range was not used to interpr et this result as josi l/abnormal. [facility]2015-04-29 12:48:00 Test Item Value Reference Range Interpretation Comments AST (test code = AST) 92 See_Comment [Auto mated message] The system which ge nerated this result transmit rafael reference range : <=37. The reference range was not used to interpr et this result as josi l/abnormal. [facility]2015-04-29 12:48:00 Test Item Value Reference Range Interpretation Comments Glucose Lvl (test code = Glucose Lvl) 105 70-99 [facility]2015-04-29 12:48:00 Test Item Value Reference Range Interpretation Comments BUN (test code = BUN) 30 7-22 [facility]2015-04-29 12:48:00 Test Item Value Reference Range Interpretation Comments eGFR (test code = eGFR) 46 [facility]2015-04-29 12:48:00 Test Item Value Reference Range Interpretation Comments Potassium Lvl (test code = Potassium 3.1 3.5-5.1 Lvl) [facility]2015-04-29 12:48:00 Test Item Value Reference Range Interpretation Comments Calcium Lvl (test code = Calcium Lvl) 8.3 8.5-10.5 [facility]2015-04-29 12:48:00 Test Item Value Reference Range Interpretation Comments Chloride Lvl (test code = Chloride Lvl) 96 95-109 [facility]2015-04-29 12:48:00 Test Item Value Reference Range Interpretation Comments Sodium Lvl (test code = Sodium Lvl) 136 135-145 [facility]2015-04-29 12:48:00 Test Item Value Reference Range Interpretation Comments Creatinine Lvl (test code = Creatinine 1.3 0.5-1.4 Lvl) [facility]2015-04-29 12:48:00 Test Item Value Reference Range Interpretation Comments Globulin (test code = Globulin) 2.8 2.0-4.0 [facility]2015-04-29 12:48:00 Test Item Value Reference Range Interpretation Comments A/G Ratio (test code = A/G Ratio) 1.3 0.7-1.6 [facility]2015-04-29 12:48:00 Test Item Value Reference Range Interpretation Comments B/C Ratio (test code = B/C Ratio) 23 6-25 [facility]2015-04-29 12:48:00 Test Item Value Reference Range Interpretation Comments AGAP (test code = AGAP) 10.1 10.0-20.0 [facility] [id number] 12:48:00 Test Item Value Reference Range Interpretation Comments Macrocyte (test code = 1+ *ABN*(10/30/14 Macrocyte) 7:48 AM) [facility] [id number] 12:48:00 Test Item Value Reference Range Interpretation Comments Segs-Bands # (test code = Segs-Bands #) 5.5 1.5-8.1 [facility] [id number] 12:48:00 Test Item Value Reference Range Interpretation Comments Basophils (test code = 0.7 See_Comment [Aut omated message] The Basophils) system which ge nerated this result tra nsmitted reference range : <=1.0. The reference r genesis was not used to int erpret this result as normal/abnormal . [facility] [id number] 12:48:00 Test Item Value Reference Range Interpretation Comments Eosinophils (test code = 1.4 See_Comment [A utomated message] The Eosinophils) system which ge nerated this result tra nsmitted reference range : <=4.0. The reference r genesis was not used to int erpret this result as normal/abnormal . [facility] [id number] 12:48:00 Test Item Value Reference Range Interpretation Comments Basophils # (test code 0.1 See_Comment [Aut omated message] The = Basophils #) system which generated this result tra nsmitted reference range : <=0.2. The reference r genesis was not used to int erpret this result as normal/abnormal . [facility] [id number] 12:48:00 Test Item Value Reference Range Interpretation Comments Eosinophils # (test code 0.1 See_Comment [A utomated message] The = Eosinophils #) system whic h generated this result tra nsmitted reference range : <=0.5. The reference r genesis was not used to int erpret this result as normal/abnormal . [facility] [id number] 12:48:00 Test Item Value Reference Range Interpretation Comments Lymphocytes # (test code = Lymphocytes 1.6 1.0-5.5 #) [facility] [id number] 12:48:00 Test Item Value Reference Range Interpretation Comments Monocytes # (test code 0.5 See_Comment [Aut omated message] The = Monocytes #) system which generated this result tra nsmitted reference range : <=0.8. The reference r genesis was not used to int erpret this result as normal/abnormal . [facility]
[2022-11-30 13:59] LABS: Absolute Lymphocytes (CBC) 1.3 K/uL (0.7-4.9); Lymphocytes % 23.4 % (15.3-44.8); MCV 101.5 fL (80-100); MPV 7.6 fL (7.6-11.3); RBC Red Blood Cell Count 4.04 M/uL (3.86-4.86)
[2022-11-30 14:11] LABS: Potassium 2.8 mEq/L (3.5-5.1)
[2022-11-30] MEDS ORDERED: POTASSIUM CL SA 10 MEQ TAB PO ONE (15:55)
--- NOTE | 2022-11-30 16:13 | EDPHYS ---
Physician Documentation [facility] Name: Billie Botello Age: 62 yrs Sex: Female : 1960 Arrival Date: 11/30/2022 Time: 13:21 Bed 15 Private MD: ED Physician Adrian Barnes HPI: 11/30 15:47 This 62 yrs old Female presents to ER via EMS with complaints of Hyperglycemia. kb 16:09 The patient or guardian reports hypoglycemia, that was potentially precipitated by no kb particular event, with the patient's symptoms witnessed by a bystander, Treatment prior to arrival includes: ingestion of sugary substance, ate candy. Onset: The symptoms/episode began/occurred just prior to arrival. Associated signs and symptoms: Pertinent positives: skin flushing. Current symptoms: In the emergency department the patient's symptoms have resolved, the patient is alert and fully oriented, has normal speech, has normal responsiveness, has no confusion. The patient has experienced similar episodes in the past, a few times. The patient has not recently seen a physician. Pt reports she was at [facility] when she felt her blood sugar drop. States she felt flush, which happens when he blood sugar goes down. Someone gave her a candy bar and juice and called EMS.. Historical: - Allergies: 13:31 Bactrim; ld1 13:31 Sulfa (Sulfonamide Antibiotics); ld1 13:31 Trazodone; ld1 13:31 TRIMETHOPRIM; ld1 - PMHx: 13:31 Diabetes - NIDDM; etoh abuse; High Cholesterol; Hypertension; Pancreatitis; stroke; ld1 - PSHx: 13:31 Appendectomy; section; left foot; right wrist; Tonsillectomy; ld1 - Immunization history:: Adult Immunizations up to date, Client reports receiving the 2nd dose of the Covid vaccine. - Social history:: Smoking status: Patient reports the use of cigarette tobacco products, smokes one-half pack cigarettes per day, Patient uses alcohol, occasionally. ROS: 15:19 Constitutional: Negative for fever, chills, and weight loss. kb 16:05 All other systems are negative. kb Exam: 16:05 Constitutional: This is a well developed, well nourished patient who is awake, alert, kb and in no acute distress. Head/Face: Normocephalic, atraumatic. ENT: Moist Mucous membranes Cardiovascular: Regular rate and rhythm with a normal S1 and S2. No gallops, murmurs, or rubs. No pulse deficits. Respiratory: Respirations even and unlabored. No increased work of breathing. Talking in full sentences Abdomen/GI: Soft, non-tender. No distention Skin: Warm, dry with normal turgor. Normal color. MS/ Extremity: Pulses equal, no cyanosis. Neurovascular intact. Full, normal range of motion. 16:05 ECG was reviewed by the Attending Physician. 16:05 Neuro: Exam negative for acute changes. Vital Signs: 13:29 BP 116 / 91; Pulse 91; Resp 18; Temp 98.3(O); Pulse Ox 99% on R/A; Weight 73.94 kg; ld1 Height 5 ft. 3 in. ; Pain 0/10; 15:45 BP 116 / 94; Pulse 74; Resp 18; Pulse Ox 98% on R/A; ld1 13:29 Body Mass Index 28.87 (73.94 kg, 160.02 cm) ld1 13:29 Pain Scale: Adult ld1 MDM: 13:30 Patient medically screened. kb 16:11 Differential diagnosis: hypoglycemic episode. Data reviewed: vital signs, nurses notes. kb Management of patient was discussed with the following: Dr Barnes. Historians other than the Patient: EMS: [facility]. Counseling: I had a detailed discussion with the patient and/or guardian regarding: the historical points, exam findings, and any diagnostic results supporting the discharge/admit diagnosis, lab results, the need for outpatient follow up, a family practitioner, to return to the emergency department if symptoms worsen or persist or if there are any questions or concerns that arise at home. 11/30 13:31 Order name: CBC with Diff; Complete Time: 14:01 kb 11/30 13:31 Order name: Basic Metabolic Panel; Complete Time: 14:13 kb 11/30 16:03 Order name: Glucose, Ancillary Testing; Complete Time: 16:05 EDMS 11/30 15:20 Order name: Diet Ada [address]; Complete Time: 15:20 kb 11/30 15:20 Order name: EKG; Complete Time: 15:20 kb 11/30 13:31 Order name: IV Start; Complete Time: 13:51 kb 11/30 15:20 Order name: EKG - Nurse/Tech; Complete Time: 15:49 kb 11/30 15:47 Order name: Blood Glucose Level; Complete Time: 15:51 kb EC:05 Rate is 72 beats/min. Rhythm is regular. QRS [place] is Normal. MS interval is normal at kb 186 msec. QRS interval is normal at 68 msec. QT interval is normal at 444 msec. 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
--- NOTE | 2022-11-30 16:13 | ER ---
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 "I think my glucose was ld1 low so I ate a candy bar and juice." Pt denies pain. Coronavirus screen: At this time, the client does not indicate any symptoms associated with coronavirus-19. Ebola Screen: No symptoms or risks identified at this time. Initial Sepsis Screen: Does the patient meet any 2 criteria? No. Patient's initial sepsis screen is negative. Does the patient have a suspected source of infection? No. Patient's initial sepsis screen is negative. Risk Assessment: Do you want to hurt yourself or someone else? Patient reports no desire to harm self or others. Onset of symptoms was November 30, 2022 at 13:31. 13:29 Method Of Arrival: EMS: [facility] ld1 13:29 Acuity: NIKA 3 ld1 Triage Assessment: 13:31 General: Appears in no apparent distress. comfortable, Behavior is calm, cooperative, ld1 appropriate for age. Pain: Denies pain. EENT: No signs and/or symptoms were reported regarding the EENT system. Neuro: Level of Consciousness is awake, alert, obeys commands, Oriented to person, place, time, situation. Cardiovascular: Capillary refill < 3 seconds Patient's skin is warm and dry. Respiratory: Airway is patent Respiratory effort is even, unlabored. GI: Abdomen is flat, non-distended. : No signs and/or symptoms were reported regarding the genitourinary system. Derm: No signs and/or symptoms reported regarding the dermatologic system. Musculoskeletal: No signs and/or symptoms reported regarding the musculoskeletal system. Historical: - Allergies: 13:31 Bactrim; ld1 13:31 Sulfa (Sulfonamide Antibiotics); ld1 13:31 Trazodone; ld1 13:31 TRIMETHOPRIM; ld1 - PMHx: 13:31 Diabetes - NIDDM; etoh abuse; High Cholesterol; Hypertension; Pancreatitis; stroke; ld1 - PSHx: 13:31 Appendectomy; section; left foot; right wrist; Tonsillectomy; ld1 - Immunization history:: Adult Immunizations up to date, Client reports receiving the 2nd dose of the Covid vaccine. - Social history:: Smoking status: Patient reports the use of cigarette tobacco products, smokes one-half pack cigarettes per day, Patient uses alcohol, occasionally. Screenin:32 [facility] ED Fall Risk Assessment (Adult) History of falling in the last 3 months, ld1 including since admission No falls in past 3 months (0 pts). [facility] ED Fall Risk Assessment (Adult) History of falling in the last 3 months, including since admission. Abuse screen: Denies threats or abuse. Denies injuries from another. Nutritional screening: No deficits noted. Tuberculosis screening: No symptoms or risk factors identified. Assessment: 13:32 Reassessment: see triage assessment. ld1 13:41 Reassessment: *nurses alert* - PT HAS PERSONAL FOOD IN ER BREAK ROOM REFRIGERATOR WITH ld1 PATIENT LABEL ON IT. pt was picked up at [employer] and spent last 20$ on food. Charge nurse notified of situation. Vital Signs: 13:29 BP 116 / 91; Pulse 91; Resp 18; Temp 98.3(O); Pulse Ox 99% on R/A; Weight 73.94 kg; ld1 Height 5 ft. 3 in. ; Pain 0/10; 15:45 BP 116 / 94; Pulse 74; Resp 18; Pulse Ox 98% on R/A; ld1 13:29 Body Mass Index 28.87 (73.94 kg, 160.02 cm) ld1 13:29 Pain Scale: Adult ld1 ED Course: 13:25 Patient arrived in ED. ld1 13:30 Yamilka Martin FNP-C is PHCP. kb 13:30 Adrian Barnes MD is Attending Physician. kb 13:31 Triage completed. ld1 13:31 Arm band placed on right wrist. ld1 13:32 Patient has correct armband on for positive identification. Placed in gown. Bed in low ld1 position. Call light in reach. Side rails up X2. electronic device monitor on. Pulse ox on. NIBP on. Door closed. Noise minimized. Warm blanket given. 13:32 No provider procedures requiring assistance completed. ld1 13:35 Era Boston, RN is Primary Nurse. ld1 13:53 Basic Metabolic Panel Sent. zm 13:53 CBC with Diff Sent. zm 13:53 Inserted saline lock: 20 gauge in right antecubital area, using aseptic technique. zm Blood collected. 16:35 IV discontinued, intact, bleeding controlled, No redness/swelling at site. iw Administered Medications: 15:49 Drug: Potassium Chloride PO 40 mEq Route: PO; ld1 Medication: 13:32 VIS not applicable for this client. ld1 Outcome: 16:12 Discharge ordered by . kb 16:34 Discharged to home via wheelchair, with family. iw 16:34 Condition: stable 16:34 Discharge instructions given to patient, Instructed on discharge instructions, follow up and referral plans. Demonstrated understanding of instructions, follow-up care. 16:35 Patient left the ED. iw Signatures: Yamilka Martin, HANDKERCHIEF SAMPLE CLERK-C HANDKERCHIEF SAMPLE CLERK-Ckb Celia Anderson, RN TEE Era Boston, TEE RN ld1 Liz Wen
[2022-11-30 16:53] VITALS: TEMP 98.3
[2022-11-30 16:59] VITALS: BP 116/94; O2SAT 98
--- NOTE | 2022-12-01 07:07 | EKG ---
Test Date: 2022-11-30 Test Time: 16:03:28 Apron Operator: YURI MEASUREMENT RESULTS: Intervals: Rate: 72 [place]: 186 QRSD: 68 QT: 406 QTc: 444 [place]: P: 56 [place]: 186 QRS: 32 T: 13 INTERPRETIVE STATEMENTS: Normal sinus rhythm Low voltage QRS Borderline ECG Compared to ECG 10/04/2022 13:44:46 Low QRS voltage now present Atrial premature complex(es) no longer present Myocardial infarct finding no longer present Electronically Signed On 12-01-22 07:06:29 CDT by Doug Gold
== END 2022-11-30 16:35 | disposition home or self-care (01) ==
LOC: ER 13:21
DX: E11.649 Type 2 diabetes mellitus with hypoglycemia without coma (principal); F17.210 Nicotine dependence, cigarettes, uncomplicated
CPT/HCPCS: 36415; 80048; 82947; 85025; 93005; 99284